=== PATIENT | male | born 1950 | race Caucasian/White ===

== ENCOUNTER 2019-06-02 17:16 | Emergency (ER) | payer MEDICARE, SELFPAY ==
[2019-06-02 17:23] VITALS: BP 137/74; PULSE 97; RESP 20; TEMP 36.9; O2SAT 98
--- NOTE | 2019-06-02 17:38 | ED.HA ---
HPI - Headache General Chief Complaint: Headache Stated Complaint: headache/chronic ear & sinus issues Time Seen by Provider: 06/02/19 17:19 Source: patient Mode of arrival: ambulatory Limitations: no limitations History of Present Illness HPI Narrative: This is a 68 year old male that presents to the ER for sinus problems x 1 month. Reports he has been on multiple antibiotics and a steroid taper for this. Reports he has seen by an ENT doctor and was offered surgery, but will have to be off of his chemotherapy for surgery. He has been trying to do Neti pots which helped at first, but are not anymore. He has been having headaches due to sinus issues. Reports he has had a left sided headache since last night. He has been taking Fioricet and ibuprofen for headaches at home with some relief. Denies fever, vision changes, vomiting, stiff neck, chest pain, shortness of breath, or cough. Related Data Home Medications Medication Instructions Recorded Confirmed cyanocobalamin (vitamin B-12) 1,000 mcg PO DAILY 01/22/19 05/18/19 1,000 mcg capsule ibrutinib 420 mg tablet 420 mg PO DAILY 01/22/19 05/18/19 fluticasone propionate 50 1 spray NASAL BID ml 02/12/19 05/18/19 mcg/actuation nasal spray,suspension ibuprofen 800 mg tablet 800 mg PO Q6H PRN 02/12/19 05/18/19 acyclovir 200 mg capsule 400 mg PO BID cap 05/13/19 05/18/19 ascorbate calcium (vitamin C) 500 500 mg PO DAILY 05/13/19 05/18/19 mg tablet cholecalciferol (vitamin D3) 100 4,000 unit PO DAILY 05/13/19 05/18/19 mcg (4,000 unit) capsule magnesium 30 mg tablet 30 mg PO DAILY 05/13/19 05/18/19 zinc 50 mg tablet 50 mg PO DAILY 05/13/19 05/18/19 Allergies Allergy/AdvReac Type Severity Reaction Status Date / Time cefuroxime Allergy Unknown Rash Verified 06/02/19 17:40 codeine Allergy Unknown Nausea Verified 07/29/18 11:42 Review of Systems Review of Systems: Narrative: CONSTITUTIONAL: Denies fever, chills ENT: Reports rhinorrhea, congestion, and otalgia. Denies sore throat CARDIOVASCULAR: Denies chest pain RESPIRATORY: Denies cough or dyspnea. All systems reviewed & are unremarkable except as noted in HPI and below PMFSH Past Medical History Medical History (Updated 06/02/19 @ 19:27 by Amie Carpenter PA-C) Acute conjunctivitis of both eyes Chronic anxiety Fatigue due to treatment Headache Major depression Mixed hyperlipidemia Otitis externa in other diseases classified elsewhere, right ear Otitis media of left ear Otitis media of right ear Tinnitus Vitamin B12 deficiency anemia Family History Family History (Updated 07/29/18 @ 11:48 by DOCTOR UNKNOWN) Father Diabetes mellitus Family history of glaucoma, Onset Age: 85 Family history of cardiovascular disease, Onset Age: 85 Mother Family history of allergic disorder, Onset Age: 84 Social History Social History Smoking status: Never smoker Alcohol intake: current Exam Narrative: Exam Narrative: GENERAL: Well-appearing, well-nourished, and in no acute distress. HEAD: Normocephalic, atraumatic. EYES: EOMI. ENT: Nares clear, no rhinorrhea or epistaxis. Mucous membranes moist. Oropharynx without tonsillar hypertrophy exudate or other lesions. Left TM mildly erythematous and bulging. Left external auditory canal mildly swollen and irritated. Right external auditory canal normal. Right TM with mild effusion, but light reflex is present, no erythema NECK: Supple. No adenopathy or masses. Normal ROM CHEST: Clear to auscultation. No respiratory distress. No wheezes rales or rhonchi HEART: Regular rate and rhythm. No murmur heard. Normal peripheral pulses. EXTREMITIES: Normal range of motion. No edema. SKIN: Warm, dry, no rash. NEURO: No focal deficits. Alert and oriented x3. CN II-XII grossly intact PSYCH: Normal mood and affect Course Reevaluation(s) Reevaluation #1: Patient resting in room comfortably. Reports relief of headache Date: 06/02/19 Time: 19:25 Vit
[2019-06-02] MEDS: SODIUM CHLORIDE 0.9% IV 1,000 ML 999 ML IV CONT (18:03)
[2019-06-02] MEDS: METOCLOPRAMIDE HCL INJ 10 MG/2 ML VIAL IV PUSH (18:04)
[2019-06-02 19:53] VITALS: BP 99/53; PULSE 77; RESP 16; O2SAT 97
== END 2019-06-02 19:55 | disposition home or self-care (01) ==
PROVIDERS: Emergency Provider Emergency Medicine; PCP Family Medicine
DX: H65.22 Chronic serous otitis media, left ear (principal); R51 Headache; H60.502 Unspecified acute noninfective otitis externa, left ear; F41.9 Anxiety disorder, unspecified; M32.9 Systemic lupus erythematosus, unspecified; E78.5 Hyperlipidemia, unspecified; D51.9 Vitamin B12 deficiency anemia, unspecified
CPT/HCPCS: 96361; 96374; 96375; 99284; J0131; J1100; J1200; J2765; J7030

== ENCOUNTER 2019-06-03 09:42 | Outpatient (CLI) | payer MEDICARE, SELFPAY ==
--- NOTE | ~2019-06-03 | MR_ITS ---
EXAMINATION: MR brain/brain stem wo/w con DATE: 06/03/2019 12:45 INDICATION: Otitis media, unspecified, right ear. Headache. TECHNIQUE: Magnetic resonance imaging (MRI) of the brain and brainstem was performed without and with 20 mL MultiHance intravenous contrast. Sequences included sagittal and axial T1-weighted FSE, axial diffusion-weighted FS EPI, axial T2*-weighted GRE, axial T2-weighted FLAIR Propeller, and axial T2-we ighted Propeller. Postcontrast sequences included axial and coronal T1-weighted FSE. Apparent diffusi on coefficient (ADC) maps were created. COMPARISON: Head CTA 04/23/2008, sinuses CT 02/20/2019 FINDINGS: There is no intracranial hemorrhage, acute infarction, or abnormal intracranial mass lesion . The ventricles are normal in size. There are bilateral otomastoid effusions. There is mucosal thick ening in the paranasal sinuses including complete opacification of left maxillary sinus. The orbits a re normal. IMPRESSION: 1. Normal brain. 2. Bilateral otomastoid effusions. Reviewed, dictated and finalized at location A.
[2019-06-03 12:05] LABS: Estimated Glomerular Filt Rate > 60
== END 2019-06-03 09:43 | disposition home or self-care (01) ==
PROVIDERS: PCP Family Medicine; Visit Provider Family Medicine
DX: H66.91 Otitis media, unspecified, right ear (principal); R51 Headache; R93.0 Abnormal findings on diagnostic imaging of skull and head, not elsewhere classified
CPT/HCPCS: 36415; 70553; A9577

== ENCOUNTER 2019-06-06 19:27 | Emergency (ER) | payer MEDICARE, SELFPAY ==
[2019-06-06 19:40] VITALS: BP 141/71; PULSE 102; RESP 20; TEMP 36.9; O2SAT 100
--- NOTE | 2019-06-06 19:47 | ED.EAR ---
HPI - Ear Problem General Chief complaint: Ear Stated complaint: ear infection symptoms Time Seen by Provider: 06/06/19 19:42 Source: patient Mode of arrival: ambulatory Limitations: no limitations History of Present Illness HPI Narrative: The pt is a 68 y/o male who presents to the ED c/o bilateral ear pain onset 3 weeks ago. Pt states that his pain varies typically lies on one side, but has been in both ears. Pt notes that he presented to this ED on 06/02/19. Pt states that he is on his third antibiotic without any relief. He notes he is on Clindamycin currently after being on Clindamycin and Doxycycline. The pt received an MRI from Dr. Ventura without any serious concerns, so he was recommended to an ENT. Pt states that he will be seeing Dr. Wilcox on 06/08/19. Pt reports decreased hearing, dizziness, and nasal congestion. Pt has also been taking Ibuprofen without relief. MD Complaint: ear pain Location: bilateral Relieving factors: nothing Associated symptoms ear: decreased hearing and other (Dizziness, nasal congestion) Treatment prior to arrival: other (Antibiotics, Ibuprofen) Related Data Home Medications Medication Instructions Recorded Confirmed cyanocobalamin (vitamin B-12) 1,000 mcg PO DAILY 01/22/19 05/18/19 1,000 mcg capsule ibrutinib 420 mg tablet 420 mg PO DAILY 01/22/19 05/18/19 fluticasone propionate 50 1 spray NASAL BID ml 02/12/19 05/18/19 mcg/actuation nasal spray,suspension ibuprofen 800 mg tablet 800 mg PO Q6H PRN 02/12/19 05/18/19 acyclovir 200 mg capsule 400 mg PO BID cap 05/13/19 05/18/19 ascorbate calcium (vitamin C) 500 500 mg PO DAILY 05/13/19 05/18/19 mg tablet cholecalciferol (vitamin D3) 100 4,000 unit PO DAILY 05/13/19 05/18/19 mcg (4,000 unit) capsule magnesium 30 mg tablet 30 mg PO DAILY 05/13/19 05/18/19 zinc 50 mg tablet 50 mg PO DAILY 05/13/19 05/18/19 Allergies Allergy/AdvReac Type Severity Reaction Status Date / Time cefuroxime Allergy Unknown Rash Verified 06/02/19 17:40 codeine Allergy Unknown Nausea Verified 07/29/18 11:42 Review of Systems Review of Systems: All systems reviewed & are unremarkable except as noted in HPI and below ENT: Reports nasal congestion and Reports other (Decreased hearing, bilateral ear pain) Neurologic: Reports dizziness PMFSH Past Medical History Medical History (Updated 06/06/19 @ 21:28 by Jared Wong MD) Acute conjunctivitis of both eyes Chronic anxiety Fatigue due to treatment Headache Major depression Mixed hyperlipidemia Otitis externa in other diseases classified elsewhere, right ear Otitis media of left ear Otitis media of right ear Tinnitus Vitamin B12 deficiency anemia Surgical History Surgical History (Updated 06/06/19 @ 19:53 by Denilson Ledesma) History of cholecystectomy S/P cervical spinal fusion Family History Family History (Updated 07/29/18 @ 11:48 by DOCTOR UNKNOWN) Father Diabetes mellitus Family history of glaucoma, Onset Age: 85 Family history of cardiovascular disease, Onset Age: 85 Mother Family history of allergic disorder, Onset Age: 84 Social History Social History Smoking status: Never smoker Alcohol intake: current Gender identity (if verbalized by the patient): Male Comments PCP: Dr. Ventura Exam Narrative: Exam Narrative: GENERAL: Uncomfortable-appearing, well-nourished, and in no acute distress. HEAD: Normocephalic, atraumatic. ENT: Mucous membranes moist. Bilateral tympanic membranes inflamed with purulent material behind the right tympanic membrane. No perforation or drainage. The auditory canal is free of debris. External ear appears normal. No tenderness over the mastoids bilaterally. No redness overlying the mastoids. NECK: Anterior cervical lymphadenopathy at the angle of the mandible bilaterally. NEURO: No facial droop. Alert and oriented x3. PSYCH: Normal mood and affect. Course Consultations Consultation #1:
[2019-06-06] MEDS: MORPHINE SULFATE 4 MG/ML INJ IM (20:06)
[2019-06-06 21:09] VITALS: BP 120/64; PULSE 96; RESP 18; O2SAT 98
[2019-06-06] MEDS: predniSONE 20 MG TABLET 60 MG PO (21:52)
[2019-06-06 21:53] VITALS: BP 138/72; PULSE 78; RESP 20; O2SAT 99
== END 2019-06-06 22:04 | disposition home or self-care (01) ==
PROVIDERS: Emergency Provider Emergency Medicine; PCP Family Medicine
DX: H66.93 Otitis media, unspecified, bilateral (principal); E78.2 Mixed hyperlipidemia; D51.9 Vitamin B12 deficiency anemia, unspecified; Z98.1 Arthrodesis status
CPT/HCPCS: 96372; 99283; A9270; J2270; J7512

== ENCOUNTER → 2020-04-12 08:36 | Outpatient (CLI) | payer MEDICARE, SELFPAY ==
[2020-04-13 18:18] LABS: SARS-CoV-2 RNA PCR Negative
== END ==
PROVIDERS: PCP Family Medicine; Visit Provider Family Medicine
DX: Z20.822 Contact with and (suspected) exposure to COVID-19 (principal); J01.90 Acute sinusitis, unspecified
CPT/HCPCS: C9803; U0003; U0005

== ENCOUNTER → 2020-12-08 02:52 | Outpatient (CLI) | payer MEDICARE, SELFPAY ==
[2020-12-08 17:37] LABS: SARS-CoV-2 RNA PCR Negative
== END ==
PROVIDERS: PCP Family Medicine; Visit Provider Family Medicine
DX: Z20.822 Contact with and (suspected) exposure to COVID-19 (principal)
CPT/HCPCS: C9803; U0003; U0005

== ENCOUNTER → 2021-03-08 07:27 | Outpatient (CLI) | payer MEDICARE, SELFPAY ==
[2021-03-09 14:36] LABS: SARS-CoV-2 RNA PCR Negative
== END ==
PROVIDERS: PCP Family Medicine; Visit Provider Family Medicine
DX: J02.9 Acute pharyngitis, unspecified (principal); Z20.822 Contact with and (suspected) exposure to COVID-19
CPT/HCPCS: C9803; U0003; U0005

== ENCOUNTER → 2022-01-23 18:31 | Outpatient (CLI) | payer MEDICARE, SELFPAY ==
--- NOTE | ~2022-01-23 | XR_ITS ---
XR chest 2V 01/23/2022 18:43 Indication: Acute bronchitis Procedure: 2 view chest Comparison: 08/12/2018 Findings: Heart size normal. There is chronic lingular atelectasis/scarring. There are calcified righ t hilar lymph nodes consistent with chronic granulomatous disease. No acute focal pneumonia, edema or pneumothorax. No acute osseous abnormality. Impression: 1: No acute cardiopulmonary disease. Reviewed, dictated and finalized at location B. 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
== END ==
LOC: EXPTROY 18:30 → EXPTRAD 18:32
PROVIDERS: PCP Family Medicine; Visit Provider Family Medicine
DX: J20.9 Acute bronchitis, unspecified (principal)
CPT/HCPCS: 71046

== ENCOUNTER 2022-08-13 15:07 | Outpatient (CLI) | payer MEDICARE, SELFPAY ==
--- NOTE | ~2022-08-13 | XR_ITS ---
XR lumbar spine min 4V 08/13/2022 15:55 Indication: Back pain Procedure: 5 views of the lumbar spine Comparison: No prior studies for comparison. Findings: There is disc narrowing at all lumbar levels. Vertebral body heights are maintained. There is advanced facet hypertrophy of the mid and lower lumbar spine. There are bilateral renal stones, la rgest in the left kidney measuring approximately 3.2 cm. There is atherosclerosis of the aorta. No ev idence for spondylolisthesis. There are cholecystectomy clips. There is mild dextroscoliosis. Impression: 1: Moderate-severe lumbar spondylosis. 2: Bilateral nephrolithiasis. Reviewed, dictated and finalized at location L. Impression: 1: Moderate-severe lumbar spondylosis. 2: Bilateral nephrolithiasis.
== END 2022-08-13 15:08 | disposition home or self-care (01) ==
PROVIDERS: PCP Family Medicine; Visit Provider Family Medicine
DX: M47.816 Spondylosis without myelopathy or radiculopathy, lumbar region (principal); M54.41 Lumbago with sciatica, right side; G89.29 Other chronic pain; N20.0 Calculus of kidney
CPT/HCPCS: 72110

== ENCOUNTER 2024-02-17 00:23 | Day surgery (SDC) | payer MEDICARE, SELFPAY ==
[2024-01-02 12:07] VITALS: BMI 32.4
[2024-02-10 14:25] VITALS: BMI 32.6
--- NOTE | 2024-02-17 07:42 | P.PNAN_ITS ---
Anes - Initial Pre Proc Eval Procedure: Operation Date: 02/17/24 09:00 Proposed Procedures p Screening Colonoscopy - Gómez Muniz MD Date/Time: 02/17/24 07:42 Surgeon: Gómez Muniz MD Pre Op Diagnosis: hx of colon polyps Patient Data Age: 73 Gender: M Height: 1.93 m Weight: 121.6 kg Allergies Allergy/AdvReac Type Severity Reaction Status Date / Time cefuroxime Allergy Intermediate Rash Verified 02/10/24 14:20 codeine AdvReac Intermediate Nausea Verified 02/10/24 14:20 Home Medications ?Medication ?Instructions ?Recorded ?Confirmed ?Type fluticasone propionate 50 1 spray intranasal BID PRN DRYNESS 02/12/19 02/10/24 History mcg/actuation nasal spray,suspension (Allergy Relief (fluticasone)) ibuprofen 800 mg tablet 800 mg PO Q6H PRN pain 02/12/19 02/10/24 History acyclovir 200 mg capsule 400 mg PO BID 05/13/19 02/10/24 History ascorbate calcium (vitamin C) 500 500 mg PO DAILY 05/13/19 02/10/24 History mg tablet cholecalciferol (vitamin D3) 100 4,000 unit PO DAILY 05/13/19 02/10/24 History mcg (4,000 unit) capsule acalabrutinib maleate 100 mg 100 mg PO BID 04/02/23 02/10/24 History tablet (Calquence (acalabrutinib maleate)) budesonide 0.5 mg/2 mL suspension 0.5 mg inhalation DAILY PRN Sinus 01/02/24 02/10/24 History for nebulization Symptoms levofloxacin 500 mg tablet 500 mg PO PRN PRN sinus infection 01/02/24 02/10/24 History trazodone 50 mg tablet 50 mg PO HS 01/02/24 02/10/24 History zinc 50 mg tablet 50 mg PO DAILY 01/02/24 02/10/24 History tamsulosin 0.4 mg capsule (Flomax) 0.4 mg PO QHS #30 caps 02/11/24 Rx Patient hx anesthesia problems: none Family hx anesthesia problems: none Results Review: All pre-operative results and documents have been reviewed as part of the pre-operative evaluation. FOR[facility]LY [facility], [facility] Past Medical History Medical History Bilateral otitis media Recurrent sinusitis Encounter for prostate cancer screening PSA normal at 1.09 on 03/09/2023. Chronic bilateral low back pain with right-sided sciatica Chronic lymphocytic leukemia WBC 10.8 on 03/09/2023. WBC 10.0, hemoglobin 14.7, platelets 171 on 10/12/2023. Cellulitis of left thigh Eczema of both hands BPH without obstruction/lower urinary tract symptoms PSA 2.1 on 07/16/2020. PSA 1.55 on 02/06/2022. Encounter for hepatitis C screening test for low risk patient (02/06/22) Hepatitis-C screening was negative on 02/06/2022. Obesity (BMI 30.0-34.9) BMI 34.0-34.9,adult Acute bronchitis Chest x-ray on 01/23/2022 revealed chronic lingular atelectasis or scarring with chronic calcified hilar lymph nodes on the right from chronic granulomatous disease. COVID-19 (09/03/21) tested positive 09/06/2021 Pharyngitis BMI 37.0-37.9, adult Insomnia Low serum IgG for age IgG level as 721 On 09/12/2019 after 6 cycles of infusions with last dose on 08/08/2023. Microscopic hematuria trace blood on urinalysis 12/17/2020. Trace blood with 3-10 RBCs on urinalysis 03/09/2023. Urinalysis normal on 10/12/2023. Chronic left shoulder pain Chronic low back pain without sciatica Abnormal fasting glucose fasting glucose 123 with hemoglobin A1c 5.9 on 12/17/2020. Glucose 98 with hemoglobin A1c 6.0 on 02/06/2022. Glucose 113 with hemoglobin A1c 5.7 on 07/25/2022. Fasting glucose 114 with hemoglobin A1c 5.5 on 03/09/2023. Fasting glucose 120 with hemoglobin A1c 5.9 and urine microalbumin negative on 10/12/2023. Polyp of colon Colon polyp [facility] February, with recheck in 3 years BMI 36.0-36.9,adult Hypogonadism male total testosterone 301 with free testosterone normal at 66.3 on 12/17/2020 Male erectile dysfunction, unspecified Exposure to COVID-19 virus Otitis externa in other diseases classified elsewhere, right ear Headache Tinnitus Chronic anxiety Major depression Otitis media of right ear Acute conjunctivitis of both eyes Mixed hyperlipidemia Total cholesterol 151, triglycerides 93, HDL low at 36 and LDL normal at 96 on 02/06/2022. Total cholesterol 144, triglycerides 86, HDL 36, LDL 90 with ratio 4.0 on 07/25/2022. Cholesterol 158, triglycerides 82, HDL 38, LDL 103 with ratio 4.2 on 03/09/2023. Cholesterol 155, triglycerides 89, HDL 34, LDL 103 with ratio 4.6 on 10/12/2023. Vitamin B12 deficiency anemia Level 686 on 02/06/2022. Level normal at 450 with hemoglobin 14.9 on 03/09/2023. Level low at 341 with hemoglobin 14.7 on 10/12/2023. 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 Surgical History Surgical History S/P cervical spinal fusion History of cholecystectomy Family History Family History Father Diabetes mellitus Family history of glaucoma, Onset Age: 85 Family history of cardiovascular disease, Onset Age: 85 Mother Family history of allergic disorder, Onset Age: 84 Social History Social History Smoking packs per day: 1 Smoking cigarettes per day: 20.0 Years smoked: 25 Smoking pack-years: 25.00 Smoking status: Former smoker Tobacco type: cigarettes Alcohol intake: former Alcohol use details: 6 pk per month Substance use: former Substance use type: does not use Lack of Transportation: No Lack of Food: Never True Current Housing: I Have Housing Concerned About Future Housing: No Difficulty Paying Gas/Electric Bills: No Difficulty Paying for Meds: No Currently Unemployed: No Education: Trade/Vocational Certificate Difficulty w/ Childcare or Family Care: No Living arrangements: with family Gender identity (if verbalized by the patient): Male Spiritual care concerns: No Anes - Eval Final PreProcedure Day of Procedure 02/17/24 07:42 Results Review: All pre-operative results and documents have been reviewed as part of the pre- operative evaluation. Informed Consent: The patient's anesthetic plan and its attendant risks and benefits were discussed with the patient/family/POA. Questions were solicited and answers provided to the satisfaction of the patient/family/POA.
[2024-02-17 08:15] VITALS: BP 115/62; PULSE 79; RESP 18; TEMP 35.7; O2SAT 97
[2024-02-17] MEDS: LACTATED RINGERS 1,000 ML 150 ML IV CONT (08:26)
--- NOTE | 2024-02-17 08:30 | WPDANESEPPF ---
Anes - Initial Pre Proc Eval Procedure: Operation Date: 02/17/24 09:00 Proposed Procedures p Screening Colonoscopy - Gómez Muniz MD Date/Time: 02/17/24 08:30 Surgeon: Gómez Muniz MD Pre Op Diagnosis: hx of colon polyps Patient Data Age: 73 Gender: M Height: 1.93 m Weight: 120.4 kg Last Vital Signs Temp 35.7 C L 02/17/24 08:15 Pulse 79 02/17/24 08:15 Resp 18 02/17/24 08:15 BP 115/62 02/17/24 08:15 Pulse Ox 97 02/17/24 08:15 O2 Del Method Room Air 02/17/24 08:15 Allergies Allergy/AdvReac Type Severity Reaction Status Date / Time cefuroxime Allergy Intermediate Rash Verified 02/17/24 08:13 codeine AdvReac Intermediate Nausea Verified 02/17/24 08:13 Home Medications ?Medication ?Instructions ?Recorded ?Confirmed ?Type fluticasone propionate 50 1 spray intranasal BID PRN DRYNESS 02/12/19 02/17/24 History mcg/actuation nasal spray,suspension (Allergy Relief (fluticasone)) ibuprofen 800 mg tablet 800 mg PO Q6H PRN pain 02/12/19 02/17/24 History acyclovir 200 mg capsule 400 mg PO BID 05/13/19 02/17/24 History ascorbate calcium (vitamin C) 500 500 mg PO DAILY 05/13/19 02/17/24 History mg tablet cholecalciferol (vitamin D3) 100 4,000 unit PO DAILY 05/13/19 02/17/24 History mcg (4,000 unit) capsule acalabrutinib maleate 100 mg 100 mg PO BID 04/02/23 02/17/24 History tablet (Calquence (acalabrutinib maleate)) budesonide 0.5 mg/2 mL suspension 0.5 mg inhalation DAILY PRN Sinus 01/02/24 02/17/24 History for nebulization Symptoms levofloxacin 500 mg tablet 500 mg PO PRN PRN sinus infection 01/02/24 02/10/24 History trazodone 50 mg tablet 50 mg PO HS 01/02/24 02/17/24 History zinc 50 mg tablet 50 mg PO DAILY 01/02/24 02/17/24 History tamsulosin 0.4 mg capsule (Flomax) 0.4 mg PO QHS #30 caps 02/11/24 02/17/24 Rx Patient hx anesthesia problems: none Family hx anesthesia problems: none Results Review: All pre-operative results and documents have been reviewed as part of the pre-operative evaluation. [facility] Past Medical History Medical History Bilateral otitis media Recurrent sinusitis Encounter for prostate cancer screening PSA normal at 1.09 on 03/09/2023. Chronic bilateral low back pain with right-sided sciatica Chronic lymphocytic leukemia WBC 10.8 on 03/09/2023. WBC 10.0, hemoglobin 14.7, platelets 171 on 10/12/2023. Cellulitis of left thigh Eczema of both hands BPH without obstruction/lower urinary tract symptoms PSA 2.1 on 07/16/2020. PSA 1.55 on 02/06/2022. Encounter for hepatitis C screening test for low risk patient (02/06/22) Hepatitis-C screening was negative on 02/06/2022. Obesity (BMI 30.0-34.9) BMI 34.0-34.9,adult Acute bronchitis Chest x-ray on 01/23/2022 revealed chronic lingular atelectasis or scarring with chronic calcified hilar lymph nodes on the right from chronic granulomatous disease. COVID-19 (09/03/21) tested positive 09/06/2021 Pharyngitis BMI 37.0-37.9, adult Insomnia Low serum IgG for age IgG level as 721 On 09/12/2019 after 6 cycles of infusions with last dose on 08/08/2023. Microscopic hematuria trace blood on urinalysis 12/17/2020. Trace blood with 3-10 RBCs on urinalysis 03/09/2023. Urinalysis normal on 10/12/2023. Chronic left shoulder pain Chronic low back pain without sciatica Abnormal fasting glucose fasting glucose 123 with hemoglobin A1c 5.9 on 12/17/2020. Glucose 98 with hemoglobin A1c 6.0 on 02/06/2022. Glucose 113 with hemoglobin A1c 5.7 on 07/25/2022. Fasting glucose 114 with hemoglobin A1c 5.5 on 03/09/2023. Fasting glucose 120 with hemoglobin A1c 5.9 and urine microalbumin negative on 10/12/2023. Polyp of colon Colon polyp [facility] February, with recheck in 3 years BMI 36.0-36.9,adult Hypogonadism male total testosterone 301 with free testosterone normal at 66.3 on 12/17/2020 Male erectile dysfunction, unspecified Exposure to COVID-19 virus Otitis externa in other diseases classified elsewhere, right ear Headache Tinnitus Chronic anxiety Major depression Otitis media of right ear Acute conjunctivitis of both eyes Mixed hyperlipidemia Total cholesterol 151, triglycerides 93, HDL low at 36 and LDL normal at 96 on 02/06/2022. Total cholesterol 144, triglycerides 86, HDL 36, LDL 90 with ratio 4.0 on 07/25/2022. Cholesterol 158, triglycerides 82, HDL 38, LDL 103 with ratio 4.2 on 03/09/2023. Cholesterol 155, triglycerides 89, HDL 34, LDL 103 with ratio 4.6 on 10/12/2023. Vitamin B12 deficiency anemia Level 686 on 02/06/2022. Level normal at 450 with hemoglobin 14.9 on 03/09/2023. Level low at 341 with hemoglobin 14.7 on 10/12/2023. 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 Surgical History Surgical History S/P cervical spinal fusion History of cholecystectomy Family History Family History Father Diabetes mellitus Family history of glaucoma, Onset Age: 85 Family history of cardiovascular disease, Onset Age: 85 Mother Family history of allergic disorder, Onset Age: 84 Social History Social History Smoking packs per day: 1 Smoking cigarettes per day: 20.0 Years smoked: 25 Smoking pack-years: 25.00 Smoking status: Former smoker Tobacco type: cigarettes Alcohol intake: former Alcohol use details: 6 pk per month Substance use: former Substance use type: does not use Lack of Transportation: No Lack of Food: Never True Current Housing: I Have Housing Concerned About Future Housing: No Difficulty Paying Gas/Electric Bills: No Difficulty Paying for Meds: No Currently Unemployed: No Education: Trade/Vocational Certificate Difficulty w/ Childcare or Family Care: No Living arrangements: with family Gender identity (if verbalized by the patient): Male Spiritual care concerns: No Anes - Eval Final PreProcedure Day of Procedure 02/17/24 08:30 Patient weight: obese Heart: regular rate and rhythm Lungs: clear to auscultation Airway: Mallampati scale class II Neurological: alert and oriented Last oral intake: >/= 8 hours ASA classification: III Emergent: no Anesthetic plan: proceed Anesthesia type and monitoring: general GIVS and standard monitoring Results Review: All pre-operative results and documents have been reviewed as part of the pre-operative evaluation. Informed Consent: The patient's anesthetic plan and its attendant risks and benefits were discussed with the patient/family/POA. Questions were solicited and answers provided to the satisfaction of the patient/family/POA.
--- NOTE | 2024-02-17 08:51 | P.HP_ITS ---
H&P: HPI History of Present Illness Date/Time: 02/17/24 08:51 Chief Complaint: history of colon polyps Narrative: The patient has a history of colonic polyps, the last colonoscopy was in 2017. He has been dealing with lymphoma for several years, receiving intravenous immuneglobulin IV and acalabrutinib by oncology. Review of Systems Review of Systems: All systems reviewed & are unremarkable except as noted in HPI and below [facility] Past Medical History Medical History Bilateral otitis media Recurrent sinusitis Encounter for prostate cancer screening PSA normal at 1.09 on 03/09/2023. Chronic bilateral low back pain with right-sided sciatica Chronic lymphocytic leukemia WBC 10.8 on 03/09/2023. WBC 10.0, hemoglobin 14.7, platelets 171 on 10/12/2023. Cellulitis of left thigh Eczema of both hands BPH without obstruction/lower urinary tract symptoms PSA 2.1 on 07/16/2020. PSA 1.55 on 02/06/2022. Encounter for hepatitis C screening test for low risk patient (02/06/22) Hepatitis-C screening was negative on 02/06/2022. Obesity (BMI 30.0-34.9) BMI 34.0-34.9,adult Acute bronchitis Chest x-ray on 01/23/2022 revealed chronic lingular atelectasis or scarring with chronic calcified hilar lymph nodes on the right from chronic granulomatous disease. COVID-19 (09/03/21) tested positive 09/06/2021 Pharyngitis BMI 37.0-37.9, adult Insomnia Low serum IgG for age IgG level as 721 On 09/12/2019 after 6 cycles of infusions with last dose on 08/08/2023. Microscopic hematuria trace blood on urinalysis 12/17/2020. Trace blood with 3-10 RBCs on urinalysis 03/09/2023. Urinalysis normal on 10/12/2023. Chronic left shoulder pain Chronic low back pain without sciatica Abnormal fasting glucose fasting glucose 123 with hemoglobin A1c 5.9 on 12/17/2020. Glucose 98 with hemoglobin A1c 6.0 on 02/06/2022. Glucose 113 with hemoglobin A1c 5.7 on 07/25/2022. Fasting glucose 114 with hemoglobin A1c 5.5 on 03/09/2023. Fasting glucose 120 with hemoglobin A1c 5.9 and urine microalbumin negative on 10/12/2023. Polyp of colon Colon polyp [facility] February, with recheck in 3 years BMI 36.0-36.9,adult Hypogonadism male total testosterone 301 with free testosterone normal at 66.3 on 12/17/2020 Male erectile dysfunction, unspecified Exposure to COVID-19 virus Otitis externa in other diseases classified elsewhere, right ear Headache Tinnitus Chronic anxiety Major depression Otitis media of right ear Acute conjunctivitis of both eyes Mixed hyperlipidemia Total cholesterol 151, triglycerides 93, HDL low at 36 and LDL normal at 96 on 02/06/2022. Total cholesterol 144, triglycerides 86, HDL 36, LDL 90 with ratio 4.0 on 07/25/2022. Cholesterol 158, triglycerides 82, HDL 38, LDL 103 with ratio 4.2 on 03/09/2023. Cholesterol 155, triglycerides 89, HDL 34, LDL 103 with ratio 4.6 on 10/12/2023. Vitamin B12 deficiency anemia Level 686 on 02/06/2022. Level normal at 450 with hemoglobin 14.9 on 03/09/2023. Level low at 341 with hemoglobin 14.7 on 10/12/2023. 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 Surgical History Surgical History S/P cervical spinal fusion History of cholecystectomy Family History Family History Father Diabetes mellitus Family history of glaucoma, Onset Age: 85 Family history of cardiovascular disease, Onset Age: 85 Mother Family history of allergic disorder, Onset Age: 84 Social History Social History Smoking packs per day: 1 Smoking cigarettes per day: 20.0 Years smoked: 25 Smoking pack-years: 25.00 Smoking status: Former smoker Tobacco type: cigarettes Alcohol intake: former Alcohol use details: 6 pk per month Substance use: former Substance use type: does not use Lack of Transportation: No Lack of Food: Never True Current Housing: I Have Housing Concerned About Future Housing: No Difficulty Paying Gas/Electric Bills: No Difficulty Paying for Meds: No Currently Unemployed: No Education: Trade/Vocational Certificate Difficulty w/ Childcare or Family Care: No Living arrangements: with family Gender identity (if verbalized by the patient): Male Spiritual care concerns: No Meds Home Medications and Allergies Home Medications ?Medication ?Instructions ?Recorded ?Confirmed ?Type fluticasone propionate 50 1 spray intranasal BID PRN DRYNESS 02/12/19 02/17/24 History mcg/actuation nasal spray,suspension (Allergy Relief (fluticasone)) ibuprofen 800 mg tablet 800 mg PO Q6H PRN pain 02/12/19 02/17/24 History acyclovir 200 mg capsule 400 mg PO BID 05/13/19 02/17/24 History ascorbate calcium (vitamin C) 500 500 mg PO DAILY 05/13/19 02/17/24 History mg tablet cholecalciferol (vitamin D3) 100 4,000 unit PO DAILY 05/13/19 02/17/24 History mcg (4,000 unit) capsule acalabrutinib maleate 100 mg 100 mg PO BID 04/02/23 02/17/24 History tablet (Calquence (acalabrutinib maleate)) budesonide 0.5 mg/2 mL suspension 0.5 mg inhalation DAILY PRN Sinus 01/02/24 02/17/24 History for nebulization Symptoms levofloxacin 500 mg tablet 500 mg PO PRN PRN sinus infection 01/02/24 02/10/24 History trazodone 50 mg tablet 50 mg PO HS 01/02/24 02/17/24 History zinc 50 mg tablet 50 mg PO DAILY 01/02/24 02/17/24 History tamsulosin 0.4 mg capsule (Flomax) 0.4 mg PO QHS #30 caps 02/11/24 02/17/24 Rx Allergies Allergy/AdvReac Type Severity Reaction Status Date / Time cefuroxime Allergy Intermediate Rash Verified 02/17/24 08:13 codeine AdvReac Intermediate Nausea Verified 02/17/24 08:13 Vital Signs Vital Signs - 24 hr 02/17/24 08:15 Temperature 96.3 F L Pulse Rate 79 Respiratory Rate 18 Blood Pressure 115/62 Pulse Oximetry 97 Oxygen Delivery Room Air Exam Const: General: cooperative and healthy appearing Resp: Effort & Inspection: normal respiratory effort and able to speak in complete sentences Auscultation: clear to auscultation bilaterally Cardio: Rate: regular rate Rhythm: regular rhythm GI: Inspection: normal to inspection GI Palp: No No hepatosplenomegaly present Auscultation: normal bowel sounds Rectal Exam: deferred Skin: General skin exam: normal color Psych: Appearance: grossly normal Mental Status: mental status grossly normal Assessment and Plan Assessment and plan (1) Polyp of colon: Qualifiers: Colon polyp type: unspecified Colon location: unspecified part of colon Qualified Code(s): K63.5 - Polyp of colon Code(s): K63.5 - Polyp of colon Status: Acute Assessment and Plan: The patient is deemed a good candidate for the procedure. Consent signed. Will proceed.
[2024-02-17 09:23] VITALS: BP 100/65; PULSE 78; RESP 22; O2SAT 94
[2024-02-17 09:33] VITALS: BP 105/67; PULSE 78; RESP 17; O2SAT 95
[2024-02-17 09:43] VITALS: BP 117/75; PULSE 787; RESP 17; O2SAT 98
--- OUTSIDE RECORDS SUMMARY | 2024-02-22 08:26 | XMS_ITS | Encounter Summary ---
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 Pt states also has congestion x 2 weeks Encounter Details Date Type Department Care Team (Late st Contact Info) Description 11/02/2013 11:56 AM CDT - 11/02/2013 12:52 PM CDT Emergency ER at [address] [address] Left wrist sprain, initial encounter Discharge Disposition: Home or Self Care Social History Tobacco Use Types Packs/Day Years Used Date Smoking Tobacco: Never Alcohol Use Standard Drinks/Week Comments No 0 (1 standard drink = 0.6 oz pur e alcohol) Sex and Gender Information Value Date Recorded Sex Assigned at Not on file Gender Identity Not on file Sexual Orientation Not on file documented as of this encounter Last Filed Vital Signs Vital Sign Reading Time Taken Comments Blood Pressure 144/90 11/02/2013 12:42 PM CDT Pulse 80 11/02/2013 12:42 PM CDT Temperature 36.8 ??C (98.2 ??F) 11/02/2013 11:47 AM C DT Respiratory Rate 15 11/02/2013 12:42 PM CDT Oxygen Saturation 98% 11/02/2013 12:42 PM CDT Inhaled Oxygen Concentration - - Weight 145.2 kg (320 lb) 11/02/2013 11:47 AM CDT Height 193 cm (6' 4 ) 11/02/2013 11:47 AM CDT Body Mass Index 38.95 11/02/2013 11:47 AM CDT documented in this encounter Discharge Instructions * Discharge Instructions* Saravanan Mayes PA - 11/02/2013 12:31 PM CDT Images from the original note were not included. Joint Sprain A sprain is a tear or stretch in the ligaments that hold a joint together. Severe sprains may need as long as 3-6 weeks of immobilization and/or exercises to heal completely. Sprained joints should be rested and protected. If not, they can become unstable and prone to re-injury. Proper treatment can reduce your pain, shorten the period of disability, and reduce the risk of repeated injuries. TREATMENT ?? Rest and elevate the injured joint to reduce pain and swelling. ?? Apply ice packs to the injury for 20-30 minutes every 2-3 hours for the next 2-3 days. ?? Keep the injury wrapped in a compression bandage or splint as long as the joint is painful or asinstructed by your caregiver. ?? Do not use the injured joint until it is completely healed to prevent re- injury and chronic instability. Follow the instructions of your caregiver. ?? Long-term sprain management may require exercises and/or treatment by a physical therapist. Taping or special braces may help stabilize the joint until it is completely better. SEEK MEDICAL CARE IF: ?? You develop increased pain or swelling of the joint. ?? You develop increasing redness and warmth of the joint. ?? You develop a fever. ?? It becomes stiff. ?? Your hand or foot gets cold or numb. Document Released: 03/28/2005 Document Revised: 05/12/2012 Document Reviewed: 03/07/2009 ExitCare?? Patient Information ??2014 [employer]. Wrist Pain Wrist injuries are frequent in adults and children. A sprain is an injury to the ligaments that hold your bones together. A strain is an injury to muscle or muscle cord-like structures (tendons) fromstretching or pulling. Generally, when wrists are moderately tender to touch following a fall or injury, a break in the bone (fracture) may be present. Most wrist sprains or strains are better in 3 to 5 days, but complete healing may take several weeks. HOME CARE INSTRUCTIONS ?? Put ice on the injured area. ?? Put ice in a plastic bag. ?? Place a towel between your skin and the bag. ?? Leave the ice on for 15-20 minutes, 3-4 times a day, for the first 2 days. ?? Keep your arm raised above the level of your heart whenever possible to reduce swelling and pain. ?? Rest the injured area for at least 48 hours or as directed by your caregiver. ?? If a splint or elastic bandage has been applied, use it for as long as directed by your caregiver or until seen by a caregiver for a follow-up exam. ?? Only take [id number] or prescription medicines for pain, discomfort, or fever as directed by your caregiver. ?? Keep all follow-up appointments. You may need to follow up with a specialist or have follow-up X-rays. Improvement in pain level is not a guarantee that you did not fracture a bone in your wrist. The only way to determine whether or not you have a broken bone is by X-ray. SEEK IMMEDIATE MEDICAL CARE IF: ?? Your fingers are swollen, very red, white, or cold and blue. ?? Your fingers are numb or tingling. ?? You have increasing pain. ?? You have difficulty moving your fingers. MAKE SURE YOU: ?? Understand these instructions. ?? Will watch your condition. ?? Will get help right away if you are not doing well or get worse. Document Released: 11/28/2005 Document Revised: 05/12/2012 Document Reviewed: 04/11/2011 ExitCare?? Patient Information ??2013 [employer]. documented in this encounter ED Notes * Saravanan Mayes PA - 11/02/2013 11:58 AM CDT Provider contact with the patient: 11/02/2013 11:58 Jeff Abdullahi [id number] [facility] History Chief Complaint Patient presents with ??? Fall Pt presents to ER with pain to left wrist from fall at work today. 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 States prev fx here as child. Denies numb/ting distally or any other pain or injury. Denies pain med here. Past Medical History Diagnosis Date ??? Shingles ??? Non Hodgkin's lymphoma No past surgical history on file. No family history on file. History Social History ??? Marital Status: Spouse Name: N/A Number of Children: N/A ??? Years of Education: N/A Occupational History ??? Not on file. Social History Main Topics ??? Smoking status: Never Smoker ??? Smokeless tobacco: Not on file ??? Alcohol Use: No ??? Drug Use: No ??? Sexual Activity: Not on file Other Topics Concern ??? Not on file Social History Narrative Review of Systems Review of Systems All other systems reviewed and are negative. Physical Exam BP 153/94 Pulse 83 Temp(Src) 98.2 ??F Resp 18 Ht 1.93 m (6' 4 ) Wt 145.151 kg (320 lb) BMI 38.97 kg/m2 SpO2 96% Physical Exam Constitutional: He is oriented to person, place, and time. He appears well- developed. No distress. Pulmonary/Chest: Effort normal. No respiratory distress. Musculoskeletal: He exhibits edema and tenderness (mild TTP, mild edema about left wrist only. no hand, elbow or shoulder TTP. FROm shoulder, elbow, wrist, hand. distal NVSI. kiln placer 5/5). Neurological: He is alert and oriented to person, place, and time. Skin: Skin is warm. Psychiatric: He has a normal mood and affect. Nursing note and vitals reviewed. Medications No current outpatient prescriptions on file. Procedures Procedures ECG Interpretation ECG Interpretation Lab/SPO2 Interpretation No results found for this visit on 11/02/13. XR WRIST 3+ VW LEFT Final Result: Progress Notes ED Course Xray NAD Told to wear velcro splint 3-5 d, RICE, FU ortho PRN.will need to file w/ work comp in 1 bus day, ask HR for preferred place. He agrees Medical Decision Making I have reviewed the: Nursing Notes and Vitals. I have interpreted the following results: X-Ray and Oxygen Saturation. Orders Placed This Encounter ??? SPLINT WRIST COCKUP LEFT MED ??? XR WRIST 3+ VW LEFT ??? ibuprofen (MOTRIN) tablet 600 mg Clinical Impression Final diagnoses: Fall, initial encounter Left wrist sprain, initial encounter * Judie Reyes - 11/02/2013 11:32 AM CDT Patient arrives to Emergency Department with work injury. 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 No drug screen required. No further questions or concerns at this time. Both patient and RN kept informed. documented in this encounter Plan of Treatment Not on file documented as of this encounter Procedures Procedure Name Priority Date/Time Associated Diagnosis Comments XR WRIST LEFT 3VW OR MORE STAT 11/02/2013 12:22 PM CDT Fall, initial encounter documented in this encounter Results * XR WRIST 3+ VW LEFT (11/02/2013 12:22 PM CDT) Anatomical Region Laterality Modality Wrist / Hand Radiographic Luna ging 11/02/2013 12:2 9 PM CDT Narrative 11/02/2013 12:30 PM CDT 3 views left wrist Indication: Left wrist pain. Recent injury. Findings: There are subchondral cysts within the distal pole of the scaphoid. There is a small corticated ossific density within the ulnar sided soft tissues compatible with sequela of remote injury. There is no acute fracture or malalignment. Procedure Note Zainab Borrego MD - 11/02/2013 3 views left wrist Indication: Left wrist pain. Recent injury. Findings: There are subchondral cysts within the distal pole of the scaphoid. There is a small corticated ossific density within the ulnar sided soft tissues compatible with sequela of remote injury. There is no acute fracture or malalignment. Jaycob Castanon MD DIAGNOSTIC IMAGING O RDERABLES documented in this encounter Visit Diagnoses Diagnosis Fall, initial encounter Left wrist sprain, initial encounter documented in this encounter Administered Medications Inactive Administered Medications - up to 3 most recent administrations Medication Order MAR Action Action Date Dose Rate Site ibuprofen (MOTRIN) tablet 600 mg 600 mg, Oral, ONCE, 1 dose, On 11/02/13 at 1300, Maximum allowable amount = 3200 mg / 24 hours. $ Given 11/02/2013 12:47 PM CDT 600 mg documented in this encounter Active and Recently Administered Medications Times are shown in CDT. Scheduled Medication Order 10/31/2013 11/01/2013 11/02/2013 ibuprofen (MOTRIN) tablet 600 mg (COMPLETED) 600 mg, Oral, ONCE, 1 dose, On Sat11/02/13 at 1300, Maximum allowable amount = 3200 mg / 24 hours. 1247 ($ Given - Prov ider: Ricardo White RN) documented in this encounter
--- OUTSIDE RECORDS SUMMARY | 2024-02-22 08:26 | XMS_ITS | Patient Health Summary ---
Author Organization [facility] Address [address] 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 This disclosure is being madepursuant to the Care Everywhere program and may not contain all information available regarding this patient. Last updated 17.[facility] Allergies * Codeine Social History Tobacco Use Types Packs/Day Years Used Date Smoking Tobacco: Never Alcohol Use Standard Drinks/Week Comments No 0 (1 standard drink = 0.6 oz pur e alcohol) Sex and Gender Information Value Date Recorded Sex Assigned at Not on file Gender Identity Not on file Sexual Orientation Not on file Last Filed Vital Signs Vital Sign Reading [...] Mass Index 38.95 11/02/2013 11:47 AM CDT Procedures * XR WRIST LEFT 3VW OR MORE(Performed 11/02/2013) Performed for Fall, initial encounter Results * XR WRIST 3+ VW [...]
--- OUTSIDE RECORDS SUMMARY | 2024-02-22 08:26 | XMS_ITS | Referral Summary ---
Author Organization [facility] Address [address] 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 This disclosure is being madepursuant to the Care Everywhere program and may not contain all information available regarding this patient. Last updated 17.[facility] [employer] Allergies Active Allergy Reactions Criticality Noted Date Comments Codeine 11/02/2013 Social History Tobacco Use Types Packs/Day Years [...] Mass Index 38.95 11/02/2013 11:47 AM CDT Plan of Treatment Not on file [id number] Workers Comp Employer [address] [place] [address] Jeff Abdullahi Personal/Famil y Self 1950 [address] [place] [address]
--- OUTSIDE RECORDS SUMMARY | 2024-02-22 08:26 | XMS_ITS | Clinical Summary ---
Author Organization [facility] [employer] Address [address] [place] [address] Care Team Providers Care Policewoman Name Role Phone Unavailable Primary Care Provider Unavailabl e Source Comments [facility],non-owned Affiliates and Associated Physician Practices is amultiple site organization consisting of ambulatory clinics and hospital sitesin [place], [place], [place] and [place]. This disclosure is being madepursuant to the Care Everywhere program and may not contain all information available regarding this patient. Last updated 17.[facility] [employer] Allergies Active Allergy Reactions Criticality Noted Date [...] 11/02/2013 11:47 AM CDT Plan of Treatment Health Maintenance Due Date Last Done Comments COLOGUARD (AGES 45-75) - COL ON CA SCREENING 1950 COLON MONITORING 1950 COLONOSCOPY - COLON CA SCREENING 1950 CT COLONOGRAPHY - COLON CA SCREENING 1950 Colorectal Cancer Screening 1950 FIT - COLON CA SCREENING 1950 FLEX SIG - COLON CA SCREENING 1950 LIPID TESTING 1950 HEPATITIS C SCREENING 08/17/1970 DTAP/TDAP/TD VACCINES (1 - Tdap) 08/22/1971 ZOSTER VACCINE (1 of 2) 2002 PNEUMOCOCCAL VACCINE 65+ (1 of 1 - PCV) 2017 DEPRESSION SCREENING 03/04/2023 COVID-19 VACCINE ( - 2023-2 5 season) 2023 INFLUENZA VACCINE (#1) 2023 Respiratory Syncytial Virus (RSV) Vaccine Pt: or over 60 yrs (1 - 1-dose 75+ series) 08/22/2027 HEPATITIS B VACCINE Aged Out No longe r eligible based on patient's age to complete this topic HIB VACCINE Aged Out No longer eligi ble based on patient's age to complete this topic HPV VACCINE Aged Out No longer eligi ble based on patient's age to complete this topic MENINGOCOCCAL VACCINE Aged Out No oriana matilde eligible based on patient's age to complete this topic [id number] Workers Comp Employer [address] [place] [address] Jeff Abdullahi Personal/Famil y Self 1950 [address] [place] [address]
--- OUTSIDE RECORDS SUMMARY | 2024-02-22 08:27 | XMS_ITS | Encounter Summary ---
Author Organization [facility] Address [address] [place] [address] Phone Care Team Providers Care Criminal Justice Program Director Name Role Phone Lenin Ventura MD Primary Care Provider [phone] Lenin Ventura MD Unavailable [phone] Burt Dos Santos MD PhD Unavailable [phone] Reason for Visit * Reason Comments Ear Drainage * Consultation (Routine) - Authorized Specialty Diagnoses / Procedures Referred By Contac t Referred To Contact Otolaryngology Diagnoses Acute sinusitis, recurrence not specified, unspecified location Lenin Ventura MD [address] [address] Phone: tel: fax: Cass Olivia MD [address] [place] [address] Phone: tel: fax: Referral ID Status Reason Start Date Expiration Date Visits Requested Visits Authorized [id number] Authorized Specialty Services Required 04/04/2023 05/03/2024 12 12 Encounter Details Date Type Department Care Team (Latest Contact Info) Description 01/06/2024 11:20 AM PHARMACIST TECHNICIAN Office Visit [facility] [address] [facility] [address] [place] [address] [place] [address] Cass Olivia MD [address] [place] [address] Otitis media with effusion, bilateral [H65.93] (Primary Dx); Mixed conductive and sensorineural hearing loss of right ear with restricted hearing of left ear Social History Tobacco Use Types Packs/Day Years Used Date Smoking Tobacco: Former Smokeless Tobacco: Never Alcohol Use Standard Drinks/Week Comments Not Currently 0 (1 standard drink = 0.6 oz pur e alcohol) Sex and Gender Information Value Date Recorded Sex Assigned at Not on file Legal Sex Male 9:45 AM PHARMACIST TECHNICIAN Gender Identity Not on file Sexual Orientation Not on file documented as of this encounter Last Filed Vital Signs Vital Sign Reading Time Taken Comments Blood Pressure - - Pulse - - Temperature - - Respiratory Rate - - Oxygen Saturation - - Inhaled Oxygen Concentration - - Weight 121.6 kg (268 lb) 01/06/2024 11:56 AM PHARMACIST TECHNICIAN Height 193 cm (6' 4 ) 01/06/2024 11:56 AM PHARMACIST TECHNICIAN Body Mass Index 32.62 01/06/2024 11:56 AM PHARMACIST TECHNICIAN documented in this encounter Progress Notes * Cass Olivia MD - 01/06/2024 11:20 AM CST Images from the original note were not included. Jeff Abdullahi was seen in consultation at the request of Dr. Ventura. Chief Complaint: follow-up Interval: The patient presents follow-up evaluation. He reports that 2 weeks ago was seen at urgent care and had otorrhea and heargin loss. He reports positional dizziness with this and feeling lightheaded. Healso had tinnitus in his head. He was started on Doxycylicine an dofloxacin. From previous: HPI: Patient returns for follow-up evaluation with bilateral T tubes. He reports mild otorrhea in the evenings from the right side but denies otorrhea from the left side. Although his audiometric evaluation as return back to baseline he reports still hearing crackling noises in the ear and feeling like he can not appreciate music well. He denies otalgia or vertigo. Past Medical/Surgical History Past Medical History: Diagnosis Date Anxiety and depression CLL (chronic lymphocytic leukemia) (HCC) Thyroid nodule 06/12/2019 Past Surgical History: Procedure Laterality Date BIOPSY LYMPH NODE SUPERFICIAL N/A 12/07/2014 CERVICAL SPINE SURGERY [address] Shaquille King at [facility] LAPAROSCOPIC CHOLECYSTECTOMY 2006 Dr. Kingsley[facility] LYMPH NODE BIOPSY 2006 Past Family/Social History Family History Problem Relation Age of Onset Heart disease Father Hypertension Father Diabetes Father Glaucoma Father Atrial fibrillation Father Coronary artery disease Father Macular degeneration Mother Hypertension Mother Anxiety disorder Mother Depression Daughter Depression Son Anxiety disorder Daughter Anxiety disorder Son Colon cancer Other Social History Socioeconomic History Marital status: Spouse name: Not on file Number of children: Not on file Years of education: Not on file Highest education level: Not on file Occupational History Not on file Social Needs Financial resource strain: Not on file Food insecurity Worry: Not on file Inability: Not on file Transportation needs Medical: Not on file Non-medical: Not on file Tobacco Use Smoking status: Former Smoker Smokeless tobacco: Never Used Substance and Sexual Activity Alcohol use: Not Currently Drug use: Never Sexual activity: Not on file Lifestyle Physical activity Days per week: Not on file Minutes per session: Not on file Stress: Not on file Relationships Social connections Talks on phone: Not on file Gets together: Not on file Attends scientologist service: Not on file Active member of club or organization: Not on file Attends meetings of clubs or organizations: Not on file Relationship status: Not on file Intimate partner violence Fear of current or ex partner: Not on file Emotionally abused: Not on file Physically abused: Not on file Forced sexual activity: Not on file Other Topics Concern Not on file Social History Narrative Merged History Encounter Medications/Allergies/Immunizations Current Outpatient Medications Medication Sig Dispense Refill acyclovir (ZOVIRAX) 200 mg capsule TAKE 2 CAPSULES(400 MG) BY MOUTH TWICE DAILY 360 capsule 3 ALPRAZolam (XANAX) 0.25 mg tablet Take 0.5-1 tablets (0.125-0.25 mg total) by mouth 3 (three) timesa day as needed for anxiety amoxicillin-clavulanate (AUGMENTIN) 875-125 mg per tablet Take 1 tablet by mouth every 12 (twelve) hours budesonide (PULMICORT) 0.5 mg/2 mL nebulizer solution Mix 1 capsule/ampule in 250 mL of saline irrigations (NeSourceLairMed Sinus Rinse Bottle) and irrigate each nostril with half of the bottle twice daily. 120 mL 6 Calquence, acalabrutinib mal, 100 mg tablet TAKE 1 TABLET (100 MG TOTAL) BY MOUTH 2 (TWO) TIMES A DAY SWALLOW WHOLE WITH WATER AND WITH OR WITHOUT FOOD 60 tablet 2 cholecalciferol (cholecalciferol) 1000 unit tablet Take 1 tablet (1,000 Units total) by mouth daily30 tablet 11 clindamycin (CLEOCIN T) 1 % lotion Apply topically 2 (two) times a day as needed (sores on hands, arms) 60 mL 3 cyanocobalamin (Vitamin B-12) 1,000 mcg tablet Take 1 tablet (1,000 mcg total) by mouth daily 30 tablet 11 fluticasone (FLONASE) 50 mcg/actuation nasal spray Administer 2 sprays into each nostril daily levoFLOXacin (LEVAQUIN) 500 mg tablet Take 1 tablet (500 mg total) by mouth daily magnesium oxide (MAG-OX) 250 mg (150.8 mg elemental) tablet Take 1 tablet (250 mg total) by mouth daily melatonin 5 mg capsule Take 5 mg by mouth nightly as needed (insomnia) 0 mupirocin (BACTROBAN) 2 % ointment Apply 1 inch of ointment to nasal irrigations 3x's daily 30 g 3 oxyCODONE (ROXICODONE) 5 mg immediate release tablet Take 1 tablet (5 mg total) by mouth every 4 (four) hours as needed for pain (abscess) for up to 10 doses 10 tablet 0 sildenafiL (VIAGRA) 100 mg tablet tamsulosin (FLOMAX) 0.4 mg extended release capsule TAKE 1 CAPSULE BY MOUTH EVERY DAY AT BEDTIME traZODone (DESYREL) 50 mg tablet Take 1 tablet (50 mg total) by mouth nightly triamcinolone (KENALOG) 0.5 % cream APPLY TOPIALLY TO RASH TWICE DAILY NEEDED FOR UP TO 2 WEEKS AT A TIME zinc 50 mg tablet Take 50 mg by mouth daily 30 each 0 No current facility-administered medications for this visit. Allergies: Cefuroxime and Codeine, Immunizations: Immunization History Administered Date(s) Administered Influenza, Quadrivalent, Cell Culture-based MDCK, Preservative Free, Antibiotic Free, [id number]/14/2019 Influenza, Quadrivalent, High Dose, Preservative Free, Intrr 10/29/2019 Influenza, Trivalent, IM (MDV) 01/29/2012 [employer] SARS-CoV-2 Monovalent Vaccination (12+ Yrs) PURPLE 05/05/2020, 05/30/2020 Review of Systems Review of Systems: Pertinent positives in HPI. Intake sheet reviewed covering a full 10-systems review of systems. Physical Exam Vital Signs: There were no vitals taken for this visit. GENERAL: Pleasant male, sitting up in NAD, normal appearance and voice. RESPIRATION: Breathing comfortably, no stridor. CV: No clubbing/cyanosis/edema in hands, RRR. HEAD AND FACE: General Inspection reveals no lesions or masses. HEENT: EARS: If the otoscope was inadequate, the otology microscope was used for improved visualization for diagnostic purposes. Microscopic visualization was used for clear magnified visualization and three-dimensional imaging of the ear for detection of any observable pathology or pathologic anatomic configuration and charaterization of the same. Right External auditory canal: normal Tympanic Membrane: Normal Middle ear: Thick serous effusion Left: External auditory canal: normal Tympanic Membrane: Normal Middle ear: Normal EYES: EOM Intact, sclera anicteric, no conjunctival injection. NOSE: External inspection of nose reveals no lesions, no masses. Inspection of nasal mucosa, septum, and turbinates is normal to anterior rhinoscopy. ORAL CAVITY/OROPHARYNX: Lips and gums are normal. Oropharynx, including the mucosa of oral cavity, hard and soft palates, tongue, and posterior pharyngeal wall showed normal symmetry without lesion and normal hydration of mucosal surfaces. NECK: Normal symmetry and overall appearance as well as tracheal position; no masses. Thyroid gland shows no tenderness or masses. NEURO: A&Ox3, Cranial nerves 2-12 intact and symmetric. Normal affect. GAIT: Normal. Myringotomy with Tympanostomy Tube Placement Diagnosis: right conductive hearing loss Procedure: Myringotomy with Tympanostomy Tube placement Tube Type: Collar Button Procedure: After a discussion of treatment options including observation, medical therapy, or surgical therapy in the form of myringotomy with tympanostomy tube placement, the patient elected to proceed with surgical therapy. The patient was placed in supine position. The microscope was brought into position. The posterior-inferior tympanic membrane was selectively anesthesized with phenol solution. A myringotomy blade was used to make a radial incision. The tympanostomy tube was placed. The middle ear space was suctioned and antibiotic drops were placed, followed by a cotton ball. The patient tolerated the procedure well. Diagnostics reviewed: Audiometric evaluation reviewed and consistent with bilateral mixed hearing loss 06/2023 CT scan reviewed relatively unremarkable sinuses and mastoids. ASSESSMENT/PLAN 68 year old male returns to clinic with history of CLL and for evaluation of bilateral otitis mediawith effusion with associated mixed hearing loss. We discussed treatment options including observation, medical therapy in the form of oral steroids, or surgical therapy in the form of myringotomy with or without tympanostomy tube placement. We also discussed the risk of these treatments and the patient elected to proceed with right tympanostomy tube placement. He does have a mixed serous and viscous middle ear effusion. He will use ofloxacin drops for 3 days. I will see him back in 3 months repeat audiogram or sooner if they are symptom progression. The note in its entirety has been confirmed by me, the attending physician. Parts of the note were initially recorded by my staff. I have seen and examined the patient, and was present for the entireservice/procedures performed. I agree with the findings and plan of care as initially documented inthe resident's/fellow's note and edited by me. Cass Olivia M.D. Otology and Neurotology Department of Otolaryngology [email or web address] Office: Clinic: This note was created in part with the assistance of [employer] voice recognition software. Services Mgr variances may occur. MACIST TECHNICIAN documented in this encounter Plan of Treatment Not on file documented as of this encounter Visit Diagnoses Diagnosis Otitis media with effusion, bilateral [H65.93]- Primary Mixed conductive and sensorineural hearing loss of right ear with restricted hearing of left ear documented in this encounter Additional Health Concerns Infection Onset Date Last Indicated Resolved Time C. difficile Comment:Backloaded December 21, 2010 09/21/2010 09/21/2010 documented as of this encounter Care Teams Criminal Justice Program Director Relationship Specialty Start Date End Date Lenin Ventura MD [address] [facility] [address] [place] [id number] PCP - General 07/06/16 Lenin Ventura MD [address] [address] 07/06/16 Burt Dos Santos MD PhD [address] [address] Medical Oncologist/Implementation Services Analyst Medical Oncology 06/16/19 documented as of this encounter
--- OUTSIDE RECORDS SUMMARY | 2024-02-22 08:27 | XMS_ITS | Clinical Summary ---
Author Organization [facility] [[email or web address]] [id number] [facility] Address [address] [place] [address] Care Team Providers Care Podiatric Surgeon Name Role Phone Lenin Ventura MD Primary Care Provider [phone] Lenin Ventura MD Unavailable [phone] Burt Dos Santos MD PhD Unavailable [phone] Allergies Active Allergy Reactions Criticality Noted Date Comments Cefuroxime Unknown Low Unclear history. Has tolerated Augmentin and Zosyn. Codeine Stomach upset Low 06/12/2019 Immune Globulin(Hum),Capr(Igg) Nausea only Low 02/20/2024 Medications fluticasone (FLONASE) 50 mcg/actuation nasal spray Administer 2 sprays into each nostril daily 03/08/19 16 Active ALPRAZolam (XANAX) 0.25 mg tablet Take 0.5-1 tablets (0.125-0.25 mg total) by mouth 3 (three) times a day as needed for anxiety 05/18/19 20 Active mupirocin (BACTROBAN) 2 % ointment Apply 1 inch of ointment to nasal irrigations 3x's daily 30 g 3 06/23/19 20 Active zinc 50 mg tabletIndication s:Zinc deficiency Take 50 mg by mouth daily 30 each 06/25/19 20 Active cyanocobalamin (Vitamin B-12) 1,000 mcg tabletIndication s:Prevention of Vitamin B12 Deficiency Take 1 tablet (1,000 mcg total) by mouth daily 30 tablet 11 06/25/19 20 Active cholecalciferol (cholecalciferol ) 1000 unit tabletIndication s:Vitamin D deficiency Take 1 tablet (1,000 Units total) by mouth daily 30 tablet 11 06/25/19 20 Active magnesium oxide (MAG-OX) 250 mg (150.8 mg elemental) tabletIndication s:hypomagnesemia Take 1 tablet (250 mg total) by mouth daily 06/25/19 20 Active melatonin 5 mg capsuleIndicatio ns:Insomnia, unspecified type Take 5 mg by mouth nightly as needed (insomnia) 0 06/25/19 20 Active sildenafiL (VIAGRA) 100 mg tabletIndication s:CLL (chronic lymphocytic leukemia) ([facility]) 03/14/19 21 Active traZODone (DESYREL) 50 mg tabletIndication s:CLL (chronic lymphocytic leukemia) ([facility]) Take 1 tablet (50 mg total) by mouth nightly 12/21/19 21 Active triamcinolone (KENALOG) 0.5 % cream APPLY TOPIALLY TO RASH TWICE DAILY NEEDED FOR UP TO 2 WEEKS AT A TIME 06/03/19 23 Active clindamycin (CLEOCIN T) 1 % lotion Apply topically 2 (two) times a day as needed (sores on hands, arms) 60 mL 3 07/05/19 23 Active oxyCODONE (ROXICODONE) 5 mg immediate release tabletIndication s:Pain Take 1 tablet (5 mg total) by mouth every 4 (four) hours as needed for pain (abscess) for up to 10 doses 10 tablet 08/05/19 23 Active tamsulosin (FLOMAX) 0.4 mg extended release capsuleIndicatio ns:CLL (chronic lymphocytic leukemia) ([facility]) TAKE 1 CAPSULE BY MOUTH EVERY DAY AT BEDTIME 08/11/19 23 Active budesonide (PULMICORT) 0.5 mg/2 mL nebulizer solution Mix 1 capsule/ampule in 250 mL of saline irrigations (NeLendProMed Sinus Rinse Bottle) and irrigate each nostril with half of the bottle twice daily. 120 mL 6 06/18/19 24 Active amoxicillin-clav ulanate (AUGMENTIN) 875-125 mg per tablet Take 1 tablet by mouth every 12 (twelve) hours 11/15/19 24 Active levoFLOXacin (LEVAQUIN) 500 mg tablet Take 1 tablet (500 mg total) by mouth daily 12/02/19 24 Active Calquence, acalabrutinib mal, 100 mg tabletIndication s:CLL (chronic lymphocytic leukemia) (HCC) TAKE 1 TABLET (100 MG TOTAL) BY MOUTH 2 (TWO) TIMES A DAY SWALLOW WHOLE WITH WATER AND WITH OR WITHOUT FOOD 60 tablet 2 01/03/20 24 Active acyclovir (ZOVIRAX) 200 mg capsuleIndicatio ns:CLL (chronic lymphocytic leukemia) (HCC) TAKE 2 CAPSULES(400 MG) BY MOUTH TWICE DAILY 360 capsule 3 02/11/20 24 Active acyclovir (ZOVIRAX) 200 mg capsuleIndicatio ns:CLL (chronic lymphocytic leukemia) (HCC) TAKE 2 CAPSULES(400 MG) BY MOUTH TWICE DAILY 360 capsule 3 01/24/20 23 2023 Discontinued Active Problems Patient Care Coordination No te Formatting of this note is d ifferent from the original. BMT Inpatient Care Coordination Overview Diagnosis CLL Treatment Plan Ibrutinib- on hold BMT/IEC/DCI Plan Clinical Trial Inpatient Floor 9800 Reason for Admission acute worsening of persistent sinus symptoms, now with ear drainage, bilateral hearing loss Transplant/IEC Planning Patient Education Completed Consents Done [facility] Insurance Approvals/Issues Discharge Planning Anticipated Discharge Date 4 Issue to be Resolved Before Discharge Living Situation/Distance from [place] Discharge To home Caregiver Self/ spouse Requests sent to Case Management and/or Medical Assistants Oral Levaquin x 14 days Post-Discharge Followup/Local Care ROV labs 4-23 TF Miscellaneous Notes: Problem Noted Date Diagnosed Date Otitis media with effusion, bilateral 12/16/2023 Epistaxis 08/29/2023 COVID 09/06/2021 Mixed conductive and sensori neural hearing loss of right ear with restricted hearing of left ear 07/10/2019 Mastoiditis of both sides 06/14/2019 Assessment & Plan (06/14/2019 1:53 PM CDT): With otitis. Possibly from H. Influenzae as well. Await final cultures. Agree with topical antibiotic plan per ENT. I'm not sure if yeast/CONS reflects sampling error or contamination, but is unlikely to be cause of such an infection. Hypogammaglobulinemia 06/13/2019 Assessment & Plan (06/14/2019 1:39 PM CDT): Agree with IVIG administration; this should help in the short term. Assessment & Plan (06/15/2019 11:09 AM CDT): In setting of CLL. IgG < 400. Has recurrent sinus infections. - S/p IVIG 06/12 Acute recurrent sinusitis 06/12/2019 Assessment & Plan (06/14/2019 1:54 PM CDT): Appears to favor bacterial etiology based on imaging and scope findings. Ibrutinib is a risk factor for fungal infection, but usually in patients with neutropenia and other risk factors, which the patient lacks. Nasal swab was apparently deep and growing H. Influenzae which may explain why the patient did not improve on clinda/doxy. Will likely plan on d/c with levofloxacin 750mg daily for 7 days if QTC on ECG normal or <450msec. Check ECG. If prolonged, would prefer augmentin 875/125 mg bid for same duration. Continue current antibiotic (pip-tazo) for now. At risk for recurrence - advised ENT follow-up for consideration of surgical treatment after acute infection resolved and sinus irrigation in the interim. Will follow fungal culture, but even if it is positive , it will not change current management as there is no invasion on exam per ENT and imaging, and fungal culture of sinus contents could be positive in allergic fungal sinusitis. Would need tissue biopsy for definitive diagnosis but overall clinical presentation not too concerning for ENT to pursue sinus biopsy. Please ensure that he has completed pneumococcal vaccination as appropriate for age. Assessment & Plan (06/15/2019 11:25 AM CDT): Acute worsening of persistent sinus symptoms and initially presented with ear drainage, bilateral hearing loss. Patient had been on Imbruvica (held in anticipation of sinus surgery which had to be delayed due to COVID19 restrictions on elective surgery) which has association with sinusitis. He had failed multiple courses of outpatient antibiotics. CT head/sinus on arrival demonstrated left ostiomeatal unit occlusion with corresponding severe sinus disease involving the left frontal sinus, maxillary sinus, and anterior ethmoid air cells, nonspecific bilateral middle ear cavity opacities and mastoid air cell opacities without associated bony destruction. S/p bilateral myringotomy tubes by ENT. - Neilmed irrigations with dissolved mupirocin in saline into each nostril TID x 14 days; ciprofloxacin-fluocinolone drops switched to ciprofloxacin-dexamethasone drops 4 gtt BID in each ear also x 14 days - Discussed with ENT- given reports of atypical sinus infections in patients on Imbruvica, consulted ID for further evaluation --> invasive fungal sinusitis is unlikely given imaging and relative clinical stability. Wound swab with mixed microorganisms and few non beta lactamase expressing H.influenzae (likely culprit given association with sinusitis and mastoiditis), middle ear aspirate with CONS which is unlikely to be pathogenic in this context. Recommended levofloxacin 750 mg every day x 7 days (QTc 396 06/14) --> will plan to extend this to 14 days per BMT. Plan to discharge home with [facility] ENT notified to contact patient for follow up. - Continue Zarina Prasadtec Thyroid nodule 06/12/2019 CLL (chronic lymphocytic leukemia) 08/28/2017 Assessment & Plan (06/15/2019 11:10 AM CDT): SLL/CLL. Initially treated with FCR, obtained remission for 7 years, followed by relapse with treatment with ALT-803 plus rituximab clinical trial. ?? Later with persistent disease and now on ibrutinib with clinical evidence of response. His blood counts are near his baseline. S/p IVIG 06/12 for hypogammaglobulinemia. - He has been holding his ibrutinib given he had planned for surgery - will continue to hold until antibiotic course completed - Continue OI prophylaxis- acyclovir Anxiety and depression Assessment & Plan (06/15/2019 11:10 AM CDT): Worsening mood, anxiety, depression related to ongoing pain, hearing loss. - Continue Lexapro 10mg daily - Continue Xanax 0.5 mg TID PRN Encounters Date Type Department Care Team Description 02/20/2024 11:30 AM BLOW DOWN HELPER Infusion [facility] [address] [facility] Floor 6 [place] [address] Hypogammaglobulinemia (HCC) (Primary Dx) 02/20/2024 11:15 AM BLOW DOWN HELPER Lab [facility] [address] [facility] Floor 6 [place] [address] CLL (chronic lymphocytic leukemia) (HCC) 02/20/2024 10:15 AM BLOW DOWN HELPER Office Visit [facility] Bone Marrow Transplant [address] [facility] Floor 6 [place] [address] Burt Dos Santos MD PhD CLL (chronic lymphocytic leukemia) (HCC) 02/20/2024 9:45 AM BLOW DOWN HELPER Lab [facility] [address] [facility] Floor 6 [place] [address] CLL (chronic lymphocytic leukemia) (HCC) 02/20/2024 9:15 AM BLOW DOWN HELPER Lab [facility] Oncology Lab [address] [facility] Floor 6 [place] [address] CLL (chronic lymphocytic leukemia) (HCC) 01/23/2024 1:00 PM BLOW DOWN HELPER Infusion [facility] [address] [facility] Floor 6 [place] [address] Hypogammaglobulinemia (HCC) (Primary Dx) 01/23/2024 12:00 PM BLOW DOWN HELPER Lab [facility] [address] [place] [address] Hypogammaglobulinemia (HCC) 01/06/2024 12:15 PM BLOW DOWN HELPER Procedure visit [facility] Otolaryngology [address] [place] [address] [place] [address] [place] [address] Lilian Scott Au.D. Sensorineural hearing loss (SNHL) of both ears 01/06/2024 11:20 AM BLOW DOWN HELPER Office Visit [facility] ENT [address] [place] [address] [place] [id number] Cass Olivia MD Otitis media with effusion, bilateral [H65.93] (Primary Dx); Mixed conductive and sensorineural hearing loss of right ear with restricted hearing of left ear 12/30/[address] [facility] ENT [address] [place] [address] [place] [address] Cass Olivia MD 12/30/2023 Orders Only [place] for [facility] ENT [address] [place] [address] [place] [address] Cass Olivia MD 12/28/2023 7:45 PM CDT Office Visit [facility] Medical [facility] Care at [address] [address] Cha Smith, ASHVIN Non-recurrent acute suppurative otitis media of right ear with spontaneous rupture of tympanic membrane (Primary Dx) 12/26/2023 1:00 PM CDT Infusion [facility] [address] [facility] Floor 6 [place] [address] Hypogammaglobulinemia (HCC) (Primary Dx) 12/26/2023 12:00 PM CDT Lab [facility] [address] [place] [address] Hypogammaglobulinemia (HCC) 12/16/2023 8:40 AM CDT Office Visit [facility] ENT [address] [facility] 11th [place] [address] [place] [address] Cass Olivia MD CLL (chronic lymphocytic leukemia) (HCC) (Primary Dx); Otitis media with effusion, bilateral 12/16/2023 8:20 AM CDT Procedure visit [facility] Otolaryngology [address] [place] [address] 11th [place] [address] [place] [address] Mixed conductive and sensorineural hearing loss of both ears (Primary Dx) 12/05/2023 10:30 AM CDT Office Visit [facility] Bone Marrow Transplant [address] [place] [address] Burt Dos Santos MD PhD CLL (chronic lymphocytic leukemia) (HCC) (Primary Dx); Hypogammaglobulinemia (HCC) 12/05/2023 10:15 AM CDT Lab [facility] [address] [place] [address] 6 [place] [address] CLL (chronic lymphocytic leukemia) (HCC); Hypogammaglobulinemia (HCC) from Last 3 Months Immunizations Name Administration Dates Next Due Influenza, Quadrivalent, Arianne l Culture-based MDCK, Preservative Free, Antibiotic Free, Intramuscular 01/15/2019 Influenza, Quadrivalent, Hig h Dose, Preservative Free, Intrr 10/29/2019 Influenza, Trivalent, IM (MDV) 01/29/2012 Pfizer SARS-CoV-2 Monovalent Vaccination (12+ Yrs) PURPLE 05/30/2020,05/05/2020 Surgical History Surgery Date Site/Laterality Comments BIOPSY LYMPH NODE SUPERFICIAL 12/07/2014 N/A CERVICAL SPINE SURGERY 03/04/2007 - 03/03/[address] Shaquille King at [facility] LAPAROSCOPIC CHOLECYSTECTOMY 03/04/2005 - 03/03/2006 Dr. [facility]ley- [facility] LYMPH NODE BIOPSY 03/04/2005 - 03/03/2006 Medical History Medical History Date Comments CLL (chronic lymphocytic leukemia) (HCC) Thyroid nodule 06/12/2019 Anxiety and depression Family History Medical History Relation Name Comments Depression Daughter 1 Anxiety disorder Daughter 2 Atrial fibrillation Father Coronary artery disease Father Diabetes Father Glaucoma Father Heart disease Father Hypertension Father Anxiety disorder Mother Hypertension Mother Macular degeneration Mother Colon cancer Other Depression Son 1 Anxiety disorder Son 2 Relation Name Status Comments Daughter 1 Daughter 2 Father Mother Other Son 1 Son 2 Social History Tobacco Use Types Packs/Day Years Used Date Smoking Tobacco: Former Smokeless Tobacco: Never Alcohol Use Standard Drinks/Week Comments Not Currently 0 (1 standard drink = 0.6 oz pur e alcohol) Sex and Gender Information Value Date Recorded Sex Assigned at Not on file Legal Sex Male 9:45 AM BLOW DOWN HELPER Gender Identity Not on file Sexual Orientation Not on file Obstetrics History Last Filed Vital Signs Vital Sign Reading Time Taken Comments Blood Pressure 110/68 02/20/2024 3:32 PM BLOW DOWN HELPER Pulse 69 02/20/2024 3:32 PM BLOW DOWN HELPER Temperature 36.7 ??C (98.1 ??F) 02/20/2024 10:[address] Respiratory Rate 18 02/20/2024 3:32 PM BLOW DOWN HELPER Oxygen Saturation 94% 02/20/2024 3:32 PM BLOW DOWN HELPER Inhaled Oxygen Concentration - - Weight 123.4 kg (272 lb) 02/20/2024 10:05 AM BLOW DOWN HELPER Height 193 cm (6' 4 ) 01/06/2024 11:56 AM BLOW DOWN HELPER Body Mass Index 33.11 01/06/2024 11:56 AM BLOW DOWN HELPER Plan of Treatment Health Maintenance Due Date Last Done Comments Depression Screening 1950 Hepatitis C Screening 1950 Pneumococcal vaccine 65+ (1 of 2 - PCV) 1958 DTaP/Tdap/Td Vaccine (1 - Tdap) 08/22/1963 Hepatitis B Screening 1970 Zoster Vaccine (1 of 2) 08/22/1971 Well Visit 65+ 2017 Fall Risk Assessment 06/14/2020 06/15/2019 Covid-19 Vaccine (3 - Pfizer risk series) 06/27/2020 05/30/2020, 05/05/2020 Influenza Vaccine (#1) 2023 , 01/15/2019, 01/29/2012 Colon Cancer Screening-Colonoscopy 02/01/2027 02/01/2017 Colon Cancer Screening-CT Colonography Discontinued 02/01/2017 Colon Cancer Screening-DNA Stool Discontinued 02/02/20 Colon Cancer Screening-FIT Discontinued 02/01/2017 Colon Cancer Screening-Sigmoidoscopy Discontinued 02/01/2017 Abdominal Aortic Aneurysm (A AA) Screen Completed 06/13/2023, 09/08/2020, 09/17/2019, Additional history exists Procedures Procedure Name Priority Date/Time Associated Diagnosis Comments EGFR Routine 02/20/2024 11:15 AM BLOW DOWN HELPER CLL (chronic lymphocytic leukemia) (HCC) MANUAL DIFFERENTIAL Routine 02/20/2024 1 1:15 AM BLOW DOWN HELPER CLL (chronic lymphocytic leukemia) (HCC) CBC WITH AUTO DIFFERENTIAL Routine 02/20/2024 11:15 AM BLOW DOWN HELPER CLL (chronic lymphocytic leukemia) (HCC) COMPREHENSIVE METABOLIC PANEL Routine 02/20/2024 11:15 AM BLOW DOWN HELPER CLL (chronic lymphocytic leukemia) (HCC) EGFR Routine 02/20/2024 9:45 AM BLOW DOWN HELPER CLL (chronic lymphocytic leukemia) (HCC) MANUAL DIFFERENTIAL Routine 02/20/2024 9 :45 AM BLOW DOWN HELPER CLL (chronic lymphocytic leukemia) (HCC) CBC WITH AUTO DIFFERENTIAL Routine 02/20/2024 9:45 AM BLOW DOWN HELPER CLL (chronic lymphocytic leukemia) (HCC) COMPREHENSIVE METABOLIC PANEL Routine 02/20/2024 9:45 AM BLOW DOWN HELPER CLL (chronic lymphocytic leukemia) (HCC) LACTATE DEHYDROGENASE Routine 02/20/2024 9:45 AM BLOW DOWN HELPER CLL (chronic lymphocytic leukemia) (HCC) IGG Routine 02/20/2024 9:45 AM BLOW DOWN HELPER CLL (chronic lymphocytic leukemia) (HCC) EGFR Routine 01/23/2024 12:12 PM BLOW DOWN HELPER Hypogammaglobuline maddison (HCC) MANUAL DIFFERENTIAL Routine 01/23/2024 1 2:12 PM BLOW DOWN HELPER Hypogammaglobuline maddison (HCC) CBC WITH AUTO DIFFERENTIAL Routine 01/23/2024 12:12 PM BLOW DOWN HELPER Hypogammaglobuline maddison (HCC) COMPREHENSIVE METABOLIC PANEL Routine 01/23/2024 12:12 PM BLOW DOWN HELPER Hypogammaglobuline maddison (HCC) AUDBASE RESULTS 01/06/2024 12:37 PM BLOW DOWN HELPER EGFR Routine 12/26/2023 12:30 PM CDT Hypogammaglobuline maddison (HCC) DIFFERENTIAL AUTO Routine 12/26/2023 12: 30 PM CDT Hypogammaglobuline maddison (HCC) CBC WITH AUTO DIFFERENTIAL Routine 12/26/2023 12:30 PM CDT Hypogammaglobuline maddison (HCC) COMPREHENSIVE METABOLIC PANEL Routine 12/26/2023 12:30 PM CDT Hypogammaglobuline maddison (HCC) AUDBASE RESULTS 12/16/2023 8:06 AM CDT DIFFERENTIAL AUTO Routine 12/05/2023 10: 33 AM CDT Hypogammaglobuline maddison (HCC) CBC WITH AUTO DIFFERENTIAL Routine 12/05/2023 10:33 AM CDT Hypogammaglobuline maddison (HCC) EGFR Routine 12/05/2023 10:24 AM CDT CLL (chronic lymphocytic leukemia) (HCC) IGG Routine 12/05/2023 10:24 AM CDT Hypogammaglobuline maddison (HCC) LACTATE DEHYDROGENASE Routine 12/05/2023 10:24 AM CDT Hypogammaglobuline maddison (HCC) COMPREHENSIVE METABOLIC PANEL Routine 12/05/2023 10:24 AM CDT CLL (chronic lymphocytic leukemia) (HCC) CT CHEST ABDOMEN PELVIS W CONTRAST Schedule Routine, Read Routine (OP Routine) 06/13/2023 10:03 AM CDT Hypogammaglobuline maddison (HCC) CLL (chronic lymphocytic leukemia) (HCC) COLONOSCOPY REPORT 02/01/2017 from Last 3 Months or Most Recently Relevant to Health Maintenance Results * eGFR (02/20/2024 11:15 AM BLOW DOWN HELPER) eGFR >90 >=60 mL/min/1. 73 m2 Comment: Interpretive Data Reference Interval Normal ?>/= 90 mL/min/1.73m2 Mildly decreased* ? 60 - 89 mL/min/1.73m2 Mildly to moderately decreased ?45 - 59 mL/min/1.73m2 Moderately to severely decreased ??30 - 44 mL/min/1.73m2 Severely decreased ?15 - 29 mL/min/1.73m2 Kidney Failure ?< 15 ??mL/min/1.73m2 *Relative to young adult level Estimated glomerular filtration rate is determined by the 2020 CKD-EPI equation recommended by the National Kidney Foundation (A Unifying Approach to GFR Estimation: Recommendations of the NKF-ASK Task Force on Reassessing the Inclusion of Race in Diagnosing Kidney Disease, JASN 2020). The CKD-EPI equation should not be used for patients with unstable renal function and has not been validated in children and those over 70. Current interpretive data was last reviewed 2021. Blood 02/20/2024 11:1 5 AM BLOW DOWN HELPER 02/20/2024 11:33 AM BLOW DOWN HELPER us Magali Stapleton SUBMARINE ELEMENT COORDINATOR LAB BLOOD ORDERABLES Final Res ult [facility] [place] [address] * (ABNORMAL) CBC with auto differential (02/20/2024 11:15 AM BLOW DOWN HELPER) WBC 11.8(H) 3.8 - 9.9 K/cumm Comment:Testing performed by : [facility], [address] [place] [address] Hgb 13.6 13.0 - 17.5 g/dL [facility] Comment:Testing performed by : [facility], [address] [place] [address] Hct 40.6 38.9 - 50.3 % CERGEOFF CASTRO Comment:Testing performed by : [facility], [address] [place] [address] Plt 146(L) 150 - 400 K/cumm CERGEOFF [facility]J Comment:Testing performed by : [facility], [address] [place] [address] MPV 9.5 6.8 - 10.4 fL [facility] Comment:Testing performed by : [facility], [address] [place] [address] RBC 4.30 4.30 - 5.80 M/cumm [facility]GEOFF [facility] Comment:Testing performed by : [facility], [address] [place] [address] MCV 94.3 81.3 - 96.4 fL CERGEOFF CASTRO Comment:Testing performed by : [facility], [address] [place], [place] [phone] MCH 31.6 27.1 - 33.3 pg VANESSA CASTRO Comment:Testing performed by : [facility], [address] [place], [place] [phone] MCHC 33.5 32.3 - 35.7 g/dL VANESSA CASTRO Comment:Testing performed by : [facility], [address] [place], [place] [phone] RDW CV 13.9 11.1 - 14.9 % VANESSA CASTRO Comment:Testing performed by : [facility], [address] [place], [place] [phone] NRBC abs 0.00 0.00 - 0.01 K/cumm VANESSA CASTRO Comment:Testing performed by : [facility], [address] [place], [place] [phone] Blood 02/20/2024 11:1 5 AM BLOW DOWN HELPER 02/20/2024 11:29 AM BLOW DOWN HELPER [facility]ative [facility] - 02/20/2024 11:33 AM BLOW DOWN HELPER 03/19, 04/16, 05/14 Magali Stapleton SUBMARINE ELEMENT COORDINATOR LAB BLOOD ORDERABLES Final Res ult [facility] Department of Laboratories [place], [place] [id number] * (ABNORMAL) Manual Differential (02/20/2024 11:15 AM BLOW DOWN HELPER) Cells Counted 200 Comment:Testing performed by : [facility], [address] [place], [place] [phone] Neutrophil abs 4.7 1.5 - 6.5 K/cumm VANESSA CASTRO Comment:Testing performed by : [facility], [address] [place], [place] [phone] Lymphocyte abs 6.0(H) 0.8 - 3.3 K/cumm VANESSA CASTRO Comment:Testing performed by : [facility], [address] [place] [address] Monocyte abs 0.4 0.2 - 0.8 K/cumm [facility] Comment:Testing performed by : [facility], [address] [place] [phone] Eosinophil abs 0.1 0.0 - 0.5 K/cumm [facility] Comment:Testing performed by : [facility], [address] [place] [phone] Basophil abs 0.1 0.0 - 0.1 K/cumm [facility] Comment:Testing performed by : [facility], [address] [place] [phone] Neutrophil pct 40.0 % [facility] Comment: Interpretive Data Percent cell count reference ranges are not reported, since discordance with absolute values may lead to misinterpretation of CBC data. Current Interpretive Data was last revised on 2017. Testing performed by: [facility], [address] [place] [phone] Lymphocyte pct 51.0 % [facility] Comment: Interpretive Data Percent cell count reference ranges are not reported, since discordance with absolute values may lead to misinterpretation of CBC data. Current Interpretive Data was last revised on 2017. Testing performed by: [facility], [address] [place] [phone] Monocyte pct 3.0 % [facility] Comment: Interpretive Data Percent cell count reference ranges are not reported, since discordance with absolute values may lead to misinterpretation of CBC data. Current Interpretive Data was last revised on 2017. Testing performed by: [facility], [address] [place] [phone] Eosinophil pct 1.0 % [facility] Comment: Interpretive Data Percent cell count reference ranges are not reported, since discordance with absolute values may lead to misinterpretation of CBC data. Current Interpretive Data was last revised on 2017. Testing performed by: [facility], [address] [place] [phone] Basophil pct 1.0 % [facility] Comment: Interpretive Data Percent cell count reference ranges are not reported, since discordance with absolute values may lead to misinterpretation of CBC data. Current Interpretive Data was last revised on 2017. Testing performed by: [facility], [address] [place] [phone] Variant lymph pct 4.0 % [facility] Comment:Testing performed by : [facility], [address] [place] [phone] RBC morphology Normal [facility] Comment:Testing performed by : [facility], [address] [place] [phone] Platelet estimate Decreased( A) [facility] Comment:Testing performed by : [facility], [address] [place] [phone] Blood 02/20/2024 11:1 5 AM BLOW DOWN HELPER 02/20/2024 11:29 AM BLOW DOWN HELPER Magali Stapleton SUBMARINE ELEMENT COORDINATOR LAB BLOOD ORDERABLES Final Res ult [facility] [place] [address] * (ABNORMAL) Comprehensive metabolic panel (02/20/2024 11:15 AM BLOW DOWN HELPER) Sodium 142 135 - 145 mmol/L Potassium, pl 4.7 3.3 - 4.9 mmol/L [facility] Chloride 107 97 - 110 mmol/L [facility] CO2 31 22 - 32 mmol/L [facility] Anion gap 4 2 - 15 mmol/L [facility] BUN 18 6 - 25 mg/dL [facility] Creatinine 0.86 0.80 - 1.30 mg/dL [facility] Glucose 111 70 - 199 mg/dL [facility] Comment: Interpretive Data Fasting glucose >/= 126 mg/dl is diagnostic for diabetes. ?? Fasting is defined as no caloric intake for at least 8 hours. Fasting glucose between 100 mg/dl to 125 mg/dl is diagnostic of prediabetes. In a patient with classic symptoms of hyperglycemia or hyperglycemic crisis, a random glucose >/= 200 mg/dl is diagnostic for diabetes. In the absence of unequivocal hyperglycemia, results should be confirmed by repeat testing. The classification and Diagnosis of Diabetes Diabetes Care 202; 46: S19-S40. Current interpretive data was last revised 2022. Calcium 9.1 8.5 - 10.3 mg/dL [facility] Bilirubin, total 0.4 0.1 - 1.2 mg/dL [facility] Protein, pl 5.8(L) 6.5 - 8.5 g/dL [facility] Albumin 3.8 3.5 - 5.0 g/[facility] Alk phos 109 40 - 130 Units/L [facility] ALT 205(H) 7 - 55 Units/L [facility] AST 158(H) 10 - 50 Units/L [facility] Blood 02/20/2024 11:1 5 AM BLOW DOWN HELPER 02/20/2024 11:33 AM BLOW DOWN HELPER Magali Stapleton SUBMARINE ELEMENT COORDINATOR LAB BLOOD ORDERABLES Final Res ult [facility] Department [place] [address] * eGFR (02/20/2024 9:45 AM BLOW DOWN HELPER) eGFR >90 >=60 mL/min/1. 73 m2 Comment: Interpretive Data Reference Interval Normal ?>/= 90 mL/min/1.73m2 Mildly decreased* ? 60 - 89 mL/min/1.73m2 Mildly to moderately decreased ?45 - 59 mL/min/1.73m2 Moderately to severely decreased ??30 - 44 mL/min/1.73m2 Severely decreased ?15 - 29 mL/min/1.73m2 Kidney Failure ?< 15 ??mL/min/1.73m2 *Relative to young adult level Estimated glomerular filtration rate is determined by the 2020 CKD-EPI equation recommended by the National Kidney Foundation (A Unifying Approach to GFR Estimation: Recommendations of the NKF-ASK Task Force on Reassessing the Inclusion of Race in Diagnosing Kidney Disease, JASN 2020). The CKD-EPI equation should not be used for patients with unstable renal function and has not been validated in children and those over 70. Current interpretive data was last reviewed 2021. Blood 02/20/2024 9:45 AM BLOW DOWN HELPER 02/20/2024 10:01 AM BLOW DOWN HELPER us Magali Stapleton SUBMARINE ELEMENT COORDINATOR LAB BLOOD ORDERABLES Final Res ult [facility] Department [place] [address] * (ABNORMAL) CBC with auto differential (02/20/2024 9:45 AM BLOW DOWN HELPER) WBC 10.9(H) 3.8 - 9.9 K/cumm Comment:Testing performed by : [facility], [address] [place] [address] Hgb 13.7 13.0 - 17.5 g/dL [facility] Comment:Testing performed by : [facility], [address] [place] [address] Hct 40.6 38.9 - 50.3 % [facility] Comment:Testing performed by : [facility], [address] [place] [address] Plt 140(L) 150 - 400 K/cumm [facility] Comment:Testing performed by : [facility], [address] [place] [address] MPV 8.8 6.8 - 10.4 fL [facility] Comment:Testing performed by : [facility], [address] [place] [address] RBC 4.31 4.30 - 5.80 M/cumm [facility] Comment:Testing performed by : [facility], [address] [place] [address] MCV 94.2 81.3 - 96.4 fL [facility] Comment:Testing performed by : [facility], [address] [place] [address] MCH 31.8 27.1 - 33.3 pg [facility] Comment:Testing performed by : [facility], [address] [place] [address] MCHC 33.8 32.3 - 35.7 g/dL [facility] Comment:Testing performed by : [facility], [address] [place] [address] RDW CV 14.1 11.1 - 14.9 % [facility] Comment:Testing performed by : [facility], [address] [place] [address] NRBC abs 0.00 0.00 - 0.01 K/cumm [facility] Comment:Testing performed by : [facility], [address] [place] [address] Blood 02/20/2024 9:45 AM BLOW DOWN HELPER 02/20/2024 9:56 AM BLOW DOWN HELPER Magali Stapleton SUBMARINE ELEMENT COORDINATOR LAB BLOOD ORDERABLES Edited Re sult - Final [facility]ESSA [facility] Department [place] [address] * (ABNORMAL) Manual Differential (02/20/2024 9:45 AM BLOW DOWN HELPER) Cells Counted 200 Comment:Testing performed by : [facility], [address] [place] [address] Neutrophil abs 4.5 1.5 - 6.5 K/cumm [facility] CASTRO Comment:Testing performed by : [facility], [address] [place] [address] Lymphocyte abs 5.2(H) 0.8 - 3.3 K/cumm [facility]SA CASTROH Comment:Testing performed by : [facility], [facility] [place] [phone] Monocyte abs 0.3 0.2 - 0.8 K/cumm [facility] Comment:Testing performed by : [facility], [address] [place] [phone] Eosinophil abs 0.2 0.0 - 0.5 K/cumm [facility] Comment:Testing performed by : [facility], [address] [place] [phone] Basophil abs 0.1 0.0 - 0.1 K/cumm [facility] Comment:Testing performed by : [facility], [address] [place] [phone] Neutrophil pct 41.0 % [facility] Comment: Interpretive Data Percent cell count reference ranges are not reported, since discordance with absolute values may lead to misinterpretation of CBC data. Current Interpretive Data was last revised on 2017. Testing performed by: [facility], [address] [place] [phone] Lymphocyte pct 48.0 % [facility] Comment: Interpretive Data Percent cell count reference ranges are not reported, since discordance with absolute values may lead to misinterpretation of CBC data. Current Interpretive Data was last revised on 2017. Testing performed by: [facility], [address] [place] [phone] Monocyte pct 3.0 % [facility] Comment: Interpretive Data Percent cell count reference ranges are not reported, since discordance with absolute values may lead to misinterpretation of CBC data. Current Interpretive Data was last revised on 2017. Testing performed by: [facility], [address] [place] [phone] Eosinophil pct 2.0 % [facility] Comment: Interpretive Data Percent cell count reference ranges are not reported, since discordance with absolute values may lead to misinterpretation of CBC data. Current Interpretive Data was last revised on 2017. Testing performed by: [facility], [address] [place] [phone] Basophil pct 1.0 % [facility] Comment: Interpretive Data Percent cell count reference ranges are not reported, since discordance with absolute values may lead to misinterpretation of CBC data. Current Interpretive Data was last revised on 2017. Testing performed by: [facility], [address] [place], [place] [phone] Variant lymph pct 7.0 % [facility] Comment:Testing performed by : [facility], [address] [place] [address] RBC morphology Normal [facility] Comment:Testing performed by : [facility], [address] [place] [address] Platelet estimate Decreased( A) [facility]ESSA [facility] Comment:Testing performed by : [facility], [address] [place], [place] [phone] Blood 02/20/2024 9:45 AM BLOW DOWN HELPER 02/20/2024 9:56 AM BLOW DOWN HELPER Magali S. [place] SUBMARINE ELEMENT COORDINATOR LAB BLOOD ORDERABLES Final Res ult Performing Organization Address City/[facility] Co de Phone Number [facility] Department [place] [address] * (ABNORMAL) Lactate dehydrogenase (LD) (02/20/2024 9:45 AM BLOW DOWN HELPER) Lactate dehydrogenase (LDH) 435(H) 100 - 250 Units/L Blood 02/20/2024 9:45 AM BLOW DOWN HELPER 02/20/2024 10:01 AM BLOW DOWN HELPER Magali S. [place] SUBMARINE ELEMENT COORDINATOR LAB BLOOD ORDERABLES Final Res ult Performing Organization Address City/[facility] Co de Phone Number [facility] [place] [address] * (ABNORMAL) IgG (02/20/2024 9:45 AM BLOW DOWN HELPER) Immunoglobulin G 479(L) 700 - 1,600 mg/dL Blood 02/20/2024 9:45 AM BLOW DOWN HELPER 02/20/2024 10:44 AM BLOW DOWN HELPER us Magali SammyJulisa Velazquezr SUBMARINE ELEMENT COORDINATOR LAB BLOOD ORDERABLES Final Res ult [facility] [place] [address] * (ABNORMAL) Comprehensive metabolic panel (02/20/2024 9:45 AM BLOW DOWN HELPER) Pathologist [facility] Sodium 141 135 - 145 mmol/L Potassium, pl 4.6 3.3 - 4.9 mmol/L [facility] Chloride 106 97 - 110 mmol/L [facility] CO2 29 22 - 32 mmol/L [facility] Anion gap 6 2 - 15 mmol/L [facility] BUN 17 6 - 25 mg/dL [facility] Creatinine 0.88 0.80 - 1.30 mg/dL [facility] Glucose 138 70 - 199 mg/dL [facility] Comment: Interpretive Data Fasting glucose >/= 126 mg/dl is diagnostic for diabetes. ?? Fasting is defined as no caloric intake for at least 8 hours. Fasting glucose between 100 mg/dl to 125 mg/dl is diagnostic of prediabetes. In a patient with classic symptoms of hyperglycemia or hyperglycemic crisis, a random glucose >/= 200 mg/dl is diagnostic for diabetes. In the absence of unequivocal hyperglycemia, results should be confirmed by repeat testing. The classification and Diagnosis of Diabetes Diabetes Care 2021; 46: S19-S40. Current interpretive data was last revised 2022. Calcium 8.9 8.5 - 10.3 mg/dL [facility] Bilirubin, total 0.4 0.1 - 1.2 mg/dL [facility] Protein, pl 5.8(L) 6.5 - 8.5 g/dL [facility] Albumin 3.7 3.5 - 5.0 g/dL [facility] Alk phos 108 40 - 130 Units/L [facility] ALT 203(H) 7 - 55 Units/L [facility] AST 160(H) 10 - 50 Units/L [facility] Comment:Hemolyzed; result ma y be falsely elevated Blood 02/20/2024 9:45 AM BLOW DOWN HELPER 02/20/2024 10:01 AM BLOW DOWN HELPER us Magali Stapleton SUBMARINE ELEMENT COORDINATOR LAB BLOOD ORDERABLES Final Res ult Performing Organization Address [facility] Co de Phone Number [facility]ES[facility] CA[facility] [place] [address] * eGFR (01/23/2024 12:12 PM BLOW DOWN HELPER) eGFR >90 >=60 mL/min/1. 73 m2 Comment: Interpretive Data Reference Interval Normal ?>/= 90 mL/min/1.73m2 Mildly decreased* ? 60 - 89 mL/min/1.73m2 Mildly to moderately decreased ?45 - 59 mL/min/1.73m2 Moderately to severely decreased ??30 - 44 mL/min/1.73m2 Severely decreased ?15 - 29 mL/min/1.73m2 Kidney Failure ?< 15 ??mL/min/1.73m2 *Relative to young adult level Estimated glomerular filtration rate is determined by the 2020 CKD-EPI equation recommended by the National Kidney Foundation (A Unifying Approach to GFR Estimation: Recommendations of the NKF-ASK Task Force on Reassessing the Inclusion of Race in Diagnosing Kidney Disease, JASN 2020). The CKD-EPI equation should not be used for patients with unstable renal function and has not been validated in children and those over 70. Current interpretive data was last reviewed 2021. Blood 01/23/2024 12:1 2 PM BLOW DOWN HELPER 01/23/2024 12:37 PM BLOW DOWN HELPER us Burt Dos Santos MD PhD LAB BLOOD ORDERABLES Final Result Performing Organization Address [facility] Co de Phone Number [facility] CA[facility] Department [place] [address] * (ABNORMAL) CBC with auto differential (01/23/2024 12:12 PM BLOW DOWN HELPER) WBC 10.6(H) 3.8 - 9.9 K/cumm Comment:Testing performed by : [facility], [address] [place] [address] Hgb 14.1 13.0 - 17.5 g/dL [facility] Comment:Testing performed by : [facility], [address] [place] [address] Hct 41.8 38.9 - 50.3 % [facility] Comment:Testing performed by : [facility], [address] [place] [address] Plt 203 150 - 400 K/cumm [facility] Comment:Testing performed by : [facility], [address] [place] [address] MPV 10.4 6.8 - 10.4 fL [facility] Comment:Testing performed by : [facility], [address] [place] [address] RBC 4.37 4.30 - 5.80 M/cumm [facility] Comment:Testing performed by : [facility], [address] [place] [address] MCV 95.6 81.3 - 96.4 fL [facility] Comment:Testing performed by : [facility], [address] [place] [address] MCH 32.4 27.1 - 33.3 pg [facility] Comment:Testing performed by : [facility], [address] [place] [address] MCHC 33.9 32.3 - 35.7 g/dL [facility] Comment:Testing performed by : [facility], [address] [place] [address] RDW CV 14.1 11.1 - 14.9 % [facility] Comment:Testing performed by : [facility], [address] [place], [place] [phone] NRBC abs 0.00 0.00 - 0.01 K/cumm [facility] Comment:Testing performed by : [facility], [address] [place] [address] Blood 01/23/2024 12:1 2 PM BLOW DOWN HELPER 01/23/2024 12:34 PM BLOW DOWN HELPER Burt Dos Santos MD PhD LAB BLOOD ORDERABLES Edited Result - Final [facility] Department of Laboratories [place] [id number] * (ABNORMAL) Manual Differential (01/23/2024 12:12 PM BLOW DOWN HELPER) Cells Counted 100 Comment:Testing performed by : [facility], [address] [place], [place] [phone] Neutrophil abs 3.5 1.5 - 6.5 K/cumm [facility] Comment:Testing performed by : [facility], [address] [place], [place] [phone] Lymphocyte abs 6.0(H) 0.8 - 3.3 K/cumm [facility] Comment:Testing performed by : [facility], [address] [place], [place] [phone] Monocyte abs 0.1(L) 0.2 - 0.8 K/cumm [facility] Comment:Testing performed by : [facility], [address] [place] [address] Eosinophil abs 0.2 0.0 - 0.5 K/cumm [facility] Comment:Testing performed by : [facility], [address] [place] [address] Basophil abs 0.1 0.0 - 0.1 K/cumm [facility] Comment:Testing performed by : [facility], [address] [place], [place] [phone] Neutrophil pct 33.0 % [facility] Comment: Interpretive Data Percent cell count reference ranges are not reported, since discordance with absolute values may lead to misinterpretation of CBC data. Current Interpretive Data was last revised on 2017. Testing performed by: [facility], [address] [place] [phone] Lymphocyte pct 57.0 % [facility] Comment: Interpretive Data Percent cell count reference ranges are not reported, since discordance with absolute values may lead to misinterpretation of CBC data. Current Interpretive Data was last revised on 2017. Testing performed by: [facility], [address] [place] [phone] Monocyte pct 1.0 % [facility] Comment: Interpretive Data Percent cell count reference ranges are not reported, since discordance with absolute values may lead to misinterpretation of CBC data. Current Interpretive Data was last revised on 2017. Testing performed by: [facility], [address] [place] [phone] Eosinophil pct 2.0 % [facility] Comment: Interpretive Data Percent cell count reference ranges are not reported, since discordance with absolute values may lead to misinterpretation of CBC data. Current Interpretive Data was last revised on 2017. Testing performed by: [facility], [address] [place] [phone] Basophil pct 1.0 % [facility] Comment: Interpretive Data Percent cell count reference ranges are not reported, since discordance with absolute values may lead to misinterpretation of CBC data. Current Interpretive Data was last revised on 2017. Testing performed by: [facility], [address] [place] [phone] Metamyelocyte pct 1.0 % [facility] Comment:Testing performed by : [facility], [address] [place] [phone] Variant lymph pct 5.0 % [facility] Comment:Testing performed by : [facility], [address] [place] [phone] RBC morphology Normal [facility] Comment:Testing performed by : [facility], [address] [place] [phone] Platelet estimate Adequate [facility] Comment:Testing performed by : [facility], [address] [place] [phone] Blood 01/23/2024 12:1 2 PM BLOW DOWN HELPER 01/23/2024 12:34 PM BLOW DOWN HELPER Burt Dos Santos MD PhD LAB BLOOD ORDERABLES Final Result [facility] [place] [address] * (ABNORMAL) Comprehensive metabolic panel (01/23/2024 12:12 PM BLOW DOWN HELPER) Sodium 140 135 - 145 mmol/L Potassium, pl 4.5 3.3 - 4.9 mmol/L [facility] Chloride 105 97 - 110 mmol/L [facility] CO2 29 22 - 32 mmol/L [facility] Anion gap 6 2 - 15 mmol/L [facility] BUN 18 6 - 25 mg/dL [facility] Creatinine 0.77(L) 0.80 - 1.30 mg/dL [facility] Glucose 125 70 - 199 mg/dL [facility] Comment: Interpretive Data Fasting glucose >/= 126 mg/dl is diagnostic for diabetes. ?? Fasting is defined as no caloric intake for at least 8 hours. Fasting glucose between 100 mg/dl to 125 mg/dl is diagnostic of prediabetes. In a patient with classic symptoms of hyperglycemia or hyperglycemic crisis, a random glucose >/= 200 mg/dl is diagnostic for diabetes. In the absence of unequivocal hyperglycemia, results should be confirmed by repeat testing. The classification and Diagnosis of Diabetes Diabetes Care 202; 46: S19-S40. Current interpretive data was last revised 2022. Calcium 9.0 8.5 - 10.3 mg/dL [facility] Bilirubin, total 0.4 0.1 - 1.2 mg/dL [facility] Protein, pl 5.9(L) 6.5 - 8.5 g/dL [facility] Albumin 3.9 3.5 - 5.0 g/dL [facility] Alk phos 90 40 - 130 Units/L [facility] ALT 36 7 - 55 Units/L [facility] AST 24 10 - 50 Units/L [facility] Blood 01/23/2024 12:1 2 PM BLOW DOWN HELPER 01/23/2024 12:37 PM BLOW DOWN HELPER us Burt Dos Santos MD PhD LAB BLOOD ORDERABLES Final Result [facility] [place] [address] * [employer] Results (01/06/2024 12:37 PM BLOW DOWN HELPER) us Provider Scanning AUDIOLOGY SERVICES ORDERABLES Final Result * eGFR (12/26/2023 12:30 PM CDT) eGFR >90 >=60 mL/min/1. 73 m2 Comment: Interpretive Data Reference Interval Normal ?>/= 90 mL/min/1.73m2 Mildly decreased* ? 60 - 89 mL/min/1.73m2 Mildly to moderately decreased ?45 - 59 mL/min/1.73m2 Moderately to severely decreased ??30 - 44 mL/min/1.73m2 Severely decreased ?15 - 29 mL/min/1.73m2 Kidney Failure ?< 15 ??mL/min/1.73m2 *Relative to young adult level Estimated glomerular filtration rate is determined by the 2020 CKD-EPI equation recommended by the National Kidney Foundation (A Unifying Approach to GFR Estimation: Recommendations of the NKF-ASK Task Force on Reassessing the Inclusion of Race in Diagnosing Kidney Disease, JASN 2020). The CKD-EPI equation should not be used for patients with unstable renal function and has not been validated in children and those over 70. Current interpretive data was last reviewed 2021. Blood 12/26/2023 12:3 0 PM CDT 12/26/2023 12:38 PM CDT Burt Dos Santos MD PhD LAB BLOOD ORDERABLES Final Result [facility] [place] [address] * (ABNORMAL) Differential, auto (12/26/2023 12:30 PM CDT) Neutrophil abs 7.9(H) 1.5 - 6.5 K/cumm Comment:Testing performed by : [facility], [address] [place] [phone] Lymphocyte abs 3.1 0.8 - 3.3 K/cumm CERNER [facility] Comment:Testing performed by : [facility], [address] [place] [phone] Monocyte abs 0.4 0.2 - 0.8 K/cumm CERNER BJ Comment:Testing performed by : [facility], [address] [place] [phone] Eosinophil abs 0.0 0.0 - 0.5 K/cumm CERNER BJ Comment:Testing performed by : [facility], [address] [place] [phone] Basophil abs 0.0 0.0 - 0.1 K/cumm CERNER BJ Comment:Testing performed by : [facility], [address] [place] [phone] Neutrophil pct 69.7 % CERNER BJ Comment: Interpretive Data Percent cell count reference ranges are not reported, since discordance with absolute values may lead to misinterpretation of CBC data. Current Interpretive Data was last revised on 2017. Testing performed by: [facility], [address] [place] [phone] Lymphocyte pct 26.8 % CERNER BJ Comment: Interpretive Data Percent cell count reference ranges are not reported, since discordance with absolute values may lead to misinterpretation of CBC data. Current Interpretive Data was last revised on 2017. Testing performed by: [facility], [address] [place] [phone] Monocyte pct 3.1 % VANESSA CASTRO Comment: Interpretive Data Percent cell count reference ranges are not reported, since discordance with absolute values may lead to misinterpretation of CBC data. Current Interpretive Data was last revised on 2017. Testing performed by: [facility], [address] [place] [phone] Eosinophil pct 0.1 % VANESSA CASTRO Comment: Interpretive Data Percent cell count reference ranges are not reported, since discordance with absolute values may lead to misinterpretation of CBC data. Current Interpretive Data was last revised on 2017. Testing performed by: [facility], [address] [place] [phone] Basophil pct 0.3 % VANESSA CASTRO Comment: Interpretive Data Percent cell count reference ranges are not reported, since discordance with absolute values may lead to misinterpretation of CBC data. Current Interpretive Data was last revised on 2017. Testing performed by: [facility], [address] [place] [phone] Blood 12/26/2023 12:3 0 PM CDT 12/26/2023 12:36 PM CDT Burt Dos Santos MD PhD LAB BLOOD ORDERABLES Final Result [facility] [place] [address] * (ABNORMAL) CBC with auto differential (12/26/2023 12:30 PM CDT) WBC 11.4(H) 3.8 - 9.9 K/cumm Comment:Testing performed by : [facility], [address] [place] [phone] Hgb 14.4 13.0 - 17.5 g/dL CERNER BJ Comment:Testing performed by : [facility], [address] [place] [address] Hct 43.7 38.9 - 50.3 % CERNER BJ Comment:Testing performed by : [facility], [address] [place], [place] [phone] Plt 186 150 - 400 K/cumm CERNER BJ Comment:Testing performed by : [facility], [address] [place] [address] MPV 10.7(H) 6.8 - 10.4 fL CERNER BJ Comment:Testing performed by : [facility], [address] [place], [place] [phone] RBC 4.49 4.30 - 5.80 M/cumm CERNER BJ Comment:Testing performed by : [facility], [address] [place] [address] MCV 97.3(H) 81.3 - 96.4 fL CERNER BJ Comment:Testing performed by : [facility], [address] [place] [address] MCH 32.1 27.1 - 33.3 pg CERNER BJ Comment:Testing performed by : [facility], [address] [place] [address] MCHC 33.0 32.3 - 35.7 g/dL CERNER BJ Comment:Testing performed by : [facility], [address] [place] [address] RDW CV 14.0 11.1 - 14.9 % CERNER BJ Comment:Testing performed by : [facility], [address] [place] [address] NRBC abs 0.00 0.00 - 0.01 K/cumm CERNER BJ Comment:Testing performed by : [facility], [address] [place] [address] Blood 12/26/2023 12:3 0 PM CDT 12/26/2023 12:36 PM CDT Burt Dos Santos MD PhD LAB BLOOD ORDERABLES Final Result [facility] [place] [address] * (ABNORMAL) Comprehensive metabolic panel (12/26/2023 12:30 PM CDT) Sodium 134(L) 135 - 145 mmol/L Potassium, pl 4.4 3.3 - 4.9 mmol/L [facility] Chloride 99 97 - 110 mmol/L [facility] CO2 29 22 - 32 mmol/L [facility] Anion gap 6 2 - 15 mmol/L [facility] BUN 16 6 - 25 mg/dL [facility] Creatinine 0.72(L) 0.80 - 1.30 mg/dL [facility] Glucose 223(H) 70 - 199 mg/dL [facility] Comment: Interpretive Data Fasting glucose >/= 126 mg/dl is diagnostic for diabetes. ?? Fasting is defined as no caloric intake for at least 8 hours. Fasting glucose between 100 mg/dl to 125 mg/dl is diagnostic of prediabetes. In a patient with classic symptoms of hyperglycemia or hyperglycemic crisis, a random glucose >/= 200 mg/dl is diagnostic for diabetes. In the absence of unequivocal hyperglycemia, results should be confirmed by repeat testing. The classification and Diagnosis of Diabetes Diabetes Care 2021; 46: S19-S40. Current interpretive data was last revised 2022. Calcium 9.8 8.5 - 10.3 mg/dL [facility] Bilirubin, total 0.6 0.1 - 1.2 mg/dL [facility] Protein, pl 6.2(L) 6.5 - 8.5 g/dL [facility] Albumin 4.1 3.5 - 5.0 g/dL [facility] Alk phos 79 40 - 130 Units/L [facility] ALT 25 7 - 55 Units/L [facility] AST 15 10 - 50 Units/L [facility] Blood 12/26/2023 12:3 0 PM CDT 12/26/2023 12:38 PM CDT Burt Dos Santos MD PhD LAB BLOOD ORDERABLES Final Result VANESSA CASTRO [facility] [place] [address] * AudBase Results (12/16/2023 8:06 AM CDT) Provider Scanning AUDIOLOGY SERVICES ORDERABLES Final Result * (ABNORMAL) Differential, auto (12/05/2023 10:33 AM CDT) Neutrophil abs 5.4 1.5 - 6.5 K/cumm Comment:Testing performed by : [facility], [address] [place] [phone] Lymphocyte abs 5.4(H) 0.8 - 3.3 K/cumm CERNER BJ Comment:Testing performed by : [facility], [address] [place], [place] [phone] Monocyte abs 0.7 0.2 - 0.8 K/cumm CERGEOFF BJ Comment:Testing performed by : [facility], [address] [place], [place] [phone] Eosinophil abs 0.1 0.0 - 0.5 K/cumm CERGEOFF BJ Comment:Testing performed by : [facility], [address] [place] [phone] Basophil abs 0.1 0.0 - 0.1 K/cumm CERNER BJ Comment:Testing performed by : [facility], [address] [place] [phone] Neutrophil pct 46.2 % CERNER BJ Comment: Interpretive Data Percent cell count reference ranges are not reported, since discordance with absolute values may lead to misinterpretation of CBC data. Current Interpretive Data was last revised on 2017. Testing performed by: [facility], [address] [place] [phone] Lymphocyte pct 46.5 % CERNER BJ Comment: Interpretive Data Percent cell count reference ranges are not reported, since discordance with absolute values may lead to misinterpretation of CBC data. Current Interpretive Data was last revised on 2017. Testing performed by: [facility], [address] [place] [phone] Monocyte pct 5.8 % VANESSA CASTRO Comment: Interpretive Data Percent cell count reference ranges are not reported, since discordance with absolute values may lead to misinterpretation of CBC data. Current Interpretive Data was last revised on 2017. Testing performed by: [facility], [address] [place] [phone] Eosinophil pct 1.0 % VANESSA CASTRO Comment: Interpretive Data Percent cell count reference ranges are not reported, since discordance with absolute values may lead to misinterpretation of CBC data. Current Interpretive Data was last revised on 2017. Testing performed by: [facility], [address] [place] [phone] Basophil pct 0.5 % VANESSA CASTRO Comment: Interpretive Data Percent cell count reference ranges are not reported, since discordance with absolute values may lead to misinterpretation of CBC data. Current Interpretive Data was last revised on 2017. Testing performed by: [facility], [address] [place] [phone] Blood 12/05/2023 10:3 3 AM CDT 12/05/2023 10:34 AM CDT us Magali Phelan [place] SUBMARINE ELEMENT COORDINATOR LAB BLOOD ORDERABLES Final Res ult [facility] [place] [address] * (ABNORMAL) CBC with auto differential (12/05/2023 10:33 AM CDT) WBC 11.7(H) 3.8 - 9.9 K/cumm Comment:Testing performed by : [facility], [address] [place] [address] Hgb 14.6 13.0 - 17.5 g/dL CERNER BJ Comment:Testing performed by : [facility], [address] [place] [address] Hct 44.0 38.9 - 50.3 % CERNER BJ Comment:Testing performed by : [facility], [address] [place] [address] Plt 257 150 - 400 K/cumm CERNER BJ Comment:Testing performed by : [facility], [address] [place] [address] MPV 10.8(H) 6.8 - 10.4 fL CERNER BJ Comment:Testing performed by : [facility], [address] [place] [address] RBC 4.63 4.30 - 5.80 M/cumm CERNER BJ Comment:Testing performed by : [facility], [address] [place] [address] MCV 94.9 81.3 - 96.4 fL CERNER BJ Comment:Testing performed by : [facility], [address] [place] [address] MCH 31.5 27.1 - 33.3 pg CERNER BJ Comment:Testing performed by : [facility], [address] [place] [address] MCHC 33.2 32.3 - 35.7 g/dL CERNER BJ Comment:Testing performed by : [facility], [address] [place] [address] RDW CV 13.3 11.1 - 14.9 % CERNER BJ Comment:Testing performed by : [facility], [address] [place] [address] NRBC abs 0.00 0.00 - 0.01 K/cumm CERNER BJ Comment:Testing performed by : [facility], [address] [place] [address] Blood 12/05/2023 10:3 3 AM CDT 12/05/2023 10:34 AM CDT us Magali [place] SUBMARINE ELEMENT COORDINATOR LAB BLOOD ORDERABLES Final Res ult Performing Organization Address [facility]/ZIP Co de Phone Number VANESSA BELLA [facility] [place] [address] * eGFR (12/05/2023 10:24 AM CDT) eGFR >90 >=60 mL/min/1. 73 m2 Comment: Interpretive Data Reference Interval Normal ?>/= 90 mL/min/1.73m2 Mildly decreased* ? 60 - 89 mL/min/1.73m2 Mildly to moderately decreased ?45 - 59 mL/min/1.73m2 Moderately to severely decreased ??30 - 44 mL/min/1.73m2 Severely decreased ?15 - 29 mL/min/1.73m2 Kidney Failure ?< 15 ??mL/min/1.73m2 *Relative to young adult level Estimated glomerular filtration rate is determined by the 2020 CKD-EPI equation recommended by the National Kidney Foundation (A Unifying Approach to GFR Estimation: Recommendations of the NKF-ASK Task Force on Reassessing the Inclusion of Race in Diagnosing Kidney Disease, JASN 2020). The CKD-EPI equation should not be used for patients with unstable renal function and has not been validated in children and those over 70. Current interpretive data was last reviewed 2021. Blood 12/05/2023 10:2 4 AM CDT 12/05/2023 10:52 AM CDT us Burt Dos Santos MD PhD LAB BLOOD ORDERABLES Final Result Performing Organization Address [facility] Co de Phone Number VANESSA Hidalgo [facility] [place] [address] * Lactate dehydrogenase (LD) (12/05/2023 10:24 AM CDT) [facility] Lactate dehydrogenase (LDH) 153 100 - 250 Units/L Blood 12/05/2023 10:2 4 AM CDT 12/05/2023 10:52 AM CDT Magali S. [place] SUBMARINE ELEMENT COORDINATOR LAB BLOOD ORDERABLES Final Res ult Performing Organization Address [facility] Co de Phone Number [facility] [place] [address] * (ABNORMAL) IgG (12/05/2023 10:24 AM CDT) [facility] Immunoglobulin G 411(L) 700 - 1,600 mg/dL Blood 12/05/2023 10:2 4 AM CDT 12/05/2023 11:16 AM CDT [facility] [place] SUBMARINE ELEMENT COORDINATOR LAB BLOOD ORDERABLES Final Res ult Performing Organization Address [facility] de Phone Number [facility] [place] [address] * Comprehensive metabolic panel (12/05/2023 10:24 AM CDT) [facility] Sodium 139 135 - 145 mmol/L Potassium, pl 4.8 3.3 - 4.9 mmol/L [facility] Chloride 104 97 - 110 mmol/L [facility] CO2 28 22 - 32 mmol/L [facility] Anion gap 7 2 - 15 mmol/L [facility] BUN 20 6 - 25 mg/dL [facility] Creatinine 0.86 0.80 - 1.30 mg/dL [facility] Glucose 110 70 - 199 mg/dL [facility] Comment: Interpretive Data Fasting glucose >/= 126 mg/dl is diagnostic for diabetes. ?? Fasting is defined as no caloric intake for at least 8 hours. Fasting glucose between 100 mg/dl to 125 mg/dl is diagnostic of prediabetes. In a patient with classic symptoms of hyperglycemia or hyperglycemic crisis, a random glucose >/= 200 mg/dl is diagnostic for diabetes. In the absence of unequivocal hyperglycemia, results should be confirmed by repeat testing. The classification and Diagnosis of Diabetes Diabetes Care 202; 46: S19-S40. Current interpretive data was last revised 2022. Calcium 9.5 8.5 - 10.3 mg/dL CERNER [facility] Bilirubin, total 0.5 0.1 - 1.2 mg/dL CERNER BJ Protein, pl 6.5 6.5 - 8.5 g/dL CERNER BJ Albumin 4.1 3.5 - 5.0 g/dL CERNER [facility] Alk phos 86 40 - 130 Units/L CERNER BJ ALT 19 7 - 55 Units/L CERNER [facility]J AST 16 10 - 50 Units/[facility] Blood 12/05/2023 10:2 4 AM CDT 12/05/2023 10:52 AM CDT Burt Dos Santos MD PhD LAB BLOOD ORDERABLES Final Result [facility] [place] [address] * CT Chest Abdomen Pelvis W Contrast (06/13/2023 10:03 AM CDT) Anatomical Region Laterality Modality Body N/A Computed Tomogra phy 06/13/2023 10:3 6 AM CDT Impressions 06/13/2023 1:05 PM CDT 1. ??Unchanged mesenteric and retroperitoneal lymphadenopathy. ??Tiny subcentimeter mediastinal lymph nodes are stable. 2. ??Unchanged jazz appearance of the mesentery likely representing treated lymphoma. 3. ??Unchanged nonobstructing bilateral renal stones measuring up to 2 cm on left. Dictated by: Deyvi Pantoja MD The radiology attending physician has personally reviewed this study, and had reviewed and/or edited this written report and agrees with it. Electronically signed by: Gordon Otero M.D. Narrative 06/13/2023 1:05 PM CDT EXAMINATION: ??Computed tomography of the chest, abdomen and pelvis with intravenous contrast HISTORY: Lymphoma, history of hypogammaglobinemia TECHNIQUE: ??Transaxial computed tomographic images of the chest, abdomen and pelvis were obtained with intravenous contrast according to the standard protocol after the uneventful administration of 68 mL Opti-Ray 350 intravenous contrast. COMPARISON: 09/08/2020 FINDINGS: ?? Chest: Mild bibasilar atelectasis. ??Previously referenced pulmonary nodules no longer seen. ??No new or enlarging pulmonary nodules. ??No pleural effusion or pneumothorax. Tiny scattered subcentimeter mediastinal lymph nodes are unchanged. Esophagus is patulous and fluid-filled. ??Heart size is normal. ??No pericardial effusion. Abdomen/Pelvis: No focal hepatic lesion. ??Cholecystectomy. ??1.5 cm portacaval lymph node is unchanged. ??There is fatty atrophy of the pancreas. ??The adrenal glands are normal. ??Large nonobstructing left renal stone measuring up to 2 cm is unchanged. ??Tiny punctate nonobstructing right renal stone. ??Calcified granulomas in the spleen. Unchanged jazz appearance of the mesentery with numerous enlarged mesenteric lymph nodes such as a 1.7 cm mesenteric lymph node, table position 740.3 which is unchanged in size. ??Retroperitoneal lymphadenopathy also is unchanged compared to prior such as a 1.1 cm aortocaval lymph node, table position 706.3. The bowel is normal in caliber. ??No free intracranial fluid or gas. The abdominal aorta is normal in caliber with mild calcified atherosclerotic disease. No suspicious osseous lesions. Procedure Note Gordon Otero MD - 06/13/2023 EXAMINATION: Computed tomography of the chest, abdomen and pelvis with intravenous contrast HISTORY: Lymphoma, history of hypogammaglobinemia TECHNIQUE: Transaxial computed tomographic images of the chest, abdomen and pelvis were obtained with intravenous contrast according to the standard protocol after the uneventful administration of 68 mL Opti-Ray 350 intravenous contrast. COMPARISON: 09/08/2020 FINDINGS: Chest: Mild bibasilar atelectasis. Previously referenced pulmonary nodules no longer seen. No new or enlarging pulmonary nodules. No pleural effusion or pneumothorax. Tiny scattered subcentimeter mediastinal lymph nodes are unchanged. Esophagus is patulous and fluid-filled. Heart size is normal. No pericardial effusion. Abdomen/Pelvis: No focal hepatic lesion. Cholecystectomy. 1.5 cm portacaval lymph node is unchanged. There is fatty atrophy of the pancreas. The adrenal glands are normal. Large nonobstructing left renal stone measuring up to 2 cm is unchanged. Tiny punctate nonobstructing right renal stone. Calcified granulomas in the spleen. Unchanged jazz appearance of the mesentery with numerous enlarged mesenteric lymph nodes such as a 1.7 cm mesenteric lymph node, table position 740.3 which is unchanged in size. Retroperitoneal lymphadenopathy also is unchanged compared to prior such as a 1.1 cm aortocaval lymph node, table position 706.3. The bowel is normal in caliber. No free intracranial fluid or gas. The abdominal aorta is normal in caliber with mild calcified atherosclerotic disease. No suspicious osseous lesions. IMPRESSION: 1. Unchanged mesenteric and retroperitoneal lymphadenopathy. Tiny subcentimeter mediastinal lymph nodes are stable. 2. Unchanged jazz appearance of the mesentery likely representing treated lymphoma. 3. Unchanged nonobstructing bilateral renal stones measuring up to 2 cm on left. Dictated by: Deyvi Pantoja MD The radiology attending physician has personally reviewed this study, and had reviewed and/or edited this written report and agrees with it. Electronically signed by: Gordon Otero M.D. Burt Dos Santos MD PhD IMG CT PROCEDURES Fi nal Result * COLONOSCOPY REPORT (02/01/2017) Anatomical Region Laterality Modality Other Provider Scanning GI PROCEDURE ORDERABLES Final Result from Last 3 Months or Most Recently Relevant to Health Maintenance Additional Health Concerns Infection Onset Date Last Indicated C. difficile Comment:Backloaded December 21, 2010 09/21/2010 09/21/2010 Insurance MEDICARE [employer] MEDICARE HMO [facility] Address: [facility] [address] [place] [address] MEDICARE [employer] OPEN ACCESS [employer] CHOICE MEDICARE PPO [employer] OPEN ACCESS [employer] CHOICE MEDICARE PPO [facility] MEDICARE HMO Advance Directives For more information, please contact: [phone] * Full Code (Latest Code Status on File) Date Activated Date Inactivated Comments 06/12/2019 9:51 AM 06/15/2019 6:24 PM Care Teams Podiatric Surgeon Relationship Specialty Start Date End Date Lenin Ventura MD [address] [address] PCP - General 07/06/16 Lenin Ventura MD [address] [address] 07/06/16 Burt Dos Santos MD PhD [address] [id number] Medical Oncologist/Batch Tester Medical Oncology 06/16/19
--- OUTSIDE RECORDS SUMMARY | 2024-02-22 08:27 | XMS_ITS | Encounter Summary ---
Author Organization [facility] Address [address] [place] [address] Care Team Providers Care Stock Control Supervisor Name Role Phone Lenin Ventura MD Primary Care Provider [phone] Lenin Ventura MD Unavailable [phone] Burt Dos Santos MD PhD Unavailable [phone] Reason for Visit * Episode Based Medications (Routine) - Authorized Specialty Diagnoses / Procedures Referred By Trent delgado Referred To Contact Diagnoses Hypogammaglobulinemia (HCC) Procedures [place] GAMUNEX-C/GAMMAKED GAMUNEX Burt Dos Santos MD PhD [address] DIV IM BONE MARROW TRANSPLANT[address] [place] [address] Phone: tel: fax: [facility] [address] [facility] 7th [place] [address] Phone: tel: Referral ID Status Reason Start Date Expiration Date V isits Requested Visits Authorized [id number] Authorized 10/19/2019 08/02/2024 1 38 Encounter Details Date Type Department Care Team (Latest Contact Info) Description 01/23/2024 1:00 PM COMMERCIAL CENSUS TAKER Infusion [facility] - [facility] [address] [facility] [address] [place] [address] Hypogammaglobulinemia (HCC) (Primary Dx) Social History Tobacco Use Types Packs/Day Years Used Date Smoking Tobacco: Former Smokeless Tobacco: Never Alcohol Use Standard Drinks/Week Comments Not Currently 0 (1 standard drink = 0.6 oz pur e alcohol) Sex and Gender Information Value Date Recorded Sex Assigned at Not on file Legal Sex Male 9:45 AM COMMERCIAL CENSUS TAKER Gender Identity Not on file Sexual Orientation Not on file documented as of this encounter Last Filed Vital Signs Vital Sign Reading Time Taken Comments Blood Pressure 106/59 01/23/2024 6:05 PM COMMERCIAL CENSUS TAKER Pulse 77 01/23/2024 6:05 PM COMMERCIAL CENSUS TAKER Temperature 36.6 ??C (97.9 ??F) 01/23/2024 6:05 PM CS T Respiratory Rate 18 01/23/2024 6:05 PM COMMERCIAL CENSUS TAKER Oxygen Saturation 96% 01/23/2024 6:05 PM COMMERCIAL CENSUS TAKER Inhaled Oxygen Concentration - - Weight 120.4 kg (265 lb 6.9 oz) 01/23/2024 3:54 PM COMMERCIAL CENSUS TAKER Height - - Body Mass Index 32.31 01/06/2024 11:56 AM COMMERCIAL CENSUS TAKER documented in this encounter Nursing Notes * Emanuel Barraza RN - 01/23/2024 1:00 PM CST Oncology Nursing Note [facility] - INFUSION Jeff Abdullahi is a 73 y.o. male who presents for treatment cycle 29, of IVIG. Pre-treatment Nursing Assessment Nursing Assessment LOC: Alert, Awake Constitutional: Fatigue Fatigue: Constant Any falls since your last visit?: No Behavior: Calm Speech: Clear Language: No aphasia Vision: At baseline Peripheral Neuropathy: Yes Oral Mucosa Grade: Normal (0) Pt states has potential to be ?: N/A Shortness of Breath?: No Cough: Absent Appetite: Good Have You Recently Lost Weight Without Trying?: No Have you been eating poorly because of a decreased appetite?: No Malnutrition Screening Tool (MST) Score: 0 Nausea/Vomiting: Yes (indegestion) Abdomen: Soft Diarrhea: No Constipation: No Skin Condition/Temp: Warm, Dry Swelling: No Additional Notes: Encounter Vitals BP: 128/70 (01/23/2024 5:36 PM) Pulse: 79 (01/23/2024 5:36 PM) Resp: 16 (01/23/2024 5:36 PM) Temp: 36.6 ??C (97.9 ??F) (01/23/2024 5:36 PM) Temp src: Oral (01/23/2024 3:54 PM) SpO2: 97 % (01/23/2024 5:36 PM) Weight: 120.4 kg (265 lb 6.9 oz) (01/23/2024 3:54 PM) Pain Score: 0 - No pain Treatment Patient: does not require labs today. Pre blood return: Brisk Jeff Abdullahi tolerated treatment well. Patient was frequently observed and monitored throughout the administration of their treatment. Additional Notes: Handoff given to Ivana Palma RN for remainder of infusion Patient Education Treatment Education: Information/teaching given to patient including fall prevention, signs and symptoms of infection, bleeding, adverse reaction, symptom management, process and procedure related totoday's visit, and when to notify MD Response: Verbalizes understanding ERCIAL CENSUS TAKER * Ivana Palma RN - 01/23/2024 1:00 PM CST Oncology Nursing Note [facility] - INFUSION Assumed care of Jeff Abdullahi for remainder of treatment on 01/23/2024. Treatment Jeff Abdullahi tolerated treatment well. Additional Notes: Pt tolerated treatment well, no reaction. No questions or concerns at this time. Discharged in stable condition. Will call team with any issues that arise and will follow up as scheduled. Post blood return: Brisk IV access post infusion: NS Discharge Plan Discharge instructions given to patient. Future appointments given and reviewed with treatment plan. Discharge Mode: Ambulatory Accompanied by: Self Discharged To: Home ERCIAL CENSUS TAKER documented in this encounter Plan of Treatment Not on file documented as of this encounter Visit Diagnoses Diagnosis Hypogammaglobulinemia (HCC)- Primary Unspecified hypogammaglobulinemia documented in this encounter Administered Medications Inactive Administered Medications - up to 3 most recent administrations Medication Order MAR Action Action Date Dose Rate Site acetaminophen (TYLENOL) tablet 650 mg 650 mg, oral, Once, On [place] 01/23/24 at 1630, For 1 dose, Please give 30 minutes prior to IVIG.Indications:Hypogamm aglobulinemia (HCC) Given 01/23/2024 4:12 PM COMMERCIAL CENSUS TAKER 650 mg diphenhydrAMINE (BENADRYL) tab/cap 25 mg 25 mg, oral, Once, On [place] 01/23/24 at 1630, For 1 dose, Give 30 minutes prior to IVIG.Indications:Hypogamm aglobulinemia (HCC) Given 01/23/2024 4:12 PM COMMERCIAL CENSUS TAKER 25 mg famotidine (PEPCID) injection 20 mg 20 mg, intravenous, Administer over 2 Minutes, Once, On [place] 01/23/24 at 1630, For 1 doseIndications:Hypogamma globulinemia (HCC) Given 01/23/2024 4:16 PM COMMERCIAL CENSUS TAKER 20 mg immune globulin (GAMUNEX-C,GAMMAKED) 10 % infusion 35 g 35 g (rounded from 34.48 g = 400 mg/kg ? 86.2 kg [place] weight), intravenous, Once, On [place] 01/23/24 at 1700, For 1 dose, GamuNEX C SUBSEQUENT Infusion, 15 Minute Titration Patient Weight: 86.2 kg Initiate Infusion at 0.6 mL/kg/hr. If no reaction, may increase rate by 0.6 mL/kg/hr every 15 minutes, to a max of 4.8 mL/kg/hr 1 . 0.6 mL/kg/hr = Infuse 13 mL over 15 minutes (Rate = 52 mL/hr) 2 . 1.2 mL/kg/hr = Infuse 26 mL over 15 minutes (Rate = 103 mL/hr) 3 . 1.8 mL/kg/hr = Infuse 39 mL over 15 minutes (Rate = 155 mL/hr) 4 . 2.4 mL/kg/hr = Infuse 52 mL over 15 minutes (Rate = 207 mL/hr) 5 . 3.0 mL/kg/hr = Infuse 65 mL over 15 minutes (Rate = 259 mL/hr) 6 . 3.6 mL/kg/hr = Infuse 78 mL over 15 minutes (Rate = 310 mL/hr) 7 . 4.2 mL/kg/hr = Infuse 91 mL over 15 minutes (Rate = 362 mL/hr) 8 . 4.8 mL/kg/hr 103 for remainder (Rate = 414 mL/hr) GONZALES Titrations Only: Gamunex Initial: - Initiate infusion at 0.6 mL/kg/hr. If no reaction, may increase rate by 0.6 mL/kg/hr every 30 minutes, to a max of 4.8 mL/kg/hr Gamunex Subsequent: - Initiate at 0.6 mL/kg/hr. If no reaction, may increase rate by 0.6 mL/kg/hr every 15 minutes, to a max of 4.8 mL/kg/hr IVIG is to be dosed on IBW unless the actual body weight is less than ideal. If actual body weight is less than ideal body weight, [facility] pharmacies to adjust doses to use the actual body weight per P&T approved protocol. pharmacies to call prescriber for dose adjustments.Indications:H ypogammaglobulinemia (HCC) Rate/Dose Change 01/23/2024 6:40 PM COMMERCIAL CENSUS TAKER 362 mL/hr Rate/Dose Change 01/23/2024 6:24 PM COMMERCIAL CENSUS TAKER 312 mL/ hr Rate/Dose Change 01/23/2024 6:05 PM COMMERCIAL CENSUS TAKER 260 mL/ hr ondansetron (ZOFRAN) injection 8 mg 8 mg, intravenous, Administer over 2 Minutes, Once, On [place] 01/23/24 at 1630, For 1 doseIndications:Hypogammaglobulinemia (HCC) Given 01/23/2024 4:15 PM COMMERCIAL CENSUS TAKER 8 mg documented in this encounter Orders Nursing Count Last Ordered Date First Orde red Date ONCBCN NURSING COMMUNICATION [id number] 2 1 03/24/2023 VITAL SIGNS INTRA-INFUSION 1 01/23/2024 Appointment Requests Count Last Ordered Date Fi rst Ordered Date INFUSION APPT REQUEST 300 MIN 1 01/23/2024 documented in this encounter Additional Health Concerns Infection Onset Date Last Indicated Resolved Time C. difficile Comment:Backloaded December 21, 2010 09/21/2010 09/21/2010 documented as of this encounter Care Teams Stock Control Supervisor Relationship Specialty Start Date End Date Lenin Ventura MD [address] [address] PCP - General 07/06/16 Lenin Ventura MD [address] [id number] 07/06/16 Burt Dos Santos MD PhD [address] [address] Medical Oncologist/Glass Breaker Medical Oncology 06/16/19 documented as of this encounter
--- OUTSIDE RECORDS SUMMARY | 2024-02-22 08:27 | XMS_ITS | Encounter Summary ---
Author Organization [facility] Address [address] [place] [address] Phone Care Team Providers Care Well Control Instructor Name Role Phone Leinn Ventura MD Primary Care Provider [phone] Lenin Ventura MD Unavailable [phone] Burt Dos Santos MD PhD Unavailable [phone] Reason for Visit * Consultation (Routine) - Pending Review Specialty Diagnoses / Procedures Referred By Trent delgado Referred To Contact Audiology Diagnoses Sensorineural hearing loss (SNHL) of both ears Cass Olivia MD [address] [place] [address] Phone: tel: fax: [facility] (All Locations) Referral ID Status Reason Start Date Expiration Date Visits Requested Visits Authorized [id number] Pending Review Specialty Services Required 01/06/2024 02/04/2025 1 1 Encounter Details Date Type Department Care Team (Latest Contact Info) Description 01/06/2024 12:15 PM MASONRY TEACHER Procedure visit [facility] Otolaryngology [address] [facility] [address]th [place] [address] [place] [address] Lilian Scott Au.D. [address] [place] [address] Sensorineural hearing loss (SNHL) of both ears Social History Tobacco Use Types Packs/Day Years Used Date Smoking Tobacco: Former Smokeless Tobacco: Never Alcohol Use Standard Drinks/Week Comments Not Currently 0 (1 standard drink = 0.6 oz pur e alcohol) Sex and Gender Information Value Date Recorded Sex Assigned at Not on file Legal Sex Male 9:45 AM MASONRY TEACHER Gender Identity Not on file Sexual Orientation Not on file documented as of this encounter Procedure Notes * Lilian Scott Au.D. - 01/06/2024 12:15 PM CST Images from the original note were not included. Procedures Jenn Rubi CCC-A PATIENT: Jeff Abdullahi : 1950 TYPE OF SERVICE: Audiologic Evaluation DATE OF SERVICE: 01/06/2024 Audiogram completed per physician referral. See scanned audiogram for results. Detailed medical history was obtained by medical staff physician and reviewed - see brief history below and on audiogram. Results were reviewed with the patient by montessori toddler teacher and/or physician. Tests Completed: tympanometry, pure-tone air and bone conduction bilaterally Referring provider: Cass Olivia MD REASON FOR VISIT: Follow up Evaluation for bilateral otitis media with effusion; Pt reports continued decline in right hearing over past two weeks with aural fullness, improvement in left hearing. Denied otalgia. Reported dizziness the past week, causing him unable to work. RESULTS: Otoscopy: Right- clear canal; Left- clear canal; Tympanometry: Right Flat w/ normal ECV; Left Sig negative pressure; Audio: right: Essentially mild to profound mixed hearing loss; left: Essentially slight to moderately severe sensorineural hearing loss. Significant ear asymmetry with worsehearing in right ear; DNT speech audiometry Changes since last audio completed on 12/16/23: REC: retest post medical management, hearing aid evaluation pending medical clearance, hearing assistive technology, and hearing protection in noise Yamini Rubi CCC-A NRY TEACHER documented in this encounter Plan of Treatment Not on file documented as of this encounter Procedures Procedure Name Priority Date/Time Associated Diagnosis Comments AUDBASE RESULTS 01/06/2024 12:37 PM MASONRY TEACHER documented in this encounter Results * AudBase Results (01/06/2024 12:37 PM MASONRY TEACHER) Provider Scanning AUDIOLOGY SERVICES ORDERABLES Final Result documented in this encounter Visit Diagnoses Diagnosis Sensorineural hearing loss (SNHL) of both ears documented in this encounter Orders Outpatient Referral Count Last Ordered Date Fir st Ordered Date AMB REFERRAL TO AUDIOLOGY (ADULT) 1 024 documented in this encounter Additional Health Concerns Infection Onset Date Last Indicated Resolved Time C. difficile Comment:Backloaded December 21, 2010 09/21/2010 09/21/2010 documented as of this encounter Care Teams Well Control Instructor Relationship Specialty Start Date End Date Lenin Ventura MD [address] [address] PCP - General 07/06/16 Lenin Ventura MD [address] [address] 07/06/16 Burt Dos Santos MD PhD [address] [address] Medical Oncologist/Tap Out Operator Medical Oncology 06/16/19 documented as of this encounter
--- OUTSIDE RECORDS SUMMARY | 2024-02-22 08:27 | XMS_ITS ---
Author Organization [facility] [address] [facility] Address [address] [place] [address] Care Team Providers Care Payment Collector Name Role Phone Lenin Ventura MD Primary Care Provider [phone] Lenin Ventura MD Unavailable [phone] Burt Dos Santos MD PhD Unavailable [phone] Active Problems Patient Care Coordination No te Formatting of this note is d ifferent from the original. BMT Inpatient Care Coordination Overview Diagnosis CLL Treatment Plan Ibrutinib- on hold BMT/IEC/DCI Plan Clinical Trial Inpatient Floor [address] Reason for Admission acute worsening of persistent sinus symptoms, now with ear drainage, bilateral hearing loss Transplant/IEC Planning Patient Education Completed Consents Done [facility] Insurance Approvals/Issues Discharge Planning Anticipated Discharge Date 4-13 Issue to be Resolved Before Discharge Living Situation/Distance from [place], [place] Discharge To home Caregiver Self/ spouse [...] per BMT. Plan to discharge home with [facility] ENT notified to contact patient for follow up. - Continue Flonase, Zyrtec Thyroid nodule 06/12/2019 CLL (chronic lymphocytic leukemia) [...] - Continue Xanax 0.5 mg TID PRN Current Oncology Plans IV Maintenance Therapy Plan* Plan Start Date:10/22/2019 Plan Provider:Burt Dos Santos MD PhD Linked Problems CLL (chronic lymphocytic lane kemia) (HCC)Hypogammaglobulinemia (HCC) Treatment Medications No medications scheduled. Other Current Plans IMMUNE GLOBULIN (GAMUNEX) - 10% (GONZALES ONLY)* Plan Start Date:07/16/2019 Plan Provider:Burt Dos Santos MD PhD Linked Problems Hypogammaglobulinemia (HCC) Treatment Medications No medications scheduled. Past Plans BMT/ONC IP BLOOD PRODUCTS Plan Name Start Date Discontinue Date Treatment Medications Discontinue Reason Plan Provider COVID-19 - BMT (CMV NEGATIVE/UNTESTED) ADULT BLOOD AND PLATELET ADMINISTRATION FOR INPATIENT 06/12/2019 05/14/2023 No medications scheduled. Automatic discontinuation of dormant plans Ricardo Rizzo MD Oncology Chemotherapy Treatment Plan Name Start Date Discontinue Date Treatment Medications Discontinue Reason Plan Provider Cycles Ibrutinib PO Daily - CLL 05/16/2018 03/13/2023 ibrutinib (IMBRUVICA) Therapy Complete Burt Dos Santos MD PhD 3 of 12 cycles planned Radiation Treatments * No radiation treatments are documented for this patient in [facility]. Treatments may have been administered in another system. Lifetime Dose Tracking * Chemical Lifetime Dose Automatic Entry Manual Entr y DLP 18,050 mGycm 18,050 mGycm 0 mGycm
--- OUTSIDE RECORDS SUMMARY | 2024-02-22 08:27 | XMS_ITS | Encounter Summary ---
Author Organization [facility] Healthcare Address [address] [place] [address] Care Team Providers Care Personal Injury Litigation Paralegal Name Role Phone Lenin Ventura MD Primary Care Provider Lenin Ventura MD Unavailable [phone] Burt Dos Santos MD PhD Unavailable [phone] Encounter Details Date Type Department Care Team (Late st Contact Info) Description 12/05/2023 10:15 AM CDT Lab [facility] - [facility] [address] [facility] [place] [address] [place] [address] CLL (chronic lymphocytic leukemia) (HCC); Hypogammaglobulinemia (HCC) Social History Tobacco Use Types Packs/Day Years Used Date Smoking Tobacco: Former Smokeless Tobacco: Never Alcohol Use Standard Drinks/Week Comments Not Currently 0 (1 standard drink = 0.6 oz pur e alcohol) Sex and Gender Information Value Date Recorded Sex Assigned at Not on file Legal Sex Male 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 Gender Identity Not on file Sexual Orientation Not on file documented as of this encounter Plan of Treatment Not on file documented as of this encounter Procedures Procedure Name Priority Date/Time Associated Diagnosis Comments DIFFERENTIAL AUTO Routine 12/05/2023 10: 33 AM CDT Hypogammaglobulinem ia (HCC) CBC WITH AUTO DIFFERENTIAL Routine 12/05/2023 10:33 AM CDT Hypogammaglobulinem ia (HCC) EGFR Routine 12/05/2023 10:24 AM CDT CLL (chronic lymphocytic leukemia) (HCC) LACTATE DEHYDROGENASE Routine 12/05/2023 10:24 AM CDT Hypogammaglobulinem ia (HCC) IGG Routine 12/05/2023 10:24 AM CDT Hypogammaglobulinem ia (HCC) COMPREHENSIVE METABOLIC PANEL Routine 12/05/2023 10:24 AM CDT CLL (chronic lymphocytic leukemia) (HCC) documented in this encounter Results * (ABNORMAL) Differential, auto (12/05/2023 10:33 AM CDT) Neutrophil abs 5.4 1.5 - 6.5 K/cumm Comment:Testing performed by : [facility], [address] [place] [phone] Lymphocyte abs 5.4(H) 0.8 - 3.3 K/cumm [facility] Comment:Testing performed by : [facility], [address] [place] [phone] Monocyte abs 0.7 0.2 - 0.8 K/cumm [facility] Comment:Testing performed by : [facility], [address] [place] [phone] Eosinophil abs 0.1 0.0 - 0.5 K/cumm [facility] Comment:Testing performed by : [facility], [address] [place] [phone] Basophil abs 0.1 0.0 - 0.1 K/cumm [facility] Comment:Testing performed by : [facility], [address] [place] [phone] Neutrophil pct 46.2 % [facility] Comment: Interpretive Data Percent cell count reference ranges are not reported, since discordance with absolute values may lead to misinterpretation of CBC data. Current Interpretive Data was last revised on 2017. Testing performed by: [facility], [address] [place] [phone] Lymphocyte pct 46.5 % [facility] Comment: Interpretive Data Percent cell count reference ranges are not reported, since discordance with absolute values may lead to misinterpretation of CBC data. Current Interpretive Data was last revised on 2017. Testing performed by: [facility], [address] [place] [phone] Monocyte pct 5.8 % VANESSA CASTRO Comment: Interpretive Data Percent cell count reference ranges are not reported, since discordance with absolute values may lead to misinterpretation of CBC data. Current Interpretive Data was last revised on 2017. Testing performed by: [facility], [address] [place], [place] [id number] Eosinophil pct 1.0 % VANESSA CASTRO Comment: Interpretive Data Percent cell count reference ranges are not reported, since discordance with absolute values may lead to misinterpretation of CBC data. Current Interpretive Data was last revised on 2017. Testing performed by: [facility], [address] [place] [phone] Basophil pct 0.5 % VANESSA CASTRO Comment: Interpretive Data Percent cell count reference ranges are not reported, since discordance with absolute values may lead to misinterpretation of CBC data. Current Interpretive Data was last revised on 2017. Testing performed by: [facility], [address] [place] [phone] Blood 12/05/2023 10:3 3 AM CDT 12/05/2023 10:34 AM CDT us Magali Phelan [place] WEED CONTROLLER LAB BLOOD ORDERABLES Final Res ult VANESSA CASTRO One [facility] Department [place] [address] * (ABNORMAL) CBC with auto differential (12/05/2023 10:33 AM CDT) WBC 11.7(H) 3.8 - 9.9 K/cumm Comment:Testing performed by : [facility], [address] [place] [phone] Hgb 14.6 13.0 - 17.5 g/dL VANESSA CASTRO Comment:Testing performed by : [facility], [address] [place], [place] [id number] Hct 44.0 38.9 - 50.3 % CERNER [facility] Comment:Testing performed by : [facility], [address] [place], [place] [id number] Plt 257 150 - 400 K/cumm CERNER [facility]J Comment:Testing performed by : [facility], [address] [place], [place] [id number] MPV 10.8(H) 6.8 - 10.4 fL CERNER BJ Comment:Testing performed by : [facility], [address] [place], [place] [id number] RBC 4.63 4.30 - 5.80 M/cumm CERNER BJ Comment:Testing performed by : [facility], [address] [place], [place] [id number] MCV 94.9 81.3 - 96.4 fL CERNER BJ Comment:Testing performed by : [facility], [address] [place], [place] [id number] MCH 31.5 27.1 - 33.3 pg CERNER BJ Comment:Testing performed by : [facility], [address] [place], [place] [id number] MCHC 33.2 32.3 - 35.7 g/dL C[facility]ER [facility]J Comment:Testing performed by : [facility], [address] [place], [place] [id number] RDW CV 13.3 11.1 - 14.9 % CERNER [facility]J Comment:Testing performed by : [facility], [address] [place], [place] [id number] NRBC abs 0.00 0.00 - 0.01 K/cumm CERNER BJ Comment:Testing performed by : [facility], [address] [place], [place] [id number] Blood 12/05/2023 10:3 3 AM CDT 12/05/2023 10:34 AM CDT Magali Stapleton WEED CONTROLLER LAB BLOOD ORDERABLES Final Res ult Performing Organization Address City/[facility]/ZIP Co de Phone Number VANESSA CASTRO One [facility] Department [place] [address] * eGFR (12/05/2023 10:24 AM CDT) eGFR [...] of Race in Diagnosing Kidney Disease, JASN 202). The CKD-EPI equation should not be used for patients with unstable renal function and has not been validated in children and those over 70. Current interpretive data was last reviewed 2021. Blood 12/05/2023 10:2 4 AM CDT 12/05/2023 10:52 AM CDT us Burt Dos Santos MD PhD LAB BLOOD ORDERABLES Final Result Performing Organization Address City/[facility]/ZIP Co de Phone Number VANESSA CASTRO Gwen [facility] Department [place] [address] * (ABNORMAL) IgG (12/05/2023 10:24 AM CDT) Immunoglobulin G 411(L) 700 - 1,600 mg/dL Blood 12/05/2023 10:2 4 AM CDT 12/05/2023 11:16 AM CDT [facility] [place] WEED CONTROLLER LAB BLOOD ORDERABLES Final Res ult Performing Organization Address [facility] Co de Phone Number [facility] Department [place] [address] * Lactate dehydrogenase (LD) (12/05/2023 10:24 AM CDT) Pathologist [facility] Lactate dehydrogenase (LDH) 153 100 - 250 Units/L Blood 12/05/2023 10:2 4 AM CDT 12/05/2023 10:52 AM CDT [facility] S. [place] WEED CONTROLLER LAB BLOOD ORDERABLES Final Res ult Performing Organization Address [facility] de Phone Number [facility] Department [place] [address] * Comprehensive metabolic panel (12/05/2023 10:24 AM CDT) Pathologist [facility] Sodium 139 135 - 145 mmol/L Potassium, pl 4.8 3.3 - 4.9 mmol/L [facility] Chloride 104 97 - 110 mmol/L [facility] CO2 28 22 - 32 mmol/L [facility] Anion gap 7 2 - 15 mmol/L [facility] BUN 20 6 - 25 mg/dL [facility] Creatinine 0.86 0.80 - 1.30 mg/dL [facility] Glucose 110 70 - 199 mg/dL [facility] Comment: Interpretive Data Fasting glucose >/= [...] Calcium 9.5 8.5 - 10.3 mg/dL [facility] Bilirubin, total 0.5 0.1 - 1.2 mg/dL [facility] Protein, pl 6.5 6.5 - 8.5 g/dL [facility] Albumin 4.1 3.5 - 5.0 g/dL [facility] Alk phos 86 40 - 130 Units/L [facility] ALT 19 7 - 55 Units/L [facility] AST 16 10 - 50 Units/L [facility] Blood 12/05/2023 10:2 4 AM CDT 12/05/2023 10:52 AM CDT Burt Dos Santos MD PhD LAB BLOOD ORDERABLES Final Result [facility] One [facility] Department [place] [address] documented in this encounter Visit Diagnoses Diagnosis CLL (chronic lymphocytic leukemia) (HCC) Chronic lymphoid leukemia, without mention of having achieved remission Hypogammaglobulinemia (HCC) Unspecified hypogammaglobulinemia documented in this encounter Additional Health Concerns Infection Onset Date Last Indicated Resolved Time C. difficile Comment:Backloaded December 21, 2010 09/21/2010 09/21/2010 documented as of this encounter Care Teams Personal Injury Litigation Paralegal Relationship Specialty Start Date End Date Lenin Ventura MD [address] [address] PCP - General 07/06/16 Lenin Ventura MD [address] [address] 07/06/16 Burt Dos Santos MD PhD [address] [address] Medical Oncologist/Catastrophe Claims Supervisor Medical Oncology 06/16/19 documented as of this encounter
--- OUTSIDE RECORDS SUMMARY | 2024-02-22 08:27 | XMS_ITS | Encounter Summary ---
Author Organization [facility] Address [address] [place] [address] Phone Care Team Providers Care Paper Baling Machine Operator Name Role Phone Lenin Ventura MD Primary Care Provider [phone] Lenin Ventura MD Unavailable [phone] Burt Dos Santos MD PhD Unavailable [phone] Encounter Details Date Type Department Care Team (Late st Contact Info) Description 12/30/2023 Orders Only [facility] ([facility]) - [facility] ENT [address] [place] [id number] Cass Olivia MD [address] [place], [place] [id number] Social History Tobacco Use Types Packs/Day Years Used Date Smoking Tobacco: Former Smokeless Tobacco: Never Alcohol Use Standard Drinks/Week Comments Not Currently 0 (1 standard drink = 0.6 oz pur e alcohol) Sex and Gender Information Value Date Recorded Sex Assigned at Not on file 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 difficile Comment:Backloaded December 21, 2010 09/21/2010 09/21/2010 documented as of this encounter Care Teams Paper Baling Machine Operator Relationship Specialty Start Date End Date Lenin Ventura MD [address] [address] PCP - General 07/06/16 Lenin Ventura MD [address] [address] 07/06/16 Burt Dos Santos MD PhD [address] [id number] Medical Oncologist/Clin Asst Medical Oncology 06/16/19 documented as of this encounter
--- OUTSIDE RECORDS SUMMARY | 2024-02-22 08:27 | XMS_ITS | Encounter Summary ---
Author Organization [facility] Address [address] [place] [address] Phone Care Team Providers Care Electric Golf Cart Repairer Name Role Phone Lenin Ventura MD Primary Care Provider [phone] Lenin Ventura MD Unavailable [phone] Burt Dos Santos MD PhD Unavailable [phone] Reason for Visit * Reason Comments Tinnitus Sinusitis Encounter Details Date Type Department Care Team (Late st Contact Info) Description 12/16/2023 8:40 AM CDT Office Visit [facility] ([facility]) - [facility] ENT [address] [facility] [address]th [place] [address] [place] [address] Linh Estrella MD [address] [place] [address] CLL (chronic lymphocytic leukemia) (HCC) (Primary Dx); Otitis media with effusion, bilateral Social History Tobacco Use Types Packs/Day Years Used Date Smoking Tobacco: Former Smokeless Tobacco: Never Alcohol Use Standard Drinks/Week Comments Not Currently 0 (1 standard drink = 0.6 oz pur e alcohol) Sex and Gender Information Value Date Recorded Sex Assigned at Not on file 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 Sex Male 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 Gender Identity Not on file Sexual Orientation Not on file documented as of this encounter Last Filed Vital Signs Vital Sign Reading Time Taken Comments Blood Pressure - - Pulse - - Temperature - - Respiratory Rate - - Oxygen Saturation - - Inhaled Oxygen Concentration - - Weight 118.8 kg (262 lb) 12/16/2023 8:42 AM CDT Height 193 cm (6' 4 ) 12/16/2023 8:42 AM CDT Body Mass Index 31.89 12/16/2023 8:42 AM CDT documented in this encounter Ordered Prescriptions Prescription Sig Dispense Quantity Refills Last Filled Start Date End Date predniSONE (DELTASONE) 10 mg tablet Take 6 tablets (60 mg) by mouth daily for 7 days, THEN 5 tablets (50 mg) daily for 1 day, THEN 4 tablets (40 mg) daily for 1 day, THEN 3 tablets (30 mg) daily for 1 day, THEN 2 tablets (20 mg) daily for 1 day, THEN 1 tablet (10 mg) daily for 1 day. 57 tablet 12/16/2023 documented in this encounter Progress Notes * Linh Estrella MD - 12/16/2023 8:40 AM CDT Images from the original note were not included. Jeff Abdullahi was seen in consultation at the request of . No ref. provider found. Chief Complaint: follow-up Interval: He reports 2 months ago he started with dry cough and nasal congestion which then migrated. Since then he reports bilateral ear symptoms including ear fullness, congestion, and hearing loss. He has ahistory of CLL and his IgG levels are down and he will be starting infusions soon to recover these levels. From previous: HPI: Patient returns for follow-up [...] SURGERY [address] Shaquille King at [facility] LAPAROSCOPIC CHOLECYSTECTOMY 2006 Dr. Kingsley[facility] LYMPH NODE BIOPSY 2006 Past Family/Social History [...] file Gets together: Not on file Attends worship service: Not on file Active member of [...] (XANAX) 0.25 mg tablet Take 0.5-1 tablets by mouth 3 (three) times a day as needed for anxiety amoxicillin-clavulanate (AUGMENTIN) 875-125 mg per tablet Take 1 tablet by mouth every 12 (twelve) hours budesonide (PULMICORT) 0.5 mg/2 mL nebulizer solution Mix 1 capsule/ampule in 250 mL of saline irrigations (NeMerchMeMed Sinus Rinse Bottle) and irrigate each nostril with half of the bottle twice daily. 120 mL 6 Calquence, acalabrutinib mal, 100 mg tablet Take 1 tablet (100 mg total) by mouth 2 (two) times a day Swallow whole with water and with or without food 60 tablet 5 cholecalciferol (cholecalciferol) 1000 unit tablet Take 1 [...] BEDTIME traZODone (DESYREL) 50 mg tablet Take 50 mg by mouth nightly triamcinolone (KENALOG) 0.5 % cream APPLY TOPIALLY TO RASH TWICE DAILY NEEDED FOR UP TO 2 WEEKS AT A TIME zinc 50 mg tablet Take 50 mg by mouth daily 30 each 0 No current facility-administered medications for this visit. Allergies: Cefuroxime and Codeine, Immunizations: Immunization History Administered Date(s) Administered Influenza, Quadrivalent, Cell Culture-based MDCK, Preservative Free, Antibiotic Free, Ngicfbtxnegmt79/14/2019 Influenza, Quadrivalent, High Dose, Preservative Free, Intrr 10/29/2019 Influenza, Trivalent, IM (MDV) 01/29/2012 Pfizer SARS-CoV-2 Monovalent Vaccination (12+ Yrs) PURPLE 05/05/2020, [...] canal: normal Tympanic Membrane: Normal Middle ear: Clear effusion Left: External auditory canal: normal Tympanic Membrane: Normal Middle ear: Clear effusion EYES: EOM Intact, sclera anicteric, no conjunctival [...] intact and symmetric. Normal affect. GAIT: Normal. Diagnostics reviewed: Audiometric evaluation reviewed and consistent [...] and the patient elected to proceed with an oral steroid taper. We will reach out to his medical oncology team Magali Stapleton NP and Burt Dos Santos MD to see if they are okay with a prednisone taper. If symptoms do not resolve with oral prednisone taper we will consider bilateral tympanostomy tube placement. The note in its entirety has been confirmed by me, the attending physician. Parts of the note were initially recorded by my staff. I have seen and examined the patient, and was present for the entireservice/procedures performed. I agree with the findings and plan of care as initially documented inthe resident's/fellow's note and edited by me. Linh Estrella M.D. Otology and Neurotology Department of Otolaryngology [facility] in [email or web address] [email or web address] Office: Clinic: This note was created in part with the assistance of [employer] voice recognition software. Turf Farm Worker variances may occur. documented in this encounter Miscellaneous Notes * Addendum Note - Linh Estrella MD - 12/16/2023 8:40 AM CDTAddended by: LINH ESTRELLA on: 12/16/2023 09:09 AM Modules accepted: Orders documented in this encounter Plan of Treatment Not on file documented as of this encounter Visit Diagnoses Diagnosis CLL (chronic lymphocytic leukemia) (HCC)- Primary Chronic lymphoid leukemia, without mention of having achieved remission Otitis media with effusion, bilateral documented in this encounter Additional Health Concerns Infection Onset Date Last Indicated Resolved Time C. difficile Comment:Backloaded December 21, 2010 09/21/2010 09/21/2010 documented as of this encounter Care Teams Electric Golf Cart Repairer Relationship Specialty Start Date End Date Lenin Ventura MD [facility] [place] [address] PCP - General 07/06/16 Lenin Ventura MD [address] [id number] 07/06/16 Burt Dos Santos MD PhD [facility] [address] [place] [id number] Medical Oncologist/Ceiling Installer Medical Oncology 06/16/19 documented as of this encounter
--- OUTSIDE RECORDS SUMMARY | 2024-02-22 08:27 | XMS_ITS | Encounter Summary ---
Author Organization [facility] Healthcare Address [address] [place] [address] Care Team Providers Care Quality Control Microbiology Supervisor Name Role Phone Lenin Ventura MD Primary Care Provider [phone] Lenin Ventura MD Unavailable [phone] Burt Dos Santos MD PhD Unavailable [phone] Encounter Details Date Type Department Care Team (Late st Contact Info) Description 01/23/2024 12:00 PM BRASS MOLDER HELPER Lab [facility] - Lab Collection [address] [facility] [address] [place] [address] Hypogammaglobulinemia (HCC) Social History Tobacco Use Types Packs/Day Years Used Date Smoking Tobacco: Former Smokeless Tobacco: Never Alcohol Use Standard Drinks/Week Comments Not Currently 0 (1 standard drink = 0.6 oz pur e alcohol) Sex and Gender Information Value Date Recorded Sex Assigned at Not on file Legal Sex Male 9:45 AM BRASS MOLDER HELPER Gender Identity Not on file Sexual Orientation Not on file documented as of this encounter Plan of Treatment Not on file documented as of this encounter Procedures Procedure Name Priority Date/Time Associated Diagnosis Comments EGFR Routine 01/23/2024 12:12 PM BRASS MOLDER HELPER Hypogammaglobuline maddison (HCC) CBC WITH AUTO DIFFERENTIAL Routine 01/23/2024 12:12 PM BRASS MOLDER HELPER Hypogammaglobuline maddison (HCC) MANUAL DIFFERENTIAL Routine 01/23/2024 1 2:12 PM BRASS MOLDER HELPER Hypogammaglobuline maddison (HCC) COMPREHENSIVE METABOLIC PANEL Routine 01/23/2024 12:12 PM BRASS MOLDER HELPER Hypogammaglobuline maddison (HCC) documented in this encounter Results * eGFR (01/23/2024 12:12 PM BRASS MOLDER HELPER) Pathologist [facility] eGFR >90 >=60 mL/min/1. 73 m2 Comment: [...] reviewed 2021. Blood 01/23/2024 12:1 2 PM BRASS MOLDER HELPER 01/23/2024 12:37 PM BRASS MOLDER HELPER us Burt Dos Santos MD PhD LAB BLOOD ORDERABLES Final Result [facility]ES[facility] CASTRO [facility] [place] [address] * (ABNORMAL) Manual Differential (01/23/2024 12:12 PM BRASS MOLDER HELPER) Pathologist [facility] Cells Counted 100 Comment:Testing performed by : [facility], [address] [place], [place] [phone] Neutrophil abs 3.5 1.5 - 6.5 K/cumm [facility] Comment:Testing performed by : [facility], [address] [place], [place] [phone] Lymphocyte abs 6.0(H) 0.8 - 3.3 K/cumm [facility] Comment:Testing performed by : [facility], [address] [place] [address] Monocyte abs 0.1(L) 0.2 - 0.8 K/cumm [facility] Comment:Testing performed by : [facility], [address] [place], [place] [id number] Eosinophil abs 0.2 0.0 - 0.5 K/cumm [facility] Comment:Testing performed by : [facility], [address] [place], [place] [id number] Basophil abs 0.1 0.0 - 0.1 K/cumm [facility] Comment:Testing performed by : [facility], [address] [place] [phone] Neutrophil pct 33.0 % [facility] Comment: Interpretive Data Percent cell count reference ranges are not reported, since discordance with absolute values may lead to misinterpretation of CBC data. Current Interpretive Data was last revised on 2017. Testing performed by: [facility], [address] [place] [address] Lymphocyte pct 57.0 % [facility] Comment: Interpretive Data Percent cell count reference ranges are not reported, since discordance with absolute values may lead to misinterpretation of CBC data. Current Interpretive Data was last revised on 2017. Testing performed by: [facility], [address] [place] [address] Monocyte pct 1.0 % [facility] Comment: Interpretive Data Percent cell count reference ranges are not reported, since discordance with absolute values may lead to misinterpretation of CBC data. Current Interpretive Data was last revised on 2017. Testing performed by: [facility], [address] [place] [phone] Eosinophil pct 2.0 % [facility] Comment: Interpretive Data Percent cell count reference ranges are not reported, since discordance with absolute values may lead to misinterpretation of CBC data. Current Interpretive Data was last revised on 2017. Testing performed by: [facility], [address] [place] [phone] Basophil pct 1.0 % [facility] Comment: Interpretive Data Percent cell count reference ranges are not reported, since discordance with absolute values may lead to misinterpretation of CBC data. Current Interpretive Data was last revised on 2017. Testing performed by: [facility], [address] [place] [phone] Metamyelocyte pct 1.0 % [facility] Comment:Testing performed by : [facility], [address] [place] [phone] Variant lymph pct 5.0 % [facility] Comment:Testing performed by : [facility], [address] [place] [phone] RBC morphology Normal [facility] Comment:Testing performed by : [facility], [address] [place] [phone] Platelet estimate Adequate [facility] Comment:Testing performed by : [facility], [address] [place] [phone] Blood 01/23/2024 12:1 2 PM BRASS MOLDER HELPER 01/23/2024 12:34 PM BRASS MOLDER HELPER us Burt Dos Santos MD PhD LAB BLOOD ORDERABLES Final Result [facility] [place] [address] * (ABNORMAL) CBC with auto differential (01/23/2024 12:12 PM BRASS MOLDER HELPER) WBC 10.6(H) 3.8 - 9.9 K/cumm Comment:Testing performed by : [facility], [address] [place] [address] Hgb 14.1 13.0 - 17.5 g/dL [facility] Comment:Testing performed by : [facility], [address] [place], [place] [phone] Hct 41.8 38.9 - 50.3 % [facility] Comment:Testing performed by : [facility], [address] [place], [place] [phone] Plt 203 150 - 400 K/cumm [facility] Comment:Testing performed by : [facility], [address] [place] [address] MPV 10.4 6.8 - 10.4 fL [facility] Comment:Testing performed by : [facility], [address] [place], [place] [phone] RBC 4.37 4.30 - 5.80 M/cumm [facility] Comment:Testing performed by : [facility], [address] [place], [place] [phone] MCV 95.6 81.3 - 96.4 fL [facility] Comment:Testing performed by : [facility], [address] [place], [place] [phone] MCH 32.4 27.1 - 33.3 pg [facility] Comment:Testing performed by : [facility], [address] [place] [address] MCHC 33.9 32.3 - 35.7 g/dL [facility] Comment:Testing performed by : [facility], [address] [place] [address] RDW CV 14.1 11.1 - 14.9 % [facility] Comment:Testing performed by : [facility], [address] [place] [address] NRBC abs 0.00 0.00 - 0.01 K/cumm [facility] Comment:Testing performed by : [facility], [address] [place] [address] Blood 01/23/2024 12:1 2 PM BRASS MOLDER HELPER 01/23/2024 12:34 PM BRASS MOLDER HELPER us Burt Dos Santos MD PhD LAB BLOOD ORDERABLES Edited Result - Final [facility] [place] [address] * (ABNORMAL) Comprehensive metabolic panel (01/23/2024 12:12 PM BRASS MOLDER HELPER) Sodium 140 135 - 145 mmol/L Potassium, pl 4.5 3.3 - 4.9 mmol/L [facility] Chloride 105 97 - 110 mmol/L [facility] CO2 29 22 - 32 mmol/L [facility] Anion gap 6 2 - 15 mmol/L [facility] BUN 18 6 - 25 mg/dL [facility] Creatinine 0.77(L) 0.80 - 1.30 mg/dL [facility] Glucose 125 70 - 199 mg/dL [facility] Comment: Interpretive Data Fasting glucose >/= [...] 2022. Calcium 9.0 8.5 - 10.3 mg/dL [facility] Bilirubin, total 0.4 0.1 - 1.2 mg/dL [facility] Protein, pl 5.9(L) 6.5 - 8.5 g/dL [facility] Albumin 3.9 3.5 - 5.0 g/dL [facility] Alk phos 90 40 - 130 Units/L [facility] ALT 36 7 - 55 Units/L [facility] AST 24 10 - 50 Units/L [facility] Blood 01/23/2024 12:1 2 PM BRASS MOLDER HELPER 01/23/2024 12:37 PM BRASS MOLDER HELPER Burt Dos Santos MD PhD LAB BLOOD ORDERABLES Final Result [facility] [place] [address] documented in this encounter Visit Diagnoses Diagnosis Hypogammaglobulinemia (HCC) Unspecified hypogammaglobulinemia documented in this encounter Orders Appointment Requests Count Last Ordered Date Fi rst Ordered Date ONCBCN LAB APPOINTMENT 1 01/23/2024 documented in this encounter Additional Health Concerns Infection Onset Date Last Indicated Resolved Time C. difficile Comment:Backloaded December 21, 2010 09/21/2010 09/21/2010 documented as of this encounter Care Teams Quality Control Microbiology Supervisor Relationship Specialty Start Date End Date Lenin Ventura MD [address] [address] PCP - General 07/06/16 Lenin Ventura MD [address] [address] 07/06/16 Burt Dos Santos MD PhD [address] [address] Medical Oncologist/Dumpling Machine Operator Medical Oncology 06/16/19 documented as of this encounter
--- OUTSIDE RECORDS SUMMARY | 2024-02-22 08:27 | XMS_ITS | Encounter Summary ---
Author Organization [facility] Address [address] [place] [address] Phone Care Team Providers Care Foot Tender Name Role Phone Lenin Ventura MD Primary Care Provider [phone] Lenin Ventura MD Unavailable [phone] Burt Dos Santos MD PhD Unavailable [phone] Encounter Details Date Type Department Care Team (Late st Contact Info) Description 12/30/2023 Telephone [facility] ([facility]) - Health system ENT [address] [facility] Advanced Medicine 11th [place] [address] [place] [address] Cass Olivia MD [address] [place], [place] [id number] Social History Tobacco Use Types Packs/Day Years Used Date Smoking Tobacco: Former Smokeless Tobacco: Never Alcohol Use Standard Drinks/Week Comments Not Currently 0 (1 standard drink = 0.6 oz pur e alcohol) Sex and Gender Information Value Date Recorded Sex Assigned at Not on file Legal Sex Male 9:45 AM SAFETY INSTRUCTION POLICE OFFICER Gender Identity Not on file Sexual Orientation Not on file documented as of this encounter Miscellaneous Notes * Telephone Encounter - Hodan Menchaca Bret - 12/30/2023 10:51 AM CDT Images from the original note were not included. You Jeff Abdullahi47 minutes ago (10:03 AM) LEI Dr Olivia would like to add a 6 day course of steroids if you can tolerate it. If it is not getting better he can see you next Saturday or Saturday. Would you like to try the Medrol dose pack Cass Olivia MD You56 minutes ago (9:54 AM) [place] Can also add medrol if he tolerates steroids otherwise; I can see him next Saturday or Saturday if notgetting better or if needed this Saturday at [facility] Cass Palacios MD3 hours ago (7:05 AM) LEI See his note below, there is a note from Cha Smith BAND PRESSER from 12/27 in his chart. She started him onFloxin and Doxy. Jeff Witt Ent Jagjit Ambriz (supporting Cass Olivia MD)5 hours ago (4:53 AM) This past weekend I got a severe ear infection in my right ear. I woke up with a lot of pain and pressure. Saturday evening my right ear started popping and I have fluid draining from my ear. I went to [facility] urgent care Saturday evening. You see the results in my chart. What do we now? documented in this encounter Plan of Treatment Not on file documented as of this encounter Visit Diagnoses Not on filedocumented in this encounter Additional Health Concerns Infection Onset Date Last Indicated Resolved Time C. difficile Comment:Backloaded December 21, 2010 09/21/2010 09/21/2010 documented as of this encounter Care Teams Foot Tender Relationship Specialty Start Date End Date Lenin Ventura MD [address] [address] PCP - General 07/06/16 Lenin Ventura MD [address] [address] 07/06/16 Burt Dos Santos MD PhD [address] [place] [address] Medical Oncologist/Maintenance Representative Medical Oncology 06/16/19 documented as of this encounter
--- OUTSIDE RECORDS SUMMARY | 2024-02-22 08:27 | XMS_ITS | Encounter Summary ---
Author Organization [facility] Healthcare Address [address] [place] [address] Care Team Providers Care Unit Aid Name Role Phone Lenin Ventura MD Primary Care Provider [phone] Lenin Ventura MD Unavailable [phone] Burt Dos Santos MD PhD Unavailable [phone] Reason for Visit * Reason Comments Ear Problem Fluid build up on . ENT MD gave long taper of Prednisone.Today has had increasing pain down to jaw and to top of headLaid on opposite side and feels like fluid. Clear drainage from right ear. IGG infusion on . Taking IBU for pain control and some Dayquil Encounter Details Date Type Department Care Team (Late st Contact Info) Description 12/28/2023 7:45 PM CDT Office Visit [facility] at [address] [address] Cha Smith NP [address] [place] [address] [address] [place] [address] Non-recurrent acute suppurative otitis media of right ear with spontaneous rupture of tympanic membrane (Primary Dx) Social History Tobacco Use Types Packs/Day Years Used Date Smoking Tobacco: Former Smokeless Tobacco: Never Alcohol Use Standard Drinks/Week Comments Not Currently 0 (1 standard drink = 0.6 oz pur e alcohol) Sex and Gender Information Value Date Recorded Sex Assigned at Not on file Legal Sex Male 9:45 AM 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 Gender Identity Not on file Sexual Orientation Not on file documented as of this encounter Last Filed Vital Signs Vital Sign Reading Time Taken Comments Blood Pressure 125/73 12/28/2023 6:37 PM CDT Pulse 67 12/28/2023 6:37 PM CDT Temperature 36.9 ??C (98.5 ??F) 12/28/2023 6:37 PM CD T Respiratory Rate 20 12/28/2023 6:37 PM CDT Oxygen Saturation 98% 12/28/2023 6:37 PM CDT Inhaled Oxygen Concentration - - Weight 121.6 kg (268 lb) 12/28/2023 6:37 PM CDT Height 193 cm (6' 4 ) 12/28/2023 6:37 PM CDT Body Mass Index 32.62 12/28/2023 6:37 PM CDT documented in this encounter Patient Instructions * Patient Instructions* Cha Smith, COMMUNITY ORGANIZER - 12/28/2023 7:45 PM CDT The treatment for Ear Infections (otitis media) may include any of the following: Take antibiotics as prescribed until they are gone. Your ear pain should begin to improve over the next 24-72 hours, however the fluid behind your ear drum(s) can take up to 2 weeks to spontaneously resolve, your ear may sound muffled or pop off and on during this 2 weeks, this is normal. For ear pain: You may take Tylenol (acetaminophen) or Advil/Motrin (ibuprofen) as needed for pain. Please follow package directions. A warm (not hot) heating pad held over the ear can also help relieve the pain from the earache. Youshould use a thin cloth such as a dry washcloth between your skin and the heating pad. Things you can do to help your ear return to normal: Drink plenty of fluids Take a once day antihistamine like claritin or zytec Sleep with your head of bed elevated to encourage drainage You can try an OTC antihistamine nasal spray, like Nasacort, to help the congestion as well. Adults may chew gum, or suck on lozenges to encourage your eustachian tube to drain Follow up with your Primary Care Physician in 2 weeks for ear recheck or sooner if symptoms worsen or are not improving as planned. GO TO THE ER WITH ANY NEW ONSET OF FEVER, PAIN BEHIND THE EAR AND/OR REDNESS OVER THE BONE BEHIND THE EAR, OR SWELLING OF THE EXTERNAL EAR AND/OR EXTERNAL EAR APPEARING TO BE DISPLACED DOWNWARD. THESE ARE ALL SIGNS OF A SERIOUS COMPLICATION AND REQUIRES IMMEDIATE ATTENTION. * Attachments The following attachments cannot be sent through Care Everywhere. * Ear Infection (Cytogenetic Technologist) (Micronesian) documented in this encounter Ordered Prescriptions Prescription Sig Dispense Quantity Refills Last Filled Start Date End Date ofloxacin (FLOXIN) 0.3 % otic solutionIndication s:Non-recurrent acute suppurative otitis media of right ear with spontaneous rupture of tympanic membrane Administer 10 drops into the right ear daily for 7 days 10 mL 12/28/2023 4 ciprofloxacin-dexA METHasone (CIPRODEX) otic suspensionIndicati ons:Non-recurrent acute suppurative otitis media of right ear with spontaneous rupture of tympanic membrane Administer 4 drops into the right ear 2 (two) times a day for 7 days 7.5 mL 12/28/2023 4 doxycycline (VIBRAMYCIN) 100 mg capsuleIndications :Non-recurrent acute suppurative otitis media of right ear with spontaneous rupture of tympanic membrane Take 1 tablet/capsule (100 mg total) by mouth 2 (two) times a day for 7 days 14 tablet/capsul e 12/28/2023 4 documented in this encounter Progress Notes * Cha Smith NP - 12/28/2023 7:45 PM CDT Images from the original note were not included. Patient ID: Jeff Abdullahi is a 73 y.o. male followed by Lenin Ventura MD Chief Complaint Patient presents with Ear Problem Fluid build up on 12/16/23. ENT MD gave long taper of Prednisone. Today has had increasing pain down to jaw and to top of head Laid on opposite side and feels like fluid. Clear drainage from right ear. IGG infusion on . Taking IBU for pain control and some Dayquil Patient presents to the clinic with reports of right ear pain for almost 2 weeks and drainage from ear for 1 day. Patient reports that he was put on prednisone to help with the fluid behind his ear however his symptoms got worse and then today he felt a rupture and fluid from his ear. Denies fevers, trauma to the ear, dizziness, difficulty breathing, and rash. He has taken no dssb-wqx-xiygxui medications but did take prednisone for his symptoms. Patient has a history of ear issues and recently had tubes in his ears in 2019. Review of Systems Constitutional: Negative for chills, fatigue and fever. HENT: Positive for ear discharge (right) and ear pain (right). Negative for congestion, postnasal drip, rhinorrhea, sinus pressure and sore throat. Respiratory: Negative for cough, shortness of breath and wheezing. Cardiovascular: Negative for chest pain. Gastrointestinal: Negative for nausea. Musculoskeletal: Negative for myalgias. Neurological: Negative for headaches. Vitals: 12/28/23 1837 BP: 125/73 BP Location: Right arm Patient Position: Sitting Pulse: 67 Resp: 20 Temp: 36.9 ??C (98.5 ??F) TempSrc: Oral SpO2: 98% Weight: 121.6 kg (268 lb) Height: 193 cm (6' 4 ) Physical Exam Vitals reviewed. Constitutional: General: He is not in acute distress. Appearance: Normal appearance. He is not ill-appearing. HENT: Head: Normocephalic. Right Ear: External ear normal. Drainage and tenderness present. No swelling. No mastoid tenderness. Left Ear: Tympanic membrane, ear canal and external ear normal. No middle ear effusion. Tympanic membrane is not erythematous or bulging. Ears: Comments: Can not visualize TM on right side due to drainage in ear canal Nose: No congestion or rhinorrhea. Mouth/Throat: Lips: [place]. Mouth: Mucous membranes are moist. Pharynx: Uvula midline. No pharyngeal swelling, oropharyngeal exudate or posterior oropharyngeal erythema. Cardiovascular: Rate and Rhythm: Normal rate and regular rhythm. Pulmonary: Effort: Pulmonary effort is normal. No respiratory distress. Breath sounds: Normal breath sounds. No decreased breath sounds or wheezing. Lymphadenopathy: Cervical: No cervical adenopathy. Skin: General: Skin is warm. Neurological: Mental Status: He is oriented to person, place, and time. Psychiatric: Behavior: Behavior is cooperative. Diagnoses and all orders for this visit: Non-recurrent acute suppurative otitis media of right ear with spontaneous rupture of tympanic membrane (Primary) - doxycycline (VIBRAMYCIN) 100 mg capsule; Take 1 tablet/capsule (100 mg total) by mouth 2 (two) times a day for 7 days - ofloxacin (FLOXIN) 0.3 % otic solution; Administer 10 drops into the right ear daily for 7 days No orders of the defined types were placed in this encounter. Assessment/Plan --will treat with oral antibiotic and antibiotic eardrops. It was documented that patient had fluidbehind right ear 2 weeks ago, assumption is eardrum ruptured after an infection developed. # Ear infection --start ofloxacin and doxycycline. (chose doxycycline due to allergies and pt reports that Amoxicillin does not work) --schedule follow up appointment with ENT --avoid submersion in water until completion of antibiotics --tylenol/motrin for fever/pain, use as directed --avoid q-tips --ED presentation with one or more of the following symptoms: fever uncontrolled with antipyretics,shortness of breath, chest discomfort, uncontrolled n/v/d --consider f/u after completion of abx for ear re-check --f/u with PCP in 3-5 days if symptoms do not improve/worsen Disposition Treatment plan including expectations, follow up, and return precautions discussed with patient/parent, verbalizes understanding. Medication dosage, use, and potential adverse reactions discussed with patient/parent. Advised to follow up with PCP if symptoms do not resolve as expected or sooner if condition worsens. Discussed Signs/symptoms warranting ER evaluation including worsening fever, increased shortness ofbreath, chest pain, severe N/V/D, or any other worrisome symptoms Patient and/or guardian was given an opportunity to ask questions, questions answered. Patient Education The treatment for Ear Infections (otitis media) may include any of the following: Take antibiotics as prescribed until they are gone. Your ear pain should begin to improve over the next 24-72 hours, however the fluid behind your ear drum(s) can take up to 2 weeks to spontaneously resolve, your ear may sound muffled or pop off and on during this 2 weeks, this is normal. For ear pain: You may take Tylenol (acetaminophen) or Advil/Motrin (ibuprofen) as needed for pain. Please follow package directions. A warm (not hot) heating pad held over the ear can also help relieve the pain from the earache. Youshould use a thin cloth such as a dry washcloth between your skin and the heating pad. Things you can do to help your ear return to normal: Drink plenty of fluids Take a once day antihistamine like claritin or zytec Sleep with your head of bed elevated to encourage drainage You can try an OTC antihistamine nasal spray, like Nasacort, to help the congestion as well. Adults may chew gum, or suck on lozenges to encourage your eustachian tube to drain Follow up with your Primary Care Physician in 2 weeks for ear recheck or sooner if symptoms worsen or are not improving as planned. GO TO THE ER WITH ANY NEW ONSET OF FEVER, PAIN BEHIND THE EAR AND/OR REDNESS OVER THE BONE BEHIND THE EAR, OR SWELLING OF THE EXTERNAL EAR AND/OR EXTERNAL EAR APPEARING TO BE DISPLACED DOWNWARD. THESE ARE ALL SIGNS OF A SERIOUS COMPLICATION AND REQUIRES IMMEDIATE ATTENTION. Cha Smith NP This office note has been partially dictated using Site Tour software, and as a result portions of the record may have been created with this software. Occasional wrong-word or '[id number]' substitutions may have occurred due to the inherent limitations of voice recognition software. Read the chartcarefully and recognize, using context, where substitutions have occurred. documented in this encounter Plan of Treatment Not on file documented as of this encounter Visit Diagnoses Diagnosis Non-recurrent acute suppurative otitis media of right ear with spontaneous rupture of tympanic membrane- Primary documented in this encounter Discontinued Medications Medication Sig Discontinue Reason Start Date End Da te ciprofloxacin-dexAMETHa sone (CIPRODEX) otic suspensionIndications:N on-recurrent acute suppurative otitis media of right ear with spontaneous rupture of tympanic membrane Administer 4 drops into the right ear 2 (two) times a day for 7 days Alternate therapy 12/28/2023 12/28/2023 documented as of this encounter Additional Health Concerns Infection Onset Date Last Indicated Resolved Time C. difficile Comment:Backloaded December 21, 2010 09/21/2010 09/21/2010 documented as of this encounter Care Teams Unit Aid Relationship Specialty Start Date End Date Lenin Ventura MD [address] [employer] [address] PCP - General 07/06/16 Lenin Ventura MD [address] [employer] [id number] 07/06/16 Burt Dos Santos MD PhD [address] [address] Medical Oncologist/Fireworks Assembler Medical Oncology 06/16/19 documented as of this encounter
--- OUTSIDE RECORDS SUMMARY | 2024-02-22 08:27 | XMS_ITS | Encounter Summary ---
Author Organization [facility] Address [address] [place] [address] Phone Care Team Providers Care Call Center Assistant Name Role Phone Lenin Ventura MD Primary Care Provider [phone] Lenin Ventura MD Unavailable [phone] Burt Dos Santos MD PhD Unavailable [phone] Encounter Details Date Type Department Care Team (Latest Contact Info) Description 12/16/2023 8:20 AM CDT Procedure visit [facility] Otolaryngology [address] [facility] 11th [place] [address] [place] [address] Mixed conductive and sensorineural hearing loss of both ears (Primary Dx) Social History Tobacco Use Types Packs/Day Years Used Date Smoking Tobacco: Former Smokeless Tobacco: Never Alcohol Use Standard Drinks/Week Comments Not Currently 0 (1 standard drink = 0.6 oz pur e alcohol) Sex and Gender Information Value Date Recorded Sex Assigned at Not on file 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 - 12/16/2023 8:20 AM CDT Images from the original note were not included. Procedures PATIENT: Jeff Abdullahi : 1950 TYPE OF SERVICE: Audiologic Evaluation DATE OF SERVICE: 12/16/2023 Referral Source: Cass Olivia MD Audiogram completed per physician referral. See scanned audiogram for results. Detailed medical history was obtained by medical case worker and reviewed - see notes on audiogram for brief history. Results were reviewed with the patient by electric relay tester and/or physician. Tests performed: basic comprehensive audiometry and tympanometry documented in this encounter Plan of Treatment Not on file documented as of this encounter Procedures Procedure Name Priority Date/Time Associated Diagnosis Comments AUDBASE RESULTS 12/16/2023 8:06 AM CDT documented in this encounter Results * AudBase Results (12/16/2023 8:06 AM CDT) Provider Scanning AUDIOLOGY SERVICES ORDERABLES Final Result documented in this encounter Visit Diagnoses Diagnosis Mixed conductive and sensorineural hearing loss of both ears- Primary documented in this encounter Additional Health Concerns Infection Onset Date Last Indicated Resolved Time C. difficile Comment:Backloaded December 21, 2010 09/21/2010 09/21/2010 documented as of this encounter Care Teams Call Center Assistant Relationship Specialty Start Date End Date Lenin Ventura MD [address] [address] PCP - General 07/06/16 Lenin Ventura MD [address] [address] 07/06/16 Burt Dos Santos MD PhD [address] [address] Medical Oncologist/Sales Support Administrator Medical Oncology 06/16/19 documented as of this encounter
--- OUTSIDE RECORDS SUMMARY | 2024-02-22 08:27 | XMS_ITS | Encounter Summary ---
Author Organization [facility] Healthcare Address [address] [place] [address] Care Team Providers Care Regulatory Agency Director Name Role Phone Lenin Ventura MD Primary Care Provider [phone] Lenin Ventura MD Unavailable [phone] Burt Dos Santos MD PhD Unavailable [phone] Encounter Details Date Type Department Care Team (Late st Contact Info) Description 12/26/2023 12:[address] 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 Gender Identity Not on file Sexual Orientation Not on file documented as of this encounter Plan of Treatment Not on file documented as of this encounter Procedures Procedure Name Priority Date/Time Associated Diagnosis Comments EGFR Routine 12/26/2023 12:30 PM CDT Hypogammaglobuline maddison (HCC) DIFFERENTIAL AUTO Routine 12/26/2023 12: 30 PM CDT Hypogammaglobuline maddison (HCC) CBC WITH AUTO DIFFERENTIAL Routine 12/26/2023 12:30 PM CDT Hypogammaglobuline maddison (HCC) COMPREHENSIVE METABOLIC PANEL Routine 12/26/2023 12:30 PM CDT Hypogammaglobuline maddison (HCC) documented in this encounter Results * eGFR (12/26/2023 12:30 PM CDT) [facility] eGFR >90 >=60 mL/min/1. 73 m2 Comment: [...] PhD LAB BLOOD ORDERABLES Final Result [facility] [address] Department [place] [address] * (ABNORMAL) Differential, auto (12/26/2023 12:30 PM CDT) Neutrophil abs 7.9(H) 1.5 - 6.5 K/cumm Comment:Testing performed by : [facility], [address] [place] [phone] Lymphocyte abs 3.1 0.8 - 3.3 K/cumm [facility] Comment:Testing performed by : [facility], [address] [place] [phone] Monocyte abs 0.4 0.2 - 0.8 K/cumm [facility] Comment:Testing performed by : [facility], [address] [place], [place] [phone] Eosinophil abs 0.0 0.0 - 0.5 K/cumm [facility] Comment:Testing performed by : [facility], [address] [place] [phone] Basophil abs 0.0 0.0 - 0.1 K/cumm [facility] Comment:Testing performed by : [facility], [address] [place] [phone] Neutrophil pct 69.7 % [facility] Comment: Interpretive Data Percent cell count reference ranges are not reported, since discordance with absolute values may lead to misinterpretation of CBC data. Current Interpretive Data was last revised on 2017. Testing performed by: [facility], [address] [place] [phone] Lymphocyte pct 26.8 % [facility] Comment: Interpretive Data Percent cell count reference ranges are not reported, since discordance with absolute values may lead to misinterpretation of CBC data. Current Interpretive Data was last revised on 2017. Testing performed by: [facility], [address] [place] [phone] Monocyte pct 3.1 % [facility] Comment: Interpretive Data Percent cell count reference ranges are not reported, since discordance with absolute values may lead to misinterpretation of CBC data. Current Interpretive Data was last revised on 2017. Testing performed by: [facility], [address] [place] [phone] Eosinophil pct 0.1 % [facility] Comment: Interpretive Data Percent cell count reference ranges are not reported, since discordance with absolute values may lead to misinterpretation of CBC data. Current Interpretive Data was last revised on 2017. Testing performed by: [facility], [address] [place], [place] [phone] Basophil pct 0.3 % [facility] Comment: Interpretive Data Percent cell count reference ranges are not reported, since discordance with absolute values may lead to misinterpretation of CBC data. Current Interpretive Data was last revised on 2017. Testing performed by: [facility], [address] [place] [address] Blood 12/26/2023 12:3 0 PM CDT 12/26/2023 12:36 PM CDT Burt Dos Santos MD PhD LAB BLOOD ORDERABLES Final Result [facility] [address] [place] [address] * (ABNORMAL) CBC with auto differential (12/26/2023 12:30 PM CDT) WBC 11.4(H) 3.8 - 9.9 K/cumm Comment:Testing performed by : [facility], [address] [place] [address] Hgb 14.4 13.0 - 17.5 g/dL [facility] Comment:Testing performed by : [facility], [address] [place] [address] Hct 43.7 38.9 - 50.3 % [facility] Comment:Testing performed by : [facility], [address] [place] [address] Plt 186 150 - 400 K/cumm [facility] Comment:Testing performed by : [facility], [address] [place] [address] MPV 10.7(H) 6.8 - 10.4 fL [facility] Comment:Testing performed by : [facility], [address] [place] [address] RBC 4.49 4.30 - 5.80 M/cumm [facility] Comment:Testing performed by : [facility], [address] [place] [address] MCV 97.3(H) 81.3 - 96.4 fL [facility] Comment:Testing performed by : [facility], [address] [place] [address] MCH 32.1 27.1 - 33.3 pg [facility] Comment:Testing performed by : [facility], [address] [place] [address] MCHC 33.0 32.3 - 35.7 g/dL [facility] Comment:Testing performed by : [facility], [address] [place] [address] RDW CV 14.0 11.1 - 14.9 % [facility] Comment:Testing performed by : [facility], [address] [place] [address] NRBC abs 0.00 0.00 - 0.01 K/cumm [facility] Comment:Testing performed by : [facility], [address] [place] [address] Blood 12/26/2023 12:3 0 PM CDT 12/26/2023 12:36 PM CDT Burt Dos Santos MD PhD LAB BLOOD ORDERABLES Final Result [facility] [address] Department of Laboratories [place], [place] [id number] * (ABNORMAL) Comprehensive metabolic panel (12/26/2023 12:30 PM CDT) Sodium 134(L) 135 - 145 mmol/L Potassium, pl 4.4 3.3 - 4.9 mmol/L [facility] Chloride 99 97 - 110 mmol/L [facility] CO2 29 22 - 32 mmol/L [facility] Anion gap 6 2 - 15 mmol/L [facility] BUN 16 6 - 25 mg/dL [facility] Creatinine 0.72(L) 0.80 - 1.30 mg/dL [facility] Glucose 223(H) 70 - 199 mg/dL [facility] Comment: Interpretive Data Fasting glucose >/= 126 [...] 2022. Calcium 9.8 8.5 - 10.3 mg/dL [facility] Bilirubin, total 0.6 0.1 - 1.2 mg/dL [facility] Protein, pl 6.2(L) 6.5 - 8.5 g/dL [facility] Albumin 4.1 3.5 - 5.0 g/dL [facility] Alk phos 79 40 - 130 Units/L [facility] ALT 25 7 - 55 Units/L [facility] AST 15 10 - 50 Units/L [facility] Blood 12/26/2023 12:3 0 PM CDT 12/26/2023 12:38 PM CDT Burt Dos Santos MD PhD LAB BLOOD ORDERABLES Final Result [facility] [address] [place] [address] documented in this encounter Visit Diagnoses Diagnosis Hypogammaglobulinemia (HCC) Unspecified hypogammaglobulinemia documented in this encounter Orders Appointment Requests Count Last Ordered Date Fi rst Ordered Date ONCBCN LAB APPOINTMENT 1 12/26/2023 documented in this encounter Additional Health Concerns Infection Onset Date Last Indicated Resolved Time C. difficile Comment:Backloaded December 21, 2010 09/21/2010 09/21/2010 documented as of this encounter Care Teams Regulatory Agency Director Relationship Specialty Start Date End Date Lenin Ventura MD [address] [address] PCP - General 07/06/16 Lenin Ventura MD [address] [address] 07/06/16 Burt Dos Santos MD PhD [address] [address] Medical Oncologist/Hotel Breakfast Attendant Medical Oncology 06/16/19 documented as of this encounter
--- OUTSIDE RECORDS SUMMARY | 2024-02-22 08:27 | XMS_ITS | Referral Summary ---
Author Organization [facility] [address] [facility] Address [address] [place] [address] Care Team Providers Care Fixture Repairer Fabricator Name Role Phone Lenin Ventura MD Primary Care Provider [phone] Lenin Ventura MD Unavailable [phone] Burt Dos Santos MD PhD Unavailable + [phone] Encounters Date Type Department Care Team Description 02/20/2024 11:15 AM PAGE DESIGNER Lab [facility] - Lab Collection [address] [place] [address] [place] [address] CLL (chronic lymphocytic leukemia) (HCC) 02/20/2024 9:45 AM PAGE DESIGNER Lab [facility] - Lab Collection [address] [place] [address] CLL (chronic lymphocytic leukemia) (HCC) 02/20/2024 11:30 AM PAGE DESIGNER Infusion [facility] - Infusion [address] [place] [address] [place] [phone] Hypogammaglobulinemia (HCC) (Primary Dx) 02/20/2024 10:15 AM PAGE DESIGNER Office Visit [facility] Bone Marrow Transplant [address] [place] [phone] Burt Dos Santos MD PhD CLL (chronic lymphocytic leukemia) (HCC) 02/20/2024 9:15 AM PAGE DESIGNER Lab [facility] Oncology Lab [address] [place] [address] Floor 6 [place] [address] CLL (chronic lymphocytic leukemia) (HCC) 01/23/2024 12:00 PM PAGE DESIGNER Lab [facility] - Lab Collection [address] Floor 6 [place] [address] Hypogammaglobulinemia (HCC) 01/23/2024 1:00 PM PAGE DESIGNER Infusion [facility] - Infusion [address] Floor 6 [place] [address] Hypogammaglobulinemia (HCC) (Primary Dx) 01/06/2024 12:15 PM PAGE DESIGNER Procedure visit [facility] Otolaryngology [address] [facility] 11th [place] [address] [place] [address] Lilian Scott Au.D. Sensorineural hearing loss (SNHL) of both ears 01/06/2024 11:20 AM PAGE DESIGNER Office Visit [facility] ENT [address] [facility] 11th [place] [address] [place] [address] Cass Olivia MD Otitis media with effusion, bilateral [H65.93] (Primary Dx); Mixed conductive and sensorineural hearing loss of right ear with restricted hearing of left ear 12/30/2023 Telephone [facility] ENT [address] [facility] 11th [place] [address] [place] [address] Cass Olivia MD 12/30/2023 Orders Only [facility] ENT [address] [facility] 11th [place] [address] [place] [address] Cass Olivia MD 12/28/2023 7:45 PM CDT Office Visit [facility] at [address] [address] Cha Smith NP Non-recurrent acute suppurative otitis media of right ear with spontaneous rupture of tympanic membrane (Primary Dx) 12/26/2023 12:00 PM CDT Lab [facility] - Lab Collection [address] [facility] Floor 6 [place] [address] Hypogammaglobulinemia (HCC) 12/26/2023 1:00 PM CDT Infusion [facility] - Infusion [address] [facility] Floor 6 [place] [address] Hypogammaglobulinemia (HCC) (Primary Dx) 12/16/2023 8:40 AM CDT Office Visit [facility] ([facility] ENT [address] [facility] 11th [place] [address] [place] [address] Cass Olivia MD CLL (chronic lymphocytic leukemia) (HCC) (Primary Dx); Otitis media with effusion, bilateral 12/16/2023 8:20 AM CDT Procedure visit [facility] Otolaryngology [address] [facility] 11th [place] [address] [place] [address] Mixed conductive and sensorineural hearing loss of both ears (Primary Dx) 12/05/2023 10:15 AM CDT Lab [facility] - Lab Collection [address] [facility] Floor 6 [place] [address] CLL (chronic lymphocytic leukemia) (HCC); Hypogammaglobulinemia (HCC) 12/05/2023 10:30 AM CDT Office Visit [facility] Bone Marrow Transplant [address] [facility] [place] Floor 6 [place] [id number] Burt Dos Santos MD PhD CLL (chronic lymphocytic leukemia) (HCC) (Primary Dx); Hypogammaglobulinemia (HCC) from Last 3 Months Allergies Active Allergy Reactions Criticality Noted Date [...] 100 mg tabletIndication s:CLL (chronic lymphocytic leukemia) ([facility]) 03/14/19 21 Active traZODone (DESYREL) 50 mg tabletIndication s:CLL (chronic lymphocytic leukemia) ([facility]) Take 1 tablet (50 mg total) by [...] extended release capsuleIndicatio ns:CLL (chronic lymphocytic leukemia) ([facility]) TAKE 1 CAPSULE BY MOUTH EVERY DAY AT BEDTIME 08/11/19 23 Active budesonide (PULMICORT) 0.5 mg/2 mL nebulizer solution Mix 1 capsule/ampule in 250 mL of saline irrigations (NeilMed Sinus Rinse Bottle) and irrigate each nostril [...] Transplant/IEC Planning Patient Education Completed Consents Done [facility] Insurance Approvals/Issues Discharge Planning Anticipated Discharge Date 4- Issue to be Resolved Before Discharge Living Situation/Distance from [place], [place] Discharge To home Caregiver Self/ spouse [...] per BMT. Plan to discharge home with [facility] ENT notified to contact patient for [...] - Continue Xanax 0.5 mg TID PRN Immunizations Name Administration Dates Next Due Influenza, Quadrivalent, Arianne l Culture-based MDCK, Preservative Free, Antibiotic Free, Intramuscular 01/15/2019 Influenza, Quadrivalent, Hig h Dose, Preservative Free, Intrr 10/29/2019 Influenza, Trivalent, IM (MDV) 01/29/2012 Pfizer SARS-CoV-2 Monovalent Vaccination (12+ Yrs) PURPLE 05/30/2020,05/05/2020 Social History Tobacco Use Types Packs/Day Years Used Date Smoking Tobacco: Former Smokeless Tobacco: Never Alcohol Use Standard Drinks/Week Comments Not Currently 0 (1 standard drink = 0.6 oz pur e alcohol) Sex and Gender Information Value Date Recorded Sex Assigned at Not on file Legal Sex Male 9:45 AM PAGE DESIGNER Gender Identity Not on file Sexual Orientation Not on file Last Filed Vital Signs Vital Sign Reading Time Taken Comments Blood Pressure 110/68 02/20/2024 3:32 PM PAGE DESIGNER Pulse 69 02/20/2024 3:32 PM PAGE DESIGNER Temperature 36.7 ??C (98.1 ??F) 02/20/2024 10:[address] Respiratory Rate 18 02/20/2024 3:32 PM PAGE DESIGNER Oxygen Saturation 94% 02/20/2024 3:32 PM PAGE DESIGNER Inhaled Oxygen Concentration - - Weight 123.4 kg (272 lb) 02/20/2024 10:05 AM PAGE DESIGNER Height 193 cm (6' 4 ) 01/06/2024 11:56 AM PAGE DESIGNER Body Mass Index 33.11 01/06/2024 11:56 AM PAGE DESIGNER Plan of Treatment Not on file Procedures Procedure Name Priority Date/Time Associated Diagnosis Comments EGFR Routine 02/20/2024 11:15 AM PAGE DESIGNER CLL (chronic lymphocytic leukemia) (HCC) MANUAL DIFFERENTIAL Routine 02/20/2024 1 1:15 AM PAGE DESIGNER CLL (chronic lymphocytic leukemia) (HCC) CBC WITH AUTO DIFFERENTIAL Routine 02/20/2024 11:15 AM PAGE DESIGNER CLL (chronic lymphocytic leukemia) (HCC) COMPREHENSIVE METABOLIC PANEL Routine 02/20/2024 11:15 AM PAGE DESIGNER CLL (chronic lymphocytic leukemia) (HCC) EGFR Routine 02/20/2024 9:45 AM PAGE DESIGNER CLL (chronic lymphocytic leukemia) (HCC) MANUAL DIFFERENTIAL Routine 02/20/2024 9 :45 AM PAGE DESIGNER CLL (chronic lymphocytic leukemia) (HCC) CBC WITH AUTO DIFFERENTIAL Routine 02/20/2024 9:45 AM PAGE DESIGNER CLL (chronic lymphocytic leukemia) (HCC) COMPREHENSIVE METABOLIC PANEL Routine 02/20/2024 9:45 AM PAGE DESIGNER CLL (chronic lymphocytic leukemia) (HCC) LACTATE DEHYDROGENASE Routine 02/20/2024 9:45 AM PAGE DESIGNER CLL (chronic lymphocytic leukemia) (HCC) IGG Routine 02/20/2024 9:45 AM PAGE DESIGNER CLL (chronic lymphocytic leukemia) (HCC) EGFR Routine 01/23/2024 12:12 PM PAGE DESIGNER Hypogammaglobuline maddison (HCC) MANUAL DIFFERENTIAL Routine 01/23/2024 1 2:12 PM PAGE DESIGNER Hypogammaglobuline maddison (HCC) CBC WITH AUTO DIFFERENTIAL Routine 01/23/2024 12:12 PM PAGE DESIGNER Hypogammaglobuline maddison (HCC) COMPREHENSIVE METABOLIC PANEL Routine 01/23/2024 12:12 PM PAGE DESIGNER Hypogammaglobuline maddison (HCC) AUDBASE RESULTS 01/06/2024 12:37 PM PAGE DESIGNER EGFR Routine 12/26/2023 12:30 PM CDT Hypogammaglobuline [...] Maintenance Results * eGFR (02/20/2024 11:15 AM PAGE DESIGNER) Pathologist [facility] eGFR >90 >=60 mL/min/1. 73 m2 Comment: [...] reviewed 2021. Blood 02/20/2024 11:1 5 AM PAGE DESIGNER 02/20/2024 11:33 AM PAGE DESIGNER us Magali Stapleton ORACLE SQL DEVELOPER LAB BLOOD ORDERABLES Final Res ult [facility] Department [place] [address] * (ABNORMAL) CBC with auto differential (02/20/2024 11:15 AM PAGE DESIGNER) WBC 11.8(H) 3.8 - 9.9 K/cumm Comment:Testing performed by : [facility], [address] [place] [phone] Hgb 13.6 13.0 - 17.5 g/dL [facility] Comment:Testing performed by : [facility], [address] [place] [phone] Hct 40.6 38.9 - 50.3 % [facility] Comment:Testing performed by : [facility], [address] [place] [phone] Plt 146(L) 150 - 400 K/cumm [facility] Comment:Testing performed by : [facility], [address] [place] [phone] MPV 9.5 6.8 - 10.4 fL [facility] CASTR[facility] Comment:Testing performed by : [facility], [address] [place], [place] [phone] RBC 4.30 4.30 - 5.80 M/cumm [facility] Comment:Testing performed by : [facility], [address] [place], [place] [phone] MCV 94.3 81.3 - 96.4 fL [facility] Comment:Testing performed by : [facility], [address] [place], [place] [phone] MCH 31.6 27.1 - 33.3 pg [facility] Comment:Testing performed by : [facility], [address] [place] [address] MCHC 33.5 32.3 - 35.7 g/dL [facility] Comment:Testing performed by : [facility], [address] [place] [address] RDW CV 13.9 11.1 - 14.9 % [facility] Comment:Testing performed by : [facility], [address] [place], [place] [phone] NRBC abs 0.00 0.00 - 0.01 K/cumm [facility] Comment:Testing performed by : [facility], [address] [place] [address] Blood 02/20/2024 11:1 5 AM PAGE DESIGNER 02/20/2024 11:29 AM PAGE DESIGNER Narrative [facility] - 02/20/2024 11:33 AM PAGE DESIGNER 03/19, 04/16, 05/14 us Magali Phelan [place] ORACLE SQL DEVELOPER LAB BLOOD ORDERABLES Final Res ult [facility] Department of Laboratories [place], [place] [id number] * (ABNORMAL) Manual Differential (02/20/2024 11:15 AM PAGE DESIGNER) Cells Counted 200 Comment:Testing performed by : [facility], [address] [place] [address] Neutrophil abs 4.7 1.5 - 6.5 K/cumm [facility] Comment:Testing performed by : [facility], [address] [place] [phone] Lymphocyte abs 6.0(H) 0.8 - 3.3 K/cumm [facility] Comment:Testing performed by : [facility], [address] [place] [phone] Monocyte abs 0.4 0.2 - 0.8 K/cumm [facility] Comment:Testing performed by : [facility], [address] [place] [address] Eosinophil abs 0.1 0.0 - 0.5 K/cumm [facility] Comment:Testing performed by : [facility], [address] [place], [place] [phone] Basophil abs 0.1 0.0 - 0.1 K/cumm [facility] Comment:Testing performed by : [facility], [address] [place], [place] [phone] Neutrophil pct 40.0 % [facility] Comment: Interpretive Data Percent cell count reference ranges are not reported, since discordance with absolute values may lead to misinterpretation of CBC data. Current Interpretive Data was last revised on 2017. Testing performed by: [facility], [address] [place] [phone] Lymphocyte pct 51.0 % [facility] Comment: Interpretive Data Percent cell count reference ranges are not reported, since discordance with absolute values may lead to misinterpretation of CBC data. Current Interpretive Data was last revised on 2017. Testing performed by: [facility], [address] [place] [phone] Monocyte pct 3.0 % [facility] Comment: Interpretive Data Percent cell count reference ranges are not reported, since discordance with absolute values may lead to misinterpretation of CBC data. Current Interpretive Data was last revised on 2017. Testing performed by: [facility], [address] [place] [phone] Eosinophil pct 1.0 % [facility] Comment: Interpretive Data Percent cell count reference ranges are not reported, since discordance with absolute values may lead to misinterpretation of CBC data. Current Interpretive Data was last revised on 2017. Testing performed by: [facility], [address] [place], [place] [phone] Basophil pct 1.0 % [facility] Comment: Interpretive Data Percent cell count reference ranges are not reported, since discordance with absolute values may lead to misinterpretation of CBC data. Current Interpretive Data was last revised on 2017. Testing performed by: [facility], [address] [place], [place] [phone] Variant lymph pct 4.0 % [facility] Comment:Testing performed by : [facility], [address] [place] [address] RBC morphology Normal [facility] Comment:Testing performed by : [facility], [address] [place] [address] Platelet estimate Decreased( A) [facility] Comment:Testing performed by : [facility], [address] [place], [place] [phone] Blood 02/20/2024 11:1 5 AM PAGE DESIGNER 02/20/2024 11:29 AM PAGE DESIGNER us Magali Stapleton ORACLE SQL DEVELOPER LAB BLOOD ORDERABLES Final Res ult [facility] Department [place] [address] * (ABNORMAL) Comprehensive metabolic panel (02/20/2024 11:15 AM PAGE DESIGNER) Sodium 142 135 - 145 mmol/L Potassium, pl 4.7 3.3 - 4.9 mmol/L [facility] Chloride 107 97 - 110 mmol/L [facility] CO2 31 22 - 32 mmol/L [facility] Anion gap 4 2 - 15 mmol/L [facility] BUN 18 6 - 25 mg/dL [facility] Creatinine 0.86 0.80 - 1.30 mg/dL [facility] Glucose 111 70 - 199 mg/dL [facility] Comment: Interpretive Data Fasting glucose [...] 2022. Calcium 9.1 8.5 - 10.3 mg/dL [facility] Bilirubin, total 0.4 0.1 - 1.2 mg/dL [facility] Protein, pl 5.8(L) 6.5 - 8.5 g/dL [facility] Albumin 3.8 3.5 - 5.0 g/dL [facility] Alk phos 109 40 - 130 Units/L [facility] ALT 205(H) 7 - 55 Units/L [facility] AST 158(H) 10 - 50 Units/L [facility] Blood 02/20/2024 11:1 5 AM PAGE DESIGNER 02/20/2024 11:33 AM PAGE DESIGNER us Magali Stapleton ORACLE SQL DEVELOPER LAB BLOOD ORDERABLES Final Res ult [facility] Department [place] [address] * eGFR (02/20/2024 9:45 AM PAGE DESIGNER) eGFR >90 >=60 mL/min/1. 73 m2 Comment: [...] last reviewed 2021. Blood 02/20/2024 9:45 AM PAGE DESIGNER 02/20/2024 10:01 AM PAGE DESIGNER Magali Stapleton ORACLE SQL DEVELOPER LAB BLOOD ORDERABLES Final Res ult [facility] Department [place] [address] * (ABNORMAL) CBC with auto differential (02/20/2024 9:45 AM PAGE DESIGNER) WBC 10.9(H) 3.8 - 9.9 K/cumm Comment:Testing performed by : [facility], [address] [place] [address] Hgb 13.7 13.0 - 17.5 g/dL [facility] Comment:Testing performed by : [facility], [address] [place] [address] Hct 40.6 38.9 - 50.3 % [facility] Comment:Testing performed by : [facility], [address] [place] [address] Plt 140(L) 150 - 400 K/cumm [facility] Comment:Testing performed by : [facility], [address] [place] [address] MPV 8.8 6.8 - 10.4 fL [facility] Comment:Testing performed by : [facility], [address] [place] [address] RBC 4.31 4.30 - 5.80 M/cumm [facility] Comment:Testing performed by : [facility], [address] [place] [address] MCV 94.2 81.3 - 96.4 fL [facility] Comment:Testing performed by : [facility], [address] [place] [address] MCH 31.8 27.1 - 33.3 pg [facility] Comment:Testing performed by : [facility], [address] [place] [address] MCHC 33.8 32.3 - 35.7 g/dL [facility] Comment:Testing performed by : [facility], [address] [place] [address] RDW CV 14.1 11.1 - 14.9 % [facility] Comment:Testing performed by : [facility], [address] [place] [address] NRBC abs 0.00 0.00 - 0.01 K/cumm [facility] Comment:Testing performed by : [facility], [address] [place] [address] Blood 02/20/2024 9:45 AM PAGE DESIGNER 02/20/2024 9:56 AM PAGE DESIGNER Magali Stapleton ORACLE SQL DEVELOPER LAB BLOOD ORDERABLES Edited Re kelsiet - Final [facility] Department [place] [address] * (ABNORMAL) Manual Differential (02/20/2024 9:45 AM PAGE DESIGNER) Cells Counted 200 Comment:Testing performed by : [facility], [address] [place] [address] Neutrophil abs 4.5 1.5 - 6.5 K/cumm [facility] Comment:Testing performed by : [facility], [address] [place] [phone] Lymphocyte abs 5.2(H) 0.8 - 3.3 K/cumm [facility] Comment:Testing performed by : [facility], [address] [place], [place] [phone] Monocyte abs 0.3 0.2 - 0.8 K/cumm [facility] Comment:Testing performed by : [facility], [address] [place] [phone] Eosinophil abs 0.2 0.0 - 0.5 K/cumm [facility] Comment:Testing performed by : [facility], [address] [place], [place] [phone] Basophil abs 0.1 0.0 - 0.1 K/cumm [facility] Comment:Testing performed by : [facility], [address] [place], [place] [phone] Neutrophil pct 41.0 % [facility] Comment: Interpretive Data Percent cell count reference ranges are not reported, since discordance with absolute values may lead to misinterpretation of CBC data. Current Interpretive Data was last revised on 2017. Testing performed by: [facility], [address] [place], [place] [phone] Lymphocyte pct 48.0 % [facility] Comment: Interpretive Data Percent cell count reference ranges are not reported, since discordance with absolute values may lead to misinterpretation of CBC data. Current Interpretive Data was last revised on 2017. Testing performed by: [facility], [address] [place] [phone] Monocyte pct 3.0 % [facility] Comment: Interpretive Data Percent cell count reference ranges are not reported, since discordance with absolute values may lead to misinterpretation of CBC data. Current Interpretive Data was last revised on 2017. Testing performed by: [facility], [address] [place], [place] [phone] Eosinophil pct 2.0 % [facility] Comment: Interpretive Data Percent cell count reference ranges are not reported, since discordance with absolute values may lead to misinterpretation of CBC data. Current Interpretive Data was last revised on 2017. Testing performed by: [facility], [address] [place] [phone] Basophil pct 1.0 % [facility] Comment: Interpretive Data Percent cell count reference ranges are not reported, since discordance with absolute values may lead to misinterpretation of CBC data. Current Interpretive Data was last revised on 2017. Testing performed by: [facility], [address] [place] [phone] Variant lymph pct 7.0 % [facility] Comment:Testing performed by : [facility], [address] [place], [place] [phone] RBC morphology Normal [facility] Comment:Testing performed by : [facility], [address] [place], [place] [phone] Platelet estimate Decreased( A) [facility] Comment:Testing performed by : [facility], [address] [place] [phone] Blood 02/20/2024 9:45 AM PAGE DESIGNER 02/20/2024 9:56 AM PAGE DESIGNER Magali SJulisa Stapleton ORACLE SQL DEVELOPER LAB BLOOD ORDERABLES Final Res ult Performing Organization Address [facility] Co de Phone Number [facility] Department [place] [place] [address] * (ABNORMAL) Lactate dehydrogenase (LD) (02/20/2024 9:45 AM PAGE DESIGNER) Lactate dehydrogenase (LDH) 435(H) 100 - 250 Units/L Blood 02/20/2024 9:45 AM PAGE DESIGNER 02/20/2024 10:01 AM PAGE DESIGNER Magali S. [place] ORACLE SQL DEVELOPER LAB BLOOD ORDERABLES Final Res ult Performing Organization Address [facility] Co de Phone Number [facility] Department [place] [address] * (ABNORMAL) IgG (02/20/2024 9:45 AM PAGE DESIGNER) Pathologist [facility] Immunoglobulin G 479(L) 700 - 1,600 mg/dL Blood 02/20/2024 9:45 AM PAGE DESIGNER 02/20/2024 10:44 AM PAGE DESIGNER Magali Phelan [place] ORACLE SQL DEVELOPER LAB BLOOD ORDERABLES Final Res ult [facility] [place] [address] * (ABNORMAL) Comprehensive metabolic panel (02/20/2024 9:45 AM PAGE DESIGNER) Pathologist [facility] Sodium 141 135 - 145 mmol/L Potassium, pl 4.6 3.3 - 4.9 mmol/L [facility] Chloride 106 97 - 110 mmol/L [facility] CO2 29 22 - 32 mmol/L [facility] Anion gap 6 2 - 15 mmol/L [facility] BUN 17 6 - 25 mg/dL [facility] Creatinine 0.88 0.80 - 1.30 mg/dL [facility] Glucose 138 70 - 199 mg/dL [facility] Comment: Interpretive Data Fasting glucose [...] 2022. Calcium 8.9 8.5 - 10.3 mg/dL [facility] Bilirubin, total 0.4 0.1 - 1.2 mg/dL [facility] Protein, pl 5.8(L) 6.5 - 8.5 g/dL [facility] Albumin 3.7 3.5 - 5.0 g/dL [facility] Alk phos 108 40 - 130 Units/L [facility] ALT 203(H) 7 - 55 Units/L [facility] AST 160(H) 10 - 50 Units/L [facility] Comment:Hemolyzed; result ma y be falsely elevated Blood 02/20/2024 9:45 AM PAGE DESIGNER 02/20/2024 10:01 AM PAGE DESIGNER us Magali Stapleton ORACLE SQL DEVELOPER LAB BLOOD ORDERABLES Final Res ult [facility] [place] [address] * eGFR (01/23/2024 12:12 PM PAGE DESIGNER) eGFR >90 >=60 mL/min/1. 73 m2 Comment: [...] reviewed 2021. Blood 01/23/2024 12:1 2 PM PAGE DESIGNER 01/23/2024 12:37 PM PAGE DESIGNER Burt Dos Santos MD PhD LAB BLOOD ORDERABLES Final Result [facility] Department [place] [address] * (ABNORMAL) CBC with auto differential (01/23/2024 12:12 PM PAGE DESIGNER) WBC 10.6(H) 3.8 - 9.9 K/cumm Comment:Testing performed by : [facility], [address] [place] [address] Hgb 14.1 13.0 - 17.5 g/dL CERGEOFF CASTRO Comment:Testing performed by : [facility], [address] [place] [address] Hct 41.8 38.9 - 50.3 % CEREGOFF BJ Comment:Testing performed by : [facility], [address] [place] [address] Plt 203 150 - 400 K/cumm CERGEOFF CASTRO Comment:Testing performed by : [facility], [address] [place] [address] MPV 10.4 6.8 - 10.4 fL CERGEOFF BJ Comment:Testing performed by : [facility], [address] [place] [address] RBC 4.37 4.30 - 5.80 M/cumm CERGEOFF BJ Comment:Testing performed by : [facility], [address] [place] [address] MCV 95.6 81.3 - 96.4 fL CERGEOFF BJ Comment:Testing performed by : [facility], [address] [place] [address] MCH 32.4 27.1 - 33.3 pg CERNER BJ Comment:Testing performed by : [facility], [address] [place] [address] MCHC 33.9 32.3 - 35.7 g/dL VANESSA CASTRO Comment:Testing performed by : [facility], [address] [place] [address] RDW CV 14.1 11.1 - 14.9 % VANESSA CASTRO Comment:Testing performed by : [facility], [address] [place] [address] NRBC abs 0.00 0.00 - 0.01 K/cumm VANESSA CASTRO Comment:Testing performed by : [facility], [address] [place] [address] Blood 01/23/2024 12:1 2 PM PAGE DESIGNER 01/23/2024 12:34 PM PAGE DESIGNER Burt Dos Santos MD PhD LAB BLOOD ORDERABLES Edited Result - Final [facility] Department [place] [address] * (ABNORMAL) Manual Differential (01/23/2024 12:12 PM PAGE DESIGNER) Cells Counted 100 Comment:Testing performed by : [facility], [address] [place] [address] Neutrophil abs 3.5 1.5 - 6.5 K/cumm VANESSA CASTRO Comment:Testing performed by : [facility], [address] [place] [address] Lymphocyte abs 6.0(H) 0.8 - 3.3 K/cumm CERGEOFF CASTRO Comment:Testing performed by : [facility], [address] [place] [address] Monocyte abs 0.1(L) 0.2 - 0.8 K/cumm VANESSA CASTRO Comment:Testing performed by : [facility], [address] [place] [address] Eosinophil abs 0.2 0.0 - 0.5 K/cumm VANESSA CASTRO Comment:Testing performed by : [facility], [address] [place] [phone] Basophil abs 0.1 0.0 - 0.1 K/cumm [facility] Comment:Testing performed by : [facility], [address] [place] [phone] Neutrophil pct 33.0 % [facility] Comment: Interpretive Data Percent cell count reference ranges are not reported, since discordance with absolute values may lead to misinterpretation of CBC data. Current Interpretive Data was last revised on 2017. Testing performed by: [facility], [address] [place] [phone] Lymphocyte pct 57.0 % [facility] Comment: Interpretive Data Percent cell count reference ranges are not reported, since discordance with absolute values may lead to misinterpretation of CBC data. Current Interpretive Data was last revised on 2017. Testing performed by: [facility], [address] [place] [phone] Monocyte pct 1.0 % [facility] Comment: Interpretive Data Percent cell count reference ranges are not reported, since discordance with absolute values may lead to misinterpretation of CBC data. Current Interpretive Data was last revised on 2017. Testing performed by: [facility], [address] [place] [phone] Eosinophil pct 2.0 % [facility] Comment: Interpretive Data Percent cell count reference ranges are not reported, since discordance with absolute values may lead to misinterpretation of CBC data. Current Interpretive Data was last revised on 2017. Testing performed by: [facility], [address] [place] [phone] Basophil pct 1.0 % [facility] Comment: Interpretive Data Percent cell count reference ranges are not reported, since discordance with absolute values may lead to misinterpretation of CBC data. Current Interpretive Data was last revised on 2017. Testing performed by: [facility], [address] [place] [phone] Metamyelocyte pct 1.0 % [facility] Comment:Testing performed by : [facility], [address] [place] [phone] Variant lymph pct 5.0 % [facility] Comment:Testing performed by : [facility], [address] [place] [phone] RBC morphology Normal [facility] Comment:Testing performed by : [facility], [facility] [place] [address] Platelet estimate Adequate [facility] Comment:Testing performed by : [facility], [address] [place] [phone] Blood 01/23/2024 12:1 2 PM PAGE DESIGNER 01/23/2024 12:34 PM PAGE DESIGNER Burt Dos Santos MD PhD LAB BLOOD ORDERABLES Final Result [facility] Department [place] [address] * (ABNORMAL) Comprehensive metabolic panel (01/23/2024 12:12 PM PAGE DESIGNER) Pathologist [facility] Sodium 140 135 - 145 mmol/L Potassium, pl 4.5 3.3 - 4.9 mmol/L [facility] Chloride 105 97 - 110 mmol/L [facility] CO2 29 22 - 32 mmol/L [facility] Anion gap 6 2 - 15 mmol/L [facility] BUN 18 6 - 25 mg/dL [facility] Creatinine 0.77(L) 0.80 - 1.30 mg/dL [facility] Glucose 125 70 - 199 mg/dL [facility] Comment: Interpretive Data Fasting glucose [...] Calcium 9.0 8.5 - 10.3 mg/dL [facility] Bilirubin, total 0.4 0.1 - 1.2 mg/dL [facility] Protein, pl 5.9(L) 6.5 - 8.5 g/dL [facility] Albumin 3.9 3.5 - 5.0 g/dL [facility]ER [facility] Alk phos 90 40 - 130 Units/L [facility] ALT 36 7 - 55 Units/L [facility] AST 24 10 - 50 Units/L [facility]ER [facility] Blood 01/23/2024 12:1 2 PM PAGE DESIGNER 01/23/2024 12:37 PM PAGE DESIGNER Burt Dos Santos MD PhD LAB BLOOD ORDERABLES Final Result [facility] Department [place] [address] * AudBase Results (01/06/2024 12:37 PM PAGE DESIGNER) us Provider Scanning AUDIOLOGY SERVICES ORDERABLES Final [...] 0 PM CDT 12/26/2023 12:38 PM CDT us Burt Dos Santos MD PhD LAB BLOOD ORDERABLES Final Result [facility] Department [place] [address] * (ABNORMAL) Differential, auto (12/26/2023 12:30 PM CDT) Neutrophil abs 7.9(H) 1.5 - 6.5 K/cumm Comment:Testing performed by : [facility], [address] [place] [phone] Lymphocyte abs 3.1 0.8 - 3.3 K/cumm VANESSA CASTRO Comment:Testing performed by : [facility], [address] [place] [phone] Monocyte abs 0.4 0.2 - 0.8 K/cumm VANESSA CASTRO Comment:Testing performed by : [facility], [address] [place] [phone] Eosinophil abs 0.0 0.0 - 0.5 K/cumm CERGEOFF CASTRO Comment:Testing performed by : [facility], [address] [place] [phone] Basophil abs 0.0 0.0 - 0.1 K/cumm CERGEOFF [facility] Comment:Testing performed by : [facility], [address] [place] [phone] Neutrophil pct 69.7 % CERGEOFF CASTRO Comment: Interpretive Data Percent cell count reference ranges are not reported, since discordance with absolute values may lead to misinterpretation of CBC data. Current Interpretive Data was last revised on 2017. Testing performed by: [facility], [address] [place] [phone] Lymphocyte pct 26.8 % [facility]ER[facility]OFF [facility] Comment: Interpretive Data Percent cell count reference ranges are not reported, since discordance with absolute values may lead to misinterpretation of CBC data. Current Interpretive Data was last revised on 2017. Testing performed by: [facility], [address] [place] [phone] Monocyte pct 3.1 % [facility] Comment: Interpretive Data Percent cell count reference ranges are not reported, since discordance with absolute values may lead to misinterpretation of CBC data. Current Interpretive Data was last revised on 2017. Testing performed by: [facility], [address] [place] [address] Eosinophil pct 0.1 % [facility]ER[facility]OFF [facility] Comment: Interpretive Data Percent cell count reference ranges are not reported, since discordance with absolute values may lead to misinterpretation of CBC data. Current Interpretive Data was last revised on 2017. Testing performed by: [facility], [address] [place] [phone] Basophil pct 0.3 % [facility] Comment: Interpretive Data Percent cell count reference ranges are not reported, since discordance with absolute values may lead to misinterpretation of CBC data. Current Interpretive Data was last revised on 2017. Testing performed by: [facility], [address] [place] [phone] Blood 12/26/2023 12:3 0 PM CDT 12/26/2023 12:36 PM CDT Burt Dos Santos MD PhD LAB BLOOD ORDERABLES Final Result [facility] Department [place] [address] * (ABNORMAL) CBC with auto differential (12/26/2023 12:30 PM CDT) [facility] WBC 11.4(H) 3.8 - 9.9 K/cumm Comment:Testing performed by : [facility], [address] [place] [address] Hgb 14.4 13.0 - 17.5 g/dL CERNER [facility]J Comment:Testing performed by : [facility], [address] [place] [address] Hct 43.7 38.9 - 50.3 % [facility] Comment:Testing performed by : [facility], [address] [place] [address] Plt 186 150 - 400 K/cumm CERNER BJ Comment:Testing performed by : [facility], [address] [place] [address] MPV 10.7(H) 6.8 - 10.4 fL [facility] Comment:Testing performed by : [facility], [address] [place] [address] RBC 4.49 4.30 - 5.80 M/cumm CERNER [facility]J Comment:Testing performed by : [facility], [address] [place] [address] MCV 97.3(H) 81.3 - 96.4 fL [facility] Comment:Testing performed by : [facility], [address] [place] [address] MCH 32.1 27.1 - 33.3 pg [facility] Comment:Testing performed by : [facility], [address] [place] [address] MCHC 33.0 32.3 - 35.7 g/dL [facility] Comment:Testing performed by : [facility], [address] [place] [address] RDW CV 14.0 11.1 - 14.9 % [facility] Comment:Testing performed by : [facility], [address] [place] [address] NRBC abs 0.00 0.00 - 0.01 K/cumm [facility] Comment:Testing performed by : [facility], [address] [place] [phone] Blood 12/26/2023 12:3 0 PM CDT 12/26/2023 12:36 PM CDT Burt Dos Santos MD PhD LAB BLOOD ORDERABLES Final Result [facility] Department [place] [address] * (ABNORMAL) Comprehensive metabolic panel (12/26/2023 12:30 PM CDT) Sodium 134(L) 135 - 145 mmol/L Potassium, pl 4.4 3.3 - 4.9 mmol/L [facility] Chloride 99 97 - 110 mmol/L [facility] CO2 29 22 - 32 mmol/L [facility] Anion gap 6 2 - 15 mmol/L [facility] BUN 16 6 - 25 mg/dL [facility] Creatinine 0.72(L) 0.80 - 1.30 mg/dL [facility] Glucose 223(H) 70 - 199 mg/dL [facility] Comment: Interpretive Data Fasting glucose [...] 2022. Calcium 9.8 8.5 - 10.3 mg/dL [facility] Bilirubin, total 0.6 0.1 - 1.2 mg/dL [facility] Protein, pl 6.2(L) 6.5 - 8.5 g/dL [facility] Albumin 4.1 3.5 - 5.0 g/dL [facility] Alk phos 79 40 - 130 Units/L [facility] ALT 25 7 - 55 Units/L [facility] AST 15 10 - 50 Units/L [facility] Blood 12/26/2023 12:3 0 PM CDT 12/26/2023 12:38 PM CDT Burt Dos Santos MD PhD LAB BLOOD ORDERABLES Final Result [facility] Department [place] [address] * AudBase Results (12/16/2023 8:06 AM CDT) us Provider Scanning AUDIOLOGY SERVICES ORDERABLES Final Result * (ABNORMAL) Differential, auto (12/05/2023 10:33 AM CDT) Neutrophil abs 5.4 1.5 - 6.5 K/cumm Comment:Testing performed by : [facility], [address] [place] [phone] Lymphocyte abs 5.4(H) 0.8 - 3.3 K/cumm CERNER BJ Comment:Testing performed by : [facility], [address] [place], [place] [phone] Monocyte abs 0.7 0.2 - 0.8 K/cumm CERNER BJ Comment:Testing performed by : [facility], [address] [place], [place] [phone] Eosinophil abs 0.1 0.0 - 0.5 K/cumm CERNER [facility]J Comment:Testing performed by : [facility], [address] [place] [phone] Basophil abs 0.1 0.0 - 0.1 K/cumm CERNER BJ Comment:Testing performed by : [facility], [address] [place], [place] [phone] Neutrophil pct 46.2 % CERGEOFF MATTHEW Comment: Interpretive Data Percent cell count reference ranges are not reported, since discordance with absolute values may lead to misinterpretation of CBC data. Current Interpretive Data was last revised on 2017. Testing performed by: [facility], [address] [place] [phone] Lymphocyte pct 46.5 % [facility]O Comment: Interpretive Data Percent cell count reference ranges are not reported, since discordance with absolute values may lead to misinterpretation of CBC data. Current Interpretive Data was last revised on 2017. Testing performed by: [facility], [address] [place], [place] [id number] Monocyte pct 5.8 % [facility]ANESSA CASTRO Comment: Interpretive Data Percent cell count reference ranges are not reported, since discordance with absolute values may lead to misinterpretation of CBC data. Current Interpretive Data was last revised on 2017. Testing performed by: [facility], [address] [place] [address] Eosinophil pct 1.0 % VANESSA CASTRO Comment: Interpretive Data Percent cell count reference ranges are not reported, since discordance with absolute values may lead to misinterpretation of CBC data. Current Interpretive Data was last revised on 2017. Testing performed by: [facility], [address] [place] [phone] Basophil pct 0.5 % [facility]SA CASTRO Comment: Interpretive Data Percent cell count reference ranges are not reported, since discordance with absolute values may lead to misinterpretation of CBC data. Current Interpretive Data was last revised on 2017. Testing performed by: [facility], [address] [place] [phone] Blood 12/05/2023 10:3 3 AM CDT 12/05/2023 10:34 AM CDT us Magali Velazquezr ORACLE SQL DEVELOPER LAB BLOOD ORDERABLES Final Res ult [facility] Department [place] [address] * (ABNORMAL) CBC with auto differential (12/05/2023 10:33 AM CDT) WBC 11.7(H) 3.8 - 9.9 K/cumm Comment:Testing performed by : [facility], [address] [place] [address] Hgb 14.6 13.0 - 17.5 g/dL [facility] Comment:Testing performed by : [facility], [address] [place] [address] Hct 44.0 38.9 - 50.3 % [facility] Comment:Testing performed by : [facility], [address] [place] [address] Plt 257 150 - 400 K/cumm [facility]ER [facility] Comment:Testing performed by : [facility], [address] [place] [address] MPV 10.8(H) 6.8 - 10.4 fL [facility] Comment:Testing performed by : [facility], [address] [place] [address] RBC 4.63 4.30 - 5.80 M/cumm [facility] Comment:Testing performed by : [facility], [address] [place] [address] MCV 94.9 81.3 - 96.4 fL [facility] Comment:Testing performed by : [facility], [address] [place] [address] MCH 31.5 27.1 - 33.3 pg [facility] Comment:Testing performed by : [facility], [address] [place] [address] MCHC 33.2 32.3 - 35.7 g/dL [facility] Comment:Testing performed by : [facility], [address] [place] [address] RDW CV 13.3 11.1 - 14.9 % [facility] Comment:Testing performed by : [facility], [address] [place] [address] NRBC abs 0.00 0.00 - 0.01 K/cumm VANESSA CASTRO Comment:Testing performed by : [facility], [address] [place] [phone] Blood 12/05/2023 10:3 3 AM CDT 12/05/2023 10:34 AM CDT us Magali Phelan [place] ORACLE SQL DEVELOPER LAB BLOOD ORDERABLES Final Res ult [facility] Department [place] [address] * eGFR (12/05/2023 10:24 AM CDT) eGFR [...] BLOOD ORDERABLES Final Result Performing Organization Address [facility] de Phone Number [facility] [place] [address] * Lactate dehydrogenase (LD) (12/05/2023 10:24 AM CDT) Pathologist [facility] Lactate dehydrogenase (LDH) 153 100 - 250 Units/L Blood 12/05/2023 10:2 4 AM CDT 12/05/2023 10:52 AM CDT Magali Stapleton ORACLE SQL DEVELOPER LAB BLOOD ORDERABLES Final Res ult Performing Organization Address [facility] de Phone Number [facility] [place] [address] * (ABNORMAL) IgG (12/05/2023 10:24 AM CDT) [facility] Immunoglobulin G 411(L) 700 - 1,600 mg/dL Blood 12/05/2023 10:2 4 AM CDT 12/05/2023 11:16 AM CDT Magali SJulisa Stapleton ORACLE SQL DEVELOPER LAB BLOOD ORDERABLES Final Res ult Performing Organization Address [facility] de Phone Number [facility] [place] [address] * Comprehensive metabolic panel (12/05/2023 10:24 AM CDT) [facility] Sodium 139 135 - 145 mmol/L Potassium, pl 4.8 3.3 - 4.9 mmol/L [facility] Chloride 104 97 - 110 mmol/L [facility] CO2 28 22 - 32 mmol/L [facility] Anion gap 7 2 - 15 mmol/L [facility] BUN 20 6 - 25 mg/dL [facility] Creatinine 0.86 0.80 - 1.30 mg/dL [facility] Glucose 110 70 - 199 mg/dL [facility] Comment: Interpretive Data Fasting glucose [...] 2022. Calcium 9.5 8.5 - 10.3 mg/dL [facility] Bilirubin, total 0.5 0.1 - 1.2 mg/dL [facility] Protein, pl 6.5 6.5 - 8.5 g/dL [facility] Albumin 4.1 3.5 - 5.0 g/dL [facility] Alk phos 86 40 - 130 Units/L [facility] ALT 19 7 - 55 Units/L [facility] AST 16 10 - 50 Units/L [facility] Blood 12/05/2023 10:2 4 AM CDT 12/05/2023 10:52 AM CDT Burt Dos Santos MD PhD LAB BLOOD ORDERABLES Final Result [facility] Department [place] [address] * CT Chest Abdomen Pelvis W Contrast [...] 21, 2010 09/21/2010 09/21/2010 Insurance MEDICARE [facility] MEDICARE HMO [facility] MEDICARE [employer] OPEN ACCESS [employer] CHOICE MEDICARE PPO [employer] OPEN ACCESS [employer] CHOICE MEDICARE PPO [facility] MEDICARE HMO Advance Directives For more information, please contact: [phone] * Full Code (Latest Code Status on File) Date Activated Date Inactivated Comments 06/12/2019 9:51 AM 06/15/2019 6:24 PM Care Teams Fixture Repairer Fabricator Relationship Specialty Start Date End Date Lenin Ventura MD [address] [id number] PCP - General 07/06/16 Lenin Ventura MD [address] [address] 07/06/16 Brut Dos Santos MD PhD [address] [address] Medical Oncologist/Sql Ssrs Developer Medical Oncology 06/16/19
--- OUTSIDE RECORDS SUMMARY | 2024-02-22 08:27 | XMS_ITS | Encounter Summary ---
Author Organization [facility] Address [address] [place] [address] Care Team Providers Care Regrader Name Role Phone Lenin Ventura MD Primary Care Provider + [phone] Lenin Ventura MD Unavailable [phone] Burt Dos Santos MD PhD Unavailable [phone] Reason for Visit * Episode Based Medications (Routine) - Authorized Specialty Diagnoses / Procedures Referred By Trent delgado Referred To Contact Diagnoses Hypogammaglobulinemia (HCC) Procedures [place] GAMUNEX-C/GAMMAKED GAMUNEX Burt Dos Santos MD PhD [address] DIV IM [employer], [address] [place] [address] Phone: tel: fax: [facility] [address] [facility] Advanced Medicine 7th [place] [address] Phone: tel: Referral ID Status Reason Start Date Expiration Date V isits Requested Visits Authorized [id number] Authorized 10/19/2019 08/02/2024 1 38 Encounter Details Date Type Department Care Team (Latest Contact Info) Description 12/26/2023 1:00 PM CDT Infusion [facility] - Infusion [address] [facility] [address] [place] [address] Hypogammaglobulinemia (HCC) (Primary Dx) Social History Tobacco Use Types Packs/Day Years Used Date Smoking Tobacco: Former Smokeless Tobacco: Never Alcohol Use Standard Drinks/Week Comments Not Currently 0 (1 standard drink = 0.6 oz pur e alcohol) Sex and Gender Information Value Date Recorded Sex Assigned at Not on file 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 Gender Identity Not on file Sexual Orientation Not on file documented as of this encounter Last Filed Vital Signs Vital Sign Reading Time Taken Comments Blood Pressure 114/64 12/26/2023 4:08 PM CDT Pulse 79 12/26/2023 4:08 PM CDT Temperature 36.6 ??C (97.9 ??F) 12/26/2023 4:08 PM CD T Respiratory Rate 18 12/26/2023 4:08 PM CDT Oxygen Saturation 97% 12/26/2023 4:08 PM CDT Inhaled Oxygen Concentration - - Weight 121.8 kg (268 lb 8.3 oz) 12/26/2023 1:02 PM CDT Height - - Body Mass Index 32.69 12/16/2023 8:42 AM CDT documented in this encounter Nursing Notes * Madie Jenkins - 12/26/2023 1:00 PM CDT Oncology Nursing Note [facility] - INFUSION Jeff Abdullahi is a 73 y.o. male who presents for treatment of IVIG. Pre-treatment Nursing Assessment Nursing Assessment LOC: Alert, Awake Constitutional: Fatigue Fatigue: Constant Any falls since your last visit?: No Orientation: Oriented x4 Behavior: Calm Speech: Clear Language: No aphasia Vision: At baseline Other neuro symptoms: Other: (comment) (States he lost his hearing, but it is coming back because he is on steroids now ) Peripheral Neuropathy: Yes (Bilat toes, no change) Oral Mucosa Grade: Normal (0) Pt states has potential to be ?: N/A Shortness of Breath?: No Respiratory Effort Characteristics: Dyspnea exertion Cough: Productive, Occasional Sputum Amount: Small Sputum Color: Yellow (Per pt report, not seen by RN) Appetite: Good What diet do you follow at home?: Regular Have You Recently Lost Weight Without Trying?: No Have you been eating poorly because of a decreased appetite?: No Malnutrition Screening Tool (MST) Score: 0 Nausea/Vomiting: No Diarrhea: No Constipation: No Last BM Date: 12/26/23 Skin Condition/Temp: Warm, Dry, No swelling Swelling: No Additional Notes: Pt states he has had sinus issues, and he is now on steroids, so it is getting better. Encounter Vitals BP: 114/64 (12/26/2023 4:08 PM) Pulse: 79 (12/26/2023 4:08 PM) Resp: 18 (12/26/2023 4:08 PM) Temp: 36.6 ??C (97.9 ??F) (12/26/2023 4:08 PM) Temp src: Temporal (12/26/2023 1:02 PM) SpO2: 97 % (12/26/2023 4:08 PM) Weight: 121.8 kg (268 lb 8.3 oz) (12/26/2023 1:02 PM) Pain Score: 0 - No pain Treatment Patient: met treatment parameters Pre blood return: Brisk Jeff Gomez Kaylen tolerated treatment well. Patient was frequently observed and monitored throughout the administration of their treatment. Additional Notes: Pt did states he had a little upset stomach at the very end of the tx, but denied the need for anything else for that. Pt states he will get his appointments off of MyChart. Post blood return: Brisk IV access post infusion: Other: D5W Patient Education Treatment Education: Information/teaching given to patient including fall prevention and process and procedure related to today's visit Response: Verbalizes understanding Discharge Plan Discharge instructions given to patient. Future appointments given and reviewed with treatment plan. Discharge Mode: Ambulatory Accompanied by: Self Discharged To: Home documented in this encounter Plan of Treatment Not on file documented as of this encounter Visit Diagnoses Diagnosis Hypogammaglobulinemia (HCC)- Primary Unspecified hypogammaglobulinemia documented in this encounter Administered Medications Inactive Administered Medications - up to 3 most recent administrations Medication Order MAR Action Action Date Dose Rate Site acetaminophen (TYLENOL) tablet 650 mg 650 mg, oral, Once, On [place] 12/26/23 at 1400, For 1 dose, Please give 30 minutes prior to IVIG.Indications:Hypogamm aglobulinemia (HCC) Given 12/26/2023 1:41 PM CDT 650 mg diphenhydrAMINE (BENADRYL) tab/cap 25 mg 25 mg, oral, Once, On [place] 12/26/23 at 1400, For 1 dose, Give 30 minutes prior to IVIG.Indications:Hypogamm aglobulinemia (HCC) Given 12/26/2023 1:41 PM CDT 25 mg famotidine (PEPCID) injection 20 mg 20 mg, intravenous, Administer over 2 Minutes, Once, On [place] 12/26/23 at 1400, For 1 doseIndications:Hypogamma globulinemia (HCC) Given 12/26/2023 1:48 PM CDT 20 mg immune globulin (GAMUNEX-C,GAMMAKED) 10 % infusion 35 g 35 g (rounded from 34.48 g = 400 mg/kg ? 86.2 kg Fowler weight), intravenous, Once, On [place] 12/26/23 at 1430, For 1 dose, GamuNEX C SUBSEQUENT Infusion, [...] = 362 mL/hr) 8 . 4.8 mL/kg/hr for remainder (Rate = 414 mL/hr) GONZALES [...] for dose adjustments.Indications:H ypogammaglobulinemia (HCC) Rate/Dose Change 12/26/2023 4:23 PM CDT 414 mL/hr Rate/Dose Change 12/26/2023 4:08 PM CDT 362 mL/ hr Rate/Dose Change 12/26/2023 3:52 PM CDT 310 mL/ hr ondansetron (ZOFRAN) injection 8 mg 8 mg, intravenous, Administer over 2 Minutes, Once, On [place] 12/26/23 at 1400, For 1 doseIndications:Hypogammaglobulinemia (HCC) Given 12/26/2023 1:42 PM CDT 8 mg documented in this encounter Orders Nursing Count Last Ordered Date First Orde red Date ONCBCN NURSING COMMUNICATION [id number] 2 1 VITAL SIGNS INTRA-INFUSION 1 12/26/2023 Appointment Requests Count Last Ordered Date Fi rst Ordered Date INFUSION APPT REQUEST 300 MIN 1 12/26/2023 documented in this encounter Additional Health Concerns Infection Onset Date Last Indicated Resolved Time C. difficile Comment:Backloaded December 21, 2010 09/21/2010 09/21/2010 documented as of this encounter Care Teams Regrader Relationship Specialty Start Date End Date Lenin Ventura MD [address] [address] PCP - General 07/06/16 Lenin Ventura MD [address] [address] 07/06/16 Burt Dos Santos MD PhD [address] [address] Medical Oncologist/[employer] Medical Oncology 06/16/19 documented as of this encounter
--- OUTSIDE RECORDS SUMMARY | 2024-02-22 08:28 | XMS_ITS | Encounter Summary ---
Author Organization [facility] Healthcare Address [address] [place] [address] Care Team Providers Care Division Supervisor Name Role Phone Lenin Ventura MD Primary Care Provider [phone] Lenin Ventura MD Unavailable [phone] Burt Dos Santos MD PhD Unavailable [phone] Reason for Visit * Reason Comments Wound Check Encounter Details Date Type Department Care Team (Late st Contact Info) Description 08/04/2022 3:00 PM CDT - 08/04/2022 6:59 PM CDT Emergency [facility] Emergency Department [address] [place] [id number] Simone Albright MD [address] [facility] [address] [place], [place] [id number] Abscess of left thigh (Primary Dx); Cellulitis of left thigh; Personal history of CLL (chronic lymphocytic leukemia); Primary hypertension; Diabetes mellitus type 2 in obese (CMS/HCC) (HCC) Discharge Disposition: Discharge to home or self care Social History Tobacco Use Types Packs/Day Years Used Date Smoking Tobacco: Former Smokeless Tobacco: Never Alcohol Use Standard Drinks/Week Comments Not Currently 0 (1 standard drink = 0.6 oz pur e alcohol) Sex and Gender Information Value Date Recorded Sex Assigned at Not on file 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 Gender Identity Not on file Sexual Orientation Not on file documented as of this encounter Last Filed Vital Signs Vital Sign Reading Time Taken Comments Blood Pressure 135/68 08/04/2022 6:30 PM CDT Pulse 85 08/04/2022 6:25 PM CDT Temperature 36.7 ??C (98.1 ??F) 08/04/2022 1:59 PM CD T Respiratory Rate 16 08/04/2022 1:59 PM CDT Oxygen Saturation 97% 08/04/2022 6:25 PM CDT Inhaled Oxygen Concentration - - Weight 124.7 kg (275 lb) 08/04/2022 2:02 PM CDT Height 193 cm (6' 4 ) 08/04/2022 2:02 PM CDT Body Mass Index 33.47 08/04/2022 2:02 PM CDT documented in this encounter Discharge Instructions * Discharge Instructions* Kathy Kim MD - 08/04/2022 6:29 PM CDT Return to the emergency department if you develop severe chest pain, if you suddenly develop doublevision, difficulty speaking, numbness, cannot move your arms or legs, fever of 100.4 F or greater, if your vomit has red, brown, green or black stuff in it, difficulty breathing, lose consciousness, have blood in your stool or urine, are unable to keep food/water down. Please return if you have anyother concerns. Please follow up with your primary care doctor regarding today's visit within 24-48hours, even if you are feeling better. * Attachments The following attachments cannot be sent through Care Everywhere. * ABSCESS (INCISION & DRAINAGE) (DANISH) documented in this encounter Medications at Time of Discharge magnesium oxide (MAG-OX) 250 mg (150.8 mg elemental) tabletIndications :hypomagnesemia Take 1 tablet (250 mg total) by mouth daily 06/25/2019 mupirocin (BACTROBAN) 2 % ointment Apply 1 inch of ointment to nasal irrigations 3x's daily 30 g 3 06/23/2019 ALPRAZolam (XANAX) 0.25 mg tablet Take 0.5-1 tablets (0.125-0.25 mg total) by mouth 3 (three) times a day as needed for anxiety 05/18/2019 clindamycin (CLEOCIN T) 1 % lotion Apply topically 2 (two) times a day as needed (sores on hands, arms) 60 mL 3 07/04/2022 fluticasone (FLONASE) 50 mcg/actuation nasal spray Administer 2 sprays into each nostril daily 03/08/2015 melatonin 5 mg capsuleIndication s:Insomnia, unspecified type Take 5 mg by mouth nightly as needed (insomnia) 0 06/25/2019 oxyCODONE (ROXICODONE) 5 mg immediate release tabletIndications :Pain Take 1 tablet (5 mg total) by mouth every 4 (four) hours as needed for pain (abscess) for up to 10 doses 10 tablet 08/04/2022 sildenafiL (VIAGRA) 100 mg tabletIndications :CLL (chronic lymphocytic leukemia) ([facility]) 03/14/2020 traZODone (DESYREL) 50 mg tabletIndications :CLL (chronic lymphocytic leukemia) ([facility]) Take 1 tablet (50 mg total) by mouth nightly 12/20/2020 triamcinolone (KENALOG) 0.5 % cream APPLY TOPIALLY TO RASH TWICE DAILY NEEDED FOR UP TO 2 WEEKS AT A TIME 06/02/2022 zinc 50 mg tabletIndications :Zinc deficiency Take 50 mg by mouth daily 30 each 06/25/2019 acalabrutinib maleate (CALQUENCE) 100 mg tabletIndications :Chronic Lymphocytic Leukemia Take 1 tablet (100 mg total) by mouth 2 (two) times a day Swallow whole with water and with or without food 60 tablet 3 05/31/2022 3 acyclovir (ZOVIRAX) 200 mg capsuleIndication s:Prophylaxis, Medical Take 2 capsules (400 mg total) by mouth 2 (two) times a day 360 capsule 3 09/01/2021 3 sulfamethoxazole- trimethoprim (BACTRIM DS) 800-160 mg per tablet Take 1 tablet by mouth 2 (two) times a day for 10 days 20 tablet 08/02/2022 3 documented as of this encounter Ordered Prescriptions Prescription Sig Dispense Quantity Refills Last Filled Start Date End Date oxyCODONE (ROXICODONE) 5 mg immediate release tabletIndications:P ain Take 1 tablet (5 mg total) by mouth every 4 (four) hours as needed for pain (abscess) for up to 10 doses 10 tablet 08/04/2022 documented in this encounter Discharge Disposition Disposition Code Departure Means Destination Comment s Discharge to home or self care VSS, GCS 15, A&Ox4. Ambulatory, pt d/c home at this time with family, prescriptions explained to pt documented in this encounter ED Notes * Simone Albright MD - 08/04/2022 4:11 PM CDT Images from the original note were not included. HPI Chief Complaint Patient presents with Wound Check HPI 71-year-old male with past medical history of chronic lymphocytic leukemia on ibrutinib follows with Dr. Dos Santos presenting with left outer thigh swelling, erythema, purulent drainage and pain. Patient states about a week ago, his left left outer thigh was very itchy, but over the last several days has become more erythematous, painful and had some purulent drainage. He called his PCP's office who prescribed Bactrim on 08/02/2022, which he has been compliant with, however, the pain was unbearable today prompting his visit for further evaluation here in the emergency department. Patient denies trauma or falls. Patient denies insect or spider bites. Patient History: Patient Active Problem List Diagnosis Date Noted Acute recurrent sinusitis 06/12/2019 Hypogammaglobulinemia (HCC) 06/13/2019 COVID 09/06/2021 Mixed hearing loss, bilateral 07/10/2019 Mastoiditis of both sides 06/14/2019 Thyroid nodule 06/12/2019 Anxiety and depression CLL (chronic lymphocytic leukemia) (HCC) 08/28/2017 Past Medical History: Diagnosis Date Anxiety and depression CLL (chronic lymphocytic leukemia) (HCC) Thyroid nodule 06/12/2019 Past Surgical History: Procedure Laterality Date BIOPSY LYMPH NODE SUPERFICIAL N/A 12/07/2014 CERVICAL SPINE SURGERY [address] Shaquille King at [facility] LAPAROSCOPIC CHOLECYSTECTOMY 2005 Dr. Kingsley- [facility] LYMPH NODE BIOPSY 2006 Family History Problem Relation Age of Onset Heart disease Father Hypertension Father Diabetes Father Glaucoma Father Atrial fibrillation Father Coronary artery disease Father Macular degeneration Mother Hypertension Mother Anxiety disorder Mother Depression Daughter Depression Son Anxiety disorder Daughter Anxiety disorder Son Colon cancer Other Social History Tobacco Use Smoking status: Former Smokeless tobacco: Never Substance and Sexual Activity Alcohol use: Not Currently Drug use: Never Sexual activity: None Social History Social History Narrative Merged History Encounter Review of Systems Constitutional: Negative for chills, diaphoresis, fatigue and fever. HENT: Negative for congestion, mouth sores, rhinorrhea, sore throat and trouble swallowing. Eyes: Negative for visual disturbance. Respiratory: Negative for cough, chest tightness, shortness of breath and wheezing. Cardiovascular: Negative for chest pain, palpitations and leg swelling. Gastrointestinal: Negative for abdominal pain, abdominal distention, blood in stool, constipation, diarrhea, nausea and vomiting. Endocrine: Negative for polyuria. Genitourinary: Negative for dysuria, flank pain, hematuria, penile discharge, penile bleeding and penile pain. Musculoskeletal: Negative for back pain, neck pain and neck stiffness. Skin: Negative for pallor. Neurological: Negative for dizziness, seizures, weakness, light-headedness, numbness and headaches. Psychiatric/Behavioral: Negative for agitation. Physical Exam ED Triage Vitals Temp Pulse Resp BP SpO2 08/04/22 1359 08/04/22 1359 08/04/22 1359 08/04/22 1359 08/04/22 1359 36.7 ??C (98.1 ??F) 86 16 129/81 96 % Temp src Heart Rate Source Patient Position BP Location FiO2 (%) 08/04/22 1359 -- -- -- -- Oral Height Height Method Weight Weight Method 08/04/22 1402 08/04/22 1402 08/04/22 1402 08/04/22 1402 1.93 m (6' 4 ) Stated 124.7 kg (275 lb) Stated Physical Exam Exam: VS reviewed CONSTITUTIONAL: Chronically ill-appearing. NAD. Not acutely ill or toxic appearing. Pleasant and cooperative. HEAD: Normocephalic; atraumatic EYES: PERRL, EOM intact; conjunctiva and sclera are clear bilaterally. Mouth: moist and clear without any exudate. CARD: Regular rate and rhythm.Normal S1, S2; no murmurs, rubs, or gallops. RESP: Normal respiratory effort; breath sounds clear and equal bilaterally; no wheezes, rhonchi, orrales. ABD: Normal bowel sounds; nondistended; no tenderness to palpation, no rebound/guarding, no palpable organomegaly, no masses, no bruits. EXT: Normal ROM in all four extremities; distal pulses are normal in all 4 extremities, no edema SKIN: Warm and dry. Left outer thigh erythema and induration with fluctuance and no purulent drainage at this time. NEURO: A&Ox4, sensory motor exam intact bilaterally Post I&D MDM 71-year-old male with past medical history of chronic lymphocytic leukemia on ibrutinib follows with Dr. Dos Santos presenting with left outer thigh swelling, erythema, purulent drainage and pain. Patient has been taking Bactrim prescribed by his doctor on 08/02/2022. Here in the emergency department, patient is A&Ox4, afebrile, not tachypneic or tachycardic and normotensive. Exam is notable for a chronically ill appearing male who is not in acute distress. clear breath sounds bilaterally, regular rate and rhythm, no abdominal distention, no tenderness to palpation, no rebound or guarding. Left outer thigh swelling, induration with fluctuance and tenderness to palpation with no active purulent drainage at this time. Differential diagnoses include but are not limited to abscess, cellulitis, low concern for osteomyelitis or fracture. Low concern for loxoscelism envenomation. Plan: Imaging: None at this time Labs: None at this time Management: Supportive care, analgesia, antiemetics, I&D Consults: none at this time Dispo: Discharge home with strict return precautions Medical Decision Making Risk Prescription drug management. Attending Summary of Care ED Course as of 08/06/22 1229 Time: 08/04 170 Comment: ED attending-Natalee. 71 male with CLL on PO meds followed by onc. Also sees derm for chronicskin rash. Now with 1 week left outer thigh swelling, induration, redness. Now with drainage. No FC, no inciting event such as bug bite. Photo of the golf ball sized area taken (see media). Called PMD August 02 started Bactrim 36 hours. The lesion is warm, tender, indurated, central fluctuance, no tenting no area of active drainage in ED. Plan I&D of the wound By: Simone Albright MD Time: 08/04 1822 Comment: I&D completed, covered with Tegaderm after iodoform wick placed. Less fluid expressed then I would have expected. Loculations broken up by resident By: Simone Albright MD Time: 08/05 1831 Comment: Wrote for pain meds By: Simone Albright MD Time: 08/04 1844 Comment: I have discussed the diagnosis with the patient and family at bedside. Patient had the opportunity to ask questions and these questions were answered to the patient and family's satisfaction. They verbalized understanding. Expected course of treatment and possible complications were discussed. Follow- up information was provided. Diagnosis was discussed. Treatment plan was discussed and patient and family verbalized understanding. Patient and family are agreeable to going home with outpatient follow-up. Patient understands they are encouraged to return here at any time if there are any concerns, complications or worsening of condition. By: Kathy Kim MD Abscess of left thigh Cellulitis of left thigh Personal history of CLL (chronic lymphocytic leukemia) Primary hypertension Diabetes mellitus type 2 in obese (CMS/HCC) ([facility]) I have seen and examined the patient on 08/04/2022. I agree with the findings and plan of care as documented in the resident's note. Simone Albright MD 08/04/221922 Kathy Kim MD Resident 08/04/222123 Simone Albright MD 08/06/22 1229 * Merly Bradford RN - 08/04/2022 3:00 PM CDT Bed: ED1-14 Expected date: Expected time: Means of arrival: Car Comments: Merly Bradford RN 08/04/22 1500 * Rowan Woods RN - 08/04/2022 1:57 PM CDT On chemo for lymphoma. Has been having sores appear throughout his body and is being followed by derm. The past week he has developed one on his left hip with redness, pain, drainage. Derm started him on bactrim 3 days ago. Today the pain is increasing and radiating down his leg. documented in this encounter Miscellaneous Notes * ED Procedure Note - Kathy Kim MD - 08/04/2022 6:30 PM CDT Associated Order(s): Incision and Drainage Procedure Incision and Drainage Date/Time: 08/04/2022 6:30 PM Performed by: Kathy Kim MD Authorized by: Simone Albright MD RN Notified of Procedure: yes Informed consent: Risks, benefits, alternatives discussed Patient's stated name/ matches armband: Yes Allergies confirmed: yes Consent form signed, dated, timed; matches correct patient, intended procedure and site: Yes Imaging: Pertinent imaging reviewed, correctly oriented and match to patient identifiers Lab/Diag test results: Pertinent lab/diag tests reviewed and match to patient identifiers Supplies, devices and special equipment are available: yes Site/side marked: yes Immediately prior to the procedure a time out was called: a verbal verification by the procedure participants confirmed correct patient identity, correct site/side marked and visible (if applicable);agreement on procedure to be done; and correct patient positioning Type: Abscess Location: Lower extremity Lower extremity location: L hip Skin preparation: Chloraprep Anesthesia method: Local infiltration Local anesthetic: Lidocaine 1% Incision types: Stab incision Incision depth: Subcutaneous Scalpel blade: 11 Wound management: Probed and deloculated and irrigated with saline Drainage: Bloody and purulent Drainage amount: Scant Wound treatment: Wound left open Packing materials: 1/2 in iodoform gauze Patient tolerance of procedure: Tolerated well, no immediate complications All guidewires, needles, sponges or other items are accounted for: yes Any special post procedure monitoring, testing or other considerations: yes (enter/request order) All specimens identified, labeled and matched to patient identification: yes Responsible green party for transporting specimen(s) to lab determined: yes Kathy Kim MD Resident 08/04/22 183 Cosigned by Simone Albright MD at 08/04/2022 7:20 PM CDT Associated attestation - Simone Albright MD - 08/04/2022 7:20 PM CDT I was present for the entire procedure I&D of the left buttock abscess documented in this encounter Plan of Treatment Not on file documented as of this encounter Procedures Procedure Name Priority Date/Time Associated Diagnosis Comments MS INCISION & DRAINAGE ABSCESS SIMPLE/SINGLE Routine 08/04/2022 6:30 PM CDT documented in this encounter Results * MS INCISION & DRAINAGE ABSCESS SIMPLE/SINGLE (08/04/2022 6:30 PM CDT) Narrative Simone Albright MD - 08/04/2022 6:30 PM CDT Kathy Kim MD ? 08/04/2022 ??6:31 PM Incision and Drainage Date/Time: 08/04/2022 6:30 PM Performed by: Kathy Kim MD Authorized by: Simone Albright MD ?? RN Notified of Procedure: yes ?? Informed consent: ??Risks, benefits, alternatives discussed Patient's stated name/ matches armband: ??Yes Allergies confirmed: yes ?? Consent form signed, dated, timed; matches correct patient, intended procedure and site: ??Yes Imaging: ??Pertinent imaging reviewed, correctly oriented and match to patient identifiers Lab/Diag test results: ??Pertinent lab/diag tests reviewed and match to patient identifiers Supplies, devices and special equipment are available: yes ?? Site/side marked: yes ?? Immediately prior to the procedure a time out was called: a verbal verification by the procedure participants confirmed correct patient identity, correct site/side marked and visible (if applicable); agreement on procedure to be done; and correct patient positioning ?? Type: ??Abscess Location: ??Lower extremity Lower extremity location: ??L hip Skin preparation: ??Chloraprep Anesthesia method: ??Local infiltration Local anesthetic: ??Lidocaine 1% Incision types: ??Stab incision Incision depth: ??Subcutaneous Scalpel blade: ??11 Wound management: ??Probed and deloculated and irrigated with saline Drainage: ??Bloody and purulent Drainage amount: ??Scant Wound treatment: ??Wound left open Packing materials: ??1/2 in iodoform gauze Patient tolerance of procedure: ??Tolerated well, no immediate complications All guidewires, needles, sponges or other items are accounted for: yes ?? Any special post procedure monitoring, testing or other considerations: yes (enter/request order) ?? All specimens identified, labeled and matched to patient identification: yes ?? Responsible green party for transporting specimen(s) to lab determined: yes ?? Simone Albright MD IN CLINIC/BEDSIDE ORDERABLES Final Result documented in this encounter Visit Diagnoses Diagnosis Abscess of left thigh- Primary Cellulitis of left thigh Personal history of CLL (chronic lymphocytic leukemia) Personal history of lymphoid leukemia Primary hypertension Unspecified essential hypertension Diabetes mellitus type 2 in obese Type II or unspecified type diabetes mellitus without mention of complication, not stated as uncontrolled documented in this encounter Administered Medications Inactive Administered Medications - up to 3 most recent administrations Medication Order MAR Action Action Date Dose Rate Site lidocaine PF (XYLOCAINE) 10 mg/mL (1 %) preservative free injection 100 mg 100 mg (10 mL), infiltration, Once, On 08/04/22 at 1713, For 1 dose Given 08/04/2022 5:50 PM CDT 100 mg morphine injection 4 mg 4 mg, intravenous, Administer over 4 Minutes, Once, On 08/04/22 at 1615, For 1 dose Given 08/04/2022 4:37 PM CDT 4 mg morphine injection 4 mg 4 mg, intravenous, Administer over 4 Minutes, Once, On 08/04/22 at 1803, For 1 dose Given 08/04/2022 6:05 PM CDT 4 mg ondansetron (ZOFRAN) injection 4 mg 4 mg, intravenous, Administer over 2 Minutes, Once, On 08/04/22 at 1615, For 1 dose Given 08/04/2022 4:37 PM CDT 4 mg documented in this encounter Active and Recently Administered Medications Times are shown in CDT. Scheduled Medication Order 08/02/2022 08/03/2022 08/04/2022 lidocaine PF (XYLOCAINE) 10 mg/mL (1 %) preservative free injection 100 mg (COMPLETED) 100 mg (10 mL), infiltration, Once, On 08/04/22 at 1713, For 1 dose 1750 (Given - Provid er: Kash Kim RN) morphine injection 4 mg (COMPLETED) 4 mg, intravenous, Administer over 4 Minutes, Once, On 08/04/22 at 1615, For 1 dose 1637 (Given - Provid er: Kash Kim RN) morphine injection 4 mg (COMPLETED) 4 mg, intravenous, Administer over 4 Minutes, Once, On 08/04/22 at 1803, For 1 dose 1805 (Given - Provid er: Kash Kim RN) ondansetron (ZOFRAN) injection 4 mg (COMPLETED) 4 mg, intravenous, Administer over 2 Minutes, Once, On 08/04/22 at 1615, For 1 dose 1637 (Given - Provid er: Kash Kim RN) documented in this encounter Additional Health Concerns Infection Onset Date Last Indicated Resolved Time C. difficile Comment:Backloaded December 21, 2010 09/21/2010 09/21/2010 documented as of this encounter Care Teams Division Supervisor Relationship Specialty Start Date End Date Lenin Ventura MD [address] [place] [id number] PCP - General 07/06/16 Lenin Ventura MD [address] [address] 07/06/16 Burt Dos Santos MD PhD [address] [id number] Medical Oncologist/Salesforce Business Analyst Medical Oncology 06/16/19 documented as of this encounter
--- OUTSIDE RECORDS SUMMARY | 2024-02-22 08:28 | XMS_ITS | Encounter Summary ---
Author Organization [facility] Address [address] [place] [address] Phone Care Team Providers Care Radio Disc Jockey Name Role Phone Lenin Ventura MD Primary Care Provider [phone] Lenin Ventura MD Unavailable [phone] Burt Dos Santos MD PhD Unavailable [phone] Encounter Details Date Type Department Care Team (Late st Contact Info) Description 02/07/2023 Telephone [facility] Oncology [address] 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 difficile Comment:Backloaded December 21, 2010 09/21/2010 09/21/2010 documented as of this encounter Care Teams Radio Disc Jockey Relationship Specialty Start Date End Date Lenin Ventura MD [email or web address] [address] PCP - General 07/06/16 Lenin Ventura MD [email or web address] [address] 07/06/16 Burt Dos Santos MD PhD [email or web address] [address] Medical Oncologist/Warehouse Consultant Medical Oncology 06/16/19 documented as of this encounter
--- OUTSIDE RECORDS SUMMARY | 2024-02-22 08:28 | XMS_ITS | Encounter Summary ---
Author Organization [facility] Address [address] [place] [address] Phone Care Team Providers Care Housemaid Name Role Phone Lenin Ventura MD Primary Care Provider [phone] Lenin Ventura MD Unavailable [phone] Burt Dos Santos MD PhD Unavailable [phone] Reason for Visit * Reason Comments Skin Exam C/o abcess left hip Encounter Details Date Type Department Care Team (Late st Contact Info) Description 08/09/2022 12:45 PM CDT Office Visit [facility] [address] [facility] [address] [place] [phone] Jun Fuentes MD [address] [facility] [address] [place] [address] Abscess (Primary Dx) Social History Tobacco Use Types Packs/Day Years Used Date Smoking Tobacco: Former Smokeless Tobacco: Never Alcohol Use Standard Drinks/Week Comments Not Currently 0 (1 standard drink = 0.6 oz pur e alcohol) Sex and Gender Information Value Date Recorded Sex Assigned at Not on file 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 Sex 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 male with hx of CLL on a kinase inhibitor and intermittent IVIG due to low IgG whopresents for following: - On 08/01 emailed about a tender spot on left thigh, was prescribed bactrim for abscess. On 08/02 presented to ED because of significant pain and swelling and worsening redness in the area. They performed I/D but noted there were loculations and unable to express much fluid. He has continued the Bactrim and notes the abscess is less painful and red but still fairly bothersome and healing slowly - Has history of slow healing infections and gets IVIG for low IgG monthly right now (last dose 07/19) Denies any other changing moles, rashes, non healing sores, or tender spots. Medications/Allergies/PMH: reviewed in chart ROS: Denies fever, chills, lymphadenopathy VITALS: There were no vitals taken for this visit. PHYSICAL EXAM: GENERAL: Appears well. No acute distress. ORIENTATION: Alert MOOD/AFFECT: Normal affect. The patient's bilateral lower extremities, digits/nails, and buttocks were examined and normal, unless specified below: Left thigh with ~3x3 erythematous fluctuant nodule with central seropurulent ulcerations. Tender ontouch. ASSESSMENT AND PLAN: #Abscess Discussed that it is reassuring that the size, redness and pain has decreased and slow healing is likely consistent with his history of CLL/low IgG requiring IVIG. - Performed another I/D today however unable to express too much purulent fluid. - Performed aerobic culture to see if he needs different coverage. - Will extend bactrim for another 10 days. - Prescribed Oxycodone 5mg q6hrs PRN. Patient notes needing to only use it nightly currently. Discussed with patient that if the area got redder, bigger, more painful that he should call our office/present to ED. Wound care instructions given. Incision and Drainage Dx: Abscess Location: Left thigh Anesthesia: Lidocaine 1% with epi 12 cc Follow-up: ADDY Lopez MD PhD PGY4 Dermatology Cosigned by Jun Fuentes MD at 08/26/2022 9:12 AM CDT Associated attestation - Jun Fuentes MD - 08/26/2022 9:12 AM CDT ATTESTATION: I have seen and examined the patient. I agree with the findings and plan of care as documented in the resident's note. I was present for the entire procedure. Jun Fuentes MD documented in this encounter Plan of Treatment Not on file documented as of this encounter Results * (ABNORMAL) Aerobic and anaerobic culture and gram stain Abscess Thigh, right (08/09/2022 2:08 PM CDT) Direct Specimen Exam Stain: No polymorphonuclear leukocytes seen. Moderate Gram Positive Cocci [facility] Report Final Report: Few Staphylococcus aureus Methicillin resistant (MRSA) by penicillin binding protein 2a (PBP2a) testing. (.) [facility] Organism STAPHYLOCOCCUS AUREUS [facility] Abscess (Thigh, right) 08/09/2022 2:08 PM CDT 08/09/2022 5:04 PM CDT Narrative [facility] - 08/20/2022 10:43 AM CDT Specimen received on an ESwab. Testing performed by Microbiology Laboratory ([phone]) Specimens submitted from normally sterile body sites will have all bacterial morphotypes identified. Specimens that contain grossly mixed pao and/or are from body sites that are not normally sterile will be examined for Staphylococcus aureus, Pseudomonas aeruginosa, beta-hemolytic strep, vancomycin-resistant Enterococcus, Bacteroides, Parabacteroides, Clostridium perfringens and fungus. If any of these are isolated, the organism will be reported. Current interpretive data was last revised on 2019. Organism Antibiotic Method Susceptibility Staphylococcus aureus Vancomycin INTERPRETATION Susceptible Staphylococcus aureus Ceftaroline INTERPRETATION Susceptible Staphylococcus aureus Trimethoprim with Sulfamethoxazole INTERPRETATION Susceptible Staphylococcus aureus Linezolid INTERPRETATION Susceptible Staphylococcus aureus Doxycycline INTERPRETATION Susceptible Staphylococcus aureus Clindamycin INTERPRETATION Susceptible Staphylococcus aureus Erythromycin INTERPRETATION Resistant Staphylococcus aureus Oxacillin INTERPRETATION Resistant Staphylococcus aureus Cefazolin INTERPRETATION Resistant Staphylococcus aureus Ceftriaxone INTERPRETATION Resistant Idalia Lopez MD PhD LAB MICROBIOLOGY - GEN ERAL ORDERABLES Final Result Performing Organization Address City/State/[facility] Co de Phone Number [facility] Department [place] [address] documented in this encounter Visit Diagnoses Diagnosis Abscess- Primary Cellulitis and abscess of unspecified site Abscess Cellulitis and abscess of unspecified site documented in this encounter Discontinued Medications Medication Sig Discontinue Reason Start Date End Da te sulfamethoxazole-trimeth oprim (BACTRIM DS) 800-160 mg per tablet Take 1 tablet by mouth 2 (two) times a day for 10 days Reorder 08/02/2022 08/09/2022 documented as of this encounter Additional Health Concerns Infection Onset Date Last Indicated Resolved Time C. difficile Comment:Backloaded December 21, 2010 09/21/2010 09/21/2010 documented as of this encounter Care Teams Housemaid Relationship Specialty Start Date End Date Lenin Ventura MD [address] [address] PCP - General 07/06/16 Lenin Ventura MD [address] [address] 07/06/16 Burt Dos Santos MD PhD [address] [address] Medical Oncologist/Manual Winder Medical Oncology 06/16/19 documented as of this encounter
--- OUTSIDE RECORDS SUMMARY | 2024-02-22 08:28 | XMS_ITS | Encounter Summary ---
Author Organization [facility] Address [address] [place] [address] Care Team Providers Care Tobacco Warehouse Manager Name Role Phone Lenin Ventura MD Primary Care Provider [phone] Lenin Ventura MD Unavailable [phone] Burt Dos Santos MD PhD Unavailable [phone] Encounter Details Date Type Department Care Team (Latest Contact Info) Description 03/14/2023 11:46 AM ART CONSULTANT - 03/14/2023 11:59 PM ART CONSULTANT Hospital Encounter [facility] [address] [place] [phone] CLL (chronic lymphocytic leukemia) (HCC); Hypogammaglobulinem ia (HCC) Discharge Disposition: Discharge to home or self care Social History Tobacco Use Types Packs/Day Years Used Date Smoking Tobacco: Former Smokeless Tobacco: Never Alcohol Use Standard Drinks/Week Comments Not Currently 0 (1 standard drink = 0.6 oz pur e alcohol) Sex and Gender Information Value Date Recorded Sex Assigned at Not on file Legal Sex Male 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 Gender Identity Not on file Sexual Orientation Not on file documented as of this encounter Medications at Time of Discharge ALPRAZolam (XANAX) 0.25 mg tablet Take 0.5-1 tablets (0.125-0.25 mg total) by mouth 3 (three) times a day as needed for anxiety 05/18/2019 clindamycin (CLEOCIN T) 1 % lotion Apply topically 2 (two) times a day as needed (sores on hands, arms) 60 mL 3 07/04/2022 fluticasone (FLONASE) 50 mcg/actuation nasal spray Administer 2 sprays into each nostril daily 03/08/2015 magnesium oxide (MAG-OX) 250 mg (150.8 mg elemental) tabletIndications: hypomagnesemia Take 1 tablet (250 mg total) by mouth daily 06/25/2019 melatonin 5 mg capsuleIndications :Insomnia, unspecified type Take 5 mg by mouth nightly as needed (insomnia) 0 06/25/2019 mupirocin (BACTROBAN) 2 % ointment Apply 1 inch of ointment to nasal irrigations 3x's daily 30 g 3 06/23/2019 oxyCODONE (ROXICODONE) 5 mg immediate release tabletIndications: Pain Take 1 tablet (5 mg total) by mouth every 4 (four) hours as needed for pain (abscess) for up to 10 doses 10 tablet 08/04/2022 sildenafiL (VIAGRA) 100 mg tabletIndications: CLL (chronic lymphocytic leukemia) ([facility]) 03/14/2020 tamsulosin (FLOMAX) 0.4 mg extended release capsuleIndications :CLL (chronic lymphocytic leukemia) ([facility]) TAKE 1 CAPSULE BY MOUTH EVERY DAY AT BEDTIME 08/10/2022 traZODone (DESYREL) 50 mg tabletIndications: CLL (chronic lymphocytic leukemia) ([facility]) Take 1 tablet (50 mg total) by mouth nightly 12/20/2020 triamcinolone (KENALOG) 0.5 % cream APPLY TOPIALLY TO RASH TWICE DAILY NEEDED FOR UP TO 2 WEEKS AT A TIME 06/02/2022 zinc 50 mg tabletIndications: Zinc deficiency Take 50 mg by mouth daily 30 each 06/25/2019 acalabrutinib maleate (Calquence, acalabrutinib mal,) 100 mg tabletIndications: CLL (chronic lymphocytic leukemia) ([facility]) Take 1 tablet (100 mg total) by mouth 2 (two) times a day Swallow whole with water and with or without food 60 tablet 02/14/2023 4 acyclovir (ZOVIRAX) 200 mg capsuleIndications :CLL (chronic lymphocytic leukemia) ([facility]) TAKE 2 CAPSULES(400 MG) BY MOUTH TWICE DAILY 360 capsule 3 01/23/2023 4 Calquence, acalabrutinib mal, 100 mg tabletIndications: CLL (chronic lymphocytic leukemia) (HCC) Take 1 tablet (100 mg total) by mouth 2 (two) times a day Swallow whole with water and with or without food 60 tablet 2 02/14/2023 4 documented as of this encounter Discharge Disposition Disposition Code Departure Means Destination Discharge to home or self care documented in this encounter Plan of Treatment Not on file documented as of this encounter Procedures Procedure Name Priority Date/Time Associated Diagnosis Comments EGFR Routine 03/14/2023 9:22 AM ART CONSULTANT CLL (chronic lymphocytic leukemia) (HCC) DIFFERENTIAL AUTO STAT 03/14/2023 9:2 2 AM ART CONSULTANT CLL (chronic lymphocytic leukemia) (HCC) CBC WITH AUTO DIFFERENTIAL STAT 03/14/2023 9:22 AM ART CONSULTANT CLL (chronic lymphocytic leukemia) (HCC) LACTATE DEHYDROGENASE STAT 03/14/2023 9:22 AM ART CONSULTANT CLL (chronic lymphocytic leukemia) (HCC) IGG Routine 03/14/2023 9:22 AM ART CONSULTANT Hypogammaglobulinem ia (HCC) COMPREHENSIVE METABOLIC PANEL Routine 03/14/2023 9:22 AM ART CONSULTANT CLL (chronic lymphocytic leukemia) (HCC) documented in this encounter Results * eGFR (03/14/2023 9:22 AM ART CONSULTANT) eGFR >90 >=60 mL/min/1. 73 m2 [facility] Comment: Interpretive Data Reference Interval Normal ?>/= [...] Current interpretive data was last reviewed 2021. Testing performed by: [facility], [address] [place] [phone] Blood 03/14/2023 9:22 AM ART CONSULTANT 03/14/2023 9:24 AM ART CONSULTANT Magali Stapleton RATE REVIEWER LAB BLOOD ORDERABLES Final Res ult [facility] Department [place] [address] * (ABNORMAL) Differential, auto (03/14/2023 9:22 AM ART CONSULTANT) Neutrophil abs 7.2(H) 1.5 - 6.6 K/cumm [facility] Comment:Testing performed by : [facility], [address] [place] [phone] Lymphocyte abs 5.2(H) 1.2 - 3.3 K/cumm [facility] Comment:Testing performed by : [facility], [address] [place] [phone] Monocyte abs 0.7 0.2 - 1.2 K/cumm [facility] Comment:Testing performed by : [facility], [address] [place] [phone] Eosinophil abs 0.1 0.0 - 0.5 K/cumm [facility] Comment:Testing performed by : [facility], [address] [place] [phone] Basophil abs 0.1 0.0 - 0.2 K/cumm [facility] Comment:Testing performed by : [facility], [address] [place] [phone] Neutrophil pct 54.1 % [facility] Comment: Interpretive Data Percent cell count reference ranges are not reported, since discordance with absolute values may lead to misinterpretation of CBC data. Current Interpretive Data was last revised on 2017. Testing performed by: [facility], [address] [place] [phone] Lymphocyte pct 39.5 % [facility] Comment: Interpretive Data Percent cell count reference ranges are not reported, since discordance with absolute values may lead to misinterpretation of CBC data. Current Interpretive Data was last revised on 2017. Testing performed by: [facility], [address] [place] [phone] Monocyte pct 5.3 % [facility] Comment:Testing performed by : [facility], [address] [place] [phone] Eosinophil pct 0.7 % [facility] Comment:Testing performed by : [facility], [address] [place] [phone] Basophil pct 0.4 % [facility] Comment:Testing performed by : [address] [phone] Blood 03/14/2023 9:22 AM ART CONSULTANT 03/14/2023 9:24 AM ART CONSULTANT Magali Stapleton RATE REVIEWER LAB BLOOD ORDERABLES Final Res ult [facility] Department [place] [address] * Comprehensive metabolic panel (03/14/2023 9:22 AM ART CONSULTANT) Sodium 136 135 - 145 mmol/L [facility] Comment:Testing performed by : [facility], [address] [place] [phone] Potassium, pl 4.2 3.3 - 4.9 mmol/L [facility] Comment:Testing performed by : [facility], [address] [place] [phone] Chloride 101 97 - 110 mmol/L [facility] Comment:Testing performed by : [facility], [address] [place] [phone] CO2 26 22 - 32 mmol/L [facility] Comment:Testing performed by : [facility], [address] [place] [phone] Anion gap 9 2 - 15 mmol/L [facility] Comment:Testing performed by : [facility], [address] [place] [phone] BUN 22 6 - 25 mg/dL [facility] Comment:Testing performed by : [facility], [address] [place] [phone] Creatinine 0.88 0.80 - 1.30 mg/dL [facility] Comment:Testing performed by : [facility], [address] [place] [phone] Glucose 184 70 - 199 mg/dL [facility] Comment: Interpretive Data Fasting glucose >/= 126 [...] Current interpretive data was last revised 2022. Testing performed by: [facility], [address] [place] [phone] Calcium 9.2 8.5 - 10.3 mg/dL [facility] Comment:Testing performed by : [facility], [address] [place] [phone] Bilirubin, total 0.8 0.1 - 1.2 mg/dL [facility] Comment:Testing performed by : [facility], [address] [place] [phone] Protein, pl 6.5 6.5 - 8.5 g/dL [facility] Comment:Testing performed by : [facility], [address] [place] [phone] Albumin 4.2 3.5 - 5.0 g/dL [facility] Comment:Testing performed by : [facility], [address] [place] [phone] Alk phos 72 40 - 130 Units/L [facility] Comment:Testing performed by : [facility], [address] [place] [phone] ALT 17 7 - 55 Units/L [facility] Comment:Testing performed by : [facility], [address] [place] [phone] AST 14 10 - 50 Units/L [facility] Comment:Testing performed by : [facility], [address] [place] [phone] Blood 03/14/2023 9:22 AM ART CONSULTANT 03/14/2023 9:24 AM ART CONSULTANT Magali Stapleton RATE REVIEWER LAB BLOOD ORDERABLES Final Res ult Performing Organization Address [facility]/ZIP Co de Phone Number [facility] Department [place] [address] * (ABNORMAL) IgG (03/14/2023 9:22 AM ART CONSULTANT) [facility] Immunoglobulin G 313.0(L) 700.0 - 1,600.0 mg/dL [facility] Blood 03/14/2023 9:22 AM ART CONSULTANT 03/14/2023 9:42 AM ART CONSULTANT Burt Dos Santos MD PhD LAB BLOOD ORDERABLES Final Result Performing Organization Address City/[facility]/ZIP Co de Phone Number [facility] [place] [address] * (ABNORMAL) CBC with auto differential (03/14/2023 9:22 AM ART CONSULTANT) [facility] WBC 13.2(H) 3.8 - 9.8 K/cumm [facility] Comment:Testing performed by : [facility], [address] [place], [place] [phone] Hgb 14.8 13.8 - 17.2 g/dL [facility] Comment:Testing performed by : [place] [id number] Hct 44.1 40.7 - 50.3 % [facility] Comment:Testing performed by : [place] [address] Plt 203 140 - 440 K/cumm [facility] Comment:Testing performed by : [place] [address] MPV 10.1 6.8 - 10.4 fL [facility] Comment:Testing performed by : [place] [address] RBC 4.62 4.50 - 5.70 M/cumm [facility] Comment:Testing performed by : [place] [address] MCV 95.5 80.0 - 97.6 fL [facility] Comment:Testing performed by : [place] [id number] MCH 32.0 26.7 - 33.7 pg [facility] Comment:Testing performed by : [place] [address] MCHC 33.5 32.7 - 35.5 g/dL [facility] Comment:Testing performed by : [address] RDW CV 14.1 11.8 - 14.6 % [facility] Comment:Testing performed by : [place] [id number] NRBC abs 0.03(H) 0.00 - 0.01 K/cumm [facility] Comment:Testing performed by : [place] [id number] Blood 03/14/2023 9:22 AM ART CONSULTANT 03/14/2023 9:24 AM ART CONSULTANT Magali S. [place] RATE REVIEWER LAB BLOOD ORDERABLES Final Res ult Performing Organization Address City/[facility]/ZIP Co de Phone Number [facility] Department [place] [address] * Lactate dehydrogenase (LD) (03/14/2023 9:22 AM ART CONSULTANT) Lactate dehydrogenase (LDH) 174 100 - 250 Units/L [facility] Comment:Testing performed by : [facility], [address] [place] [phone] Blood 03/14/2023 9:22 AM ART CONSULTANT 03/14/2023 9:24 AM ART CONSULTANT Magali S. [place] RATE REVIEWER LAB BLOOD ORDERABLES Final Res ult Performing Organization Address [facility] Co de Phone Number [facility] [place] [address] documented in this encounter Visit Diagnoses Diagnosis CLL (chronic lymphocytic leukemia) (HCC) Chronic lymphoid leukemia, without mention of having achieved remission Hypogammaglobulinemia (HCC) Unspecified hypogammaglobulinemia documented in this encounter Additional Health Concerns Infection Onset Date Last Indicated Resolved Time C. difficile Comment:Backloaded December 21, 2010 09/21/2010 09/21/2010 documented as of this encounter Care Teams Tobacco Warehouse Manager Relationship Specialty Start Date End Date Lenin Ventura MD [address] [address] PCP - General 07/06/16 Lenin Ventura MD [address] [address] 07/06/16 Burt Dos Santos MD PhD [address] [id number] Medical Oncologist/Drug Safety Specialist Medical Oncology 06/16/19 documented as of this encounter
--- OUTSIDE RECORDS SUMMARY | 2024-02-22 08:28 | XMS_ITS | Encounter Summary ---
Author Organization [facility] Address [address] [place] [address] Phone Care Team Providers Care Agency Development Manager Name Role Phone Lenin Ventura MD Primary Care Provider [phone] Lenin Ventura MD Unavailable [phone] Burt Dos Santos MD PhD Unavailable [phone] Reason for Visit * Episode Based Medications (Routine) - Authorized Specialty Diagnoses / Procedures Referred By Contguillermo t Referred To Contact Diagnoses Hypogammaglobulinemia (HCC) Procedures [place] GAMUNEX-C/GAMMAKED GAMUNEX Burt oDs Santos MD PhD [address] [employer] [place] [address] Phone: tel: fax: [facility] [place] [address] [facility] 7th [place] [address] Phone: tel: Referral ID Status Reason Start Date Expiration Date V isits Requested Visits Authorized [id number] Authorized 10/19/2019 08/02/2024 1 38 Encounter Details Date Type Department Care Team (Latest Contact Info) Description 08/08/2023 2:30 PM CDT Infusion [facility] Oncology [address] [place] [address] [place] [address] Hypogammaglobulinemia (HCC) (Primary Dx); CLL (chronic lymphocytic leukemia) (HCC) Social History Tobacco Use Types Packs/Day Years Used Date Smoking Tobacco: Former Smokeless Tobacco: Never Alcohol Use Standard Drinks/Week Comments Not Currently 0 (1 standard drink = 0.6 oz pur e alcohol) Sex and Gender Information Value Date Recorded Sex Assigned at Not on file 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 Gender Identity Not on file Sexual Orientation Not on file documented as of this encounter Last Filed Vital Signs Vital Sign Reading Time Taken Comments Blood Pressure 119/68 08/08/2023 6:59 PM CDT Pulse 77 08/08/2023 6:59 PM CDT Temperature 36.9 ??C (98.4 ??F) 08/08/2023 6:59 PM CD T Respiratory Rate 18 08/08/2023 2:58 PM CDT Oxygen Saturation 95% 08/08/2023 6:59 PM CDT Inhaled Oxygen Concentration - - Weight 123.1 kg (271 lb 4.8 oz) 08/08/2023 2:58 PM CDT Height - - Body Mass Index 33.02 05/29/2023 4:06 PM CDT documented in this encounter Nursing Notes * Yuki Cole, RN - 08/08/2023 2:30 PM CDT Oncology Nursing Note [facility] Jeff Abdullahi is a 72 y.o. male who presents for treatment 27 Immune Globulin Pre-treatment Nursing Assessment Nursing Assessment LOC: Alert Fatigue: Occassional Any falls since your last visit?: No Behavior: Calm Speech: Clear Language: No aphasia Vision: At baseline Peripheral Neuropathy: Yes (unchanged) Oral Mucosa Grade: Normal (0) Pt states has potential to be ?: N/A Shortness of Breath?: No Appetite: Good Nausea/Vomiting: No Diarrhea: No Constipation: No Skin Condition/Temp: Warm, Dry Swelling: No Additional Notes: BP: 119/61 Temp: 36.6 ??C (97.9 ??F) Temp src: Temporal Pulse: 80 Resp: 18 SpO2: 99 % Weight: 123.1 kg (271 lb 4.8 oz) Pain Score: 0 - No pain Treatment Patient: met treatment parameters Pre blood return: Brisk Jeff Abdullahi tolerated treatment well. Patient was frequently observed and monitored throughout the administration of their treatment. Additional Notes: Patient tolerated treatment well. No reaction. DC is in stable condition. No questions or concerns at this time. Patient will call team with any issues that arise. Will return as scheduled. Post blood return: Brisk IV access post infusion: NS Patient Education Treatment Education: Information/teaching given to [...] Diagnoses Diagnosis Hypogammaglobulinemia (HCC)- Primary Unspecified hypogammaglobulinemia CLL (chronic lymphocytic leukemia) (HCC) Chronic lymphoid leukemia, without mention of having achieved remission documented in this encounter Administered Medications Inactive Administered Medications - up to 3 most recent administrations Medication Order MAR Action Action Date Dose Rate Site acetaminophen (TYLENOL) tablet 650 mg 650 mg, oral, Once, On [place] 08/08/23 at 1545, For 1 dose, Please give 30 minutes prior to IVIG.Indications:Hypogamm aglobulinemia (HCC) Given 08/08/2023 3:19 PM CDT 650 mg diphenhydrAMINE (BENADRYL) tab/cap 25 mg 25 mg, oral, Once, [place] 08/08/23 at 1545, For 1 dose, Give 30 minutes prior to IVIG.Indications:Hypogamm aglobulinemia (HCC) Given 08/08/2023 3:19 PM CDT 25 mg famotidine (PEPCID) 20 mg/50 mL in sodium chloride 0.9% (premix) 20 mg 20 mg, intravenous, at 150 mL/hr, Administer over 20 Minutes, Once, On [place] 08/08/23 at 1545, For 1 doseIndications:Hypogamma globulinemia (HCC) New Bag 08/08/2023 3:19 PM CDT 20 mg 150 mL/hr immune globulin (GAMUNEX-C,GAMMAKED) 10 % infusion 35 g 35 g (rounded from 34.48 g = 400 mg/kg ? 86.2 kg [place] weight), intravenous, Once, On [place] 08/08/23 at 1545, For 1 dose, GamuNEX C INITIAL Infusion, 30 Minute Titration Patient Weight: 86.2 kg Initiate Infusion at 0.6 mL/kg/hr. If no reaction, may increase rate by 0.6 mL/kg/hr every 30 minutes, to a max of 4.8 mL/kg/hr 1 . 0.6 mL/kg/hr = Infuse 26 mL over 30 minutes (Rate = 52 mL/hr) 2 . 1.2 mL/kg/hr = Infuse 52 mL over 30 minutes (Rate = 103 mL/hr) 3 . 1.8 mL/kg/hr = Infuse 78 mL over 30 minutes (Rate = 155 mL/hr) 4 . 2.4 mL/kg/hr = Infuse 103 mL over 30 minutes (Rate = 207 mL/hr) 5 . 3.0 mL/kg/hr = Infuse 129 mL over 30 minutes (Rate = 259 mL/hr) 6 . 3.6 mL/kg/hr = Infuse 155 mL over 30 minutes (Rate = 310 mL/hr) 7 . 4.2 mL/kg/hr = Infuse 181 mL over 30 minutes (Rate = 362 mL/hr) 8 . 4.8 mL/kg/hr for remainder (Rate = 414 mL/hr) Administer over: 1 mg/kg/min x 30 minutes, then 2 mg/kg/min x 30 minutes, then 4 mg/kg/min x 30 minutes, then 6 mg/kg/min x 30 minutes, then 8 mg/kg/min until infusion complete. If initial titration was well tolerated, subsequent infusions may be titrated every 15 minutes.Indications:Hypog ammaglobulinemia (HCC) Rate/Dose Change 08/08/2023 6:38 PM CDT 259 mL/hr Rate/Dose Change 08/08/2023 6:08 PM CDT 206 mL/ hr Rate/Dose Change 08/08/2023 5:38 PM CDT 156 mL/ hr ondansetron (ZOFRAN) injection 8 mg 8 mg, intravenous, Administer over 2 Minutes, Once, On [place] 08/08/23 at 1545, For 1 doseIndications:Hypogammaglobulinemia (HCC) Given 08/08/2023 3:19 PM CDT 8 mg documented in this encounter Orders Nursing Count Last Ordered Date First Orde red Date ONCBCN NURSING COMMUNICATION [id number] 2 0 08/08/2023 VITAL SIGNS INTRA-INFUSION 1 08/08/2023 Appointment Requests Count Last Ordered Date Fi rst Ordered Date INFUSION APPT REQUEST 180 MIN 1 08/08/2023 documented in this encounter Additional Health Concerns Infection Onset Date Last Indicated Resolved Time C. difficile Comment:Backloaded December 21, 2010 09/21/2010 09/21/2010 documented as of this encounter Care Teams Agency Development Manager Relationship Specialty Start Date End Date Lenin Ventura MD [address] [address] PCP - General 07/06/16 Lenin Ventura MD [address] [address] 07/06/16 Burt Dos Santos MD PhD [address] [id number] Medical Oncologist/Oil Producer Medical Oncology 06/16/19 documented as of this encounter
--- OUTSIDE RECORDS SUMMARY | 2024-02-22 08:28 | XMS_ITS | Encounter Summary ---
Author Organization [facility] Address [address] [place] [address] Phone Care Team Providers Care Boiler Room Operator Name Role Phone Lenin Ventura MD Primary Care Provider [phone] Lenin Ventura MD Unavailable [phone] Burt Dos Santos MD PhD Unavailable [phone] Reason for Visit * Oncology (Routine) - Authorized Specialty Diagnoses / Procedures Referred By Contac t Referred To Contact Medical Oncology / Oncology Diagnoses Appt Comment: LAB Procedures RETURN Lenin Ventura MD [address] [facility] [address] [place] [address] Phone: tel: fax: Burt Dos Santos MD PhD [phone] [facility] [place] [address] DIV IM BONE MARROW TRANSPLANT, 5TH, [address] [place] [address] Phone: tel: fax: Referral ID Status Reason Start Date Expiration Date V isits Requested Visits Authorized [id number] Authorized 08/02/2017 03/12/2024 99 99 Encounter Details Date Type Department Care Team (Latest Contact Info) Description 06/13/2023 11:00 AM CDT Office Visit [facility] [address] [facility] 7th Floor, [place] [address] Burt Dos Santos MD PhD [address] DIV IM BONE MARROW TRANSPLANT, [address] [place] [address] Hypogammaglobulinemia (HCC); CLL (chronic lymphocytic leukemia) ([facility]) Social History Tobacco Use Types Packs/Day Years Used Date Smoking Tobacco: Former Smokeless Tobacco: Never Alcohol Use Standard Drinks/Week Comments Not Currently 0 (1 standard drink = 0.6 oz pur e alcohol) Sex and Gender Information Value Date Recorded Sex Assigned at Not on file Legal Sex Male 9:45 AM CARE AID Gender Identity Not on file Sexual Orientation Not on file documented as of this encounter Last Filed Vital Signs Vital Sign Reading Time Taken Comments Blood Pressure 119/70 06/13/2023 10:31 AM CDT Pulse 77 06/13/2023 10:31 AM CDT Temperature 36.4 ??C (97.6 ??F) 06/13/2023 1 0:28 AM CDT Respiratory Rate - - Oxygen Saturation 97% 06/13/2023 10: 31 AM CDT Inhaled Oxygen Concentration - - Weight 124.1 kg (273 lb 9.6 oz) 024 10:28 AM CDT Height - - Body Mass Index 33.3 05/29/2023 4:06 PM CDT documented in this encounter Progress Notes * Burt Dos Santos MD PhD - 06/13/2023 11:00 AM CDT BMT Progress Note Oncology History CLL (chronic lymphocytic leukemia) ([facility]) 07/03/2005 Initial Diagnosis Lymphoma, small lymphocytic; Initial sites: SC, RP, mesenteric, inguinal, iliac 03/05/2007 - 08/04/2007 Chemotherapy Rituxan / Fludarabine x 6 --> CR 11/25/[address] scan, largest nodes 4.7cm in RLQ, spleen 15cm; Needle bx L inguinal node 12/07/14 --> recurrent SLL; BMBX 12/07/14 --> 90% involved by CLL/SLL; trisomy 12 (57%) 12/15/2014 - 08/04/2015 Immunotherapy Rituxan + ALT-803; weekly x 4 then q2mo x 4; on clinical trial [facility] [phone] --> stable disease on CT; marrow 30-40% invovled 09/01/15 05/29/2018 - 06/04/2022 Targeted Therapy Imbruvica 420mg daily. D/c due to bleeding issues 09/17/[address] Neck - Diffuse lymphadenopathy throughout all cervical mojgan stations, which is slightly improved since 10/09/2018. CT CAP- No substantial change in burden of mediastinal, abdominal & pelvic lymphadenopathy in keeping with patient's known lymphoma. 09/08/[address] Neck- Stable to mild decrease in diffuse LAD throughout all cervical mojgan stations CAP - New tiny bilateral nodules which are indeterminate and may be inflammatory. No substantial change in burden of LAD in keeping with known lymphoma 06/05/2022 - Targeted Therapy Acalabrutinib 100 mg BID Subjective Interval History: Mr. Abdullahi returns for scheduled follow up. He was in the ER on 08/04 with an abscess on his left hip. It grew MRSA> it was drained several times. He was on bactrim for 3 weeks and it resolved. He has one new pimple a few inches away and they are doing topical abx. He denies fevers chills. He has not noticed any new lumps or bumps.He is having some lumbar back pain, chronic, receiving PT. He has been battling a sinus/bronchitis infection and received augmentin and is currently on levaquin. His symptoms started about 2 weeks ago. Otherwise, doing well. Outpatient Encounter Medications as of 06/13/2023: acyclovir (ZOVIRAX) 200 mg capsule, TAKE 2 CAPSULES(400 MG) BY MOUTH TWICE DAILY, Disp: 360 capsule, Rfl: 3 ALPRAZolam (XANAX) 0.25 mg tablet, Take 0.5-1 tablets by mouth 3 (three) times a day as needed for anxiety, Disp: , Rfl: Calquence, acalabrutinib mal, 100 mg tablet, Take 1 tablet (100 mg total) by mouth 2 (two) times a day Swallow whole with water and with or without food, Disp: 60 tablet, Rfl: 5 cholecalciferol (cholecalciferol) 1000 unit tablet, Take 1 tablet (1,000 Units total) by mouth daily, Disp: 30 tablet, Rfl: 11 clindamycin (CLEOCIN T) 1 % lotion, Apply topically 2 (two) times a day as needed (sores on hands, arms), Disp: 60 mL, Rfl: 3 cyanocobalamin (Vitamin B-12) 1,000 mcg tablet, Take 1 tablet (1,000 mcg total) by mouth daily, Disp: 30 tablet, Rfl: 11 fluticasone (FLONASE) 50 mcg/actuation nasal spray, Administer 2 sprays into each nostril daily , Disp: , Rfl: magnesium oxide (MAG-OX) 250 mg (150.8 mg elemental) tablet, Take 1 tablet (250 mg total) by mouth daily, Disp: , Rfl: melatonin 5 mg capsule, Take 5 mg by mouth nightly as needed (insomnia), Disp: , Rfl: 0 mupirocin (BACTROBAN) 2 % ointment, Apply 1 inch of ointment to nasal irrigations 3x's daily, Disp:30 g, Rfl: 3 oxyCODONE (ROXICODONE) 5 mg immediate release tablet, Take 1 tablet (5 mg total) by mouth every 4 (four) hours as needed for pain (abscess) for up to 10 doses, Disp: 10 tablet, Rfl: 0 sildenafiL (VIAGRA) 100 mg tablet, , Disp: , Rfl: tamsulosin (FLOMAX) 0.4 mg extended release capsule, TAKE 1 CAPSULE BY MOUTH EVERY DAY AT BEDTIME, Disp: , Rfl: traZODone (DESYREL) 50 mg tablet, Take 50 mg by mouth nightly, Disp: , Rfl: triamcinolone (KENALOG) 0.5 % cream, APPLY TOPIALLY TO RASH TWICE DAILY NEEDED FOR UP TO 2 WEEKSAT A TIME, Disp: , Rfl: zinc 50 mg tablet, Take 50 mg by mouth daily, Disp: 30 each, Rfl: 0 Facility-Administered Encounter Medications as of 06/13/2023: [COMPLETED] ioversoL (OPTIRAY 350) syringe 75 mL, 75 mL, intravenous, Once in imaging, Burt Dos Santos MD PhD, 68 mL at 06/13/23 0953 [COMPLETED] ioversoL (OPTIRAY 350) syringe 75 mL, 75 mL, intravenous, Once in imaging, Burt Dos Santos MD PhD, 62 mL at 06/13/23 0948 Objective Vitals: BP: 119/70 Temp: 36.4 ??C (97.6 ??F) Temp src: Transdermal Pulse: 77 SpO2: 97 % Weight: 124.1 kg (273 lb 9.6 oz) Physical exam: ECOG PS 0 General: No distress. Pleasant, cooperative. HEENT: No conjunctival pallor or scleral icterus. No mucositis. Supple neck. Lymph: No palpable adenopathy. Heart: RRR without murmurs or gallops. Lungs: No adventitious breath sounds. Abdomen: Obese. Spleen not palpated. Extremities: Non-pitting edema noted bilaterally. Skin: Pale. No petechiae or purpura. Psych: Anxious mood, depressed affect. Lab/Radiology/Diagnostic Review: CBC: Lab Results Component Value Date/Time WBC 8.9 06/13/2023 10:20 AM WBC 13.7 (H) 04/10/2019 03:03 PM HGB 14.2 06/13/2023 10:20 AM HGB 14.2 04/10/2019 03:03 PM HCT 41.4 06/13/2023 10:20 AM HCT 41.2 04/10/2019 03:03 PM LABPLAT 194 06/13/2023 10:20 AM LABPLAT 158 04/10/2019 03:03 PM NEUTROABS 4.0 06/13/2023 10:20 AM NEUTROABS 4,590 04/10/2019 03:03 PM CMP: Lab Results Component Value Date/Time SODIUM 138 05/16/2023 12:17 PM POTASSIUM 4.6 05/16/2023 12:17 PM CO2 27 05/16/2023 12:17 PM BUNSER 22 05/16/2023 12:17 PM GLUCOSE 156 05/16/2023 12:17 PM CREATININE 0.81 05/16/2023 12:17 PM CALCIUM 9.0 05/16/2023 12:17 PM CHLORIDE 103 05/16/2023 12:17 PM ALBUMIN 4.4 05/16/2023 12:17 PM AST 15 05/16/2023 12:17 PM ALT 19 05/16/2023 12:17 PM ALKPHOS 77 05/16/2023 12:17 PM BILITOT 0.7 05/16/2023 12:17 PM PROT 6.4 (L) 05/16/2023 12:17 PM ANIONGAP 8 05/16/2023 12:17 PM LDH: Lab Results Component Value Date/Time LDH 156 03/21/2023 12:28 PM Radiology: No imaging today. Assessment and Plan: Mr. Abdullahi is a very pleasant 72-year-old gentleman with SLL/CLL who was initially treated with FCR and obtained a 7-year remission. He relapsed and was treated on the ALT-803 plus rituximab clinical trial at the 3 mcg/kg dose level. His disease was stable, but then showed evidence of PD with enlarging lymph nodes after 2 year stabilization. He was initiated on ibrutinib early 2018 and has continued evidence of clinical response. Switched to acalabrutinib because of increased bleeding on the ibrutinib in May 2022. 1. Recurrent SLL/CLL: He is doing well on acalabrutinib with no side effcts. OI prophylaxis includeacyclovir. ROV in 3 months. 2. Recurrent sinus infections with acquired hypogammaglobulinemia: Known allergies prior to starting BTK inhibitors, though has continued to have infections, mostly related to his living situation. He received 6 doses of IVIG, last dose was last month. He now has recurrent sino-pulmonary infectionsand his IgG is 313. We'll restart IVIG x 6 months and follow. As always, the patient knows to contact our office with any questions or concerns in the interim. documented in this encounter Plan of Treatment Not on file documented as of this encounter Results * IgG (09/12/2023 10:54 AM CDT) Immunoglobulin G 721 700 - 1,600 mg/dL Blood 09/12/2023 10:5 4 AM CDT 09/12/2023 11:12 AM CDT us Burt Dos Santos MD PhD LAB BLOOD ORDERABLES Final Result [facility] Department [place] [address] * Lactate dehydrogenase (LD) (09/12/2023 10:54 AM CDT) Lactate dehydrogenase (LDH) 154 100 - 250 Units/L Comment:Testing performed by : [facility], [address] [place] [phone] Blood 09/12/2023 10:5 4 AM CDT 09/12/2023 10:58 AM CDT Burt Dos Santos MD PhD LAB BLOOD ORDERABLES Final Result [facility] Department [place] [address] * (ABNORMAL) Comprehensive metabolic panel (09/12/2023 10:54 AM CDT) Sodium 136 135 - 145 mmol/L Comment:Testing performed by : [facility], [address] [place] [phone] Potassium, pl 4.6 3.3 - 4.9 mmol/L [facility] Comment:Testing performed by : [address] [phone] Chloride 103 97 - 110 mmol/L [facility] Comment:Testing performed by : [address] [phone] CO2 27 22 - 32 mmol/L [facility] Comment:Testing performed by : [facility], [address] [place] [phone] Anion gap 7 2 - 15 mmol/L [facility] Comment:Testing performed by : [address] [phone] BUN 18 6 - 25 mg/dL [facility] Comment:Testing performed by : [address] [phone] Creatinine 0.70(L) 0.80 - 1.30 mg/dL [facility] Comment:Testing performed by : [address] [phone] Glucose 123 70 - 199 mg/dL [facility] Comment: Interpretive Data Fasting glucose >/= [...] was last revised 2022. Testing performed by: [facility], [address] [place] [phone] Calcium 9.7 8.5 - 10.3 mg/dL [facility] Comment:Testing performed by : [facility], [address] [place] [phone] Bilirubin, total 0.9 0.1 - 1.2 mg/dL [facility] Comment:Testing performed by : [facility], [address] [place] [phone] Protein, pl 7.1 6.5 - 8.5 g/dL [facility] Comment:Testing performed by : [facility], [address] [place] [phone] Albumin 4.8 3.5 - 5.0 g/dL [facility] Comment:Testing performed by : [address] [phone] Alk phos 74 40 - 130 Units/L [facility] Comment:Testing performed by : [address] [phone] ALT 27 7 - 55 Units/L [facility] Comment:Testing performed by : [address] [phone] AST 20 10 - 50 Units/L [facility] Comment:Testing performed by : [facility], [address] [place] [phone] Blood 09/12/2023 10:5 4 AM CDT 09/12/2023 10:58 AM CDT us Burt Dos Santos MD PhD LAB BLOOD ORDERABLES Final Result [facility] Department [place] [address] * CBC with auto differential (09/12/2023 10:54 AM CDT) WBC 7.9 3.8 - 9.8 K/cumm Comment:Testing performed by : [facility], [address] [place], [place] [phone] Hgb 15.3 13.8 - 17.2 g/dL [facility] Comment:Testing performed by : [facility], [address] [place], [place] [phone] Hct 44.1 40.7 - 50.3 % [facility] Comment:Testing performed by : [place] [address] Plt 184 140 - 440 K/cumm [facility] Comment:Testing performed by : [place] [phone] MPV 10.3 6.8 - 10.4 fL [facility] Comment:Testing performed by : [place] [phone] RBC 4.60 4.50 - 5.70 M/cumm [facility] Comment:Testing performed by : [place] [phone] MCV 95.8 80.0 - 97.6 fL [facility] Comment:Testing performed by : [place] [phone] MCH 33.4 26.7 - 33.7 pg [facility] Comment:Testing performed by : [place] [phone] MCHC 34.8 32.7 - 35.5 g/dL [facility] Comment:Testing performed by : [place] [phone] RDW CV 14.1 11.8 - 14.6 % [facility] Comment:Testing performed by : [place] [phone] NRBC abs 0.01 0.00 - 0.01 K/cumm [facility] Comment:Testing performed by : [facility], [address] [place] [phone] Blood 09/12/2023 10:5 4 AM CDT 09/12/2023 10:58 AM CDT Burt Dos Santos MD PhD LAB BLOOD ORDERABLES Final Result Performing Organization Address City/[facility]/ZIP Co de Phone Number [facility] [place] [address] * Lactate dehydrogenase (LD) (08/08/2023 1:41 PM CDT) Lactate dehydrogenase (LDH) 164 100 - 250 Units/L Comment:Testing performed by : [facility], [address] [place] [phone] Blood 08/08/2023 1:41 PM CDT 08/08/2023 1:42 PM CDT Burt Dos Santos MD PhD LAB BLOOD ORDERABLES Final Result Performing Organization Address City/[facility] Co de Phone Number [facility] [place] [address] * (ABNORMAL) Comprehensive metabolic panel (08/08/2023 1:41 PM CDT) Pathologist [facility] Sodium 137 135 - 145 mmol/L Comment:Testing performed by : [facility], [address] [place] [phone] Potassium, pl 4.5 3.3 - 4.9 mmol/L [facility] Comment:Testing performed by : [facility], [address] [place] [phone] Chloride 102 97 - 110 mmol/L [facility] Comment:Testing performed by : [facility], [address] [place] [phone] CO2 26 22 - 32 mmol/L [facility] Comment:Testing performed by : [facility], [address] [place] [phone] Anion gap 9 2 - 15 mmol/L [facility] Comment:Testing performed by : [facility], [address] [place] [phone] BUN 27(H) 6 - 25 mg/dL [facility] Comment:Testing performed by : [facility], [address] [place] [phone] Creatinine 0.87 0.80 - 1.30 mg/dL [facility] Comment:Testing performed by : [facility], [address] [place] [phone] Glucose 123 70 - 199 mg/dL [facility] Comment: Interpretive Data Fasting glucose >/= [...] was last revised 2022. Testing performed by: [facility], [address] [place] [phone] Calcium 10.0 8.5 - 10.3 mg/dL [facility] Comment:Testing performed by : [facility], [address] [place] [phone] Bilirubin, total 0.7 0.1 - 1.2 mg/dL [facility] Comment:Testing performed by : [facility], [address] [place] [phone] Protein, pl 6.9 6.5 - 8.5 g/dL [facility] Comment:Testing performed by : [facility], [address] [place] [phone] Albumin 4.6 3.5 - 5.0 g/dL [facility] Comment:Testing performed by : [facility], [address] [place] [phone] Alk phos 74 40 - 130 Units/L [facility] Comment:Testing performed by : [facility], [address] [place] [phone] ALT 25 7 - 55 Units/L [facility] Comment:Testing performed by : [facility], [address] [place] [phone] AST 20 10 - 50 Units/L [facility] Comment:Testing performed by : [facility], [address] [place] [phone] Blood 08/08/2023 1:41 PM CDT 08/08/2023 1:42 PM CDT Burt Dos Santos MD PhD LAB BLOOD ORDERABLES Final Result [facility] Department [place] [address] * CBC with auto differential (08/08/2023 1:41 PM CDT) WBC 9.7 3.8 - 9.8 K/cumm Comment:Testing performed by : [facility], [address] [place], [place] [phone] Hgb 15.0 13.8 - 17.2 g/dL [facility] Comment:Testing performed by : [place] [phone] Hct 44.8 40.7 - 50.3 % [facility] Comment:Testing performed by : [place] [phone] Plt 181 140 - 440 K/cumm [facility] Comment:Testing performed by : [facility], [address] [place], [place] [phone] MPV 10.3 6.8 - 10.4 fL [facility] Comment:Testing performed by : [place] [phone] RBC 4.63 4.50 - 5.70 M/cumm [facility] Comment:Testing performed by : [place] [phone] MCV 96.7 80.0 - 97.6 fL [facility] Comment:Testing performed by : [place] [phone] MCH 32.4 26.7 - 33.7 pg [facility] Comment:Testing performed by : [facility], [address] [place] [phone] MCHC 33.5 32.7 - 35.5 g/dL [facility] Comment:Testing performed by : [facility], [address] [place] [phone] RDW CV 13.9 11.8 - 14.6 % [facility] Comment:Testing performed by : [facility], [address] [place] [phone] NRBC abs 0.01 0.00 - 0.01 K/cumm [facility] Comment:Testing performed by : [facility], [address] [place] [phone] Blood 08/08/2023 1:41 PM CDT 08/08/2023 1:42 PM CDT us Burt Dos Santos MD PhD LAB BLOOD ORDERABLES Final Result Performing Organization Address City/[facility]/ZIP Co de Phone Number [facility] [place] [address] * Lactate dehydrogenase (LD) (07/11/2023 1:52 PM CDT) Lactate dehydrogenase (LDH) 139 100 - 250 Units/L Comment:Testing performed by : [facility], [address] [place] [phone] Blood 07/11/2023 1:52 PM CDT 07/11/2023 1:55 PM CDT Burt Dos Santos MD PhD LAB BLOOD ORDERABLES Final Result Performing Organization Address City/[facility]/ZIP [place] [address] * Comprehensive metabolic panel (07/11/2023 1:52 PM CDT) Sodium 139 135 - 145 mmol/L Comment:Testing performed by : [facility], [address] [place] [phone] Potassium, pl 4.7 3.3 - 4.9 mmol/L [facility] Comment:Testing performed by : [facility], [address] [place] [phone] Chloride 105 97 - 110 mmol/L [facility] Comment:Testing performed by : [facility], [address] [place] [phone] CO2 26 22 - 32 mmol/L [facility] Comment:Testing performed by : [facility], [address] [place] [phone] Anion gap 8 2 - 15 mmol/L [facility] Comment:Testing performed by : [facility], [address] [place] [phone] BUN 21 6 - 25 mg/dL [facility] Comment:Testing performed by : [facility], [address] [place] [phone] Creatinine 0.85 0.80 - 1.30 mg/dL [facility] Comment:Testing performed by : [facility], [address] [place] [phone] Glucose 143 70 - 199 mg/dL [facility] Comment: [...] was last revised 2022. Testing performed by: [facility], [address] [place] [phone] Calcium 9.7 8.5 - 10.3 mg/dL [facility] Comment:Testing performed by : [facility], [address] [place] [phone] Bilirubin, total 0.6 0.1 - 1.2 mg/dL [facility] Comment:Testing performed by : [facility], [address] [place] [phone] Protein, pl 6.8 6.5 - 8.5 g/dL [facility] Comment:Testing performed by : [facility], [address] [place] [phone] Albumin 4.5 3.5 - 5.0 g/dL [facility] Comment:Testing performed by : [facility], [address] [place] [phone] Alk phos 79 40 - 130 Units/L [facility] Comment:Testing performed by : [facility], [address] [place] [phone] ALT 23 7 - 55 Units/L [facility] Comment:Testing performed by : [facility], [address] [place] [phone] AST 15 10 - 50 Units/L [facility] Comment:Testing performed by : [facility], [address] [place] [phone] Blood 07/11/2023 1:52 PM CDT 07/11/2023 1:55 PM CDT Burt Dos Santos MD PhD LAB BLOOD ORDERABLES Final Result [facility] Department [place] [address] * (ABNORMAL) CBC with auto differential (07/11/2023 1:52 PM CDT) WBC 10.9(H) 3.8 - 9.8 K/cumm Comment:Testing performed by : [facility], [address] [place] [phone] Hgb 14.8 13.8 - 17.2 g/dL [facility] Comment:Testing performed by : [facility], [address] [place] [phone] Hct 43.7 40.7 - 50.3 % [facility] Comment:Testing performed by : [facility], [address] [place] [phone] Plt 179 140 - 440 K/cumm [facility] Comment:Testing performed by : [facility], [address] [place] [phone] MPV 10.4 6.8 - 10.4 fL [facility] Comment:Testing performed by : [facility], [address] [place], [place] [phone] RBC 4.51 4.50 - 5.70 M/cumm [facility] Comment:Testing performed by : [facility], [address] [place] [phone] MCV 96.9 80.0 - 97.6 fL [facility] Comment:Testing performed by : [facility], [address] [place] [phone] MCH 32.8 26.7 - 33.7 pg [facility] Comment:Testing performed by : [address] [phone] MCHC 33.9 32.7 - 35.5 g/dL [facility] Comment:Testing performed by : [facility], [address] [place] [phone] RDW CV 13.9 11.8 - 14.6 % [facility] Comment:Testing performed by : [facility], [address] [place] [phone] NRBC abs 0.01 0.00 - 0.01 K/cumm [facility] Comment:Testing performed by : [address] [phone] Blood 07/11/2023 1:52 PM CDT 07/11/2023 1:55 PM CDT us Burt Dos Santos MD PhD LAB BLOOD ORDERABLES Final Result [facility] Department [place] [address] documented in this encounter Visit Diagnoses Diagnosis Hypogammaglobulinemia (HCC) Unspecified hypogammaglobulinemia CLL (chronic lymphocytic leukemia) (HCC) Chronic lymphoid leukemia, without mention of having achieved remission documented in this encounter Orders Appointment Requests Count Last Ordered Date Fi rst Ordered Date ONCBCN CLINIC APPOINTMENT REQUEST 2 024 06/13/2023 ONCBCN LAB APPOINTMENT 3 09/12/202307/10 INFUSION APPT REQUEST 180 MIN 2 08/08/2023 07/11/2023 documented in this encounter Additional Health Concerns Infection Onset Date Last Indicated Resolved Time C. difficile Comment:Backloaded December 21, 2010 09/21/2010 09/21/2010 documented as of this encounter Care Teams Boiler Room Operator Relationship Specialty Start Date End Date Lenin Ventura MD [email or web address] [address] PCP - General 07/06/16 Lenin Ventura MD [address] [email or web address] [address] 07/06/16 Burt Dos Santos MD PhD [email or web address] [address] Medical Oncologist/Bereavement Program Coordinator Medical Oncology 06/16/19 documented as of this encounter
--- OUTSIDE RECORDS SUMMARY | 2024-02-22 08:28 | XMS_ITS | Encounter Summary ---
Author Organization [facility] Address [address] [place] [address] Care Team Providers Care Vacuum Worker Name Role Phone Lenin Ventura MD Primary Care Provider [phone] Lenin Ventura MD Unavailable [phone] Burt Dos Santos MD PhD Unavailable [phone] Encounter Details Date Type Department Care Team (Latest Contact Info) Description 05/16/2023 1:12 PM CDT - 05/16/2023 11:59 PM CDT Hospital Encounter [facility] ([facility]) [address] [place] [id number] Hypogammaglobulinemia (HCC); CLL (chronic lymphocytic leukemia) (HCC) Discharge Disposition: Discharge to home or self care Social History Tobacco Use Types Packs/Day Years Used Date Smoking Tobacco: Former Smokeless Tobacco: Never Alcohol Use Standard Drinks/Week Comments Not Currently 0 (1 standard drink = 0.6 oz pur e alcohol) Sex and Gender Information Value Date Recorded Sex Assigned at Not on file 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 Gender Identity Not on file Sexual Orientation [...] mg tabletIndications: CLL (chronic lymphocytic leukemia) ([facility]LY [facility]) 03/14/2020 tamsulosin (FLOMAX) 0.4 mg extended release capsuleIndications :CLL (chronic lymphocytic leukemia) ([facility]) TAKE 1 CAPSULE BY MOUTH EVERY DAY AT BEDTIME 08/10/2022 traZODone (DESYREL) 50 mg tabletIndications: CLL (chronic lymphocytic leukemia) ([facility]) Take 1 tablet (50 mg total) by mouth nightly 12/20/2020 triamcinolone (KENALOG) 0.5 % cream APPLY TOPIALLY TO RASH TWICE DAILY NEEDED FOR UP TO 2 WEEKS AT A TIME 06/02/2022 zinc 50 mg tabletIndications: Zinc deficiency Take 50 mg by mouth daily 30 each 06/25/2019 acyclovir (ZOVIRAX) 200 mg capsuleIndications :CLL (chronic lymphocytic leukemia) ([facility]) TAKE 2 CAPSULES(400 MG) BY MOUTH TWICE DAILY 360 capsule 3 01/23/2023 4 Calquence, acalabrutinib mal, 100 mg tabletIndications: CLL (chronic lymphocytic leukemia) ([facility]) Take 1 tablet (100 mg total) by mouth 2 (two) times a day Swallow whole with water and with or without food 60 tablet 5 03/15/2023 4 documented as of this encounter Discharge Disposition Disposition Code Departure Means Destination Discharge to home or self care documented in this encounter Plan of Treatment Not on file documented as of this encounter Procedures Procedure Name Priority Date/Time Associated Diagnosis Comments EGFR Routine 05/16/2023 12:17 PM CDT Hypogammaglobulinem ia (HCC) CLL (chronic lymphocytic leukemia) (HCC) COMPREHENSIVE METABOLIC PANEL Routine 05/16/2023 12:17 PM CDT Hypogammaglobulinem ia (HCC) CLL (chronic lymphocytic leukemia) (HCC) documented in this encounter Results * eGFR (05/16/2023 12:17 PM CDT) eGFR >90 >=60 mL/min/1. 73 [...] was last reviewed 2021. Testing performed by: [facility], [address] [place] [phone] Blood 05/16/2023 12:1 7 PM CDT 05/16/2023 12:25 PM CDT Burt Dos Santos MD PhD LAB BLOOD ORDERABLES Final Result [facility] Department [place] [address] * (ABNORMAL) Comprehensive metabolic panel (05/16/2023 12:17 PM CDT) Sodium 138 135 - 145 mmol/L Comment:Testing performed by : [facility], [address] [place] [phone] Potassium, pl 4.6 3.3 - 4.9 mmol/L [facility] Comment:Testing performed by : [facility], [address] [place] [phone] Chloride 103 97 - 110 mmol/L [facility] Comment:Testing performed by : [facility], [address] [place] [phone] CO2 27 22 - 32 mmol/L [facility] Comment:Testing performed by : [facility], [address] [place] [phone] Anion gap 8 2 - 15 mmol/L [facility] Comment:Testing performed by : [facility], [address] [place] [phone] BUN 22 6 - 25 mg/dL [facility] Comment:Testing performed by : [address] [phone] Creatinine 0.81 0.80 - 1.30 mg/dL [facility] Comment:Testing performed by : [facility], [address] [place] [phone] Glucose 156 70 - 199 mg/dL [facility] Comment: Interpretive Data Fasting glucose >/= 126 [...] was last revised 2022. Testing performed by: [facility], [address] [place] [phone] Calcium 9.0 8.5 - 10.3 mg/dL [facility] Comment:Testing performed by : [facility], [address] [place] [phone] Bilirubin, total 0.7 0.1 - 1.2 mg/dL [facility] Comment:Testing performed by : [facility], [address] [place] [phone] Protein, pl 6.4(L) 6.5 - 8.5 g/dL [facility] Comment:Testing performed by : [facility], [address] [place] [phone] Albumin 4.4 3.5 - 5.0 g/dL [facility] Comment:Testing performed by : [facility], [address] [place] [phone] Alk phos 77 40 - 130 Units/L [facility] Comment:Testing performed by : [facility], [address] [place] [phone] ALT 19 7 - 55 Units/L [facility] Comment:Testing performed by : [facility], [address] [place] [phone] AST 15 10 - 50 Units/L [facility] Comment:Testing performed by : [address] [phone] Blood 05/16/2023 12:1 7 PM CDT 05/16/2023 12:25 PM CDT Narrative [facility] - 05/16/2023 12:45 PM CDT Monthly starting in 1 week us Burt Dos Santos MD PhD LAB BLOOD ORDERABLES Final Result [facility] [place] [address] documented in this encounter Visit Diagnoses Diagnosis Hypogammaglobulinemia (HCC) Unspecified hypogammaglobulinemia CLL (chronic lymphocytic leukemia) (HCC) Chronic lymphoid leukemia, without mention of having achieved remission documented in this encounter Additional Health Concerns Infection Onset Date Last Indicated Resolved Time C. difficile Comment:Backloaded December 21, 2010 09/21/2010 09/21/2010 documented as of this encounter Care Teams Vacuum Worker Relationship Specialty Start Date End Date Lenin Ventura MD [address] [employer] [address] [place] [id number] PCP - General 07/06/16 Lenin Ventura MD [address] [employer] [address] [place] [phone] 07/06/16 Burt Dos Santos MD PhD [address] [employer] [address] [place] [id number] Medical Oncologist/Travel Money Advisor Medical Oncology 06/16/19 documented as of this encounter
--- OUTSIDE RECORDS SUMMARY | 2024-02-22 08:28 | XMS_ITS | Encounter Summary ---
Author Organization [facility] Healthcare Address [address] [place] [address] Care Team Providers Care Ranch Hand Name Role Phone Lenin Ventura MD Primary Care Provider [phone] Lenin Ventura MD Unavailable [phone] Burt Dos Santos MD PhD Unavailable [phone] Reason for Referral * MRI/CAT/PET Scan (Routine) - Closed Specialty Diagnoses / Procedures Referred By Trent delgado Referred To Contact Radiology Diagnoses Acute sinusitis, recurrence not specified, unspecified location Procedures CT Sinus Stealth WO Contrast Hans Amaya MD [address] [place] [address] Phone: tel: fax: [address] [place] [address] Referral ID Status Reason Start Date Expiration Date Visits Re quested Visits Authorized [id number] Closed 06/13/2023 07/13/2023 1 1 * MRI/CAT/PET Scan (Routine) - Closed Specialty Diagnoses / Procedures Referred By Trent delgado Referred To Contact Radiology Diagnoses Hypogammaglobulinemia (HCC) CLL (chronic lymphocytic leukemia) (HCC) Procedures CT Chest Abdomen Pelvis W Contrast CT Neck Chest Abdomen Pelvis W Contrast Burt Dos Santos MD PhD [address] DIV IM BONE MARROW TRANSPLANT, [address] [place] [address] Phone: tel: fax: [address] [phone] Referral ID Status Reason Start Date Expiration Date Visits Re quested Visits Authorized [id number] Closed 03/14/2023 04/12/2024 1 1 * MRI/CAT/PET Scan (Routine) - Closed Specialty Diagnoses / Procedures Referred By Contac t Referred To Contact Radiology Diagnoses Hypogammaglobulinemia (HCC) CLL (chronic lymphocytic leukemia) (HCC) Procedures CT Neck Soft Tissue W Contrast Burt Dos Santos MD PhD [address] DIV IM BONE MARROW TRANSPLANT, [address] [address] Phone: tel: fax: [address] [phone] Referral ID Status Reason Start Date Expiration Date Visits Re quested Visits Authorized [id number] Closed 04/11/2023 05/10/2024 1 1 Reason for Visit * MRI/CAT/PET Scan (Routine) - Closed Specialty Diagnoses / Procedures Referred By Contac t Referred To Contact Radiology Diagnoses Hypogammaglobulinemia (HCC) CLL (chronic lymphocytic leukemia) (HCC) Procedures CT Chest Abdomen Pelvis W Contrast CT Neck Chest Abdomen Pelvis W Contrast Burt Dos Santos MD PhD [address] DIV IM B[employer] MARROW TR[employer], [address] [address] Phone: tel: fax: [address] [phone] Referral ID Status Reason Start Date Expiration Date Visits Re quested Visits Authorized [id number] Closed 03/14/2023 04/12/2024 1 1 Encounter Details Date Type Department Care Team (Latest Contact Info) Description 06/13/2023 8:35 AM CDT - 06/13/2023 11:59 PM CDT Hospital Encounter [facility] [address] [place] [address] Burt Dos Santos MD PhD [address] [employer], [address] [place] [address] Hypogammaglobulinemia (HCC); CLL (chronic lymphocytic leukemia) (HCC); Acute sinusitis, recurrence not specified, unspecified location Discharge Disposition: Discharge to home or self care Social History Tobacco Use Types Packs/Day Years Used Date Smoking Tobacco: Former Smokeless Tobacco: Never Alcohol Use Standard Drinks/Week Comments Not Currently 0 (1 standard drink = 0.6 oz pur e alcohol) Sex and Gender Information Value Date Recorded Sex Assigned at Not on file 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 Gender Identity Not on file Sexual Orientation [...] mg tabletIndications: CLL (chronic lymphocytic leukemia) (HCC) 03/14/2020 tamsulosin (FLOMAX) 0.4 mg extended release capsuleIndications :CLL (chronic lymphocytic leukemia) (HCC) TAKE 1 CAPSULE BY MOUTH EVERY DAY AT BEDTIME 08/10/2022 traZODone (DESYREL) 50 mg tabletIndications: CLL (chronic lymphocytic leukemia) (HCC) Take 1 tablet (50 mg total) by mouth nightly 12/20/2020 triamcinolone (KENALOG) 0.5 % cream APPLY TOPIALLY TO RASH TWICE DAILY NEEDED FOR UP TO 2 WEEKS AT A TIME 06/02/2022 zinc 50 mg tabletIndications: Zinc deficiency Take 50 mg by mouth daily 30 each 06/25/2019 acyclovir (ZOVIRAX) 200 mg capsuleIndications :CLL (chronic lymphocytic leukemia) (HCC) TAKE 2 CAPSULES(400 [...] Procedure Name Priority Date/Time Associated Diagnosis Comments CT SINUS STEALTH WO CONTRAST Schedule Routine, Read Routine (OP Routine) 06/13/2023 10:03 AM CDT Acute sinusitis, recurrence not specified, unspecified location CT CHEST ABDOMEN PELVIS W CONTRAST Schedule Routine, Read Routine (OP Routine) 06/13/2023 10:03 AM CDT Hypogammaglobuline maddison (HCC) CLL (chronic lymphocytic leukemia) (HCC) CT SOFT TISSUE NECK W CONTRAST Schedule Routine, Read Routine (OP Routine) 06/13/2023 10:03 AM CDT Hypogammaglobuline maddison (HCC) CLL (chronic lymphocytic leukemia) (HCC) documented in this encounter Results * CT Sinus Stealth WO Contrast (06/13/2023 10:03 AM CDT) Anatomical Region Laterality Modality Head N/A Computed Tomogra phy 06/13/2023 2:13 PM CDT Impressions 06/13/2023 4:11 PM CDT 1. ??Mild paranasal sinus disease with a prominent mucous retention cyst in the right maxillary sinus. 2. ??No significant change in mildly prominent lymphadenopathy throughout the neck without new suspicious cervical lymphadenopathy. Dictated by: Shorty Hester MD The radiology attending physician has personally reviewed this study, and had reviewed and/or edited this written report and agrees with it. Electronically signed by: Giovani Rivera M.D. Narrative 06/13/2023 4:11 PM CDT EXAMINATION: CT of the neck with contrast CT of the paranasal sinuses without contrast HISTORY: Hypogammaglobulinemia TECHNIQUE: CT of the neck was performed according to the standard protocol with intravenous contrast. CT of the paranasal sinuses was performed using sinus protocol without contrast. Contrast information: 62 mL Optiray-350 COMPARISON: 09/08/2020. FINDINGS: Multiple prominent cervical lymph nodes are present bilaterally without single dominant lymph node. ??The previously measured level 1B lymph node in 2020 now measures 1.6 x 1.2 cm (was 1.8 x 1.3 cm). ??No new suspicious lymphadenopathy. The muscles of the neck are normal. Vessels of the neck demonstrate normal course and caliber. Fascial planes are preserved and the deep spaces of the neck are normal. The visualized airway is widely patent. Review of the topogram demonstrates no abnormalities. The frontal sinuses are normal. Mucosal thickening is present within the predominantly left anterior ethmoid air cells. A mucus retention cyst is present in the right maxillary sinus. ??Mild disc thickening is noted within the left maxillary sinus. The sphenoid sinuses are normal. The ostiomeatal units are open bilaterally. Mild leftward deviation of nasal septum. No areas of bony erosion are identified. The orbits are normal. Limited view of the frontal lobes is normal. The sphenoid septum terminates at the medial wall of the left internal carotid canal. The clinoid processes are not aerated. There is Keros type 1 olfactory fossa. ??Air cells are present overlying the left ethmoidal artery recess. ??No air cells are present overlying the right ethmoidal artery recess. The base of the skull and the temporal bones are normal. Limited views of the brain including the cerebellum and brainstem are normal. The limited view of the [place] is unremarkable. Postoperative changes from anterior instrumented discectomy and fusion of C5 and C6 are present. ??Degenerative changes in the cervical spine are greatest about the fused levels, specifically at C6-C7 where a posterior disc osteophyte complex results in moderate canal stenosis. ??Moderate canal stenosis is also noted at C5-C6 and C3-C4. ??Multilevel neural foraminal stenosis is present along with uncovertebral and facet arthropathy, most severe at C3-C4. Procedure Note Giovani Rivera MD - 06/13/2023 EXAMINATION: CT of the neck with contrast CT of the paranasal sinuses without contrast HISTORY: Hypogammaglobulinemia TECHNIQUE: CT of the neck was performed according to the standard protocol with intravenous contrast. CT of the paranasal sinuses was performed using sinus protocol without contrast. Contrast information: 62 mL Optiray-350 COMPARISON: 09/08/2020. FINDINGS: Multiple prominent cervical lymph nodes are present bilaterally without single dominant lymph node. The previously measured level 1B lymph node in 2020 now measures 1.6 x 1.2 cm (was 1.8 x 1.3 cm). No new suspicious lymphadenopathy. The muscles of the neck are normal. Vessels of the neck demonstrate normal course and caliber. Fascial planes are preserved and the deep spaces of the neck are normal. The visualized airway is widely patent. Review of the topogram demonstrates no abnormalities. The frontal sinuses are normal. Mucosal thickening is present within the predominantly left anterior ethmoid air cells. A mucus retention cyst is present in the right maxillary sinus. Mild disc thickening is noted within the left maxillary sinus. The sphenoid sinuses are normal. The ostiomeatal units are open bilaterally. Mild leftward deviation of nasal septum. No areas of bony erosion are identified. The orbits are normal. Limited view of the frontal lobes is normal. The sphenoid septum terminates at the medial wall of the left internal carotid canal. The clinoid processes are not aerated. There is Keros type 1 olfactory fossa. Air cells are present overlying the left ethmoidal artery recess. No air cells are present overlying the right ethmoidal artery recess. The base of the skull and the temporal bones are normal. Limited views of the brain including the cerebellum and brainstem are normal. The limited view of the [place] is unremarkable. Postoperative changes from anterior instrumented discectomy and fusion of C5 and C6 are present. Degenerative changes in the cervical spine are greatest about the fused levels, specifically at C6-C7 where a posterior disc osteophyte complex results in moderate canal stenosis. Moderate canal stenosis is also noted at C5-C6 and C3-C4. Multilevel neural foraminal stenosis is present along with uncovertebral and facet arthropathy, most severe at C3-C4. IMPRESSION: 1. Mild paranasal sinus disease with a prominent mucous retention cyst in the right maxillary sinus. 2. No significant change in mildly prominent lymphadenopathy throughout the neck without new suspicious cervical lymphadenopathy. Dictated by: Shorty Hester MD The radiology attending physician has personally reviewed this study, and had reviewed and/or edited this written report and agrees with it. Electronically signed by: Giovani Rivera M.D. Hans Amaya MD IMG CT PROCEDURES Final Result * CT Chest Abdomen Pelvis W Contrast [...] IMG CT PROCEDURES Fi nal Result * CT Neck Soft Tissue W Contrast (06/13/2023 10:03 AM CDT) Anatomical Region Laterality Modality Head and Neck N/A Computed Tomogra phy 06/13/2023 2:1 3 PM CDT Impressions 06/13/2023 4:11 PM CDT 1. ??Mild paranasal sinus disease with a prominent mucous retention cyst in the right maxillary sinus. 2. ??No significant change in mildly prominent lymphadenopathy throughout the neck without new suspicious cervical lymphadenopathy. Dictated by: Shorty Hester MD The radiology attending physician has personally reviewed this study, and had reviewed and/or edited this written report and agrees with it. Electronically signed by: Giovani Rivera M.D. Narrative 06/13/2023 4:11 PM CDT EXAMINATION: CT of the neck with contrast CT of the paranasal sinuses without contrast HISTORY: Hypogammaglobulinemia TECHNIQUE: CT of the neck was performed according to the standard protocol with intravenous contrast. CT of the paranasal sinuses was performed using sinus protocol without contrast. Contrast information: 62 mL Optiray-350 COMPARISON: 09/08/2020. FINDINGS: Multiple prominent cervical lymph nodes are present bilaterally without single dominant lymph node. ??The previously measured level 1B lymph node in 2020 now measures 1.6 x 1.2 cm (was 1.8 x 1.3 cm). ??No new suspicious lymphadenopathy. The muscles of the neck are normal. Vessels of the neck demonstrate normal course and caliber. Fascial planes are preserved and the deep spaces of the neck are normal. The visualized airway is widely patent. Review of the topogram demonstrates no abnormalities. The frontal sinuses are normal. Mucosal thickening is present within the predominantly left anterior ethmoid air cells. A mucus retention cyst is present in the right maxillary sinus. ??Mild disc thickening is noted within the left maxillary sinus. The sphenoid sinuses are normal. The ostiomeatal units are open bilaterally. Mild leftward deviation of nasal septum. No areas of bony erosion are identified. The orbits are normal. Limited view of the frontal lobes is normal. The sphenoid septum terminates at the medial wall of the left internal carotid canal. The clinoid processes are not aerated. There is Keros type 1 olfactory fossa. ??Air cells are present overlying the left ethmoidal artery recess. ??No air cells are present overlying the right ethmoidal artery recess. The base of the skull and the temporal bones are normal. Limited views of the brain including the cerebellum and brainstem are normal. The limited view of the [place] is unremarkable. Postoperative changes from anterior instrumented discectomy and fusion of C5 and C6 are present. ??Degenerative changes in the cervical spine are greatest about the fused levels, specifically at C6-C7 where a posterior disc osteophyte complex results in moderate canal stenosis. ??Moderate canal stenosis is also noted at C5-C6 and C3-C4. ??Multilevel neural foraminal stenosis is present along with uncovertebral and facet arthropathy, most severe at C3-C4. Procedure Note Giovani Rivera MD - 06/13/2023 EXAMINATION: CT of the neck with contrast CT of the paranasal sinuses without contrast HISTORY: Hypogammaglobulinemia TECHNIQUE: CT of the neck was performed according to the standard protocol with intravenous contrast. CT of the paranasal sinuses was performed using sinus protocol without contrast. Contrast information: 62 mL Optiray-350 COMPARISON: 09/08/2020. FINDINGS: Multiple prominent cervical lymph nodes are present bilaterally without single dominant lymph node. The previously measured level 1B lymph node in 2020 now measures 1.6 x 1.2 cm (was 1.8 x 1.3 cm). No new suspicious lymphadenopathy. The muscles of the neck are normal. Vessels of the neck demonstrate normal course and caliber. Fascial planes are preserved and the deep spaces of the neck are normal. The visualized airway is widely patent. Review of the topogram demonstrates no abnormalities. The frontal sinuses are normal. Mucosal thickening is present within the predominantly left anterior ethmoid air cells. A mucus retention cyst is present in the right maxillary sinus. Mild disc thickening is noted within the left maxillary sinus. The sphenoid sinuses are normal. The ostiomeatal units are open bilaterally. Mild leftward deviation of nasal septum. No areas of bony erosion are identified. The orbits are normal. Limited view of the frontal lobes is normal. The sphenoid septum terminates at the medial wall of the left internal carotid canal. The clinoid processes are not aerated. There is Keros type 1 olfactory fossa. Air cells are present overlying the left ethmoidal artery recess. No air cells are present overlying the right ethmoidal artery recess. The base of the skull and the temporal bones are normal. Limited views of the brain including the cerebellum and brainstem are normal. The limited view of the [place] is unremarkable. Postoperative changes from anterior instrumented discectomy and fusion of C5 and C6 are present. Degenerative changes in the cervical spine are greatest about the fused levels, specifically at C6-C7 where a posterior disc osteophyte complex results in moderate canal stenosis. Moderate canal stenosis is also noted at C5-C6 and C3-C4. Multilevel neural foraminal stenosis is present along with uncovertebral and facet arthropathy, most severe at C3-C4. IMPRESSION: 1. Mild paranasal sinus disease with a prominent mucous retention cyst in the right maxillary sinus. 2. No significant change in mildly prominent lymphadenopathy throughout the neck without new suspicious cervical lymphadenopathy. Dictated by: Shorty Hester MD The radiology attending physician has personally reviewed this study, and had reviewed and/or edited this written report and agrees with it. Electronically signed by: Giovani Rivera M.D. Result [facility] Burt Dos Santos MD PhD IMG CT PROCEDURES Fi nal Result documented in this encounter Visit Diagnoses Diagnosis Hypogammaglobulinemia (HCC) Unspecified hypogammaglobulinemia CLL (chronic lymphocytic leukemia) (HCC) Chronic lymphoid leukemia, without mention of having achieved remission Acute sinusitis, recurrence not specified, unspecified location documented in this encounter Administered Medications Inactive Administered Medications - up to 3 most recent administrations Medication Order MAR Action Action Date Dose Rate Site ioversoL (OPTIRAY 350) syringe 75 mL 75 mL, intravenous, Once in imaging, contrast, Starting on [place] 06/13/23 at 0937, For 1 dose Contrast Given 06/13/2023 9:53 AM CDT 68 mL ioversoL (OPTIRAY 350) syringe 75 mL 75 mL, intravenous, Once in imaging, contrast, Starting on [place] 06/13/23 at 0937, For 1 dose Contrast Given 06/13/2023 9:48 AM CDT 62 mL documented in this encounter Orders Medications Ordered That Juan ht Not Have Been Administered Count Last Ordered Date First Ordered Date ioversoL (OPTIRAY 350) syringe 75 mL 1 06/02 documented in this encounter Additional Health Concerns Infection Onset Date Last Indicated Resolved Time C. difficile Comment:Backloaded December 21, 2010 09/21/2010 09/21/2010 documented as of this encounter Care Teams [place] Relationship Specialty Start Date End Date Lenin Ventura MD [address] [address] PCP - General 07/06/16 Lenin Ventura MD [address] [address] 07/06/16 Burt Dos Santos MD PhD [address] [address] Medical Oncologist/State Trooper Medical Oncology 06/16/19 documented as of this encounter
--- OUTSIDE RECORDS SUMMARY | 2024-02-22 08:28 | XMS_ITS | Encounter Summary ---
Author Organization [facility] Address [address] [place] [address] Phone Care Team Providers Care Senior Sales Representative Name Role Phone Lenin Ventura MD Primary Care Provider [phone] Lenin Ventura MD Unavailable [phone] Burt Dos Santos MD PhD Unavailable [phone] Reason for Visit * Oncology (Routine) - Authorized Specialty Diagnoses / Procedures Referred By Contac t Referred To Contact Oncology Diagnoses CLL (chronic lymphocytic leukemia) (HCC) Procedures ONCBCN ARM DRAW APPT ONC LAB ONLY Burt Dos Santos MD PhD Phone: tel: fax: Burt Dos Santos MD PhD Phone: tel: fax: Referral ID Status Reason Start Date Expiration Date Visits Requested Visits Authorized [id number] Authorized Specialty Services Required 07/03/2019 03/12/[phone] Encounter Details Date Type Department Care Team (Latest Contact Info) Description 05/16/2023 12:00 PM CDT Lab [facility] Oncology [facility] 7th [place] [address] [place] [address] Hypogammaglobulinemia (HCC); CLL (chronic lymphocytic leukemia) (HCC) Social History Tobacco Use Types Packs/Day Years Used Date Smoking Tobacco: Former Smokeless Tobacco: Never Alcohol Use Standard Drinks/Week Comments Not Currently 0 (1 standard drink = 0.6 oz pur e alcohol) Sex and Gender Information Value Date Recorded Sex Assigned at Not on file 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 difficile Comment:Backloaded December 21, 2010 09/21/2010 09/21/2010 documented as of this encounter Care Teams Senior Sales Representative Relationship Specialty Start Date End Date Lenin Ventura MD [facility] [address] [address] PCP - General 07/06/16 Lenin Ventura MD [facility] [address] [address] 07/06/16 Burt Dos Santos MD PhD [facility] [address] [address] Medical Oncologist/Tractor Mechanic Helper Medical Oncology 06/16/19 documented as of this encounter
--- OUTSIDE RECORDS SUMMARY | 2024-02-22 08:28 | XMS_ITS | Encounter Summary ---
Author Organization [facility] Address [address] [place] [address] Phone Care Team Providers Care Perennial House Manager Name Role Phone Lenin Ventura MD Primary Care Provider [phone] Lenin Ventura MD Unavailable [phone] Burt Dos Santos MD PhD Unavailable [phone] Reason for Visit * Oncology (Routine) - Authorized Specialty Diagnoses / Procedures Referred By Contac t Referred To Contact Oncology Diagnoses CLL (chronic lymphocytic leukemia) (HCC) Procedures ONCBCN ARM DRAW APPT ONC LAB ONLY Burt Dos Santos MD PhD Phone: tel: fax: Burt Dos Santos MD PhD Phone: tel: fax: Referral ID Status Reason Start Date Expiration Date Visits Requested Visits Authorized [id number] Authorized Specialty Services Required 07/03/2019 03/12/2024 99 [phone] Encounter Details Date Type Department Care Team (Latest Contact Info) Description 08/08/2023 1:30 PM CDT Lab [facility] Oncology [facility] 7th [place] [address] [place] [address] Hypogammaglobulinemia (HCC); CLL (chronic lymphocytic leukemia) (HCC) Social History Tobacco Use Types Packs/Day Years Used Date Smoking Tobacco: Former Smokeless Tobacco: Never Alcohol Use Standard Drinks/Week Comments Not Currently 0 (1 standard drink = 0.6 oz pur e alcohol) Sex and Gender Information Value Date Recorded Sex Assigned at Not on file Legal Sex Male 9:45 AM FILLER IN Gender Identity Not on file Sexual Orientation [...] rst Ordered Date ONCBCN LAB APPOINTMENT 1 08/08/2023 documented in this encounter Additional Health Concerns Infection Onset Date Last Indicated Resolved Time C. difficile Comment:Backloaded December 21, 2010 09/21/2010 09/21/2010 documented as of this encounter Care Teams Perennial House Manager Relationship Specialty Start Date End Date Lenin Ventura MD [facility] [address] [address] PCP - General 07/06/16 Lenin Ventura MD [facility] [address] [address] 07/06/16 Burt Dos Santos MD PhD [facility] [address] [address] Medical Oncologist/Senior Project Leader/Team Lead Medical Oncology 06/16/19 documented as of this encounter
--- OUTSIDE RECORDS SUMMARY | 2024-02-22 08:28 | XMS_ITS | Encounter Summary ---
Author Organization [facility] Address [address] [place] [address] Phone Care Team Providers Care Boat Builder And Repairer Name Role Phone Lenin Ventura MD Primary Care Provider [phone] Lenin Ventura MD Unavailable [phone] Burt Dos Santos MD PhD Unavailable [phone] Reason for Visit * Oncology (Routine) - Authorized Specialty Diagnoses / Procedures Referred By Contac t Referred To Contact Oncology Diagnoses CLL (chronic lymphocytic leukemia) (HCC) Procedures ONCBCN ARM DRAW APPT ONC LAB ONLY Burt Dos Santos MD PhD Phone: tel: fax: Burt Dos Santos MD PhD Phone: tel: fax: Referral ID Status Reason Start Date Expiration Date Visits Requested Visits Authorized [id number] Authorized Specialty Services Required 07/03/2019 03/12/2024 99 99 Encounter Details Date Type Department Care Team (Latest Contact Info) Description 03/21/2023 12:00 PM MILITARY SCIENCE INSTRUCTOR Lab [facility] Oncology 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 difficile Comment:Backloaded December 21, 2010 09/21/2010 09/21/2010 documented as of this encounter Care Teams Boat Builder And Repairer Relationship Specialty Start Date End Date Lenin Ventura MD [facility] [address] [address] PCP - General 07/06/16 Lenin Ventura MD [facility] [address] [address] 07/06/16 Burt Dos Santos MD PhD [facility] [address] [address] Medical Oncologist/Bus Driver Medical Oncology 06/16/19 documented as of this encounter
--- OUTSIDE RECORDS SUMMARY | 2024-02-22 08:28 | XMS_ITS | Encounter Summary ---
Author Organization [facility] Address [address] [place] [address] Phone Care Team Providers Care Senior Gl Accountant Name Role Phone Lenin Ventura MD Primary Care Provider [phone] Lenin Ventura MD Unavailable [phone] Burt Dos Santos MD PhD Unavailable [phone] Reason for Visit * Episode Based Medications (Routine) - Authorized Specialty Diagnoses / Procedures Referred By Contguillermo t Referred To Contact Diagnoses Hypogammaglobulinemia (HCC) Procedures [place] GAMUNEX-C/GAMMAKED GAMUNEX Burt Dos Santos MD PhD [address] DIV IM BONE MARROW TRANSPLANT[address] [place] [address] Phone: tel: fax: [facility] [place] [id number] [facility] 7th [place] [address] Phone: tel: Referral ID Status Reason Start Date Expiration Date V isits Requested Visits Authorized [id number] Authorized 10/19/2019 08/02/2024 1 38 Encounter Details Date Type Department Care Team (Latest Contact Info) Description 05/16/2023 1:00 PM CDT Infusion [facility] Oncology [address] [place] [address] [place] [address] Hypogammaglobulinemia (HCC) (Primary Dx); CLL (chronic lymphocytic leukemia) (HCC) Social History Tobacco Use Types Packs/Day Years Used Date Smoking Tobacco: Former Smokeless Tobacco: Never Alcohol Use Standard Drinks/Week Comments Not Currently 0 (1 standard drink = 0.6 oz pur e alcohol) Sex and Gender Information Value Date Recorded Sex Assigned at Not on file 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 Sex 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 Gender Identity Not on file Sexual Orientation Not on file documented as of this encounter Last Filed Vital Signs Vital Sign Reading Time Taken Comments Blood Pressure 107/64 05/16/2023 4:07 PM CDT Pulse 74 05/16/2023 4:07 PM CDT Temperature 36.8 ??C (98.2 ??F) 05/16/2023 4:07 PM CD T Respiratory Rate 18 05/16/2023 4:07 PM CDT Oxygen Saturation 96% 05/16/2023 4:07 PM CDT Inhaled Oxygen Concentration - - Weight 125.6 kg (276 lb 14.4 oz) 05/16/2023 1:05 PM CDT Height - - Body Mass Index 33.93 03/14/2023 9:44 AM 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 documented in this encounter Nursing Notes * Cha Chambers, RN - 05/16/2023 1:00 PM CDT Oncology Nursing Note [facility] Jeff Abdullahi is a 72 y.o. male who presents for treatment 24 of IVIG. Pre-treatment Nursing Assessment Nursing Assessment LOC: Alert, Awake Fatigue: Occassional Any falls since your last visit?: No Behavior: Calm Speech: Clear Language: No aphasia Peripheral Neuropathy: Yes (hands/feet) Oral Mucosa Grade: Normal (0) Shortness of Breath?: No Cough: Absent Appetite: Good Have You Recently Lost Weight Without Trying?: No Have you been eating poorly because of a decreased appetite?: No Malnutrition Screening Tool (MST) Score: 0 Nausea/Vomiting: No Diarrhea: No Constipation: No Skin Condition/Temp: Warm, Dry Swelling: No Additional Notes: BP: 107/64 Temp: 36.8 ??C (98.2 ??F) Temp src: Temporal Pulse: 74 Resp: 18 SpO2: 96 % Weight: 125.6 kg (276 lb 14.4 oz) Pain Score: 0 - No pain Treatment Patient: met treatment parameters Pre blood return: Brisk Jeff F Clanney tolerated treatment well. Patient was frequently observed and monitored throughout the administration of their treatment. Additional Notes: Post blood return: Brisk IV access post infusion: NS Patient Education Treatment Education: Information/teaching given to patient including symptom management, process and procedure related to today's visit, and when to notify MD Response: Verbalizes understanding Discharge Plan Discharge instructions [...] mg 650 mg, oral, Once, On [place] 05/16/23 at 1345, For 1 dose, Please give 30 minutes prior to IVIG.Indications:Hypogammaglobu linemia (HCC) Given 05/16/2023 1:30 PM CDT 650 mg diphenhydrAMINE (BENADRYL) tab/cap 25 mg 25 mg, oral, Once, On [place] 05/16/23 at 1345, For 1 dose, Give 30 minutes prior to IVIG.Indications:Hypogammaglobu linemia (HCC) Given 05/16/2023 1:30 PM CDT 25 mg famotidine (PEPCID) injection 20 mg 20 mg, intravenous, Administer over 2 Minutes, Once, On [place] 05/16/23 at 1345, For 1 doseIndications:Hypogammaglobul inemia (HCC) Given 05/16/2023 1:31 PM CDT 20 mg immune globulin (GAMUNEX-C,GAMMAKED) 10 % infusion 35 g 35 g (rounded from 34.48 g = 400 mg/kg ? 86.2 kg [place] weight), intravenous, Once, On [place] 05/16/23 at 1345, For 1 dose, GamuNEX C INITIAL Infusion, [...] subsequent infusions may be titrated every 15 minutes.Indications:Hypogammagl obulinemia (HCC) Rate/Dose Change 05/16/2023 4:07 PM CDT 310 mL/hr Rate/Dose Change 05/16/2023 3:46 PM CDT 258 mL/ hr Rate/Dose Change 05/16/2023 3:22 PM CDT 207 mL/ hr ondansetron (ZOFRAN) injection 8 mg 8 mg, intravenous, Administer over 2 Minutes, Once, On [place] 05/16/23 at 1345, For 1 doseIndications:Hypogammaglobulinemia (HCC) Given 05/16/2023 1:35 PM CDT 8 mg documented in this encounter Orders Nursing Count Last Ordered Date First Orde red Date ONCBCN NURSING COMMUNICATION [id number] 2 0 05/16/2023 VITAL SIGNS INTRA-INFUSION 1 05/16/2023 Appointment Requests Count Last Ordered Date Fi rst Ordered Date ONCBCN INFUSION APPT REQUEST 1 05/16/2023 documented in this encounter Additional Health Concerns Infection Onset Date Last Indicated Resolved Time C. difficile Comment:Backloaded December 21, 2010 09/21/2010 09/21/2010 documented as of this encounter Care Teams Senior Gl Accountant Relationship Specialty Start Date End Date Lenin Ventura MD [address] [place] [id number] PCP - General 07/06/16 Lenin Ventura MD [address] [place] [address] 07/06/16 Burt Dos Santos MD PhD [address] [place] [id number] Medical Oncologist/Tin Stacker Medical Oncology 06/16/19 documented as of this encounter
--- OUTSIDE RECORDS SUMMARY | 2024-02-22 08:28 | XMS_ITS | Encounter Summary ---
Author Organization [facility] Address [address] [place] [address] Phone Care Team Providers Care Triple Valve Tester Name Role Phone Lenin Ventura MD Primary Care Provider [phone] Lenin Ventura MD Unavailable [phone] Burt Dos Santos MD PhD Unavailable [phone] Reason for Visit * Oncology (Routine) - Authorized Specialty Diagnoses / Procedures Referred By Contac t Referred To Contact Oncology Diagnoses CLL (chronic lymphocytic leukemia) (HCC) Procedures ONCBCN ARM DRAW APPT ONC LAB ONLY Burt Dos Santos MD PhD Phone: tel: fax: Burt Dos Santos MD PhD Phone: tel: fax: Referral ID Status Reason Start Date Expiration Date Visits Requested Visits Authorized [id number] Authorized Specialty Services Required 07/03/2019 03/12/2024 99 99 Encounter Details Date Type Department Care Team (Late st Contact Info) Description 11/22/2022 9:30 AM CDT Lab [facility] Oncology [facility] 7th [place] [address] [place] [address] CLL (chronic lymphocytic leukemia) (HCC) Social History Tobacco Use Types Packs/Day Years Used Date Smoking Tobacco: Former Smokeless Tobacco: Never Alcohol Use Standard Drinks/Week Comments Not Currently 0 (1 standard drink = 0.6 oz pur e alcohol) Sex and Gender Information Value Date Recorded Sex Assigned at Not on file Legal Sex Male 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 difficile Comment:Backloaded December 21, 2010 09/21/2010 09/21/2010 MRSA 08/09/2022 08/09/2022 02/05/2023 3:05 AM LANGUAGE INTERPRETER documented as of this encounter Care Teams Triple Valve Tester Relationship Specialty Start Date End Date Lenin Ventura MD [facility] [address] [address] PCP - General 07/06/16 Lenin Ventura MD [facility] [address] [address] 07/06/16 Burt Dos Santos MD PhD [facility] [address] [address] Medical Oncologist/Sprue Cutting Press Operator Medical Oncology 06/16/19 documented as of this encounter
--- OUTSIDE RECORDS SUMMARY | 2024-02-22 08:28 | XMS_ITS | Encounter Summary ---
Author Organization [facility] Address [address] [place] [address] Phone Care Team Providers Care Route Delivery Service Driver Name Role Phone Lenin Ventura MD Primary Care Provider [phone] Lenin Ventura MD Unavailable [phone] Burt Dos Santos MD PhD Unavailable [phone] Reason for Referral * MRI/CAT/PET Scan (Routine) - Closed Specialty Diagnoses / Procedures Referred By Trent t Referred To Contact Radiology Diagnoses Hypogammaglobulinemia (HCC) CLL (chronic lymphocytic leukemia) (HCC) Procedures CT Chest Abdomen Pelvis W Contrast CT Neck Chest Abdomen Pelvis W Contrast Burt Dos Santos MD PhD [address] DIV IM BONE MARROW TRANSPLANT, [address] [place] [address] Phone: tel: fax: [facility] [address] [place] [address] Referral ID Status Reason Start Date Expiration Date Visits Re quested Visits Authorized [id number] Closed 03/14/2023 04/12/2024 1 1 S WASHER Reason for Visit * Oncology (Routine) - Authorized Specialty Diagnoses / Procedures Referred By Trent t Referred To Contact Medical Oncology / Oncology Diagnoses Appt Comment: LAB Procedures RETURN Lenin Ventura MD [address] [place] [address] Phone: tel: fax: Burt Dos Santos MD PhD [address] IM BONE MARROW TRANSPLANT, 5TH, [address] [place] [address] Phone: tel: fax: Referral ID Status Reason Start Date Expiration Date V isits Requested Visits Authorized [id number] Authorized 08/02/2017 03/12/2024 99 99 Encounter Details Date Type Department Care Team (Late st Contact Info) Description 03/14/2023 10:00 AM PARTS WASHER Office Visit [facility] [address] [facility] 7th Floor, [place] [address] Burt Dos Santos MD PhD [address] IM BONE MARROW TRANSPLANT, [address] [place] [address] CLL (chronic lymphocytic leukemia) (HCC) (Primary Dx); Hypogammaglobulinemia (HCC) Social History Tobacco Use Types Packs/Day Years Used Date Smoking Tobacco: Former Smokeless Tobacco: Never Alcohol Use Standard Drinks/Week Comments Not Currently 0 (1 standard drink = 0.6 oz pur e alcohol) Sex and Gender Information Value Date Recorded Sex Assigned at Not on file Legal Sex Male 9:45 AM PARTS WASHER Gender Identity Not on file Sexual Orientation Not on file documented as of this encounter Last Filed Vital Signs Vital Sign Reading Time Taken Comments Blood Pressure 152/77 03/14/2023 9:48 AM PARTS WASHER Pulse 96 03/14/2023 9:48 AM PARTS WASHER Temperature 36.4 ??C (97.5 ??F) 03/14/2023 9:44 AM CS T Respiratory Rate 18 03/14/2023 9:44 AM PARTS WASHER Oxygen Saturation 95% 03/14/2023 9:48 AM PARTS WASHER Inhaled Oxygen Concentration - - Weight 123.3 kg (271 lb 12.8 oz) 03/14/2023 9:44 AM PARTS WASHER Height 192.4 cm (6' 3.75 ) 03/14/2023 9:44 AM CS T Body Mass Index 33.31 03/14/2023 9:44 AM PARTS WASHER documented in this encounter Progress Notes * Burt Dos Santos MD PhD - 03/14/2023 10:00 AM CST BMT Progress Note Oncology History CLL (chronic lymphocytic leukemia) (HCC) 07/03/2005 Initial Diagnosis Lymphoma, small lymphocytic; Initial [...] then q2mo x 4; on clinical trial [facility] [id number] --> stable disease on CT; marrow 30-40% [...] doing well. Outpatient Encounter Medications as of 03/14/2023: acalabrutinib maleate (Calquence, acalabrutinib mal,) 100 mg tablet, Take 1 tablet (100 mg total) by mouth 2 (two) times a day Swallow whole with water and with or without food, Disp: 60 tablet, Rfl:0 acyclovir (ZOVIRAX) 200 mg capsule, TAKE 2 [...] or without food, Disp: 60 tablet, Rfl: 2 cholecalciferol (cholecalciferol) 1000 unit tablet, Take 1 [...] mouth daily, Disp: 30 each, Rfl: 0 Objective Vitals: BP: 152/77 Temp: 36.4 ??C (97.5 ??F) Temp src: Transdermal Pulse: 96 Resp: 18 SpO2: 95 % Height: 192.4 cm (6' 3.75 ) Weight: 123.3 kg (271 lb 12.8 oz) Physical exam: ECOG PS 0 General: [...] CBC: Lab Results Component Value Date/Time WBC 13.2 (H) 03/14/2023 09:22 AM WBC 13.7 (H) 04/10/2019 03:03 PM HGB 14.8 03/14/2023 09:22 AM HGB 14.2 04/10/2019 03:03 PM HCT 44.1 03/14/2023 09:22 AM HCT 41.2 04/10/2019 03:03 PM LABPLAT 203 03/14/2023 09:22 AM LABPLAT 158 04/10/2019 03:03 PM NEUTROABS 7.2 (H) 03/14/2023 09:22 AM NEUTROABS 4,590 04/10/2019 03:03 PM CMP: Lab Results Component Value Date/Time SODIUM 136 03/14/2023 09:22 AM POTASSIUM 4.2 03/14/2023 09:22 AM CO2 26 03/14/2023 09:22 AM BUNSER 22 03/14/2023 09:22 AM GLUCOSE 184 03/14/2023 09:22 AM CREATININE 0.88 03/14/2023 09:22 AM CALCIUM 9.2 03/14/2023 09:22 AM CHLORIDE 101 03/14/2023 09:22 AM ALBUMIN 4.2 03/14/2023 09:22 AM AST 14 03/14/2023 09:22 AM ALT 17 03/14/2023 09:22 AM ALKPHOS 72 03/14/2023 09:22 AM BILITOT 0.8 03/14/2023 09:22 AM PROT 6.5 03/14/2023 09:22 AM ANIONGAP 9 03/14/2023 09:22 AM LDH: Lab Results Component Value Date/Time LDH 174 03/14/2023 09:22 AM Radiology: No imaging today. Assessment and Plan: [...] any questions or concerns in the interim. S WASHER documented in this encounter Nursing Notes * Jacquelyn Huffman, RN - 03/14/2023 10:00 AM CST ROV with Dr. Dos Santos for CLL, on acalabrutinib 100 mg BID. Pt has had recurrent sinus infections and bronchitis, IgG low at 313. Pt has had IVIG in the past, but last July of 2022. Will reinitiate IVIG, with plan to start next week if authorized. Pt will get monthly, ROV [address] scans will be performed at return. S WASHER S WASHER documented in this encounter Plan of Treatment Not on file documented as of this encounter Results * Lactate dehydrogenase (LD) (06/13/2023 10:20 AM CDT) Pathologist [facility] [place] Lactate dehydrogenase (LDH) 128 100 - 250 Units/L Comment:Testing performed by : [facility], [address] [place] [phone] Blood 06/13/2023 10:2 0 AM CDT 06/13/2023 10:23 AM CDT Burt Dos Santos MD PhD LAB BLOOD ORDERABLES Final Result [facility] Department of Laboratories [place], [place] [id number] * (ABNORMAL) Comprehensive metabolic panel (06/13/2023 10:20 AM CDT) Pathologist [facility] [place] Sodium 137 135 - 145 mmol/L Comment:Testing performed by : [facility], [address] [place] [phone] Potassium, pl 4.5 3.3 - 4.9 mmol/L [facility] Comment:Testing performed by : [facility], [address] [place] [phone] Chloride 104 97 - 110 mmol/L [facility] CASTRO Comment:Testing performed by : [facility], [address] [place] [phone] CO2 25 22 - 32 mmol/L CERNER BJ Comment:Testing performed by : [facility], [address] [place] [phone] Anion gap 8 2 - 15 mmol/L [facility] BJ Comment:Testing performed by : [facility], [address] [place] [phone] BUN 20 6 - 25 mg/dL CERNER BJ Comment:Testing performed by : [facility], [address] [place] [phone] Creatinine 0.74(L) 0.80 - 1.30 mg/dL [facility] BJ Comment:Testing performed by : [facility], [address] [place] [phone] Glucose 118 70 - 199 mg/dL CERNER BJ Comment: [...] was last revised 2022. Testing performed by: [facility], [address] [place] [phone] Calcium 8.8 8.5 - 10.3 mg/dL CERNER BJ Comment:Testing performed by : [facility], [address] [place] [phone] Bilirubin, total 0.7 0.1 - 1.2 mg/dL [facility] BJ Comment:Testing performed by : [facility], [address] [place] [phone] Protein, pl 6.4(L) 6.5 - 8.5 g/dL [facility]ER BJ Comment:Testing performed by : [facility], [address] [place] [phone] Albumin 4.2 3.5 - 5.0 g/dL CERNER BJ Comment:Testing performed by : [facility], [address] [place] [phone] Alk phos 76 40 - 130 Units/L [facility] CASTRO Comment:Testing performed by : [facility], [address] [place] [phone] ALT 19 7 - 55 Units/L [facility] CASTRO Comment:Testing performed by : [facility], [address] [place] [phone] AST 14 10 - 50 Units/L [facility] CASTRO Comment:Testing performed by : [facility], [address] [place] [phone] Blood 06/13/2023 10:2 0 AM CDT 06/13/2023 10:23 AM CDT Burt Dos Santos MD PhD LAB BLOOD ORDERABLES Final Result [facility] Department [place] [address] * (ABNORMAL) CBC with auto differential (06/13/2023 10:20 AM CDT) WBC 8.9 3.8 - 9.8 K/cumm Comment:Testing performed by : [facility], [address] [place] [phone] Hgb 14.2 13.8 - 17.2 g/dL [facility] CASTRO Comment:Testing performed by : [facility], [address] [place] [phone] Hct 41.4 40.7 - 50.3 % [facility] CASTRO Comment:Testing performed by : [facility], [address] [place] [phone] Plt 194 140 - 440 K/cumm [facility] CASTRO Comment:Testing performed by : [place] [phone] MPV 10.1 6.8 - 10.4 fL CERGEOFF BJ Comment:Testing performed by : [address] [phone] RBC 4.28(L) 4.50 - 5.70 M/cumm [facility] CASTRO Comment:Testing performed by : [facility], [address] [place] [phone] MCV 96.8 80.0 - 97.6 fL [facility] Comment:Testing performed by : [facility], [address] [place] [phone] MCH 33.1 26.7 - 33.7 pg [facility] Comment:Testing performed by : [facility], [address] [place] [phone] MCHC 34.2 32.7 - 35.5 g/dL [facility] Comment:Testing performed by : [facility], [address] [place] [phone] RDW CV 13.9 11.8 - 14.6 % [facility] Comment:Testing performed by : [facility], [address] [place] [phone] NRBC abs 0.01 0.00 - 0.01 K/cumm [facility] Comment:Testing performed by : [facility], [address] [place] [phone] Blood 06/13/2023 10:2 0 AM CDT 06/13/2023 10:23 AM CDT Burt Dos Santos MD PhD LAB BLOOD ORDERABLES Final Result [facility] Department [place] [address] * CT Chest Abdomen Pelvis W Contrast [...] and agrees with it. Electronically signed by: Grodon Otero M.D. Narrative 06/13/2023 1:05 PM CDT [...] IMG CT PROCEDURES Fi nal Result * (ABNORMAL) Comprehensive metabolic panel (05/16/2023 12:17 PM CDT) Sodium 138 135 - 145 mmol/L Comment:Testing performed by : [facility], [address] [place] [phone] Potassium, pl 4.6 3.3 - 4.9 mmol/L [facility] Comment:Testing performed by : [facility], [address] [place] [phone] Chloride 103 97 - 110 mmol/L [facility] Comment:Testing performed by : [facility], [address] [place] [phone] CO2 27 22 - 32 mmol/L CERNER BJ Comment:Testing performed by : [facility], [address] [place] [phone] Anion gap 8 2 - 15 mmol/L [facility] BJ Comment:Testing performed by : [facility], [address] [place] [phone] BUN 22 6 - 25 mg/dL [facility] BJ Comment:Testing performed by : [facility], [address] [place] [phone] Creatinine 0.81 0.80 - 1.30 mg/dL CERNER BJ Comment:Testing performed by : [facility], [address] [place] [phone] Glucose 156 70 - 199 mg/dL CERNER BJ Comment: [...] was last revised 2022. Testing performed by: [facility], [address] [place] [phone] Calcium 9.0 8.5 - 10.3 mg/dL CERN[facility] BJ Comment:Testing performed by : [facility], [address] [place] [phone] Bilirubin, total 0.7 0.1 - 1.2 mg/dL C[facility] BJ Comment:Testing performed by : [facility], [address] [place] [phone] Protein, pl 6.4(L) 6.5 - 8.5 g/dL [facility] BJ Comment:Testing performed by : [facility], [address] [place] [phone] Albumin 4.4 3.5 - 5.0 g/dL CERN[facility] BJ Comment:Testing performed by : [facility], [address] [place] [phone] Alk phos 77 40 - 130 Units/L [facility] CASTRO Comment:Testing performed by : [facility], [address] [place] [phone] ALT 19 7 - 55 Units/L [facility] CASTR[facility] Comment:Testing performed by : [facility], [address] [place] [phone] AST 15 10 - 50 Units/L [facility] Comment:Testing performed by : [facility], [address] [place] [phone] Blood 05/16/2023 12:1 7 PM CDT 05/16/2023 12:25 PM CDT Narrative [facility] - 05/16/2023 12:45 PM CDT Monthly starting in 1 week Burt Dos Santos MD PhD LAB BLOOD ORDERABLES Final Result [facility] Department [place] [address] * (ABNORMAL) Comprehensive metabolic panel (04/18/2023 12:16 PM PARTS WASHER) Sodium 137 135 - 145 mmol/L [facility] Comment:Testing performed by : [facility], [address] [place] [phone] Potassium, pl 4.7 3.3 - 4.9 mmol/L [facility] Comment:Testing performed by : [facility], [address] [place] [phone] Chloride 103 97 - 110 mmol/L [facility] Comment:Testing performed by : [facility], [address] [place] [phone] CO2 25 22 - 32 mmol/L [facility] CASTR[facility] Comment:Testing performed by : [facility], [address] [place] [phone] Anion gap 9 2 - 15 mmol/L [facility] CASTR[facility] Comment:Testing performed by : [facility], [address] [place] [phone] BUN 20 6 - 25 mg/dL [facility] BJ Comment:Testing performed by : [facility], [address] [place] [phone] Creatinine 0.78(L) 0.80 - 1.30 mg/dL C[facility]ER BJ Comment:Testing performed by : [facility], [address] [place] [phone] Glucose 152 70 - 199 mg/dL CERNER BJ Comment: [...] was last revised 2022. Testing performed by: [facility], [address] [place] [phone] Calcium 9.3 8.5 - 10.3 mg/dL CERNER BJ Comment:Testing performed by : [address] [phone] Bilirubin, total 0.6 0.1 - 1.2 mg/dL CERNER BJ Comment:Testing performed by : [facility], [address] [place] [phone] Protein, pl 6.4(L) 6.5 - 8.5 g/dL CERNER BJ Comment:Testing performed by : [facility], [address] [place] [phone] Albumin 4.5 3.5 - 5.0 g/dL CERNER BJ Comment:Testing performed by : [address] [phone] Alk phos 81 40 - 130 Units/L CERNER BJ Comment:Testing performed by : [address] [phone] ALT 23 7 - 55 Units/L CERNER BJ Comment:Testing performed by : [facility], [address] [place] [phone] AST 17 10 - 50 Units/L [facility] Comment:Testing performed by : [facility], [address] [place] [phone] Blood 04/18/2023 12:1 6 PM PARTS WASHER 04/18/2023 12:16 PM PARTS WASHER Narrative [facility] - 04/18/2023 12:38 PM PARTS WASHER Monthly starting in 1 week Burt Dos Santos MD PhD LAB BLOOD ORDERABLES Final Result [facility] Department [place] [address] * (ABNORMAL) Comprehensive metabolic panel (03/21/2023 12:28 PM PARTS WASHER) Sodium 138 135 - 145 mmol/L [facility] Comment:Testing performed by : [facility], [address] [place] [phone] Potassium, pl 4.6 3.3 - 4.9 mmol/L [facility] CASTRO Comment:Testing performed by : [facility], [address] [place] [phone] Chloride 103 97 - 110 mmol/L [facility] CASTRO Comment:Testing performed by : [facility], [address] [place] [phone] CO2 28 22 - 32 mmol/L CERGEOFF BJ Comment:Testing performed by : [facility], [address] [place] [phone] Anion gap 7 2 - 15 mmol/L [facility] BJ Comment:Testing performed by : [facility], [address] [place] [phone] BUN 20 6 - 25 mg/dL [facility] BJ Comment:Testing performed by : [facility], [address] [place] [phone] Creatinine 0.78(L) 0.80 - 1.30 mg/dL [facility] BJ Comment:Testing performed by : [facility], [address] [place] [phone] Glucose 141 70 - 199 mg/dL VANESSA BJ Comment: Interpretive Data Fasting glucose >/= [...] was last revised 2022. Testing performed by: [facility], [address] [place] [phone] Calcium 9.3 8.5 - 10.3 mg/dL [facility] Comment:Testing performed by : [address] [phone] Bilirubin, total 0.7 0.1 - 1.2 mg/dL CERNER BJ Comment:Testing performed by : [address] [phone] Protein, pl 5.8(L) 6.5 - 8.5 g/dL CERNER BJ Comment:Testing performed by : [address] [phone] Albumin 4.1 3.5 - 5.0 g/dL CERNER BJ Comment:Testing performed by : [address] [phone] Alk phos 86 40 - 130 Units/L CERGEOFF BJ Comment:Testing performed by : [address] [phone] ALT 19 7 - 55 Units/L CERNER BJ Comment:Testing performed by : [address] [phone] AST 15 10 - 50 Units/L CERNER BJ Comment:Testing performed by : [address] [phone] Blood 03/21/2023 12:2 8 PM PARTS WASHER 03/21/2023 12:30 PM PARTS WASHER Narrative [facility] - 03/21/2023 12:49 PM PARTS WASHER Monthly starting in 1 week us Burt Dos Santos MD PhD LAB BLOOD ORDERABLES Final Result [facility] Department [place] [address] * (ABNORMAL) IgG (03/14/2023 9:22 AM PARTS WASHER) Immunoglobulin G 313.0(L) 700.0 - 1,600.0 mg/dL [facility] Blood 03/14/2023 9:22 AM PARTS WASHER 03/14/2023 9:42 AM PARTS WASHER Burt Dos Santos MD PhD LAB BLOOD ORDERABLES Final Result Performing Organization Address City/[facility] Co de Phone Number [facility] [place] [address] documented in this encounter Visit Diagnoses Diagnosis CLL (chronic lymphocytic leukemia) (HCC)- Primary Chronic lymphoid leukemia, without mention of having achieved remission Hypogammaglobulinemia (HCC) Unspecified hypogammaglobulinemia Hypogammaglobulinemia (HCC) Unspecified hypogammaglobulinemia CLL (chronic lymphocytic leukemia) (HCC) Chronic lymphoid leukemia, without mention of having achieved remission Hypogammaglobulinemia (HCC) Unspecified hypogammaglobulinemia CLL (chronic lymphocytic leukemia) (HCC) Chronic lymphoid leukemia, without mention of having achieved remission Hypogammaglobulinemia (HCC) Unspecified hypogammaglobulinemia CLL (chronic lymphocytic leukemia) (HCC) Chronic lymphoid leukemia, without mention of having achieved remission Hypogammaglobulinemia (HCC) Unspecified hypogammaglobulinemia CLL (chronic lymphocytic leukemia) (HCC) Chronic lymphoid leukemia, without mention of having achieved remission Acute sinusitis, recurrence not specified, unspecified location documented in this encounter Orders Appointment Requests Count Last Ordered Date Fi rst Ordered Date [facility] CLINIC APPOINTMENT REQUEST 2 024 03/14/2023 [facility] INFUSION APPT REQUEST 4 06/13/2023 03/21/2023 [facility] LAB APPOINTMENT 4 06/13/202303/21 documented in this encounter Additional Health Concerns Infection Onset Date Last Indicated Resolved Time C. difficile Comment:Backloaded December 21, 2010 09/21/2010 09/21/2010 documented as of this encounter Care Teams Route Delivery Service Driver Relationship Specialty Start Date End Date Lenin Ventura MD [address] [address] PCP - General 07/06/16 Lenin Ventura MD [address] [address] 07/06/16 Burt Dos Santos MD PhD [address] [address] Medical Oncologist/Channel Director Medical Oncology 06/16/19 documented as of this encounter
--- OUTSIDE RECORDS SUMMARY | 2024-02-22 08:28 | XMS_ITS | Encounter Summary ---
Author Organization [facility] [employer] [facility] Address [address] [place] [address] Phone Care Team Providers Care J2Ee Software Engineer Name Role Phone Lenin Ventura MD Primary Care Provider [phone] Lenin Ventura MD Unavailable [phone] Burt Dos Santos MD PhD Unavailable [phone] Reason for Visit * Oncology (Routine) - Authorized Specialty Diagnoses / Procedures Referred By Contac t Referred To Contact Medical Oncology / Oncology Diagnoses Appt Comment: LAB Procedures RETURN Lenin Ventura MD [address] [facility] [address] [place] [address] Phone: tel: fax: Burt Dos Santos MD PhD [address] [facility] [place] [address] DIV IM BONE MARROW TRANSPLANT, , [address] [place] [address] Phone: tel: fax: Referral ID Status Reason Start Date Expiration Date V isits Requested Visits Authorized [id number] Authorized 08/02/2017 03/12/2024 99 99 Encounter Details Date Type Department Care Team (Late st Contact Info) Description 12/05/2023 10:30 AM CDT Office Visit [facility] [address] [place] [address] Burt Dos Santos MD PhD [address] DIV IM BONE MARROW TRANSPLANT, [address] [place] [address] CLL (chronic lymphocytic leukemia) (HCC) (Primary Dx); Hypogammaglobulinemia (HCC) Social History Tobacco Use Types Packs/Day Years Used Date Smoking Tobacco: Former Smokeless Tobacco: Never Alcohol Use Standard Drinks/Week Comments Not Currently 0 (1 standard drink = 0.6 oz pur e alcohol) Sex and Gender Information Value Date Recorded Sex Assigned at Not on file Legal Sex Male 9:45 AM SECURITIES RESEARCH ANALYST Gender Identity Not on file Sexual Orientation Not on file documented as of this encounter Last Filed Vital Signs Vital Sign Reading Time Taken Comments Blood Pressure 130/76 12/05/2023 10:34 AM CDT Pulse 86 12/05/2023 10:34 AM CDT Temperature 36.9 ??C (98.4 ??F) 12/05/2023 1 0:34 AM CDT Respiratory Rate 18 12/05/2023 10:3 4 AM CDT Oxygen Saturation 97% 12/05/2023 10: 34 AM CDT Inhaled Oxygen Concentration - - Weight 118.9 kg (262 lb 3.2 oz) 024 10:34 AM CDT Height - - Body Mass Index 31.92 08/28/2023 2:24 PM CDT documented in this encounter Progress Notes * GeneseeMagali NP - 12/05/2023 10:30 AM CDT BMT Progress Note Oncology History CLL (chronic lymphocytic leukemia) ([facility]) 07/03/2005 Initial Diagnosis Lymphoma, small lymphocytic; Initial [...] then q2mo x 4; on clinical trial [facility] [id number] --> stable disease on CT; marrow 30-40% [...] Abdullahi returns for scheduled follow up. He has been suffering from an upper respiratory infection for the last month. He has had several rounds of antibiotics. Still has congestion and cough.. He has completed 6 cycles of IVIG, last dose 08/08/23.. Otherwise, doing well. Outpatient Encounter Medications as of 12/05/2023: amoxicillin-clavulanate (AUGMENTIN) 875-125 mg per tablet, Take 1 tablet by mouth every 12 (twelve)hours, Disp: , Rfl: levoFLOXacin (LEVAQUIN) 500 mg tablet, Take 1 tablet (500 mg total) by mouth daily, Disp: , Rfl: acyclovir (ZOVIRAX) 200 mg capsule, TAKE 2 CAPSULES(400 MG) BY MOUTH TWICE DAILY, Disp: 360 capsule, Rfl: 3 ALPRAZolam (XANAX) 0.25 mg tablet, Take 0.5-1 tablets by mouth 3 (three) times a day as needed for anxiety, Disp: , Rfl: budesonide (PULMICORT) 0.5 mg/2 mL nebulizer solution, Mix 1 capsule/ampule in 250 mL of saline irrigations (Algolytics Sinus Rinse Bottle) and irrigate each nostril with half of the bottle twice daily., Disp: 120 mL, Rfl: 6 Calquence, acalabrutinib mal, 100 mg tablet, Take [...] 30 each, Rfl: 0 Objective Vitals: BP: 130/76 Temp: 36.9 ??C (98.4 ??F) Temp src: Oral Pulse: 86 Resp: 18 SpO2: 97 % Weight: 118.9 kg (262 lb 3.2 oz) Physical exam: ECOG PS 0 General: [...] CBC: Lab Results Component Value Date/Time WBC 11.7 (H) 12/05/2023 10:33 AM WBC 13.7 (H) 04/10/2019 03:03 PM HGB 14.6 12/05/2023 10:33 AM HGB 14.2 04/10/2019 03:03 PM HCT 44.0 12/05/2023 10:33 AM HCT 41.2 04/10/2019 03:03 PM LABPLAT 257 12/05/2023 10:33 AM LABPLAT 158 04/10/2019 03:03 PM NEUTROABS 5.4 12/05/2023 10:33 AM NEUTROABS 4,590 04/10/2019 03:03 PM CMP: Lab Results Component Value Date/Time SODIUM 139 12/05/2023 10:24 AM POTASSIUM 4.8 12/05/2023 10:24 AM CO2 28 12/05/2023 10:24 AM BUNSER 20 12/05/2023 10:24 AM GLUCOSE 110 12/05/2023 10:24 AM CREATININE 0.86 12/05/2023 10:24 AM CALCIUM 9.5 12/05/2023 10:24 AM CHLORIDE 104 12/05/2023 10:24 AM ALBUMIN 4.1 12/05/2023 10:24 AM AST 16 12/05/2023 10:24 AM ALT 19 12/05/2023 10:24 AM ALKPHOS 86 12/05/2023 10:24 AM BILITOT 0.5 12/05/2023 10:24 AM PROT 6.5 12/05/2023 10:24 AM ANIONGAP 7 12/05/2023 10:24 AM LDH: Lab Results Component Value Date/Time LDH 153 12/05/2023 10:24 AM Radiology: No imaging today. Assessment and Plan: Mr. Abdullahi is a very pleasant 73-year-old gentleman with SLL/CLL who was initially treated [...] 6 doses of IVIG, last dose was 08/08/23.. IgG 411 today. We will restart IVIG in the next couple of weeks. As always, the patient knows to contact our office with any questions or concerns in the interim. documented in this encounter Plan of Treatment Not on file documented as of this encounter Results * (ABNORMAL) IgG (02/20/2024 9:45 AM SECURITIES RESEARCH ANALYST) Immunoglobulin G 479(L) 700 - 1,600 mg/dL Blood 02/20/2024 9:45 AM SECURITIES RESEARCH ANALYST 02/20/2024 10:44 AM SECURITIES RESEARCH ANALYST us Magali Stapleton NP LAB BLOOD ORDERABLES Final Res ult [facility] [place] [address] * (ABNORMAL) Lactate dehydrogenase (LD) (02/20/2024 9:45 AM SECURITIES RESEARCH ANALYST) Pathologist [facility] Lactate dehydrogenase (LDH) 435(H) 100 - 250 Units/L Blood 02/20/2024 9:45 AM SECURITIES RESEARCH ANALYST 02/20/2024 10:01 AM SECURITIES RESEARCH ANALYST us Magali S. [place] SMALL PIECE CUTTER LAB BLOOD ORDERABLES Final Res ult [facility] Department [place] [address] * (ABNORMAL) Comprehensive metabolic panel (02/20/2024 9:45 AM SECURITIES RESEARCH ANALYST) Sodium 141 135 - 145 mmol/L Potassium, pl 4.6 3.3 - 4.9 mmol/L [facility] Chloride 106 97 - 110 mmol/L [facility] CO2 29 22 - 32 mmol/L [facility] Anion gap 6 2 - 15 mmol/L [facility] BUN 17 6 - 25 mg/dL [facility] Creatinine 0.88 0.80 - 1.30 mg/dL [facility] Glucose 138 70 - 199 mg/dL [facility] Comment: Interpretive Data Fasting glucose >/= [...] Calcium 8.9 8.5 - 10.3 mg/dL [facility] Bilirubin, total 0.4 0.1 - 1.2 mg/dL [facility] Protein, pl 5.8(L) 6.5 - 8.5 g/dL [facility] Albumin 3.7 3.5 - 5.0 g/dL [facility] Alk phos 108 40 - 130 Units/L [facility] ALT 203(H) 7 - 55 Units/L [facility] AST 160(H) 10 - 50 Units/L [facility] Comment:Hemolyzed; result ma y be falsely elevated Blood 02/20/2024 9:45 AM SECURITIES RESEARCH ANALYST 02/20/2024 10:01 AM SECURITIES RESEARCH ANALYST Magali Phelan [place] [employer] LAB BLOOD ORDERABLES Final Res ult [facility] Department [place] [address] * (ABNORMAL) CBC with auto differential (02/20/2024 9:45 AM SECURITIES RESEARCH ANALYST) WBC 10.9(H) 3.8 - 9.9 K/cumm Comment:Testing performed by : [facility], [address] [place] [address] Hgb 13.7 13.0 - 17.5 g/dL [facility] Comment:Testing performed by : [facility], [address] [place] [address] Hct 40.6 38.9 - 50.3 % [facility] Comment:Testing performed by : [facility], [address] [place] [address] Plt 140(L) 150 - 400 K/cumm [facility] CASTRO Comment:Testing performed by : [facility], [address] [place] [address] MPV 8.8 6.8 - 10.4 fL [facility] Comment:Testing performed by : [facility], [address] [place] [address] RBC 4.31 4.30 - 5.80 M/cumm [facility] CASTRO Comment:Testing performed by : [facility], [address] [place] [address] MCV 94.2 81.3 - 96.4 fL [facility] BJ Comment:Testing performed by : [facility], [address] [place] [address] MCH 31.8 27.1 - 33.3 pg [facility] CASTRO Comment:Testing performed by : [facility], [address] [place] [address] MCHC 33.8 32.3 - 35.7 g/dL [facility] CASTRO Comment:Testing performed by : [facility], [address] [place] [address] [place] [phone] RDW CV 14.1 11.1 - 14.9 % [facility] Comment:Testing performed by : [facility], [address] [place] [phone] NRBC abs 0.00 0.00 - 0.01 K/cumm [facility] Comment:Testing performed by : [facility], [address] [place] [phone] Blood 02/20/2024 9:45 AM SECURITIES RESEARCH ANALYST 02/20/2024 9:56 AM SECURITIES RESEARCH ANALYST us Magali Stapleton SMALL PIECE CUTTER LAB BLOOD ORDERABLES Edited Re victoria - Final [facility] Department [place] [address] * Comprehensive metabolic panel (12/05/2023 10:24 AM CDT) Sodium 139 135 - 145 mmol/L Potassium, pl 4.8 3.3 - 4.9 mmol/L [facility] Chloride 104 97 - 110 mmol/L [facility] CO2 28 22 - 32 mmol/L [facility] Anion gap 7 2 - 15 mmol/L [facility] BUN 20 6 - 25 mg/dL [facility] Creatinine 0.86 0.80 - 1.30 mg/dL [facility] Glucose 110 70 - 199 mg/dL [facility] Comment: Interpretive Data Fasting glucose >/= [...] 2022. Calcium 9.5 8.5 - 10.3 mg/dL [facility] Bilirubin, total 0.5 0.1 - 1.2 mg/dL [facility] Protein, pl 6.5 6.5 - 8.5 g/dL [facility] Albumin 4.1 3.5 - 5.0 g/dL [facility] Alk phos 86 40 - 130 Units/L [facility] ALT 19 7 - 55 Units/L [facility] AST 16 10 - 50 Units/L [facility] Blood 12/05/2023 10:2 4 AM CDT 12/05/2023 10:52 AM CDT Burt Dos Santos MD PhD LAB BLOOD ORDERABLES Final Result [facility] Department [place] [address] documented in this encounter Visit Diagnoses Diagnosis CLL (chronic lymphocytic leukemia) (HCC)- Primary Chronic lymphoid leukemia, without mention of having achieved remission Hypogammaglobulinemia (HCC) Unspecified hypogammaglobulinemia documented in this encounter Historical Medications * This list may reflect changes made after this encounter. levoFLOXacin (LEVAQUIN) 500 mg tablet Take 1 tablet (500 mg total) by mouth daily 12/02/2023 amoxicillin-clavu lanate (AUGMENTIN) 875-125 mg per tablet Take 1 tablet by mouth every 12 (twelve) hours 11/15/2023 added in this encounter Orders Appointment Requests Count Last Ordered Date Fi rst Ordered Date ONCBCN CLINIC APPOINTMENT REQUEST 2 024 12/05/2023 ONCBCN LAB APPOINTMENT 1 02/20/2024 documented in this encounter Additional Health Concerns Infection Onset Date Last Indicated Resolved Time C. difficile Comment:Backloaded December 21, 2010 09/21/2010 09/21/2010 documented as of this encounter Care Teams J2Ee Software Engineer Relationship Specialty Start Date End Date Lenin Ventura MD [address] [address] PCP - General 07/06/16 Lenin Ventura MD [address] [address] 07/06/16 Burt Dos Santos MD PhD [address] [address] Medical Oncologist/Firepot Operator And Tender Medical Oncology 06/16/19 documented as of this encounter
--- OUTSIDE RECORDS SUMMARY | 2024-02-22 08:28 | XMS_ITS | Encounter Summary ---
Author Organization [facility] Healthcare Address [address] [place] [address] Care Team Providers Care Record Systems Analyst Name Role Phone Lenin Ventura MD Primary Care Provider [phone] Lenin Ventura MD Unavailable [phone] Burt Dos Santos MD PhD Unavailable [phone] Encounter Details Date Type Department Care Team (Latest Contact Info) Description 03/21/2023 1:15 PM BRISTLE MACHINE OPERATOR - 03/21/2023 11:59 PM BRISTLE MACHINE OPERATOR Hospital Encounter [facility] ([facility]) [address] [place] [phone] Hypogammaglobulinemia (HCC); CLL (chronic lymphocytic leukemia) (HCC) [...] on file Legal Sex Male 9:45 AM BRISTLE MACHINE OPERATOR Gender Identity Not on file Sexual [...] 100 mg tabletIndications: CLL (chronic lymphocytic leukemia) ([facility]) 03/14/2020 tamsulosin (FLOMAX) 0.4 mg extended release capsuleIndications :CLL (chronic lymphocytic leukemia) ([facility]) TAKE 1 CAPSULE BY MOUTH EVERY DAY AT BEDTIME 08/10/2022 traZODone (DESYREL) 50 mg tabletIndications: CLL (chronic lymphocytic leukemia) ([facility]) Take 1 tablet (50 mg total) by mouth nightly 12/20/2020 triamcinolone (KENALOG) 0.5 % cream APPLY TOPIALLY TO RASH TWICE DAILY NEEDED FOR UP TO 2 WEEKS AT A TIME 06/02/2022 zinc 50 mg tabletIndications: Zinc deficiency Take 50 mg by mouth daily 30 each 06/25/2019 acyclovir (ZOVIRAX) 200 mg capsuleIndications :CLL (chronic lymphocytic leukemia) ([facility]) TAKE 2 CAPSULES(400 MG) BY MOUTH TWICE DAILY 360 capsule 3 01/23/2023 4 Calquence, acalabrutinib mal, 100 mg tabletIndications: CLL (chronic lymphocytic leukemia) ([facility]) Take 1 tablet (100 mg total) by [...] Priority Date/Time Associated Diagnosis Comments EGFR Routine 03/21/2023 12:28 PM BRISTLE MACHINE OPERATOR Hypogammaglobulinem ia (HCC) CLL (chronic lymphocytic leukemia) (HCC) DIFFERENTIAL AUTO Routine 03/21/2023 12: 28 PM BRISTLE MACHINE OPERATOR CLL (chronic lymphocytic leukemia) (HCC) CBC WITH AUTO DIFFERENTIAL Routine 03/21/2023 12:28 PM BRISTLE MACHINE OPERATOR CLL (chronic lymphocytic leukemia) (HCC) LACTATE DEHYDROGENASE Routine 03/21/2023 12:28 PM BRISTLE MACHINE OPERATOR CLL (chronic lymphocytic leukemia) (HCC) COMPREHENSIVE METABOLIC PANEL Routine 03/21/2023 12:28 PM BRISTLE MACHINE OPERATOR Hypogammaglobulinem ia (HCC) CLL (chronic lymphocytic leukemia) (HCC) documented in this encounter Results * eGFR (03/21/2023 12:28 PM BRISTLE MACHINE OPERATOR) eGFR >90 >=60 mL/min/1. 73 m2 [facility] CASTRO Comment: Interpretive Data Reference Interval Normal ?>/= [...] was last reviewed 2021. Testing performed by: [facility], [address] [place] [phone] Blood 03/21/2023 12:2 8 PM BRISTLE MACHINE OPERATOR 03/21/2023 12:30 PM BRISTLE MACHINE OPERATOR Burt Dos Santos MD PhD LAB BLOOD ORDERABLES Final Result [facility] [place] [address] * (ABNORMAL) Differential, auto (03/21/2023 12:28 PM BRISTLE MACHINE OPERATOR) Neutrophil abs 4.8 1.5 - 6.6 K/cumm [facility] BJ Comment:Testing performed by : [facility], [address] [place] [phone] Lymphocyte abs 6.3(H) 1.2 - 3.3 K/cumm [facility] BJ Comment:Testing performed by : [facility], [address] [place] [phone] Monocyte abs 0.7 0.2 - 1.2 K/cumm [facility] BJ Comment:Testing performed by : [facility], [address] [place] [phone] Eosinophil abs 0.1 0.0 - 0.5 K/cumm [facility] BJ Comment:Testing performed by : [facility], [address] [place] [phone] Basophil abs 0.1 0.0 - 0.2 K/cumm [facility] BJ Comment:Testing performed by : [facility], [address] [place] [phone] Neutrophil pct 40.1 % [facility] BJ Comment: Interpretive Data Percent cell count reference ranges are not reported, since discordance with absolute values may lead to misinterpretation of CBC data. Current Interpretive Data was last revised on 2017. Testing performed by: [facility], [address] [place] [phone] Lymphocyte pct 52.5 % [facility] Comment: Interpretive Data Percent cell count reference ranges are not reported, since discordance with absolute values may lead to misinterpretation of CBC data. Current Interpretive Data was last revised on 2017. Testing performed by: [facility], [address] [place] [phone] Monocyte pct 5.6 % [facility] CASTRO Comment:Testing performed by : [facility], [address] [place] [phone] Eosinophil pct 1.2 % [facility] Comment:Testing performed by : [facility], [address] [place] [phone] Basophil pct 0.6 % [facility] Comment:Testing performed by : [facility], [address] [place] [phone] Blood 03/21/2023 12:2 8 PM BRISTLE MACHINE OPERATOR 03/21/2023 12:30 PM BRISTLE MACHINE OPERATOR Magali SJulisa [place] EQUAL OPPORTUNITY OFFICER LAB BLOOD ORDERABLES Final Res ult Performing Organization Address City/[facility]/ZIP Co de Phone Number [facility] Department [place] [employer] [place] [address] * Lactate dehydrogenase (LD) (03/21/2023 12:28 PM BRISTLE MACHINE OPERATOR) Lactate dehydrogenase (LDH) 156 100 - 250 Units/L [facility] Comment:Testing performed by : [facility], [address] [place] [phone] Blood 03/21/2023 12:2 8 PM BRISTLE MACHINE OPERATOR 03/21/2023 12:30 PM BRISTLE MACHINE OPERATOR Magali S. [place] EQUAL OPPORTUNITY OFFICER LAB BLOOD ORDERABLES Final Res ult Performing Organization Address City/[facility]/ZIP Co de Phone Number [facility] [place] [address] * (ABNORMAL) CBC with auto differential (03/21/2023 12:28 PM BRISTLE MACHINE OPERATOR) WBC 12.0(H) 3.8 - 9.8 K/cumm [facility]ER BJ Comment:Testing performed by : [facility], [address] [place], [place] [phone] Hgb 14.6 13.8 - 17.2 g/dL [facility] BJ Comment:Testing performed by : [facility], [address] [place], [place] [phone] Hct 43.5 40.7 - 50.3 % [facility] BJ Comment:Testing performed by : [place] [phone] Plt 188 140 - 440 K/cumm [facility] BJ Comment:Testing performed by : [place] [phone] MPV 10.3 6.8 - 10.4 fL [facility] BJ Comment:Testing performed by : [place] [phone] RBC 4.46(L) 4.50 - 5.70 M/cumm [facility]ER BJ Comment:Testing performed by : [place] [phone] MCV 97.3 80.0 - 97.6 fL [facility] BJ Comment:Testing performed by : [place] [phone] MCH 32.8 26.7 - 33.7 pg [facility] BJ Comment:Testing performed by : [place] [phone] MCHC 33.7 32.7 - 35.5 g/dL [facility] BJ Comment:Testing performed by : [place] [phone] RDW CV 14.4 11.8 - 14.6 % [facility] BJ Comment:Testing performed by : [place] [phone] NRBC abs 0.01 0.00 - 0.01 K/cumm [facility] BJ Comment:Testing performed by : [facility] [address] [phone] Blood 03/21/2023 12:2 8 PM BRISTLE MACHINE OPERATOR 03/21/2023 12:30 PM BRISTLE MACHINE OPERATOR us Magali SJulisa [place] EQUAL OPPORTUNITY OFFICER LAB BLOOD ORDERABLES Final Res ult [facility] One [facility] [place] [address] * (ABNORMAL) Comprehensive metabolic panel (03/21/2023 12:28 PM BRISTLE MACHINE OPERATOR) Sodium 138 135 - 145 mmol/L [facility] CASTRO Comment:Testing performed by : [facility], [address] [place] [phone] Potassium, pl 4.6 3.3 - 4.9 mmol/L [facility] CASTRO Comment:Testing performed by : [address] [phone] Chloride 103 97 - 110 mmol/L [facility] CASTRO Comment:Testing performed by : [address] [phone] CO2 28 22 - 32 mmol/L [facility] CASTRO Comment:Testing performed by : [address] [phone] Anion gap 7 2 - 15 mmol/L [facility]SA CASTRO Comment:Testing performed by : [address] [phone] BUN 20 6 - 25 mg/dL [facility]SA CASTRO Comment:Testing performed by : [address] [phone] Creatinine 0.78(L) 0.80 - 1.30 mg/dL [facility] CASTRO Comment:Testing performed by : [address] [phone] Glucose 141 70 - 199 mg/dL [facility] CASTRO Comment: [...] was last revised 2022. Testing performed by: [facility], [address] [place] [phone] Calcium 9.3 8.5 - 10.3 mg/dL [facility] Comment:Testing performed by : [facility], [address] [place] [phone] Bilirubin, total 0.7 0.1 - 1.2 mg/dL [facility] Comment:Testing performed by : [address] [phone] Protein, pl 5.8(L) 6.5 - 8.5 g/dL [facility] Comment:Testing performed by : [address] [phone] Albumin 4.1 3.5 - 5.0 g/dL [facility] Comment:Testing performed by : [address] [phone] Alk phos 86 40 - 130 Units/L [facility] Comment:Testing performed by : [address] [phone] ALT 19 7 - 55 Units/L [facility] Comment:Testing performed by : [address] [phone] AST 15 10 - 50 Units/L [facility] Comment:Testing performed by : [facility], [address] [place] [phone] Blood 03/21/2023 12:2 8 PM BRISTLE MACHINE OPERATOR 03/21/2023 12:30 PM BRISTLE MACHINE OPERATOR Narrative [facility] - 03/21/2023 12:49 PM BRISTLE MACHINE OPERATOR Monthly starting in 1 week Burt Dos Santos MD PhD LAB BLOOD ORDERABLES Final Result [facility] One [facility] [place] [address] documented in this encounter Visit Diagnoses Diagnosis Hypogammaglobulinemia (HCC) Unspecified hypogammaglobulinemia CLL (chronic lymphocytic leukemia) (HCC) Chronic lymphoid leukemia, without mention of having achieved remission documented in this encounter Additional Health Concerns Infection Onset Date Last Indicated Resolved Time C. difficile Comment:Backloaded December 21, 2010 09/21/2010 09/21/2010 documented as of this encounter Care Teams Record Systems Analyst Relationship Specialty Start Date End Date Lenin Ventura MD [address] [place] [phone] PCP - General 07/06/16 Lenin Ventura MD [address] [address] 07/06/16 Burt Dos Santos MD PhD [address] [address] Medical Oncologist/Technical Account Executive Medical Oncology 06/16/19 documented as of this encounter
--- OUTSIDE RECORDS SUMMARY | 2024-02-22 08:28 | XMS_ITS | Encounter Summary ---
Author Organization [facility] Address [address] [place] [address] Phone Care Team Providers Care Metal Trades Instructor Name Role Phone Lenin Ventura MD Primary Care Provider [phone] Lenin Ventura MD Unavailable [phone] Burt Dos Santos MD PhD Unavailable [phone] Reason for Visit * Reason Onset Date Comments Financial Assistance 03/18/2023 Encounter Details Date Type Department Care Team (Late st Contact Info) Description 03/18/2023 Documentation [facility] Bone Marrow Transplant [address] [facility] Advanced Medicine 7th Floor, [place] [address] Ivana Angel RMA Financial Assistance Social History Tobacco Use Types Packs/Day Years Used Date Smoking Tobacco: Former Smokeless Tobacco: Never Alcohol Use Standard Drinks/Week Comments Not Currently 0 (1 standard drink = 0.6 oz pur e alcohol) Sex and Gender Information Value Date Recorded Sex Assigned at Not on file Legal Sex Male 9:45 AM INDUSTRIAL SWEEPER CLEANER Gender Identity Not on file Sexual Orientation Not on file documented as of this encounter Progress Notes * Ivana Angel RMA - 03/18/2023 9:23 AM CST FINANCIAL ASSISTANCE Co-payment Amount: $3327.33 Co-payment Card Obtained?: NO Co-payment William Obtained?: YES PAP (Front Elevator Operator Free Drug) application Obtained?: NOT AT THIS TIME Foundation/Organization: [employer] Medication(s) applied to: Patrick NEXT STEPS: Sent Pharm the william information to fill Rx. Patient Screening Information: - What's the household size?: - What's the annual household income?: NOTES: 03/18/23- Pt has been Approved for copay assistance through the [employer] for an $8,000 william effective 02/16/23 to 02/16/24. Pt's HW ID# [id number]. Pharm and team have been informed of Approval. Pt is also aware of Approval. Pharm Card ID# [id number] [facility]# [id number] PCN# [id number]# [id number] STRIAL SWEEPER CLEANER documented in this encounter Plan of Treatment Not on file documented as of this encounter Visit Diagnoses Not on filedocumented in this encounter Additional Health Concerns Infection Onset Date Last Indicated Resolved Time C. difficile Comment:Backloaded December 21, 2010 09/21/2010 09/21/2010 documented as of this encounter Care Teams Metal Trades Instructor Relationship Specialty Start Date End Date Lenin Ventura MD [facility] [address] [address] PCP - General 07/06/16 Lenin Ventura MD [facility] [address] [address] 07/06/16 Burt Dos Santos MD PhD [facility] [address] [address] Medical Oncologist/Automotive Detailer Medical Oncology 06/16/19 documented as of this encounter
--- OUTSIDE RECORDS SUMMARY | 2024-02-22 08:28 | XMS_ITS | Encounter Summary ---
Author Organization [facility] Address [address] [place] [address] Phone Care Team Providers Care Refining Still Operator Name Role Phone Lenin Ventura MD Primary Care Provider [phone] Lenin Ventura MD Unavailable [phone] Burt Dos Santos MD PhD Unavailable [phone] Reason for Visit * Oncology (Routine) - Authorized Specialty Diagnoses / Procedures Referred By Contac t Referred To Contact Oncology Diagnoses CLL (chronic lymphocytic leukemia) (HCC) Procedures ONCBCN ARM DRAW APPT ONC LAB ONLY Burt Dos Santos MD PhD Phone: tel: fax: Burt Dos Santos MD PhD Phone: tel: fax: Referral ID Status Reason Start Date Expiration Date Visits Requested Visits Authorized [id number] Authorized Specialty Services Required 07/03/2019 03/12/2024 99 99 Encounter Details Date Type Department Care Team (Late st Contact Info) Description 03/14/2023 9:00 AM GUM ROLLING MACHINE TENDER Lab [facility] Oncology [facility] 7th [place] [address] CLL (chronic lymphocytic leukemia) (HCC) Social History Tobacco Use Types Packs/Day Years Used Date Smoking Tobacco: Former Smokeless Tobacco: Never Alcohol Use Standard Drinks/Week Comments Not Currently 0 (1 standard drink = 0.6 oz pur e alcohol) Sex and Gender Information Value Date Recorded Sex Assigned at Not on file Legal Sex Male 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 difficile Comment:Backloaded December 21, 2010 09/21/2010 09/21/2010 documented as of this encounter Care Teams Refining Still Operator Relationship Specialty Start Date End Date Lenin Ventura MD [address] [address] PCP - General 07/06/16 Lenin Ventura MD [address] [address] 07/06/16 Burt Dos Santos MD PhD [address] [address] Medical Oncologist/Model Photographers' Medical Oncology 06/16/19 documented as of this encounter
--- OUTSIDE RECORDS SUMMARY | 2024-02-22 08:28 | XMS_ITS | Encounter Summary ---
Author Organization [facility] Address [address] [place] [address] Care Team Providers Care Casting Plug Assembler Name Role Phone Lenin Ventura MD Primary Care Provider [phone] Lenin Ventura MD Unavailable [phone] Burt Dos Santos MD PhD Unavailable [phone] Encounter Details Date Type Department Care Team (Latest Contact Info) Description 11/22/2022 9:32 AM CDT - 11/22/2022 11:59 PM CDT Hospital Encounter [facility] Advanced Medicine [facility] Advanced Medicine ([facility]) [address] [place] [address] CLL (chronic lymphocytic leukemia) (HCC) Discharge Disposition: Discharge to home or self care Social History Tobacco Use Types Packs/Day Years Used Date Smoking Tobacco: Former Smokeless Tobacco: Never Alcohol Use Standard Drinks/Week Comments Not Currently 0 (1 standard drink = 0.6 oz pur e alcohol) Sex and Gender Information Value Date Recorded Sex Assigned at Not on file 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 Gender Identity Not on file Sexual Orientation [...] 100 mg tabletIndications: CLL (chronic lymphocytic leukemia) ([facility]) 03/14/2020 tamsulosin (FLOMAX) 0.4 mg extended release capsuleIndications :CLL (chronic lymphocytic leukemia) ([facility]) TAKE 1 CAPSULE BY MOUTH EVERY DAY AT BEDTIME 08/10/2022 traZODone (DESYREL) 50 mg tabletIndications: CLL (chronic lymphocytic leukemia) ([facility]) Take 1 tablet (50 mg total) by mouth nightly 12/20/2020 triamcinolone (KENALOG) 0.5 % cream APPLY TOPIALLY TO RASH TWICE DAILY NEEDED FOR UP TO 2 WEEKS AT A TIME 06/02/2022 zinc 50 mg tabletIndications: Zinc deficiency Take 50 mg by mouth daily 30 each 06/25/2019 acyclovir (ZOVIRAX) 200 mg capsuleIndications :Prophylaxis, Medical Take 2 capsules (400 mg total) by mouth 2 (two) times a day 360 capsule 3 09/01/2021 3 Calquence, acalabrutinib mal, 100 mg tabletIndications: CLL (chronic lymphocytic leukemia) ([facility]) Take 1 tablet (100 mg total) by mouth 2 (two) times a day Swallow whole with water and with or without food 60 tablet 2 10/05/2022 3 documented as of this encounter Discharge Disposition Disposition Code Departure Means Destination Discharge to home or self care documented in this encounter Plan of Treatment Not on file documented as of this encounter Procedures Procedure Name Priority Date/Time Associated Diagnosis Comments EGFR STAT 11/22/2022 9:37 AM CDT CLL (chronic lymphocytic leukemia) (HCC) DIFFERENTIAL AUTO STAT 11/22/2022 9:3 7 AM CDT CLL (chronic lymphocytic leukemia) (HCC) CBC WITH AUTO DIFFERENTIAL STAT 11/22/2022 9:37 AM CDT CLL (chronic lymphocytic leukemia) (HCC) LACTATE DEHYDROGENASE STAT 11/22/2022 9:37 AM CDT CLL (chronic lymphocytic leukemia) (HCC) IGG STAT 11/22/2022 9:37 AM CDT CLL (chronic lymphocytic leukemia) (HCC) COMPREHENSIVE METABOLIC PANEL STAT 11/22/2022 9:37 AM CDT CLL (chronic lymphocytic leukemia) (HCC) documented in this encounter Results * eGFR (11/22/2022 9:37 AM CDT) eGFR >90 90 - 130 mL/min/1. 73 m2 VANESSA BELLA Comment: Interpretive Data Reference Interval Normal ?>/= [...] was last reviewed 2021. Testing performed by: [facility], [address] [place] [phone] Blood 11/22/2022 9:37 AM CDT 11/22/2022 9:40 AM CDT Burt Dos Santos MD PhD LAB BLOOD ORDERABLES Final Result VANESSA CASTRO [facility] [place] [address] * (ABNORMAL) Differential, auto (11/22/2022 9:37 AM CDT) Neutrophil abs 4.1 1.8 - 6.6 K/cumm VANESSA [facility] Comment:Testing performed by : [facility], [address] [place] [phone] Lymphocyte abs 4.8(H) 1.2 - 3.3 K/cumm VANESSA BJ Comment:Testing performed by : [facility], [address] [place] [phone] Monocyte abs 0.5 0.2 - 1.2 K/cumm VANESSA BJ Comment:Testing performed by : [facility], [address] [place] [phone] Eosinophil abs 0.1 0.0 - 0.5 K/cumm VANESSA BJ Comment:Testing performed by : [facility], [address] [place] [phone] Basophil abs 0.0 0.0 - 0.2 K/cumm VANESSA BJ Comment:Testing performed by : [facility], [address] [place] [phone] Neutrophil pct 42.7 % VANESSA CASTRO Comment: Interpretive Data Percent cell count reference ranges are not reported, since discordance with absolute values may lead to misinterpretation of CBC data. Current Interpretive Data was last revised on 2017. Testing performed by: [facility], [address] [place] [phone] Lymphocyte pct 50.1 % CERNER BJ Comment: Interpretive Data Percent cell count reference ranges are not reported, since discordance with absolute values may lead to misinterpretation of CBC data. Current Interpretive Data was last revised on 2017. Testing performed by: [facility], [address] [place] [phone] Monocyte pct 5.6 % CERNER BJ Comment:Testing performed by : [facility], [address] [place] [phone] Eosinophil pct 1.2 % CERNER BJ Comment:Testing performed by : [facility], [address] [place] [phone] Basophil pct 0.4 % CERNER BJ Comment:Testing performed by : [facility], [address] [place] [phone] Blood 11/22/2022 9:37 AM CDT 11/22/2022 9:40 AM CDT us Burt Dos Santos MD PhD LAB BLOOD ORDERABLES Final Result Performing Organization Address City/[facility]/ZIP Co de Phone Number [facility] [place] [address] * (ABNORMAL) IgG (11/22/2022 9:37 AM CDT) Immunoglobulin G 365.0(L) 700.0 - 1,600.0 mg/dL [facility] Blood 11/22/2022 9:37 AM CDT 11/22/2022 10:09 AM CDT Burt Dos Santos MD PhD LAB BLOOD ORDERABLES Final Result Performing Organization Address City/[facility]/ZIP Co de Phone Number [facility] Department [place] [address] * (ABNORMAL) CBC with auto differential (11/22/2022 9:37 AM CDT) WBC 9.6 3.8 - 9.8 K/cumm CERNER BJ Comment:Testing performed by : [facility], [address] [place], [place] [phone] Hgb 14.4 13.8 - 17.2 g/dL CERNER BJ Comment:Testing performed by : [facility], [address] [place], [place] [phone] Hct 43.0 40.7 - 50.3 % CERNER BJ Comment:Testing performed by : [place] [phone] Plt 185 140 - 440 K/cumm CERGEOFF BJ Comment:Testing performed by : [place] [phone] MPV 10.9(H) 6.8 - 10.4 fL CERNER BJ Comment:Testing performed by : [place] [phone] RBC 4.45(L) 4.50 - 5.70 M/cumm CERNER BJ Comment:Testing performed by : [place] [phone] MCV 96.4 80.0 - 97.6 fL CERNER BJ Comment:Testing performed by : [place] [phone] MCH 32.3 26.7 - 33.7 pg CERNER BJ Comment:Testing performed by : [place] [phone] MCHC 33.5 32.7 - 35.5 g/dL CERNER BJ Comment:Testing performed by : [place] [phone] RDW CV 14.1 11.8 - 14.6 % CERNER BJ Comment:Testing performed by : [place] [phone] NRBC abs 0.01 0.00 - 0.01 K/cumm CERGEOFF BJ Comment:Testing performed by : [facility], [address] [place] [phone] Blood 11/22/2022 9:37 AM CDT 11/22/2022 9:40 AM CDT Burt Dos Santos MD PhD LAB BLOOD ORDERABLES Final Result [facility]GEOFF [facility] Department [place] [address] * (ABNORMAL) Comprehensive metabolic panel (11/22/2022 9:37 AM CDT) Sodium 139 135 - 145 mmol/L VANESSA CASTRO Comment:Testing performed by : [facility], [address] [place] [phone] Potassium, pl 4.7 3.3 - 4.9 mmol/L VANESSA CASTRO Comment:Testing performed by : [address] [phone] Chloride 104 97 - 110 mmol/L VANESSA CASTRO Comment:Testing performed by : [address] [phone] CO2 29 22 - 32 mmol/L VANESSA CASTRO Comment:Testing performed by : [address] [phone] Anion gap 6 2 - 15 mmol/L VANESSA CASTRO Comment:Testing performed by : [address] [phone] BUN 17 6 - 25 mg/dL VANESSA CASTRO Comment:Testing performed by : [address] [phone] Creatinine 0.79(L) 0.80 - 1.30 mg/dL VANESSA CASTRO Comment:Testing performed by : [address] [phone] Glucose 110 70 - 199 mg/dL VANESSA CASTRO Comment: [...] was last revised 2022. Testing performed by: [facility], [address] [place] [phone] Calcium 9.6 8.5 - 10.3 mg/dL CERNER [facility] Comment:Testing performed by : [facility], [address] [place] [phone] Bilirubin, total 0.7 0.1 - 1.2 mg/dL CERNER [facility] Comment:Testing performed by : [facility], [address] [place] [phone] Protein, pl 6.3(L) 6.5 - 8.5 g/dL CERNER [facility] Comment:Testing performed by : [facility], [address] [place] [phone] Albumin 4.5 3.5 - 5.0 g/dL CERNER [facility] Comment:Testing performed by : [facility], [address] [place] [phone] Alk phos 79 40 - 130 Units/L CERGEOFF [facility] Comment:Testing performed by : [address] [phone] ALT 20 7 - 55 Units/L CERGEOFF [facility] Comment:Testing performed by : [address] [phone] AST 18 10 - 50 Units/L CERGEOFF [facility] Comment:Testing performed by : [facility], [address] [place] [phone] Blood 11/22/2022 9:37 AM CDT 11/22/2022 9:40 AM CDT us Burt Dos Santos MD PhD LAB BLOOD ORDERABLES Final Result [facility] [place] [address] * Lactate dehydrogenase (LD) (11/22/2022 9:37 AM CDT) Lactate dehydrogenase (LDH) 139 100 - 250 Units/L VANESSA BELLA Comment:Testing performed by : [facility], [address] [facility] [phone] Blood 11/22/2022 9:37 AM CDT 11/22/2022 9:40 AM CDT Burt Dos Santos MD PhD LAB BLOOD ORDERABLES Final Result VANESSA CASTRO [facility] Department [place] [address] documented in this encounter Visit Diagnoses Diagnosis CLL (chronic lymphocytic leukemia) (HCC) Chronic lymphoid leukemia, without mention of having achieved remission documented in this encounter Additional Health Concerns Infection Onset Date Last Indicated Resolved Time C. difficile Comment:Backloaded December 21, 2010 09/21/2010 09/21/2010 MRSA 08/09/2022 08/09/2022 02/05/2023 3:05 AM CARPET INSTALLER documented as of this encounter Care Teams Casting Plug Assembler Relationship Specialty Start Date End Date Lenin Ventura MD [address] [address] PCP - General 07/06/16 Lenin Ventura MD [address] [address] 07/06/16 Burt Dos Santos MD PhD [address] [address] Medical Oncologist/Chandelier Maker Medical Oncology 06/16/19 documented as of this encounter
--- OUTSIDE RECORDS SUMMARY | 2024-02-22 08:28 | XMS_ITS | Encounter Summary ---
Author Organization [facility] Address [address] [place] [address] Phone Care Team Providers Care Blow Moulding Machine Operator Name Role Phone Lenin Ventura MD Primary Care Provider [phone] Lenin Ventura MD Unavailable [phone] Burt Dos Santos MD PhD Unavailable [phone] Reason for Visit * Episode Based Medications (Routine) - Authorized Specialty Diagnoses / Procedures Referred By Contguillermo t Referred To Contact Diagnoses Hypogammaglobulinemia (HCC) Procedures MD GAMUNEX-C/GAMMAKED GAMUNEX Burt Dos Santos MD PhD [address] DIV IM BONE MARROW TRANSPLANT[address] [place] [address] Phone: tel: fax: [facility] [place] [address] [facility] 7th [place] [address] Phone: tel: Referral ID Status Reason Start Date Expiration Date V isits Requested Visits Authorized [id number] Authorized 10/19/2019 08/02/2024 1 38 Encounter Details Date Type Department Care Team (Latest Contact Info) Description 07/19/2022 1:00 PM CDT Infusion [facility] Oncology [address] [place] [address] [place] [address] Hypogammaglobulinemia (HCC) (Primary Dx); CLL (chronic lymphocytic leukemia) (HCC) Social History Tobacco Use Types Packs/Day Years Used Date Smoking Tobacco: Former Smokeless Tobacco: Never Alcohol Use Standard Drinks/Week Comments Not Currently 0 (1 standard drink = 0.6 oz pur e alcohol) Sex and Gender Information Value Date Recorded Sex Assigned at Not on file Legal Sex Male 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 Gender Identity Not on file Sexual Orientation Not on file documented as of this encounter Last Filed Vital Signs Vital Sign Reading Time Taken Comments Blood Pressure 122/73 07/19/2022 4:00 PM CDT Pulse 69 07/19/2022 4:00 PM CDT Temperature 36.9 ??C (98.4 ??F) 07/19/2022 3:20 PM CD T Respiratory Rate 18 07/19/2022 4:00 PM CDT Oxygen Saturation 97% 07/19/2022 4:00 PM CDT Inhaled Oxygen Concentration - - Weight 125.1 kg (275 lb 12.8 oz) 07/19/2022 1:20 PM CDT Height - - Body Mass Index 35.58 02/15/2022 9:40 AM 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 documented in this encounter Nursing Notes * Amy Gould, ALICIA - 07/19/2022 1:00 PM CDT Oncology Nursing Note [facility] ON[facility] Jeff Abdullahi is a 71 y.o. male who presents for treatment of IVIG Pre-treatment Nursing Assessment Nursing Assessment Appetite: Fair Diarrhea: No Constipation: No Existing Patients: Any falls since your last visit?: No New Patients: Any falls since your last visit?: N/A Fatigue: Constant Mouth Sores: No Nausea/Vomiting: Yes Neurological symptoms: No Peripheral Neuropathy: Yes Pt states has potential to be ?: N/A Shortness of Breath?: No Skin Condition/Temp: Warm, Dry Oral Mucosa Grade: Normal (0) Abdomen: Bowel sounds present x4, Soft Swelling: No Additional Notes: BP: 122/73 Temp: 36.9 ??C (98.4 ??F) Pulse: 69 Resp: 18 SpO2: 97 % Weight: 125.1 kg (275 lb 12.8 oz) Pain Score: 0 - No pain [...] mg 650 mg, oral, Once, On [place] 07/19/22 at 1400, For 1 dose, Please give 30 minutes prior to IVIG.Indications:Hypogammagl obulinemia (HCC) Given 07/19/2022 1:34 PM CDT 650 mg diphenhydrAMINE (BENADRYL) tab/cap 25 mg 25 mg, oral, Once, On [place] 07/19/22 at 1400, For 1 dose, Give 30 minutes prior to IVIG.Indications:Hypogammagl obulinemia (HCC) Given 07/19/2022 1:34 PM CDT 25 mg immune globulin (GAMUNEX-C,GAMMAKED) 10 % infusion 35 g 35 g (rounded from 32.72 g = 400 mg/kg ? 81.8 kg [place] weight), intravenous, Once, On [place] 07/19/22 at 1400, For 1 dose, GamuNEX C SUBSEQUENT Infusion, 15 Minute Titration Patient Weight: 81.8 kg Initiate Infusion at 0.6 mL/kg/hr.?? If no reaction, may increase rate by 0.6 mL/kg/hr every 15 minutes, to a max of 4.8 mL/kg/hr 0.6 mL/kg/hr =?? Infuse 12 mL over 15 minutes (Rate =?? 49 mL/hr) 1.2 mL/kg/hr =?? Infuse 25 mL over 15 minutes (Rate =?? 98 mL/hr) 1.8 mL/kg/hr =?? Infuse 37 mL over 15 minutes (Rate =?? 147 mL/hr) 2.4 mL/kg/hr =?? Infuse 49 mL over 15 minutes (Rate =?? 196 mL/hr) 3.0 mL/kg/hr =?? Infuse 61 mL over 15 minutes (Rate =?? 245 mL/hr) 3.6 mL/kg/hr =?? Infuse 74 mL over 15 minutes (Rate =?? 294 mL/hr) 4.2 mL/kg/hr =?? Infuse 86 mL over 15 minutes (Rate =?? 344 mL/hr) 4.8 mL/kg/hr ??for remainder (Rate =?? 393 mL/hr) Administer over: 1 mg/kg/min x 30 minutes, then 2 mg/kg/min x 30 minutes, then 4 mg/kg/min x 30 minutes, then 6 mg/kg/min x 30 minutes, then 8 mg/kg/min until infusion complete. If initial titration was well tolerated, subsequent infusions may be titrated every 15 minutes.Indications:Hypogamm aglobulinemia (HCC) Rate/Dose Change 07/19/2022 4:15 PM CDT Rate/Dose Change 07/19/2022 4:00 PM CDT 296 mL/ hr Rate/Dose Change 07/19/2022 3:46 PM CDT 245 mL/ hr documented in this encounter Orders Appointment Requests Count Last Ordered Date Fi rst Ordered Date INFUSION APPT REQUEST 300 MIN 1 07/19/2022 documented in this encounter Additional Health Concerns Infection Onset Date Last Indicated Resolved Time C. difficile Comment:Backloaded December 21, 2010 09/21/2010 09/21/2010 documented as of this encounter Care Teams Blow Moulding Machine Operator Relationship Specialty Start Date End Date Lenin Ventura MD [address] [address] PCP - General 07/06/16 Lenin Ventura MD [address] [address] 07/06/16 Burt Dos Santos MD PhD [address] [address] Medical Oncologist/Sewing Trimmer Medical Oncology 06/16/19 documented as of this encounter
--- OUTSIDE RECORDS SUMMARY | 2024-02-22 08:28 | XMS_ITS | Encounter Summary ---
Author Organization [facility] Address [address] [place] [address] Phone Care Team Providers Care Bobbin Cleaning Machine Operator Name Role Phone Lenin Ventura MD Primary Care Provider [phone] Lenin Ventura MD Unavailable [phone] Burt Dos Santos MD PhD Unavailable [phone] Reason for Visit * Oncology (Routine) - Authorized Specialty Diagnoses / Procedures Referred By Contac t Referred To Contact Oncology Diagnoses CLL (chronic lymphocytic leukemia) (HCC) Procedures ONCBCN ARM DRAW APPT ONC LAB ONLY Burt Dos Santos MD PhD Phone: tel: fax: Burt Dos Santos MD PhD Phone: tel: fax: Referral ID Status Reason Start Date Expiration Date Visits Requested Visits Authorized [id number] Authorized Specialty Services Required 07/03/2019 03/12/2024 99 99 Encounter Details Date Type Department Care Team (Latest Contact Info) Description 07/11/2023 1:30 PM CDT Lab [facility] 7th [place] [address] [place] [address] Hypogammaglobulinemia (HCC); CLL (chronic lymphocytic leukemia) (HCC) Social History Tobacco Use Types Packs/Day Years Used Date Smoking Tobacco: Former Smokeless Tobacco: Never Alcohol Use Standard Drinks/Week Comments Not Currently 0 (1 standard drink = 0.6 oz pur e alcohol) Sex and Gender Information Value Date Recorded Sex Assigned at Not on file 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 difficile Comment:Backloaded December 21, 2010 09/21/2010 09/21/2010 documented as of this encounter Care Teams Bobbin Cleaning Machine Operator Relationship Specialty Start Date End Date Lenin Ventura MD [facility] [address] [address] PCP - General 07/06/16 Lenin Ventura MD [facility] [address] [address] 07/06/16 Burt Dos Santos MD PhD [facility] [address] [address] Medical Oncologist/Biscuit Factory Worker Medical Oncology 06/16/19 documented as of this encounter
--- OUTSIDE RECORDS SUMMARY | 2024-02-22 08:28 | XMS_ITS | Encounter Summary ---
Author Organization [facility] Address [address] [place] [address] Phone Care Team Providers Care Impact Retail Service Merchandiser Name Role Phone Lenin Ventura MD Primary Care Provider [phone] Lenin Ventura MD Unavailable [phone] Burt Dos Santos MD PhD Unavailable [phone] Reason for Visit * Reason Onset Date Comments PRIOR AUTHORIZATION CALQUENCE 02/26/2023 Encounter Details Date Type Department Care Team (Late st Contact Info) Description 02/26/2023 Documentation [facility]row Transplant [address] [facility] 7th Floor, [place] [address] Eulalia Barr RMA PRIOR AUTHORIZATION [place] Social History Tobacco Use Types Packs/Day Years Used Date Smoking Tobacco: Former Smokeless Tobacco: Never Alcohol Use Standard Drinks/Week Comments Not Currently 0 (1 standard drink = 0.6 oz pur e alcohol) Sex and Gender Information Value Date Recorded Sex Assigned at Not on file Legal Sex Male 9:45 AM CAP SEWER Gender Identity Not on file Sexual Orientation Not on file documented as of this encounter Progress Notes * Eulalia Barr RMA - 02/26/2023 9:36 AM CST Images from the original note were not included. Received fax requesting PA for Calquence. Upon doing PAin CMM; medication is available without PA needed. SEWER documented in this encounter Plan of Treatment Not on file documented as of this encounter Visit Diagnoses Not on filedocumented in this encounter Additional Health Concerns Infection Onset Date Last Indicated Resolved Time C. difficile Comment:Backloaded December 21, 2010 09/21/2010 09/21/2010 documented as of this encounter Care Teams Impact Retail Service Merchandiser Relationship Specialty Start Date End Date Lenin Ventura MD [address] [address] PCP - General 07/06/16 Lenin Ventura MD [address] [address] 07/06/16 Burt Dos Santos MD PhD [address] [id number] Medical Oncologist/Supervisor [employer] [facility] 06/16/19 documented as of this encounter
--- OUTSIDE RECORDS SUMMARY | 2024-02-22 08:28 | XMS_ITS | Encounter Summary ---
Author Organization [facility] Address [address] [place] [address] Phone Care Team Providers Care Cafeteria Monitor Name Role Phone Lenin Ventura MD Primary Care Provider [phone] Lenin Ventura MD Unavailable [phone] Burt Dos Santos MD PhD Unavailable [phone] Reason for Visit * Episode Based Medications (Routine) - Authorized Specialty Diagnoses / Procedures Referred By Contguillermo t Referred To Contact Diagnoses Hypogammaglobulinemia (HCC) Procedures HI GAMUNEX-C/GAMMAKED GAMUNEX Burt Dos Santos MD PhD [address] DIV IM BONE MARROW TRANSPLANT[address] [place] [address] Phone: tel: fax: [facility] [place] [id number] [facility] 7th [place] [address] Phone: tel: Referral ID Status Reason Start Date Expiration Date V isits Requested Visits Authorized [id number] Authorized 10/19/2019 08/02/2024 1 38 Encounter Details Date Type Department Care Team (Latest Contact Info) Description 07/11/2023 2:30 PM CDT Infusion [facility] Oncology [address] [place] [address] [place] [address] Hypogammaglobulinemia (HCC) (Primary Dx); CLL (chronic lymphocytic leukemia) (HCC) Social History Tobacco Use Types Packs/Day Years Used Date Smoking Tobacco: Former Smokeless Tobacco: Never Alcohol Use Standard Drinks/Week Comments Not Currently 0 (1 standard drink = 0.6 oz pur e alcohol) Sex and Gender Information Value Date Recorded Sex Assigned at Not on file 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 Gender Identity Not on file Sexual Orientation Not on file documented as of this encounter Last Filed Vital Signs Vital Sign Reading Time Taken Comments Blood Pressure 122/73 07/11/2023 2:37 PM CDT Pulse 78 07/11/2023 2:37 PM CDT Temperature 36.7 ??C (98.1 ??F) 07/11/2023 2:37 PM CD T Respiratory Rate 18 07/11/2023 2:37 PM CDT Oxygen Saturation 95% 07/11/2023 2:37 PM CDT Inhaled Oxygen Concentration - - Weight 124.3 kg (274 lb 0.5 oz) 07/11/2023 2:37 PM CDT Height - - Body Mass Index 33.36 05/29/2023 4:06 PM CDT documented in this encounter Nursing Notes * Ivana Palma RN - 07/11/2023 2:30 PM CDT Oncology Nursing Note [facility] Jeff Abdullahi is a 72 y.o. male who presents for treatment 26 of IVIG. Pre-treatment Nursing Assessment Nursing Assessment LOC: Alert, Awake Constitutional: Fatigue Fatigue: Occassional Any falls since your last visit?: No Orientation: Oriented x4 Behavior: Calm Speech: Clear Language: No aphasia Vision: At baseline Peripheral Neuropathy: Yes (unchanged) Oral Mucosa Grade: Normal (0) Pt states has potential to be ?: N/A Shortness of Breath?: No Appetite: Good Have You Recently Lost Weight Without Trying?: No Have you been eating poorly because of a decreased appetite?: No Malnutrition Screening Tool (MST) Score: 0 Nausea/Vomiting: No Diarrhea: No Constipation: No Skin Condition/Temp: Warm, Dry Swelling: No Additional Notes: BP: 122/73 Temp: 36.7 ??C (98.1 ??F) Temp src: Transdermal Pulse: 78 Resp: 18 SpO2: 95 % Weight: 124.3 kg (274 lb 0.5 oz) Pain Score: 0 - No pain Treatment Patient: met treatment parameters Pre blood return: Brisk Jeffada Abdullahi tolerated treatment well. Patient was frequently observed and monitored throughout the administration of their treatment. Additional Notes: Pt tolerated treatment well, no reaction. No questions or concerns at this time. Discharged in stable condition. Will call team with any issues that arise and will follow up as scheduled. Post blood return: Brisk IV access post infusion: NS Patient Education Treatment Education: Information/teaching given to patient including process and procedure related to today's visit [...] mg 650 mg, oral, Once, On Paloma 07/11/23 at 1515, For 1 dose, Please give 30 minutes prior to IVIG.Indications:Hypogamm aglobulinemia (HCC) Given 07/11/2023 2:44 PM CDT 650 mg diphenhydrAMINE (BENADRYL) tab/cap 25 mg 25 mg, oral, Once, On [place] 07/11/23 at 1515, For 1 dose, Give 30 minutes prior to IVIG.Indications:Hypogamm aglobulinemia (HCC) Given 07/11/2023 2:44 PM CDT 25 mg famotidine (PEPCID) injection 20 mg 20 mg, intravenous, Administer over 2 Minutes, Once, On [place] 07/11/23 at 1515, For 1 doseIndications:Hypogamma globulinemia (HCC) Given 07/11/2023 2:45 PM CDT 20 mg immune globulin (GAMUNEX-C,GAMMAKED) 10 % infusion 35 g 35 g (rounded from 34.48 g = 400 mg/kg ? 86.2 kg Forman weight), intravenous, Once, On [place] 07/11/23 at 1515, For 1 dose, GamuNEX C INITIAL Infusion, [...] mL/kg/hr for remainder (Rate = 414 mL/hr) __ Administer over: 1 mg/kg/min x 30 minutes, then 2 mg/kg/min x 30 minutes, then 4 mg/kg/min x 30 minutes, then 6 mg/kg/min x 30 minutes, then 8 mg/kg/min until infusion complete. If initial titration was well tolerated, subsequent infusions may be titrated every 15 minutes.Indications:Hypog ammaglobulinemia (HCC) Rate/Dose Change 07/11/2023 5:23 PM CDT 259 mL/hr Rate/Dose Change 07/11/2023 4:52 PM CDT 206 mL/ hr Rate/Dose Change 07/11/2023 4:21 PM CDT 156 mL/ hr ondansetron (ZOFRAN) injection 8 mg 8 mg, intravenous, Administer over 2 Minutes, Once, On [place] 07/11/23 at 1515, For 1 doseIndications:Hypogammaglobulinemia (HCC) Given 07/11/2023 2:45 PM CDT 8 mg documented in this encounter Orders Nursing Count Last Ordered Date First Orde red Date ONCBCN NURSING COMMUNICATION [id number] 2 0 07/11/2023 VITAL SIGNS INTRA-INFUSION 1 07/11/2023 Appointment Requests Count Last Ordered Date Fi rst Ordered Date INFUSION APPT REQUEST 180 MIN 1 07/11/2023 documented in this encounter Additional Health Concerns Infection Onset Date Last Indicated Resolved Time C. difficile Comment:Backloaded December 21, 2010 09/21/2010 09/21/2010 documented as of this encounter Care Teams Cafeteria Monitor Relationship Specialty Start Date End Date Lenin Ventura MD [address] [address] PCP - General 07/06/16 Lenin Ventura MD [address] [address] 07/06/16 Burt Dos Santos MD PhD [address] [address] Medical Oncologist/Manager [employer] [facility] 06/16/19 documented as of this encounter
--- OUTSIDE RECORDS SUMMARY | 2024-02-22 08:28 | XMS_ITS | Encounter Summary ---
Author Organization [facility] Address [address] [place] [address] Phone Care Team Providers Care Cyber Security Engineer Name Role Phone Lenin Ventura MD Primary Care Provider [phone] Lenin Ventura MD Unavailable [phone] Burt Dos Santos MD PhD Unavailable [phone] Encounter Details Date Type Department Care Team (Late st Contact Info) Description 02/14/2023 Orders Only [facility] Marrow Transplant [address] 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 Gender Identity Not on file Sexual Orientation Not on file documented as of this encounter Ordered Prescriptions Prescription Sig Dispense Quantity Refills Last Filled Start Date End Date acalabrutinib maleate (Calquence, acalabrutinib mal,) 100 mg tabletIndications:C LL (chronic lymphocytic leukemia) (HCC) Take 1 tablet (100 mg total) by mouth 2 (two) times a day Swallow whole with water and with or without food 60 tablet 02/14/2023 documented in this encounter Plan of Treatment Not on file documented as of this encounter Visit Diagnoses Diagnosis CLL (chronic lymphocytic leukemia) (HCC) Chronic lymphoid leukemia, without mention of having achieved remission documented in this encounter Discontinued Medications Medication Sig Discontinue Reason Start Date End Da kristen Nguyen acalabrutinib mal, 100 mg tabletIndications:CLL (chronic lymphocytic leukemia) (HCC) Take 1 tablet (100 mg total) by mouth 2 (two) times a day Swallow whole with water and with or without food Reorder 01/16/2023 02/14/2023 documented as of this encounter Additional Health Concerns Infection Onset Date Last Indicated Resolved Time C. difficile Comment:Backloaded December 21, 2010 09/21/2010 09/21/2010 documented as of this encounter Care Teams Cyber Security Engineer Relationship Specialty Start Date End Date Lenin Ventura MD [facility] [address] [address] PCP - General 07/06/16 Lenin Ventura MD [facility] [address] [address] 07/06/16 Burt Dos Santos MD PhD [facility] [address] [address] Medical Oncologist/Branch Library Clerk Medical Oncology 06/16/19 documented as of this encounter
--- OUTSIDE RECORDS SUMMARY | 2024-02-22 08:28 | XMS_ITS | Encounter Summary ---
Author Organization [facility] Healthcare Address [address] [place] [address] Care Team Providers Care Flat Optical Element Maker Name Role Phone Lenin Ventura MD Primary Care Provider [phone] Lenin Ventura MD Unavailable [phone] Burt Dos Santos MD PhD Unavailable [phone] Encounter Details Date Type Department Care Team (Latest Contact Info) Description 08/08/2023 1:28 PM CDT - 08/08/2023 11:59 PM CDT Hospital Encounter [facility] Advanced Medicine [facility] Advanced Medicine ([facility]) [address] [place] [phone] Hypogammaglobulinemia (HCC); CLL (chronic lymphocytic leukemia) (HCC) [...] on file 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 120 mL 6 06/18/2023 clindamycin (CLEOCIN T) 1 % lotion Apply [...] 100 mg tabletIndications: CLL (chronic lymphocytic leukemia) ([facility]) 03/14/2020 tamsulosin (FLOMAX) 0.4 mg extended release capsuleIndications :CLL (chronic lymphocytic leukemia) ([facility]) TAKE 1 CAPSULE BY MOUTH EVERY DAY AT BEDTIME 08/10/2022 traZODone (DESYREL) 50 mg tabletIndications: CLL (chronic lymphocytic leukemia) ([facility]) Take 1 tablet (50 mg total) by mouth nightly 12/20/2020 triamcinolone (KENALOG) 0.5 % cream APPLY TOPIALLY TO RASH TWICE DAILY NEEDED FOR UP TO 2 WEEKS AT A TIME 06/02/2022 zinc 50 mg tabletIndications: Zinc deficiency Take 50 mg by mouth daily 30 each 06/25/2019 acyclovir (ZOVIRAX) 200 mg capsuleIndications :CLL (chronic lymphocytic leukemia) ([facility]) TAKE 2 CAPSULES(400 MG) BY MOUTH TWICE DAILY 360 capsule 3 01/23/2023 Calquence, acalabrutinib mal, 100 mg tabletIndications: CLL [...] Priority Date/Time Associated Diagnosis Comments EGFR Routine 08/08/2023 1:41 PM CDT Hypogammaglobulinem ia (HCC) CLL (chronic lymphocytic leukemia) (HCC) DIFFERENTIAL AUTO Routine 08/08/2023 1:4 1 PM CDT Hypogammaglobulinem ia (HCC) CLL (chronic lymphocytic leukemia) (HCC) CBC WITH AUTO DIFFERENTIAL Routine 08/08/2023 1:41 PM CDT Hypogammaglobulinem ia (HCC) CLL (chronic lymphocytic leukemia) (HCC) LACTATE DEHYDROGENASE Routine 08/08/2023 1:41 PM CDT Hypogammaglobulinem ia (HCC) CLL (chronic lymphocytic leukemia) (HCC) COMPREHENSIVE METABOLIC PANEL Routine 08/08/2023 1:41 PM CDT Hypogammaglobulinem ia (HCC) CLL (chronic lymphocytic leukemia) (HCC) documented in this encounter Results * eGFR (08/08/2023 1:41 PM CDT) eGFR >90 >=60 mL/min/1. 73 [...] was last reviewed 2021. Testing performed by: [facility], [address] [place] [phone] Blood 08/08/2023 1:41 PM CDT 08/08/2023 1:42 PM CDT Burt Dos Santos MD PhD LAB BLOOD ORDERABLES Final Result [facility] [place] [address] * (ABNORMAL) Differential, auto (08/08/2023 1:41 PM CDT) Neutrophil abs 3.9 1.5 - 6.6 K/cumm Comment:Testing performed by : [facility], [address] [place] [phone] Lymphocyte abs 5.3(H) 1.2 - 3.3 K/cumm [facility] Comment:Testing performed by : [facility], [address] [place] [phone] Monocyte abs 0.5 0.2 - 1.2 K/cumm [facility] Comment:Testing performed by : [facility], [address] [place] [phone] Eosinophil abs 0.0 0.0 - 0.5 K/cumm [facility] Comment:Testing performed by : [facility], [address] [place] [phone] Basophil abs 0.0 0.0 - 0.2 K/cumm [facility] Comment:Testing performed by : [facility], [address] [place] [phone] Neutrophil pct 39.8 % [facility] Comment: Interpretive Data Percent cell count reference ranges are not reported, since discordance with absolute values may lead to misinterpretation of CBC data. Current Interpretive Data was last revised on 2017. Testing performed by: [facility], [address] [place] [phone] Lymphocyte pct 54.2 % [facility] Comment: Interpretive Data Percent cell count reference ranges are not reported, since discordance with absolute values may lead to misinterpretation of CBC data. Current Interpretive Data was last revised on 2017. Testing performed by: [facility], [address] [place] [phone] Monocyte pct 5.2 % [facility] Comment:Testing performed by : [facility], [address] [place] [phone] Eosinophil pct 0.3 % [facility] Comment:Testing performed by : [facility], [address] [place] [phone] Basophil pct 0.5 % [facility] Comment:Testing performed by : [facility], [address] [place] [phone] Blood 08/08/2023 1:41 PM CDT 08/08/2023 1:42 PM CDT Burt Dos Santos MD PhD LAB BLOOD ORDERABLES Final Result [facility] [place] [address] * Lactate dehydrogenase (LD) (08/08/2023 1:41 PM CDT) Lactate dehydrogenase (LDH) 164 100 - 250 Units/L Comment:Testing performed by : [facility], [address] [place] [phone] Blood 08/08/2023 1:41 PM CDT 08/08/2023 1:42 PM CDT Burt Dos Santos MD PhD LAB BLOOD ORDERABLES Final Result [facility] [place] [address] * (ABNORMAL) Comprehensive metabolic panel (08/08/2023 1:41 PM CDT) Sodium 137 135 - 145 mmol/L Comment:Testing performed by : [facility], [address] [place] [phone] Potassium, pl 4.5 3.3 - 4.9 mmol/L [facility] Comment:Testing performed by : [facility], [address] [place] [phone] Chloride 102 97 - 110 mmol/L [facility] Comment:Testing performed by : [facility], [address] [place] [phone] CO2 26 22 - 32 mmol/L [facility] Comment:Testing performed by : [facility], [address] [place] [phone] Anion gap 9 2 - 15 mmol/L [facility] Comment:Testing performed by : [facility], [address] [place] [phone] BUN 27(H) 6 - 25 mg/dL [facility] Comment:Testing performed by : [address] [phone] Creatinine 0.87 0.80 - 1.30 mg/dL [facility] Comment:Testing performed by : [facility], [address] [place] [phone] Glucose 123 70 - 199 mg/dL [facility] Comment: [...] was last revised 2022. Testing performed by: [facility], [address] [place] [phone] Calcium 10.0 8.5 - 10.3 mg/dL [facility] Comment:Testing performed by : [facility], [address] [place] [phone] Bilirubin, total 0.7 0.1 - 1.2 mg/dL [facility] Comment:Testing performed by : [facility], [address] [place] [phone] Protein, pl 6.9 6.5 - 8.5 g/dL [facility] Comment:Testing performed by : [facility], [address] [place] [phone] Albumin 4.6 3.5 - 5.0 g/dL [facility] Comment:Testing performed by : [facility], [address] [place] [phone] Alk phos 74 40 - 130 Units/L [facility] Comment:Testing performed by : [facility], [address] [place] [phone] ALT 25 7 - 55 Units/L [facility] Comment:Testing performed by : [facility], [address] [place] [phone] AST 20 10 - 50 Units/L [facility] Comment:Testing performed by : [facility], [address] [place] [phone] Blood 08/08/2023 1:41 PM CDT 08/08/2023 1:42 PM CDT us Burt Dos Santos MD PhD LAB BLOOD ORDERABLES Final Result [facility] [place] [address] * CBC with auto differential (08/08/2023 1:41 PM CDT) WBC 9.7 3.8 - 9.8 K/cumm Comment:Testing performed by : [facility], [address] [place], [place] [phone] Hgb 15.0 13.8 - 17.2 g/dL [facility] Comment:Testing performed by : [facility], [address] [place], [place] [phone] Hct 44.8 40.7 - 50.3 % [facility] Comment:Testing performed by : [facility], [address] [place], [place] [phone] Plt 181 140 - 440 K/cumm [facility] Comment:Testing performed by : [facility], [address] [place], [place] [phone] MPV 10.3 6.8 - 10.4 fL [facility] Comment:Testing performed by : [place] [address] RBC 4.63 4.50 - 5.70 M/cumm [facility] Comment:Testing performed by : [facility], [address] [place], [place] [phone] MCV 96.7 80.0 - 97.6 fL [facility] Comment:Testing performed by : [place] [phone] MCH 32.4 26.7 - 33.7 pg [facility] Comment:Testing performed by : [place] [id number] MCHC 33.5 32.7 - 35.5 g/dL [facility] Comment:Testing performed by : [facility], [address] [place], [place] [phone] RDW CV 13.9 11.8 - 14.6 % [facility] Comment:Testing performed by : [place] [id number] NRBC abs 0.01 0.00 - 0.01 K/cumm [facility] Comment:Testing performed by : [place] [id number] Blood 08/08/2023 1:41 PM CDT 08/08/2023 1:42 PM CDT Burt Dos Santos MD PhD LAB BLOOD ORDERABLES Final Result [facility] [place] [address] documented in this encounter Visit Diagnoses Diagnosis Hypogammaglobulinemia (HCC) Unspecified hypogammaglobulinemia CLL (chronic lymphocytic leukemia) (HCC) Chronic lymphoid leukemia, without mention of having achieved remission documented in this encounter Additional Health Concerns Infection Onset Date Last Indicated Resolved Time C. difficile Comment:Backloaded December 21, 2010 09/21/2010 09/21/2010 documented as of this encounter Care Teams Flat Optical Element Maker Relationship Specialty Start Date End Date Lenin Ventura MD [address] [address] PCP - General 07/06/16 Lenin Ventura MD [address] [address] 07/06/16 Burt Dos Santos MD PhD [address] [address] Medical Oncologist/House Sitter Medical Oncology 06/16/19 documented as of this encounter
--- OUTSIDE RECORDS SUMMARY | 2024-02-22 08:28 | XMS_ITS | Encounter Summary ---
Author Organization [facility] Healthcare Address [address] [place] [address] Care Team Providers Care Aircraft Skin Burnisher Name Role Phone Lenin Ventura MD Primary Care Provider [phone] Lenin Ventura MD Unavailable [phone] Burt Dos Santos MD PhD Unavailable [phone] Encounter Details Date Type Department Care Team (Latest Contact Info) Description 04/18/2023 10:39 AM CIGARETTE MACHINE OPERATOR - 04/18/2023 11:59 PM CIGARETTE MACHINE OPERATOR Hospital Encounter [facility] Advanced Medicine [facility] Advanced Medicine ([facility]) [address] [place] [phone] Hypogammaglobulinemia (HCC); CLL (chronic lymphocytic leukemia) (HCC) [...] on file Legal Sex Male 9:45 AM CIGARETTE MACHINE OPERATOR Gender Identity Not on file [...] 100 mg tabletIndications: CLL (chronic lymphocytic leukemia) ([facility]) 03/14/2020 tamsulosin (FLOMAX) 0.4 mg extended release capsuleIndications :CLL (chronic lymphocytic leukemia) ([facility]) TAKE 1 CAPSULE BY MOUTH EVERY DAY AT BEDTIME 08/10/2022 traZODone (DESYREL) 50 mg tabletIndications: CLL (chronic lymphocytic leukemia) ([facility]) Take 1 tablet (50 mg total) by mouth nightly 12/20/2020 triamcinolone (KENALOG) 0.5 % cream APPLY TOPIALLY TO RASH TWICE DAILY NEEDED FOR UP TO 2 WEEKS AT A TIME 06/02/2022 zinc 50 mg tabletIndications: Zinc deficiency Take 50 mg by mouth daily 30 each 06/25/2019 acyclovir (ZOVIRAX) 200 mg capsuleIndications :CLL (chronic lymphocytic leukemia) ([facility]) TAKE 2 CAPSULES(400 MG) BY MOUTH TWICE DAILY 360 capsule 3 01/23/2023 4 Calquence, acalabrutinib mal, 100 mg tabletIndications: CLL (chronic lymphocytic leukemia) ([facility]) Take 1 tablet (100 mg [...] Priority Date/Time Associated Diagnosis Comments EGFR Routine 04/18/2023 12:16 PM CIGARETTE MACHINE OPERATOR Hypogammaglobulinem ia (HCC) CLL (chronic lymphocytic leukemia) (HCC) COMPREHENSIVE METABOLIC PANEL Routine 04/18/2023 12:16 PM CIGARETTE MACHINE OPERATOR Hypogammaglobulinem ia (HCC) CLL (chronic lymphocytic leukemia) (HCC) documented in this encounter Results * eGFR (04/18/2023 12:16 PM CIGARETTE MACHINE OPERATOR) eGFR >90 >=60 mL/min/1. 73 m2 [facility] Comment: Interpretive [...] performed by: [facility], [address] [place] [phone] Blood 04/18/2023 12:1 6 PM CIGARETTE MACHINE OPERATOR 04/18/2023 12:16 PM CIGARETTE MACHINE OPERATOR Burt Dos Santos MD PhD LAB BLOOD ORDERABLES Final Result [facility] Department [place] [address] * (ABNORMAL) Comprehensive metabolic panel (04/18/2023 12:16 PM CIGARETTE MACHINE OPERATOR) Sodium 137 135 - 145 mmol/L [facility] Comment:Testing performed by : [facility], [address] [place] [phone] Potassium, pl 4.7 3.3 - 4.9 mmol/L [facility] Comment:Testing performed by : [facility], [address] [place] [phone] Chloride 103 97 - 110 mmol/L [facility] Comment:Testing performed by : [address] [phone] CO2 25 22 - 32 mmol/L [facility] Comment:Testing performed by : [facility], [address] [place] [phone] Anion gap 9 2 - 15 mmol/L [facility] Comment:Testing performed by : [facility], [address] [place] [phone] BUN 20 6 - 25 mg/dL [facility] Comment:Testing performed by : [address] [phone] Creatinine 0.78(L) 0.80 - 1.30 mg/dL [facility] Comment:Testing performed by : [facility], [address] [place] [phone] Glucose 152 70 - 199 mg/dL [facility] Comment: [...] performed by: [facility], [address] [place] [phone] Calcium 9.3 8.5 - 10.3 mg/dL [facility] Comment:Testing performed by : [facility], [address] [place] [phone] Bilirubin, total 0.6 0.1 - 1.2 mg/dL [facility] Comment:Testing performed by : [facility], [address] [place] [phone] Protein, pl 6.4(L) 6.5 - 8.5 g/dL [facility] Comment:Testing performed by : [facility], [address] [place] [phone] Albumin 4.5 3.5 - 5.0 g/dL [facility] Comment:Testing performed by : [facility], [address] [place] [phone] Alk phos 81 40 - 130 Units/L [facility] Comment:Testing performed by : [facility], [address] [place] [phone] ALT 23 7 - 55 Units/L [facility] Comment:Testing performed by : [facility], [address] [place] [phone] AST 17 10 - 50 Units/L [facility] Comment:Testing performed by : [facility], [address] [place] [phone] Blood 04/18/2023 12:1 6 PM CIGARETTE MACHINE OPERATOR 04/18/2023 12:16 PM CIGARETTE MACHINE OPERATOR Narrative [facility] - 04/18/2023 12:38 PM CIGARETTE MACHINE OPERATOR Monthly starting in 1 week us Burt Dos Santos MD PhD LAB BLOOD ORDERABLES Final Result [facility] [place] [address] documented in this encounter Visit Diagnoses Diagnosis Hypogammaglobulinemia (HCC) Unspecified hypogammaglobulinemia CLL (chronic lymphocytic leukemia) (HCC) Chronic lymphoid leukemia, without mention of having achieved remission documented in this encounter Additional Health Concerns Infection Onset Date Last Indicated Resolved Time C. difficile Comment:Backloaded December 21, 2010 09/21/2010 09/21/2010 documented as of this encounter Care Teams Aircraft Skin Burnisher Relationship Specialty Start Date End Date Lenin Ventura MD [address] [place] [address] PCP - General 07/06/16 Lenin Ventura MD [address] [place] [address] 07/06/16 Burt Dos Santos MD PhD [address] [place] [address] Medical Oncologist/University Tutor Medical Oncology 06/16/19 documented as of this encounter
--- OUTSIDE RECORDS SUMMARY | 2024-02-22 08:28 | XMS_ITS | Encounter Summary ---
Author Organization [facility] Address [address] [place] [address] Phone Care Team Providers Care Speech Lang Path Therapist Name Role Phone Lenin Ventura MD Primary Care Provider [phone] Lenin Ventura MD Unavailable [phone] Burt Dos Santos MD PhD Unavailable [phone] Reason for Visit * Reason Comments Follow-up Encounter Details Date Type Department Care Team (Late st Contact Info) Description 06/18/2023 3:00 PM CDT Office Visit [facility] ENT [address] [facility] [address] [place] [address] Hnas Amaya MD [address] [place] [address] Acute recurrent pansinusitis (Primary Dx) Social History Tobacco Use Types Packs/Day Years Used Date Smoking Tobacco: Former Smokeless Tobacco: Never Alcohol Use Standard Drinks/Week Comments Not Currently 0 (1 standard drink = 0.6 oz pur e alcohol) Sex and Gender Information Value Date Recorded Sex Assigned at Not on file 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 120 mL 6 06/18/2023 documented in this encounter Progress Notes * Hans Amaya MD - 06/18/2023 3:00 PM CDT Images from the original note were not included. HISTORY OF PRESENT ILLNESS Mr. Abdullahi returns to clinic today for evaluation of ongoing, Severe: sinus infections CT sinus 06/13/23 revealed mild hernandez sinusitis Past Medical/Surgical History Past Medical History: Diagnosis Date Anxiety and depression CLL (chronic lymphocytic leukemia) (HCC) Thyroid nodule 06/12/2019 Past Surgical History: Procedure Laterality Date BIOPSY LYMPH NODE SUPERFICIAL N/A 12/07/2014 CERVICAL SPINE SURGERY [address] Shaquille King at [facility] LAPAROSCOPIC CHOLECYSTECTOMY 2005 Dr. Kingsley- [facility] LYMPH NODE BIOPSY 2005 Past Family/Social History Family History Problem Relation Age of Onset Heart disease Father Hypertension Father Diabetes Father Glaucoma Father Atrial fibrillation Father Coronary artery disease Father Macular degeneration Mother Hypertension Mother Anxiety disorder Mother Depression Daughter Depression Son Anxiety disorder Daughter Anxiety disorder Son Colon cancer Other Social History Tobacco Use Smoking status: Former Smokeless tobacco: Never Substance and Sexual Activity Drug use: Never Sexual activity: Not on file Alcohol Use: Not on file Medications/Allergies/Immunizations Current Outpatient Medications Medication Sig Dispense Refill acyclovir (ZOVIRAX) 200 mg capsule TAKE 2 CAPSULES(400 MG) BY MOUTH TWICE DAILY 360 capsule 3 ALPRAZolam (XANAX) 0.25 mg tablet Take 0.5-1 tablets by mouth 3 (three) times a day as needed for anxiety budesonide (PULMICORT) 0.5 mg/2 mL nebulizer solution [...] Administer 2 sprays into each nostril daily magnesium oxide (MAG-OX) 250 mg (150.8 [...] Cell Culture-based MDCK, Preservative Free, Antibiotic Free, [id number]/14/2019 Influenza, Quadrivalent, High Dose, Preservative Free, Intrr 10/29/2019 Influenza, Trivalent, Intramuscular 01/29/2012 Zephyr SARS-CoV-2 Monovalent Vaccination (12+ Yrs) PURPLE 05/05/2020, 05/30/2020 PHYSICAL EXAMINATION: GENERAL: Well-developed, well-nourished. Voice quality is normal. NEURO/PSYCH: Cranial nerves II- XII are grossly normal. Affect is normal. Alert and oriented. Extraocular muscles are intact. HEAD/FACE: Normocephalic; atraumatic. No facial skin lesions. Facial strength is 5/5 and the face is symmetric. NOSE: External nose has no skin lesions. MUSCULOSKELATAL: Ambulates without difficulty. Neck full range of motion. RESPIRATORY: Breathing comfortably without audible wheeze, stertor or stridor. PROCEDURE: RESULTS: ASSESSMENT & PLAN: Problem List Items Addressed This Visit Acute recurrent sinusitis - Primary We discussed options and agreed to try budesonide irrigations to see if that reduces the frequency and severity of the sinus infection. Hans Amaya M.D., M.A., F.A.C.S. Test Borer and Utilization Reviewer Rhinology and Anterior Skull Base Surgery [facility] [address] [place] [phone] - Office - Appointments - Clinical coordinator (Kate Pompa LPN) - Clinical fax - Academic office fax EMAIL: [email or web address] documented in this encounter Plan of Treatment Not on file documented as of this encounter Visit Diagnoses Diagnosis Acute recurrent pansinusitis- Primary documented in this encounter Additional Health Concerns Infection Onset Date Last Indicated Resolved Time C. difficile Comment:Backloaded December 21, 2010 09/21/2010 09/21/2010 documented as of this encounter Care Teams Speech Lang Path Therapist Relationship Specialty Start Date End Date Lenin Ventura MD [address] [address] PCP - General 07/06/16 Lenin Ventura MD [address] [address] 07/06/16 Burt Dos Santos MD PhD [address] [address] Medical Oncologist/Efficiency Expert Medical Oncology 06/16/19 documented as of this encounter
--- OUTSIDE RECORDS SUMMARY | 2024-02-22 08:28 | XMS_ITS | Encounter Summary ---
Author Organization [facility] Address [address] [place] [address] Phone Care Team Providers Care Round Cutter Operator Name Role Phone Lenin Ventura MD Primary Care Provider [phone] Lenin Ventura MD Unavailable [phone] Burt Dos Santos MD PhD Unavailable [phone] Reason for Visit * Oncology (Routine) - Authorized Specialty Diagnoses / Procedures Referred By Contac t Referred To Contact Oncology Diagnoses CLL (chronic lymphocytic leukemia) (HCC) Procedures ONCBCN ARM DRAW APPT ONC LAB ONLY Burt Dos Santos MD PhD Phone: tel: fax: Burt Dos Santos MD PhD Phone: tel: fax: Referral ID Status Reason Start Date Expiration Date Visits Requested Visits Authorized [id number] Authorized Specialty Services Required 07/03/2019 03/12/2024 99 99 Encounter Details Date Type Department Care Team (Late st Contact Info) Description 08/23/2022 9:30 AM CDT Lab [facility] Oncology 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 difficile Comment:Backloaded December 21, 2010 09/21/2010 09/21/2010 MRSA 08/09/2022 08/09/2022 02/05/2023 3:05 AM MOBILE UI DEVELOPER documented as of this encounter Care Teams Round Cutter Operator Relationship Specialty Start Date End Date Lenin Ventura MD [facility] [address] [address] PCP - General 07/06/16 Lenin Ventura MD [facility] [address] [address] 07/06/16 Burt Dos Santos MD PhD [facility] [address] [address] Medical Oncologist/Manager Actuarial Medical Oncology 06/16/19 documented as of this encounter
--- OUTSIDE RECORDS SUMMARY | 2024-02-22 08:28 | XMS_ITS | Encounter Summary ---
Author Organization [facility] Address [address] [place] [address] Phone Care Team Providers Care Neon Tube Bender Name Role Phone Lenin Ventura MD Primary Care Provider [phone] Lenin Ventura MD Unavailable [phone] Burt Dos Santos MD PhD Unavailable [phone] Reason for Visit * Oncology (Routine) - Authorized Specialty Diagnoses / Procedures Referred By Contac t Referred To Contact Medical Oncology / Oncology Diagnoses Appt Comment: LAB Procedures RETURN Lenin Ventura MD [address] [facility] [address] [place] [address] Phone: tel: fax: Burt Dos Santos MD PhD [phone] [facility] [place] [address] DIV IM BONE MARROW TRANSPLANT, 5TH, [address] [place] [address] Phone: tel: fax: Referral ID Status Reason Start Date Expiration Date V isits Requested Visits Authorized [id number] Authorized 08/02/2017 03/12/2024 99 99 Encounter Details Date Type Department Care Team (Latest Contact Info) Description 09/12/2023 11:00 AM CDT Office Visit [facility] [address] [facility] 7th Floor, [place] [address] [place], Magali Phelan NP [address] DIV IM BONE MARROW TRANSPLANT, [address] [place] [address] Hypogammaglobulinemia (HCC); CLL (chronic lymphocytic leukemia) ([facility]) Social History Tobacco Use Types Packs/Day Years Used Date Smoking Tobacco: Former Smokeless Tobacco: Never Alcohol Use Standard Drinks/Week Comments Not Currently 0 (1 standard drink = 0.6 oz pur e alcohol) Sex and Gender Information Value Date Recorded Sex Assigned at Not on file 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 Gender Identity Not on file Sexual Orientation Not on file documented as of this encounter Last Filed Vital Signs Vital Sign Reading Time Taken Comments Blood Pressure 120/75 09/12/2023 11:07 AM CDT Pulse 76 09/12/2023 11:07 AM CDT Temperature 36.3 ??C (97.3 ??F) 09/12/2023 11:07 AM C DT Respiratory Rate 18 09/12/2023 11:07 AM CDT Oxygen Saturation 96% 09/12/2023 11:07 AM CDT Inhaled Oxygen Concentration - - Weight 119.7 kg (264 lb) 09/12/2023 11:07 AM CDT Height - - Body Mass Index 32.14 08/28/2023 2:24 PM CDT documented in this encounter Progress Notes * Magali Stapleton NP - 09/12/2023 11:00 AM CDT BMT Progress Note Oncology History CLL (chronic lymphocytic leukemia) ([facility]) 07/03/2005 Initial Diagnosis Lymphoma, small lymphocytic; Initial [...] then q2mo x 4; [place] [facility] [phone] stable disease on CT; marrow 30-40% [...] Abdullahi returns for scheduled follow up. He denies fevers chills. He has not noticed any new lumps or bumps.He has not had any recent infections. He has completed 6 cycles of IVIG, last dose 08/08/23.. Otherwise, doing well. Outpatient Encounter Medications as of 09/12/2023: acyclovir (ZOVIRAX) 200 mg capsule, TAKE 2 CAPSULES(400 MG) BY MOUTH TWICE DAILY, Disp: 360 capsule, Rfl: 3 ALPRAZolam (XANAX) 0.25 mg tablet, Take 0.5-1 tablets by mouth 3 (three) times a day as needed for anxiety, Disp: , Rfl: budesonide (PULMICORT) 0.5 mg/2 mL nebulizer solution, Mix 1 capsule/ampule in 250 mL of saline irrigations ([employer] Sinus Rinse Bottle) and irrigate each nostril [...] 30 each, Rfl: 0 Objective Vitals: BP: 120/75 Temp: 36.3 ??C (97.3 ??F) Temp src: Transdermal Pulse: 76 Resp: 18 SpO2: 96 % Weight: 119.7 kg (264 lb) Physical exam: ECOG PS 0 General: No [...] CBC: Lab Results Component Value Date/Time WBC 7.9 09/12/2023 10:54 AM WBC 13.7 (H) 04/10/2019 03:03 PM HGB 15.3 09/12/2023 10:54 AM HGB 14.2 04/10/2019 03:03 PM HCT 44.1 09/12/2023 10:54 AM HCT 41.2 04/10/2019 03:03 PM LABPLAT 184 09/12/2023 10:54 AM LABPLAT 158 04/10/2019 03:03 PM NEUTROABS 3.8 09/12/2023 10:54 AM NEUTROABS 4,590 04/10/2019 03:03 PM CMP: Lab Results Component Value Date/Time SODIUM 136 09/12/2023 10:54 AM POTASSIUM 4.6 09/12/2023 10:54 AM CO2 27 09/12/2023 10:54 AM BUNSER 18 09/12/2023 10:54 AM GLUCOSE 123 09/12/2023 10:54 AM CREATININE 0.70 (L) 09/12/2023 10:54 AM CALCIUM 9.7 09/12/2023 10:54 AM CHLORIDE 103 09/12/2023 10:54 AM ALBUMIN 4.8 09/12/2023 10:54 AM AST 20 09/12/2023 10:54 AM ALT 27 09/12/2023 10:54 AM ALKPHOS 74 09/12/2023 10:54 AM BILITOT 0.9 09/12/2023 10:54 AM PROT 7.1 09/12/2023 10:54 AM ANIONGAP 7 09/12/2023 10:54 AM LDH: Lab Results Component Value Date/Time LDH 154 09/12/2023 10:54 AM Radiology: No imaging today. Assessment and [...] of IVIG, last dose was 08/08/23.. IgG 721 today As always, the patient knows to contact our office with any questions or concerns in the interim. Cosigned by Burt Dos Satnos MD PhD at 09/13/2023 5:12 PM CDT documented in this encounter Plan of Treatment Not on file documented as of this encounter Results * (ABNORMAL) CBC with auto differential (12/05/2023 10:33 AM CDT) [facility] WBC 11.7(H) 3.8 - 9.9 K/cumm Comment:Testing performed by : [facility], [address] [place] [address] Hgb 14.6 13.0 - 17.5 g/dL CERGEOFF BJ Comment:Testing performed by : [facility], [address] [place] [address] Hct 44.0 38.9 - 50.3 % CERNER BJ Comment:Testing performed by : [facility], [address] [place] [address] Plt 257 150 - 400 K/cumm CERGEOFF BJ Comment:Testing performed by : [facility], [address] [place] [address] MPV 10.8(H) 6.8 - 10.4 fL CERGEOFF BJ Comment:Testing performed by : [facility], [address] [place] [address] RBC 4.63 4.30 - 5.80 M/cumm [facility]ERGEOFF [facility] Comment:Testing performed by : [facility], [address] [place], [place] [phone] MCV 94.9 81.3 - 96.4 fL VANESSA CASTRO Comment:Testing performed by : [facility], [address] [place], [place] [phone] MCH 31.5 27.1 - 33.3 pg VANESSA CASTRO Comment:Testing performed by : [facility], [address] [place], [place] [phone] MCHC 33.2 32.3 - 35.7 g/dL VANESSA CASTRO Comment:Testing performed by : [facility], [address] [place], [place] [phone] RDW CV 13.3 11.1 - 14.9 % [facility] Comment:Testing performed by : [facility], [address] [place], [place] [phone] NRBC abs 0.00 0.00 - 0.01 K/cumm [facility] Comment:Testing performed by : [facility], [address] [place], [place] [phone] Blood 12/05/2023 10:3 3 AM CDT 12/05/2023 10:34 AM CDT Magali S. [place] SHIPPING CHECKER LAB BLOOD ORDERABLES Final Res ult Performing Organization Address [facility] Co de Phone Number [facility]ANES[facility] Department [place] [address] * Lactate dehydrogenase (LD) (12/05/2023 10:24 AM CDT) Lactate dehydrogenase (LDH) 153 100 - 250 Units/L Blood 12/05/2023 10:2 4 AM CDT 12/05/2023 10:52 AM CDT [employer] S. [place] SHIPPING CHECKER LAB BLOOD ORDERABLES Final Res ult Performing Organization Address [facility]/ZIP Co de Phone Number VANESSA CASTROH [facility] Department [place] [address] * (ABNORMAL) IgG (12/05/2023 10:24 AM CDT) Immunoglobulin G 411(L) 700 - 1,600 mg/dL Blood 12/05/2023 10:2 4 AM CDT 12/05/2023 11:16 AM CDT Magali Stapleton SHIPPING CHECKER LAB BLOOD ORDERABLES Final Res ult [facility] Gwen [facility] [place] [address] documented in this encounter Visit Diagnoses Diagnosis Hypogammaglobulinemia (HCC) Unspecified hypogammaglobulinemia CLL (chronic lymphocytic leukemia) (HCC) Chronic lymphoid leukemia, without mention of having achieved remission documented in this encounter Orders Appointment Requests Count Last Ordered Date Fi rst Ordered Date ONCBCN CLINIC APPOINTMENT REQUEST 2 024 09/12/2023 ONCBCN LAB APPOINTMENT 1 09/12/2023 documented in this encounter Additional Health Concerns Infection Onset Date Last Indicated Resolved Time C. difficile Comment:Backloaded December 21, 2010 09/21/2010 09/21/2010 documented as of this encounter Care Teams Neon Tube Bender Relationship Specialty Start Date End Date Lenin Ventura MD [address] [address] PCP - General 07/06/16 Lenin Ventura MD [address] [address] 07/06/16 Burt Dos Santos MD PhD [address] [address] Medical Oncologist/Analysis Lead Medical Oncology 06/16/19 documented as of this encounter
--- OUTSIDE RECORDS SUMMARY | 2024-02-22 08:28 | XMS_ITS | Encounter Summary ---
Author Organization [facility] Healthcare Address [address] [place] [address] Care Team Providers Care Quality Director Name Role Phone Lenin Ventura MD Primary Care Provider [phone] Lenin Ventura MD Unavailable [phone] Burt Dos Santos MD PhD Unavailable [phone] Encounter Details Date Type Department Care Team (Latest Contact Info) Description 07/11/2023 2:22 PM CDT - 07/11/2023 11:59 PM CDT Hospital Encounter [facility] Advanced [facility] ([facility]) [address] [place] [phone] Hypogammaglobulinemia (HCC); CLL (chronic lymphocytic leukemia) (HCC) [...] on file Legal Sex Male 9: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 Gender Identity Not on file Sexual Orientation [...] 100 mg tabletIndications: CLL (chronic lymphocytic leukemia) ([facility]) 03/14/2020 tamsulosin (FLOMAX) 0.4 mg extended release capsuleIndications :CLL (chronic lymphocytic leukemia) ([facility]) TAKE 1 CAPSULE BY MOUTH EVERY DAY AT BEDTIME 08/10/2022 traZODone (DESYREL) 50 mg tabletIndications: CLL (chronic lymphocytic leukemia) ([facility]) Take 1 tablet (50 mg total) by mouth nightly 12/20/2020 triamcinolone (KENALOG) 0.5 % cream APPLY TOPIALLY TO RASH TWICE DAILY NEEDED FOR UP TO 2 WEEKS AT A TIME 06/02/2022 zinc 50 mg tabletIndications: Zinc deficiency Take 50 mg by mouth daily 30 each 06/25/2019 acyclovir (ZOVIRAX) 200 mg capsuleIndications :CLL (chronic lymphocytic leukemia) ([facility]) TAKE 2 CAPSULES(400 MG) BY MOUTH [...] Priority Date/Time Associated Diagnosis Comments EGFR Routine 07/11/2023 1:52 PM CDT Hypogammaglobulinem ia (HCC) CLL (chronic lymphocytic leukemia) (HCC) DIFFERENTIAL AUTO Routine 07/11/2023 1:5 2 PM CDT Hypogammaglobulinem ia (HCC) CLL (chronic lymphocytic leukemia) (HCC) CBC WITH AUTO DIFFERENTIAL Routine 07/11/2023 1:52 PM CDT Hypogammaglobulinem ia (HCC) CLL (chronic lymphocytic leukemia) (HCC) LACTATE DEHYDROGENASE Routine 07/11/2023 1:52 PM CDT Hypogammaglobulinem ia (HCC) CLL (chronic lymphocytic leukemia) (HCC) COMPREHENSIVE METABOLIC PANEL Routine 07/11/2023 1:52 PM CDT Hypogammaglobulinem ia (HCC) CLL (chronic lymphocytic leukemia) (HCC) documented in this encounter Results * eGFR (07/11/2023 1:52 PM CDT) eGFR >90 >=60 mL/min/1. 73 [...] was last reviewed 2021. Testing performed by: [facility], [address] [place] [phone] Blood 07/11/2023 1:52 PM CDT 07/11/2023 1:55 PM CDT Burt Dos Santos MD PhD LAB BLOOD ORDERABLES Final Result [facility] One [facility] Department [place] [address] * (ABNORMAL) Differential, auto (07/11/2023 1:52 PM CDT) Neutrophil abs 4.4 1.5 - 6.6 K/cumm Comment:Testing performed by : [facility], [address] [place] [phone] Lymphocyte abs 5.8(H) 1.2 - 3.3 K/cumm [facility] Comment:Testing performed by : [facility], [address] [place] [phone] Monocyte abs 0.5 0.2 - 1.2 K/cumm VANESSA CASTRO Comment:Testing performed by : [facility], [address] [place] [phone] Eosinophil abs 0.1 0.0 - 0.5 K/cumm [facility] Comment:Testing performed by : [facility], [address] [place] [phone] Basophil abs 0.0 0.0 - 0.2 K/cumm CERGEOFF BJ Comment:Testing performed by : [facility], [address] [place] [phone] Neutrophil pct 40.4 % CERGEOFF CASTRO Comment: Interpretive Data Percent cell count reference ranges are not reported, since discordance with absolute values may lead to misinterpretation of CBC data. Current Interpretive Data was last revised on 2017. Testing performed by: [facility], [address] [place] [phone] Lymphocyte pct 53.5 % CERGEOFF BJ Comment: Interpretive Data Percent cell count reference ranges are not reported, since discordance with absolute values may lead to misinterpretation of CBC data. Current Interpretive Data was last revised on 2017. Testing performed by: [facility], [address] [place] [phone] Monocyte pct 5.0 % CERGEOFF CASTRO Comment:Testing performed by : [facility], [address] [place] [phone] Eosinophil pct 0.7 % VANESSA CASTRO Comment:Testing performed by : [facility], [address] [place] [phone] Basophil pct 0.4 % [facility] Comment:Testing performed by : [facility], [address] [place] [phone] Blood 07/11/2023 1:52 PM CDT 07/11/2023 1:55 PM CDT Burt Dos Santos MD PhD LAB BLOOD ORDERABLES Final Result VANESSA CASTRO [facility] Department [place] [address] * Lactate dehydrogenase (LD) (07/11/2023 1:52 PM CDT) Lactate dehydrogenase (LDH) 139 100 - 250 Units/L Comment:Testing performed by : [facility], [address] [place] [phone] Blood 07/11/2023 1:52 PM CDT 07/11/2023 1:55 PM CDT us Burt Dos Santos MD PhD LAB BLOOD ORDERABLES Final Result [facility]ESSA CASTRO [facility] Department [place] [address] * Comprehensive metabolic panel (07/11/2023 1:52 PM CDT) Sodium 139 135 - 145 mmol/L Comment:Testing performed by : [facility], [address] [place] [phone] Potassium, pl 4.7 3.3 - 4.9 mmol/L VANESSA CASTRO Comment:Testing performed by : [facility], [address] [place] [phone] Chloride 105 97 - 110 mmol/L VANESSA CASTRO Comment:Testing performed by : [facility], [address] [place] [phone] CO2 26 22 - 32 mmol/L VANESSA CASTRO Comment:Testing performed by : [facility], [address] [place] [phone] Anion gap 8 2 - 15 mmol/L VANESSA CASTRO Comment:Testing performed by : [facility], [address] [place] [phone] BUN 21 6 - 25 mg/dL VANESSA CASTRO Comment:Testing performed by : [address] [phone] Creatinine 0.85 0.80 - 1.30 mg/dL VANESSA CASTRO Comment:Testing performed by : [facility], [address] [place] [phone] Glucose 143 70 - 199 mg/dL VANESSA CASTRO Comment: [...] was last revised 2022. Testing performed by: [facility], [address] [place] [phone] Calcium 9.7 8.5 - 10.3 mg/dL [facility]ER[facility] Comment:Testing performed by : [facility], [address] [place] [phone] Bilirubin, total 0.6 0.1 - 1.2 mg/dL [facility] Comment:Testing performed by : [facility], [address] [place] [phone] Protein, pl 6.8 6.5 - 8.5 g/dL [facility] Comment:Testing performed by : [facility], [address] [place] [phone] Albumin 4.5 3.5 - 5.0 g/dL [facility] Comment:Testing performed by : [facility], [address] [place] [phone] Alk phos 79 40 - 130 Units/L [facility] Comment:Testing performed by : [facility], [address] [place] [phone] ALT 23 7 - 55 Units/L [facility] Comment:Testing performed by : [facility], [address] [place] [phone] AST 15 10 - 50 Units/L [facility] Comment:Testing performed by : [address] [phone] Blood 07/11/2023 1:52 PM CDT 07/11/2023 1:55 PM CDT us Burt Dos Santos MD PhD LAB BLOOD ORDERABLES Final Result [facility] One [facility] Department [place] [address] * (ABNORMAL) CBC with auto differential (07/11/2023 1:52 PM CDT) WBC 10.9(H) 3.8 - 9.8 K/cumm Comment:Testing performed by : [facility], [address] [place], [place] [phone] Hgb 14.8 13.8 - 17.2 g/dL CERNER BJ Comment:Testing performed by : [facility], [address] [place], [place] [phone] Hct 43.7 40.7 - 50.3 % CERNER BJ Comment:Testing performed by : [facility], [address] [place], [place] [phone] Plt 179 140 - 440 K/cumm CERNER BJ Comment:Testing performed by : [facility], [address] [place] [address] MPV 10.4 6.8 - 10.4 fL CERNER BJ Comment:Testing performed by : [facility], [address] [place] [address] RBC 4.51 4.50 - 5.70 M/cumm CERNER BJ Comment:Testing performed by : [facility], [address] [place] [address] MCV 96.9 80.0 - 97.6 fL CERNER BJ Comment:Testing performed by : [place] [phone] MCH 32.8 26.7 - 33.7 pg CERNER BJ Comment:Testing performed by : [place] [address] MCHC 33.9 32.7 - 35.5 g/dL CERNER BJ Comment:Testing performed by : [facility], [address] [place], [place] [phone] RDW CV 13.9 11.8 - 14.6 % CERNER BJ Comment:Testing performed by : [place] [address] NRBC abs 0.01 0.00 - 0.01 K/cumm CERNER BJ Comment:Testing performed by : [place] [phone] Blood 07/11/2023 1:52 PM CDT 07/11/2023 1:55 PM CDT Burt Dos Santos MD PhD LAB BLOOD ORDERABLES Final Result [facility]ESSA BELLA One [facility] Department [place] [address] documented in this encounter Visit Diagnoses Diagnosis Hypogammaglobulinemia (HCC) Unspecified hypogammaglobulinemia CLL (chronic lymphocytic leukemia) (HCC) Chronic lymphoid leukemia, without mention of having achieved remission documented in this encounter Additional Health Concerns Infection Onset Date Last Indicated Resolved Time C. difficile Comment:Backloaded December 21, 2010 09/21/2010 09/21/2010 documented as of this encounter Care Teams Quality Director Relationship Specialty Start Date End Date Lenin Ventura MD [address] [address] PCP - General 07/06/16 Lenin Ventura MD [address] [address] 07/06/16 Burt Dos Santos MD PhD [address] [address] Medical Oncologist/Pit Hand Medical Oncology 06/16/19 documented as of this encounter
--- OUTSIDE RECORDS SUMMARY | 2024-02-22 08:28 | XMS_ITS | Encounter Summary ---
Author Organization [facility] Address [address] [place] [address] Phone Care Team Providers Care Property And Equipment Clerk Name Role Phone Lenin Ventura MD Primary Care Provider [phone] Lenin Ventura MD Unavailable [phone] Burt Dos Santos MD PhD Unavailable [phone] Reason for Visit * Episode Based Medications (Routine) - Authorized Specialty Diagnoses / Procedures Referred By Contguillermo t Referred To Contact Diagnoses Hypogammaglobulinemia (HCC) Procedures NE GAMUNEX-C/GAMMAKED GAMUNEX Burt Dos Santos MD PhD [address] DIV IM BONE MARROW TRANSPLANT, [address] [place] [address] Phone: tel: fax: [facility] [place] [address] [facility] Medicine 7th [place] [address] Phone: tel: Referral ID Status Reason Start Date Expiration Date V isits Requested Visits Authorized [id number] Authorized 10/19/2019 08/02/2024 1 38 Encounter Details Date Type Department Care Team (Latest Contact Info) Description 03/21/2023 1:00 PM PRODUCT INFO SPECIALIST Infusion [facility] Oncology [address] [place] [address] Medicine [facility] [place] [address] Hypogammaglobulinemia (HCC) (Primary Dx); CLL (chronic lymphocytic leukemia) (HCC) Social History Tobacco Use Types Packs/Day Years Used Date Smoking Tobacco: Former Smokeless Tobacco: Never Alcohol Use Standard Drinks/Week Comments Not Currently 0 (1 standard drink = 0.6 oz pur e alcohol) Sex and Gender Information Value Date Recorded Sex Assigned at Not on file Legal Sex Male 9:45 AM PRODUCT INFO SPECIALIST Gender Identity Not on file Sexual Orientation Not on file documented as of this encounter Last Filed Vital Signs Vital Sign Reading Time Taken Comments Blood Pressure 120/73 03/21/2023 5:08 PM PRODUCT INFO SPECIALIST Pulse 80 03/21/2023 5:08 PM PRODUCT INFO SPECIALIST Temperature 36.9 ??C (98.4 ??F) 03/21/2023 4:40 PM CS T Respiratory Rate 18 03/21/2023 5:08 PM PRODUCT INFO SPECIALIST Oxygen Saturation 98% 03/21/2023 5:08 PM PRODUCT INFO SPECIALIST Inhaled Oxygen Concentration - - Weight 124.6 kg (274 lb 12.8 oz) 03/21/2023 1:10 PM PRODUCT INFO SPECIALIST Height - - Body Mass Index 33.67 03/14/2023 9:44 AM PRODUCT INFO SPECIALIST documented in this encounter Nursing Notes * Vielka Perez - 03/21/2023 1:00 PM CST Oncology Nursing Note [facility] Jeff Abdullahi is a 72 y.o. male who presents for IVIG. Pre-treatment Nursing Assessment Nursing Assessment LOC: Awake, Alert Fatigue: Constant (rest does help if able to) Any falls since your last visit?: No Orientation: Oriented x4 Behavior: Calm Speech: Clear Language: No aphasia Peripheral Neuropathy: Yes (toes, no more than usual ) Oral Mucosa Grade: Normal (0) ( not right now ) Pt states has potential to be ?: N/A Shortness of Breath?: No Cough: Absent Appetite: Fair Nausea/Vomiting: No Diarrhea: No Constipation: No Last BM Date: 03/21/23 Skin Condition/Temp: Warm, Dry (RN noted previous IV areas) Swelling: No Additional Notes: Pt has not had IVIG in approx 6 mos, will return to q30min titration. Pt otherwise has no new concerns. Pt took medication with 325mg acetaminophen at 0900, held back one tylenol at premed dosing for this. Per GINGER FARMER Saige Lopez, will not require redosing of tylenol. BP: 131/70 Temp: 37 ??C (98.6 ??F) Temp src: Oral Pulse: 80 Resp: 20 SpO2: 96 % Weight: 124.6 kg (274 lb 12.8 oz) Pain Score: ( no more than usual ) Treatment Patient: does not require labs today. Pre blood return: Brisk Jeff Abdullahi tolerating infusion well at time of report. [facility]Pt resting comfortably at time of report. UCT INFO SPECIALIST * Maryse Rivera RN - 03/21/2023 1:00 PM CST Oncology Nursing Note [facility] Assumed care of Jeff Abdullahi for remainder of treatment on 03/21/2023. Treatment Jeff Abdullahi developed nausea. Per patient, happens every now and then. Additional Notes: IVIG stopped after c/o nausea. Patient given snacks per request, vitals taken, charge nurse notified. Per Patient, felt ok to restart. About 10 min. Later, complained of nausea again and requested zofran. GINGER FARMER Saige Krishna notified and zofran and pepcid ordered and administered.Relief noted and infusion completed. See flowsheet for details. Post blood return: Brisk IV access post infusion: NS Discharge Plan Discharge instructions given to patient. Future appointments given and reviewed with treatment plan. Discharge Mode: Ambulatory Accompanied by: Self Discharged To: Home UCT INFO SPECIALIST documented in this encounter Plan of Treatment [...] mg 650 mg, oral, Once, On Paloma 03/21/23 at 1400, For 1 dose, Please give 30 minutes prior to IVIG.Indications:Hypogammaglobulinem ia (HCC) Given 03/21/2023 1:45 PM PRODUCT INFO SPECIALIST 325 mg diphenhydrAMINE (BENADRYL) tab/cap 25 mg 25 mg, oral, Once, On [place] 03/21/23 at 1400, For 1 dose, Give 30 minutes prior to IVIG.Indications:Hypogammaglobulinem ia (HCC) Given 03/21/2023 1:45 PM PRODUCT INFO SPECIALIST 25 mg famotidine (PEPCID) injection 20 mg 20 mg, intravenous, Administer over 2 Minutes, Every 15 min PRN, Repeat x 1 PRN if symptoms are not relieved within 15 minutes, Starting on [place] 03/21/23 at 1701, For 2 doses, Repeat x 1 PRN if symptoms are not relieved within 15 minutesIndications:Hypogammaglobulin emia ([facility]) Given 03/21/2023 5:04 PM PRODUCT INFO SPECIALIST 20 mg immune globulin (GAMUNEX-C,GAMMAKED) 10 % infusion 35 g 35 g (rounded from 34.48 g = 400 mg/kg ? 86.2 kg [place] weight), intravenous, Once, On [place] 03/21/23 at 1400, For 1 dose, GamuNEX C INITIAL Infusion, 30 Minute Titration Patient Weight: 86.2 kg Initiate Infusion at 0.6 mL/kg/hr. If no reaction, may increase rate by 0.6 mL/kg/hr every 30 minutes, to a max of 4.8 mL/kg/hr 0.6 mL/kg/hr = Infuse 26 mL over 30 minutes (Rate = 52 mL/hr) 1.2 mL/kg/hr = Infuse 52 mL over 30 minutes (Rate = 103 mL/hr) 1.8 mL/kg/hr = Infuse 78 mL over 30 minutes (Rate = 155 mL/hr) 2.4 mL/kg/hr = Infuse 103 mL over 30 minutes (Rate = 207 mL/hr) 3.0 mL/kg/hr = Infuse 129 mL over 30 minutes (Rate = 259 mL/hr) 3.6 mL/kg/hr = Infuse 155 mL over 30 minutes (Rate = 310 mL/hr) 4.2 mL/kg/hr = Infuse 181 mL over 30 minutes (Rate = 362 mL/hr) 4.8 mL/kg/hr for remainder (Rate = 414 mL/hr) Administer over: 1 mg/kg/min x 30 minutes, then 2 mg/kg/min x 30 minutes, then 4 mg/kg/min x 30 minutes, then 6 mg/kg/min x 30 minutes, then 8 mg/kg/min until infusion complete. If initial titration was well tolerated, subsequent infusions may be titrated every 15 minutes.Indications:Hypogammaglobuli nemia (HCC) Restarted 03/21/2023 5:08 PM PRODUCT INFO SPECIALIST Restarted 03/21/2023 4:47 PM PRODUCT INFO SPECIALIST 259 mL/hr Rate/Dose Change 03/21/2023 4:38 PM PRODUCT INFO SPECIALIST 259 mL/ hr ondansetron (ZOFRAN) injection 4 mg 4 mg, intravenous, Administer over 2 Minutes, Once, On [place] 03/21/23 at 1745, For 1 doseIndications:Hypogammaglobulinemia (HCC) Given 03/21/2023 5:04 PM PRODUCT INFO SPECIALIST 4 mg documented in this encounter Orders Nursing Count Last Ordered Date First Orde red Date ONCBCN NURSING COMMUNICATION [id number] 2 0 03/21/2023 VITAL SIGNS INTRA-INFUSION 1 03/21/2023 Appointment Requests Count Last Ordered Date Fi rst Ordered Date ONCBCN INFUSION APPT REQUEST 1 03/21/2023 documented in this encounter Additional Health Concerns Infection Onset Date Last Indicated Resolved Time C. difficile Comment:Backloaded December 21, 2010 09/21/2010 09/21/2010 documented as of this encounter Care Teams Property And Equipment Clerk Relationship Specialty Start Date End Date Lenin Ventura MD [address] [phone] PCP - General 07/06/16 Lenin Ventura MD [address] [address] 07/06/16 Burt Dos Santos MD PhD [address] [address] Medical Oncologist/Outside Salesperson Medical Oncology 06/16/19 documented as of this encounter
--- OUTSIDE RECORDS SUMMARY | 2024-02-22 08:28 | XMS_ITS | Encounter Summary ---
Author Organization [facility] Healthcare Address [address] [place] [address] Care Team Providers Care Agriculture Intern Name Role Phone Lenin Ventura MD Primary Care Provider [phone] Lenin Ventura MD Unavailable [phone] Burt Dos Santos MD PhD Unavailable [phone] Encounter Details Date Type Department Care Team (Latest Contact Info) Description 08/23/2022 7:59 AM CDT - 08/23/2022 11:59 PM CDT Hospital Encounter [facility] ([facility]) [address] [place] [phone] CLL (chronic lymphocytic leukemia) (HCC) Discharge Disposition: Discharge to home or self care Social History Tobacco Use Types Packs/Day Years Used Date Smoking Tobacco: Former Smokeless Tobacco: Never Alcohol Use Standard Drinks/Week Comments Not Currently 0 (1 standard drink = 0.6 oz pur e alcohol) Sex and Gender Information Value Date Recorded Sex Assigned at Not on file Legal Sex Male 9:45 AM OCCUPANCY SPECIALIST Gender Identity Not on file Sexual [...] by mouth daily 06/25/2019 melatonin 5 mg capsuleIndication s:Insomnia, unspecified type Take 5 mg by mouth nightly as needed (insomnia) 0 06/25/2019 mupirocin (BACTROBAN) 2 % ointment Apply 1 inch of ointment to nasal irrigations 3x's daily 30 g 3 06/23/2019 oxyCODONE (ROXICODONE) 5 mg immediate release tabletIndications :Pain Take 1 tablet (5 mg total) by mouth every 4 (four) hours as needed for pain (abscess) for up to 10 doses 10 tablet 08/04/2022 sildenafiL (VIAGRA) 100 mg tabletIndications :CLL (chronic lymphocytic leukemia) (HCC) 03/14/2020 tamsulosin (FLOMAX) 0.4 mg extended release capsuleIndication s:CLL (chronic lymphocytic leukemia) (HCC) TAKE 1 CAPSULE BY MOUTH EVERY DAY AT BEDTIME 08/10/2022 traZODone (DESYREL) 50 mg tabletIndications :CLL (chronic lymphocytic leukemia) (HCC) Take 1 tablet [...] a day 360 capsule 3 09/01/2021 3 documented as of this encounter Discharge Disposition Disposition Code Departure Means Destination Discharge to home or self care documented in this encounter Plan of Treatment Not on file documented as of this encounter Procedures Procedure Name Priority Date/Time Associated Diagnosis Comments EGFR STAT 08/23/2022 9:55 AM CDT CLL (chronic lymphocytic leukemia) (HCC) DIFFERENTIAL AUTO STAT 08/23/2022 9:5 5 AM CDT CLL (chronic lymphocytic leukemia) (HCC) CBC WITH AUTO DIFFERENTIAL STAT 08/23/2022 9:55 AM CDT CLL (chronic lymphocytic leukemia) (HCC) LACTATE DEHYDROGENASE STAT 08/23/2022 9:55 AM CDT CLL (chronic lymphocytic leukemia) (HCC) IGG Routine 08/23/2022 9:55 AM CDT CLL (chronic lymphocytic leukemia) (HCC) COMPREHENSIVE METABOLIC PANEL STAT 08/23/2022 9:55 AM CDT CLL (chronic lymphocytic leukemia) (HCC) documented in this encounter Results * (ABNORMAL) eGFR (08/23/2022 9:55 AM CDT) eGFR 78(L) 90 - 130 mL/min/1. 73 m2 VANESSA [...] was last reviewed 2021. Testing performed by: [facility], [address] [place] [phone] Blood 08/23/2022 9:55 AM CDT 08/23/2022 9:59 AM CDT us Burt Dos Santos MD PhD LAB BLOOD ORDERABLES Final Result VANESSA CASTRO [facility] Department [place] [address] * (ABNORMAL) Differential, auto (08/23/2022 9:55 AM CDT) Neutrophil abs 3.3 1.8 - 6.6 K/cumm [facility] Comment:Testing performed by : [facility], [address] [place] [phone] Lymphocyte abs 4.7(H) 1.2 - 3.3 K/cumm VANESSA BJ Comment:Testing performed by : [facility], [address] [place] [phone] Monocyte abs 0.5 0.2 - 1.2 K/cumm VANESSA BJ Comment:Testing performed by : [facility], [address] [place] [phone] Eosinophil abs 0.1 0.0 - 0.5 K/cumm VANESSA BJ Comment:Testing performed by : [facility], [address] [place] [phone] Basophil abs 0.0 0.0 - 0.2 K/cumm [facility]ER[facility] Comment:Testing performed by : [facility], [address] [place] [phone] Neutrophil pct 37.7 % VANESSA CASTRO Comment: Interpretive Data Percent cell count reference ranges are not reported, since discordance with absolute values may lead to misinterpretation of CBC data. Current Interpretive Data was last revised on 2017. Testing performed by: [facility], [address] [place] [phone] Lymphocyte pct 54.4 % [facility] Comment: Interpretive Data Percent cell count reference ranges are not reported, since discordance with absolute values may lead to misinterpretation of CBC data. Current Interpretive Data was last revised on 2017. Testing performed by: [facility], [address] [place] [phone] Monocyte pct 6.2 % VANESSA CASTRO Comment:Testing performed by : [facility], [address] [place] [phone] Eosinophil pct 1.2 % VANESSA CASTRO Comment:Testing performed by : [facility], [address] [place] [phone] Basophil pct 0.5 % [facility] Comment:Testing performed by : [facility], [address] [place] [phone] Blood 08/23/2022 9:55 AM CDT 08/23/2022 9:59 AM CDT Burt Dos Santos MD PhD LAB BLOOD ORDERABLES Final Result Performing Organization Address City/[facility] Co de Phone Number [facility] Department [place] [address] * Lactate dehydrogenase (LD) (08/23/2022 9:55 AM CDT) Lactate dehydrogenase (LDH) 146 100 - 250 Units/L [facility] Comment:Testing performed by : [facility], [address] [place] [phone] Blood 08/23/2022 9:55 AM CDT 08/23/2022 9:59 AM CDT Burt Dos Santos MD PhD LAB BLOOD ORDERABLES Final Result Performing Organization Address City/[facility]/ZIP Co de Phone Number [facility] Department [place] [address] * (ABNORMAL) Comprehensive metabolic panel (08/23/2022 9:55 AM CDT) [facility] Signature Sodium 136 135 - 145 mmol/L [facility]ERNER [facility] Comment:Testing performed by : [facility], [address] [place] [phone] Potassium, pl 5.5(H) 3.3 - 4.9 mmol/L CERNER BJ Comment:Testing performed by : [facility], [address] [place] [phone] Chloride 103 97 - 110 mmol/L [facility]ERNER [facility]J Comment:Testing performed by : [facility], [address] [place] [phone] CO2 27 22 - 32 mmol/L [facility] Comment:Testing performed by : [facility], [address] [place] [phone] Anion gap 6 2 - 15 mmol/L [facility]ERNER [facility]J Comment:Testing performed by : [facility], [address] [place] [phone] BUN 20 6 - 25 mg/dL CERNER BJ Comment:Testing performed by : [facility], [address] [place] [phone] Creatinine 1.03 0.80 - 1.30 mg/dL CERNER BJ Comment:Testing performed by : [facility], [address] [place] [phone] Glucose 137 70 - 199 mg/dL [facility] Comment: Interpretive Data Fasting [...] was last revised 2022. Testing performed by: [facility], [address] [place] [phone] Calcium 9.3 8.5 - 10.3 mg/dL [facility]ER[facility]OFF [facility] Comment:Testing performed by : [facility], [address] [place] [phone] Bilirubin, total 0.4 0.1 - 1.2 mg/dL [facility]ERGEOFF [facility] Comment:Testing performed by : [facility], [address] [place] [phone] Protein, pl 6.4(L) 6.5 - 8.5 g/dL [facility]ERGEOFF [facility] Comment:Testing performed by : [facility], [address] [place] [phone] Albumin 4.3 3.5 - 5.0 g/dL [facility]ER[facility]OFF [facility] Comment:Testing performed by : [facility], [address] [place] [phone] Alk phos 92 40 - 130 Units/L [facility]SA [facility] Comment:Testing performed by : [address] [phone] ALT 21 7 - 55 Units/L [facility] Comment:Testing performed by : [facility], [address] [place] [phone] AST 17 10 - 50 Units/L [facility] Comment:Testing performed by : [facility], [address] [place] [phone] Blood 08/23/2022 9:55 AM CDT 08/23/2022 9:59 AM CDT Burt Dos Santos MD PhD LAB BLOOD ORDERABLES Final Result [facility] Department [place] [address] * (ABNORMAL) CBC with auto differential (08/23/2022 9:55 AM CDT) WBC 8.6 3.8 - 9.8 K/cumm [facility] Comment:Testing performed by : [facility], [address] [place] [phone] Hgb 13.8 13.8 - 17.2 g/dL [facility] Comment:Testing performed by : [facility], [address] [place], [place] [phone] Hct 41.3 40.7 - 50.3 % CERGEOFF BJ Comment:Testing performed by : [facility], [address] [place], [place] [phone] Plt 255 140 - 440 K/cumm CERGEOFF CASTRO Comment:Testing performed by : [place] [phone] MPV 10.3 6.8 - 10.4 fL [facility]ERGEOFF [facility]J Comment:Testing performed by : [place] [address] RBC 4.37(L) 4.50 - 5.70 M/cumm VANESSA BJ Comment:Testing performed by : [place] [id number] MCV 94.5 80.0 - 97.6 fL [facility]SA [facility] Comment:Testing performed by : [facility], [address] [place], [place] [phone] MCH 31.6 26.7 - 33.7 pg [facility]ER[facility]OFF [facility] Comment:Testing performed by : [place] [id number] MCHC 33.5 32.7 - 35.5 g/dL [facility] Comment:Testing performed by : [place] [id number] RDW CV 15.4(H) 11.8 - 14.6 % [facility] Comment:Testing performed by : [place] [id number] NRBC abs 0.01 0.00 - 0.01 K/cumm [facility] Comment:Testing performed by : [place] [id number] Blood 08/23/2022 9:55 AM CDT 08/23/2022 9:59 AM CDT Burt Dos Santos MD PhD LAB BLOOD ORDERABLES Final Result [facility]ANESSA CASTRO [facility] Department [place] [address] * (ABNORMAL) IgG (08/23/2022 9:55 AM CDT) Immunoglobulin G 599.0(L) 700.0 - 1,600.0 mg/dL [facility] Blood 08/23/2022 9:55 AM CDT 08/23/2022 10:18 AM CDT us Magali SJulisa Ulysses DEPUTY FIRE CHIEF LAB BLOOD ORDERABLES Final Res ult [facility] [place] [address] documented in this encounter Visit Diagnoses Diagnosis CLL (chronic lymphocytic leukemia) (HCC) Chronic lymphoid leukemia, without mention of having achieved remission documented in this encounter Additional Health Concerns Infection Onset Date Last Indicated Resolved Time C. difficile Comment:Backloaded December 21, 2010 09/21/2010 09/21/2010 MRSA 08/09/2022 08/09/2022 02/05/2023 3:05 AM OCCUPANCY SPECIALIST documented as of this encounter Care Teams Agriculture Intern Relationship Specialty Start Date End Date Lenin Ventura MD [address] [address] PCP - General 07/06/16 Lenin Ventura MD [address] [address] 07/06/16 Burt Dos Santos MD PhD [address] [address] Medical Oncologist/Dry Starch Operator Medical Oncology 06/16/19 documented as of this encounter
--- OUTSIDE RECORDS SUMMARY | 2024-02-22 08:28 | XMS_ITS | Encounter Summary ---
Author Organization [facility] Healthcare Address [address] [place] [address] Care Team Providers Care Pneumatic Jacketer Name Role Phone Lenin Ventura MD Primary Care Provider [phone] Lenin Ventura MD Unavailable [phone] Burt Dos Santos MD PhD Unavailable [phone] Encounter Details Date Type Department Care Team (Latest Contact Info) Description 06/13/2023 11:47 AM CDT - 06/13/2023 11:59 PM CDT Hospital Encounter [facility] ([facility]) [address] [place] [phone] Hypogammaglobulinemia (HCC); CLL (chronic lymphocytic leukemia) (HCC) [...] on file 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 Gender Identity Not on file Sexual [...] tabletIndications: CLL (chronic lymphocytic leukemia) ([facility]) 03/14/2020 tamsulosin (FLOMAX) 0.4 mg extended release capsuleIndications :CLL (chronic lymphocytic leukemia) ([facility]) TAKE 1 CAPSULE BY MOUTH EVERY DAY AT BEDTIME 08/10/2022 traZODone (DESYREL) 50 mg tabletIndications: CLL (chronic lymphocytic leukemia) ([facility]) Take 1 tablet (50 mg total) by mouth nightly 12/20/2020 triamcinolone (KENALOG) 0.5 % cream APPLY TOPIALLY TO RASH TWICE DAILY NEEDED FOR UP TO 2 WEEKS AT A TIME 06/02/2022 zinc 50 mg tabletIndications: Zinc deficiency Take 50 mg by mouth daily 30 each 06/25/2019 acyclovir (ZOVIRAX) 200 mg capsuleIndications :CLL (chronic lymphocytic leukemia) ([facility]) TAKE 2 CAPSULES(400 MG) BY MOUTH TWICE DAILY 360 capsule 3 01/23/2023 4 Calquence, acalabrutinib mal, 100 mg tabletIndications: CLL (chronic lymphocytic leukemia) ([facility]) Take 1 tablet (100 mg total) by [...] Priority Date/Time Associated Diagnosis Comments EGFR Routine 06/13/2023 10:20 AM CDT Hypogammaglobulinem ia (HCC) CLL (chronic lymphocytic leukemia) (HCC) DIFFERENTIAL AUTO Routine 06/13/2023 10: 20 AM CDT Hypogammaglobulinem ia (HCC) CLL (chronic lymphocytic leukemia) (HCC) CBC WITH AUTO DIFFERENTIAL Routine 06/13/2023 10:20 AM CDT Hypogammaglobulinem ia (HCC) CLL (chronic lymphocytic leukemia) (HCC) LACTATE DEHYDROGENASE Routine 06/13/2023 10:20 AM CDT Hypogammaglobulinem ia (HCC) CLL (chronic lymphocytic leukemia) (HCC) COMPREHENSIVE METABOLIC PANEL Routine 06/13/2023 10:20 AM CDT Hypogammaglobulinem ia (HCC) CLL (chronic lymphocytic leukemia) (HCC) documented in this encounter Results * eGFR (06/13/2023 10:20 AM CDT) eGFR >90 >=60 mL/min/1. 73 [...] was last reviewed 2021. Testing performed by: [facility], [address] [place] [phone] Blood 06/13/2023 10:2 0 AM CDT 06/13/2023 10:23 AM CDT Burt Dos Santos MD PhD LAB BLOOD ORDERABLES Final Result VANESSA CASTRO [facility] Department [place] [address] * (ABNORMAL) Differential, auto (06/13/2023 10:20 AM CDT) Neutrophil abs 4.0 1.5 - 6.6 K/cumm Comment:Testing performed by : [facility], [address] [place] [phone] Lymphocyte abs 4.3(H) 1.2 - 3.3 K/cumm VANESSA CASTRO Comment:Testing performed by : [facility], [address] [place] [phone] Monocyte abs 0.6 0.2 - 1.2 K/cumm VANESSA BJ Comment:Testing performed by : [facility], [address] [place] [phone] Eosinophil abs 0.1 0.0 - 0.5 K/cumm VANESSA BJ Comment:Testing performed by : [facility], [address] [place] [phone] Basophil abs 0.1 0.0 - 0.2 K/cumm VANESSA BJ Comment:Testing performed by : [facility], [address] [place] [phone] Neutrophil pct 44.6 % CERGEOFF CASTRO Comment: Interpretive Data Percent cell count reference ranges are not reported, since discordance with absolute values may lead to misinterpretation of CBC data. Current Interpretive Data was last revised on 2017. Testing performed by: [facility], [address] [place] [phone] Lymphocyte pct 47.6 % VANESSA CASTRO Comment: Interpretive Data Percent cell count reference ranges are not reported, since discordance with absolute values may lead to misinterpretation of CBC data. Current Interpretive Data was last revised on 2017. Testing performed by: [facility], [address] [place] [phone] Monocyte pct 6.4 % VANESSA CASTRO Comment:Testing performed by : [address] [phone] Eosinophil pct 0.7 % VANESSA CASTRO Comment:Testing performed by : [facility], [address] [place] [phone] Basophil pct 0.7 % VANESSA CASTRO Comment:Testing performed by : [facility], [address] [place] [phone] Blood 06/13/2023 10:2 0 AM CDT 06/13/2023 10:23 AM CDT Burt Dos Santos MD PhD LAB BLOOD ORDERABLES Final Result Performing Organization Address City/State/[facility] Co de Phone Number VANESSA CASTRO [facility] Department [place] [address] * (ABNORMAL) CBC with auto differential (06/13/2023 10:20 AM CDT) WBC 8.9 3.8 - 9.8 K/cumm Comment:Testing performed by : [facility], [address] [place] [phone] Hgb 14.2 13.8 - 17.2 g/dL VANESSA CASTRO Comment:Testing performed by : [address] [phone] Hct 41.4 40.7 - 50.3 % VANESSA CASTRO Comment:Testing performed by : [facility], [address] [place], [place] [phone] Plt 194 140 - 440 K/cumm VANESSA [facility] Comment:Testing performed by : [facility], [address] [place], [place] [phone] MPV 10.1 6.8 - 10.4 fL VANESSA [facility] Comment:Testing performed by : [facility], [address] [place], [place] [phone] RBC 4.28(L) 4.50 - 5.70 M/cumm VANESSA CASTRO Comment:Testing performed by : [facility], [address] [place], [place] [phone] MCV 96.8 80.0 - 97.6 fL VANESSA [facility] Comment:Testing performed by : [facility], [address] [place], [place] [phone] MCH 33.1 26.7 - 33.7 pg VANESSA [facility] Comment:Testing performed by : [place] [phone] MCHC 34.2 32.7 - 35.5 g/dL VANESSA [facility] Comment:Testing performed by : [facility], [address] [place] [phone] RDW CV 13.9 11.8 - 14.6 % VANESSA [facility] Comment:Testing performed by : [facility], [address] [place] [phone] NRBC abs 0.01 0.00 - 0.01 K/cumm VANESSA [facility] Comment:Testing performed by : [facility], [address] [place], [place] [phone] Blood 06/13/2023 10:2 0 AM CDT 06/13/2023 10:23 AM CDT us Burt Dos Santos MD PhD LAB BLOOD ORDERABLES Final Result VANESSA [facility] Department [place] [address] * (ABNORMAL) Comprehensive metabolic panel (06/13/2023 10:20 AM CDT) Sodium 137 135 - 145 mmol/L Comment:Testing performed by : [facility], [address] [place] [phone] Potassium, pl 4.5 3.3 - 4.9 mmol/L CERNER BJ Comment:Testing performed by : [facility], [address] [place] [phone] Chloride 104 97 - 110 mmol/L CERNER BJ Comment:Testing performed by : [facility], [address] [place] [phone] CO2 25 22 - 32 mmol/L CERNER [facility] Comment:Testing performed by : [facility], [address] [place] [phone] Anion gap 8 2 - 15 mmol/L CERNER BJ Comment:Testing performed by : [facility], [address] [place] [phone] BUN 20 6 - 25 mg/dL CERNER BJ Comment:Testing performed by : [facility], [address] [place] [phone] Creatinine 0.74(L) 0.80 - 1.30 mg/dL CERNER BJ Comment:Testing performed by : [facility], [address] [place] [phone] Glucose 118 70 - 199 mg/dL CERNER [...] was last revised 2022. Testing performed by: [facility], [address] [place] [phone] Calcium 8.8 8.5 - 10.3 mg/dL CERNER BJ Comment:Testing performed by : [facility], [address] [place] [phone] Bilirubin, total 0.7 0.1 - 1.2 mg/dL CERNER [facility] Comment:Testing performed by : [facility], [address] [place] [phone] Protein, pl 6.4(L) 6.5 - 8.5 g/dL VANESSA [facility] Comment:Testing performed by : [facility], [address] [place] [phone] Albumin 4.2 3.5 - 5.0 g/dL VANESSA [facility] Comment:Testing performed by : [facility], [address] [place] [phone] Alk phos 76 40 - 130 Units/L VANESSA [facility] Comment:Testing performed by : [facility], [address] [place] [phone] ALT 19 7 - 55 Units/L VANESSA [facility] Comment:Testing performed by : [facility], [address] [place] [phone] AST 14 10 - 50 Units/L VANESSA [facility] Comment:Testing performed by : [facility], [address] [place] [phone] Blood 06/13/2023 10:2 0 AM CDT 06/13/2023 10:23 AM CDT Burt Dos Santos MD PhD LAB BLOOD ORDERABLES Final Result Performing Organization Address City/[facility]/ZIP Co de Phone Number [facility] Department [place] [address] * Lactate dehydrogenase (LD) (06/13/2023 10:20 AM CDT) Lactate dehydrogenase (LDH) 128 100 - 250 Units/L Comment:Testing performed by : [facility], [address] [place] [phone] Blood 06/13/2023 10:2 0 AM CDT 06/13/2023 10:23 AM CDT Burt Dos Santos MD PhD LAB BLOOD ORDERABLES Final Result Performing Organization Address City/[facility]/ZIP Co de Phone Number CERNER [facility] Department [place] [address] documented in this encounter Visit Diagnoses Diagnosis Hypogammaglobulinemia (HCC) Unspecified hypogammaglobulinemia CLL (chronic lymphocytic leukemia) (HCC) Chronic lymphoid leukemia, without mention of having achieved remission documented in this encounter Additional Health Concerns Infection Onset Date Last Indicated Resolved Time C. difficile Comment:Backloaded December 21, 2010 09/21/2010 09/21/2010 documented as of this encounter Care Teams Pneumatic Jacketer Relationship Specialty Start Date End Date Lenin Ventura MD [email or web address] [place] [address] PCP - General 07/06/16 Lenin Ventura MD [email or web address] [place] [address] 07/06/16 Burt Dos Santos MD PhD [email or web address] [address] Medical Oncologist/Director Of Institutional Sales Medical Oncology 06/16/19 documented as of this encounter
--- OUTSIDE RECORDS SUMMARY | 2024-02-22 08:28 | XMS_ITS | Encounter Summary ---
Author Organization [facility] Address [address] [place] [address] Phone Care Team Providers Care Tube Coverer Name Role Phone Lenin Ventura MD Primary Care Provider [phone] Lenin Ventura MD Unavailable [phone] Burt Dos Santos MD PhD Unavailable [phone] Reason for Visit * Reason Onset Date Comments appt thuy 07/22/2023 Encounter Details Date Type Department Care Team (Late st Contact Info) Description 07/22/2023 Telephone [facility] ([facility]) - [facility] ENT [address] 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 difficile Comment:Backloaded December 21, 2010 09/21/2010 09/21/2010 documented as of this encounter Care Teams Tube Coverer Relationship Specialty Start Date End Date Lenin Ventura MD [address] [employer] [address] [place] [address] PCP - General 07/06/16 Lenin Ventura MD [address] [employer] [address] [place] [address] 07/06/16 Burt Dos Santos MD PhD [address] [address] Medical Oncologist/Hospice Entrance Attendant Medical Oncology 06/16/19 documented as of this encounter
--- OUTSIDE RECORDS SUMMARY | 2024-02-22 08:28 | XMS_ITS | Encounter Summary ---
Author Organization [facility] Address [address] [place] [address] Phone Care Team Providers Care Fabric Lay Out Worker Name Role Phone Lenin Ventura MD Primary Care Provider [phone] Lenin Ventura MD Unavailable [phone] Burt Dos Santos MD PhD Unavailable [phone] Reason for Visit * Oncology (Routine) - Authorized Specialty Diagnoses / Procedures Referred By Contac t Referred To Contact Oncology Diagnoses CLL (chronic lymphocytic leukemia) (HCC) Procedures ONCBCN ARM DRAW APPT ONC LAB ONLY Burt Dos Santos MD PhD Phone: tel: fax: Burt Dos Santos MD PhD Phone: tel: fax: Referral ID Status Reason Start Date Expiration Date Visits Requested Visits Authorized [id number] Authorized Specialty Services Required 07/03/2019 03/12/[phone] Encounter Details Date Type Department Care Team (Late st Contact Info) Description 07/19/2022 12:15 PM CDT Lab [facility] Oncology [facility] 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 difficile Comment:Backloaded December 21, 2010 09/21/2010 09/21/2010 documented as of this encounter Care Teams Fabric Lay Out Worker Relationship Specialty Start Date End Date Lenin Ventura MD [address] [address] PCP - General 07/06/16 Lenin Ventura MD [address] [address] 07/06/16 Burt Dos Santos MD PhD [address] [address] Medical Oncologist/Manager [employer] Medical Oncology 06/16/19 documented as of this encounter
--- OUTSIDE RECORDS SUMMARY | 2024-02-22 08:28 | XMS_ITS | Encounter Summary ---
Author Organization [facility] Address [address] [place] [address] Phone Care Team Providers Care Director Of Assessing Name Role Phone Lenin Ventura MD Primary Care Provider [phone] Lenin Ventura MD Unavailable [phone] Burt Dos Santos MD PhD Unavailable [phone] Reason for Visit * Oncology (Routine) - Authorized Specialty Diagnoses / Procedures Referred By Contac t Referred To Contact Oncology Diagnoses CLL (chronic lymphocytic leukemia) (HCC) Procedures ONCBCN ARM DRAW APPT ONC LAB ONLY Burt Dos Santos MD PhD Phone: tel: fax: Burt Dos Santos MD PhD Phone: tel: fax: Referral ID Status Reason Start Date Expiration Date Visits Requested Visits Authorized [id number] Authorized Specialty Services Required 07/03/2019 03/12/2024 99 [phone] Encounter Details Date Type Department Care Team (Latest Contact Info) Description 04/18/2023 12:00 PM HAND III CUTTER Lab [facility] Oncology [facility] 7th [place] [address] [place] [address] Hypogammaglobulinemia (HCC); CLL (chronic lymphocytic leukemia) (HCC) Social History Tobacco Use Types Packs/Day Years Used Date Smoking Tobacco: Former Smokeless Tobacco: Never Alcohol Use Standard Drinks/Week Comments Not Currently 0 (1 standard drink = 0.6 oz pur e alcohol) Sex and Gender Information Value Date Recorded Sex Assigned at Not on file 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 difficile Comment:Backloaded December 21, 2010 09/21/2010 09/21/2010 documented as of this encounter Care Teams Director Of Assessing Relationship Specialty Start Date End Date Lenin Ventura MD [facility] [address] [address] PCP - General 07/06/16 Lenin Ventura MD [facility] [address] [address] 07/06/16 Burt Dos Santos MD PhD [facility] [address] [address] Medical Oncologist/School Psychological Examiner Medical Oncology 06/16/19 documented as of this encounter
--- OUTSIDE RECORDS SUMMARY | 2024-02-22 08:28 | XMS_ITS | Encounter Summary ---
Author Organization [facility] Address [address] [place] [address] Phone Care Team Providers Care Top Polisher Name Role Phone Lenin Ventura MD Primary Care Provider [phone] Lenin Ventura MD Unavailable [phone] Burt Dos Santos MD PhD Unavailable [phone] Reason for Visit * Oncology (Routine) - Authorized Specialty Diagnoses / Procedures Referred By Contac t Referred To Contact Medical Oncology / Oncology Diagnoses Appt Comment: LAB Procedures RETURN Lenin Ventura MD [address] [facility] [address] [place] [address] Phone: tel: fax: Burt Dos Santos MD PhD [phone] [facility] [place] 8 DIV IM BONE MARROW TRANSPLANT, 5TH, [address] [place] [address] Phone: tel: fax: Referral ID Status Reason Start Date Expiration Date V isits Requested Visits Authorized [id number] Authorized 08/02/2017 03/12/2024 99 99 Encounter Details Date Type Department Care Team (Late st Contact Info) Description 08/23/2022 10:15 AM CDT Office Visit [facility] Bone Marrow Transplant [address] [facility] 7th Floor, [place] [address] Burt Dos Santos MD PhD [address] DIV IM BONE MARROW TRANSPLANT, [address] [place] [address] CLL (chronic lymphocytic leukemia) (HCC) Social History Tobacco Use Types Packs/Day Years Used Date Smoking Tobacco: Former Smokeless Tobacco: Never Alcohol Use Standard Drinks/Week Comments Not Currently 0 (1 standard drink = 0.6 oz pur e alcohol) Sex and Gender Information Value Date Recorded Sex Assigned at Not on file Legal Sex Male 9:45 AM PHLEBOTOMIST ASSOCIATE Gender Identity Not on file Sexual Orientation Not on file documented as of this encounter Last Filed Vital Signs Vital Sign Reading Time Taken Comments Blood Pressure 102/63 08/23/2022 10:05 AM CDT Pulse 84 08/23/2022 10:05 AM CDT Temperature 36.4 ??C (97.6 ??F) 08/23/2022 10:03 AM C DT Respiratory Rate 18 08/23/2022 10:03 AM CDT Oxygen Saturation 97% 08/23/2022 10:05 AM CDT Inhaled Oxygen Concentration - - Weight 122.5 kg (270 lb) 08/23/2022 10:03 AM CDT Height - - Body Mass Index 32.87 08/04/2022 2:02 PM CDT documented in this encounter Progress Notes * Magali Stapleton, TRANSPORTATION CONSULTANT - 08/23/2022 10:15 AM CDT BMT Progress Note Oncology History CLL (chronic lymphocytic leukemia) ([facility]) 07/03/2005 Initial Diagnosis Lymphoma, small lymphocytic; Initial [...] then q2mo x 4; on clinical trial [facility] [id number] --> stable disease on CT; marrow 30-40% [...] He was on bactrim for 3 weeks ending yesterday. The wound is slowly healing. It is less painful. It still drains some serosanguinousdrainage. He denies fevers chills. He has not noticed any new lumps or bumps. His bleeding has improved since changing to acalabrutinib. Outpatient Encounter Medications as of 08/23/2022: tamsulosin (FLOMAX) 0.4 mg extended release capsule, TAKE 1 CAPSULE BY MOUTH EVERY DAY AT BEDTIME, Disp: , Rfl: acalabrutinib maleate (CALQUENCE) 100 mg tablet, Take 1 tablet (100 mg total) by mouth 2 (two) times a day Swallow whole with water and with or without food, Disp: 60 tablet, Rfl: 3 acyclovir (ZOVIRAX) 200 mg capsule, Take 2 capsules (400 mg total) by mouth 2 (two) times a day, Disp: 360 capsule, Rfl: 3 ALPRAZolam (XANAX) 0.25 mg tablet, Take 0.5-1 tablets by mouth 3 (three) times a day as needed for anxiety, Disp: , Rfl: cholecalciferol (cholecalciferol) 1000 unit tablet, Take 1 [...] 100 mg tablet, , Disp: , Rfl: [] sulfamethoxazole-trimethoprim (BACTRIM DS) 800-160 mg per tablet, Take 1 tablet by mouth 2 (two) times a day for 10 days, Disp: 20 tablet, Rfl: 0 traZODone (DESYREL) 50 mg tablet, Take 50 mg by mouth nightly, Disp: , Rfl: triamcinolone (KENALOG) 0.5 % cream, APPLY TOPIALLY TO RASH TWICE DAILY NEEDED FOR UP TO 2 WEEKSAT A TIME, Disp: , Rfl: zinc 50 mg tablet, Take 50 mg by mouth daily, Disp: 30 each, Rfl: 0 [DISCONTINUED] sulfamethoxazole-trimethoprim (BACTRIM DS) 800-160 mg per tablet, Take 1 tablet by mouth 2 (two) times a day for 10 days, Disp: 20 tablet, Rfl: 0 Objective Vitals: BP: 102/63 Temp: 36.4 ??C (97.6 ??F) Temp src: Transdermal Pulse: 84 Resp: 18 SpO2: 97 % Weight: 122.5 kg (270 lb) Physical exam: ECOG PS 0 General: [...] CBC: Lab Results Component Value Date/Time WBC 8.6 08/23/2022 09:55 AM WBC 13.7 (H) 04/10/2019 03:03 PM HGB 13.8 08/23/2022 09:55 AM HGB 14.2 04/10/2019 03:03 PM HCT 41.3 08/23/2022 09:55 AM HCT 41.2 04/10/2019 03:03 PM LABPLAT 255 08/23/2022 09:55 AM LABPLAT 158 04/10/2019 03:03 PM NEUTROABS 3.3 08/23/2022 09:55 AM NEUTROABS 4,590 04/10/2019 03:03 PM CMP: Lab Results Component Value Date/Time SODIUM 136 08/23/2022 09:55 AM POTASSIUM 5.5 (H) 08/23/2022 09:55 AM CO2 27 08/23/2022 09:55 AM BUNSER 20 08/23/2022 09:55 AM GLUCOSE 137 08/23/2022 09:55 AM CREATININE 1.03 08/23/2022 09:55 AM CALCIUM 9.3 08/23/2022 09:55 AM CHLORIDE 103 08/23/2022 09:55 AM ALBUMIN 4.3 08/23/2022 09:55 AM AST 17 08/23/2022 09:55 AM ALT 21 08/23/2022 09:55 AM ALKPHOS 92 08/23/2022 09:55 AM BILITOT 0.4 08/23/2022 09:55 AM PROT 6.4 (L) 08/23/2022 09:55 AM ANIONGAP 6 08/23/2022 09:55 AM LDH: Lab Results Component Value Date/Time LDH 146 08/23/2022 09:55 AM Radiology: No imaging today. Assessment and [...] 2018 and has continued evidence of clinical response.Switched to acalabrutinib because of increased bleeding on the ibrutinib.in May 2022. 1. Recurrent SLL/CLL: He is having more bleeding on the ibrutinib, we switched to acalabrutinib with improvement in the bleeding.. OI prophylaxis include acyclovir. 2. Recurrent sinus infections: Known allergies prior to starting BTK inhibitors, though has continued to have infections, mostly related to his living situation. He received 6 doses of IVIG, last dose was last month. 3. MRSA infection He is s/p 3 weeks of bactrim. Slowly healing. As always, the patient knows to contact our office with any questions or concerns in the interim. documented in this encounter Nursing Notes * Roberta Watkins RN - 08/23/2022 10:15 AM CDT ROV with Magali for CLL. Now on acal and doing well, healing from MRSA. ROV in 3 months documented in this encounter Plan of Treatment Not on file documented as of this encounter Results * Lactate dehydrogenase (LD) (11/22/2022 9:37 AM CDT) Lactate dehydrogenase (LDH) 139 100 - 250 Units/L VANESSA CASTRO Comment:Testing performed by : [facility], [address] [place] [phone] Blood 11/22/2022 9:37 AM CDT 11/22/2022 9:40 AM CDT Burt Dos Santos MD PhD LAB BLOOD ORDERABLES Final Result VANESSA BELLA [facility] [place] [address] * (ABNORMAL) Comprehensive metabolic panel (11/22/2022 9:37 AM CDT) Sodium 139 135 - 145 mmol/L VANESSA [facility] Comment:Testing performed by : [facility], [address] [place] [phone] Potassium, pl 4.7 3.3 - 4.9 mmol/L [facility] Comment:Testing performed by : [facility], [address] [place] [phone] Chloride 104 97 - 110 mmol/L [facility] Comment:Testing performed by : [facility], [address] [place] [phone] CO2 29 22 - 32 mmol/L [facility] Comment:Testing performed by : [facility], [address] [place] [phone] Anion gap 6 2 - 15 mmol/L [facility] Comment:Testing performed by : [facility], [address] [place] [phone] BUN 17 6 - 25 mg/dL [facility]ER[facility] Comment:Testing performed by : [facility], [address] [place] [phone] Creatinine 0.79(L) 0.80 - 1.30 mg/dL VANESSA [facility] Comment:Testing performed by : [facility], [address] [place] [phone] Glucose 110 70 - 199 mg/dL [facility]ER[facility] Comment: Interpretive Data Fasting glucose >/= 126 [...] was last revised 2022. Testing performed by: [facility], [address] [place] [phone] Calcium 9.6 8.5 - 10.3 mg/dL [facility] Comment:Testing performed by : [facility], [address] [place] [phone] Bilirubin, total 0.7 0.1 - 1.2 mg/dL [facility]ER[facility] Comment:Testing performed by : [facility], [address] [place] [phone] Protein, pl 6.3(L) 6.5 - 8.5 g/dL [facility] Comment:Testing performed by : [facility], [address] [place] [phone] Albumin 4.5 3.5 - 5.0 g/dL [facility] Comment:Testing performed by : [facility], [address] [place] [phone] Alk phos 79 40 - 130 Units/L [facility]ER[facility] Comment:Testing performed by : [address] [phone] ALT 20 7 - 55 Units/L [facility] Comment:Testing performed by : [facility], [address] [place] [phone] AST 18 10 - 50 Units/L [facility] Comment:Testing performed by : [facility], [address] [place] [phone] Blood 11/22/2022 9:37 AM CDT 11/22/2022 9:40 AM CDT Burt Dos Santos MD PhD LAB BLOOD ORDERABLES Final Result [facility] [place] [address] * (ABNORMAL) CBC with auto differential (11/22/2022 9:37 AM CDT) WBC 9.6 3.8 - 9.8 K/cumm VANESSA [facility] Comment:Testing performed by : [facility], [address] [place] [phone] Hgb 14.4 13.8 - 17.2 g/dL [facility] Comment:Testing performed by : [facility], [address] [place], [place] [phone] Hct 43.0 40.7 - 50.3 % [facility] Comment:Testing performed by : [facility], [address] [place], [place] [phone] Plt 185 140 - 440 K/cumm [facility] Comment:Testing performed by : [facility], [address] [place], [place] [phone] MPV 10.9(H) 6.8 - 10.4 fL [facility] Comment:Testing performed by : [place] [phone] RBC 4.45(L) 4.50 - 5.70 M/cumm [facility] Comment:Testing performed by : [place] [phone] MCV 96.4 80.0 - 97.6 fL [facility] Comment:Testing performed by : [facility], [address] [place], [place] [phone] MCH 32.3 26.7 - 33.7 pg [facility] Comment:Testing performed by : [place] [phone] MCHC 33.5 32.7 - 35.5 g/dL [facility] Comment:Testing performed by : [place] [phone] RDW CV 14.1 11.8 - 14.6 % [facility] Comment:Testing performed by : [facility], [address] [place], [place] [phone] NRBC abs 0.01 0.00 - 0.01 K/cumm [facility] Comment:Testing performed by : [place] [phone] Blood 11/22/2022 9:37 AM CDT 11/22/2022 9:40 AM CDT Burt Dos Santos MD PhD LAB BLOOD ORDERABLES Final Result [facility] [place] [address] documented in this encounter Visit Diagnoses Diagnosis CLL (chronic lymphocytic leukemia) (HCC) Chronic lymphoid leukemia, without mention of having achieved remission documented in this encounter Historical Medications * This list may reflect changes made after this encounter. tamsulosin (FLOMAX) 0.4 mg extended release capsuleIndications :CLL (chronic lymphocytic leukemia) (HCC) TAKE 1 CAPSULE BY MOUTH EVERY DAY AT BEDTIME 08/10/2022 added in this encounter Orders Appointment Requests Count Last Ordered Date Fi rst Ordered Date ONCBCN CLINIC APPOINTMENT REQUEST 2 023 08/23/2022 ONCBCN LAB APPOINTMENT 1 11/22/2022 documented in this encounter Additional Health Concerns Infection Onset Date Last Indicated Resolved Time C. difficile Comment:Backloaded December 21, 2010 09/21/2010 09/21/2010 MRSA 08/09/2022 08/09/2022 02/05/2023 3:05 AM PHLEBOTOMIST ASSOCIATE documented as of this encounter Care Teams Top Polisher Relationship Specialty Start Date End Date Lenin Ventura MD [address] [address] PCP - General 07/06/16 Lenin Ventura MD [address] [address] 07/06/16 Burt Dos Santos MD PhD [address] [address] Medical Oncologist/Shale Planer Operator Medical Oncology 06/16/19 documented as of this encounter
--- OUTSIDE RECORDS SUMMARY | 2024-02-22 08:28 | XMS_ITS | Encounter Summary ---
Author Organization [facility] Address [address] [place] [address] Phone Care Team Providers Care Infrastructure Project Manager Name Role Phone Lenin Ventura MD Primary Care Provider [phone] Lenin Ventura MD Unavailable [phone] Burt Dos Santos MD PhD Unavailable [phone] Reason for Visit * Oncology (Routine) - Authorized Specialty Diagnoses / Procedures Referred By Contac t Referred To Contact Medical Oncology / Oncology Diagnoses Appt Comment: LAB Procedures RETURN Lenin Ventura MD [address] [facility] [address] [place] [address] Phone: tel: fax: Burt Dos Santos MD PhD [phone] [facility] [place] 8 DIV IM BONE MARROW TRANSPLANT, 5TH, [address] [address] Phone: tel: fax: Referral ID Status Reason Start Date Expiration Date V isits Requested Visits Authorized [id number] Authorized 08/02/2017 03/12/2024 99 99 Encounter Details Date Type Department Care Team (Late st Contact Info) Description 11/22/2022 10:15 AM CDT Office Visit [facility] Bone Marrow Transplant [address] [facility] 7th Floor, [place] [address] Burt Dos Santos MD PhD [address] DIV IM BONE MARROW TRANSPLANT, [address] [place] [address] CLL (chronic lymphocytic leukemia) (HCC) (Primary Dx) Social History Tobacco Use Types Packs/Day Years Used Date Smoking Tobacco: Former Smokeless Tobacco: Never Alcohol Use Standard Drinks/Week Comments Not Currently 0 (1 standard drink = 0.6 oz pur e alcohol) Sex and Gender Information Value Date Recorded Sex Assigned at Not on file Legal Sex Male 9:45 AM SUPERVISOR UNLOADING Gender Identity Not on file Sexual Orientation Not on file documented as of this encounter Last Filed Vital Signs Vital Sign Reading Time Taken Comments Blood Pressure 130/71 11/22/2022 9:51 AM CDT Pulse 79 11/22/2022 9:51 AM CDT Temperature 36.6 ??C (97.8 ??F) 11/22/2022 9:51 AM CD T Respiratory Rate 18 11/22/2022 9:51 AM CDT Oxygen Saturation 98% 11/22/2022 9:51 AM CDT Inhaled Oxygen Concentration - - Weight 124 kg (273 lb 6.4 oz) 11/22/2022 9:51 AM CDT Height - - Body Mass Index 33.28 08/04/2022 2:02 PM CDT documented in this encounter Progress Notes * Burt Dos Santos MD PhD - 11/22/2022 10:15 AM CDT BMT Progress Note Oncology [...] then q2mo x 4; [place] clinical [place] [facility] [id number] --> stable disease on CT; marrow 30-40% [...] lumps or bumps. His bleeding has improved sincechanging to acalabrutinib. He is having some lumbar back pain, chronic, receiving PT. Overall, doing very well. Outpatient Encounter Medications as of 11/22/2022: acyclovir (ZOVIRAX) 200 mg capsule, Take 2 [...] 30 each, Rfl: 0 Objective Vitals: BP: 130/71 Temp: 36.6 ??C (97.8 ??F) Temp src: Transdermal Pulse: 79 Resp: 18 SpO2: 98 % Weight: 124 kg (273 lb 6.4 oz) Physical exam: ECOG PS 0 General: [...] CBC: Lab Results Component Value Date/Time WBC 9.6 11/22/2022 09:37 AM WBC 13.7 (H) 04/10/2019 03:03 PM HGB 14.4 11/22/2022 09:37 AM HGB 14.2 04/10/2019 03:03 PM HCT 43.0 11/22/2022 09:37 AM HCT 41.2 04/10/2019 03:03 PM LABPLAT 185 11/22/2022 09:37 AM LABPLAT 158 04/10/2019 03:03 PM NEUTROABS 4.1 11/22/2022 09:37 AM NEUTROABS 4,590 04/10/2019 03:03 PM CMP: Lab Results Component Value Date/Time SODIUM 139 11/22/2022 09:37 AM POTASSIUM 4.7 11/22/2022 09:37 AM CO2 29 11/22/2022 09:37 AM BUNSER 17 11/22/2022 09:37 AM GLUCOSE 110 11/22/2022 09:37 AM CREATININE 0.79 (L) 11/22/2022 09:37 AM CALCIUM 9.6 11/22/2022 09:37 AM CHLORIDE 104 11/22/2022 09:37 AM ALBUMIN 4.5 11/22/2022 09:37 AM AST 18 11/22/2022 09:37 AM ALT 20 11/22/2022 09:37 AM ALKPHOS 79 11/22/2022 09:37 AM BILITOT 0.7 11/22/2022 09:37 AM PROT 6.3 (L) 11/22/2022 09:37 AM ANIONGAP 6 11/22/2022 09:37 AM LDH: Lab Results Component Value Date/Time LDH 139 11/22/2022 09:37 AM Radiology: No imaging today. Assessment and [...] effcts. OI prophylaxis includeacyclovir. ROV in 3 months 2. Recurrent sinus infections: Known allergies prior to starting BTK inhibitors, though has continued to have infections, mostly related to his living situation. He received 6 doses of IVIG, last dose was last month. We'll check an IgG level today. 3. MRSA infection CTM, especially the new spot. As always, the patient knows to contact our office with any questions or concerns in the interim. documented in this encounter Nursing Notes * Jacquelyn Huffman, ALICIA - 11/22/2022 10:15 AM CDT ROV with Dr. Dos Santos for SLL, on acal 100 BID. Pt s/p IVIG, last July 2022. IgG level pending today. Pt will return in 3 months. documented in this encounter Plan of Treatment Not on file documented as of this encounter Results * Lactate dehydrogenase (LD) (03/21/2023 12:28 PM SUPERVISOR UNLOADING) Pathologist [facility] Lactate dehydrogenase (LDH) 156 100 - 250 Units/L VANESSA CASTRO Comment:Testing performed by : [facility], [address] [place] [phone] Blood 03/21/2023 12:2 8 PM SUPERVISOR UNLOADING 03/21/2023 12:30 PM SUPERVISOR UNLOADING us Magali Stapleton CARE ADVOCATE LAB BLOOD ORDERABLES Final Res ult VANESSA CASTRO [facility] Department [place] [address] * (ABNORMAL) CBC with auto differential (03/21/2023 12:28 PM SUPERVISOR UNLOADING) WBC 12.0(H) 3.8 - 9.8 K/cumm [facility] Comment:Testing performed by : [facility], [address] [place] [address] Hgb 14.6 13.8 - 17.2 g/dL [facility] Comment:Testing performed by : [place] [address] Hct 43.5 40.7 - 50.3 % [facility] Comment:Testing performed by : [facility], [address] [place] [address] Plt 188 140 - 440 K/cumm [facility] Comment:Testing performed by : [place] [address] MPV 10.3 6.8 - 10.4 fL [facility] Comment:Testing performed by : [place] [address] RBC 4.46(L) 4.50 - 5.70 M/cumm [facility] Comment:Testing performed by : [place] [address] MCV 97.3 80.0 - 97.6 fL [facility] Comment:Testing performed by : [place] [address] MCH 32.8 26.7 - 33.7 pg [facility] Comment:Testing performed by : [place] [address] MCHC 33.7 32.7 - 35.5 g/dL [facility] Comment:Testing performed by : [place] [address] RDW CV 14.4 11.8 - 14.6 % [facility] Comment:Testing performed by : [place] [address] NRBC abs 0.01 0.00 - 0.01 K/cumm [facility] Comment:Testing performed by : [place] [address] Blood 03/21/2023 12:2 8 PM SUPERVISOR UNLOADING 03/21/2023 12:30 PM SUPERVISOR UNLOADING us Magali Stapleton CARE ADVOCATE LAB BLOOD ORDERABLES Final Res ult VANESSA CASTRO [facility] Department [place] [address] * Comprehensive metabolic panel (03/14/2023 9:22 AM SUPERVISOR UNLOADING) Sodium 136 135 - 145 mmol/L VANESSA CASTRO Comment:Testing performed by : [facility], [address] [place] [phone] Potassium, pl 4.2 3.3 - 4.9 mmol/L VANESSA CASTRO Comment:Testing performed by : [facility], [address] [place] [phone] Chloride 101 97 - 110 mmol/L VANESSA CASTRO Comment:Testing performed by : [facility], [address] [place] [phone] CO2 26 22 - 32 mmol/L VANESSA CASTRO Comment:Testing performed by : [facility], [address] [place] [phone] Anion gap 9 2 - 15 mmol/L VANESSA [facility]STOR Comment:Testing performed by : [facility], [address] [place] [phone] BUN 22 6 - 25 mg/dL VANESSA CASTRO Comment:Testing performed by : [facility], [address] [place] [phone] Creatinine 0.88 0.80 - 1.30 mg/dL VANESSA CASTRO Comment:Testing performed by : [facility], [address] [place] [phone] Glucose 184 70 - 199 mg/dL VANESSA CASTRO Comment: [...] was last revised 2022. Testing performed by: [facility], [address] [place] [phone] Calcium 9.2 8.5 - 10.3 mg/dL [facility] Comment:Testing performed by : [facility], [address] [place] [phone] Bilirubin, total 0.8 0.1 - 1.2 mg/dL [facility] Comment:Testing performed by : [facility], [address] [place] [phone] Protein, pl 6.5 6.5 - 8.5 g/dL [facility] Comment:Testing performed by : [facility], [address] [place] [phone] Albumin 4.2 3.5 - 5.0 g/dL [facility] Comment:Testing performed by : [facility], [address] [place] [phone] Alk phos 72 40 - 130 Units/L [facility] Comment:Testing performed by : [address] [phone] ALT 17 7 - 55 Units/L [facility] Comment:Testing performed by : [facility], [address] [place] [phone] AST 14 10 - 50 Units/L [facility] Comment:Testing performed by : [facility], [address] [place] [phone] Blood 03/14/2023 9:22 AM SUPERVISOR UNLOADING 03/14/2023 9:24 AM SUPERVISOR UNLOADING us Magali Stapleton CARE ADVOCATE LAB BLOOD ORDERABLES Final Res ult [facility] [place] [address] documented in this encounter Visit Diagnoses Diagnosis CLL (chronic lymphocytic leukemia) (HCC)- Primary Chronic lymphoid leukemia, without mention of having achieved remission documented in this encounter Orders Appointment Requests Count Last Ordered Date Fi rst Ordered Date ONCBCN CLINIC APPOINTMENT REQUEST 2 024 11/22/2022 ONCBCN LAB APPOINTMENT 1 03/14/2023 documented in this encounter Additional Health Concerns Infection Onset Date Last Indicated Resolved Time C. difficile Comment:Backloaded December 21, 2010 09/21/2010 09/21/2010 MRSA 08/09/2022 08/09/2022 02/05/2023 3:05 AM SUPERVISOR UNLOADING documented as of this encounter Care Teams Infrastructure Project Manager Relationship Specialty Start Date End Date Lenin Ventura MD [address] [place] [address] PCP - General 07/06/16 Lenin Ventura MD [address] [address] 07/06/16 Burt Dos Santos MD PhD [address] [address] Medical Oncologist/Duct Maker Medical Oncology 06/16/19 documented as of this encounter
--- OUTSIDE RECORDS SUMMARY | 2024-02-22 08:28 | XMS_ITS | Encounter Summary ---
Author Organization [facility] Address [address] [place] [address] Phone Care Team Providers Care Filenet Developer Name Role Phone Lenin Ventura MD Primary Care Provider [phone] Lenin Ventura MD Unavailable Burt Dos Santos MD PhD Unavailable [phone]- [phone] Reason for Referral * MRI/CAT/PET Scan (Routine) - Closed Specialty Diagnoses / Procedures Referred By Trent delgado Referred To Contact Radiology Diagnoses Acute sinusitis, recurrence not specified, unspecified location Procedures CT Sinus Stealth WO Contrast Hans Amaya MD [address] [place] [address] Phone: tel: fax: [address] [address] Referral ID Status Reason Start Date Expiration Date Visits Re quested Visits Authorized [id number] Closed 06/13/2023 07/13/2023 1 1 Reason for Visit * Reason Comments Sinusitis * Consultation (Routine) - Authorized Specialty Diagnoses / Procedures Referred By Trent delgado Referred To Contact Otolaryngology Diagnoses Acute sinusitis, recurrence not specified, unspecified location Lenin Ventura MD [address] [address] Phone: tel: fax: Cass Olivia MD [address] [place] [address] Phone: tel: fax: Referral ID Status Reason Start Date Expiration Date Visits Requested Visits Authorized [id number] Authorized Specialty Services Required 04/04/2023 05/03/2024 12 12 Encounter Details Date Type Department Care Team (Late st Contact Info) Description 05/29/2023 4:20 PM CDT Office Visit [facility] ENT [address] [facility] Medical Office Building [address] [place] [address] Hans Amaya MD [address] [place] [address] Acute recurrent pansinusitis (Primary Dx); Acute sinusitis, recurrence not specified, unspecified location; CLL (chronic lymphocytic leukemia) (HCC) Social History Tobacco Use Types Packs/Day Years Used Date Smoking Tobacco: Former Smokeless Tobacco: Never Alcohol Use Standard Drinks/Week Comments Not Currently 0 (1 standard drink = 0.6 oz pur e alcohol) Sex and Gender Information Value Date Recorded Sex Assigned at Not on file 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 HISTORY OF PRESENT ILLNESS Mr. Abdullahi comes to clinic today for evaluation of ongoing, severe: sinusitis. He has a history ofCLL (on alcalabrutinib) and was previously admitted 06/2019 with severe left > right pansinusitisc/b mastoiditis for which he received PE tubes with Dr. Olivia. That has been present for 4 year(s), and has associated symptoms including: thick drainage, postnasal drip, nasal congestion, and right-sided epistaxis. He has 1-2 sinus infections per year but they can last for many months. His most recent infection began at the end of 02/2023 and only resolved a few weeks ago. He receiving amoxicillin and multiple courses of levofloxacin. He is receiving IgG infusions as well. He uses Flonase daily with some improvement in his congestion. He uses saline irrigations when his symptoms are severe. He uses CPAP nightly. Past Medical/Surgical History Past Medical History: Diagnosis Date Anxiety and depression CLL (chronic lymphocytic leukemia) (HCC) Thyroid nodule 06/12/2019 Past Surgical History: Procedure Laterality Date BIOPSY LYMPH NODE SUPERFICIAL N/A 12/07/2014 CERVICAL SPINE SURGERY [address] Shaquille King at [facility] LAPAROSCOPIC CHOLECYSTECTOMY 2005 Dr. Kingsley- [facility] LYMPH NODE BIOPSY 2006 Past [...] times a day as needed for anxiety Calquence, acalabrutinib mal, 100 mg tablet Take [...] Cell Culture-based MDCK, Preservative Free, Antibiotic Free, Oxukybhhvgmyn41/14/2019 Influenza, Quadrivalent, High Dose, Preservative Free, Intrr 10/29/2019 Influenza, Trivalent, Intramuscular 01/29/2012 Pfizer SARS-CoV-2 Monovalent Vaccination (12+ Yrs) PURPLE 05/05/2020, 05/30/2020 Review of Systems The 12 point review of systems filled out by the patient on their history form was reviewed today, and will be scanned into the encounter. Physical Exam Vital Signs: Ht 193 cm (6' 4 ) Comment: Pt states Wt 122.5 kg (270 lb) Comment: Pt states BMI 32.87 kg/m?? PHYSICAL EXAMINATION: GENERAL: Well-developed, well-nourished. Voice quality is normal. NEURO/PSYCH: Cranial nerves II- XII are grossly normal. Affect is normal. Alert and oriented. Extraocular muscles are intact. HEAD/FACE: Normocephalic; atraumatic. No facial skin lesions. Facial strength is 5/5 and the face is symmetric. EARS : External ears have no skin lesions. Hearing is grossly intact. Right - EAC patent. TM intact. Middle ear aerated. Left - EAC patent. TM intact. Middle ear aerated. NOSE: External nose has no skin lesions. Anterior rhinoscopy is limited by obstructive anatomy, please see endoscopy below. ORAL CAVITY/ OROPHARYNX: Normal oral vestibule. Oral mucosa is moist without lesions. Tongue and floor of mouth are without lesions or masses. Palate has no lesions and elevates symmetrically. Tonsils are 1+. Oropharynx is clear. NECK: Trachea is midline. Thyroid is normal in size with no apparent nodules. LYMPHATIC: No cervical lymphadenopathy. MUSCULOSKELATAL: Ambulates without difficulty. Neck full range of motion. RESPIRATORY: Breathing comfortably without audible wheeze, stertor or stridor. PROCEDURE: Nasal Endoscopy: Indications: Due to inadequate visualization of the entire nasal cavity on anterior rhinoscopy, rigid nasal endoscopy was undertaken. Description: Topical nasal decongestant and anesthesia was applied, a 30 degree 4mm rigid nasal endoscope was introduced into the right and left nasal cavity. The interior of the nasal cavity from the nostril to the nasopharynx was inspected. The nasal valve areas were examined for abnormalities orcollapse. The inferior, middle, and superior turbinates were evaluated. The middle and superior meatuses, the sphenoethmoid recesses, and the nasopharynx bilaterally were inspected for mucopurulence,polyps, mucosal lesions, and masses. Findings: No masses, polyps, purulence, or drainage noted bilaterally RESULTS: CT Sinus 07/22/2019 IMPRESSION: Right maxillary sinus mucus retention cyst and minimal left maxillary sinus mucosal thickening with left maxillary ostial narrowing. ASSESSMENT & PLAN Problem List Items Addressed This Visit CLL (chronic lymphocytic leukemia) (HCC) (Chronic) Acute recurrent sinusitis - Primary Other Visit Diagnoses Acute sinusitis, recurrence not specified, unspecified location Relevant Orders CT Sinus Stealth WO Contrast We discussed using saline irrigations daily. We will obtain CT Sinus as well given the severity andprolonged duration of his sinus infections. Follow-up after CT Sinus is complete to discuss findings. He is scheduled to see Dr. Olivia in the near future as well. ATTENDING ATTESTATION: I have seen and examined the patient. I performed the endoscopy. I agree with the findings and planof care as documented in the resident's note. Hans Amaya M.D., M.A., F.A.C.S. Barrel Drum Cutter and Thermal Cutting Machine Operator Rhinology and Anterior Skull Base Surgery [facility] [address] [place] [id number] - Office - Appointments - Clinical coordinator (Kate Pompa LPN) - Clinical fax - Academic office fax EMAIL: [email or web address] documented in this encounter Plan of Treatment Not on file documented as of this encounter Results * CT Sinus Stealth [...] are normal. The limited view of the [place] is unremarkable. Postoperative changes from [...] are normal. The limited view of the [place] is unremarkable. Postoperative changes from [...] Amaya MD IMG CT PROCEDURES Final Result documented in this encounter Visit Diagnoses Diagnosis Acute recurrent pansinusitis- Primary Acute sinusitis, recurrence not specified, unspecified location CLL (chronic lymphocytic leukemia) (HCC) Chronic lymphoid leukemia, without mention of having achieved remission Hypogammaglobulinemia (HCC) Unspecified hypogammaglobulinemia CLL (chronic lymphocytic leukemia) (HCC) Chronic lymphoid leukemia, without mention of having achieved remission Acute sinusitis, recurrence not specified, unspecified location documented in this encounter Orders Outpatient Referral Count Last Ordered Date Fir st Ordered Date AMB REFERRAL TO ENT 1 05/29/2023 documented in this encounter Additional Health Concerns Infection Onset Date Last Indicated Resolved Time C. difficile Comment:Backloaded December 21, 2010 09/21/2010 09/21/2010 documented as of this encounter Care Teams Filenet Developer Relationship Specialty Start Date End Date Lenin Ventura MD [address] [place] [address] PCP - General 07/06/16 Lenin Ventura MD [address] [place] [address] 07/06/16 Burt Dos Santos MD PhD [address] [place] [id number] Medical Oncologist/Facs Teacher Medical Oncology 06/16/19 documented as of this encounter
--- OUTSIDE RECORDS SUMMARY | 2024-02-22 08:28 | XMS_ITS | Encounter Summary ---
Author Organization [facility] Address [address] [place] [address] Phone Care Team Providers Care Sheep And Wheat Farmer Name Role Phone Lenin Ventura MD Primary Care Provider [phone] Lenin Ventura MD Unavailable [phone] Burt Dos Santos MD PhD Unavailable [phone] Reason for Visit * Reason Comments Acute recurrent pansinusitis Encounter Details Date Type Department Care Team (Late st Contact Info) Description 08/28/2023 2:20 PM CDT Office Visit [facility] ENT [address] [facility] Medical Office Building [address] [place] [address] Hans Amaya MD [address] [place] [address] CLL (chronic lymphocytic leukemia) (HCC) (Primary Dx); Acute recurrent pansinusitis; Epistaxis Social History Tobacco Use Types Packs/Day Years Used Date Smoking Tobacco: Former Smokeless Tobacco: Never Alcohol Use Standard Drinks/Week Comments Not Currently 0 (1 standard drink = 0.6 oz pur e alcohol) Sex and Gender Information Value Date Recorded Sex Assigned at Not on file 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 HISTORY OF PRESENT ILLNESS Mr. Abdullahi returns to clinic today for evaluation of ongoing, Severe: sinus infections Patient has been doing budesonide irrigations generally once per day. He says that this is improvedhis symptoms though he still has some postnasal drip in the morning. He did have some recent nosebleeds for which he has been using Xlear which seems to have helped. He also recently had the moistureadjusted on his CPAP. Past Medical/Surgical History Past Medical History: Diagnosis Date Anxiety and depression CLL (chronic lymphocytic leukemia) (HCC) Thyroid nodule 06/12/2019 Past Surgical History: Procedure Laterality Date BIOPSY LYMPH NODE SUPERFICIAL N/A 12/07/2014 CERVICAL SPINE SURGERY [address] Shaquille King at [facility] LAPAROSCOPIC CHOLECYSTECTOMY 2006 Dr. Kingsley- [facility] LYMPH NODE BIOPSY 2006 Past Family/Social [...] Sexual Activity Drug use: Never Sexual activity: None Alcohol Use: Not on file Medications/Allergies/Immunizations Current [...] capsule/ampule in 250 mL of saline irrigations ([employer] Sinus Rinse Bottle) and irrigate each nostril [...] Cell Culture-based MDCK, Preservative Free, Antibiotic Free, Notdbulenkipf47/14/2019 Influenza, Quadrivalent, High Dose, Preservative Free, Intrr [...] for mucopurulence,polyps, mucosal lesions, and masses. Findings: Small area of irritation along right anterior septum. No active bleeding. RESULTS: ASSESSMENT & PLAN: Problem List Items Addressed This Visit CLL (chronic lymphocytic leukemia) (HCC) - Primary (Chronic) Acute recurrent sinusitis Epistaxis Continue budesonide irrigations. Can wean as tolerated. Continue Xlear for nosebleeds. ATTENDING ATTESTATION: I have seen and examined the patient. I performed the endoscopy. I agree with the findings and planof care as documented in the resident's note. Hans Amaya M.D., M.A., F.A.C.S. Lead Janitor and Water Systems Designer Rhinology and Anterior Skull Base Surgery [facility] [address] [place] [address] [place] [id number] - Office - Appointments - Clinical coordinator (Kate Pompa LPN) - Clinical fax - Academic office fax EMAIL: [email or web address] documented in this encounter Plan of Treatment Not on file documented as of this encounter Visit Diagnoses Diagnosis CLL (chronic lymphocytic leukemia) (HCC)- Primary Chronic lymphoid leukemia, without mention of having achieved remission Acute recurrent pansinusitis Epistaxis documented in this encounter Additional Health Concerns Infection Onset Date Last Indicated Resolved Time C. difficile Comment:Backloaded December 21, 2010 09/21/2010 09/21/2010 documented as of this encounter Care Teams Sheep And Wheat Farmer Relationship Specialty Start Date End Date Lenin Ventura MD [facility] [address] [address] PCP - General 07/06/16 Lenin Ventura MD [facility] [address] [address] 07/06/16 Burt Dos Santos MD PhD [facility] [address] [address] Medical Oncologist/Ophthalmic Photographer Medical Oncology 06/16/19 documented as of this encounter
--- OUTSIDE RECORDS SUMMARY | 2024-02-22 08:28 | XMS_ITS | Encounter Summary ---
Author Organization [facility] Address [address] [place] [address] Phone Care Team Providers Care Pai Gow Dealer Name Role Phone Lenin Ventura MD Primary Care Provider [phone] Lenin Ventura MD Unavailable [phone] Burt Dos Santos MD PhD Unavailable [phone] Reason for Visit * Episode Based Medications (Routine) - Authorized Specialty Diagnoses / Procedures Referred By Contguillermo t Referred To Contact Diagnoses Hypogammaglobulinemia (HCC) Procedures [place] GAMUNEX-C/GAMMAKED GAMUNEX Burt Dos Santos MD PhD [address] DIV IM BONE MARROW TRANSPLANT[address] [place] [address] Phone: tel: fax: [facility] [address] [facility] 7th [place] [address] Phone: tel: Referral ID Status Reason Start Date Expiration Date V isits Requested Visits Authorized [id number] Authorized 10/19/2019 08/02/2024 1 38 Encounter Details Date Type Department Care Team (Latest Contact Info) Description 06/13/2023 12:00 PM CDT Infusion [facility] Oncology [address] [place] [address] [place] [address] Hypogammaglobulinemia (HCC) (Primary Dx); CLL (chronic lymphocytic leukemia) (HCC) Social History Tobacco Use Types Packs/Day Years Used Date Smoking Tobacco: Former Smokeless Tobacco: Never Alcohol Use Standard Drinks/Week Comments Not Currently 0 (1 standard drink = 0.6 oz pur e alcohol) Sex and Gender Information Value Date Recorded Sex Assigned at Not on file 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 Gender Identity Not on file Sexual Orientation Not on file documented as of this encounter Last Filed Vital Signs Vital Sign Reading Time Taken Comments Blood Pressure 113/71 06/13/2023 3:15 PM CDT Pulse 74 06/13/2023 2:51 PM CDT Temperature 36.8 ??C (98.3 ??F) 06/13/2023 3:15 PM CD T Respiratory Rate 18 06/13/2023 1:15 PM CDT Oxygen Saturation 96% 06/13/2023 2:51 PM CDT Inhaled Oxygen Concentration - - Weight - - Height - - Body Mass Index - - documented in this encounter Nursing Notes * Velvet Santoro RN - 06/13/2023 12:00 PM CDT Oncology Nursing Note [facility] Jeff Abdullahi is a 72 y.o. male who presents for treatment cycle 25, of IVIG. Pre-treatment Nursing Assessment Nursing Assessment LOC: Alert, Awake Fatigue: Occassional Any falls since your last visit?: No Orientation: Oriented x4 Behavior: Calm Speech: Clear Language: No aphasia Vision: At baseline Peripheral Neuropathy: Yes (unchanged) Shortness of Breath?: No Appetite: Good Nausea/Vomiting: No Diarrhea: Yes Constipation: Yes Last BM Date: 06/13/23 Swelling: No Additional Notes: BP: 120/74 Temp: 37.1 ??C (98.8 ??F) Temp src: Transdermal Pulse: 71 Resp: 18 SpO2: 95 % Weight: 124.1 kg (273 lb 9.6 oz) Pain Score: 0 - No pain Treatment Patient: met treatment parameters Pre blood return: Whitney Abdullahi tolerated treatment well. Patient was frequently observed and monitored throughout the administration of their treatment. Additional Notes: Pt denied any issues with this infusion. Post blood return: Brisk IV access post infusion: Other: D5 Patient Education Treatment Education: Information/teaching given to [...] mg 650 mg, oral, Once, On Paloma 06/13/23 at 1230, For 1 dose, Please give 30 minutes prior to IVIG.Indications:Hypogamm aglobulinemia (HCC) Given 06/13/2023 12:07 PM CDT 650 mg diphenhydrAMINE (BENADRYL) tab/cap 25 mg 25 mg, oral, Once, On [place] 06/13/23 at 1230, For 1 dose, Give 30 minutes prior to IVIG.Indications:Hypogamm aglobulinemia (HCC) Given 06/13/2023 12:07 PM CDT 25 mg famotidine (PEPCID) injection 20 mg 20 mg, intravenous, Administer over 2 Minutes, Once, On [place] 06/13/23 at 1230, For 1 doseIndications:Hypogamma globulinemia (HCC) Given 06/13/2023 12:15 PM CDT 20 mg immune globulin (GAMUNEX-C,GAMMAKED) 10 % infusion 35 g 35 g (rounded from 34.48 g = 400 mg/kg ? 86.2 kg [place] weight), intravenous, Once, On [place] 06/13/23 at 1230, For 1 dose, GamuNEX C INITIAL Infusion, [...] every 15 minutes.Indications:Hypog ammaglobulinemia (HCC) Rate/Dose Change 06/13/2023 2:51 PM CDT 259 mL/hr Rate/Dose Change 06/13/2023 2:19 PM CDT 206 mL/ hr Rate/Dose Change 06/13/2023 1:47 PM CDT 156 mL/ hr ondansetron (ZOFRAN) injection 8 mg 8 mg, intravenous, Administer over 2 Minutes, Once, On [place] 06/13/23 at 1230, For 1 doseIndications:Hypogammaglobulinemia (HCC) Given 06/13/2023 12:12 PM CDT 8 mg documented in this encounter Orders Nursing Count Last Ordered Date First Orde red Date ONCBCN NURSING COMMUNICATION [id number] 0 06/13/2023 VITAL SIGNS INTRA-INFUSION 1 06/13/2023 Appointment Requests Count Last Ordered Date Fi rst Ordered Date ONCBCN INFUSION APPT REQUEST 1 06/13/2023 documented in this encounter Additional Health Concerns Infection Onset Date Last Indicated Resolved Time C. difficile Comment:Backloaded December 21, 2010 09/21/2010 09/21/2010 documented as of this encounter Care Teams Pai Gow Dealer Relationship Specialty Start Date End Date Lenin Ventura MD [address] [place] [address] PCP - General 07/06/16 Lenin Ventura MD [address] [place] [address] 07/06/16 Burt Dos Santos MD PhD [address] [place] [id number] Medical Oncologist/Fabric Worker Medical Oncology 06/16/19 documented as of this encounter
--- OUTSIDE RECORDS SUMMARY | 2024-02-22 08:28 | XMS_ITS | Encounter Summary ---
Author Organization [facility] Healthcare Address [address] [place] [address] Care Team Providers Care Bingo Usher Name Role Phone Lenin Ventura MD Primary Care Provider [phone] Lenin Ventura MD Unavailable [phone] Burt Dos Santos MD PhD Unavailable [phone] Reason for Visit * Oncology (Routine) - Authorized Specialty Diagnoses / Procedures Referred By Trent delgado Referred To Contact Oncology Diagnoses CLL (chronic lymphocytic leukemia) (HCC) Procedures ONCBCN ARM DRAW APPT ONC LAB ONLY Burt Dos Santos MD PhD Phone: tel: fax: Burt Dos Santos MD PhD Phone: tel: fax: Referral ID Status Reason Start Date Expiration Date Visits Requested Visits Authorized [id number] Authorized Specialty Services Required 07/03/2019 03/12/2024 99 99 Encounter Details Date Type Department Care Team (Latest Contact Info) Description 09/12/2023 10:00 AM CDT Lab [facility] at [facility] and [facility] [address] [facility] 7th [place] [id number] Hypogammaglobulinemia (HCC); CLL (chronic lymphocytic leukemia) (HCC) Social History Tobacco Use Types Packs/Day Years Used Date Smoking Tobacco: Former Smokeless Tobacco: Never Alcohol Use Standard Drinks/Week Comments Not Currently 0 (1 standard drink = 0.6 oz pur e alcohol) Sex and Gender Information Value Date Recorded Sex Assigned at Not on file 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 Gender Identity Not on file Sexual Orientation Not on file documented as of this encounter Plan of Treatment Not on file documented as of this encounter Procedures Procedure Name Priority Date/Time Associated Diagnosis Comments EGFR Routine 09/12/2023 10:54 AM CDT Hypogammaglobulinem ia (HCC) CLL (chronic lymphocytic leukemia) (HCC) DIFFERENTIAL AUTO Routine 09/12/2023 10: 54 AM CDT Hypogammaglobulinem ia (HCC) CLL (chronic lymphocytic leukemia) (HCC) CBC WITH AUTO DIFFERENTIAL Routine 09/12/2023 10:54 AM CDT Hypogammaglobulinem ia (HCC) CLL (chronic lymphocytic leukemia) (HCC) LACTATE DEHYDROGENASE Routine 09/12/2023 10:54 AM CDT Hypogammaglobulinem ia (HCC) CLL (chronic lymphocytic leukemia) (HCC) IGG Routine 09/12/2023 10:54 AM CDT Hypogammaglobulinem ia (HCC) CLL (chronic lymphocytic leukemia) (HCC) COMPREHENSIVE METABOLIC PANEL Routine 09/12/2023 10:54 AM CDT Hypogammaglobulinem ia (HCC) CLL (chronic lymphocytic leukemia) (HCC) documented in this encounter Results * eGFR (09/12/2023 10:54 AM CDT) eGFR >90 >=60 mL/min/1. 73 [...] last reviewed 2021. Testing performed by: [facility], [address] [place] [phone] Blood 09/12/2023 10:5 4 AM CDT 09/12/2023 10:58 AM CDT Burt Dos Santos MD PhD LAB BLOOD ORDERABLES Final Result [facility] Department [place] [address] * (ABNORMAL) Differential, auto (09/12/2023 10:54 AM CDT) Neutrophil abs 3.8 1.5 - 6.6 K/cumm Comment:Testing performed by : [facility], [address] [place] [phone] Lymphocyte abs 3.5(H) 1.2 - 3.3 K/cumm VANESSA CASTRO Comment:Testing performed by : [facility], [address] [place] [phone] Monocyte abs 0.6 0.2 - 1.2 K/cumm VANESSA CASTRO Comment:Testing performed by : [facility], [address] [place] [phone] Eosinophil abs 0.0 0.0 - 0.5 K/cumm VANESSA CASTRO Comment:Testing performed by : [facility], [address] [place] [phone] Basophil abs 0.1 0.0 - 0.2 K/cumm [facility] Comment:Testing performed by : [facility], [address] [place] [phone] Neutrophil pct 47.8 % CERNER BJ Comment: Interpretive Data Percent cell count reference ranges are not reported, since discordance with absolute values may lead to misinterpretation of CBC data. Current Interpretive Data was last revised on 2017. Testing performed by: [facility], [address] [place] [phone] Lymphocyte pct 44.0 % CERGEOFF BJ Comment: Interpretive Data Percent cell count reference ranges are not reported, since discordance with absolute values may lead to misinterpretation of CBC data. Current Interpretive Data was last revised on 2017. Testing performed by: [facility], [address] [place] [phone] Monocyte pct 7.0 % [facility] Comment:Testing performed by : [facility], [address] [place] [phone] Eosinophil pct 0.3 % [facility] Comment:Testing performed by : [facility], [address] [place] [phone] Basophil pct 0.9 % [facility] Comment:Testing performed by : [facility], [address] [place] [phone] Blood 09/12/2023 10:5 4 AM CDT 09/12/2023 10:58 AM CDT Burt Dos Santos MD PhD LAB BLOOD ORDERABLES Final Result [facility] Department [place] [address] * CBC with auto differential (09/12/2023 10:54 AM CDT) WBC 7.9 3.8 - 9.8 K/cumm Comment:Testing performed by : [facility], [address] [place] [phone] Hgb 15.3 13.8 - 17.2 g/dL CERNER BJ Comment:Testing performed by : [facility], [address] [place], [place] [phone] Hct 44.1 40.7 - 50.3 % CERNER BJ Comment:Testing performed by : [facility], [address] [place] [address] Plt 184 140 - 440 K/cumm CERNER BJ Comment:Testing performed by : [facility], [address] [place] [address] MPV 10.3 6.8 - 10.4 fL CERNER BJ Comment:Testing performed by : [place] [address] RBC 4.60 4.50 - 5.70 M/cumm CERNER BJ Comment:Testing performed by : [place] [address] MCV 95.8 80.0 - 97.6 fL CERNER BJ Comment:Testing performed by : [facility], [address] [place], [place] [phone] MCH 33.4 26.7 - 33.7 pg CERNER BJ Comment:Testing performed by : [place] [address] MCHC 34.8 32.7 - 35.5 g/dL CERNER BJ Comment:Testing performed by : [place] [address] RDW CV 14.1 11.8 - 14.6 % CERNER BJ Comment:Testing performed by : [facility], [address] [place], [place] [phone] NRBC abs 0.01 0.00 - 0.01 K/cumm CERNER BJ Comment:Testing performed by : [place] [address] Blood 09/12/2023 10:5 4 AM CDT 09/12/2023 10:58 AM CDT Burt Dos Santos MD PhD LAB BLOOD ORDERABLES Final Result [facility]ERNER [facility] Department [place] [address] * (ABNORMAL) Comprehensive metabolic panel (09/12/2023 10:54 AM CDT) Sodium 136 135 - 145 mmol/L Comment:Testing performed by : [facility], [address] [place] [phone] Potassium, pl 4.6 3.3 - 4.9 mmol/L VANESSA CASTRO Comment:Testing performed by : [facility], [address] [place] [phone] Chloride 103 97 - 110 mmol/L VANESSA CASTRO Comment:Testing performed by : [facility], [address] [place] [phone] CO2 27 22 - 32 mmol/L CERGEOFF CASTRO Comment:Testing performed by : [facility], [address] [place] [phone] Anion gap 7 2 - 15 mmol/L VANESSA CASTRO Comment:Testing performed by : [facility], [address] [place] [phone] BUN 18 6 - 25 mg/dL [facility] Comment:Testing performed by : [facility], [address] [place] [phone] Creatinine 0.70(L) 0.80 - 1.30 mg/dL [facility]ESSA [facility] Comment:Testing performed by : [address] [phone] Glucose 123 70 - 199 mg/dL [facility]ESSA [facility] Comment: Interpretive Data Fasting glucose >/= 126 [...] last revised 2022. Testing performed by: [facility], [address] [place] [phone] Calcium 9.7 8.5 - 10.3 mg/dL [facility] Comment:Testing performed by : [facility], [address] [place] [phone] Bilirubin, total 0.9 0.1 - 1.2 mg/dL [facility] Comment:Testing performed by : [facility], [address] [place] [phone] Protein, pl 7.1 6.5 - 8.5 g/dL [facility] Comment:Testing performed by : [facility], [address] [place] [phone] Albumin 4.8 3.5 - 5.0 g/dL [facility] Comment:Testing performed by : [facility], [address] [place] [phone] Alk phos 74 40 - 130 Units/L [facility] Comment:Testing performed by : [facility], [address] [place] [phone] ALT 27 7 - 55 Units/L [facility] Comment:Testing performed by : [facility], [address] [place] [phone] AST 20 10 - 50 Units/L [facility] Comment:Testing performed by : [facility], [address] [place] [phone] Blood 09/12/2023 10:5 4 AM CDT 09/12/2023 10:58 AM CDT Burt Dos Santos MD PhD LAB BLOOD ORDERABLES Final Result [facility] Department [place] [address] * Lactate dehydrogenase (LD) (09/12/2023 10:54 AM CDT) Lactate dehydrogenase (LDH) 154 100 - 250 Units/L Comment:Testing performed by : [facility], [address] [place] [phone] Blood 09/12/2023 10:5 4 AM CDT 09/12/2023 10:58 AM CDT us Burt Dos Santos MD PhD LAB BLOOD ORDERABLES Final Result Performing Organization Address City/[facility] Co de Phone Number [facility] Department [place] [address] * IgG (09/12/2023 10:54 AM CDT) Immunoglobulin G 721 700 - 1,600 mg/dL Blood 09/12/2023 10:5 4 AM CDT 09/12/2023 11:12 AM CDT us Burt Dos Santos MD PhD LAB BLOOD ORDERABLES Final Result Performing Organization Address [facility] de Phone Number [facility] Department [place] [address] documented in this encounter Visit Diagnoses Diagnosis Hypogammaglobulinemia (HCC) Unspecified hypogammaglobulinemia CLL (chronic lymphocytic leukemia) (HCC) Chronic lymphoid leukemia, without mention of having achieved remission documented in this encounter Orders Appointment Requests Count Last Ordered Date Fi rst Ordered Date ONCBCN LAB APPOINTMENT 1 09/12/2023 documented in this encounter Additional Health Concerns Infection Onset Date Last Indicated Resolved Time C. difficile Comment:Backloaded December 21, 2010 09/21/2010 09/21/2010 documented as of this encounter Care Teams Bingo Usher Relationship Specialty Start Date End Date Lenin Ventura MD [address] [address] PCP - General 07/06/16 Lenin Ventura MD [address] [address] 07/06/16 Burt Dos Santos MD PhD [address] [address] Medical Oncologist/Skidway Worker Medical Oncology 06/16/19 documented as of this encounter
--- OUTSIDE RECORDS SUMMARY | 2024-02-22 08:28 | XMS_ITS | Encounter Summary ---
Author Organization [facility] Address [address] [place] [address] Phone Care Team Providers Care Meter Calibrator Name Role Phone Lenin Ventura MD Primary Care Provider [phone] Lenin Ventura MD Unavailable [phone] Burt Dos Santos MD PhD Unavailable [phone] Reason for Visit * Oncology (Routine) - Authorized Specialty Diagnoses / Procedures Referred By Contac t Referred To Contact Oncology Diagnoses CLL (chronic lymphocytic leukemia) (HCC) Procedures ONCBCN ARM DRAW APPT ONC LAB ONLY Burt Dos Santos MD PhD Phone: tel: fax: Burt Dos Santos MD PhD Phone: tel: fax: Referral ID Status Reason Start Date Expiration Date Visits Requested Visits Authorized [id number] Authorized Specialty Services Required 07/03/2019 03/12/2024 99 99 Encounter Details Date Type Department Care Team (Latest Contact Info) Description 06/13/2023 10:00 AM CDT Clinical Support [facility] Oncology [facility] 7th [place] [address] [place] [address] Hypogammaglobulinemia (HCC); CLL (chronic lymphocytic leukemia) (HCC) Social History Tobacco Use Types Packs/Day Years Used Date Smoking Tobacco: Former Smokeless Tobacco: Never Alcohol Use Standard Drinks/Week Comments Not Currently 0 (1 standard drink = 0.6 oz pur e alcohol) Sex and Gender Information Value Date Recorded Sex Assigned at Not on file 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 difficile Comment:Backloaded December 21, 2010 09/21/2010 09/21/2010 documented as of this encounter Care Teams Meter Calibrator Relationship Specialty Start Date End Date Lenin Ventura MD [address] [address] PCP - General 07/06/16 Lenin Ventura MD [facility] [address] [address] 07/06/16 Burt Dos Santos MD PhD [facility] [address] [address] Medical Oncologist/Central Service Tech Medical Oncology 06/16/19 documented as of this encounter
--- OUTSIDE RECORDS SUMMARY | 2024-02-22 08:28 | XMS_ITS | Encounter Summary ---
Author Organization [facility] Address [address] [place] [address] Phone Care Team Providers Care Manufacturing Process Engineer Name Role Phone Lenin Ventura MD Primary Care Provider [phone] Lenin Ventura MD Unavailable [phone] Burt Dos Santos MD PhD Unavailable [phone] Reason for Visit * Episode Based Medications (Routine) - Authorized Specialty Diagnoses / Procedures Referred By Contguillermo t Referred To Contact Diagnoses Hypogammaglobulinemia (HCC) Procedures IN GAMUNEX-C/GAMMAKED GAMUNEX Burt Dos Santos MD PhD [address] DIV IM BONE MARROW TRANSPLANT, [address] [place] [address] Phone: tel: fax: [facility] [place] [id number] [facility] Medicine 7th [place] [address] Phone: tel: Referral ID Status Reason Start Date Expiration Date V isits Requested Visits Authorized [id number] Authorized 10/19/2019 08/02/2024 1 38 Encounter Details Date Type Department Care Team (Latest Contact Info) Description 04/18/2023 1:00 PM MANAGER SALES TRAINING Infusion [facility] Oncology [address] [place] [address] Medicine [facility] [place] [address] Hypogammaglobulinemia (HCC) (Primary Dx); CLL (chronic lymphocytic leukemia) (HCC) Social History Tobacco Use Types Packs/Day Years Used Date Smoking Tobacco: Former Smokeless Tobacco: Never Alcohol Use Standard Drinks/Week Comments Not Currently 0 (1 standard drink = 0.6 oz pur e alcohol) Sex and Gender Information Value Date Recorded Sex Assigned at Not on file Legal Sex Male 9:45 AM MANAGER SALES TRAINING Gender Identity Not on file Sexual Orientation Not on file documented as of this encounter Last Filed Vital Signs Vital Sign Reading Time Taken Comments Blood Pressure 138/72 04/18/2023 5:15 PM MANAGER SALES TRAINING Pulse 74 04/18/2023 5:15 PM MANAGER SALES TRAINING Temperature 36.5 ??C (97.7 ??F) 04/18/2023 5:15 PM CS T Respiratory Rate 18 04/18/2023 5:15 PM MANAGER SALES TRAINING Oxygen Saturation 97% 04/18/2023 5:15 PM MANAGER SALES TRAINING Inhaled Oxygen Concentration - - Weight 121.6 kg (268 lb) 04/18/2023 12:25 PM MANAGER SALES TRAINING Height - - Body Mass Index 32.84 03/14/2023 9:44 AM MANAGER SALES TRAINING documented in this encounter Nursing Notes * Milly Barnett, RN - 04/18/2023 1:00 PM CST Oncology Nursing Note [facility] ONCOLOGY Jeff Abdullahi is a 72 y.o. male who presents for treatment 23 of IVIG. Pre-treatment Nursing Assessment Nursing Assessment LOC: Alert, Awake Fatigue: Constant (ongoing, not new or worsening) Any falls since your last visit?: No Orientation: Oriented x4 Behavior: Calm Speech: Clear Language: No aphasia Peripheral Neuropathy: Yes (toes, ongoing) Oral Mucosa Grade: Normal (0) Pt states has potential to be ?: No Shortness of Breath?: No Appetite: Fair (ongoing) Have You Recently Lost Weight Without Trying?: No Have you been eating poorly because of a decreased appetite?: No Malnutrition Screening Tool (MST) Score: 0 Nausea/Vomiting: No Abdomen: Soft Diarrhea: No Constipation: No Skin Condition/Temp: Warm, Dry Swelling: No Additional Notes: NA BP: 138/72 Temp: 36.5 ??C (97.7 ??F) Temp src: Temporal Pulse: 74 Resp: 18 SpO2: 97 % Weight: 121.6 kg (268 lb) Pain Score: 0 - No pain Treatment Patient: met treatment parameters Pre blood return: Brisk Jeff Abdullahi developed nausea with 50 mL remaining of infusion. Infusion paused. Patient states this is normal for him during IVIG treatment. He received zofran + pepcid as pre-meds prior to this infusion because of similar nausea during his previous treatment. Saige Lopez SHARE DAIRY FARMER notified; perNicole SHARE DAIRY FARMER additional pepcid administered. Patient reports nausea resolved; okay to restart treatment at same rate per Saige LOCK. VSS throughout infusion. Patient has no other complaints or questions.Patient's SATHYA Tyrone Osei notified via secure chat. No further orders at this time. Patient was frequently observed and monitored throughout the administration of their treatment. Additional Notes: NA Post blood return: Brisk IV access post infusion: NS Patient Education Treatment Education: Information/teaching given to patient including adverse reaction, symptom management, process and procedure related to today's visit, and when to notify MD Response: Verbalizes understanding Discharge Plan Discharge instructions given to patient. Future appointments given and reviewed with treatment plan. Discharge Mode: Ambulatory Accompanied by: Spouse Discharged To: Home GER SALES TRAINING GER SALES TRAINING documented in this encounter Plan of Treatment [...] mg 650 mg, oral, Once, On [place] 04/18/23 at 1330, For 1 dose, Please give 30 minutes prior to IVIG.Indications:Hypogammaglobulin emia (HCC) Given 04/18/2023 1:49 PM MANAGER SALES TRAINING 650 mg diphenhydrAMINE (BENADRYL) tab/cap 25 mg 25 mg, oral, Once, On [place] 04/18/23 at 1330, For 1 dose, Give 30 minutes prior to IVIG.Indications:Hypogammaglobulin emia (HCC) Given 04/18/2023 1:49 PM MANAGER SALES TRAINING 25 mg famotidine (PEPCID) injection 20 mg 20 mg, intravenous, Administer over 2 Minutes, Once, On [facility] 04/18/23 at 1400, For 1 doseIndications:Hypogammaglobuline maddison (HCC) Given 04/18/2023 5:30 PM MANAGER SALES TRAINING 20 mg Given 04/18/2023 1:50 PM MANAGER SALES TRAINING 20 mg immune globulin (GAMUNEX-C,GAMMAKED) 10 % infusion 35 g 35 g (rounded from 34.48 g = 400 mg/kg ? 86.2 kg [place] weight), intravenous, Once, On [facility] 04/18/23 at 1330, For 1 dose, GamuNEX C INITIAL Infusion, [...] every 15 minutes.Indications:Hypogammagl obulinemia (HCC) Rate/Dose Change 04/18/2023 4:46 PM MANAGER SALES TRAINING 259 mL/hr Rate/Dose Change 04/18/2023 4:11 PM MANAGER SALES TRAINING 207 mL/ hr Rate/Dose Change 04/18/2023 3:40 PM MANAGER SALES TRAINING ondansetron (ZOFRAN) injection 8 mg 8 mg, intravenous, Administer over 2 Minutes, Once, On [place] 04/18/23 at 1400, For 1 doseIndications:Hypogammaglobulinemia (HCC) Given 04/18/2023 1:50 PM MANAGER SALES TRAINING 8 mg documented in this encounter Orders Nursing Count Last Ordered Date First Orde red Date ONCBCN NURSING COMMUNICATION [id number] 1 04/18 ONCBCN NURSING COMMUNICATION [id number] 2 0 04/18/2023 VITAL SIGNS INTRA-INFUSION 1 04/18/2023 Appointment Requests Count Last Ordered Date Fi rst Ordered Date ONCBCN INFUSION APPT REQUEST 1 04/18/2023 documented in this encounter Additional Health Concerns Infection Onset Date Last Indicated Resolved Time C. difficile Comment:Backloaded December 21, 2010 09/21/2010 09/21/2010 documented as of this encounter Care Teams Manufacturing Process Engineer Relationship Specialty Start Date End Date Lenin Ventura MD [address] [address] PCP - General 07/06/16 Lenin Ventura MD [address] [address] 07/06/16 Burt Dos Santos MD PhD [address] [address] Medical Oncologist/Communication Consultant Medical Oncology 06/16/19 documented as of this encounter
--- OUTSIDE RECORDS SUMMARY | 2024-02-22 08:28 | XMS_ITS | Encounter Summary ---
Author Organization [facility] Healthcare Address [address] [place] [address] Care Team Providers Care Lead Medical Technologist Name Role Phone Lenin Ventura MD Primary Care Provider Lenin Ventura MD Unavailable [phone] Burt Dos Santos MD PhD Unavailable [phone] Encounter Details Date Type Department Care Team (Latest Contact Info) Description 08/09/2022 2:08 PM CDT - 08/09/2022 11:59 PM CDT Hospital Encounter [address] [address] Abscess Discharge Disposition: Discharge to home or self care Social History Tobacco Use Types Packs/Day Years Used Date Smoking Tobacco: Former Smokeless Tobacco: Never Alcohol Use Standard Drinks/Week Comments Not Currently 0 (1 standard drink = 0.6 oz pur e alcohol) Sex and Gender Information Value Date Recorded Sex Assigned at Not on file 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 Gender Identity Not on file Sexual Orientation [...] 100 mg tabletIndications :CLL (chronic lymphocytic leukemia) ([facility]) 03/14/2020 traZODone (DESYREL) 50 mg tabletIndications :CLL (chronic lymphocytic leukemia) (HCC) Take 1 tablet (50 mg total) by mouth nightly 12/20/2020 triamcinolone (KENALOG) 0.5 % cream APPLY TOPIALLY TO RASH TWICE DAILY NEEDED FOR UP TO 2 WEEKS AT A TIME 06/02/2022 zinc 50 mg tabletIndications :Zinc deficiency Take 50 mg by mouth daily 30 each 06/25/2019 sulfamethoxazole- trimethoprim (BACTRIM DS) 800-160 mg per tabletIndications :Abscess Take 1 tablet by mouth 2 (two) times a day for 10 days 20 tablet 08/09/2022 3 acalabrutinib maleate (CALQUENCE) 100 mg tabletIndications :Chronic [...] or self care documented in this encounter Miscellaneous Notes * Result Encounter Note - Anadkat, Jun Kevan, MD - 08/09/2022 11:59 PM CDT Culture confirms MRSA Staph infection. Already on correct Abx (Bactrim) documented in this encounter Plan of Treatment Not on file documented as of this encounter Procedures Procedure Name Priority Date/Time Associated Diagnosis Comments AEROBIC AND ANAEROBIC CULTURE AND GRAM STAIN Routine 08/09/2022 2:08 PM CDT Abscess documented in this encounter Results * (ABNORMAL) Aerobic and anaerobic culture and gram stain Abscess Thigh, right (08/09/2022 2:08 PM CDT) Direct Specimen Exam Stain: No polymorphonuclear leukocytes seen. Moderate Gram Positive Coc[facility] Report Final Report: Few Staphylococcus aureus Methicillin resistant (MRSA) by penicillin binding protein 2a (PBP2a) testing. (.) [facility] Organism STAPHY[facility]CCUS AUREUS [facility] Abscess (Thigh, right) 08/09/2022 2:08 PM CDT 08/09/2022 5:04 PM CDT Narrative [facility] - 08/20/2022 10:43 AM CDT Specimen received on an ESwab. Testing performed by [facility] ([phone]) Specimens submitted from normally sterile body sites [...] INTERPRETATION Resistant Staphylococcus aureus Ceftriaxone INTERPRETATION Resistant us Idalia Lopez MD PhD LAB MICROBIOLOGY - GEN ERAL ORDERABLES Final Result [facility] Department [place] [address] documented in this encounter Visit Diagnoses Diagnosis Abscess Cellulitis and abscess of unspecified site documented in this encounter Additional Health Concerns Infection Onset Date Last Indicated Resolved Time C. difficile Comment:Backloaded December 21, 2010 09/21/2010 09/21/2010 documented as of this encounter Care Teams Lead Medical Technologist Relationship Specialty Start Date End Date Lenin Ventura MD [address] [address] [place] [id number] PCP - General 07/06/16 Lenin Ventura MD [address] [employer] [address] [place] [address] 07/06/16 Burt Dos Santos MD PhD [address] [employer] [address] [place] [id number] Medical Oncologist/Sterilisation Technician Medical Oncology 06/16/19 documented as of this encounter
--- OUTSIDE RECORDS SUMMARY | 2024-02-22 08:29 | XMS_ITS | Encounter Summary ---
Author Organization [facility] Healthcare Address [address] [place] [address] Care Team Providers Care Robotic Welding Operator Name Role Phone Lenin Ventura MD Primary Care Provider [phone] Lenin Ventura MD Unavailable [phone] Burt Dos Santos MD PhD Unavailable [phone] Encounter Details Date Type Department Care Team (Latest Contact Info) Description 07/19/2022 9:58 AM CDT - 07/19/2022 11:59 PM CDT Hospital Encounter [facility] ([facility]) [address] [place] [phone] CLL (chronic lymphocytic leukemia) (HCC) Discharge Disposition: Discharge to home or self care Social History Tobacco Use Types Packs/Day Years Used Date Smoking Tobacco: Former Smokeless Tobacco: Never Alcohol Use Standard Drinks/Week Comments Not Currently 0 (1 standard drink = 0.6 oz pur e alcohol) Sex and Gender Information Value Date Recorded Sex Assigned at Not on file Legal Sex Male 9:45 AM SENIOR PROCESS ENGINEER Gender Identity Not on file Sexual Orientation [...] irrigations 3x's daily 30 g 3 06/23/2019 sildenafiL (VIAGRA) 100 mg tabletIndications :CLL (chronic lymphocytic leukemia) ([facility]) 03/14/2020 traZODone (DESYREL) 50 mg tabletIndications :CLL (chronic lymphocytic leukemia) ([facility]) Take 1 tablet (50 mg total) by [...] Priority Date/Time Associated Diagnosis Comments DIFFERENTIAL AUTO STAT 07/19/2022 12: 26 PM CDT CLL (chronic lymphocytic leukemia) ([facility]) CBC WITH AUTO DIFFERENTIAL STAT 07/19/2022 12:26 PM CDT CLL (chronic lymphocytic leukemia) ([facility]) LACTATE DEHYDROGENASE STAT 07/19/2022 12:26 PM CDT CLL (chronic lymphocytic leukemia) (HCC) documented in this encounter Results * (ABNORMAL) Differential, auto (07/19/2022 12:26 PM CDT) Neutrophil abs 4.5 1.8 - 6.6 K/cumm [facility] Comment:Testing performed by : [facility], [address] [place] [phone] Lymphocyte abs 5.7(H) 1.2 - 3.3 K/cumm [facility] Comment:Testing performed by : [facility], [address] [place] [phone] Monocyte abs 0.6 0.2 - 1.2 K/cumm [facility] Comment:Testing performed by : [facility], [address] [place] [phone] Eosinophil abs 0.2 0.0 - 0.5 K/cumm [facility] Comment:Testing performed by : [facility], [address] [place] [phone] Basophil abs 0.0 0.0 - 0.2 K/cumm [facility] Comment:Testing performed by : [facility], [address] [place] [phone] Neutrophil pct 40.6 % [facility] Comment: Interpretive Data Percent cell count reference ranges are not reported, since discordance with absolute values may lead to misinterpretation of CBC data. Current Interpretive Data was last revised on 2017. Testing performed by: [facility], [address] [place] [phone] Lymphocyte pct 52.2 % [facility] Comment: Interpretive Data Percent cell count reference ranges are not reported, since discordance with absolute values may lead to misinterpretation of CBC data. Current Interpretive Data was last revised on 2017. Testing performed by: [facility], [address] [place] [phone] Monocyte pct 5.4 % [facility] Comment:Testing performed by : [facility], [address] [place] [phone] Eosinophil pct 1.4 % [facility] Comment:Testing performed by : [facility], [address] [place] [phone] Basophil pct 0.4 % [facility] Comment:Testing performed by : [facility], [address] [place] [phone] Blood 07/19/2022 12:2 6 PM CDT 07/19/2022 12:27 PM CDT us Magali Stapleton FOOD BEVERAGE SERVER LAB BLOOD ORDERABLES Final Res ult [facility] Department [place] [address] * (ABNORMAL) CBC with auto differential (07/19/2022 12:26 PM CDT) WBC 11.0(H) 3.8 - 9.8 K/cumm [facility] Comment:Testing performed by : [facility], [address] [place] [phone] Hgb 14.7 13.8 - 17.2 g/dL [facility] Comment:Testing performed by : [address] [phone] Hct 43.3 40.7 - 50.3 % [facility] Comment:Testing performed by : [address] [phone] Plt 191 140 - 440 K/cumm [facility] Comment:Testing performed by : [facility], [address] [place] [phone] MPV 10.9(H) 6.8 - 10.4 fL [facility] Comment:Testing performed by : [address] [phone] RBC 4.62 4.50 - 5.70 M/cumm [facility] Comment:Testing performed by : [address] [phone] MCV 93.6 80.0 - 97.6 fL [facility] Comment:Testing performed by : [facility], [address] [place] [phone] MCH 31.8 26.7 - 33.7 pg [facility] Comment:Testing performed by : [facility], [address] [place] [phone] MCHC 34.0 32.7 - 35.5 g/dL [facility] Comment:Testing performed by : [facility], [address] [place] [phone] RDW CV 15.2(H) 11.8 - 14.6 % [facility] Comment:Testing performed by : [facility], [address] [place] [phone] NRBC abs 0.01 0.00 - 0.01 K/cumm [facility] Comment:Testing performed by : [facility], [address] [place] [phone] Blood 07/19/2022 12:2 6 PM CDT 07/19/2022 12:27 PM CDT Magali Velazquezr FOOD BEVERAGE SERVER LAB BLOOD ORDERABLES Final Res ult Performing Organization Address City/[facility]/ZIP Co de Phone Number [facility] [email or web address] [address] * Lactate dehydrogenase (LD) (07/19/2022 12:26 PM CDT) Lactate dehydrogenase (LDH) 150 100 - 250 Units/L [facility] Comment:Testing performed by : [facility], [address] [place] [phone] Blood 07/19/2022 12:2 6 PM CDT 07/19/2022 12:27 PM CDT Magali SJulisa Bradley FOOD BEVERAGE SERVER LAB BLOOD ORDERABLES [place] [address] documented in this encounter Visit Diagnoses Diagnosis CLL (chronic lymphocytic leukemia) (HCC) Chronic lymphoid leukemia, without mention of having achieved remission documented in this encounter Additional Health Concerns Infection Onset Date Last Indicated Resolved Time C. difficile Comment:Backloaded December 21, 2010 09/21/2010 09/21/2010 documented as of this encounter Care Teams Robotic Welding Operator Relationship Specialty Start Date End Date Lenin Ventura MD [address] [place] [phone] PCP - General 07/06/16 Lenin Ventura MD [address] [place] [address] 07/06/16 Burt Dos Santos MD PhD [address] [place] [address] [phone] Medical Oncologist/Lettuce Trimmer Medical Oncology 06/16/19 documented as of this encounter
--- OUTSIDE RECORDS SUMMARY | 2024-02-22 08:29 | XMS_ITS | Encounter Summary ---
Author Organization [facility] Address [address] [place] [address] Phone Care Team Providers Care Consulting Software Engineer Name Role Phone Lenin Ventura MD Primary Care Provider [phone] Lenin Ventura MD Unavailable [phone] Burt Dos Santos MD PhD Unavailable [phone] Reason for Visit * Oncology (Routine) - Authorized Specialty Diagnoses / Procedures Referred By Contac t Referred To Contact Medical Oncology / Oncology Diagnoses Appt Comment: LAB Procedures RETURN Lenin Ventura MD [address] [place] [address] Phone: tel: fax: Burt Dos Santos MD PhD [address] [facility] [place] [address] IM BONE MARROW TRANSPLANT, 5TH[address] [place] [address] Phone: tel: fax: Referral ID Status Reason Start Date Expiration Date V isits Requested Visits Authorized [id number] Authorized 08/02/2017 03/12/2024 99 99 Encounter Details Date Type Department Care Team (Late st Contact Info) Description 02/15/2022 9:30 AM CAUSTIC MIXER Office Visit [facility] Marrow Transplant [address] 7th Floor, [place] [address] Burt Dos Santos MD PhD [address] DIV IM BONE MARROW TRANSPLANT, [address] [place] [address] CLL (chronic lymphocytic leukemia) (CMS/HCC) ([facility]) Social History Tobacco Use Types Packs/Day Years Used Date Smoking Tobacco: Former Smokeless Tobacco: Never Alcohol Use Standard Drinks/Week Comments Not Currently 0 (1 standard drink = 0.6 oz pur e alcohol) Sex and Gender Information Value Date Recorded Sex Assigned at Not on file Legal Sex Male 9:45 AM CAUSTIC MIXER Gender Identity Not on file Sexual Orientation Not on file documented as of this encounter Last Filed Vital Signs Vital Sign Reading Time Taken Comments Blood Pressure 118/74 02/15/2022 9:44 AM CAUSTIC MIXER Pulse 79 02/15/2022 9:44 AM CAUSTIC MIXER Temperature 36.2 ??C (97.1 ??F) 02/15/2022 9:40 AM CS T Respiratory Rate 18 02/15/2022 9:44 AM CAUSTIC MIXER Oxygen Saturation 94% 02/15/2022 9:44 AM CAUSTIC MIXER Inhaled Oxygen Concentration - - Weight 124.6 kg (274 lb 12.8 oz) 02/15/2022 9:40 AM CAUSTIC MIXER Height 187.5 cm (6' 1.82 ) 02/15/2022 9:40 AM CS T Body Mass Index 35.46 02/15/2022 9:40 AM CAUSTIC MIXER documented in this encounter Progress Notes * Josef Wellington MD - 02/15/2022 9:30 AM CST BMT Progress Note Oncology History CLL (chronic lymphocytic leukemia) (CMS/HCC) ([facility]) 07/03/2005 Initial Diagnosis Lymphoma, small [...] then q2mo x 4; on clinical trial [facility] [id number] --> stable disease on CT; marrow 30-40% invovled 09/01/15 05/29/2018 - Targeted Therapy Imbruvica 420mg daily 09/17/[address] Neck - [...] of LAD in keeping with known lymphoma Subjective Interval History: Mr. Abdullahi returns for scheduled follow up. He was last seen in clinic on .Since then, he has continued on ibrutinib, which he tolerates well for the most part without any associated palpitations, arrhythmias, easy bruising or bleeding, or loose stools. However, he is dealing with multiple other issues, including recurrent minor illnesses, namely sinus congestion, for thepast 6-8 weeks. He lives with his , daughter, and 4 year old granddaughter, who is in day care,where at least 4 different viruses are going around. Everyone in the house has been at some point. He missed family Thanksgiving for the first time in many years due to these viral illnesses. The patient sees his PCP regularly, who has prescribed multiple antibiotics, including amoxicillin and azithromycin, neither of which work well for him. He is currently on levaquin, which provides some relief. The higher dose caused insomnia, and as a result, he is taking half the dose. He has been prescribed trazodone for sleep and ativan and low dose xanax to take as needed for sleep and anxiety. He fees quite anxious most of the time, with most worries centered around money. 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 He wakes up at 4:30 am to get ready. He notes intermittent mouth sores, but physica lly, is feeling much better over the past one week. He no longer has a cough, fevers, or chills. Outpatient Encounter Medications as of 02/15/2022: acyclovir (ZOVIRAX) 200 mg capsule, Take 2 [...] mouth daily, Disp: 30 tablet, Rfl: 11 cyanocobalamin (Vitamin B-12) 1,000 mcg tablet, Take 1 tablet (1,000 mcg total) by mouth daily, Disp: 30 tablet, Rfl: 11 fluticasone (FLONASE) 50 mcg/actuation nasal spray, Administer 2 sprays into each nostril daily , Disp: , Rfl: Imbruvica 420 mg tablet, TAKE 1 TABLET BY MOUTH ONCE DAILY WITH A FULL GLASS OF WATER, Disp: 28 tablet, Rfl: 3 magnesium oxide (MAG-OX) 250 mg (150.8 mg elemental) tablet, Take 1 tablet (250 mg total) by mouth daily, Disp: , Rfl: melatonin 5 mg capsule, Take 5 mg by mouth nightly as needed (insomnia), Disp: , Rfl: 0 mupirocin (BACTROBAN) 2 % ointment, Apply 1 inch of ointment to nasal irrigations 3x's daily, Disp:30 g, Rfl: 3 sildenafiL (VIAGRA) 100 mg tablet, , Disp: , Rfl: traZODone (DESYREL) 50 mg tablet, Take 50 mg by mouth nightly, Disp: , Rfl: zinc 50 mg tablet, Take 50 mg by mouth daily, Disp: 30 each, Rfl: 0 [DISCONTINUED] amoxicillin-clavulanate (AUGMENTIN) 875-125 mg per tablet, TK 1 T PO BID (Patient not taking: No sig reported), Disp: , Rfl: [DISCONTINUED] doxycycline 100 mg tablet, Take 100 mg by mouth 2 (two) times a day (Patient not taking: No sig reported), Disp: , Rfl: [DISCONTINUED] DULoxetine DR (CYMBALTA) 30 mg capsule, Take 30 mg by mouth daily (Patient not taking: No sig reported), Disp: , Rfl: [DISCONTINUED] levoFLOXacin (LEVAQUIN) 500 mg tablet, Take 500 mg by mouth daily (Patient not taking: No sig reported), Disp: , Rfl: Objective Vitals: BP: 118/74 Temp: 36.2 ??C (97.1 ??F) Temp src: Transdermal Pulse: 79 Resp: 18 SpO2: 94 % Height: 187.5 cm (6' 1.82 ) Weight: 124.6 kg (274 lb 12.8 oz) Physical exam: ECOG PS [...] Results Component Value Date/Time WBC 13.2 (H) 02/15/2022 09:29 AM WBC 13.7 (H) 04/10/2019 03:03 PM HGB 14.1 02/15/2022 09:29 AM HGB 14.2 04/10/2019 03:03 PM HCT 42.4 02/15/2022 09:29 AM HCT 41.2 04/10/2019 03:03 PM LABPLAT 180 02/15/2022 09:29 AM LABPLAT 158 04/10/2019 03:03 PM NEUTROABS 5.7 02/15/2022 09:29 AM NEUTROABS 4,590 04/10/2019 03:03 PM CMP: Lab Results Component Value Date/Time SODIUM 137 02/15/2022 09:29 AM POTASSIUM 4.8 02/15/2022 09:29 AM CO2 30 02/15/2022 09:29 AM BUNSER 16 02/15/2022 09:29 AM GLUCOSE 101 02/15/2022 09:29 AM CREATININE 0.86 02/15/2022 09:29 AM CALCIUM 9.9 02/15/2022 09:29 AM CHLORIDE 100 02/15/2022 09:29 AM ALBUMIN 4.5 02/15/2022 09:29 AM AST 19 02/15/2022 09:29 AM ALT 24 02/15/2022 09:29 AM ALKPHOS 84 02/15/2022 09:29 AM BILITOT 0.7 02/15/2022 09:29 AM PROT 6.4 (L) 02/15/2022 09:29 AM ANIONGAP 7 02/15/2022 09:29 AM LDH: Lab Results Component Value Date/Time LDH 189 02/15/2022 09:29 AM Radiology: No imaging today. Assessment and Plan: Mr. Abdullahi is a very pleasant 71-year-old gentleman with SLL/CLL who was initially treated [...] and has continued evidence of clinical response. 1. Recurrent SLL/CLL: He continues to tolerate ibrutinib well and will continue on it. OI prophylaxis include acyclovir and low dose levaquin, as prescribed by his PCP. 2. Recurrent sinus infections: Known allergies prior to starting BTK inhibitors, though has continued to have infections, mostly related to his living situation. IVIG has been prohibitively expensive, with an out of pocket cost of $750 per month. We are holding off on therapy now. If the infectioussymptoms worsen, then infusions could be considered due to severely impaired quality of life. IgG levels will be checked at each visit. 3. Anxiety: He may benefit from [facility] counseling if this persists. As always, the patient knows to contact our office with any questions or concerns in the interim. Josef Wellington MD TIC MIXER documented in this encounter Nursing Notes * Roberta Watkins RN - 02/15/2022 9:30 AM CST ROV with DP for SLL. Patient has several things going on in life, IgG pending, infections improving. We will see IgG level, if very low, will consider IVIG. ROV in 3 months. TIC MIXER documented in this encounter Plan of Treatment Not on file documented as of this encounter Results * (ABNORMAL) IgG (11/22/2022 9:37 AM CDT) Pathologist [facility] Immunoglobulin G 365.0(L) 700.0 - 1,600.0 mg/dL [facility] Blood 11/22/2022 9:37 AM CDT 11/22/2022 10:09 AM CDT Burt Dos Santos MD PhD LAB BLOOD ORDERABLES Final Result Performing Organization Address [facility] Co de Phone Number [facility] [place], [place] [id number] * Lactate dehydrogenase (LD) (08/23/2022 9:55 AM CDT) [facility] Lactate dehydrogenase (LDH) 146 100 - 250 Units/L [facility] Comment:Testing performed by : [facility], [address] [place] [phone] Blood 08/23/2022 9:55 AM CDT 08/23/2022 9:59 AM CDT Burt Dos Santos MD PhD LAB BLOOD ORDERABLES Final Result Performing Organization Address [facility] Co de Phone Number [facility] [place], [place] [id number] * (ABNORMAL) Comprehensive metabolic panel (08/23/2022 9:55 AM CDT) [facility] Sodium 136 135 - 145 mmol/L [facility] Comment:Testing performed by : [facility], [address] [place] [phone] Potassium, pl 5.5(H) 3.3 - 4.9 mmol/L [facility] Comment:Testing performed by : [facility], [address] [place] [phone] Chloride 103 97 - 110 mmol/L [facility] Comment:Testing performed by : [facility], [address] [place] [phone] CO2 27 22 - 32 mmol/L [facility] Comment:Testing performed by : [facility], [address] [place] [phone] Anion gap 6 2 - 15 mmol/L [facility] Comment:Testing performed by : [facility], [address] [place] [phone] BUN 20 6 - 25 mg/dL [facility] Comment:Testing performed by : [facility], [address] [place] [phone] Creatinine 1.03 0.80 - 1.30 mg/dL [facility] Comment:Testing performed by : [facility], [address] [place] [phone] Glucose 137 70 - 199 mg/dL [facility] Comment: [...] was last revised 2022. Testing performed by: [facility], [address] [place] [phone] Calcium 9.3 8.5 - 10.3 mg/dL [facility] Comment:Testing performed by : [facility], [address] [place] [phone] Bilirubin, total 0.4 0.1 - 1.2 mg/dL [facility] Comment:Testing performed by : [facility], [address] [place] [phone] Protein, pl 6.4(L) 6.5 - 8.5 g/dL [facility] Comment:Testing performed by : [facility], [address] [place] [phone] Albumin 4.3 3.5 - 5.0 g/dL [facility] Comment:Testing performed by : [facility], [address] [place] [phone] Alk phos 92 40 - 130 Units/L [facility] Comment:Testing performed by : [facility], [address] [place] [phone] ALT 21 7 - 55 Units/L [facility] Comment:Testing performed by : [facility], [address] [place] [phone] AST 17 10 - 50 Units/L [facility] Comment:Testing performed by : [facility], [address] [place] [phone] Blood 08/23/2022 9:55 AM CDT 08/23/2022 9:59 AM CDT Burt Dos Santos MD PhD LAB BLOOD ORDERABLES Final Result [facility] Department [place] [address] * (ABNORMAL) CBC with auto differential (08/23/2022 9:55 AM CDT) WBC 8.6 3.8 - 9.8 K/cumm [facility] Comment:Testing performed by : [facility], [address] [place] [phone] Hgb 13.8 13.8 - 17.2 g/dL [facility] Comment:Testing performed by : [facility], [address] [place] [phone] Hct 41.3 40.7 - 50.3 % [facility] Comment:Testing performed by : [facility], [address] [place] [phone] Plt 255 140 - 440 K/cumm [facility] Comment:Testing performed by : [address] [phone] MPV 10.3 6.8 - 10.4 fL [facility] Comment:Testing performed by : [address] [phone] RBC 4.37(L) 4.50 - 5.70 M/cumm [facility] Comment:Testing performed by : [facility], [address] [place] [phone] MCV 94.5 80.0 - 97.6 fL [facility] Comment:Testing performed by : [facility], [address] [place] [phone] MCH 31.6 26.7 - 33.7 pg [facility] Comment:Testing performed by : [facility], [address] [place] [phone] MCHC 33.5 32.7 - 35.5 g/dL [facility] Comment:Testing performed by : [facility], [address] [place] [phone] RDW CV 15.4(H) 11.8 - 14.6 % [facility] Comment:Testing performed by : [facility], [address] [place] [phone] NRBC abs 0.01 0.00 - 0.01 K/cumm [facility] Comment:Testing performed by : [facility], [address] [place] [phone] Blood 08/23/2022 9:55 AM CDT 08/23/2022 9:59 AM CDT Burt Dos Santos MD PhD LAB BLOOD ORDERABLES Final Result [facility] Department [place] [address] documented in this encounter Visit Diagnoses Diagnosis CLL (chronic lymphocytic leukemia) (HCC) Chronic lymphoid leukemia, without mention of having achieved remission documented in this encounter Discontinued Medications Medication Sig Discontinue Reason Start Date End Da te amoxicillin-clavulanate (AUGMENTIN) 875-125 mg per tablet TK 1 T PO BID Therapy completed 12/03/2019 02/12/2022 doxycycline 100 mg tabletIndications:CLL (chronic lymphocytic leukemia) (HCC) Take 100 mg by mouth 2 (two) times a day Therapy completed 04/11/2020 02/12/[address] (CYMBALTA) 30 mg capsuleIndications:CLL (chronic lymphocytic leukemia) (HCC) Take 30 mg by mouth daily Therapy completed 07/18/2020 02/12/2022 levoFLOXacin (LEVAQUIN) 500 mg tabletIndications:CLL (chronic lymphocytic leukemia) (HCC) Take 500 mg by mouth daily Therapy completed 08/15/2020 02/12/2022 documented as of this encounter Orders Appointment Requests Count Last Ordered Date Fi rst Ordered Date ONCBCN CLINIC APPOINTMENT REQUEST 2 023 02/15/2022 ONCBCN LAB APPOINTMENT 1 05/24/2022 documented in this encounter Additional Health Concerns Infection Onset Date Last Indicated Resolved Time C. difficile Comment:Backloaded December 21, 2010 09/21/2010 09/21/2010 documented as of this encounter Care Teams Consulting Software Engineer Relationship Specialty Start Date End Date Lenin Ventura MD [address] [address] PCP - General 07/06/16 Lenin Ventura MD [address] [address] 07/06/16 Burt Dos Santos MD PhD [address] [address] Medical Oncologist/[facility] 06/16/19 documented as of this encounter
--- OUTSIDE RECORDS SUMMARY | 2024-02-22 08:29 | XMS_ITS | Encounter Summary ---
Author Organization [facility] Healthcare Address [address] [place] [address] Care Team Providers Care Muffler Hand Name Role Phone Lenin Ventura MD Primary Care Provider [phone] Lenin Ventura MD Unavailable [phone] Burt Dos Santos MD PhD Unavailable [phone] Encounter Details Date Type Department Care Team (Latest Contact Info) Description 02/28/2022 10:13 AM MANAGER FILTER - 02/28/2022 11:59 PM MANAGER FILTER Hospital Encounter [facility] ([facility]) [address] [place] [phone] CLL (chronic lymphocytic leukemia) ([facility]) ([facility]); Hypogammaglobulinem ia ([facility]) ([facility]) Discharge Disposition: Discharge to home or self care Social History Tobacco Use Types Packs/Day Years Used Date Smoking Tobacco: Former Smokeless Tobacco: Never Alcohol Use Standard Drinks/Week Comments Not Currently 0 (1 standard drink = 0.6 oz pur e alcohol) Sex and Gender Information Value Date Recorded Sex Assigned at Not on file Legal Sex Male 9:45 AM MANAGER FILTER Gender Identity Not on file Sexual Orientation Not on file documented as of this encounter Medications at Time of Discharge ALPRAZolam (XANAX) 0.25 mg tablet Take 0.5-1 tablets (0.125-0.25 mg total) by mouth 3 (three) times a day as needed for anxiety 05/18/2019 fluticasone (FLONASE) 50 mcg/actuation nasal spray Administer [...] tabletIndications :CLL (chronic lymphocytic leukemia) (HCC) 03/14/2020 traZODone (DESYREL) 50 mg tabletIndications :CLL (chronic lymphocytic leukemia) (HCC) Take 1 tablet (50 mg total) by mouth nightly 12/20/2020 zinc 50 mg tabletIndications :Zinc deficiency Take 50 mg by mouth daily 30 each 06/25/2019 acyclovir (ZOVIRAX) 200 mg capsuleIndication s:Prophylaxis, Medical Take 2 capsules (400 mg total) by mouth 2 (two) times a day 360 capsule 3 09/01/2021 3 Imbruvica 420 mg tabletIndications :CLL (chronic lymphocytic leukemia) (HCC) TAKE 1 TABLET BY MOUTH ONCE DAILY WITH A FULL GLASS OF WATER 28 tablet 3 01/22/2022 3 documented as of this encounter Discharge Disposition Disposition Code Departure Means Destination Discharge to home or self care documented in this encounter Plan of Treatment Not on file documented as of this encounter Procedures Procedure Name Priority Date/Time Associated Diagnosis Comments EGFR STAT 02/28/2022 1:07 PM MANAGER FILTER CLL (chronic lymphocytic leukemia) (CMS/HCC) (HCC) Hypogammaglobulinem ia (CMS/HCC) (HCC) DIFFERENTIAL AUTO STAT 02/28/2022 1:0 7 PM MANAGER FILTER CLL (chronic lymphocytic leukemia) (CMS/HCC) (HCC) Hypogammaglobulinem ia (CMS/HCC) (HCC) CBC WITH AUTO DIFFERENTIAL STAT 02/28/2022 1:07 PM MANAGER FILTER CLL (chronic lymphocytic leukemia) (CMS/HCC) (HCC) Hypogammaglobulinem ia (CMS/HCC) (HCC) COMPREHENSIVE METABOLIC PANEL STAT 02/28/2022 1:07 PM MANAGER FILTER CLL (chronic lymphocytic leukemia) (CMS/HCC) (HCC) Hypogammaglobulinem ia (CMS/HCC) (HCC) documented in this encounter Results * eGFR (02/28/2022 1:07 PM MANAGER FILTER) eGFR >90 90 - 130 mL/min/1. 73 m2 [facility]SA CASTRO Comment: Interpretive [...] was last reviewed 2021. Testing performed by: [facility], [address] [place] [phone] Blood 02/28/2022 1:07 PM MANAGER FILTER 02/28/2022 1:08 PM MANAGER FILTER Burt Dos Santos MD PhD LAB BLOOD ORDERABLES Final Result VANESSA CASTRO [facility] [place] [address] * (ABNORMAL) Differential, auto (02/28/2022 1:07 PM MANAGER FILTER) Neutrophil abs 4.9 1.8 - 6.6 K/cumm CERNER BJ Comment:Testing performed by : [facility], [address] [place] [phone] Lymphocyte abs 5.7(H) 1.2 - 3.3 K/cumm CERNER BJ Comment:Testing performed by : [facility], [address] [place] [phone] Monocyte abs 0.7 0.2 - 1.2 K/cumm CERNER BJ Comment:Testing performed by : [facility], [address] [place] [phone] Eosinophil abs 0.1 0.0 - 0.5 K/cumm CERNER BJ Comment:Testing performed by : [facility], [address] [place] [phone] Basophil abs 0.1 0.0 - 0.2 K/cumm CERNER BJ Comment:Testing performed by : [address] [phone] Neutrophil pct 42.4 % CERNER BJ Comment: Interpretive Data Percent cell count reference ranges are not reported, since discordance with absolute values may lead to misinterpretation of CBC data. Current Interpretive Data was last revised on 2017. Testing performed by: [facility], [address] [place] [phone] Lymphocyte pct 50.0 % CERNER BJ Comment: Interpretive Data Percent cell count reference ranges are not reported, since discordance with absolute values may lead to misinterpretation of CBC data. Current Interpretive Data was last revised on 2017. Testing performed by: [address] [phone] Monocyte pct 6.3 % CERNER [facility] Comment:Testing performed by : [address] [address] Eosinophil pct 0.9 % CERNER [facility] Comment:Testing performed by : [facility], [address] [place] [phone] Basophil pct 0.4 % CERNER BJ Comment:Testing performed by : [facility], [address] [place] [phone] Blood 02/28/2022 1:07 PM MANAGER FILTER 02/28/2022 1:08 PM MANAGER FILTER Burt Dos Santos MD PhD LAB BLOOD ORDERABLES Final Result [facility] Department [place] [address] * (ABNORMAL) CBC with auto differential (02/28/2022 1:07 PM MANAGER FILTER) WBC 11.5(H) 3.8 - 9.8 K/cumm CEREGOFF BJ Comment:Testing performed by : [facility], [address] [place] [phone] Hgb 13.7(L) 13.8 - 17.2 g/dL CERGEOFF BJ Comment:Testing performed by : [facility], [address] [place] [phone] Hct 40.2(L) 40.7 - 50.3 % CERGEOFF BJ Comment:Testing performed by : [address] [address] Plt 151 140 - 440 K/cumm CERGEOFF BJ Comment:Testing performed by : [facility], [address] [place] [phone] MPV 11.4(H) 6.8 - 10.4 fL CERGEOFF BJ Comment:Testing performed by : [address] [address] RBC 4.21(L) 4.50 - 5.70 M/cumm CERGEOFF BJ Comment:Testing performed by : [address] [address] MCV 95.5 80.0 - 97.6 fL CERGEOFF BJ Comment:Testing performed by : [facility], [address] [place] [phone] MCH 32.5 26.7 - 33.7 pg VANESSA CASTRO Comment:Testing performed by : [facility], [address] [place] [phone] MCHC 34.1 32.7 - 35.5 g/dL VANESSA CASTRO Comment:Testing performed by : [facility], [address] [place] [phone] RDW CV 15.3(H) 11.8 - 14.6 % VANESSA CASTRO Comment:Testing performed by : [facility], [address] [place] [phone] NRBC abs 0.01 0.00 - 0.01 K/cumm VANESSA CASTRO Comment:Testing performed by : [facility], [address] [place] [phone] Blood 02/28/2022 1:07 PM MANAGER FILTER 02/28/2022 1:08 PM MANAGER FILTER Burt Dos Santos MD PhD LAB BLOOD ORDERABLES Final Result [facility] Department [place] [address] * (ABNORMAL) Comprehensive metabolic panel (02/28/2022 1:07 PM MANAGER FILTER) Sodium 138 135 - 145 mmol/L [facility] Comment:Testing performed by : [facility], [address] [place] [phone] Potassium, pl 4.5 3.3 - 4.9 mmol/L VANESSA CASTRO Comment:Testing performed by : [facility], [address] [place] [phone] Chloride 104 97 - 110 mmol/L VANESSA CASTRO Comment:Testing performed by : [facility], [address] [place] [phone] CO2 28 22 - 32 mmol/L VANESSA CASTRO Comment:Testing performed by : [facility], [address] [place] [phone] Anion gap 6 2 - 15 mmol/L VANESSA CASTRO Comment:Testing performed by : [facility], [address] [place] [phone] BUN 12 8 - 25 mg/dL CERNER BJ Comment:Testing performed by : [facility], [address] [place] [phone] Creatinine 0.81 0.80 - 1.30 mg/dL CERNER BJ Comment:Testing performed by : [address] [address] Glucose 102 70 - 199 mg/dL CERNER BJ Comment: [...] classification and Diagnosis of Diabetes Diabetes Care 2017;40 (Suppl. 1):S11. Current interpretive data was last revised 2017. Testing performed by: [facility], [address] [place] [phone] Calcium 9.3 8.5 - 10.3 mg/dL CERNER BJ Comment:Testing performed by : [address] [address] Bilirubin, total 0.7 0.1 - 1.2 mg/dL CERNER BJ Comment:Testing performed by : [address] [address] Protein, pl 6.1(L) 6.5 - 8.5 g/dL CERNER BJ Comment:Testing performed by : [address] [address] Albumin 4.3 3.5 - 5.0 g/dL CERNER BJ Comment:Testing performed by : [address] [address] Alk phos 77 40 - 130 Units/L CERNER BJ Comment:Testing performed by : [address] [address] ALT 29 7 - 55 Units/L CERNER BJ Comment:Testing performed by : [facility], [address] [facility] [address] AST 21 10 - 50 Units/L [facility] Comment:Testing performed by : [facility], [address] [facility] [address] Blood 02/28/2022 1:07 PM MANAGER FILTER 02/28/2022 1:08 PM MANAGER FILTER Burt Dos Santos MD PhD LAB BLOOD ORDERABLES Final Result [facility] Department [place] [address] documented in this encounter Visit Diagnoses Diagnosis CLL (chronic lymphocytic leukemia) (HCC) Chronic lymphoid leukemia, without mention of having achieved remission Hypogammaglobulinemia (HCC) Unspecified hypogammaglobulinemia documented in this encounter Additional Health Concerns Infection Onset Date Last Indicated Resolved Time C. difficile Comment:Backloaded December 21, 2010 09/21/2010 09/21/2010 documented as of this encounter Care Teams Muffler Hand Relationship Specialty Start Date End Date Lenin Ventura MD [address] [address] PCP - General 07/06/16 Lenin Ventura MD [address] [address] 07/06/16 Burt Dos Santos MD PhD [address] [address] Medical Oncologist/Metal Tile Setter Medical Oncology 06/16/19 documented as of this encounter
--- OUTSIDE RECORDS SUMMARY | 2024-02-22 08:29 | XMS_ITS | Encounter Summary ---
Author Organization [facility] Address [address] [place] [address] Phone Care Team Providers Care Full Time Name Role Phone Lenin Ventura MD Primary Care Provider [phone] Lenin Ventura MD Unavailable [phone] Burt Dos Santos MD PhD Unavailable [phone] Reason for Visit * Oncology (Routine) - Authorized Specialty Diagnoses / Procedures Referred By Contac t Referred To Contact Oncology Diagnoses CLL (chronic lymphocytic leukemia) (HCC) Procedures ONCBCN ARM DRAW APPT ONC LAB ONLY Burt Dos Santos MD PhD Phone: tel: fax: Burt Dos Santos MD PhD Phone: tel: fax: Referral ID Status Reason Start Date Expiration Date Visits Requested Visits Authorized [id number] Authorized Specialty Services Required 07/03/2019 03/12/2024 99 [phone] Encounter Details Date Type Department Care Team (Late st Contact Info) Description 06/21/2022 12:15 PM CDT Lab [facility] Oncology [facility] 7th [place] [address] [place] [address] CLL (chronic lymphocytic leukemia) (HCC) Social History Tobacco Use Types Packs/Day Years Used Date Smoking Tobacco: Former Smokeless Tobacco: Never Alcohol Use Standard Drinks/Week Comments Not Currently 0 (1 standard drink = 0.6 oz pur e alcohol) Sex and Gender Information Value Date Recorded Sex Assigned at Not on file Legal Sex Male 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 difficile Comment:Backloaded December 21, 2010 09/21/2010 09/21/2010 documented as of this encounter Care Teams Full Time Relationship Specialty Start Date End Date Lenin Ventura MD [address] [employer] [address] [address] PCP - General 07/06/16 Lenin Ventura MD [address] [address] 07/06/16 Burt Dos Santos MD PhD [address] [address] Medical Oncologist/Programming Instructor Medical Oncology 06/16/19 documented as of this encounter
--- OUTSIDE RECORDS SUMMARY | 2024-02-22 08:29 | XMS_ITS | Encounter Summary ---
Author Organization [facility] Address [address] [place] [address] Phone Care Team Providers Care Rn Dermatology Name Role Phone Lenin Ventura MD Primary Care Provider [phone] Lenin Ventura MD Unavailable [phone] Burt Dos Santos MD PhD Unavailable [phone]- [phone] Reason for Visit * Oncology (Routine) - Authorized Specialty Diagnoses / Procedures Referred By Contac t Referred To Contact Oncology Diagnoses CLL (chronic lymphocytic leukemia) (HCC) Procedures ONCBCN ARM DRAW APPT ONC LAB ONLY Burt Dos Santos MD PhD Phone: tel: fax: Burt Dos Santos MD PhD Phone: tel: fax: Referral ID Status Reason Start Date Expiration Date Visits Requested Visits Authorized [id number] Authorized Specialty Services Required 07/03/2019 03/12/2024 99 99 Encounter Details Date Type Department Care Team (Late st Contact Info) Description 05/24/2022 9:00 AM CDT Lab [facility] Oncology 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 difficile Comment:Backloaded December 21, 2010 09/21/2010 09/21/2010 documented as of this encounter Care Teams Rn Dermatology Relationship Specialty Start Date End Date Lenin Ventura MD [facility] [address] [address] PCP - General 07/06/16 Lenin Ventura MD [facility] [address] [address] 07/06/16 Burt Dos Santos MD PhD [facility] [address] [address] Medical Oncologist/Sample Steamer Medical Oncology 06/16/19 documented as of this encounter
--- OUTSIDE RECORDS SUMMARY | 2024-02-22 08:29 | XMS_ITS | Encounter Summary ---
Author Organization [facility] Address [address] [place] [address] Phone Care Team Providers Care Grain Elevator Operator Name Role Phone Lenin Ventura MD Primary Care Provider [phone] Lenin Ventura MD Unavailable [phone] Burt Dos Santos MD PhD Unavailable [phone] Reason for Visit * Episode Based Medications (Routine) - Authorized Specialty Diagnoses / Procedures Referred By Contguillermo t Referred To Contact Diagnoses Hypogammaglobulinemia (HCC) Procedures UT GAMUNEX-C/GAMMAKED GAMUNEX Burt Dos Santos MD PhD [address] DIV IM BONE MARROW TRANSPLANT[address] [place] [address] Phone: tel: fax: [facility] [place] [address] [facility] 7th [place] [address] Phone: tel: Referral ID Status Reason Start Date Expiration Date V isits Requested Visits Authorized [id number] Authorized 10/19/2019 08/02/2024 1 38 Encounter Details Date Type Department Care Team (Late st Contact Info) Description 04/25/2022 1:30 PM EBAY RESELLER Infusion [facility] Oncology [address] [place] [address] [place] [address] CLL (chronic lymphocytic leukemia) (CMS/HCC) (HCC) (Primary Dx); Hypogammaglobulinemia (CMS/HCC) (HCC) Social History Tobacco Use Types Packs/Day Years Used Date Smoking Tobacco: Former Smokeless Tobacco: Never Alcohol Use Standard Drinks/Week Comments Not Currently 0 (1 standard drink = 0.6 oz pur e alcohol) Sex and Gender Information Value Date Recorded Sex Assigned at Not on file Legal Sex Male 9:45 AM EBAY RESELLER Gender Identity Not on file Sexual Orientation Not on file documented as of this encounter Last Filed Vital Signs Vital Sign Reading Time Taken Comments Blood Pressure 144/72 04/25/2022 4:07 PM EBAY RESELLER Pulse 72 04/25/2022 4:07 PM EBAY RESELLER Temperature 36.8 ??C (98.3 ??F) 04/25/2022 4:07 PM CS T Respiratory Rate 18 04/25/2022 4:07 PM EBAY RESELLER Oxygen Saturation 98% 04/25/2022 4:07 PM EBAY RESELLER Inhaled Oxygen Concentration - - Weight 125.2 kg (276 lb) 04/25/2022 1:43 PM EBAY RESELLER Height - - Body Mass Index 35.61 02/15/2022 9:40 AM EBAY RESELLER documented in this encounter Nursing Notes * Madie Jenkins - 04/25/2022 1:30 PM CST Oncology Nursing Note [facility] Jeff Abdullahi is a 71 y.o. male who presents for IVIG. Pre-treatment Nursing Assessment Nursing Assessment Appetite: Good Diarrhea: No Constipation: No Last BM Date: 04/25/22 Existing Patients: Any falls since your last visit?: No Fatigue: Occassional Mouth Sores: No Nausea/Vomiting: No Neurological symptoms: No Pain: No Peripheral Neuropathy: Yes (toes, unchanged) Pt states has potential to be ?: N/A Shortness of Breath?: No Skin Condition/Temp: Warm, Dry, No swelling Oral Mucosa Grade: Normal (0) Swelling: No BP: 119/74 Temp: 36.8 ??C (98.2 ??F) Temp src: Transdermal Pulse: 76 Resp: 16 SpO2: 97 % Weight: 125.2 kg (276 lb) Pain Score: 0 - No pain Treatment Patient: met treatment parameters Pre blood return: Brisk Jeff Abdullahi tolerated treatment well. Patient was frequently observed and monitored throughout the administration of their treatment. Additional Notes: Has return appts. Post blood return: Brisk IV access post infusion: Other: D5W Patient Education Treatment Education: Information/teaching given to patient including process and procedure related to today's visit Response: Verbalizes understanding Discharge Plan Discharge instructions given to patient. Future appointments given and reviewed with treatment plan. Discharge Mode: Ambulatory Accompanied by: Self Discharged To: Home RESELLER documented in this encounter Plan of Treatment Not on file documented as of this encounter Visit Diagnoses Diagnosis CLL (chronic lymphocytic leukemia) (HCC)- Primary Chronic lymphoid leukemia, without mention of having achieved remission Hypogammaglobulinemia (HCC) Unspecified hypogammaglobulinemia documented in this encounter Administered Medications Inactive Administered Medications - up to 3 most recent administrations Medication Order MAR Action Action Date Dose Rate Site acetaminophen (TYLENOL) tablet 650 mg 650 mg, oral, Once, On Sat04/25/22 at 1430, For 1 dose, Please give 30 minutes prior to IVIG.Indications:Hypogamm aglobulinemia (HCC) Given 04/25/2022 1:57 PM EBAY RESELLER 650 mg dextrose 5% infusion 20 mL/hr, intravenous, As needed, As needed- back up fluids for infusions, Starting on Sat04/25/22 at 1359Indications:Hypogamma globulinemia (HCC),CLL (chronic lymphocytic leukemia) (HCC) New Bag 04/25/2022 1:51 PM EBAY RESELLER 20 mL/hr 20 mL/hr diphenhydrAMINE (BENADRYL) tab/cap 25 mg 25 mg, oral, Once, On Sat04/25/22 at 1430, For 1 dose, Give 30 minutes prior to IVIG.Indications:Hypogamm aglobulinemia (HCC) Given 04/25/2022 1:57 PM EBAY RESELLER 25 mg immune globulin (GAMUNEX-C,GAMMAKED) 10 % infusion 35 g 35 g (rounded from 32.72 g = 400 mg/kg ? 81.8 kg [place] weight), intravenous, Once, On Sat04/25/22 at 1430, For 1 dose, GamuNEX C SUBSEQUENT Infusion, 15 Minute Titration Patient Weight: 81.8 kg Initiate Infusion at 0.6 mL/kg/hr. If no reaction, may increase rate by 0.6 mL/kg/hr every 15 minutes, to a max of 4.8 mL/kg/hr 1 . 0.6 mL/kg/hr = Infuse 12 mL over 15 minutes (Rate = 49 mL/hr) 2 . 1.2 mL/kg/hr = Infuse 25 mL over 15 minutes (Rate = 98 mL/hr) 3 . 1.8 mL/kg/hr = Infuse 37 mL over 15 minutes (Rate = 147 mL/hr) 4 . 2.4 mL/kg/hr = Infuse 49 mL over 15 minutes (Rate = 196 mL/hr) 5 . 3.0 mL/kg/hr = Infuse 61 mL over 15 minutes (Rate = 245 mL/hr) 6 . 3.6 mL/kg/hr = Infuse 74 mL over 15 minutes (Rate = 294 mL/hr) 7 . 4.2 mL/kg/hr = Infuse 86 mL over 15 minutes (Rate = 344 mL/hr) 8 . 4.8 mL/kg/hr for remainder (Rate = 393 mL/hr) Administer over: 1 mg/kg/min x 30 minutes, then 2 mg/kg/min x 30 minutes, then 4 mg/kg/min x 30 minutes, then 6 mg/kg/min x 30 minutes, then 8 mg/kg/min until infusion complete. If initial titration was well tolerated, subsequent infusions may be titrated every 15 minutes.Indications:Hypog ammaglobulinemia (HCC) Rate/Dose Change 04/25/2022 4:07 PM EBAY RESELLER 344 mL/hr Rate/Dose Change 04/25/2022 3:51 PM EBAY RESELLER 296 mL/ hr Rate/Dose Change 04/25/2022 3:33 PM EBAY RESELLER 244 mL/ hr documented in this encounter Orders Nursing Count Last Ordered Date First Orde red Date ONCBCN NURSING COMMUNICATION [id number] 2 0 04/25/2022 VITAL SIGNS INTRA-INFUSION 1 04/25/2022 Appointment Requests Count Last Ordered Date Fi rst Ordered Date INFUSION APPT REQUEST 300 MIN 1 04/25/2022 documented in this encounter Additional Health Concerns Infection Onset Date Last Indicated Resolved Time C. difficile Comment:Backloaded December 21, 2010 09/21/2010 09/21/2010 documented as of this encounter Care Teams Grain Elevator Operator Relationship Specialty Start Date End Date Lenin Ventura MD [address] [address] PCP - General 07/06/16 Lenin Ventura MD [address] [address] 07/06/16 Burt Dos Santos MD PhD [address] [address] Medical Oncologist/Alterations Sewer Medical Oncology 06/16/19 documented as of this encounter
--- OUTSIDE RECORDS SUMMARY | 2024-02-22 08:29 | XMS_ITS | Encounter Summary ---
Author Organization [facility] Address [address] [place] [address] Phone Care Team Providers Care Surveyor Helper Name Role Phone Lenin Ventura MD Primary Care Provider [phone] Lenin Ventura MD Unavailable [phone] Burt Dos Santos MD PhD Unavailable [phone] Reason for Visit * Reason Onset Date Comments Financial Assistance 05/31/2022 calquence Encounter Details Date Type Department Care Team (Late st Contact Info) Description 05/31/2022 Documentation 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 Gender Identity Not on file Sexual Orientation Not on file documented as of this encounter Progress Notes * Chelita Estevez CPhT - 05/31/2022 11:11 AM CDT FINANCIAL ASSISTANCE- revised 06/04/2022 Co-payment Amount:191.25 Co-payment William Obtained?: NO (SEE NOTES) (Yes 06/04/2022 through [place] assistance) PAP ([employer] Drug) application Obtained?: Foundation/Organization: Medication(s) applied to: [facility] Patient Screening Information: What's the household size?: 5 What's the annual household income?:66,000 NOTES: 06/04/2022 [facility] was open and the patient was able to get assistance through them. The pharmacy was notified as well as the patient. Pharmacy was going to ship the meidcation tot he patient. 05/31/2022 This patient has a [employer] account set up, [place] [id number], however this is set to on 08/05/2022. There is a current balance of $0.00. renew for this william is 07/05/2022 (one month open re-enrollment time period) Must use PAP application from [employer] until the open time period. Preparing form prior to speaking with patient. 06/01/2022 UPDATE: patient signed application, faxed to sustainable systems analyst 06/04/2022 Final UPDATE: [facility] has been approved for this patient. Patient has been notified and medication was shipped to patient. documented in this encounter Plan of Treatment Not on file documented as of this encounter Visit Diagnoses Not on filedocumented in this encounter Additional Health Concerns Infection Onset Date Last Indicated Resolved Time C. difficile Comment:Backloaded December 21, 2010 09/21/2010 09/21/2010 documented as of this encounter Care Teams Surveyor Helper Relationship Specialty Start Date End Date Lenin Ventura MD [address] [address] PCP - General 07/06/16 Lenin Ventura MD [address] [address] 07/06/16 Burt Dos Santos MD PhD [address] [place] [address] Medical Oncologist/Manual Arts Therapy Teacher Medical Oncology 06/16/19 documented as of this encounter
--- OUTSIDE RECORDS SUMMARY | 2024-02-22 08:29 | XMS_ITS | Encounter Summary ---
Author Organization [facility] Healthcare Address [address] [place] [address] Care Team Providers Care Diagnostic Cardiac Sonographer Name Role Phone Lenin Ventura MD Primary Care Provider [phone] Lenin Ventura MD Unavailable [phone] Burt Dos Santos MD PhD Unavailable [phone] Encounter Details Date Type Department Care Team (Latest Contact Info) Description 03/28/2022 10:49 AM INHALATION THERAPIST - 03/28/2022 11:59 PM INHALATION THERAPIST Hospital Encounter [facility] Advanced Medicine [facility] Advanced Medicine ([facility]) [address] [place] [phone] CLL (chronic lymphocytic leukemia) ([facility]) ([facility]); Hypogammaglobulinem ia ([facility]) ([facility]) Discharge Disposition: Discharge to home or self care Social History Tobacco Use Types Packs/Day Years Used Date Smoking Tobacco: Former Smokeless Tobacco: Never Alcohol Use Standard Drinks/Week Comments Not Currently 0 (1 standard drink = 0.6 oz pur e alcohol) Sex and Gender Information Value Date Recorded Sex Assigned at Not on file Legal Sex Male 9:45 AM INHALATION THERAPIST Gender Identity Not on file Sexual Orientation [...] a day 360 capsule 3 09/01/2021 3 ibrutinib (Imbruvica) 420 mg tabletIndications :CLL (chronic lymphocytic leukemia) (HCC) Take 1 tablet (420 mg total) by mouth daily 28 tablet 3 03/28/2022 3 documented as of this encounter Discharge Disposition Disposition Code Departure Means Destination Discharge to home or self care documented in this encounter Plan of Treatment Not on file documented as of this encounter Procedures Procedure Name Priority Date/Time Associated Diagnosis Comments EGFR STAT 03/28/2022 12:24 PM INHALATION THERAPIST CLL (chronic lymphocytic leukemia) (CMS/HCC) (HCC) Hypogammaglobulinem ia (CMS/HCC) (HCC) DIFFERENTIAL AUTO STAT 03/28/2022 12: 24 PM INHALATION THERAPIST CLL (chronic lymphocytic leukemia) (CMS/HCC) (HCC) Hypogammaglobulinem ia (CMS/HCC) (HCC) CBC WITH AUTO DIFFERENTIAL STAT 03/28/2022 12:24 PM INHALATION THERAPIST CLL (chronic lymphocytic leukemia) (CMS/HCC) (HCC) Hypogammaglobulinem ia (CMS/HCC) (HCC) COMPREHENSIVE METABOLIC PANEL STAT 03/28/2022 12:24 PM INHALATION THERAPIST CLL (chronic lymphocytic leukemia) (CMS/HCC) (HCC) Hypogammaglobulinem ia (CMS/HCC) (HCC) documented in this encounter Results * eGFR (03/28/2022 12:24 PM INHALATION THERAPIST) eGFR >90 90 - 130 mL/min/1. 73 [...] was last reviewed 2021. Testing performed by: [facility], [address] [place] [phone] Blood 03/28/2022 12:2 4 PM INHALATION THERAPIST 03/28/2022 12:25 PM INHALATION THERAPIST Burt Dos Santos MD PhD LAB BLOOD ORDERABLES Final Result [facility] Department [place] [address] * (ABNORMAL) Differential, auto (03/28/2022 12:24 PM INHALATION THERAPIST) Neutrophil abs 5.9 1.8 - 6.6 K/cumm [facility] Comment:Testing performed by : [facility], [address] [place] [phone] Lymphocyte abs 6.4(H) 1.2 - 3.3 K/cumm [facility] Comment:Testing performed by : [facility], [address] [place] [phone] Monocyte abs 0.7 0.2 - 1.2 K/cumm [facility] Comment:Testing performed by : [facility], [address] [place] [phone] Eosinophil abs 0.1 0.0 - 0.5 K/cumm [facility] Comment:Testing performed by : [facility], [address] [place] [phone] Basophil abs 0.1 0.0 - 0.2 K/cumm [facility] Comment:Testing performed by : [facility], [address] [place] [phone] Neutrophil pct 44.5 % [facility] Comment: Interpretive Data Percent cell count reference ranges are not reported, since discordance with absolute values may lead to misinterpretation of CBC data. Current Interpretive Data was last revised on 2017. Testing performed by: [facility], [address] [place] [phone] Lymphocyte pct 48.6 % [facility] Comment: Interpretive Data Percent cell count reference ranges are not reported, since discordance with absolute values may lead to misinterpretation of CBC data. Current Interpretive Data was last revised on 2017. Testing performed by: [facility], [address] [place] [phone] Monocyte pct 5.5 % [facility] Comment:Testing performed by : [address] [address] Eosinophil pct 0.8 % [facility] Comment:Testing performed by : [facility], [address] [place] [phone] Basophil pct 0.6 % [facility] Comment:Testing performed by : [facility], [address] [place] [phone] Blood 03/28/2022 12:2 4 PM INHALATION THERAPIST 03/28/2022 12:25 PM INHALATION THERAPIST Burt Dos Santos MD PhD LAB BLOOD ORDERABLES Final Result [facility] Department [place] [address] * (ABNORMAL) CBC with auto differential (03/28/2022 12:24 PM INHALATION THERAPIST) WBC 13.1(H) 3.8 - 9.8 K/cumm [facility] Comment:Testing performed by : [facility], [address] [place] [phone] Hgb 14.5 13.8 - 17.2 g/dL [facility] Comment:Testing performed by : [address] [address] Hct 43.4 40.7 - 50.3 % [facility] Comment:Testing performed by : [address] [address] Plt 167 140 - 440 K/cumm [facility] Comment:Testing performed by : [address] [address] MPV 11.8(H) 6.8 - 10.4 fL [facility] Comment:Testing performed by : [address] [address] RBC 4.54 4.50 - 5.70 M/cumm [facility] Comment:Testing performed by : [address] [address] MCV 95.5 80.0 - 97.6 fL [facility] Comment:Testing performed by : [address] [address] MCH 32.0 26.7 - 33.7 pg [facility] Comment:Testing performed by : [facility], [address] [place] [phone] MCHC 33.5 32.7 - 35.5 g/dL [facility] Comment:Testing performed by : [facility], [address] [place] [phone] RDW CV 15.0(H) 11.8 - 14.6 % [facility] Comment:Testing performed by : [facility], [address] [place] [phone] NRBC abs 0.00 0.00 - 0.01 K/cumm [facility] Comment:Testing performed by : [facility], [address] [place] [phone] Blood 03/28/2022 12:2 4 PM INHALATION THERAPIST 03/28/2022 12:25 PM INHALATION THERAPIST Burt Dos Santos MD PhD LAB BLOOD ORDERABLES Final Result [facility] Department [place] [address] * (ABNORMAL) Comprehensive metabolic panel (03/28/2022 12:24 PM INHALATION THERAPIST) Sodium 141 135 - 145 mmol/L [facility] Comment:Testing performed by : [facility], [address] [place] [phone] Potassium, pl 4.5 3.3 - 4.9 mmol/L [facility] Comment:Testing performed by : [facility], [address] [place] [phone] Chloride 105 97 - 110 mmol/L [facility] Comment:Testing performed by : [facility], [address] [place] [phone] CO2 28 22 - 32 mmol/L [facility] Comment:Testing performed by : [facility], [address] [place] [phone] Anion gap 9 2 - 15 mmol/L [facility] Comment:Testing performed by : [facility], [address] [place] [phone] BUN 18 8 - 25 mg/dL [facility] Comment:Testing performed by : [facility], [address] [place] [phone] Creatinine 0.84 0.80 - 1.30 mg/dL [facility] Comment:Testing performed by : [facility], [address] [place] [phone] Glucose 124 70 - 199 mg/dL [facility] Comment: [...] was last revised 2022. Testing performed by: [facility], [address] [place], [place] [phone] Calcium 10.0 8.5 - 10.3 mg/dL [facility] Comment:Testing performed by : [address] [address] Bilirubin, total 0.7 0.1 - 1.2 mg/dL [facility] Comment:Testing performed by : [address] [address] Protein, pl 6.3(L) 6.5 - 8.5 g/dL [facility] Comment:Testing performed by : [address] [address] Albumin 4.2 3.5 - 5.0 g/dL [facility] Comment:Testing performed by : [address] [address] Alk phos 83 40 - 130 Units/L [facility] Comment:Testing performed by : [address] [phone] ALT 13 7 - 55 Units/L [facility] Comment:Testing performed by : [facility], [address] [facility] [address] AST 17 10 - 50 Units/L [facility] Comment:Testing performed by : [facility], [address] [facility] [phone] Blood 03/28/2022 12:2 4 PM INHALATION THERAPIST 03/28/2022 12:25 PM INHALATION THERAPIST us Burt Dos Santos MD PhD LAB BLOOD ORDERABLES Final Result [facility] Department [place] [address] documented in this encounter Visit Diagnoses Diagnosis CLL (chronic lymphocytic leukemia) (HCC) Chronic lymphoid leukemia, without mention of having achieved remission Hypogammaglobulinemia (HCC) Unspecified hypogammaglobulinemia documented in this encounter Additional Health Concerns Infection Onset Date Last Indicated Resolved Time C. difficile Comment:Backloaded December 21, 2010 09/21/2010 09/21/2010 documented as of this encounter Care Teams Diagnostic Cardiac Sonographer Relationship Specialty Start Date End Date Lenin Ventura MD [address] [address] PCP - General 07/06/16 Lenin Ventura MD [address] [address] 07/06/16 Burt Dos Santos MD PhD [address] [address] Medical Oncologist/Software Engineering Specialist Medical Oncology 06/16/19 documented as of this encounter
--- OUTSIDE RECORDS SUMMARY | 2024-02-22 08:29 | XMS_ITS | Encounter Summary ---
Author Organization [facility] Address [address] [place] [address] Phone Care Team Providers Care Recreation Therapy Aide Name Role Phone Lenin Ventura MD Primary Care Provider [phone] Lenin Ventura MD Unavailable [phone] Burt Dos Santos MD PhD Unavailable [phone] Reason for Visit * Oncology (Routine) - Authorized Specialty Diagnoses / Procedures Referred By Contac t Referred To Contact Medical Oncology / Oncology Diagnoses Appt Comment: LAB Procedures RETURN Lenin Ventura MD [address] [facility] [address] [place] [address] Phone: tel: fax: Burt Dos Santso MD PhD [address] [facility] [place] [address] DIV IM BONE MARROW TRANSPLANT, 5TH, [address] [place] [address] Phone: tel: fax: Referral ID Status Reason Start Date Expiration Date V isits Requested Visits Authorized [id number] Authorized 08/02/2017 03/12/2024 99 99 Encounter Details Date Type Department Care Team (Late st Contact Info) Description 05/24/2022 10:00 AM CDT Office Visit [facility] Bone Marrow Transplant [address] [facility] 7th Floor, [place] [address] Hiltons, Magali Phelan NP [address] DIV IM BONE MARROW TRANSPLANT, [address] [place] [address] CLL (chronic lymphocytic leukemia) ([facility]/HCC) ([facility]) Social History Tobacco Use Types Packs/Day Years Used Date Smoking Tobacco: Former Smokeless Tobacco: Never Alcohol Use Standard Drinks/Week Comments Not Currently 0 (1 standard drink = 0.6 oz pur e alcohol) Sex and Gender Information Value Date Recorded Sex Assigned at Not on file Legal Sex Male 9:45 AM ORIENTATION AND MOBILITY INSTRUCTOR Gender Identity Not on file Sexual Orientation Not on file documented as of this encounter Last Filed Vital Signs Vital Sign Reading Time Taken Comments Blood Pressure 130/76 05/24/2022 9:35 AM CDT Pulse 87 05/24/2022 9:35 AM CDT Temperature 36.6 ??C (97.8 ??F) 05/24/2022 9:33 AM CD T Respiratory Rate 18 05/24/2022 9:33 AM CDT Oxygen Saturation 95% 05/24/2022 9:35 AM CDT Inhaled Oxygen Concentration - - Weight 124.6 kg (274 lb 9.6 oz) 05/24/2022 9:33 AM CDT Height - - Body Mass Index 35.43 02/15/2022 9:40 AM ORIENTATION AND MOBILITY INSTRUCTOR documented in this encounter Progress Notes * HiltonsMagali NP - 05/24/2022 10:00 AM CDT BMT Progress Note Oncology History CLL (chronic lymphocytic leukemia) ([facility]/HCC) ([facility]) 07/03/2005 Initial Diagnosis [...] then q2mo x 4; on clinical trial [facility] [id number] --> stable disease on CT; marrow 30-40% [...] returns for scheduled follow up. He has had increased bleeding over the last several months. He states that when he hits his hand even slightly he bleeds excessively. His nose also bleeds more frequently. He denies fevers chills. His nails are also breaking all the time. He has been on the ibrutinib over 3 years. Outpatient Encounter Medications as of 05/24/2022: acyclovir (ZOVIRAX) 200 mg capsule, Take 2 [...] each nostril daily , Disp: , Rfl: ibrutinib (Imbruvica) 420 mg tablet, Take 1 tablet (420 mg total) by mouth daily, Disp: 28 tablet, Rfl: 3 magnesium oxide [...] mouth daily, Disp: 30 each, Rfl: 0 No facility-administered encounter medications on file as of 05/24/2022. Objective Vitals: BP: 130/76 Temp: 36.6 ??C (97.8 ??F) Temp src: Transdermal Pulse: 87 Resp: 18 SpO2: 95 % Weight: 124.6 kg (274 lb 9.6 oz) Physical exam: ECOG PS [...] CBC: Lab Results Component Value Date/Time WBC 11.2 (H) 05/24/2022 09:21 AM WBC 13.7 (H) 04/10/2019 03:03 PM HGB 14.3 05/24/2022 09:21 AM HGB 14.2 04/10/2019 03:03 PM HCT 41.3 05/24/2022 09:21 AM HCT 41.2 04/10/2019 03:03 PM LABPLAT 185 05/24/2022 09:21 AM LABPLAT 158 04/10/2019 03:03 PM NEUTROABS 6.0 05/24/2022 09:21 AM NEUTROABS 4,590 04/10/2019 03:03 PM CMP: Lab Results Component Value Date/Time SODIUM 138 05/24/2022 09:21 AM POTASSIUM 4.5 05/24/2022 09:21 AM CO2 27 05/24/2022 09:21 AM BUNSER 17 05/24/2022 09:21 AM GLUCOSE 164 05/24/2022 09:21 AM CREATININE 0.83 05/24/2022 09:21 AM CALCIUM 9.1 05/24/2022 09:21 AM CHLORIDE 103 05/24/2022 09:21 AM ALBUMIN 4.3 05/24/2022 09:21 AM AST 15 05/24/2022 09:21 AM ALT 21 05/24/2022 09:21 AM ALKPHOS 73 05/24/2022 09:21 AM BILITOT 0.6 05/24/2022 09:21 AM PROT 6.2 (L) 05/24/2022 09:21 AM ANIONGAP 8 05/24/2022 09:21 AM LDH: Lab Results Component Value Date/Time [...] of clinical response. 1. Recurrent SLL/CLL: He is having more bleeding on the ibrutinib, we will consider switching to a newer BTK inhibitor. OI prophylaxis include acyclovir and low dose levaquin, as prescribed by his PCP. 2. Recurrent sinus infections: Known allergies prior to starting BTK inhibitors, though has continued to have infections, mostly related to his living situation. IVIG has been initiated he will have cycle 4 today. As always, the patient knows to contact our office with any questions or concerns in the interim. documented in this encounter Nursing Notes * Roberta Watkins, ALICIA - 05/24/2022 10:00 AM CDT ROV with Magali for CLL. He will get IVIG today. Added IgG on today. Patient has had increasingly more bleeding issues without trauma, including nose bleeds, bumping his arm and it bleeding. We will continue ibrutinib, but he's been on it 3 years and it's getting worse. Will discuss with MD bhardwaj med switch next week. Patient agreeable. ROV In 3 months, continue IVIG for 6 doses total. documented in this encounter Plan of Treatment Not on file documented as of this encounter Results * Lactate dehydrogenase (LD) (03/14/2023 9:22 AM ORIENTATION AND MOBILITY INSTRUCTOR) Pathologist [facility] Lactate dehydrogenase (LDH) 174 100 - 250 Units/L [facility] Comment:Testing performed by : [facility], [address] [place] [phone] Blood 03/14/2023 9:22 AM ORIENTATION AND MOBILITY INSTRUCTOR 03/14/2023 9:24 AM ORIENTATION AND MOBILITY INSTRUCTOR us Magali Velazquezr DRIER ATTENDANT LAB BLOOD ORDERABLES Final Res ult [facility] [place] [address] * (ABNORMAL) CBC with auto differential (03/14/2023 9:22 AM ORIENTATION AND MOBILITY INSTRUCTOR) [facility] WBC 13.2(H) 3.8 - 9.8 K/cumm [facility]STRO Comment:Testing performed by : [facility], [address] [place] [phone] Hgb 14.8 13.8 - 17.2 g/dL [facility]STR[facility] Comment:Testing performed by : [facility], [address] [place] [phone] Hct 44.1 40.7 - 50.3 % [facility]STRO Comment:Testing performed by : [facility], [address] [place] [phone] Plt 203 140 - 440 K/cumm [facility]STRO Comment:Testing performed by : [facility], [address] [place] [phone] MPV 10.1 6.8 - 10.4 fL [facility] Comment:Testing performed by : [facility], [address] [place] [phone] RBC 4.62 4.50 - 5.70 M/cumm [facility] Comment:Testing performed by : [facility], [address] [place] [phone] MCV 95.5 80.0 - 97.6 fL [facility]STR[facility] Comment:Testing performed by : [facility], [address] [place] [phone] MCH 32.0 26.7 - 33.7 pg [facility]STR[facility] Comment:Testing performed by : [facility], [address] [place] [phone] MCHC 33.5 32.7 - 35.5 g/dL [facility] Comment:Testing performed by : [facility], [address] [place] [phone] RDW CV 14.1 11.8 - 14.6 % [facility]STR[facility] Comment:Testing performed by : [facility], [address] [place] [phone] NRBC abs 0.03(H) 0.00 - 0.01 K/cumm [facility] Comment:Testing performed by : [facility], [address] [place] [phone] Blood 03/14/2023 9:22 AM ORIENTATION AND MOBILITY INSTRUCTOR 03/14/2023 9:24 AM ORIENTATION AND MOBILITY INSTRUCTOR us Magali Stapleton DRIER ATTENDANT LAB BLOOD ORDERABLES Final Res ult Performing Organization Address City/[facility] Co de Phone Number [facility]STR[facility] Department [place] [address] * (ABNORMAL) IgG (08/23/2022 9:55 AM CDT) Immunoglobulin G 599.0(L) 700.0 - 1,600.0 mg/dL [facility] Blood 08/23/2022 9:55 AM CDT 08/23/2022 10:18 AM CDT Magali SJulisa Stapleton DRIER ATTENDANT LAB BLOOD ORDERABLES Final Res ult Performing Organization Address City/[facility] de Phone Number [facility] Department [place] [address] * Lactate dehydrogenase (LD) (07/19/2022 12:26 PM CDT) Pathologist [facility] Lactate dehydrogenase (LDH) 150 100 - 250 Units/L [facility] Comment:Testing performed by : [facility], [address] [place] [phone] Blood 07/19/2022 12:2 6 PM CDT 07/19/2022 12:27 PM CDT us Magali Stapleton DRIER ATTENDANT LAB BLOOD ORDERABLES Final Res ult Performing Organization Address [facility] de Phone Number [facility] Department [place] [address] * (ABNORMAL) CBC with auto differential (07/19/2022 12:26 PM CDT) [facility] WBC 11.0(H) 3.8 - 9.8 K/cumm [facility] Comment:Testing performed by : [facility], [address] [place] [phone] Hgb 14.7 13.8 - 17.2 g/dL [facility] Comment:Testing performed by : [address] [phone] Hct 43.3 40.7 - 50.3 % [facility] Comment:Testing performed by : [facility], [address] [place] [phone] Plt 191 140 - 440 K/cumm [facility] Comment:Testing performed by : [address] [phone] MPV 10.9(H) 6.8 - 10.4 fL [facility]SA [facility] Comment:Testing performed by : [address] [phone] RBC 4.62 4.50 - 5.70 M/cumm [facility] Comment:Testing performed by : [facility], [address] [place] [phone] MCV 93.6 80.0 - 97.6 fL [facility] Comment:Testing performed by : [facility], [address] [place], [place] [phone] MCH 31.8 26.7 - 33.7 pg [facility] CASTRO Comment:Testing performed by : [facility], [address] [place] [phone] MCHC 34.0 32.7 - 35.5 g/dL [facility] Comment:Testing performed by : [facility], [address] [place], [place] [phone] RDW CV 15.2(H) 11.8 - 14.6 % [facility]STR[facility] Comment:Testing performed by : [facility], [address] [place], [place] [phone] NRBC abs 0.01 0.00 - 0.01 K/cumm [facility] Comment:Testing performed by : [facility], [address] [place], [place] [phone] Blood 07/19/2022 12:2 6 PM CDT 07/19/2022 12:27 PM CDT Magali Stapleton DRIER ATTENDANT LAB BLOOD ORDERABLES Final Res ult Performing Organization Address [facility] de Phone Number [facility] Department [place] [address] * Lactate dehydrogenase (LD) (06/21/2022 12:33 PM CDT) Lactate dehydrogenase (LDH) 163 100 - 250 Units/L [facility] Comment:Testing performed by : [facility], [address] [place] [phone] Blood 06/21/2022 12:3 3 PM CDT 06/21/2022 12:34 PM CDT Magali Stapleton DRIER ATTENDANT LAB BLOOD ORDERABLES Final Res ult Performing Organization Address [facility]/ZIP Co de Phone Number [facility] CASTR[facility] Department [place] [address] * (ABNORMAL) CBC with auto differential (06/21/2022 12:33 PM CDT) WBC 14.7(H) 3.8 - 9.8 K/cumm [facility] Comment:Testing performed by : [facility], [address] [place] [phone] Hgb 13.9 13.8 - 17.2 g/dL [facility] Comment:Testing performed by : [facility], [address] [place] [phone] Hct 41.9 40.7 - 50.3 % [facility] Comment:Testing performed by : [facility], [address] [place], [place] [phone] Plt 182 140 - 440 K/cumm [facility] Comment:Testing performed by : [address] [phone] MPV 11.2(H) 6.8 - 10.4 fL [facility] Comment:Testing performed by : [address] [phone] RBC 4.48(L) 4.50 - 5.70 M/cumm [facility] Comment:Testing performed by : [address] [address] MCV 93.5 80.0 - 97.6 fL [facility] Comment:Testing performed by : [facility], [address] [place] [phone] MCH 31.1 26.7 - 33.7 pg [facility] Comment:Testing performed by : [address] [address] MCHC 33.2 32.7 - 35.5 g/dL [facility] Comment:Testing performed by : [address] [phone] RDW CV 14.5 11.8 - 14.6 % [facility] Comment:Testing performed by : [facility], [address] [place] [phone] NRBC abs 0.01 0.00 - 0.01 K/cumm [facility] Comment:Testing performed by : [facility], [facility] [phone] Blood 06/21/2022 12:3 3 PM CDT 06/21/2022 12:34 PM CDT us Magali Phelan Hiltons DRIER ATTENDANT LAB BLOOD ORDERABLES Final Res ult [facility] [place] [address] documented in this encounter Visit Diagnoses Diagnosis CLL (chronic lymphocytic leukemia) (HCC) Chronic lymphoid leukemia, without mention of having achieved remission documented in this encounter Orders Lab Orders Without Results Count Last Ordered D ate First Ordered Date IGG 1 05/24/2022 Appointment Requests Count Last Ordered Date Fi rst Ordered Date ONCBCN CLINIC APPOINTMENT REQUEST 2 023 05/24/2022 ONCBCN LAB APPOINTMENT 3 08/23/202206/21 INFUSION APPT REQUEST 300 MIN 2 07/19/2022 06/21/2022 documented in this encounter Additional Health Concerns Infection Onset Date Last Indicated Resolved Time C. difficile Comment:Backloaded December 21, 2010 09/21/2010 09/21/2010 documented as of this encounter Care Teams Recreation Therapy Aide Relationship Specialty Start Date End Date Lenin Ventura MD [address] [address] PCP - General 07/06/16 Lenin Ventura MD [address] [address] 07/06/16 Burt Dos Santos MD PhD [address] [address] Medical Oncologist/Shipping Helper Medical Oncology 06/16/19 documented as of this encounter
--- OUTSIDE RECORDS SUMMARY | 2024-02-22 08:29 | XMS_ITS | Encounter Summary ---
Author Organization [facility] Address [address] [place] [address] Phone Care Team Providers Care Director Corporate Security Name Role Phone Lenin Ventura MD Primary Care Provider [phone] Lenin Ventura MD Unavailable [phone] Burt Dos Santos MD PhD Unavailable [phone] Reason for Visit * Oncology (Routine) - Authorized Specialty Diagnoses / Procedures Referred By Contac t Referred To Contact Oncology Diagnoses CLL (chronic lymphocytic leukemia) (HCC) Procedures ONCBCN ARM DRAW APPT ONC LAB ONLY Burt Dos Santos MD PhD Phone: tel: fax: Burt Dos Santos MD PhD Phone: tel: fax: Referral ID Status Reason Start Date Expiration Date Visits Requested Visits Authorized [id number] Authorized Specialty Services Required 07/03/2019 03/12/2024 99 [phone] Encounter Details Date Type Department Care Team (Late st Contact Info) Description 02/28/2022 1:30 PM ASPHALT BLENDER Lab [facility] Oncology [facility] 7th [place] [address] [place] [address] CLL (chronic lymphocytic leukemia) (CMS/HCC) (HCC); Hypogammaglobulinemia (CMS/HCC) (HCC) Social History Tobacco Use Types Packs/Day Years Used Date Smoking Tobacco: Former Smokeless Tobacco: Never Alcohol Use Standard Drinks/Week Comments Not Currently 0 (1 standard drink = 0.6 oz pur e alcohol) Sex and Gender Information Value Date Recorded Sex Assigned at Not on file Legal Sex Male 9:45 AM ASPHALT BLENDER Gender Identity Not on file Sexual Orientation [...] rst Ordered Date ONCBCN LAB APPOINTMENT 1 02/28/2022 documented in this encounter Additional Health Concerns Infection Onset Date Last Indicated Resolved Time C. difficile Comment:Backloaded December 21, 2010 09/21/2010 09/21/2010 documented as of this encounter Care Teams Director Corporate Security Relationship Specialty Start Date End Date Lenin Ventura MD [address] [address] PCP - General 07/06/16 Lenin Ventura MD [address] [address] 07/06/16 Burt Dos Santos MD PhD [address] [address] Medical Oncologist/Rent Collector Medical Oncology 06/16/19 documented as of this encounter
--- OUTSIDE RECORDS SUMMARY | 2024-02-22 08:29 | XMS_ITS | Encounter Summary ---
Author Organization [facility] Healthcare Address [address] [place] [address] Care Team Providers Care Auto Parker Name Role Phone Lenin Ventura MD Primary Care Provider [phone] Lenin Ventura MD Unavailable [phone] Burt Dos Santos MD PhD Unavailable [phone] Encounter Details Date Type Department Care Team (Latest Contact Info) Description 04/25/2022 10:00 AM DYE LINE OPERATOR - 04/25/2022 11:59 PM DYE LINE OPERATOR Hospital Encounter [facility] Advanced Medicine [facility] Advanced Medicine ([facility]) [address] [place] [phone] CLL (chronic lymphocytic leukemia) ([facility]) ([facility]); Hypogammaglobulinem ia ([facility]) ([facility]) Discharge Disposition: Discharge to home or self care Social History Tobacco Use Types Packs/Day Years Used Date Smoking Tobacco: Former Smokeless Tobacco: Never Alcohol Use Standard Drinks/Week Comments Not Currently 0 (1 standard drink = 0.6 oz pur e alcohol) Sex and Gender Information Value Date Recorded Sex Assigned at Not on file Legal Sex Male 9:45 AM DYE LINE OPERATOR Gender Identity Not on file Sexual [...] Priority Date/Time Associated Diagnosis Comments EGFR STAT 04/25/2022 12:42 PM DYE LINE OPERATOR CLL (chronic lymphocytic leukemia) (CMS/HCC) (HCC) Hypogammaglobulinem ia (CMS/HCC) (HCC) DIFFERENTIAL AUTO STAT 04/25/2022 12: 42 PM DYE LINE OPERATOR CLL (chronic lymphocytic leukemia) (CMS/HCC) (HCC) Hypogammaglobulinem ia (CMS/HCC) (HCC) CBC WITH AUTO DIFFERENTIAL STAT 04/25/2022 12:42 PM DYE LINE OPERATOR CLL (chronic lymphocytic leukemia) (CMS/HCC) (HCC) Hypogammaglobulinem ia (CMS/HCC) (HCC) COMPREHENSIVE METABOLIC PANEL STAT 04/25/2022 12:42 PM DYE LINE OPERATOR CLL (chronic lymphocytic leukemia) (CMS/HCC) (HCC) Hypogammaglobulinem ia (CMS/HCC) (HCC) documented in this encounter Results * eGFR (04/25/2022 12:42 PM DYE LINE OPERATOR) eGFR >90 90 - 130 mL/min/1. 73 [...] was last reviewed 2021. Testing performed by: [facility], [address] [place] [phone] Blood 04/25/2022 12:4 2 PM DYE LINE OPERATOR 04/25/2022 12:43 PM DYE LINE OPERATOR Burt Dos Santos MD PhD LAB BLOOD ORDERABLES Final Result [facility] Department [place] [address] * (ABNORMAL) Differential, auto (04/25/2022 12:42 PM DYE LINE OPERATOR) Neutrophil abs 5.2 1.8 - 6.6 K/cumm [facility] Comment:Testing performed by : [facility], [address] [place] [phone] Lymphocyte abs 5.4(H) 1.2 - 3.3 K/cumm [facility] Comment:Testing performed by : [facility], [address] [place] [phone] Monocyte abs 0.7 0.2 - 1.2 K/cumm [facility] Comment:Testing performed by : [facility], [address] [place] [phone] Eosinophil abs 0.1 0.0 - 0.5 K/cumm [facility] Comment:Testing performed by : [facility], [address] [place] [phone] Basophil abs 0.1 0.0 - 0.2 K/cumm [facility] Comment:Testing performed by : [facility], [address] [place] [phone] Neutrophil pct 44.9 % [facility] Comment: Interpretive Data Percent cell count reference ranges are not reported, since discordance with absolute values may lead to misinterpretation of CBC data. Current Interpretive Data was last revised on 2017. Testing performed by: [facility], [address] [place] [phone] Lymphocyte pct 46.9 % [facility] Comment: Interpretive Data Percent cell count reference ranges are not reported, since discordance with absolute values may lead to misinterpretation of CBC data. Current Interpretive Data was last revised on 2017. Testing performed by: [facility], [address] [place] [phone] Monocyte pct 6.5 % [facility] Comment:Testing performed by : [address] [phone] Eosinophil pct 0.8 % [facility] Comment:Testing performed by : [facility], [address] [place] [phone] Basophil pct 0.9 % [facility] Comment:Testing performed by : [facility], [address] [place] [phone] Blood 04/25/2022 12:4 2 PM DYE LINE OPERATOR 04/25/2022 12:43 PM DYE LINE OPERATOR Burt Dos Santos MD PhD LAB BLOOD ORDERABLES Final Result [facility] Department [place] [address] * (ABNORMAL) CBC with auto differential (04/25/2022 12:42 PM DYE LINE OPERATOR) WBC 11.5(H) 3.8 - 9.8 K/cumm [facility] Comment:Testing performed by : [facility], [address] [place] [phone] Hgb 14.1 13.8 - 17.2 g/dL [facility] Comment:Testing performed by : [facility], [address] [place] [phone] Hct 41.5 40.7 - 50.3 % [facility] Comment:Testing performed by : [facility], [address] [place] [phone] Plt 164 140 - 440 K/cumm [facility] Comment:Testing performed by : [facility], [address] [place] [phone] MPV 11.5(H) 6.8 - 10.4 fL [facility] Comment:Testing performed by : [address] [phone] RBC 4.39(L) 4.50 - 5.70 M/cumm [facility] Comment:Testing performed by : [address] [phone] MCV 94.5 80.0 - 97.6 fL [facility] Comment:Testing performed by : [facility], [address] [place] [phone] MCH 32.2 26.7 - 33.7 pg [facility] Comment:Testing performed by : [facility], [address] [place] [phone] MCHC 34.1 32.7 - 35.5 g/dL [facility] Comment:Testing performed by : [facility], [address] [place] [phone] RDW CV 14.4 11.8 - 14.6 % [facility] Comment:Testing performed by : [facility], [address] [place] [phone] NRBC abs 0.01 0.00 - 0.01 K/cumm [facility] Comment:Testing performed by : [facility], [address] [place] [phone] Blood 04/25/2022 12:4 2 PM DYE LINE OPERATOR 04/25/2022 12:43 PM DYE LINE OPERATOR Burt Dos Santos MD PhD LAB BLOOD ORDERABLES Final Result [facility] Department [place] [address] * (ABNORMAL) Comprehensive metabolic panel (04/25/2022 12:42 PM DYE LINE OPERATOR) Sodium 139 135 - 145 mmol/L [facility] Comment:Testing performed by : [facility], [address] [place] [phone] Potassium, pl 4.7 3.3 - 4.9 mmol/L [facility] Comment:Testing performed by : [facility], [address] [place] [phone] Chloride 103 97 - 110 mmol/L [facility] Comment:Testing performed by : [facility], [address] [place] [phone] CO2 28 22 - 32 mmol/L [facility] Comment:Testing performed by : [facility], [address] [place] [phone] Anion gap 8 2 - 15 mmol/L [facility] Comment:Testing performed by : [facility], [address] [place] [phone] BUN 17 8 - 25 mg/dL [facility] Comment:Testing performed by : [facility], [address] [place] [phone] Creatinine 0.85 0.80 - 1.30 mg/dL [facility] Comment:Testing performed by : [facility], [address] [place] [phone] Glucose 100 70 - 199 mg/dL [facility] Comment: [...] was last revised 2022. Testing performed by: [facility], [address] [place] [phone] Calcium 9.7 8.5 - 10.3 mg/dL [facility] Comment:Testing performed by : [address] [phone] Bilirubin, total 0.6 0.1 - 1.2 mg/dL [facility] Comment:Testing performed by : [address] [phone] Protein, pl 6.3(L) 6.5 - 8.5 g/dL [facility] Comment:Testing performed by : [address] [phone] Albumin 4.3 3.5 - 5.0 g/dL [facility] Comment:Testing performed by : [address] [phone] Alk phos 73 40 - 130 Units/L [facility] Comment:Testing performed by : [address] [phone] ALT 21 7 - 55 Units/L [facility] Comment:Testing performed by : [facility], [address] [facility] [phone] AST 18 10 - 50 Units/L [facility] Comment:Testing performed by : [facility], [address] [facility] [phone] Blood 04/25/2022 12:4 2 PM DYE LINE OPERATOR 04/25/2022 12:43 PM DYE LINE OPERATOR us Burt Dos Santos MD PhD LAB BLOOD ORDERABLES Final Result [facility] Department [place] [address] documented in this encounter Visit Diagnoses Diagnosis CLL (chronic lymphocytic leukemia) (HCC) Chronic lymphoid leukemia, without mention of having achieved remission Hypogammaglobulinemia (HCC) Unspecified hypogammaglobulinemia documented in this encounter Additional Health Concerns Infection Onset Date Last Indicated Resolved Time C. difficile Comment:Backloaded December 21, 2010 09/21/2010 09/21/2010 documented as of this encounter Care Teams Auto Parker Relationship Specialty Start Date End Date Lenin Ventura MD [address] [address] PCP - General 07/06/16 Lenin Ventura MD [address] [address] 07/06/16 Burt Dos Santos MD PhD [address] [address] Medical Oncologist/Bank Sales And Service Manager Medical Oncology 06/16/19 documented as of this encounter
--- OUTSIDE RECORDS SUMMARY | 2024-02-22 08:29 | XMS_ITS | Encounter Summary ---
Author Organization [facility] Healthcare Address [address] [place] [address] Care Team Providers Care Inside Sales Specialist Name Role Phone Lenin Ventura MD Primary Care Provider [phone] Lenin Ventura MD Unavailable [phone] Burt Dos Santos MD PhD Unavailable [phone] Encounter Details Date Type Department Care Team (Latest Contact Info) Description 05/24/2022 7:52 AM CDT - 05/24/2022 11:59 PM CDT Hospital Encounter [facility] Advanced Medicine [facility] Advanced Medicine ([facility]) [address] [place] [phone] CLL (chronic lymphocytic leukemia) ([facility]) ([facility]); Hypogammaglobulinem ia ([facility]) ([facility]) Discharge Disposition: Discharge to home or self care Social History Tobacco Use Types Packs/Day Years Used Date Smoking Tobacco: Former Smokeless Tobacco: Never Alcohol Use Standard Drinks/Week Comments Not Currently 0 (1 standard drink = 0.6 oz pur e alcohol) Sex and Gender Information Value Date Recorded Sex Assigned at Not on file Legal Sex Male 9:45 AM AIRLINE RESERVATIONIST Gender Identity Not on file Sexual Orientation [...] Priority Date/Time Associated Diagnosis Comments EGFR STAT 05/24/2022 9:21 AM CDT CLL (chronic lymphocytic leukemia) (CMS/HCC) (HCC) Hypogammaglobulinem ia (CMS/HCC) (HCC) DIFFERENTIAL AUTO STAT 05/24/2022 9:2 1 AM CDT CLL (chronic lymphocytic leukemia) (CMS/HCC) (HCC) Hypogammaglobulinem ia (CMS/HCC) (HCC) CBC WITH AUTO DIFFERENTIAL STAT 05/24/2022 9:21 AM CDT CLL (chronic lymphocytic leukemia) (CMS/HCC) (HCC) Hypogammaglobulinem ia (CMS/HCC) (HCC) IGG STAT 05/24/2022 9:21 AM CDT COMPREHENSIVE METABOLIC PANEL STAT 05/24/2022 9:21 AM CDT CLL (chronic lymphocytic leukemia) (CMS/HCC) (HCC) Hypogammaglobulinem ia (CMS/HCC) (HCC) documented in this encounter Results * (ABNORMAL) IgG (05/24/2022 9:21 AM CDT) Pathologist [facility] Immunoglobulin G 556.0(L) 700.0 - 1,600.0 mg/dL [facility] Blood 05/24/2022 9:21 AM CDT 05/24/2022 10:57 AM CDT us Magali Stapleton [employer] SAL[employer] BEAUTY ADVISOR LAB BLOOD ORDERABLES Final Res ult [facility] Department [place] [address] * eGFR (05/24/2022 9:21 AM CDT) [facility] eGFR >90 90 - 130 mL/min/1. 73 m2 [facility] Comment: Interpretive Data Reference Interval Normal ?>/= [...] was last reviewed 2021. Testing performed by: [facility], [address] [place] [phone] Blood 05/24/2022 9:21 AM CDT 05/24/2022 9:22 AM CDT Burt Dos Santos MD PhD LAB BLOOD ORDERABLES Final Result [facility] Department [place] [address] * (ABNORMAL) Differential, auto (05/24/2022 9:21 AM CDT) Neutrophil abs 6.0 1.8 - 6.6 K/cumm [facility] Comment:Testing performed by : [facility], [address] [place] [phone] Lymphocyte abs 4.4(H) 1.2 - 3.3 K/cumm [facility] Comment:Testing performed by : [facility], [address] [place] [phone] Monocyte abs 0.6 0.2 - 1.2 K/cumm [facility] Comment:Testing performed by : [facility], [address] [place] [phone] Eosinophil abs 0.1 0.0 - 0.5 K/cumm [facility] Comment:Testing performed by : [facility], [address] [place] [phone] Basophil abs 0.1 0.0 - 0.2 K/cumm [facility]SA [facility] Comment:Testing performed by : [address] [phone] Neutrophil pct 53.3 % [facility] Comment: Interpretive Data Percent cell count reference ranges are not reported, since discordance with absolute values may lead to misinterpretation of CBC data. Current Interpretive Data was last revised on 2017. Testing performed by: [facility], [address] [place] [phone] Lymphocyte pct 39.3 % [facility] Comment: Interpretive Data Percent cell count reference ranges are not reported, since discordance with absolute values may lead to misinterpretation of CBC data. Current Interpretive Data was last revised on 2017. Testing performed by: [facility], [address] [place] [phone] Monocyte pct 5.6 % [facility] Comment:Testing performed by : [facility], [address] [place] [phone] Eosinophil pct 1.1 % [facility] Comment:Testing performed by : [facility], [address] [place] [phone] Basophil pct 0.7 % [facility] Comment:Testing performed by : [facility], [address] [place] [phone] Blood 05/24/2022 9:21 AM CDT 05/24/2022 9:22 AM CDT Burt Dos Santos MD PhD LAB BLOOD ORDERABLES Final Result [facility] Department [place] [address] * (ABNORMAL) Comprehensive metabolic panel (05/24/2022 9:21 AM CDT) Sodium 138 135 - 145 mmol/L [facility] Comment:Testing performed by : [facility], [address] [place] [phone] Potassium, pl 4.5 3.3 - 4.9 mmol/L [facility] Comment:Testing performed by : [address] [phone] Chloride 103 97 - 110 mmol/L [facility] Comment:Testing performed by : [facility], [address] [place] [phone] CO2 27 22 - 32 mmol/L [facility] Comment:Testing performed by : [facility], [address] [place] [phone] Anion gap 8 2 - 15 mmol/L [facility] Comment:Testing performed by : [facility], [address] [place] [phone] BUN 17 8 - 25 mg/dL [facility] Comment:Testing performed by : [facility], [address] [place] [phone] Creatinine 0.83 0.80 - 1.30 mg/dL [facility] Comment:Testing performed by : [facility], [address] [place] [phone] Glucose 164 70 - 199 mg/dL [facility] Comment: [...] was last revised 2022. Testing performed by: [facility], [address] [place] [phone] Calcium 9.1 8.5 - 10.3 mg/dL [facility] Comment:Testing performed by : [facility], [address] [place] [phone] Bilirubin, total 0.6 0.1 - 1.2 mg/dL [facility] Comment:Testing performed by : [facility], [address] [place] [phone] Protein, pl 6.2(L) 6.5 - 8.5 g/dL [facility] Comment:Testing performed by : [facility], [address] [place] [phone] Albumin 4.3 3.5 - 5.0 g/dL [facility] Comment:Testing performed by : [facility], [address] [place] [phone] Alk phos 73 40 - 130 Units/L [facility] Comment:Testing performed by : [address] [phone] ALT 21 7 - 55 Units/L [facility] Comment:Testing performed by : [facility], [address] [place] [phone] AST 15 10 - 50 Units/L [facility] Comment:Testing performed by : [facility], [address] [place] [phone] Blood 05/24/2022 9:21 AM CDT 05/24/2022 9:22 AM CDT Burt Dos Santos MD PhD LAB BLOOD ORDERABLES Final Result [facility] Department [place] [address] * (ABNORMAL) CBC with auto differential (05/24/2022 9:21 AM CDT) WBC 11.2(H) 3.8 - 9.8 K/cumm [facility] Comment:Testing performed by : [facility], [address] [place] [phone] Hgb 14.3 13.8 - 17.2 g/dL [facility] Comment:Testing performed by : [facility], [address] [place] [phone] Hct 41.3 40.7 - 50.3 % [facility] Comment:Testing performed by : [address] [phone] Plt 185 140 - 440 K/cumm [facility]SA CASTRO Comment:Testing performed by : [address] [phone] MPV 11.6(H) 6.8 - 10.4 fL [facility] Comment:Testing performed by : [address] [phone] RBC 4.43(L) 4.50 - 5.70 M/cumm [facility]STRO Comment:Testing performed by : [facility], [address] [place] [phone] MCV 93.2 80.0 - 97.6 fL [facility] Comment:Testing performed by : [facility], [address] [place] [phone] MCH 32.4 26.7 - 33.7 pg [facility] Comment:Testing performed by : [facility], [address] [place] [phone] MCHC 34.7 32.7 - 35.5 g/dL [facility] Comment:Testing performed by : [facility], [address] [place] [phone] RDW CV 14.6 11.8 - 14.6 % [facility] Comment:Testing performed by : [facility], [address] [place] [phone] NRBC abs 0.01 0.00 - 0.01 K/cumm [facility]STRO Comment:Testing performed by : [facility], [address] [place] [phone] Blood 05/24/2022 9:21 AM CDT 05/24/2022 9:22 AM CDT Burt Dos Santos MD PhD LAB BLOOD ORDERABLES Final Result Performing Organization Address City/State/[facility] Co de Phone Number [facility] Department [place] [address] documented in this encounter Visit Diagnoses Diagnosis CLL (chronic lymphocytic leukemia) (HCC) Chronic lymphoid leukemia, without mention of having achieved remission Hypogammaglobulinemia (HCC) Unspecified hypogammaglobulinemia documented in this encounter Additional Health Concerns Infection Onset Date Last Indicated Resolved Time C. difficile Comment:Backloaded December 21, 2010 09/21/2010 09/21/2010 documented as of this encounter Care Teams Inside Sales Specialist Relationship Specialty Start Date End Date Lenin Ventura MD [address] [employer] [address] [address] PCP - General 07/06/16 Lenin Ventura MD [address] [phone] 07/06/16 Burt Dos Santos MD PhD [address] [address] Medical Oncologist/Sales Office Manager Medical Oncology 06/16/19 documented as of this encounter
--- OUTSIDE RECORDS SUMMARY | 2024-02-22 08:29 | XMS_ITS | Encounter Summary ---
Author Organization [facility] Address [address] [place] [address] Phone Care Team Providers Care Olap Developer Name Role Phone Lenin Ventura MD Primary Care Provider [phone] Lenin Ventura MD Unavailable [phone] Burt Dos Santos MD PhD Unavailable [phone] Reason for Visit * Episode Based Medications (Routine) - Authorized Specialty Diagnoses / Procedures Referred By Contguillermo t Referred To Contact Diagnoses Hypogammaglobulinemia (HCC) Procedures [place] GAMUNEX-C/GAMMAKED GAMUNEX Burt Dos Santos MD PhD [address] DIV IM BONE MARROW TRANSPLANT, [address] [place] [address] Phone: tel: fax: [facility] [place] [facility] [address] [facility] 7th [place] [address] Phone: tel: Referral ID Status Reason Start Date Expiration Date V isits Requested Visits Authorized [id number] Authorized 10/19/2019 08/02/2024 1 38 Encounter Details Date Type Department Care Team (Late st Contact Info) Description 02/28/2022 2:30 PM PUBLIC SAFETY TEACHER Infusion [facility] Oncology [address] [place] [address] [place] [address] CLL (chronic lymphocytic leukemia) (CMS/HCC) (HCC) (Primary Dx); Hypogammaglobulinemia (CMS/HCC) (HCC) Social History Tobacco Use Types Packs/Day Years Used Date Smoking Tobacco: Former Smokeless Tobacco: Never Alcohol Use Standard Drinks/Week Comments Not Currently 0 (1 standard drink = 0.6 oz pur e alcohol) Sex and Gender Information Value Date Recorded Sex Assigned at Not on file Legal Sex Male 9:45 AM PUBLIC SAFETY TEACHER Gender Identity Not on file Sexual Orientation Not on file documented as of this encounter Last Filed Vital Signs Vital Sign Reading Time Taken Comments Blood Pressure 128/72 02/28/2022 4:53 PM PUBLIC SAFETY TEACHER Pulse 78 02/28/2022 4:53 PM PUBLIC SAFETY TEACHER Temperature 36.8 ??C (98.2 ??F) 02/28/2022 4:53 PM CS T Respiratory Rate 18 02/28/2022 4:53 PM PUBLIC SAFETY TEACHER Oxygen Saturation 99% 02/28/2022 4:53 PM PUBLIC SAFETY TEACHER Inhaled Oxygen Concentration - - Weight 127.7 kg (281 lb 9.6 oz) 02/28/2022 2:21 PM PUBLIC SAFETY TEACHER Height - - Body Mass Index 36.33 02/15/2022 9:40 AM PUBLIC SAFETY TEACHER documented in this encounter Nursing Notes * Diamond Dempsey, ALICIA - 02/28/2022 2:30 PM CST Oncology Nursing Note [facility] Jeff Abdullahi is a 71 y.o. male who presents for treatment 16 of IVIG Pre-treatment Nursing Assessment Nursing Assessment Appetite: Good Diarrhea: No Constipation: No Last BM Date: 02/28/22 Existing Patients: Any falls since your last visit?: No New Patients: Any falls since your last visit?: N/A Fatigue: Occassional Mouth Sores: No Nausea/Vomiting: No Neurological symptoms: No Pain: Yes (achinessMD aware) Peripheral Neuropathy: Yes (toesbabatunde MD aware) Pt states has potential to be ?: N/A Shortness of Breath?: No Skin Condition/Temp: Warm, Dry Oral Mucosa Grade: Normal (0) Abdomen: Soft Swelling: No Additional Notes: BP: 128/72 Temp: 36.8 ??C (98.2 ??F) Temp src: Temporal Pulse: 78 Resp: 18 SpO2: 99 % Weight: 127.7 kg (281 lb 9.6 oz) Pain Score: 0 - No pain Treatment Patient: met treatment parameters Pre blood return: Brisk Jeff Abdullahi tolerated treatment well. Patient was frequently observed and monitored throughout the administration of their treatment. Additional Notes: VSS, obtained per orders; no s/s of reaction noted throughout treatment; pt to contact MD team if issues arise; AVS printed for next appointments Post blood return: Brisk IV access post infusion: NS; PIV removed Patient Education Treatment Education: Information/teaching given to patient including signs and symptoms of infection, bleeding, adverse reaction, symptom management, process and procedure related to today's visit, when to notify MD, and other: follow-up Response: Verbalizes understanding Discharge Plan Discharge instructions given to patient. Future appointments given and reviewed with treatment plan. Discharge Mode: Ambulatory Accompanied by: Self Discharged To: Home IC SAFETY TEACHER documented in this encounter Plan of [...] 650 mg 650 mg, oral, Once, On Sat02/28/22 at 1515, For 1 dose, Please give 30 minutes prior to IVIG.Indications:Hypogamm aglobulinemia (HCC) Given 02/28/2022 2:42 PM PUBLIC SAFETY TEACHER 650 mg diphenhydrAMINE (BENADRYL) tab/cap 25 mg 25 mg, oral, Once, On Sat02/28/22 at 1515, For 1 dose, Give 30 minutes prior to IVIG.Indications:Hypogamm aglobulinemia (HCC) Given 02/28/2022 2:42 PM PUBLIC SAFETY TEACHER 25 mg immune globulin (GAMUNEX-C,GAMMAKED) 10 % infusion 35 g 35 g (rounded from 32.72 g = 400 mg/kg ? 81.8 kg [place] weight), intravenous, Once, On Sat02/28/22 at 1515, For 1 dose, GamuNEX C SUBSEQUENT Infusion, [...] every 15 minutes.Indications:Hypog ammaglobulinemia (HCC) Rate/Dose Change 02/28/2022 5:08 PM PUBLIC SAFETY TEACHER 393 mL/hr Rate/Dose Change 02/28/2022 4:53 PM PUBLIC SAFETY TEACHER 344 mL/ hr Rate/Dose Change 02/28/2022 4:38 PM PUBLIC SAFETY TEACHER 294 mL/ hr documented in this encounter Orders Nursing Count Last Ordered Date First Orde red Date ONCBCN NURSING COMMUNICATION [id number] 2 1 05/01/2021 VITAL SIGNS INTRA-INFUSION 1 02/28/2022 Appointment Requests Count Last Ordered Date Fi rst Ordered Date INFUSION APPT REQUEST 300 MIN 1 02/28/2022 documented in this encounter Additional Health Concerns Infection Onset Date Last Indicated Resolved Time C. difficile Comment:Backloaded December 21, 2010 09/21/2010 09/21/2010 documented as of this encounter Care Teams Olap Developer Relationship Specialty Start Date End Date Lenin Ventura MD [address] [place] [address] PCP - General 07/06/16 Lenin Ventura MD [address] [place] [address] 07/06/16 Burt Dos Santos MD PhD [address] [place] [address] Medical Oncologist/Chief Communications Officer Medical Oncology 06/16/19 documented as of this encounter
--- OUTSIDE RECORDS SUMMARY | 2024-02-22 08:29 | XMS_ITS | Encounter Summary ---
Author Organization [facility] Address [address] [place] [address] Phone Care Team Providers Care Sales Representative Health Insurance Name Role Phone Lenin Ventura MD Primary Care Provider [phone] Lenin Ventura MD Unavailable [phone] Burt Dos Santos MD PhD Unavailable [phone] Reason for Visit * Reason Onset Date Comments referral 06/25/2022 Encounter Details Date Type Department Care Team (Late st Contact Info) Description 06/25/2022 Telephone [facility] Dermatology [address] [facility] [address] [place] [address] Annita Broussard referral Social History Tobacco Use Types Packs/Day Years Used Date Smoking Tobacco: Former Smokeless Tobacco: Never Alcohol Use Standard Drinks/Week Comments Not Currently 0 (1 standard drink = 0.6 oz pur e alcohol) Sex and Gender Information Value Date Recorded Sex Assigned at Not on file 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 Fuentes [facility] [address] Pt will view appt details in My Chart. * Telephone Encounter - Aracelis Leavitt RMA - 06/28/2022 2:49 PM CDT Called pt- LMOR for pt to call me back at [phone] Will document on referral * Telephone Encounter - Annita Broussard - 06/25/2022 9:25 AM CDT Pt has a referral from BMT in system documented in this encounter Plan of Treatment Not on file documented as of this encounter Visit Diagnoses Not on filedocumented in this encounter Additional Health Concerns Infection Onset Date Last Indicated Resolved Time C. difficile Comment:Backloaded December 21, 2010 09/21/2010 09/21/2010 documented as of this encounter Care Teams Sales Representative Health Insurance Relationship Specialty Start Date End Date Lenin Ventura MD [address] [address] PCP - General 07/06/16 Lenin Ventura MD [address] [address] 07/06/16 Burt Dos Santos MD PhD [address] [address] Medical Oncologist/Admissions Clinician Medical Oncology 06/16/19 documented as of this encounter
--- OUTSIDE RECORDS SUMMARY | 2024-02-22 08:29 | XMS_ITS | Encounter Summary ---
Author Organization [facility] Address [address] [place] [address] Phone Care Team Providers Care Chronometer Tester Name Role Phone Lenin Ventura MD Primary Care Provider [phone] Lenin Ventura MD Unavailable [phone] Burt Dos Santos MD PhD Unavailable [phone] Reason for Visit * Episode Based Medications (Routine) - Authorized Specialty Diagnoses / Procedures Referred By Contguillermo t Referred To Contact Diagnoses Hypogammaglobulinemia (HCC) Procedures [place] GAMUNEX-C/GAMMAKED GAMUNEX Burt Dos Santos MD PhD [address] DIV IM BONE MARROW TRANSPLANT, [address] [place] [address] Phone: tel: fax: [facility] [address] [facility] 7th [place] [address] Phone: tel: Referral ID Status Reason Start Date Expiration Date V isits Requested Visits Authorized [id number] Authorized 10/19/2019 08/02/2024 1 38 Encounter Details Date Type Department Care Team (Late st Contact Info) Description 03/28/2022 1:30 PM GARMENT INSPECTOR Infusion [facility] Oncology [address] [place] [address] [place] [address] CLL (chronic lymphocytic leukemia) (CMS/HCC) (HCC) (Primary Dx); Hypogammaglobulinemia (CMS/HCC) (HCC) Social History Tobacco Use Types Packs/Day Years Used Date Smoking Tobacco: Former Smokeless Tobacco: Never Alcohol Use Standard Drinks/Week Comments Not Currently 0 (1 standard drink = 0.6 oz pur e alcohol) Sex and Gender Information Value Date Recorded Sex Assigned at Not on file Legal Sex Male 9:45 AM GARMENT INSPECTOR Gender Identity Not on file Sexual Orientation Not on file documented as of this encounter Last Filed Vital Signs Vital Sign Reading Time Taken Comments Blood Pressure 130/68 03/28/2022 1:16 PM GARMENT INSPECTOR Pulse 76 03/28/2022 1:16 PM GARMENT INSPECTOR Temperature 36.7 ??C (98.1 ??F) 03/28/2022 1:16 PM CS T Respiratory Rate 16 03/28/2022 1:16 PM GARMENT INSPECTOR Oxygen Saturation 97% 03/28/2022 1:16 PM GARMENT INSPECTOR Inhaled Oxygen Concentration - - Weight 124.3 kg (274 lb) 03/28/2022 1:16 PM GARMENT INSPECTOR Height - - Body Mass Index 35.35 02/15/2022 9:40 AM GARMENT INSPECTOR documented in this encounter Nursing Notes * Sada Whitfield - 03/28/2022 1:30 PM CST Oncology Nursing Note [facility] Jeff Abdullahi is a 71 y.o. male who presents for IVIG Pre-treatment Nursing Assessment Nursing Assessment Appetite: Good Diarrhea: No Constipation: No Last BM Date: 03/28/22 Existing Patients: Any falls since your last visit?: No Fatigue: Occassional Mouth Sores: No (occasional, none at this time) Nausea/Vomiting: No Neurological symptoms: No Pain: No Peripheral Neuropathy: Yes (unchanged) Shortness of Breath?: No Additional Notes: BP: 130/68 Temp: 36.7 ??C (98.1 ??F) Temp src: Transdermal Pulse: 76 Resp: 16 SpO2: 97 % Weight: 124.3 kg (274 lb) Treatment Patient: met treatment parameters Pre blood return: Brisk Jeff Abdullahi tolerated treatment well. Patient was frequently observed and monitored throughout the administration of their treatment. Additional Notes: Pt tolerated treatment well. No reaction noted. No questions or concerns. Will call team with any issues that arise. Discharged in stable condition. Follow up appts with pt. Post blood return: Brisk IV access post infusion: NS Patient Education Treatment Education: Information/teaching given to patient including process and procedure related to today's visit Response: Verbalizes understanding Discharge Plan Discharge instructions given to patient. Future appointments given and reviewed with treatment plan. Discharge Mode: Ambulatory Accompanied by: Self Discharged To: Home ENT INSPECTOR documented in this encounter Plan of Treatment [...] 650 mg 650 mg, oral, Once, On Sat03/28/22 at 1400, For 1 dose, Please give 30 minutes prior to IVIG.Indications:Hypogammaglobu linemia (HCC) Given 03/28/2022 1:30 PM GARMENT INSPECTOR 650 mg diphenhydrAMINE (BENADRYL) tab/cap 25 mg 25 mg, oral, Once, On Sat03/28/22 at 1400, For 1 dose, Give 30 minutes prior to IVIG.Indications:Hypogammaglobu linemia (HCC) Given 03/28/2022 1:30 PM GARMENT INSPECTOR 25 mg immune globulin (GAMUNEX-C,GAMMAKED) 10 % infusion 35 g 35 g (rounded from 32.72 g = 400 mg/kg ? 81.8 kg [place] weight), intravenous, Once, On Sat03/28/22 at 1400, For 1 dose, GamuNEX C [...] every 15 minutes.Indications:Hypogammagl obulinemia (HCC) Rate/Dose Change 03/28/2022 3:36 PM GARMENT INSPECTOR 344 mL/hr Rate/Dose Change 03/28/2022 3:20 PM GARMENT INSPECTOR 294 mL/ hr Rate/Dose Change 03/28/2022 3:05 PM GARMENT INSPECTOR 245 mL/ hr documented in this encounter Orders Nursing Count Last Ordered Date First Orde red Date ONCBCN NURSING COMMUNICATION [id number] 2 0 03/28/2022 VITAL SIGNS INTRA-INFUSION 1 03/28/2022 Appointment Requests Count Last Ordered Date Fi rst Ordered Date INFUSION APPT REQUEST 300 MIN 1 03/28/2022 documented in this encounter Additional Health Concerns Infection Onset Date Last Indicated Resolved Time C. difficile Comment:Backloaded December 21, 2010 09/21/2010 09/21/2010 documented as of this encounter Care Teams Chronometer Tester Relationship Specialty Start Date End Date Lenin Ventura MD [address] [address] PCP - General 07/06/16 Lenin Ventura MD [address] [address] 07/06/16 Burt Dos Santos MD PhD [id number] [id number] Medical Oncologist/Coding And Reimbursement Specialist Medical Oncology 06/16/19 documented as of this encounter
--- OUTSIDE RECORDS SUMMARY | 2024-02-22 08:29 | XMS_ITS | Encounter Summary ---
Author Organization [facility] Address [address] [place] [address] Phone Care Team Providers Care Gambling Supervisor Name Role Phone Lenin Ventura MD Primary Care Provider [phone] Lenin Ventura MD Unavailable [phone] Burt Dos Santos MD PhD Unavailable [phone] Reason for Visit * Reason Onset Date Comments Imb[employer] Assistance 04/17/2022 Encounter Details Date Type Department Care Team (Late st Contact Info) Description 04/17/2022 Documentation [facility] Bone Marrow Transplant [address] 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 Patient has been approved for [employer] assistance. Approval is through 06/25/2022. Patientmust sign attestation to get approval for the remainder of the year. Forms has been sent to [employer]y [employer]ag[employer] chart. E I INSTRUCTIONAL ASSISTANT documented in this encounter Plan of Treatment Not on file documented as of this encounter Visit Diagnoses Not on filedocumented in this encounter Additional Health Concerns Infection Onset Date Last Indicated Resolved Time C. difficile Comment:Backloaded December 21, 2010 09/21/2010 09/21/2010 documented as of this encounter Care Teams Gambling Supervisor Relationship Specialty Start Date End Date Lenin Ventura MD [address] [address] PCP - General 07/06/16 Lenin Ventura MD [address] [address] 07/06/16 Burt Dos Santos MD PhD [address] [address] Medical Oncologist/Machine Stacker Medical Oncology 06/16/19 documented as of this encounter
--- OUTSIDE RECORDS SUMMARY | 2024-02-22 08:29 | XMS_ITS | Encounter Summary ---
Author Organization [facility] Address [address] [place] [address] Phone Care Team Providers Care Pure Culture Operator Name Role Phone Lenin Ventura MD Primary Care Provider [phone] Lenin Ventura MD Unavailable [phone] Burt Dos Santos MD PhD Unavailable [phone] Reason for Visit * Episode Based Medications (Routine) - Authorized Specialty Diagnoses / Procedures Referred By Contguillermo t Referred To Contact Diagnoses Hypogammaglobulinemia (HCC) Procedures [place] GAMUNEX-C/GAMMAKED GAMUNEX Burt Dos Santos MD PhD [address] DIV IM BONE MARROW TRANSPLANT, [address] [place] [address] Phone: tel: fax: [facility] [place] [address] [facility] 7th [place] [address] Phone: tel: Referral ID Status Reason Start Date Expiration Date V isits Requested Visits Authorized [id number] Authorized 10/19/2019 08/02/2024 1 38 Encounter Details Date Type Department Care Team (Late st Contact Info) Description 05/24/2022 11:00 AM CDT Infusion [facility] Oncology [address] [place] [address] [place] [address] CLL (chronic lymphocytic leukemia) (CMS/HCC) (HCC) (Primary Dx); Hypogammaglobulinemia (CMS/HCC) (HCC) Social History Tobacco Use Types Packs/Day Years Used Date Smoking Tobacco: Former Smokeless Tobacco: Never Alcohol Use Standard Drinks/Week Comments Not Currently 0 (1 standard drink = 0.6 oz pur e alcohol) Sex and Gender Information Value Date Recorded Sex Assigned at Not on file 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 Gender Identity Not on file Sexual Orientation Not on file documented as of this encounter Last Filed Vital Signs Vital Sign Reading Time Taken Comments Blood Pressure 150/76 05/24/2022 1:15 PM CDT Pulse 73 05/24/2022 1:15 PM CDT Temperature 36.7 ??C (98.1 ??F) 05/24/2022 1:15 PM CD T Respiratory Rate 18 05/24/2022 1:15 PM CDT Oxygen Saturation 96% 05/24/2022 1:15 PM CDT Inhaled Oxygen Concentration - - Weight - - Height - - Body Mass Index - - documented in this encounter Nursing Notes * Madie Jenkins - 05/24/2022 11:00 AM CDT Oncology Nursing Note [facility] Jeff Abdullahi is a 71 y.o. male who presents for IVIG. Pre-treatment Nursing Assessment Nursing Assessment Appetite: Good Diarrhea: Yes (States it comes and goes. States it is loose today, but not diarrhea. States MD is aware.) Constipation: No Last BM Date: 05/24/22 Existing Patients: Any falls since your last visit?: No Fatigue: Occassional Mouth Sores: No Nausea/Vomiting: No (States he has nausea occasionally) Neurological symptoms: No Pain: No Peripheral Neuropathy: Yes (feet, unchanged) Pt states has potential to be ?: N/A Shortness of Breath?: No Skin Condition/Temp: Warm, Dry, No swelling Oral Mucosa Grade: Normal (0) Swelling: No Additional Notes: States he drove himself. BP: 130/76 Temp: 36.6 ??C (97.8 ??F) Temp src: Transdermal Pulse: 87 Resp: 18 SpO2: 95 % Weight: 124.6 kg (274 lb 9.6 oz) Pain Score: 0 - [...] mg 650 mg, oral, Once, On [place] 05/24/22 at 1115, For 1 dose, Please give 30 minutes prior to IVIG.Indications:Hypogamm aglobulinemia (HCC) Given 05/24/2022 10:53 AM CDT 650 mg dextrose 5% infusion 20 mL/hr, intravenous, As needed, As needed- back up fluids for infusions, Starting on [place] 05/24/22 at 1043Indications:Hypogamma globulinemia (HCC),CLL (chronic lymphocytic leukemia) (HCC) New Bag 05/24/2022 10:40 AM CDT 20 mL/hr 20 mL/hr diphenhydrAMINE (BENADRYL) tab/cap 25 mg 25 mg, oral, Once, On [place] 05/24/22 at 1115, For 1 dose, Give 30 minutes prior to IVIG.Indications:Hypogamm aglobulinemia (HCC) Given 05/24/2022 10:53 AM CDT 25 mg immune globulin (GAMUNEX-C,GAMMAKED) 10 % infusion 35 g 35 g (rounded from 32.72 g = 400 mg/kg ? 81.8 kg [place] weight), intravenous, Once, On [place] 05/24/22 at 1115, For 1 dose, GamuNEX C SUBSEQUENT Infusion, [...] every 15 minutes.Indications:Hypog ammaglobulinemia (HCC) Rate/Dose Change 05/24/2022 1:15 PM CDT 344 mL/hr Rate/Dose Change 05/24/2022 12:57 PM CDT 296 mL /hr Rate/Dose Change 05/24/2022 12:40 PM CDT 244 mL /hr documented in this encounter Orders Nursing Count Last Ordered Date First Orde red Date ONCBCN NURSING COMMUNICATION [id number] 2 0 05/24/2022 VITAL SIGNS INTRA-INFUSION 1 05/24/2022 Appointment Requests Count Last Ordered Date Fi rst Ordered Date INFUSION APPT REQUEST 300 MIN 1 05/24/2022 documented in this encounter Additional Health Concerns Infection Onset Date Last Indicated Resolved Time C. difficile Comment:Backloaded December 21, 2010 09/21/2010 09/21/2010 documented as of this encounter Care Teams Pure Culture Operator Relationship Specialty Start Date End Date Lenin Ventura MD [address] [place] [address] PCP - General 07/06/16 Lenin Ventura MD [id number] [address] 07/06/16 Burt Dos Santos MD PhD [id number] [address] Medical Oncologist/Dock Coordinator Medical Oncology 06/16/19 documented as of this encounter
--- OUTSIDE RECORDS SUMMARY | 2024-02-22 08:29 | XMS_ITS | Encounter Summary ---
Author Organization [facility] Address [address] [place] [address] Phone Care Team Providers Care Oil Recovery Unit Operator Name Role Phone Lenin Ventura MD Primary Care Provider [phone] Lenin Ventura MD Unavailable [phone] Burt Dos Santos MD PhD Unavailable [phone] Reason for Visit * Oncology (Routine) - Authorized Specialty Diagnoses / Procedures Referred By Contac t Referred To Contact Oncology Diagnoses CLL (chronic lymphocytic leukemia) (HCC) Procedures ONCBCN ARM DRAW APPT ONC LAB ONLY Burt Dos Santos MD PhD Phone: tel: fax: Burt Dos Santos MD PhD Phone: tel: fax: Referral ID Status Reason Start Date Expiration Date Visits Requested Visits Authorized [id number] Authorized Specialty Services Required 07/03/2019 03/12/2024 99 99 Encounter Details Date Type Department Care Team (Late st Contact Info) Description 04/25/2022 12:30 PM PATIENT SAFETY SITTER Lab [facility] Oncology [facility] 7th [place] [address] [place] [address] CLL (chronic lymphocytic leukemia) (CMS/HCC) (HCC); Hypogammaglobulinemia (CMS/HCC) (HCC) Social History Tobacco Use Types Packs/Day Years Used Date Smoking Tobacco: Former Smokeless Tobacco: Never Alcohol Use Standard Drinks/Week Comments Not Currently 0 (1 standard drink = 0.6 oz pur e alcohol) Sex and Gender Information Value Date Recorded Sex Assigned at Not on file Legal Sex Male 9:45 AM PATIENT SAFETY SITTER Gender Identity Not on file Sexual Orientation [...] rst Ordered Date ONCBCN LAB APPOINTMENT 1 04/25/2022 documented in this encounter Additional Health Concerns Infection Onset Date Last Indicated Resolved Time C. difficile Comment:Backloaded December 21, 2010 09/21/2010 09/21/2010 documented as of this encounter Care Teams Oil Recovery Unit Operator Relationship Specialty Start Date End Date Lenin Ventura MD [address] [address] PCP - General 07/06/16 Lenin Ventura MD [address] [address] 07/06/16 Burt Dos Santos MD PhD [address] [address] Medical Oncologist/Market Development Director Medical Oncology 06/16/19 documented as of this encounter
--- OUTSIDE RECORDS SUMMARY | 2024-02-22 08:29 | XMS_ITS | Encounter Summary ---
Author Organization [facility] Address [address] [place] [address] Phone Care Team Providers Care Recycling Attendant Name Role Phone Lenin Ventura MD Primary Care Provider [phone] Lnein Ventura MD Unavailable [phone] Burt Dos Santos MD PhD Unavailable [phone] Reason for Visit * Episode Based Medications (Routine) - Authorized Specialty Diagnoses / Procedures Referred By Contguillermo t Referred To Contact Diagnoses Hypogammaglobulinemia (HCC) Procedures LA GAMUNEX-C/GAMMAKED GAMUNEX Burt Dos Santos MD PhD [address] DIV IM BONE MARROW TRANSPLANT, [address] [place] [address] Phone: tel: fax: [facility] [address] 7th [place] [address] Phone: tel: Referral ID Status Reason Start Date Expiration Date V isits Requested Visits Authorized [id number] Authorized 10/19/2019 08/02/2024 1 38 Encounter Details Date Type Department Care Team (Late st Contact Info) Description 06/21/2022 1:00 PM CDT Infusion [facility] Oncology [address] [place] [address] [place] [address] CLL (chronic lymphocytic leukemia) (HCC) (Primary Dx); Hypogammaglobulinemia (HCC) Social History Tobacco Use Types Packs/Day Years Used Date Smoking Tobacco: Former Smokeless Tobacco: Never Alcohol Use Standard Drinks/Week Comments Not Currently 0 (1 standard drink = 0.6 oz pur e alcohol) Sex and Gender Information Value Date Recorded Sex Assigned at Not on file 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 Male 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 Gender Identity Not on file Sexual Orientation Not on file documented as of this encounter Last Filed Vital Signs Vital Sign Reading Time Taken Comments Blood Pressure 127/67 06/21/2022 2:46 PM CDT Pulse 80 06/21/2022 2:46 PM CDT Temperature 36.8 ??C (98.2 ??F) 06/21/2022 2:46 PM CD T Respiratory Rate 18 06/21/2022 2:46 PM CDT Oxygen Saturation 98% 06/21/2022 2:46 PM CDT Inhaled Oxygen Concentration - - Weight 126.1 kg (278 lb) 06/21/2022 1:10 PM CDT Height - - Body Mass Index 35.87 02/15/2022 9:40 AM BLANKET WEAVER documented in this encounter Nursing Notes * Amie Carbajal, ALICIA - 06/21/2022 1:00 PM CDT Oncology Nursing Note [facility] Jeff Abdullahi is a 71 y.o. male who presents for treatment 20 of IVIG. Pre-treatment Nursing Assessment Nursing Assessment Appetite: Good Diarrhea: No Constipation: No Existing Patients: Any falls since your last visit?: No New Patients: Any falls since your last visit?: N/A Fatigue: Occassional Mouth Sores: No Nausea/Vomiting: No Neurological symptoms: No Pain: No Peripheral Neuropathy: Yes (No change) Pt states has potential to be ?: N/A Shortness of Breath?: No Skin Condition/Temp: Dry, Warm Oral Mucosa Grade: Normal (0) Abdomen: Soft Swelling: No BP: 127/67 Temp: 36.8 ??C (98.2 ??F) Pulse: 80 Resp: 18 SpO2: 98 % Weight: 126.1 kg (278 lb) Pain Score: 0 - No pain Treatment Patient: met treatment parameters Pre blood return: Brisk Jeff Abdullahi tolerated treatment well. Patient was frequently observed and monitored throughout the administration of their treatment. Additional Notes: Patient tolerated infusion well. Post blood return: Brisk IV access post [...] mg 650 mg, oral, Once, On [place] 06/21/22 at 1345, For 1 dose, Please give 30 minutes prior to IVIG.Indications:Hypogammaglobu linemia (HCC) Given 06/21/2022 1:30 PM CDT 650 mg diphenhydrAMINE (BENADRYL) tab/cap 25 mg 25 mg, oral, Once, On [place] 06/21/22 at 1345, For 1 dose, Give 30 minutes prior to IVIG.Indications:Hypogammaglobu linemia (HCC) Given 06/21/2022 1:30 PM CDT 25 mg immune globulin (GAMUNEX-C,GAMMAKED) 10 % infusion 35 g 35 g (rounded from 32.72 g = 400 mg/kg ? 81.8 kg [place] weight), intravenous, Once, On [place] 06/21/22 at 1345, For 1 dose, GamuNEX C SUBSEQUENT Infusion, [...] every 15 minutes.Indications:Hypogammagl obulinemia (HCC) Rate/Dose Change 06/21/2022 4:04 PM CDT 344 mL/hr Rate/Dose Change 06/21/2022 3:48 PM CDT 294 mL/ hr Rate/Dose Change 06/21/2022 3:20 PM CDT 245 mL/ hr documented in this encounter Orders Nursing Count Last Ordered Date First Orde red Date ONCBCN NURSING COMMUNICATION [id number] 0 06/21/2022 VITAL SIGNS INTRA-INFUSION 1 06/21/2022 Appointment Requests Count Last Ordered Date Fi rst Ordered Date INFUSION APPT REQUEST 300 MIN 1 06/21/2022 documented in this encounter Additional Health Concerns Infection Onset Date Last Indicated Resolved Time C. difficile Comment:Backloaded December 21, 2010 09/21/2010 09/21/2010 documented as of this encounter Care Teams Recycling Attendant Relationship Specialty Start Date End Date Lenin Ventura MD [address] [address] PCP - General 07/06/16 Lenin Ventura MD [address] [place] [address] 07/06/16 Burt Dos Santos MD PhD [address] [address] Medical Oncologist/Drum Operator Medical Oncology 06/16/19 documented as of this encounter
--- OUTSIDE RECORDS SUMMARY | 2024-02-22 08:29 | XMS_ITS | Encounter Summary ---
Author Organization [facility] Address [address] [place] [address] Care Team Providers Care Press Reader Name Role Phone Lenin Ventura MD Primary Care Provider [phone] Lenin Ventura MD Unavailable [phone] Burt Dos Santos MD PhD Unavailable [phone] Encounter Details Date Type Department Care Team (Latest Contact Info) Description 06/21/2022 10:22 AM CDT - 06/21/2022 11:59 PM CDT Hospital Encounter [facility] Advanced Medicine [facility] ([facility]) [address] [place] [address] CLL (chronic lymphocytic leukemia) (HCC) Discharge Disposition: Discharge to home or self care Social History Tobacco Use Types Packs/Day Years Used Date Smoking Tobacco: Former Smokeless Tobacco: Never Alcohol Use Standard Drinks/Week Comments Not Currently 0 (1 standard drink = 0.6 oz pur e alcohol) Sex and Gender Information Value Date Recorded Sex Assigned at Not on file 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 Gender Identity Not on file Sexual Orientation [...] Date/Time Associated Diagnosis Comments DIFFERENTIAL AUTO STAT 06/21/2022 12: 33 PM CDT CLL (chronic lymphocytic leukemia) (HCC) CBC WITH AUTO DIFFERENTIAL STAT 06/21/2022 12:33 PM CDT CLL (chronic lymphocytic leukemia) (HCC) LACTATE DEHYDROGENASE STAT 06/21/2022 12:33 PM CDT CLL (chronic lymphocytic leukemia) (HCC) documented in this encounter Results * (ABNORMAL) Differential, auto (06/21/2022 12:33 PM CDT) Neutrophil abs 6.7(H) 1.8 - 6.6 K/cumm [facility] Comment:Testing performed by : [facility], [address] [place] [phone] Lymphocyte abs 7.2(H) 1.2 - 3.3 K/cumm [facility] Comment:Testing performed by : [facility], [address] [place] [phone] Monocyte abs 0.6 0.2 - 1.2 K/cumm [facility] Comment:Testing performed by : [facility], [address] [place] [phone] Eosinophil abs 0.1 0.0 - 0.5 K/cumm [facility] Comment:Testing performed by : [facility], [address] [place] [phone] Basophil abs 0.1 0.0 - 0.2 K/cumm [facility] Comment:Testing performed by : [facility], [address] [place] [phone] Neutrophil pct 45.6 % [facility] Comment: Interpretive Data Percent cell count reference ranges are not reported, since discordance with absolute values may lead to misinterpretation of CBC data. Current Interpretive Data was last revised on 2017. Testing performed by: [facility], [address] [place] [phone] Lymphocyte pct 48.9 % [facility] Comment: Interpretive Data Percent cell count reference ranges are not reported, since discordance with absolute values may lead to misinterpretation of CBC data. Current Interpretive Data was last revised on 2017. Testing performed by: [facility], [address] [place] [phone] Monocyte pct 3.8 % [facility] Comment:Testing performed by : [facility], [address] [place] [phone] Eosinophil pct 1.0 % [facility] Comment:Testing performed by : [facility], [address] [place] [phone] Basophil pct 0.7 % [facility] Comment:Testing performed by : [facility], [address] [place] [phone] Blood 06/21/2022 12:3 3 PM CDT 06/21/2022 12:34 PM CDT us Magali Phelan [place] CELL TENDER HELPER LAB BLOOD ORDERABLES Final Res ult [facility] [place] [address] * (ABNORMAL) CBC with auto differential (06/21/2022 12:33 PM CDT) WBC 14.7(H) 3.8 - 9.8 K/cumm [facility] Comment:Testing performed by : [facility], [address] [place] [phone] Hgb 13.9 13.8 - 17.2 g/dL [facility] Comment:Testing performed by : [facility], [address] [place] [phone] Hct 41.9 40.7 - 50.3 % [facility] Comment:Testing performed by : [facility], [address] [place] [phone] Plt 182 140 - 440 K/cumm [facility] Comment:Testing performed by : [address] [address] MPV 11.2(H) 6.8 - 10.4 fL [facility] Comment:Testing performed by : [facility], [address] [place] [phone] RBC 4.48(L) 4.50 - 5.70 M/cumm [facility] Comment:Testing performed by : [address] [phone] MCV 93.5 80.0 - 97.6 fL [facility] Comment:Testing performed by : [address] [address] MCH 31.1 26.7 - 33.7 pg [facility] Comment:Testing performed by : [facility], [address] [place] [phone] MCHC 33.2 32.7 - 35.5 g/dL [facility] Comment:Testing performed by : [facility], [address] [place] [phone] RDW CV 14.5 11.8 - 14.6 % [facility] Comment:Testing performed by : [facility], [address] [place] [phone] NRBC abs 0.01 0.00 - 0.01 K/cumm [facility] Comment:Testing performed by : [facility], [address] [place] [phone] Blood 06/21/2022 12:3 3 PM CDT 06/21/2022 12:34 PM CDT Magali Stapleton CELL TENDER HELPER LAB BLOOD ORDERABLES Final Res ult Performing Organization Address City/[facility] Co de Phone Number [facility] [place] [address] * Lactate dehydrogenase (LD) (06/21/2022 12:33 PM CDT) Lactate dehydrogenase (LDH) 163 100 - 250 Units/L [facility] Comment:Testing performed by : [facility], [address] [place] [phone] Blood 06/21/2022 12:3 3 PM CDT 06/21/2022 12:34 PM CDT Magali SJulisa Stapleton CELL TENDER HELPER LAB BLOOD ORDERABLES Final Res ult Performing Organization Address City/[facility] Co de Phone Number [facility] [place] [address] documented in this encounter Visit Diagnoses Diagnosis CLL (chronic lymphocytic leukemia) (HCC) Chronic lymphoid leukemia, without mention of having achieved remission documented in this encounter Additional Health Concerns Infection Onset Date Last Indicated Resolved Time C. difficile Comment:Backloaded December 21, 2010 09/21/201009/21/2010 documented as of this encounter Care Teams Press Reader Relationship Specialty Start Date End Date Lenin Ventura MD [address] [place] [address] PCP - General 07/06/16 Lenin Ventura MD [address] [address] 07/06/16 Burt Dos Santos MD PhD [address] [id number] Medical Oncologist/Dough Raiser Medical Oncology 06/16/19 documented as of this encounter
--- OUTSIDE RECORDS SUMMARY | 2024-02-22 08:29 | XMS_ITS | Encounter Summary ---
Author Organization [facility] Address [address] [place] [address] Phone Care Team Providers Care Engineer Name Role Phone Lenin Ventura MD Primary Care Provider [phone] Lenin Ventura MD Unavailable [phone] Burt Dos Santos MD PhD Unavailable [phone] Reason for Referral * Consultation (Routine) - Closed Specialty Diagnoses / Procedures Referred By Trent delgado Referred To Contact Dermatology Diagnoses CLL (chronic lymphocytic leukemia) ([facility]) Magali Stapleton NP [address] DIV BONE MARROW TRANSPLANT, [address] [place] [address] Phone: tel: fax: [facility] Dermatology [address] [facility] [address] [place] [address] Phone: tel: fax: Referral ID Status Reason Start Date Expiration Date V isits Requested Visits Authorized [id number] Closed Specialty Services Required 06/04/2022 07/04/2023 12 12 Question Answer Please select the performing region: [facility] (All Locations) [[id number]] Please select the performing department: [facility] DERM COH 502 [[id number]] # of visits: 1 Comments Rash on hands, arms and groin. Encounter Details Date Type Department Care Team (Late st Contact Info) Description 06/04/2022 Orders Only [facility] Bone Marrow Transplant [address] [facility] 7th Floor, [place] [address] MeadviewMagali, PAINT FORMULATOR [address] IM BONE MARROW TRANSPLANT, [address] [place] [address] CLL (chronic lymphocytic leukemia) (HCC) (Primary Dx) Social History Tobacco Use Types Packs/Day Years Used Date Smoking Tobacco: Former Smokeless Tobacco: Never Alcohol Use Standard Drinks/Week Comments Not Currently 0 (1 standard drink = 0.6 oz pur e alcohol) Sex and Gender Information Value Date Recorded Sex Assigned at Not on file 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 Gender Identity Not on file Sexual Orientation Not on file documented as of this encounter Plan of Treatment Scheduled Referrals Name Type Priority Associated Diagnoses Orde r Schedule Ambulatory referral to Dermatology Outpatient Referral Routine CLL (chronic lymphocytic leukemia) (CMS/HCC) (HCC) Expected: 06/18/2022 (Approximate), Expires: 06/05/2023 documented as of this encounter Visit Diagnoses Diagnosis CLL (chronic lymphocytic leukemia) (HCC)- Primary Chronic lymphoid leukemia, without mention of having achieved remission documented in this encounter Additional Health Concerns Infection Onset Date Last Indicated Resolved Time C. difficile Comment:Backloaded December 21, 2010 09/21/2010 09/21/2010 documented as of this encounter Care Teams Engineer Relationship Specialty Start Date End Date Lenin Ventura MD [address] [address] PCP - General 07/06/16 Lenin Ventura MD [address] [address] 07/06/16 Burt Dos Santos MD PhD [address] [address] Medical Oncologist/Tabulating Clerk Medical Oncology 06/16/19 documented as of this encounter
--- OUTSIDE RECORDS SUMMARY | 2024-02-22 08:29 | XMS_ITS | Encounter Summary ---
Author Organization [facility] Address [address] [place] [address] Phone Care Team Providers Care Dental Laboratory Worker Name Role Phone Lenin Ventura MD Primary Care Provider [phone] Lenin Ventura MD Unavailable [phone] Burt Dos Santos MD PhD Unavailable [phone] Reason for Visit * Oncology (Routine) - Authorized Specialty Diagnoses / Procedures Referred By Contac t Referred To Contact Oncology Diagnoses CLL (chronic lymphocytic leukemia) (HCC) Procedures ONCBCN ARM DRAW APPT ONC LAB ONLY Burt Dos Santos MD PhD Phone: tel: fax: Burt Dos Santos MD PhD Phone: tel: fax: Referral ID Status Reason Start Date Expiration Date Visits Requested Visits Authorized [id number] Authorized Specialty Services Required 07/03/2019 03/12/2024 99 99 Encounter Details Date Type Department Care Team (Late st Contact Info) Description 03/28/2022 12:30 PM CAB WORKER Lab 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 difficile Comment:Backloaded December 21, 2010 09/21/2010 09/21/2010 documented as of this encounter Care Teams Dental Laboratory Worker Relationship Specialty Start Date End Date Lenin Ventura MD [address] [address] PCP - General 07/06/16 Lenin Ventura MD [address] [address] 07/06/16 Burt Dos Santos MD PhD [address] [address] Medical Oncologist/Tool Maintenance Technician Medical Oncology 06/16/19 documented as of this encounter
--- OUTSIDE RECORDS SUMMARY | 2024-02-22 08:29 | XMS_ITS | Encounter Summary ---
Author Organization [facility] Address [address] [place] [address] Phone Care Team Providers Care Research Hydrologist Name Role Phone Lenin Ventura MD Primary Care Provider [phone] Lenin Ventura MD Unavailable [phone] Burt Dos Santos MD PhD Unavailable [phone] Encounter Details Date Type Department Care Team (Late st Contact Info) Description 05/31/2022 Orders Only [facility] Bone Marrow Transplant [address] [facility] 7th Floor, [place] [address] Roberta Watkins RN CLL (chronic lymphocytic leukemia) (CMS/HCC) (HCC) (Primary Dx) Social History Tobacco Use Types Packs/Day Years Used Date Smoking Tobacco: Former Smokeless Tobacco: Never Alcohol Use Standard Drinks/Week Comments Not Currently 0 (1 standard drink = 0.6 oz pur e alcohol) Sex and Gender Information Value Date Recorded Sex Assigned at Not on file 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 Gender Identity Not on file Sexual Orientation Not on file documented as of this encounter Ordered Prescriptions Prescription Sig Dispense Quantity Refills Last Filled Start Date End Date acalabrutinib maleate (CALQUENCE) 100 mg tabletIndications: Chronic Lymphocytic Leukemia Take 1 tablet (100 mg total) by mouth 2 (two) times a day Swallow whole with water and with or without food 60 tablet 3 05/31/2022 3 documented in this encounter Plan of Treatment Not on file documented as of this encounter Visit Diagnoses Diagnosis CLL (chronic lymphocytic leukemia) (HCC)- Primary Chronic lymphoid leukemia, without mention of having achieved remission documented in this encounter Discontinued Medications Medication Sig Discontinue Reason Start Date End Da te ibrutinib (Imbruvica) 420 mg tabletIndications:CLL (chronic lymphocytic leukemia) (HCC) Take 1 tablet (420 mg total) by mouth daily Other 03/28/2022 05/31/2022 documented as of this encounter Additional Health Concerns Infection Onset Date Last Indicated Resolved Time C. difficile Comment:Backloaded December 21, 2010 09/21/2010 09/21/2010 documented as of this encounter Care Teams Research Hydrologist Relationship Specialty Start Date End Date Lenin Ventura MD [address] [place] [address] PCP - General 07/06/16 Lenin Ventura MD [address] [place] [address] 07/06/16 Burt Dos Santos MD PhD [address] [place] [id number] Medical Oncologist/Addictions Recovery Specialist Medical Oncology 06/16/19 documented as of this encounter
--- OUTSIDE RECORDS SUMMARY | 2024-02-22 08:29 | XMS_ITS | Encounter Summary ---
Author Organization [facility] Address [address] [place] [address] Phone Care Team Providers Care Outside Laborer Name Role Phone Lenin Ventura MD Primary Care Provider [phone] Lenin Ventura MD Unavailable [phone] Burt Dos Santos MD PhD Unavailable [phone] Reason for Visit * Reason Comments Rash * Consultation (Routine) - Closed Specialty Diagnoses / Procedures Referred By Trent t Referred To Contact Dermatology Diagnoses CLL (chronic lymphocytic leukemia) (HCC) Magali Stapleton, SENIOR QUALITY TECHNICIAN [address] DIV IM BONE MARROW TRANSPLANT, [address] [place] [address] Phone: tel: fax: [facility] Dermatology [address] [place] [address] Outpatient Health [address] [place] [address] Phone: tel: fax: Referral ID Status Reason Start Date Expiration Date V isits Requested Visits Authorized [id number] Closed Specialty Services Required 06/04/2022 07/04/2023 12 12 Encounter Details Date Type Department Care Team (Late st Contact Info) Description 07/04/2022 1:15 PM CDT Office Visit [facility] Dermatology [address] [place] [address] Outpatient Health [address] [place] [address] Jun Fuentes MD [address] [place] [address] AVE [facility] [address] [place] [address] Folliculitis (Primary Dx); Xerosis cutis; Hand eczema Social History Tobacco Use Types Packs/Day Years Used Date Smoking Tobacco: Former Smokeless Tobacco: Never Alcohol Use Standard Drinks/Week Comments Not Currently 0 (1 standard drink = 0.6 oz pur e alcohol) Sex and Gender Information Value Date Recorded Sex Assigned at Not on file 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 male who presents for a new patient visit for tender spots on arm/ hand. Jeff notes that for the past 2 months, he's had tender bumps on his L forearm and dorsal hand. They start as red bumps and then become a pimple-like lesion. Also notes very dry skin - worst on his hands - sometimes they crack, and he has been using a thickmoisturizer which helps. Has also been prescribed triamcinolone in the past. Denies any other changing moles, rashes, non healing sores, or tender spots. Medications/Allergies/PMH: reviewed in chart ROS: Denies fever, chills, lymphadenopathy VITALS: There were no vitals taken for this visit. PHYSICAL EXAM: GENERAL: Appears well. No acute distress. ORIENTATION: Alert MOOD/AFFECT: Normal affect. The patient's face, ears, scalp/hair, eyes/eyelids, lips, neck, chest, back, abdomen, bilateral upper extremities, bilateral lower extremities, digits/nails, and buttocks were examined and normal, unless specified below: On the L dorsal forearm and L hand: erythematous follicular papules Dry xerotic skin through - concentrated on the palmar hands with superficial fissuring at fingertips ASSESSMENT AND PLAN: #Folliculitis -Discussed that this is likely a side effect of his ibrutinib -Also discussed that this is not a dangerous rash -START clindamycin 1% lotion BID PRN bumps on arms/hands SER including local irritation #Xerosis cutis #Hand eczema -Encouraged thick bland emollients daily, especially after bathing -Avoid hot showers and harsh soaps -OK to continue triamcinolone as prescribed for flares of hand rash Follow-up: PRN Tracey Golden MD Dermatology PGY3 July 04, 2022 Cosigned by Jun Fuentes MD at 07/06/2022 2:00 PM CDT Associated attestation - Jun Fuentes MD - 07/06/2022 2:00 PM CDT ATTESTATION: I have seen and examined the patient. I agree with the findings and plan of care as documented in the resident's note. Jun Fuentes MD documented in this encounter Plan of Treatment Not on file documented as of this encounter Visit Diagnoses Diagnosis Folliculitis- Primary Other specified disease of hair and hair follicles Xerosis cutis Other specified disease of sebaceous glands Hand eczema Contact dermatitis and other eczema, due to unspecified cause documented in this encounter Historical Medications * This list may reflect changes made after this encounter. triamcinolone (KENALOG) 0.5 % cream APPLY TOPIALLY TO RASH TWICE DAILY NEEDED FOR UP TO 2 WEEKS AT A TIME 06/02/2022 added in this encounter Orders Outpatient Referral Count Last Ordered Date Fir st Ordered Date AMB REFERRAL TO DERMATOLOGY 1 07/04/2022 documented in this encounter Additional Health Concerns Infection Onset Date Last Indicated Resolved Time C. difficile Comment:Backloaded December 21, 2010 09/21/2010 09/21/2010 documented as of this encounter Care Teams Outside Laborer Relationship Specialty Start Date End Date Lenin Ventura MD [address] [address] PCP - General 07/06/16 Lenin Ventura MD [address] [address] 07/06/16 Burt Dos Santos MD PhD [address] [id number] Medical Oncologist/Quarry Plug And Feather Driller Medical Oncology 06/16/19 documented as of this encounter
--- OUTSIDE RECORDS SUMMARY | 2024-02-22 08:29 | XMS_ITS | Encounter Summary ---
Author Organization [facility] Address [address] [place] [address] Phone Care Team Providers Care Erp Manager Name Role Phone Lenin Ventura MD Primary Care Provider [phone] Lenin Ventura MD Unavailable [phone] Burt Dos Santos MD PhD Unavailable [phone] Encounter Details Date Type Department Care Team (Late st Contact Info) Description 04/02/2022 Telephone [facility] Bone Marrow Transplant [address] 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 ICE DEPARTMENT MANAGER * Telephone Encounter - Zenobia Iverson Addison - 04/02/2022 9:30 AM CST Patient calling as his william for his chemo medication has ran out and a new application needs to besubmitted. He is also almost out of the medication. ICE DEPARTMENT MANAGER documented in this encounter Plan of Treatment Not on file documented as of this encounter Visit Diagnoses Not on filedocumented in this encounter Additional Health Concerns Infection Onset Date Last Indicated Resolved Time C. difficile Comment:Backloaded December 21, 2010 09/21/2010 09/21/2010 documented as of this encounter Care Teams Erp Manager Relationship Specialty Start Date End Date Lenin Ventura MD [address] [address] PCP - General 07/06/16 Lenin Ventura MD [address] [address] 07/06/16 Burt Dos Santos MD PhD [address] [address] Medical Oncologist/Director [facility] Medical Oncology 06/16/19 documented as of this encounter
--- OUTSIDE RECORDS SUMMARY | 2024-02-22 08:30 | XMS_ITS | Encounter Summary ---
Author Organization [facility] Address [address] [place] [address] Phone Care Team Providers Care Tin Whiz Machine Operator Name Role Phone Lenin Ventura MD Primary Care Provider [phone] Lenin Ventura MD Unavailable [phone] Burt Dos Santos MD PhD Unavailable [phone] Reason for Visit * Oncology (Routine) - Authorized Specialty Diagnoses / Procedures Referred By Contac t Referred To Contact Oncology Diagnoses CLL (chronic lymphocytic leukemia) (HCC) Procedures ONCBCN ARM DRAW APPT ONC LAB ONLY Burt Dos Santos MD PhD Phone: tel: fax: Burt Dos Santos MD PhD Phone: tel: fax: Referral ID Status Reason Start Date Expiration Date Visits Requested Visits Authorized [id number] Authorized Specialty Services Required 07/03/2019 03/12/2024 99 99 Encounter Details Date Type Department Care Team (Late st Contact Info) Description 07/13/2021 9:30 AM CDT Lab [facility] Oncology [facility] 7th [place] [address] [place] [address] CLL (chronic lymphocytic leukemia) (CMS/HCC) (HCC) Social History Tobacco Use Types Packs/Day Years Used Date Smoking Tobacco: Former Smokeless Tobacco: Never Alcohol Use Standard Drinks/Week Comments Not Currently 0 (1 standard drink = 0.6 oz pur e alcohol) Sex and Gender Information Value Date Recorded Sex Assigned at Not on file 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 difficile Comment:Backloaded December 21, 2010 09/21/2010 09/21/2010 documented as of this encounter Care Teams Tin Whiz Machine Operator Relationship Specialty Start Date End Date Lenin Ventura MD [facility] [address] [address] PCP - General 07/06/16 Lenin Ventura MD [facility] [address] [address] 07/06/16 Burt Dos Santos MD PhD [facility] [address] [address] Medical Oncologist/Power Sweeper Operator Medical Oncology 06/16/19 documented as of this encounter
--- OUTSIDE RECORDS SUMMARY | 2024-02-22 08:30 | XMS_ITS | Encounter Summary ---
Author Organization [facility] Address [address] [place] [address] Phone Care Team Providers Care Credit Card Clerk Name Role Phone Lenin Ventura MD Primary Care Provider [phone] Lenin Ventura MD Unavailable [phone] Burt Dos Santos MD PhD Unavailable + [phone] Encounter Details Date Type Department Care Team (Late st Contact Info) Description 09/22/2021 Orders Only [facility] Bone Marrow Transplant [address] [facility] Advanced [facility] 7th Floor, [place] [address] Roberta Watkins RN Social History Tobacco Use Types Packs/Day Years Used Date Smoking Tobacco: Former Smokeless Tobacco: Never Alcohol Use Standard Drinks/Week Comments Not Currently 0 (1 standard drink = 0.6 oz pur e alcohol) Sex and Gender Information Value Date Recorded Sex Assigned at Not on file 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 difficile Comment:Backloaded December 21, 2010 09/21/2010 09/21/2010 documented as of this encounter Care Teams Credit Card Clerk Relationship Specialty Start Date End Date Lenin Ventura MD [address] [place] [address] PCP - General 07/06/16 Lenin Ventura MD [address] [id number] 07/06/16 Burt Dos Santos MD PhD [address] [address] Medical Oncologist/Manager Assembly Medical Oncology 06/16/19 documented as of this encounter
--- OUTSIDE RECORDS SUMMARY | 2024-02-22 08:30 | XMS_ITS | Encounter Summary ---
Author Organization [facility] Address [address] [place] [address] Phone Care Team Providers Care Child Support Specialist Name Role Phone Lenin Ventura MD Primary Care Provider [phone] Lenin Ventura MD Unavailable [phone] Burt oDs Santos MD PhD Unavailable [phone] Reason for Visit * Reason Comments OP Infusion * Episode Based Medications (Routine) - Authorized Specialty Diagnoses / Procedures Referred By Contac t Referred To Contact Diagnoses Hypogammaglobulinemia (HCC) Procedures [place] GAMUNEX-C/GAMMAKED GAMUNEX Burt Dos Santos MD PhD [address] DIV IM BONE MARROW TRANSPLANT, [address] [place] [address] Phone: tel: fax: [facility] and [address] 7th [place] [address] Phone: tel: Referral ID Status Reason Start Date Expiration Date V isits Requested Visits Authorized [id number] Authorized 10/19/2019 08/02/2024 1 38 Encounter Details Date Type Department Care Team (Late st Contact Info) Description 10/20/2021 9:00 AM CDT Infusion [facility] Oncology [address] [place] [address] 7th [place] [address] CLL (chronic lymphocytic leukemia) (CMS/HCC) (HCC) (Primary Dx); Hypogammaglobulinemia (CMS/HCC) (HCC) Social History Tobacco Use Types Packs/Day Years Used Date Smoking Tobacco: Former Smokeless Tobacco: Never Alcohol Use Standard Drinks/Week Comments Not Currently 0 (1 standard drink = 0.6 oz pur e alcohol) Sex and Gender Information Value Date Recorded Sex Assigned at Not on file 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 Gender Identity Not on file Sexual Orientation Not on file documented as of this encounter Last Filed Vital Signs Vital Sign Reading Time Taken Comments Blood Pressure 118/68 10/20/2021 12:05 PM CDT Pulse 74 10/20/2021 12:05 PM CDT Temperature 36.5 ??C (97.7 ??F) 10/20/2021 1 2:05 PM CDT Respiratory Rate 20 10/20/2021 12:0 5 PM CDT Oxygen Saturation 96% 10/20/2021 12: 05 PM CDT Inhaled Oxygen Concentration - - Weight 126.5 kg (278 lb 12.8 oz) 10/20/2021 8:51 AM CDT Height - - Body Mass Index 35.97 09/22/2021 9:55 AM CDT documented in this encounter Nursing Notes * Yuki Gibbs, ALICIA - 10/20/2021 9:00 AM CDT Oncology Nursing Note [facility] Jeff Abdullahi is a 71 y.o. male who presents for treatment 15 of IVIG Pre-treatment Nursing Assessment Nursing Assessment Appetite: Fair Diarrhea: No Constipation: No Last BM Date: 10/20/21 Existing Patients: Any falls since your last visit?: No Fatigue: Occassional Mouth Sores: No Nausea/Vomiting: No Neurological symptoms: No Pain: No Peripheral Neuropathy: Yes (unchanged) Pt states has potential to be ?: N/A Shortness of Breath?: No Skin Condition/Temp: Warm, Dry Oral Mucosa Grade: Normal (0) Abdomen: Soft Swelling: No Additional Notes: BP: 118/68 Temp: 36.5 ??C (97.7 ??F) Temp src: Transdermal Pulse: 74 Resp: 20 SpO2: 96 % Weight: 126.5 kg (278 lb 12.8 oz) Pain Score: 0 - No pain Treatment Patient: met treatment parameters Pre blood return: Brisk. PIV started. Jeff Abdullahi tolerated treatment well. Patient was frequently observed and monitored throughout the administration of their treatment. Additional Notes: See VS flowsheet. Pt felt nauseous during beginning of infusion. ASHVIN Palacios notified. Administered 8mg IV zofran. Pt reports relief after zofran administration. Post blood return: Brisk IV access post infusion: NS. PIV removed. Patient Education Treatment Education: Information/teaching given to patient including symptom management and processand procedure related to today's visit Response: Verbalizes [...] 650 mg 650 mg, oral, Once, On Sat10/20/21 at 0930, For 1 dose, Please give 30 minutes prior to IVIG.Indications:Hypogamm aglobulinemia (HCC) Given 10/20/2021 9:01 AM CDT 650 mg diphenhydrAMINE (BENADRYL) tab/cap 25 mg 25 mg, oral, Once, On Sat10/20/21 at 0930, For 1 dose, Give 30 minutes prior to IVIG.Indications:Hypogamm aglobulinemia (HCC) Given 10/20/2021 9:01 AM CDT 25 mg immune globulin (GAMUNEX-C,GAMMAKED) 10 % infusion 35 g 35 g (rounded from 32.72 g = 400 mg/kg ? 81.8 kg [place] weight), intravenous, Once, On Sat10/20/21 at 0930, For 1 dose, Administer over: 1 mg/kg/min x 30 minutes, then 2 mg/kg/min x 30 minutes, then 4 mg/kg/min x 30 minutes, then 6 mg/kg/min x 30 minutes, then 8 mg/kg/min until infusion complete. If initial titration was well tolerated, subsequent infusions may be titrated every 15 minutes.Indications:Hypog ammaglobulinemia (HCC) Rate/Dose Change 10/20/2021 12:05 PM CDT 344 mL/hr Rate/Dose Change 10/20/2021 11:50 AM CDT 294 mL /hr Rate/Dose Change 10/20/2021 11:24 AM CDT 245 mL /hr ondansetron (ZOFRAN) injection 8 mg 8 mg, intravenous, Administer over 2 Minutes, Once, On Sat10/20/21 at 1145, For 1 doseIndications:CLL (chronic lymphocytic leukemia) (HCC),Hypogammaglobulinemia (HCC) Given 10/20/2021 11:14 AM CDT 8 mg documented in this encounter Orders Nursing Count Last Ordered Date First Orde red Date ONCBCN NURSING COMMUNICATION [id number] 2 0 10/20/2021 VITAL SIGNS INTRA-INFUSION 1 10/20/2021 Appointment Requests Count Last Ordered Date Fi rst Ordered Date INFUSION APPT REQUEST 300 MIN 1 10/20/2021 documented in this encounter Additional Health Concerns Infection Onset Date Last Indicated Resolved Time C. difficile Comment:Backloaded December 21, 2010 09/21/2010 09/21/2010 documented as of this encounter Care Teams Child Support Specialist Relationship Specialty Start Date End Date Lenin Ventura MD [address] [address] PCP - General 07/06/16 Lenin Ventura MD [address] [address] 07/06/16 Burt Dos Santos MD PhD [address] [address] Medical Oncologist/Emergency Care Attendant Medical Oncology 06/16/19 documented as of this encounter
--- OUTSIDE RECORDS SUMMARY | 2024-02-22 08:30 | XMS_ITS | Encounter Summary ---
Author Organization [facility] Address [address] [place] [address] Phone Care Team Providers Care Fisher Purse Seine Name Role Phone Lenin Ventura MD Primary Care Provider [phone] Lenin Ventura MD Unavailable [phone] Burt Dos Santos MD PhD Unavailable [phone] Reason for Visit * Oncology (Routine) - Authorized Specialty Diagnoses / Procedures Referred By Contac t Referred To Contact Medical Oncology / Oncology Diagnoses Appt Comment: LAB Procedures RETURN Lenin Ventura MD [address] [place] [address] Phone: tel: fax: Burt Dos Santos MD PhD [address] [facility] [place] [address] DIV IM BONE MARROW TRANSPLANT, 5TH, [address] [place] [address] Phone: tel: fax: Referral ID Status Reason Start Date Expiration Date V isits Requested Visits Authorized [id number] Authorized 08/02/2017 03/12/2024 99 99 Encounter Details Date Type Department Care Team (Late st Contact Info) Description 07/13/2021 10:00 AM CDT Office Visit [facility] Bone Marrow Transplant [address] 7th Floor, [place] [address] Burt Dos Santos MD PhD [address] DIV IM BONE MARROW TRANSPLANT[address] [place] [address] CLL (chronic lymphocytic leukemia) ([facility]) ([facility]) Social History Tobacco Use Types Packs/Day Years Used Date Smoking Tobacco: Former Smokeless Tobacco: Never Alcohol Use Standard Drinks/Week Comments Not Currently 0 (1 standard drink = 0.6 oz pur e alcohol) Sex and Gender Information Value Date Recorded Sex Assigned at Not on file 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 Gender Identity Not on file Sexual Orientation Not on file documented as of this encounter Last Filed Vital Signs Vital Sign Reading Time Taken Comments Blood Pressure 128/80 07/13/2021 9:45 AM CDT Pulse 81 07/13/2021 9:45 AM CDT Temperature 36.8 ??C (98.2 ??F) 07/13/2021 9:45 AM CD T Respiratory Rate 18 07/13/2021 9:45 AM CDT Oxygen Saturation 95% 07/13/2021 9:45 AM CDT Inhaled Oxygen Concentration - - Weight 130.8 kg (288 lb 6.4 oz) 07/13/2021 9:45 AM CDT Height - - Body Mass Index 37.03 09/08/2020 10:31 AM CDT documented in this encounter Progress Notes * Josef Wellington MD - 07/13/2021 10:00 AM CDT BMT Progress Note Oncology History CLL (chronic lymphocytic leukemia) ([facility]/H[facility]) ([facility]) 07/03/2005 Initial Diagnosis Lymphoma, small [...] then q2mo x 4; [place] clinical [place] [facility] [id number] stable disease on CT; marrow 30-40% [...] He was last seen in clinic on 03/16/21. Since then, he has felt well in general. He continues on ibrutinib 420 mg daily. He has toleratedthis well, with chronic toxicities including loose stools, easy bruising and bleeding on his hands and forearms, sinus infections, and mouth sores, which he treats with acyclovir. These side effects are manageable. He denies any recent infections, fevers, chills, night sweats, palpitations, chest pain or discomfort, or worsening fatigue. Regarding sinus infections, he manages with flonase, sinus rinses, and occasionally zyrtec, which provides reasonable relief. Does not feel that he needs IVIG at the present time, in part due to prohibitive cost. Notes that sinus problems run in his family, with his mom having hay fever. 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 Outpatient Encounter Medications as of 07/13/2021: ??? acyclovir (ZOVIRAX) 200 mg capsule, Take 2 capsules (400 mg total) by mouth 2 (two) times a day, Disp: 180 capsule, Rfl: 3 ??? ALPRAZolam (XANAX) 0.25 mg tablet, Take 0.5-1 tablets by mouth 3 (three) times a day as needed for anxiety, Disp: , Rfl: ??? amoxicillin-clavulanate (AUGMENTIN) 875-125 mg per tablet, TK 1 T PO BID (Patient not taking: Reported on 03/16/2021), Disp: , Rfl: ??? cholecalciferol (cholecalciferol) 1000 unit tablet, Take 1 tablet (1,000 Units total) by mouth daily, Disp: 30 tablet, Rfl: 11 ??? cyanocobalamin (Vitamin B-12) 1,000 mcg tablet, Take 1 tablet (1,000 mcg total) by mouth daily,Disp: 30 tablet, Rfl: 11 ??? doxycycline 100 mg tablet, Take 100 mg by mouth 2 (two) times a day (Patient not taking: Reported on 03/16/2021), Disp: , Rfl: ??? DULoxetine DR (CYMBALTA) 30 mg capsule, Take 30 mg by mouth daily (Patient not taking: Reportedon 03/16/2021), Disp: , Rfl: ??? fluticasone (FLONASE) 50 mcg/actuation nasal spray, Administer 2 sprays into each nostril daily, Disp: , Rfl: ??? Imbruvica 420 mg tablet, TAKE 1 TABLET BY MOUTH ONCE DAILY WITH A FULL GLASS OF WATER, Disp: 28 tablet, Rfl: 3 ??? levoFLOXacin (LEVAQUIN) 500 mg tablet, Take 500 mg by mouth daily (Patient not taking: Reportedon 03/16/2021), Disp: , Rfl: ??? magnesium oxide (MAG-OX) 250 mg (150.8 mg elemental) tablet, Take 1 tablet (250 mg total) by mouth daily, Disp: , Rfl: ??? melatonin 5 mg capsule, Take 5 mg by mouth nightly as needed (insomnia), Disp: , Rfl: 0 ??? mupirocin (BACTROBAN) 2 % ointment, Apply 1 inch of ointment to nasal irrigations 3x's daily, Disp: 30 g, Rfl: 3 ??? sildenafiL (VIAGRA) 100 mg tablet, , Disp: , Rfl: ??? traZODone (DESYREL) 50 mg tablet, Take 50 mg by mouth nightly, Disp: , Rfl: ??? zinc 50 mg tablet, Take 50 mg by mouth daily, Disp: 30 each, Rfl: 0 Objective Vitals: BP: 128/80 Temp: 36.8 ??C (98.2 ??F) Temp src: Transdermal Pulse: 81 Resp: 18 SpO2: 95 % Weight: 130.8 kg (288 lb 6.4 oz) Physical exam: ECOG PS 0 General: No distress. Pleasant, cooperative. HEENT: No conjunctival pallor or scleral icterus. No mucositis. Supple neck. Lymph: No palpable adenopathy. Heart: RRR without murmurs or gallops. Lungs: No adventitious breath sounds. Abdomen: Obese. Spleen not palpated. Extremities: Non-pitting edema noted bilaterally. Skin: Pale. Ecchymoses noted on dorsum of right hand. No petechiae or purpura. Lab/Radiology/Diagnostic Review: CBC: Lab Results Component Value Date/Time WBC 12.1 (H) 07/13/2021 09:35 AM WBC 13.7 (H) 04/10/2019 03:03 PM HGB 14.5 07/13/2021 09:35 AM HGB 14.2 04/10/2019 03:03 PM HCT 42.5 07/13/2021 09:35 AM HCT 41.2 04/10/2019 03:03 PM LABPLAT 139 (L) 07/13/2021 09:35 AM LABPLAT 158 04/10/2019 03:03 PM NEUTROABS 5.5 07/13/2021 09:35 AM NEUTROABS 4,590 04/10/2019 03:03 PM CMP: Lab Results Component Value Date/Time SODIUM 139 07/13/2021 09:35 AM POTASSIUM 4.6 07/13/2021 09:35 AM CO2 27 07/13/2021 09:35 AM BUNSER 14 07/13/2021 09:35 AM GLUCOSE 107 07/13/2021 09:35 AM CREATININE 0.72 (L) 07/13/2021 09:35 AM CALCIUM 9.3 07/13/2021 09:35 AM CHLORIDE 104 07/13/2021 09:35 AM ALBUMIN 4.5 07/13/2021 09:35 AM AST 16 07/13/2021 09:35 AM ALT 17 07/13/2021 09:35 AM ALKPHOS 93 07/13/2021 09:35 AM BILITOT 0.6 07/13/2021 09:35 AM PROT 6.0 (L) 07/13/2021 09:35 AM ANIONGAP 8 07/13/2021 09:35 AM LDH: Lab Results Component Value Date/Time LDH 173 07/13/2021 09:35 AM Radiology: No imaging today. Assessment and Plan: Mr. Abdullahi is a very pleasant 70-year-old gentleman with SLL/CLL who was initially treated [...] and has continued evidence of clinical response. 1.?Recurrent SLL/CLL: He continues to tolerate ibrutinib well. Experiences minor side effects,including diarrhea and bruising, though these are manageable. He has chronic sinus infections, which improved with less human contact after retiring. 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 No cardiac toxicity noted. We briefly discussed the multitude of therapeutic options in CLL in the event of intolerability or progression of disease. ?? 2.?Recurrent sinus infections: Known allergies prior to starting BTK inhibitors, though worsened now. Has completed 6 cycles of IVIG. IgG levels are <300 07/13/21. He continues on supportive care, including flonase, sinuses rinses, and zyrtec, which provides adequate relief. The cost of IVIGis prohibitive at the current time at around $700 per treatment. ? As always, the patient knows to contact our office with any questions or concerns in the interim. Josef Wellington MD documented in this encounter Nursing Notes * Roberta Watkins RN - 07/13/2021 10:00 AM CDT ROV with Dr. Wellington for CLL. 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 ROV in 3-4 months documented in this encounter Plan of Treatment Not on file documented as of this encounter Results * (ABNORMAL) IgG (11/09/2021 9:49 AM CDT) Pathologist [facility] Immunoglobulin G 687.0(L) 700.0 - 1,600.0 mg/dL [facility] Blood 11/09/2021 9:49 AM CDT 11/09/2021 10:19 AM CDT Burt Dos Santos MD PhD LAB BLOOD ORDERABLES Final Result Performing Organization Address [facility] Co de Phone Number [facility] [place], [place] [id number] * Lactate dehydrogenase (LD) (11/09/2021 9:49 AM CDT) [facility] Lactate dehydrogenase (LDH) 148 100 - 250 Units/L [facility] Comment:Testing performed by : [facility], [address] [place] [phone] Blood 11/09/2021 9:49 AM CDT 11/09/2021 9:50 AM CDT us Burt Dos Santos MD PhD LAB BLOOD ORDERABLES Final Result Performing Organization Address [facility] Co de Phone Number [facility] [employer] [place], [place] [id number] * Comprehensive metabolic panel (11/09/2021 9:49 AM CDT) [facility] Sodium 139 135 - 145 mmol/L [facility] Comment:Testing performed by : [facility], [address] [place] [phone] Potassium, pl 4.4 3.3 - 4.9 mmol/L [facility] Comment:Testing performed by : [facility], [address] [place] [phone] Chloride 104 97 - 110 mmol/L [facility] Comment:Testing performed by : [facility], [address] [place] [phone] CO2 27 22 - 32 mmol/L [facility] Comment:Testing performed by : [facility], [address] [place] [phone] Anion gap 8 2 - 15 mmol/L [facility] Comment:Testing performed by : [facility], [address] [place] [phone] BUN 18 8 - 25 mg/dL [facility] Comment:Testing performed by : [facility], [address] [place] [phone] Creatinine 0.87 0.80 - 1.30 mg/dL [facility] Comment:Testing performed by : [facility], [address] [place] [phone] Glucose 160 70 - 199 mg/dL [facility] Comment: [...] was last revised 2017. Testing performed by: [facility], [address] [place] [phone] Calcium 9.4 8.5 - 10.3 mg/dL [facility] Comment:Testing performed by : [facility], [address] [place] [address] Bilirubin, total 0.7 0.1 - 1.2 mg/dL [facility] Comment:Testing performed by : [facility], [address] [place] [phone] Protein, pl 6.7 6.5 - 8.5 g/dL [facility] Comment:Testing performed by : [facility], [address] [place] [phone] Albumin 4.5 3.5 - 5.0 g/dL [facility] Comment:Testing performed by : [facility], [address] [place] [address] Alk phos 81 40 - 130 Units/L [facility] Comment:Testing performed by : [facility], [address] [place] [phone] ALT 19 7 - 55 Units/L [facility] Comment:Testing performed by : [facility], [address] [place] [phone] AST 17 10 - 50 Units/L [facility] Comment:Testing performed by : [facility], [address] [place] [phone] Blood 11/09/2021 9:49 AM CDT 11/09/2021 9:50 AM CDT Burt Dos Santos MD PhD LAB BLOOD ORDERABLES Final Result [facility]STR[facility] [address] [facility] [place] [address] * (ABNORMAL) CBC with auto differential (11/09/2021 9:49 AM CDT) WBC 11.4(H) 3.8 - 9.8 K/cumm [facility] Comment:Testing performed by : [facility], [address] [place] [phone] Hgb 14.6 13.8 - 17.2 g/dL [facility] Comment:Testing performed by : [address] [phone] Hct 42.9 40.7 - 50.3 % [facility] Comment:Testing performed by : [facility], [address] [place] [phone] Plt 154 140 - 440 K/cumm [facility] Comment:Testing performed by : [address] [address] MPV 11.8(H) 6.8 - 10.4 fL [facility] Comment:Testing performed by : [address] [phone] RBC 4.63 4.50 - 5.70 M/cumm [facility] Comment:Testing performed by : [facility], [address] [place] [phone] MCV 92.6 80.0 - 97.6 fL VANESSA [facility] Comment:Testing performed by : [facility], [address] [place] [phone] MCH 31.6 26.7 - 33.7 pg VANESSA [facility] Comment:Testing performed by : [facility], [address] [place] [phone] MCHC 34.2 32.7 - 35.5 g/dL [facility]ANESSA [facility] Comment:Testing performed by : [facility], [address] [place] [phone] RDW CV 15.2(H) 11.8 - 14.6 % VANESSA [facility] Comment:Testing performed by : [facility], [address] [place] [phone] NRBC abs 0.01 0.00 - 0.01 K/cumm VANESSA [facility] Comment:Testing performed by : [facility], [address] [place] [phone] Blood 11/09/2021 9:49 AM CDT 11/09/2021 9:50 AM CDT Burt Dos Santos MD PhD LAB BLOOD ORDERABLES Final Result [facility] [address] [facility] [place] [address] documented in this encounter Visit Diagnoses Diagnosis CLL (chronic lymphocytic leukemia) (HCC) Chronic lymphoid leukemia, without mention of having achieved remission documented in this encounter Orders Appointment Requests Count Last Ordered Date Fi rst Ordered Date ONCBCN CLINIC APPOINTMENT REQUEST 2 022 07/13/2021 ONCBCN LAB APPOINTMENT 1 11/09/2021 documented in this encounter Additional Health Concerns Infection Onset Date Last Indicated Resolved Time C. difficile Comment:Backloaded December 21, 2010 09/21/2010 09/21/2010 documented as of this encounter Care Teams Fisher Purse Seine Relationship Specialty Start Date End Date Lenin Ventura MD [address] [address] PCP - General 07/06/16 Lenin Ventura MD [facility] [address] [address] 07/06/16 Burt Dos Santos MD PhD [facility] [address] [id number] Medical Oncologist/Calculus Tutor Medical Oncology 06/16/19 documented as of this encounter
--- OUTSIDE RECORDS SUMMARY | 2024-02-22 08:30 | XMS_ITS | Encounter Summary ---
Author Organization [facility] Healthcare Address [address] [place] [address] Care Team Providers Care Educational Technology Coordinator Name Role Phone Lenin Ventura MD Primary Care Provider [phone] Lenin Ventura MD Unavailable [phone] Burt Dos Santos MD PhD Unavailable [phone] Encounter Details Date Type Department Care Team (Latest Contact Info) Description 02/15/2022 12:16 PM AITCHBONE BREAKER - 02/15/2022 11:59 PM AITCHBONE BREAKER Hospital Encounter [facility] Advanced Medicine [facility] ([facility]) [address] [place] [phone] CLL (chronic lymphocytic leukemia) ([facility]/HCC) ([facility]) Discharge Disposition: Discharge to home or self care Social History Tobacco Use Types Packs/Day Years Used Date Smoking Tobacco: Former Smokeless Tobacco: Never Alcohol Use Standard Drinks/Week Comments Not Currently 0 (1 standard drink = 0.6 oz pur e alcohol) Sex and Gender Information Value Date Recorded Sex Assigned at Not on file Legal Sex Male 9:45 AM AITCHBONE BREAKER Gender Identity Not on file Sexual Orientation [...] Priority Date/Time Associated Diagnosis Comments EGFR Routine 02/15/2022 9:29 AM AITCHBONE BREAKER CLL (chronic lymphocytic leukemia) ([facility]/HCC) ([facility]) DIFFERENTIAL AUTO Routine 02/15/2022 9:2 9 AM AITCHBONE BREAKER CLL (chronic lymphocytic leukemia) ([facility]/HCC) ([facility]) CBC WITH AUTO DIFFERENTIAL Routine 02/15/2022 9:29 AM AITCHBONE BREAKER CLL (chronic lymphocytic leukemia) ([facility]) ([facility]) LACTATE DEHYDROGENASE Routine 02/15/2022 9:29 AM AITCHBONE BREAKER CLL (chronic lymphocytic leukemia) (CMS/[facility]) ([facility]) IGG Routine 02/15/2022 9:29 AM AITCHBONE BREAKER CLL (chronic lymphocytic leukemia) (CMS/HCC) (HCC) COMPREHENSIVE METABOLIC PANEL Routine 02/15/2022 9:29 AM AITCHBONE BREAKER CLL (chronic lymphocytic leukemia) (CMS/HCC) (HCC) documented in this encounter Results * eGFR (02/15/2022 9:29 AM AITCHBONE BREAKER) eGFR >90 90 - 130 mL/min/1. 73 m2 [facility] Comment: Interpretive Data Reference Interval Normal ?>/= [...] was last reviewed 2021. Testing performed by: [facility], [address] [place] [phone] Blood 02/15/2022 9:29 AM AITCHBONE BREAKER 02/15/2022 9:30 AM AITCHBONE BREAKER us Magali Stapleton PILLOWCASE TURNER LAB BLOOD ORDERABLES Final Res ult [facility] [place] [address] * (ABNORMAL) Differential, auto (02/15/2022 9:29 AM AITCHBONE BREAKER) Neutrophil abs 5.7 1.8 - 6.6 K/cumm CERNER [facility]J Comment:Testing performed by : [facility], [address] [place] [phone] Lymphocyte abs 6.4(H) 1.2 - 3.3 K/cumm CERNER BJ Comment:Testing performed by : [facility], [address] [place] [phone] Monocyte abs 1.0 0.2 - 1.2 K/cumm CERNER BJ Comment:Testing performed by : [facility], [address] [place] [phone] Eosinophil abs 0.1 0.0 - 0.5 K/cumm CERNER BJ Comment:Testing performed by : [facility], [address] [place] [phone] Basophil abs 0.1 0.0 - 0.2 K/cumm CERNER BJ Comment:Testing performed by : [facility], [address] [place] [phone] Neutrophil pct 43.2 % CERNER BJ Comment: Interpretive Data Percent cell count reference ranges are not reported, since discordance with absolute values may lead to misinterpretation of CBC data. Current Interpretive Data was last revised on 2017. Testing performed by: [facility], [address] [place] [phone] Lymphocyte pct 48.6 % CERNER BJ Comment: Interpretive Data Percent cell count reference ranges are not reported, since discordance with absolute values may lead to misinterpretation of CBC data. Current Interpretive Data was last revised on 2017. Testing performed by: [facility], [address] [place] [phone] Monocyte pct 7.4 % [facility] Comment:Testing performed by : [facility], [address] [place] [phone] Eosinophil pct 0.4 % [facility] Comment:Testing performed by : [facility], [address] [place] [phone] Basophil pct 0.4 % [facility] Comment:Testing performed by : [facility], [address] [place] [phone] Blood 02/15/2022 9:29 AM AITCHBONE BREAKER 02/15/2022 9:30 AM AITCHBONE BREAKER Magali Stapleton PILLOWCASE TURNER LAB BLOOD ORDERABLES Final Res ult [facility] [place] [address] * (ABNORMAL) CBC with auto differential (02/15/2022 9:29 AM AITCHBONE BREAKER) WBC 13.2(H) 3.8 - 9.8 K/cumm [facility] Comment:Testing performed by : [facility], [address] [place] [phone] Hgb 14.1 13.8 - 17.2 g/dL [facility] Comment:Testing performed by : [facility], [address] [place] [phone] Hct 42.4 40.7 - 50.3 % [facility] Comment:Testing performed by : [address] [phone] Plt 180 140 - 440 K/cumm [facility] Comment:Testing performed by : [facility], [address] [place] [phone] MPV 12.0(H) 6.8 - 10.4 fL [facility] Comment:Testing performed by : [address] [phone] RBC 4.46(L) 4.50 - 5.70 M/cumm [facility] Comment:Testing performed by : [address] [phone] MCV 95.0 80.0 - 97.6 fL [facility] Comment:Testing performed by : [facility], [address] [place] [phone] MCH 31.7 26.7 - 33.7 pg [facility] Comment:Testing performed by : [facility], [address] [place] [phone] MCHC 33.3 32.7 - 35.5 g/dL [facility] Comment:Testing performed by : [facility], [address] [place] [phone] RDW CV 15.1(H) 11.8 - 14.6 % [facility] Comment:Testing performed by : [facility], [address] [place] [phone] NRBC abs 0.01 0.00 - 0.01 K/cumm [facility] Comment:Testing performed by : [facility], [address] [place] [phone] Blood 02/15/2022 9:29 AM AITCHBONE BREAKER 02/15/2022 9:30 AM AITCHBONE BREAKER Magali Stapleton PILLOWCASE TURNER LAB BLOOD ORDERABLES Final Res ult [facility] Department [place] [address] * (ABNORMAL) Comprehensive metabolic panel (02/15/2022 9:29 AM AITCHBONE BREAKER) Sodium 137 135 - 145 mmol/L [facility] Comment:Testing performed by : [facility], [address] [place] [phone] Potassium, pl 4.8 3.3 - 4.9 mmol/L [facility] Comment:Testing performed by : [facility], [address] [place] [phone] Chloride 100 97 - 110 mmol/L [facility] Comment:Testing performed by : [facility], [address] [place] [phone] CO2 30 22 - 32 mmol/L [facility] Comment:Testing performed by : [facility], [address] [place] [phone] Anion gap 7 2 - 15 mmol/L [facility] Comment:Testing performed by : [facility], [address] [place] [phone] BUN 16 8 - 25 mg/dL C[facility]ER [facility]J Comment:Testing performed by : [facility], [address] [place] [phone] Creatinine 0.86 0.80 - 1.30 mg/dL C[facility]ER BJ Comment:Testing performed by : [facility], [address] [place] [phone] Glucose 101 70 - 199 mg/dL CERNER BJ Comment: [...] was last revised 2017. Testing performed by: [facility], [address] [place] [phone] Calcium 9.9 8.5 - 10.3 mg/dL C[facility]ER [facility]J Comment:Testing performed by : [facility], [address] [place] [phone] Bilirubin, total 0.7 0.1 - 1.2 mg/dL C[facility]J Comment:Testing performed by : [address] [phone] Protein, pl 6.4(L) 6.5 - 8.5 g/dL CERNER BJ Comment:Testing performed by : [address] [phone] Albumin 4.5 3.5 - 5.0 g/dL CERNER BJ Comment:Testing performed by : [address] [phone] Alk phos 84 40 - 130 Units/L C[facility]ER BJ Comment:Testing performed by : [facility], [address] [place] [phone] ALT 24 7 - 55 Units/L [facility] Comment:Testing performed by : [facility], [address] [place] [phone] AST 19 10 - 50 Units/L [facility] Comment:Testing performed by : [facility], [address] [place] [phone] Blood 02/15/2022 9:29 AM AITCHBONE BREAKER 02/15/2022 9:30 AM AITCHBONE BREAKER us Magali S. [place] PILLOWCASE TURNER LAB BLOOD ORDERABLES Final Res ult Performing Organization Address City/[facility] Co de Phone Number [facility] Laboratories [place], [place] [id number] * Lactate dehydrogenase (LD) (02/15/2022 9:29 AM AITCHBONE BREAKER) Lactate dehydrogenase (LDH) 189 100 - 250 Units/L [facility] Comment:Testing performed by : [facility], [address] [place] [phone] Blood 02/15/2022 9:29 AM AITCHBONE BREAKER 02/15/2022 9:30 AM AITCHBONE BREAKER us Magali SJulisa [place] PILLOWCASE TURNER LAB BLOOD ORDERABLES Final Res ult Performing Organization Address [facility] Co de Phone Number [facility] [place] [address] * (ABNORMAL) IgG (02/15/2022 9:29 AM AITCHBONE BREAKER) Immunoglobulin G 361.0(L) 700.0 - 1,600.0 mg/dL [facility] Blood 02/15/2022 9:29 AM AITCHBONE BREAKER 02/15/2022 10:00 AM AITCHBONE BREAKER us Magali S. [place] PILLOWCASE TURNER LAB BLOOD ORDERABLES Final Res ult Performing Organization Address City/[facility]/ZIP Co [place] [address] documented in this encounter Visit Diagnoses Diagnosis CLL (chronic lymphocytic leukemia) (HCC) Chronic lymphoid leukemia, without mention of having achieved remission documented in this encounter Additional Health Concerns Infection Onset Date Last Indicated Resolved Time C. difficile Comment:Backloaded December 21, 2010 09/21/2010 09/21/2010 documented as of this encounter Care Teams Educational Technology Coordinator Relationship Specialty Start Date End Date Lenin Ventura MD [address] [address] PCP - General 07/06/16 Lenin Ventura MD [address] [address] 07/06/16 Burt Dos Santos MD PhD [address] [address] Medical Oncologist/Main Line Assembler Medical Oncology 06/16/19 documented as of this encounter
--- OUTSIDE RECORDS SUMMARY | 2024-02-22 08:30 | XMS_ITS | Encounter Summary ---
Author Organization [facility] Address [address] [place] [address] Phone Care Team Providers Care Collector Of Port Name Role Phone Lenin Ventura MD Primary Care Provider [phone] Lenin Ventura MD Unavailable [phone] Burt Dos Santos MD PhD Unavailable [phone] Encounter Details Date Type Department Care Team (Late st Contact Info) Description 09/01/2021 Orders Only [facility] Bone Marrow Transplant [address] [facility] Advanced Medicine 7th Floor, [place] [address] [place] Lakes[place], REDIPPER [address] DIV IM BONE MARROW TRANSPLANT, [address] [place], [place] [id number] CLL (chronic lymphocytic leukemia) ([facility]/HCC) ([facility]) Social History Tobacco Use Types Packs/Day Years Used Date Smoking Tobacco: Former Smokeless Tobacco: Never Alcohol Use Standard Drinks/Week Comments Not Currently 0 (1 standard drink = 0.6 oz pur e alcohol) Sex and Gender Information Value Date Recorded Sex Assigned at Not on file Legal Sex Male 9:45 AM RIPPLER Gender Identity Not on file Sexual Orientation Not on file documented as of this encounter Ordered Prescriptions Prescription Sig Dispense Quantity Refills Last Filled Start Date End Date acyclovir (ZOVIRAX) 200 mg capsuleIndications :Prophylaxis, Medical Take 2 capsules (400 mg total) by mouth 2 (two) times a day 360 capsule 3 09/01/2021 3 documented in this encounter Plan of Treatment Not on file documented as of this encounter Visit Diagnoses Diagnosis CLL (chronic lymphocytic leukemia) (HCC) Chronic lymphoid leukemia, without mention of having achieved remission documented in this encounter Discontinued Medications Medication Sig Discontinue Reason Start Date End Da te acyclovir (ZOVIRAX) 200 mg capsuleIndications:Prop hylaxis, Medical Take 2 capsules (400 mg total) by mouth 2 (two) times a day Reorder 09/01/2021 09/01/2021 documented as of this encounter Additional Health Concerns Infection Onset Date Last Indicated Resolved Time C. difficile Comment:Backloaded December 21, 2010 09/21/2010 09/21/2010 documented as of this encounter Care Teams Collector Of Port Relationship Specialty Start Date End Date Lenin Ventura MD [address] [address] PCP - General 07/06/16 Lenin Ventura MD [facility] [address] [address] 07/06/16 Burt Dos Santos MD PhD [facility] [address] [address] Medical Oncologist/Street Inspector Medical Oncology 06/16/19 documented as of this encounter
--- OUTSIDE RECORDS SUMMARY | 2024-02-22 08:30 | XMS_ITS | Encounter Summary ---
Author Organization [facility] Address [address] [place] [address] Phone Care Team Providers Care Manager Furniture Name Role Phone Lenin Ventura MD Primary Care Provider [phone] Lenin Ventura MD Unavailable [phone] Burt Dos Santos MD PhD Unavailable [phone] Reason for Visit * Oncology (Routine) - Authorized Specialty Diagnoses / Procedures Referred By Contac t Referred To Contact Oncology Diagnoses CLL (chronic lymphocytic leukemia) (HCC) Procedures ONCBCN ARM DRAW APPT ONC LAB ONLY Burt Dos Santos MD PhD Phone: tel: fax: Burt Dos Santos MD PhD Phone: tel: fax: Referral ID Status Reason Start Date Expiration Date Visits Requested Visits Authorized [id number] Authorized Specialty Services Required 07/03/2019 03/12/2024 99 99 Encounter Details Date Type Department Care Team (Late st Contact Info) Description 10/20/2021 7:45 AM CDT Lab [facility] Oncology [facility], [address] [facility] 7th [place] [address] [place] [address] CLL (chronic lymphocytic leukemia) (CMS/HCC) (HCC); Hypogammaglobulinemia (CMS/HCC) (HCC) Social History Tobacco Use Types Packs/Day Years Used Date Smoking Tobacco: Former Smokeless Tobacco: Never Alcohol Use Standard Drinks/Week Comments Not Currently 0 (1 standard drink = 0.6 oz pur e alcohol) Sex and Gender Information Value Date Recorded Sex Assigned at Not on file Legal Sex Male 9:45 AM CORROSION TECHNICIAN Gender Identity Not on file Sexual [...] rst Ordered Date ONCBCN LAB APPOINTMENT 1 10/20/2021 documented in this encounter Additional Health Concerns Infection Onset Date Last Indicated Resolved Time C. difficile Comment:Backloaded December 21, 2010 09/21/2010 09/21/2010 documented as of this encounter Care Teams Manager Furniture Relationship Specialty Start Date End Date Lenin Ventura MD [address] [address] PCP - General 07/06/16 Lenin Ventura MD [address] [address] 07/06/16 Burt Dos Santos MD PhD [address] [address] Medical Oncologist/Steam Room Attendant Medical Oncology 06/16/19 documented as of this encounter
--- OUTSIDE RECORDS SUMMARY | 2024-02-22 08:30 | XMS_ITS | Encounter Summary ---
Author Organization [facility] Address [address] [place] [address] Phone Care Team Providers Care Vocational Teacher Name Role Phone Lenin Ventura MD Primary Care Provider [phone] Lenin Ventura MD Unavailable [phone] Burt Dos Santos MD PhD Unavailable [phone] Reason for Visit * Episode Based Medications (Routine) - Authorized Specialty Diagnoses / Procedures Referred By Contguillermo t Referred To Contact Diagnoses Hypogammaglobulinemia (HCC) Procedures DE GAMUNEX-C/GAMMAKED GAMUNEX Burt Dos Santos MD PhD [address] DIV IM BONE MARROW TRANSPLANT, [address] [place] [address] Phone: tel: fax: [facility] [address] [facility] 7th [place] [address] Phone: tel: Referral ID Status Reason Start Date Expiration Date V isits Requested Visits Authorized [id number] Authorized 10/19/2019 08/02/2024 1 38 Encounter Details Date Type Department Care Team (Late st Contact Info) Description 08/25/2021 8:30 AM CDT Infusion [facility] Oncology [address] [place] [address] [place] [address] CLL (chronic lymphocytic leukemia) (CMS/HCC) (HCC) (Primary Dx); Hypogammaglobulinemia (CMS/HCC) (HCC) Social History Tobacco Use Types Packs/Day Years Used Date Smoking Tobacco: Former Smokeless Tobacco: Never Alcohol Use Standard Drinks/Week Comments Not Currently 0 (1 standard drink = 0.6 oz pur e alcohol) Sex and Gender Information Value Date Recorded Sex Assigned at Not on file Legal Sex Male 9:45 AM WOOD CRAFTSMAN Gender Identity Not on file Sexual Orientation Not on file documented as of this encounter Last Filed Vital Signs Vital Sign Reading Time Taken Comments Blood Pressure 130/72 08/25/2021 12:07 PM CDT Pulse 76 08/25/2021 12:07 PM CDT Temperature 36.7 ??C (98.1 ??F) 08/25/2021 1 2:07 PM CDT Respiratory Rate 16 08/25/2021 12:0 7 PM CDT Oxygen Saturation 98% 08/25/2021 12: 07 PM CDT Inhaled Oxygen Concentration - - Weight 128.9 kg (284 lb 3.2 oz) 08/25/2021 8:20 AM CDT Height - - Body Mass Index 36.49 09/08/2020 10:31 AM CDT documented in this encounter Nursing Notes * Lucy Bautista - 08/25/2021 8:30 AM CDT Oncology Nursing Note [facility] Jeff Abdullahi is a 71 y.o. male who presents for IVIG Pre-treatment Nursing Assessment Nursing Assessment Appetite: Good Diarrhea: No Constipation: No Last BM Date: 08/25/21 Existing Patients: Any falls since your last visit?: No Fatigue: Constant Mouth Sores: No Nausea/Vomiting: No (sometimes, has antiemetics) Neurological symptoms: No Pain: No Peripheral Neuropathy: Yes (fingers and toes, unchanged) Pt states has potential to be ?: N/A Shortness of Breath?: No (RAUSCH, ongoing) Skin Condition/Temp: Warm, Dry Oral Mucosa Grade: Normal (0) Abdomen: Soft Swelling: No BP: 130/72 Temp: 36.7 ??C (98.1 ??F) Temp src: Temporal Pulse: 76 Resp: 16 SpO2: 98 % Weight: 128.9 kg (284 lb 3.2 oz) Treatment Patient: does not require labs today. Pre blood return: Brisk Jeff Abdullahi tolerated treatment well. 30 minute titrations tolerated well. No s/s of reaction. Vitals stable throughout. Patient was frequently observed and monitored throughout the administration of their treatment. Post blood return: Brisk IV access post infusion: NS Patient Education Treatment Education: Information/teaching given to patient including adverse reaction, symptom management and process and procedure related to today's [...] 650 mg 650 mg, oral, Once, On Sat08/25/21 at 0915, For 1 dose, Please give 30 minutes prior to IVIG.Indications:Hypogamm aglobulinemia (HCC) Given 08/25/2021 8:52 AM CDT 650 mg diphenhydrAMINE (BENADRYL) tab/cap 25 mg 25 mg, oral, Once, On Sat08/25/21 at 0915, For 1 dose, Give 30 minutes prior to IVIG.Indications:Hypogamm aglobulinemia (HCC) Given 08/25/2021 8:52 AM CDT 25 mg immune globulin (GAMUNEX-C,GAMMAKED) 10 % infusion 35 g 35 g (rounded from 32.88 g = 400 mg/kg ? 82.2 kg Stephenson weight), intravenous, Once, On Sat08/25/21 at 0915, For 1 dose, GamuNEX C INITIAL Infusion, 30 Minute Titration Patient Weight: 82.2 kg Initiate Infusion at 0.6 mL/kg/hr. If no reaction, may increase rate by 0.6 mL/kg/hr every 30 minutes, to a max of 4.8 mL/kg/hr 1 . 0.6 mL/kg/hr = Infuse 25 mL over 30 minutes (Rate = 49 mL/hr) 2 . 1.2 mL/kg/hr = Infuse 49 mL over 30 minutes (Rate = 99 mL/hr) 3 . 1.8 mL/kg/hr = Infuse 74 mL over 30 minutes (Rate = 148 mL/hr) 4 . 2.4 mL/kg/hr = Infuse 99 mL over 30 minutes (Rate = 197 mL/hr) 5 . 3.0 mL/kg/hr = Infuse 123 mL over 30 minutes (Rate = 247 mL/hr) 6 . 3.6 mL/kg/hr = Infuse 148 mL over 30 minutes (Rate = 296 mL/hr) 7 . 4.2 mL/kg/hr = Infuse 173 mL over 30 minutes (Rate = 345 mL/hr) 8 . 4.8 mL/kg/hr for remainder (Rate = 395 mL/hr) Administer over: 1 mg/kg/min x 30 minutes, then 2 mg/kg/min x 30 minutes, then 4 mg/kg/min x 30 minutes, then 6 mg/kg/min x 30 minutes, then 8 mg/kg/min until infusion complete., If initial titration was well tolerated, subsequent infusions may be titrated every 15 minutes.Indications:Hypog ammaglobulinemia (HCC) Rate/Dose Change 08/25/2021 11:40 AM CDT 246 mL/hr Rate/Dose Change 08/25/2021 11:04 AM CDT 197 mL /hr Rate/Dose Change 08/25/2021 10:32 AM CDT 148 mL /hr documented in this encounter Orders Nursing Count Last Ordered Date First Orde red Date ONCBCN NURSING COMMUNICATION [id number] 0 08/25/2021 VITAL SIGNS INTRA-INFUSION 1 08/25/2021 Appointment Requests Count Last Ordered Date Fi rst Ordered Date INFUSION APPT REQUEST 300 MIN 1 08/25/2021 documented in this encounter Additional Health Concerns Infection Onset Date Last Indicated Resolved Time C. difficile Comment:Backloaded December 21, 2010 09/21/2010 09/21/2010 documented as of this encounter Care Teams Vocational Teacher Relationship Specialty Start Date End Date Lenin Ventura MD [address] [address] PCP - General 07/06/16 Lenin Ventura MD [address] [address] 07/06/16 Burt Dos Santos MD PhD [address] [address] Medical Oncologist/County Court Judge Medical Oncology 06/16/19 documented as of this encounter
--- OUTSIDE RECORDS SUMMARY | 2024-02-22 08:30 | XMS_ITS | Encounter Summary ---
Author Organization [facility] Healthcare Address [address] [place] [address] Care Team Providers Care Satellite Tv Technician Installer Name Role Phone Lenin Ventura MD Primary Care Provider [phone] Lenin Ventura MD Unavailable [phone] Burt Dos Santos MD PhD Unavailable [phone]- [phone] Encounter Details Date Type Department Care Team (Latest Contact Info) Description 07/13/2021 10:07 AM CDT - 07/13/2021 11:59 PM CDT Hospital Encounter [facility] Advanced Medicine 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 Gender Identity Not on file Sexual Orientation [...] by mouth 2 (two) times a day 180 capsule 3 02/06/2021 2 amoxicillin-clavu lanate (AUGMENTIN) 875-125 mg per tablet TK 1 T PO BID 12/03/2019 2 doxycycline 100 mg tabletIndications :CLL (chronic lymphocytic leukemia) (HCC) Take 100 mg by mouth 2 (two) times a day 04/11/[address] (CYMBALTA) 30 mg capsuleIndication s:CLL (chronic lymphocytic leukemia) (HCC) Take 30 mg by mouth daily 07/18/2020 2 Imbruvica 420 mg tabletIndications :CLL (chronic lymphocytic leukemia) (HCC) TAKE 1 TABLET BY MOUTH ONCE DAILY WITH A FULL GLASS OF WATER 28 tablet 3 06/02/2021 2 levoFLOXacin (LEVAQUIN) 500 mg tabletIndications :CLL (chronic lymphocytic leukemia) (HCC) Take 500 mg by mouth daily 08/15/2020 2 documented as of this encounter Discharge Disposition Disposition Code Departure Means Destination Discharge to home or self care documented in this encounter Plan of Treatment Not on file documented as of this encounter Procedures Procedure Name Priority Date/Time Associated Diagnosis Comments EGFR Routine 07/13/2021 9:35 AM CDT CLL (chronic lymphocytic leukemia) (CMS/HCC) (HCC) DIFFERENTIAL AUTO Routine 07/13/2021 9:3 5 AM CDT CLL (chronic lymphocytic leukemia) (CMS/HCC) (HCC) CBC WITH AUTO DIFFERENTIAL Routine 07/13/2021 9:35 AM CDT CLL (chronic lymphocytic leukemia) (CMS/HCC) (HCC) LACTATE DEHYDROGENASE Routine 07/13/2021 9:35 AM CDT CLL (chronic lymphocytic leukemia) (CMS/HCC) (HCC) IGG Routine 07/13/2021 9:35 AM CDT CLL (chronic lymphocytic leukemia) (CMS/HCC) (HCC) COMPREHENSIVE METABOLIC PANEL Routine 07/13/2021 9:35 AM CDT CLL (chronic lymphocytic leukemia) (CMS/HCC) (HCC) documented in this encounter Results * eGFR (07/13/2021 9:35 AM CDT) eGFR >90 90 - 130 [...] was last reviewed 2021. Testing performed by: [facility], [address] [place] [phone] Blood 07/13/2021 9:35 AM CDT 07/13/2021 9:40 AM CDT Burt Dos Santos MD PhD LAB BLOOD ORDERABLES Final Result VANESSA CASTRO [facility] [place] [address] * (ABNORMAL) Differential, auto (07/13/2021 9:35 AM CDT) Neutrophil abs 5.5 1.8 - 6.6 K/cumm [facility] Comment:Testing performed by : [facility], [address] [place] [phone] Lymphocyte abs 5.5(H) 1.2 - 3.3 K/cumm CERGEOFF BJ Comment:Testing performed by : [facility], [address] [place] [phone] Monocyte abs 1.0 0.2 - 1.2 K/cumm VANESSA BJ Comment:Testing performed by : [facility], [address] [place] [phone] Eosinophil abs 0.1 0.0 - 0.5 K/cumm VANESSA BJ Comment:Testing performed by : [facility], [address] [place] [phone] Basophil abs 0.1 0.0 - 0.2 K/cumm [facility]J Comment:Testing performed by : [facility], [address] [place] [phone] Neutrophil pct 45.1 % VANESSA CASTRO Comment: Interpretive Data Percent cell count reference ranges are not reported, since discordance with absolute values may lead to misinterpretation of CBC data. Current Interpretive Data was last revised on 2017. Testing performed by: [facility], [address] [place] [phone] Lymphocyte pct 45.3 % VANESSA CASTRO Comment: Interpretive Data Percent cell count reference ranges are not reported, since discordance with absolute values may lead to misinterpretation of CBC data. Current Interpretive Data was last revised on 2017. Testing performed by: [facility], [address] [place] [phone] Monocyte pct 8.6 % VANESSA CASTRO Comment:Testing performed by : [facility], [address] [place] [phone] Eosinophil pct 0.5 % VANESSA CASTRO Comment:Testing performed by : [facility], [address] [place] [phone] Basophil pct 0.5 % VANESSA CASTRO Comment:Testing performed by : [facility], [address] [place] [phone] Blood 07/13/2021 9:35 AM CDT 07/13/2021 9:40 AM CDT Burt Dos Santos MD PhD LAB BLOOD ORDERABLES Final Result VANESSA CASTRO [facility] [place] [address] * (ABNORMAL) CBC with auto differential (07/13/2021 9:35 AM CDT) WBC 12.1(H) 3.8 - 9.8 K/cumm VANESSA CASTRO Comment:Testing performed by : [facility], [address] [place] [phone] Hgb 14.5 13.8 - 17.2 g/dL VANESSA BELLA Comment:Testing performed by : [facility], [address] [place] [phone] Hct 42.5 40.7 - 50.3 % VANESSA BELLA Comment:Testing performed by : [facility], [address] [place] [phone] Plt 139(L) 140 - 440 K/cumm [facility] Comment:Testing performed by : [facility], [address] [place], [place] [phone] MPV 12.1(H) 6.8 - 10.4 fL [facility] Comment:Testing performed by : [facility], [address] [place], [place] [phone] RBC 4.53 4.50 - 5.70 M/cumm VANESAS CASTRO Comment:Testing performed by : [facility], [address] [place] [address] MCV 93.8 80.0 - 97.6 fL [facility]ESSA [facility] Comment:Testing performed by : [facility], [address] [place] [address] MCH 31.9 26.7 - 33.7 pg [facility]ESSA [facility] Comment:Testing performed by : [place] [address] MCHC 34.0 32.7 - 35.5 g/dL [facility]ESSA [facility] Comment:Testing performed by : [facility], [address] [place], [place] [id number] RDW CV 15.0(H) 11.8 - 14.6 % V[facility]ESSA [facility] Comment:Testing performed by : [facility], [address] [place], [place] [id number] NRBC abs 0.01 0.00 - 0.01 K/cumm [facility]SA [facility] Comment:Testing performed by : [facility], [address] [place], [place] [phone] Blood 07/13/2021 9:35 AM CDT 07/13/2021 9:40 AM CDT us Burt Dos Santos MD PhD LAB BLOOD ORDERABLES Final Result VANESSA CASTRO [facility] [place] [address] * (ABNORMAL) Comprehensive metabolic panel (07/13/2021 9:35 AM CDT) Sodium 139 135 - 145 mmol/L CERNER BJ Comment:Testing performed by : [facility], [address] [place] [phone] Potassium, pl 4.6 3.3 - 4.9 mmol/L [facility]ER BJ Comment:Testing performed by : [facility], [address] [place] [phone] Chloride 104 97 - 110 mmol/L [facility]ER BJ Comment:Testing performed by : [facility], [address] [place] [phone] CO2 27 22 - 32 mmol/L [facility] BJ Comment:Testing performed by : [facility], [address] [place] [phone] Anion gap 8 2 - 15 mmol/L [facility]ER BJ Comment:Testing performed by : [facility], [address] [place] [phone] BUN 14 8 - 25 mg/dL [facility]ER BJ Comment:Testing performed by : [facility], [address] [place] [phone] Creatinine 0.72(L) 0.80 - 1.30 mg/dL [facility]ER BJ Comment:Testing performed by : [facility], [address] [place] [phone] Glucose 107 70 - 199 mg/dL CERNER BJ Comment: [...] was last revised 2017. Testing performed by: [facility], [address] [place] [phone] Calcium 9.3 8.5 - 10.3 mg/dL CERNER BJ Comment:Testing performed by : [address] [phone] Bilirubin, total 0.6 0.1 - 1.2 mg/dL [facility] Comment:Testing performed by : [facility], [address] [place] [phone] Protein, pl 6.0(L) 6.5 - 8.5 g/dL [facility] Comment:Testing performed by : [facility], [address] [place] [phone] Albumin 4.5 3.5 - 5.0 g/dL [facility] Comment:Testing performed by : [facility], [address] [place] [phone] Alk phos 93 40 - 130 Units/L [facility] Comment:Testing performed by : [facility], [address] [place] [phone] ALT 17 7 - 55 Units/L [facility] Comment:Testing performed by : [facility], [address] [place] [phone] AST 16 10 - 50 Units/L [facility]ESSA [facility] Comment:Testing performed by : [facility], [address] [place] [phone] Blood 07/13/2021 9:35 AM CDT 07/13/2021 9:40 AM CDT Burt Dos Santos MD PhD LAB BLOOD ORDERABLES Final Result Performing Organization Address City/[facility]/ZIP Co de Phone Number [facility] Department [place] [address] * Lactate dehydrogenase (LD) (07/13/2021 9:35 AM CDT) Lactate dehydrogenase (LDH) 173 100 - 250 Units/L VANESSA [facility] Comment:Testing performed by : [facility], [address] [place] [phone] Blood 07/13/2021 9:35 AM CDT 07/13/2021 9:40 AM CDT Burt Dos Santos MD PhD LAB BLOOD ORDERABLES Final Result Performing Organization Address City/[facility]/ZIP Co de Phone Number VANESSA CASTRO [facility] [place] [address] * (ABNORMAL) IgG (07/13/2021 9:35 AM CDT) Immunoglobulin G <300.0(L) 700.0 - 1,600.0 mg/dL [facility] Blood 07/13/2021 9:35 AM CDT 07/13/2021 10:17 AM CDT Burt Dos Santos MD PhD LAB BLOOD ORDERABLES Final Result VANESSA [facility] [place] [address] documented in this encounter Visit Diagnoses Diagnosis CLL (chronic lymphocytic leukemia) (HCC) Chronic lymphoid leukemia, without mention of having achieved remission documented in this encounter Additional Health Concerns Infection Onset Date Last Indicated Resolved Time C. difficile Comment:Backloaded December 21, 2010 09/21/2010 09/21/2010 documented as of this encounter Care Teams Satellite Tv Technician Installer Relationship Specialty Start Date End Date Lenin Ventura MD [address] [address] PCP - General 07/06/16 Lenin Ventura MD [address] [address] 07/06/16 Burt Dos Santos MD PhD [address] [id number] Medical Oncologist/Folder Machine Operator Medical Oncology 06/16/19 documented as of this encounter
--- OUTSIDE RECORDS SUMMARY | 2024-02-22 08:30 | XMS_ITS | Encounter Summary ---
Author Organization [facility] Address [address] [place] [address] Phone Care Team Providers Care Middle School Tutor Name Role Phone Lenin Ventura MD Primary Care Provider [phone] Lenin Ventura MD Unavailable [phone] Burt Dos Santos MD PhD Unavailable [phone]- [phone] Encounter Details Date Type Department Care Team (Late st Contact Info) Description 09/05/2021 Documentation [facility] [address] [facility] Advanced Medicine 7th Floor, [place] [address] Yolanda Goel RMA Social History Tobacco Use Types Packs/Day Years Used Date Smoking Tobacco: Former Smokeless Tobacco: Never Alcohol Use Standard Drinks/Week Comments Not Currently 0 (1 standard drink = 0.6 oz pur e alcohol) Sex and Gender Information Value Date Recorded Sex Assigned at Not on file 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 documented in this encounter Plan of Treatment Not on file documented as of this encounter Visit Diagnoses Not on filedocumented in this encounter Additional Health Concerns Infection Onset Date Last Indicated Resolved Time C. difficile Comment:Backloaded December 21, 2010 09/21/2010 09/21/2010 documented as of this encounter Care Teams Middle School Tutor Relationship Specialty Start Date End Date Lenin Ventura MD [address] [address] [address] PCP - General 07/06/16 Lenin Ventura MD [address] [address] 07/06/16 Burt Dos Santos MD PhD [address] [id number] Medical Oncologist/Company Truck Driver Medical Oncology 06/16/19 documented as of this encounter
--- OUTSIDE RECORDS SUMMARY | 2024-02-22 08:30 | XMS_ITS | Encounter Summary ---
Author Organization [facility] Address [address] [place] [address] Phone Care Team Providers Care Headstart Teacher Name Role Phone Lenin Ventura MD Primary Care Provider [phone] Lenin Ventura MD Unavailable [phone] Burt Dos Santos MD PhD Unavailable [phone] Encounter Details Date Type Department Care Team (Late st Contact Info) Description 09/06/2021 Telephone [facility] [address] [facility] Advanced 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 when they arrive at the infusion center which goes over this information that they have been given verbally today. The following has been discussed with the patient: The U.S. Food and Drug Administration (FDA) has issued an Emergency Use Authorization (EUA) to permit the emergency use of an unapproved intravenous monoclonal antibody therapy for the treatment of mild to moderate coronavirus disease 2019 (COVID19) or for post-exposure prophylaxis of COVID-19 in patients who are at high risk for progression to severe COVID-19, including hospitalization or .This therapy is given through a vein (intravenous or IV) over 30 minutes with an additional 1 hour observation period. There is limited information known about the safety or effectiveness of using these monoclonal antibodies to treat people with COVID-19. One of the possible side effects of this therapy is an allergic reaction. Allergic reactions can happen during and after the infusion. Symptoms can include chills, nausea, headache, shortness of breath, low blood pressure, wheezing, swelling of the lips, face, or throat, rash including hives, itching, muscle aches, and dizziness. The patient will be observed closely for this and treated as needed. Serious and unexpected side effects may happen. This therapy is still being studied so it is possible that all of the risks are not known at this time. It is possible that the treatment could interfere with the body's own ability to fight off a future infection of SARS-CoV-2. Similarly, it may reduce the body's immune response to a vaccine for SARS-CoV-2. Specific studies have not been conducted to address these possible risks. The CDC recommends deferring COVID vaccination for at least 90 days after this therapy as otherwiseit may interfere with vaccine efficacy. The side effects of getting any medicine by vein may include brief pain, bleeding, bruising of the skin, soreness, swelling, and possible infection at the infusion site. It is the patient's choice to be treated or not to be treated with this therapy. Should they decidenot to receive this infusion or stop it at any time, it will not change the standard medical care. An alternative to receiving this therapy is to receive current standard treatment, which is supportive care. The website nmecv72eloesplhfeythllfwgx.nih.gov has more information on the emergency use of other medicines that are not approved by FDA to treat people with COVID-19 and clinical trials the patient may be eligible for. The patient agrees, at this time, to proceed with scheduling the infusion treatment. * Telephone Encounter - Roberta Watkins RN - 09/06/2021 3:20 PM CDT Called patient. He feels run down and his whole family has it. Described we'd recommend MAB and what it is/ where it's given. He'd prefer this over the paxlovid. Will attempt to schedule at [facility]. [facility] patient back. * Telephone Encounter - Yuki Dent RN - 09/06/2021 1:42 PM CDT Pt calling as he tested COVID+ today, symptoms started on Saturday09/03/21 after being exposed the . Pt with mild to mod symptoms; cough, congestion, headache. Denies fevers or dyspnea. Pt pcp told pt to call Dr Dos Santos's office for possible MAB or Paxlovid. Pt also has question about if this effects his IVIG therapy. Pt can can be reached at [phone] documented in this encounter Plan of Treatment Not on file documented as of this encounter Visit Diagnoses Diagnosis COVID- Primary documented in this encounter Orders Appointment Requests Count Last Ordered Date Fi rst Ordered Date INFUSION APPT REQUEST 150 MIN 1 09/07/2021 documented in this encounter Additional Health Concerns Infection Onset Date Last Indicated Resolved Time C. difficile Comment:Backloaded December 21, 2010 09/21/2010 09/21/2010 documented as of this encounter Care Teams Headstart Teacher Relationship Specialty Start Date End Date Lenin Ventura MD [address] [id number] PCP - General 07/06/16 Lenin Ventura MD [email or web address] [id number] 07/06/16 Burt Dos Santos MD PhD [address] [address] Medical Oncologist/Agricultural Engineering Technician Medical Oncology 06/16/19 documented as of this encounter
--- OUTSIDE RECORDS SUMMARY | 2024-02-22 08:30 | XMS_ITS | Encounter Summary ---
Author Organization [facility] Address [address] [place] [address] Phone Care Team Providers Care Gasoline Dragline Operator Name Role Phone Lenin Ventura MD Primary Care Provider [phone] Lenin Ventura MD Unavailable [phone] Burt Dos Santos MD PhD Unavailable [phone] Reason for Visit * Oncology (Routine) - Authorized Specialty Diagnoses / Procedures Referred By Contac t Referred To Contact Oncology Diagnoses CLL (chronic lymphocytic leukemia) (HCC) Procedures ONCBCN ARM DRAW APPT ONC LAB ONLY Burt Dos Santos MD PhD Phone: tel: fax: Burt Dos Santos MD PhD Phone: tel: fax: Referral ID Status Reason Start Date Expiration Date Visits Requested Visits Authorized [id number] Authorized Specialty Services Required 07/03/2019 03/12/2024 99 99 Encounter Details Date Type Department Care Team (Late st Contact Info) Description 08/25/2021 7:15 AM CDT Lab [facility] Oncology [facility] 7th [place] [address] [place] [address] CLL (chronic lymphocytic leukemia) (CMS/HCC) (HCC); Hypogammaglobulinemia (CMS/HCC) (HCC) Social History Tobacco Use Types Packs/Day Years Used Date Smoking Tobacco: Former Smokeless Tobacco: Never Alcohol Use Standard Drinks/Week Comments Not Currently 0 (1 standard drink = 0.6 oz pur e alcohol) Sex and Gender Information Value Date Recorded Sex Assigned at Not on file 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 difficile Comment:Backloaded December 21, 2010 09/21/2010 09/21/2010 documented as of this encounter Care Teams Gasoline Dragline Operator Relationship Specialty Start Date End Date Lenin Ventura MD [address] [address] PCP - General 07/06/16 Lenin Ventura MD [address] [address] 07/06/16 Burt Dos Santos MD PhD [address] [address] Medical Oncologist/Cae Engineer Medical Oncology 06/16/19 documented as of this encounter
--- OUTSIDE RECORDS SUMMARY | 2024-02-22 08:30 | XMS_ITS | Encounter Summary ---
Author Organization [facility] Address [address] [place] [address] Phone Care Team Providers Care Training Engineer Name Role Phone Lenin Ventura MD Primary Care Provider [phone] Lenin Ventura MD Unavailable [phone] Burt Dos Santos MD PhD Unavailable [phone] Reason for Visit * Episode Based Medications (Routine) - Authorized Specialty Diagnoses / Procedures Referred By Contguillermo t Referred To Contact Diagnoses Hypogammaglobulinemia (HCC) Procedures [place] GAMUNEX-C/GAMMAKED GAMUNEX Burt Dos Santos MD PhD [address] DIV IM BONE MARROW TRANSPLANT, [address] [place] [address] Phone: tel: fax: [facility] and [place] [address] [facility] 7th [place] [address] Phone: tel: Referral ID Status Reason Start Date Expiration Date V isits Requested Visits Authorized [id number] Authorized 10/19/2019 08/02/2024 1 38 Encounter Details Date Type Department Care Team (Late st Contact Info) Description 09/22/2021 9:30 AM CDT Infusion [facility] Oncology [address] [place] [address] [place] [address] CLL (chronic lymphocytic leukemia) (CMS/HCC) (HCC) (Primary Dx); Hypogammaglobulinemia (CMS/HCC) (HCC) Social History Tobacco Use Types Packs/Day Years Used Date Smoking Tobacco: Former Smokeless Tobacco: Never Alcohol Use Standard Drinks/Week Comments Not Currently 0 (1 standard drink = 0.6 oz pur e alcohol) Sex and Gender Information Value Date Recorded Sex Assigned at Not on file 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 Gender Identity Not on file Sexual Orientation Not on file documented as of this encounter Last Filed Vital Signs Vital Sign Reading Time Taken Comments Blood Pressure 117/71 09/22/2021 12:30 PM CDT Pulse 70 09/22/2021 12:30 PM CDT Temperature 36.7 ??C (98.1 ??F) 09/22/2021 1 2:30 PM CDT Respiratory Rate 18 09/22/2021 12:3 0 PM CDT Oxygen Saturation 97% 09/22/2021 12: 30 PM CDT Inhaled Oxygen Concentration - - Weight 128.6 kg (283 lb 9.6 oz) 09/22/2021 9:28 AM CDT Height 187.5 cm (6' 1.82 ) 09/22/2021 9:55 AM CD T Body Mass Index 36.59 09/22/2021 9:28 AM CDT documented in this encounter Nursing Notes * Lucy Bautista - 09/22/2021 9:30 AM CDT Oncology Nursing Note [facility] Jeff Abdullahi is a 71 y.o. male who presents for IVIG Pre-treatment Nursing Assessment Nursing Assessment Appetite: Fair Diarrhea: No Constipation: No Last BM Date: 09/22/21 Existing Patients: Any falls since your last visit?: No Fatigue: Constant Mouth Sores: No Nausea/Vomiting: No Neurological symptoms: No Pain: No Peripheral Neuropathy: Yes (unchanged) Pt states has potential to be ?: N/A Shortness of Breath?: No (on exertion) Skin Condition/Temp: Warm, Dry Oral Mucosa Grade: Normal (0) Abdomen: Soft Swelling: No BP: 117/71 Temp: 36.7 ??C (98.1 ??F) Temp src: Oral Pulse: 70 Resp: 18 SpO2: 97 % Height: 187.5 cm (6' 1.82 ) Weight: 128.6 kg (283 lb 9.6 oz) Treatment Patient: does not require labs today Pre blood return: Whitney Abdullahi tolerated treatment well. Vitals stable. No s/s of reaction Patient was frequently observed and monitored throughout the administration of their treatment. Post blood return: Brisk IV access post infusion: NS Patient Education Treatment Education: Information/teaching given to patient including adverse reaction, symptom management, process and procedure related to today's visit and when to notify MD Response: Verbalizes [...] 650 mg 650 mg, oral, Once, On Sat09/22/21 at 1015, For 1 dose, Please give 30 minutes prior to IVIG.Indications:Hypogamm aglobulinemia (HCC) Given 09/22/2021 9:53 AM CDT 650 mg diphenhydrAMINE (BENADRYL) tab/cap 25 mg 25 mg, oral, Once, On Sat09/22/21 at 1015, For 1 dose, Give 30 minutes prior to IVIG.Indications:Hypogamm aglobulinemia (HCC) Given 09/22/2021 9:53 AM CDT 25 mg immune globulin (GAMUNEX-C,GAMMAKED) 10 % infusion 35 g 35 g (rounded from 32.72 g = 400 mg/kg ? 81.8 kg [place] weight), intravenous, Once, On Sat09/22/21 at 1015, For 1 dose, GamuNEX C SUBSEQUENT Infusion, [...] every 15 minutes.Indications:Hypog ammaglobulinemia (HCC) Rate/Dose Change 09/22/2021 12:12 PM CDT 344 mL/hr Rate/Dose Change 09/22/2021 11:54 AM CDT 294 mL /hr Rate/Dose Change 09/22/2021 11:39 AM CDT 245 mL /hr documented in this encounter Orders Nursing Count Last Ordered Date First Orde red Date ONCBCN NURSING COMMUNICATION [id number] 2 0 09/22/2021 VITAL SIGNS INTRA-INFUSION 1 09/22/2021 Appointment Requests Count Last Ordered Date Fi rst Ordered Date INFUSION APPT REQUEST 300 MIN 1 09/22/2021 documented in this encounter Additional Health Concerns Infection Onset Date Last Indicated Resolved Time C. difficile Comment:Backloaded December 21, 2010 09/21/2010 09/21/2010 documented as of this encounter Care Teams Training Engineer Relationship Specialty Start Date End Date Lenin Ventura MD [id number] [address] PCP - General 07/06/16 Lenin Ventura MD [id number] [address] 07/06/16 Burt Dos Santos MD PhD [id number] [address] Medical Oncologist/Senior Editor Medical Oncology 06/16/19 documented as of this encounter
--- OUTSIDE RECORDS SUMMARY | 2024-02-22 08:30 | XMS_ITS | Encounter Summary ---
Author Organization [facility] Address [address] [place] [address] Care Team Providers Care Pharmacy Graduate Intern Name Role Phone Lenin Ventura MD Primary Care Provider [phone] Lenin Ventura MD Unavailable [phone] Burt Dos Santos MD PhD Unavailable [phone] Encounter Details Date Type Department Care Team (Latest Contact Info) Description 08/25/2021 7:20 AM CDT - 08/25/2021 11:59 PM CDT Hospital Encounter [facility] Advanced [facility] ([facility]) [address] [place] [phone] CLL (chronic lymphocytic leukemia) ([facility]) ([facility]); Hypogammaglobulinem ia (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 Gender Identity Not on file Sexual Orientation [...] tabletIndications :CLL (chronic lymphocytic leukemia) ([facility]) 03/14/2020 traZODone (DESYREL) 50 mg tabletIndications :CLL [...] Priority Date/Time Associated Diagnosis Comments EGFR STAT 08/25/2021 7:51 AM CDT CLL (chronic lymphocytic leukemia) (CMS/HCC) (HCC) Hypogammaglobulinem ia (CMS/HCC) (HCC) DIFFERENTIAL AUTO STAT 08/25/2021 7:5 1 AM CDT CLL (chronic lymphocytic leukemia) (CMS/HCC) (HCC) Hypogammaglobulinem ia (CMS/HCC) (HCC) CBC WITH AUTO DIFFERENTIAL STAT 08/25/2021 7:51 AM CDT CLL (chronic lymphocytic leukemia) (CMS/HCC) (HCC) Hypogammaglobulinem ia (CMS/HCC) (HCC) COMPREHENSIVE METABOLIC PANEL STAT 08/25/2021 7:51 AM CDT CLL (chronic lymphocytic leukemia) (CMS/HCC) (HCC) Hypogammaglobulinem ia (CMS/HCC) (HCC) documented in this encounter Results * eGFR (08/25/2021 7:51 AM CDT) eGFR >90 90 - 130 mL/min/1. 73 m2 [facility] Comment: Interpretive Data Reference Interval [...] was last reviewed 2021. Testing performed by: [facility], [address] [place] [phone] Blood 08/25/2021 7:51 AM CDT 08/25/2021 7:53 AM CDT Burt Dos Santos MD PhD LAB BLOOD ORDERABLES Final Result [facility] Department [place] [address] * (ABNORMAL) Differential, auto (08/25/2021 7:51 AM CDT) Neutrophil abs 5.7 1.8 - 6.6 K/cumm CERNER BJ Comment:Testing performed by : [facility], [address] [place] [phone] Lymphocyte abs 7.2(H) 1.2 - 3.3 K/cumm CERNER BJ Comment:Testing performed by : [facility], [address] [place] [phone] Monocyte abs 1.0 0.2 - 1.2 K/cumm CERNER BJ Comment:Testing performed by : [facility], [address] [place] [phone] Eosinophil abs 0.1 0.0 - 0.5 K/cumm CERNER BJ Comment:Testing performed by : [facility], [address] [place] [phone] Basophil abs 0.1 0.0 - 0.2 K/cumm CERNER BJ Comment:Testing performed by : [facility], [address] [place] [phone] Neutrophil pct 40.4 % [facility] BJ Comment: Interpretive Data Percent cell count reference ranges are not reported, since discordance with absolute values may lead to misinterpretation of CBC data. Current Interpretive Data was last revised on 2017. Testing performed by: [facility], [address] [place] [phone] Lymphocyte pct 50.9 % [facility] Comment: Interpretive Data Percent cell count reference ranges are not reported, since discordance with absolute values may lead to misinterpretation of CBC data. Current Interpretive Data was last revised on 2017. Testing performed by: [facility], [address] [place] [phone] Monocyte pct 7.3 % [facility] Comment:Testing performed by : [facility], [address] [place] [phone] Eosinophil pct 0.8 % [facility] Comment:Testing performed by : [facility], [address] [place] [phone] Basophil pct 0.6 % [facility] Comment:Testing performed by : [facility], [address] [place] [phone] Blood 08/25/2021 7:5 1 AM CDT 08/25/2021 7:53 AM CDT Burt Dos Santos MD PhD LAB BLOOD ORDERABLES Final Result [facility] [place] [address] * (ABNORMAL) CBC with auto differential (08/25/2021 7:51 AM CDT) WBC 14.1(H) 3.8 - 9.8 K/cumm [facility] Comment:Testing performed by : [facility], [address] [place] [phone] Hgb 14.8 13.8 - 17.2 g/dL [facility] Comment:Testing performed by : [facility], [address] [place] [phone] Hct 43.4 40.7 - 50.3 % [facility] Comment:Testing performed by : [facility], [address] [place] [phone] Plt 185 140 - 440 K/cumm [facility] Comment:Testing performed by : [facility], [address] [place] [phone] MPV 11.5(H) 6.8 - 10.4 fL [facility] Comment:Testing performed by : [facility], [address] [place], [place] [phone] RBC 4.61 4.50 - 5.70 M/cumm [facility] Comment:Testing performed by : [facility], [address] [place], [place] [phone] MCV 94.0 80.0 - 97.6 fL [facility] Comment:Testing performed by : [facility], [address] [place], [place] [phone] MCH 32.2 26.7 - 33.7 pg [facility] CA[facility] Comment:Testing performed by : [place] [phone] MCHC 34.2 32.7 - 35.5 g/dL [facility] Comment:Testing performed by : [facility], [address] [place] [phone] RDW CV 15.1(H) 11.8 - 14.6 % [facility] Comment:Testing performed by : [facility], [address] [place] [phone] NRBC abs 0.02(H) 0.00 - 0.01 K/cumm [facility] Comment:Testing performed by : [address] [phone] Blood 08/25/2021 7:51 AM CDT 08/25/2021 7:53 AM CDT us Burt Dos Santos MD PhD LAB BLOOD ORDERABLES Final Result [facility] Department [place] [address] * (ABNORMAL) Comprehensive metabolic panel (08/25/2021 7:51 AM CDT) Sodium 137 135 - 145 mmol/L [facility] Comment:Testing performed by : [facility], [address] [place] [phone] Potassium, pl 4.6 3.3 - 4.9 mmol/L CERNER BJ Comment:Testing performed by : [facility], [address] [place] [phone] Chloride 99 97 - 110 mmol/L CERNER BJ Comment:Testing performed by : [facility], [address] [place] [phone] CO2 29 22 - 32 mmol/L CERNER BJ Comment:Testing performed by : [facility], [address] [place] [phone] Anion gap 9 2 - 15 mmol/L [facility]ERNER BJ Comment:Testing performed by : [facility], [address] [place] [phone] BUN 19 8 - 25 mg/dL CERNER BJ Comment:Testing performed by : [facility], [address] [place] [phone] Creatinine 0.79(L) 0.80 - 1.30 mg/dL CERNER BJ Comment:Testing performed by : [facility], [address] [place] [phone] Glucose 121 70 - 199 mg/dL CERN[facility] BJ Comment: [...] was last revised 2017. Testing performed by: [facility], [address] [place] [phone] Calcium 9.4 8.5 - 10.3 mg/dL CERNER BJ Comment:Testing performed by : [facility], [address] [place] [phone] Bilirubin, total 0.6 0.1 - 1.2 mg/dL CERN[facility] BJ Comment:Testing performed by : [facility], [address] [place] [phone] Protein, pl 6.3(L) 6.5 - 8.5 g/dL [facility] Comment:Testing performed by : [facility], [address] [place] [phone] Albumin 4.7 3.5 - 5.0 g/dL [facility] Comment:Testing performed by : [facility], [address] [place] [phone] Alk phos 87 40 - 130 Units/L [facility] Comment:Testing performed by : [facility], [address] [place] [phone] ALT 20 7 - 55 Units/L [facility] Comment:Testing performed by : [facility], [address] [place] [phone] AST 17 10 - 50 Units/L [facility] Comment:Testing performed by : [facility], [address] [place] [phone] Blood 08/25/2021 7:51 AM CDT 08/25/2021 7:53 AM CDT Burt Dos Santos MD PhD LAB BLOOD ORDERABLES Final Result Performing Organization Address City/State/[facility] Co de Phone Number [facility] Department [place] [address] documented in this encounter Visit Diagnoses Diagnosis CLL (chronic lymphocytic leukemia) (HCC) Chronic lymphoid leukemia, without mention of having achieved remission Hypogammaglobulinemia (HCC) Unspecified hypogammaglobulinemia documented in this encounter Additional Health Concerns Infection Onset Date Last Indicated Resolved Time C. difficile Comment:Backloaded December 21, 2010 09/21/2010 09/21/2010 documented as of this encounter Care Teams Pharmacy Graduate Intern Relationship Specialty Start Date End Date Lenin Ventura MD [address] [address] PCP - General 07/06/16 Lenin Ventura MD [address] [address] 07/06/16 Burt Dos Santos MD PhD [address] [address] Medical Oncologist/Rn Medicare Medical Oncology 06/16/19 documented as of this encounter
--- OUTSIDE RECORDS SUMMARY | 2024-02-22 08:30 | XMS_ITS | Encounter Summary ---
Author Organization [facility] Address [address] [place] [address] Phone Care Team Providers Care Pbx Supervisor Name Role Phone Lenin Ventura MD Primary Care Provider [phone] Lenin Ventura MD Unavailable [phone] Burt Dos Santos MD PhD Unavailable [phone] Reason for Visit * Oncology (Routine) - Authorized Specialty Diagnoses / Procedures Referred By Contac t Referred To Contact Medical Oncology / Oncology Diagnoses Appt Comment: LAB Procedures RETURN Lenin Ventura MD [address] [facility] [address] [place] [address] Phone: tel: fax: Burt Dos Santos MD PhD [phone] [facility] [place] [address] DIV IM BONE MARROW TRANSPLANT, 5TH, [address] [place] [address] Phone: tel: fax: Referral ID Status Reason Start Date Expiration Date V isits Requested Visits Authorized [id number] Authorized 08/02/2017 03/12/2024 99 99 Encounter Details Date Type Department Care Team (Late st Contact Info) Description 11/09/2021 10:00 AM CDT Office Visit [facility] Marrow Transplant [address] [facility] 7th Floor, [place] [address] Burt Dos Santos MD PhD [address] DIV IM BONE MARROW TRANSPLANT, [address] [place] [address] CLL (chronic lymphocytic leukemia) ([facility]) ([facility]) Social History Tobacco Use Types Packs/Day Years Used Date Smoking Tobacco: Former Smokeless Tobacco: Never Alcohol Use Standard Drinks/Week Comments Not Currently 0 (1 standard drink = 0.6 oz pur e alcohol) Sex and Gender Information Value Date Recorded Sex Assigned at Not on file 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 Gender Identity Not on file Sexual Orientation Not on file documented as of this encounter Last Filed Vital Signs Vital Sign Reading Time Taken Comments Blood Pressure 129/74 11/09/2021 10:02 AM CDT Pulse 83 11/09/2021 10:02 AM CDT Temperature 36.2 ??C (97.2 ??F) 11/09/2021 9:58 AM CD T Respiratory Rate 18 11/09/2021 10:0 2 AM CDT Oxygen Saturation 97% 11/09/2021 10: 02 AM CDT Inhaled Oxygen Concentration - - Weight 124.6 kg (274 lb 12.8 oz) 11/09/2021 9:58 AM CDT Height 187.5 cm (6' 1.82 ) 11/09/2021 9:58 AM CD T Body Mass Index 35.46 11/09/2021 9:58 AM CDT documented in this encounter Progress Notes * Magali Stapleton NP - 11/09/2021 10:00 AM CDT BMT Progress Note Oncology History CLL (chronic lymphocytic leukemia) ([facility]) ([facility]) 07/03/2005 Initial Diagnosis Lymphoma, small lymphocytic; Initial [...] then q2mo x 4; on clinical trial [facility] [id number] --> stable disease on CT; marrow 30-40% [...] He was last seen in clinic on 4 months ago.. Since then, he has felt well in general. He continues on ibrutinib 420 mg daily. He has tolerated this well, with chronic toxicities including loose stools, easy bruising and bleeding on his hands and forearms, sinus infections, and mouth sores, which he treats with acyclovir. These side effects are manageable. He denies any recent infections, fevers, chills, night sweats, palpitations, chest pain or discomfort, or worsening fatigue. 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 Outpatient Encounter Medications as of 11/09/2021: acyclovir (ZOVIRAX) 200 mg capsule, Take 2 capsules (400 mg total) by mouth 2 (two) times a day, Disp: 360 capsule, Rfl: 3 ALPRAZolam (XANAX) 0.25 mg tablet, Take 0.5-1 tablets by mouth 3 (three) times a day as needed for anxiety, Disp: , Rfl: fluticasone (FLONASE) 50 mcg/actuation nasal spray, Administer [...] mouth daily, Disp: 30 each, Rfl: 0 amoxicillin-clavulanate (AUGMENTIN) 875-125 mg per tablet, TK 1 T PO BID (Patient not taking: No sig reported), Disp: , Rfl: cholecalciferol (cholecalciferol) 1000 unit tablet, Take 1 tablet (1,000 Units total) by mouth daily, Disp: 30 tablet, Rfl: 11 cyanocobalamin (Vitamin B-12) 1,000 mcg tablet, Take 1 tablet (1,000 mcg total) by mouth daily, Disp: 30 tablet, Rfl: 11 doxycycline 100 mg tablet, Take 100 mg by mouth 2 (two) times a day (Patient not taking: No sig reported), Disp: , Rfl: DULoxetine DR (CYMBALTA) 30 mg capsule, Take 30 mg by mouth daily (Patient not taking: No sig reported), Disp: , Rfl: levoFLOXacin (LEVAQUIN) 500 mg tablet, Take 500 mg by mouth daily (Patient not taking: No sig reported), Disp: , Rfl: Objective Vitals: BP: 129/74 Temp: 36.2 ??C (97.2 ??F) Temp src: Transdermal Pulse: 83 Resp: 18 SpO2: 97 % Height: 187.5 [...] CBC: Lab Results Component Value Date/Time WBC 11.4 (H) 11/09/2021 09:49 AM WBC 13.7 (H) 04/10/2019 03:03 PM HGB 14.6 11/09/2021 09:49 AM HGB 14.2 04/10/2019 03:03 PM HCT 42.9 11/09/2021 09:49 AM HCT 41.2 04/10/2019 03:03 PM LABPLAT 154 11/09/2021 09:49 AM LABPLAT 158 04/10/2019 03:03 PM NEUTROABS 4.7 11/09/2021 09:49 AM NEUTROABS 4,590 04/10/2019 03:03 PM CMP: Lab Results Component Value Date/Time SODIUM 139 11/09/2021 09:49 AM POTASSIUM 4.4 11/09/2021 09:49 AM CO2 27 11/09/2021 09:49 AM BUNSER 18 11/09/2021 09:49 AM GLUCOSE 160 11/09/2021 09:49 AM CREATININE 0.87 11/09/2021 09:49 AM CALCIUM 9.4 11/09/2021 09:49 AM CHLORIDE 104 11/09/2021 09:49 AM ALBUMIN 4.5 11/09/2021 09:49 AM AST 17 11/09/2021 09:49 AM ALT 19 11/09/2021 09:49 AM ALKPHOS 81 11/09/2021 09:49 AM BILITOT 0.7 11/09/2021 09:49 AM PROT 6.7 11/09/2021 09:49 AM ANIONGAP 8 11/09/2021 09:49 AM LDH: Lab Results Component Value Date/Time LDH 148 11/09/2021 09:49 AM Radiology: No imaging today. Assessment and [...] Recurrent SLL/CLL: He continues to tolerate ibrutinib well. Experiences minor side effects, including diarrhea and bruising, though these are manageable. 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 No cardiac toxicity noted. 2. Recurrent sinus infections: Known allergies prior to starting BTK inhibitors, though worsened now. Has completed 6 cycles of IVIG. IgG levels are <300 07/13/21. He received 3 doses of IVIG and now his IgG level is 687 today. As always, the patient knows to contact our office with any questions or concerns in the interim. documented in this encounter Nursing Notes * Roberta Watkins RN - 11/09/2021 10:00 AM CDT ROV with Magali for CLL/SLL. Doing well from our standpoint. ROV in 3 months documented in this encounter Plan of Treatment Not on file documented as of this encounter Results * (ABNORMAL) IgG (02/15/2022 9:29 AM STRIPPER SHOVEL OPERATOR) Immunoglobulin G 361.0(L) 700.0 - 1,600.0 mg/dL [facility] Blood 02/15/2022 9:29 AM STRIPPER SHOVEL OPERATOR 02/15/2022 10:00 AM STRIPPER SHOVEL OPERATOR us Magali Stapleton F[employer]NACE [employer] LAB BLOOD ORDERABLES Final Res ult [facility] Department [place] [address] * Lactate dehydrogenase (LD) (02/15/2022 9:29 AM STRIPPER SHOVEL OPERATOR) Pathologist [facility] Lactate dehydrogenase (LDH) 189 100 - 250 Units/L [facility] Comment:Testing performed by : [facility], [address] [place] [phone] Blood 02/15/2022 9:29 AM STRIPPER SHOVEL OPERATOR 02/15/2022 9:30 AM STRIPPER SHOVEL OPERATOR us Magali Stapleton FURNACE BRAZER LAB BLOOD ORDERABLES Final Res ult [facility] Department [place] [address] * (ABNORMAL) Comprehensive metabolic panel (02/15/2022 9:29 AM STRIPPER SHOVEL OPERATOR) Sodium 137 135 - 145 mmol/L [facility] Comment:Testing performed by : [facility], [address] [place] [phone] Potassium, pl 4.8 3.3 - 4.9 mmol/L [facility] Comment:Testing performed by : [facility], [address] [place] [phone] Chloride 100 97 - 110 mmol/L [facility] Comment:Testing performed by : [facility], [address] [place] [phone] CO2 30 22 - 32 mmol/L [facility] Comment:Testing performed by : [facility], [address] [place] [phone] Anion gap 7 2 - 15 mmol/L [facility] Comment:Testing performed by : [facility], [address] [place] [phone] BUN 16 8 - 25 mg/dL [facility] Comment:Testing performed by : [facility], [address] [place] [phone] Creatinine 0.86 0.80 - 1.30 mg/dL [facility] Comment:Testing performed by : [facility], [address] [place] [phone] Glucose 101 70 - 199 mg/dL [facility] Comment: [...] was last revised 2017. Testing performed by: [facility], [address] [place] [phone] Calcium 9.9 8.5 - 10.3 mg/dL [facility] Comment:Testing performed by : [facility], [address] [place] [phone] Bilirubin, total 0.7 0.1 - 1.2 mg/dL [facility] Comment:Testing performed by : [facility], [address] [place] [phone] Protein, pl 6.4(L) 6.5 - 8.5 g/dL [facility] Comment:Testing performed by : [facility], [address] [place] [phone] Albumin 4.5 3.5 - 5.0 g/dL [facility] Comment:Testing performed by : [facility], [address] [place] [phone] Alk phos 84 40 - 130 Units/L [facility] Comment:Testing performed by : [address] [phone] ALT 24 7 - 55 Units/L [facility] Comment:Testing performed by : [address] [phone] AST 19 10 - 50 Units/L [facility] Comment:Testing performed by : [address] [phone] Blood 02/15/2022 9:29 AM STRIPPER SHOVEL OPERATOR 02/15/2022 9:30 AM STRIPPER SHOVEL OPERATOR us Magali Stapleton FURNACE BRAZER LAB BLOOD ORDERABLES Final Res ult [facility] Department [place] [address] * (ABNORMAL) CBC with auto differential (02/15/2022 9:29 AM STRIPPER SHOVEL OPERATOR) WBC 13.2(H) 3.8 - 9.8 K/cumm [facility] Comment:Testing performed by : [facility], [address] [place] [address] Hgb 14.1 13.8 - 17.2 g/dL [facility] Comment:Testing performed by : [place] [address] Hct 42.4 40.7 - 50.3 % [facility] Comment:Testing performed by : [facility], [address] [place] [address] Plt 180 140 - 440 K/cumm [facility] Comment:Testing performed by : [place] [address] MPV 12.0(H) 6.8 - 10.4 fL [facility] Comment:Testing performed by : [place] [address] RBC 4.46(L) 4.50 - 5.70 M/cumm [facility] Comment:Testing performed by : [place] [address] MCV 95.0 80.0 - 97.6 fL [facility] Comment:Testing performed by : [place] [address] MCH 31.7 26.7 - 33.7 pg [facility] Comment:Testing performed by : [place] [address] MCHC 33.3 32.7 - 35.5 g/dL [facility] Comment:Testing performed by : [place] [address] RDW CV 15.1(H) 11.8 - 14.6 % [facility] Comment:Testing performed by : [place] [address] NRBC abs 0.01 0.00 - 0.01 K/cumm [facility] Comment:Testing performed by : [place] [address] Blood 02/15/2022 9:29 AM STRIPPER SHOVEL OPERATOR 02/15/2022 9:30 AM STRIPPER SHOVEL OPERATOR us Magali Velazquezr FURNACE BRAZER LAB BLOOD ORDERABLES Final Res ult [facility] Department [place] [address] documented in this encounter Visit Diagnoses Diagnosis CLL (chronic lymphocytic leukemia) (HCC) Chronic lymphoid leukemia, without mention of having achieved remission documented in this encounter Orders Lab Orders Without Results Count Last Ordered D ate First Ordered Date IGG 1 11/09/2021 Appointment Requests Count Last Ordered Date Fi rst Ordered Date ONCBCN CLINIC APPOINTMENT REQUEST 2 022 11/09/2021 ONCBCN LAB APPOINTMENT 1 02/15/2022 documented in this encounter Additional Health Concerns Infection Onset Date Last Indicated Resolved Time C. difficile Comment:Backloaded December 21, 2010 09/21/2010 09/21/2010 documented as of this encounter Care Teams Pbx Supervisor Relationship Specialty Start Date End Date Lenin Ventura MD [address] [employer] [address] PCP - General 07/06/16 Lenin Ventura MD [address] [address] 07/06/16 Burt Dos Santos MD PhD [address] [address] Medical Oncologist/Shell Plater Medical Oncology 06/16/19 documented as of this encounter
--- OUTSIDE RECORDS SUMMARY | 2024-02-22 08:30 | XMS_ITS | Encounter Summary ---
Author Organization [facility] Address [address] [place] [address] Care Team Providers Care Lipcoat Sprayer Name Role Phone Lenin Ventura MD Primary Care Provider [phone] Lenin Ventura MD Unavailable [phone] Burt Dos Santos MD PhD Unavailable [phone] Encounter Details Date Type Department Care Team (Latest Contact Info) Description 10/20/2021 11:12 AM CDT - 10/20/2021 11:59 PM CDT Hospital Encounter [facility] ([facility]) [address] [place] [phone] CLL (chronic lymphocytic leukemia) ([facility] ([facility]); Hypogammaglobulinem ia ([facility] ([facility]) Discharge Disposition: Discharge to home or self care Social History Tobacco Use Types Packs/Day Years Used Date Smoking Tobacco: Former Smokeless Tobacco: Never Alcohol Use Standard Drinks/Week Comments Not Currently 0 (1 standard drink = 0.6 oz pur e alcohol) Sex and Gender Information Value Date Recorded Sex Assigned at Not on file 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 Gender Identity Not on file Sexual [...] 100 mg tabletIndications :CLL (chronic lymphocytic leukemia) ([facility]) 03/14/2020 traZODone (DESYREL) 50 mg tabletIndications :CLL (chronic lymphocytic leukemia) (HCC) Take 1 tablet (50 mg total) by mouth nightly 12/20/2020 zinc 50 mg tabletIndications :Zinc deficiency Take 50 mg by mouth daily 30 each 06/25/2019 acyclovir (ZOVIRAX) 200 mg capsuleIndication s:Prophylaxis, Medical Take 2 capsules (400 mg total) by mouth 2 (two) times a day 360 capsule 3 09/01/2021 3 amoxicillin-clavu lanate (AUGMENTIN) 875-125 mg per tablet [...] FULL GLASS OF WATER 28 tablet 3 09/22/2021 2 levoFLOXacin (LEVAQUIN) 500 mg tabletIndications :CLL (chronic lymphocytic leukemia) (HCC) Take 500 mg by mouth daily 08/15/2020 2 documented as of this encounter Discharge Disposition Disposition Code Departure Means Destination Discharge to home or self care documented in this encounter Plan of Treatment Not on file documented as of this encounter Procedures Procedure Name Priority Date/Time Associated Diagnosis Comments EGFR STAT 10/20/2021 7:58 AM CDT CLL (chronic lymphocytic leukemia) (CMS/HCC) (HCC) Hypogammaglobulinem ia (CMS/HCC) (HCC) CBC WITH AUTO DIFFERENTIAL STAT 10/20/2021 7:58 AM CDT CLL (chronic lymphocytic leukemia) (CMS/HCC) (HCC) Hypogammaglobulinem ia (CMS/HCC) (HCC) MANUAL DIFFERENTIAL STAT 10/20/2021 7 :58 AM CDT CLL (chronic lymphocytic leukemia) (CMS/HCC) (HCC) Hypogammaglobulinem ia (CMS/HCC) (HCC) COMPREHENSIVE METABOLIC PANEL STAT 10/20/2021 7:58 AM CDT CLL (chronic lymphocytic leukemia) (CMS/HCC) (HCC) Hypogammaglobulinem ia (CMS/HCC) (HCC) documented in this encounter Results * (ABNORMAL) eGFR (10/20/2021 7:58 AM CDT) eGFR 87(L) 90 - 130 mL/min/1. 73 m2 [facility] [...] was last reviewed 2021. Testing performed by: [facility], [address] [place] [phone] Blood 10/20/2021 7:58 AM CDT 10/20/2021 8:00 AM CDT Burt Dos Santos MD PhD LAB BLOOD ORDERABLES Final Result [facility] Department [place] [address] * (ABNORMAL) Manual Differential (10/20/2021 7:58 AM CDT) Differential Manual [facility] Cells Counted 100 [facility] Neutrophil abs 5.5 1.7 - 6.5 K/cumm [facility] Imm gran abs 0.3(H) 0.0 - 0.1 K/cumm [facility] Lymphocyte abs 6.6(H) 0.8 - 3.3 K/cumm [facility] Monocyte abs 0.4 0.2 - 0.8 K/cumm [facility] Eosinophil abs 0.1 0.0 - 0.5 K/cumm [facility] Basophil abs 0.1 0.0 - 0.1 K/cumm [facility] Neutrophil pct 41.0 % [facility] Lymphocyte pct 51.0 % [facility] Monocyte pct 3.0 % [facility] Eosinophil pct 1.0 % [facility] Basophil pct 1.0 % [facility] Band Neutrophil pct 1.0 0.0 - 6.0 % [facility] Metamyelocyte pct 1.0(H) 0.0 - 0.0 % [facility] Myelocyte pct 1.0(H) 0.0 - 0.0 % [facility] Promyelocyte pct 0.0 0.0 - 0.0 % [facility] Variant lymph pct 0.0 0.0 - 0.0 % [facility] RBC morphology Normal [facility] Platelet estimate Adequate [facility] Blood 10/20/2021 7:58 AM CDT 10/20/2021 8:00 AM CDT Burt Dos Santos MD PhD LAB BLOOD ORDERABLES Final Result [facility] Department [place] [address] * (ABNORMAL) CBC with auto differential (10/20/2021 7:58 AM CDT) WBC 13.0(H) 3.8 - 9.8 K/cumm [facility] Comment:Testing performed by : [address] [phone] Hgb 14.8 13.8 - 17.2 g/dL [facility] Comment:Testing performed by : [facility], [address] [place] [phone] Hct 43.4 40.7 - 50.3 % [facility] Comment:Testing performed by : [address] [phone] Plt 194 140 - 440 K/cumm [facility] Comment:Testing performed by : [address] [phone] MPV 11.2(H) 6.8 - 10.4 fL [facility] Comment:Testing performed by : [facility], [address] [place] [phone] RBC 4.65 4.50 - 5.70 M/cumm [facility] Comment:Testing performed by : [address] [phone] MCV 93.3 80.0 - 97.6 fL [facility] Comment:Testing performed by : [address] [phone] MCH 31.8 26.7 - 33.7 pg [facility] Comment:Testing performed by : [facility], [address] [place] [phone] MCHC 34.1 32.7 - 35.5 g/dL [facility] Comment:Testing performed by : [facility], [address] [place] [phone] RDW CV 14.8(H) 11.8 - 14.6 % [facility] Comment:Testing performed by : [facility], [address] [place] [phone] NRBC abs 0.01 0.00 - 0.01 K/cumm [facility] Comment:Testing performed by : [facility], [address] [place] [phone] Blood 10/20/2021 7:58 AM CDT 10/20/2021 8:00 AM CDT Burt Dos Santos MD PhD LAB BLOOD ORDERABLES Final Result [facility] Department [place] [address] * Comprehensive metabolic panel (10/20/2021 7:58 AM CDT) Sodium 137 135 - 145 mmol/L [facility] Comment:Testing performed by : [facility], [address] [place] [phone] Potassium, pl 4.9 3.3 - 4.9 mmol/L [facility] Comment:Testing performed by : [facility], [address] [place] [phone] Chloride 99 97 - 110 mmol/L [facility] Comment:Testing performed by : [facility], [address] [place] [phone] CO2 31 22 - 32 mmol/L [facility] Comment:Testing performed by : [facility], [address] [place] [phone] Anion gap 7 2 - 15 mmol/L [facility] Comment:Testing performed by : [facility], [address] [place] [phone] BUN 16 8 - 25 mg/dL [facility] Comment:Testing performed by : [facility], [address] [place] [phone] Creatinine 0.95 0.80 - 1.30 mg/dL [facility] Comment:Testing performed by : [facility], [address] [place] [phone] Glucose 150 70 - 199 mg/dL [facility] Comment: [...] was last revised 2017. Testing performed by: [facility], [address] [place] [phone] Calcium 9.6 8.5 - 10.3 mg/dL [facility] Comment:Testing performed by : [address] [phone] Bilirubin, total 0.4 0.1 - 1.2 mg/dL [facility] Comment:Testing performed by : [address] [phone] Protein, pl 6.9 6.5 - 8.5 g/dL [facility] Comment:Testing performed by : [address] [phone] Albumin 4.6 3.5 - 5.0 g/dL [facility] Comment:Testing performed by : [address] [phone] Alk phos 91 40 - 130 Units/L [facility] Comment:Testing performed by : [place] [phone] ALT 21 7 - 55 Units/L [facility] Comment:Testing performed by : [address] [phone] AST 21 10 - 50 Units/L [facility] Comment:Testing performed by : [facility], [address] [place] [phone] Blood 10/20/2021 7:58 AM CDT 10/20/2021 8:00 AM CDT Result [facility] Burt Dos Santos MD PhD LAB BLOOD ORDERABLES Final Result Performing Organization Address City/State/[facility] Co de Phone Number [facility] Department [place] [address] documented in this encounter Visit Diagnoses Diagnosis CLL (chronic lymphocytic leukemia) (HCC) Chronic lymphoid leukemia, without mention of having achieved remission Hypogammaglobulinemia (HCC) Unspecified hypogammaglobulinemia documented in this encounter Additional Health Concerns Infection Onset Date Last Indicated Resolved Time C. difficile Comment:Backloaded December 21, 2010 09/21/2010 09/21/2010 documented as of this encounter Care Teams Lipcoat Sprayer Relationship Specialty Start Date End Date Lenin Ventura MD [address] [address] PCP - General 07/06/16 Lenin Ventura MD [address] [address] 07/06/16 Burt Dos Santos MD PhD [address] [address] Medical Oncologist/Wad Compressor Operator Adjuster Medical Oncology 06/16/19 documented as of this encounter
--- OUTSIDE RECORDS SUMMARY | 2024-02-22 08:30 | XMS_ITS | Encounter Summary ---
Author Organization [facility] Healthcare Address [address] [place] [address] Care Team Providers Care Cna Gna Name Role Phone Lenin Ventura MD Primary Care Provider [phone] Lenin Ventura MD Unavailable [phone] Burt Dos Santos MD PhD Unavailable [phone] Encounter Details Date Type Department Care Team (Latest Contact Info) Description 09/22/2021 12:53 PM CDT - 09/22/2021 11:59 PM CDT Hospital Encounter [facility] Advanced Medicine [facility] Advanced Medicine ([facility]) [address] [place] [phone] CLL (chronic lymphocytic leukemia) ([facility]) ([facility]); Hypogammaglobulinem ia ([facility]) ([facility]) Discharge Disposition: Discharge to home or self care Social History Tobacco Use Types Packs/Day Years Used Date Smoking Tobacco: Former Smokeless Tobacco: Never Alcohol Use Standard Drinks/Week Comments Not Currently 0 (1 standard drink = 0.6 oz pur e alcohol) Sex and Gender Information Value Date Recorded Sex Assigned at Not on file 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 Gender Identity Not on file Sexual [...] Procedure Name Priority Date/Time Associated Diagnosis Comments MORPHOLOGIC SCREEN STAT 09/22/2021 8: 38 AM CDT CLL (chronic lymphocytic leukemia) (CMS/HCC) (HCC) Hypogammaglobulinem ia (CMS/HCC) (HCC) EGFR STAT 09/22/2021 8:38 AM CDT CLL (chronic lymphocytic leukemia) (CMS/HCC) (HCC) Hypogammaglobulinem ia (CMS/HCC) (HCC) DIFFERENTIAL AUTO STAT 09/22/2021 8:3 8 AM CDT CLL (chronic lymphocytic leukemia) (CMS/HCC) (HCC) Hypogammaglobulinem ia (CMS/HCC) (HCC) CBC WITH AUTO DIFFERENTIAL STAT 09/22/2021 8:38 AM CDT CLL (chronic lymphocytic leukemia) (CMS/HCC) (HCC) Hypogammaglobulinem ia (CMS/HCC) (HCC) COMPREHENSIVE METABOLIC PANEL STAT 09/22/2021 8:38 AM CDT CLL (chronic lymphocytic leukemia) (CMS/HCC) (HCC) Hypogammaglobulinem ia (CMS/HCC) (HCC) documented in this encounter Results * eGFR (09/22/2021 8:38 AM CDT) Pathologist [facility] eGFR >90 90 - 130 mL/min/1. 73 m2 [facility] Comment: Interpretive Data Reference Interval Normal [...] was last reviewed 2021. Testing performed by: [facility], [address] [place] [phone] Blood 09/22/2021 8:38 AM CDT 09/22/2021 8:39 AM CDT Burt Dos Santos MD PhD LAB BLOOD ORDERABLES Final Result Performing Organization Address City/[facility]/ZIP Co de Phone Number [facility] Department of Laboratories [place], [place] [id number] * Morphologic screen (09/22/2021 8:38 AM CDT) Pathologist [facility] Morphologic Screen Original results obtained required verification by peripheral smear. [facility] Observation Variant lymphocytes noted on screening [facility] Blood 09/22/2021 8:38 AM CDT 09/22/2021 8:39 AM CDT Burt Dos Santos MD PhD LAB BLOOD ORDERABLES Final Result [facility] [place] [address] * (ABNORMAL) Differential, auto (09/22/2021 8:38 AM CDT) Neutrophil abs 4.9 1.8 - 6.6 K/cumm [facility] Comment:Testing performed by : [facility], [address] [place] [phone] Lymphocyte abs 8.1(H) 1.2 - 3.3 K/cumm [facility] Comment:Testing performed by : [facility], [address] [place] [phone] Monocyte abs 0.9 0.2 - 1.2 K/cumm [facility] Comment:Testing performed by : [facility], [address] [place] [phone] Eosinophil abs 0.2 0.0 - 0.5 K/cumm [facility] Comment:Testing performed by : [facility], [address] [place] [phone] Basophil abs 0.1 0.0 - 0.2 K/cumm [facility] Comment:Testing performed by : [facility], [address] [place] [phone] Neutrophil pct 34.6 % [facility] Comment: Interpretive Data Percent cell count reference ranges are not reported, since discordance with absolute values may lead to misinterpretation of CBC data. Current Interpretive Data was last revised on 2017. Testing performed by: [facility], [address] [place] [phone] Lymphocyte pct 56.9 % [facility] Comment: Interpretive Data Percent cell count reference ranges are not reported, since discordance with absolute values may lead to misinterpretation of CBC data. Current Interpretive Data was last revised on 2017. Testing performed by: [facility], [address] [place] [phone] Monocyte pct 6.5 % [facility] Comment:Testing performed by : [facility], [address] [place] [phone] Eosinophil pct 1.1 % [facility] Comment:Testing performed by : [facility], [address] [place] [phone] Basophil pct 0.9 % [facility] Comment:Testing performed by : [facility], [address] [place] [phone] Blood 09/22/2021 8:38 AM CDT 09/22/2021 8:39 AM CDT Burt Dos Santos MD PhD LAB BLOOD ORDERABLES Final Result [facility] Department [place] [address] * (ABNORMAL) CBC with auto differential (09/22/2021 8:38 AM CDT) WBC 14.2(H) 3.8 - 9.8 K/cumm [facility] Comment:Testing performed by : [facility], [address] [place], [place] [phone] Hgb 14.6 13.8 - 17.2 g/dL [facility] Comment:Testing performed by : [address] [phone] Hct 42.6 40.7 - 50.3 % [facility] Comment:Testing performed by : [place] [phone] Plt 143 140 - 440 K/cumm [facility] Comment:Testing performed by : [facility], [address] [place] [phone] MPV 11.3(H) 6.8 - 10.4 fL [facility] Comment:Testing performed by : [address] [phone] RBC 4.52 4.50 - 5.70 M/cumm [facility] Comment:Testing performed by : [address] [phone] MCV 94.2 80.0 - 97.6 fL [facility] Comment:Testing performed by : [facility], [address] [place] [phone] MCH 32.4 26.7 - 33.7 pg [facility] Comment:Testing performed by : [address] [phone] MCHC 34.3 32.7 - 35.5 g/dL [facility] Comment:Testing performed by : [address] [phone] RDW CV 15.0(H) 11.8 - 14.6 % [facility] Comment:Testing performed by : [facility], [address] [place] [phone] NRBC abs 0.01 0.00 - 0.01 K/cumm [facility] Comment:Testing performed by : [facility], [address] [place] [phone] Blood 09/22/2021 8:38 AM CDT 09/22/2021 8:39 AM CDT Burt Dos Santos MD PhD LAB BLOOD ORDERABLES Final Result [facility] [place] [address] * (ABNORMAL) Comprehensive metabolic panel (09/22/2021 8:38 AM CDT) Sodium 137 135 - 145 mmol/L [facility] Comment:Testing performed by : [facility], [address] [place] [phone] Potassium, pl 5.3(H) 3.3 - 4.9 mmol/L [facility] Comment:Testing performed by : [facility], [address] [place] [phone] Chloride 102 97 - 110 mmol/L [facility] Comment:Testing performed by : [facility], [address] [place] [phone] CO2 29 22 - 32 mmol/L [facility] Comment:Testing performed by : [facility], [address] [place] [phone] Anion gap 6 2 - 15 mmol/L [facility] Comment:Testing performed by : [facility], [address] [place] [phone] BUN 22 8 - 25 mg/dL [facility] Comment:Testing performed by : [facility], [address] [place] [phone] Creatinine 0.90 0.80 - 1.30 mg/dL [facility] Comment:Testing performed by : [address] [phone] Glucose 107 70 - 199 mg/dL [facility] Comment: [...] was last revised 2017. Testing performed by: [address] [phone] Calcium 9.3 8.5 - 10.3 mg/dL [facility] Comment:Testing performed by : [address] [phone] Bilirubin, total 0.6 0.1 - 1.2 mg/dL [facility] Comment:Testing performed by : [address] [phone] Protein, pl 6.3(L) 6.5 - 8.5 g/dL [facility] Comment:Testing performed by : [address] [address] Albumin 4.5 3.5 - 5.0 g/dL [facility] Comment:Testing performed by : [address] [phone] Alk phos 81 40 - 130 Units/L [facility] Comment:Testing performed by : [address] [phone] ALT 19 7 - 55 Units/L [facility] Comment:Testing performed by : [address] [phone] AST 18 10 - 50 Units/L [facility] Comment:Testing performed by : [address] [phone] Blood 09/22/2021 8:38 AM CDT 09/22/2021 8:39 AM CDT Burt Dos Santos MD PhD LAB BLOOD ORDERABLES Final Result [facility] [place] [address] documented in this encounter Visit Diagnoses Diagnosis CLL (chronic lymphocytic leukemia) (HCC) Chronic lymphoid leukemia, without mention of having achieved remission Hypogammaglobulinemia (HCC) Unspecified hypogammaglobulinemia documented in this encounter Additional Health Concerns Infection Onset Date Last Indicated Resolved Time C. difficile Comment:Backloaded December 21, 2010 09/21/2010 09/21/2010 documented as of this encounter Care Teams Cna Gna Relationship Specialty Start Date End Date Lenin Ventura MD [address] [place] [address] PCP - General 07/06/16 Lenin Ventura MD [address] [place] [address] 07/06/16 Burt Dos Santos MD PhD [address] [place] [phone] Medical Oncologist/Currency Counter Medical Oncology 06/16/19 documented as of this encounter
--- OUTSIDE RECORDS SUMMARY | 2024-02-22 08:30 | XMS_ITS | Encounter Summary ---
Author Organization [facility] Medical Group Address [address] [facility] [address] [place] [address] Care Team Providers Care Invoice Clerk Name Role Phone Lenin Ventura MD Primary Care Provider [phone] Lenin Ventura MD Unavailable [phone] Burt Dos Santos MD PhD Unavailable [phone] Reason for Visit * Reason Onset Date Comments Covid-19 Home Monitoring 09/09/2021 Encounter Details Date Type Department Care Team (Late st Contact Info) Description 09/09/2021 Telephone [facility] Accountable Care Organization [address] [place] [phone] Zeenat Xiong MA [address] [place] [phone] Covid-19 Home Monitoring Social History Tobacco Use Types Packs/Day Years Used Date Smoking Tobacco: Former Smokeless Tobacco: Never Alcohol Use Standard Drinks/Week Comments Not Currently 0 (1 standard drink = 0.6 oz pur e alcohol) Sex and Gender Information Value Date Recorded Sex Assigned at Not on file 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 The patient was contacted via phone for enrollment in the program. The patient has declined to participate in the automated MyChart Client Technical Professional Program, but has verbally agreed to the Phone Only Home Monitoring Program, which includes being contacted for a daily phone assessment by a [facility] staff member. The patient was informed that members of the healthcare team will contact them depending on the symptoms that they report. This call could come from a variety of phone numbers depending on which member of the healthcare team is contacting the patient, and the patient should be prepared to answer calls from a variety of phone numbers. If the patient is unable to be reached for 3 days, they will be disenrolled from the program. Patient is aware that we will try and reach them at every available phone number, including HIPAA contacts. After review, the patient declined to participate. The ???COVID19 Home Monitoring?? order was not placed to enroll the patient in the phone only version of the program. documented in this encounter Plan of Treatment Not on file documented as of this encounter Visit Diagnoses Not on filedocumented in this encounter Additional Health Concerns Infection Onset Date Last Indicated Resolved Time C. difficile Comment:Backloaded December 21, 2010 09/21/2010 09/21/2010 documented as of this encounter Care Teams Invoice Clerk Relationship Specialty Start Date End Date Lenin Ventura MD [facility] [address] [address] PCP - General 07/06/16 Lenin Ventura MD [address] [address] 07/06/16 Burt Dos Santos MD PhD [address] [address] Medical Oncologist/Elevator Repairer Apprentice Medical Oncology 06/16/19 documented as of this encounter
--- OUTSIDE RECORDS SUMMARY | 2024-02-22 08:30 | XMS_ITS | Encounter Summary ---
Author Organization [facility] Healthcare Address [address] [place] [address] Care Team Providers Care Coremaker Machine Name Role Phone Lenin Ventura MD Primary Care Provider [phone] Lenin Ventura MD Unavailable [phone] Burt Dos Santos MD PhD Unavailable [phone] Reason for Visit * Reason Comments OP Infusion Encounter Details Date Type Department Care Team (Latest Contact Info) Description 09/07/2021 7:22 AM CDT - 09/07/2021 11:59 PM CDT Hospital Encounter [facility] Advanced Medicine ([facility]) [address] [place] [address] COVID (Primary Dx) Discharge Disposition: Discharge to home or self care Social History Tobacco Use Types Packs/Day Years Used Date Smoking Tobacco: Former Smokeless Tobacco: Never Alcohol Use Standard Drinks/Week Comments Not Currently 0 (1 standard drink = 0.6 oz pur e alcohol) Sex and Gender Information Value Date Recorded Sex Assigned at Not on file 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 Gender Identity Not on file Sexual Orientation Not on file documented as of this encounter Last Filed Vital Signs Vital Sign Reading Time Taken Comments Blood Pressure 145/73 09/07/2021 9:04 AM CDT Pulse 84 09/07/2021 9:04 AM CDT Temperature 36.6 ??C (97.8 ??F) 09/07/2021 9:04 AM CD T Respiratory Rate 18 09/07/2021 9:04 AM CDT Oxygen Saturation 96% 09/07/2021 9:04 AM CDT Inhaled Oxygen Concentration - - Weight - - Height - - Body Mass Index - - documented in this encounter Discharge Instructions * Patient Instructions* Rabia Barnett RN - 09/07/2021 7:30 AM CDT .After 4:30 PM during the week, on weekends and holidays, call [phone] and ask to have the Gis Consultant Physician paged for you. Saturday through Saturday, 8 AM to 4:30 PM, call [phone] [facility] Oncology Physician at [facility] and ask for a member of your doctor's team. Special Instructions: Drink at least 64 ounces of decaffeinated liquid every day. Take your temperature 2 times a day. Bring your bottles of all medicines you are taking with you or a complete medication list to all appointments. Additional Information: Diet: As tolerated. Avoid raw or undercooked meats. Activity: As tolerated. Care Instructions: Take all medications as prescribed. Special Instructions: Drink at least 64 ounces of decaffeinated liquid every day. Take your temperature 2 times a day. Bring your bottles of all medicines you are taking or a complete medication list with you to all appointments. CALL YOUR DOCTOR RIGHT AWAY IF YOU HAVE: A temperature of 100.5 F or 38 C Shaking chills DO NOT take Tylenol, aspirin, or ibuprofen unless your doctor tells you to A hard time breathing - Shortness of breath at rest or after minimal exertion Vomiting that is not controlled by your anti-nausea medicine Nausea that prevents you from eating, drinking or taking medicine, and is not being controlled by your anti-nausea medicine Unusual or heavy bleeding Blood in urine, black or bloody stool, or nosebleeds Feeling confused or very sleepy - Weakness or dizziness Pain of increased intensity or development of new pain, including strong headaches CALL WITHIN 24 HOURS FOR: Pain or skin changes at the drug injection site Diarrhea for more than 2 days that is not controlled by anti diarrhea medicine Watery diarrhea, stomach cramps, or nausea that doesn't go away No bowel movement for 2 or more days Frequent and/or painful urinating Persistent cough or a cough producing yellow or green mucous Mouth sores Skin rash If you are unable to get your medicines at the pharmacy Avoid taking any non-prescription medicine without your doctor's approval documented in this encounter Medications at Time [...] mg tabletIndications :CLL (chronic lymphocytic leukemia) ([facility]) 03/14/2020 traZODone (DESYREL) 50 mg tabletIndications :CLL (chronic lymphocytic leukemia) ([facility]) Take 1 tablet (50 mg [...] mg tabletIndications :CLL (chronic lymphocytic leukemia) ([facility]) Take 100 mg by mouth 2 (two) times a day 04/11/[address] (CYMBALTA) 30 mg capsuleIndication s:CLL (chronic lymphocytic leukemia) ([facility]) Take 30 mg by mouth daily 07/18/2020 [...] or self care documented in this encounter Nursing Notes * Rabia Barnett RN - 09/07/2021 7:30 AM CDT Pt arrived to the [facility] to receive bebtelovimab for COVID. VS WNL. 22g PIV started in Rt AC. Blood return noted and flushed easily. Pt tolerated medication well. Post 1 hour observation VSS. PIV removed per protocol. D/c instructions printed and reviewed w/ patient. Pt d/c to home, ambulatory and in stable condition. documented in this encounter Plan of Treatment Not on file documented as of this encounter Visit Diagnoses Diagnosis COVID- Primary documented in this encounter Administered Medications Inactive Administered Medications - up to 3 most recent administrations Medication Order MAR Action Action Date Dose Rate Site bebtelovimab 175 mg/2 mL (87.5 mg/mL) IV solution 175 mg 175 mg, intravenous, Once, On [place] 09/07/21 at 0755, For 1 dose, Do not shake. Allow to equilibrate to room temperature for 20 minutes prior to administration. Withdraw 2 mL from the vial into syringe. Administer via IV injection over at least 30 seconds. Flush with 0.9% Sodium Chloride. Clinically observe patients for at least 1 hour after injection is complete, Does the patient have a positive SARS-CoV-2 test (rapid antigen or PCR)? Yes, Date of test: 09/06/2021, Is the patient able to receive bebtelovimab within 7 days of symptom onset? Yes, Date of symptom onset: 09/03/2021, Does the patient have mild to moderate COVID-19? Yes, Patient has at least one of the following high-risk conditions (select all that apply): Immunosuppressive disease or treatment, I attest the patient meets all EUA requirements, the Fact Sheet has been communicated, and the patient/caregiver has been/will be provided a copy: Yes, By signing this order, I authorize that another COVID-19 monoclonal antibody regimen may be substituted for this specific order based on product availability and circulating variants, as recommended by the CDC and the authorized State agency. Acknowledge, I attest this patient has no other FDA-authorized COVID-19 treatments accessible or clinically appropriate: YesIndications:COVID Given 09/07/2021 7:55 AM CDT 175 mg documented in this encounter Orders Medications Ordered That Juan ht Not Have Been Administered Count Last Ordered Date First Ordered Date albuterol HFA (PROVENTIL HFA ,VENTOLIN HFA,PROAIR HFA) 90 mcg/actuation inhaler 2 puff 1 09/07/2021 bebtelovimab 175 mg/2 mL (87 .5 mg/mL) IV solution 175 mg 1 09/07/2021 diphenhydrAMINE (BENADRYL) capsule 50 mg 1 09/07/2021 diphenhydrAMINE (BENADRYL) injection 25 mg 1 09/07/2021 diphenhydrAMINE (BENADRYL) injection 50 mg 1 09/07/2021 diphenhydrAMINE (BENADRYL) tab/cap 25 mg 1 09/07/2021 EPINEPHrine 0.3 mg/0.3 mL syringe 0.3 mg 1 09/07/2021 methylPREDNISolone sodium gates ccinate (SOLU-medrol) preservative free injection 125 mg 1 09/07/2021 ondansetron (ZOFRAN) injection 4 mg 09/07 ondansetron (ZOFRAN) tablet 4 mg 09/08/19 22 sodium chloride 0.9% bolus 500 mL 022 sodium chloride 0.9% flush 10 mL 09/08/19 22 sodium chloride 0.9% infusion 30 mL 1 09/07 Nursing Count Last Ordered Date First Orde red Date MONITOR PATIENT FOR HYPERSEN SITIVITY REACTIONS 1 09/07/2021 NURSING COMMUNICATION 4 09/07/2021 ONCBCN PROVIDER COMMUNICATION 1 1 2 ONCBCN PROVIDER COMMUNICATION 10 09/08/19 22 VITAL SIGNS 2 09/07/2021 Appointment Requests Count Last Ordered Date Fi rst Ordered Date INFUSION APPT REQUEST 150 MIN 1 09/07/2021 documented in this encounter Additional Health Concerns Infection Onset Date Last Indicated Resolved Time C. difficile Comment:Backloaded December 21, 2010 09/21/2010 09/21/2010 documented as of this encounter Care Teams Coremaker Machine Relationship Specialty Start Date End Date Lenin Ventura MD [address] [place] [address] PCP - General 07/06/16 Lenin Ventura MD [address] [place] [address] 07/06/16 Burt Dos Santos MD PhD [address] [place] [address] Medical Oncologist/Hydrogen Power Plant Manager Medical Oncology 06/16/19 documented as of this encounter
--- OUTSIDE RECORDS SUMMARY | 2024-02-22 08:30 | XMS_ITS | Encounter Summary ---
Author Organization [facility] Address [address] [place] [address] Phone Care Team Providers Care Cook Helper Preserves Name Role Phone Lenin Ventura MD Primary Care Provider [phone] Lenin Ventura MD Unavailable [phone] Burt Dos Santos MD PhD Unavailable [phone] Reason for Visit * Oncology (Routine) - Authorized Specialty Diagnoses / Procedures Referred By Contac t Referred To Contact Oncology Diagnoses CLL (chronic lymphocytic leukemia) (HCC) Procedures ONCBCN ARM DRAW APPT ONC LAB ONLY Burt Dos Santos MD PhD Phone: tel: fax: Burt Dos Santos MD PhD Phone: tel: fax: Referral ID Status Reason Start Date Expiration Date Visits Requested Visits Authorized [id number] Authorized Specialty Services Required 07/03/2019 03/12/2024 99 [phone] Encounter Details Date Type Department Care Team (Late st Contact Info) Description 09/22/2021 8:15 AM CDT Lab [facility] Oncology [facility] 7th [place] [address] [place] [address] CLL (chronic lymphocytic leukemia) (CMS/HCC) (HCC); Hypogammaglobulinemia (CMS/HCC) (HCC) Social History Tobacco Use Types Packs/Day Years Used Date Smoking Tobacco: Former Smokeless Tobacco: Never Alcohol Use Standard Drinks/Week Comments Not Currently 0 (1 standard drink = 0.6 oz pur e alcohol) Sex and Gender Information Value Date Recorded Sex Assigned at Not on file 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 difficile Comment:Backloaded December 21, 2010 09/21/2010 09/21/2010 documented as of this encounter Care Teams Cook Helper Preserves Relationship Specialty Start Date End Date Lenin Ventura MD [address] [address] PCP - General 07/06/16 Lenin Ventura MD [address] [address] 07/06/16 Burt Dos Santos MD PhD [address] [address] Medical Oncologist/Thread Drawer Medical Oncology 06/16/19 documented as of this encounter
--- OUTSIDE RECORDS SUMMARY | 2024-02-22 08:30 | XMS_ITS | Encounter Summary ---
Author Organization [facility] Address [address] [place] [address] Phone Care Team Providers Care Motor Vehicle Clerk Name Role Phone Lenin Ventura MD Primary Care Provider [phone] Lenin Ventura MD Unavailable [phone] Burt Dos Santos MD PhD Unavailable [phone] Reason for Visit * Oncology (Routine) - Authorized Specialty Diagnoses / Procedures Referred By Contac t Referred To Contact Oncology Diagnoses CLL (chronic lymphocytic leukemia) (HCC) Procedures ONCBCN ARM DRAW APPT ONC LAB ONLY Burt Dos Santos MD PhD Phone: tel: fax: Burt Dos Santos MD PhD Phone: tel: fax: Referral ID Status Reason Start Date Expiration Date Visits Requested Visits Authorized [id number] Authorized Specialty Services Required 07/03/2019 03/12/2024 99 99 Encounter Details Date Type Department Care Team (Late st Contact Info) Description 11/09/2021 9:30 AM CDT Lab [facility] Oncology Formerly [facility] 7th [place] [address] [place] [address] CLL (chronic lymphocytic leukemia) (CMS/HCC) (HCC) Social History Tobacco Use Types Packs/Day Years Used Date Smoking Tobacco: Former Smokeless Tobacco: Never Alcohol Use Standard Drinks/Week Comments Not Currently 0 (1 standard drink = 0.6 oz pur e alcohol) Sex and Gender Information Value Date Recorded Sex Assigned at Not on file 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 difficile Comment:Backloaded December 21, 2010 09/21/2010 09/21/2010 documented as of this encounter Care Teams Motor Vehicle Clerk Relationship Specialty Start Date End Date Lenin Ventura MD [facility] [address] [employer] [address] PCP - General 07/06/16 Lenin Ventura MD [facility] [address] [employer] [address] 07/06/16 Burt Dos Santos MD PhD [facility] [address] [employer] [address] Medical Oncologist/Ict Sales Assistant Medical Oncology 06/16/19 documented as of this encounter
--- OUTSIDE RECORDS SUMMARY | 2024-02-22 08:30 | XMS_ITS | Encounter Summary ---
Author Organization [facility] Address [address] [place] [address] Care Team Providers Care Farmworker Bulbs Name Role Phone Lenin Ventura MD Primary Care Provider [phone] Lenin Ventura MD Unavailable [phone] Burt Dos Santos MD PhD Unavailable [phone] Encounter Details Date Type Department Care Team (Latest Contact Info) Description 11/09/2021 9:14 AM CDT - 11/09/2021 11:59 PM CDT Hospital Encounter [facility] Advanced Medicine [facility] ([facility]) [address] [place] [phone] CLL (chronic lymphocytic leukemia) ([facility]/HCC) ([facility]) Discharge Disposition: Discharge to home or self care Social History Tobacco Use Types Packs/Day Years Used Date Smoking Tobacco: Former Smokeless Tobacco: Never Alcohol Use Standard Drinks/Week Comments Not Currently 0 (1 standard drink = 0.6 oz pur e alcohol) Sex and Gender Information Value Date Recorded Sex Assigned at Not on file 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 Gender Identity Not on file Sexual [...] Priority Date/Time Associated Diagnosis Comments EGFR STAT 11/09/2021 9:49 AM CDT CLL (chronic lymphocytic leukemia) (CMS/HCC) (HCC) DIFFERENTIAL AUTO STAT 11/09/2021 9:4 9 AM CDT CLL (chronic lymphocytic leukemia) (CMS/HCC) (HCC) CBC WITH AUTO DIFFERENTIAL STAT 11/09/2021 9:49 AM CDT CLL (chronic lymphocytic leukemia) (CMS/HCC) (HCC) LACTATE DEHYDROGENASE STAT 11/09/2021 9:49 AM CDT CLL (chronic lymphocytic leukemia) (CMS/HCC) (HCC) IGG STAT 11/09/2021 9:49 AM CDT CLL (chronic lymphocytic leukemia) (CMS/HCC) (HCC) COMPREHENSIVE METABOLIC PANEL STAT 11/09/2021 9:49 AM CDT CLL (chronic lymphocytic leukemia) (CMS/HCC) (HCC) documented in this encounter Results * eGFR (11/09/2021 9:49 AM CDT) eGFR >90 90 - 130 [...] was last reviewed 2021. Testing performed by: [facility], [address] [place] [phone] Blood 11/09/2021 9:49 AM CDT 11/09/2021 9:50 AM CDT Burt Dos Santos MD PhD LAB BLOOD ORDERABLES Final Result [facility] Department [place] [address] * (ABNORMAL) Differential, auto (11/09/2021 9:49 AM CDT) Neutrophil abs 4.7 1.8 - 6.6 K/cumm [facility] Comment:Testing performed by : [facility], [address] [place] [phone] Lymphocyte abs 5.8(H) 1.2 - 3.3 K/cumm [facility] Comment:Testing performed by : [facility], [address] [place] [phone] Monocyte abs 0.7 0.2 - 1.2 K/cumm [facility] Comment:Testing performed by : [facility], [address] [place] [phone] Eosinophil abs 0.1 0.0 - 0.5 K/cumm [facility] Comment:Testing performed by : [facility], [address] [place] [phone] Basophil abs 0.1 0.0 - 0.2 K/cumm [facility] Comment:Testing performed by : [facility], [address] [place] [phone] Neutrophil pct 41.2 % [facility] CASTRO Comment: Interpretive Data Percent cell count reference ranges are not reported, since discordance with absolute values may lead to misinterpretation of CBC data. Current Interpretive Data was last revised on 2017. Testing performed by: [facility], [address] [place] [phone] Lymphocyte pct 51.0 % [facility] CASTR[facility] Comment: Interpretive Data Percent cell count reference ranges are not reported, since discordance with absolute values may lead to misinterpretation of CBC data. Current Interpretive Data was last revised on 2017. Testing performed by: [facility], [address] [place] [phone] Monocyte pct 6.4 % [facility] CASTRO Comment:Testing performed by : [facility], [address] [place] [phone] Eosinophil pct 0.8 % [facility] CASTRO Comment:Testing performed by : [facility], [address] [place] [phone] Basophil pct 0.6 % [facility] CASTRO Comment:Testing performed by : [facility], [address] [place] [phone] Blood 11/09/2021 9:49 AM CDT 11/09/2021 9:50 AM CDT Burt Dos Santos MD PhD LAB BLOOD ORDERABLES Final Result [facility] Department [place] [address] * (ABNORMAL) CBC with auto differential (11/09/2021 9:49 AM CDT) WBC 11.4(H) 3.8 - 9.8 K/cumm [facility] CASTRO Comment:Testing performed by : [facility], [address] [place] [phone] Hgb 14.6 13.8 - 17.2 g/dL VANESSA BELLA Comment:Testing performed by : [facility], [address] [place] [phone] Hct 42.9 40.7 - 50.3 % [facility]ESSA CASTRO Comment:Testing performed by : [facility], [address] [place] [phone] Plt 154 140 - 440 K/cumm VANESSA CASTRO Comment:Testing performed by : [facility], [address] [place], [place] [phone] MPV 11.8(H) 6.8 - 10.4 fL [facility]SA CASTRO Comment:Testing performed by : [facility], [address] [place], [place] [id number] RBC 4.63 4.50 - 5.70 M/cumm VANESSA CASTRO Comment:Testing performed by : [facility], [address] [place], [place] [id number] MCV 92.6 80.0 - 97.6 fL [facility]ESSA CASTRO Comment:Testing performed by : [facility], [address] [place] [address] MCH 31.6 26.7 - 33.7 pg [facility]ANESSA CASTRO Comment:Testing performed by : [place] [phone] MCHC 34.2 32.7 - 35.5 g/dL [facility]ANESSA CASTRO Comment:Testing performed by : [facility], [address] [place], [place] [id number] RDW CV 15.2(H) 11.8 - 14.6 % [facility]ANESSA CASTRO Comment:Testing performed by : [facility], [address] [place], [place] [id number] NRBC abs 0.01 0.00 - 0.01 K/cumm VANESSA CASTRO Comment:Testing performed by : [place] [phone] Blood 11/09/2021 9:49 AM CDT 11/09/2021 9:50 AM CDT us Burt Dos Santos MD PhD LAB BLOOD ORDERABLES Final Result [facility] CASTR[facility] Department [place] [address] * Comprehensive metabolic panel (11/09/2021 9:49 AM CDT) Sodium 139 135 - 145 mmol/L [facility]ESSA CASTRO Comment:Testing performed by : [facility], [address] [place] [phone] Potassium, pl 4.4 3.3 - 4.9 mmol/L [facility] Comment:Testing performed by : [facility], [address] [place] [phone] Chloride 104 97 - 110 mmol/L [facility] Comment:Testing performed by : [facility], [address] [place] [phone] CO2 27 22 - 32 mmol/L [facility] Comment:Testing performed by : [facility], [address] [place] [phone] Anion gap 8 2 - 15 mmol/L [facility] Comment:Testing performed by : [facility], [address] [place] [phone] BUN 18 8 - 25 mg/dL [facility] Comment:Testing performed by : [facility], [address] [place] [phone] Creatinine 0.87 0.80 - 1.30 mg/dL [facility] Comment:Testing performed by : [facility], [address] [place] [phone] Glucose 160 70 - 199 mg/dL CERNER [...] was last revised 2017. Testing performed by: [facility], [address] [place] [phone] Calcium 9.4 8.5 - 10.3 mg/dL [facility] Comment:Testing performed by : [facility], [address] [place] [phone] Bilirubin, total 0.7 0.1 - 1.2 mg/dL [facility] Comment:Testing performed by : [facility], [address] [place] [phone] Protein, pl 6.7 6.5 - 8.5 g/dL [facility] Comment:Testing performed by : [facility], [address] [place] [phone] Albumin 4.5 3.5 - 5.0 g/dL [facility] Comment:Testing performed by : [facility], [address] [place] [phone] Alk phos 81 40 - 130 Units/L [facility] Comment:Testing performed by : [facility], [address] [place] [phone] ALT 19 7 - 55 Units/L [facility] Comment:Testing performed by : [facility], [address] [place] [phone] AST 17 10 - 50 Units/L [facility] Comment:Testing performed by : [facility], [address] [place] [phone] Blood 11/09/2021 9:49 AM CDT 11/09/2021 9:50 AM CDT Burt Dos Santos MD PhD LAB BLOOD ORDERABLES Final Result Performing Organization Address City/[facility] Co de Phone Number [facility] Department [place] [address] * Lactate dehydrogenase (LD) (11/09/2021 9:49 AM CDT) Lactate dehydrogenase (LDH) 148 100 - 250 Units/L [facility] Comment:Testing performed by : [facility], [address] [place] [phone] Blood 11/09/2021 9:49 AM CDT 11/09/2021 9:50 AM CDT Burt Dos Santos MD PhD LAB BLOOD ORDERABLES Final Result Performing Organization Address City/[facility]/ZIP Co de Phone Number [facility] Department [place] [address] * (ABNORMAL) IgG (11/09/2021 9:49 AM CDT) Immunoglobulin G 687.0(L) 700.0 - 1,600.0 mg/dL VANESSA BELLA Blood 11/09/2021 9:49 AM CDT 11/09/2021 10:19 AM CDT Burt Dos Santos MD PhD LAB BLOOD ORDERABLES Final Result [facility] [place] [address] documented in this encounter Visit Diagnoses Diagnosis CLL (chronic lymphocytic leukemia) (HCC) Chronic lymphoid leukemia, without mention of having achieved remission documented in this encounter Additional Health Concerns Infection Onset Date Last Indicated Resolved Time C. difficile Comment:Backloaded December 21, 2010 09/21/2010 09/21/2010 documented as of this encounter Care Teams Farmworker Bulbs Relationship Specialty Start Date End Date Lenin Ventura MD [address] [address] PCP - General 07/06/16 Lenin Ventura MD [address] [address] 07/06/16 Burt Dos Santos MD PhD [address] [address] Medical Oncologist/Change Lead Medical Oncology 06/16/19 documented as of this encounter
--- OUTSIDE RECORDS SUMMARY | 2024-02-22 08:30 | XMS_ITS | Encounter Summary ---
Author Organization [facility] Address [address] [place] [address] Phone Care Team Providers Care Deputy Manager Name Role Phone Lenin Ventura MD Primary Care Provider [phone] Lenin Ventura MD Unavailable [phone] Burt Dos Santos MD PhD Unavailable [phone] Reason for Visit * Oncology (Routine) - Authorized Specialty Diagnoses / Procedures Referred By Contac t Referred To Contact Oncology Diagnoses CLL (chronic lymphocytic leukemia) (HCC) Procedures ONCBCN ARM DRAW APPT ONC LAB ONLY Burt Dos Santos MD PhD Phone: tel: fax: Burt Dos Santos MD PhD Phone: tel: fax: Referral ID Status Reason Start Date Expiration Date Visits Requested Visits Authorized [id number] Authorized Specialty Services Required 07/03/2019 03/12/2024 99 99 Encounter Details Date Type Department Care Team (Late st Contact Info) Description 02/15/2022 9:00 AM TRAINING AND DEVELOPMENT COORDINATOR Lab [facility] Oncology [facility] 7th [place] [address] [place] [address] CLL (chronic lymphocytic leukemia) (CMS/HCC) (HCC) Social History Tobacco Use Types Packs/Day Years Used Date Smoking Tobacco: Former Smokeless Tobacco: Never Alcohol Use Standard Drinks/Week Comments Not Currently 0 (1 standard drink = 0.6 oz pur e alcohol) Sex and Gender Information Value Date Recorded Sex Assigned at Not on file 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 difficile Comment:Backloaded December 21, 2010 09/21/2010 09/21/2010 documented as of this encounter Care Teams Deputy Manager Relationship Specialty Start Date End Date Lenin Ventura MD [facility] [address] PCP - General 07/06/16 Lenin Ventura MD [facility] [address] [address] 07/06/16 Burt Dos Santos MD PhD [address] [address] Medical Oncologist/Basket Hand Braider Medical Oncology 06/16/19 documented as of this encounter
--- OUTSIDE RECORDS SUMMARY | 2024-02-22 08:31 | XMS_ITS | Encounter Summary ---
Author Organization [facility] Address [address] [place] [address] Phone Care Team Providers Care Gore Stitcher Name Role Phone Lenin Ventura MD Primary Care Provider [phone] Lenin Ventura MD Unavailable [phone] Burt Dos Santos MD PhD Unavailable [phone] Encounter Details Date Type Department Care Team (Late st Contact Info) Description 10/05/2020 Orders Only [facility] Bone Marrow Transplant [address] [facility] 7th Floor, [place] [address] Roberta Watkins RN CLL (chronic lymphocytic leukemia) (CMS/HCC) (HCC) (Primary Dx) Social History Tobacco Use Types Packs/Day Years Used Date Smoking Tobacco: Former Smokeless Tobacco: Never Alcohol Use Standard Drinks/Week Comments Not Currently 0 (1 standard drink = 0.6 oz pur e alcohol) Sex and Gender Information Value Date Recorded Sex Assigned at Not on file Legal Sex Male 9:45 AM R D INTERN Gender Identity Not on file Sexual Orientation Not on file documented as of this encounter Plan of Treatment Not on file documented as of this encounter Results * (ABNORMAL) IgG (11/03/2020 7:19 AM CDT) Immunoglobulin G 572.0(L) 700.0 - 1,600.0 mg/dL [facility] Blood 11/03/2020 7:19 AM CDT 11/03/2020 8:17 AM CDT Burt Dos Santos MD PhD LAB BLOOD ORDERABLES Final Result Performing Organization Address City/[facility]/ZIP Co de Phone Number [facility] Department [place] [address] * Lactate dehydrogenase (LD) (11/03/2020 7:19 AM CDT) [facility] Lactate dehydrogenase (LDH) 182 100 - 250 Units/L [facility] Comment:Testing performed by : [facility], [address] [place] [phone] Blood 11/03/2020 7:19 AM CDT 11/03/2020 7:24 AM CDT Burt Dos Santos MD PhD LAB BLOOD ORDERABLES Final Result Performing Organization Address [facility] de Phone Number [facility] Department [place] [address] * (ABNORMAL) Comprehensive metabolic panel (11/03/2020 7:19 AM CDT) [facility] Sodium 139 135 - 145 mmol/L [facility] Comment:Testing performed by : [facility], [address] [place] [phone] Potassium, pl 4.3 3.3 - 4.9 mmol/L [facility] Comment:Testing performed by : [facility], [address] [place] [phone] Chloride 104 97 - 110 mmol/L [facility] Comment:Testing performed by : [facility], [address] [place] [phone] CO2 28 22 - 32 mmol/L [facility] Comment:Testing performed by : [facility], [address] [place] [phone] Anion gap 8 2 - 15 mmol/L [facility] Comment:Testing performed by : [facility], [address] [place] [phone] BUN 18 8 - 25 mg/dL [facility] Comment:Testing performed by : [facility], [address] [place] [address] Creatinine 0.73(L) 0.80 - 1.30 mg/dL [facility] Comment:Testing performed by : [facility], [address] [place] [address] Glucose 100 70 - 199 mg/dL [facility] [...] was last revised 2017. Testing performed by: [facility], [address] [place], [place] [address] Calcium 9.2 8.5 - 10.3 mg/dL [facility] Comment:Testing performed by : [address] [address] Bilirubin, total 0.5 0.1 - 1.2 mg/dL [facility] Comment:Testing performed by : [address] [address] Protein, pl 6.6 6.5 - 8.5 g/dL [facility] Comment:Testing performed by : [address] [address] Albumin 4.5 3.5 - 5.0 g/dL [facility] Comment:Testing performed by : [address] [address] Alk phos 89 40 - 130 Units/L [facility] Comment:Testing performed by : [place] [id number] ALT 15 7 - 55 Units/L [facility] Comment:Testing performed by : [address] [address] AST 14 10 - 50 Units/L [facility] Comment:Testing performed by : [facility], [address] [place] [address] Blood 11/03/2020 7:19 AM CDT 11/03/2020 7:24 AM CDT Burt Dos Santos MD PhD LAB BLOOD ORDERABLES Final Result [facility] Department [place] [address] * (ABNORMAL) CBC with auto differential (11/03/2020 7:19 AM CDT) WBC 17.5(H) 3.8 - 9.8 K/cumm [facility] Comment:Testing performed by : [address] [address] Hgb 14.3 13.8 - 17.2 g/dL [facility] Comment:Testing performed by : [facility], [address] [place] [address] Hct 42.6 40.7 - 50.3 % [facility] Comment:Testing performed by : [address] [address] Plt 169 140 - 440 K/cumm [facility] Comment:Testing performed by : [address] [address] MPV 11.3(H) 6.8 - 10.4 fL [facility] Comment:Testing performed by : [address] [address] RBC 4.41(L) 4.50 - 5.70 M/cumm [facility] Comment:Testing performed by : [address] [address] MCV 96.7 80.0 - 97.6 fL [facility] Comment:Testing performed by : [address] [address] MCH 32.5 26.7 - 33.7 pg [facility] Comment:Testing performed by : [facility], [address] [place] [address] MCHC 33.6 32.7 - 35.5 g/dL [facility] Comment:Testing performed by : [facility], [address] [place] [address] RDW CV 15.7(H) 11.8 - 14.6 % [facility] Comment:Testing performed by : [facility], [address] [place] [address] NRBC abs 0.02(H) 0.00 - 0.01 K/cumm [facility] Comment:Testing performed by : [facility], [address] [place] [address] Blood 11/03/2020 7:19 AM CDT 11/03/2020 7:24 AM CDT Burt Dos Santos MD PhD LAB BLOOD ORDERABLES Final Result Performing Organization Address City/[facility]/ZIP Co de Phone Number [facility] Department [place] [address] * (ABNORMAL) IgG (10/06/2020 7:13 AM CDT) [facility] Immunoglobulin G 533.0(L) 700.0 - 1,600.0 mg/dL [facility] Blood specimen (specimen) 10/06/2020 7:13 AM CDT 10/06/2020 7:56 AM CDT Burt Dos Santos MD PhD LAB BLOOD ORDERABLES Final Result Performing Organization Address City/[facility]/ZIP Co de Phone Number [facility] [place] [address] * Lactate dehydrogenase (LD) (10/06/2020 7:13 AM CDT) [facility] Lactate dehydrogenase (LDH) 178 100 - 250 Units/L [facility] Comment:Testing performed by : [facility] [address] [address] Blood specimen (specimen) 10/06/2020 7:13 AM CDT 10/06/2020 7:14 AM CDT Burt Dos Santos MD PhD LAB BLOOD ORDERABLES Final Result [facility] Department [place] [address] * (ABNORMAL) Comprehensive metabolic panel (10/06/2020 7:13 AM CDT) Sodium 139 135 - 145 mmol/L [facility] Comment:Testing performed by : [facility], [address] [place] [phone] Potassium, pl 4.8 3.3 - 4.9 mmol/L [facility] Comment:Testing performed by : [facility], [address] [place] [phone] Chloride 104 97 - 110 mmol/L [facility] Comment:Testing performed by : [facility], [address] [place] [address] CO2 31 22 - 32 mmol/L [facility] Comment:Testing performed by : [facility], [address] [place] [phone] Anion gap 4 2 - 15 mmol/L [facility] Comment:Testing performed by : [address] [address] BUN 23 8 - 25 mg/dL [facility] Comment:Testing performed by : [facility], [address] [place] [address] Creatinine 0.78(L) 0.80 - 1.30 mg/dL [facility] Comment:Testing performed by : [address] [address] Glucose 126 70 - 199 mg/dL [facility] Comment: [...] was last revised 2017. Testing performed by: [facility], [address] [place] [address] Calcium 9.7 8.5 - 10.3 mg/dL [facility] Comment:Testing performed by : [facility], [address] [place] [address] Bilirubin, total 0.4 0.1 - 1.2 mg/dL [facility] Comment:Testing performed by : [facility], [address] [place] [address] Protein, pl 6.4(L) 6.5 - 8.5 g/dL [facility] Comment:Testing performed by : [facility], [address] [place] [address] Albumin 4.0 3.5 - 5.0 g/dL [facility] Comment:Testing performed by : [facility], [address] [place] [address] Alk phos 100 40 - 130 Units/L [facility] Comment:Testing performed by : [address] [address] ALT 14 7 - 55 Units/L [facility] Comment:Testing performed by : [facility], [address] [place] [phone] AST 14 10 - 50 Units/L [facility] Comment:Testing performed by : [facility], [address] [place] [address] Blood specimen (specimen) 10/06/2020 7:13 AM CDT 10/06/2020 7:14 AM CDT us Burt Dos Santos MD PhD LAB BLOOD ORDERABLES Final Result [facility] [place] [address] * (ABNORMAL) CBC with auto differential (10/06/2020 7:13 AM CDT) WBC 13.7(H) 3.8 - 9.8 K/cumm [facility] Comment:Testing performed by : [facility], [address] [place], [place] [phone] Hgb 14.0 13.8 - 17.2 g/dL [facility] Comment:Testing performed by : [facility], [address] [place], [place] [phone] Hct 40.6(L) 40.7 - 50.3 % [facility] Comment:Testing performed by : [place] [address] Plt 144 140 - 440 K/cumm [facility] Comment:Testing performed by : [place] [id number] MPV 11.8(H) 6.8 - 10.4 fL [facility] Comment:Testing performed by : [place] [id number] RBC 4.22(L) 4.50 - 5.70 M/cumm [facility] Comment:Testing performed by : [place] [id number] MCV 96.2 80.0 - 97.6 fL [facility] Comment:Testing performed by : [place] [id number] MCH 33.1 26.7 - 33.7 pg [facility] Comment:Testing performed by : [place] [id number] MCHC 34.4 32.7 - 35.5 g/dL [facility] Comment:Testing performed by : [place] [id number] RDW CV 15.8(H) 11.8 - 14.6 % [facility] Comment:Testing performed by : [place] [id number] NRBC abs 0.01 0.00 - 0.01 K/cumm [facility] Comment:Testing performed by : [facility], [address] [place] [phone] Blood specimen (specimen) 10/06/2020 7:13 AM CDT 10/06/2020 7:14 AM CDT Burt Dos Santos MD PhD LAB BLOOD ORDERABLES Final Result [facility] Department [place] [address] documented in this encounter Visit Diagnoses Diagnosis CLL (chronic lymphocytic leukemia) (HCC)- Primary Chronic lymphoid leukemia, without mention of having achieved remission documented in this encounter Additional Health Concerns Infection Onset Date Last Indicated Resolved Time C. difficile Comment:Backloaded December 21, 2010 09/21/2010 09/21/2010 documented as of this encounter Care Teams Gore Stitcher Relationship Specialty Start Date End Date Lenin Ventura MD [email or web address] [address] PCP - General 07/06/16 Lenin Ventura MD [address] [address] 07/06/16 Burt Dos Santos MD PhD [address] [address] Medical Oncologist/Breast Buffer Medical Oncology 06/16/19 documented as of this encounter
--- OUTSIDE RECORDS SUMMARY | 2024-02-22 08:31 | XMS_ITS | Encounter Summary ---
Author Organization [facility] Address [address] [place] [address] Phone Care Team Providers Care Supply Chain Development Manager Name Role Phone Lenin Ventura MD Primary Care Provider [phone] Lenin Ventura MD Unavailable [phone] Burt Dos Santos MD PhD Unavailable [phone] Encounter Details Date Type Department Care Team (Late st Contact Info) Description 01/05/2020 Orders Only [facility] Bone Marrow Transplant [address] [facility] 7th Floor, [place] [address] Burt Dos Santos MD PhD [address] DIV IM BONE MARROW TRANSPLANT, [address] [place], [place] [id number] CLL (chronic lymphocytic leukemia) ([facility]) Social History Tobacco Use Types Packs/Day Years Used Date Smoking Tobacco: Former Smokeless Tobacco: Never Alcohol Use Standard Drinks/Week Comments Not Currently 0 (1 standard drink = 0.6 oz pur e alcohol) Sex and Gender Information Value Date Recorded Sex Assigned at Not on file Legal Sex Male 9:45 AM 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 LAW 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 Gender Identity Not on file Sexual Orientation Not on file documented as of this encounter Ordered Prescriptions Prescription Sig Dispense Quantity Refills Last Filled Start Date End Date ibrutinib (Imbruvica) 420 mg tabletIndications: CLL (chronic lymphocytic leukemia) ([facility]) Take 1 tablet (420 mg total) by mouth daily 90 tablet 3 01/05/2020 01/22/2020 documented in this encounter Plan of Treatment Not on file documented as of this encounter Visit Diagnoses Diagnosis CLL (chronic lymphocytic leukemia) (HCC) Chronic lymphoid leukemia, without mention of having achieved remission documented in this encounter Discontinued Medications Medication Sig Discontinue Reason Start Date End Da te Imbruvica 420 mg tabletIndications:CLL (chronic lymphocytic leukemia) (HCC) TAKE 1 TABLET BY MOUTH ONCE DAILY Reorder 12/29/2019 01/05/2020 documented as of this encounter Additional Health Concerns Infection Onset Date Last Indicated Resolved Time C. difficile Comment:Backloaded December 21, 2010 09/21/2010 09/21/2010 documented as of this encounter Care Teams Supply Chain Development Manager Relationship Specialty Start Date End Date Lenin Ventura MD [email or web address] [address] PCP - General 07/06/16 Lenin Ventura MD [address] [place] [address] 07/06/16 Burt Dos Santos MD PhD [address] [id number] Medical Oncologist/[employer] Tube Bender Medical Oncology 06/16/19 documented as of this encounter
--- OUTSIDE RECORDS SUMMARY | 2024-02-22 08:31 | XMS_ITS | Encounter Summary ---
Author Organization [facility] Address [address] [place] [address] Phone Care Team Providers Care Field Crop Grower Name Role Phone Lenin Ventura MD Primary Care Provider [phone] Lenin Ventura MD Unavailable [phone] Burt Dos Santos MD PhD Unavailable [phone] Reason for Visit * Oncology (Routine) - Authorized Specialty Diagnoses / Procedures Referred By Contac t Referred To Contact Oncology Diagnoses CLL (chronic lymphocytic leukemia) (HCC) Procedures ONCBCN ARM DRAW APPT ONC LAB ONLY Burt Dos Santos MD PhD Phone: tel: fax: Burt Dos Santos MD PhD Phone: tel: fax: Referral ID Status Reason Start Date Expiration Date Visits Requested Visits Authorized [id number] Authorized Specialty Services Required 07/03/2019 03/12/[phone] Encounter Details Date Type Department Care Team (Late st Contact Info) Description 10/06/2020 6:45 AM CDT Lab [facility] Oncology [facility] 7th [place] [address] [place] [address] CLL (chronic lymphocytic leukemia) (CMS/HCC) (HCC) Social History Tobacco Use Types Packs/Day Years Used Date Smoking Tobacco: Former Smokeless Tobacco: Never Alcohol Use Standard Drinks/Week Comments Not Currently 0 (1 standard drink = 0.6 oz pur e alcohol) Sex and Gender Information Value Date Recorded Sex Assigned at Not on file Legal Sex Male 9:45 AM FUR SCRAPER Gender Identity Not on file Sexual Orientation Not on file documented as of this encounter Plan of Treatment Not on file documented as of this encounter Procedures Procedure Name Priority Date/Time Associated Diagnosis Comments EGFR STAT 10/06/2020 7:13 AM CDT CLL (chronic lymphocytic leukemia) (CMS/HCC) (HCC) DIFFERENTIAL AUTO STAT 10/06/2020 7:1 3 AM CDT CLL (chronic lymphocytic leukemia) (CMS/HCC) (HCC) CBC WITH AUTO DIFFERENTIAL STAT 10/06/2020 7:13 AM CDT CLL (chronic lymphocytic leukemia) (CMS/HCC) (HCC) LACTATE DEHYDROGENASE STAT 10/06/2020 7:13 AM CDT CLL (chronic lymphocytic leukemia) (CMS/HCC) (HCC) IGG STAT 10/06/2020 7:13 AM CDT CLL (chronic lymphocytic leukemia) (CMS/HCC) (HCC) COMPREHENSIVE METABOLIC PANEL STAT 10/06/2020 7:13 AM CDT CLL (chronic lymphocytic leukemia) (CMS/HCC) (HCC) documented in this encounter Results * eGFR (10/06/2020 7:13 AM CDT) eGFR >90 90 - 130 mL/min/1.[address] [facility] Comment: Interpretive Data Reference Interval Normal ?>/= 90 mL/min/1.73m2 Mildly decreased* ? 60 - 89 mL/min/1.73m2 Mildly to moderately decreased ?45 - 59 mL/min/1.73m2 Moderately to severely decreased ??30 - 44 mL/min/1.73m2 Severely decreased ?15 - 29 mL/min/1.73m2 Kidney Failure ?< 15 ??mL/min/1.73m2 *Relative to young adult level Estimated glomerular filtration rate is determined by the CKD-EPI equation recommended by the National Kidney Foundation (KDIGO 2012 Clinical Practice Guideline for the Evaluation and Management of Chronic Kidney Disease. Kidney Intnl Suppl Mar 2012;3:1). The CKD-EPI equation should not be used for patients with unstable renal function and has not been validated in children and those over 70. Current interpretive data was last reviewed 2020 Testing performed by: [facility], [address] [place] [phone] Blood specimen (specimen) 10/06/2020 7:13 AM CDT 10/06/2020 7:14 AM CDT Burt Dos Santos MD PhD LAB BLOOD ORDERABLES Final Result [facility] Department [place] [address] * (ABNORMAL) Differential, auto (10/06/2020 7:13 AM CDT) Neutrophil abs 5.7 1.8 - 6.6 K/cumm [facility] Comment:Testing performed by : [facility], [address] [place] [phone] Lymphocyte abs 6.7(H) 1.2 - 3.3 K/cumm [facility] Comment:Testing performed by : [facility], [address] [place] [phone] Monocyte abs 1.1 0.2 - 1.2 K/cumm [facility] Comment:Testing performed by : [facility], [address] [place] [phone] Eosinophil abs 0.2 0.0 - 0.5 K/cumm [facility] Comment:Testing performed by : [facility], [address] [place] [phone] Basophil abs 0.0 0.0 - 0.2 K/cumm [facility] Comment:Testing performed by : [facility], [address] [place] [phone] Neutrophil pct 41.5 % [facility] Comment: Interpretive Data Percent cell count reference ranges are not reported, since discordance with absolute values may lead to misinterpretation of CBC data. Current Interpretive Data was last revised on 2017. Testing performed by: [facility], [address] [place] [phone] Lymphocyte pct 48.5 % [facility] Comment: Interpretive Data Percent cell count reference ranges are not reported, since discordance with absolute values may lead to misinterpretation of CBC data. Current Interpretive Data was last revised on 2017. Testing performed by: [facility], [address] [place] [phone] Monocyte pct 7.9 % [facility] Comment:Testing performed by : [facility], [address] [place] [phone] Eosinophil pct 1.8 % [facility] Comment:Testing performed by : [facility], [address] [place] [phone] Basophil pct 0.3 % [facility] Comment:Testing performed by : [facility], [address] [place] [phone] Blood specimen (specimen) 10/06/2020 7:13 AM CDT 10/06/2020 7:14 AM CDT Burt Dos Santos MD PhD LAB BLOOD ORDERABLES Final Result [facility] Department [place] [address] * (ABNORMAL) CBC with auto differential (10/06/2020 7:13 AM CDT) WBC 13.7(H) 3.8 - 9.8 K/cumm [facility] Comment:Testing performed by : [facility], [address] [place] [phone] Hgb 14.0 13.8 - 17.2 g/dL [facility] Comment:Testing performed by : [facility], [address] [place], [place] [phone] Hct 40.6(L) 40.7 - 50.3 % [facility] Comment:Testing performed by : [facility], [address] [place], [place] [phone] Plt 144 140 - 440 K/cumm [facility] Comment:Testing performed by : [facility], [address] [place], [place] [phone] MPV 11.8(H) 6.8 - 10.4 fL [facility] Comment:Testing performed by : [place] [address] RBC 4.22(L) 4.50 - 5.70 M/cumm [facility] Comment:Testing performed by : [place] [address] MCV 96.2 80.0 - 97.6 fL [facility] Comment:Testing performed by : [facility], [address] [place], [place] [phone] MCH 33.1 26.7 - 33.7 pg [facility] Comment:Testing performed by : [place] [phone] MCHC 34.4 32.7 - 35.5 g/dL [facility] Comment:Testing performed by : [place] [phone] RDW CV 15.8(H) 11.8 - 14.6 % [facility] Comment:Testing performed by : [facility], [address] [place], [place] [phone] NRBC abs 0.01 0.00 - 0.01 K/cumm [facility] Comment:Testing performed by : [place] [address] Blood specimen (specimen) 10/06/2020 7:13 AM CDT 10/06/2020 7:14 AM CDT Burt Dos Santos MD PhD LAB BLOOD ORDERABLES Final Result [facility] Department [place] [address] * (ABNORMAL) Comprehensive metabolic panel (10/06/2020 7:13 AM CDT) Sodium 139 135 - 145 mmol/L [facility] Comment:Testing performed by : [facility], [address] [place] [phone] Potassium, pl 4.8 3.3 - 4.9 mmol/L [facility] Comment:Testing performed by : [facility], [address] [place] [phone] Chloride 104 97 - 110 mmol/L [facility] Comment:Testing performed by : [facility], [address] [place] [phone] CO2 31 22 - 32 mmol/L [facility] Comment:Testing performed by : [facility], [address] [place] [phone] Anion gap 4 2 - 15 mmol/L [facility] Comment:Testing performed by : [facility], [address] [place] [phone] BUN 23 8 - 25 mg/dL [facility] Comment:Testing performed by : [facility], [address] [place] [phone] Creatinine 0.78(L) 0.80 - 1.30 mg/dL [facility] Comment:Testing performed by : [facility], [address] [place] [phone] Glucose 126 70 - 199 mg/dL [facility] Comment: Interpretive Data Fasting glucose [...] was last revised 2017. Testing performed by: [facility], [address] [place] [phone] Calcium 9.7 8.5 - 10.3 mg/dL [facility] Comment:Testing performed by : [facility], [address] [place] [phone] Bilirubin, total 0.4 0.1 - 1.2 mg/dL [facility] Comment:Testing performed by : [facility], [address] [place] [phone] Protein, pl 6.4(L) 6.5 - 8.5 g/dL [facility] Comment:Testing performed by : [facility], [address] [place] [phone] Albumin 4.0 3.5 - 5.0 g/dL [facility] Comment:Testing performed by : [facility], [address] [place] [phone] Alk phos 100 40 - 130 Units/L [facility] Comment:Testing performed by : [facility], [address] [place] [phone] ALT 14 7 - 55 Units/L [facility] Comment:Testing performed by : [facility], [address] [place] [phone] AST 14 10 - 50 Units/L [facility] Comment:Testing performed by : [facility], [address] [place] [phone] Blood specimen (specimen) 10/06/2020 7:13 AM CDT 10/06/2020 7:14 AM CDT us Burt Dos Santos MD PhD LAB BLOOD ORDERABLES Final Result [facility] Department [place] [address] * Lactate dehydrogenase (LD) (10/06/2020 7:13 AM CDT) Lactate dehydrogenase (LDH) 178 100 - 250 Units/L [facility] Comment:Testing performed by : [facility], [address] [place] [phone] Blood specimen (specimen) 10/06/2020 7:13 AM CDT 10/06/2020 7:14 AM CDT Burt Dos Santos MD PhD LAB BLOOD ORDERABLES Final Result Performing Organization Address [facility] Co de Phone Number [facility] Department [place] [address] * (ABNORMAL) IgG (10/06/2020 7:13 AM CDT) Immunoglobulin G 533.0(L) 700.0 - 1,600.0 mg/dL [facility] Blood specimen (specimen) 10/06/2020 7:13 AM CDT 10/06/2020 7:56 AM CDT Burt Dos Santos MD PhD LAB BLOOD ORDERABLES Final Result Performing Organization Address [facility] de Phone Number [facility] [place] [address] documented in this encounter Visit Diagnoses Diagnosis CLL (chronic lymphocytic leukemia) (HCC) Chronic lymphoid leukemia, without mention of having achieved remission documented in this encounter Orders Appointment Requests Count Last Ordered Date Fi rst Ordered Date ONCBCN LAB APPOINTMENT 1 10/06/2020 documented in this encounter Additional Health Concerns Infection Onset Date Last Indicated Resolved Time C. difficile Comment:Backloaded December 21, 2010 09/21/2010 09/21/2010 documented as of this encounter Care Teams Field Crop Grower Relationship Specialty Start Date End Date Lenin Ventura MD [address] [address] PCP - General 07/06/16 Lenin Ventura MD [address] [address] 07/06/16 Burt Dos Santos MD PhD [address] [address] Medical Oncologist/Manager Editorial Medical Oncology 06/16/19 documented as of this encounter
--- OUTSIDE RECORDS SUMMARY | 2024-02-22 08:31 | XMS_ITS | Encounter Summary ---
Author Organization [facility] Address [address] [place] [address] Phone Care Team Providers Care Leg Breaker Name Role Phone Lenin Ventura MD Primary Care Provider [phone] Lenin Ventura MD Unavailable [phone] Burt Dos Santos MD PhD Unavailable [phone] Reason for Visit * Oncology (Routine) - Authorized Specialty Diagnoses / Procedures Referred By Contac t Referred To Contact Oncology Diagnoses CLL (chronic lymphocytic leukemia) (HCC) Procedures ONCBCN ARM DRAW APPT ONC LAB ONLY Burt Dos Santos MD PhD Phone: tel: fax: Burt Dos Santos MD PhD Phone: tel: fax: Referral ID Status Reason Start Date Expiration Date Visits Requested Visits Authorized [id number] Authorized Specialty Services Required 07/03/2019 03/12/2024 99 [phone] Encounter Details Date Type Department Care Team (Late st Contact Info) Description 11/03/2020 6:45 AM CDT Lab [facility] Oncology 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 Gender Identity Not on file Sexual Orientation Not on file documented as of this encounter Plan of Treatment Not on file documented as of this encounter Procedures Procedure Name Priority Date/Time Associated Diagnosis Comments MORPHOLOGIC SCREEN STAT 11/03/2020 7: 19 AM CDT CLL (chronic lymphocytic leukemia) (CMS/HCC) (HCC) EGFR STAT 11/03/2020 7:19 AM CDT CLL (chronic lymphocytic leukemia) (CMS/HCC) (HCC) DIFFERENTIAL AUTO STAT 11/03/2020 7:1 9 AM CDT CLL (chronic lymphocytic leukemia) (CMS/HCC) (HCC) CBC WITH AUTO DIFFERENTIAL STAT 11/03/2020 7:19 AM CDT CLL (chronic lymphocytic leukemia) (CMS/HCC) (HCC) LACTATE DEHYDROGENASE STAT 11/03/2020 7:19 AM CDT CLL (chronic lymphocytic leukemia) (CMS/HCC) (HCC) IGG STAT 11/03/2020 7:19 AM CDT CLL (chronic lymphocytic leukemia) (CMS/HCC) (HCC) COMPREHENSIVE METABOLIC PANEL STAT 11/03/2020 7:19 AM CDT CLL (chronic lymphocytic leukemia) (CMS/HCC) (HCC) documented in this encounter Results * eGFR (11/03/2020 7:19 AM CDT) eGFR >90 90 - 130 mL/min/1.7 3 m2 [facility] Comment: Interpretive Data Reference Interval Normal [...] was last reviewed 2020 Testing performed by: [facility], [address] [place] [phone] Blood 11/03/2020 7:19 AM CDT 11/03/2020 7:24 AM CDT us Burt Dos Santos MD PhD LAB BLOOD ORDERABLES Final Result Performing Organization Address City/[facility]/ZIP Co de Phone Number [facility] [place] [address] * Morphologic screen (11/03/2020 7:19 AM CDT) Morphologic Screen Original results obtained required verification by peripheral smear. [facility] Blood 11/03/2020 7:19 AM CDT 11/03/2020 7:24 AM CDT us Burt Dos Santos MD PhD LAB BLOOD ORDERABLES Final Result Performing Organization Address City/[facility]/ZIP Co de Phone Number [facility] [place] [address] * (ABNORMAL) Differential, auto (11/03/2020 7:19 AM CDT) Neutrophil abs 4.6 1.8 - 6.6 K/cumm [facility] Comment:Testing performed by : [facility], [address] [place] [phone] Lymphocyte abs 11.5(H) 1.2 - 3.3 K/cumm [facility] Comment:Testing performed by : [facility], [address] [place] [phone] Monocyte abs 1.2 0.2 - 1.2 K/cumm [facility] Comment:Testing performed by : [facility], [address] [place] [phone] Eosinophil abs 0.2 0.0 - 0.5 K/cumm [facility] Comment:Testing performed by : [facility], [address] [place] [phone] Basophil abs 0.1 0.0 - 0.2 K/cumm [facility] Comment:Testing performed by : [facility], [address] [place] [phone] Neutrophil pct 26.1 % [facility] Comment: Interpretive Data Percent cell count reference ranges are not reported, since discordance with absolute values may lead to misinterpretation of CBC data. Current Interpretive Data was last revised on 2017. Testing performed by: [facility], [address] [place] [phone] Lymphocyte pct 65.4 % [facility] Comment: Interpretive Data Percent cell count reference ranges are not reported, since discordance with absolute values may lead to misinterpretation of CBC data. Current Interpretive Data was last revised on 2017. Testing performed by: [facility], [address] [place] [phone] Monocyte pct 6.8 % [facility] Comment:Testing performed by : [facility], [address] [place] [phone] Eosinophil pct 1.0 % [facility] Comment:Testing performed by : [facility], [address] [place] [phone] Basophil pct 0.7 % [facility] Comment:Testing performed by : [facility], [address] [place] [phone] Blood 11/03/2020 7:19 AM CDT 11/03/2020 7:24 AM CDT Burt Dos Santos MD PhD LAB BLOOD ORDERABLES Final Result [facility] Department [place] [address] * (ABNORMAL) CBC with auto differential (11/03/2020 7:19 AM CDT) WBC 17.5(H) 3.8 - 9.8 K/cumm [facility] Comment:Testing performed by : [facility], [address] [place] [phone] Hgb 14.3 13.8 - 17.2 g/dL [facility] Comment:Testing performed by : [address] [phone] Hct 42.6 40.7 - 50.3 % [facility] Comment:Testing performed by : [facility], [address] [place] [phone] Plt 169 140 - 440 K/cumm [facility] Comment:Testing performed by : [address] [phone] MPV 11.3(H) 6.8 - 10.4 fL [facility] Comment:Testing performed by : [address] [phone] RBC 4.41(L) 4.50 - 5.70 M/cumm [facility] Comment:Testing performed by : [facility], [address] [place] [phone] MCV 96.7 80.0 - 97.6 fL [facility] Comment:Testing performed by : [address] [phone] MCH 32.5 26.7 - 33.7 pg [facility] Comment:Testing performed by : [address] [address] MCHC 33.6 32.7 - 35.5 g/dL [facility] Comment:Testing performed by : [facility], [address] [place] [phone] RDW CV 15.7(H) 11.8 - 14.6 % [facility] Comment:Testing performed by : [facility], [address] [place] [phone] NRBC abs 0.02(H) 0.00 - 0.01 K/cumm [facility] Comment:Testing performed by : [facility], [address] [place] [phone] Blood 11/03/2020 7:19 AM CDT 11/03/2020 7:24 AM CDT Burt Dos Santos MD PhD LAB BLOOD ORDERABLES Final Result [facility] Department [place] [address] * (ABNORMAL) Comprehensive metabolic panel (11/03/2020 7:19 AM CDT) Sodium 139 135 - 145 mmol/L [facility] Comment:Testing performed by : [facility], [address] [place] [phone] Potassium, pl 4.3 3.3 - 4.9 mmol/L [facility] Comment:Testing performed by : [facility], [address] [place] [phone] Chloride 104 97 - 110 mmol/L [facility] Comment:Testing performed by : [facility], [address] [place] [phone] CO2 28 22 - 32 mmol/L [facility] Comment:Testing performed by : [facility], [address] [place] [phone] Anion gap 8 2 - 15 mmol/L [facility] Comment:Testing performed by : [facility], [address] [place] [phone] BUN 18 8 - 25 mg/dL [facility] Comment:Testing performed by : [facility], [address] [place] [phone] Creatinine 0.73(L) 0.80 - 1.30 mg/dL [facility] Comment:Testing performed by : [facility], [address] [place] [phone] Glucose 100 70 - 199 mg/dL [facility] [...] was last revised 2017. Testing performed by: [place] [phone] Calcium 9.2 8.5 - 10.3 mg/dL [facility] Comment:Testing performed by : [place] [phone] Bilirubin, total 0.5 0.1 - 1.2 mg/dL [facility] Comment:Testing performed by : [place] [phone] Protein, pl 6.6 6.5 - 8.5 g/dL [facility] Comment:Testing performed by : [place] [id number] Albumin 4.5 3.5 - 5.0 g/dL [facility] Comment:Testing performed by : [place] [id number] Alk phos 89 40 - 130 Units/L [facility] Comment:Testing performed by : [place] [phone] ALT 15 7 - 55 Units/L [facility] Comment:Testing performed by : [place] [id number] AST 14 10 - 50 Units/L [facility] Comment:Testing performed by : [place] [phone] Blood 11/03/2020 7:19 AM CDT 11/03/2020 7:24 AM CDT us Burt Dos Santos MD PhD LAB BLOOD ORDERABLES Final Result Performing Organization Address [facility]/ZIP Co de Phone Number [facility] [place] [address] * Lactate dehydrogenase (LD) (11/03/2020 7:19 AM CDT) Pathologist [facility] Lactate dehydrogenase (LDH) 182 100 - 250 Units/L [facility] Comment:Testing performed by : [facility], [address] [place] [phone] Blood 11/03/2020 7:19 AM CDT 11/03/2020 7:24 AM CDT Burt Dos Santos MD PhD LAB BLOOD ORDERABLES Final Result Performing Organization Address [facility]/ZIP Co de Phone Number [facility] [place] [address] * (ABNORMAL) IgG (11/03/2020 7:19 AM CDT) Pathologist [facility] Immunoglobulin G 572.0(L) 700.0 - 1,600.0 mg/dL [facility] Blood 11/03/2020 7:19 AM CDT 11/03/2020 8:17 AM CDT Burt Dos Santos MD PhD LAB BLOOD ORDERABLES Final Result Performing Organization Address City/[facility] [place] [address] documented in this encounter Visit Diagnoses Diagnosis CLL (chronic lymphocytic leukemia) (HCC) Chronic lymphoid leukemia, without mention of having achieved remission documented in this encounter Orders Appointment Requests Count Last Ordered Date Fi rst Ordered Date ONCBCN LAB APPOINTMENT 1 11/03/2020 documented in this encounter Additional Health Concerns Infection Onset Date Last Indicated Resolved Time C. difficile Comment:Backloaded December 21, 2010 09/21/2010 09/21/2010 documented as of this encounter Care Teams Leg Breaker Relationship Specialty Start Date End Date Lenin Ventura MD [address] [address] PCP - General 07/06/16 Lenin Ventura MD [address] [address] 07/06/16 Burt Dos Santos MD PhD [address] [address] Medical Oncologist/Personal Coach Medical Oncology 06/16/19 documented as of this encounter
--- OUTSIDE RECORDS SUMMARY | 2024-02-22 08:31 | XMS_ITS | Encounter Summary ---
Author Organization [facility] Address [address] [place] [address] Phone Care Team Providers Care Director Of Labor Relations Name Role Phone Lenin Ventura MD Primary Care Provider [phone] Lenin Ventura MD Unavailable [phone] Burt Dos Santos MD PhD Unavailable [phone] Reason for Visit * Episode Based Medications (Routine) - Authorized Specialty Diagnoses / Procedures Referred By Contguillermo t Referred To Contact Diagnoses Hypogammaglobulinemia (HCC) Procedures AL GAMUNEX-C/GAMMAKED GAMUNEX Burt Dos Santos MD PhD [address] DIV IM BONE MARROW TRANSPLANT, [address] [place] [address] Phone: tel: fax: [employer] [facility] [employer] [facility] [place] [id number] [facility] Medicine 7th [place] [address] Phone: tel: Referral ID Status Reason Start Date Expiration Date V isits Requested Visits Authorized [id number] Authorized 10/19/2019 08/02/2024 1 38 Encounter Details Date Type Department Care Team (Late st Contact Info) Description 07/07/2020 7:30 AM CDT Infusion [facility] [address] [place] [address] [place] [address] CLL (chronic lymphocytic leukemia) (CMS/HCC) (Primary Dx); Hypogammaglobulinemia (CMS/HCC) Social History Tobacco Use Types Packs/Day Years Used Date Smoking Tobacco: Former Smokeless Tobacco: Never Alcohol Use Standard Drinks/Week Comments Not Currently 0 (1 standard drink = 0.6 oz pur e alcohol) Sex and Gender Information Value Date Recorded Sex Assigned at Not on file 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 Gender Identity Not on file Sexual Orientation Not on file documented as of this encounter Last Filed Vital Signs Vital Sign Reading Time Taken Comments Blood Pressure 115/79 07/07/2020 10:49 AM CDT Pulse 80 07/07/2020 10:49 AM CDT Temperature 36.8 ??C (98.2 ??F) 07/07/2020 1 0:49 AM CDT Respiratory Rate 18 07/07/2020 10:4 9 AM CDT Oxygen Saturation 99% 07/07/2020 10: 49 AM CDT Inhaled Oxygen Concentration - - Weight 128.3 kg (282 lb 13.6 oz) 07/07/2020 7:46 AM CDT Height - - Body Mass Index 36.32 06/09/2020 9:26 AM CDT documented in this encounter Nursing Notes * Amie Beverly, RN - 07/07/2020 7:30 AM CDT Oncology Nursing Note [facility] Jeff Abdullahi is a 69 y.o. male who presents for treatment of IVIG. Pre-treatment Nursing Assessment Nursing Assessment Appetite:: Good Diarrhea:: No Constipation:: No Last BM Date: 07/06/20 Existing Patients: Any falls since your last visit? : No New Patients: Any falls since your last visit? : N/A Fatigue:: Occassional Mouth Sores:: No Nausea/Vomiting:: No Pain:: Yes(generalized arthritis pain-takes ibuprofen PRN that helps) Peripheral Neuropathy: : Yes(intermittent tingling in toes bilaterally) Pt states has potential to be ? : N/A Shortness of Breath?: No Skin Condition/Temp: Warm, Dry, No swelling Oral Mucosa Grade: Normal (0) Swelling:: No Additional Notes: BP: 115/79 Temp: 36.8 ??C (98.2 ??F) Temp src: Oral Pulse: 80 Resp: 18 SpO2: 99 % Weight: 128.3 kg (282 lb 13.6 oz) Pain Score: 2 Treatment Patient: met treatment parameters Pre blood return: Whitney Abdullahi tolerated treatment well. Additional Notes: Denied any questions or concerns. States team will let him know future appointments. Post blood return: Brisk IV access post infusion: NS Patient Education Discharge Plan Discharge instructions given to patient. [...] mg 650 mg, oral, Once, On Paloma 07/07/20 at 0830, For 1 dose, Please give 30 minutes prior to IVIG.Indications:Hypogamm aglobulinemia (HCC) Given 07/07/2020 8:07 AM CDT 650 mg diphenhydrAMINE (BENADRYL) tab/cap 25 mg 25 mg, oral, Once, On [place] 07/07/20 at 0830, For 1 dose, Give 30 minutes prior to IVIG.Indications:Hypogamm aglobulinemia (HCC) Given 07/07/2020 8:07 AM CDT 25 mg immune globulin (GAMUNEX-C,GAMMAKED) 10 % infusion 35 g 35 g (rounded from 32.88 g = 400 mg/kg ? 82.2 kg [place] weight), intravenous, Once, On [place] 07/07/20 at 0830, For 1 dose, GamuNEX C INITIAL Infusion, 30 Minute Titration Patient Weight: 82.2 kg Initiate Infusion at 0.6 mL/kg/hr. If no reaction, may increase rate by 0.6 mL/kg/hr every 30 minutes, to a max of 4.8 mL/kg/hr 0.6 mL/kg/hr = Infuse 25 mL over 30 minutes (Rate = 49 mL/hr) 1.2 mL/kg/hr = Infuse 49 mL over 30 minutes (Rate = 99 mL/hr) 1.8 mL/kg/hr = Infuse 74 mL over 30 minutes (Rate = 148 mL/hr) 2.4 mL/kg/hr = Infuse 99 mL over 30 minutes (Rate = 197 mL/hr) 3.0 mL/kg/hr = Infuse 123 mL over 30 minutes (Rate = 247 mL/hr) 3.6 mL/kg/hr = Infuse 148 mL over 30 minutes (Rate = 296 mL/hr) 4.2 mL/kg/hr = Infuse 173 mL over 30 minutes (Rate = 345 mL/hr) 4.8 mL/kg/hr for remainder (Rate = 395 mL/hr) Administer over: 1 mg/kg/min x 30 minutes, then 2 mg/kg/min x 30 minutes, then 4 mg/kg/min x 30 minutes, then 6 mg/kg/min x 30 minutes, then 8 mg/kg/min until infusion complete. If initial titration was well tolerated, subsequent infusions may be titrated every 15 minutes.Indications:Hypog ammaglobulinemia (HCC) Rate/Dose Change 07/07/2020 10:49 AM CDT 247 mL/hr Rate/Dose Change 07/07/2020 10:15 AM CDT 197 mL /hr Rate/Dose Change 07/07/2020 9:43 AM CDT 148 mL/ hr documented in this encounter Orders Nursing Count Last Ordered Date First Orde red Date ONCBCN NURSING COMMUNICATION [id number] 2 0 07/07/2020 VITAL SIGNS INTRA-INFUSION 1 07/07/2020 Appointment Requests Count Last Ordered Date Fi rst Ordered Date INFUSION APPT REQUEST 300 MIN 1 07/07/2020 documented in this encounter Additional Health Concerns Infection Onset Date Last Indicated Resolved Time C. difficile Comment:Backloaded December 21, 2010 09/21/2010 09/21/2010 documented as of this encounter Care Teams Director Of Labor Relations Relationship Specialty Start Date End Date Lenin Ventura MD [address] [address] PCP - General 07/06/16 Lenin Ventura MD [address] [address] 07/06/16 Burt Dos Santos MD PhD [address] [address] Medical Oncologist/[facility] 06/16/19 documented as of this encounter
--- OUTSIDE RECORDS SUMMARY | 2024-02-22 08:31 | XMS_ITS | Encounter Summary ---
Author Organization formerly [facility] Address [address] [place] [address] Care Team Providers Care Resp Ther Name Role Phone Lenin Ventura MD Primary Care Provider [phone] Lenin Ventura MD Unavailable [phone] Burt Dos Santos MD PhD Unavailable [phone] Reason for Referral * MRI/CAT/PET Scan (Routine) - Closed Specialty Diagnoses / Procedures Referred By Contac t Referred To Contact Radiology Diagnoses CLL (chronic lymphocytic leukemia) (HCC) Procedures CT Chest Abdomen Pelvis W Contrast Burt Dos Santos MD PhD Phone: tel: fax: [address] [address] Referral ID Status Reason Start Date Expiration Date Visits Re quested Visits Authorized [id number] Closed 09/08/2020 10/08/2020 1 1 * MRI/CAT/PET Scan (Routine) - Closed Specialty Diagnoses / Procedures Referred By Contac t Referred To Contact Radiology Diagnoses CLL (chronic lymphocytic leukemia) (HCC) Procedures CT Neck Soft Tissue W Contrast Burt Dos Santos MD PhD Phone: tel: fax: [address] [address] Referral ID Status Reason Start Date Expiration Date Visits Re quested Visits Authorized [id number] Closed 09/08/2020 10/08/2020 1 1 Reason for Visit * MRI/CAT/PET Scan (Routine) - Closed Specialty Diagnoses / Procedures Referred By Contac t Referred To Contact Radiology Diagnoses CLL (chronic lymphocytic leukemia) ([facility]) Procedures CT Chest Abdomen Pelvis W Contrast Burt Dos Santos MD PhD Phone: tel: fax: [address] [address] Referral ID Status Reason Start Date Expiration Date Visits Re quested Visits Authorized [id number] Closed 09/08/2020 10/08/2020 1 1 Encounter Details Date Type Department Care Team (Latest Contact Info) Description 09/08/2020 9:00 AM CDT - 09/08/2020 11:59 PM CDT Hospital Encounter [facility] [address] [place] [id number] Burt Dos Santos MD PhD [address] DIV IM BONE MARROW TRANSPLANT, [address] [place], [place] [id number] CLL (chronic lymphocytic leukemia) ([facility]) Discharge Disposition: Discharge to home or self care Social History Tobacco Use Types Packs/Day Years Used Date Smoking Tobacco: Former Smokeless Tobacco: Never Alcohol Use Standard Drinks/Week Comments Not Currently 0 (1 standard drink = 0.6 oz pur e alcohol) Sex and Gender Information Value Date Recorded Sex Assigned at Not on file 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 Gender Identity Not on file Sexual Orientation [...] 100 mg tabletIndications :CLL (chronic lymphocytic leukemia) ([facility]) 03/14/2020 zinc 50 mg tabletIndications :Zinc deficiency Take 50 mg by mouth daily 30 each 06/25/2019 acyclovir (ZOVIRAX) 200 mg capsuleIndication s:Prophylaxis, Medical Take 2 capsules (400 mg total) by mouth 2 (two) times a day 180 capsule 3 12/02/2019 1 amoxicillin-clavu lanate (AUGMENTIN) 875-125 mg per tablet TK 1 T PO BID 12/03/2019 2 doxycycline 100 mg tabletIndications :CLL (chronic lymphocytic leukemia) ([facility]) Take 100 mg by mouth 2 (two) times a day 04/11/[address] (CYMBALTA) 30 mg capsuleIndication s:CLL (chronic lymphocytic leukemia) ([facility]) Take 30 mg by mouth daily 07/18/2020 2 ibrutinib (Imbruvica) 420 mg tabletIndications :CLL (chronic lymphocytic leukemia) ([facility]) Take 1 tablet (420 mg total) by mouth daily 90 tablet 3 01/22/2020 1 levoFLOXacin (LEVAQUIN) 500 mg tabletIndications :CLL (chronic lymphocytic leukemia) ([facility]) Take 500 mg by mouth daily 08/15/2020 2 documented as of this encounter Discharge Disposition Disposition Code Departure Means Destination Discharge to home or self care documented in this encounter Plan of Treatment Not on file documented as of this encounter Procedures Procedure Name Priority Date/Time Associated Diagnosis Comments CT CHEST ABDOMEN PELVIS W CONTRAST Schedule Routine, Read Routine (OP Routine) 09/08/2020 9:49 AM CDT CLL (chronic lymphocytic leukemia) ([facility]) CT SOFT TISSUE NECK W CONTRAST Schedule Routine, Read Routine (OP Routine) 09/08/2020 9:49 AM CDT CLL (chronic lymphocytic leukemia) (CMS/HCC) POCT CREATININE - DEVICE Routine 09/08/2020 9:21 AM CDT documented in this encounter Results * CT Chest Abdomen Pelvis W Contrast (09/08/2020 9:49 AM CDT) Anatomical Region Laterality Modality Body N/A Computed Tomogra phy 09/08/2020 10:3 0 AM CDT Impressions 09/08/2020 10:30 AM CDT 1. New tiny bilateral nodules, which are indeterminate and may be inflammatory. Attention on follow-up is recommended. 2. ??No substantial change in the burden of lymphadenopathy in keeping with known lymphoma. Dictated by: sEtefany Xiao M.D. The radiology attending physician has personally reviewed this study, and had reviewed and/or edited this written report and agrees with it. Electronically signed by: Adam Nichols M.D. Narrative 09/08/2020 10:30 AM CDT EXAMINATION: ??Computed tomography of the chest, abdomen and pelvis with intravenous contrast HISTORY: CLL on ibrutinib TECHNIQUE: ??Transaxial computed tomographic images of the chest, abdomen and pelvis ??were obtained with intravenous contrast according to the standard protocol after the uneventful administration of 75 mL Opti-Ray 350 intravenous contrast. COMPARISON: 09/17/2019 FINDINGS: ?? Chest: Visualized thyroid is unremarkable. There is no central pulmonary embolus. Heart is normal without pericardial effusion. There is coronary artery calcification. There is new right upper lobe pulmonary nodule measuring 4mm with surrounding groundglass position 140.7. Additional nodule in the left lower lobe measuring 4 mm also new since prior examination (table position 184.7). There is stable subcentimeter subpectoral, mediastinal and hilar lymph nodes. None of which has enlarged or increased in size since prior examination. There is no pneumonic consolidation, pleural effusion or pneumothorax. Central airway is patent. Abdomen/Pelvis: No focal suspicious lesion in the liver. No intrahepatic or intrahepatic biliary ductal dilatation. Calcified granuloma are seen in the spleen. Pancreas is normal. Gallbladder is surgically absent. Both adrenals are normal. Nonobstructing left renal stone is present. Tiny right nonobstructing renal stone is also present. No solid renal lesion. There is no evidence of bowel obstruction. No focal bowel wall thickening. Stomach, duodenum are unremarkable. No free intraperitoneal air or fluid. Redemonstrated are numerous mesenteric lymph nodes with surrounding mesenteric stranding which are similar in size and extent since prior examination. Multiple retroperitoneal, pelvic sidewall inguinal lymph nodes are also similar in size and extent since prior examination. For example a left para-aortic lymph node (table position 550.7) no measures 1.7 cm, previously 1.8 cm. On bone windows, there is no suspicious lytic or blastic lesion. Procedure Note Magdalena, Adam Gómez MD - 09/08/2020 EXAMINATION: Computed tomography of the chest, abdomen and pelvis with intravenous contrast HISTORY: CLL on ibrutinib TECHNIQUE: Transaxial computed tomographic images of the chest, abdomen and pelvis were obtained with intravenous contrast according to the standard protocol after the uneventful administration of 75 mL Opti-Ray 350 intravenous contrast. COMPARISON: 09/17/2019 FINDINGS: Chest: Visualized thyroid is unremarkable. There is no central pulmonary embolus. Heart is normal without pericardial effusion. There is coronary artery calcification. There is new right upper lobe pulmonary nodule measuring 4mm with surrounding groundglass position 140.7. Additional nodule in the left lower lobe measuring 4 mm also new since prior examination (table position 184.7). There is stable subcentimeter subpectoral, mediastinal and hilar lymph nodes. None of which has enlarged or increased in size since prior examination. There is no pneumonic consolidation, pleural effusion or pneumothorax. Central airway is patent. Abdomen/Pelvis: No focal suspicious lesion in the liver. No intrahepatic or intrahepatic biliary ductal dilatation. Calcified granuloma are seen in the spleen. Pancreas is normal. Gallbladder is surgically absent. Both adrenals are normal. Nonobstructing left renal stone is present. Tiny right nonobstructing renal stone is also present. No solid renal lesion. There is no evidence of bowel obstruction. No focal bowel wall thickening. Stomach, duodenum are unremarkable. No free intraperitoneal air or fluid. Redemonstrated are numerous mesenteric lymph nodes with surrounding mesenteric stranding which are similar in size and extent since prior examination. Multiple retroperitoneal, pelvic sidewall inguinal lymph nodes are also similar in size and extent since prior examination. For example a left para-aortic lymph node (table position 550.7) no measures 1.7 cm, previously 1.8 cm. On bone windows, there is no suspicious lytic or blastic lesion. IMPRESSION: 1. New tiny bilateral nodules, which are indeterminate and may be inflammatory. Attention on follow-up is recommended. 2. No substantial change in the burden of lymphadenopathy in keeping with known lymphoma. Dictated by: Estefany Xiao M.D. The radiology attending physician has personally reviewed this study, and had reviewed and/or edited this written report and agrees with it. Electronically signed by: Adam Nichols M.D. Burt Dos Santos MD PhD IMG CT PROCEDURES Fi nal Result * CT Neck Soft Tissue W Contrast (09/08/2020 9:49 AM CDT) Anatomical Region Laterality Modality Head and Neck N/A Computed Tomogra phy 09/08/2020 11:4 9 AM CDT Impressions 09/08/2020 1:48 PM CDT Stable to mild decrease in diffuse lymphadenopathy throughout all cervical mojgan stations. Dictated by: Al Laboy M.D. The radiology attending physician has personally reviewed this study, and had reviewed and/or edited this written report and agrees with it. Electronically signed by: Osmany Johns M.D. Narrative 09/08/2020 1:48 PM CDT EXAMINATION: CT of the neck with contrast HISTORY: 69-year-old man with chronic lymphocytic leukemia. TECHNIQUE: CT of the neck was performed according to standard protocol after the uneventful administration of intravenous contrast. Contrast information: 75 mL Optiray-350 COMPARISON: CT soft tissue neck dated 09/17/2019 FINDINGS: Review of the topogram demonstrates no abnormality. ??Lymphadenopathy is redemonstrated throughout all stations of the bilateral neck. Interval decrease in size of several lymph nodes, for reference a left supraclavicular lymph node (series 3, table position 40) which measures 0.8 mm in short axis, previously 1 cm and a left level 1B lymph node on table position -18 which measures 1.8 x 1.3 cm, unchanged. The muscles of the neck are normal. Vessels of the neck demonstrate normal course and caliber. Fascial planes are preserved and the deep spaces of the neck are normal. The visualized airway is widely patent. The base of the skull and the temporal bones are normal. Limited views of the brain including the cerebellum and brainstem are normal. The limited view of the [place] is unremarkable. The visualized portions of the orbits are normal. The spinal canal is normal in caliber. There is anterior cervical discectomy with instrumented fusion from C5-C6. ??Multilevel degenerative disc disease is also noted throughout the cervical spine, with varying degrees of uncovertebral and facet arthropathy resulting in varying degrees of neuroforaminal stenosis, most severe bilaterally at C3-C4. ??Limited examination of the superior thorax shows no pulmonary infiltrate, suspicious nodules, or pleural effusions. ??Scattered subcentimeter lymph nodes are noted within the superior mediastinum, sub-pectoral regions, and visualized axillae. Diffuse esophageal thickening is unchanged and may be secondary to reflux disease. Procedure Note Osmany Johns MD - 09/08/2020 EXAMINATION: CT of the neck with contrast HISTORY: 69-year-old man with chronic lymphocytic leukemia. TECHNIQUE: CT of the neck was performed according to standard protocol after the uneventful administration of intravenous contrast. Contrast information: 75 mL Optiray-350 COMPARISON: CT soft tissue neck dated 09/17/2019 FINDINGS: Review of the topogram demonstrates no abnormality. Lymphadenopathy is redemonstrated throughout all stations of the bilateral neck. Interval decrease in size of several lymph nodes, for reference a left supraclavicular lymph node (series 3, table position 40) which measures 0.8 mm in short axis, previously 1 cm and a left level 1B lymph node on table position -18 which measures 1.8 x 1.3 cm, unchanged. The muscles of the neck are normal. Vessels of the neck demonstrate normal course and caliber. Fascial planes are preserved and the deep spaces of the neck are normal. The visualized airway is widely patent. The base of the skull and the temporal bones are normal. Limited views of the brain including the cerebellum and brainstem are normal. The limited view of the [place] is unremarkable. The visualized portions of the orbits are normal. The spinal canal is normal in caliber. There is anterior cervical discectomy with instrumented fusion from C5-C6. Multilevel degenerative disc disease is also noted throughout the cervical spine, with varying degrees of uncovertebral and facet arthropathy resulting in varying degrees of neuroforaminal stenosis, most severe bilaterally at C3-C4. Limited examination of the superior thorax shows no pulmonary infiltrate, suspicious nodules, or pleural effusions. Scattered subcentimeter lymph nodes are noted within the superior mediastinum, sub-pectoral regions, and visualized axillae. Diffuse esophageal thickening is unchanged and may be secondary to reflux disease. IMPRESSION: Stable to mild decrease in diffuse lymphadenopathy throughout all cervical mojgan stations. Dictated by: Al Laboy M.D. The radiology attending physician has personally reviewed this study, and had reviewed and/or edited this written report and agrees with it. Electronically signed by: Osmany Johns M.D. Burt Dos Santos MD PhD IMG CT PROCEDURES Fi nal Result * POCT creatinine (09/08/2020 9:21 AM CDT) Creatinine POC 0.8 0.7 - 1.3 mg/dL [facility] Blood specimen (specimen) 09/08/2020 9:21 AM CDT 09/08/2020 9:21 AM CDT Burt Dos Santos MD PhD LAB POCT ORDERABLES - DEVICE Final Result [facility] [place] [address] documented in this encounter Visit Diagnoses Diagnosis CLL (chronic lymphocytic leukemia) (HCC) Chronic lymphoid leukemia, without mention of having achieved remission documented in this encounter Administered Medications Inactive Administered Medications - up to 3 most recent administrations Medication Order MAR Action Action Date Dose Rate Site ioversoL (OPTIRAY 350) syringe syringe 75 mL 75 mL, intravenous, Once in imaging, contrast, Starting on Paloma 09/08/20 at 0933, For 1 dose Contrast Given 09/08/2020 9:40 AM CDT 75 mL ioversoL (OPTIRAY 350) syringe syringe 75 mL 75 mL, intravenous, Once in imaging, contrast, Starting on [place] 09/08/20 at 0939, For 1 dose Contrast Given 09/08/2020 9:40 AM CDT 75 mL documented in this encounter Orders Medications Ordered That Juan ht Not Have Been Administered Count Last Ordered Date First Ordered Date ioversoL (OPTIRAY 350) syrin ge syringe 75 mL 1 09/08/2020 documented in this encounter Additional Health Concerns Infection Onset Date Last Indicated Resolved Time C. difficile Comment:Backloaded December 21, 2010 09/21/2010 09/21/2010 documented as of this encounter Care Teams Resp Ther Relationship Specialty Start Date End Date Lenin Ventura MD [address] [place] [id number] PCP - General 07/06/16 Lenin Ventura MD [address] [place] [address] 07/06/16 Burt Dos Santos MD PhD [address] [place] [id number] Medical Oncologist/Engineering Faculty Medical Oncology 06/16/19 documented as of this encounter
--- OUTSIDE RECORDS SUMMARY | 2024-02-22 08:31 | XMS_ITS | Encounter Summary ---
Author Organization [facility] Address [address] [place] [address] Phone Care Team Providers Care Vehicle Service Agent Name Role Phone Lenin Ventura MD Primary Care Provider [phone] Lenin Ventura MD Unavailable [phone] Burt Dos Santos MD PhD Unavailable [phone] Reason for Visit * Episode Based Medications (Routine) - Authorized Specialty Diagnoses / Procedures Referred By Contguillermo t Referred To Contact Diagnoses Hypogammaglobulinemia (HCC) Procedures [place] GAMUNEX-C/GAMMAKED GAMUNEX Burt Dos Santos MD PhD [address] DIV IM BONE MARROW TRANSPLANT, [address] [place] [address] Phone: tel: fax: [facility] at [facility] and [facility] [address] [facility] 7th [place] [address] Phone: tel: Referral ID Status Reason Start Date Expiration Date V isits Requested Visits Authorized [id number] Authorized 10/19/2019 08/02/2024 1 38 Encounter Details Date Type Department Care Team (Late st Contact Info) Description 11/19/2019 7:30 AM CDT Infusion [facility] Oncology [address] [place] [address] [place] [address] CLL (chronic lymphocytic leukemia) (CMS/HCC) (Primary Dx); Hypogammaglobulinemia (CMS/HCC) Social History Tobacco Use Types Packs/Day Years Used Date Smoking Tobacco: Former Smokeless Tobacco: Never Alcohol Use Standard Drinks/Week Comments Not Currently 0 (1 standard drink = 0.6 oz pur e alcohol) Sex and Gender Information Value Date Recorded Sex Assigned at Not on file 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 Gender Identity Not on file Sexual Orientation Not on file documented as of this encounter Last Filed Vital Signs Vital Sign Reading Time Taken Comments Blood Pressure 129/74 11/19/2019 9:58 AM CDT Pulse 75 11/19/2019 9:58 AM CDT Temperature 36.7 ??C (98.1 ??F) 11/19/2019 9:58 AM CD T Respiratory Rate 18 11/19/2019 9:58 AM CDT Oxygen Saturation 96% 11/19/2019 9:58 AM CDT Inhaled Oxygen Concentration - - Weight 126.1 kg (278 lb) 11/19/2019 7:36 AM CDT Height - - Body Mass Index 33.84 07/31/2019 7:57 AM CDT documented in this encounter Nursing Notes * Keyla Ag - 11/19/2019 7:30 AM CDT Patient tolerated his IVIG infusion well. He has no questions or concerns at this time. He knows when his follow up treatments are scheduled. documented in this encounter Plan of Treatment [...] mg 650 mg, oral, Once, On [place]oma 11/19/19 at 0815, For 1 dose, Please give 30 minutes prior to IVIG.Indications:Hypogamm aglobulinemia (HCC) Given 11/19/2019 7:43 AM CDT 650 mg dextrose 5% infusion 20 mL/hr, intravenous, As needed, As needed- back up fluids for infusions, Starting on Paloma 11/19/19 at 0739Indications:Hypogamma globulinemia (HCC),CLL (chronic lymphocytic leukemia) (HCC) New Bag 11/19/2019 8:17 AM CDT 20 mL/hr 20 mL/hr diphenhydrAMINE (BENADRYL) tab/cap 25 mg 25 mg, oral, Once, On [place] 11/19/19 at 0815, For 1 dose, Give 30 minutes prior to IVIG.Indications:Hypogamm aglobulinemia (HCC) Given 11/19/2019 7:43 AM CDT 25 mg immune globulin (GAMUNEX-C,GAMMAKED) 10 % infusion 35 g 35 g (rounded from 34.72 g = 400 mg/kg ? 86.8 kg [place] weight), intravenous, Once, On [place] 11/19/19 at 0845, For 1 dose, GamuNEX C SUBSEQUENT Infusion, 15 Minute Titration Patient Weight: 86.8 kg Initiate Infusion at 0.6 mL/kg/hr. If no reaction, may increase rate by 0.6 mL/kg/hr every 15 minutes, to a max of 4.8 mL/kg/hr 0.6 mL/kg/hr = Infuse 13 mL over 15 minutes (Rate = 52 mL/hr) 1.2 mL/kg/hr = Infuse 26 mL over 15 minutes (Rate = 104 mL/hr) 1.8 mL/kg/hr = Infuse 39 mL over 15 minutes (Rate = 156 mL/hr) 2.4 mL/kg/hr = Infuse 52 mL over 15 minutes (Rate = 208 mL/hr) 3.0 mL/kg/hr = Infuse 65 mL over 15 minutes (Rate = 260 mL/hr) 3.6 mL/kg/hr = Infuse 78 mL over 15 minutes (Rate = 312 mL/hr) 4.2 mL/kg/hr = Infuse 91 mL over 15 minutes (Rate = 365 mL/hr) 4.8 mL/kg/hr for remainder (Rate = 417 mL/hr) GONZALES Titrations Only: Gamunex Initial: - [...] weight is less than ideal body weight, [facility] pharmacies to adjust doses to use the actual body weight per P&T approved protocol. pharmacies to call prescriber for dose adjustments.Indications:H ypogammaglobulinemia (HCC) Rate/Dose Change 11/19/2019 9:58 AM CDT 364 mL/hr Rate/Dose Change 11/19/2019 9:41 AM CDT 312 mL/ hr Rate/Dose Change 11/19/2019 9:22 AM CDT 260 mL/ hr sodium chloride 0.9% flush 10 mL 10 mL, intravenous, As needed, line care, Starting on Paloma 11/19/19 at 0739, Flush pre and post IV catheter use.Indications:Hypogammaglobulinemia (HCC),CLL (chronic lymphocytic leukemia) (HCC) Given 11/19/2019 8: 17 AM CDT 10 mL documented in this encounter Orders Nursing Count Last Ordered Date First Orde red Date ONCBCN NURSING COMMUNICATION [id number] 2 0 11/19/2019 VITAL SIGNS INTRA-INFUSION 1 11/19/2019 Appointment Requests Count Last Ordered Date Fi rst Ordered Date INFUSION APPT REQUEST 300 MIN 1 11/19/2019 documented in this encounter Additional Health Concerns Infection Onset Date Last Indicated Resolved Time C. difficile Comment:Backloaded December 21, 2010 09/21/2010 09/21/2010 documented as of this encounter Care Teams Vehicle Service Agent Relationship Specialty Start Date End Date Lenin Ventura MD [address] [address] PCP - General 07/06/16 Lenin Ventura MD [address] [address] 07/06/16 Burt Dos Santos MD PhD [address] [address] Medical Oncologist/Water Resource Agent Medical Oncology 06/16/19 documented as of this encounter
--- OUTSIDE RECORDS SUMMARY | 2024-02-22 08:31 | XMS_ITS | Encounter Summary ---
Author Organization [facility] Address [address] [place] [address] Phone Care Team Providers Care Firer Kiln Name Role Phone Lenin Ventura MD Primary Care Provider [phone] Lenin Ventura MD Unavailable [phone] Burt Dos Santos MD PhD Unavailable [phone] Reason for Visit * Reason Comments OP Infusion * Episode Based Medications (Routine) - Authorized Specialty Diagnoses / Procedures Referred By Contac t Referred To Contact Diagnoses Hypogammaglobulinemia (HCC) Procedures [place] GAMUNEX-C/GAMMAKED GAMUNEX Burt Dos Santos MD PhD [address] DIV IM BONE MARROW TRANSPLANT, [address] [place] [address] Phone: tel: fax: [facility] at [facility] and [address] 7th [place] [address] Phone: tel: Referral ID Status Reason Start Date Expiration Date V isits Requested Visits Authorized [id number] Authorized 10/19/2019 08/02/2024 1 38 Encounter Details Date Type Department Care Team (Late st Contact Info) Description 11/03/2020 7:[address] 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 Gender Identity Not on file Sexual Orientation Not on file documented as of this encounter Last Filed Vital Signs Vital Sign Reading Time Taken Comments Blood Pressure 135/75 11/03/2020 10:03 AM CDT Pulse 70 11/03/2020 10:03 AM CDT Temperature 36.9 ??C (98.5 ??F) 11/03/2020 1 0:03 AM CDT Respiratory Rate 18 11/03/2020 10:0 3 AM CDT Oxygen Saturation 98% 11/03/2020 10: 03 AM CDT Inhaled Oxygen Concentration - - Weight 131.8 kg (290 lb 9.1 oz) 11/03/2020 8:42 AM CDT Height - - Body Mass Index 37.31 09/08/2020 10:31 AM CDT documented in this encounter Nursing Notes * Rox Menchaca, RN - 11/03/2020 7:30 AM CDT Oncology Nursing Note [facility] Jeff Abdullahi is a 70 y.o. male who presents for treatment 11 of IVIG. Pre-treatment Nursing Assessment Nursing Assessment Appetite:: Good Diarrhea:: No Constipation:: No Last BM Date: 11/03/20 Existing Patients: Any falls since your last visit? : No New Patients: Any falls since your last visit? : N/A Fatigue:: Occassional Mouth Sores:: No Nausea/Vomiting:: No Pain:: No Peripheral Neuropathy: : Yes (unchanged, mild in feet) Pt states has potential to be ? : N/A Shortness of Breath?: No Skin Condition/Temp: Warm, Dry Swelling:: No BP: 135/75 Temp: 36.9 ??C (98.5 ??F) Pulse: 70 Resp: 18 SpO2: 98 % Weight: 131.8 kg (290 lb 9.1 oz) Treatment Patient: met treatment parameters Pre blood return: Whitney Abdullahi tolerated treatment well. Post blood return: Brisk IV access post infusion: NS Patient Education Treatment Education: Information/teaching given to patient including Symptom management Response: Verbalizes understanding Discharge Plan Discharge instructions [...] mg 650 mg, oral, Once, On [place] 11/03/20 at 0900, For 1 dose, Please give 30 minutes prior to IVIG.Indications:Hypogamm aglobulinemia (HCC) Given 11/03/2020 8:25 AM CDT 650 mg diphenhydrAMINE (BENADRYL) tab/cap 25 mg 25 mg, oral, Once, On [place] 11/03/20 at 0900, For 1 dose, Give 30 minutes prior to IVIG.Indications:Hypogamm aglobulinemia (HCC) Given 11/03/2020 8:26 AM CDT 25 mg immune globulin (GAMUNEX-C,GAMMAKED) 10 % infusion 35 g 35 g (rounded from 32.88 g = 400 mg/kg ? 82.2 kg [place] weight), intravenous, Once, On [place] 11/03/20 at 0900, For 1 dose, Admin Instructions: GamuNEX C SUBSEQUENT Infusion, 15 Minute Titration Patient [place] Weight: 82.2 kg Initiate Infusion at 0.6 mL/kg/hr. ??If no reaction, may increase rate by 0.6 mL/kg/hr every 15 minutes, to a max of 4.8 mL/kg/hr 0.6 mL/kg/hr = Infuse 12 mL over 15 minutes (Rate = 49 mL/hr) 1.2 mL/kg/hr = Infuse 25 mL over 15 minutes (Rate = 99 mL/hr) 1.8 mL/kg/hr = Infuse 37 mL over 15 minutes (Rate = 148 mL/hr) 2.4 mL/kg/hr = Infuse 49 mL over 15 minutes (Rate = 197 mL/hr) 3.0 mL/kg/hr = Infuse 62 mL over 15 minutes (Rate = 247 mL/hr) 3.6 mL/kg/hr = Infuse 74 mL over 15 minutes (Rate = 296 mL/hr) 4.2 mL/kg/hr = Infuse 86 mL over 15 minutes (Rate = 345 mL/hr) 4.8 mL/kg/hr for remainder (Rate = 395 mL/hr) Administer over: 1 mg/kg/min x 30 minutes, then 2 mg/kg/min x 30 minutes, then 4 mg/kg/min x 30 minutes, then 6 mg/kg/min x 30 minutes, then 8 mg/kg/min until infusion complete. If initial titration was well tolerated, subsequent infusions may be titrated every 15 minutes.Indications:Hypog ammaglobulinemia (HCC) Rate/Dose Change 11/03/2020 11:09 AM CDT 395 mL/hr Rate/Dose Change 11/03/2020 10:54 AM CDT 345 mL /hr Rate/Dose Change 11/03/2020 10:36 AM CDT 296 mL /hr documented in this encounter Orders Nursing Count Last Ordered Date First Orde red Date ONCBCN NURSING COMMUNICATION [id number] 2 0 11/03/2020 VITAL SIGNS INTRA-INFUSION 1 11/03/2020 Appointment Requests Count Last Ordered Date Fi rst Ordered Date INFUSION APPT REQUEST 300 MIN 1 11/03/2020 documented in this encounter Additional Health Concerns Infection Onset Date Last Indicated Resolved Time C. difficile Comment:Backloaded December 21, 2010 09/21/2010 09/21/2010 documented as of this encounter Care Teams Firer Kiln Relationship Specialty Start Date End Date Lenin Ventura MD [address] [address] PCP - General 07/06/16 Lenin Ventura MD [address] [address] 07/06/16 Burt Dos Santos MD PhD [address] [address] Medical Oncologist/Supervising Appraiser Medical Oncology 06/16/19 documented as of this encounter
--- OUTSIDE RECORDS SUMMARY | 2024-02-22 08:31 | XMS_ITS | Encounter Summary ---
Author Organization [facility] Address [address] [place] [address] Phone Care Team Providers Care Assistant To The Director Name Role Phone Lenin Ventura MD Primary Care Provider [phone] Lenin Ventura MD Unavailable Burt Dos Santos MD PhD Unavailable [phone] Reason for Visit * Reason Comments Otitis Media pt here for followup . * Consultation (Routine) - Closed Specialty Diagnoses / Procedures Referred By Trent delgado Referred To Contact Otolaryngology Diagnoses Other sinusitis, unspecified chronicity Burt Dos Santos MD PhD Phone: tel: fax: Cass Olivia MD [address] [place] [address] Phone: tel: fax: Referral ID Status Reason Start Date Expiration Date V isits Requested Visits Authorized [id number] Closed Specialty Services Required 06/25/2019 01/03/2021 3 3 Encounter Details Date Type Department Care Team (Late st Contact Info) Description 12/14/2019 10:15 AM CDT Office Visit [facility]) - [facility] ENT [address] [facility] 11th [place] [address] [place] [address] Cass Olivia MD [address] [place] [address] Mixed hearing loss, bilateral (Primary Dx); Mastoiditis of both sides Social History Tobacco Use Types Packs/Day Years Used Date Smoking Tobacco: Former Smokeless Tobacco: Never Alcohol Use Standard Drinks/Week Comments Not Currently 0 (1 standard drink = 0.6 oz pur e alcohol) Sex and Gender Information Value Date Recorded Sex Assigned at Not on file 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 Ventura. Chief Complaint: follow-up Interval: Patient returns for follow-up evaluation with history of bilateral T tubes. He reports he still feels bilateral ear fullness. He denies otorrhea from the tubes. He denies otalgia. His sinus symptoms are well controlled with saline nasal rinses. From previous: HPI: Patient returns for follow-up [...] Medical/Surgical History Past Medical History: Diagnosis Date ??? Anxiety and depression ??? CLL (chronic lymphocytic leukemia) (CMS/HCC) ??? Thyroid nodule 06/12/2019 Past Surgical History: Procedure Laterality Date ??? BIOPSY LYMPH NODE SUPERFICIAL N/A 12/07/2014 ??? CERVICAL SPINE SURGERY [address] Shaquille King at [facility] ??? LAPAROSCOPIC CHOLECYSTECTOMY 2006 Dr. Kingsley[facility] ??? LYMPH NODE BIOPSY 2006 Past Family/Social History Family History Problem Relation Age of Onset ??? Heart disease Father ??? Hypertension Father ??? Diabetes Father ??? Glaucoma Father ??? Atrial fibrillation Father ??? Coronary artery disease Father ??? Macular degeneration Mother ??? Hypertension Mother ??? Anxiety disorder Mother ??? Depression Daughter ??? Depression Son ??? Anxiety disorder Daughter ??? Anxiety disorder Son ??? Colon cancer Other Social History Socioeconomic History ??? Marital status: Spouse name: None ??? Number of children: None ??? Years of education: None ??? Highest education level: None Occupational History ??? None Social Needs ??? Financial resource strain: None ??? Food insecurity Worry: None Inability: None ??? Transportation needs Medical: None Non-medical: None Tobacco Use ??? Smoking status: Former Smoker ??? Smokeless tobacco: Never Used Substance and Sexual Activity ??? Alcohol use: Not Currently ??? Drug use: Never ??? Sexual activity: None Lifestyle ??? Physical activity Days per week: None Minutes per session: None ??? Stress: None Relationships ??? Social connections Talks on phone: None Gets together: None Attends hoahaoism service: None Active member of club or organization: None Attends meetings of clubs or organizations: None Relationship status: None ??? Intimate partner violence Fear of current or ex partner: None Emotionally abused: None Physically abused: None Forced sexual activity: None Other Topics Concern ??? None Social History Narrative Merged History Encounter Medications/Allergies/Immunizations Current Outpatient Medications Medication Sig Dispense Refill ??? acyclovir (ZOVIRAX) 200 mg capsule Take 2 capsules (400 mg total) by mouth 2 (two) times a day 180 capsule 3 ??? ALPRAZolam (XANAX) 0.25 mg tablet Take 0.5-1 tablets by mouth 3 (three) times a day as needed for anxiety ??? amoxicillin-clavulanate (AUGMENTIN) 875-125 mg per tablet TK 1 T PO BID ??? cetirizine (ZyrTEC) 10 mg chewable tablet Take 10 mg by mouth daily ??? cholecalciferol (cholecalciferol) 1000 unit tablet Take 1 tablet (1,000 Units total) by mouth daily 30 tablet 11 ??? cyanocobalamin (Vitamin B-12) 1,000 mcg tablet Take 1 tablet (1,000 mcg total) by mouth daily 30 tablet 11 ??? fluticasone (FLONASE) 50 mcg/actuation nasal spray Administer 2 sprays into each nostril daily ??? Imbruvica 420 mg tablet TAKE 1 TABLET BY MOUTH ONCE DAILY 28 tablet 0 ??? magnesium oxide (MAG-OX) 250 mg (150.8 mg elemental) tablet Take 1 tablet (250 mg total) by mouth daily ??? melatonin 5 mg capsule Take 5 mg by mouth nightly as needed (insomnia) 0 ??? mupirocin (BACTROBAN) 2 % ointment Apply 1 inch of ointment to nasal irrigations 3x's daily 30 g 3 ??? predniSONE (DELTASONE) 50 mg tablet Take 50 mg by mouth daily ??? ranitidine (ZANTAC) 150 mg capsule Take 150 mg by mouth daily ??? zinc 50 mg tablet Take 50 mg by mouth daily 30 each 0 No current facility-administered medications for this visit. Allergies: Cefuroxime and Codeine, Immunizations: Immunization History Administered Date(s) Administered ??? Influenza, Quadrivalent, Cell Culture-based MDCK, Preservative Free, Antibiotic Free, Intramuscular 01/15/2019 ??? Influenza, Trivalent, Intramuscular 01/29/2012 Review of Systems Review of Systems: Pertinent positives in HPI. Intake sheet reviewed covering a full 10-systems review of systems. Physical Exam Vital Signs: Wt 126.1 kg (278 lb) BMI 33.84 kg/m?? GENERAL: Pleasant male, sitting up in NAD, normal appearance and voice. RESPIRATION: Breathing comfortably, no stridor. CV: No clubbing/cyanosis/edema in hands, RRR. HEAD AND FACE: General Inspection reveals no lesions or masses. HEENT: EARS:Examination of the external ears was normal using visual inspection. Otoscopic and/or microscope reveals: Right External auditory canal: normal Tympanic Membrane: T tube removed, dry ear Middle ear: normal Left: External auditory canal: normal Tympanic Membrane: T tube removed, dry ear Middle ear: normal EYES: EOM Intact, sclera anicteric, no conjunctival [...] intact and symmetric. Normal affect. GAIT: Normal. Procedure: Tympanostomy Tube Removal Side: bilateral Procedure: Using the binocular microscope, I inspected the ear canal and the tympanic membrane where a retained tube was noted in the tympanic membrane. After discussing the risks and benefits of eartube removal with the patient including bleeding, infection, and tympanic membrane perforation, I removed the tympanostomy tube using a right angle pick and alligator forceps. The patient tolerated the procedure well. ASSESSMENT/PLAN 68 year old male returns to clinic for evaluation of bilateral mastoiditis and left side hernandez-sinusitis in the setting of CLL treated conservatively with bilateral t-tubes and nasal irrigations. He had done very well since having the T tubes placed and has primarily had bilateral ear fullness since then. We discussed risks and benefits of removal of T tubes including re-occurrence of bilateral otitis media once the myringotomy sites are healed. The patient was in agreement with proceeding with bilateral T-tube removal and this was done in clinic today. I will plan on seeing him back in 2 months with an audiogram to confirm resolution of all of his symptoms. He will maintain dry ear precautions until then. Cass Olivia M.D. Otology and Neurotology Department of Otolaryngology [facility] [email or web address] Office: Clinic: This note was created in part with the assistance of NuORDER voice recognition software. Infantry Indirect Fire Crewmember variances may occur. documented in this encounter Plan of Treatment Not on file documented as of this encounter Visit Diagnoses Diagnosis Mixed hearing loss, bilateral- Primary Mastoiditis of both sides documented in this encounter Historical Medications * This list may reflect changes made after this encounter. amoxicillin-clavul anate (AUGMENTIN) 656-125 mg per tablet TK 1 T PO BID 12/03/2019 02/12/2022 added in this encounter Additional Health Concerns Infection Onset Date Last Indicated Resolved Time C. difficile Comment:Backloaded December 21, 2010 09/21/2010 09/21/2010 documented as of this encounter Care Teams Assistant To The Director Relationship Specialty Start Date End Date Lenin Ventura MD [address] [place] [address] PCP - General 07/06/16 Lenin Ventura MD [address] [place] [address] 07/06/16 Burt Dos Santos MD PhD [address] [place] [address] Medical Oncologist/Bilingual Elementary School Teacher Medical Oncology 06/16/19 documented as of this encounter
--- OUTSIDE RECORDS SUMMARY | 2024-02-22 08:31 | XMS_ITS | Encounter Summary ---
Author Organization [facility] [place] Address [address] [place] [address] Phone Care Team Providers Care Simulation Engineer Name Role Phone Lenin Ventura MD Primary Care Provider [phone] Lenin Ventura MD Unavailable [phone] Burt Dos Santos MD PhD Unavailable [phone] Encounter Details Date Type Department Care Team (Late st Contact Info) Description 03/02/2021 Telephone [facility] Bone Marrow Transplant [address] [facility] 7th Floor, [place] [address] Sal Mauricio Social History Tobacco Use Types Packs/Day Years Used Date Smoking Tobacco: Former Smokeless Tobacco: Never Alcohol Use Standard Drinks/Week Comments Not Currently 0 (1 standard drink = 0.6 oz pur e alcohol) Sex and Gender Information Value Date Recorded Sex Assigned at Not on file 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 difficile Comment:Backloaded December 21, 2010 09/21/2010 09/21/2010 documented as of this encounter Care Teams Simulation Engineer Relationship Specialty Start Date End Date Lenin Ventura MD [address] [address] PCP - General 07/06/16 Lenin Ventura MD [address] [address] 07/06/16 Butr Dos Santos MD PhD [address] [address] Medical Oncologist/Customer Trainer Medical Oncology 06/16/19 documented as of this encounter
--- OUTSIDE RECORDS SUMMARY | 2024-02-22 08:31 | XMS_ITS | Encounter Summary ---
Author Organization [facility] Address [address] [place] [address] Phone Care Team Providers Care Receptionist Telephone Operator Name Role Phone Lenin Ventura MD Primary Care Provider [phone] Lenin Ventura MD Unavailable [phone] Burt Dos Santos MD PhD Unavailable [phone] Encounter Details Date Type Department Care Team (Late st Contact Info) Description 06/16/2020 Telephone [facility] Gastroenterology [address] [facility] 8th [place] [address] [place] [address] Jewels Daniels RN Social History Tobacco Use Types Packs/Day Years Used Date Smoking Tobacco: Former Smokeless Tobacco: Never Alcohol Use Standard Drinks/Week Comments Not Currently 0 (1 standard drink = 0.6 oz pur e alcohol) Sex and Gender Information Value Date Recorded Sex Assigned at Not on file 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 Patient states that he has not had a colonoscopy elsewhere and that he will have to call back to discuss scheduling. Address verified. Letter set to patient with PCP michelle ----- Message from Gabi Pacheco RN sent at 05/11/2019 3:27 PM CDT ----- Regarding: colon 02/2020 Colon 02/2020 documented in this encounter Plan of Treatment Not on file documented as of this encounter Visit Diagnoses Not on filedocumented in this encounter Additional Health Concerns Infection Onset Date Last Indicated Resolved Time C. difficile Comment:Backloaded December 21, 2010 09/21/2010 09/21/2010 documented as of this encounter Care Teams Receptionist Telephone Operator Relationship Specialty Start Date End Date Lenin Ventura MD [address] [place] [address] PCP - General 07/06/16 Lenin Ventura MD [address] [place] [address] 07/06/16 Burt Dos Santos MD PhD [address] [place] [address] Medical Oncologist/Special Forces Medical Sergeant Medical Oncology 06/16/19 documented as of this encounter
--- OUTSIDE RECORDS SUMMARY | 2024-02-22 08:31 | XMS_ITS | Encounter Summary ---
Author Organization [facility] Address [address] [place] [address] Phone Care Team Providers Care Bacteriologist Medical Name Role Phone Lenin Ventura MD Primary Care Provider [phone] Lenin Ventura MD Unavailable [phone] Burt Dos Santos MD PhD Unavailable [phone] Reason for Visit * Reason Onset Date Comments JEANNETTE richmond copay asst 09/19/2020 Encounter Details Date Type Department Care Team (Late st Contact Info) Description 09/19/2020 Documentation [facility] Bone Marrow Transplant [address] [facility] 7th Floor, [place] [address] Yolanda Goel RMA PAN foundation copay asst Social History Tobacco Use Types Packs/Day Years Used Date Smoking Tobacco: Former Smokeless Tobacco: Never Alcohol Use Standard Drinks/Week Comments Not Currently 0 (1 standard drink = 0.6 oz pur e alcohol) Sex and Gender Information Value Date Recorded Sex Assigned at Not on file 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 difficile Comment:Backloaded December 21, 2010 09/21/2010 09/21/2010 documented as of this encounter Care Teams Bacteriologist Medical Relationship Specialty Start Date End Date Lenin Ventura MD [address] [place] [address] PCP - General 07/06/16 Lenin Ventura MD [address] [place] [address] 07/06/16 Burt Dos Santos MD PhD [address] [address] Medical Oncologist/Veneer Taper Medical Oncology 06/16/19 documented as of this encounter
--- OUTSIDE RECORDS SUMMARY | 2024-02-22 08:31 | XMS_ITS | Encounter Summary ---
Author Organization [facility] Address [address] [place] [address] Phone Care Team Providers Care Field Sales Trainer Name Role Phone Lenin Ventura MD Primary Care Provider [phone] Lenin Ventura MD Unavailable [phone] Burt Dos Santos MD PhD Unavailable [phone] Reason for Visit * Episode Based Medications (Routine) - Authorized Specialty Diagnoses / Procedures Referred By Contguillermo t Referred To Contact Diagnoses Hypogammaglobulinemia (HCC) Procedures [place] GAMUNEX-C/GAMMAKED GAMUNEX Burt Dos Santos MD PhD [address] DIV IM BONE MARROW TRANSPLANT[address] [place] [address] Phone: tel: fax: [facility] [place] [address] [facility] 7th [place] [address] Phone: tel: Referral ID Status Reason Start Date Expiration Date V isits Requested Visits Authorized [id number] Authorized 10/19/2019 08/02/2024 1 38 Encounter Details Date Type Department Care Team (Late st Contact Info) Description 12/17/2019 10:30 AM CDT Infusion [facility] Oncology [address] [place] [address] [place] [address] CLL (chronic lymphocytic leukemia) (CMS/HCC) (Primary Dx); Hypogammaglobulinemia (CMS/HCC) Social History Tobacco Use Types Packs/Day Years Used Date Smoking Tobacco: Former Smokeless Tobacco: Never Alcohol Use Standard Drinks/Week Comments Not Currently 0 (1 standard drink = 0.6 oz pur e alcohol) Sex and Gender Information Value Date Recorded Sex Assigned at Not on file Legal Sex Male 9:45 AM 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 No s/s adverse reaction noted. Denies new complaints. Aware of upcoming appointments. Discharged home ambulatory without incident. Stable condition. documented in this encounter Plan of [...] mg 650 mg, oral, Once, On [place]oma 12/17/19 at 1100, For 1 dose, Please give 30 minutes prior to IVIG.Indications:Hypogammaglobu linemia (HCC) Given 12/17/2019 10:39 AM CDT 650 mg diphenhydrAMINE (BENADRYL) tab/cap 25 mg 25 mg, oral, Once, On [place] 12/17/19 at 1100, For 1 dose, Give 30 minutes prior to IVIG.Indications:Hypogammaglobu linemia (HCC) Given 12/17/2019 10:39 AM CDT 25 mg immune globulin (GAMUNEX-C,GAMMAKED) 10 % infusion 35 g 35 g (rounded from 34.72 g = 400 mg/kg ? 86.8 kg [place] weight), intravenous, Once, On [place] 12/17/19 at 1100, For 1 dose, GamuNEX C SUBSEQUENT Infusion, [...] over 15 minutes (Rate = 104 mL/hr) 3 . 1.8 mL/kg/hr = Infuse 39 mL over 15 minutes (Rate = 156 mL/hr) 4 . 2.4 mL/kg/hr = Infuse 52 mL over 15 minutes (Rate = 208 mL/hr) 5 . 3.0 mL/kg/hr = Infuse 65 mL over 15 minutes (Rate = 260 mL/hr) 6 . 3.6 mL/kg/hr = Infuse 78 mL over 15 minutes (Rate = 312 mL/hr) 7 . 4.2 mL/kg/hr = Infuse 91 mL over 15 minutes (Rate = 365 mL/hr) 8 . 4.8 mL/kg/hr for remainder (Rate = 417 mL/hr) If initial titration was well tolerated, subsequent infusions may be titrated every 15 minutes.Indications:Hypogammagl obulinemia (HCC) Rate/Dose Change 12/17/2019 12:55 PM CDT 364 mL/hr Rate/Dose Change 12/17/2019 12:38 PM CDT 312 mL /hr Rate/Dose Change 12/17/2019 12:20 PM CDT 260 mL /hr documented in this encounter Orders Nursing Count Last Ordered Date First Orde red Date ONCBCN NURSING COMMUNICATION [id number] 2 1 VITAL SIGNS INTRA-INFUSION 1 12/17/2019 Appointment Requests Count Last Ordered Date Fi rst Ordered Date INFUSION APPT REQUEST 300 MIN 1 12/17/2019 documented in this encounter Additional Health Concerns Infection Onset Date Last Indicated Resolved Time C. difficile Comment:Backloaded December 21, 2010 09/21/2010 09/21/2010 documented as of this encounter Care Teams Field Sales Trainer Relationship Specialty Start Date End Date Lenin Ventuar MD [address] [address] PCP - General 07/06/16 Lenin Ventuar MD [address] [address] 07/06/16 Burt Dos Santos MD PhD [address] [address] Medical Oncologist/Automotive Engineering Technician Medical Oncology 06/16/19 documented as of this encounter
--- OUTSIDE RECORDS SUMMARY | 2024-02-22 08:31 | XMS_ITS | Encounter Summary ---
Author Organization [facility] Address [address] [place] [address] Phone Care Team Providers Care Chute Tapper Name Role Phone Lenin Ventura MD Primary Care Provider [phone] Lenin Ventura MD Unavailable [phone] Burt Dos Santos MD PhD Unavailable [phone] Encounter Details Date Type Department Care Team (Late st Contact Info) Description 09/17/2019 10:15 AM CDT Office Visit [facility] Transplant [address] [facility] 7th Floor, [place] [address] Burt Dos Santos MD PhD [address] DIV IM BONE MARROW TRANSPLANT[address] [place], [place] [id number] Low testosterone (Primary Dx); CLL (chronic lymphocytic leukemia) (CMS/HCC); Hypogammaglobulinemia (CMS/HCC) Social History Tobacco Use Types Packs/Day Years Used Date Smoking Tobacco: Former Smokeless Tobacco: Never Alcohol Use Standard Drinks/Week Comments Not Currently 0 (1 standard drink = 0.6 oz pur e alcohol) Sex and Gender Information Value Date Recorded Sex Assigned at Not on file Legal Sex Male 9:45 AM RESERVATIONS SALES SUPERVISOR Gender Identity Not on file Sexual Orientation Not on file documented as of this encounter Last Filed Vital Signs Vital Sign Reading Time Taken Comments Blood Pressure 118/71 09/17/2019 9:27 AM CDT Pulse 74 09/17/2019 9:27 AM CDT Temperature 36.9 ??C (98.5 ??F) 09/17/2019 9:27 AM CD T Respiratory Rate 18 09/17/2019 9:27 AM CDT Oxygen Saturation 98% 09/17/2019 9:27 AM CDT Inhaled Oxygen Concentration - - Weight 121.9 kg (268 lb 11.2 oz) 09/17/2019 9:27 AM CDT Height - - Body Mass Index 32.71 07/31/2019 7:57 AM CDT documented in this encounter Patient Instructions * Patient Instructions* Roberta Burnett RN - 09/17/2019 10:15 AM CDT Images from the original note were not included. Burt Dos Santos MD, PhD air support operations operator Magali Stapleton NP Nurse Practitioner Roberta Burnett RN, BSN Transplant Nurse Coordinator Yolanda Goel Bret Film Processing Utility Worker Clinic Locations Every w/ ??? Dr. Dos Santos ??? ASHVIN De [place] ??? ALICIA [facility] 7th Floor of [address] [address] For Appointment Changes ?? please call or [phone] speak with one of the secretaries or Medical Assistants For refills ?? Please call your pharmacy, request in Car reviews, or contact your clinical laboratory medical director at [phone] Call & Leave Your Nurse Coordinator a Message at [phone] for: ??? General Questions ??? Extreme fatigue or weakness ??? New or worsening: o Cough, stuff nose, sore throat, or ear pain o Yellow, green, or brown mucous o Diarrhea (3 or more bowel movements in a day or large amounts of liquid) o Mouth sores o Rash o Area of numbness/tingling Call Immediately for Urgent Issues ??? Fever 101?? F or higher, chills, or shaking o DO NOT take Acetaminophen (Tylenol), Aspirin, or Ibuprofen (Motrin, Advil) unless your doctor tells you to ??? A hard time Breathing o Shortness of breath at rest or after minimal exertion ??? Bleeding from anywhere ??? Confusion ??? Severe headache that won't go away ??? Change in vision ??? Unable to get medications at the pharmacy ??? Unable to keep medicine down o Throwing up or can't swallow ??? Central line gets pulled out, cut, or redness at insertion site Saturday - Saturday, between the hours of 8:00 AM and 5:00 PM ?? Please call or [phone] to page your Nurse Coordinator Saturday - Saturday AFTER 5:00 PM, WEEKENDS & HOLIDAYS ?? CALL THE HOSPITAL SHORT HAUL DRIVER AT [phone] AND ASK TO HAVE THE BMT ON-CALL PROVIDER PAGED. For Family Medical Leave Act (FMLA) Paperwork ?? Please allow up to 10 business days to complete the paperwork ?? For questions, please call [phone] and speak with your Film Processing Utility Worker ?? You can fax the paperwork to [phone] Medical Records ?? This information is protected by HIPAA. Patients or their legal screening representative may obtain copiesof their records, or have copies sent to other facilities by completing a records release while youare in our office. ?? If you aren't onsite, please call [facility] Information Release Services at [phone]. There may be a fee in obtaining medical records for your personal use. Please allow up to 30 days for the request to be processed. If needed sooner, please call [phone] [facility] B[facility] For questions regarding bills, use the appropriate contact information below: ?? [facility] ?? Call [phone] or toll-free [phone] ?? Online bill payment is available. For more information about this service, visit the [facility] website. ?? [email or web address] ?? [facility] ?? Call [phone] or toll-free [phone] ?? Online bill payment is available. For more information about this service, visit the [facility] website. ?? [email or web address] COVID-19 Information: https://www.bjc.org/coronavirus People at Risk for Serious Illness from COVID-19: https://www.cdc.gov/coronavirus/2019-ncov/specific -groups/rgoe-ntny-qzbzqxsocfcvz.html More Resources ??? World Health Organization (WHO): https://www.who.int/emergencies/diseases/mkkvp-wpcdofunxoy-4187 ??? CDC What Do You Need to Know Factsheet: https://www.cdc.gov/coronavirus/2019-ncov/downloads/7633-maaw-uknnhonxg.pdf documented in this encounter Progress Notes * Burt Dos Santos MD PhD - 09/17/2019 10:15 AM CDT BMT Progress Note CLL (chronic lymphocytic leukemia) ([facility]) 07/03/2005 Initial Diagnosis Lymphoma, small lymphocytic; Initial [...] then q2mo x 4; on clinical trial [facility] [id number] --> stable disease on CT; marrow 30-40% invovled 09/01/15 05/29/2018 - Targeted Therapy Imbruvica 420mg daily Subjective Interval History Mr. Abdullahi returns for scheduled follow up. He still has hearing problems, he follows with ENT. His sinus infection has resolved. He is feeling better today. He denies fevers, chills. He has no nausea, vomiting, diarrhea. He has not noticed any new lumps or bumps. He is getting IVIG today. He is quiet today and concerned about COVID-19. Outpatient Encounter Medications as of 09/17/2019: ??? acyclovir (ZOVIRAX) 200 mg capsule, Take 2 capsules by mouth twice daily (Patient taking differently: Take 200 mg by mouth 2 (two) times a day ), Disp: 180 capsule, Rfl: 3 ??? ALPRAZolam (XANAX) 0.25 mg tablet, Take 0.5-1 tablets by mouth 3 (three) times a day as needed for anxiety, Disp: , Rfl: ??? cetirizine (ZyrTEC) 10 mg chewable tablet, Take 10 mg by mouth daily, Disp: , Rfl: ??? cholecalciferol (cholecalciferol) 1000 unit tablet, Take 1 tablet (1,000 Units total) by mouth daily, Disp: 30 tablet, Rfl: 11 ??? cyanocobalamin (Vitamin B-12) 1,000 mcg tablet, Take 1 tablet (1,000 mcg total) by mouth daily,Disp: 30 tablet, Rfl: 11 ??? escitalopram (LEXAPRO) 10 mg tablet, Take 1 tablet by mouth daily, Disp: , Rfl: ??? fluticasone (FLONASE) 50 mcg/actuation nasal spray, Administer 2 sprays into each nostril daily, Disp: , Rfl: ??? Imbruvica 420 mg tablet, TAKE ONE TABLET BY MOUTH ONCE DAILY, Disp: 28 tablet, Rfl: 0 ??? magnesium oxide (MAG-OX) 250 mg (150.8 mg elemental) tablet, Take 1 tablet (250 mg total) by mouth daily, Disp: , Rfl: ??? melatonin 5 mg capsule, Take 5 mg by mouth nightly as needed (insomnia), Disp: , Rfl: 0 ??? mupirocin (BACTROBAN) 2 % ointment, Apply 1 inch of ointment to nasal irrigations 3x's daily, Disp: 30 g, Rfl: 3 ??? predniSONE (DELTASONE) 50 mg tablet, Take 50 mg by mouth daily, Disp: , Rfl: ??? ranitidine (ZANTAC) 150 mg capsule, Take 150 mg by mouth daily , Disp: , Rfl: ??? zinc 50 mg tablet, Take 50 mg by mouth daily, Disp: 30 each, Rfl: 0 ??? [DISCONTINUED] Imbruvica 420 mg tablet, , Disp: , Rfl: ??? [DISCONTINUED] mupirocin (BACTROBAN) 2 % nasal ointment, Mix Neilmed packet with warm sterile water and dissolve 1/2 tube of mupirocin ointment into solution., Disp: 14 g, Rfl: 0 ??? [DISCONTINUED] oxyCODONE-acetaminophen (PERCOCET) 7.5-325 mg per tablet, Take 1 tablet by mouthevery 6 (six) hours as needed for pain, Disp: , Rfl: Facility-Administered Encounter Medications as of 09/17/2019: ??? [COMPLETED] ioversoL (OPTIRAY 350) syringe syringe 100 mL, 100 mL, intravenous, Once in imaging, Magali Stapleton NP, 100 mL at 09/17/19 0801 ??? [COMPLETED] ioversoL (OPTIRAY 350) syringe syringe 50 mL, 50 mL, intravenous, Once in imaging, Magali Stapleton NP, 50 mL at 09/17/19 0806 Performance Status: 1 Objective Vitals: BP: 118/71 Temp: 36.9 ??C (98.5 ??F) Temp src: Oral Pulse: 74 Resp: 18 SpO2: 98 % Weight: 121.9 kg (268 lb 11.2 oz) Physical exam: In no acute distress HEENT:schlera white Lungs:CTA tawny Heart:RRR Abdomen:soft, non-tender Extremities:no edema Skin:no rash Neuro:no focal deficits Nodes: previously palpable sub-mental LAD is now resolved. Lab/Radiology/Diagnostic Review: CBC: Lab Results Component Value Date/Time WBC 16.2 (H) 09/17/2019 08:27 AM WBC 13.7 (H) 04/10/2019 03:03 PM HGB 13.1 (L) 09/17/2019 08:27 AM HGB 14.2 04/10/2019 03:03 PM HCT 38.9 (L) 09/17/2019 08:27 AM HCT 41.2 04/10/2019 03:03 PM LABPLAT 151 09/17/2019 08:27 AM LABPLAT 158 04/10/2019 03:03 PM NEUTROABS 4.3 09/17/2019 08:27 AM NEUTROABS 4,590 04/10/2019 03:03 PM CMP: Lab Results Component Value Date/Time SODIUM 135 09/17/2019 08:27 AM POTASSIUM 5.0 (H) 09/17/2019 08:27 AM CO2 27 09/17/2019 08:27 AM BUNSER 24 09/17/2019 08:27 AM GLUCOSE 105 09/17/2019 08:27 AM CREATININE 0.77 (L) 09/17/2019 08:27 AM CALCIUM 9.4 09/17/2019 08:27 AM CHLORIDE 101 09/17/2019 08:27 AM ALBUMIN 4.5 09/17/2019 08:27 AM AST 20 09/17/2019 08:27 AM ALT 19 09/17/2019 08:27 AM ALKPHOS 67 09/17/2019 08:27 AM BILITOT 0.6 09/17/2019 08:27 AM PROT 6.4 (L) 09/17/2019 08:27 AM ANIONGAP 7 09/17/2019 08:27 AM LDH: Lab Results Component Value Date/Time LDH 241 09/17/2019 08:[address] shows modest improvement from October, representing an ongoing VT. Assessment and Plan: Mr. Abdullahi is a very pleasant 68-year-old gentleman with SLL/CLL who was initially treated with FCR and obtained a 7-year remission. ??He relapsed and was treated on the ALT-803 plus rituximab clinical trial at the 3 mcg/kg dose level. ??His disease was stable, but then showed evidence of PD with enlarging lymph nodes 5 months ago, having a 2 year stabalization. He was initiated on ibrutinib andhas clinical evidence of response. 1.?Small lymphocytic lymphoma (SLL/CLL), recurrent.?He has mild side effects from the ibrutinib, including easy bruising and nail changes, otherwise doing well. He will get IVIG today. ?? 2.?Recurrent sinus infections. We will continue IVIG for 6 months, and will continue to followup with ENT. There has been improvement and resolution of his sinus infections. He has tubes in his ears. ?? 3.?Thyroid nodule.?We will continue to follow this expectantly. ?? As always, the patient knows to contact our office with any questions or concerns in the interim. documented in this encounter Nursing Notes * Roberta Burnett RN - 09/17/2019 10:15 AM CDT SLL with CTs today that showed decrease in LN sizes. Feeling well. IVIG today. Will continue IVIG monthly with labs. ROV In 3 months documented in this encounter Plan of Treatment Not on file documented as of this encounter Visit Diagnoses Diagnosis Low testosterone- Primary CLL (chronic lymphocytic leukemia) (HCC) Chronic lymphoid leukemia, without mention of having achieved remission Hypogammaglobulinemia (HCC) Unspecified hypogammaglobulinemia documented in this encounter Discontinued Medications Medication Sig Discontinue Reason Start Date End Da te escitalopram (LEXAPRO) 10 mg tablet Take 1 tablet by mouth daily Other 05/18/2019 09/17/2019 documented as of this encounter Orders Appointment Requests Count Last Ordered Date Fi rst Ordered Date ONCBCN CLINIC APPOINTMENT REQUEST 1 020 documented in this encounter Additional Health Concerns Infection Onset Date Last Indicated Resolved Time C. difficile Comment:Backloaded December 21, 2010 09/21/2010 09/21/2010 documented as of this encounter Care Teams Chute Tapper Relationship Specialty Start Date End Date Lenin Ventura MD [address] [address] PCP - General 07/06/16 Lenin Ventura MD [address] [address] 07/06/16 Burt Dos Santos MD PhD [address] [address] Medical Oncologist/Slabber Medical Oncology 06/16/19 documented as of this encounter
--- OUTSIDE RECORDS SUMMARY | 2024-02-22 08:31 | XMS_ITS | Encounter Summary ---
Author Organization [facility] Address [address] [place] [address] Phone Care Team Providers Care International Banker Name Role Phone Lenin Ventura MD Primary Care Provider [phone] Lenin Ventura MD Unavailable [phone] Burt Dos Santos MD PhD Unavailable [phone] Reason for Visit * Reason Comments OP Infusion * Episode Based Medications (Routine) - Authorized Specialty Diagnoses / Procedures Referred By Contac t Referred To Contact Diagnoses Hypogammaglobulinemia (HCC) Procedures CA GAMUNEX-C/GAMMAKED GAMUNEX Burt Dos Santos MD PhD [address] DIV IM BONE MARROW TRANSPLANT, [address] [place] [address] Phone: tel: fax: [facility] and [address] 7th [place] [address] Phone: tel: Referral ID Status Reason Start Date Expiration Date V isits Requested Visits Authorized [id number] Authorized 10/19/2019 08/02/2024 1 38 Encounter Details Date Type Department Care Team (Late st Contact Info) Description 12/01/2020 11:[address] 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 Gender Identity Not on file Sexual Orientation Not on file documented as of this encounter Last Filed Vital Signs Vital Sign Reading Time Taken Comments Blood Pressure 131/78 12/01/2020 2:00 PM CDT Pulse 80 12/01/2020 2:00 PM CDT Temperature 36.6 ??C (97.8 ??F) 12/01/2020 1:18 PM CD T Respiratory Rate 18 12/01/2020 2:00 PM CDT Oxygen Saturation 98% 12/01/2020 2:00 PM CDT Inhaled Oxygen Concentration - - Weight - - Height - - Body Mass Index - - documented in this encounter Nursing Notes * Rox Menchaca RN - 12/01/2020 11:00 AM CDT Oncology Nursing Note [facility] Jeff Abdullahi is a 70 y.o. male who presents for treatment 12 of IVIG. Pre-treatment Nursing Assessment Nursing Assessment Appetite:: Good Diarrhea:: No Constipation:: No Last BM Date: 12/01/20 Existing Patients: Any falls since your last visit? : No New Patients: Any falls since your last visit? : N/A Fatigue:: Occassional Mouth Sores:: No Nausea/Vomiting:: No Pain:: No Peripheral Neuropathy: : Yes (unchanged) Pt states has potential to be ? : N/A Shortness of Breath?: No Skin Condition/Temp: Warm, Dry Swelling:: No BP: 131/78 Temp: 36.6 ??C (97.8 ??F) Temp src: Temporal Pulse: 80 Resp: 18 SpO2: 98 % Weight: 130 kg (286 lb 9.6 oz) Treatment Patient: met treatment parameters Pre blood return: Brisk Jeff Abdullahi tolerated treatment well. Post blood return: [...] mg 650 mg, oral, Once, On [place] 12/01/20 at 1215, For 1 dose, Please give 30 minutes prior to IVIG.Indications:Hypogamm aglobulinemia (HCC) Given 12/01/2020 11:39 AM CDT 650 mg diphenhydrAMINE (BENADRYL) tab/cap 25 mg 25 mg, oral, Once, On [place] 12/01/20 at 1215, For 1 dose, Give 30 minutes prior to IVIG.Indications:Hypogamm aglobulinemia (HCC) Given 12/01/2020 11:39 AM CDT 25 mg immune globulin (GAMUNEX-C,GAMMAKED) 10 % infusion 35 g 35 g (rounded from 32.88 g = 400 mg/kg ? 82.2 kg [place] weight), intravenous, Once, On [place] 12/01/20 at 1215, For 1 dose, GamuNEX C SUBSEQUENT Infusion, 15 Minute Titration Patient Weight: 82.2 kg Initiate [...] mL/kg/hr for remainder (Rate = 395 mL/hr) .gamunexsubsequent In accordance with Pharmacy IVIG Titrations Policy Initiate Gamunex at 0.6 mL/kg/hr. If no reaction, may increase rate by 0.6 mL/kg/hr every 15 minutes, to a max of 4.8 mL/kg/hrIndications:Hypog ammaglobulinemia (HCC) Rate/Dose Change 12/01/2020 1:52 PM CDT 345 mL/hr Rate/Dose Change 12/01/2020 1:36 PM CDT 296 mL/ hr Rate/Dose Change 12/01/2020 1:18 PM CDT 247 mL/ hr documented in this encounter Orders Nursing Count Last Ordered Date First Orde red Date ONCBCN NURSING COMMUNICATION [id number] 2 0 12/01/2020 VITAL SIGNS INTRA-INFUSION 1 12/01/2020 Appointment Requests Count Last Ordered Date Fi rst Ordered Date INFUSION APPT REQUEST 300 MIN 1 12/01/2020 documented in this encounter Additional Health Concerns Infection Onset Date Last Indicated Resolved Time C. difficile Comment:Backloaded December 21, 2010 09/21/2010 09/21/2010 documented as of this encounter Care Teams International Banker Relationship Specialty Start Date End Date Lenin Ventura MD [address] [address] PCP - General 07/06/16 Lenin Ventura MD [address] [address] 07/06/16 Burt Dos Santos MD PhD [address] [id number] Medical Oncologist/Studio Receptionist Medical Oncology 06/16/19 documented as of this encounter
--- OUTSIDE RECORDS SUMMARY | 2024-02-22 08:31 | XMS_ITS | Encounter Summary ---
Author Organization [facility] Address [address] [place] [address] Phone Care Team Providers Care Distributor Cleaner Name Role Phone Lenin Ventura MD Primary Care Provider [phone] Lenin Ventura MD Unavailable [phone] Burt Dos Santos MD PhD Unavailable [phone] Encounter Details Date Type Department Care Team (Late st Contact Info) Description 02/06/2021 Orders Only [facility] Bone Marrow Transplant [address] [facility] Advanced Medicine 7th Floor, [place] [address] YoderMagali, BONBON CREAM WARMER [address] DIV IM BONE MARROW TRANSPLANT, [address] [place], [place] [id number] CLL (chronic lymphocytic leukemia) ([facility]/HCC) ([facility]) Social History Tobacco Use Types Packs/Day Years Used Date Smoking Tobacco: Former Smokeless Tobacco: Never Alcohol Use Standard Drinks/Week Comments Not Currently 0 (1 standard drink = 0.6 oz pur e alcohol) Sex and Gender Information Value Date Recorded Sex Assigned at Not on file 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 difficile Comment:Backloaded December 21, 2010 09/21/2010 09/21/2010 documented as of this encounter Care Teams Distributor Cleaner Relationship Specialty Start Date End Date Lenin Ventura MD [id number] [address] PCP - General 07/06/16 Lenin Ventura MD [facility] [id number] [address] 07/06/16 Burt Dos Santos MD PhD [facility] [address] [address] Medical Oncologist/Home Sales Consultant Medical Oncology 06/16/19 documented as of this encounter
--- OUTSIDE RECORDS SUMMARY | 2024-02-22 08:31 | XMS_ITS | Encounter Summary ---
Author Organization [facility] Address [address] [place] [address] Phone Care Team Providers Care Computer Teacher Name Role Phone Lenin Ventura MD Primary Care Provider [phone] Lenin Ventura MD Unavailable [phone] Burt Dos Santos MD PhD Unavailable [phone] Reason for Visit * Oncology (Routine) - Authorized Specialty Diagnoses / Procedures Referred By Contac t Referred To Contact Oncology Diagnoses CLL (chronic lymphocytic leukemia) (HCC) Procedures ONCBCN ARM DRAW APPT ONC LAB ONLY Burt Dos Santos MD PhD Phone: tel: fax: Butr Dos Santos MD PhD Phone: tel: fax: Referral ID Status Reason Start Date Expiration Date Visits Requested Visits Authorized [id number] Authorized Specialty Services Required 07/03/2019 03/12/2024 99 99 Encounter Details Date Type Department Care Team (Late st Contact Info) Description 12/01/2020 9:15 AM CDT Lab [facility] Oncology [address] [facility] 7th [place] [address] [place] [id number] Burt Dos Santos MD PhD [address] DIV IM BONE MARROW TRANSPLANT, [address] [place] [address] CLL (chronic lymphocytic leukemia) (CMS/HCC) (HCC) Discharge Disposition: Discharge to home or self care Social History Tobacco Use Types Packs/Day Years Used Date Smoking Tobacco: Former Smokeless Tobacco: Never Alcohol Use Standard Drinks/Week Comments Not Currently 0 (1 standard drink = 0.6 oz pur e alcohol) Sex and Gender Information Value Date Recorded Sex Assigned at Not on file 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 Gender Identity Not on file Sexual Orientation Not on file documented as of this encounter Discharge Disposition Disposition Code Departure Means Destination Discharge to home or self care documented in this encounter Plan of Treatment Not on file documented as of this encounter Procedures Procedure Name Priority Date/Time Associated Diagnosis Comments EGFR STAT 12/01/2020 9:39 AM CDT CLL (chronic lymphocytic leukemia) (CMS/HCC) (HCC) DIFFERENTIAL AUTO STAT 12/01/2020 9:3 9 AM CDT CLL (chronic lymphocytic leukemia) (CMS/HCC) (HCC) CBC WITH AUTO DIFFERENTIAL STAT 12/01/2020 9:39 AM CDT CLL (chronic lymphocytic leukemia) (CMS/HCC) (HCC) LACTATE DEHYDROGENASE STAT 12/01/2020 9:39 AM CDT CLL (chronic lymphocytic leukemia) (CMS/HCC) (HCC) IGG STAT 12/01/2020 9:39 AM CDT CLL (chronic lymphocytic leukemia) (CMS/HCC) (HCC) COMPREHENSIVE METABOLIC PANEL STAT 12/01/2020 9:39 AM CDT CLL (chronic lymphocytic leukemia) (CMS/HCC) (HCC) documented in this encounter Results * eGFR (12/01/2020 9:39 AM CDT) [facility] eGFR >90 90 - 130 mL/min/1.7 3 m2 [facility] Comment: Interpretive Data Reference Interval Normal [...] was last reviewed 2020 Testing performed by: [facility], [address] [place] [phone] Blood 12/01/2020 9:39 AM CDT 12/01/2020 9:42 AM CDT Burt Dos Santos MD PhD LAB BLOOD ORDERABLES Final Result Performing Organization Address City/State/[facility] Co de Phone Number [facility] Department of Laboratories [place], [place] [id number] * (ABNORMAL) Differential, auto (12/01/2020 9:39 AM CDT) Neutrophil abs 5.9 1.8 - 6.6 K/cumm [facility] Comment:Testing performed by : [facility], [address] [place] [phone] Lymphocyte abs 6.8(H) 1.2 - 3.3 K/cumm [facility] Comment:Testing performed by : [facility], [address] [place] [phone] Monocyte abs 0.9 0.2 - 1.2 K/cumm [facility] Comment:Testing performed by : [facility], [address] [place] [phone] Eosinophil abs 0.1 0.0 - 0.5 K/cumm [facility] Comment:Testing performed by : [facility], [address] [place] [phone] Basophil abs 0.1 0.0 - 0.2 K/cumm [facility] Comment:Testing performed by : [facility], [address] [place] [phone] Neutrophil pct 42.7 % [facility] Comment: Interpretive Data Percent cell count reference ranges are not reported, since discordance with absolute values may lead to misinterpretation of CBC data. Current Interpretive Data was last revised on 2017. Testing performed by: [facility], [address] [place] [phone] Lymphocyte pct 49.4 % [facility] Comment: Interpretive Data Percent cell count reference ranges are not reported, since discordance with absolute values may lead to misinterpretation of CBC data. Current Interpretive Data was last revised on 2017. Testing performed by: [facility], [address] [place] [phone] Monocyte pct 6.5 % [facility] Comment:Testing performed by : [facility], [address] [place] [phone] Eosinophil pct 0.8 % [facility] Comment:Testing performed by : [facility], [address] [place] [phone] Basophil pct 0.6 % [facility] Comment:Testing performed by : [facility], [address] [place] [phone] Blood 12/01/2020 9:39 AM CDT 12/01/2020 9:42 AM CDT Burt Dos Santos MD PhD LAB BLOOD ORDERABLES Final Result [facility] [place] [address] * (ABNORMAL) CBC with auto differential (12/01/2020 9:39 AM CDT) [facility] Signature WBC 13.7(H) 3.8 - 9.8 K/cumm [facility] Comment:Testing performed by : [facility], [address] [place], [place] [phone] Hgb 14.2 13.8 - 17.2 g/dL [facility] Comment:Testing performed by : [facility], [address] [place], [place] [phone] Hct 41.4 40.7 - 50.3 % [facility] Comment:Testing performed by : [facility], [address] [place], [place] [phone] Plt 144 140 - 440 K/cumm [facility] Comment:Testing performed by : [place] [phone] MPV 11.0(H) 6.8 - 10.4 fL [facility] Comment:Testing performed by : [place] [phone] RBC 4.30(L) 4.50 - 5.70 M/cumm [facility] Comment:Testing performed by : [facility], [address] [place], [place] [phone] MCV 96.4 80.0 - 97.6 fL [facility] Comment:Testing performed by : [place] [phone] MCH 33.1 26.7 - 33.7 pg [facility] Comment:Testing performed by : [place] [phone] MCHC 34.3 32.7 - 35.5 g/dL [facility] Comment:Testing performed by : [place] [phone] RDW CV 16.2(H) 11.8 - 14.6 % [facility] Comment:Testing performed by : [place] [phone] NRBC abs 0.02(H) 0.00 - 0.01 K/cumm [facility] Comment:Testing performed by : [facility], [address], [place] [address] Blood 12/01/2020 9:39 AM CDT 12/01/2020 9:42 AM CDT Burt Dos Santos MD PhD LAB BLOOD ORDERABLES Final Result [facility] Department [place] [address] * (ABNORMAL) Comprehensive metabolic panel (12/01/2020 9:39 AM CDT) Sodium 139 135 - 145 mmol/L [facility] Comment:Testing performed by : [facility], [address] [place] [phone] Potassium, pl 4.7 3.3 - 4.9 mmol/L [facility] Comment:Testing performed by : [address] [phone] Chloride 103 97 - 110 mmol/L [facility] Comment:Testing performed by : [facility], [address] [place] [phone] CO2 29 22 - 32 mmol/L [facility] Comment:Testing performed by : [address] [phone] Anion gap 7 2 - 15 mmol/L [facility] Comment:Testing performed by : [address] [phone] BUN 18 8 - 25 mg/dL [facility] Comment:Testing performed by : [facility], [address] [place] [phone] Creatinine 0.78(L) 0.80 - 1.30 mg/dL [facility] Comment:Testing performed by : [address] [phone] Glucose 174 70 - 199 mg/dL [facility] Comment: Interpretive Data Fasting glucose >/= [...] was last revised 2017. Testing performed by: [facility], [address] [place] [phone] Calcium 9.4 8.5 - 10.3 mg/dL [facility] Comment:Testing performed by : [facility], [address] [place] [phone] Bilirubin, total 0.6 0.1 - 1.2 mg/dL [facility] Comment:Testing performed by : [address] [phone] Protein, pl 6.5 6.5 - 8.5 g/dL [facility] Comment:Testing performed by : [address] [phone] Albumin 4.3 3.5 - 5.0 g/dL [facility] Comment:Testing performed by : [facility], [address] [place] [phone] Alk phos 74 40 - 130 Units/L [facility] Comment:Testing performed by : [address] [phone] ALT 15 7 - 55 Units/L [facility] Comment:Testing performed by : [address] [phone] AST 14 10 - 50 Units/L [facility] Comment:Testing performed by : [facility], [address] [place] [phone] Blood 12/01/2020 9:39 AM CDT 12/01/2020 9:42 AM CDT us Burt Dos Santos MD PhD LAB BLOOD ORDERABLES Final Result [facility] Department [place] [address] * Lactate dehydrogenase (LD) (12/01/2020 9:39 AM CDT) Lactate dehydrogenase (LDH) 178 100 - 250 Units/L [facility] Comment:Testing performed by : [facility], [address] [place] [phone] Blood 12/01/2020 9:39 AM CDT 12/01/2020 9:42 AM CDT Burt Dos Santos MD PhD LAB BLOOD ORDERABLES Final Result Performing Organization Address [facility] Co de Phone Number [facility] [place] [address] * (ABNORMAL) IgG (12/01/2020 9:39 AM CDT) Pathologist [facility] Immunoglobulin G 623.0(L) 700.0 - 1,600.0 mg/dL [facility] Blood 12/01/2020 9:39 AM CDT 12/01/2020 10:28 AM CDT us Burt Dos Santos MD PhD LAB BLOOD ORDERABLES Final Result Performing Organization Address [facility] Co de Phone Number [facility] [place] [address] documented in this encounter Visit Diagnoses Diagnosis CLL (chronic lymphocytic leukemia) (HCC) Chronic lymphoid leukemia, without mention of having achieved remission documented in this encounter Orders Appointment Requests Count Last Ordered Date Fi rst Ordered Date ONCBCN LAB APPOINTMENT 1 12/01/2020 documented in this encounter Additional Health Concerns Infection Onset Date Last Indicated Resolved Time C. difficile Comment:Backloaded December 21, 2010 09/21/2010 09/21/2010 documented as of this encounter Care Teams Computer Teacher Relationship Specialty Start Date End Date Lenin Ventura MD [address] [address] PCP - General 07/06/16 Lenin Ventura MD [address] [address] 07/06/16 Burt Dos Santos MD PhD [address] [address] Medical Oncologist/Sound Controller Medical Oncology 06/16/19 documented as of this encounter
--- OUTSIDE RECORDS SUMMARY | 2024-02-22 08:31 | XMS_ITS | Encounter Summary ---
Author Organization [facility] Address [address] [place] [address] Phone Care Team Providers Care Manager Operating Name Role Phone Lenin Ventura MD Primary Care Provider [phone] Lenin Ventura MD Unavailable [phone] Burt Dos Santos MD PhD Unavailable [phone] Encounter Details Date Type Department Care Team (Late st Contact Info) Description 12/17/2019 9:30 AM CDT Office Visit [facility] Bone Marrow Transplant [address] Advanced Medicine 7th Floor, [place] [address] Burt Dos Santos MD PhD [address] IM BONE MARROW TRANSPLANT[address] [place] [address] CLL (chronic lymphocytic leukemia) (CMS/HCC); Hypogammaglobulinemia ([facility]/HCC) Social History Tobacco Use Types Packs/Day Years Used Date Smoking Tobacco: Former Smokeless Tobacco: Never Alcohol Use Standard Drinks/Week Comments Not Currently 0 (1 standard drink = 0.6 oz pur e alcohol) Sex and Gender Information Value Date Recorded Sex Assigned at Not on file 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 Gender Identity Not on file Sexual Orientation Not on file documented as of this encounter Last Filed Vital Signs Vital Sign Reading Time Taken Comments Blood Pressure 123/74 12/17/2019 9:02 AM CDT Pulse 79 12/17/2019 9:02 AM CDT Temperature 36.7 ??C (98.1 ??F) 12/17/2019 9:02 AM CD T Respiratory Rate 18 12/17/2019 9:02 AM CDT Oxygen Saturation 96% 12/17/2019 9:02 AM CDT Inhaled Oxygen Concentration - - Weight 124.5 kg (274 lb 6.4 oz) 12/17/2019 9:02 AM CDT Height - - Body Mass Index 33.4 07/31/2019 7:57 AM CDT documented in this encounter Patient Instructions * Patient Instructions* Roberta Burnett RN - 12/17/2019 9:30 AM CDT Burt Dos Santos MD, PhD ladies suit operator Ruddy Stapleton NP Nurse Practitioner Roberta Burnett RN, BSN Transplant Nurse Coordinator DAKOTAH Rodriguez Child Care Director Clinic Locations Every w/ ??? Dr. Dos Santos ??? ASHVIN De Los Santos ??? ALICIA Granados [facility] 7th Floor of [address] [address] For Appointment Changes ?? please call or [phone] speak with one of the secretaries or Medical Assistants For refills ?? Please call your pharmacy, request in [place], or contact your medical administrator at [phone] Call & Leave Your Nurse Coordinator a Message at [phone] for: ??? General Questions ??? Extreme fatigue [...] and 5:00 PM ?? Please call or [phone] to page your Nurse Coordinator Saturday - Saturday AFTER 5:00 PM, WEEKENDS & HOLIDAYS ?? CALL THE HOSPITAL PRODUCTION REPRODUCTION MANAGER AT [phone] AND ASK TO HAVE THE BMT ON-CALL PROVIDER PAGED. For Family Medical Leave Act (FMLA) Paperwork ?? Please allow up to 10 business days to complete the paperwork ?? For questions, please call [phone] and speak with your Child Care Director ?? You can fax the paperwork to [phone] Medical Records ?? This information is protected by HIPAA. Patients or their legal claim representative may obtain copiesof their records, or have copies sent to other facilities by completing a records release while youare in our office. ?? If you aren't onsite, please call [facility] Information Release Services at [phone]. There may be a fee in obtaining medical records for your personal use. Please allow up to 30 days for the request to be processed. If needed sooner, please call [phone] [facility] B[facility] For questions regarding bills, use the appropriate contact information below: ?? [facility] ?? Call [phone] or toll-free [phone] ?? Online bill payment is available. For more information about this service, visit the [facility] website. ?? [email or web address] ?? [facility] ?? Call [phone] or toll-free [phone] ?? Online bill payment is available. For more information about this service, visit the [facility] website. ?? [email or web address] documented in this encounter Progress Notes * Burt Dos Santos MD PhD - 12/17/2019 9:30 AM CDT BMT Progress Note Oncology History CLL (chronic lymphocytic leukemia) ([facility]) 07/03/2005 Initial Diagnosis Lymphoma, small lymphocytic; Initial [...] then q2mo x 4; on clinical trial [facility] [id number] --> stable disease on CT; marrow 30-40% invovled 09/01/15 05/29/2018 - Targeted Therapy Imbruvica 420mg daily 09/17/[address] Neck - Diffuse lymphadenopathy throughout all cervical mojgan stations, which is slightly improved since 10/09/2018. CT CAP- No substantial change in burden of mediastinal, abdominal & pelvic lymphadenopathy in keeping with patient's known lymphoma. Subjective Interval History Mr. Abdullahi returns for scheduled follow up. He still has hearing problems, he follows with ENT. His sinus infection has resolved, he completed augmentin and 20 mg pred x 7 days about 1 week ago. He is feeling better today. He denies fevers, chills. He has no nausea, vomiting, diarrhea. He has not noticed any new lumps or bumps. He is getting IVIG today. Outpatient Encounter Medications as of 12/17/2019: ??? acyclovir (ZOVIRAX) 200 mg capsule, Take [...] mouth daily,Disp: 30 tablet, Rfl: 11 ??? fluticasone (FLONASE) 50 mcg/actuation nasal spray, Administer 2 sprays into each nostril daily, Disp: , Rfl: ??? Imbruvica 420 mg tablet, TAKE 1 TABLET BY MOUTH ONCE DAILY, Disp: 28 [...] Disp: 30 each, Rfl: 0 ??? [DISCONTINUED] acyclovir (ZOVIRAX) 200 mg capsule, Take 2 capsules by mouth twice daily (Patient taking differently: Take 200 mg by mouth 2 (two) times a day ), Disp: 180 capsule, Rfl: 3 ??? [DISCONTINUED] acyclovir (ZOVIRAX) 200 mg capsule, Take 1 capsule (200 mg total) by mouth 2 (two) times a day, Disp: 180 capsule, Rfl: 3 ??? [DISCONTINUED] Imbruvica 420 mg tablet, TAKE 1 TABLET BY MOUTH ONCE DAILY, Disp: 28 tablet, Rfl: 0 Performance Status: 1 Objective Vitals: BP: 123/74 Temp: 36.7 ??C (98.1 ??F) Temp src: Oral Pulse: 79 Resp: 18 SpO2: 96 % Weight: 124.5 kg (274 lb 6.4 oz) Physical exam: In no acute distress HEENT:schlera white Lungs:CTA tawny Heart:RRR Abdomen:soft, non-tender Extremities:no edema Skin:no rash Neuro:no focal deficits Nodes: previously palpable sub-mental LAD is now resolved. Lab/Radiology/Diagnostic Review: CBC: Lab Results Component Value Date/Time WBC 19.9 (H) 12/17/2019 08:50 AM WBC 13.7 (H) 04/10/2019 03:03 PM HGB 14.3 12/17/2019 08:50 AM HGB 14.2 04/10/2019 03:03 PM HCT 41.8 12/17/2019 08:50 AM HCT 41.2 04/10/2019 03:03 PM LABPLAT 133 (L) 12/17/2019 08:50 AM LABPLAT 158 04/10/2019 03:03 PM NEUTROABS 3.8 11/19/2019 07:04 AM NEUTROABS 4,590 04/10/2019 03:03 PM CMP: Lab Results Component Value Date/Time SODIUM 139 11/19/2019 07:04 AM POTASSIUM 4.5 11/19/2019 07:04 AM CO2 28 11/19/2019 07:04 AM BUNSER 21 11/19/2019 07:04 AM GLUCOSE 113 11/19/2019 07:04 AM CREATININE 0.71 (L) 11/19/2019 07:04 AM CALCIUM 8.8 11/19/2019 07:04 AM CHLORIDE 106 11/19/2019 07:04 AM ALBUMIN 4.4 11/19/2019 07:04 AM AST 13 11/19/2019 07:04 AM ALT 15 11/19/2019 07:04 AM ALKPHOS 80 11/19/2019 07:04 AM BILITOT 0.4 11/19/2019 07:04 AM PROT 6.2 (L) 11/19/2019 07:04 AM ANIONGAP 5 11/19/2019 07:04 AM LDH: Lab Results Component Value Date/Time LDH 179 10/22/2019 06:[address] shows modest improvement from October, representing an ongoing IN. Assessment and Plan: Mr. Abdullahi is a very pleasant 69-year-old gentleman with SLL/CLL who was initially treated with FCR and obtained a 7-year remission. ??He relapsed and was treated on the ALT-803 plus rituximab clinical trial at the 3 mcg/kg dose level. ??His disease was stable, but then showed evidence of PD with enlarging lymph nodes after 2 year stabalization. He was initiated on ibrutinib and has clinical evidence of response, with ibrutinib initiated in early 2019. 1.?Small lymphocytic lymphoma (SLL/CLL), recurrent.?He has no new side effects from the ibrutinib, otherwise doing well. He will get IVIG today, and we will monitor for now. Will RTC in 3 months, and will call if any new infections arise. ?? 2.?Recurrent sinus infections. We will continue IVIG for 6 months, and will continue to followup with ENT. There has been improvement and resolution of his sinus infections. He has tubes in his ears that were recently removed. IgG 600-700. ?? 3.?Thyroid nodule.?We will continue to follow this expectantly. ?? As always, the patient knows to contact our office with any questions or concerns in the interim. documented in this encounter Nursing Notes * Roberta Burnett RN - 12/17/2019 9:30 AM CDT CLL patient on imbruvica. Tubes in his ears were taken out. He's feeling well overall. IgG last month was 663. We will do IVIG today and it will be the last one for a while. If his IgG drifts down orhe gets recurrent sinus infections we will reinstate IVIG. He will get a hearing test in February. ROV in 3 months documented in this encounter Miscellaneous Notes * Addendum Note - Ruddy Stapleton NP - 12/17/2019 9:30 AM CDTAddended by: RUDDY STAPLETON on: 12/17/2019 10:04 AM Modules accepted: Orders documented in this encounter Plan of Treatment Not on file documented as of this encounter Results * Lactate dehydrogenase (LD) (03/17/2020 10:24 AM WINDING LATHE OPERATOR) Lactate dehydrogenase (LDH) 210 100 - 250 Units/L [facility]AN[facility]SA CASTRO Comment:Testing performed by : [facility], [address] [place] [phone] Blood specimen (specimen) 03/17/2020 10:24 AM WINDING LATHE OPERATOR 03/17/2020 10:29 AM WINDING LATHE OPERATOR us Burt Dos Santos MD PhD LAB BLOOD ORDERABLES Final Result VANESSA CASTRO [facility] Department [place] [address] * (ABNORMAL) Comprehensive metabolic panel (03/17/2020 10:24 AM WINDING LATHE OPERATOR) Pathologist [facility] Sodium 140 135 - 145 mmol/L VANESSA CASTRO Comment:Testing performed by : [facility], [address] [place] [phone] Potassium, pl 5.2(H) 3.3 - 4.9 mmol/L VANESSA CASTRO Comment:Testing performed by : [facility], [address] [place] [phone] Chloride 103 97 - 110 mmol/L VANESSA CASTRO Comment:Testing performed by : [facility], [address] [place] [phone] CO2 29 22 - 32 mmol/L VANESSA CASTRO Comment:Testing performed by : [facility], [address] [place] [phone] Anion gap 8 2 - 15 mmol/L VANESSA CASTRO Comment:Testing performed by : [facility], [address] [place] [phone] BUN 28(H) 8 - 25 mg/dL VANESSA CASTRO Comment:Testing performed by : [facility], [address] [place] [phone] Creatinine 0.85 0.80 - 1.30 mg/dL VANESSA CASTRO Comment:Testing performed by : [facility], [address] [place] [phone] Glucose 104 70 - 199 mg/dL CERNER BJ Comment: [...] was last revised 2017. Testing performed by: [address] [phone] Calcium 9.7 8.5 - 10.3 mg/dL CERNER BJ Comment:Testing performed by : [address] [address] Bilirubin, total 0.6 0.1 - 1.2 mg/dL CERNER BJ Comment:Testing performed by : [facility], [address] [place] [phone] Protein, pl 6.9 6.5 - 8.5 g/dL CERNER BJ Comment:Testing performed by : [address] [phone] Albumin 4.8 3.5 - 5.0 g/dL CERNER BJ Comment:Testing performed by : [address] [phone] Alk phos 68 40 - 130 Units/L CERNER BJ Comment:Testing performed by : [address] [phone] ALT 20 7 - 55 Units/L CERNER BJ Comment:Testing performed by : [address] [phone] AST 17 10 - 50 Units/L CERNER BJ Comment:Testing performed by : [address] [phone] Blood specimen (specimen) 03/17/2020 10:24 AM WINDING LATHE OPERATOR 03/17/2020 10:29 AM WINDING LATHE OPERATOR Burt Dos Santos MD PhD LAB BLOOD ORDERABLES Final Result [facility] Department [place] [address] * (ABNORMAL) CBC with auto differential (03/17/2020 10:24 AM WINDING LATHE OPERATOR) WBC 13.7(H) 3.8 - 9.8 K/cumm CERGEOFF CASTRO Comment:Testing performed by : [facility], [address] [place] [phone] Hgb 15.0 13.8 - 17.2 g/dL VANESSA CASTRO Comment:Testing performed by : [facility], [address] [place] [phone] Hct 44.7 40.7 - 50.3 % VANESSA CASTRO Comment:Testing performed by : [facility], [address] [place] [phone] Plt 163 140 - 440 K/cumm VANESSA CASTRO Comment:Testing performed by : [facility], [address] [place] [phone] MPV 11.0(H) 6.8 - 10.4 fL CERGEOFF BJ Comment:Testing performed by : [address] [address] RBC 4.57 4.50 - 5.70 M/cumm VANESSA CASTRO Comment:Testing performed by : [address] [address] MCV 97.8(H) 80.0 - 97.6 fL VANESSA BJ Comment:Testing performed by : [address] [address] MCH 32.8 26.7 - 33.7 pg CERGEOFF BJ Comment:Testing performed by : [facility], [address] [place] [phone] MCHC 33.5 32.7 - 35.5 g/dL VANESSA BJ Comment:Testing performed by : [address] [phone] RDW CV 15.1(H) 11.8 - 14.6 % [facility] Comment:Testing performed by : [facility], [address] [facility] [address] NRBC abs 0.02(H) 0.00 - 0.01 K/cumm [facility] Comment:Testing performed by : [facility], [facility] [phone] Blood specimen (specimen) 03/17/2020 10:24 AM WINDING LATHE OPERATOR 03/17/2020 10:29 AM WINDING LATHE OPERATOR Burt Dos Santos MD PhD LAB BLOOD ORDERABLES Final Result [facility] Department [place] [address] * (ABNORMAL) IgG (03/17/2020 10:20 AM WINDING LATHE OPERATOR) Immunoglobulin G 513.0(L) 700.0 - 1,600.0 mg/dL [facility] Blood specimen (specimen) 03/17/2020 10:20 AM WINDING LATHE OPERATOR 03/17/2020 10:54 AM WINDING LATHE OPERATOR Burt Dos Santos MD PhD LAB BLOOD ORDERABLES Final Result Performing Organization Address City/[facility]/ZIP Co de Phone Number [facility] [place] [address] documented in this encounter Visit Diagnoses Diagnosis CLL (chronic lymphocytic leukemia) (HCC) Chronic lymphoid leukemia, without mention of having achieved remission Hypogammaglobulinemia (HCC) Unspecified hypogammaglobulinemia documented in this encounter Discontinued Medications Medication Sig Discontinue Reason Start Date End Da te predniSONE (DELTASONE) 50 mg tablet Take 50 mg by mouth daily Therapy completed 12/17/2019 documented as of this encounter Orders Appointment Requests Count Last Ordered Date Fi rst Ordered Date ONCBCN CLINIC APPOINTMENT REQUEST 2 021 12/17/2019 ONCBCN LAB APPOINTMENT 1 03/17/2020 documented in this encounter Additional Health Concerns Infection Onset Date Last Indicated Resolved Time C. difficile Comment:Backloaded December 21, 2010 09/21/2010 09/21/2010 documented as of this encounter Care Teams Manager Operating Relationship Specialty Start Date End Date Lenin Ventura MD [id number] [address] PCP - General 07/06/16 Lenin Ventura MD [address] [address] 07/06/16 Burt Dos Santos MD PhD [address] [address] Medical Oncologist/Oncology Physician Medical Oncology 06/16/19 documented as of this encounter
--- OUTSIDE RECORDS SUMMARY | 2024-02-22 08:31 | XMS_ITS | Encounter Summary ---
Author Organization [facility] Address [address] [place] [address] Phone Care Team Providers Care Microfilm Clerk Name Role Phone Lenin Ventura MD Primary Care Provider [phone] Lenin Ventura MD Unavailable [phone] Burt Dos Santos MD PhD Unavailable [phone] Reason for Visit * Oncology (Routine) - Authorized Specialty Diagnoses / Procedures Referred By Contac t Referred To Contact Medical Oncology / Oncology Diagnoses Appt Comment: LAB Procedures RETURN Lenin Ventura MD [address] [facility] [address] [place] [address] Phone: tel: fax: Burt Dos Santos MD PhD [id number] [facility] [place] [address] DIV IM BONE MARROW TRANSPLANT, 5TH, [address] [place] [address] Phone: tel: fax: Referral ID Status Reason Start Date Expiration Date V isits Requested Visits Authorized [id number] Authorized 08/02/2017 03/12/2024 99 99 Encounter Details Date Type Department Care Team (Late st Contact Info) Description 03/16/2021 11:15 AM AGENCY SERVICE REPRESENTATIVE Office Visit [facility] Bone Marrow Transplant [address] [facility] 7th Floor, [place] [address] Burt Dos Santos MD PhD [address] DIV IM BONE MARROW TRANSPLANT, [address] [place] [address] CLL (chronic lymphocytic leukemia) (CMS/HCC) ([facility]) Social History Tobacco Use Types Packs/Day Years Used Date Smoking Tobacco: Former Smokeless Tobacco: Never Alcohol Use Standard Drinks/Week Comments Not Currently 0 (1 standard drink = 0.6 oz pur e alcohol) Sex and Gender Information Value Date Recorded Sex Assigned at Not on file Legal Sex Male 9:45 AM AGENCY SERVICE REPRESENTATIVE Gender Identity Not on file Sexual Orientation Not on file documented as of this encounter Last Filed Vital Signs Vital Sign Reading Time Taken Comments Blood Pressure 135/76 03/16/2021 10:42 AM AGENCY SERVICE REPRESENTATIVE Pulse 80 03/16/2021 10:42 AM AGENCY SERVICE REPRESENTATIVE Temperature 36.6 ??C (97.8 ??F) 03/16/2021 10:[address] Respiratory Rate 18 03/16/2021 10:39 AM AGENCY SERVICE REPRESENTATIVE Oxygen Saturation 97% 03/16/2021 10:42 AM AGENCY SERVICE REPRESENTATIVE Inhaled Oxygen Concentration - - Weight 130.6 kg (288 lb) 03/16/2021 10:39 AM AGENCY SERVICE REPRESENTATIVE Height - - Body Mass Index 36.98 09/08/2020 10:31 AM CDT documented in this encounter Progress Notes * Burt Dos Santos MD PhD - 03/16/2021 11:15 AM CST BMT Progress Note Oncology History CLL (chronic lymphocytic leukemia) (CMS/HCC) ([facility]) 07/03/2005 Initial Diagnosis Lymphoma, small lymphocytic; Initial [...] then q2mo x 4; on clinical trial [facility] [id number] --> stable disease on CT; marrow 30-40% [...] in keeping with known lymphoma Subjective Interval History Mr. Abdullahi returns for scheduled follow up. He denies fevers, chills. He has no nausea, vomiting, diarrhea. He has not noticed any new lumps or bumps. He has been on IVIG and now off. He had one sinus infection, and received antibiotics. He noted he is working ad hoc for [employer]. 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 He also mentoned each IVIG does costs him about $700. Outpatient Encounter Medications as of 03/16/2021: ??? acyclovir (ZOVIRAX) 200 mg capsule, Take 2 capsules (400 mg total) by mouth 2 (two) times a day, Disp: 180 capsule, Rfl: 3 ??? ALPRAZolam (XANAX) 0.25 mg tablet, Take 0.5-1 tablets by mouth 3 (three) times a day as needed for anxiety, Disp: , Rfl: ??? fluticasone (FLONASE) 50 mcg/actuation nasal spray, Administer 2 sprays into each nostril daily, Disp: , Rfl: ??? Imbruvica 420 mg tablet, TAKE 1 TABLET BY MOUTH ONCE DAILY WITH A FULL GLASS OF WATER, Disp: 28tablet, Rfl: 3 ??? magnesium oxide (MAG-OX) 250 mg (150.8 [...] daily, Disp: 30 each, Rfl: 0 ??? amoxicillin-clavulanate (AUGMENTIN) 875-125 mg per tablet, [...] taking: Reportedon 03/16/2021), Disp: , Rfl: ??? levoFLOXacin (LEVAQUIN) 500 mg tablet, Take 500 mg by mouth daily (Patient not taking: Reportedon 03/16/2021), Disp: , Rfl: Performance Status: 1 Objective Vitals: BP: 135/76 Temp: 36.6 ??C (97.8 ??F) Temp src: Transdermal Pulse: 80 Resp: 18 SpO2: 97 % Weight: 130.6 kg (288 lb) Physical exam: In no acute distress HEENT:schlera white Lungs:CTA tawny Heart:RRR Abdomen:soft, non-tender Extremities:no edema Skin:no rash Neuro:no focal deficits Nodes: previously palpable sub-mental LAD is now resolved. Lab/Radiology/Diagnostic Review: CBC: Lab Results Component Value Date/Time WBC 12.4 (H) 03/16/2021 10:27 AM WBC 13.7 (H) 04/10/2019 03:03 PM HGB 15.4 03/16/2021 10:27 AM HGB 14.2 04/10/2019 03:03 PM HCT 45.6 03/16/2021 10:27 AM HCT 41.2 04/10/2019 03:03 PM LABPLAT 178 03/16/2021 10:27 AM LABPLAT 158 04/10/2019 03:03 PM NEUTROABS 5.4 03/16/2021 10:27 AM NEUTROABS 4,590 04/10/2019 03:03 PM CMP: Lab Results Component Value Date/Time SODIUM 138 03/16/2021 10:27 AM POTASSIUM 5.2 (H) 03/16/2021 10:27 AM CO2 30 03/16/2021 10:27 AM BUNSER 20 03/16/2021 10:27 AM GLUCOSE 123 03/16/2021 10:27 AM CREATININE 0.81 03/16/2021 10:27 AM CALCIUM 9.7 03/16/2021 10:27 AM CHLORIDE 101 03/16/2021 10:27 AM ALBUMIN 4.6 03/16/2021 10:27 AM AST 16 03/16/2021 10:27 AM ALT 18 03/16/2021 10:27 AM ALKPHOS 86 03/16/2021 10:27 AM BILITOT 0.6 03/16/2021 10:27 AM PROT 6.7 03/16/2021 10:27 AM ANIONGAP 7 03/16/2021 10:27 AM LDH: Lab Results Component Value Date/Time LDH 176 03/16/2021 10:27 AM Radiology MPRESSION:(09/08/20) 1. New tiny bilateral nodules, which are indeterminate and may be inflammatory. Attention on follow-up is recommended. ?? 2. No substantial change in the burden of lymphadenopathy in keeping with known lymphoma. ?? Dictated by: Estefany Xiao M.D. IMPRESSION:(09/08/20) Stable to mild decrease in diffuse lymphadenopathy throughout all cervical mojgan stations. Assessment and Plan: Mr. Abdullahi is a [...] effects from the ibrutinib, otherwise doing well. Will RTC in 4 months, and will call if any new infections arise. ?? 2.?Recurrent sinus infections. He will complete 6 cycles of IVIG today. We will then stop and monitor his IgG level. Pending from today. He does have a financial barrier to IVIG with a $700 out of pocket expense. ?? 3.?Thyroid nodule.?We will continue to follow this expectantly. ?? As always, the patient knows to contact our office with any questions or concerns in the interim. CY SERVICE REPRESENTATIVE documented in this encounter Nursing Notes * Roberta Burnett RN - 03/16/2021 11:15 AM CST ROV with TAF for CLL. Doing well, ROV In 4 months. Will use IVIG conservatively d/t woodson for patient being $700 CY SERVICE REPRESENTATIVE documented in this encounter Plan of Treatment Not on file documented as of this encounter Results * (ABNORMAL) IgG (07/13/2021 9:35 AM CDT) [facility] Immunoglobulin G <300.0(L) 700.0 - 1,600.0 mg/dL [facility] Blood 07/13/2021 9:35 AM CDT 07/13/2021 10:17 AM CDT Burt Dos Santos MD PhD LAB BLOOD ORDERABLES Final Result [facility] Department [place] [address] * Lactate dehydrogenase (LD) (07/13/2021 9:35 AM CDT) [facility] Lactate dehydrogenase (LDH) 173 100 - 250 Units/L [facility] Comment:Testing performed by : [facility], [address] [place] [phone] Blood 07/13/2021 9:35 AM CDT 07/13/2021 9:40 AM CDT Burt Dos Santos MD PhD LAB BLOOD ORDERABLES Final Result [facility] Department [place] [address] * (ABNORMAL) Comprehensive metabolic panel (07/13/2021 9:35 AM CDT) [facility] Sodium 139 135 - 145 mmol/L [facility] Comment:Testing performed by : [facility], [address] [place] [phone] Potassium, pl 4.6 3.3 - 4.9 mmol/L [facility] Comment:Testing performed by : [facility], [address] [place] [phone] Chloride 104 97 - 110 mmol/L [facility] Comment:Testing performed by : [facility], [address] [place] [phone] CO2 27 22 - 32 mmol/L [facility] Comment:Testing performed by : [facility], [address] [place] [phone] Anion gap 8 2 - 15 mmol/L [facility] Comment:Testing performed by : [facility], [address] [place] [phone] BUN 14 8 - 25 mg/dL [facility] Comment:Testing performed by : [facility], [address] [place] [phone] Creatinine 0.72(L) 0.80 - 1.30 mg/dL [facility] Comment:Testing performed by : [facility], [address] [place] [phone] Glucose 107 70 - 199 mg/dL [facility] [...] was last revised 2017. Testing performed by: [facility], [address] [place] [phone] Calcium 9.3 8.5 - 10.3 mg/dL [facility] Comment:Testing performed by : [address] [phone] Bilirubin, total 0.6 0.1 - 1.2 mg/dL [facility] Comment:Testing performed by : [address] [address] Protein, pl 6.0(L) 6.5 - 8.5 g/dL [facility] Comment:Testing performed by : [address] [address] Albumin 4.5 3.5 - 5.0 g/dL [facility] Comment:Testing performed by : [address] [address] Alk phos 93 40 - 130 Units/L [facility] Comment:Testing performed by : [address] [phone] ALT 17 7 - 55 Units/L [facility] Comment:Testing performed by : [address] [phone] AST 16 10 - 50 Units/L [facility] Comment:Testing performed by : [address] [phone] Blood 07/13/2021 9:35 AM CDT 07/13/2021 9:40 AM CDT Burt Dos Santos MD PhD LAB BLOOD ORDERABLES Final Result [facility] Department [place] [address] * (ABNORMAL) CBC with auto differential (07/13/2021 9:35 AM CDT) WBC 12.1(H) 3.8 - 9.8 K/cumm [facility] Comment:Testing performed by : [facility], [address] [place], [place] [phone] Hgb 14.5 13.8 - 17.2 g/dL [facility] Comment:Testing performed by : [address] [address] Hct 42.5 40.7 - 50.3 % [facility] Comment:Testing performed by : [address] [address] Plt 139(L) 140 - 440 K/cumm [facility] Comment:Testing performed by : [address] [address] MPV 12.1(H) 6.8 - 10.4 fL [facility] Comment:Testing performed by : [address] [address] RBC 4.53 4.50 - 5.70 M/cumm [facility] Comment:Testing performed by : [address] [address] MCV 93.8 80.0 - 97.6 fL [facility] Comment:Testing performed by : [facility], [address] [place] [phone] MCH 31.9 26.7 - 33.7 pg [facility] Comment:Testing performed by : [address] [address] MCHC 34.0 32.7 - 35.5 g/dL [facility] Comment:Testing performed by : [address] [address] RDW CV 15.0(H) 11.8 - 14.6 % [facility] Comment:Testing performed by : [facility], [address] [facility] [address] NRBC abs 0.01 0.00 - 0.01 K/cumm [facility] Comment:Testing performed by : [facility], [address] [place] [phone] Blood 07/13/2021 9:35 AM CDT 07/13/2021 9:40 AM CDT Burt Dos Santos MD PhD LAB BLOOD ORDERABLES Final Result [facility] Department [place] [address] documented in this encounter Visit Diagnoses Diagnosis CLL (chronic lymphocytic leukemia) (HCC) Chronic lymphoid leukemia, without mention of having achieved remission documented in this encounter Historical Medications * This list may reflect changes made after this encounter. traZODone (DESYREL) 50 mg tabletIndications: CLL (chronic lymphocytic leukemia) (HCC) Take 1 tablet (50 mg total) by mouth nightly 12/20/2020 added in this encounter Orders Lab Orders Without Results Count Last Ordered D ate First Ordered Date IGG 1 03/16/2021 Appointment Requests Count Last Ordered Date Fi rst Ordered Date ONCBCN CLINIC APPOINTMENT REQUEST 2 022 03/16/2021 ONCBCN LAB APPOINTMENT 1 07/13/2021 documented in this encounter Additional Health Concerns Infection Onset Date Last Indicated Resolved Time C. difficile Comment:Backloaded December 21, 2010 09/21/2010 09/21/2010 documented as of this encounter Care Teams Microfilm Clerk Relationship Specialty Start Date End Date Lenin Ventura MD [id number] [address] PCP - General 07/06/16 Lenin Ventura MD [address] [address] 07/06/16 Burt Dos Santos MD PhD [id number] [address] Medical Oncologist/Manufacturing Finance Manager Medical Oncology 06/16/19 documented as of this encounter
--- OUTSIDE RECORDS SUMMARY | 2024-02-22 08:31 | XMS_ITS | Encounter Summary ---
Author Organization [facility] Address [address] [place] [address] Phone Care Team Providers Care Oil Heaterman Name Role Phone Lenin Ventura MD Primary Care Provider [phone] Lenin Ventura MD Unavailable [phone] Burt Dos Santos MD PhD Unavailable [phone] Reason for Visit * Oncology (Routine) - Authorized Specialty Diagnoses / Procedures Referred By Contac t Referred To Contact Oncology Diagnoses CLL (chronic lymphocytic leukemia) (HCC) Procedures ONCBCN ARM DRAW APPT ONC LAB ONLY Burt Dos Santos MD PhD Phone: tel: fax: Burt Dos Santos MD PhD Phone: tel: fax: Referral ID Status Reason Start Date Expiration Date Visits Requested Visits Authorized [id number] Authorized Specialty Services Required 07/03/2019 03/12/2024 99 [phone] Encounter Details Date Type Department Care Team (Latest Contact Info) Description 09/08/2020 10:00 AM CDT Clinical Support [facility] Oncology [facility] 7th [place] [address] [place] [address] CLL (chronic lymphocytic leukemia) (CMS/HCC) Social History Tobacco Use Types Packs/Day Years Used Date Smoking Tobacco: Former Smokeless Tobacco: Never Alcohol Use Standard Drinks/Week Comments Not Currently 0 (1 standard drink = 0.6 oz pur e alcohol) Sex and Gender Information Value Date Recorded Sex Assigned at Not on file Legal Sex Male 9:45 AM GUM COOK Gender Identity Not on file Sexual Orientation Not on file documented as of this encounter Plan of Treatment Not on file documented as of this encounter Procedures Procedure Name Priority Date/Time Associated Diagnosis Comments DIFFERENTIAL AUTO STAT 09/08/2020 10: 16 AM CDT CLL (chronic lymphocytic leukemia) ([facility]/HCC) CBC WITH AUTO DIFFERENTIAL STAT 09/08/2020 10:16 AM CDT CLL (chronic lymphocytic leukemia) ([facility]/HCC) IGG STAT 09/08/2020 10:16 AM CDT CLL (chronic lymphocytic leukemia) ([facility]) COMPREHENSIVE METABOLIC PANEL STAT 09/08/2020 10:16 AM CDT CLL (chronic lymphocytic leukemia) ([facility]) documented in this encounter Results * (ABNORMAL) Differential, auto (09/08/2020 10:16 AM CDT) Neutrophil abs 6.8(H) 1.8 - 6.6 K/cumm [facility] Comment:Testing performed by : [facility], [address] [place] [phone] Lymphocyte abs 7.5(H) 1.2 - 3.3 K/cumm [facility] Comment:Testing performed by : [facility], [address] [place] [phone] Monocyte abs 1.2 0.2 - 1.2 K/cumm [facility] Comment:Testing performed by : [facility], [address] [place] [phone] Eosinophil abs 0.1 0.0 - 0.5 K/cumm [facility] Comment:Testing performed by : [facility], [address] [place] [phone] Basophil abs 0.1 0.0 - 0.2 K/cumm [facility] Comment:Testing performed by : [facility], [address] [place] [phone] Neutrophil pct 43.3 % [facility] Comment: Interpretive Data Percent cell count reference ranges are not reported, since discordance with absolute values may lead to misinterpretation of CBC data. Current Interpretive Data was last revised on 2017. Testing performed by: [facility], [address] [place] [phone] Lymphocyte pct 48.0 % [facility] Comment: Interpretive Data Percent cell count reference ranges are not reported, since discordance with absolute values may lead to misinterpretation of CBC data. Current Interpretive Data was last revised on 2017. Testing performed by: [facility], [address] [place] [phone] Monocyte pct 7.3 % [facility] Comment:Testing performed by : [facility], [address] [place] [phone] Eosinophil pct 0.9 % [facility] Comment:Testing performed by : [facility], [address] [place] [phone] Basophil pct 0.5 % [facility] Comment:Testing performed by : [facility], [address] [place] [phone] Blood specimen (specimen) 09/08/2020 10:16 AM CDT 09/08/2020 10:17 AM CDT Burt Dos Santos MD PhD LAB BLOOD ORDERABLES Final Result [facility] Department [place] [address] * (ABNORMAL) CBC with auto differential (09/08/2020 10:16 AM CDT) WBC 15.7(H) 3.8 - 9.8 K/cumm [facility] Comment:Testing performed by : [address] [phone] Hgb 14.0 13.8 - 17.2 g/dL [facility] Comment:Testing performed by : [address] [address] Hct 40.8 40.7 - 50.3 % [facility] Comment:Testing performed by : [facility], [address] [place], [place] [phone] Plt 178 140 - 440 K/cumm [facility] Comment:Testing performed by : [facility], [address] [place], [place] [phone] MPV 11.8(H) 6.8 - 10.4 fL [facility] Comment:Testing performed by : [facility], [address] [place], [place] [phone] RBC 4.27(L) 4.50 - 5.70 M/cumm [facility] Comment:Testing performed by : [place] [phone] MCV 95.5 80.0 - 97.6 fL [facility] Comment:Testing performed by : [facility], [address] [place], [place] [phone] MCH 32.7 26.7 - 33.7 pg [facility] Comment:Testing performed by : [facility], [address] [place], [place] [phone] MCHC 34.3 32.7 - 35.5 g/dL [facility] Comment:Testing performed by : [place] [phone] RDW CV 16.0(H) 11.8 - 14.6 % [facility] Comment:Testing performed by : [address] [phone] NRBC abs 0.03(H) 0.00 - 0.01 K/cumm [facility] Comment:Testing performed by : [facility], [address] [place] [phone] Blood specimen (specimen) 09/08/2020 10:16 AM CDT 09/08/2020 10:17 AM CDT Burt Dos Santos MD PhD LAB BLOOD ORDERABLES Final Result [facility] Department [place] [address] * (ABNORMAL) Comprehensive metabolic panel (09/08/2020 10:16 AM CDT) Sodium 134(L) 135 - 145 mmol/L [facility] Comment:Testing performed by : [facility], [address] [place] [phone] Potassium, pl 5.2(H) 3.3 - 4.9 mmol/L [facility] Comment: Hemolyzed; result may be falsely elevated. Testing performed by: [facility], [address] [place] [phone] Chloride 101 97 - 110 mmol/L [facility] Comment:Testing performed by : [facility], [address] [place] [phone] CO2 27 22 - 32 mmol/L [facility] Comment:Testing performed by : [facility], [address] [place] [phone] Anion gap 6 2 - 15 mmol/L [facility] Comment:Testing performed by : [facility], [address] [place] [phone] BUN 19 8 - 25 mg/dL [facility] Comment:Testing performed by : [facility], [address] [place] [phone] Creatinine 0.67(L) 0.80 - 1.30 mg/dL [facility] Comment:Testing performed by : [address] [phone] Glucose 127 70 - 199 mg/dL [facility] Comment: Interpretive Data Fasting glucose >/= 126 [...] revised 2017. Testing performed by: [facility], [address] [place] [phone] Calcium 9.2 8.5 - 10.3 mg/dL [facility] Comment:Testing performed by : [facility], [address] [place] [phone] Bilirubin, total 0.6 0.1 - 1.2 mg/dL [facility] Comment:Testing performed by : [facility], [address] [place] [phone] Protein, pl 6.7 6.5 - 8.5 g/dL [facility] Comment:Testing performed by : [facility], [address] [place] [phone] Albumin 4.3 3.5 - 5.0 g/dL [facility] Comment:Testing performed by : [facility], [address] [place] [phone] Alk phos 79 40 - 130 Units/L [facility] Comment:Testing performed by : [facility], [address] [place] [phone] ALT 14 7 - 55 Units/L [facility] Comment:Testing performed by : [facility], [address] [place] [phone] AST 24 10 - 50 Units/L [facility] Comment: Hemolyzed; result may be falsely elevated. Testing performed by: [facility], [address] [place] [phone] Blood specimen (specimen) 09/08/2020 10:16 AM CDT 09/08/2020 10:17 AM CDT Burt Dos Santos MD PhD LAB BLOOD ORDERABLES Final Result [facility] Department [place] [address] * (ABNORMAL) IgG (09/08/2020 10:16 AM CDT) Immunoglobulin G 537.0(L) 700.0 - 1,600.0 mg/dL [facility] Blood specimen (specimen) 09/08/2020 10:16 AM CDT 09/08/2020 10:30 AM CDT Burt Dos Santos MD PhD LAB BLOOD ORDERABLES Final Result [facility] Department [place] [address] documented in this encounter Visit Diagnoses Diagnosis CLL (chronic lymphocytic leukemia) (HCC) Chronic lymphoid leukemia, without mention of having achieved remission documented in this encounter Orders Appointment Requests Count Last Ordered Date Fi rst Ordered Date ONCBCN LAB APPOINTMENT 1 09/08/2020 documented in this encounter Additional Health Concerns Infection Onset Date Last Indicated Resolved Time C. difficile Comment:Backloaded December 21, 2010 09/21/2010 09/21/2010 documented as of this encounter Care Teams Oil Heaterman Relationship Specialty Start Date End Date Lenin Ventura MD [email or web address] [address] PCP - General 07/06/16 Lenin Ventura MD [email or web address] [address] 07/06/16 Burt Dos Santos MD PhD [email or web address] [address] Medical Oncologist/Instrumental Musician Medical Oncology 06/16/19 documented as of this encounter
--- OUTSIDE RECORDS SUMMARY | 2024-02-22 08:31 | XMS_ITS | Encounter Summary ---
Author Organization [facility] Address [address] [place] [address] Phone Care Team Providers Care Firearms Instructor Name Role Phone Lenin Ventura MD Primary Care Provider [phone] Lenin Ventura MD Unavailable [phone] Burt Dos Santos MD PhD Unavailable [phone] Reason for Visit * Oncology (Routine) - Authorized Specialty Diagnoses / Procedures Referred By Contac t Referred To Contact Oncology Diagnoses CLL (chronic lymphocytic leukemia) (HCC) Procedures ONCBCN ARM DRAW APPT ONC LAB ONLY Burt Dos Santos MD PhD Phone: tel: fax: Burt Dos Santos MD PhD Phone: tel: fax: Referral ID Status Reason Start Date Expiration Date Visits Requested Visits Authorized [id number] Authorized Specialty Services Required 07/03/2019 03/12/2024 99 99 Encounter Details Date Type Department Care Team (Late st Contact Info) Description 03/16/2021 10:30 AM PATTERN DRUM MAKER Lab [facility] Oncology [address] 7th [place] [address] [place] [address] Burt Dos Santos MD PhD [address] DIV IM BONE MARROW TRANSPLANT[address] [place] [address] Magali Stapleton NP [address] IM BONE MARROW TRANSPLANT, [address] [place] [address] CLL (chronic lymphocytic leukemia) (CMS/HCC) ([facility]) Discharge Disposition: Discharge to home or self care Social History Tobacco Use Types Packs/Day Years Used Date Smoking Tobacco: Former Smokeless Tobacco: Never Alcohol Use Standard Drinks/Week Comments Not Currently 0 (1 standard drink = 0.6 oz pur e alcohol) Sex and Gender Information Value Date Recorded Sex Assigned at Not on file Legal Sex Male 9:45 AM PATTERN DRUM MAKER Gender Identity Not on file Sexual Orientation Not on file documented as of this encounter Discharge Disposition Disposition Code Departure Means Destination Discharge to home or self care documented in this encounter Plan of Treatment Not on file documented as of this encounter Procedures Procedure Name Priority Date/Time Associated Diagnosis Comments EGFR STAT 03/16/2021 10:27 AM PATTERN DRUM MAKER CLL (chronic lymphocytic leukemia) (CMS/HCC) ([facility]) DIFFERENTIAL AUTO STAT 03/16/2021 10: 27 AM PATTERN DRUM MAKER CLL (chronic lymphocytic leukemia) (CMS/HCC) (HCC) CBC WITH AUTO DIFFERENTIAL STAT 03/16/2021 10:27 AM PATTERN DRUM MAKER CLL (chronic lymphocytic leukemia) (CMS/HCC) (HCC) LACTATE DEHYDROGENASE STAT 03/16/2021 10:27 AM PATTERN DRUM MAKER CLL (chronic lymphocytic leukemia) (CMS/HCC) (HCC) IGG STAT 03/16/2021 10:27 AM PATTERN DRUM MAKER CLL (chronic lymphocytic leukemia) (CMS/HCC) (HCC) COMPREHENSIVE METABOLIC PANEL STAT 03/16/2021 10:27 AM PATTERN DRUM MAKER CLL (chronic lymphocytic leukemia) (CMS/HCC) (HCC) documented in this encounter Results * eGFR (03/16/2021 10:27 AM PATTERN DRUM MAKER) eGFR >90 90 - 130 mL/min/1. 73 [...] was last reviewed 2021. Testing performed by: [facility], [address] [place] [phone] Blood 03/16/2021 10:2 7 AM PATTERN DRUM MAKER 03/16/2021 10:29 AM PATTERN DRUM MAKER us Magali Stapleton [facility] LAB BLOOD ORDERABLES Final Res ult [facility] Department [place] [address] * (ABNORMAL) Differential, auto (03/16/2021 10:27 AM PATTERN DRUM MAKER) Neutrophil abs 5.4 1.8 - 6.6 K/cumm [facility] Comment:Testing performed by : [facility], [address] [place] [phone] Lymphocyte abs 5.9(H) 1.2 - 3.3 K/cumm [facility] Comment:Testing performed by : [facility], [address] [place] [phone] Monocyte abs 0.9 0.2 - 1.2 K/cumm [facility] Comment:Testing performed by : [facility], [address] [place] [phone] Eosinophil abs 0.1 0.0 - 0.5 K/cumm [facility] Comment:Testing performed by : [facility], [address] [place] [phone] Basophil abs 0.1 0.0 - 0.2 K/cumm [facility] Comment:Testing performed by : [facility], [address] [place] [phone] Neutrophil pct 43.7 % [facility] Comment: Interpretive Data Percent cell count reference ranges are not reported, since discordance with absolute values may lead to misinterpretation of CBC data. Current Interpretive Data was last revised on 2017. Testing performed by: [address] [address] Lymphocyte pct 47.9 % [facility] Comment: Interpretive Data Percent cell count reference ranges are not reported, since discordance with absolute values may lead to misinterpretation of CBC data. Current Interpretive Data was last revised on 2017. Testing performed by: [facility], [address] [place] [address] Monocyte pct 7.0 % [facility] Comment:Testing performed by : [address] [address] Eosinophil pct 0.8 % [facility] Comment:Testing performed by : [facility], [address] [place] [phone] Basophil pct 0.6 % [facility] Comment:Testing performed by : [address] [address] Blood 03/16/2021 10:2 7 AM PATTERN DRUM MAKER 03/16/2021 10:29 AM PATTERN DRUM MAKER us Magali Velazquezr [facility] LAB BLOOD ORDERABLES Final Res ult [facility] Department [place] [address] * (ABNORMAL) CBC with auto differential (03/16/2021 10:27 AM PATTERN DRUM MAKER) WBC 12.4(H) 3.8 - 9.8 K/cumm [facility] Comment:Testing performed by : [facility], [address] [place] [phone] Hgb 15.4 13.8 - 17.2 g/dL [facility] Comment:Testing performed by : [facility], [address] [place] [address] Hct 45.6 40.7 - 50.3 % [facility] Comment:Testing performed by : [place] [id number] Plt 178 140 - 440 K/cumm [facility] Comment:Testing performed by : [address] [address] MPV 11.6(H) 6.8 - 10.4 fL [facility] Comment:Testing performed by : [address] [address] RBC 4.74 4.50 - 5.70 M/cumm [facility] Comment:Testing performed by : [address] [address] MCV 96.2 80.0 - 97.6 fL [facility] Comment:Testing performed by : [address] [address] MCH 32.6 26.7 - 33.7 pg [facility] Comment:Testing performed by : [address] [address] MCHC 33.9 32.7 - 35.5 g/dL [facility] Comment:Testing performed by : [address] [address] RDW CV 16.0(H) 11.8 - 14.6 % [facility] Comment:Testing performed by : [address] [address] NRBC abs 0.01 0.00 - 0.01 K/cumm [facility] Comment:Testing performed by : [facility], [address] [place] [address] Blood 03/16/2021 10:2 7 AM PATTERN DRUM MAKER 03/16/2021 10:29 AM PATTERN DRUM MAKER us Magali Stapleton [employer] [employer] LAB BLOOD ORDERABLES Final Res ult [facility] Department [place] [address] * (ABNORMAL) Comprehensive metabolic panel (03/16/2021 10:27 AM PATTERN DRUM MAKER) Sodium 138 135 - 145 mmol/L [facility] Comment:Testing performed by : [facility], [address] [place] [address] Potassium, pl 5.2(H) 3.3 - 4.9 mmol/L [facility] Comment:Testing performed by : [facility], [address] [place] [address] Chloride 101 97 - 110 mmol/L [facility] Comment:Testing performed by : [facility], [address] [place] [address] CO2 30 22 - 32 mmol/L [facility] Comment:Testing performed by : [facility], [address] [place] [address] Anion gap 7 2 - 15 mmol/L [facility] Comment:Testing performed by : [facility], [address] [place] [address] BUN 20 8 - 25 mg/dL [facility] Comment:Testing performed by : [facility], [address] [place] [address] Creatinine 0.81 0.80 - 1.30 mg/dL [facility] Comment:Testing performed by : [facility], [address] [place] [address] Glucose 123 70 - 199 mg/dL [facility] [...] was last revised 2017. Testing performed by: [facility], [address] [place], [place] [phone] Calcium 9.7 8.5 - 10.3 mg/dL [facility] Comment:Testing performed by : [place] [id number] Bilirubin, total 0.6 0.1 - 1.2 mg/dL [facility] Comment:Testing performed by : [address] [address] Protein, pl 6.7 6.5 - 8.5 g/dL [facility] Comment:Testing performed by : [address] [address] Albumin 4.6 3.5 - 5.0 g/dL [facility] Comment:Testing performed by : [address] [address] Alk phos 86 40 - 130 Units/L [facility] Comment:Testing performed by : [address] [address] ALT 18 7 - 55 Units/L [facility] Comment:Testing performed by : [address] [address] AST 16 10 - 50 Units/L [facility] Comment:Testing performed by : [address] [address] Blood 03/16/2021 10:2 7 AM PATTERN DRUM MAKER 03/16/2021 10:29 AM PATTERN DRUM MAKER us Magali Stapleton [employer] [employer] LAB BLOOD ORDERABLES Final Res ult [facility] Department [place] [address] * Lactate dehydrogenase (LD) (03/16/2021 10:27 AM PATTERN DRUM MAKER) Pathologist [facility] Lactate dehydrogenase (LDH) 176 100 - 250 Units/L [facility] Comment:Testing performed by : [facility], [address] [place] [phone] Blood 03/16/2021 10:2 7 AM PATTERN DRUM MAKER 03/16/2021 10:29 AM PATTERN DRUM MAKER Magali S. [place] WARDROBE STYLIST LAB BLOOD ORDERABLES Final Res ult Performing Organization Address [facility] [place] [address] * (ABNORMAL) IgG (03/16/2021 10:27 AM PATTERN DRUM MAKER) Pathologist [facility] Immunoglobulin G 377.0(L) 700.0 - 1,600.0 mg/dL [facility] Blood 03/16/2021 10:2 7 AM PATTERN DRUM MAKER 03/16/2021 11:26 AM PATTERN DRUM MAKER Magali SJulisa [place] WARDROBE STYLIST LAB BLOOD ORDERABLES Final Res ult Performing Organization Address [facility] [place] [address] documented in this encounter Visit Diagnoses Diagnosis CLL (chronic lymphocytic leukemia) (HCC) Chronic lymphoid leukemia, without mention of having achieved remission documented in this encounter Orders Appointment Requests Count Last Ordered Date Fi rst Ordered Date ONCBCN LAB APPOINTMENT 1 03/16/2021 documented in this encounter Additional Health Concerns Infection Onset Date Last Indicated Resolved Time C. difficile Comment:Backloaded December 21, 2010 09/21/2010 09/21/2010 documented as of this encounter Care Teams Firearms Instructor Relationship Specialty Start Date End Date Lenin Ventura MD [address] [address] PCP - General 07/06/16 Lenin Ventura MD [address] [address] 07/06/16 Burt Dos Santos MD PhD [address] [id number] Medical Oncologist/Gas Station Clerk Medical Oncology 06/16/19 documented as of this encounter
--- OUTSIDE RECORDS SUMMARY | 2024-02-22 08:31 | XMS_ITS | Encounter Summary ---
Author Organization [facility] Address [address] [place] [address] Phone Care Team Providers Care Multiple Cut Off Saw Operator Name Role Phone Lenin Ventura MD Primary Care Provider [phone] Lenin Ventura MD Unavailable [phone] Burt Dos Santos MD PhD Unavailable [phone] Encounter Details Date Type Department Care Team (Late st Contact Info) Description 03/18/2020 Telephone [facility] Bone Marrow Transplant [address] [facility] 7th [address], [place] [address] Agustina King Social History Tobacco Use Types Packs/Day Years Used Date Smoking Tobacco: Former Smokeless Tobacco: Never Alcohol Use Standard Drinks/Week Comments Not Currently 0 (1 standard drink = 0.6 oz pur e alcohol) Sex and Gender Information Value Date Recorded Sex Assigned at Not on file Legal Sex Male 9:45 AM CORE RESCUER Gender Identity Not on file Sexual Orientation Not on file documented as of this encounter Miscellaneous Notes * Telephone Encounter - Roberta Burnett RN - 03/18/2020 8:51 AM CORE RESCUER Called PCP Rn back and let her know what patient follows with us for. No further questions RESCUER * Telephone Encounter - Agustina King - 03/18/2020 8:37 AM CST A nurse from Dr. Lenin Ventura's (patient's primary) office called to verify some information. Please call back [phone]. RESCUER documented in this encounter Plan of Treatment Not on file documented as of this encounter Visit Diagnoses Not on filedocumented in this encounter Additional Health Concerns Infection Onset Date Last Indicated Resolved Time C. difficile Comment:Backloaded December 21, 2010 09/21/2010 09/21/2010 documented as of this encounter Care Teams Multiple Cut Off Saw Operator Relationship Specialty Start Date End Date Lenin Ventura MD [address] [place] [address] PCP - General 07/06/16 Lenin Ventura MD [address] [place] [address] 07/06/16 Burt Dos Santos MD PhD [address] [place] [id number] Medical Oncologist/Bar Tacker Medical Oncology 06/16/19 documented as of this encounter
--- OUTSIDE RECORDS SUMMARY | 2024-02-22 08:31 | XMS_ITS | Encounter Summary ---
Author Organization [facility] Address [address] [place] [address] Phone Care Team Providers Care Publications Inspector Name Role Phone Lenin Ventura MD Primary Care Provider [phone] Lenin Ventura MD Unavailable [phone] Burt Dos Santos MD PhD Unavailable [phone] Encounter Details Date Type Department Care Team (Late st Contact Info) Description 10/22/2019 6:45 AM CDT Lab [facility] Oncology [facility] 7th [place] [address] [place] [address] CLL (chronic lymphocytic leukemia) (CMS/HCC); Hypogammaglobulinemia (CMS/HCC) Social History Tobacco Use Types Packs/Day Years Used Date Smoking Tobacco: Former Smokeless Tobacco: Never Alcohol Use Standard Drinks/Week Comments Not Currently 0 (1 standard drink = 0.6 oz pur e alcohol) Sex and Gender Information Value Date Recorded Sex Assigned at Not on file Legal Sex Male 9:45 AM WIRE LATHER Gender Identity Not on file Sexual Orientation Not on file documented as of this encounter Plan of Treatment Not on file documented as of this encounter Procedures Procedure Name Priority Date/Time Associated Diagnosis Comments MORPHOLOGIC SCREEN STAT 10/22/2019 6: 50 AM CDT CLL (chronic lymphocytic leukemia) (CMS/HCC) DIFFERENTIAL AUTO STAT 10/22/2019 6:5 0 AM CDT CLL (chronic lymphocytic leukemia) (CMS/HCC) CBC WITH AUTO DIFFERENTIAL STAT 10/22/2019 6:50 AM CDT CLL (chronic lymphocytic leukemia) (CMS/HCC) LACTATE DEHYDROGENASE STAT 10/22/2019 6:50 AM CDT CLL (chronic lymphocytic leukemia) (CMS/HCC) Hypogammaglobulinem ia (CMS/HCC) IGG STAT 10/22/2019 6:50 AM CDT CLL (chronic lymphocytic leukemia) (CMS/HCC) COMPREHENSIVE METABOLIC PANEL STAT 10/22/2019 6:50 AM CDT CLL (chronic lymphocytic leukemia) (CMS/HCC) documented in this encounter Results * Morphologic screen (10/22/2019 6:50 AM CDT) [facility] Morphologic Screen Original results obtained required verification by peripheral smear. [facility]ANESSA CASTRO Blood specimen (specimen) 10/22/2019 6:50 AM CDT 10/22/2019 7:13 AM CDT Burt Dos Santos MD PhD LAB BLOOD ORDERABLES Final Result [facility] Department [place] [address] * (ABNORMAL) Differential, auto (10/22/2019 6:50 AM CDT) [facility] Neutrophil abs 3.2 1.8 - 6.6 K/cumm [facility] Comment:Testing performed by : [facility], [facility] [phone] Lymphocyte abs 11.4(H) 1.2 - 3.3 K/cumm [facility] Comment:Testing performed by : [facility], [facility] [phone] Monocyte abs 1.1 0.2 - 1.2 K/cumm [facility] Comment:Testing performed by : [facility], [address] [place] [phone] Eosinophil abs 0.1 0.0 - 0.5 K/cumm VANESSA BELLA Comment:Testing performed by : [facility], [address] [place] [phone] Basophil abs 0.1 0.0 - 0.2 K/cumm VANESSA BELLA Comment:Testing performed by : [facility], [address] [place] [phone] Neutrophil pct 20.2 % VANESSA CASTRO Comment: Interpretive Data Percent cell count reference ranges are not reported, since discordance with absolute values may lead to misinterpretation of CBC data. Current Interpretive Data was last revised on 2017. Testing performed by: [facility], [address] [place] [phone] Lymphocyte pct 71.8 % [facility]ANESSA CASTRO Comment: Interpretive Data Percent cell count reference ranges are not reported, since discordance with absolute values may lead to misinterpretation of CBC data. Current Interpretive Data was last revised on 2017. Testing performed by: [facility], [address] [place] [phone] Monocyte pct 6.7 % VANESSA CASTRO Comment:Testing performed by : [facility], [address] [place] [phone] Eosinophil pct 0.8 % [facility]ANESSA CASTRO Comment:Testing performed by : [facility], [address] [place] [phone] Basophil pct 0.5 % [facility]ANESSA CASTRO Comment:Testing performed by : [facility], [address] [place] [phone] Blood specimen (specimen) 10/22/2019 6:50 AM CDT 10/22/2019 7:13 AM CDT us Burt Dos Santos MD PhD LAB BLOOD ORDERABLES Final Result [facility] BELLA [facility] Department [place] [address] * Lactate dehydrogenase (LD) (10/22/2019 6:50 AM CDT) Lactate dehydrogenase (LDH) 179 100 - 250 Units/L VANESSA BELLA Comment:Testing performed by : [facility], [address] [place] [phone] Blood specimen (specimen) 10/22/2019 6:50 AM CDT 10/22/2019 7:13 AM CDT Narrative [facility] - 10/22/2019 7:32 AM CDT Starting 10/21 Burt Dos Santos MD PhD LAB BLOOD ORDERABLES Final Result Performing Organization Address [facility] Co de Phone Number [facility] Department [place] [address] * (ABNORMAL) IgG (10/22/2019 6:50 AM CDT) [facility] Immunoglobulin G 648.0(L) 700.0 - 1,600.0 mg/dL [facility] Blood specimen (specimen) 10/22/2019 6:50 AM CDT 10/22/2019 7:39 AM CDT Narrative [facility] - 10/22/2019 8:07 AM CDT Prior to IVIG Burt Dos Santos MD PhD LAB BLOOD ORDERABLES Final Result Performing Organization Address [facility] de Phone Number [facility] [place] [address] * (ABNORMAL) CBC with auto differential (10/22/2019 6:50 AM CDT) [facility] WBC 15.9(H) 3.8 - 9.8 K/cumm [facility] Comment:Testing performed by : [facility], [address] [place] [phone] Hgb 14.0 13.8 - 17.2 g/dL [facility] Comment:Testing performed by : [facility], [address] [place] [phone] Hct 41.4 40.7 - 50.3 % [facility] Comment:Testing performed by : [facility], [address] [place] [phone] Plt 142 140 - 440 K/cumm [facility] Comment:Testing performed by : [facility], [address] [place], [place] [phone] MPV 12.0(H) 6.8 - 10.4 fL VANESSA CASTRO Comment:Testing performed by : [facility], [address] [place], [place] [phone] RBC 4.20(L) 4.50 - 5.70 M/cumm VANESSA CASTRO Comment:Testing performed by : [facility], [address] [place], [place] [phone] MCV 98.8(H) 80.0 - 97.6 fL [facility]SA [facility] Comment:Testing performed by : [facility], [address] [place], [place] [phone] MCH 33.3 26.7 - 33.7 pg [facility] Comment:Testing performed by : [place] [phone] MCHC 33.7 32.7 - 35.5 g/dL [facility] Comment:Testing performed by : [facility], [address] [place], [place] [phone] RDW CV 15.7(H) 11.8 - 14.6 % [facility] Comment:Testing performed by : [place] [phone] NRBC abs 0.02(H) 0.00 - 0.01 K/cumm [facility] Comment:Testing performed by : [facility], [address] [place], [place] [phone] Blood specimen (specimen) 10/22/2019 6:50 AM CDT 10/22/2019 7:13 AM CDT Narrative [facility] - 10/22/2019 7:17 AM CDT Prior to IVIG us Burt Dos Santos MD PhD LAB BLOOD ORDERABLES Final Result [facility] CASTRO [facility] Department [place] [address] * (ABNORMAL) Comprehensive metabolic panel (10/22/2019 6:50 AM CDT) Sodium 140 135 - 145 mmol/L [facility] Comment:Testing performed by : [facility], [address] [place] [phone] Potassium, pl 4.3 3.3 - 4.9 mmol/L [facility] Comment:Testing performed by : [facility], [address] [place] [phone] Chloride 103 97 - 110 mmol/L [facility] Comment:Testing performed by : [facility], [address] [place] [phone] CO2 30 22 - 32 mmol/L [facility] Comment:Testing performed by : [facility], [address] [place] [phone] Anion gap 7 2 - 15 mmol/L [facility] Comment:Testing performed by : [facility], [address] [place] [phone] BUN 22 8 - 25 mg/dL [facility] Comment:Testing performed by : [facility], [address] [place] [phone] Creatinine 0.82 0.80 - 1.30 mg/dL [facility] Comment:Testing performed by : [facility], [address] [place] [phone] Glucose 121 70 - 199 mg/dL [facility] Comment: Interpretive Data Fasting glucose >/= [...] was last revised 2017. Testing performed by: [facility], [address] [place] [phone] Calcium 9.4 8.5 - 10.3 mg/dL [facility] Comment:Testing performed by : [facility], [address] [place] [phone] Bilirubin, total 0.5 0.1 - 1.2 mg/dL [facility] Comment:Testing performed by : [facility], [address] [place] [phone] Protein, pl 6.2(L) 6.5 - 8.5 g/dL [facility] Comment:Testing performed by : [facility], [address] [place] [phone] Albumin 4.4 3.5 - 5.0 g/dL [facility] Comment:Testing performed by : [facility], [address] [place] [phone] Alk phos 67 40 - 130 Units/L [facility] Comment:Testing performed by : [facility], [address] [place] [phone] ALT 15 7 - 55 Units/L [facility] Comment:Testing performed by : [facility], [address] [place] [phone] AST 15 10 - 50 Units/L [facility] Comment:Testing performed by : [facility], [address] [place] [phone] Blood specimen (specimen) 10/22/2019 6:50 AM CDT 10/22/2019 7:13 AM CDT Narrative [facility] - 10/22/2019 7:32 AM CDT Prior to IVIG Burt Dos Santos MD PhD LAB BLOOD ORDERABLES Final Result Performing Organization Address City/State/[facility] Co de Phone Number [facility] [place] [address] documented in this encounter Visit Diagnoses Diagnosis CLL (chronic lymphocytic leukemia) (HCC) Chronic lymphoid leukemia, without mention of having achieved remission Hypogammaglobulinemia (HCC) Unspecified hypogammaglobulinemia documented in this encounter Orders Appointment Requests Count Last Ordered Date Fi rst Ordered Date ONCBCN LAB APPOINTMENT 1 10/22/2019 documented in this encounter Additional Health Concerns Infection Onset Date Last Indicated Resolved Time C. difficile Comment:Backloaded December 21, 2010 09/21/2010 09/21/2010 documented as of this encounter Care Teams Publications Inspector Relationship Specialty Start Date End Date Lenin Ventura MD [address] [address] PCP - General 07/06/16 Lenin Ventura MD [address] [address] 07/06/16 Burt Dos Santos MD PhD [address] [address] Medical Oncologist/Credit Assessment Analyst Medical Oncology 06/16/19 documented as of this encounter
--- OUTSIDE RECORDS SUMMARY | 2024-02-22 08:31 | XMS_ITS | Encounter Summary ---
Author Organization [facility] Address [address] [place] [address] Phone Care Team Providers Care Adobe Architect Name Role Phone Lenin Ventura MD Primary Care Provider [phone] Lenin Ventura MD Unavailable [phone] Burt Dos Santos MD PhD Unavailable [phone] Reason for Visit * Oncology (Routine) - Authorized Specialty Diagnoses / Procedures Referred By Contac t Referred To Contact Oncology Diagnoses CLL (chronic lymphocytic leukemia) (HCC) Procedures ONCBCN ARM DRAW APPT ONC LAB ONLY Burt Dos Santos MD PhD Phone: tel: fax: Burt Dos Santos MD PhD Phone: tel: fax: Referral ID Status Reason Start Date Expiration Date Visits Requested Visits Authorized [id number] Authorized Specialty Services Required 07/03/2019 03/12/2024 99 99 Encounter Details Date Type Department Care Team (Late st Contact Info) Description 03/17/2020 10:45 AM KELLER MACHINE OPERATOR Lab [facility] Oncology [facility] 7th [place] [address] [place] [address] CLL (chronic lymphocytic leukemia) (CMS/HCC); Hypogammaglobulinemia (CMS/HCC) Social History Tobacco Use Types Packs/Day Years Used Date Smoking Tobacco: Former Smokeless Tobacco: Never Alcohol Use Standard Drinks/Week Comments Not Currently 0 (1 standard drink = 0.6 oz pur e alcohol) Sex and Gender Information Value Date Recorded Sex Assigned at Not on file Legal Sex Male 9:45 AM KELLER MACHINE OPERATOR Gender Identity Not on file Sexual Orientation Not on file documented as of this encounter Plan of Treatment Not on file documented as of this encounter Procedures Procedure Name Priority Date/Time Associated Diagnosis Comments CBC WITH AUTO DIFFERENTIAL STAT 03/17/2020 10:24 AM KELLER MACHINE OPERATOR CLL (chronic lymphocytic leukemia) ([facility]) MANUAL DIFFERENTIAL STAT 03/17/2020 1 0:24 AM KELLER MACHINE OPERATOR CLL (chronic lymphocytic leukemia) ([facility]) LACTATE DEHYDROGENASE STAT 03/17/2020 10:24 AM KELLER MACHINE OPERATOR CLL (chronic lymphocytic leukemia) ([facility]) COMPREHENSIVE METABOLIC PANEL STAT 03/17/2020 10:24 AM KELLER MACHINE OPERATOR CLL (chronic lymphocytic leukemia) ([facility]) IGG STAT 03/17/2020 10:20 AM KELLER MACHINE OPERATOR CLL (chronic lymphocytic leukemia) ([facility]) Hypogammaglobulinem ia ([facility]) documented in this encounter Results * (ABNORMAL) Manual Differential (03/17/2020 10:24 AM KELLER MACHINE OPERATOR) Differential Manual [facility] Cells Counted 100 [facility] Neutrophil abs 4.4 1.7 - 6.5 K/cumm [facility] Imm gran abs 0.6(H) 0.0 - 0.1 K/cumm [facility] Lymphocyte abs 8.0(H) 0.8 - 3.3 K/cumm [facility] Monocyte abs 0.7 0.2 - 0.8 K/cumm [facility] Eosinophil abs 0.0 0.0 - 0.5 K/cumm [facility] Basophil abs 0.1 0.0 - 0.1 K/cumm [facility] Neutrophil pct 32.0 % [facility] Lymphocyte pct 58.0 % [facility] Monocyte pct 5.0 % [facility] Eosinophil pct 0.0 % [facility] Basophil pct 1.0 % [facility] Band Neutrophil pct 0.0 0.0 - 6.0 % [facility] Metamyelocyte pct 1.0(H) 0.0 - 0.0 % [facility] Myelocyte pct 3.0(H) 0.0 - 0.0 % [facility] Promyelocyte pct 0.0 0.0 - 0.0 % [facility] Variant lymph pct 0.0 0.0 - 0.0 % [facility] RBC morphology Normal [facility] Platelet estimate Adequate [facility] Blood specimen (specimen) 03/17/2020 10:24 AM KELLER MACHINE OPERATOR 03/17/2020 10:29 AM KELLER MACHINE OPERATOR Burt Dos Santos MD PhD LAB BLOOD ORDERABLES Final Result [facility] One [facility] Department [place] [address] * (ABNORMAL) CBC with auto differential (03/17/2020 10:24 AM KELLER MACHINE OPERATOR) WBC 13.7(H) 3.8 - 9.8 K/cumm [facility] Comment:Testing performed by : [facility], [address] [place] [phone] Hgb 15.0 13.8 - 17.2 g/dL VANESSA CASTRO Comment:Testing performed by : [address] [phone] Hct 44.7 40.7 - 50.3 % [facility]ANESSA CASTRO Comment:Testing performed by : [facility], [address] [place] [phone] Plt 163 140 - 440 K/cumm VANESSA CASTRO Comment:Testing performed by : [address] [phone] MPV 11.0(H) 6.8 - 10.4 fL [facility]ANESSA CASTRO Comment:Testing performed by : [address] [phone] RBC 4.57 4.50 - 5.70 M/cumm VANESSA CASTRO Comment:Testing performed by : [facility], [address] [place] [phone] MCV 97.8(H) 80.0 - 97.6 fL VANESSA CASTRO Comment:Testing performed by : [facility], [address] [place] [phone] MCH 32.8 26.7 - 33.7 pg VANESSA CASTRO Comment:Testing performed by : [facility], [address] [place] [phone] MCHC 33.5 32.7 - 35.5 g/dL [facility]SA CASTRO Comment:Testing performed by : [facility], [address] [place] [phone] RDW CV 15.1(H) 11.8 - 14.6 % [facility]ESSA CASTRO Comment:Testing performed by : [address] [phone] NRBC abs 0.02(H) 0.00 - 0.01 K/cumm VANESSA CASTRO Comment:Testing performed by : [facility], [address] [place] [phone] Blood specimen (specimen) 03/17/2020 10:24 AM KELLER MACHINE OPERATOR 03/17/2020 10:29 AM KELLER MACHINE OPERATOR Burt Dos Santos MD PhD LAB BLOOD ORDERABLES Final Result [facility] CASTRO One [facility] Department [place] [address] * (ABNORMAL) Comprehensive metabolic panel (03/17/2020 10:24 AM KELLER MACHINE OPERATOR) Sodium 140 135 - 145 mmol/L V[facility]SA CASTRO Comment:Testing performed by : [address] [phone] Potassium, pl 5.2(H) 3.3 - 4.9 mmol/L VANESSA CASTRO Comment:Testing performed by : [address] [phone] Chloride 103 97 - 110 mmol/L VANESSA CASTRO Comment:Testing performed by : [facility], [address] [place] [phone] CO2 29 22 - 32 mmol/L [facility] Comment:Testing performed by : [facility], [address] [place] [phone] Anion gap 8 2 - 15 mmol/L [facility] Comment:Testing performed by : [facility], [address] [place] [phone] BUN 28(H) 8 - 25 mg/dL [facility] Comment:Testing performed by : [facility], [address] [place] [phone] Creatinine 0.85 0.80 - 1.30 mg/dL [facility] Comment:Testing performed by : [facility], [address] [place] [phone] Glucose 104 70 - 199 mg/dL CERNER [...] was last revised 2017. Testing performed by: [facility], [address] [place] [phone] Calcium 9.7 8.5 - 10.3 mg/dL [facility] Comment:Testing performed by : [facility], [address] [place] [phone] Bilirubin, total 0.6 0.1 - 1.2 mg/dL [facility] Comment:Testing performed by : [facility], [address] [place] [phone] Protein, pl 6.9 6.5 - 8.5 g/dL [facility] Comment:Testing performed by : [facility], [address] [place] [phone] Albumin 4.8 3.5 - 5.0 g/dL [facility] Comment:Testing performed by : [facility], [address] [place] [phone] Alk phos 68 40 - 130 Units/L [facility] Comment:Testing performed by : [facility], [address] [place] [phone] ALT 20 7 - 55 Units/L [facility] Comment:Testing performed by : [facility], [address] [place] [phone] AST 17 10 - 50 Units/L [facility]ESSA [facility] Comment:Testing performed by : [facility], [address] [place] [phone] Blood specimen (specimen) 03/17/2020 10:24 AM KELLER MACHINE OPERATOR 03/17/2020 10:29 AM KELLER MACHINE OPERATOR Burt Dos Santos MD PhD LAB BLOOD ORDERABLES Final Result Performing Organization Address [facility] de Phone Number [facility] [place] [address] * Lactate dehydrogenase (LD) (03/17/2020 10:24 AM KELLER MACHINE OPERATOR) [facility] Lactate dehydrogenase (LDH) 210 100 - 250 Units/L [facility] Comment:Testing performed by : [facility], [address] [place] [phone] Blood specimen (specimen) 03/17/2020 10:24 AM KELLER MACHINE OPERATOR 03/17/2020 10:29 AM KELLER MACHINE OPERATOR Burt Dos Santos MD PhD LAB BLOOD ORDERABLES Final Result Performing Organization Address [facility] [place] [address] * (ABNORMAL) IgG (03/17/2020 10:20 AM KELLER MACHINE OPERATOR) [facility] Immunoglobulin G 513.0(L) 700.0 - 1,600.0 mg/dL [facility] Blood specimen (specimen) 03/17/2020 10:20 AM KELLER MACHINE OPERATOR 03/17/2020 10:54 AM KELLER MACHINE OPERATOR Burt Dos Santos MD PhD LAB BLOOD ORDERABLES Final Result [facility] BELLA One [facility] Department [place] [address] documented in this encounter Visit Diagnoses Diagnosis CLL (chronic lymphocytic leukemia) (HCC) Chronic lymphoid leukemia, without mention of having achieved remission Hypogammaglobulinemia (HCC) Unspecified hypogammaglobulinemia documented in this encounter Orders Outpatient Referral Count Last Ordered Date Fir st Ordered Date AMB REFERRAL TO ONCOLOGY 1 03/18/2020 Appointment Requests Count Last Ordered Date Fi rst Ordered Date ONCBCN LAB APPOINTMENT 1 03/17/2020 documented in this encounter Additional Health Concerns Infection Onset Date Last Indicated Resolved Time C. difficile Comment:Backloaded December 21, 2010 09/21/2010 09/21/2010 documented as of this encounter Care Teams Adobe Architect Relationship Specialty Start Date End Date Lenin Ventura MD [address] [address] PCP - General 07/06/16 Lenin Ventura MD [address] [address] 07/06/16 Burt Dos Santos MD PhD [address] [address] Medical Oncologist/Compacting Machine Operator/Tender Medical Oncology 06/16/19 documented as of this encounter
--- OUTSIDE RECORDS SUMMARY | 2024-02-22 08:31 | XMS_ITS | Encounter Summary ---
Author Organization [facility] Address [address] [place] [address] Phone Care Team Providers Care Light Bulb Assembler Name Role Phone Lenin Ventura MD Primary Care Provider [phone] Lenin Ventura MD Unavailable [phone] Burt Dos Santos MD PhD Unavailable [phone] Reason for Referral * MRI/CAT/PET Scan (Routine) - Closed Specialty Diagnoses / Procedures Referred By Michellac t Referred To Contact Radiology Diagnoses CLL (chronic lymphocytic leukemia) (HCC) Procedures CT Chest Abdomen Pelvis W Contrast Burt Dos Santos MD PhD Phone: tel: fax: [address] [address] Referral ID Status Reason Start Date Expiration Date Visits Re quested Visits Authorized [id number] Closed 09/08/2020 10/08/2020 1 1 * MRI/CAT/PET Scan (Routine) - Closed Specialty Diagnoses / Procedures Referred By Contguillermo t Referred To Contact Radiology Diagnoses CLL (chronic lymphocytic leukemia) (HCC) Procedures CT Neck Soft Tissue W Contrast Burt Dos Santos MD PhD Phone: tel: fax: [address] [address] Referral ID Status Reason Start Date Expiration Date Visits Re quested Visits Authorized [id number] Closed 09/08/2020 10/08/2020 1 1 Reason for Visit * Consultation (Routine) - Closed Specialty Diagnoses / Procedures Referred By Contac t Referred To Contact Oncology Diagnoses Hypogammaglobulinemia (HCC) Lenin Ventura MD [address] [address] Phone: tel: fax: Burt Dos Santos MD PhD [address] DIV IM BONE MARROW TRANSPLANT, [address] [address] Phone: tel: fax: Referral ID Status Reason Start Date Expiration Date V isits Requested Visits Authorized [id number] Closed Specialty Services Required 07/16/2019 07/10/2020 12 12 Encounter Details Date Type Department Care Team (Late st Contact Info) Description 06/09/2020 10:00 AM CDT Office Visit [facility] Bone Marrow Transplant [address] [facility] Advanced Medicine 7th Floor, [place] [id number] Burt Dos Santos MD PhD [address] DIV IM BONE MARROW TRANSPLANT, [address] [address] CLL (chronic lymphocytic leukemia) ([facility]/HCC) Social History Tobacco Use Types Packs/Day Years Used Date Smoking Tobacco: Former Smokeless Tobacco: Never Alcohol Use Standard Drinks/Week Comments Not Currently 0 (1 standard drink = 0.6 oz pur e alcohol) Sex and Gender Information Value Date Recorded Sex Assigned at Not on file Legal Sex Male 9:45 AM INDUSTRIAL WORKERS Gender Identity Not on file Sexual Orientation Not on file documented as of this encounter Last Filed Vital Signs Vital Sign Reading Time Taken Comments Blood Pressure 132/83 06/09/2020 9:26 AM CDT Pulse 71 06/09/2020 9:26 AM CDT Temperature 36.6 ??C (97.9 ??F) 06/09/2020 9:26 AM CD T Respiratory Rate 16 06/09/2020 9:26 AM CDT Oxygen Saturation 96% 06/09/2020 9:26 AM CDT Inhaled Oxygen Concentration - - Weight 131 kg (288 lb 12.8 oz) 06/09/2020 9:26 A M CDT Height 188 cm (6' 2 ) 06/09/2020 9:26 AM CDT Body Mass Index 37.08 06/09/2020 9:26 AM CDT documented in this encounter Progress Notes * Magali Stapleton, BUSINESS ANALYTICS ANALYST - 06/09/2020 10:00 AM CDT BMT Progress Note Oncology History CLL (chronic lymphocytic leukemia) ([facility]) 07/03/2005 Initial Diagnosis Lymphoma, small [...] then q2mo x 4; on clinical trial [facility] [id number] --> stable disease on CT; marrow 30-40% [...] Abdullahi returns for scheduled follow up. He follows with ENT for hearing problems. He still hasproblems with his hearing. He also has sinus issues. He denies fevers, chills. He has no nausea, vomiting, diarrhea. He has not noticed any new lumps or bumps. He last got IVIG in December 2019..He got his second COVID vaccine 10 days ago. Outpatient Encounter Medications as of 06/09/2020: ??? acyclovir (ZOVIRAX) 200 mg capsule, Take 2 capsules (400 mg total) by mouth 2 (two) times a day, Disp: 180 capsule, Rfl: 3 ? ? al & mag hydroxide with hsqmhpxzdkr-olvkwmyksydyqqq-dijobhbhj (MAGIC MOUTHWASH) suspension 1-1-1, Swish and spit 15 mL every 4 (four) hours as needed (mouth sores), Disp: 250 mL, Rfl: 0 ??? ALPRAZolam (XANAX) 0.25 mg tablet, Take 0.5-1 tablets by mouth 3 (three) times a day as needed for anxiety, Disp: , Rfl: ??? amoxicillin-clavulanate (AUGMENTIN) 875-125 mg per tablet, TK 1 T PO BID, Disp: , Rfl: ??? cholecalciferol (cholecalciferol) 1000 unit tablet, Take 1 tablet (1,000 Units total) by mouth daily, Disp: 30 tablet, Rfl: 11 ??? cyanocobalamin (Vitamin B-12) 1,000 mcg tablet, Take 1 tablet (1,000 mcg total) by mouth daily,Disp: 30 tablet, Rfl: 11 ??? doxycycline 100 mg tablet, Take 100 mg by mouth 2 (two) times a day, Disp: , Rfl: ??? fluticasone (FLONASE) 50 mcg/actuation nasal spray, Administer 2 sprays into each nostril daily, Disp: , Rfl: ??? ibrutinib (Imbruvica) 420 mg tablet, Take 1 tablet (420 mg total) by mouth daily, Disp: 90 tablet, Rfl: 3 ??? magnesium oxide (MAG-OX) 250 [...] mg tablet, , Disp: , Rfl: ??? zinc 50 mg tablet, Take 50 mg by mouth daily, Disp: 30 each, Rfl: 0 Performance Status: 1 Objective Vitals: BP: 132/83 Temp: 36.6 ??C (97.9 ??F) Temp src: Temporal Pulse: 71 Resp: 16 SpO2: 96 % Height: 188 cm (6' 2 ) Weight: 131 kg (288 lb 12.8 oz) Physical exam: In no acute distress HEENT:schlera white Lungs:CTA tawny Heart:RRR Abdomen:soft, non-tender Extremities:no edema Skin:no rash Neuro:no focal deficits Nodes: previously palpable sub-mental LAD is now resolved. Lab/Radiology/Diagnostic Review: CBC: Lab Results Component Value Date/Time WBC 17.3 (H) 06/09/2020 09:14 AM WBC 13.7 (H) 04/10/2019 03:03 PM HGB 13.6 (L) 06/09/2020 09:14 AM HGB 14.2 04/10/2019 03:03 PM HCT 41.1 06/09/2020 09:14 AM HCT 41.2 04/10/2019 03:03 PM LABPLAT 142 06/09/2020 09:14 AM LABPLAT 158 04/10/2019 03:03 PM NEUTROABS 4.8 06/09/2020 09:14 AM NEUTROABS 4,590 04/10/2019 03:03 PM CMP: Lab Results Component Value Date/Time SODIUM 138 06/09/2020 09:14 AM POTASSIUM 4.8 06/09/2020 09:14 AM CO2 29 06/09/2020 09:14 AM BUNSER 19 06/09/2020 09:14 AM GLUCOSE 120 06/09/2020 09:14 AM CREATININE 0.85 06/09/2020 09:14 AM CALCIUM 9.9 06/09/2020 09:14 AM CHLORIDE 103 06/09/2020 09:14 AM ALBUMIN 4.7 06/09/2020 09:14 AM AST 14 06/09/2020 09:14 AM ALT 15 06/09/2020 09:14 AM ALKPHOS 72 06/09/2020 09:14 AM BILITOT 0.7 06/09/2020 09:14 AM PROT 6.4 (L) 06/09/2020 09:14 AM ANIONGAP 6 06/09/2020 09:14 AM LDH: Lab Results Component Value Date/Time LDH 203 06/09/2020 09:14 AM Radiology None today Assessment and Plan: Mr. Abdullahi is a [...] ibrutinib, otherwise doing well. Will RTC in 3 months, and will call if any new infections arise. ?? 2.?Recurrent sinus infections. We will continue to moniter his IgG, 369 today. He had his second COVID vaccine 10 days ago. We will start IVIG in 4 weeks. We will give 6 monthly cycles. ?? 3.?Thyroid nodule.?We will continue to follow this expectantly. ?? As always, the patient knows to contact our office with any questions or concerns in the interim. Cosigned by Burt Dos Santos MD PhD at 06/09/2020 1:29 PM CDT documented in this encounter Nursing Notes * Roberta Burnett RN - 06/09/2020 10:00 AM CDT ROV with Magali for TAF. He got his COVID shot. Mouth sores went away with saline rinses. IgG low, will restart in July, about 4 weeks post his COVID vaccine on 07/07. ROV with us with scans in September documented in this encounter Plan of Treatment Not on file documented as of this encounter Results * (ABNORMAL) IgG (09/08/2020 10:16 AM CDT) Pathologist [facility] Immunoglobulin G 537.0(L) 700.0 - 1,600.0 mg/dL [facility] Blood specimen (specimen) 09/08/2020 10:16 AM CDT 09/08/2020 10:30 AM CDT Burt Dos Santos MD PhD LAB BLOOD ORDERABLES Final Result [facility] Department [place] [address] * (ABNORMAL) Comprehensive metabolic panel (09/08/2020 10:16 AM CDT) [facility] Sodium 134(L) 135 - 145 mmol/L [facility] Comment:Testing performed by : [facility], [address] [place] [phone] Potassium, pl 5.2(H) 3.3 - 4.9 mmol/L [facility] Comment: Hemolyzed; result may be falsely elevated. Testing performed by: [facility], [address] [place] [phone] Chloride 101 97 - 110 mmol/L [facility] Comment:Testing performed by : [facility], [address] [place] [phone] CO2 27 22 - 32 mmol/L [facility] Comment:Testing performed by : [facility], [address] [place] [phone] Anion gap 6 2 - 15 mmol/L [facility] Comment:Testing performed by : [facility], [address] [place] [phone] BUN 19 8 - 25 mg/dL [facility] Comment:Testing performed by : [facility], [address] [place] [phone] Creatinine 0.67(L) 0.80 - 1.30 mg/dL [facility] Comment:Testing performed by : [address] [phone] Glucose 127 70 - 199 mg/dL [facility] Comment: [...] was last revised 2017. Testing performed by: [place] [phone] Calcium 9.2 8.5 - 10.3 mg/dL [facility] Comment:Testing performed by : [address] [address] Bilirubin, total 0.6 0.1 - 1.2 mg/dL [facility] Comment:Testing performed by : [address] [address] Protein, pl 6.7 6.5 - 8.5 g/dL [facility] Comment:Testing performed by : [address] [address] Albumin 4.3 3.5 - 5.0 g/dL [facility] Comment:Testing performed by : [address] [phone] Alk phos 79 40 - 130 Units/L [facility] Comment:Testing performed by : [address] [phone] ALT 14 7 - 55 Units/L [facility] Comment:Testing performed by : [address] [address] AST 24 10 - 50 Units/L [facility] Comment: Hemolyzed; result may be falsely elevated. Testing performed by: [address] [address] Blood specimen (specimen) 09/08/2020 10:16 AM CDT 09/08/2020 10:17 AM CDT Burt Dos Santos MD PhD LAB BLOOD ORDERABLES Final Result [facility] [place] [place] [address] * (ABNORMAL) CBC with auto differential (09/08/2020 10:16 AM CDT) WBC 15.7(H) 3.8 - 9.8 K/cumm [facility] Comment:Testing performed by : [address] [address] Hgb 14.0 13.8 - 17.2 g/dL [facility] Comment:Testing performed by : [address] [address] Hct 40.8 40.7 - 50.3 % [facility] Comment:Testing performed by : [address] [address] Plt 178 140 - 440 K/cumm [facility] Comment:Testing performed by : [address] [address] MPV 11.8(H) 6.8 - 10.4 fL [facility] Comment:Testing performed by : [address] [address] RBC 4.27(L) 4.50 - 5.70 M/cumm [facility] Comment:Testing performed by : [address] [address] MCV 95.5 80.0 - 97.6 fL [facility] Comment:Testing performed by : [address] [address] MCH 32.7 26.7 - 33.7 pg [facility] Comment:Testing performed by : [address] [address] MCHC 34.3 32.7 - 35.5 g/dL [facility] Comment:Testing performed by : [facility], [address] [facility] [address] RDW CV 16.0(H) 11.8 - 14.6 % [facility] Comment:Testing performed by : [facility], [address] [place] [phone] NRBC abs 0.03(H) 0.00 - 0.01 K/cumm [facility] Comment:Testing performed by : [facility], [address] [place] [phone] Blood specimen (specimen) 09/08/2020 10:16 AM CDT 09/08/2020 10:17 AM CDT Burt Dos Santos MD PhD LAB BLOOD ORDERABLES Final Result [facility] Department [place] [address] * CT Chest Abdomen Pelvis W Contrast [...] suspicious lytic or blastic lesion. Procedure Note Short, Adam Gómez MD - 09/08/2020 EXAMINATION: Computed [...] are normal. The limited view of the [place] is unremarkable. The visualized portions [...] are normal. The limited view of the [place] is unremarkable. The visualized portions [...] leukemia, without mention of having achieved remission CLL (chronic lymphocytic leukemia) (HCC) Chronic lymphoid leukemia, without mention of having achieved remission documented in this encounter Historical Medications * This list may reflect changes made after this encounter. doxycycline 100 mg tabletIndications: CLL (chronic lymphocytic leukemia) (HCC) Take 100 mg by mouth 2 (two) times a day 04/11/2020 02/12/2022 added in this encounter Orders Appointment Requests Count Last Ordered Date Fi rst Ordered Date INFUSION APPT REQUEST 300 MIN 6 12/01/2020 07/07/2020 ONCBCN CLINIC APPOINTMENT REQUEST 2 021 06/09/2020 ONCBCN LAB APPOINTMENT 1 09/08/2020 documented in this encounter Additional Health Concerns Infection Onset Date Last Indicated Resolved Time C. difficile Comment:Backloaded December 21, 2010 09/21/2010 09/21/2010 documented as of this encounter Care Teams Light Bulb Assembler Relationship Specialty Start Date End Date Lenin Ventura MD [address] [place] [address] PCP - General 07/06/16 Lenin Ventura MD [address] [address] 07/06/16 Burt Dos Santos MD PhD [address] [address] Medical Oncologist/Fire Department Marine Engineer Medical Oncology 06/16/19 documented as of this encounter
--- OUTSIDE RECORDS SUMMARY | 2024-02-22 08:31 | XMS_ITS | Encounter Summary ---
Author Organization [facility] Address [address] [place] [address] Phone Care Team Providers Care Directional Drill Operator Name Role Phone Lenin Ventura MD Primary Care Provider [phone] Lenin Ventura MD Unavailable [phone] Brut Dos Santos MD PhD Unavailable [phone] Reason for Visit * Episode Based Medications (Routine) - Authorized Specialty Diagnoses / Procedures Referred By Contguillermo t Referred To Contact Diagnoses Hypogammaglobulinemia (HCC) Procedures [place] GAMUNEX-C/GAMMAKED GAMUNEX Burt Dos Santos MD PhD [address] DIV IM BONE MARROW TRANSPLANT, [address] [place] [address] Phone: tel: fax: [facility] and [facility] [place] [id number] [facility] 7th [place] [address] Phone: tel: Referral ID Status Reason Start Date Expiration Date V isits Requested Visits Authorized [id number] Authorized 10/19/2019 08/02/2024 1 38 Encounter Details Date Type Department Care Team (Late st Contact Info) Description 10/22/2019 7:30 AM CDT Infusion [facility] Oncology [address] [place] [address] [place] [address] CLL (chronic lymphocytic leukemia) (CMS/HCC) (Primary Dx); Hypogammaglobulinemia (CMS/HCC) Social History Tobacco Use Types Packs/Day Years Used Date Smoking Tobacco: Former Smokeless Tobacco: Never Alcohol Use Standard Drinks/Week Comments Not Currently 0 (1 standard drink = 0.6 oz pur e alcohol) Sex and Gender Information Value Date Recorded Sex Assigned at Not on file 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 Gender Identity Not on file Sexual Orientation Not on file documented as of this encounter Last Filed Vital Signs Vital Sign Reading Time Taken Comments Blood Pressure 127/78 10/22/2019 10:20 AM CDT Pulse 75 10/22/2019 10:20 AM CDT Temperature 36.9 ??C (98.5 ??F) 10/22/2019 10:20 AM C DT Respiratory Rate 18 10/22/2019 10:20 AM CDT Oxygen Saturation 97% 10/22/2019 10:20 AM CDT Inhaled Oxygen Concentration - - Weight 124 kg (273 lb 6.4 oz) 10/22/2019 7:38 AM CDT Height - - Body Mass Index 33.28 07/31/2019 7:57 AM CDT documented in this encounter Nursing Notes * Eulalia Velásquez, ALICIA - 10/22/2019 7:30 AM CDT Patient tolerated IVIG well. VSS. Patient has schedule. Ambulatory at discharge. documented in this encounter Plan of Treatment [...] mg 650 mg, oral, Once, On [place] 10/22/19 at 0845, For 1 dose, Please give 30 minutes prior to IVIG.Indications:Hypogamm aglobulinemia (HCC) Given 10/22/2019 8:02 AM CDT 650 mg dextrose 5% infusion 20 mL/hr, intravenous, As needed, As needed- back up fluids for infusions, Starting on [place] 10/22/19 at 0828Indications:Hypogamma globulinemia (HCC),CLL (chronic lymphocytic leukemia) (HCC) New Bag 10/22/2019 8:31 AM CDT 20 mL/hr 20 mL/hr diphenhydrAMINE (BENADRYL) tab/cap 25 mg 25 mg, oral, Once, On [place] 10/22/19 at 0845, For 1 dose, Give 30 minutes prior to IVIG.Indications:Hypogamm aglobulinemia (HCC) Given 10/22/2019 8:02 AM CDT 25 mg immune globulin (GAMUNEX-C,GAMMAKED) 10 % infusion 35 g 35 g (rounded from 34.72 g = 400 mg/kg ? 86.8 kg [place] weight), intravenous, Once, On [place] 10/22/19 at 0915, For 1 dose, GamuNEX C SUBSEQUENT Infusion, 15 Minute Titration Patient Weight: 86.8 kg Initiate Infusion at 0.6 mL/kg/hr. ??If [...] weight is less than ideal body weight, [facility] pharmacies to adjust doses to use the actual body weight per P&T approved protocol. pharmacies to call prescriber for dose adjustments.Indications:H ypogammaglobulinemia (HCC) Rate/Dose Change 10/22/2019 10:20 AM CDT 364 mL/hr Rate/Dose Change 10/22/2019 10:03 AM CDT 312 mL /hr Rate/Dose Change 10/22/2019 9:44 AM CDT 260 mL/ hr sodium chloride 0.9% flush 10 mL 10 mL, intravenous, As needed, line care, Starting on [place] 10/22/19 at 0828, Flush pre and post IV catheter use.Indications:Hypogammaglobulinemia (HCC),CLL (chronic lymphocytic leukemia) (HCC) Given 10/22/2019 8: 31 AM CDT 10 mL documented in this encounter Orders Nursing Count Last Ordered Date First Orde red Date ONCBCN NURSING COMMUNICATION [id number] 2 0 10/22/2019 VITAL SIGNS INTRA-INFUSION 1 10/22/2019 Appointment Requests Count Last Ordered Date Fi rst Ordered Date INFUSION APPT REQUEST 300 MIN 1 10/22/2019 documented in this encounter Additional Health Concerns Infection Onset Date Last Indicated Resolved Time C. difficile Comment:Backloaded December 21, 2010 09/21/2010 09/21/2010 documented as of this encounter Care Teams Directional Drill Operator Relationship Specialty Start Date End Date Lenin Ventura MD [address] [address] PCP - General 07/06/16 Lenin Ventura MD [address] [address] 07/06/16 Burt Dos Santos MD PhD [address] [id number] Medical Oncologist/Stain Maker Medical Oncology 06/16/19 documented as of this encounter
--- OUTSIDE RECORDS SUMMARY | 2024-02-22 08:31 | XMS_ITS | Encounter Summary ---
Author Organization [facility] Address [address] [place] [address] Phone Care Team Providers Care Bakery Team Leader Name Role Phone Lenin Ventura MD Primary Care Provider [phone] Lenin Ventura MD Unavailable [phone] Burt Dos Santos MD PhD Unavailable [phone] Reason for Visit * Episode Based Medications (Routine) - Authorized Specialty Diagnoses / Procedures Referred By Contguillermo t Referred To Contact Diagnoses Hypogammaglobulinemia (HCC) Procedures [place] GAMUNEX-C/GAMMAKED GAMUNEX Burt Dos Santos MD PhD [address] DIV IM BONE MARROW TRANSPLANT, [address] [place] [address] Phone: tel: fax: [facility] at [facility] and [place] [address] [facility] 7th [place] [address] Phone: tel: Referral ID Status Reason Start Date Expiration Date V isits Requested Visits Authorized [id number] Authorized 10/19/2019 08/02/2024 1 38 Encounter Details Date Type Department Care Team (Late st Contact Info) Description 10/06/2020 7:30 AM CDT Infusion [facility] Oncology [address] [place] [address] [place] [address] CLL (chronic lymphocytic leukemia) (CMS/HCC) (HCC) (Primary Dx); Hypogammaglobulinemia (CMS/HCC) (HCC) Social History Tobacco Use Types Packs/Day Years Used Date Smoking Tobacco: Former Smokeless Tobacco: Never Alcohol Use Standard Drinks/Week Comments Not Currently 0 (1 standard drink = 0.6 oz pur e alcohol) Sex and Gender Information Value Date Recorded Sex Assigned at Not on file 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 Gender Identity Not on file Sexual Orientation Not on file documented as of this encounter Last Filed Vital Signs Vital Sign Reading Time Taken Comments Blood Pressure 118/67 10/06/2020 10:56 AM CDT Pulse 72 10/06/2020 10:56 AM CDT Temperature 37 ??C (98.6 ??F) 10/06/2020 10:56 AM CDT Respiratory Rate 18 10/06/2020 10:56 AM CDT Oxygen Saturation 95% 10/06/2020 10:56 AM CDT Inhaled Oxygen Concentration - - Weight 131.4 kg (289 lb 11 oz) 10/06/2020 7:49 A M CDT Height - - Body Mass Index 37.19 09/08/2020 10:31 AM CDT documented in this encounter Nursing Notes * Chelly Barr, RN - 10/06/2020 7:30 AM CDT Oncology Nursing Note [facility] Jeffada Gomez Claariadnajennifer is a 70 y.o. male who presents for IVIG treatment 10. Pre-treatment Nursing Assessment Nursing Assessment Appetite:: Good Diarrhea:: Yes (Intermittent, managing with home medications) Constipation:: Yes Existing Patients: Any falls since your last visit? : No New Patients: Any falls since your last visit? : N/A Fatigue:: Occassional Mouth Sores:: No Nausea/Vomiting:: No Pain:: No Peripheral Neuropathy: : No Pt states has potential to be ? : N/A Shortness of Breath?: No Skin Condition/Temp: Warm, Dry Swelling:: No Additional Notes: na BP: 118/67 Temp: 37 ??C (98.6 ??F) Temp src: Transdermal Pulse: 72 Resp: 18 SpO2: 95 % Weight: 131.4 kg (289 lb 11 oz) Pain Score: 0 - No pain Treatment Patient: met treatment parameters Pre blood return: Brisk Jeff Abdullahi tolerated treatment well. Additional Notes: na Post blood return: Brisk IV access post [...] mg 650 mg, oral, Once, On [place] 10/06/20 at 0845, For 1 dose, Please give 30 minutes prior to IVIG.Indications:Hypogamm aglobulinemia (HCC) Given 10/06/2020 8:16 AM CDT 650 mg diphenhydrAMINE (BENADRYL) tab/cap 25 mg 25 mg, oral, Once, On [place] 10/06/20 at 0845, For 1 dose, Give 30 minutes prior to IVIG.Indications:Hypogamm aglobulinemia (HCC) Given 10/06/2020 8:16 AM CDT 25 mg immune globulin (GAMUNEX-C,GAMMAKED) 10 % infusion 35 g 35 g (rounded from 32.88 g = 400 mg/kg ? 82.2 kg [place] weight), intravenous, Once, On [place] 10/06/20 at 0845, For 1 dose, GamuNEX C [...] of 4.8 mL/kg/hrIndications:Hypog ammaglobulinemia (HCC) Rate/Dose Change 10/06/2020 10:38 AM CDT 345 mL/hr Rate/Dose Change 10/06/2020 10:21 AM CDT 296 mL /hr Rate/Dose Change 10/06/2020 10:01 AM CDT 247 mL /hr documented in this encounter Orders Nursing Count Last Ordered Date First Orde red Date ONCBCN NURSING COMMUNICATION [id number] 2 0 10/06/2020 VITAL SIGNS INTRA-INFUSION 1 10/06/2020 Appointment Requests Count Last Ordered Date Fi rst Ordered Date INFUSION APPT REQUEST 300 MIN 1 10/06/2020 documented in this encounter Additional Health Concerns Infection Onset Date Last Indicated Resolved Time C. difficile Comment:Backloaded December 21, 2010 09/21/2010 09/21/2010 documented as of this encounter Care Teams Bakery Team Leader Relationship Specialty Start Date End Date Lenin Ventura MD [address] [address] PCP - General 07/06/16 Lenin Ventura MD [address] [id number] 07/06/16 Burt Dos Santos MD PhD [address] [address] Medical Oncologist/Aircraft Machinist Helper Medical Oncology 06/16/19 documented as of this encounter
--- OUTSIDE RECORDS SUMMARY | 2024-02-22 08:31 | XMS_ITS | Encounter Summary ---
Author Organization [facility] Address [address] [place] [address] Phone Care Team Providers Care Manager Customer Service Name Role Phone Lenin Ventura MD Primary Care Provider + [phone] Lenin Ventura MD Unavailable [phone] Burt Dos Santos MD PhD Unavailable [phone] Encounter Details Date Type Department Care Team (Late st Contact Info) Description 03/23/2020 Telephone [facility] Bone Marrow Transplant [address] [facility] 7th Floor, [place] [address] Burt Dos Satnos MD PhD [address] IM BONE MARROW TRANSPLANT, [address] [place], [place] [id number] Social History Tobacco Use Types Packs/Day Years Used Date Smoking Tobacco: Former Smokeless Tobacco: Never Alcohol Use Standard Drinks/Week Comments Not Currently 0 (1 standard drink = 0.6 oz pur e alcohol) Sex and Gender Information Value Date Recorded Sex Assigned at Not on file 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 No further questions WARE DESIGNER documented in this encounter Plan of Treatment Not on file documented as of this encounter Visit Diagnoses Not on filedocumented in this encounter Additional Health Concerns Infection Onset Date Last Indicated Resolved Time C. difficile Comment:Backloaded December 21, 2010 09/21/2010 09/21/2010 documented as of this encounter Care Teams Manager Customer Service Relationship Specialty Start Date End Date Lenin Ventura MD [address] [email or web address] [address] [place] [address] PCP - General 07/06/16 Lenin Ventura MD [address] [email or web address] [address] [place] [address] 07/06/16 Burt Dos Santos MD PhD [address] [address] Medical Oncologist/[employer] Medical Oncology 06/16/19 documented as of this encounter
--- OUTSIDE RECORDS SUMMARY | 2024-02-22 08:31 | XMS_ITS | Encounter Summary ---
Author Organization [facility] Address [address] [place] [address] Phone Care Team Providers Care Call Or Contact Centre Manager Name Role Phone Lenin Ventura MD Primary Care Provider [phone] Lenin Ventura MD Unavailable [phone] Burt Dos Santos MD PhD Unavailable [phone] Encounter Details Date Type Department Care Team (Late st Contact Info) Description 01/22/2020 Orders Only [facility] Bone Marrow Transplant [address] [facility] Advanced Medicine 7th Floor, [place] [address] Basil Higginbotham MD [address] IM BONE MARROW TRANSPLANT[address] [place], [place] [id number] CLL (chronic lymphocytic leukemia) ([facility]) Social History Tobacco Use Types Packs/Day Years Used Date Smoking Tobacco: Former Smokeless Tobacco: Never Alcohol Use Standard Drinks/Week Comments Not Currently 0 (1 standard drink = 0.6 oz pur e alcohol) Sex and Gender Information Value Date Recorded Sex Assigned at Not on file Legal Sex Male 9:[address] Gender Identity Not on file Sexual Orientation Not on file documented as of this encounter Ordered Prescriptions Prescription Sig Dispense Quantity Refills Last Filled Start Date End Date ibrutinib (Imbruvica) 420 mg tabletIndications: CLL (chronic lymphocytic leukemia) ([facility]) Take 1 tablet (420 mg total) by mouth daily 90 tablet 3 01/22/2020 02/06/2021 documented in this encounter Plan of Treatment [...] tablet (420 mg total) by mouth daily Reorder 01/05/2020 01/22/2020 documented as of this encounter Additional Health Concerns Infection Onset Date Last Indicated Resolved Time C. difficile Comment:Backloaded December 21, 2010 09/21/2010 09/21/2010 documented as of this encounter Care Teams Call Or Contact Centre Manager Relationship Specialty Start Date End Date Lenin Ventura MD [address] [employer] [address] PCP - General 07/06/16 Lenin Ventura MD [address] [address] 07/06/16 Burt Dos Santos MD PhD [address] [address] Medical Oncologist/Judicial Clerk Medical Oncology 06/16/19 documented as of this encounter
--- OUTSIDE RECORDS SUMMARY | 2024-02-22 08:31 | XMS_ITS | Encounter Summary ---
Author Organization [facility] Address [address] [place] [address] Care Team Providers Care Community Relations Representative Name Role Phone Lenin Ventura MD Primary Care Provider [phone] Lenin Ventura MD Unavailable [phone] Burt Dos Santos MD PhD Unavailable [phone] Reason for Referral * MRI/CAT/PET Scan (Routine) - Closed Specialty Diagnoses / Procedures Referred By Contac t Referred To Contact Radiology Diagnoses CLL (chronic lymphocytic leukemia) (HCC) Procedures CT soft tissue neck with contrast Magali Stapleton NP Phone: tel: fax: [address] [address] Referral ID Status Reason Start Date Expiration Date Visits Re quested Visits Authorized [id number] Closed 09/17/2019 10/17/2019 1 1 * MRI/CAT/PET Scan (Routine) - Closed Specialty Diagnoses / Procedures Referred By Contguillermo t Referred To Contact Radiology Diagnoses CLL (chronic lymphocytic leukemia) (HCC) Procedures CT chest abdomen pelvis with contrast Magali Stapleton NP Phone: tel: fax: [address] [address] Referral ID Status Reason Start Date Expiration Date Visits Re quested Visits Authorized [id number] Closed 09/17/2019 10/17/2019 1 1 Reason for Visit * MRI/CAT/PET Scan (Routine) - Closed Specialty Diagnoses / Procedures Referred By Trent t Referred To Contact Radiology Diagnoses CLL (chronic lymphocytic leukemia) ([facility]) Procedures CT chest abdomen pelvis with contrast Magali Stapleton NP Phone: tel: fax: [address] [address] Referral ID Status Reason Start Date Expiration Date Visits Re quested Visits Authorized [id number] Closed 09/17/2019 10/17/2019 1 1 Encounter Details Date Type Department Care Team (Latest Contact Info) Description 09/17/2019 7:40 AM CDT - 09/17/2019 11:59 PM CDT Hospital Encounter [facility] [address] [place] [address] Annita Wiley MD [address] IM BONE MARROW TRANSPLANT, [address] [address] Magali Stapleton NP [address] IM BONE MARROW TRANSPLANT, [address] [address] CLL (chronic lymphocytic leukemia) ([facility]) Discharge Disposition: Discharge to home or self care Social History Tobacco Use Types Packs/Day Years Used Date Smoking Tobacco: Former Smokeless Tobacco: Never Alcohol Use Standard Drinks/Week Comments Not Currently 0 (1 standard drink = 0.6 oz pur e alcohol) Sex and Gender Information Value Date Recorded Sex Assigned at Not on file 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 Gender Identity Not on file Sexual Orientation Not on file documented as of this encounter Medications at Time of Discharge ALPRAZolam (XANAX) 0.25 mg tablet Take 0.5-1 tablets (0.125-0.25 mg total) by mouth 3 (three) times a day as needed for anxiety 05/18/2019 cholecalciferol (cholecalciferol) 1000 unit tabletIndications :Vitamin D deficiency Take 1 tablet (1,000 Units total) by mouth daily 30 tablet 11 06/25/2019 cyanocobalamin (Vitamin B-12) 1,000 mcg tabletIndications :Prevention of Vitamin B12 Deficiency Take 1 tablet (1,000 mcg total) by mouth daily 30 tablet 11 06/25/2019 fluticasone (FLONASE) 50 mcg/actuation nasal spray Administer [...] irrigations 3x's daily 30 g 3 06/23/2019 zinc 50 mg tabletIndications :Zinc deficiency Take 50 mg by mouth daily 30 each 06/25/2019 acyclovir (ZOVIRAX) 200 mg capsuleIndication s:CLL (chronic lymphocytic leukemia) ([facility]) Take 2 capsules by mouth twice daily 180 capsule 3 05/01/2019 0 cetirizine (ZyrTEC) 10 mg chewable tabletIndications :CLL (chronic lymphocytic leukemia) (HCC) Take 10 mg by mouth daily 0 Imbruvica 420 mg tabletIndications :CLL (chronic lymphocytic leukemia) (HCC) TAKE ONE TABLET BY MOUTH ONCE DAILY 28 tablet 08/26/2019 0 predniSONE (DELTASONE) 50 mg tablet Take 50 mg by mouth daily 0 ranitidine (ZANTAC) 150 mg capsule Take 150 mg by mouth daily 0 documented as of this encounter Discharge Disposition Disposition Code Departure Means Destination Discharge to home or self care documented in this encounter Plan of Treatment Not on file documented as of this encounter Procedures Procedure Name Priority Date/Time Associated Diagnosis Comments CT CHEST ABDOMEN PELVIS W CONTRAST Schedule Routine, Read Routine (OP Routine) 09/17/2019 8:13 AM CDT CLL (chronic lymphocytic leukemia) ([facility]/H[facility]) CT SOFT TISSUE NECK W CONTRAST Schedule Routine, Read Routine (OP Routine) 09/17/2019 8:13 AM CDT CLL (chronic lymphocytic leukemia) ([facility]) documented in this encounter Results * CT soft tissue neck with contrast (09/17/2019 8:13 AM CDT) Anatomical Region Laterality Modality Head and Neck N/A Computed Tomogra phy 09/17/2019 8:47 AM CDT Impressions 09/17/2019 10:17 AM CDT Diffuse lymphadenopathy throughout all cervical mojgan stations, which is slightly improved since 10/09/2018. Dictated by: Paul Huertas M.D. The radiology attending physician has personally reviewed this study, and had reviewed and/or edited this written report and agrees with it. Electronically signed by: Giovani Rivera M.D. Narrative 09/17/2019 10:17 AM CDT EXAMINATION: CT of the neck with contrast HISTORY: 69-year-old man with chronic lymphocytic leukemia. TECHNIQUE: CT of the neck was performed according to standard protocol after the uneventful administration of intravenous contrast. Contrast information: 50 mL Optiray-350 COMPARISON: CT soft tissue neck dated 10/09/2018 and 04/10/2018. FINDINGS: Review of the topogram demonstrates no abnormality. ??Lymphadenopathy is redemonstrated throughout all stations of the bilateral neck. Many lymph nodes are unchanged in size, with interval decrease in size of several lymph nodes, for reference a left supraclavicular lymph node (series 2, image 98) which measures 1 x 1 cm, previously 1.2 x 1.2 cm and a left level 1B lymph node (image 75) which measures 1.6 x 1.4 cm, previously 2.1 x 1.4 cm. ??The muscles of the neck are normal. Vessels of the neck demonstrate normal course and caliber. Fascial planes are preserved and the deep spaces of the neck are normal. The visualized airway is widely patent. The base of the skull and the temporal bones are normal. Limited views of the brain including the cerebellum and brainstem are normal. The limited view of the [place] is unremarkable. The visualized portions [...] superior mediastinum, sub-pectoral regions, and visualized axillae. Procedure Note Giovani Rivera MD - 09/17/2019 EXAMINATION: CT of the neck with contrast HISTORY: 69-year-old man with chronic lymphocytic leukemia. TECHNIQUE: CT of the neck was performed according to standard protocol after the uneventful administration of intravenous contrast. Contrast information: 50 mL Optiray-350 COMPARISON: CT soft tissue neck dated 10/09/2018 and 04/10/2018. FINDINGS: Review of the topogram demonstrates no abnormality. Lymphadenopathy is redemonstrated throughout all stations of the bilateral neck. Many lymph nodes are unchanged in size, with interval decrease in size of several lymph nodes, for reference a left supraclavicular lymph node (series 2, image 98) which measures 1 x 1 cm, previously 1.2 x 1.2 cm and a left level 1B lymph node (image 75) which measures 1.6 x 1.4 cm, previously 2.1 x 1.4 cm. The muscles of the neck are normal. Vessels of the neck demonstrate normal course and caliber. Fascial planes are preserved and the deep spaces of the neck are normal. The visualized airway is widely patent. The base of the skull and the temporal bones are normal. Limited views of the brain including the cerebellum and brainstem are normal. The limited view of the [place] is unremarkable. The visualized portions [...] superior mediastinum, sub-pectoral regions, and visualized axillae. IMPRESSION: Diffuse lymphadenopathy throughout all cervical mojgan stations, which is slightly improved since 10/09/2018. Dictated by: Paul Huertas M.D. The radiology attending physician has personally reviewed this study, and had reviewed and/or edited this written report and agrees with it. Electronically signed by: Giovani Rivera M.D. Magali Phelan [place] REVIEW SPECIALIST IMG CT PROCEDURES Final Result * CT chest abdomen pelvis with contrast (09/17/2019 8:13 AM CDT) Anatomical Region Laterality Modality Body N/A Computed Tomogra phy 09/17/2019 9:40 AM CDT Impressions 09/17/2019 10:22 AM CDT 1. ??No substantial change in burden of mediastinal, abdominal and pelvic lymphadenopathy in keeping with patient's known lymphoma. Dictated by: Darvin Leung M.D. The radiology attending physician has personally reviewed this study, and had reviewed and/or edited this written report and agrees with it. Electronically signed by: Raymond Thornton M.D. Narrative 09/17/2019 10:22 AM CDT EXAMINATION: CT chest, abdomen and pelvis with contrast HISTORY: 69-year-old man with chronic lymphocytic leukemia. Transaxial CT images of the chest, abdomen coming and pelvis were obtained following the administration of 100 cc of Optiray-350 intravenous contrast according to standard protocol. COMPARISON: 10/09/2018. FINDINGS: CHEST: No suspicious pulmonary nodules. ??Multiple prominent axillary mediastinal and supraclavicular nodes are noted, all of which are subcentimeter, unchanged since the prior examination. ??There is a right subpectoral lymph node measuring approximately 1.1 cm best appreciated on slice location -45, previously measured short axis. Previously seen supraclavicular lymphadenopathy in the [id number] of this examination is slightly improved. ??For reference there is a left supraclavicular lymph node best appreciated on the slice location 20 measuring approximately 6 mm in short axis previously measured 9 mm in short axis. ?? The heart is normal in size with no pericardial effusion. There is atherosclerotic calcification of the aorta and coronary arteries. There is no pleural effusion. There is no pneumothorax. ABDOMEN AND PELVIS: There is no focal liver lesion. ??There is cholecystectomy. ??Foci of calcification within the spleen are likely sequela of granulomatous disease. ??There is atherosclerotic calcification of the abdominal aorta. ??Multiple enlarged mesenteric and retroperitoneal lymph nodes are noted. ??For reference there is an right para-aortic lymph node measuring approximately 1.5 cm in short axis best appreciated on the slice location -395 previously measured approximately 1.7 cm in short axis. ??There is jazz appearance of the venous entry more prominent adjacent to the ascending colon with multiple mesenteric lymph nodes at this level. ??This appears is not substantially changed since the prior examination however some of the lymph nodes are smaller while some are larger. ??There is no CT evidence for bowel obstruction. There is no adrenal mass. ??There is a left staghorn calculus measuring approximately 1.6 cm not substantially changed. ??No hydronephrosis. ??There is pelvic lymphadenopathy, not substantially changed since the prior examination. ??For reference there is a left external iliac lymph node best appreciated on slice location -599 measuring approximately 1.1 cm in short axis previously measured 1.2 cm in short axis. ??No free fluid in the abdomen or pelvis. ??Urinary bladder is unremarkable. ??Bone windows do not demonstrate any suspicious osseous lesions. ?? Procedure Note Raymond Thornton MD - 09/17/2019 EXAMINATION: CT chest, abdomen and pelvis with contrast HISTORY: 69-year-old man with chronic lymphocytic leukemia. Transaxial CT images of the chest, abdomen coming and pelvis were obtained following the administration of 100 cc of Optiray-350 intravenous contrast according to standard protocol. COMPARISON: 10/09/2018. FINDINGS: CHEST: No suspicious pulmonary nodules. Multiple prominent axillary mediastinal and supraclavicular nodes are noted, all of which are subcentimeter, unchanged since the prior examination. There is a right subpectoral lymph node measuring approximately 1.1 cm best appreciated on slice location -45, previously measured short axis. Previously seen supraclavicular lymphadenopathy in the iyszf-tl-ummx of this examination is slightly improved. For reference there is a left supraclavicular lymph node best appreciated on the slice location 20 measuring approximately 6 mm in short axis previously measured 9 mm in short axis. The heart is normal in size with no pericardial effusion. There is atherosclerotic calcification of the aorta and coronary arteries. There is no pleural effusion. There is no pneumothorax. ABDOMEN AND PELVIS: There is no focal liver lesion. There is cholecystectomy. Foci of calcification within the spleen are likely sequela of granulomatous disease. There is atherosclerotic calcification of the abdominal aorta. Multiple enlarged mesenteric and retroperitoneal lymph nodes are noted. For reference there is an right para-aortic lymph node measuring approximately 1.5 cm in short axis best appreciated on the slice location -395 previously measured approximately 1.7 cm in short axis. There is jazz appearance of the venous entry more prominent adjacent to the ascending colon with multiple mesenteric lymph nodes at this level. This appears is not substantially changed since the prior examination however some of the lymph nodes are smaller while some are larger. There is no CT evidence for bowel obstruction. There is no adrenal mass. There is a left staghorn calculus measuring approximately 1.6 cm not substantially changed. No hydronephrosis. There is pelvic lymphadenopathy, not substantially changed since the prior examination. For reference there is a left external iliac lymph node best appreciated on slice location -599 measuring approximately 1.1 cm in short axis previously measured 1.2 cm in short axis. No free fluid in the abdomen or pelvis. Urinary bladder is unremarkable. Bone windows do not demonstrate any suspicious osseous lesions. IMPRESSION: 1. No substantial change in burden of mediastinal, abdominal and pelvic lymphadenopathy in keeping with patient's known lymphoma. Dictated by: Darvin Leung M.D. The radiology attending physician has personally reviewed this study, and had reviewed and/or edited this written report and agrees with it. Electronically signed by: Raymond Thornton M.D. Magali Stapleton NP IM CT PROCEDURES Final Result documented in this encounter Visit Diagnoses Diagnosis CLL (chronic lymphocytic leukemia) (HCC) Chronic lymphoid leukemia, without mention of having achieved remission documented in this encounter Administered Medications Inactive Administered Medications - up to 3 most recent administrations Medication Order MAR Action Action Date Dose Rate Site ioversoL (OPTIRAY 350) syringe syringe 100 mL 100 mL, intravenous, Once in imaging, contrast, Starting on [place] 716/20 at 0801, For 1 dose Given 09/17/2019 8:01 AM CDT 100 mL ioversoL (OPTIRAY 350) syringe syringe 50 mL 50 mL, intravenous, Once in imaging, contrast, Starting on [place] 09/17/19 at 0806, For 1 dose Given 09/17/2019 8:06 AM CDT 50 mL documented in this encounter Additional Health Concerns Infection Onset Date Last Indicated Resolved Time C. difficile Comment:Backloaded December 21, 2010 09/21/2010 09/21/2010 documented as of this encounter Care Teams Community Relations Representative Relationship Specialty Start Date End Date Lenin Ventura MD [address] [place] [id number] PCP - General 07/06/16 Lenin Ventura MD [address] [place] [id number] 07/06/16 Burt Dos Santos MD PhD [address] [place] [address] Medical Oncologist/Metal Box Maker Medical Oncology 06/16/19 documented as of this encounter
--- OUTSIDE RECORDS SUMMARY | 2024-02-22 08:31 | XMS_ITS | Encounter Summary ---
Author Organization [facility] Address [address] [place] [address] Phone Care Team Providers Care Electro Optics Engineer Name Role Phone Lenin Ventura MD Primary Care Provider [phone] Lenin Ventura MD Unavailable [phone] Burt Dos Santos MD PhD Unavailable [phone] Reason for Visit * Oncology (Routine) - Authorized Specialty Diagnoses / Procedures Referred By Contac t Referred To Contact Medical Oncology / Oncology Diagnoses Appt Comment: LAB Procedures RETURN Lenin Ventura MD [address] [facility] [address] [place] [address] Phone: tel: fax: Burt Dos Santos MD PhD [address] [facility] [place] [address] DIV IM BONE MARROW TRANSPLANT, 5TH, [address] [place] [address] Phone: tel: fax: Referral ID Status Reason Start Date Expiration Date V isits Requested Visits Authorized [id number] Authorized 08/02/2017 03/12/2024 99 99 Encounter Details Date Type Department Care Team (Late st Contact Info) Description 09/08/2020 10:45 AM CDT Office Visit [facility] Bone Marrow Transplant [address] [facility] 7th Floor, [place] [address] Burt Dos Santos MD PhD [address] DIV IM BONE MARROW TRANSPLANT[address] [place] [address] CLL (chronic lymphocytic leukemia) ([facility]) Social History Tobacco Use Types Packs/Day Years Used Date Smoking Tobacco: Former Smokeless Tobacco: Never Alcohol Use Standard Drinks/Week Comments Not Currently 0 (1 standard drink = 0.6 oz pur e alcohol) Sex and Gender Information Value Date Recorded Sex Assigned at Not on file 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 Gender Identity Not on file Sexual Orientation Not on file documented as of this encounter Last Filed Vital Signs Vital Sign Reading Time Taken Comments Blood Pressure 136/79 09/08/2020 10:31 AM CDT Pulse 81 09/08/2020 10:31 AM CDT Temperature 36.4 ??C (97.5 ??F) 09/08/2020 1 0:31 AM CDT Respiratory Rate 18 09/08/2020 10:3 1 AM CDT Oxygen Saturation 98% 09/08/2020 10: 31 AM CDT Inhaled Oxygen Concentration - - Weight 128.9 kg (284 lb 3.2 oz) 021 10:31 AM CDT Height 188 cm (6' 2 ) 09/08/2020 10:31 AM CDT Body Mass Index 36.49 09/08/2020 10:31 AM CDT documented in this encounter Patient Instructions * Patient Instructions* Roberta Burnett RN - 09/08/2020 10:45 AM CDT Images from the original note were not included. uBrt Dos Santos MD, PhD executive sales assistant Magali Stapleton, ASHVIN Nurse Practitioner Roberta Burnett RN, BSN Transplant Nurse Coordinator DAKOTAH Rodriguez Embedded Developer Clinic Locations Every w/ ??? Dr. Dos Santos ??? ASHVIN De Los Santos ??? ALICIA Granados [facility] [place] 7th Floor of [facility] [address] [place] [address] For Appointment Changes ?? please call or [phone] speak with one of the secretaries or Medical Assistants For refills ?? Please call your pharmacy, request in [employer], or contact your registered medical assistant at [phone] Call & Leave Your Nurse Coordinator a Message at [phone] for: ??? General Questions ??? Extreme fatigue [...] and 5:00 PM ?? Please call or [phone] to page your Nurse Coordinator Saturday - Saturday AFTER 5:00 PM, WEEKENDS & HOLIDAYS ?? CALL THE HOSPITAL TRACTOR ENGINE ASSEMBLER AT [phone] AND ASK TO HAVE THE BMT ON-CALL PROVIDER PAGED. For Family Medical Leave Act (FMLA) Paperwork ?? Please allow up to 10 business days to complete the paperwork ?? For questions, please call [phone] and speak with your Embedded Developer ?? You can fax the paperwork to [phone] Medical Records ?? This information is protected by HIPAA. Patients or their legal labor union business representative may obtain copiesof their records, or have copies sent to other facilities by completing a records release while youare in our office. ?? If you aren't onsite, please call [facility] Information Release Services at [phone]. There may be a fee in obtaining medical records for your personal use. Please allow up to 30 days for the request to be processed. If needed sooner, please call [phone] [facility] Billing For questions regarding bills, use the appropriate contact information below: ?? [facility] ?? Call [phone] or toll-free [phone] ?? Online bill payment is available. For more information about this service, visit the [facility] website. ?? [email or web address] ?? [facility] ?? Call [phone] or toll-free [phone] ?? Online bill payment is available. For more information about this service, visit the [employer] website. ?? [email or web address] COVID-19 Information: [email or web address] People at Risk for Serious Illness from COVID-19: https://www.cdc.gov/coronavirus/2019-ncov/specific -groups/dree-tfxr-jztkvbejcgmsz.html More Resources ??? World Health Organization (WHO): https://www.who.int/emergencies/diseases/oohis-tgtzrbcjgbx-4892 ??? CDC What Do You Need to Know Factsheet: https://www.cdc.gov/coronavirus/2019-ncov/downloads/4940-jerx-dzscukptu.pdf documented in this encounter Progress Notes * Magali Stapleton, HEAD USHER - 09/08/2020 10:45 AM CDT BMT Progress Note Oncology History CLL (chronic lymphocytic leukemia) ([facility]) 07/03/2005 Initial Diagnosis Lymphoma, [...] then q2mo x 4; [place] clinical [place] [facility] [id number] stable disease on CT; marrow 30-40% [...] returns for scheduled follow up. He has sinus issues. He denies fevers, chills. He has no nausea, vomiting, diarrhea. He has not noticed any new lumps or bumps. He has been on IVIG since June 2020 for low immunoglobulins. He is doing well with the infusions. Outpatient Encounter Medications as of 09/08/2020: ??? acyclovir (ZOVIRAX) 200 mg capsule, Take [...] times a day, Disp: , Rfl: ??? DULoxetine DR (CYMBALTA) 30 mg capsule, Take 30 mg by mouth daily, Disp: , Rfl: ??? fluticasone (FLONASE) 50 mcg/actuation nasal spray, Administer 2 sprays into each nostril daily, Disp: , Rfl: ??? ibrutinib (Imbruvica) 420 mg tablet, Take 1 tablet (420 mg total) by mouth daily, Disp: 90 tablet, Rfl: 3 ??? levoFLOXacin (LEVAQUIN) 500 mg tablet, Take 500 mg by mouth daily, Disp: , Rfl: ??? magnesium oxide (MAG-OX) [...] Rfl: 0 Facility-Administered Encounter Medications as of 09/08/2020: ??? [COMPLETED] ioversoL (OPTIRAY 350) syringe syringe 75 mL, 75 mL, intravenous, Once in imaging, Burt Dos Santos MD PhD, 75 mL at 09/08/20 0940 ??? [COMPLETED] ioversoL (OPTIRAY 350) syringe syringe 75 mL, 75 mL, intravenous, Once in imaging, Burt Dos Santos MD PhD, 75 mL at 09/08/20 0940 Performance Status: 1 Objective Vitals: BP: 118/76 Temp: 36.3 ??C (97.3 ??F) Temp src: Temporal Pulse: 78 Resp: 18 SpO2: 96 % Height: 188 cm (6' 2 ) Weight: 128.9 kg (284 lb 3.2 oz) Physical exam: In no acute distress HEENT:schlera white Lungs:CTA tawny Heart:RRR Abdomen:soft, non-tender Extremities:no edema Skin:no rash Neuro:no focal deficits Nodes: previously palpable sub-mental LAD is now resolved. Lab/Radiology/Diagnostic Review: CBC: Lab Results Component Value Date/Time WBC 15.7 (H) 09/08/2020 10:16 AM WBC 13.7 (H) 04/10/2019 03:03 PM HGB 14.0 09/08/2020 10:16 AM HGB 14.2 04/10/2019 03:03 PM HCT 40.8 09/08/2020 10:16 AM HCT 41.2 04/10/2019 03:03 PM LABPLAT 178 09/08/2020 10:16 AM LABPLAT 158 04/10/2019 03:03 PM NEUTROABS 6.8 (H) 09/08/2020 10:16 AM NEUTROABS 4,590 04/10/2019 03:03 PM CMP: Lab Results Component Value Date/Time SODIUM 134 (L) 09/08/2020 10:16 AM POTASSIUM 5.2 (H) 09/08/2020 10:16 AM CO2 27 09/08/2020 10:16 AM BUNSER 19 09/08/2020 10:16 AM GLUCOSE 127 09/08/2020 10:16 AM CREATININE 0.67 (L) 09/08/2020 10:16 AM CREATININE 0.8 09/08/2020 09:21 AM CALCIUM 9.2 09/08/2020 10:16 AM CHLORIDE 101 09/08/2020 10:16 AM ALBUMIN 4.3 09/08/2020 10:16 AM AST 24 09/08/2020 10:16 AM ALT 14 09/08/2020 10:16 AM ALKPHOS 79 09/08/2020 10:16 AM BILITOT 0.6 09/08/2020 10:16 AM PROT 6.7 09/08/2020 10:16 AM ANIONGAP 6 09/08/2020 10:16 AM LDH: Lab Results Component Value Date/Time LDH 203 06/09/2020 09:14 AM Radiology MPRESSION:(09/08/20) 1. New tiny bilateral [...] effects from the ibrutinib, otherwise doing well. CT scan stable today. Will RTC in 3 months, and will [...] Nursing Notes * Roberta Burnett RN - 09/08/2020 10:45 AM CDT ROV with Magali for CLL. Doing well on ibrutinib and IVIG. Continue monthly IVIG, ROV in 3 months documented in this encounter Plan of Treatment Not on file documented as of this encounter Results * (ABNORMAL) IgG (12/01/2020 9:39 AM CDT) Immunoglobulin G 623.0(L) 700.0 - 1,600.0 mg/dL [facility] Blood 12/01/2020 9:39 AM CDT 12/01/2020 10:28 AM CDT us Burt Dos Santos MD PhD LAB BLOOD ORDERABLES Final Result [facility] [place] [address] * Lactate dehydrogenase (LD) (12/01/2020 9:39 AM CDT) Lactate dehydrogenase (LDH) 178 100 - 250 Units/L [facility] Comment:Testing performed by : [facility], [address] [place] [phone] Blood 12/01/2020 9:39 AM CDT 12/01/2020 9:42 AM CDT Burt Dos Santos MD PhD LAB BLOOD ORDERABLES Final Result [facility] [place] [address] * (ABNORMAL) Comprehensive metabolic panel (12/01/2020 9:39 AM CDT) Pathologist [facility] Sodium 139 135 - 145 mmol/L [facility] Comment:Testing performed by : [facility], [address] [place] [phone] Potassium, pl 4.7 3.3 - 4.9 mmol/L [facility] Comment:Testing performed by : [facility], [address] [place] [phone] Chloride 103 97 - 110 mmol/L [facility] Comment:Testing performed by : [facility], [address] [place] [phone] CO2 29 22 - 32 mmol/L [facility]ESSA [facility] Comment:Testing performed by : [facility], [address] [place] [phone] Anion gap 7 2 - 15 mmol/L [facility]SA [facility] Comment:Testing performed by : [facility], [address] [place] [phone] BUN 18 8 - 25 mg/dL [facility]SA [facility] Comment:Testing performed by : [facility], [address] [place] [phone] Creatinine 0.78(L) 0.80 - 1.30 mg/dL [facility]SA [facility] Comment:Testing performed by : [facility], [address] [place] [phone] Glucose 174 70 - 199 mg/dL [facility]ESSA CASTRO Comment: [...] was last revised 2017. Testing performed by: [facility], [address] [place] [phone] Calcium 9.4 8.5 - 10.3 mg/dL [facility] Comment:Testing performed by : [address] [address] Bilirubin, total 0.6 0.1 - 1.2 mg/dL [facility] Comment:Testing performed by : [address] [address] Protein, pl 6.5 6.5 - 8.5 g/dL [facility] Comment:Testing performed by : [address] [address] Albumin 4.3 3.5 - 5.0 g/dL [facility] Comment:Testing performed by : [address] [address] Alk phos 74 40 - 130 Units/L [facility] Comment:Testing performed by : [address] [phone] ALT 15 7 - 55 Units/L [facility] Comment:Testing performed by : [address] [phone] AST 14 10 - 50 Units/L [facility] Comment:Testing performed by : [address] [phone] Blood 12/01/2020 9:39 AM CDT 12/01/2020 9:42 AM CDT us Burt Dos Santos MD PhD LAB BLOOD ORDERABLES Final Result [facility] [place] [address] * (ABNORMAL) CBC with auto differential (12/01/2020 9:39 AM CDT) WBC 13.7(H) 3.8 - 9.8 K/cumm [facility]SA [facility] Comment:Testing performed by : [facility], [address] [place] [phone] Hgb 14.2 13.8 - 17.2 g/dL [facility]ANESSA [facility]STRO Comment:Testing performed by : [address] [address] Hct 41.4 40.7 - 50.3 % [facility]ANESSA CASTRO Comment:Testing performed by : [place] [phone] Plt 144 140 - 440 K/cumm [facility]ESSA [facility]STRO Comment:Testing performed by : [facility], [address] [place] [phone] MPV 11.0(H) 6.8 - 10.4 fL [facility] Comment:Testing performed by : [address] [phone] RBC 4.30(L) 4.50 - 5.70 M/cumm [facility]SA [facility]STRO Comment:Testing performed by : [address] [phone] MCV 96.4 80.0 - 97.6 fL [facility] Comment:Testing performed by : [address] [phone] MCH 33.1 26.7 - 33.7 pg CERGEOFF CASTRO Comment:Testing performed by : [address] [phone] MCHC 34.3 32.7 - 35.5 g/dL [facility]ESSA CASTRO Comment:Testing performed by : [address] [phone] RDW CV 16.2(H) 11.8 - 14.6 % [facility]SA CASTRO Comment:Testing performed by : [facility], [address] [facility] [phone] NRBC abs 0.02(H) 0.00 - 0.01 K/cumm VAENSSA CASTRO Comment:Testing performed by : [facility], [address] [facility] [address] Blood 12/01/2020 9:39 AM CDT 12/01/2020 9:42 AM CDT Burt Dos Santos MD PhD LAB BLOOD ORDERABLES Final Result [facility] [place] [address] documented in this encounter Visit Diagnoses Diagnosis CLL (chronic lymphocytic leukemia) (HCC) Chronic lymphoid leukemia, without mention of having achieved remission documented in this encounter Historical Medications * This list may reflect changes made after this encounter. levoFLOXacin (LEVAQUIN) 500 mg tabletIndications: CLL (chronic lymphocytic leukemia) (HCC) Take 500 mg by mouth daily 08/15/2020 02/12/[address] (CYMBALTA) 30 mg capsuleIndications :CLL (chronic lymphocytic leukemia) (HCC) Take 30 mg by mouth daily 07/18/2020 02/12/2022 added in this encounter Orders Appointment Requests Count Last Ordered Date Fi rst Ordered Date ONCBCN CLINIC APPOINTMENT REQUEST 2 021 09/08/2020 ONCBCN LAB APPOINTMENT 3 12/01/202010/06 documented in this encounter Additional Health Concerns Infection Onset Date Last Indicated Resolved Time C. difficile Comment:Backloaded December 21, 2010 09/21/2010 09/21/2010 documented as of this encounter Care Teams Electro Optics Engineer Relationship Specialty Start Date End Date Lenin Ventura MD [address] [address] PCP - General 07/06/16 Lenin Ventura MD [address] [address] 07/06/16 Burt Dos Santos MD PhD [address] [address] Medical Oncologist/Contact Agent Medical Oncology 06/16/19 documented as of this encounter
--- OUTSIDE RECORDS SUMMARY | 2024-02-22 08:31 | XMS_ITS | Encounter Summary ---
Author Organization [facility] Address [address] [place] [address] Phone Care Team Providers Care Connection Worker Name Role Phone Lnein Ventura MD Primary Care Provider [phone] Lenin Ventura MD Unavailable [phone] Burt Dos Santos MD PhD Unavailable [phone] Reason for Visit * Reason Comments Audiometric Evaluation * Audiology (Routine) - Closed Specialty Diagnoses / Procedures Referred By Contac t Referred To Contact Diagnoses Sensorineural hearing loss (SNHL) of both ears Procedures Audiogram Cass Olivia MD [address] [place] [address] Phone: tel: fax: [facility] (All Locations) Referral ID Status Reason Start Date Expiration Date Visits Re quested Visits Authorized [id number] Closed 07/09/2019 01/17/2021 3 3 Encounter Details Date Type Department Care Team (Latest Contact Info) Description 02/15/2020 8:30 AM CHECKERING MACHINE ADJUSTER Procedure visit [facility] Otolaryngology [address] [facility] 11th [place] [address] [place] [id number] Chanel Chiu Au.D. 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 - 02/15/2020 8:30 AM CST Procedures Audiologic Evaluation Jenn Echols Patient: Jeff Abdullahi Date of : 1950 Date of Service: 02/15/2020 Referred by: Lenin Ventura M.D./Cass Olivia M.D. Primary Complaint(s): ?? His hearing is about the same as it was when he was last tested in September of this year. ?? The PE tubes were removed about 2 months ago and he continues to note fluctuating hearing loss primarily in the right ear. ?? He is to follow up with Dr. Olivia today. ?? He has significant sinus issues which affect his hearing. ?? He continues on chemotherapy for lymphoma. Objective: See: Comprehensive audiometric evaluation and tympanograms ASSESSMENT: Pure tone audiometry was performed and revealed: Right: slight loss at 250 Hz with significant air-bone gap rising to WNL from 500-3000 Hz sloping to mild to moderate mixed from 6632-6652 Hz Left: slight mixed loss from 250-1000 Hz rising to WNL at 2000 and 3000 Hz sloping to moderate lossfrom 6047-2345 Hz Speech Recognition Threshold (SRT) is in agreement with pure-tone average (SUPERANNUATION CLERK) and reveals: Right: normal ability to receive speech Left: slight loss in the ability to receive speech Word recognition testing was performed at Most Intelligible Level (MIL) using recorded NU-6 lists of a female talker: Right: normal ability to recognize speech. Left: normal ability to recognize speech. Tympanometry was performed and revealed: Right: Ear Canal Volume: normal Static Compliance: normal with broad negative slope Middle ear pressure: normal Left: Ear Canal Volume: normal Static Compliance: normal Middle ear pressure: negative PLAN: ?? Copy of audiologic results was printed and the patient escorted to see Dr. Olivia ?? Retest post medical or surgical management/12 months/PRN ?? Hearing assistive technology (HAT) ?? Hearing protection in noise ?? Counseled patient on the results of the audiologic examination and answered any questions that arose ?? Forwarded a copy of the audiogram and report to Jenn Abreu KERING MACHINE ADJUSTER documented in this encounter Plan of Treatment Not on file documented as of this encounter Procedures Procedure Name Priority Date/Time Associated Diagnosis Comments AUDBASE RESULTS 02/15/2020 documented in this encounter Results * AUDBASE RESULTS (02/15/2020) Provider Scanning AUDIOLOGY SERVICES ORDERABLES Final Result documented in this encounter Visit Diagnoses Diagnosis Mixed hearing loss, bilateral- Primary Sensory hearing loss, bilateral documented in this encounter Orders Outpatient Referral Count Last Ordered Date Fir st Ordered Date AMB REFERRAL TO AUDIOLOGY 1 02/15/2020 documented in this encounter Additional Health Concerns Infection Onset Date Last Indicated Resolved Time C. difficile Comment:Backloaded December 21, 2010 09/21/2010 09/21/2010 documented as of this encounter Care Teams Connection Worker Relationship Specialty Start Date End Date Lenin Ventura MD [address] [address] PCP - General 07/06/16 Lenin Ventura MD [address] [address] 07/06/16 Burt Dos Santos MD PhD [address] [address] Medical Oncologist/Plastic Worker Medical Oncology 06/16/19 documented as of this encounter
--- OUTSIDE RECORDS SUMMARY | 2024-02-22 08:31 | XMS_ITS | Encounter Summary ---
Author Organization [facility] Address [address] [place] [address] Phone Care Team Providers Care Poultry Pathologist Name Role Phone Lenin Ventura MD Primary Care Provider [phone] Lenin Ventura MD Unavailable [phone] Burt Dos Santos MD PhD Unavailable [phone] Reason for Visit * Episode Based Medications (Routine) - Authorized Specialty Diagnoses / Procedures Referred By Contguillermo t Referred To Contact Diagnoses Hypogammaglobulinemia (HCC) Procedures [place] GAMUNEX-C/GAMMAKED GAMUNEX Burt Dos Santos MD PhD [address] DIV IM BONE MARROW TRANSPLANT, [address] [place] [address] Phone: tel: fax: [facility] at [facility] and [facility] [place] [id number] [facility] Medicine 7th [place] [address] Phone: tel: Referral ID Status Reason Start Date Expiration Date V isits Requested Visits Authorized [id number] Authorized 10/19/2019 08/02/2024 1 38 Encounter Details Date Type Department Care Team (Late st Contact Info) Description 09/08/2020 11:30 AM CDT Infusion [facility] Oncology [address] [place] [address] [place] [address] CLL (chronic lymphocytic leukemia) (CMS/HCC) (Primary Dx); Hypogammaglobulinemia (CMS/HCC) Social History Tobacco Use Types Packs/Day Years Used Date Smoking Tobacco: Former Smokeless Tobacco: Never Alcohol Use Standard Drinks/Week Comments Not Currently 0 (1 standard drink = 0.6 oz pur e alcohol) Sex and Gender Information Value Date Recorded Sex Assigned at Not on file 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 Gender Identity Not on file Sexual Orientation Not on file documented as of this encounter Last Filed Vital Signs Vital Sign Reading Time Taken Comments Blood Pressure 128/71 09/08/2020 2:26 PM CDT Pulse 78 09/08/2020 2:26 PM CDT Temperature 37.2 ??C (99 ??F) 09/08/2020 2:26 PM CDT Respiratory Rate 18 09/08/2020 2:26 PM CDT Oxygen Saturation 95% 09/08/2020 2:26 PM CDT Inhaled Oxygen Concentration - - Weight - - Height - - Body Mass Index - - documented in this encounter Nursing Notes * Paulino Uribe RN - 09/08/2020 11:30 AM CDT Oncology Nursing Note [facility] ONCOLOGY Jeff Abdullahi is a 70 y.o. male who presents for IVIG. Pre-treatment Nursing Assessment Nursing Assessment Appetite:: Good Diarrhea:: No Constipation:: No Last BM Date: 09/08/20 Existing Patients: Any falls since your last visit? : No Fatigue:: Occassional Mouth Sores:: No Nausea/Vomiting:: No Pain:: No Peripheral Neuropathy: : No Pt states has potential to be ? : No Shortness of Breath?: No Skin Condition/Temp: Warm, Dry Oral Mucosa Grade: Normal (0) Abdomen: Soft Swelling:: No BP: 118/76 Temp: 36.3 ??C (97.3 ??F) Temp src: Temporal Pulse: 78 Resp: 18 SpO2: 96 % Height: 188 cm (6' 2 ) Weight: 128.9 kg (284 lb 3.2 oz) Treatment Patient: met treatment parameters Pre blood return: Brisk Jeff Abdullahi tolerated treatment well. Post blood return: Brisk IV access post infusion: NS Patient Education Treatment Education: Information/teaching given to patient including When to notify MD and follow up Response: Verbalizes understanding Discharge Plan Discharge instructions [...] mg 650 mg, oral, Once, On Paloma 09/08/20 at 1230, For 1 dose, Please give 30 minutes prior to IVIG.Indications:Hypogamm aglobulinemia (HCC) Given 09/08/2020 11:54 AM CDT 650 mg diphenhydrAMINE (BENADRYL) tab/cap 25 mg 25 mg, oral, Once, On [place] 09/08/20 at 1230, For 1 dose, Give 30 minutes prior to IVIG.Indications:Hypogamm aglobulinemia (HCC) Given 09/08/2020 11:54 AM CDT 25 mg immune globulin (GAMUNEX-C,GAMMAKED) 10 % infusion 35 g 35 g (rounded from 32.88 g = 400 mg/kg ? 82.2 kg [place] weight), intravenous, Once, On [place] 09/08/20 at 1230, For 1 dose, GamuNEX C SUBSEQUENT Infusion, [...] over 15 minutes (Rate = 99 mL/hr) 3 . 1.8 mL/kg/hr = Infuse 37 mL over 15 minutes (Rate = 148 mL/hr) 4 . 2.4 mL/kg/hr = Infuse 49 mL over 15 minutes (Rate = 197 mL/hr) 5 . 3.0 mL/kg/hr = Infuse 62 mL over 15 minutes (Rate = 247 mL/hr) 6 . 3.6 mL/kg/hr = Infuse 74 mL over 15 minutes (Rate = 296 mL/hr) , 7 . 4.2 mL/kg/hr = Infuse 86 mL over 15 minutes (Rate = 345 mL/hr) 8 . 4.8 mL/kg/hr for remainder (Rate = 395 mL/hr)Indications:Hypogam maglobulinemia (HCC) Rate/Dose Change 09/08/2020 2:08 PM CDT 344 mL/hr Rate/Dose Change 09/08/2020 1:51 PM CDT 296 mL/ hr Rate/Dose Change 09/08/2020 1:35 PM CDT 248 mL/ hr documented in this encounter Orders Nursing Count Last Ordered Date First Orde red Date ONCBCN NURSING COMMUNICATION [id number] 2 0 09/08/2020 VITAL SIGNS INTRA-INFUSION 1 09/08/2020 Appointment Requests Count Last Ordered Date Fi rst Ordered Date INFUSION APPT REQUEST 300 MIN 1 09/08/2020 documented in this encounter Additional Health Concerns Infection Onset Date Last Indicated Resolved Time C. difficile Comment:Backloaded December 21, 2010 09/21/2010 09/21/2010 documented as of this encounter Care Teams Poultry Pathologist Relationship Specialty Start Date End Date Lenin Ventura MD [address] [address] PCP - General 07/06/16 Lenin Ventura MD [address] [address] 07/06/16 Burt Dos Santos MD PhD [address] [address] Medical Oncologist/Spar Cap Beveler Medical Oncology 06/16/19 documented as of this encounter
--- OUTSIDE RECORDS SUMMARY | 2024-02-22 08:31 | XMS_ITS | Encounter Summary ---
Author Organization [facility] Address [address] [place] [address] Phone Care Team Providers Care Poultry And Fish Butcher Name Role Phone Lenin Ventura MD Primary Care Provider [phone] Lenin Ventura MD Unavailable [phone] Burt Dos Santos MD PhD Unavailable [phone] Reason for Visit * Oncology (Routine) - Authorized Specialty Diagnoses / Procedures Referred By Contac t Referred To Contact Medical Oncology / Oncology Diagnoses Appt Comment: LAB Procedures RETURN Lenin Ventura MD [address] [facility] [address] [place] [address] Phone: tel: fax: Burt Dos Santos MD PhD [id number] [facility] [place] [address] DIV IM BONE MARROW TRANSPLANT, 5TH, [address] [place] [address] Phone: tel: fax: Referral ID Status Reason Start Date Expiration Date V isits Requested Visits Authorized [id number] Authorized 08/02/2017 03/12/2024 99 99 Encounter Details Date Type Department Care Team (Late st Contact Info) Description 12/01/2020 10:15 AM CDT Office Visit [facility] Bone Marrow Transplant [address] [facility] 7th Floor, [place] [address] Burt Dos Santos MD PhD [address] DIV IM BONE MARROW TRANSPLANT, [address] [place] [address] CLL (chronic lymphocytic leukemia) ([facility]/HCC) ([facility]) Social History Tobacco Use Types Packs/Day Years Used Date Smoking Tobacco: Former Smokeless Tobacco: Never Alcohol Use Standard Drinks/Week Comments Not Currently 0 (1 standard drink = 0.6 oz pur e alcohol) Sex and Gender Information Value Date Recorded Sex Assigned at Not on file Legal Sex Male 9:45 AM SHELF STOCKER Gender Identity Not on file Sexual Orientation Not on file documented as of this encounter Last Filed Vital Signs Vital Sign Reading Time Taken Comments Blood Pressure 133/78 12/01/2020 10:15 AM CDT Pulse 84 12/01/2020 10:15 AM CDT Temperature 36.4 ??C (97.6 ??F) 12/01/2020 10:15 AM C DT Respiratory Rate 18 12/01/2020 10:15 AM CDT Oxygen Saturation 96% 12/01/2020 10:15 AM CDT Inhaled Oxygen Concentration - - Weight 130 kg (286 lb 9.6 oz) 12/01/2020 10:15 A M CDT Height - - Body Mass Index 36.8 09/08/2020 10:31 AM CDT documented in this encounter Progress Notes * Magali Stapleton NP - 12/01/2020 10:15 AM CDT BMT Progress Note Oncology History CLL (chronic lymphocytic leukemia) ([facility]/HCC) ([facility]) 07/03/2005 Initial Diagnosis Lymphoma, small lymphocytic; Initial [...] then q2mo x 4; on clinical [place] [facility] [id number] --> stable disease on CT; marrow 30-40% [...] the infusions. Outpatient Encounter Medications as of 12/01/2020: ??? acyclovir (ZOVIRAX) 200 mg capsule, Take [...] facility-administered encounter medications on file as of 12/01/2020. Performance Status: 1 Objective Vitals: BP: 131/78 Temp: 36.6 ??C (97.8 ??F) Temp src: Temporal Pulse: 80 Resp: 18 SpO2: 98 % Weight: 130 kg (286 lb 9.6 oz) Physical exam: In no acute distress HEENT:schlera white Lungs:CTA tawny Heart:RRR Abdomen:soft, non-tender Extremities:no edema Skin:no rash Neuro:no focal deficits Nodes: previously palpable sub-mental LAD is now resolved. Lab/Radiology/Diagnostic Review: CBC: Lab Results Component Value Date/Time WBC 13.7 (H) 12/01/2020 09:39 AM WBC 13.7 (H) 04/10/2019 03:03 PM HGB 14.2 12/01/2020 09:39 AM HGB 14.2 04/10/2019 03:03 PM HCT 41.4 12/01/2020 09:39 AM HCT 41.2 04/10/2019 03:03 PM LABPLAT 144 12/01/2020 09:39 AM LABPLAT 158 04/10/2019 03:03 PM NEUTROABS 5.9 12/01/2020 09:39 AM NEUTROABS 4,590 04/10/2019 03:03 PM CMP: Lab Results Component Value Date/Time SODIUM 139 12/01/2020 09:39 AM POTASSIUM 4.7 12/01/2020 09:39 AM CO2 29 12/01/2020 09:39 AM BUNSER 18 12/01/2020 09:39 AM GLUCOSE 174 12/01/2020 09:39 AM CREATININE 0.78 (L) 12/01/2020 09:39 AM CALCIUM 9.4 12/01/2020 09:39 AM CHLORIDE 103 12/01/2020 09:39 AM ALBUMIN 4.3 12/01/2020 09:39 AM AST 14 12/01/2020 09:39 AM ALT 15 12/01/2020 09:39 AM ALKPHOS 74 12/01/2020 09:39 AM BILITOT 0.6 12/01/2020 09:39 AM PROT 6.5 12/01/2020 09:39 AM ANIONGAP 7 12/01/2020 09:39 AM LDH: Lab Results Component Value Date/Time LDH 178 12/01/2020 09:39 AM Radiology MPRESSION:(09/08/20) 1. New tiny bilateral [...] of IVIG today. We will then stop for a couple of months and monitor his IgG level. ?? 3.?Thyroid nodule.?We will continue to follow this expectantly. ?? As always, the patient knows to contact our office with any questions or concerns in the interim. Cosigned by Burt Dos Santos MD PhD at 12/02/2020 4:53 PM CDT documented in this encounter Nursing Notes * Roberta Burnett RN - 12/01/2020 10:15 AM CDT ROV with Magali. Doing well 6th IVIG today. We will hold after this per patient request. Doing well,ROV In 3 months documented in this encounter Plan of Treatment Not on file documented as of this encounter Results * (ABNORMAL) IgG (03/16/2021 10:27 AM SHELF STOCKER) Immunoglobulin G 377.0(L) 700.0 - 1,600.0 mg/dL [facility] Blood 03/16/2021 10:2 7 AM SHELF STOCKER 03/16/2021 11:26 AM SHELF STOCKER us Magali Stapleton RULING MACHINE OPERATOR LAB BLOOD ORDERABLES Final Res ult [facility] Department [place] [address] * Lactate dehydrogenase (LD) (03/16/2021 10:27 AM SHELF STOCKER) Pathologist [facility] Lactate dehydrogenase (LDH) 176 100 - 250 Units/L [facility] Comment:Testing performed by : [facility], [address] [place] [phone] Blood 03/16/2021 10:2 7 AM SHELF STOCKER 03/16/2021 10:29 AM SHELF STOCKER us Magali Velazquezr RULING MACHINE OPERATOR LAB BLOOD ORDERABLES Final Res ult [facility] Department [place] [address] * (ABNORMAL) Comprehensive metabolic panel (03/16/2021 10:27 AM SHELF STOCKER) Pathologist [facility] Sodium 138 135 - 145 mmol/L [facility] Comment:Testing performed by : [facility], [address] [place] [phone] Potassium, pl 5.2(H) 3.3 - 4.9 mmol/L [facility] Comment:Testing performed by : [facility], [address] [place] [phone] Chloride 101 97 - 110 mmol/L [facility] Comment:Testing performed by : [facility], [address] [place] [phone] CO2 30 22 - 32 mmol/L [facility] Comment:Testing performed by : [facility], [address] [place] [phone] Anion gap 7 2 - 15 mmol/L [facility] Comment:Testing performed by : [address] [address] BUN 20 8 - 25 mg/dL [facility] Comment:Testing performed by : [facility], [address] [place] [phone] Creatinine 0.81 0.80 - 1.30 mg/dL [facility] Comment:Testing performed by : [facility], [address] [place] [phone] Glucose 123 70 - 199 mg/dL [facility]ES[facility] [...] was last revised 2017. Testing performed by: [facility], [address] [place] [phone] Calcium 9.7 8.5 - 10.3 mg/dL [facility] Comment:Testing performed by : [facility], [address] [place] [phone] Bilirubin, total 0.6 0.1 - 1.2 mg/dL [facility] Comment:Testing performed by : [facility], [address] [place] [phone] Protein, pl 6.7 6.5 - 8.5 g/dL [facility] Comment:Testing performed by : [facility], [address] [place] [phone] Albumin 4.6 3.5 - 5.0 g/dL [facility] Comment:Testing performed by : [facility], [address] [place] [phone] Alk phos 86 40 - 130 Units/L [facility] Comment:Testing performed by : [address] [phone] ALT 18 7 - 55 Units/L [facility] Comment:Testing performed by : [address] [phone] AST 16 10 - 50 Units/L [facility] Comment:Testing performed by : [facility], [address] [place] [phone] Blood 03/16/2021 10:2 7 AM SHELF STOCKER 03/16/2021 10:29 AM SHELF STOCKER us Magali Phelan [place] RULING MACHINE OPERATOR LAB BLOOD ORDERABLES Final Res ult [facility] Department [place] [address] * (ABNORMAL) CBC with auto differential (03/16/2021 10:27 AM SHELF STOCKER) [facility] Signature WBC 12.4(H) 3.8 - 9.8 K/cumm [facility] Comment:Testing performed by : [facility], [address] [place] [address] Hgb 15.4 13.8 - 17.2 g/dL [facility] Comment:Testing performed by : [place] [address] Hct 45.6 40.7 - 50.3 % [facility] Comment:Testing performed by : [facility], [address] [place] [address] Plt 178 140 - 440 K/cumm [facility] Comment:Testing performed by : [place] [address] MPV 11.6(H) 6.8 - 10.4 fL [facility] Comment:Testing performed by : [place] [address] RBC 4.74 4.50 - 5.70 M/cumm [facility] Comment:Testing performed by : [place] [address] MCV 96.2 80.0 - 97.6 fL [facility] Comment:Testing performed by : [place] [address] MCH 32.6 26.7 - 33.7 pg [facility] Comment:Testing performed by : [place] [address] MCHC 33.9 32.7 - 35.5 g/dL [facility] Comment:Testing performed by : [place] [address] RDW CV 16.0(H) 11.8 - 14.6 % [facility] Comment:Testing performed by : [place] [address] NRBC abs 0.01 0.00 - 0.01 K/cumm [facility] Comment:Testing performed by : [place] [address] Blood 03/16/2021 10:2 7 AM SHELF STOCKER 03/16/2021 10:29 AM SHELF STOCKER Magali Stapleton RULING MACHINE OPERATOR LAB BLOOD ORDERABLES Final Res ult [facility] Department [place] [address] documented in this encounter Visit Diagnoses Diagnosis CLL (chronic lymphocytic leukemia) (HCC) Chronic lymphoid leukemia, without mention of having achieved remission documented in this encounter Orders Appointment Requests Count Last Ordered Date Fi rst Ordered Date ONCBCN CLINIC APPOINTMENT REQUEST 2 022 12/01/2020 ONCBCN LAB APPOINTMENT 1 03/16/2021 documented in this encounter Additional Health Concerns Infection Onset Date Last Indicated Resolved Time C. difficile Comment:Backloaded December 21, 2010 09/21/2010 09/21/2010 documented as of this encounter Care Teams Poultry And Fish Butcher Relationship Specialty Start Date End Date Lenin Ventura MD [address] [address] PCP - General 07/06/16 Lenin Ventura MD [address] [employer] [address] 07/06/16 Burt Dos Santos MD PhD [address] [employer] [address] [employer] [address] Medical Oncologist/Security Shift Manager Medical Oncology 06/16/19 documented as of this encounter
--- OUTSIDE RECORDS SUMMARY | 2024-02-22 08:31 | XMS_ITS | Encounter Summary ---
Author Organization [facility] Address [address] [place] [address] Phone Care Team Providers Care Live Study Manager Name Role Phone Lenin Ventura MD Primary Care Provider [phone] Lenin Ventura MD Unavailable [phone] Burt Dos Santos MD PhD Unavailable [phone] Reason for Visit * Reason Comments Hearing Loss pt here for followup after tube removal * Consultation (Routine) - Closed Specialty Diagnoses / Procedures Referred By Trent delgado Referred To Contact Otolaryngology Diagnoses Other sinusitis, unspecified chronicity Burt Dos Santos MD PhD Phone: tel: fax: Cass Olivia MD [address] [place] [address] Phone: tel: fax: Referral ID Status Reason Start Date Expiration Date V isits Requested Visits Authorized [id number] Closed Specialty Services Required 06/25/2019 01/03/2021 3 3 Encounter Details Date Type Department Care Team (Late st Contact Info) Description 02/15/2020 9:20 AM STRIP WINDER Office Visit [facility] E[facility] [address] [facility] Advanced Medicine 11th [place] [address] [place] [address] Cass Olivia MD [address] [place] [address] Mastoiditis of both sides (Primary Dx) Social History Tobacco Use Types Packs/Day Years Used Date Smoking Tobacco: Former Smokeless Tobacco: Never Alcohol Use Standard Drinks/Week Comments Not Currently 0 (1 standard drink = 0.6 oz pur e alcohol) Sex and Gender Information Value Date Recorded Sex Assigned at Not on file Legal Sex Male 9:45 AM STRIP WINDER Gender Identity Not on file Sexual Orientation Not on file documented as of this encounter Last Filed Vital Signs Vital Sign Reading Time Taken Comments Blood Pressure - - Pulse - - Temperature - - Respiratory Rate - - Oxygen Saturation - - Inhaled Oxygen Concentration - - Weight 90.7 kg (200 lb) 02/15/2020 9:32 AM STRIP WINDER Height 193 cm (6' 4 ) 02/15/2020 9:32 AM STRIP WINDER Body Mass Index 24.34 02/15/2020 9:32 AM STRIP WINDER documented in this encounter Progress Notes * Cass Olivia MD - 02/15/2020 9:20 AM CST Jeff Abdullhai was seen in consultation at the request of Dr. Dos Santos. Chief Complaint: follow-up Interval: Patient returns for follow-up evaluation with history of bilateral T tubes. At his last appointmenthe had bilateral T tubes removed the period since then he reports overall that he has done well buthe reports intermittent ear fullness. He denies otalgia, otorrhea, or vertigo. From previous: HPI: Patient returns for follow-up [...] SURGERY [address] [facility]quille King at [facility] ??? LAPAROSCOPIC CHOLECYSTECTOMY 2006 Dr. [facility] ??? LYMPH NODE BIOPSY 2006 Past [...] Socioeconomic History ??? Marital status: Spouse name: Not on file ??? Number of children: Not on file ??? Years of education: Not on file ??? Highest education level: Not on file Occupational History ??? Not on file Social Needs ??? Financial resource strain: Not on file ??? Food insecurity Worry: Not on file Inability: Not on file ??? Transportation needs Medical: Not on file Non-medical: Not on file Tobacco Use ??? Smoking status: Former Smoker ??? Smokeless tobacco: Never Used Substance and Sexual Activity ??? Alcohol use: Not Currently ??? Drug use: Never ??? Sexual activity: Not on file Lifestyle ??? Physical activity Days per week: Not on file Minutes per session: Not on file ??? Stress: Not on file Relationships ??? Social connections Talks on phone: Not on file Gets together: Not on file Attends anabaptist service: Not on file Active member of club or organization: Not on file Attends meetings of clubs or organizations: Not on file Relationship status: Not on file ??? Intimate partner violence Fear of current or ex partner: Not on file Emotionally abused: Not on file Physically abused: Not on file Forced sexual activity: Not on file Other Topics Concern ??? Not on file Social History Narrative Merged [...] tablet TK 1 T PO BID ??? cholecalciferol (cholecalciferol) 1000 unit tablet Take 1 tablet (1,000 Units total) by mouth daily 30 tablet 11 ??? cyanocobalamin (Vitamin B-12) 1,000 mcg tablet Take 1 tablet (1,000 mcg total) by mouth daily 30 tablet 11 ??? fluticasone (FLONASE) 50 mcg/actuation nasal spray Administer 2 sprays into each nostril daily ??? ibrutinib (Imbruvica) 420 mg tablet Take 1 tablet (420 mg total) by mouth daily 90 tablet 3 ??? magnesium oxide (MAG-OX) 250 mg (150.8 mg elemental) tablet Take 1 tablet (250 mg total) by mouth daily ??? melatonin 5 mg capsule Take 5 mg by mouth nightly as needed (insomnia) 0 ??? mupirocin (BACTROBAN) 2 % ointment Apply 1 inch of ointment to nasal irrigations 3x's daily 30 g 3 ??? zinc 50 mg tablet Take 50 [...] review of systems. Physical Exam Vital Signs: Ht 193 cm (6' 4 ) Wt 90.7 kg (200 lb) BMI 24.34 kg/m?? GENERAL: Pleasant male, sitting up in NAD, normal appearance and voice. RESPIRATION: Breathing comfortably, no stridor. CV: No clubbing/cyanosis/edema in hands, RRR. HEAD AND FACE: General Inspection reveals no lesions or masses. HEENT: EARS:Examination of the external ears was normal using visual inspection. Otoscopic and/or microscope reveals: Right External auditory canal: normal Tympanic Membrane: Well-healed tympanic membrane Middle ear: normal Left: External auditory canal: normal Tympanic Membrane: Well-healed tympanic membrane Middle ear: normal EYES: EOM Intact, sclera [...] intact and symmetric. Normal affect. GAIT: Normal. ASSESSMENT/PLAN 68 year old male returns to clinic for evaluation of bilateral mastoiditis and left side hernandez-sinusitis in the setting of CLL treated conservatively with bilateral t-tubes and nasal irrigations. He has had is bilateral T tubes removed and he has overall done well with this. His tympanic membranes are now intact. I will plan on seeing him back this summer with repeat audiometric evaluation or sooner if he develops any new symptoms. Cass Olivia M.D. Otology and Neurotology Department of Otolaryngology [facility] [email or web address] Office: Clinic: This note was created in part with the assistance of [employer] voice recognition software. Employment Educational Coord variances may occur. P WINDER documented in this encounter Plan of Treatment Not on file documented as of this encounter Visit Diagnoses Diagnosis Mastoiditis of both sides- Primary documented in this encounter Discontinued Medications Medication Sig Discontinue Reason Start Date End Da te cetirizine (ZyrTEC) 10 mg chewable tabletIndications:CLL (chronic lymphocytic leukemia) (HCC) Take 10 mg by mouth daily Therapy completed 02/15/2020 ranitidine (ZANTAC) 150 mg capsule Take 150 mg by mouth daily Therapy completed 02/15/2020 documented as of this encounter Additional Health Concerns Infection Onset Date Last Indicated Resolved Time C. difficile Comment:Backloaded December 21, 2010 09/21/2010 09/21/2010 documented as of this encounter Care Teams Live Study Manager Relationship Specialty Start Date End Date Lenin Ventura MD [address] [id number] PCP - General 07/06/16 Lenin Ventura MD [facility] [address] [id number] 07/06/16 Burt Dos Santos MD PhD [facility] [address] [id number] Medical Oncologist/Sole Ruffer Medical Oncology 06/16/19 documented as of this encounter
--- OUTSIDE RECORDS SUMMARY | 2024-02-22 08:31 | XMS_ITS | Encounter Summary ---
Author Organization [facility] Address [address] [place] [address] Phone Care Team Providers Care Pizza Driver Name Role Phone Lenin Ventura MD Primary Care Provider [phone] Lenin Ventura MD Unavailable [phone] Burt Dos Santos MD PhD Unavailable [phone] Reason for Visit * Oncology (Routine) - Authorized Specialty Diagnoses / Procedures Referred By Contac t Referred To Contact Oncology Diagnoses CLL (chronic lymphocytic leukemia) (HCC) Procedures ONCBCN ARM DRAW APPT ONC LAB ONLY Burt Dos Santos MD PhD Phone: tel: fax: Burt Dos Santos MD PhD Phone: tel: fax: Referral ID Status Reason Start Date Expiration Date Visits Requested Visits Authorized [id number] Authorized Specialty Services Required 07/03/2019 03/12/2024 99 [phone] Encounter Details Date Type Department Care Team (Late st Contact Info) Description 06/09/2020 9:15 AM CDT Lab [facility] 7th [place] [address] [place] [address] CLL (chronic lymphocytic leukemia) (CMS/HCC) Social History Tobacco Use Types Packs/Day Years Used Date Smoking Tobacco: Former Smokeless Tobacco: Never Alcohol Use Standard Drinks/Week Comments Not Currently 0 (1 standard drink = 0.6 oz pur e alcohol) Sex and Gender Information Value Date Recorded Sex Assigned at Not on file 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 Gender Identity Not on file Sexual Orientation Not on file documented as of this encounter Plan of Treatment Not on file documented as of this encounter Procedures Procedure Name Priority Date/Time Associated Diagnosis Comments MORPHOLOGIC SCREEN STAT 06/09/2020 9: 14 AM CDT CLL (chronic lymphocytic leukemia) ([facility]) DIFFERENTIAL AUTO STAT 06/09/2020 9:1 4 AM CDT CLL (chronic lymphocytic leukemia) ([facility]) CBC WITH AUTO DIFFERENTIAL STAT 06/09/2020 9:14 AM CDT CLL (chronic lymphocytic leukemia) ([facility]) LACTATE DEHYDROGENASE STAT 06/09/2020 9:14 AM CDT CLL (chronic lymphocytic leukemia) ([facility]) IGG STAT 06/09/2020 9:14 AM CDT CLL (chronic lymphocytic leukemia) ([facility]) COMPREHENSIVE METABOLIC PANEL STAT 06/09/2020 9:14 AM CDT CLL (chronic lymphocytic leukemia) ([facility]) documented in this encounter Results * Morphologic screen (06/09/2020 9:14 AM CDT) [facility] Morphologic Screen Original results obtained required verification by peripheral smear. [facility] Observation Variant lymphocytes noted on screening [facility] Blood specimen (specimen) 06/09/2020 9:14 AM CDT 06/09/2020 9:15 AM CDT us Magali Phelan [place] INSPECTOR GENERAL LAB BLOOD ORDERABLES Final Res ult [facility] One [facility] [place] [address] * (ABNORMAL) Differential, auto (06/09/2020 9:14 AM CDT) Pathologist [facility] Neutrophil abs 4.8 1.8 - 6.6 K/cumm [facility] Comment:Testing performed by : [facility], [address] [place] [phone] Lymphocyte abs 11.3(H) 1.2 - 3.3 K/cumm [facility] Comment:Testing performed by : [facility], [address] [place] [phone] Monocyte abs 1.1 0.2 - 1.2 K/cumm [facility] Comment:Testing performed by : [facility], [address] [place] [phone] Eosinophil abs 0.1 0.0 - 0.5 K/cumm [facility] Comment:Testing performed by : [facility], [address] [place] [phone] Basophil abs 0.1 0.0 - 0.2 K/cumm [facility] Comment:Testing performed by : [facility], [address] [place] [phone] Neutrophil pct 27.5 % [facility] Comment: Interpretive Data Percent cell count reference ranges are not reported, since discordance with absolute values may lead to misinterpretation of CBC data. Current Interpretive Data was last revised on 2017. Testing performed by: [facility], [address] [place] [phone] Lymphocyte pct 65.4 % [facility] Comment: Interpretive Data Percent cell count reference ranges are not reported, since discordance with absolute values may lead to misinterpretation of CBC data. Current Interpretive Data was last revised on 2017. Testing performed by: [facility], [address] [place] [phone] Monocyte pct 6.2 % [facility] Comment:Testing performed by : [facility], [address] [place] [phone] Eosinophil pct 0.6 % [facility] Comment:Testing performed by : [facility], [address] [place] [phone] Basophil pct 0.3 % [facility] Comment:Testing performed by : [facility], [address] [place] [phone] Blood specimen (specimen) 06/09/2020 9:14 AM CDT 06/09/2020 9:15 AM CDT us Magali Stapleton INSPECTOR GENERAL LAB BLOOD ORDERABLES Final Res ult VANESSA [facility] [place] [address] * (ABNORMAL) CBC with auto differential (06/09/2020 9:14 AM CDT) WBC 17.3(H) 3.8 - 9.8 K/cumm [facility] Comment:Testing performed by : [facility], [address] [place], [place] [phone] Hgb 13.6(L) 13.8 - 17.2 g/dL [facility] Comment:Testing performed by : [address] [phone] Hct 41.1 40.7 - 50.3 % [facility]ESSA [facility] Comment:Testing performed by : [address] [phone] Plt 142 140 - 440 K/cumm [facility]ANESSA [facility] Comment:Testing performed by : [address] [phone] MPV 11.6(H) 6.8 - 10.4 fL [facility]ANESSA [facility] Comment:Testing performed by : [address] [phone] RBC 4.20(L) 4.50 - 5.70 M/cumm VANESSA [facility]STRO Comment:Testing performed by : [address] [phone] MCV 97.9(H) 80.0 - 97.6 fL VANESSA [facility] Comment:Testing performed by : [address] [phone] MCH 32.5 26.7 - 33.7 pg CERGEOFF [facility] Comment:Testing performed by : [address] [address] MCHC 33.2 32.7 - 35.5 g/dL VANESSA CASTRO Comment:Testing performed by : [facility], [address] [place] [phone] RDW CV 16.5(H) 11.8 - 14.6 % VANESSA CASTRO Comment:Testing performed by : [facility], [address] [place] [phone] NRBC abs 0.01 0.00 - 0.01 K/cumm VANESSA CASTRO Comment:Testing performed by : [facility], [address] [place] [phone] Blood specimen (specimen) 06/09/2020 9:14 AM CDT 06/09/2020 9:15 AM CDT us Magali Stapleton INSPECTOR GENERAL LAB BLOOD ORDERABLES Final Res ult [facility]ESSA CASTRO One [facility] Department [place] [address] * (ABNORMAL) Comprehensive metabolic panel (06/09/2020 9:14 AM CDT) Sodium 138 135 - 145 mmol/L VANESSA CASTRO Comment:Testing performed by : [facility], [address] [place] [phone] Potassium, pl 4.8 3.3 - 4.9 mmol/L VANESSA CASTRO Comment:Testing performed by : [facility], [address] [place] [phone] Chloride 103 97 - 110 mmol/L VANESSA CASTRO Comment:Testing performed by : [facility], [address] [place] [phone] CO2 29 22 - 32 mmol/L VANESSA CASTRO Comment:Testing performed by : [address] [phone] Anion gap 6 2 - 15 mmol/L VANESSA CASTRO Comment:Testing performed by : [address] [address] BUN 19 8 - 25 mg/dL VANESSA CASTRO Comment:Testing performed by : [facility] [address] Creatinine 0.85 0.80 - 1.30 mg/dL [facility] Comment:Testing performed by : [facility], [address] [place] [phone] Glucose 120 70 - 199 mg/dL C[facility]ER [facility] Comment: [...] was last revised 2017. Testing performed by: [address] [phone] Calcium 9.9 8.5 - 10.3 mg/dL C[facility]ER [facility] Comment:Testing performed by : [address] [phone] Bilirubin, total 0.7 0.1 - 1.2 mg/dL C[facility]ER [facility] Comment:Testing performed by : [address] [phone] Protein, pl 6.4(L) 6.5 - 8.5 g/dL C[facility]ER [facility] Comment:Testing performed by : [address] [phone] Albumin 4.7 3.5 - 5.0 g/dL C[facility]ER [facility] Comment:Testing performed by : [address] [phone] Alk phos 72 40 - 130 Units/L [facility]ER [facility] Comment:Testing performed by : [address] [phone] ALT 15 7 - 55 Units/L C[facility]ER [facility] Comment:Testing performed by : [place] [phone] AST 14 10 - 50 Units/L [facility]ER [facility] Comment:Testing performed by : [facility], [address] [place] [phone] Blood specimen (specimen) 06/09/2020 9:14 AM CDT 06/09/2020 9:15 AM CDT us De Los Santos SJulisa [place] INSPECTOR GENERAL LAB BLOOD ORDERABLES Final Res ult Performing Organization Address City/[facility]/ZIP Co de Phone Number [facility] [place] [address] * Lactate dehydrogenase (LD) (06/09/2020 9:14 AM CDT) Lactate dehydrogenase (LDH) 203 100 - 250 Units/L [facility] Comment:Testing performed by : [facility], [address] [place] [phone] Blood specimen (specimen) 06/09/2020 9:14 AM CDT 06/09/2020 9:15 AM CDT Magali Stapleton INSPECTOR GENERAL LAB BLOOD ORDERABLES Final Res ult Performing Organization Address [facility]/ZIP Co de Phone Number [facility] [place] [address] * (ABNORMAL) IgG (06/09/2020 9:14 AM CDT) Immunoglobulin G 369.0(L) 700.0 - 1,600.0 mg/dL [facility] Blood specimen (specimen) 06/09/2020 9:14 AM CDT 06/09/2020 9:31 AM CDT Magali S. [place] INSPECTOR GENERAL LAB BLOOD ORDERABLES Final Res ult [facility] [place] [address] documented in this encounter Visit Diagnoses Diagnosis CLL (chronic lymphocytic leukemia) (HCC) Chronic lymphoid leukemia, without mention of having achieved remission documented in this encounter Orders Appointment Requests Count Last Ordered Date Fi rst Ordered Date ONCBCN LAB APPOINTMENT 1 06/09/2020 documented in this encounter Additional Health Concerns Infection Onset Date Last Indicated Resolved Time C. difficile Comment:Backloaded December 21, 2010 09/21/2010 09/21/2010 documented as of this encounter Care Teams Pizza Driver Relationship Specialty Start Date End Date Lenin Ventura MD [address] [place] [id number] PCP - General 07/06/16 Lenin Ventura MD [address] [employer] [address] 07/06/16 Burt Dos Santos MD PhD [address] [employer] [address] Medical Oncologist/Business Coordinator Medical Oncology 06/16/19 documented as of this encounter
--- OUTSIDE RECORDS SUMMARY | 2024-02-22 08:31 | XMS_ITS | Encounter Summary ---
Author Organization [facility] Address [address] [place] [address] Phone Care Team Providers Care Md Do Resident Urgent Care Name Role Phone Lenin Ventura MD Primary Care Provider [phone] Lenin Ventura MD Unavailable [phone] Burt Dos Santos MD PhD Unavailable [phone] Encounter Details Date Type Department Care Team (Late st Contact Info) Description 12/01/2019 Orders Only [facility] Bone Marrow Transplant [address] [facility] 7th Floor, [place] [address] Burt Dos Santos MD PhD [address] DIV IM BONE MARROW TRANSPLANT[address] [place], [place] [id number] CLL (chronic lymphocytic leukemia) ([facility]) Social History Tobacco Use Types Packs/Day Years Used Date Smoking Tobacco: Former Smokeless Tobacco: Never Alcohol Use Standard Drinks/Week Comments Not Currently 0 (1 standard drink = 0.6 oz pur e alcohol) Sex and Gender Information Value Date Recorded Sex Assigned at Not on file 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 Gender Identity Not on file Sexual Orientation Not on file documented as of this encounter Ordered Prescriptions Prescription Sig Dispense Quantity Refills Last Filled Start Date End Date acyclovir (ZOVIRAX) 200 mg capsuleIndications :CLL (chronic lymphocytic leukemia) ([facility]) Take 1 capsule (200 mg total) by mouth 2 (two) times a day 180 capsule 3 12/01/2019 0 documented in this encounter Plan of Treatment Not on file documented as of this encounter Visit Diagnoses Diagnosis CLL (chronic lymphocytic leukemia) (HCC) Chronic lymphoid leukemia, without mention of having achieved remission documented in this encounter Discontinued Medications Medication Sig Discontinue Reason Start Date End Da te acyclovir (ZOVIRAX) 200 mg capsuleIndications:CLL (chronic lymphocytic leukemia) (HCC) Take 2 capsules by mouth twice daily Reorder 05/01/2019 12/01/2019 documented as of this encounter Additional Health Concerns Infection Onset Date Last Indicated Resolved Time C. difficile Comment:Backloaded December 21, 2010 09/21/2010 09/21/2010 documented as of this encounter Care Teams Md Do Resident Urgent Care Relationship Specialty Start Date End Date Lenin Ventura MD [address] [employer] [address] PCP - General 07/06/16 Lenin Ventura MD [facility] [address] [employer] [address] [place] [address] 07/06/16 Burt Dos Santos MD PhD [address] [address] Medical Oncologist/Third Rigger Medical Oncology 06/16/19 documented as of this encounter
--- OUTSIDE RECORDS SUMMARY | 2024-02-22 08:31 | XMS_ITS | Encounter Summary ---
Author Organization [facility] Address [address] [place] [address] Phone Care Team Providers Care Carbide Powder Processor Name Role Phone Lenin Ventura MD Primary Care Provider [phone] Lenin Ventura MD Unavailable [phone] Burt Dos Santos MD PhD Unavailable [phone] Encounter Details Date Type Department Care Team (Late st Contact Info) Description 03/17/2020 11:30 AM PAYABLE PROCESSOR Office Visit [facility] [address] [facility] Advanced Medicine 7th Floor, [place] [address] Burt Dos Santos MD PhD [address] DIV IM BONE MARROW TRANSPLANT[address] [place] [address] CLL (chronic lymphocytic leukemia) ([facility]) Social History Tobacco Use Types Packs/Day Years Used Date Smoking Tobacco: Former Smokeless Tobacco: Never Alcohol Use Standard Drinks/Week Comments Not Currently 0 (1 standard drink = 0.6 oz pur e alcohol) Sex and Gender Information Value Date Recorded Sex Assigned at Not on file 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 Gender Identity Not on file Sexual Orientation Not on file documented as of this encounter Last Filed Vital Signs Vital Sign Reading Time Taken Comments Blood Pressure 136/83 03/17/2020 10:35 AM PAYABLE PROCESSOR Pulse 81 03/17/2020 10:35 AM PAYABLE PROCESSOR Temperature 36.4 ??C (97.6 ??F) 03/17/2020 1 0:35 AM PAYABLE PROCESSOR Respiratory Rate 18 03/17/2020 10:3 5 AM PAYABLE PROCESSOR Oxygen Saturation 96% 03/17/2020 10: 35 AM PAYABLE PROCESSOR Inhaled Oxygen Concentration - - Weight 128.2 kg (282 lb 9.6 oz) 021 10:35 AM PAYABLE PROCESSOR Height 190 cm (6' 2.8 ) 03/17/2020 10:3 5 AM PAYABLE PROCESSOR Body Mass Index 35.51 03/17/2020 10:35 AM PAYABLE PROCESSOR documented in this encounter Progress Notes * MasticMagali, GLASS FORMING ENGINEER - 03/17/2020 11:30 AM CST BMT Progress Note Oncology History CLL (chronic lymphocytic leukemia) ([facility]) 07/03/2005 Initial Diagnosis Lymphoma, [...] q2mo x 4; on clinical trial [facility] [id number] --> stable disease on CT; marrow 30-40% [...] up. He follows with ENT for hearing problems.. He is feeling better today. He denies fevers, chills. He has no nausea, vomiting, diarrhea. He has not noticed any new lumps or bumps. He last got IVIG in December 2019.. Outpatient Encounter Medications as of 03/17/2020: ??? acyclovir (ZOVIRAX) 200 mg capsule, Take [...] 0 Performance Status: 1 Objective Vitals: BP: 136/83 Temp: 36.4 ??C (97.6 ??F) Pulse: 81 Resp: 18 SpO2: 96 % Height: 190 cm (6' 2.8 ) Weight: 128.2 kg (282 lb 9.6 oz) Physical exam: In no acute distress HEENT:schlera white Lungs:CTA tawny Heart:RRR Abdomen:soft, non-tender Extremities:no edema Skin:no rash Neuro:no focal deficits Nodes: previously palpable sub-mental LAD is now resolved. Lab/Radiology/Diagnostic Review: CBC: Lab Results Component Value Date/Time WBC 13.7 (H) 03/17/2020 10:24 AM WBC 13.7 (H) 04/10/2019 03:03 PM HGB 15.0 03/17/2020 10:24 AM HGB 14.2 04/10/2019 03:03 PM HCT 44.7 03/17/2020 10:24 AM HCT 41.2 04/10/2019 03:03 PM LABPLAT 163 03/17/2020 10:24 AM LABPLAT 158 04/10/2019 03:03 PM NEUTROABS 4.4 03/17/2020 10:24 AM NEUTROABS 4,590 04/10/2019 03:03 PM CMP: Lab Results Component Value Date/Time SODIUM 140 03/17/2020 10:24 AM POTASSIUM 5.2 (H) 03/17/2020 10:24 AM CO2 29 03/17/2020 10:24 AM BUNSER 28 (H) 03/17/2020 10:24 AM GLUCOSE 104 03/17/2020 10:24 AM CREATININE 0.85 03/17/2020 10:24 AM CALCIUM 9.7 03/17/2020 10:24 AM CHLORIDE 103 03/17/2020 10:24 AM ALBUMIN 4.8 03/17/2020 10:24 AM AST 17 03/17/2020 10:24 AM ALT 20 03/17/2020 10:24 AM ALKPHOS 68 03/17/2020 10:24 AM BILITOT 0.6 03/17/2020 10:24 AM PROT 6.9 03/17/2020 10:24 AM ANIONGAP 8 03/17/2020 10:24 AM LDH: Lab Results Component Value Date/Time LDH 210 03/17/2020 10:[address] shows modest improvement from October, representing an ongoing [facility]. Assessment and Plan: Mr. Abdullahi is a [...] We will continue to moniter his IgG, 513 today. He will hopefully get his COVID vaccine soon, then we will proceed with IVIG after immunization. ?? 3.?Thyroid nodule.?We will continue to follow this expectantly. ?? As always, the patient knows to contact our office with any questions or concerns in the interim. Cosigned by Burt Dos Santos MD PhD at 03/17/2020 1:24 PM PAYABLE PROCESSOR BLE PROCESSOR BLE PROCESSOR documented in this encounter Nursing Notes * Roberta Burnett RN - 03/17/2020 11:30 AM CST CLL on imbruvica. Doing well, ROV In 3 months. If he gets a COVID vaccine, he will hold his drug 1 week prior and 5 weeks after. ROV in 3 months BLE PROCESSOR documented in this encounter Plan of Treatment Not on file documented as of this encounter Results * (ABNORMAL) IgG (06/09/2020 9:14 AM CDT) Immunoglobulin G 369.0(L) 700.0 - 1,600.0 mg/dL [facility] Blood specimen (specimen) 06/09/2020 9:14 AM CDT 06/09/2020 9:31 AM CDT Magali S. Mastic GLASS FORMING ENGINEER LAB BLOOD ORDERABLES Final Res ult Performing Organization Address [facility] Co de Phone Number [facility] [place] [address] * Lactate dehydrogenase (LD) (06/09/2020 9:14 AM CDT) Lactate dehydrogenase (LDH) 203 100 - 250 Units/L [facility] Comment:Testing performed by : [facility], [address] [place] [phone] Blood specimen (specimen) 06/09/2020 9:14 AM CDT 06/09/2020 9:15 AM CDT Magali S. Mastic GLASS FORMING ENGINEER LAB BLOOD ORDERABLES Final Res ult Performing Organization Address [facility] de Phone Number [facility] Department [place] [address] * (ABNORMAL) Comprehensive metabolic panel (06/09/2020 9:14 AM CDT) Pathologist [facility] Sodium 138 135 - 145 mmol/L [facility] Comment:Testing performed by : [facility], [address] [place] [phone] Potassium, pl 4.8 3.3 - 4.9 mmol/L [facility] Comment:Testing performed by : [facility], [address] [place] [phone] Chloride 103 97 - 110 mmol/L [facility] Comment:Testing performed by : [facility], [address] [place] [phone] CO2 29 22 - 32 mmol/L [facility] Comment:Testing performed by : [facility], [address] [place] [phone] Anion gap 6 2 - 15 mmol/L [facility] Comment:Testing performed by : [facility], [address] [place] [phone] BUN 19 8 - 25 mg/dL [facility] Comment:Testing performed by : [facility], [address] [place] [phone] Creatinine 0.85 0.80 - 1.30 mg/dL [facility] Comment:Testing performed by : [address] [phone] Glucose 120 70 - 199 mg/dL [facility] [...] was last revised 2017. Testing performed by: [place] [id number] Calcium 9.9 8.5 - 10.3 mg/dL [facility] Comment:Testing performed by : [address] [phone] Bilirubin, total 0.7 0.1 - 1.2 mg/dL [facility] Comment:Testing performed by : [address] [phone] Protein, pl 6.4(L) 6.5 - 8.5 g/dL [facility] Comment:Testing performed by : [address] [phone] Albumin 4.7 3.5 - 5.0 g/dL [facility] Comment:Testing performed by : [address] [phone] Alk phos 72 40 - 130 Units/L [facility] Comment:Testing performed by : [place] [id number] ALT 15 7 - 55 Units/L [facility] Comment:Testing performed by : [address] [phone] AST 14 10 - 50 Units/L [facility] Comment:Testing performed by : [facility], [address] [place] [phone] Blood specimen (specimen) 06/09/2020 9:14 AM CDT 06/09/2020 9:15 AM CDT us Magali Phelan Mastic GLASS FORMING ENGINEER LAB BLOOD ORDERABLES Final Res ult [facility] [place] [address] * (ABNORMAL) CBC with auto differential (06/09/2020 9:14 AM CDT) WBC 17.3(H) 3.8 - 9.8 K/cumm [facility] Comment:Testing performed by : [address] [phone] Hgb 13.6(L) 13.8 - 17.2 g/dL [facility] Comment:Testing performed by : [facility], [address] [place] [phone] Hct 41.1 40.7 - 50.3 % [facility] Comment:Testing performed by : [facility], [address] [place] [phone] Plt 142 140 - 440 K/cumm [facility] Comment:Testing performed by : [address] [phone] MPV 11.6(H) 6.8 - 10.4 fL [facility] Comment:Testing performed by : [address] [phone] RBC 4.20(L) 4.50 - 5.70 M/cumm [facility] Comment:Testing performed by : [address] [phone] MCV 97.9(H) 80.0 - 97.6 fL [facility] Comment:Testing performed by : [address] [phone] MCH 32.5 26.7 - 33.7 pg [facility] Comment:Testing performed by : [facility], [address] [place] [phone] MCHC 33.2 32.7 - 35.5 g/dL [facility] Comment:Testing performed by : [facility], [address] [place] [phone] RDW CV 16.5(H) 11.8 - 14.6 % [facility] Comment:Testing performed by : [facility], [address] [place] [phone] NRBC abs 0.01 0.00 - 0.01 K/cumm [facility] Comment:Testing performed by : [facility], [address] [place] [phone] Blood specimen (specimen) 06/09/2020 9:14 AM CDT 06/09/2020 9:15 AM CDT Magali Stapleton GLASS FORMING ENGINEER LAB BLOOD ORDERABLES Final Res ult [facility] [place] [address] documented in this encounter Visit Diagnoses Diagnosis CLL (chronic lymphocytic leukemia) (HCC) Chronic lymphoid leukemia, without mention of having achieved remission documented in this encounter Historical Medications * This list may reflect changes made after this encounter. Medication Sig Dispense Quantity Refills Last Filled Start D ate End Date sildenafiL (VIAGRA) 100 mg tabletIndications:CLL (chronic lymphocytic leukemia) (HCC) 03/14/2020 added in this encounter Orders Appointment Requests Count Last Ordered Date Fi rst Ordered Date ONCBCN CLINIC APPOINTMENT REQUEST 2 021 03/17/2020 ONCBCN LAB APPOINTMENT 1 06/09/2020 documented in this encounter Additional Health Concerns Infection Onset Date Last Indicated Resolved Time C. difficile Comment:Backloaded December 21, 2010 09/21/2010 09/21/2010 documented as of this encounter Care Teams Carbide Powder Processor Relationship Specialty Start Date End Date Lenin Ventura MD [address] [address] PCP - General 07/06/16 Lenin Ventura MD [address] [id number] 07/06/16 Burt Dos Santos MD PhD [address] [id number] Medical Oncologist/Infusion Therapy Nurse Medical Oncology 06/16/19 documented as of this encounter
--- OUTSIDE RECORDS SUMMARY | 2024-02-22 08:31 | XMS_ITS | Encounter Summary ---
Author Organization [facility] Address [address] [place] [address] Phone Care Team Providers Care Brain Surgeon Name Role Phone Lenin Ventura MD Primary Care Provider [phone] Lenin Ventura MD Unavailable [phone] Burt Dos Santos MD PhD Unavailable [phone]- [phone] Encounter Details Date Type Department Care Team (Late st Contact Info) Description 09/18/2019 Orders Only [facility] [address] [facility] 7th Floor, [place] [address] Roberta Watkins RN CLL (chronic lymphocytic leukemia) (CMS/HCC) (Primary Dx); Hypogammaglobulinemia (CMS/HCC) Social History Tobacco Use Types Packs/Day Years Used Date Smoking Tobacco: Former Smokeless Tobacco: Never Alcohol Use Standard Drinks/Week Comments Not Currently 0 (1 standard drink = 0.6 oz pur e alcohol) Sex and Gender Information Value Date Recorded Sex Assigned at Not on file 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 difficile Comment:Backloaded December 21, 2010 09/21/2010 09/21/2010 documented as of this encounter Care Teams Brain Surgeon Relationship Specialty Start Date End Date Lenin Ventura MD [address] [place] [phone] PCP - General 07/06/16 Lenin Ventura MD [address] [place] [phone] 07/06/16 Burt Dos Santos MD PhD [address] [place] [phone] Medical Oncologist/[employer] Medical Oncology 06/16/19 documented as of this encounter
--- OUTSIDE RECORDS SUMMARY | 2024-02-22 08:31 | XMS_ITS | Encounter Summary ---
Author Organization [facility] Address [address] [place] [address] Phone Care Team Providers Care Technical Account Manager Name Role Phone Lenin Ventura MD Primary Care Provider [phone] Lenin Ventura MD Unavailable [phone] Burt Dos Santos MD PhD Unavailable [phone] Reason for Visit * Consultation (Routine) - Closed Specialty Diagnoses / Procedures Referred By Trent delgado Referred To Contact Oncology Diagnoses Hypogammaglobulinemia (HCC) Lenin Ventura MD [address] [facility] [address] [place] [address] Phone: tel: fax: Burt Dos Santos MD PhD [address] DIV [employer], [address] [place] [address] Phone: tel: fax: Referral ID Status Reason Start Date Expiration Date V isits Requested Visits Authorized [id number] Closed Specialty Services Required 07/16/2019 07/10/2020 12 12 Encounter Details Date Type Department Care Team (Late st Contact Info) Description 12/17/2019 8:30 AM CDT Lab [facility] Oncology [address] [facility] 7th [place] [address] [place] [address] CLL (chronic lymphocytic leukemia) (CMS/HCC); Hypogammaglobulinemia (CMS/HCC) Social History Tobacco Use Types Packs/Day Years Used Date Smoking Tobacco: Former Smokeless Tobacco: Never Alcohol Use Standard Drinks/Week Comments Not Currently 0 (1 standard drink = 0.6 oz pur e alcohol) Sex and Gender Information Value Date Recorded Sex Assigned at Not on file 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 Gender Identity Not on file Sexual Orientation Not on file documented as of this encounter Plan of Treatment Not on file documented as of this encounter Procedures Procedure Name Priority Date/Time Associated Diagnosis Comments MORPHOLOGIC SCREEN STAT 12/17/2019 8: 50 AM CDT CLL (chronic lymphocytic leukemia) (CMS/HCC) Hypogammaglobulinem ia (CMS/HCC) DIFFERENTIAL AUTO STAT 12/17/2019 8:5 0 AM CDT CLL (chronic lymphocytic leukemia) (CMS/HCC) Hypogammaglobulinem ia (CMS/HCC) CBC WITH AUTO DIFFERENTIAL STAT 12/17/2019 8:50 AM CDT CLL (chronic lymphocytic leukemia) (CMS/HCC) Hypogammaglobulinem ia (CMS/HCC) LACTATE DEHYDROGENASE STAT 12/17/2019 8:50 AM CDT CLL (chronic lymphocytic leukemia) (CMS/HCC) Hypogammaglobulinem ia (CMS/HCC) IGG STAT 12/17/2019 8:50 AM CDT CLL (chronic lymphocytic leukemia) (CMS/HCC) COMPREHENSIVE METABOLIC PANEL STAT 12/17/2019 8:50 AM CDT CLL (chronic lymphocytic leukemia) (CMS/HCC) Hypogammaglobulinem ia (CMS/HCC) documented in this encounter Results * Morphologic screen (12/17/2019 8:50 AM CDT) Morphologic Screen Original results obtained required verification by peripheral smear. [facility] Blood specimen (specimen) 12/17/2019 8:50 AM CDT 12/17/2019 8:58 AM CDT Burt Dos Santos MD PhD LAB BLOOD ORDERABLES Final Result [facility] Department [place] [address] * (ABNORMAL) Differential, auto (12/17/2019 8:50 AM CDT) Neutrophil abs 5.8 1.8 - 6.6 K/cumm [facility] Comment:Testing performed by : [facility], [address] [place] [phone] Lymphocyte abs 12.3(H) 1.2 - 3.3 K/cumm [facility] Comment:Testing performed by : [facility], [address] [place] [phone] Monocyte abs 1.5(H) 0.2 - 1.2 K/cumm [facility] Comment:Testing performed by : [facility], [address] [place] [phone] Eosinophil abs 0.2 0.0 - 0.5 K/cumm [facility] Comment:Testing performed by : [facility], [address] [place] [address] Basophil abs 0.1 0.0 - 0.2 K/cumm [facility] Comment:Testing performed by : [facility], [address] [place] [phone] Neutrophil pct 29.2 % [facility] Comment: Interpretive Data Percent cell count reference ranges are not reported, since discordance with absolute values may lead to misinterpretation of CBC data. Current Interpretive Data was last revised on 2017. Testing performed by: [facility], [address] [place] [phone] Lymphocyte pct 61.7 % [facility] Comment: Interpretive Data Percent cell count reference ranges are not reported, since discordance with absolute values may lead to misinterpretation of CBC data. Current Interpretive Data was last revised on 2017. Testing performed by: [facility], [address] [place] [phone] Monocyte pct 7.6 % [facility] Comment:Testing performed by : [facility], [address] [place] [phone] Eosinophil pct 0.8 % [facility] Comment:Testing performed by : [facility], [address] [place] [phone] Basophil pct 0.7 % [facility] Comment:Testing performed by : [facility], [address] [place] [phone] Blood specimen (specimen) 12/17/2019 8:50 AM CDT 12/17/2019 8:58 AM CDT Burt Dos Santos MD PhD LAB BLOOD ORDERABLES Final Result Performing Organization Address [facility] [place] [address] * Lactate dehydrogenase (LD) (12/17/2019 8:50 AM CDT) Pathologist [facility] Lactate dehydrogenase (LDH) 187 100 - 250 Units/L [facility] Comment:Testing performed by : [facility], [address] [place] [phone] Blood specimen (specimen) 12/17/2019 8:50 AM CDT 12/17/2019 8:58 AM CDT Narrative [facility] - 12/17/2019 9:15 AM CDT Starting 10/21 us Burt Dos Santos MD PhD LAB BLOOD ORDERABLES Final Result Performing Organization Address [facility] de Phone Number [facility] [place] [address] * (ABNORMAL) IgG (12/17/2019 8:50 AM CDT) Immunoglobulin G 662.0(L) 700.0 - 1,600.0 mg/dL [facility] Blood specimen (specimen) 12/17/2019 8:50 AM CDT 12/17/2019 9:26 AM CDT Narrative [facility] - 12/17/2019 10:04 AM CDT Prior to IVIG Burt Dos Santos MD PhD LAB BLOOD ORDERABLES Final Result [facility] Department [place] [address] * (ABNORMAL) CBC with auto differential (12/17/2019 8:50 AM CDT) WBC 19.9(H) 3.8 - 9.8 K/cumm [facility] Comment:Testing performed by : [facility], [address] [place] [phone] Hgb 14.3 13.8 - 17.2 g/dL [facility] Comment:Testing performed by : [facility], [address] [place] [phone] Hct 41.8 40.7 - 50.3 % [facility] Comment:Testing performed by : [place] [phone] Plt 133(L) 140 - 440 K/cumm [facility] Comment:Testing performed by : [facility], [address] [place] [address] MPV 10.8(H) 6.8 - 10.4 fL [facility] Comment:Testing performed by : [address] [address] RBC 4.27(L) 4.50 - 5.70 M/cumm [facility] Comment:Testing performed by : [address] [address] MCV 98.1(H) 80.0 - 97.6 fL [facility] Comment:Testing performed by : [facility], [address] [place] [phone] MCH 33.4 26.7 - 33.7 pg [facility] Comment:Testing performed by : [address] [address] MCHC 34.1 32.7 - 35.5 g/dL [facility] Comment:Testing performed by : [address] [phone] RDW CV 16.0(H) 11.8 - 14.6 % [facility] Comment:Testing performed by : [facility], [address] [place] [phone] NRBC abs 0.02(H) 0.00 - 0.01 K/cumm [facility] Comment:Testing performed by : [facility], [address] [place] [phone] Blood specimen (specimen) 12/17/2019 8:50 AM CDT 12/17/2019 8:58 AM CDT Narrative [facility] - 12/17/2019 9:03 AM CDT Starting 10/21 Burt Dos Santos MD PhD LAB BLOOD ORDERABLES Final Result [facility] Department [place] [address] * (ABNORMAL) Comprehensive metabolic panel (12/17/2019 8:50 AM CDT) Sodium 138 135 - 145 mmol/L [facility] Comment:Testing performed by : [facility], [address] [place] [phone] Potassium, pl 5.3(H) 3.3 - 4.9 mmol/L [facility] Comment:Testing performed by : [facility], [address] [place] [phone] Chloride 101 97 - 110 mmol/L [facility] Comment:Testing performed by : [facility], [address] [place] [phone] CO2 29 22 - 32 mmol/L [facility] Comment:Testing performed by : [facility], [address] [place] [phone] Anion gap 8 2 - 15 mmol/L [facility] Comment:Testing performed by : [facility], [address] [place] [phone] BUN 23 8 - 25 mg/dL [facility] Comment:Testing performed by : [facility], [address] [place] [phone] Creatinine 0.78(L) 0.80 - 1.30 mg/dL [facility] Comment:Testing performed by : [facility], [address] [place] [phone] Glucose 123 70 - 199 mg/dL [facility] Comment: [...] was last revised 2017. Testing performed by: [place] [phone] Calcium 9.3 8.5 - 10.3 mg/dL [facility] Comment:Testing performed by : [place] [phone] Bilirubin, total 0.5 0.1 - 1.2 mg/dL [facility] Comment:Testing performed by : [place] [phone] Protein, pl 6.7 6.5 - 8.5 g/dL [facility] Comment:Testing performed by : [address] [address] Albumin 4.6 3.5 - 5.0 g/dL [facility] Comment:Testing performed by : [address] [address] Alk phos 76 40 - 130 Units/L [facility] Comment:Testing performed by : [place] [phone] ALT 16 7 - 55 Units/L [facility] Comment:Testing performed by : [place] [phone] AST 15 10 - 50 Units/L [facility] Comment:Testing performed by : [address] [phone] Blood specimen (specimen) 12/17/2019 8:50 AM CDT 12/17/2019 8:58 AM CDT Narrative [facility] - 12/17/2019 9:15 AM CDT Starting 10/21 Burt Dos Santos MD PhD LAB BLOOD ORDERABLES Final Result [facility] Department [place] [address] documented in this encounter Visit Diagnoses Diagnosis CLL (chronic lymphocytic leukemia) (HCC) Chronic lymphoid leukemia, without mention of having achieved remission Hypogammaglobulinemia (HCC) Unspecified hypogammaglobulinemia documented in this encounter Orders Outpatient Referral Count Last Ordered Date Fir st Ordered Date AMB REFERRAL TO ONCOLOGY 1 12/17/2019 Appointment Requests Count Last Ordered Date Fi rst Ordered Date ONCBCN LAB APPOINTMENT 1 12/17/2019 documented in this encounter Additional Health Concerns Infection Onset Date Last Indicated Resolved Time C. difficile Comment:Backloaded December 21, 2010 09/21/2010 09/21/2010 documented as of this encounter Care Teams Technical Account Manager Relationship Specialty Start Date End Date Lenin Ventura MD [address] [address] PCP - General 07/06/16 Lenin Ventura MD [address] [address] 07/06/16 Burt Dos Santos MD PhD [address] [address] Medical Oncologist/Coin Machine Collector Medical Oncology 06/16/19 documented as of this encounter
--- OUTSIDE RECORDS SUMMARY | 2024-02-22 08:31 | XMS_ITS | Encounter Summary ---
Author Organization [facility] Address [address] [place] [address] Phone Care Team Providers Care Support Services Specialist Name Role Phone Lenin Ventura MD Primary Care Provider [phone] Lenin Ventura MD Unavailable [phone] Burt Dos Santos MD PhD Unavailable [phone] Encounter Details Date Type Department Care Team (Late st Contact Info) Description 11/19/2019 6:45 AM CDT Lab [facility] Oncology 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 Gender Identity Not on file Sexual Orientation Not on file documented as of this encounter Plan of Treatment Not on file documented as of this encounter Procedures Procedure Name Priority Date/Time Associated Diagnosis Comments MORPHOLOGIC SCREEN STAT 11/19/2019 7: 04 AM CDT CLL (chronic lymphocytic leukemia) (CMS/HCC) DIFFERENTIAL AUTO STAT 11/19/2019 7:0 4 AM CDT CLL (chronic lymphocytic leukemia) (CMS/HCC) CBC WITH AUTO DIFFERENTIAL STAT 11/19/2019 7:04 AM CDT CLL (chronic lymphocytic leukemia) (CMS/HCC) IGG STAT 11/19/2019 7:04 AM CDT CLL (chronic lymphocytic leukemia) (CMS/HCC) Hypogammaglobulinem ia (CMS/HCC) COMPREHENSIVE METABOLIC PANEL STAT 11/19/2019 7:04 AM CDT CLL (chronic lymphocytic leukemia) (CMS/HCC) documented in this encounter Results * Morphologic screen (11/19/2019 7:04 AM CDT) [facility] Morphologic Screen Original results obtained required verification by peripheral smear. [facility] Blood specimen (specimen) 11/19/2019 7:04 AM CDT 11/19/2019 7:07 AM CDT Burt Dos Santos MD PhD LAB BLOOD ORDERABLES Final Result [facility] One [facility] [place] [address] * (ABNORMAL) Differential, auto (11/19/2019 7:04 AM CDT) [facility] Neutrophil abs 3.8 1.8 - 6.6 K/cumm [facility] Comment:Testing performed by : [facility], [address] [place] [phone] Lymphocyte abs 11.2(H) 1.2 - 3.3 K/cumm [facility] Comment:Testing performed by : [facility], [address] [place] [phone] Monocyte abs 1.1 0.2 - 1.2 K/cumm [facility] Comment:Testing performed by : [facility], [address] [place] [phone] Eosinophil abs 0.1 0.0 - 0.5 K/cumm [facility] Comment:Testing performed by : [facility], [address] [place] [phone] Basophil abs 0.1 0.0 - 0.2 K/cumm [facility] Comment:Testing performed by : [facility], [address] [place] [phone] Neutrophil pct 23.2 % [facility] Comment: Interpretive Data Percent cell count reference ranges are not reported, since discordance with absolute values may lead to misinterpretation of CBC data. Current Interpretive Data was last revised on 2017. Testing performed by: [facility], [address] [place] [phone] Lymphocyte pct 68.6 % [facility] Comment: Interpretive Data Percent cell count reference ranges are not reported, since discordance with absolute values may lead to misinterpretation of CBC data. Current Interpretive Data was last revised on 2017. Testing performed by: [facility], [address] [place] [phone] Monocyte pct 7.0 % [facility] Comment:Testing performed by : [facility], [address] [place] [phone] Eosinophil pct 0.6 % [facility] Comment:Testing performed by : [facility], [address] [place] [phone] Basophil pct 0.6 % [facility] Comment:Testing performed by : [facility], [address] [place] [phone] Blood specimen (specimen) 11/19/2019 7:04 AM CDT 11/19/2019 7:07 AM CDT Burt Dos Santos MD PhD LAB BLOOD ORDERABLES Final Result [facility] [place] [address] * (ABNORMAL) IgG (11/19/2019 7:04 AM CDT) Immunoglobulin G 663.0(L) 700.0 - 1,600.0 mg/dL [facility] Blood specimen (specimen) 11/19/2019 7:04 AM CDT 11/19/2019 7:50 AM CDT Narrative [facility] - 11/19/2019 9:14 AM CDT Starting 10/21 Burt Dos Santos MD PhD LAB BLOOD ORDERABLES Final Result [facility] Department [place] [address] * (ABNORMAL) CBC with auto differential (11/19/2019 7:04 AM CDT) WBC 16.4(H) 3.8 - 9.8 K/cumm [facility] Comment:Testing performed by : [facility], [address] [place] [phone] Hgb 13.9 13.8 - 17.2 g/dL [facility] Comment:Testing performed by : [address] [address] Hct 40.8 40.7 - 50.3 % [facility] Comment:Testing performed by : [facility], [address] [place] [phone] Plt 142 140 - 440 K/cumm [facility] Comment:Testing performed by : [address] [address] MPV 11.4(H) 6.8 - 10.4 fL [facility] Comment:Testing performed by : [address] [address] RBC 4.17(L) 4.50 - 5.70 M/cumm [facility] Comment:Testing performed by : [address] [phone] MCV 97.9(H) 80.0 - 97.6 fL [facility] Comment:Testing performed by : [address] [address] MCH 33.3 26.7 - 33.7 pg [facility] Comment:Testing performed by : [address] [address] MCHC 34.0 32.7 - 35.5 g/dL [facility] Comment:Testing performed by : [facility], [address] [place] [phone] RDW CV 15.6(H) 11.8 - 14.6 % [facility] Comment:Testing performed by : [facility], [address] [place] [phone] NRBC abs 0.03(H) 0.00 - 0.01 K/cumm [facility] Comment:Testing performed by : [facility], [address] [place] [phone] Blood specimen (specimen) 11/19/2019 7:04 AM CDT 11/19/2019 7:07 AM CDT Narrative [facility] - 11/19/2019 7:10 AM CDT Prior to IVIG Burt Dos Santos MD PhD LAB BLOOD ORDERABLES Final Result [facility] [place] [address] * (ABNORMAL) Comprehensive metabolic panel (11/19/2019 7:04 AM CDT) Sodium 139 135 - 145 mmol/L [facility] Comment:Testing performed by : [facility], [address] [place] [phone] Potassium, pl 4.5 3.3 - 4.9 mmol/L [facility] Comment:Testing performed by : [facility], [address] [place] [phone] Chloride 106 97 - 110 mmol/L [facility] Comment:Testing performed by : [facility], [address] [place] [phone] CO2 28 22 - 32 mmol/L [facility] Comment:Testing performed by : [address] [address] Anion gap 5 2 - 15 mmol/L [facility] Comment:Testing performed by : [address] [address] BUN 21 8 - 25 mg/dL [facility] Comment:Testing performed by : [facility], [address] [place], [place] [phone] Creatinine 0.71(L) 0.80 - 1.30 mg/dL [facility] Comment:Testing performed by : [facility], [address] [place] [phone] Glucose 113 70 - 199 mg/dL [facility] Comment: [...] was last revised 2017. Testing performed by: [place] [phone] Calcium 8.8 8.5 - 10.3 mg/dL [facility] Comment:Testing performed by : [facility], [address] [place] [phone] Bilirubin, total 0.4 0.1 - 1.2 mg/dL [facility] Comment:Testing performed by : [address] [phone] Protein, pl 6.2(L) 6.5 - 8.5 g/dL [facility] Comment:Testing performed by : [address] [phone] Albumin 4.4 3.5 - 5.0 g/dL [facility] Comment:Testing performed by : [address] [phone] Alk phos 80 40 - 130 Units/L [facility] Comment:Testing performed by : [place] [phone] ALT 15 7 - 55 Units/L [facility] Comment:Testing performed by : [address] [phone] AST 13 10 - 50 Units/L [facility] Comment:Testing performed by : [facility], [address] [facility] [address] Blood specimen (specimen) 11/19/2019 7:04 AM CDT 11/19/2019 7:07 AM CDT Narrative [facility] - 11/19/2019 7:24 AM CDT Prior to IVIG Burt Dos Santos MD PhD LAB BLOOD ORDERABLES Final Result [facility] [place] [address] documented in this encounter Visit Diagnoses Diagnosis CLL (chronic lymphocytic leukemia) (HCC) Chronic lymphoid leukemia, without mention of having achieved remission Hypogammaglobulinemia (HCC) Unspecified hypogammaglobulinemia documented in this encounter Orders Appointment Requests Count Last Ordered Date Fi rst Ordered Date ONCBCN LAB APPOINTMENT 1 11/19/2019 documented in this encounter Additional Health Concerns Infection Onset Date Last Indicated Resolved Time C. difficile Comment:Backloaded December 21, 2010 09/21/2010 09/21/2010 documented as of this encounter Care Teams Support Services Specialist Relationship Specialty Start Date End Date Lenin Ventura MD [address] [address] PCP - General 07/06/16 Lenin Ventura MD [address] [address] 07/06/16 Burt Dos Santos MD PhD [address] [address] Medical Oncologist/Kiln Pusher Medical Oncology 06/16/19 documented as of this encounter
--- OUTSIDE RECORDS SUMMARY | 2024-02-22 08:31 | XMS_ITS | Encounter Summary ---
Author Organization [facility] Address [address] [place] [address] Phone Care Team Providers Care Dehydrogenation Operator Name Role Phone Lenin Ventura MD Primary Care Provider [phone] Lenin Ventura MD Unavailable [phone] Burt Dos Santos MD PhD Unavailable [phone] Reason for Visit * Episode Based Medications (Routine) - Authorized Specialty Diagnoses / Procedures Referred By Contguillermo t Referred To Contact Diagnoses Hypogammaglobulinemia (HCC) Procedures AK GAMUNEX-C/GAMMAKED GAMUNEX Burt Dos Santos MD PhD [address] DIV IM BONE MARROW TRANSPLANT, [address] [place] [address] Phone: tel: fax: [facility] and [facility] [place] [address] [facility] Medicine 7th [place] [address] Phone: tel: Referral ID Status Reason Start Date Expiration Date V isits Requested Visits Authorized [id number] Authorized 10/19/2019 08/02/2024 1 38 Encounter Details Date Type Department Care Team (Late st Contact Info) Description 08/04/2020 7:30 AM CDT Infusion [facility] Oncology [address] [place] [address] [place] [address] CLL (chronic lymphocytic leukemia) (CMS/HCC) (Primary Dx); Hypogammaglobulinemia (CMS/HCC) Social History Tobacco Use Types Packs/Day Years Used Date Smoking Tobacco: Former Smokeless Tobacco: Never Alcohol Use Standard Drinks/Week Comments Not Currently 0 (1 standard drink = 0.6 oz pur e alcohol) Sex and Gender Information Value Date Recorded Sex Assigned at Not on file 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 Gender Identity Not on file Sexual Orientation Not on file documented as of this encounter Last Filed Vital Signs Vital Sign Reading Time Taken Comments Blood Pressure 152/74 08/04/2020 10:23 AM CDT Pulse 70 08/04/2020 10:23 AM CDT Temperature 37.1 ??C (98.8 ??F) 08/04/2020 1 0:23 AM CDT Respiratory Rate 16 08/04/2020 10:2 3 AM CDT Oxygen Saturation 97% 08/04/2020 10: 23 AM CDT Inhaled Oxygen Concentration - - Weight 127.4 kg (280 lb 12.8 oz) 08/04/2020 7:53 AM CDT Height - - Body Mass Index 36.05 06/09/2020 9:26 AM CDT documented in this encounter Nursing Notes * Kalpana Briseno RN - 08/04/2020 7:30 AM CDT Oncology Nursing Note [facility] Jeff Abdullahi is a 69 y.o. male who presents for treatment cycle 8, day(s) 1 of IVIG. Pre-treatment Nursing Assessment Nursing Assessment Appetite:: Good Diarrhea:: No Constipation:: No Existing Patients: Any falls since your last visit? : No New Patients: Any falls since your last visit? : N/A Fatigue:: Occassional Mouth Sores:: No Nausea/Vomiting:: No Pain:: No Peripheral Neuropathy: : No Pt states has potential to be ? : N/A Shortness of Breath?: No BP: 152/74 Temp: 37.1 ??C (98.8 ??F) Temp src: Oral Pulse: 70 Resp: 16 SpO2: 97 % Weight: 127.4 kg (280 lb 12.8 oz) Treatment Patient: met treatment parameters Pre [...] mg 650 mg, oral, Once, On Paloma 08/04/20 at 0830, For 1 dose, Please give 30 minutes prior to IVIG.Indications:Hypogamm aglobulinemia (HCC) Given 08/04/2020 8:11 AM CDT 650 mg dextrose 5% infusion 20 mL/hr, intravenous, As needed, As needed- back up fluids for infusions, Starting on Paloma 08/04/20 at 0827Indications:CLL (chronic lymphocytic leukemia) (HCC),Hypogammaglobulinem ia (HCC) New Bag 08/04/2020 8:55 AM CDT 20 mL/hr 20 mL/hr diphenhydrAMINE (BENADRYL) tab/cap 25 mg 25 mg, oral, Once, On Paloma 08/04/20 at 0830, For 1 dose, Give 30 minutes prior to IVIG.Indications:Hypogamm aglobulinemia (HCC) Given 08/04/2020 8:11 AM CDT 25 mg immune globulin (GAMUNEX-C,GAMMAKED) 10 % infusion 35 g 35 g (rounded from 32.88 g = 400 mg/kg ? 82.2 kg Kimball weight), intravenous, Once, On Paloma 08/04/20 at 0830, For 1 dose, GamuNEX C SUBSEQUENT Infusion, [...] of 4.8 mL/kg/hrIndications:Hypog ammaglobulinemia (HCC) Rate/Dose Change 08/04/2020 10:55 AM CDT 395 mL/hr Rate/Dose Change 08/04/2020 10:38 AM CDT 345 mL /hr Rate/Dose Change 08/04/2020 10:23 AM CDT 296 mL /hr documented in this encounter Orders Nursing Count Last Ordered Date First Orde red Date ONCBCN NURSING COMMUNICATION [id number] 2 0 08/04/2020 VITAL SIGNS INTRA-INFUSION 1 08/04/2020 Appointment Requests Count Last Ordered Date Fi rst Ordered Date INFUSION APPT REQUEST 300 MIN 1 08/04/2020 documented in this encounter Additional Health Concerns Infection Onset Date Last Indicated Resolved Time C. difficile Comment:Backloaded December 21, 2010 09/21/2010 09/21/2010 documented as of this encounter Care Teams Dehydrogenation Operator Relationship Specialty Start Date End Date Lenin Ventura MD [address] [address] PCP - General 07/06/16 Lenin Ventura MD [address] [address] 07/06/16 Burt Dos Santos MD PhD [address] [address] Medical Oncologist/Underwriting Support Specialist Medical Oncology 06/16/19 documented as of this encounter
--- OUTSIDE RECORDS SUMMARY | 2024-02-22 08:32 | XMS_ITS | Encounter Summary ---
Author Organization [facility] Address [address] [place] [address] Phone Care Team Providers Care Ecosystem Ecology Professor Name Role Phone Lenin Ventura MD Primary Care Provider [phone] Lenin Ventura MD Unavailable [phone] Burt Dos Santos MD PhD Unavailable [phone] Encounter Details Date Type Department Care Team (Late st Contact Info) Description 06/25/2019 10:45 AM CDT Office Visit [facility] Bone Marrow Transplant [address] [facility] Advanced Medicine 7th Floor, [place] [address] Burt Dos Santos MD PhD [address] DIV IM BONE MARROW TRANSPLANT, [address] [place] [address] CLL (chronic lymphocytic leukemia) (CMS/[facility]) (Primary Dx); Constipation, unspecified constipation type; Zinc deficiency; B12 deficiency; Vitamin D deficiency; Magnesium deficiency; Insomnia, unspecified type Social History Tobacco Use Types Packs/Day Years Used Date Smoking Tobacco: Former Smokeless Tobacco: Never Alcohol Use Standard Drinks/Week Comments Not Currently 0 (1 standard drink = 0.6 oz pur e alcohol) Sex and Gender Information Value Date Recorded Sex Assigned at Not on file 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 Gender Identity Not on file Sexual Orientation Not on file documented as of this encounter Last Filed Vital Signs Vital Sign Reading Time Taken Comments Blood Pressure 128/75 06/25/2019 10:31 AM CDT Pulse 89 06/25/2019 10:31 AM CDT Temperature 36.9 ??C (98.4 ??F) 06/25/2019 1 0:31 AM CDT Respiratory Rate 18 06/25/2019 10:3 1 AM CDT Oxygen Saturation 97% 06/25/2019 10: 31 AM CDT Inhaled Oxygen Concentration - - Weight 114.2 kg (251 lb 12.8 oz) 2019 10:31 AM CDT Height - - Body Mass Index 30.65 06/12/2019 9:48 AM CDT documented in this encounter Patient Instructions * Patient Instructions* Nohemi Burnett RN - 06/25/2019 10:45 AM CDT Burt Dos Santos MD, PhD carpenter apprentice Magali Stapleton NP Nurse Practitioner Nohemi Burnett RN, BSN Transplant Nurse Coordinator Yolanda Goel Bret Tooling Inspector Clinic Locations Every w/ ??? Dr. Dos Santos ??? ASHVIN De Los Santos ??? ALICIA Granados [facility] 7th Floor of [address] [address] For Appointment Changes ?? please call or [phone] speak with one of the secretaries or Medical Assistants For refills ?? Please call your pharmacy, request in [facility], or contact your medical staff services manager at [phone] Call & Leave Your Nurse Coordinator a Message at [phone] for: ??? General Questions ??? Extreme fatigue [...] and 5:00 PM ?? Please call or [phone] to page your Nurse Coordinator Saturday - Saturday AFTER 5:00 PM, WEEKENDS & HOLIDAYS ?? CALL THE HOSPITAL [employer]CHOOL PROFESSIONAL AT [phone] AND ASK TO HAVE THE BMT ON-CALL PROVIDER PAGED. For Family Medical Leave Act (FMLA) Paperwork ?? Please allow up to 10 business days to complete the paperwork ?? For questions, please call [phone] and speak with your Tooling Inspector ?? You can fax the paperwork to [phone] Medical Records ?? This information is protected by HIPAA. Patients or their legal life assurance representative may obtain copiesof their records, or have copies sent to other facilities by completing a records release while youare in our office. ?? If you aren't onsite, please call [facility] Information Release Services at [phone]. There may be a fee in obtaining medical records for your personal use. Please allow up to 30 days for the request to be processed. If needed sooner, please call [phone] [facility] Billing For questions regarding bills, use the appropriate contact information below: ?? [facility] ?? Call [phone] or toll-free [phone] ?? Online bill payment is available. For more information about this service, visit the [facility] website. ?? [email or web address] ?? [facility] ?? Call [phone] or toll-free [phone] ?? Online bill payment is available. For more information about this service, visit the [email or web address] website. ?? [email or web address] For a Primary Care doctor, please call [phone] documented in this encounter Ordered Prescriptions Prescription Sig Dispense Quantity Refills Last Filled Start Date End Date melatonin 5 mg capsuleIndications :Insomnia, unspecified type Take 5 mg by mouth nightly as needed (insomnia) 0 06/25/2019 magnesium oxide (MAG-OX) 250 mg (150.8 mg elemental) tabletIndications: hypomagnesemia Take 1 tablet (250 mg total) by mouth daily 06/25/2019 cholecalciferol (cholecalciferol) 1000 unit tabletIndications: Vitamin D deficiency Take 1 tablet (1,000 Units total) by mouth daily 30 tablet 11 06/25/2019 cyanocobalamin (Vitamin B-12) 1,000 mcg tabletIndications: Prevention of Vitamin B12 Deficiency Take 1 tablet (1,000 mcg total) by mouth daily 30 tablet 11 06/25/2019 zinc 50 mg tabletIndications: Zinc deficiency Take 50 mg by mouth daily 30 each 06/25/2019 polyethylene glycol (MIRALAX) 17 gram packetIndications: constipation Take 1 packet (17 g total) by mouth daily 30 packet 06/25/2019 0 documented in this encounter Progress Notes * Burt Dos Santos MD PhD - 06/25/2019 10:45 AM CDT BMT Progress Note CLL (chronic lymphocytic leukemia) ([facility]) 07/03/2005 Initial Diagnosis Lymphoma, [...] then q2mo x 4; on clinical trial [facility] [id number] --> stable disease on CT; marrow 30-40% invovled 09/01/15 05/29/2018 - Targeted Therapy Imbruvica 420mg daily Subjective Interval History Mr. Abdullahi returns post hospital follow up visit. He was admitted with sinusitis, otitis, and headaches. He had stopped his imbruvica in anticipation of a sinus surgery, and then was off for about 1-2 weeks. He noticed his lymph glands enlarged after about a week off of the imbruvica. He was admitted, and a CT revealed severe sinusitis with otitis and mastoiditis. He was treated with IV abx, andENT placed TM tubes. His IgG was <400 and he received IVIG on 06/12. He left the hospital on levofloxacin, and completes his course in the next couple of days. He had a telehealth visit with Dr. Cass Olivia, and is improving. Outpatient Encounter Medications as of 06/25/2019: ??? acyclovir (ZOVIRAX) 200 mg capsule, Take 2 capsules by mouth twice daily, Disp: 180 capsule, Rfl: 3 ??? ALPRAZolam (XANAX) 0.25 mg tablet, Take 0.5-1 tablets by mouth 3 (three) times a day as needed for anxiety, Disp: , Rfl: ??? gnjmrvpxpl-sneaxcewgrrwn-sghnoufh (FIORICET) 50-300-40 mg per capsule, Take 1 capsule by mouth every 6 (six) hours as needed for headaches, Disp: , Rfl: ??? cetirizine (ZyrTEC) 10 mg tablet, Take 10 mg by mouth daily, Disp: , Rfl: ??? ciprofloxacin-dexAMETHasone (CIPRODEX) otic suspension, Administer 4 drops into each ear 2 (two) times a day for 14 days, Disp: 7.5 mL, Rfl: 0 ??? escitalopram (LEXAPRO) 10 mg tablet, Take 1 tablet by mouth daily, Disp: , Rfl: ??? fluticasone (FLONASE) 50 mcg/actuation nasal spray, Administer 2 sprays into each nostril daily, Disp: , Rfl: ??? levoFLOXacin (LEVAQUIN) 750 mg tablet, Take 1 tablet (750 mg total) by mouth daily for 14 days,Disp: 14 tablet, Rfl: 0 ??? mupirocin (BACTROBAN) 2 % nasal ointment, Mix Neilmed packet with warm sterile water and dissolve 1/2 tube of mupirocin ointment into solution., Disp: 14 g, Rfl: 0 ??? mupirocin (BACTROBAN) 2 % ointment, Apply 1 inch of ointment to nasal irrigations 3x's daily, Disp: 30 g, Rfl: 3 ??? oxyCODONE-acetaminophen (PERCOCET) 7.5-325 mg per tablet, Take 1 tablet by mouth every 6 (six) hours as needed for pain, Disp: , Rfl: ??? predniSONE (DELTASONE) 50 mg tablet, Take 50 mg by mouth daily, Disp: , Rfl: ??? ranitidine (ZANTAC) 150 mg capsule, Take 150 mg by mouth daily , Disp: , Rfl: ??? sodium chloride-sodium bicarbonate (NEILMED SINUS RINSE, AYR) packet with rinse device, Administer 240 mL (1 packet total) into each nostril 3 (three) times a day for 14 days, Disp: 50 each, Rfl:0 ? ? [DISCONTINUED] al & mag hydroxide gmvzewgcico-batikhxekrziema-qxmnpiujs-nystatin (MAGIC MOUTHWASH) suspension 1-1-1-1, Swish and swallow 10 mL every 4 (four) hours as needed (mouth pain), Disp: 240 mL, Rfl: 1 ??? [DISCONTINUED] ciprofloxacin-fluocinolone (OTOVEL) otic solution, Administer 0.25 mL into each ear 4 (four) times a day for 14 days, Disp: 56 each, Rfl: 0 ??? [DISCONTINUED] clindamycin (CLEOCIN) 300 mg capsule, Take 1 capsule by mouth 3 (three) times a day, Disp: , Rfl: ??? [DISCONTINUED] cyanocobalamin, vitamin B-12, (VITAMIN B-12 ORAL), Take 1,000 mcg by mouth daily, Disp: , Rfl: ??? [DISCONTINUED] doxycycline 100 mg tablet, Take 1 tablet by mouth 2 (two) times a day, Disp: , Rfl: ??? [DISCONTINUED] HYDROcodone-acetaminophen (NORCO) 5-325 mg per tablet, Take 1 tablet by mouth every 6 (six) hours as needed for pain , Disp: , Rfl: 0 ??? [DISCONTINUED] ibrutinib (Imbruvica) 420 mg tablet, Take 1 tablet (420 mg total) by mouth daily, Disp: 28 tablet, Rfl: 2 ??? [DISCONTINUED] IBUPROFEN ORAL, Take by mouth as needed, Disp: , Rfl: ??? [DISCONTINUED] IMBRUVICA 420 mg tablet, TAKE 1 TABLET (420MG) BY MOUTH ONCE DAILY., Disp: 28 tablet, Rfl: 1 ??? [DISCONTINUED] mupirocin (BACTROBAN) 2 % ointment, Apply topically 2 (two) times a day Use mupirocin ointment with nasal irrigations, Disp: 30 g, Rfl: 2 ??? [DISCONTINUED] ofloxacin (FLOXIN) 0.3 % otic solution, Administer 10 drops into each ear daily,Disp: , Rfl: ??? [DISCONTINUED] polyethylene glycol (GoLYTELY) 236-22.74-6.74 -5.86 gram solution, TAKE DIRECTED., Disp: , Rfl: Performance Status: 1 Objective Vitals: BP: 128/75 Temp: 36.9 ??C (98.4 ??F) Temp src: Oral Pulse: 89 Resp: 18 SpO2: 97 % Weight: 114.2 kg (251 lb 12.8 oz) Physical exam: In no acute distress HEENT:schlera white Lungs:CTA tawny Heart:RRR Abdomen:soft, non-tender Extremities:no edema Skin:no rash Neuro:no focal deficits Nodes: previously palpable sub-mental LAD is now resolved. Lab/Radiology/Diagnostic Review: CBC: Lab Results Component Value Date/Time WBC 21.2 (H) 06/25/2019 10:09 AM WBC 13.7 (H) 04/10/2019 03:03 PM HGB 13.4 (L) 06/25/2019 10:09 AM HGB 14.2 04/10/2019 03:03 PM HCT 40.0 (L) 06/25/2019 10:09 AM HCT 41.2 04/10/2019 03:03 PM LABPLAT 215 06/25/2019 10:09 AM LABPLAT 158 04/10/2019 03:03 PM NEUTROABS 4.8 06/15/2019 02:53 AM NEUTROABS 4,590 04/10/2019 03:03 PM CMP: Lab Results Component Value Date/Time SODIUM 140 06/25/2019 10:09 AM POTASSIUM 4.8 06/25/2019 10:09 AM CO2 30 06/25/2019 10:09 AM BUNSER 24 06/25/2019 10:09 AM GLUCOSE 83 06/25/2019 10:09 AM CREATININE 0.84 06/25/2019 10:09 AM CALCIUM 9.3 06/25/2019 10:09 AM CHLORIDE 101 06/25/2019 10:09 AM ALBUMIN 4.3 06/25/2019 10:09 AM AST 15 06/25/2019 10:09 AM ALT 18 06/25/2019 10:09 AM ALKPHOS 85 06/25/2019 10:09 AM BILITOT 0.4 06/25/2019 10:09 AM PROT 6.7 06/25/2019 10:09 AM ANIONGAP 9 06/25/2019 10:09 AM LDH: Lab Results Component Value Date/Time LDH 186 06/25/2019 10:09 AM Radiology EXAMINATION: CT of the head and paranasal sinuses without contrast ?? HISTORY: 68-year-old man with history of lymphoma with worsening sinus pressure and drainage. ?? TECHNIQUE: Noncontrast CT of the brain was performed with images acquired from skull base to vertex. CT of the paranasal sinuses was performed using sinus protocol without contrast. ?? Contrast Information: none ?? COMPARISON: None available. ?? FINDINGS: ?? Head CT: ?? Topogram demonstrates no lytic lesions or fractures. There is no acute intracranial hemorrhage. Ventricles are of normal size and morphology. No mass effect or midline shift is present. The gonzalez-white matter differentiation is normal. The visualized portions of the orbits are normal. There are nonspecific bilateral middle ear cavity opacities and mastoid air cell opacities. There is no associated bony destruction and no visualized obstructive lesion in the nasopharynx. No fractures are identified. ?? Sinus CT: ?? On the left side there is near complete opacification of the left frontal sinus, complete opacification of the left maxillary sinus and left anterior ethmoid air cells, and mild mucosal thickening of the left sphenoid sinus. Correspondingly the left ostiomeatal unit is occluded. ?? On the right side there is a large right maxillary mucous retention cyst and minimal mucosal thickening of the right sphenoid and frontal sinuses. The right ethmoid air cells are normal. The right ostiomeatal unit is open. ?? The nasal septum is at midline. There are no areas of osseous destruction or fat stranding to suggest aggressive infection. ?? Incidental noted are bilateral neck lymphadenopathy ?? IMPRESSION: ?? 1. Left ostiomeatal unit occlusion with corresponding severe sinus disease involving the left frontal sinus, maxillary sinus, and anterior ethmoid air cells. ?? 2. Large right maxillary mucous retention cyst. The right ostiomeatal unit is open. ?? 3. Nonspecific bilateral middle ear cavity opacities and mastoid air cell opacities. There is no associated bony destruction and no visualized obstructive lesion in the nasopharynx. ?? 4. Cervical lymphadenopathy ?? Dictated by: Mary Zacarias M.D. ?? The radiology attending physician has personally reviewed this study, and had reviewed and/or edited this written report and agrees with it. ?? Electronically signed by: Elyse Bernardo M.D. I Assessment and Plan: Mr. Abdullahi is a very pleasant 67-year-old gentleman with SLL/CLL who was initially treated [...] response. 1.?Small lymphocytic lymphoma (SLL/CLL), recurrent.?He has side effects from the ibrutinib,including easy bruising and nail changes, and has restarted as an inpatient as requested. We'll seem him back in 3-4 weeks and plan to administer IVIG and ensure he has recovered. We'll see him monthly for 1-2 visits. ?? 2.?Recurrent sinus infections. We will continue IVIG for 6 months, and will continue to followup with ENT for re-assessment prior to any surgical intervention. He has improved since being in thespital. ?? 3.?Thyroid nodule.?We will continue to follow this expectantly. ?? As always, the patient knows to contact our office with any questions or concerns in the interim. documented in this encounter Nursing Notes * Nohemi Burnett RN - 06/25/2019 10:45 AM CDT SLL currently on imbruvica. Here for TCV after sinus surgery. He is feeling much better. Med list updated. He will ROV in 3 weeks to continue monthly IVIG documented in this encounter Miscellaneous Notes * Addendum Note - Nohemi Burnett RN - 06/25/2019 10:45 AM CDTAddended by: NOHEMI BURNETT on: 06/25/2019 03:12 PM Modules accepted: Level of Service documented in this encounter Plan of Treatment Not on file documented as of this encounter Results * Lactate dehydrogenase (LD) (07/16/2019 8:22 AM CDT) Lactate dehydrogenase (LDH) 173 100 - 250 Units/L [facility] Comment:Testing performed by : [facility], [address] [place] [id number] Blood specimen (specimen) 07/16/2019 8:22 AM CDT 07/16/2019 8:23 AM CDT Burt Dos Santos MD PhD LAB BLOOD ORDERABLES Final Result Performing Organization Address City/State/[facility] Co de Phone Number [facility] [place] [address] documented in this encounter Visit Diagnoses Diagnosis CLL (chronic lymphocytic leukemia) (HCC)- Primary Chronic lymphoid leukemia, without mention of having achieved remission Constipation, unspecified constipation type Zinc deficiency Mineral deficiency, not elsewhere classified B12 deficiency Vitamin D deficiency Magnesium deficiency Disorders of magnesium metabolism Insomnia, unspecified type documented in this encounter Discontinued Medications Medication Sig Discontinue Reason Start Date End Da te butalbital-acetaminophe n-caffeine (FIORICET) 50-300-40 mg per capsule Take 1 capsule by mouth every 6 (six) hours as needed for headaches Therapy completed 06/06/2019 06/25/2019 cetirizine (ZyrTEC) 10 mg tablet Take 10 mg by mouth daily Therapy completed 06/25/2019 documented as of this encounter Orders Appointment Requests Count Last Ordered Date Fi rst Ordered Date ONCBCN CLINIC APPOINTMENT REQUEST 1 020 documented in this encounter Additional Health Concerns Infection Onset Date Last Indicated Resolved Time C. difficile Comment:Backloaded December 21, 2010 09/21/2010 09/21/2010 documented as of this encounter Care Teams Ecosystem Ecology Professor Relationship Specialty Start Date End Date Lenin Ventura MD [address] [address] PCP - General 07/06/16 Lenin Ventura MD [address] [address] 07/06/16 Burt Dos Santos MD PhD [address] [address] Medical Oncologist/Handbag Framer Medical Oncology 06/16/19 documented as of this encounter
--- OUTSIDE RECORDS SUMMARY | 2024-02-22 08:32 | XMS_ITS | Encounter Summary ---
Author Organization [facility] Address [address] [facility] [address] [place] [address] Phone Care Team Providers Care Clinical Massage Therapist Name Role Phone Lenin Ventura MD Primary Care Provider [phone] Lenin Ventura MD Unavailable [phone] Burt Dos Santos MD PhD Unavailable [phone] Reason for Visit * Reason Comments Audiometric Evaluation * Audiology (Routine) - Closed Specialty Diagnoses / Procedures Referred By Contac t Referred To Contact Diagnoses Sensorineural hearing loss (SNHL) of both ears Procedures Audiogram Cass Olivia MD [address] [place] [address] Phone: tel: fax: [facility] (All Locations) Referral ID Status Reason Start Date Expiration Date Visits Re quested Visits Authorized [id number] Closed 07/09/2019 01/17/2021 3 3 Encounter Details Date Type Department Care Team (Latest Contact Info) Description 07/10/2019 3:15 PM CDT Procedure visit [facility] Otolaryngology [address] [facility] [address] [place] [address] Nicci Hernandez Au.D. 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 - 07/10/2019 3:15 PM CDT Procedures AuD. Óscar, [facility] PATIENT: Jeff Abdullahi : 1950 TYPE OF SERVICE: Audiologic Evaluation DATE OF SERVICE: @DATE@ Referral Source: Elda Tracey* PATIENT REPORTS: Initial hearing examination History of sinus infection which resulted in ear fluid Bilateral PE tubes - hearing still not back to normal Bilateral tinnitus TESTS PERFORMED: See: comprehensive audiometry, tympanometry ASSESSMENT: Otoscopy: PE tube visualized right ear; no tube visualized left ear Pure tone audiometry was performed and revealed: R ear - Mild rising to WNL dropping to moderately severe mixed hearing loss L ear - Slight dropping to severe mixed hearing loss Speech recognition thresholds test was performed and revealed: Right: slight loss in the ability to receive speech Left: slight loss in the ability to receive speech Word recognition testing was performed at [facility] using recorded version of NU-6 lists of a female speaker: Right: normal in the ability to recognize speech. Left: normal in the ability to recognize speech. Tympanometry was performed and revealed: Right: Ear Canal Volume: larger than normal Static Compliance: normal Middle ear pressure: negative Left: Ear Canal Volume: larger than normal Static Compliance: hypocompliant Middle ear pressure: negative The results were reviewed with the patient and any questions were answered. PLAN/RECOMMENDATIONS: As per Elda Tracey* As per Dr. Olivia Retest post medical management/PRN Hearing aid evaluation, pending medical clearance Hearing assistive technology Hearing protection in noise documented in this encounter Plan of Treatment Not on file documented as of this encounter Procedures Procedure Name Priority Date/Time Associated Diagnosis Comments AUDBASE RESULTS 07/10/2019 documented in this encounter Results * AUDBASE RESULTS (07/10/2019) Provider Scanning AUDIOLOGY SERVICES ORDERABLES Final Result documented in this encounter Visit Diagnoses Diagnosis Mixed hearing loss, bilateral- Primary Sensorineural hearing loss (SNHL) of both ears documented in this encounter Orders Audiology Count Last Ordered Date First Orde red Date AUDIOGRAM 1 07/10/2019 documented in this encounter Additional Health Concerns Infection Onset Date Last Indicated Resolved Time C. difficile Comment:Backloaded December 21, 2010 09/21/2010 09/21/2010 documented as of this encounter Care Teams Clinical Massage Therapist Relationship Specialty Start Date End Date Lenin Ventura MD [address] [address] PCP - General 07/06/16 Lenin Ventura MD [address] [address] 07/06/16 Burt Dos Santos MD PhD [address] [address] Medical Oncologist/Production Planning Supervisor Medical Oncology 06/16/19 documented as of this encounter
--- OUTSIDE RECORDS SUMMARY | 2024-02-22 08:32 | XMS_ITS | Encounter Summary ---
Author Organization [facility] Address [address] [place] [address] Phone Care Team Providers Care Farm Equipment Mechanic Name Role Phone Lenin Ventura MD Primary Care Provider [phone] Lenin Ventura MD Unavailable [phone] Burt Dos Santos MD PhD Unavailable [phone] Reason for Visit * Consultation (Routine) - Canceled Specialty Diagnoses / Procedures Referred By Trent delgado Referred To Contact Otolaryngology Diagnoses Acute recurrent pansinusitis Lenin Ventura MD [address] [address] Phone: tel: fax: [facility] (All Locations) Referral ID Status Reason Start Date Expiration Date Visits Requested Visits Authorized [id number] Canceled Specialty Services Required 07/22/2019 01/30/2021 3 3 Encounter Details Date Type Department Care Team (Late st Contact Info) Description 09/14/2019 10:00 AM CDT [facility] ENT [address] [facility] 11th [place] [address] [place] [id number] Cass Olivia MD [address] [place] [address] Mixed hearing loss, bilateral (Primary Dx) Social History Tobacco Use Types Packs/Day Years Used Date Smoking Tobacco: Former Smokeless Tobacco: Never Alcohol Use Standard Drinks/Week Comments Not Currently 0 (1 standard drink = 0.6 oz pur e alcohol) Sex and Gender Information Value Date Recorded Sex Assigned at Not on file 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 Ventura. Chief Complaint: follow-up HPI: Patient returns for follow-up evaluation with [...] Shaquille [facility] at [facility] ??? LAPAROSCOPIC [facility] ??? LYMPH NODE BIOPSY 2006 Past [...] file Gets together: Not on file Attends rastafari service: Not on file Active member of [...] (ZOVIRAX) 200 mg capsule Take 2 capsules by mouth twice daily (Patient taking differently: Take 200 mg by mouth 2 (two) times a day ) 180 capsule 3 ??? ALPRAZolam (XANAX) 0.25 mg tablet Take 0.5-1 tablets by mouth 3 (three) times a day as needed for anxiety ??? cetirizine (ZyrTEC) 10 mg chewable tablet Take 10 mg by mouth daily ??? cholecalciferol (cholecalciferol) 1000 unit tablet Take 1 tablet (1,000 Units total) by mouth daily 30 tablet 11 ??? cyanocobalamin (Vitamin B-12) 1,000 mcg tablet Take 1 tablet (1,000 mcg total) by mouth daily 30 tablet 11 ??? escitalopram (LEXAPRO) 10 mg tablet Take 1 tablet by mouth daily ??? fluticasone (FLONASE) 50 mcg/actuation nasal spray Administer 2 sprays into each nostril daily ??? Imbruvica 420 mg tablet TAKE ONE TABLET BY MOUTH ONCE DAILY [...] Right External auditory canal: normal Tympanic Membrane: T-Tube in place, patent Middle ear: normal Left: External auditory canal: normal Tympanic Membrane: T-Tube in place, wax occlusion removed Middle ear: normal EYES: EOM Intact, sclera [...] intact and symmetric. Normal affect. GAIT: Normal. CT Imaging Reviewed: Bilateral mastoid effusions with associated left side hernandez-sinusitis. ASSESSMENT/PLAN 68 year old male returns to clinic for evaluation of bilateral mastoiditis and left side hernandez-sinusitis in the setting of CLL treated conservatively with bilateral t-tubes and nasal irrigations with Mupirocin. He has had resolution of his pansinusitis. From an ear perspective he has done well but I'm hesitant to remove the t-tube until we are more confident his symptoms would not recur. I will seehim back in 3 months for re-evaluation and if he has no further otorrhea will consider removal of left t-tube first. Cass Olivia M.D. Otology and Neurotology Department of Otolaryngology [facility] [email or web address] Office: Clinic: This note was created in part with the assistance of [employer] voice recognition software. Learning And Development Specialist variances may occur. documented in this encounter Plan of Treatment Not on file documented as of this encounter Visit Diagnoses Diagnosis Mixed hearing loss, bilateral- Primary documented in this encounter Discontinued Medications Medication Sig Discontinue Reason Start Date End Da te mupirocin (BACTROBAN) 2 % nasal ointment Mix Neilmed packet with warm sterile water and dissolve 1/2 tube of mupirocin ointment into solution. 07/10/2019 09/14/2019 oxyCODONE-acetaminophen (PERCOCET) 7.5-325 mg per tablet Take 1 tablet by mouth every 6 (six) hours as needed for pain 06/06/2019 09/14/2019 documented as of this encounter Additional Health Concerns Infection Onset Date Last Indicated Resolved Time C. difficile Comment:Backloaded December 21, 2010 09/21/2010 09/21/2010 documented as of this encounter Care Teams Farm Equipment Mechanic Relationship Specialty Start Date End Date Lenin Ventura MD [address] [address] PCP - General 07/06/16 Lenin Ventura MD [address] [address] 07/06/16 Burt Dos Santos MD PhD [address] [place] [address] Medical Oncologist/Lumber Hacker Medical Oncology 06/16/19 documented as of this encounter
--- OUTSIDE RECORDS SUMMARY | 2024-02-22 08:32 | XMS_ITS | Encounter Summary ---
Author Organization [facility] Address [address] [place] [address] Phone Care Team Providers Care Movie Extra Name Role Phone Lenin Ventura MD Primary Care Provider [phone] Lenin Ventura MD Unavailable [phone] Burt Dos Santos MD PhD Unavailable [phone] Encounter Details Date Type Department Care Team (Latest Contact Info) Description 09/17/2019 9:30 AM CDT Clinical Support [facility] 7th [place] [address] [place] [address] CLL (chronic lymphocytic leukemia) (CMS/HCC) Social History Tobacco Use Types Packs/Day Years Used Date Smoking Tobacco: Former Smokeless Tobacco: Never Alcohol Use Standard Drinks/Week Comments Not Currently 0 (1 standard drink = 0.6 oz pur e alcohol) Sex and Gender Information Value Date Recorded Sex Assigned at Not on file 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 Gender Identity Not on file Sexual Orientation Not on file documented as of this encounter Plan of Treatment Not on file documented as of this encounter Procedures Procedure Name Priority Date/Time Associated Diagnosis Comments MORPHOLOGIC SCREEN STAT 09/17/2019 8: 27 AM CDT CLL (chronic lymphocytic leukemia) (CMS/HCC) DIFFERENTIAL AUTO STAT 09/17/2019 8:2 7 AM CDT CLL (chronic lymphocytic leukemia) (CMS/HCC) CBC WITH AUTO DIFFERENTIAL STAT 09/17/2019 8:27 AM CDT CLL (chronic lymphocytic leukemia) (CMS/HCC) LACTATE DEHYDROGENASE STAT 09/17/2019 8:27 AM CDT CLL (chronic lymphocytic leukemia) (CMS/HCC) IGG STAT 09/17/2019 8:27 AM CDT CLL (chronic lymphocytic leukemia) (CMS/HCC) COMPREHENSIVE METABOLIC PANEL STAT 09/17/2019 8:27 AM CDT CLL (chronic lymphocytic leukemia) (CMS/HCC) documented in this encounter Results * Morphologic screen (09/17/2019 8:27 AM CDT) Pathologist [facility] Morphologic Screen Original results obtained required verification by peripheral smear. [facility] Blood specimen (specimen) 09/17/2019 8:27 AM CDT 09/17/2019 8:28 AM CDT Magali Stapleton CONVERTER OPERATOR LAB BLOOD ORDERABLES Final Res ult [facility] Department [place] [address] * (ABNORMAL) Differential, auto (09/17/2019 8:27 AM CDT) [facility] Neutrophil abs 4.3 1.8 - 6.6 K/cumm [facility] Comment:Testing performed by : [facility], [address] [place] [phone] Lymphocyte abs 10.5(H) 1.2 - 3.3 K/cumm [facility] Comment:Testing performed by : [facility], [address] [place] [phone] Monocyte abs 1.2 0.2 - 1.2 K/cumm [facility] Comment:Testing performed by : [facility], [address] [place] [phone] Eosinophil abs 0.1 0.0 - 0.5 K/cumm [facility] Comment:Testing performed by : [facility], [address] [place] [phone] Basophil abs 0.1 0.0 - 0.2 K/cumm [facility] Comment:Testing performed by : [address] [phone] Neutrophil pct 26.6 % [facility] Comment: Interpretive Data Percent cell count reference ranges are not reported, since discordance with absolute values may lead to misinterpretation of CBC data. Current Interpretive Data was last revised on 2017. Testing performed by: [facility], [address] [place] [phone] Lymphocyte pct 64.8 % [facility] Comment: Interpretive Data Percent cell count reference ranges are not reported, since discordance with absolute values may lead to misinterpretation of CBC data. Current Interpretive Data was last revised on 2017. Testing performed by: [address] [phone] Monocyte pct 7.3 % [facility] Comment:Testing performed by : [facility], [address] [place] [phone] Eosinophil pct 0.8 % [facility] Comment:Testing performed by : [address] [phone] Basophil pct 0.5 % [facility] Comment:Testing performed by : [address] [phone] Blood specimen (specimen) 09/17/2019 8:27 AM CDT 09/17/2019 8:28 AM CDT us Magali Stapleton CONVERTER OPERATOR LAB BLOOD ORDERABLES Final Res ult [facility] Department [place] [address] * (ABNORMAL) CBC with auto differential (09/17/2019 8:27 AM CDT) WBC 16.2(H) 3.8 - 9.8 K/cumm [facility] Comment:Testing performed by : [facility], [address] [place], [place] [phone] Hgb 13.1(L) 13.8 - 17.2 g/dL [facility] Comment:Testing performed by : [facility], [address] [place] [address] Hct 38.9(L) 40.7 - 50.3 % [facility] Comment:Testing performed by : [facility], [address] [place] [address] Plt 151 140 - 440 K/cumm [facility] Comment:Testing performed by : [facility], [address] [place] [address] MPV 10.7(H) 6.8 - 10.4 fL [facility] Comment:Testing performed by : [place] [address] RBC 3.95(L) 4.50 - 5.70 M/cumm [facility] Comment:Testing performed by : [place] [address] MCV 98.4(H) 80.0 - 97.6 fL [facility] Comment:Testing performed by : [place] [address] MCH 33.3 26.7 - 33.7 pg [facility] Comment:Testing performed by : [place] [address] MCHC 33.8 32.7 - 35.5 g/dL [facility] Comment:Testing performed by : [facility], [address] [place] [address] RDW CV 16.2(H) 11.8 - 14.6 % [facility] Comment:Testing performed by : [place] [address] NRBC abs 0.02(H) 0.00 - 0.01 K/cumm [facility] Comment:Testing performed by : [place] [phone] Blood specimen (specimen) 09/17/2019 8:27 AM CDT 09/17/2019 8:28 AM CDT us Magali Phelan Stratham CONVERTER OPERATOR LAB BLOOD ORDERABLES Final Res ult [facility] Department [place] [address] * (ABNORMAL) Comprehensive metabolic panel (09/17/2019 8:27 AM CDT) Sodium 135 135 - 145 mmol/L [facility] Comment:Testing performed by : [facility], [address] [place] [phone] Potassium, pl 5.0(H) 3.3 - 4.9 mmol/L [facility] Comment:Testing performed by : [facility], [address] [place] [phone] Chloride 101 97 - 110 mmol/L [facility] Comment:Testing performed by : [address] [phone] CO2 27 22 - 32 mmol/L [facility] Comment:Testing performed by : [facility], [address] [place] [phone] Anion gap 7 2 - 15 mmol/L [facility] Comment:Testing performed by : [address] [phone] BUN 24 8 - 25 mg/dL [facility] Comment:Testing performed by : [address] [phone] Creatinine 0.77(L) 0.80 - 1.30 mg/dL [facility] Comment:Testing performed by : [facility], [address] [place] [phone] Glucose 105 70 - 199 mg/dL [facility] Comment: [...] was last revised 2017. Testing performed by: [facility], [address] [place] [phone] Calcium 9.4 8.5 - 10.3 mg/dL [facility] Comment:Testing performed by : [facility], [address] [place] [phone] Bilirubin, total 0.6 0.1 - 1.2 mg/dL [facility] Comment:Testing performed by : [facility], [address] [place] [phone] Protein, pl 6.4(L) 6.5 - 8.5 g/dL [facility] Comment:Testing performed by : [facility], [address] [place] [phone] Albumin 4.5 3.5 - 5.0 g/dL [facility] Comment:Testing performed by : [facility], [address] [place] [phone] Alk phos 67 40 - 130 Units/L [facility] Comment:Testing performed by : [facility], [address] [place] [phone] ALT 19 7 - 55 Units/L [facility] Comment:Testing performed by : [facility], [address] [place] [phone] AST 20 10 - 50 Units/L [facility] Comment:Testing performed by : [address] [phone] Blood specimen (specimen) 09/17/2019 8:27 AM CDT 09/17/2019 8:28 AM CDT us Magali Stapleton CONVERTER OPERATOR LAB BLOOD ORDERABLES Final Res ult [facility] Department [place] [address] * Lactate dehydrogenase (LD) (09/17/2019 8:27 AM CDT) Lactate dehydrogenase (LDH) 241 100 - 250 Units/L [facility] Comment:Testing performed by : [facility], [address] [place] [phone] Blood specimen (specimen) 09/17/2019 8:27 AM CDT 09/17/2019 8:28 AM CDT Magali SJulisa Stratham CONVERTER OPERATOR LAB BLOOD ORDERABLES Final Res ult Performing Organization Address [facility] Co de Phone Number [facility] Department [place] [address] * (ABNORMAL) IgG (09/17/2019 8:27 AM CDT) Immunoglobulin G 658.0(L) 700.0 - 1,600.0 mg/dL [facility] Blood specimen (specimen) 09/17/2019 8:27 AM CDT 09/17/2019 8:38 AM CDT Magali SJulisa Stratham CONVERTER OPERATOR LAB BLOOD ORDERABLES Final Res ult Performing Organization Address [facility] de Phone Number [facility] [place] [address] documented in this encounter Visit Diagnoses Diagnosis CLL (chronic lymphocytic leukemia) (HCC) Chronic lymphoid leukemia, without mention of having achieved remission documented in this encounter Orders Appointment Requests Count Last Ordered Date Fi rst Ordered Date ONCBCN LAB APPOINTMENT 1 09/17/2019 documented in this encounter Additional Health Concerns Infection Onset Date Last Indicated Resolved Time C. difficile Comment:Backloaded December 21, 2010 09/21/2010 09/21/2010 documented as of this encounter Care Teams Movie Extra Relationship Specialty Start Date End Date Lenin Ventura MD [address] [address] PCP - General 07/06/16 Lenin Ventura MD [address] [address] 07/06/16 Burt Dos Santos MD PhD [address] [facility] [address] [address] Medical Oncologist/Icebox Worker Medical Oncology 06/16/19 documented as of this encounter
--- OUTSIDE RECORDS SUMMARY | 2024-02-22 08:32 | XMS_ITS | Encounter Summary ---
Author Organization [facility] Address [address] [place] [address] Phone Care Team Providers Care Off Premise Service Representative Name Role Phone Lenin Ventura MD Primary Care Provider [phone] Lenin Ventura MD Unavailable [phone] Burt Dos Santos MD PhD Unavailable [phone] Encounter Details Date Type Department Care Team (Late st Contact Info) Description 08/20/2019 9:45 AM CDT Lab [facility] Oncology [address] 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 Gender Identity Not on file Sexual Orientation Not on file documented as of this encounter Plan of Treatment Not on file documented as of this encounter Procedures Procedure Name Priority Date/Time Associated Diagnosis Comments MORPHOLOGIC SCREEN STAT 08/20/2019 9: 32 AM CDT CLL (chronic lymphocytic leukemia) (CMS/HCC) DIFFERENTIAL AUTO STAT 08/20/2019 9:3 2 AM CDT CLL (chronic lymphocytic leukemia) (CMS/HCC) CBC WITH AUTO DIFFERENTIAL STAT 08/20/2019 9:32 AM CDT CLL (chronic lymphocytic leukemia) (CMS/HCC) LACTATE DEHYDROGENASE STAT 08/20/2019 9:32 AM CDT CLL (chronic lymphocytic leukemia) (CMS/HCC) IGG STAT 08/20/2019 9:32 AM CDT CLL (chronic lymphocytic leukemia) (CMS/HCC) COMPREHENSIVE METABOLIC PANEL STAT 08/20/2019 9:32 AM CDT CLL (chronic lymphocytic leukemia) (CMS/HCC) documented in this encounter Results * Morphologic screen (08/20/2019 9:32 AM CDT) Pathologist [facility] Morphologic Screen Original results obtained required verification by peripheral smear. [facility] Blood specimen (specimen) 08/20/2019 9:32 AM CDT 08/20/2019 9:35 AM CDT Burt Dos Santos MD PhD LAB BLOOD ORDERABLES Final Result [facility] [place] [address] * (ABNORMAL) Differential, auto (08/20/2019 9:32 AM CDT) [facility] Neutrophil abs 3.7 1.8 - 6.6 K/cumm [facility] Comment:Testing performed by : [facility], [address] [place] [phone] Lymphocyte abs 12.4(H) 1.2 - 3.3 K/cumm [facility] Comment:Testing performed by : [facility], [address] [place] [phone] Monocyte abs 1.0 0.2 - 1.2 K/cumm [facility] Comment:Testing performed by : [facility], [address] [place] [phone] Eosinophil abs 0.1 0.0 - 0.5 K/cumm [facility] Comment:Testing performed by : [facility], [address] [place] [phone] Basophil abs 0.1 0.0 - 0.2 K/cumm [facility] Comment:Testing performed by : [facility], [address] [place] [phone] Neutrophil pct 21.4 % [facility] Comment: Interpretive Data Percent cell count reference ranges are not reported, since discordance with absolute values may lead to misinterpretation of CBC data. Current Interpretive Data was last revised on 2017. Testing performed by: [facility], [address] [place] [phone] Lymphocyte pct 71.6 % [facility] Comment: Interpretive Data Percent cell count reference ranges are not reported, since discordance with absolute values may lead to misinterpretation of CBC data. Current Interpretive Data was last revised on 2017. Testing performed by: [facility], [address] [place] [phone] Monocyte pct 6.0 % [facility] Comment:Testing performed by : [facility], [address] [place] [phone] Eosinophil pct 0.5 % [facility] Comment:Testing performed by : [facility], [address] [place] [phone] Basophil pct 0.5 % [facility] Comment:Testing performed by : [facility], [address] [place] [phone] Blood specimen (specimen) 08/20/2019 9:32 AM CDT 08/20/2019 9:35 AM CDT Burt Dos Santos MD PhD LAB BLOOD ORDERABLES Final Result [facility] [place] [address] * (ABNORMAL) IgG (08/20/2019 9:32 AM CDT) Immunoglobulin G 632.0(L) 700.0 - 1,600.0 mg/dL [facility] Blood specimen (specimen) 08/20/2019 9:32 AM CDT 08/20/2019 9:51 AM CDT Narrative [facility] - 08/20/2019 10:22 AM CDT Prior to IVIG Burt Dos Santos MD PhD LAB BLOOD ORDERABLES Final Result [facility] [place] [address] * (ABNORMAL) CBC with auto differential (08/20/2019 9:32 AM CDT) WBC 17.3(H) 3.8 - 9.8 K/cumm [facility] Comment:Testing performed by : [facility], [address] [place], [place] [phone] Hgb 13.9 13.8 - 17.2 g/dL [facility] Comment:Testing performed by : [address] [phone] Hct 41.0 40.7 - 50.3 % [facility] Comment:Testing performed by : [facility], [address] [place] [phone] Plt 158 140 - 440 K/cumm [facility] Comment:Testing performed by : [address] [address] MPV 11.1(H) 6.8 - 10.4 fL [facility] Comment:Testing performed by : [address] [phone] RBC 4.18(L) 4.50 - 5.70 M/cumm [facility] Comment:Testing performed by : [address] [address] MCV 98.0(H) 80.0 - 97.6 fL [facility] Comment:Testing performed by : [address] [phone] MCH 33.3 26.7 - 33.7 pg [facility] Comment:Testing performed by : [address] [address] MCHC 34.0 32.7 - 35.5 g/dL [facility] Comment:Testing performed by : [facility], [address] [place] [phone] RDW CV 17.5(H) 11.8 - 14.6 % [facility] Comment:Testing performed by : [facility], [address] [place] [phone] NRBC abs 0.01 0.00 - 0.01 K/cumm [facility] Comment:Testing performed by : [facility], [address] [place] [phone] Blood specimen (specimen) 08/20/2019 9:32 AM CDT 08/20/2019 9:35 AM CDT Burt Dos Santos MD PhD LAB BLOOD ORDERABLES Final Result [facility] [place] [address] * (ABNORMAL) Comprehensive metabolic panel (08/20/2019 9:32 AM CDT) Sodium 138 135 - 145 mmol/L [facility] Comment:Testing performed by : [facility], [address] [place] [phone] Potassium, pl 4.4 3.3 - 4.9 mmol/L [facility] Comment:Testing performed by : [facility], [address] [place] [phone] Chloride 99 97 - 110 mmol/L [facility] Comment:Testing performed by : [facility], [address] [place] [phone] CO2 29 22 - 32 mmol/L [facility] Comment:Testing performed by : [address] [phone] Anion gap 10 2 - 15 mmol/L [facility] Comment:Testing performed by : [facility], [address] [place] [phone] BUN 20 8 - 25 mg/dL [facility] Comment:Testing performed by : [facility] [address] [address] Creatinine 0.78(L) 0.80 - 1.30 mg/dL [facility] Comment:Testing performed by : [facility], [address] [place] [phone] Glucose 102 70 - 199 mg/dL CERNER [...] was last revised 2017. Testing performed by: [address] [address] Calcium 9.6 8.5 - 10.3 mg/dL [facility] Comment:Testing performed by : [address] [address] Bilirubin, total 0.8 0.1 - 1.2 mg/dL [facility] Comment:Testing performed by : [address] [address] Protein, pl 6.8 6.5 - 8.5 g/dL [facility] Comment:Testing performed by : [address] [address] Albumin 4.8 3.5 - 5.0 g/dL [facility] Comment:Testing performed by : [address] [address] Alk phos 64 40 - 130 Units/L [facility] Comment:Testing performed by : [address] [address] ALT 17 7 - 55 Units/L [facility] Comment:Testing performed by : [address] [address] AST 15 10 - 50 Units/L [facility] Comment:Testing performed by : [facility], [address] [place] [phone] Blood specimen (specimen) 08/20/2019 9:32 AM CDT 08/20/2019 9:35 AM CDT Burt Dos Santos MD PhD LAB BLOOD ORDERABLES Final Result Performing Organization Address [facility] Co de Phone Number [facility] [place] [address] * Lactate dehydrogenase (LD) (08/20/2019 9:32 AM CDT) Lactate dehydrogenase (LDH) 180 100 - 250 Units/L [facility] Comment:Testing performed by : [facility], [address] [place] [phone] Blood specimen (specimen) 08/20/2019 9:32 AM CDT 08/20/2019 9:35 AM CDT Burt Dos Santos MD PhD LAB BLOOD ORDERABLES Final Result Performing Organization Address [facility] Co de Phone Number [facility] [place] [address] documented in this encounter Visit Diagnoses Diagnosis CLL (chronic lymphocytic leukemia) (HCC) Chronic lymphoid leukemia, without mention of having achieved remission documented in this encounter Orders Appointment Requests Count Last Ordered Date Fi rst Ordered Date ONCBCN LAB APPOINTMENT 1 08/20/2019 documented in this encounter Additional Health Concerns Infection Onset Date Last Indicated Resolved Time C. difficile Comment:Backloaded December 21, 2010 09/21/2010 09/21/2010 documented as of this encounter Care Teams Off Premise Service Representative Relationship Specialty Start Date End Date Lenin Ventura MD [address] [address] PCP - General 07/06/16 Lenin Ventura MD [address] [address] 07/06/16 Burt Dos Santos MD PhD [address] [address] Medical Oncologist/Silversmith Apprentice Medical Oncology 06/16/19 documented as of this encounter
--- OUTSIDE RECORDS SUMMARY | 2024-02-22 08:32 | XMS_ITS | Encounter Summary ---
Author Organization [facility] Address [address] [place] [address] Phone Care Team Providers Care Rotary Dryer Operator Name Role Phone Lenin Ventura MD Primary Care Provider [phone] Lenin Ventura MD Unavailable [phone] Burt Dos Santos MD PhD Unavailable [phone] Reason for Visit * Episode Based Medications (Routine) - Authorized Specialty Diagnoses / Procedures Referred By Contguillermo t Referred To Contact Diagnoses Hypogammaglobulinemia (HCC) Procedures [place] GAMUNEX-C/GAMMAKED GAMUNEX Burt Dos Santos MD PhD [address] DIV IM BONE MARROW TRANSPLANT[address] [place] [address] Phone: tel: fax: [facility] [place] [address] [facility] 7th [place] [address] Phone: tel: Referral ID Status Reason Start Date Expiration Date V isits Requested Visits Authorized [id number] Authorized 10/19/2019 08/02/2024 1 38 Encounter Details Date Type Department Care Team (Late st Contact Info) Description 07/16/2019 10:30 AM CDT [facility] On[facility] [address] [place] [address] [place] [address] CLL (chronic lymphocytic leukemia) (CMS/HCC) (Primary Dx); Hypogammaglobulinemia (CMS/HCC) Social History Tobacco Use Types Packs/Day Years Used Date Smoking Tobacco: Former Smokeless Tobacco: Never Alcohol Use Standard Drinks/Week Comments Not Currently 0 (1 standard drink = 0.6 oz pur e alcohol) Sex and Gender Information Value Date Recorded Sex Assigned at Not on file 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 Discharged ambulatory with return appointments. documented in this encounter Plan of Treatment [...] mg 650 mg, oral, Once, On Paloma 07/16/19 at 1030, For 1 dose, Please give 30 minutes prior to IVIG.Indications:Hypogamm aglobulinemia (HCC) Given 07/16/2019 10:03 AM CDT 650 mg diphenhydrAMINE (BENADRYL) tab/cap 25 mg 25 mg, oral, Once, On [place]oma 07/16/19 at 1030, For 1 dose, Give 30 minutes prior to IVIG.Indications:Hypogamm aglobulinemia (HCC) Given 07/16/2019 10:03 AM CDT 25 mg immune globulin (GAMUNEX-C,GAMMAKED) 10 % infusion 35 g 35 g, intravenous, Once, On [place]oma 07/16/19 at 1100, For 1 dose, GONZALES Titrations Only, , Gamunex Subsequent: , - Initiate at 0.6 mL/kg/hr. If no reaction, may increase rate by 0.6 mL/kg/hr every 15 minutes, to a max of 4.8 mL/kg/hr , , GamuNEX C SUBSEQUENT Infusion, 15 Minute Titration , , Patient Weight: 86.8 kg , , Initiate Infusion at 0.6 mL/kg/hr. If no reaction, may increase rate by 0.6 mL/kg/hr every 15 minutes, to a max of 4.8 mL/kg/hr , , 1 . 0.6 mL/kg/hr = Infuse 13 mL over 15 minutes (Rate = 52 mL/hr) , 2 . 1.2 mL/kg/hr = Infuse 26 mL over 15 minutes (Rate = 104 mL/hr) , 3 . 1.8 mL/kg/hr = Infuse 39 mL over 15 minutes (Rate = 156 mL/hr) , 4 . 2.4 mL/kg/hr = Infuse 52 mL over 15 minutes (Rate = 208 mL/hr) , 5 . 3.0 mL/kg/hr = Infuse 65 mL over 15 minutes (Rate = 260 mL/hr) , 6 . 3.6 mL/kg/hr = Infuse 78 mL over 15 minutes (Rate = 312 mL/hr) , 7 . 4.2 mL/kg/hr = Infuse 91 mL over 15 minutes (Rate = 365 mL/hr) , 8 . 4.8 mL/kg/hr for remainder (Rate = 417 mL/hr) , , , IVIG is to be dosed on IBW unless the actual body weight is less than ideal. If actual body weight is less than ideal body weight, [facility] pharmacies to adjust doses to use the actual body weight per P&T approved protocol. pharmacies to call prescriber for dose adjustments.Indications:H ypogammaglobulinemia (HCC) Rate/Dose Change 07/16/2019 12:37 PM CDT 365 mL/hr Rate/Dose Change 07/16/2019 12:12 PM CDT 312 mL /hr Rate/Dose Change 07/16/2019 11:53 AM CDT 260 mL /hr documented in this encounter Orders Nursing Count Last Ordered Date First Orde red Date ONCBCN NURSING COMMUNICATION [id number] 2 0 07/16/2019 VITAL SIGNS INTRA-INFUSION 1 07/16/2019 Appointment Requests Count Last Ordered Date Fi rst Ordered Date INFUSION APPT REQUEST 300 MIN 1 07/16/2019 documented in this encounter Additional Health Concerns Infection Onset Date Last Indicated Resolved Time C. difficile Comment:Backloaded December 21, 2010 09/21/2010 09/21/2010 documented as of this encounter Care Teams Rotary Dryer Operator Relationship Specialty Start Date End Date Lenin Ventura MD [address] [address] PCP - General 07/06/16 Lenin Ventura MD [address] [address] 07/06/16 Burt Dos Santos MD PhD [address] [address] Medical Oncologist/Complaint Analyst Medical Oncology 06/16/19 documented as of this encounter
--- OUTSIDE RECORDS SUMMARY | 2024-02-22 08:32 | XMS_ITS | Encounter Summary ---
Author Organization [facility] Address [address] [place] [address] Phone Care Team Providers Care Hot Box Operator Name Role Phone Lenin Ventura MD Primary Care Provider [phone] Lenin Ventura MD Unavailable [phone] Burt Dos Santos MD PhD Unavailable [phone] Encounter Details Date Type Department Care Team (Late st Contact Info) Description 06/23/2019 Orders Only [facility] Otol[facility]ology [address] [facility] [address] [place] [address] Vandana Guerra CMA Social History Tobacco Use Types Packs/Day Years Used Date Smoking Tobacco: Former Smokeless Tobacco: Never Alcohol Use Standard Drinks/Week Comments Not Currently 0 (1 standard drink = 0.6 oz pur e alcohol) Sex and Gender Information Value Date Recorded Sex Assigned at Not on file 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 Gender Identity Not on file Sexual Orientation Not on file documented as of this encounter Ordered Prescriptions Prescription Sig Dispense Quantity Refills Last Filled Start Date End Date mupirocin (BACTROBAN) 2 % ointment Apply 1 inch of ointment to nasal irrigations 3x's daily 30 g 3 06/23/2019 documented in this encounter Plan of Treatment Not on file documented as of this encounter Visit Diagnoses Not on filedocumented in this encounter Discontinued Medications Medication Sig Discontinue Reason Start Date End Da te mupirocin (BACTROBAN) 2 % ointment Apply topically 2 (two) times a day Use mupirocin ointment with nasal irrigations Reorder 06/19/2019 06/23/2019 documented as of this encounter Additional Health Concerns Infection Onset Date Last Indicated Resolved Time C. difficile Comment:Backloaded December 21, 2010 09/21/2010 09/21/2010 documented as of this encounter Care Teams Hot Box Operator Relationship Specialty Start Date End Date Lenin Ventura MD [address] [place] [address] PCP - General 07/06/16 Lenin Ventura MD [address] [place] [address] 07/06/16 Burt Dos Santos MD PhD [address] [place] [address] Medical Oncologist/Vp Production Medical Oncology 06/16/19 documented as of this encounter
--- OUTSIDE RECORDS SUMMARY | 2024-02-22 08:32 | XMS_ITS | Encounter Summary ---
Author Organization [facility] Healthcare Address [address] [place] [address] Care Team Providers Care Window Glazier Name Role Phone Lenin Ventura MD Primary Care Provider [phone] Lenin Ventura MD Unavailable [phone] Burt Dos Santos MD PhD Unavailable [phone] Reason for Referral * Diagnostic Imaging (Routine) - Closed Specialty Diagnoses / Procedures Referred By Trent delgado Referred To Contact Radiology Diagnoses Acute recurrent pansinusitis Procedures CT Sinus Stealth WO Contrast Hans Amaya MD [address] [place] [address] Phone: tel: fax: [place] [address] [place] [address] Referral ID Status Reason Start Date Expiration Date Visits Re quested Visits Authorized [id number] Closed 07/22/2019 10/20/2019 1 1 Reason for Visit * Diagnostic Imaging (Routine) - Closed Specialty Diagnoses / Procedures Referred By Trent delgado Referred To Contact Radiology Diagnoses Acute recurrent pansinusitis Procedures CT Sinus Stealth WO Contrast Hans Amaya MD [address] [place] [address] Phone: tel: fax: [place] [address] [place] [phone] Referral ID Status Reason Start Date Expiration Date Visits Re quested Visits Authorized [id number] Closed 07/22/2019 10/20/2019 1 1 Encounter Details Date Type Department Care Team (Latest Contact Info) Description 07/22/2019 12:20 PM CDT - 07/22/2019 11:59 PM CDT Hospital Encounter [facility] [id number] [address] Hans Amaya MD [address] [place] [address] Acute recurrent pansinusitis Discharge Disposition: Discharge to home or self care Social History Tobacco Use Types Packs/Day Years Used Date Smoking Tobacco: Former Smokeless Tobacco: Never Alcohol Use Standard Drinks/Week Comments Not Currently 0 (1 standard drink = 0.6 oz pur e alcohol) Sex and Gender Information Value Date Recorded Sex Assigned at Not on file 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 Gender Identity Not on file Sexual [...] each 06/25/2019 polyethylene glycol (MIRALAX) 17 gram packetIndications :constipation Take 1 packet (17 g total) by mouth daily 30 packet 06/25/2019 0 acyclovir (ZOVIRAX) 200 mg capsuleIndication s:CLL (chronic lymphocytic leukemia) ([facility]) Take 2 capsules by mouth twice daily 180 capsule 3 05/01/2019 0 cetirizine (ZyrTEC) 10 mg chewable tabletIndications :CLL (chronic lymphocytic leukemia) ([facility]) Take 10 mg by mouth daily 0 escitalopram (LEXAPRO) 10 mg tablet Take 1 tablet by mouth daily 05/18/2019 0 Imbruvica 420 mg tabletIndications :CLL (chronic lymphocytic leukemia) ([facility]) 07/09/2019 0 mupirocin (BACTROBAN) 2 % nasal ointment Mix Neilmed packet with warm sterile water and dissolve 1/2 tube of mupirocin ointment into solution. 14 g 07/10/2019 0 oxyCODONE-acetami nophen (PERCOCET) 7.5-325 mg per tablet Take 1 tablet by mouth every 6 (six) hours as needed for pain 06/06/2019 0 predniSONE (DELTASONE) 50 mg tablet Take [...] CONTRAST Schedule Routine, Read Routine (OP Routine) 07/22/2019 12:57 PM CDT Acute recurrent pansinusitis documented in this encounter Results * CT Sinus Stealth WO Contrast (07/22/2019 12:57 PM CDT) Anatomical Region Laterality Modality Head N/A Computed Tomogra phy 07/22/2019 3:25 PM CDT Impressions 07/22/2019 3:58 PM CDT Right maxillary sinus mucus retention cyst and minimal left maxillary sinus mucosal thickening with left maxillary ostial narrowing. Dictated by: Alo Barbosa M.D. The radiology attending physician has personally reviewed this study, and had reviewed and/or edited this written report and agrees with it. Electronically signed by: Sean Delgado M.D. [facility] 07/22/2019 3:58 PM CDT EXAMINATION: CT of the paranasal sinuses without contrast HISTORY: Sinusitis. TECHNIQUE: CT of the paranasal sinuses was performed using sinus protocol without contrast. COMPARISON: None available. FINDINGS: Review of the topogram demonstrates no abnormalities. 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 The ethmoid sinuses are normal. A mucus retention cyst is present in the right maxillary sinus with mild mucosal thickening of the left maxillary sinus. The sphenoid sinuses are normal. There is narrowing of the left ostiomeatal unit. The nasal septum is at midline. No areas of bony erosion are identified. The orbits are normal. Limited view of the frontal lobes is normal. Procedure Note Sean Delgado MD - 07/22/2019 EXAMINATION: CT of the paranasal sinuses without contrast HISTORY: Sinusitis. TECHNIQUE: CT of the paranasal sinuses was performed using sinus protocol without contrast. COMPARISON: None available. FINDINGS: Review of the topogram demonstrates no abnormalities. 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 The ethmoid sinuses are normal. A mucus retention cyst is present in the right maxillary sinus with mild mucosal thickening of the left maxillary sinus. The sphenoid sinuses are normal. There is narrowing of the left ostiomeatal unit. The nasal septum is at midline. No areas of bony erosion are identified. The orbits are normal. Limited view of the frontal lobes is normal. IMPRESSION: Right maxillary sinus mucus retention cyst and minimal left maxillary sinus mucosal thickening with left maxillary ostial narrowing. Dictated by: Alo Barbosa M.D. The radiology attending physician has personally reviewed this study, and had reviewed and/or edited this written report and agrees with it. Electronically signed by: Sean Delgado M.D. Hans Amaya MD IMG CT PROCEDURES Final Result documented in this encounter Visit Diagnoses Diagnosis Acute recurrent pansinusitis documented in this encounter Additional Health Concerns Infection Onset Date Last Indicated Resolved Time C. difficile Comment:Backloaded December 21, 2010 09/21/2010 09/21/2010 documented as of this encounter Care Teams Window Glazier Relationship Specialty Start Date End Date Lenin Ventura MD [address] [place] [address] PCP - General 07/06/16 Lenin Ventura MD [id number] [address] 07/06/16 Burt Dos Santos MD PhD [address] [id number] Medical Oncologist/Assistant Editor Medical Oncology 06/16/19 documented as of this encounter
--- OUTSIDE RECORDS SUMMARY | 2024-02-22 08:32 | XMS_ITS | Encounter Summary ---
Author Organization [facility] Address [address] [place] [address] Phone Care Team Providers Care Telephone Claims Representative Name Role Phone Lenin Ventura MD Primary Care Provider [phone] Lenin Ventura MD Unavailable [phone] Burt Dos Santos MD PhD Unavailable [phone] Reason for Referral * Consultation (Routine) - Closed Specialty Diagnoses / Procedures Referred By Contac t Referred To Contact Otolaryngology Diagnoses Other sinusitis, unspecified chronicity Burt Dos Santos MD PhD Phone: tel: fax: Linh Estrella MD [address] [place] [address] Phone: tel: fax: Referral ID Status Reason Start Date Expiration Date V isits Requested Visits Authorized [id number] Closed Specialty Services Required 06/25/2019 01/03/2021 3 3 Question Answer Please select the performing region: [facility] (All Locations) [[id number]] To provider: LINH ESTRELLA [[id number]] # of visits: 1 Comments Pt needing consult for chronic sinusitis. Pt hx CLL Encounter Details Date Type Department Care Team (Late st Contact Info) Description 06/25/2019 Orders Only [facility] Bone Marrow Transplant [address] [facility] [address], [place] [address] Burt Dos Santos MD PhD [address] [facility]ONE [facility]ARROW [employer] [place] [address] Other sinusitis, unspecified chronicity (Primary Dx) Social History Tobacco Use Types Packs/Day Years Used Date Smoking Tobacco: Former Smokeless Tobacco: Never Alcohol Use Standard Drinks/Week Comments Not Currently 0 (1 standard drink = 0.6 oz pur e alcohol) Sex and Gender Information Value Date Recorded Sex Assigned at Not on file 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 difficile Comment:Backloaded December 21, 2010 09/21/2010 09/21/2010 documented as of this encounter Care Teams Telephone Claims Representative Relationship Specialty Start Date End Date Lenin Ventura MD [address] [address] PCP - General 07/06/16 Lenin Ventura MD [address] [address] 07/06/16 Burt Dos Santos MD PhD [address] [address] Medical Oncologist/Schedule Maker Medical Oncology 06/16/19 documented as of this encounter
--- OUTSIDE RECORDS SUMMARY | 2024-02-22 08:32 | XMS_ITS | Encounter Summary ---
Author Organization [facility] Address [address] [place] [address] Phone Care Team Providers Care Director Of Field Service Name Role Phone Lenin Ventura MD Primary Care Provider [phone] Lenin Ventura MD Unavailable [phone] Burt Dos Santos MD PhD Unavailable [phone] Encounter Details Date Type Department Care Team (Late st Contact Info) Description 07/16/2019 9:30 AM CDT Office Visit [facility] Bone Marrow Transplant [address], [place] [address] Burt Dos Santos MD PhD [address] IM BONE MARROW TRANSPLANT, [address] [place] [address] CLL (chronic lymphocytic leukemia) ([facility]) Social History Tobacco Use Types Packs/Day Years Used Date Smoking Tobacco: Former Smokeless Tobacco: Never Alcohol Use Standard Drinks/Week Comments Not Currently 0 (1 standard drink = 0.6 oz pur e alcohol) Sex and Gender Information Value Date Recorded Sex Assigned at Not on file 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 Gender Identity Not on file Sexual Orientation Not on file documented as of this encounter Last Filed Vital Signs Vital Sign Reading Time Taken Comments Blood Pressure 126/73 07/16/2019 8:40 AM CDT Pulse 74 07/16/2019 8:40 AM CDT Temperature 36.8 ??C (98.3 ??F) 07/16/2019 8:40 AM CD T Respiratory Rate 18 07/16/2019 8:37 AM CDT Oxygen Saturation 96% 07/16/2019 8:40 AM CDT Inhaled Oxygen Concentration - - Weight 117.3 kg (258 lb 9.6 oz) 07/16/2019 8:37 AM CDT Height - - Body Mass Index 31.48 06/12/2019 9:48 AM CDT documented in this encounter Patient Instructions * Patient Instructions* Roberta Burnett RN - 07/16/2019 9:30 AM CDT Images from the original note were not included. Butr Dos Santos MD, PhD vegetable trimmer Magali Stapleton NP Nurse Practitioner Roberta Burnett RN, BSN Transplant Nurse Coordinator Yolanda Goel Bret Insurance Commissioner Clinic Locations Every w/ ??? Dr. Dos Santos ??? ASHVIN De Los Santos ??? ALICIA Granados [facility] 7th Floor of [address] [address] For Appointment Changes ?? please call or [phone] speak with one of the secretaries or Medical Assistants For refills ?? Please call your pharmacy, request in [employer], or contact your medical sales associate at [phone] Call & Leave Your Nurse Coordinator a Message at [phone] for: ??? General Questions ??? Extreme fatigue [...] and 5:00 PM ?? Please call or [phone] to page your Nurse Coordinator Saturday - Saturday AFTER 5:00 PM, WEEKENDS & HOLIDAYS ?? CALL THE HOSPITAL FIELD INSTRUCTOR AT [phone] AND ASK TO HAVE THE BMT ON-CALL PROVIDER PAGED. For Family Medical Leave Act (FMLA) Paperwork ?? Please allow up to 10 business days to complete the paperwork ?? For questions, please call [phone] and speak with your Insurance Commissioner ?? You can fax the paperwork to [phone] Medical Records ?? This information is protected by HIPAA. Patients or their legal assistance representative may obtain copiesof their records, or have copies sent to other facilities by completing a records release while youare in our office. ?? If you aren't onsite, please call [facility] Information Release Services at [phone]. There may be a fee in obtaining medical records for your personal use. Please allow up to 30 days for the request to be processed. If needed sooner, please call [phone] [facility] Billing For questions regarding bills, use the appropriate contact information below: ?? [facility] ?? Call [phone] or toll-free [phone] ?? Online bill payment is available. For more information about this service, visit the [facility] website. ?? [email or web address] ?? [facility] ?? Call [phone] or toll-free [phone] ?? Online bill payment is available. For more information about this service, visit the [employer] website. ?? [email or web address] COVID-19 Information: https://www.bjc.org/coronavirus People at Risk for Serious Illness from COVID-19: https://www.cdc.gov/coronavirus/2019-ncov/specific -groups/nlbk-gfct-nfjdlbueqwmff.html More Resources ??? World Health Organization (WHO): https://www.who.int/emergencies/diseases/tamuz-tqqldwcnjxw-1147 ??? CDC What Do You Need to Know Factsheet: https://www.cdc.gov/coronavirus/2019-ncov/downloads/5964-xczl-qrzhkudeg.pdf documented in this encounter Progress Notes * Magali Stapleton MAIL PROCESSING ASSOCIATE - 07/16/2019 9:30 AM CDT BMT Progress Note CLL (chronic lymphocytic leukemia) ([facility]) 07/03/2005 Initial Diagnosis Lymphoma, small [...] then q2mo x 4; on clinical trial [facility] [id number] --> stable disease on CT; marrow 30-40% invovled 09/01/15 05/29/2018 - Targeted Therapy Imbruvica 420mg daily Subjective Interval History Mr. Abdullahi returns for scheduled follow up. He still has hearing problems with the tubes in his ears. He is seeing the surgeon on 07/21 to evaluate if he needs surgery. He denies fevers, chills, night sweats. He is on ibrutinib. He will hold if he gets surgery. He is otherwise feeling well. Outpatient Encounter Medications as of 07/16/2019: ??? acyclovir (ZOVIRAX) 200 mg capsule, Take [...] , Rfl: ??? Imbruvica 420 mg tablet, , Disp: , Rfl: ??? magnesium oxide (MAG-OX) [...] needed for pain, Disp: , Rfl: ??? polyethylene glycol (MIRALAX) 17 gram packet, Take 1 packet (17 g total) by mouth daily, Disp: 30 packet, Rfl: 0 ??? predniSONE (DELTASONE) 50 mg tablet, Take 50 mg by mouth daily, Disp: , Rfl: ??? ranitidine (ZANTAC) 150 mg capsule, Take 150 mg by mouth daily , Disp: , Rfl: ??? zinc 50 mg tablet, Take 50 mg by mouth daily, Disp: 30 each, Rfl: 0 ??? [DISCONTINUED] mupirocin (BACTROBAN) 2 % nasal ointment, Mix Neilmed packet with warm sterile water and dissolve 1/2 tube of mupirocin ointment into solution., Disp: 14 g, Rfl: 0 No facility-administered encounter medications on file as of 07/16/2019. Performance Status: 1 Objective Vitals: BP: 115/69 Temp: 37 ??C (98.6 ??F) Temp src: Oral Pulse: 71 Resp: 18 SpO2: 96 % Weight: 117.3 kg (258 lb 9.6 oz) Physical exam: In no acute distress HEENT:schlera white Lungs:CTA tawny Heart:RRR Abdomen:soft, non-tender Extremities:no edema Skin:no rash Neuro:no focal deficits Nodes: previously palpable sub-mental LAD is now resolved. Lab/Radiology/Diagnostic Review: CBC: Lab Results Component Value Date/Time WBC 18.3 (H) 07/16/2019 08:22 AM WBC 13.7 (H) 04/10/2019 03:03 PM HGB 12.9 (L) 07/16/2019 08:22 AM HGB 14.2 04/10/2019 03:03 PM HCT 38.0 (L) 07/16/2019 08:22 AM HCT 41.2 04/10/2019 03:03 PM LABPLAT 136 (L) 07/16/2019 08:22 AM LABPLAT 158 04/10/2019 03:03 PM NEUTROABS 3.2 07/16/2019 08:22 AM NEUTROABS 4,590 04/10/2019 03:03 PM CMP: Lab Results Component Value Date/Time SODIUM 137 07/16/2019 08:22 AM POTASSIUM 4.3 07/16/2019 08:22 AM CO2 27 07/16/2019 08:22 AM BUNSER 26 (H) 07/16/2019 08:22 AM GLUCOSE 108 07/16/2019 08:22 AM CREATININE 0.75 (L) 07/16/2019 08:22 AM CALCIUM 9.4 07/16/2019 08:22 AM CHLORIDE 100 07/16/2019 08:22 AM ALBUMIN 4.2 07/16/2019 08:22 AM AST 17 07/16/2019 08:22 AM ALT 17 07/16/2019 08:22 AM ALKPHOS 84 07/16/2019 08:22 AM BILITOT 0.5 07/16/2019 08:22 AM PROT 6.5 07/16/2019 08:22 AM ANIONGAP 10 07/16/2019 08:22 AM LDH: Lab Results Component Value Date/Time LDH 173 07/16/2019 08:22 AM Radiology None today Assessment and Plan: [...] has restarted as an inpatient as requested. He is tolerating it well. He will get IVIG today. ?? 2.?Recurrent sinus infections. We will continue IVIG for 6 months, and will continue to followup with ENT for re-assessment prior to any surgical intervention. He will see the surgeon on 07/21. If he needs surgery, he will hold the ibrutinib for 5 days before and after the surgery. ?? 3.?Thyroid nodule.?We will continue to follow this expectantly. ?? As always, the patient knows to contact our office with any questions or concerns in the interim. Cosigned by Burt Dos Santos MD PhD at 07/20/2019 5:03 PM CDT documented in this encounter Nursing Notes * Roberta Burnett RN - 07/16/2019 9:30 AM CDT SLL seen by Magali. Back on ibrutinib. Sees ENT surgeon on 07/21 for sinus surgery consultation. IVIGtoday. Doing well, ROV In 1 month with IVIG documented in this encounter Plan of Treatment Not on file documented as of this encounter Results * Lactate dehydrogenase (LD) (08/20/2019 9:32 AM CDT) Lactate dehydrogenase (LDH) 180 100 - 250 Units/L [facility] Comment:Testing performed by : [facility], [address] [place] [phone] Blood specimen (specimen) 08/20/2019 9:32 AM CDT 08/20/2019 9:35 AM CDT Burt Dos Santos MD PhD LAB BLOOD ORDERABLES Final Result [facility] [place] [address] * (ABNORMAL) Comprehensive metabolic panel (08/20/2019 9:32 AM CDT) Pathologist [facility] Sodium 138 135 - 145 mmol/L [facility] Comment:Testing performed by : [facility], [address] [place] [phone] Potassium, pl 4.4 3.3 - 4.9 mmol/L [facility] Comment:Testing performed by : [facility], [address] [place] [phone] Chloride 99 97 - 110 mmol/L [facility] Comment:Testing performed by : [facility], [address] [place] [phone] CO2 29 22 - 32 mmol/L [facility] Comment:Testing performed by : [facility], [address] [place] [phone] Anion gap 10 2 - 15 mmol/L [facility] Comment:Testing performed by : [facility], [address] [place] [phone] BUN 20 8 - 25 mg/dL [facility] Comment:Testing performed by : [facility], [address] [place] [phone] Creatinine 0.78(L) 0.80 - 1.30 mg/dL [facility] Comment:Testing performed by : [facility], [address] [place] [phone] Glucose 102 70 - 199 mg/dL [facility] [...] was last revised 2017. Testing performed by: [facility], [address] [place] [phone] Calcium 9.6 8.5 - 10.3 mg/dL [facility] Comment:Testing performed by : [address] [phone] Bilirubin, total 0.8 0.1 - 1.2 mg/dL [facility] Comment:Testing performed by : [address] [phone] Protein, pl 6.8 6.5 - 8.5 g/dL [facility] Comment:Testing performed by : [facility], [address] [place] [phone] Albumin 4.8 3.5 - 5.0 g/dL [facility] Comment:Testing performed by : [address] [phone] Alk phos 64 40 - 130 Units/L [facility] Comment:Testing performed by : [address] [phone] ALT 17 7 - 55 Units/L [facility] Comment:Testing performed by : [facility], [address] [place] [phone] AST 15 10 - 50 Units/L [facility] Comment:Testing performed by : [facility], [address] [place] [phone] Blood specimen (specimen) 08/20/2019 9:32 AM CDT 08/20/2019 9:35 AM CDT Burt Dos Santos MD PhD LAB BLOOD ORDERABLES Final Result [facility] [place] [address] * (ABNORMAL) CBC with auto differential (08/20/2019 9:32 AM CDT) WBC 17.3(H) 3.8 - 9.8 K/cumm [facility] Comment:Testing performed by : [facility], [address] [place] [phone] Hgb 13.9 13.8 - 17.2 g/dL [facility] Comment:Testing performed by : [facility], [address] [place] [phone] Hct 41.0 40.7 - 50.3 % [facility] Comment:Testing performed by : [facility], [address] [place], [place] [phone] Plt 158 140 - 440 K/cumm [facility] Comment:Testing performed by : [facility], [address] [place] [phone] MPV 11.1(H) 6.8 - 10.4 fL [facility] Comment:Testing performed by : [facility], [address] [place] [phone] RBC 4.18(L) 4.50 - 5.70 M/cumm [facility] Comment:Testing performed by : [facility], [address] [place] [phone] MCV 98.0(H) 80.0 - 97.6 fL [facility] Comment:Testing performed by : [facility], [address] [place] [phone] MCH 33.3 26.7 - 33.7 pg [facility] Comment:Testing performed by : [facility], [address] [place] [phone] MCHC 34.0 32.7 - 35.5 g/dL [facility] Comment:Testing performed by : [facility], [address] [place] [phone] RDW CV 17.5(H) 11.8 - 14.6 % [facility] Comment:Testing performed by : [facility], [address] [place] [phone] NRBC abs 0.01 0.00 - 0.01 K/cumm [facility] Comment:Testing performed by : [facility], [address] [place] [phone] Blood specimen (specimen) 08/20/2019 9:32 AM CDT 08/20/2019 9:35 AM CDT Burt Dos Santos MD PhD LAB BLOOD ORDERABLES Final Result [facility] [place] [address] documented in this encounter Visit Diagnoses Diagnosis CLL (chronic lymphocytic leukemia) (HCC) Chronic lymphoid leukemia, without mention of having achieved remission documented in this encounter Historical Medications * This list may reflect changes made after this encounter. cetirizine (ZyrTEC) 10 mg chewable tabletIndications: CLL (chronic lymphocytic leukemia) (HCC) Take 10 mg by mouth daily 02/15/2020 Imbruvica 420 mg tabletIndications: CLL (chronic lymphocytic leukemia) (HCC) 07/09/2019 0 added in this encounter Orders Appointment Requests Count Last Ordered Date Fi rst Ordered Date INFUSION APPT REQUEST 300 MIN 1 08/20/2019 ON[facility]N CLINIC APPOINTMENT REQUEST 2 020 07/16/2019 ON[facility]N LAB APPOINTMENT 1 08/20/2019 documented in this encounter Additional Health Concerns Infection Onset Date Last Indicated Resolved Time C. difficile Comment:Backloaded December 21, 2010 09/21/201009/2109/21/2010 documented as of this encounter Care Teams Director Of Field Service Relationship Specialty Start Date End Date Lenin Ventura MD [address] [address] PCP - General 07/06/16 Lenin Ventura MD [address] [address] 07/06/16 Burt Dos Santos MD PhD [address] [id number] Medical Oncologist/Clinical Laboratory Science Professor Medical Oncology 06/16/19 documented as of this encounter
--- OUTSIDE RECORDS SUMMARY | 2024-02-22 08:32 | XMS_ITS | Encounter Summary ---
Author Organization [facility] Address [address] [place] [address] Phone Care Team Providers Care Airport Baggage Screener Name Role Phone Lenin Ventura MD Primary Care Provider [phone] Lenin Ventura MD Unavailable [phone] Burt Dos Santos MD PhD Unavailable [phone] Encounter Details Date Type Department Care Team (Late st Contact Info) Description 07/16/2019 8:30 AM CDT Lab [facility] Oncology [address] [facility] [address] 7th [place] [address] [place] [address] CLL (chronic lymphocytic leukemia) (CMS/HCC) Social History Tobacco Use Types Packs/Day Years Used Date Smoking Tobacco: Former Smokeless Tobacco: Never Alcohol Use Standard Drinks/Week Comments Not Currently 0 (1 standard drink = 0.6 oz pur e alcohol) Sex and Gender Information Value Date Recorded Sex Assigned at Not on file 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 Gender Identity Not on file Sexual Orientation Not on file documented as of this encounter Plan of Treatment Not on file documented as of this encounter Procedures Procedure Name Priority Date/Time Associated Diagnosis Comments MORPHOLOGIC SCREEN STAT 07/16/2019 8: 22 AM CDT CLL (chronic lymphocytic leukemia) (CMS/HCC) DIFFERENTIAL AUTO STAT 07/16/2019 8:2 2 AM CDT CLL (chronic lymphocytic leukemia) (CMS/HCC) CBC WITH AUTO DIFFERENTIAL STAT 07/16/2019 8:22 AM CDT CLL (chronic lymphocytic leukemia) (CMS/HCC) LACTATE DEHYDROGENASE Routine 07/16/2019 8:22 AM CDT CLL (chronic lymphocytic leukemia) (CMS/HCC) IGG STAT 07/16/2019 8:22 AM CDT CLL (chronic lymphocytic leukemia) (CMS/HCC) COMPREHENSIVE METABOLIC PANEL STAT 07/16/2019 8:22 AM CDT CLL (chronic lymphocytic leukemia) (CMS/HCC) documented in this encounter Results * Morphologic screen (07/16/2019 8:22 AM CDT) Pathologist [facility] Morphologic Screen Original results obtained required verification by peripheral smear. [facility] Observation Variant lymphocytes noted on screening [facility] Blood specimen (specimen) 07/16/2019 8:22 AM CDT 07/16/2019 8:23 AM CDT Burt Dos Santos MD PhD LAB BLOOD ORDERABLES Final Result [facility] Department [place] [address] * (ABNORMAL) Differential, auto (07/16/2019 8:22 AM CDT) [facility] Neutrophil abs 3.2 1.8 - 6.6 K/cumm [facility] Comment:Testing performed by : [facility], [address] [place] [phone] Lymphocyte abs 13.9(H) 1.2 - 3.3 K/cumm [facility] Comment:Testing performed by : [facility], [address] [place] [phone] Monocyte abs 1.1 0.2 - 1.2 K/cumm [facility] Comment:Testing performed by : [facility], [address] [place] [phone] Eosinophil abs 0.1 0.0 - 0.5 K/cumm [facility] Comment:Testing performed by : [facility], [address] [place] [phone] Basophil abs 0.1 0.0 - 0.2 K/cumm [facility] Comment:Testing performed by : [facility], [address] [place] [phone] Neutrophil pct 17.4 % [facility] Comment: Interpretive Data Percent cell count reference ranges are not reported, since discordance with absolute values may lead to misinterpretation of CBC data. Current Interpretive Data was last revised on 2017. Testing performed by: [facility], [address] [place] [phone] Lymphocyte pct 75.9 % [facility] Comment: Interpretive Data Percent cell count reference ranges are not reported, since discordance with absolute values may lead to misinterpretation of CBC data. Current Interpretive Data was last revised on 2017. Testing performed by: [facility], [address] [place] [phone] Monocyte pct 6.0 % [facility] Comment:Testing performed by : [facility], [address] [place] [phone] Eosinophil pct 0.4 % [facility] Comment:Testing performed by : [facility], [address] [place] [phone] Basophil pct 0.3 % [facility] Comment:Testing performed by : [facility], [address] [place] [phone] Blood specimen (specimen) 07/16/2019 8:22 AM CDT 07/16/2019 8:23 AM CDT us Burt Dos Santos MD PhD LAB BLOOD ORDERABLES Final Result [facility] Department [place] [address] * Lactate dehydrogenase (LD) (07/16/2019 8:22 AM CDT) Lactate dehydrogenase (LDH) 173 100 - 250 Units/L [facility] Comment:Testing performed by : [facility] [address] Blood specimen (specimen) 07/16/2019 8:22 AM CDT 07/16/2019 8:23 AM CDT Burt Dos Santos MD PhD LAB BLOOD ORDERABLES Final Result [facility] Department [place] [address] * (ABNORMAL) CBC with auto differential (07/16/2019 8:22 AM CDT) WBC 18.3(H) 3.8 - 9.8 K/cumm [facility] Comment:Testing performed by : [facility], [address] [place] [phone] Hgb 12.9(L) 13.8 - 17.2 g/dL [facility] Comment:Testing performed by : [address] [address] Hct 38.0(L) 40.7 - 50.3 % [facility] Comment:Testing performed by : [address] [phone] Plt 136(L) 140 - 440 K/cumm [facility] Comment:Testing performed by : [address] [address] MPV 10.3 6.8 - 10.4 fL [facility] Comment:Testing performed by : [address] [address] RBC 3.86(L) 4.50 - 5.70 M/cumm [facility] Comment:Testing performed by : [address] [phone] MCV 98.5(H) 80.0 - 97.6 fL [facility] Comment:Testing performed by : [address] [address] MCH 33.3 26.7 - 33.7 pg [facility] Comment:Testing performed by : [facility], [address] [place] [phone] MCHC 33.8 32.7 - 35.5 g/dL [facility] Comment:Testing performed by : [facility], [address] [place] [phone] RDW CV 17.4(H) 11.8 - 14.6 % [facility] Comment:Testing performed by : [facility], [address] [place] [phone] NRBC abs 0.01 0.00 - 0.01 K/cumm [facility] Comment:Testing performed by : [facility], [address] [place] [phone] Blood specimen (specimen) 07/16/2019 8:22 AM CDT 07/16/2019 8:23 AM CDT Narrative [facility] - 07/16/2019 8:32 AM CDT Prior to IVIG Burt Dos Santos MD PhD LAB BLOOD ORDERABLES Final Result [facility] Department [place] [address] * (ABNORMAL) Comprehensive metabolic panel (07/16/2019 8:22 AM CDT) Sodium 137 135 - 145 mmol/L [facility] Comment:Testing performed by : [facility], [address] [place] [phone] Potassium, pl 4.3 3.3 - 4.9 mmol/L [facility] Comment:Testing performed by : [facility], [address] [place] [phone] Chloride 100 97 - 110 mmol/L [facility] Comment:Testing performed by : [facility], [address] [place] [phone] CO2 27 22 - 32 mmol/L [facility] Comment:Testing performed by : [facility], [address] [place] [phone] Anion gap 10 2 - 15 mmol/L [facility] Comment:Testing performed by : [facility], [address] [place] [phone] BUN 26(H) 8 - 25 mg/dL [facility] Comment:Testing performed by : [facility], [address] [place] [phone] Creatinine 0.75(L) 0.80 - 1.30 mg/dL [facility] Comment:Testing performed by : [facility], [address] [place] [phone] Glucose 108 70 - 199 mg/dL [facility] Comment: [...] last revised 2017. Testing performed by: [facility], [address] [place] [phone] Calcium 9.4 8.5 - 10.3 mg/dL [facility] Comment:Testing performed by : [facility], [address] [place] [phone] Bilirubin, total 0.5 0.1 - 1.2 mg/dL [facility] Comment:Testing performed by : [address] [address] Protein, pl 6.5 6.5 - 8.5 g/dL [facility] Comment:Testing performed by : [facility], [address] [place] [phone] Albumin 4.2 3.5 - 5.0 g/dL [facility] Comment:Testing performed by : [facility], [address] [place] [phone] Alk phos 84 40 - 130 Units/L [facility] Comment:Testing performed by : [address] [phone] ALT 17 7 - 55 Units/L [facility] Comment:Testing performed by : [facility], [address] [facility] [address] AST 17 10 - 50 Units/L [facility] Comment:Testing performed by : [facility], [facility] [address] Blood specimen (specimen) 07/16/2019 8:22 AM CDT 07/16/2019 8:23 AM CDT Narrative [facility] - 07/16/2019 8:50 AM CDT Prior to IVIG Burt Dos Santos MD PhD LAB BLOOD ORDERABLES Final Result Performing Organization Address City/[facility]/ZIP Co de Phone Number [facility] [place] [address] * (ABNORMAL) IgG (07/16/2019 8:22 AM CDT) Immunoglobulin G 545.0(L) 700.0 - 1,600.0 mg/dL [facility] Blood specimen (specimen) 07/16/2019 8:22 AM CDT 07/16/2019 8:55 AM CDT Narrative [facility] - 07/16/2019 9:26 AM CDT Prior to IVIG Burt Dos Santos MD PhD LAB BLOOD ORDERABLES Final Result Performing Organization Address City/[facility] Co de Phone Number [facility] [place] [address] documented in this encounter Visit Diagnoses Diagnosis CLL (chronic lymphocytic leukemia) (HCC) Chronic lymphoid leukemia, without mention of having achieved remission documented in this encounter Orders Appointment Requests Count Last Ordered Date Fi rst Ordered Date ONCBCN LAB APPOINTMENT 1 07/16/2019 documented in this encounter Additional Health Concerns Infection Onset Date Last Indicated Resolved Time C. difficile Comment:Backloaded December 21, 2010 09/21/2010 09/21/2010 documented as of this encounter Care Teams Airport Baggage Screener Relationship Specialty Start Date End Date Lenin Ventuar MD [address] [id number] PCP - General 07/06/16 Lenin Ventura MD [facility] [address] [address] 07/06/16 Burt Dos Santos MD PhD [facility] [address] [id number] Medical Oncologist/Trouble Shooting Mechanic Medical Oncology 06/16/19 documented as of this encounter
--- OUTSIDE RECORDS SUMMARY | 2024-02-22 08:32 | XMS_ITS | Encounter Summary ---
Author Organization [facility] Address [address] [place] [address] Phone Care Team Providers Care Focused Factory Manager Name Role Phone Lenin Ventura MD Primary Care Provider [phone] Lenin Ventura MD Unavailable [phone] Burt Dos Santos MD PhD Unavailable [phone] Reason for Visit * Reason Comments Audiometric Evaluation * Consultation (Routine) - Canceled Specialty Diagnoses / Procedures Referred By Trent delgado Referred To Contact Otolaryngology Diagnoses Acute recurrent pansinusitis Lenin Ventura MD [address] [address] Phone: tel: fax: [facility] (All Locations) Referral ID Status Reason Start Date Expiration Date Visits Requested Visits Authorized [id number] Canceled Specialty Services Required 07/22/2019 01/30/2021 3 3 Encounter Details Date Type Department Care Team (Latest Contact Info) Description 09/14/2019 9:15 AM CDT Procedure visit [facility] Otolaryngology [address] 11th [place] [address] [place] [address] Lyndsay Ratliff Au.D. 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 - 09/14/2019 9:15 AM CDT Procedures PATIENT: MICHELINE OLIVO : 1950 TYPE OF SERVICE: Audiologic Evaluation DATE OF SERVICE: 09/14/19 Referral Source: Betsy Olivia M.D. PATIENT REPORTS: Mr. Olivo reports that he had a severe sinus infection and also has non Hodgkin's lymphoma. With the infection, he lost hearing and he was then hospitalized for the infection in late May/early June. He had tubes placed while in the hospital, which improved his hearing. However, he states that he continues to have popping and some drainage from the ears. He also states that his hearing can fluctuate at times and in general, seems 'flat'. He states that he has also noticed some difficulty with localizing sound and general increased difficulty in noisy settings. He also reports tinnitus in both ears that mostly noticeable in quiet settings. TESTS PERFORMED: See: comprehensive audiometry, tympanometry ASSESSMENT: Pure tone audiometry was performed and revealed: R ear - Slight mixed hearing loss at 250 and 500 Hz, rising to normal hearing at 1000 and 2000 Hz, then sloping from slight loss at 3000 Hz to mild loss at 4000 Hz, further sloping to moderate loss at 6000 and 8000 Hz. L ear - Normal hearing at 250 Hz, sloping to slight mixed hearing loss at 500 and 1000 Hz, rising back to normal at 2000 and 3000 Hz, then sloping to moderate to moderately-severe loss 4000 to 8000 Hz. Speech recognition thresholds test was performed and revealed: R ear - normal L ear - slight loss Word recognition testing was performed at [facility] using recorded version of NU-6 lists of a female speaker: R ear - normal ability L ear - normal ability Tympanometry was performed and revealed: Both ears - Static Compliance: Normal Middle Ear Pressure: Negative (right - -143; left - -148) Ear Canal Volume: Slightly large (right - 2.8; left - 2.2), possibly consistent with patent tubes Changes compared to last evaluation on 07/10/19: R ear - air conduction thresholds improved 10 dB at 250, 2000, and 8000 Hz, 15 dB at 500, 4000, [id number] L ear - air conduction thresholds improved 25 dB at 4000 Hz The results were reviewed with the patient and any questions were answered. PLAN/RECOMMENDATIONS: As per Dr. Olivia Retest post medical management/12 months/PRN Hearing assistive technology Hearing protection in noise documented in this encounter Plan of Treatment Not on file documented as of this encounter Procedures Procedure Name Priority Date/Time Associated Diagnosis Comments AUDBASE RESULTS 09/14/2019 documented in this encounter Results * AUDBASE RESULTS (09/14/2019) Provider Scanning AUDIOLOGY SERVICES ORDERABLES Final Result documented in this encounter Visit Diagnoses Diagnosis Mixed hearing loss, bilateral- Primary documented in this encounter Additional Health Concerns Infection Onset Date Last Indicated Resolved Time C. difficile Comment:Backloaded December 21, 2010 09/21/2010 09/21/2010 documented as of this encounter Care Teams Focused Factory Manager Relationship Specialty Start Date End Date Lenin Ventura MD [address] [address] PCP - General 07/06/16 Lenin Ventura MD [address] [address] 07/06/16 Burt Dos Santos MD PhD [address] [address] Medical Oncologist/Meeting Facilitator Medical Oncology 06/16/19 documented as of this encounter
--- OUTSIDE RECORDS SUMMARY | 2024-02-22 08:32 | XMS_ITS | Encounter Summary ---
Author Organization [facility] Address [address] [place] [address] Phone Care Team Providers Care Bank And Savings Securities Trader Name Role Phone Lenin Ventura MD Primary Care Provider [phone] Lenin Ventura MD Unavailable [phone] Burt Dos Santos MD PhD Unavailable [phone] Reason for Visit * Reason Onset Date Comments Telephone Call 06/25/2019 Questions Encounter Details Date Type Department Care Team (Late st Contact Info) Description 06/25/2019 Documentation [facility] Otolaryngology [address] [address] Vandana Guerra CMA Telephone Call (Questions) Social History Tobacco Use Types Packs/Day Years Used Date Smoking Tobacco: Former Smokeless Tobacco: Never Alcohol Use Standard Drinks/Week Comments Not Currently 0 (1 standard drink = 0.6 oz pur e alcohol) Sex and Gender Information Value Date Recorded Sex Assigned at Not on file 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 Went over instructions in detail and advised pt that I sent a refill to the pharmacy and spoke with them-they are going to try and getthe refill override from the insurance. Advised pt to call if he has any other questions or concerns. documented in this encounter Plan of Treatment Not on file documented as of this encounter Visit Diagnoses Not on filedocumented in this encounter Additional Health Concerns Infection Onset Date Last Indicated Resolved Time C. difficile Comment:Backloaded December 21, 2010 09/21/2010 09/21/2010 documented as of this encounter Care Teams Bank And Savings Securities Trader Relationship Specialty Start Date End Date Lenin Ventura MD [address] [place] [address] PCP - General 07/06/16 Lenin Ventura MD [address] [place] [address] 07/06/16 Burt Dos Santos MD PhD [address] [place] [address] Medical Oncologist/College Coach Medical Oncology 06/16/19 documented as of this encounter
--- OUTSIDE RECORDS SUMMARY | 2024-02-22 08:32 | XMS_ITS | Encounter Summary ---
Author Organization [facility] Address [address] [place] [address] Phone Care Team Providers Care Justice Professor Name Role Phone Lenin Ventura MD Primary Care Provider [phone] Lenin Ventura MD Unavailable [phone] Burt Dos Santos MD PhD Unavailable [phone] Reason for Visit * Episode Based Medications (Routine) - Authorized Specialty Diagnoses / Procedures Referred By Contguillermo t Referred To Contact Diagnoses Hypogammaglobulinemia (HCC) Procedures VA GAMUNEX-C/GAMMAKED GAMUNEX Burt Dos Santos MD PhD [address] DIV IM BONE MARROW TRANSPLANT, [address] [place] [address] Phone: tel: fax: [facility] [address] [facility] 7th [place] [address] Phone: tel: Referral ID Status Reason Start Date Expiration Date V isits Requested Visits Authorized [id number] Authorized 10/19/2019 08/02/2024 1 38 Encounter Details Date Type Department Care Team (Late st Contact Info) Description 09/17/2019 11:30 AM CDT Infusion [facility] Oncology [address] [place] [address] [place] [address] CLL (chronic lymphocytic leukemia) (CMS/HCC) (Primary Dx); Hypogammaglobulinemia (CMS/HCC) Social History Tobacco Use Types Packs/Day Years Used Date Smoking Tobacco: Former Smokeless Tobacco: Never Alcohol Use Standard Drinks/Week Comments Not Currently 0 (1 standard drink = 0.6 oz pur e alcohol) Sex and Gender Information Value Date Recorded Sex Assigned at Not on file 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 No adverse reactions. No questions or concerns. Will call with any issues that arise. Discharge stable condition. Follow up appts with pt. documented in this encounter Plan of Treatment [...] mg 650 mg, oral, Once, On [place] 09/17/19 at 1115, For 1 dose, Please give 30 minutes prior to IVIG.Indications:Hypogamm aglobulinemia (HCC) Given 09/17/2019 10:48 AM CDT 650 mg diphenhydrAMINE (BENADRYL) tab/cap 25 mg 25 mg, oral, Once, On [place] 09/17/19 at 1115, For 1 dose, Give 30 minutes prior to IVIG.Indications:Hypogamm aglobulinemia (HCC) Given 09/17/2019 10:48 AM CDT 25 mg immune globulin (GAMUNEX-C,GAMMAKED) 10 % infusion 35 g 35 g (rounded from 34.72 g = 400 mg/kg ? 86.8 kg [place] weight), intravenous, Once, On [place] 09/17/19 at 1145, For 1 dose, Titrations Only:, , Gamunex Initial: , - Initiate infusion at 0.6 mL/kg/hr. If no reaction, may increase rate by 0.6 mL/kg/hr every 30 minutes, to a max of 4.8 mL/kg/hr , , Gamunex Subsequent: , - Initiate at 0.6 mL/kg/hr. If no reaction, may increase rate by 0.6 mL/kg/hr every 15 minutes, to a max of 4.8 mL/kg/hr , , , IVIG is to be dosed on IBW unless the actual body weight is less than ideal. If actual body weight is less than ideal body weight, [facility] pharmacies to adjust doses to use the actual body weight per P&T approved protocol. pharmacies to call prescriber for dose adjustments., , GamuNEX C SUBSEQUENT Infusion, 15 Minute Titration , , Patient Weight: 86.8 kg , , Initiate Infusion at 0.6 mL/kg/hr. ??If no reaction, may increase rate by 0.6 mL/kg/hr every 15 minutes, to a max of 4.8 mL/kg/hr , , 0.6 mL/kg/hr = Infuse 13 mL over 15 minutes (Rate = 52 mL/hr) , 1.2 mL/kg/hr = Infuse 26 mL over 15 minutes (Rate = 104 mL/hr) , 1.8 mL/kg/hr = Infuse 39 mL over 15 minutes (Rate = 156 mL/hr) , 2.4 mL/kg/hr = Infuse 52 mL over 15 minutes (Rate = 208 mL/hr) , 3.0 mL/kg/hr = Infuse 65 mL over 15 minutes (Rate = 260 mL/hr) , 3.6 mL/kg/hr = Infuse 78 mL over 15 minutes (Rate = 312 mL/hr) , 4.2 mL/kg/hr = Infuse 91 mL over 15 minutes (Rate = 365 mL/hr) , 4.8 mL/kg/hr for remainder (Rate = 417 mL/hr)Indications:Hypogam maglobulinemia (HCC) Rate/Dose Change 09/17/2019 1:13 PM CDT 365 mL/hr Rate/Dose Change 09/17/2019 12:57 PM CDT 312 mL /hr Rate/Dose Change 09/17/2019 12:40 PM CDT 260 mL /hr documented in this encounter Orders Nursing Count Last Ordered Date First Orde red Date ONCBCN NURSING COMMUNICATION [id number] 2 0 09/17/2019 VITAL SIGNS INTRA-INFUSION 1 09/17/2019 Appointment Requests Count Last Ordered Date Fi rst Ordered Date INFUSION APPT REQUEST 300 MIN 1 09/17/2019 documented in this encounter Additional Health Concerns Infection Onset Date Last Indicated Resolved Time C. difficile Comment:Backloaded December 21, 2010 09/21/2010 09/21/2010 documented as of this encounter Care Teams Justice Professor Relationship Specialty Start Date End Date Lenin Ventura MD [address] [address] PCP - General 07/06/16 Lenin Ventura MD [address] [address] 07/06/16 Burt Dos Santos MD PhD [address] [address] Medical Oncologist/Crepe Sole Scourer Medical Oncology 06/16/19 documented as of this encounter
--- OUTSIDE RECORDS SUMMARY | 2024-02-22 08:32 | XMS_ITS | Encounter Summary ---
Author Organization [facility] Address [address] [place] [address] Phone Care Team Providers Care Manager Erp Name Role Phone Lenin Ventura MD Primary Care Provider [phone] Lenin Ventura MD Unavailable [phone] Burt Dos Santos MD PhD Unavailable [phone] Reason for Visit * Reason Onset Date Comments Hospital Discharge 06/16/2019 Encounter Details Date Type Department Care Team (Late st Contact Info) Description 06/16/2019 Telephone 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 Care Coordination Note Reviewed: Yes ??? Discharged from: [facility] ??? Discharge to: Home ??? New equipment: antibiotics ??? New Treatment: none ??? Patient received growth factor? not applicable ??? Issues since Discharge: other none ??? Issues with discharge planning: No. Magali spoke with patient this morning and instructed patient to reinstate ibrutinib. Follow Up Appointment Review ??? Reviewed next return office visit: Appointment scheduled for 06/24 o Eligible for Transitional Care Visit? Yes Medication Review ??? Received all discharge medications: yes o New Medications: Medication reconcilitation reviewed with patient. o Patient has antiemetics available? not applicable o Is the patient on a research study with a research oral medication? no documented in this encounter Plan of Treatment Not on file documented as of this encounter Visit Diagnoses Not on filedocumented in this encounter Additional Health Concerns Infection Onset Date Last Indicated Resolved Time C. difficile Comment:Backloaded December 21, 2010 09/21/2010 09/21/2010 documented as of this encounter Care Teams Manager Erp Relationship Specialty Start Date End Date Lenin Ventura MD [address] [address] PCP - General 07/06/16 Lenin Ventura MD [address] [address] 07/06/16 Burt Dos Santos MD PhD [address] [address] Medical Oncologist/Liquified Natural Gas Technician Medical Oncology 06/16/19 documented as of this encounter
--- OUTSIDE RECORDS SUMMARY | 2024-02-22 08:32 | XMS_ITS | Encounter Summary ---
Author Organization [facility] Address [address] [place] [address] Phone Care Team Providers Care Rails Developer Name Role Phone Lenin Ventura MD Primary Care Provider [phone] Lenin Ventura MD Unavailable [phone] Burt Dos Santos MD PhD Unavailable [phone] Reason for Referral * Diagnostic Imaging (Routine) - Closed Specialty Diagnoses / Procedures Referred By Trent delgado Referred To Contact Radiology Diagnoses Acute recurrent pansinusitis Procedures CT Sinus Stealth WO Contrast Hans Amaya MD [address] [place] [address] Phone: tel: fax: [address] [address] Referral ID Status Reason Start Date Expiration Date Visits Re quested Visits Authorized [id number] Closed 07/22/2019 10/20/2019 1 1 * Consultation (Routine) - Closed Specialty Diagnoses / Procedures Referred By Trent delgado Referred To Contact Otolaryngology Diagnoses Acute recurrent pansinusitis Lenin Ventura MD [address] [address] Phone: tel: fax: [facility] (All Locations) Referral ID Status Reason Start Date Expiration Date V isits Requested Visits Authorized [id number] Closed Specialty Services Required 07/13/2019 01/21/2021 1 1 Question Answer Please select the performing region: [facility] (All Locations) [[id number]] # of visits: 1 Reason for Visit * Reason Comments Sinusitis * Consultation (Routine) - Closed Specialty Diagnoses / Procedures Referred By Contac t Referred To Contact Otolaryngology Diagnoses Acute recurrent pansinusitis Lenin Ventura MD [address] [address] Phone: tel: fax: [facility] (All Locations) Referral ID Status Reason Start Date Expiration Date V isits Requested Visits Authorized [id number] Closed Specialty Services Required 07/13/2019 01/21/2021 1 1 Encounter Details Date Type Department Care Team (Late st Contact Info) Description 07/22/2019 11:00 AM CDT Office Visit [facility] ENT [address] [facility] Medical Office Building [address] [place] [address] Hans mAaya MD [address] [facility] [address] [place] [address] Acute recurrent pansinusitis (Primary Dx) Social History Tobacco Use Types Packs/Day Years Used Date Smoking Tobacco: Former Smokeless Tobacco: Never Alcohol Use Standard Drinks/Week Comments Not Currently 0 (1 standard drink = 0.6 oz pur e alcohol) Sex and Gender Information Value Date Recorded Sex Assigned at Not on file 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 HISTORY OF PRESENT ILLNESS Mr. Abdullahi returns to clinic today for evaluation of His sinusitis. He was recently hospitalized secondary to ear and sinus infections. He was placed on antibiotics during that hospitalization and aCT scan showed hernandez sinusitis worse on the left. Since he's been home his main symptoms have been his ear pressure and decreased hearing. He has PE tubes and is following with Dr. Olivia for this. Past Medical/Surgical History Past Medical History: Diagnosis Date ??? Anxiety and depression ??? CLL (chronic lymphocytic leukemia) (CMS/HCC) ??? Thyroid nodule 06/12/2019 Past Surgical History: Procedure Laterality Date ??? BIOPSY LYMPH NODE SUPERFICIAL N/A 12/07/2014 ??? CERVICAL SPINE SURGERY [address] Shaquille King at [facility] ??? [facility] ??? LYMPH NODE BIOPSY 2006 Past Family/Social [...] file Gets together: Not on file Attends church service: Not on file Active member of [...] nostril daily ??? Imbruvica 420 mg tablet ??? magnesium oxide (MAG-OX) 250 mg (150.8 mg elemental) tablet Take 1 tablet (250 mg total) by mouth daily ??? melatonin 5 mg capsule Take 5 mg by mouth nightly as needed (insomnia) 0 ??? mupirocin (BACTROBAN) 2 % nasal ointment Mix Neilmed packet with warm sterile water and dissolve 1/2 tube of mupirocin ointment into solution. 14 g 0 ??? mupirocin (BACTROBAN) 2 % ointment Apply 1 inch of ointment to nasal irrigations 3x's daily 30 g 3 ??? oxyCODONE-acetaminophen (PERCOCET) 7.5-325 mg per tablet Take 1 tablet by mouth every 6 (six) hours as needed for pain ??? polyethylene glycol (MIRALAX) 17 gram packet Take 1 packet (17 g total) by mouth daily 30 packet 0 ??? predniSONE (DELTASONE) 50 mg tablet Take [...] Intramuscular 01/15/2019 ??? Influenza, Trivalent, Intramuscular 01/29/2012 PHYSICAL EXAMINATION: GENERAL: Well-developed, well-nourished. Voice quality is normal. NEURO/PSYCH: Cranial nerves II- XII are grossly normal. Affect is normal. Alert and oriented. Extraocular muscles are intact. HEAD/FACE: Normocephalic; atraumatic. No facial skin lesions. Facial strength is 5/5 and the face is symmetric. NOSE: External nose has no skin lesions. Anterior rhinoscopy is limited by obstructive anatomy, please see endoscopy below. MUSCULOSKELATAL: Ambulates without difficulty. Neck full range of motion. RESPIRATORY: Breathing comfortably without audible wheeze, stertor or stridor. PROCEDURE: Nasal Endoscopy: Indications: Due to inadequate visualization on anterior rhinoscopy, rigid nasal endoscopy was undertaken. Endoscope ID: [id number] Description: Topical nasal decongestant and anesthesia was applied, a 30 degree 4mm rigid nasal endoscope was introduced into the right and left nasal cavity. The nasal valve areas were examined for abnormalities or collapse. The inferior and middle turbinates were evaluated. The middle and superior meatuses, the sphenoethmoid recesses, and the nasopharynx were inspected for mucopurulence and polyps. Findings: No polyps or purulence noted bilaterally. RESULTS: none ASSESSMENT & PLAN: Problem List Items Addressed This Visit Respiratory Acute recurrent sinusitis - Primary Relevant Orders Ambulatory referral to ENT CT Sinus Sterebel Guerrero (Completed) I will repeat a CT scan of his sinuses - if he has persistent sinusitis then surgery may be needed. Hans Amaya M.D., M.A., F.A.C.S. Supervisor Green End Department of Rhinology and Anterior Skull Base Surgery [facility] [address] [place] [phone] - Office - Appointments - Clinical coordinator (Kate Pompa LPN) - Clinical fax - Academic office fax EMAIL: [email or web address] documented in this encounter Plan of Treatment Scheduled Referrals Name Type Priority Associated Diagnoses Orde r Schedule Ambulatory referral to ENT Outpatient Referral Routine Acute recurrent pansinusitis Expected: 07/27/2019 (Approximate), Expires: 07/12/2020 documented as of this encounter Results * [...] it. Electronically signed by: Sean Delgado M.D. Narrative 07/22/2019 3:58 PM CDT EXAMINATION: CT of [...] Diagnoses Diagnosis Acute recurrent pansinusitis- Primary Acute recurrent pansinusitis documented in this encounter Additional Health Concerns Infection Onset Date Last Indicated Resolved Time C. difficile Comment:Backloaded December 21, 2010 09/21/2010 09/21/2010 documented as of this encounter Care Teams Rails Developer Relationship Specialty Start Date End Date Lenin Ventura MD [address] [address] PCP - General 07/06/16 Lenin Ventura MD [address] [address] 07/06/16 Burt Dos Santos MD PhD [address] [address] Medical Oncologist/Lining Vamper Medical Oncology 06/16/19 documented as of this encounter
--- OUTSIDE RECORDS SUMMARY | 2024-02-22 08:32 | XMS_ITS | Encounter Summary ---
Author Organization [facility] Address [address] [place] [address] Phone Care Team Providers Care Choker Hooker Name Role Phone Lenin Ventura MD Primary Care Provider [phone] Lenin Ventura MD Unavailable [phone] Burt Dos Santos MD PhD Unavailable [phone] Encounter Details Date Type Department Care Team (Late st Contact Info) Description 07/24/2019 Orders Only [place] [facility] - [facility] ENT [address] [facility] Advanced Medicine 11th [place] [address] [place] [address] Hans Amaya MD [address] [place], [place] [id number] Social History Tobacco Use Types Packs/Day Years Used Date Smoking Tobacco: Former Smokeless Tobacco: Never Alcohol Use Standard Drinks/Week Comments Not Currently 0 (1 standard drink = 0.6 oz pur e alcohol) Sex and Gender Information Value Date Recorded Sex Assigned at Not on file 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 difficile Comment:Backloaded December 21, 2010 09/21/2010 09/21/2010 documented as of this encounter Care Teams Choker Hooker Relationship Specialty Start Date End Date Lenin Ventura MD [address] [address] PCP - General 07/06/16 Lenin Ventura MD [address] [address] 07/06/16 Burt Dos Santos MD PhD [address] [address] Medical Oncologist/Prosthodontist/Owner Medical Oncology 06/16/19 documented as of this encounter
--- OUTSIDE RECORDS SUMMARY | 2024-02-22 08:32 | XMS_ITS | Encounter Summary ---
Author Organization [facility] Address [address] [place] [address] Phone Care Team Providers Care Rim Fire Priming Operator Name Role Phone Lenin Ventura MD Primary Care Provider [phone] Lenin Ventura MD Unavailable [phone] Burt Dos Santos MD PhD Unavailable [phone] Reason for Visit * Consultation (Routine) - Canceled Specialty Diagnoses / Procedures Referred By Trent delgado Referred To Contact Otolaryngology Diagnoses Acute recurrent pansinusitis Lenin Ventura MD [address] [address] Phone: tel: fax: [facility] (All Locations) Referral ID Status Reason Start Date Expiration Date Visits Requested Visits Authorized [id number] Canceled Specialty Services Required 07/22/2019 01/30/2021 3 3 Encounter Details Date Type Department Care Team (Late st Contact Info) Description 07/23/2019 9:00 AM CDT [facility] - [facility] ENT [address] [facility] 11th [place] [address] [place] [address] Hans Amaya MD [address] [place] [address] Acute recurrent pansinusitis (Primary Dx) Social History Tobacco Use Types Packs/Day Years Used Date Smoking Tobacco: Former Smokeless Tobacco: Never Alcohol Use Standard Drinks/Week Comments Not Currently 0 (1 standard drink = 0.6 oz pur e alcohol) Sex and Gender Information Value Date Recorded Sex Assigned at Not on file 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 This was a telemedicine visit with Jeff Abdullahi alone which took place via Real-time video connection [employer], [employer] or similar). During the visit, I was located at my office and the patient was located at home. The session started at 9:01 and ended at 9:10. The patient has been informed that the visit may not be secure and acknowledged the information. I have explained the option of participating in a telephone or video visit during the COVID-19 public health emergency to the patient. After being given an opportunity to ask questions about and discuss this type of visit, the patient verbally consented to proceeding with the telephone/video visit.The patient understands that this service replaces an office visit and they may be billed and/or responsible for any applicable copayments. Hans Amaya MD I reviewed Mr. Abdullahi's CT sinus from yesterday with him. It demonstrates significant improvement in his sinusitis with near complete resolution of the left sided sinusitis. He also has better aeration of his middle ear spaces. He can stop the mupirocin irrigations and just use saline irrigations.I can see him back as needed. He will continue to follow with Dr. Olivia. Hans Amaya M.D., M.A., F.A.C.S. Service Parts Driver Division of Rhinology and Anterior Skull Base Surgery [facility] [address] [place] [id number] - Appointments - Clinical coordinator (Kate Pompa LPN) - Clinical fax - Academic office - Academic office fax EMAIL: [email or web address] documented in this encounter Plan of Treatment Not on file documented as of this encounter Visit Diagnoses Diagnosis Acute recurrent pansinusitis- Primary documented in this encounter Additional Health Concerns Infection Onset Date Last Indicated Resolved Time C. difficile Comment:Backloaded December 21, 2010 09/21/2010 09/21/2010 documented as of this encounter Care Teams Rim Fire Priming Operator Relationship Specialty Start Date End Date Lenin Ventura MD [email or web address] [address] PCP - General 07/06/16 Lenin Ventura MD [email or web address] [address] 07/06/16 Burt Dos Santos MD PhD [email or web address] [address] Medical Oncologist/Channel Rougher Medical Oncology 06/16/19 documented as of this encounter
--- OUTSIDE RECORDS SUMMARY | 2024-02-22 08:32 | XMS_ITS | Encounter Summary ---
Author Organization [facility] Address [address] [place] [address] Phone Care Team Providers Care Plant Maintenance Supervisor Name Role Phone Lenin Ventura MD Primary Care Provider [phone] [phone] Lenin Ventura MD Unavailable [phone] Burt Dos Santos MD PhD Unavailable [phone] Reason for Referral * MRI/CAT/PET Scan (Routine) - Closed Specialty Diagnoses / Procedures Referred By Contac t Referred To Contact Radiology Diagnoses CLL (chronic lymphocytic leukemia) (HCC) Procedures CT soft tissue neck with contrast Magali Stapleton NP Phone: tel: fax: [address] [address] Referral ID Status Reason Start Date Expiration Date Visits Re quested Visits Authorized [id number] Closed 09/17/2019 10/17/2019 1 1 * MRI/CAT/PET Scan (Routine) - Closed Specialty Diagnoses / Procedures Referred By Contguillermo t Referred To Contact Radiology Diagnoses CLL (chronic lymphocytic leukemia) (HCC) Procedures CT chest abdomen pelvis with contrast Magali Stapleton NP Phone: tel: fax: [address] [address] Referral ID Status Reason Start Date Expiration Date Visits Re quested Visits Authorized [id number] Closed 09/17/2019 10/17/2019 1 1 Encounter Details Date Type Department Care Team (Late st Contact Info) Description 08/20/2019 10:45 AM CDT Office Visit [facility] Bone Marrow Transplant [address] [facility] [address] 7th Floor, [place] [id number] Burt Dos aSntos MD PhD [address] BONE MARROW TRANSPL[address], [address] [place] [address] CLL (chronic lymphocytic leukemia) (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 Gender Identity Not on file Sexual Orientation Not on file documented as of this encounter Last Filed Vital Signs Vital Sign Reading Time Taken Comments Blood Pressure 127/64 08/20/2019 9:43 AM CDT Pulse 70 08/20/2019 9:43 AM CDT Temperature 36.7 ??C (98.1 ??F) 08/20/2019 9:43 AM CD T Respiratory Rate 18 08/20/2019 9:43 AM CDT Oxygen Saturation 98% 08/20/2019 9:43 AM CDT Inhaled Oxygen Concentration - - Weight 117.6 kg (259 lb 3.2 oz) 08/20/2019 9:43 AM CDT Height - - Body Mass Index 31.55 07/31/2019 7:57 AM CDT documented in this encounter Patient Instructions * Patient Instructions* Roberta Burnett RN - 08/20/2019 10:45 AM CDT Images from the original note were not included. Burt Dos Santos MD, PhD silk screen processor Magali Stapleton NP Nurse Practitioner Roberta Burnett RN, BSN Transplant Nurse Coordinator Yolanda Goel Bret Physicist Astrophysics Clinic Locations Every w/ ??? Dr. Dos Santos ??? ASHVIN De Los Santos ??? ALICIA Granados [facility] [address]th [id number] [place] [address] For Appointment Changes ?? please call or [phone] speak with one of the secretaries or Medical Assistants For refills ?? Please call your pharmacy, request in Intellionet, or contact your medical policy specialist at [phone] Call & Leave Your Nurse Coordinator a Message at [phone] for: ??? General Questions ??? Extreme fatigue [...] and 5:00 PM ?? Please call or [phone] to page your Nurse Coordinator Saturday - Saturday AFTER 5:00 PM, WEEKENDS & HOLIDAYS ?? CALL THE HOSPITAL HOT ROLLER AT [phone] AND ASK TO HAVE THE BMT ON-CALL PROVIDER PAGED. For Family Medical Leave Act (FMLA) Paperwork ?? Please allow up to 10 business days to complete the paperwork ?? For questions, please call [phone] and speak with your Physicist Astrophysics ?? You can fax the paperwork to [phone] Medical Records ?? This information is protected by HIPAA. Patients or their legal mortician supplies sales representative may obtain copiesof their records, or have copies sent to other facilities by completing a records release while youare in our office. ?? If you aren't onsite, please call [facility] Information Release Services at [phone]. There may be a fee in obtaining medical records for your personal use. Please allow up to 30 days for the request to be processed. If needed sooner, please call [phone] [facility] Billing For questions regarding bills, use the appropriate contact information below: ?? [facility] ?? Call [phone] or toll-free [phone] ?? Online bill payment is available. For more information about this service, visit the [facility] website. ?? [email or web address] ?? [facility] ?? Call [phone] or toll-free [phone] ?? Online bill payment is available. For more information about this service, visit the [facility] website. ?? [email or web address] COVID-19 Information: https://www.bjc.org/coronavirus People at Risk for Serious Illness from COVID-19: https://www.cdc.gov/coronavirus/2019-ncov/specific -groups/fvqx-vtii-pzhktsdhdxqkg.html More Resources ??? World Health Organization (WHO): https://www.who.int/emergencies/diseases/uhuhf-aodckjfwomn-0548 ??? CDC What Do You Need to Know Factsheet: https://www.cdc.gov/coronavirus/2019-ncov/downloads/8729-fpkh-whnsmznen.pdf documented in this encounter Progress Notes * Magali Stapleton INTERNET RETAILER - 08/20/2019 10:45 AM CDT BMT Progress Note CLL (chronic lymphocytic leukemia) ([facility]) 07/03/2005 Initial Diagnosis Lymphoma, small lymphocytic; [...] then q2mo x 4; on clinical trial [facility] [id number] --> stable disease on CT; marrow 30-40% [...] IVIG today. Outpatient Encounter Medications as of 08/20/2019: ??? acyclovir (ZOVIRAX) 200 mg capsule, Take [...] facility-administered encounter medications on file as of 08/20/2019. Performance Status: 1 Objective Vitals: BP: 127/64 Temp: 36.7 ??C (98.1 ??F) Temp src: Oral Pulse: 70 Resp: 18 SpO2: 98 % Weight: 117.6 kg (259 lb 3.2 oz) Physical exam: In no acute distress HEENT:schlera white Lungs:CTA tawny Heart:RRR Abdomen:soft, non-tender Extremities:no edema Skin:no rash Neuro:no focal deficits Nodes: previously palpable sub-mental LAD is now resolved. Lab/Radiology/Diagnostic Review: CBC: Lab Results Component Value Date/Time WBC 17.3 (H) 08/20/2019 09:32 AM WBC 13.7 (H) 04/10/2019 03:03 PM HGB 13.9 08/20/2019 09:32 AM HGB 14.2 04/10/2019 03:03 PM HCT 41.0 08/20/2019 09:32 AM HCT 41.2 04/10/2019 03:03 PM LABPLAT 158 08/20/2019 09:32 AM LABPLAT 158 04/10/2019 03:03 PM NEUTROABS 3.7 08/20/2019 09:32 AM NEUTROABS 4,590 04/10/2019 03:03 PM CMP: Lab Results Component Value Date/Time SODIUM 138 08/20/2019 09:32 AM POTASSIUM 4.4 08/20/2019 09:32 AM CO2 29 08/20/2019 09:32 AM BUNSER 20 08/20/2019 09:32 AM GLUCOSE 102 08/20/2019 09:32 AM CREATININE 0.78 (L) 08/20/2019 09:32 AM CALCIUM 9.6 08/20/2019 09:32 AM CHLORIDE 99 08/20/2019 09:32 AM ALBUMIN 4.8 08/20/2019 09:32 AM AST 15 08/20/2019 09:32 AM ALT 17 08/20/2019 09:32 AM ALKPHOS 64 08/20/2019 09:32 AM BILITOT 0.8 08/20/2019 09:32 AM PROT 6.8 08/20/2019 09:32 AM ANIONGAP 10 08/20/2019 09:32 AM LDH: Lab Results Component Value Date/Time LDH 180 08/20/2019 09:32 AM Radiology None today Assessment and Plan: [...] the ibrutinib,including easy bruising and nail changes, otherwise doing well. He will get IVIG today ( number 3 today) ?? 2.?Recurrent sinus infections. 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 He is on ibrutinib and is doing well. ROV in 4 weeks with next IVIG documented in this encounter Plan of Treatment Not on file documented as of this encounter Results * (ABNORMAL) IgG (09/17/2019 8:27 AM CDT) Immunoglobulin G 658.0(L) 700.0 - 1,600.0 mg/dL [facility]STR[facility] Blood specimen (specimen) 09/17/2019 8:27 AM CDT 09/17/2019 8:38 AM CDT us Magali Stapleton INTERNET RETAILER LAB BLOOD ORDERABLES Final Res ult [facility] Department [place] [address] * Lactate dehydrogenase (LD) (09/17/2019 8:27 AM CDT) Pathologist [facility] Lactate dehydrogenase (LDH) 241 100 - 250 Units/L VANESSA CASTRO Comment:Testing performed by : [facility], [address] [place] [phone] Blood specimen (specimen) 09/17/2019 8:27 AM CDT 09/17/2019 8:28 AM CDT us Magali Stapleton INTERNET RETAILER LAB BLOOD ORDERABLES Final Res ult [facility] Department [place] [address] * (ABNORMAL) Comprehensive metabolic panel (09/17/2019 8:27 AM CDT) Sodium 135 135 - 145 mmol/L [facility] Comment:Testing performed by : [facility], [address] [place], [place] [phone] Potassium, pl 5.0(H) 3.3 - 4.9 mmol/L [facility] Comment:Testing performed by : [address] [address] Chloride 101 97 - 110 mmol/L [facility] Comment:Testing performed by : [facility], [address] [place] [phone] CO2 27 22 - 32 mmol/L [facility]ER[facility] Comment:Testing performed by : [address] [phone] Anion gap 7 2 - 15 mmol/L [facility] Comment:Testing performed by : [address] [address] BUN 24 8 - 25 mg/dL [facility] Comment:Testing performed by : [facility], [address] [place] [phone] Creatinine 0.77(L) 0.80 - 1.30 mg/dL [facility] Comment:Testing performed by : [address] [address] Glucose 105 70 - 199 mg/dL [facility] Comment: Interpretive Data Fasting glucose >/= [...] was last revised 2017. Testing performed by: [facility], [address] [place] [phone] Calcium 9.4 8.5 - 10.3 mg/dL [facility] Comment:Testing performed by : [facility], [address] [place] [phone] Bilirubin, total 0.6 0.1 - 1.2 mg/dL [facility]ER [facility] Comment:Testing performed by : [facility], [address] [place] [phone] Protein, pl 6.4(L) 6.5 - 8.5 g/dL [facility]ER [facility] Comment:Testing performed by : [address] [address] Albumin 4.5 3.5 - 5.0 g/dL [facility] Comment:Testing performed by : [facility], [address] [place] [phone] Alk phos 67 40 - 130 Units/L [facility] Comment:Testing performed by : [address] [phone] ALT 19 7 - 55 Units/L [facility] Comment:Testing performed by : [address] [address] AST 20 10 - 50 Units/L [facility] Comment:Testing performed by : [facility], [address] [place] [phone] Blood specimen (specimen) 09/17/2019 8:27 AM CDT 09/17/2019 8:28 AM CDT us Magali Stapleton INTERNET RETAILER LAB BLOOD ORDERABLES Final Res ult [facility] Department [place] [address] * (ABNORMAL) CBC with auto differential (09/17/2019 8:27 AM CDT) WBC 16.2(H) 3.8 - 9.8 K/cumm [facility]J Comment:Testing performed by : [facility], [address] [place], [place] [phone] Hgb 13.1(L) 13.8 - 17.2 g/dL [facility]J Comment:Testing performed by : [facility], [address] [place], [place] [phone] Hct 38.9(L) 40.7 - 50.3 % [facility] Comment:Testing performed by : [facility], [address] [place], [place] [phone] Plt 151 140 - 440 K/cumm [facility]ERGEOFF [facility]J Comment:Testing performed by : [place] [id number] MPV 10.7(H) 6.8 - 10.4 fL [facility] Comment:Testing performed by : [facility], [address] [place], [place] [phone] RBC 3.95(L) 4.50 - 5.70 M/cumm [facility] Comment:Testing performed by : [place] [id number] MCV 98.4(H) 80.0 - 97.6 fL [facility] Comment:Testing performed by : [place] [id number] MCH 33.3 26.7 - 33.7 pg [facility] Comment:Testing performed by : [place] [id number] MCHC 33.8 32.7 - 35.5 g/dL [facility] Comment:Testing performed by : [place] [id number] RDW CV 16.2(H) 11.8 - 14.6 % [facility] Comment:Testing performed by : [place] [id number] NRBC abs 0.02(H) 0.00 - 0.01 K/cumm [facility] CASTRO Comment:Testing performed by : [facility], [address] [facility] [phone] Blood specimen (specimen) 09/17/2019 8:27 AM CDT 09/17/2019 8:28 AM CDT us Magali SJulisa Tatamy INTERNET RETAILER LAB BLOOD ORDERABLES Final Res ult [facility] CASTRO [facility] Department [place] [address] * CT soft tissue neck with contrast [...] are normal. The limited view of the [place] is unremarkable. The visualized portions [...] are normal. The limited view of the [place] is unremarkable. The visualized portions [...] signed by: Giovani Rivera M.D. Magali Phelan Tatamy INTERNET RETAILER IMG CT PROCEDURES Final Result * CT [...] axis. Previously seen supraclavicular lymphadenopathy in the elreh-mq-tvtc of this examination is slightly improved. ??For [...] axis. Previously seen supraclavicular lymphadenopathy in the cmpol-va-keke of this examination is slightly improved. For [...] signed by: Raymond Thornton M.D. Magali Stapleton INTERNET RETAILER IMG CT PROCEDURES Final Result documented in this encounter Visit Diagnoses Diagnosis CLL (chronic lymphocytic leukemia) (HCC) Chronic lymphoid leukemia, without mention of having achieved remission CLL (chronic lymphocytic leukemia) (HCC) Chronic lymphoid leukemia, without mention of having achieved remission documented in this encounter Orders Appointment Requests Count Last Ordered Date Fi rst Ordered Date INFUSION APPT REQUEST 300 MIN 1 09/17/2019 ONCBCN CLINIC APPOINTMENT REQUEST 2 020 08/20/2019 ONCBCN LAB APPOINTMENT 1 09/17/2019 documented in this encounter Additional Health Concerns Infection Onset Date Last Indicated Resolved Time C. difficile Comment:Backloaded December 21, 2010 09/21/2010 09/21/2010 documented as of this encounter Care Teams Plant Maintenance Supervisor Relationship Specialty Start Date End Date Lenin Ventura MD [address] [address] PCP - General 07/06/16 Lenin Ventura MD [address] [address] 07/06/16 Burt Dos Santos MD PhD [address] [address] Medical Oncologist/Floor And Wall Applier Liquid Medical Oncology 06/16/19 documented as of this encounter
--- OUTSIDE RECORDS SUMMARY | 2024-02-22 08:32 | XMS_ITS | Encounter Summary ---
Author Organization [facility] Address [address] [place] [address] Phone Care Team Providers Care Pediatric Genetic Counselor Name Role Phone Lenin Ventura MD Primary Care Provider [phone] Lenin Ventura MD Unavailable Burt Dos Santos MD PhD Unavailable [phone]- [phone] Reason for Visit * Reason Comments OP Infusion * Episode Based Medications (Routine) - Authorized Specialty Diagnoses / Procedures Referred By Contac t Referred To Contact Diagnoses Hypogammaglobulinemia (HCC) Procedures PA GAMUNEX-C/GAMMAKED GAMUNEX Burt Dos Santos MD PhD [address] DIV IM BONE MARROW TRANSPLANT, [address] [place] [address] Phone: tel: fax: [facility] and [address] 7th [place] [address] Phone: tel: Referral ID Status Reason Start Date Expiration Date V isits Requested Visits Authorized [id number] Authorized 10/19/2019 08/02/2024 1 38 Encounter Details Date Type Department Care Team (Late st Contact Info) Description 08/20/2019 11:30 AM CDT Infusion [facility] [address] [place] [address] Medicine 7th [place] [address] CLL (chronic lymphocytic leukemia) (CMS/HCC) (Primary Dx); Hypogammaglobulinemia (CMS/HCC) Social History Tobacco Use Types Packs/Day Years Used Date Smoking Tobacco: Former Smokeless Tobacco: Never Alcohol Use Standard Drinks/Week Comments Not Currently 0 (1 standard drink = 0.6 oz pur e alcohol) Sex and Gender Information Value Date Recorded Sex Assigned at Not on file 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 No reactions noted. Patient has appointments and left ambulatory. documented in this encounter Plan of Treatment [...] mg 650 mg, oral, Once, On [place] 08/20/19 at 1130, For 1 dose, Please give 30 minutes prior to IVIG.Indications:Hypogamm aglobulinemia (HCC) Given 08/20/2019 10:50 AM CDT 650 mg diphenhydrAMINE (BENADRYL) tab/cap 25 mg 25 mg, oral, Once, On [place] 08/20/19 at 1130, For 1 dose, Give 30 minutes prior to IVIG.Indications:Hypogamm aglobulinemia (HCC) Given 08/20/2019 10:50 AM CDT 25 mg immune globulin (GAMUNEX-C,GAMMAKED) 10 % infusion 35 g 35 g (rounded from 34.72 g = 400 mg/kg ? 86.8 kg [place] weight), intravenous, Once, On [place] 08/20/19 at 1200, For 1 dose, GamuNEX C SUBSEQUENT Infusion, [...] (Rate = 417 mL/hr) , , , , , In accordance with Pharmacy IVIG Titrations Policy, Initiate Gamunex at 0.6 mL/kg/hr. If no reaction, may increase rate by 0.6 mL/kg/hr every 15 minutes, to a max of 4.8 mL/kg/hrIndications:Hypog ammaglobulinemia (HCC) Rate/Dose Change 08/20/2019 12:46 PM CDT 365 mL/hr Rate/Dose Change 08/20/2019 12:32 PM CDT 312 mL /hr Rate/Dose Change 08/20/2019 12:17 PM CDT 260 mL /hr documented in this encounter Orders Nursing Count Last Ordered Date First Orde red Date NURSING COMMUNICATION 1 08/20/2019 ONCBCN NURSING COMMUNICATION [id number] 2 0 08/20/2019 VITAL SIGNS INTRA-INFUSION 1 08/20/2019 Appointment Requests Count Last Ordered Date Fi rst Ordered Date INFUSION APPT REQUEST 300 MIN 2 08/20/2019 documented in this encounter Additional Health Concerns Infection Onset Date Last Indicated Resolved Time C. difficile Comment:Backloaded December 21, 2010 09/21/2010 09/21/2010 documented as of this encounter Care Teams Pediatric Genetic Counselor Relationship Specialty Start Date End Date Lenin Ventura MD [address] [address] PCP - General 07/06/16 Lenin Ventura MD [address] [address] 07/06/16 Burt Dos Santos MD PhD [address] [address] Medical Oncologist/Trust Mail Clerk Medical Oncology 06/16/19 documented as of this encounter
--- OUTSIDE RECORDS SUMMARY | 2024-02-22 08:32 | XMS_ITS | Encounter Summary ---
Author Organization [facility] Address [address] [place] [address] Phone Care Team Providers Care Boilermaker [employer] Name Role Phone Lenin Ventura MD Primary Care Provider [phone] Lenin Ventura MD Unavailable [phone] Burt Dos Santos MD PhD Unavailable [phone] Reason for Referral * Consultation (Routine) - Closed Specialty Diagnoses / Procedures Referred By Trent delgado Referred To Contact Allergy Diagnoses Acute recurrent pansinusitis Cass Olivia MD [address] [place] [address] Phone: tel: fax: [facility] (All Locations) Referral ID Status Reason Start Date Expiration Date V isits Requested Visits Authorized [id number] Closed Specialty Services Required 07/10/2019 01/18/2021 12 12 Question Answer Please select the performing region: [facility] (All Locations) [[id number]] # of visits: 1 Reason for Visit * Consultation (Routine) - Closed Specialty Diagnoses / Procedures Referred By Trent delgado Referred To Contact Otolaryngology Diagnoses Other sinusitis, unspecified chronicity Burt Dos Santos MD PhD Phone: tel: fax: Cass Olivia MD [address] [place] [address] Phone: tel: fax: Referral ID Status Reason Start Date Expiration Date V isits Requested Visits Authorized [id number] Closed Specialty Services Required 06/25/2019 01/03/2021 3 3 Encounter Details Date Type Department Care Team (Late st Contact Info) Description 07/10/2019 4:00 PM CDT Office Visit [facility] ENT [address] 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 Dos Santos. Chief Complaint: follow-up Interval: The patient returns for follow-up evaluation. Overall he reports to be doing well. He still reportssome tinnitus as well as nasal congestion. He does note that he believes he may have allergies to the cats that his daughter has at home. He reports resolution of previous headaches and much improvedoverall severity of symptoms. From previous: HPI: 68 year male was recently discharge from the hospital with extensive maxillary sinusitis progressing to bilateral mastoiditis. He underwent bilateral t-tube placement at the bedside with improvement in symptoms. Of note, he has a history of CLL and is immunosuppressed secondary to this. Since discharge from the hospital he reports improvement in symptoms and improvement in hearing. He has been using nasal irrigations with Mupirocin and Afrin in addition to Ciprodex drops. Past Medical/Surgical History Past Medical History: Diagnosis Date ??? Anxiety and depression ??? CLL (chronic lymphocytic leukemia) (CMS/HCC) ??? Thyroid nodule 06/12/2019 Past Surgical History: Procedure Laterality Date ??? BIOPSY LYMPH NODE SUPERFICIAL N/A 12/07/2014 ??? CERVICAL SPINE SURGERY [address] Shaquille King at [facility] ??? LAPAROSCOPIC CHOLECYSTECTOMY 2006 Dr. [facility]ley[facility] ??? LYMPH NODE BIOPSY 2006 Past Family/Social [...] on phone: None Gets together: None Attends adventism service: None Active member of club or [...] a day as needed for anxiety ??? cholecalciferol (cholecalciferol) 1000 unit tablet Take [...] 2 sprays into each nostril daily ??? magnesium oxide (MAG-OX) 250 mg (150.8 [...] auditory canal: normal Tympanic Membrane: T-Tube in place Middle ear: normal Left: External auditory canal: normal Tympanic Membrane: T-Tube in place Middle ear: normal EYES: EOM Intact, sclera [...] bilateral t-tubes and nasal irrigations with Mupirocin. I will have him see Dr. Hans Amaya to follow-up on any further treatment for his sinusdisease. With improved control of sinonasal disease I suspect we will be able to remove the bilateral t-tubes. He will not use any topical ear drops for now. He will continue sinus rinses with mupirocin until he sees Hans Amaya. I will also refer him to allergy for evaluation for allergy testing. Cass Olivia M.D. Otology and Neurotology Department of Otolaryngology [facility] in [email or web address] Office: Clinic: This note was created in part with the assistance of [employer] voice recognition software. Associate Professor Of Violin variances may occur. documented in this encounter Plan of Treatment Scheduled Referrals Name Type Priority Associated Diagnoses Orde r Schedule Ambulatory referral to Allergy Outpatient Referral Routine Acute recurrent pansinusitis Expected: 07/24/2019 (Approximate), Expires: 07/09/2020 documented as of this encounter Visit Diagnoses Diagnosis Acute recurrent pansinusitis- Primary Mixed hearing loss, bilateral Mastoiditis of both sides documented in this encounter Additional Health Concerns Infection Onset Date Last Indicated Resolved Time C. difficile Comment:Backloaded December 21, 2010 09/21/2010 09/21/2010 documented as of this encounter Care Teams [employer] Relationship Specialty Start Date End Date Lenin Ventura MD [email or web address] [address] PCP - General 07/06/16 Lenin Ventura MD [address] [address] 07/06/16 Burt Dos Santos MD PhD [address] [address] Medical Oncologist/Rock Contractor Medical Oncology 06/16/19 documented as of this encounter
--- OUTSIDE RECORDS SUMMARY | 2024-02-22 08:32 | XMS_ITS | Encounter Summary ---
Author Organization [facility] Address [address] [place] [address] Phone Care Team Providers Care Facing Slitter Name Role Phone Lenin Ventura MD Primary Care Provider [phone] Lenin Ventura MD Unavailable [phone] Burt Dos Santos MD PhD Unavailable [phone] Reason for Visit * Consultation (Routine) - Closed Specialty Diagnoses / Procedures Referred By Contac t Referred To Contact Allergy Diagnoses Acute recurrent pansinusitis Cass Olivia MD [address] [place] [address] Phone: tel: fax: [facility] (All Locations) Referral ID Status Reason Start Date Expiration Date V isits Requested Visits Authorized [id number] Closed Specialty Services Required 07/10/2019 01/18/2021 12 12 Encounter Details Date Type Department Care Team (Late st Contact Info) Description 07/31/2019 8:00 AM CDT Office Visit [facility] Allergy and Immunology [address] [facility] 12th [address] [place] [id number] Wood Zhang MD [address] [place] [address] Agammaglobulinemia (CMS/HCC) (Primary Dx); Acute recurrent pansinusitis Social History Tobacco Use Types Packs/Day Years Used Date Smoking Tobacco: Former Smokeless Tobacco: Never Alcohol Use Standard Drinks/Week Comments Not Currently 0 (1 standard drink = 0.6 oz pur e alcohol) Sex and Gender Information Value Date Recorded Sex Assigned at Not on file 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 Gender Identity Not on file Sexual Orientation Not on file documented as of this encounter Last Filed Vital Signs Vital Sign Reading Time Taken Comments Blood Pressure 144/80 07/31/2019 7:57 AM CDT Pulse 63 07/31/2019 7:57 AM CDT Temperature 36.8 ??C (98.3 ??F) 07/31/2019 7:57 AM CD T Respiratory Rate 18 07/31/2019 7:57 AM CDT Oxygen Saturation 97% 07/31/2019 7:57 AM CDT Inhaled Oxygen Concentration - - Weight 115.7 kg (255 lb) 07/31/2019 7:57 AM CDT Height 193 cm (6' 4 ) 07/31/2019 7:57 AM CDT Body Mass Index 31.04 07/31/2019 7:57 AM CDT documented in this encounter Progress Notes * Wood Zhang MD - 07/31/2019 8:00 AM CDT Jeff Abdullahi 1950 07/31/19 Chief Complaint: Continual sinus infections. History of Present Illness: Mr. Abdullahi is a 68 y.o. male with CLL on ibrutinib, GERD, and chronic sinusitis who is seen in consultation at the request of Dr. Olivia for evaluation of environmental aeroallergens contributingto his sinusitis. The patient denies having significant allergic rhinitis symptoms as a child or younger adult. He also denies having issues with recurrent sinusitis until last year. Review of his chart shows he has had intermittent issues as far back as 2014 that often required antibiotics and Flonase. However, over the past year he has had sinus infections that last for one to two months even with multiple rounds of antibiotics. He established with an ENT locally who performed a CT that revealed a nasal polyp.He thought surgical intervention may benefit him but then the COVID19 pandemic unfolded and he was unable to have surgery. He developed progressively worse symptoms of sinus pain and congestion but also developed symptoms of ear pain and tinnitus and then otorrhea. His symptoms did not improve withoral antibiotics as an outpatient and eventually he was admitted to [facility] on 06/12/2019 with sinusitisand mastoiditis. He was seen by ENT and ID. A nasal culture was positive for H influenzae and he was treated with appropriate antimicrobials. There was no evidence of fungal growth. During his admission he also had immunoglobulin levels checked that revealed agammaglobulinemia. He received one doseof IVIg on 06/13/2019 but he did not have antibody titers checked prior to administration. Additionally, ENT placed tubes in his ears with significant improvement in his symptoms. Since discharge he has continued to perform nasal saline rinses, use Flonase, and take Zyrtec. He was referred to see Dr. Amaya who performed a repeat CT that demonstrated near resolution of his sinusitis. 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 In his chart there are no pre-treatment immunoglobulin levels. In October 2015 he had an immunoglobulin profile with an IgG of 402 mg/dL and undetectable IgA and IgM. He denies a history of pneumonia although he was hospitalized in 2007 shortly after his first treatment for his SLL. He had an infiltrate on imaging but negative cultures and was discharged after two days in the ICU. Otherwise he denies meningitis or skin and soft tissue infections. He has had C diff secondary to antibiotics and ongoing issues with alternating diarrhea and constipation. He has been on ibrutinib since May 2018. He otherwise denies a history of asthma, atopic dermatitis, food allergies, or pneumonia. Past Medical History: Hypogammaglobulinemia - Diagnosed in 2015 - Immunoglobulin levels: 06/2019 IgG <300 mg/dL, IgM <25 mg/dL, IgA <50 mg/dL - Vaccine titers: Tetanus , Diphtheria , Strep pneumo not checked - Infections: H flu sinusitis/mastoiditis. Possible pneumonia in 2007 (culture negative). Chronic sinusitis. - Non-infectious complications (Autoimmune, Inflammatory, Malignancy): SLL - Imaging: CT C/A/P 10/[address] sinuses 06/2019 with hernandez sinusitis - Spirometry: No - Colonoscopy: 2016 with several polyps. Recommended repeat in 3 years - Immunoglobulin replacement therapy: First dose 06/13/2019 CLL Mastoiditis Allergies: Allergies Allergen Reactions ??? Cefuroxime Unknown Unclear history. Has tolerated Augmentin and Zosyn. ??? Codeine Stomach upset Medications: Current Outpatient Medications: ??? acyclovir (ZOVIRAX) 200 mg capsule, Take [...] daily, Disp: 30 g, Rfl: 3 ??? ranitidine (ZANTAC) 150 mg capsule, Take 150 mg by mouth daily , Disp: , Rfl: ??? zinc 50 mg tablet, Take 50 mg by mouth daily, Disp: 30 each, Rfl: 0 ??? oxyCODONE-acetaminophen (PERCOCET) 7.5-325 mg per tablet, Take 1 tablet by mouth every 6 (six) hours as needed for pain, Disp: , Rfl: ??? predniSONE (DELTASONE) 50 mg tablet, Take 50 mg by mouth daily, Disp: , Rfl: Family History: Family History Problem Relation Age of Onset ??? Heart disease Father ??? Hypertension Father ??? Diabetes Father ??? Glaucoma Father ??? Atrial fibrillation Father ??? Coronary artery disease Father ??? Macular degeneration Mother ??? Hypertension Mother ??? Anxiety disorder Mother ??? Depression Daughter ??? Depression Son ??? Anxiety disorder Daughter ??? Anxiety disorder Son ??? Colon cancer Other Social History: Socioeconomic History ??? Marital status: ??? Number of children: 3 Occupational History ??? 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 Smoking status: Former Smoker ??? Smokeless tobacco: Never Used Substance and Sexual Activity ??? Alcohol use: Not Currently ??? Drug use: Never Environmental History: The [place] [facility] [place] and he has lived there for four years. Five people live in the home. There is a basement with occasional water damage. There are no smokers in the home. There is central air conditioning and gas forced air heating. There is no fireplace or wood burning stove. The home is vacuumed. There is no air purification system but there are pillow and mattress dust proof covers. There is no humidifier. There are three cats and one dog in the home. Fabric softeners are not used. There are two plants in the home. There is carpeting in the bedroom and wall to wall carpeting. His pillows are synthetic and less than one year old. His bedding is cotton. Review of Systems: Except for the HPI, all other review of systems reviewed and negative. Physical Exam: Vitals BP 144/80 Pulse 63 Temp 36.8 ??C (98.3 ??F) Resp 18 Ht 193 cm (6' 4 ) Wt 115.7 kg (255 lb) SpO2 97% BMI 31.04 kg/m?? General: Well-developed, well-nourished male resting comfortably in no acute distress. HEENT: Head: Normocephalic, atraumatic. Eyes: Pupils equal round reactive to light and accomodation. Extraocular movements intact. No conjunctival injection. Ears: Tympanic membranes with tubes in place. Nose: No nasal sinus tenderness. Patent nares with pink mucosa. Oropharynx: Clear. Neck: No lymphadenopathy. Lungs: Clear to auscultation without wheezing, rhonchi, rales. Cardiovascular: Regular rate and rhythm without rubs, murmurs, gallops. Abdomen: Soft, non-tender, non-distended, positive bowel sounds. Extremities: No clubbing, cyanosis, edema. Skin: No rashes or hives. Diagnostics: Test Information Allergen trash collector supervisor: Dudley Method: Epicutaneous Location: Back Testing Nurse/MA: [email or web address] Reviewing Physician: [email or web address] Panel 1: Trees Histamine (W/F millimeters): 13/30x15 White Jax (W/F in millimeters): neg Birch Mix (W/F in millimeters): neg Elm Mix (W/F in Millimeters): neg Maple, Red ( W/F in millimeters): neg [place] Mix (W/F in millimeters): neg Black [place] (W/F in millimeters): neg Black [place] (W/F in millimeters): neg Panel 2: Grasses Saline (W/F millimeters): neg Bermuda (W/F in millimeters): neg [place] (W/F in millimeters): neg Brome Grass (W/F in millimeters): neg [place] Fescue (W/F in millimeters): neg Jose (W/F in millimeters): neg [place] Grass (W/F in millimeters): neg Zia (W/F in millimeters): neg Panel 3: Weeds Histamine (W/F millimeters): 11/20x20 Cockelbur (W/F in millimeters): neg Metzger's Quarter (W/F in millimeters): neg Marshelder, True (W/F in millimeters): neg Pigweed Spiny (W/F in millimeters): neg Belarusian Plantain (W/F in millimeters): neg Ragweed Mix (W/F in millimeters): neg Greek Thistle (W/F in millimeters): neg Panel 4: Molds I Saline (W/F millimeters): neg Alternaria Alternata (W/F in millimeters): neg Aspergillus (W/F in millimeters): neg Aspergillus Fumigatus (W/F in millimeters): neg Cladosporium (W/F in millimeters): neg Curvularia (W/F in millimeters): neg Epicoccum (W/F in millimeters): neg Fusarium (W/F in millimeters): neg Panel 5: Molds II Histamine (W/F millimeters): neg Geotrichum C. (W/F in millimeters): neg Helminthosporium (W/F in millimeters): neg Hormodendrum h. (W/F in millermeters): neg Penicillium (W/F in millimeters): neg Phoma Beta (W/F in millimeters): neg Rhizopus N. (W/F in millimeters): neg Rhodotorula R. (W/F in millemiters): neg Panel 6: Molds III Saline (W/F millimeters): neg Spondylocladium (W/F in millimetters): neg Stemphylium (W/F in millileters): neg Avis albicans (W/F in millimeters): neg [place] smut (W/F in millimeters): neg Jose smut (W/F in millimeters): neg Wheat smut (W/F in millimeters): neg Trichophyton (W/F in millimeters): neg Panel 7: Dander Saline (W/F millimeters): neg Cat Epithelium (W/F in millimeters): neg Mouse (W/F in Millimeters): neg Dog AP* (W/F in millimeters): neg D. Pteronyssinus (W/F in millimeters): neg D. Farinae (W/F in millimeters): neg Cockroach Mix (W/F in millimeters): neg Histamine (W/F millimeters): 9/10x15 Skin prick testing was performed with a positive histamine and negative saline control. Epicutaneous testing was negative. IgE, lymphocyte subpopulation, B cell phenotyping, CBC ordered and patient can have drawn when he gets additional labs from Dr. Dos Santos Medical Decision Making: Assessment/Plan: Mr. Abdullahi is a 68 y.o. male with SLL on ibrutinib and GERD who presents for evaluation of recurring sinus infections. 1. Chronic sinusitis: He has no evidence of sensitization on testing today although he has found improvement in his symptoms with Flonase and saline rinses so he may have a component of non-allergic rhinitis. I suspect the reason he has had significant issues with sinusitis is due to an immunodeficiency. Whether it is secondary to prior treatment with rituximab and current treatment with ibrutinib or evidence of an antibody deficiency like CVID, he has agammaglobulinemia with clinical evidence of sinopulmonary infections. I agree that he warrants immunoglobulin replacement therapy. The fact that he had agammaglobulinemia may speak more to an underlying immunodeficiency rather than an adverse effect of his cancer treatments. I have recommended he obtain some labs when he next gets lab workwith Dr. Dos Santos. I will check an IgE to see if this is consistent with his skin testing. Additionally, I will check enumeration studies to determine if he has evidence of a combined defect. Ideallyhe would have had antibody titers checked prior to IVIg as now such testing is useless. He should receive vaccination for Strep pneumo if he has not previously had his age appropriate vaccination. Hecan continue to perform saline rinses and use Flonase. He can decide if Zyrtec is helpful or not. Based on his testing I do not think he requires it. I discussed targeted genetic sequencing for primary immunodeficiency but he was not interested at this time. He will return to the clinic or for a telehealth visit in 4-6 months if he has further questions regarding [facility] use of immunoglobulin replacement therapy. documented in this encounter Plan of Treatment Not on file documented as of this encounter Procedures Procedure Name Priority Date/Time Associated Diagnosis Comments ALLERGY SKIN TESTS ALLERGENS, EACH Routine 07/31/2019 Acute recurrent pansinusitis documented in this encounter Results * Allergy skin tests allergens, each (07/31/2019) us Wood Zhang MD IN CLINIC/BEDSIDE ORD ERABLES Final Result documented in this encounter Visit Diagnoses Diagnosis Agammaglobulinemia (HCC)- Primary Unspecified hypogammaglobulinemia Acute recurrent pansinusitis documented in this encounter Orders Outpatient Referral Count Last Ordered Date Fir st Ordered Date AMB REFERRAL TO ALLERGY 1 07/31/2019 documented in this encounter Additional Health Concerns Infection Onset Date Last Indicated Resolved Time C. difficile Comment:Backloaded December 21, 2010 09/21/2010 09/21/2010 documented as of this encounter Care Teams Facing Slitter Relationship Specialty Start Date End Date Lenin Ventura MD [address] [place] [address] PCP - General 07/06/16 Lenin Ventura MD [address] [place] [address] 07/06/16 Burt Dos Santos MD PhD [email or web address] [address] Medical Oncologist/Liquid Loader Medical Oncology 06/16/19 documented as of this encounter
--- OUTSIDE RECORDS SUMMARY | 2024-02-22 08:32 | XMS_ITS | Encounter Summary ---
Author Organization [facility] Address [address] [place] [address] Phone Care Team Providers Care Poultry Debeaker Name Role Phone Lenin Ventura MD Primary Care Provider [phone] Lenin Ventura MD Unavailable [phone] Burt Dos Santos MD PhD Unavailable [phone] Encounter Details Date Type Department Care Team (Late st Contact Info) Description 06/16/2019 Telephone [facility] Otolaryngology [address] [facility] [address] [place] [id number] Lourdes Tyson CMA Social History Tobacco Use Types Packs/Day Years Used Date Smoking Tobacco: Former Smokeless Tobacco: Never Alcohol Use Standard Drinks/Week Comments Not Currently 0 (1 standard drink = 0.6 oz pur e alcohol) Sex and Gender Information Value Date Recorded Sex Assigned at Not on file 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 difficile Comment:Backloaded December 21, 2010 09/21/2010 09/21/2010 documented as of this encounter Care Teams Poultry Debeaker Relationship Specialty Start Date End Date Lenin Ventura MD [address] [address] PCP - General 07/06/16 Lenin Ventura MD [address] [address] 07/06/16 Burt Dos Santos MD PhD [address] [address] Medical Oncologist/Paying Teller Medical Oncology 06/16/19 documented as of this encounter
--- OUTSIDE RECORDS SUMMARY | 2024-02-22 08:32 | XMS_ITS | Encounter Summary ---
Author Organization [facility] Address [address] [place] [address] Phone Care Team Providers Care Timber Bucker Name Role Phone Lenin Ventura MD Primary Care Provider [phone] Lenin Ventura MD Unavailable [phone] Burt Dos Santos MD PhD Unavailable [phone]- [phone] Encounter Details Date Type Department Care Team (Late st Contact Info) Description 06/25/2019 10:00 AM CDT Lab [facility] [address] [place] [address] CLL (chronic lymphocytic leukemia) (CMS/HCC) Social History Tobacco Use Types Packs/Day Years Used Date Smoking Tobacco: Former Smokeless Tobacco: Never Alcohol Use Standard Drinks/Week Comments Not Currently 0 (1 standard drink = 0.6 oz pur e alcohol) Sex and Gender Information Value Date Recorded Sex Assigned at Not on file Legal Sex Male 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 Gender Identity Not on file Sexual Orientation Not on file documented as of this encounter Plan of Treatment Not on file documented as of this encounter Procedures Procedure Name Priority Date/Time Associated Diagnosis Comments MORPHOLOGIC SCREEN STAT 06/25/2019 10 :09 AM CDT CLL (chronic lymphocytic leukemia) (CMS/HCC) DIFFERENTIAL AUTO STAT 06/25/2019 10: 09 AM CDT CLL (chronic lymphocytic leukemia) (CMS/HCC) CBC WITH AUTO DIFFERENTIAL STAT 06/25/2019 10:09 AM CDT CLL (chronic lymphocytic leukemia) (CMS/HCC) LACTATE DEHYDROGENASE STAT 06/25/2019 10:09 AM CDT CLL (chronic lymphocytic leukemia) (CMS/HCC) COMPREHENSIVE METABOLIC PANEL STAT 06/25/2019 10:09 AM CDT CLL (chronic lymphocytic leukemia) (CMS/HCC) TYPE AND SCREEN STAT 06/25/2019 10:09 AM CDT CLL (chronic lymphocytic leukemia) (CMS/HCC) documented in this encounter Results * Morphologic screen (06/25/2019 10:09 AM CDT) [facility] Morphologic Screen Original results obtained required verification by peripheral smear. [facility] Observation Variant lymphocytes noted on screening [facility] Blood specimen (specimen) 06/25/2019 10:09 AM CDT 06/25/2019 10:11 AM CDT Burt Dos Santos MD PhD LAB BLOOD ORDERABLES Final Result [facility] [address] Department of Laboratories [place], [place] [id number] * (ABNORMAL) Differential, auto (06/25/2019 10:09 AM CDT) [facility] Neutrophil abs 4.0 1.8 - 6.6 K/cumm [facility] Comment:Testing performed by : [facility], [address] [place] [phone] Lymphocyte abs 16.3(H) 1.2 - 3.3 K/cumm [facility] Comment:Testing performed by : [facility], [address] [place] [phone] Monocyte abs 0.8 0.2 - 1.2 K/cumm [facility] Comment:Testing performed by : [facility], [address] [place] [phone] Eosinophil abs 0.1 0.0 - 0.5 K/cumm [facility] Comment:Testing performed by : [facility], [address] [place] [phone] Basophil abs 0.1 0.0 - 0.2 K/cumm [facility] Comment:Testing performed by : [facility], [address] [place] [phone] Neutrophil pct 18.7 % [facility] Comment: Interpretive Data Percent cell count reference ranges are not reported, since discordance with absolute values may lead to misinterpretation of CBC data. Current Interpretive Data was last revised on 2017. Testing performed by: [facility], [address] [place] [phone] Lymphocyte pct 76.6 % [facility] Comment: Interpretive Data Percent cell count reference ranges are not reported, since discordance with absolute values may lead to misinterpretation of CBC data. Current Interpretive Data was last revised on 2017. Testing performed by: [facility], [address] [place] [phone] Monocyte pct 3.7 % [facility] Comment:Testing performed by : [facility], [address] [place] [phone] Eosinophil pct 0.4 % [facility] Comment:Testing performed by : [facility], [address] [place] [phone] Basophil pct 0.6 % [facility] Comment:Testing performed by : [facility], [address] [place] [phone] Blood specimen (specimen) 06/25/2019 10:09 AM CDT 06/25/2019 10:11 AM CDT us Burt Dos Santos MD PhD LAB BLOOD ORDERABLES Final Result [facility] [address] [facility] [address] Department [place] [address] * Comprehensive metabolic panel (06/25/2019 10:09 AM CDT) Sodium 140 135 - 145 mmol/L [facility] Comment:Testing performed by : [facility], [address] [place] [phone] Potassium, pl 4.8 3.3 - 4.9 mmol/L [facility] Comment:Testing performed by : [facility], [address] [place] [phone] Chloride 101 97 - 110 mmol/L [facility] Comment:Testing performed by : [facility], [address] [place] [phone] CO2 30 22 - 32 mmol/L [facility] Comment:Testing performed by : [facility], [address] [place] [phone] Anion gap 9 2 - 15 mmol/L [facility] Comment:Testing performed by : [facility], [address] [place] [phone] BUN 24 8 - 25 mg/dL [facility] Comment:Testing performed by : [facility], [address] [place] [phone] Creatinine 0.84 0.80 - 1.30 mg/dL [facility] Comment:Testing performed by : [facility], [address] [place] [phone] Glucose 83 70 - 199 mg/dL [facility] Comment: [...] was last revised 2017. Testing performed by: [facility], [address] [place] [phone] Calcium 9.3 8.5 - 10.3 mg/dL [facility] Comment:Testing performed by : [facility], [address] [place] [phone] Bilirubin, total 0.4 0.1 - 1.2 mg/dL [facility] Comment:Testing performed by : [facility], [address] [place], [place] [phone] Protein, pl 6.7 6.5 - 8.5 g/dL [facility] Comment:Testing performed by : [facility], [address] [place] [address] Albumin 4.3 3.5 - 5.0 g/dL [facility] Comment:Testing performed by : [facility], [address] [place] [phone] Alk phos 85 40 - 130 Units/L [facility] Comment:Testing performed by : [facility], [address] [place] [phone] ALT 18 7 - 55 Units/L [facility] Comment:Testing performed by : [facility], [address] [place] [phone] AST 15 10 - 50 Units/L [facility] Comment:Testing performed by : [facility], [address] [place] [phone] Blood specimen (specimen) 06/25/2019 10:09 AM CDT 06/25/2019 10:11 AM CDT Burt Dos Santos MD PhD LAB BLOOD ORDERABLES Final Result Performing Organization Address City/[facility] Co de Phone Number [facility] [place] [address] * Lactate dehydrogenase (LD) (06/25/2019 10:09 AM CDT) Lactate dehydrogenase (LDH) 186 100 - 250 Units/L [facility] Comment:Testing performed by : [facility], [address] [place] [phone] Blood specimen (specimen) 06/25/2019 10:09 AM CDT 06/25/2019 10:11 AM CDT Burt Dos Santos MD PhD LAB BLOOD ORDERABLES Final Result Performing Organization Address [facility]/ZIP Co de Phone Number [facility] [place] [address] * (ABNORMAL) CBC with auto differential (06/25/2019 10:09 AM CDT) WBC 21.2(H) 3.8 - 9.8 K/cumm [facility] Comment:Testing performed by : [facility], [address] [place], [place] [phone] Hgb 13.4(L) 13.8 - 17.2 g/dL [facility] Comment:Testing performed by : [facility], [address] [place], [place] [phone] Hct 40.0(L) 40.7 - 50.3 % [facility] Comment:Testing performed by : [place] [phone] Plt 215 140 - 440 K/cumm [facility] Comment:Testing performed by : [place] [phone] MPV 9.8 6.8 - 10.4 fL [facility] Comment:Testing performed by : [facility], [address] [place] [address] RBC 4.12(L) 4.50 - 5.70 M/cumm [facility] Comment:Testing performed by : [place] [address] MCV 97.1 80.0 - 97.6 fL [facility] Comment:Testing performed by : [place] [phone] MCH 32.5 26.7 - 33.7 pg [facility] Comment:Testing performed by : [place] [phone] MCHC 33.5 32.7 - 35.5 g/dL [facility] Comment:Testing performed by : [place] [phone] RDW CV 17.0(H) 11.8 - 14.6 % [facility] Comment:Testing performed by : [place] [phone] NRBC abs 0.03(H) 0.00 - 0.01 K/cumm [facility] Comment:Testing performed by : [facility], [facility] [phone] Blood specimen (specimen) 06/25/2019 10:09 AM CDT 06/25/2019 10:11 AM CDT Burt Dos Santos MD PhD LAB BLOOD ORDERABLES Final Result Performing Organization Address City/[facility] Co de Phone Number [facility] Department [place] [address] * Type and screen (06/25/2019 10:09 AM CDT) ABO Rh O Positive [facility] Calin, indirect Negative [facility] Blood specimen (specimen) 06/25/2019 10:09 AM CDT 06/25/2019 10:41 AM CDT Narrative [facility] - 06/25/2019 11:30 AM CDT Has the patient had Daratumumab (Darzalex) in the past 6 months?->Unknown Burt Dos Santos MD PhD LAB BLOOD BANK TEST ORDERABLES Final Result Performing Organization Address [facility] Co de Phone Number [facility] Department [place] [address] documented in this encounter Visit Diagnoses Diagnosis CLL (chronic lymphocytic leukemia) (HCC) Chronic lymphoid leukemia, without mention of having achieved remission documented in this encounter Orders Appointment Requests Count Last Ordered Date Fi rst Ordered Date ONCBCN LAB APPOINTMENT 1 06/25/2019 documented in this encounter Additional Health Concerns Infection Onset Date Last Indicated Resolved Time C. difficile Comment:Backloaded December 21, 2010 09/21/2010 09/21/2010 documented as of this encounter Care Teams Timber Bucker Relationship Specialty Start Date End Date Lenin Ventura MD [address] [address] PCP - General 07/06/16 Lenin Ventura MD [address] [address] 07/06/16 Burt Dos Santos MD PhD [facility] [address] [address] Medical Oncologist/Datacap Developer Medical Oncology 06/16/19 documented as of this encounter
--- OUTSIDE RECORDS SUMMARY | 2024-02-22 08:32 | XMS_ITS | Encounter Summary ---
Author Organization [facility] Address [address] [place] [address] Phone Care Team Providers Care Dock Worker Name Role Phone Lenin Ventura MD Primary Care Provider [phone] Lenin Ventura MD Unavailable [phone] Burt Dos Santos MD PhD Unavailable [phone] Encounter Details Date Type Department Care Team (Late st Contact Info) Description 06/19/2019 12:00 PM CDT Telemedicine [facility] ENT [address] [facility] Medical Office [address] [place] [address] Cass Olivia MD [address] [place], [place] [id number] Acute recurrent pansinusitis (Primary Dx); Mastoiditis of both sides Social History Tobacco Use Types Packs/Day Years Used Date Smoking Tobacco: Former Smokeless Tobacco: Never Alcohol Use Standard Drinks/Week Comments Not Currently 0 (1 standard drink = 0.6 oz pur e alcohol) Sex and Gender Information Value Date Recorded Sex Assigned at Not on file 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 During the visit, I was located [facility] office and the patient was located home. The session started at 11:57 and ended at 12:08. The patient has been informed that the visit may not be secure and acknowledged the information. I have explained the option of participating in a telephone or video visit during the COVID-19 public health emergency to the patient. After being given an opportunity to ask questions about and discuss this type of visit, the patient verbally consented to proceeding with the telephone / video visit. The patient understands that this service replaces an office visit and they may be billed and/or responsible for any applicable copayments. CC: ear infenction HPI: 68 year male was recently discharge [...] and Afrin in addition to Ciprodex drops. 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 He will continue nasal irrigations with Mupirocin for the next 3 weeks and topical Ciprodex for one more week. I sent him additional Mupirocin to his pharmacy. He will stop Afrin nasal spray. He will call if symptoms worsen. I will plan to see him when COVID risk decreases with audiometric evaluation. Cass Olivia M.D. Otology and Neurotology Department of Otolaryngology [facility] [place] [email or web address] Office: Clinic: documented in this encounter Plan of Treatment Not on file documented as of this encounter Visit Diagnoses Diagnosis Acute recurrent pansinusitis- Primary Mastoiditis of both sides documented in this encounter Additional Health Concerns Infection Onset Date Last Indicated Resolved Time C. difficile Comment:Backloaded December 21, 2010 09/21/2010 09/21/2010 documented as of this encounter Care Teams Dock Worker Relationship Specialty Start Date End Date Lenin Ventura MD [address] [place] [address] PCP - General 07/06/16 Lenin Ventura MD [address] [address] 07/06/16 Burt Dos Santos MD PhD [address] [place] [phone] Medical Oncologist/Endoscopy Technican Medical Oncology 06/16/19 documented as of this encounter
--- OUTSIDE RECORDS SUMMARY | 2024-02-22 08:33 | XMS_ITS | Encounter Summary ---
Author Organization [facility] Address [address] [place] [address] Phone Care Team Providers Care Mobile Marketing Specialist Name Role Phone Lenin Ventura MD Primary Care Provider [phone] Lenin Ventura MD Unavailable [phone] Encounter Details Date Type Department Care Team (Late st Contact Info) Description 05/19/2018 Orders Only [facility] Bone Marrow Transplant [address] [facility] 7th Floor, [place] [address] Sandra Lopez RMA CLL (chronic lymphocytic leukemia) (CMS/HCC) (Primary Dx) Social History Tobacco Use Types Packs/Day Years Used Date Smoking Tobacco: Former Smokeless Tobacco: Never Sex and Gender Information Value Date Recorded Sex Assigned at Not on file 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 Sex Male 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 Gender Identity Not on file Sexual Orientation Not on file documented as of this encounter Ordered Prescriptions Prescription Sig Dispense Quantity Refills Last Filled Start Date End Date ibrutinib (IMBRUVICA) 420 mg tabletIndications: CLL (chronic lymphocytic leukemia) (HCC) Take 1 tablet (420 mg total) by mouth daily 28 tablet 3 05/19/2018 09/11/2018 documented in this encounter Plan of Treatment Not on file documented as of this encounter Visit Diagnoses Diagnosis CLL (chronic lymphocytic leukemia) (HCC)- Primary Chronic lymphoid leukemia, without mention of having achieved remission documented in this encounter Additional Health Concerns Infection Onset Date Last Indicated Resolved Time C. difficile Comment:Backloaded December 21, 2010 09/21/2010 09/21/2010 documented as of this encounter Care Teams Mobile Marketing Specialist Relationship Specialty Start Date End Date Lenin Ventura MD [address] [address] PCP - General 07/06/16 Lenin Ventura MD [address] [address] 07/06/16 documented as of this encounter
--- OUTSIDE RECORDS SUMMARY | 2024-02-22 08:33 | XMS_ITS | Encounter Summary ---
Author Organization [facility] Address [address] [place] [address] Phone Care Team Providers Care Customer Service Technician Name Role Phone Lenin Ventura MD Primary Care Provider [phone] [phone] Lenin Ventura MD Unavailable [phone] Encounter Details Date Type Department Care Team (Late st Contact Info) Description 01/16/2019 Documentation [facility]row Transplant [address] [facility] 7th Floor, [place] [address] Jsoie Mejia, ALICIA Social History Tobacco Use Types Packs/Day Years Used Date Smoking Tobacco: Former Smokeless Tobacco: Never Sex and Gender Information Value Date Recorded Sex Assigned at Not on file 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 Dos Santos. He is doing well on ibruvica and received flu vaccine while in clinic. ROV in three months for routine follow-up. ING MANAGER documented in this encounter Plan of Treatment Not on file documented as of this encounter Visit Diagnoses Not on filedocumented in this encounter Additional Health Concerns Infection Onset Date Last Indicated Resolved Time C. difficile Comment:Backloaded December 21, 2010 09/21/2010 09/21/2010 documented as of this encounter Care Teams Customer Service Technician Relationship Specialty Start Date End Date Lenin Ventura MD [address] [address] PCP - General 07/06/16 Lenin Ventura MD [address] [address] 07/06/16 documented as of this encounter
--- OUTSIDE RECORDS SUMMARY | 2024-02-22 08:33 | XMS_ITS | Encounter Summary ---
Author Organization [facility] Address [address] [place] [address] Phone Care Team Providers Care Hybrid Powertrain Development Engineer Name Role Phone Lenin Ventura MD Primary Care Provider [phone] Lenin Ventura MD Unavailable [phone] Encounter Details Date Type Department Care Team (Latest Contact Info) Description 04/10/2018 9:45 AM BREAKFAST HOST Clinical Support [facility] On[facility] 7th [place] [address] [place] [id number] Burt Dos Santos MD PhD [address] DIV IM [employer]ONE [employer], [address] [place] [address] Lymphoma, small lymphocytic (CMS/HCC) Discharge Disposition: Discharge to home or self care Social History Tobacco Use Types Packs/Day Years Used Date Smoking Tobacco: Former Smokeless Tobacco: Never Sex and Gender Information Value Date Recorded Sex Assigned at Not on file Legal Sex Male 9:45 AM BREAKFAST HOST Gender Identity Not on file Sexual Orientation Not on file documented as of this encounter Discharge Disposition Disposition Code Departure Means Destination Discharge to home or self care documented in this encounter Plan of Treatment Not on file documented as of this encounter Procedures Procedure Name Priority Date/Time Associated Diagnosis Comments CBC WITH AUTO DIFFERENTIAL Routine 04/10/2018 9:39 AM BREAKFAST HOST Lymphoma, small lymphocytic (CMS/HCC) MANUAL DIFFERENTIAL Routine 04/10/2018 9 :39 AM BREAKFAST HOST Lymphoma, small lymphocytic (CMS/HCC) LACTATE DEHYDROGENASE Routine 04/10/2018 9:39 AM BREAKFAST HOST Lymphoma, small lymphocytic (CMS/HCC) BETA 2 MICROGLOBULIN SERUM Routine 04/10/2018 9:39 AM BREAKFAST HOST Lymphoma, small lymphocytic (CMS/HCC) COMPREHENSIVE METABOLIC PANEL Routine 04/10/2018 9:39 AM BREAKFAST HOST Lymphoma, small lymphocytic (CMS/HCC) documented in this encounter Results * (ABNORMAL) Manual Differential (04/10/2018 9:39 AM BREAKFAST HOST) Differential Manual [facility] Cells Counted 100 [facility] Neutrophil abs 3.1 1.7 - 6.5 K/cumm [facility] Imm gran abs 0.1 0.0 - 0.1 K/cumm [facility] Lymphocyte abs 5.8(H) 0.8 - 3.3 K/cumm [facility] Monocyte abs 0.9(H) 0.2 - 0.8 K/cumm [facility] Eosinophil abs 0.1 0.0 - 0.5 K/cumm [facility] Neutrophil pct 31.0 % [facility] Lymphocyte pct 58.0 % [facility] Monocyte pct 9.0 % [facility] Eosinophil pct 1.0 % [facility] Band Neutrophil pct 0.0 0.0 - 6.0 % [facility] Metamyelocyte pct 0.0 0.0 - 0.0 % [facility] Myelocyte pct 1.0(H) 0.0 - 0.0 % [facility] Promyelocyte pct 0.0 0.0 - 0.0 % [facility] Variant lymph pct 0.0 0.0 - 0.0 % [facility] Anisocytosis Slight None Seen [facility] Platelet morphology Few Enlarged(A) [facility] Platelet estimate Adequate Adequate [facility] Blood specimen (specimen) 04/10/2018 9:39 AM BREAKFAST HOST 04/10/2018 9:41 AM BREAKFAST HOST Narrative [facility] - 04/10/2018 10:11 AM BREAKFAST HOST Burt Dos Santos MD PhD LAB BLOOD ORDERABLES Final Result [facility] Department [place] [address] * (ABNORMAL) CBC with auto differential (04/10/2018 9:39 AM BREAKFAST HOST) WBC 10.0(H) 3.8 - 9.8 K/cumm [facility] Comment:Testing performed by : [facility], [address] [place] [phone] Hgb 12.8(L) 13.8 - 17.2 g/dL [facility] Comment:Testing performed by : [address] [address] Hct 37.7(L) 40.7 - 50.3 % [facility] Comment:Testing performed by : [address] [phone] Plt 183 140 - 440 K/cumm [facility] CASTRO Comment:Testing performed by : [address] [phone] MPV 9.2 6.8 - 10.4 fL [facility] Comment:Testing performed by : [address] [address] RBC 3.95(L) 4.50 - 5.70 M/cumm [facility] Comment:Testing performed by : [address] [address] MCV 95.3 80.0 - 97.6 fL [facility] Comment:Testing performed by : [address] [address] MCH 32.3 26.7 - 33.7 pg [facility] Comment:Testing performed by : [address] [address] MCHC 33.9 32.7 - 35.5 g/dL [facility] Comment:Testing performed by : [address] [address] RDW CV 14.6 11.8 - 14.6 % [facility] Comment:Testing performed by : [facility], [address] [facility] [address] NRBC abs 0.01 0.00 - 0.01 K/cumm [facility] Comment:Testing performed by : [facility], [address] [facility] [address] Blood specimen (specimen) 04/10/2018 9:39 AM BREAKFAST HOST 04/10/2018 9:41 AM BREAKFAST HOST Narrative [facility] - 04/10/2018 9:45 AM BREAKFAST HOST Burt Dos Santos MD PhD LAB BLOOD ORDERABLES Final Result Performing Organization Address [facility] Co de Phone Number [facility] Department [place] [address] * (ABNORMAL) Beta 2 microglobulin, serum (04/10/2018 9:39 AM BREAKFAST HOST) Beta 2 Microglobulin, Serum 3.70(H) 1.00 - 2.50 mg/L [facility] Blood specimen (specimen) 04/10/2018 9:39 AM BREAKFAST HOST 04/10/2018 10:10 AM BREAKFAST HOST Narrative [facility] - 04/10/2018 10:49 AM BREAKFAST HOST Burt Dos Santos MD PhD LAB BLOOD ORDERABLES Final Result Performing Organization Address [facility] Co de Phone Number [facility] Department [place] [address] * (ABNORMAL) Lactate dehydrogenase (LD) (04/10/2018 9:39 AM BREAKFAST HOST) Lactate dehydrogenase (LDH) 305(H) 100 - 250 Units/L [facility] Blood specimen (specimen) 04/10/2018 9:39 AM BREAKFAST HOST 04/10/2018 10:10 AM BREAKFAST HOST Narrative [facility] - 04/10/2018 10:50 AM BREAKFAST HOST Burt Dos Santos MD PhD LAB BLOOD ORDERABLES Final Result [facility] Department [place] [address] * (ABNORMAL) Comprehensive metabolic panel (04/10/2018 9:39 AM BREAKFAST HOST) Sodium 137 135 - 145 mmol/L [facility] Potassium, pl 5.0(H) 3.3 - 4.9 mmol/L [facility] Chloride 103 97 - 110 mmol/L [facility] CO2 27 22 - 32 mmol/L [facility] Anion gap 7 2 - 15 mmol/L [facility] BUN 18 8 - 25 mg/dL [facility] Creatinine 1.07 0.80 - 1.30 mg/dL [facility] Glucose 153 70 - 199 mg/dL [facility] Comment: Interpretive Data Fasting glucose >/= [...] Current interpretive data was last revised 2017. Calcium 9.0 8.5 - 10.3 mg/dL [facility] Bilirubin, total 0.4 0.1 - 1.2 mg/dL [facility] Protein, pl 6.0(L) 6.5 - 8.5 g/dL [facility] Albumin 3.9 3.5 - 5.0 g/dL [facility] Alk phos 90 40 - 130 Units/L [facility] ALT 27 7 - 55 Units/L [facility] AST 32 10 - 50 Units/L [facility] Blood specimen (specimen) 04/10/2018 9:39 AM BREAKFAST HOST 04/10/2018 10:10 AM BREAKFAST HOST Narrative [facility] - 04/10/2018 10:50 AM BREAKFAST HOST Burt Dos Santos MD PhD LAB BLOOD ORDERABLES Final Result [facility] Department [place] [address] documented in this encounter Visit Diagnoses Diagnosis Lymphoma, small lymphocytic (HCC) Lymphosarcoma, unspecified site, extranodal and solid organ sites documented in this encounter Additional Health Concerns Infection Onset Date Last Indicated Resolved Time C. difficile Comment:Backloaded December 21, 2010 09/21/2010 09/21/2010 documented as of this encounter Care Teams Hybrid Powertrain Development Engineer Relationship Specialty Start Date End Date Lenin Ventura MD [email or web address] [address] PCP - General 07/06/16 Lenin Ventura MD [email or web address] [address] 07/06/16 documented as of this encounter
--- OUTSIDE RECORDS SUMMARY | 2024-02-22 08:33 | XMS_ITS | Encounter Summary ---
Author Organization [facility] Healthcare Address [address] [place] [address] Care Team Providers Care Emergency Vehicle Dispatcher Name Role Phone Lenin Ventura MD Primary Care Provider [phone] Lenin Ventura MD Unavailable [phone] Reason for Visit * Reason Comments Diarrhea evaluated by SALOONKEEPER Dizziness Encounter Details Date Type Department Care Team (Latest Contact Info) Description 02/04/2019 11:49 AM MOTOR VEHICLE ASSEMBLY SUPERVISOR - 02/04/2019 4:30 PM MOTOR VEHICLE ASSEMBLY SUPERVISOR Hospital Encounter [facility] ([facility]) [address] [place] [id number] Burt Dos Santos MD PhD [address], [address] [place] [address] Dehydration (Primary Dx) Discharge Disposition: Discharge to home or self care Social History Tobacco Use Types Packs/Day Years Used Date Smoking Tobacco: Former Smokeless Tobacco: Never Sex and Gender Information Value Date Recorded Sex Assigned at Not on file Legal Sex Male 9:45 AM MOTOR VEHICLE ASSEMBLY SUPERVISOR Gender Identity Not on file Sexual Orientation Not on file documented as of this encounter Last Filed Vital Signs Vital Sign Reading Time Taken Comments Blood Pressure 109/70 02/04/2019 4:16 PM MOTOR VEHICLE ASSEMBLY SUPERVISOR Pulse 81 02/04/2019 4:16 PM MOTOR VEHICLE ASSEMBLY SUPERVISOR Temperature 36.6 ??C (97.9 ??F) 02/04/2019 4:16 PM CS T Respiratory Rate 18 02/04/2019 4:16 PM MOTOR VEHICLE ASSEMBLY SUPERVISOR Oxygen Saturation 98% 02/04/2019 4:16 PM MOTOR VEHICLE ASSEMBLY SUPERVISOR Inhaled Oxygen Concentration - - Weight 121.6 kg (268 lb) 02/04/2019 11:52 AM MOTOR VEHICLE ASSEMBLY SUPERVISOR Height - - Body Mass Index 32.84 04/10/2018 9:49 AM MOTOR VEHICLE ASSEMBLY SUPERVISOR documented in this encounter Discharge Diagnoses Diagnosis Diarrhea, unspecified - DIARRHEA, UNSPECIFIED Dizziness and giddiness - DIZZINESS AND GIDDINESS Dehydration - DEHYDRATION USP (current) use of non-steroidal anti-inflammatories (nsaid) - FDC (CURRENT) USE OF NON-STEROIDAL ANTI-INFLAMMATORIES (NSAID) Other supervisor long goods (current) drug therapy - OTHER RECONCILER (CURRENT) DRUG THERAPY Personal history of nicotine dependence - PERSONAL HISTORY OF NICOTINE DEPENDENCE Allergy status to other antibiotic agents status - ALLERGY STATUS TO OTHER ANTIBIOTIC AGENTS STATUS documented in this encounter Discharge Instructions * Patient Instructions* Dory Curry RN - 02/04/2019 4:24 PM MOTOR VEHICLE ASSEMBLY SUPERVISOR .After 4:30 PM during the week, on weekends and holidays, call [phone] and ask to have the Location Director Physician paged for you. Saturday through Saturday, 8 AM to 4:30 PM, call [phone] [facility] Oncology Physician at [facility] Medicine and ask for a member of your doctor's team. Special Instructions: ?? Drink at least 64 ounces of decaffeinated liquid every day. ?? Take your temperature 2 times a day. ?? Bring your bottles of all medicines you are taking with you or a complete medication list to allappointments. Additional Information: ?? Diet: As tolerated. Avoid raw or undercooked meats. ?? Activity: As tolerated. ?? Care Instructions: Take all medications as prescribed. ?? Special Instructions: ?? Drink at least 64 ounces of decaffeinated liquid every day. ?? Take your temperature 2 times a day. Bring your bottles of all medicines you are taking or a complete medication list with you to all appointments. CALL YOUR DOCTOR RIGHT AWAY IF YOU HAVE: ?? A temperature of 100.5 F or 38 C ?? Shaking chills ?? DO NOT take Tylenol, aspirin, or ibuprofen unless your doctor tells you to ?? A hard time breathing - Shortness of breath at rest or after minimal exertion ?? Vomiting that is not controlled by your anti-nausea medicine ?? Nausea that prevents you from eating, drinking or taking medicine, and is not being controlled by your anti-nausea medicine ?? Unusual or heavy bleeding ?? Blood in urine, black or bloody stool, or nosebleeds ?? Feeling confused or very sleepy - Weakness or dizziness ?? Pain of increased intensity or development of new pain, including strong headaches CALL WITHIN 24 HOURS FOR: ?? Pain or skin changes at the drug injection site ?? Diarrhea for more than 2 days that is not controlled by anti diarrhea medicine ?? Watery diarrhea, stomach cramps, or nausea that doesn't go away ?? No bowel movement for 2 or more days ?? Frequent and/or painful urinating ?? Persistent cough or a cough producing yellow or green mucous ?? Mouth sores ?? Skin rash ?? If you are unable to get your medicines at the pharmacy ?? Avoid taking any non-prescription medicine without your doctor's approval R VEHICLE ASSEMBLY SUPERVISOR documented in this encounter Medications at Time of Discharge fluticasone (FLONASE) 50 mcg/actuation nasal spray Administer 2 sprays into each nostril daily 03/08/2015 acyclovir (ZOVIRAX) 200 mg capsuleIndication s:CLL (chronic lymphocytic leukemia) (HCC) TAKE 2 CAPSULES(400 MG) BY MOUTH TWICE DAILY 60 capsule 01/21/2019 0 al & mag hydroxide simethicone-diphe nhydramine-lidoca ine-nystatin (MAGIC MOUTHWASH) suspension 4-3-0-1Indication s:Chemotherapy-In duced Mucositis Swish and swallow 10 mL every 4 (four) hours as needed (mouth pain) 240 mL 1 08/18/2018 0 cyanocobalamin, vitamin B-12, (VITAMIN B-12 ORAL)Indications: CLL (chronic lymphocytic leukemia) (HCC) Take 1,000 mcg by mouth daily 0 HYDROcodone-aceta minophen (NORCO) 5-325 mg per tabletIndications :Pain Take 1 tablet by mouth every 6 (six) hours as needed for pain 0 10/09/2017 0 ibrutinib (IMBRUVICA) 420 mg tabletIndications :CLL (chronic lymphocytic leukemia) (HCC) Take 1 tablet (420 mg total) by mouth daily 28 tablet 2 12/09/2018 0 IBUPROFEN ORALIndications:p t unsure of dose Take by mouth as needed 0 polyethylene glycol (GoLYTELY) 236-22.74-6.74 -5.86 gram solutionIndicatio ns:Bowel Evacuation TAKE DIRECTED. 01/01/2017 0 ranitidine (ZANTAC) 150 mg capsule Take 150 mg by mouth daily 0 documented as of this encounter Discharge Disposition Disposition Code Departure Means Destination Discharge to home or self care documented in this encounter Progress Notes * Oksana Rain SALOONKEEPER - 02/04/2019 11:51 AM CST [facility] Patient is a 68 y.o. male with chief complaint of diarrhea/lightheadedness. HPI This is a 68 year old male with a history of CLL, diagnosed in July 2005, treated with Rituxan and Fludarabine; 6 cycles in 2007. Disease progression in November 2014, treated with Rituxan and ALT-803. Disease progression in May 2018, now on Ibrutinib. Patient reports ongoing episodes of diarrhea over the last 2 weeks. He has it for a day or so and then it goes away. States he had 7-8 liquid stools on Saturday. No difficulties on Saturday. Formed bowel movement today. Denies any blood in stool. No nausea/vomiting. Does experience cramping and gas. Decreased food and fluid intake. Ongoing sinus issues. He has been on 2 antibiotics over the last month. No fever. 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 BIOPSY LYMPH NODE SUPERFICIAL N/A 12/07/2014 Medications Prior to Admission Medication Sig Dispense Refill Last Dose ??? acyclovir (ZOVIRAX) 200 mg capsule TAKE 2 CAPSULES(400 MG) BY MOUTH TWICE DAILY 60 capsule 0 ? ? al & mag hydroxide raxcglmfcne-svycdhbselseckg-vdfldthcv-nystatin (MAGIC MOUTHWASH) suspension 1-1-1-1 Swish and swallow 10 mL every 4 (four) hours as needed (mouth pain) 240 mL 1 Taking ??? cyanocobalamin, vitamin B-12, (VITAMIN B-12 ORAL) Take by mouth daily Taking ??? fluticasone (FLONASE) 50 mcg/actuation nasal spray daily. Taking ??? HYDROcodone-acetaminophen (NORCO) 5-325 mg per tablet as needed 0 Taking Differently ??? ibrutinib (IMBRUVICA) 420 mg tablet Take 1 tablet (420 mg total) by mouth daily 28 tablet 2 Taking ??? IBUPROFEN ORAL Take by mouth as needed Taking ??? polyethylene glycol (GoLYTELY) 236-22.74-6.74 -5.86 gram solution TAKE DIRECTED. Taking ??? ranitidine (ZANTAC) 150 mg capsule pt states prn Not Taking Current Facility-Administered Medications Medication Dose Route Frequency Provider Last Rate Last Dose ??? sodium chloride 0.9% bolus 500 mL 500 mL intravenous Once Oksana Rain NP Allergies Allergen Reactions ??? Cefuroxime Social History Socioeconomic History ??? Marital status: Spouse name: Not on file ??? Number of children: Not on file ??? Years of education: Not on file ??? Highest education level: Not on file Occupational History ??? Not on file Social Needs ??? Financial resource strain: Not on file ??? Food insecurity: Worry: Not on file Inability: Not on file ??? Transportation needs: Medical: Not on file Non-medical: Not on file Tobacco Use ??? Smoking status: Former Smoker ??? Smokeless tobacco: Never Used Substance and Sexual Activity ??? Alcohol use: Not on file ??? Drug use: Not on file ??? Sexual activity: Not on file Lifestyle ??? Physical activity: Days per week: Not on file Minutes per session: Not on file ??? Stress: Not on file Relationships ??? Social connections: Talks on phone: Not on file Gets together: Not on file Attends yazdanism service: Not on file Active member of club or organization: Not on file Attends meetings of clubs or organizations: Not on file Relationship status: Not on file ??? Intimate partner violence: Fear of current or ex partner: Not on file Emotionally abused: Not on file Physically abused: Not on file Forced sexual activity: Not on file Other Topics Concern ??? Not on file Social History Narrative Merged History Encounter Family History Problem Relation Age of Onset ??? Heart disease Father Family history of cardiac disorder - (Added by TW Conv) ??? Macular degeneration Mother Family history of macular degeneration - (Added by TW Conv) ??? Hypertension Mother Family history of hypertension - (Added by TW Conv) ??? Hypertension Father Family history of hypertension - (Added by TW Conv) ??? Diabetes Father Family history of diabetes mellitus - (Added by TW Conv) ??? Depression Daughter Family history of depression - (Added by TW Conv) ??? Depression Son Family history of depression - (Added by TW Conv) ??? Anxiety disorder Mother Anxiety - (Added by TW Conv) ??? Anxiety disorder Daughter Anxiety - (Added by TW Conv) ??? Anxiety disorder Son Anxiety - (Added by TW Conv) ??? Glaucoma Father Family history of glaucoma - (Added by TW Conv) ??? Colon cancer Other Family history of colon cancer - Relation: Grandmother (Added by TW Conv) Review of Systems Constitutional: Positive for activity change and appetite change. Feels tired. HENT: Positive for congestion, postnasal drip, sinus pressure and sinus pain. Eyes: Negative. Respiratory: Cough secondary to nasal drainage. Cardiovascular: Negative. Gastrointestinal: Positive for diarrhea. Last bowel movement was today, formed. Genitourinary: Negative. Musculoskeletal: Negative. Skin: Negative. Neurological: Positive for light-headedness. Hematological: Negative. Psychiatric/Behavioral: Depression. Physical Exam Vitals signs reviewed. Constitutional: Appearance: Normal appearance. HENT: Head: Normocephalic. Comments: Sinus tenderness upon palpation. Nose: Nose normal. Mouth/Throat: Mouth: Mucous membranes are moist. Pharynx: Oropharynx is clear. Comments: Small sore noted on bottom right, taking MM. Eyes: Conjunctiva/sclera: Conjunctivae normal. Pupils: Pupils are equal, round, and reactive to light. Neck: Musculoskeletal: Normal range of motion and neck supple. Cardiovascular: Rate and Rhythm: Normal rate and regular rhythm. Pulses: Normal pulses. Heart sounds: Normal heart sounds. Pulmonary: Effort: Pulmonary effort is normal. Breath sounds: Normal breath sounds. Abdominal: General: Bowel sounds are normal. Comments: Rounded. Musculoskeletal: Comments: Generalized weakness. Skin: General: Skin is warm and dry. Capillary Refill: Capillary refill takes less than 2 seconds. Neurological: General: No focal deficit present. Mental Status: He is alert and oriented to person, place, and time. Psychiatric: Mood and Affect: Mood normal. Behavior: Behavior normal. Most Recent : Vitals: 02/04/19 1154 BP: 116/72 Pulse: 77 Resp: 20 Temp: 36.3 ??C (97.3 ??F) SpO2: 98% Lab/Radiology/Diagnostic Review: Laboratory review: Lab results in the last 12 hours: Recent Results (from the past 12 hour(s)) CBC with auto differential Collection Time: 02/04/19 12:20 PM Result Value Ref Range WBC 9.2 3.8 - 9.9 K/cumm Hgb 13.3 13.0 - 17.5 g/dL Hct 39.4 38.9 - 50.3 % Plt 126 (L) 150 - 400 K/cumm MPV 13.9 (H) 9.1 - 12.3 fL RBC 4.02 (L) 4.30 - 5.80 M/cumm MCV 98.0 (H) 81.3 - 96.4 fL MCH 33.1 27.1 - 33.3 pg MCHC 33.8 32.3 - 35.7 g/dL RDW CV 15.5 (H) 11.1 - 14.9 % RDW SD 54.7 (H) 35.7 - 48.1 fL NRBC abs 0.02 (H) 0.00 - 0.01 K/cumm Comprehensive metabolic panel Collection Time: 02/04/19 12:20 PM Result Value Ref Range Sodium 137 135 - 145 mmol/L Potassium, pl 5.2 (H) 3.3 - 4.9 mmol/L Chloride 104 97 - 110 mmol/L CO2 25 22 - 32 mmol/L Anion gap 8 2 - 15 mmol/L BUN 15 8 - 25 mg/dL Creatinine 0.89 0.80 - 1.30 mg/dL Glucose 92 70 - 199 mg/dL Calcium 9.0 8.5 - 10.3 mg/dL Bilirubin, total 0.5 0.1 - 1.2 mg/dL Protein, pl 6.1 (L) 6.5 - 8.5 g/dL Albumin 4.0 3.5 - 5.0 g/dL Alk phos 94 40 - 130 Units/L ALT 26 7 - 55 Units/L AST 44 10 - 50 Units/L Magnesium Collection Time: 02/04/19 12:20 PM Result Value Ref Range Magnesium 1.8 1.4 - 2.5 mg/dL Phosphorus Collection Time: 02/04/19 12:20 PM Result Value Ref Range Phosphorus, pl 4.0 2.3 - 4.5 mg/dL Differential, auto Collection Time: 02/04/19 12:20 PM Result Value Ref Range Neutrophil abs 4.9 1.7 - 6.5 K/cumm Imm gran abs 0.1 0.0 - 0.1 K/cumm Lymphocyte abs 3.4 (H) 0.8 - 3.3 K/cumm Monocyte abs 0.7 0.2 - 0.8 K/cumm Eosinophil abs 0.0 0.0 - 0.5 K/cumm Basophil abs 0.1 0.0 - 0.1 K/cumm Neutrophil pct 53.2 % Imm gran pct 1.2 % Lymphocyte pct 36.6 % Monocyte pct 7.8 % Eosinophil pct 0.4 % Basophil pct 0.8 % Potassium, whole blood Collection Time: 02/04/19 1:17 PM Result Value Ref Range Potassium, bld 2.9 (L) 3.3 - 4.9 mmol/L Basic metabolic panel Collection Time: 02/04/19 1:37 PM Result Value Ref Range Sodium 144 135 - 145 mmol/L Potassium, pl 2.9 (L) 3.3 - 4.9 mmol/L Chloride 118 (H) 97 - 110 mmol/L CO2 21 (L) 22 - 32 mmol/L Anion gap 5 2 - 15 mmol/L BUN 10 8 - 25 mg/dL Creatinine 0.66 (L) 0.80 - 1.30 mg/dL Glucose 62 (L) 70 - 199 mg/dL Calcium 5.8 (Critical) 8.5 - 10.3 mg/dL Critical Result Callback Chemistry Collection Time: 02/04/19 1:37 PM Result Value Ref Range Date Notified [id number] Time Notified 1436 TestName calcium Called/Read Back Kaylah Rinconentials RN Called By Basic metabolic panel Collection Time: 02/04/19 2:49 PM Result Value Ref Range Sodium 141 135 - 145 mmol/L Potassium, pl 4.2 3.3 - 4.9 mmol/L Chloride 105 97 - 110 mmol/L CO2 29 22 - 32 mmol/L Anion gap 7 2 - 15 mmol/L BUN 13 8 - 25 mg/dL Creatinine 0.93 0.80 - 1.30 mg/dL Glucose 84 70 - 199 mg/dL Calcium 8.8 8.5 - 10.3 mg/dL Calcium, ionized Collection Time: 02/04/19 2:49 PM Result Value Ref Range Calcium, Ionized 4.40 (L) 4.50 - 5.10 mg/dL Discussion: 1. Lightheadedness: dehydration. Routine labs obtained. 2. Dehydration: diarrhea/decreased oral intake. One liter of Normal Saline infused over 2 hours. Additional 500 ml of Normal Saline infused over 1 hour. Discussion: Patient feels better after infusion of Normal Saline. He was able to eat while in the clinic. No bowel movement while here, thus unable to send a specimen to lab. Encourage to increase oral intake. Discussed going to primary physician about ENT consult for ongoing sinus issue. Will callNC concerning diarrhea being a possible side effect of current therapy. Instructed to call office/after hours number with worsening of symptoms or concerns. All questions answered. Verbalizes understanding. Discharged to home. Family at side. Oksana Rain NP R VEHICLE ASSEMBLY SUPERVISOR documented in this encounter Nursing Notes * Dory Curry RN - 02/04/2019 4:29 PM CST Patient tolerated treatment well. Discharge instruction was given to patient . Discharged in stablecondition. R VEHICLE ASSEMBLY SUPERVISOR * Dory Curry RN - 02/04/2019 11:57 AM CST [facility] to [facility] to be evaluated by SALOONKEEPER due to diarrhea and dizziness, accompanied by family. Reviewed todays plan of care with the patient and is agreeable with this plan. Pt is sitting in the chair/ bed in comfortable position with the call light in reach. R VEHICLE ASSEMBLY SUPERVISOR documented in this encounter Plan of Treatment Not on file documented as of this encounter Procedures Procedure Name Priority Date/Time Associated Diagnosis Comments CALCIUM, IONIZED STAT 02/04/2019 2:49 PM MOTOR VEHICLE ASSEMBLY SUPERVISOR BASIC METABOLIC PANEL STAT 02/04/2019 2:49 PM MOTOR VEHICLE ASSEMBLY SUPERVISOR CRITICAL RESULT CALLBACK CHEMISTRY STAT 02/04/2019 1:37 PM MOTOR VEHICLE ASSEMBLY SUPERVISOR BASIC METABOLIC PANEL STAT 02/04/2019 1:37 PM MOTOR VEHICLE ASSEMBLY SUPERVISOR POTASSIUM, WHOLE BLOOD STAT 9 1:17 PM MOTOR VEHICLE ASSEMBLY SUPERVISOR DIFFERENTIAL AUTO STAT 02/04/2019 12: 20 PM MOTOR VEHICLE ASSEMBLY SUPERVISOR CBC WITH AUTO DIFFERENTIAL STAT 02/04/2019 12:20 PM MOTOR VEHICLE ASSEMBLY SUPERVISOR PHOSPHORUS STAT 02/04/2019 12:20 PM MOTOR VEHICLE ASSEMBLY SUPERVISOR MAGNESIUM STAT 02/04/2019 12:20 PM MOTOR VEHICLE ASSEMBLY SUPERVISOR COMPREHENSIVE METABOLIC PANEL STAT 02/04/2019 12:20 PM MOTOR VEHICLE ASSEMBLY SUPERVISOR documented in this encounter Results * (ABNORMAL) Calcium, ionized (02/04/2019 2:49 PM MOTOR VEHICLE ASSEMBLY SUPERVISOR) Calcium, Ionized 4.40(L) 4.50 - 5.10 mg/dL [facility] Blood specimen (specimen) 02/04/2019 2:49 PM MOTOR VEHICLE ASSEMBLY SUPERVISOR 02/04/2019 3:13 PM MOTOR VEHICLE ASSEMBLY SUPERVISOR Oksana Rain SALOONKEEPER LAB BLOOD ORDERABLES [place] l Result Performing Organization Address City/[facility]/ZIP Co de Phone Number [facility] Department [place] [address] * Basic metabolic panel (02/04/2019 2:49 PM MOTOR VEHICLE ASSEMBLY SUPERVISOR) [facility] Sodium 141 135 - 145 mmol/L [facility] Potassium, pl 4.2 3.3 - 4.9 mmol/L [facility] Chloride 105 97 - 110 mmol/L [facility] CO2 29 22 - 32 mmol/L [facility] Anion gap 7 2 - 15 mmol/L [facility] BUN 13 8 - 25 mg/dL [facility] Creatinine 0.93 0.80 - 1.30 mg/dL [facility] Glucose 84 70 - 199 mg/dL [facility] Comment: Interpretive Data Fasting glucose [...] interpretive data was last revised 2017. Calcium 8.8 8.5 - 10.3 mg/dL [facility] Blood specimen (specimen) 02/04/2019 2:49 PM MOTOR VEHICLE ASSEMBLY SUPERVISOR 02/04/2019 3:18 PM MOTOR VEHICLE ASSEMBLY SUPERVISOR Oksana Rain NP LAB BLOOD ORDERABLES [place] l Result Performing Organization Address [facility] Co de Phone Number [facility] Department [place] [address] * Critical Result Callback Chemistry (02/04/2019 1:37 PM MOTOR VEHICLE ASSEMBLY SUPERVISOR) Date Notified [id number] VANESSA [facility] Time Notified 1436 VANESSA CASTRO TestName calcium VANESSA CASTRO Called/Read Back Kaylah CASTRO Credentials RN VANESSA CASTRO Called By VANESSA CASTRO Blood specimen (specimen) 02/04/2019 1:37 PM MOTOR VEHICLE ASSEMBLY SUPERVISOR 02/04/2019 1:52 PM MOTOR VEHICLE ASSEMBLY SUPERVISOR Oksana Rain NP LAB BLOOD ORDERABLES [place] westfall Result [facility] Department [place] [address] * (ABNORMAL) Basic metabolic panel (02/04/2019 1:37 PM MOTOR VEHICLE ASSEMBLY SUPERVISOR) Sodium 144 135 - 145 mmol/L [facility] Comment: One or more unlikely results, were obtained from this sample and the analysis was verified. ??If these and other concurrent results from this sample should be deleted due to IV contamination or improper collection, the physician should contact the laboratory. Potassium, pl 2.9(L) 3.3 - 4.9 mmol/L [facility] Comment: One or more unlikely results, were obtained from this sample and the analysis was verified. ??If these and other concurrent results from this sample should be deleted due to IV contamination or improper collection, the physician should contact the laboratory. Chloride 118(H) 97 - 110 mmol/L [facility] Comment: One or more unlikely results, were obtained from this sample and the analysis was verified. ??If these and other concurrent results from this sample should be deleted due to IV contamination or improper collection, the physician should contact the laboratory. CO2 21(L) 22 - 32 mmol/L [facility] Comment: One or more unlikely results, were obtained from this sample and the analysis was verified. ??If these and other concurrent results from this sample should be deleted due to IV contamination or improper collection, the physician should contact the laboratory. Anion gap 5 2 - 15 mmol/L [facility] Comment: One or more unlikely results, were obtained from this sample and the analysis was verified. ??If these and other concurrent results from this sample should be deleted due to IV contamination or improper collection, the physician should contact the laboratory. BUN 10 8 - 25 mg/dL [facility] Comment: One or more unlikely results, were obtained from this sample and the analysis was verified. ??If these and other concurrent results from this sample should be deleted due to IV contamination or improper collection, the physician should contact the laboratory. Creatinine 0.66(L) 0.80 - 1.30 mg/dL [facility] Comment: One or more unlikely results, were obtained from this sample and the analysis was verified. ??If these and other concurrent results from this sample should be deleted due to IV contamination or improper collection, the physician should contact the laboratory. Glucose 62(L) 70 - 199 mg/dL [facility] Comment: One or more unlikely results, were obtained from this sample and the analysis was verified. ??If these and other concurrent results from this sample should be deleted due to IV contamination or improper collection, the physician should contact the laboratory. Interpretive Data Fasting glucose >/= 126 mg/dl [...] interpretive data was last revised 2017. Calcium 5.8(C) 8.5 - 10.3 mg/dL [facility] Comment: One or more unlikely results, were obtained from this sample and the analysis was verified. ??If these and other concurrent results from this sample should be deleted due to IV contamination or improper collection, the physician should contact the laboratory. Blood specimen (specimen) 02/04/2019 1:37 PM MOTOR VEHICLE ASSEMBLY SUPERVISOR 02/04/2019 1:46 PM MOTOR VEHICLE ASSEMBLY SUPERVISOR us Oksana Rain SALOONKEEPER LAB BLOOD ORDERABLES Edit ed Result - Final Performing Organization Address City/[facility]/ZIP Co de Phone Number [facility] [place] [address] * (ABNORMAL) Potassium, whole blood (02/04/2019 1:17 PM MOTOR VEHICLE ASSEMBLY SUPERVISOR) Pathologist [facility] Potassium, bld 2.9(L) 3.3 - 4.9 mmol/L [facility] Comment:Repeated and verifie d. Blood specimen (specimen) 02/04/2019 1:17 PM MOTOR VEHICLE ASSEMBLY SUPERVISOR 02/04/2019 1:25 PM MOTOR VEHICLE ASSEMBLY SUPERVISOR us Oksana Rain NP LAB BLOOD ORDERABLES [place] l Result Performing Organization Address [facility] Co de Phone Number [facility] [place] [address] * (ABNORMAL) Differential, auto (02/04/2019 12:20 PM MOTOR VEHICLE ASSEMBLY SUPERVISOR) [facility] Neutrophil abs 4.9 1.7 - 6.5 K/cumm [facility] Imm gran abs 0.1 0.0 - 0.1 K/cumm [facility] Lymphocyte abs 3.4(H) 0.8 - 3.3 K/cumm [facility] Monocyte abs 0.7 0.2 - 0.8 K/cumm [facility] Eosinophil abs 0.0 0.0 - 0.5 K/cumm [facility] Basophil abs 0.1 0.0 - 0.1 K/cumm [facility] Neutrophil pct 53.2 % [facility] Comment: Interpretive Data Percent cell count reference ranges are not reported, since discordance with absolute values may lead to misinterpretation of CBC data. Current Interpretive Data was last revised on 2017. Imm gran pct 1.2 % [facility] Comment: Interpretive Data Percent cell count reference ranges are not reported, since discordance with absolute values may lead to misinterpretation of CBC data. Current Interpretive Data was last revised on 2017. Lymphocyte pct 36.6 % [facility] Comment: Interpretive Data Percent cell count reference ranges are not reported, since discordance with absolute values may lead to misinterpretation of CBC data. Current Interpretive Data was last revised on 2017. Monocyte pct 7.8 % [facility] Comment: Interpretive Data Percent cell count reference ranges are not reported, since discordance with absolute values may lead to misinterpretation of CBC data. Current Interpretive Data was last revised on 2017. Eosinophil pct 0.4 % [facility] Comment: Interpretive Data Percent cell count reference ranges are not reported, since discordance with absolute values may lead to misinterpretation of CBC data. Current Interpretive Data was last revised on 2017. Basophil pct 0.8 % [facility] Comment: Interpretive Data Percent cell count reference ranges are not reported, since discordance with absolute values may lead to misinterpretation of CBC data. Current Interpretive Data was last revised on 2017. Blood specimen (specimen) 02/04/2019 12:20 PM MOTOR VEHICLE ASSEMBLY SUPERVISOR 02/04/2019 12:35 PM MOTOR VEHICLE ASSEMBLY SUPERVISOR Oksana Rain SALOONKEEPER LAB BLOOD ORDERABLES [place] l Result [facility] Department [place] [address] * Phosphorus (02/04/2019 12:20 PM MOTOR VEHICLE ASSEMBLY SUPERVISOR) Pathologist [facility] Phosphorus, pl 4.0 2.3 - 4.5 mg/dL [facility] Blood specimen (specimen) (Blood, Venous) 02/04/2019 12:20 PM MOTOR VEHICLE ASSEMBLY SUPERVISOR 02/04/2019 12:35 PM MOTOR VEHICLE ASSEMBLY SUPERVISOR Oksana Rain SALOONKEEPER LAB BLOOD ORDERABLES [place] l Result [facility] Department [place] [address] * Magnesium (02/04/2019 12:20 PM MOTOR VEHICLE ASSEMBLY SUPERVISOR) Magnesium 1.8 1.4 - 2.5 mg/dL [facility] Blood specimen (specimen) (Blood, Venous) 02/04/2019 12:20 PM MOTOR VEHICLE ASSEMBLY SUPERVISOR 02/04/2019 12:35 PM MOTOR VEHICLE ASSEMBLY SUPERVISOR Oksana Rain NP LAB BLOOD ORDERABLES [place] westfall Result [facility] Department [place] [address] * (ABNORMAL) Comprehensive metabolic panel (02/04/2019 12:20 PM MOTOR VEHICLE ASSEMBLY SUPERVISOR) Sodium 137 135 - 145 mmol/L [facility] Potassium, pl 5.2(H) 3.3 - 4.9 mmol/L [facility] Comment:Hemolyzed; (++++); p otassium value may be falsely elevated by as much as 1.1 - 1.6 mmol/L. Suggest redraw and reanalysis. Chloride 104 97 - 110 mmol/L [facility] CO2 25 22 - 32 mmol/L [facility] Anion gap 8 2 - 15 mmol/L [facility] BUN 15 8 - 25 mg/dL [facility] Creatinine 0.89 0.80 - 1.30 mg/dL [facility] Glucose 92 70 - 199 mg/dL [facility] Comment: Interpretive Data Fasting glucose [...] 2017. Calcium 9.0 8.5 - 10.3 mg/dL [facility] Bilirubin, total 0.5 0.1 - 1.2 mg/dL [facility] Protein, pl 6.1(L) 6.5 - 8.5 g/dL [facility] Albumin 4.0 3.5 - 5.0 g/dL [facility] Alk phos 94 40 - 130 Units/L [facility] Comment:Hemolyzed; result ma y be falsely decreased. ALT 26 7 - 55 Units/L [facility] AST 44 10 - 50 Units/L [facility] Comment:Hemolyzed; result ma y be falsely elevated. Blood specimen (specimen) 02/04/2019 12:20 PM MOTOR VEHICLE ASSEMBLY SUPERVISOR 02/04/2019 12:35 PM MOTOR VEHICLE ASSEMBLY SUPERVISOR us Oksana Rain SALOONKEEPER LAB BLOOD ORDERABLES [place] westfall Result [facility] Department [place] [address] * (ABNORMAL) CBC with auto differential (02/04/2019 12:20 PM MOTOR VEHICLE ASSEMBLY SUPERVISOR) WBC 9.2 3.8 - 9.9 K/cumm [facility] Hgb 13.3 13.0 - 17.5 g/dL [facility] Hct 39.4 38.9 - 50.3 % [facility] Plt 126(L) 150 - 400 K/cumm [facility] MPV 13.9(H) 9.1 - 12.3 fL [facility] RBC 4.02(L) 4.30 - 5.80 M/cumm [facility] MCV 98.0(H) 81.3 - 96.4 fL [facility] MCH 33.1 27.1 - 33.3 pg [facility] MCHC 33.8 32.3 - 35.7 g/dL [facility] RDW CV 15.5(H) 11.1 - 14.9 % [facility] RDW SD 54.7(H) 35.7 - 48.1 fL [facility] NRBC abs 0.02(H) 0.00 - 0.01 K/cumm [facility] Blood specimen (specimen) 02/04/2019 12:20 PM MOTOR VEHICLE ASSEMBLY SUPERVISOR 02/04/2019 12:35 PM MOTOR VEHICLE ASSEMBLY SUPERVISOR Oksana Rain SALOONKEEPER LAB BLOOD ORDERABLES [place] westfall Result [facility] Department [place] [address] documented in this encounter Visit Diagnoses Diagnosis Dehydration- Primary documented in this encounter Administered Medications Inactive Administered Medications - up to 3 most recent administrations Medication Order MAR Action Action Date Dose Rate Site sodium chloride 0.9% bolus 1,000 mL 1,000 mL, intravenous, at 500 mL/hr, Administer over 2 Hours, Once, On Sat02/04/19 at 1250, For 1 dose, Indications: dehydrationIndications:dehy dration New Bag 02/04/2019 12:19 PM MOTOR VEHICLE ASSEMBLY SUPERVISOR 1,000 mL 500 mL/hr sodium chloride 0.9% bolus 500 mL 500 mL, intravenous, at 500 mL/hr, Administer over 1 Hours, Once, On Sat02/04/19 at 1510, For 1 doseIndications:Dehydration New Bag 02/04/2019 2:57 PM MOTOR VEHICLE ASSEMBLY SUPERVISOR 500 mL 500 mL/hr documented in this encounter Active and Recently Administered Medications Times are shown in [employer]OR VEHICLE ASSEMBLY SUPERVISOR. Scheduled Medication Order 02/02/2019 02/03/2019 02/04/2019 sodium chloride 0.9% bolus 1,000 mL (COMPLETED) 1,000 mL, intravenous, at 500 mL/hr, Administer over 2 Hours, Once, On Sat02/04/19 at 1250, For 1 dose, Indications: dehydration 1219 (New Bag - Prov ider: Dory Curry RN)1457 (Stopped - Provider: Dory Curry RN) sodium chloride 0.9% bolus 500 mL (COMPLETED) 500 mL, intravenous, at 500 mL/hr, Administer over 1 Hours, Once, On Sat02/04/19 at 1510, For 1 dose 1457 (New Bag - Prov ider: Dory Curry RN)1624 (Stopped - Provider: Dory Crury RN) documented in this encounter Additional Health Concerns Infection Onset Date Last Indicated Resolved Time C. difficile Comment:Backloaded December 21, 2010 09/21/2010 09/21/2010 documented as of this encounter Care Teams Emergency Vehicle Dispatcher Relationship Specialty Start Date End Date Lupardus, Lenin Addison, MD [address] [address] PCP - General 07/06/16 Lenin Ventura MD [address] [address] 07/06/16 documented as of this encounter
--- OUTSIDE RECORDS SUMMARY | 2024-02-22 08:33 | XMS_ITS | Encounter Summary ---
Author Organization [facility] Address [address] [place] [address] Phone Care Team Providers Care Cardiovascular Sonographer Name Role Phone Lenin Ventura MD Primary Care Provider [phone] Lenin Ventura MD Unavailable [phone] Reason for Visit * Oncology (Routine) - Closed Specialty Diagnoses / Procedures Referred By Trent delgado Referred To Contact Lab Diagnoses Lymphoma, small lymphocytic (HCC) lab,rov Procedures ONCBCN LAB APPOINTMENT ARM DRAW Magali Stapleton NP [address] DIV IM BONE MARROW TRANSPLANT, [address] [place] [address] Phone: tel: fax: [facility] Oncology [facility] 7th Floor [address] [place] [address] Phone: tel: Referral ID Status Reason Start Date Expiration Date Visits Re quested Visits Authorized [id number] Closed 07/10/2018 03/03/2019 99 99 Encounter Details Date Type Department Care Team (Latest Contact Info) Description 10/09/2018 9:15 AM CDT Clinical Support [facility] Oncology [facility] Advanced Medicine 7th Floor [address] [place] [id number] Burt Dos Santos MD PhD [address] DIV IM BONE MARROW TR[employer], [address] [place], [place] [id number] Lymphoma, small lymphocytic (CMS/HCC) Discharge Disposition: Discharge to home or self care Social History Tobacco Use Types Packs/Day Years Used Date Smoking Tobacco: Former Smokeless Tobacco: Never Sex and Gender Information Value Date Recorded Sex Assigned at Not on file Legal Sex Male 9:45 AM MEAT 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 Gender Identity Not on file Sexual Orientation Not on file documented as of this encounter Discharge Disposition Disposition Code Departure Means Destination Discharge to home or self care documented in this encounter Plan of Treatment Not on file documented as of this encounter Procedures Procedure Name Priority Date/Time Associated Diagnosis Comments MORPHOLOGIC SCREEN Routine 10/09/2018 9: 30 AM CDT Lymphoma, small lymphocytic (CMS/HCC) DIFFERENTIAL AUTO Routine 10/09/2018 9:3 0 AM CDT Lymphoma, small lymphocytic (CMS/HCC) CBC WITH AUTO DIFFERENTIAL Routine 10/09/2018 9:30 AM CDT Lymphoma, small lymphocytic (CMS/HCC) LACTATE DEHYDROGENASE Routine 10/09/2018 9:30 AM CDT Lymphoma, small lymphocytic (CMS/HCC) COMPREHENSIVE METABOLIC PANEL Routine 10/09/2018 9:30 AM CDT Lymphoma, small lymphocytic (CMS/HCC) documented in this encounter Results * Morphologic screen (10/09/2018 9:30 AM CDT) Morphologic Screen Original results obtained required verification by peripheral smear. [facility] Blood specimen (specimen) 10/09/2018 9:30 AM CDT 10/09/2018 9:34 AM CDT us Burt Dos Santos MD PhD LAB BLOOD ORDERABLES Final Result [facility] [place] [address] * (ABNORMAL) Differential, auto (10/09/2018 9:30 AM CDT) Neutrophil abs 4.7 1.8 - 6.6 K/cumm [facility] Comment:Testing performed by : [facility], [address] [place] [phone] Lymphocyte abs 18.9(H) 1.2 - 3.3 K/cumm [facility] Comment:Testing performed by : [facility], [address] [place] [phone] Monocyte abs 1.5(H) 0.2 - 1.2 K/cumm [facility] Comment:Testing performed by : [facility], [address] [place] [phone] Eosinophil abs 0.2 0.0 - 0.5 K/cumm [facility] Comment:Testing performed by : [facility], [address] [place] [phone] Basophil abs 0.1 0.0 - 0.2 K/cumm [facility] Comment:Testing performed by : [facility], [address] [place] [phone] Neutrophil pct 18.7 % [facility] Comment: Interpretive Data Percent cell count reference ranges are not reported, since discordance with absolute values may lead to misinterpretation of CBC data. Current Interpretive Data was last revised on 2017. Testing performed by: [facility], [address] [place] [phone] Lymphocyte pct 74.5 % [facility] Comment: Interpretive Data Percent cell count reference ranges are not reported, since discordance with absolute values may lead to misinterpretation of CBC data. Current Interpretive Data was last revised on 2017. Testing performed by: [facility], [address] [place] [phone] Monocyte pct 5.7 % [facility] Comment:Testing performed by : [facility], [address] [place] [phone] Eosinophil pct 0.9 % [facility] Comment:Testing performed by : [facility], [address] [place] [phone] Basophil pct 0.2 % [facility] Comment:Testing performed by : [facility], [address] [place] [phone] Blood specimen (specimen) 10/09/2018 9:30 AM CDT 10/09/2018 9:34 AM CDT Burt Dos Santos MD PhD LAB BLOOD ORDERABLES Final Result [facility] Department [place] [address] * (ABNORMAL) CBC with auto differential (10/09/2018 9:30 AM CDT) WBC 25.4(H) 3.8 - 9.8 K/cumm [facility] Comment:Testing performed by : [address] [phone] Hgb 12.4(L) 13.8 - 17.2 g/dL [facility] Comment:Testing performed by : [address] [phone] Hct 36.9(L) 40.7 - 50.3 % [facility] Comment:Testing performed by : [facility], [address] [place] [phone] Plt 127(L) 140 - 440 K/cumm [facility] Comment:Testing performed by : [address] [phone] MPV 10.8(H) 6.8 - 10.4 fL [facility] Comment:Testing performed by : [address] [phone] RBC 3.77(L) 4.50 - 5.70 M/cumm [facility] Comment:Testing performed by : [address] [phone] MCV 97.9(H) 80.0 - 97.6 fL [facility] Comment:Testing performed by : [address] [phone] MCH 33.0 26.7 - 33.7 pg [facility] Comment:Testing performed by : [address] [phone] MCHC 33.7 32.7 - 35.5 g/dL [facility] Comment:Testing performed by : [facility], [address] [facility] [phone] RDW CV 16.4(H) 11.8 - 14.6 % [facility] Comment:Testing performed by : [facility], [address] [place] [phone] NRBC abs 0.04(H) 0.00 - 0.01 K/cumm [facility] Comment:Testing performed by : [facility], [address] [place] [phone] Blood specimen (specimen) 10/09/2018 9:30 AM CDT 10/09/2018 9:34 AM CDT Burt Dos Santos MD PhD LAB BLOOD ORDERABLES Final Result [facility] Department [place] [address] * (ABNORMAL) Comprehensive metabolic panel (10/09/2018 9:30 AM CDT) Sodium 137 135 - 145 mmol/L [facility] Potassium, pl 4.3 3.3 - 4.9 mmol/L [facility] Chloride 102 97 - 110 mmol/L [facility] CO2 27 22 - 32 mmol/L [facility] Anion gap 8 2 - 15 mmol/L [facility] BUN 21 8 - 25 mg/dL [facility] Creatinine 0.99 0.80 - 1.30 mg/dL [facility] Glucose 118 70 - 199 mg/dL [facility] Comment: Interpretive Data Fasting glucose >/= [...] interpretive data was last revised 2017. Calcium 9.2 8.5 - 10.3 mg/dL [facility] Bilirubin, total 0.4 0.1 - 1.2 mg/dL [facility] Protein, pl 6.0(L) 6.5 - 8.5 g/dL [facility] Albumin 4.2 3.5 - 5.0 g/dL [facility] Alk phos 75 40 - 130 Units/L [facility] ALT 26 7 - 55 Units/L [facility] AST 19 10 - 50 Units/L [facility] Blood specimen (specimen) 10/09/2018 9:30 AM CDT 10/09/2018 9:48 AM CDT Burt Dos Santos MD PhD LAB BLOOD ORDERABLES Final Result Performing Organization Address City/[facility] Co de Phone Number [facility] Department [place] [address] * Lactate dehydrogenase (LD) (10/09/2018 9:30 AM CDT) Lactate dehydrogenase (LDH) 210 100 - 250 Units/L [facility] Blood specimen (specimen) 10/09/2018 9:30 AM CDT 10/09/2018 9:48 AM CDT Burt Dos Santos MD PhD LAB BLOOD ORDERABLES Final Result Performing Organization Address [facility] Co de Phone Number [facility] Department [place] [address] documented in this encounter Visit Diagnoses Diagnosis Lymphoma, small lymphocytic (HCC) Lymphosarcoma, unspecified site, extranodal and solid organ sites documented in this encounter Orders Appointment Requests Count Last Ordered Date Fi rst Ordered Date ONCBCN LAB APPOINTMENT 1 10/09/2018 documented in this encounter Additional Health Concerns Infection Onset Date Last Indicated Resolved Time C. difficile Comment:Backloaded December 21, 2010 09/21/2010 09/21/2010 documented as of this encounter Care Teams Cardiovascular Sonographer Relationship Specialty Start Date End Date Lenin Ventura MD [address] [employer] [address] PCP - General 07/06/16 Lenin Ventura MD [address] [address] 07/06/16 documented as of this encounter
--- OUTSIDE RECORDS SUMMARY | 2024-02-22 08:33 | XMS_ITS | Encounter Summary ---
Author Organization [facility] Healthcare Address [address] [place] [address] Care Team Providers Care Culture Room Worker Name Role Phone Lenin Ventura MD Primary Care Provider [phone] Lenin Ventura MD Unavailable [phone] Encounter Details Date Type Department Care Team (Latest Contact Info) Description 02/01/2017 9:14 AM RECOVERY UNIT OPERATOR - 02/01/2017 1:[address] [facility] Hospital Encounter [facility]IM [phone] Arvind Gilliland MD 1 [facility] [address] [place] [address] Discharge Disposition: Discharge to home or self care Social History Tobacco Use Types Packs/Day Years Used Date Smoking Tobacco: Never Assessed Sex and Gender Information Value Date Recorded Sex Assigned at Not on file Legal Sex Male 9:45 AM RECOVERY UNIT OPERATOR Gender Identity Not on file Sexual Orientation Not on file documented as of this encounter Medications at Time of Discharge fluticasone (FLONASE) 50 mcg/actuation nasal spray Administer 2 sprays into each nostril daily 03/08/2015 polyethylene glycol (GoLYTELY) 236-22.74-6.74 -5.86 gram solutionIndicati ons:Bowel Evacuation TAKE DIRECTED. 01/01/2017 0 documented as of this encounter Discharge Disposition Disposition Code Departure Means Destination Discharge to home or self care documented in this encounter Plan of Treatment Not on file documented as of this encounter Procedures Procedure Name Priority Date/Time Associated Diagnosis Comments SURGICAL PATHOLOGY Routine 02/01/2017 10 :47 AM RECOVERY UNIT OPERATOR UPPER GASTROINTESTINAL ENDOSCOPY REPORT 02/01/2017 COLONOSCOPY REPORT 02/01/2017 SURGICAL PATHOLOGY 02/01/2017 12 :00 AM RECOVERY UNIT OPERATOR documented in this encounter Results * Surgical pathology (02/01/2017 10:47 AM RECOVERY UNIT OPERATOR) 02/01/2017 10:4 7 AM RECOVERY UNIT OPERATOR 02/01/2017 3:00 PM RECOVERY UNIT OPERATOR Narrative 02/04/2017 10:38 PM RECOVERY UNIT OPERATOR [facility] [place] [address] SURGICAL PATHOLOGY REPORT FINAL Patient Name: MICHELINE OLIVO ? Address: [address] [place] [address] ??Service: ??Gastro ??[place] ??[address] ??Location: ??[facility] Taken: 02/01/2017 Gender: M ?? Received: 02/01/2017 : 1950 (Age: 66) ??Hospital #: [id number] Accessioned: 02/01/2017 ?Patient Type: ??[facility] Reported: 02/04/2017 ? Physician(s): Terence Aguilar M.D. ? Diagnosis: A. ??Esophagus, biopsy ? - Squamous mucosa with no histopathologic abnormality - No acute or chronic esophagitis or microorganisms ? - No intestinal metaplasia, dysplasia, or malignancy - Focal calcifications ? B. ??Large and small intestine, ileocecal valve, biopsy ? - Prominent mucosal lymphoid aggregates - No evidence of adenoma or malignancy C. ??Large intestine, ascending colon, polypectomy ? - Tubular adenoma ? - No evidence of high grade dysplasia or malignancy ? D. ??Large intestine, transverse colon polyp, polypectomy ? - Tubular adenoma ? - No evidence of high grade dysplasia or malignancy ? E. ??Large intestine, transverse colon polyp #2, polypectomy ? - Fragments of tubular adenoma ? - No evidence of high grade dysplasia or malignancy ? F. ??Large intestine, transverse colon polyp #3, polypectomy ? - Fragments of tubular adenomas ? - No evidence of high grade dysplasia or malignancy ? G. ??Large intestine, sigmoid colon, polypectomy ? - Tubular adenoma ? - No evidence of high grade dysplasia or malignancy ? H. ??Large intestine, rectum, polypectomy ? - Fragments of tubular adenoma ? - No evidence of high grade dysplasia or malignancy hxz/02/04/2017 11:31 By this signature, I attest that the above diagnosis is based upon my personal examination of the slides(and/or other material indicated in the diagnosis). ?? Rc Gomez MD ??Report Electronically Reviewed and Signed Out By ??Rc Gomez MD 02/04/2017 22:38:59 Microscopic Description and Comment: Microscopic examination substantiates the above cited diagnosis. ?Milad Mehta MD PhD ?History: The patient is a 66-year-old man with dysphagia. ??Operative procedure: Upper GI endoscopy and colonoscopy. ??Operative findings: Dysphagia esophagus (biopsy); multiple polyps in the ileocecal valve (biopsy): Single polyp in ascending colon (polypectomy); single polyp in transverse colon (polypectomy); single polyp in transverse colon (polypectomy) and multiple polyps in transverse colon; single polyp in the sigmoid colon (polypectomy); multiple polyps in the rectum (polypectomy). Specimen(s) Received: A: Esophagus B: Ileocecal valve C: Ascending colon D: Transverse colon E: Transverse colon F: Transverse colon G: Sigmoid colon H: Rectum Gross Description: The specimen is received in eight formalin filled containers each labeled with the patient's name. ??The first container is also labeled cold biopsy esophagus. ??It holds a single irregular pale newsome soft fragment measuring 0.8 x 0.3 x 0.1 cm. ??Stained with hematoxylin. ??Labeled A1. Jar 0. The second container is additionally labeled cold biopsy ileocecal valve colon. ??It holds two irregular newsome-pink soft tissue fragments measuring 0.8 x 0.4 x 0.1 cm in aggregate. ??Labeled B1. ??Jar 0. The third container is additionally labeled cold snare ascending colon polyp. ??It holds a single irregular newsome pink soft tissue fragment measuring 0.3 x 0.2 x 0.1 cm. ??Labeled C1. ??Jar 0. The fourth container is additionally labeled cold biopsy transverse colon polyp. ??It holds a single irregular newsome soft tissue fragment measuring 0.8 x 0.2 x 0.1 cm. ??Labeled D1. ??Jar 0. The fifth container is additionally labeled hot biopsy transverse polyp #2. ??It holds two irregular newsome-pink soft tissue fragment measuring 0.8 x 0.3 x 0.1 cm in aggregate. ??Labeled E1. ??Jar 0. The sixth container is additionally labeled hot snare transverse colon polyp #3. ??It holds multiple irregular newsome pink soft tissue fragments measuring 1.0 x 0.7 x 0.2 cm in aggregate. ??Labeled F1. ??Jar 0. The seventh container is additionally labeled hot biopsy sigmoid colon polyp. ??It holds a single irregular newsome-pink tissue fragment measuring 0.3 x 0.3 x 0.1 cm. ??Labeled G1. ??Jar 0. The eighth container is additionally labeled hot snare rectal colon polyp. ??It holds multiple irregular newsome pink soft tissue fragments measuring 1.1 x 0.5 x 0.1 cm in aggregate. ??Labeled H1. ??Jar 0. cnew/02/01/2017 16:00 ?Jacquelyn Peoples, ARNAV, CT (ASCP ? By this signature, I attest that the above diagnosis is based upon my personal examination of the slides(and/or other material). ?? Surgical Pathology report is available electronically in Clinical Desktop. The performance characteristics of some immunohistochemical stains, fluorescence in-situ hybridization tests and immunophenotyping by flow cytometry cited in this report (if any) were determined by the Surgical Pathology Department at [facility] as part of an ongoing quality control assistant program and in compliance with federally mandated regulations drawn from the Clinical Laboratory Improvement Act of 1988 (CLIA '88). ??Some of these tests rely on the use of analyte specific reagents and are subject to specific labeling requirements by the US Food and Drug Administration. ??Such diagnostic tests may only be performed in a facility that is certified by the Department of Health and Human Services as a high complexity laboratory under CLIA '88. ??The FDA has determined that such clearance or approval is not necessary. ??This test is used for clinical purposes. ??It should not be regarded as investigational or for research. ??Nevertheless, federal rules concerning the medical use of analyte specific reagents require that the following disclaimer be attached to the report: This test was developed and its performance characteristics determined by the Surgical Pathology Department of [facility]. ??It has not been cleared or approved by the U. S. Food and Drug Administration. Arvind Gilliland MD LAB PATHOLOGY ORDERABLES F inal Result * SURGICAL PATHOLOGY (02/01/2017 12:00 AM RECOVERY UNIT OPERATOR) Narrative 02/01/2017 12:00 AM RECOVERY UNIT OPERATOR Ordered by an unspecified provider. [facility] Provider LAB PATHOLOGY ORDERABLES Final Result * COLONOSCOPY REPORT (02/01/2017) Anatomical Region Laterality Modality Other Provider Scanning GI PROCEDURE ORDERABLES Final Result * UPPER GASTROINTESTINAL ENDOSCOPY REPORT (02/01/2017) Anatomical Region Laterality Modality Other us Provider Scanning GI PROCEDURE ORDERABLES Final Result documented in this encounter Visit Diagnoses Not on filedocumented in this encounter Additional Health Concerns Infection Onset Date Last Indicated Resolved Time C. difficile Comment:Backloaded December 21, 2010 09/21/2010 09/21/2010 documented as of this encounter Care Teams Culture Room Worker Relationship Specialty Start Date End Date Lenin Ventura MD [id number] [address] PCP - General 07/06/16 Lenin Ventura MD [id number] [address] 07/06/16 documented as of this encounter
--- OUTSIDE RECORDS SUMMARY | 2024-02-22 08:33 | XMS_ITS | Encounter Summary ---
Author Organization [facility] Address [address] [place] [address] Phone Care Team Providers Care Senior Courtroom Clerk Name Role Phone Lenin Ventura MD Primary Care Provider [phone] Lenin Ventura MD Unavailable [phone] Reason for Visit * Oncology (Routine) - Closed Specialty Diagnoses / Procedures Referred By Trent delgado Referred To Contact Lab Diagnoses Lymphoma, small lymphocytic (HCC) lab,rov Procedures ONCBCN LAB APPOINTMENT ARM DRAW Magali Stapleton NP [address] DIV IM BONE MARROW TRANSPLANT, [address] [place] [address] Phone: tel: fax: [facility] Oncology [facility] Advanced Medicine 7th [place] [address] [place] [address] Phone: tel: Referral ID Status Reason Start Date Expiration Date Visits Re quested Visits Authorized [id number] Closed 07/10/2018 03/03/2019 99 99 Encounter Details Date Type Department Care Team (Late st Contact Info) Description 07/10/2018 9:00 AM CDT Lab [facility] Oncology [facility] Advanced Medicine 7th [place] [address] [place] [phone] Annita Wiley MD [address] DIV IM BONE MARROW TRANSPLANT, [address] [place] [address] Lymphoma, small lymphocytic (CMS/HCC) Discharge Disposition: Discharge to home or self care Social History Tobacco Use Types Packs/Day Years Used Date Smoking Tobacco: Former Smokeless Tobacco: Never Sex and Gender Information Value Date Recorded Sex Assigned at Not on file 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 Gender Identity Not on file Sexual Orientation Not on file documented as of this encounter Discharge Disposition Disposition Code Departure Means Destination Discharge to home or self care documented in this encounter Plan of Treatment Not on file documented as of this encounter Procedures Procedure Name Priority Date/Time Associated Diagnosis Comments LACTATE DEHYDROGENASE Routine 07/10/2018 9:07 AM CDT Lymphoma, small lymphocytic (CMS/HCC) COMPREHENSIVE METABOLIC PANEL Routine 07/10/2018 9:07 AM CDT Lymphoma, small lymphocytic (CMS/HCC) MORPHOLOGIC SCREEN Routine 07/10/2018 9: 05 AM CDT Lymphoma, small lymphocytic (CMS/HCC) DIFFERENTIAL AUTO Routine 07/10/2018 9:0 5 AM CDT Lymphoma, small lymphocytic (CMS/HCC) CBC WITH AUTO DIFFERENTIAL Routine 07/10/2018 9:05 AM CDT Lymphoma, small lymphocytic (CMS/HCC) documented in this encounter Results * (ABNORMAL) Comprehensive metabolic panel (07/10/2018 9:07 AM CDT) Sodium 139 135 - 145 mmol/L [facility] Potassium, pl 4.4 3.3 - 4.9 mmol/L [facility] Chloride 103 97 - 110 mmol/L [facility] CO2 29 22 - 32 mmol/L [facility] Anion gap 7 2 - 15 mmol/L [facility] BUN 15 8 - 25 mg/dL [facility] Creatinine 0.99 0.80 - 1.30 mg/dL [facility] Glucose 165 70 - 199 mg/dL [facility] Comment: Interpretive Data Fasting glucose [...] interpretive data was last revised 2017. Calcium 9.5 8.5 - 10.3 mg/dL [facility] Bilirubin, total 0.5 0.1 - 1.2 mg/dL [facility] Protein, pl 6.2(L) 6.5 - 8.5 g/dL [facility] Albumin 4.2 3.5 - 5.0 g/dL [facility] Alk phos 70 40 - 130 Units/L [facility] ALT 24 7 - 55 Units/L [facility] AST 21 10 - 50 Units/L [facility] Blood specimen (specimen) 07/10/2018 9:07 AM CDT 07/10/2018 9:47 AM CDT Narrative [facility] - 07/10/2018 10:22 AM CDT Magali SJulisa Stapleton [employer]ODGING HOUSE KEEPER LAB BLOOD ORDERABLES Final Res ult Performing Organization Address City/[facility]/ZIP Co de Phone Number [facility] [place] [address] * Lactate dehydrogenase (LD) (07/10/2018 9:07 AM CDT) Lactate dehydrogenase (LDH) 240 100 - 250 Units/L [facility] Blood specimen (specimen) 07/10/2018 9:07 AM CDT 07/10/2018 9:47 AM CDT Narrative [facility] - 07/10/2018 10:22 AM CDT Magali SJulisa Velazquezr [employer] LAB BLOOD ORDERABLES Final Res ult Performing Organization Address City/[facility]/ZIP Co de Phone Number [facility] [place] [address] * Morphologic screen (07/10/2018 9:05 AM CDT) Morphologic Screen Original results obtained required verification by peripheral smear. [facility] Blood specimen (specimen) 07/10/2018 9:05 AM CDT 07/10/2018 9:08 AM CDT Narrative [facility] - 07/10/2018 9:31 AM CDT Magali Stapleton [employer]OD[employer]ING [employer] KEE[employer] LAB BLOOD ORDERABLES Final Res ult [facility] Department [place] [address] * (ABNORMAL) Differential, auto (07/10/2018 9:05 AM CDT) Pathologist [facility] Neutrophil abs 4.0 1.8 - 6.6 K/cumm [facility] Comment:Testing performed by : [facility], [address] [place] [phone] Lymphocyte abs 17.9(H) 1.2 - 3.3 K/cumm [facility] Comment:Testing performed by : [facility], [address] [place] [phone] Monocyte abs 1.0 0.2 - 1.2 K/cumm [facility] Comment:Testing performed by : [facility], [address] [place] [phone] Eosinophil abs 0.1 0.0 - 0.5 K/cumm [facility] Comment:Testing performed by : [facility], [address] [place] [phone] Basophil abs 0.1 0.0 - 0.2 K/cumm [facility] Comment:Testing performed by : [address] [phone] Neutrophil pct 17.4 % [facility] Comment: Interpretive Data Percent cell count reference ranges are not reported, since discordance with absolute values may lead to misinterpretation of CBC data. Current Interpretive Data was last revised on 2017. Testing performed by: [facility], [address] [place] [phone] Lymphocyte pct 77.3 % [facility] Comment: Interpretive Data Percent cell count reference ranges are not reported, since discordance with absolute values may lead to misinterpretation of CBC data. Current Interpretive Data was last revised on 2017. Testing performed by: [facility], [address] [place] [phone] Monocyte pct 4.3 % [facility] Comment:Testing performed by : [facility], [address] [place] [phone] Eosinophil pct 0.6 % [facility] Comment:Testing performed by : [facility], [address] [place] [phone] Basophil pct 0.4 % [facility] Comment:Testing performed by : [facility], [address] [place] [phone] Blood specimen (specimen) 07/10/2018 9:05 AM CDT 07/10/2018 9:08 AM CDT Narrative [facility] - 07/10/2018 9:31 AM CDT us Magali Stapleton [employer]OD[employer]ING [employer]SE KEEPER LAB BLOOD ORDERABLES Final Res ult [facility] Department [place] [address] * (ABNORMAL) CBC with auto differential (07/10/2018 9:05 AM CDT) WBC 23.1(H) 3.8 - 9.8 K/cumm [facility] Comment:Testing performed by : [facility], [address] [place] [phone] Hgb 12.1(L) 13.8 - 17.2 g/dL [facility] Comment:Testing performed by : [facility], [address] [place] [phone] Hct 36.0(L) 40.7 - 50.3 % [facility] Comment:Testing performed by : [facility], [address] [place] [phone] Plt 136(L) 140 - 440 K/cumm [facility] Comment:Testing performed by : [facility], [address] [place] [address] MPV 10.3 6.8 - 10.4 fL [facility] Comment:Testing performed by : [facility], [address] [place] [address] RBC 3.70(L) 4.50 - 5.70 M/cumm [facility] Comment:Testing performed by : [facility], [address] [place] [address] MCV 97.3 80.0 - 97.6 fL [facility] Comment:Testing performed by : [facility], [address] [place] [address] MCH 32.7 26.7 - 33.7 pg [facility] Comment:Testing performed by : [place] [address] MCHC 33.6 32.7 - 35.5 g/dL [facility] Comment:Testing performed by : [facility], [address] [place] [address] RDW CV 15.7(H) 11.8 - 14.6 % [facility] Comment:Testing performed by : [place] [address] NRBC abs 0.05(H) 0.00 - 0.01 K/cumm [facility] Comment:Testing performed by : [facility], [address] [place] [address] Blood specimen (specimen) 07/10/2018 9:05 AM CDT 07/10/2018 9:08 AM CDT Narrative [facility] - 07/10/2018 9:11 AM CDT us Magali Stapleton LODGING HOUSE KEEPER LAB BLOOD ORDERABLES Final Res ult [facility] Department [place] [address] documented in this encounter Visit Diagnoses Diagnosis Lymphoma, small lymphocytic (HCC) Lymphosarcoma, unspecified site, extranodal and solid organ sites documented in this encounter Orders Appointment Requests Count Last Ordered Date Fi rst Ordered Date ONCBCN LAB APPOINTMENT 1 07/10/2018 documented in this encounter Additional Health Concerns Infection Onset Date Last Indicated Resolved Time C. difficile Comment:Backloaded December 21, 2010 09/21/2010 09/21/2010 documented as of this encounter Care Teams Senior Courtroom Clerk Relationship Specialty Start Date End Date Lenin Ventura MD [email or web address] [address] PCP - General 07/06/16 Lenin Ventura MD [email or web address] [address] 07/06/16 documented as of this encounter
--- OUTSIDE RECORDS SUMMARY | 2024-02-22 08:33 | XMS_ITS | Encounter Summary ---
Author Organization [facility] Address [address] [place] [address] Phone Care Team Providers Care Application Security Developer Name Role Phone Lenin Ventura MD Primary Care Provider [phone] Lenin Ventura MD Unavailable [phone] Encounter Details Date Type Department Care Team (Late st Contact Info) Description 02/02/2019 Orders Only [facility] Bone Marrow Transplant [address] [facility] Advanced Medicine 7th Floor, [place] [address] Magali Stapleton NP [address] DIV BONE MARROW TRANSPLANT, [address] [place] [address] Social History Tobacco Use Types Packs/Day Years Used Date Smoking Tobacco: Former Smokeless Tobacco: Never Sex and Gender Information Value Date Recorded Sex Assigned at Not on file 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 If he doesn't get better he will call back. Magali Stapleton ANP GER OPERATIONS documented in this encounter Plan of Treatment Not on file documented as of this encounter Visit Diagnoses Not on filedocumented in this encounter Additional Health Concerns Infection Onset Date Last Indicated Resolved Time C. difficile Comment:Backloaded December 21, 2010 09/21/2010 09/21/2010 documented as of this encounter Care Teams Application Security Developer Relationship Specialty Start Date End Date Lenin Ventura MD [id number] [address] PCP - General 07/06/16 Lenin Ventura MD [id number] [address] 07/06/16 documented as of this encounter
--- OUTSIDE RECORDS SUMMARY | 2024-02-22 08:33 | XMS_ITS | Encounter Summary ---
Author Organization [facility] Address [address] [place] [address] Phone Care Team Providers Care Construction Operations Manager Name Role Phone Lenin Ventura MD Primary Care Provider [phone] Lenin Ventura MD Unavailable [phone] Encounter Details Date Type Department Care Team (Late st Contact Info) Description 05/01/2019 Orders Only [facility] Bone Marrow Transplant [address] [facility] Advanced Medicine 7th Floor, [place] [phone] Burt Dos Santos MD PhD [address] DIV IM BONE MARROW TRANSPLANT, [address] [place], [place] [id number] CLL (chronic lymphocytic leukemia) ([facility]/HCC) Social History Tobacco Use Types Packs/Day Years Used Date Smoking Tobacco: Former Smokeless Tobacco: Never Sex and Gender Information Value Date Recorded Sex Assigned at Not on file 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 difficile Comment:Backloaded December 21, 2010 09/21/2010 09/21/2010 documented as of this encounter Care Teams Construction Operations Manager Relationship Specialty Start Date End Date Lenin Ventura MD [address] [place] [address] PCP - General 07/06/16 Lenin Ventura MD [address] [place] [address] 07/06/16 documented as of this encounter
--- OUTSIDE RECORDS SUMMARY | 2024-02-22 08:33 | XMS_ITS | Encounter Summary ---
Author Organization [facility] Address [address] [place] [address] Phone Care Team Providers Care Dairy Specialist Name Role Phone Lenin Ventura MD Primary Care Provider [phone] Lenin Ventura MD Unavailable [phone] Reason for Visit * Reason Onset Date Comments Plan of care 02/10/2019 Encounter Details Date Type Department Care Team (Late st Contact Info) Description 02/10/2019 Telephone [facility] On[facility] [address] [place] [address] [place] [address] Priscilla Wilkins Plan of care Social History Tobacco Use Types Packs/Day Years Used Date Smoking Tobacco: Former Smokeless Tobacco: Never Sex and Gender Information Value Date Recorded Sex Assigned at Not on file Legal Sex Male 9:45 AM [employer] Gender Identity Not on file Sexual Orientation Not on file documented as of this encounter Miscellaneous Notes * Telephone Encounter - Josie Mejai, ALICIA - 02/10/2019 2:50 PM [employer] Patient called stating that he is still struggling with chronic sinus issues. He stopped taking imbruvica as well as antibiotics he was on for URI. Diarrhea has resolved and he is going to start taking the imbruvica again. Patient is seeing PCP routinely for management of sinus issues. I offered to put through a referralagain for ENT, the patient said he would let me know at a later date if he would like to proceed with that. R MEAT documented in this encounter Plan of Treatment Not on file documented as of this encounter Visit Diagnoses Not on filedocumented in this encounter Additional Health Concerns Infection Onset Date Last Indicated Resolved Time C. difficile Comment:Backloaded December 21, 2010 09/21/2010 09/21/2010 documented as of this encounter Care Teams Dairy Specialist Relationship Specialty Start Date End Date Lenin Ventura MD [email or web address] [id number] PCP - General 07/06/16 Lenin Ventura MD [email or web address] [id number] 07/06/16 documented as of this encounter
--- OUTSIDE RECORDS SUMMARY | 2024-02-22 08:33 | XMS_ITS | Encounter Summary ---
Author Organization [facility] Address [address] [place] [address] Phone Care Team Providers Care Ceo & Founder Name Role Phone Lenin Ventura MD Primary Care Provider [phone] Lenin Ventura MD Unavailable [phone] Reason for Referral * Diagnostic Imaging (Routine) - Closed Specialty Diagnoses / Procedures Referred By Trent delgado Referred To Contact Radiology Diagnoses Lymphoma, small lymphocytic (HCC) Procedures CT Chest Abdomen Pelvis W Contrast CT Neck Chest Abdomen Pelvis W Contrast Burt Dos Santos MD PhD Phone: tel: fax: [facility] [address] [place] [address] Referral ID Status Reason Start Date Expiration Date Visits Re quested Visits Authorized [id number] Closed 04/10/2018 05/10/2018 1 1 Reason for Visit * Oncology (Routine) - Authorized Specialty Diagnoses / Procedures Referred By Trent delgado Referred To Contact Medical Oncology / Oncology Diagnoses Appt Comment: LAB Procedures RETURN Lenin Ventura MD [address] [address] Phone: tel: fax: Burt Dos Santos MD PhD [id number] [facility] [address] [employer], , [place] [address] Phone: tel: fax: Referral ID Status Reason Start Date Expiration Date V isits Requested Visits Authorized [id number] Authorized 08/02/2017 03/12/2024 99 99 Encounter Details Date Type Department Care Team (Late st Contact Info) Description 08/29/2017 9:15 AM CDT Office Visit [facility] Oncology [address] [facility] 7th [place] [address] [place] [id number] Burt Dos Santos MD PhD [address] [employer], [address] [place] [address] Lymphoma, small lymphocytic (CMS/HCC) (Primary Dx) Social History Tobacco Use Types Packs/Day Years Used Date Smoking Tobacco: Former Smokeless Tobacco: Never Sex and Gender Information Value Date Recorded Sex Assigned at Not on file Legal Sex Male 9:45 AM PARTY COORDINATOR Gender Identity Not on file Sexual Orientation Not on file documented as of this encounter Last Filed Vital Signs Vital Sign Reading Time Taken Comments Blood Pressure 138/82 08/29/2017 10:04 AM CDT Pulse 73 08/29/2017 10:04 AM CDT Temperature 36.8 ??C (98.2 ??F) 08/29/2017 10:04 AM C DT Respiratory Rate 18 08/29/2017 10:04 AM CDT Oxygen Saturation 98% 08/29/2017 10:04 AM CDT Inhaled Oxygen Concentration - - Weight 137.7 kg (303 lb 8 oz) 08/29/2017 10:04 A M CDT Height 193 cm (6' 3.98 ) 08/29/2017 10:04 AM CDT Body Mass Index 36.96 08/29/2017 10:04 AM CDT documented in this encounter Progress Notes * Burt Dos Santos MD PhD - 08/29/2017 9:15 AM CDT ROV Note Oncology History: Lymphoma, small lymphocytic (CMS/HCC) 07/03/2005 Initial Diagnosis [...] then q2mo x 4; on clinical trial [facility] [id number] --> stable disease on CT; marrow 30-40% invovled 09/01/15 Interval History: Mr. Abdullahi returns to the [facility] in continued follow-up of his SLL/CLL, last being seen on 12/20/2016. Since that time, he had a visit with GI who recommended endoscopies, EGD to assessGERD w/ possible esophageal thickening on CT, and colonoscopy for screening. He had a lot of colon polyps, and not much on the upper endoscopy. Mild fatigue continues, and he is working at the [employer] most days. Medications: Current Outpatient Prescriptions Medication Sig Dispense Refill ??? fluticasone (FLONASE) 50 mcg/actuation nasal spray daily. ??? polyethylene glycol (GoLYTELY) 236-22.74-6.74 -5.86 gram solution TAKE DIRECTED. ??? ranitidine (ZANTAC) 150 mg capsule pt states prn No current facility-administered medications for this visit. Physical Exam: Vitals: BP: 138/82, Pulse: 73, Temp: 36.8 ??C (98.2 ??F), SpO2: 98 %, Height: 193 cm (6' 3.98 ), Weight: (!) 137.7 kg (303 lb 8 oz), BSA (Calculated - sq m): 2.71 sq meters Performance Status: ECOG 0 HEENT: sclera clear. [facility] conjunctiva, oropharynx clear. Neck: Supple Cardiovascular regular rate and rhythm, without click, rubs, gallops, or murmurs. Chest: lungs clear to auscultation-bilaterally. Abdomen: Bowel sounds normal. Soft. Non tender. No hepatosplenomegaly. Extremities: No edema. Skin: No worrisome rash. Neuro: No focal neurologic findings. Lymph nodes: Stable bilateral sub mental, cervical LAD. Labs: No visits with results within 3 Day(s) from this visit. Latest known visit with results is: Orders Only on 07/18/2017 Component Date Value Ref Range Status ??? WBC 08/29/2017 7.5 3.8 - 9.8 K/cumm Final ??? RBC 08/29/2017 4.32* 4.50 - 5.70 M/cumm Final ??? Hgb 08/29/2017 14.3 13.8 - 17.2 g/dL Final ??? Hct 08/29/2017 40.3* 40.7 - 50.3 % Final ??? MCV 08/29/2017 93.4 80.0 - 97.6 fL Final ??? MCH 08/29/2017 33.2 26.7 - 33.7 pg Final ??? MCHC 08/29/2017 35.5 32.7 - 35.5 g/dL Final ??? RDW CV 08/29/2017 13.7 11.8 - 14.6 % Final ??? Plt 08/29/2017 189 140 - 440 K/cumm Final ??? MPV 08/29/2017 8.9 6.8 - 10.4 fL Final ??? NRBC Abs 08/29/2017 0.01 0.00 - 0.01 K/cumm Final ??? Neutrophil absolute 08/29/2017 2.9 1.8 - 6.6 K/cumm Final ??? Lymphocytes absolute 08/29/2017 3.8* 1.2 - 3.3 K/cumm Final ??? Monocyte absolute 08/29/2017 0.7 0.2 - 1.2 K/cumm Final ??? Eosinophils absolute 08/29/2017 0.1 0.0 - 0.5 K/cumm Final ??? Basophils, abs 08/29/2017 0.0 0.0 - 0.2 K/cumm Final ??? Neutrophils 08/29/2017 38.5 % Final Comment: Interpretive Data Percent cell count reference ranges are not reported, since discordance with absolute values may lead to misinterpretation of CBC data. Current Interpretive Data was last revised on 2017. ??? Lymphocytes 08/29/2017 50.0 % Final Comment: Interpretive Data Percent cell count reference ranges are not reported, since discordance with absolute values may lead to misinterpretation of CBC data. Current Interpretive Data was last revised on 2017. ??? Monocytes 08/29/2017 9.9 % Final ??? Eosinophils 08/29/2017 1.0 % Final ??? Basophils 08/29/2017 0.6 % Final ??? Lactate dehydrogenase (LDH) 08/29/2017 266* 100 - 250 Units/L Final Testing performed by: [facility], [address] [place]., [address] ??? Sodium 08/29/2017 139 135 - 145 mmol/L Final Testing performed by: [facility], [address] [facility], [address] ??? Potassium, pl 08/29/2017 4.7 3.3 - 4.9 mmol/L Final Testing performed by: [facility], [address] [place] [address], [id number] ??? CO2 08/29/2017 29 22 - 32 mmol/L Final Testing performed by: [facility], [address] [place] [address], [id number] ??? BUN 08/29/2017 21 8 - 25 mg/dL Final Testing performed by: [facility], [address] [place] [address], [id number] ??? Glucose 08/29/2017 132 70 - 199 mg/dL Final Comment: Interpretive Data Fasting glucose >/= 126 mg/dl is diagnostic for diabetes. Fasting is defined as no caloric intake [...] was last revised 2017. Testing performed by: [facility], [address] [place] [address], [id number] ??? Creatinine 08/29/2017 0.95 0.80 - 1.30 mg/dL Final Testing performed by: [facility], [address] [facility], [address] ??? Calcium 08/29/2017 9.5 8.5 - 10.3 mg/dL Final Testing performed by: [facility], [address] [facility], [address] ??? Chloride 08/29/2017 104 97 - 110 mmol/L Final Testing performed by: [facility], [address] [place] [address], [id number] ??? Albumin 08/29/2017 4.1 3.5 - 5.0 g/dL Final Testing performed by: [facility], [address] [facility], [address] ??? AST 08/29/2017 23 10 - 50 Units/L Final Testing performed by: [facility], [address] [place] [address], [id number] ??? ALT 08/29/2017 29 7 - 55 Units/L Final Testing performed by: [facility], [address] [place] [address], [id number] ??? Alk phos 08/29/2017 83 40 - 130 Units/L Final Testing performed by: [facility], [address] [place] [address], [id number] ??? Bilirubin, total 08/29/2017 0.5 0.1 - 1.2 mg/dL Final Testing performed by: [facility], [address] [place] [address], [id number] ??? Protein, pl 08/29/2017 6.7 6.5 - 8.5 g/dL Final Testing performed by: [facility], [address] [place] [address], [id number] ??? Anion Gap 08/29/2017 6 2 - 15 mmol/L Final Testing performed by: [facility], [address] [place] [address], [id number] Assessment/Plan: Mr. Abdullahi is a very pleasant 66-year-old gentleman with SLL who was initially treated with FCR and obtained a 7-year remission. He relapsed and was treated on the ALT-803 plus rituximab clinical trial at the 3 mcg/kg dose level. His disease has been stable. 1. Small lymphocytic lymphoma (SLL), recurrent. Today Mr. Abdullahi has no evidence of progression and doing well. We will continue to follow him expectantly and plan to see him back in 4 months per protocol. His next imaging will be at his next visit in 4 months. 2. Abdominal pain with constipation and fecal urgency. The GI symptoms are being followed and managed by GI, and he saw Dr. Woody. We will continue to monitor. 3. Thyroid nodule. We will continue to follow this expectantly. As always, the patient knows to contact our office with any questions or concerns in the interim. Burt Dos Santos MD PhD documented in this encounter Plan of Treatment Not on file documented as of this encounter Results * (ABNORMAL) CBC with auto differential (04/10/2018 9:39 AM PARTY COORDINATOR) WBC 10.0(H) 3.8 - 9.8 K/cumm [facility] Comment:Testing performed by : [facility], [address] [place] [phone] Hgb 12.8(L) 13.8 - 17.2 g/dL [facility] Comment:Testing performed by : [facility], [address] [place] [phone] Hct 37.7(L) 40.7 - 50.3 % [facility] Comment:Testing performed by : [facility], [address] [place] [phone] Plt 183 140 - 440 K/cumm [facility] Comment:Testing performed by : [facility], [address] [place] [phone] MPV 9.2 6.8 - 10.4 fL [facility] Comment:Testing performed by : [facility], [address] [place] [phone] RBC 3.95(L) 4.50 - 5.70 M/cumm [facility] Comment:Testing performed by : [facility], [address] [place], [place] [phone] MCV 95.3 80.0 - 97.6 fL [facility] Comment:Testing performed by : [facility], [address] [place] [phone] MCH 32.3 26.7 - 33.7 pg [facility] Comment:Testing performed by : [facility], [address] [place], [place] [phone] MCHC 33.9 32.7 - 35.5 g/dL [facility] Comment:Testing performed by : [facility], [address] [place] [phone] RDW CV 14.6 11.8 - 14.6 % [facility] Comment:Testing performed by : [facility], [address] [place] [phone] NRBC abs 0.01 0.00 - 0.01 K/cumm [facility] Comment:Testing performed by : [facility], [address] [place] [phone] Blood specimen (specimen) 04/10/2018 9:39 AM PARTY COORDINATOR 04/10/2018 9:41 AM PARTY COORDINATOR Narrative [facility] - 04/10/2018 9:45 AM PARTY COORDINATOR Burt Dos Santos MD PhD LAB BLOOD ORDERABLES Final Result [facility] Department [place] [address] * (ABNORMAL) Beta 2 microglobulin, serum (04/10/2018 9:39 AM PARTY COORDINATOR) Beta 2 Microglobulin, Serum 3.70(H) 1.00 - 2.50 mg/L [facility] Blood specimen (specimen) 04/10/2018 9:39 AM PARTY COORDINATOR 04/10/2018 10:10 AM PARTY COORDINATOR Narrative [facility] - 04/10/2018 10:49 AM PARTY COORDINATOR Burt Dos Santos MD PhD LAB BLOOD ORDERABLES Final Result Performing Organization Address City/[facility] Co de Phone Number [facility] Department [place] [address] * (ABNORMAL) Lactate dehydrogenase (LD) (04/10/2018 9:39 AM PARTY COORDINATOR) [facility] Lactate dehydrogenase (LDH) 305(H) 100 - 250 Units/L [facility] Blood specimen (specimen) 04/10/2018 9:39 AM PARTY COORDINATOR 04/10/2018 10:10 AM PARTY COORDINATOR Narrative [facility] - 04/10/2018 10:50 AM PARTY COORDINATOR Burt Dos Santos MD PhD LAB BLOOD ORDERABLES Final Result Performing Organization Address [facility] de Phone Number [facility] Department [place] [address] * (ABNORMAL) Comprehensive metabolic panel (04/10/2018 9:39 AM PARTY COORDINATOR) [facility] Sodium 137 135 - 145 mmol/L [facility] Potassium, pl 5.0(H) 3.3 - 4.9 mmol/L [facility] Chloride 103 97 - 110 mmol/L [facility] CO2 27 22 - 32 mmol/L [facility] Anion gap 7 2 - 15 mmol/L [facility] BUN 18 8 - 25 mg/dL [facility] Creatinine 1.07 0.80 - 1.30 mg/dL [facility] Glucose 153 70 - 199 mg/dL [facility] Comment: Interpretive Data Fasting glucose [...] 2017. Calcium 9.0 8.5 - 10.3 mg/dL [facility] Bilirubin, total 0.4 0.1 - 1.2 mg/dL [facility] Protein, pl 6.0(L) 6.5 - 8.5 g/dL [facility] Albumin 3.9 3.5 - 5.0 g/dL [facility] Alk phos 90 40 - 130 Units/L [facility] ALT 27 7 - 55 Units/L [facility] AST 32 10 - 50 Units/L [facility] Blood specimen (specimen) 04/10/2018 9:39 AM PARTY COORDINATOR 04/10/2018 10:10 AM PARTY COORDINATOR Narrative [facility] - 04/10/2018 10:50 AM PARTY COORDINATOR Burt Dos Santos MD PhD LAB BLOOD ORDERABLES Final Result [facility] [place] [address] * CT Chest Abdomen Pelvis W Contrast (04/10/2018 8:43 AM PARTY COORDINATOR) Anatomical Region Laterality Modality Body N/A Computed Tomogra phy 04/10/2018 10:1 4 AM PARTY COORDINATOR Impressions 04/10/2018 11:49 AM PARTY COORDINATOR 1. ??Worsening lymphadenopathy throughout the abdomen and pelvis along with worsening diffuse mesenteric stranding and masslike mesenteric thickening extending into the right lower abdomen and into the paracolic gutters is compatible with disease progression. 2. ??Interval splenic enlargement compared to the prior study. Dictated by: Azam Farooq M.D. Electronically signed by: Dory Saunders M.D. Narrative 04/10/2018 11:49 AM PARTY COORDINATOR EXAMINATION: ??Computed tomography of the chest, abdomen and pelvis with intravenous contrast HISTORY: Small lymphocytic lymphoma TECHNIQUE: ??Transaxial computed tomographic images of the chest, abdomen and pelvis were obtained with intravenous contrast according to the standard protocol after the uneventful administration of 150 mL Opti-Ray 350 intravenous contrast. COMPARISON: 12/20/2016. FINDINGS: ?? Chest: Heart size is normal. ??There is no pericardial effusion. ??The aorta and great vessels are normal in course and caliber. ??There is no central pulmonary embolism. ??A left thyroid nodule has decreased in size now measuring less than 1 cm. Redemonstrated is supraclavicular, mediastinal, hilar, and axillary lymphadenopathy. ??A right paratracheal lymph node (slice position -524.5) has slightly increased in size now measuring 1.6 cm in short axis, previously 1.3 cm, and appears similar in configuration to the prior study. ??A subcarinal lymph node conglomerate (slice position -582.5) appears unchanged in size measuring 1.7 cm in short axis diameter, previously 1.7 cm. ??Some calcified lymph nodes are seen within the mediastinum and right hilum which are likely secondary to old granulomatous disease. There is mild bibasilar atelectasis. ??No focal pulmonary consolidation is present. ??No pleural effusion or pneumothorax. ?? Abdomen/Pelvis: There are no focal liver lesions. ??Cholecystectomy clips are present. There is no intra or extrahepatic biliary ductal dilation. ??The pancreas is normal. ??Multiple punctate calcifications are present within the spleen compatible with old granulomatous disease. ??The spleen has enlarged compared to the prior study now measuring approximately 15.1 cm, previously 12.6 cm. ??The adrenal glands are thickened bilaterally without discrete adrenal nodule. ??The kidneys enhance normally without hydronephrosis. ??A left lower pole renal calculus is redemonstrated measuring approximately 1.4 cm, unchanged. An additional tiny left renal calculus is seen. ??The urinary bladder is normal. ??Calcifications are seen within the prostate. There is no bowel thickening or evidence of obstruction. There is interval increase in diffuse mesenteric stranding throughout the central abdomen extending to the right along the paracolic gutter which is increased in extent and density compared to the prior study. There are intervally enlarged mesenteric and pelvic lymphadenopathy compared to the prior study. ??For example a periportal lymph node now measures 8.8 cm x 4.0 cm, previously 7.9 cm x 2.3 cm (slice position -770.5). ??A left common iliac lymph node now measures 3.0 cm x 3.0 cm, previously 2.7 cm x 2.3 cm (slice position -944.5). ??A right external iliac lymph node measures 5.2 cm x 2.7 cm, previously 5.0 cm x 2.4 cm (slice position -1062.5). ??A left inguinal lymph node (slice position -1094.5) measures 2.9 cm x 2.2 cm, previously 2.8 cm x 1.9 cm. The abdominal vessels are patent. ??A retroaortic left renal vein is incidentally noted. There are changes of anterior cervical discectomy and fusion. ??There are degenerative changes throughout the spine. ??No destructive osseous lesions are identified. Procedure Note Dory Saunders MD - 04/10/2018 EXAMINATION: Computed tomography of the chest, abdomen and pelvis with intravenous contrast HISTORY: Small lymphocytic lymphoma TECHNIQUE: Transaxial computed tomographic images of the chest, abdomen and pelvis were obtained with intravenous contrast according to the standard protocol after the uneventful administration of 150 mL Opti-Ray 350 intravenous contrast. COMPARISON: 12/20/2016. FINDINGS: Chest: Heart size is normal. There is no pericardial effusion. The aorta and great vessels are normal in course and caliber. There is no central pulmonary embolism. A left thyroid nodule has decreased in size now measuring less than 1 cm. Redemonstrated is supraclavicular, mediastinal, hilar, and axillary lymphadenopathy. A right paratracheal lymph node (slice position -524.5) has slightly increased in size now measuring 1.6 cm in short axis, previously 1.3 cm, and appears similar in configuration to the prior study. A subcarinal lymph node conglomerate (slice position -582.5) appears unchanged in size measuring 1.7 cm in short axis diameter, previously 1.7 cm. Some calcified lymph nodes are seen within the mediastinum and right hilum which are likely secondary to old granulomatous disease. There is mild bibasilar atelectasis. No focal pulmonary consolidation is present. No pleural effusion or pneumothorax. Abdomen/Pelvis: There are no focal liver lesions. Cholecystectomy clips are present. There is no intra or extrahepatic biliary ductal dilation. The pancreas is normal. Multiple punctate calcifications are present within the spleen compatible with old granulomatous disease. The spleen has enlarged compared to the prior study now measuring approximately 15.1 cm, previously 12.6 cm. The adrenal glands are thickened bilaterally without discrete adrenal nodule. The kidneys enhance normally without hydronephrosis. A left lower pole renal calculus is redemonstrated measuring approximately 1.4 cm, unchanged. An additional tiny left renal calculus is seen. The urinary bladder is normal. Calcifications are seen within the prostate. There is no bowel thickening or evidence of obstruction. There is interval increase in diffuse mesenteric stranding throughout the central abdomen extending to the right along the paracolic gutter which is increased in extent and density compared to the prior study. There are intervally enlarged mesenteric and pelvic lymphadenopathy compared to the prior study. For example a periportal lymph node now measures 8.8 cm x 4.0 cm, previously 7.9 cm x 2.3 cm (slice position -770.5). A left common iliac lymph node now measures 3.0 cm x 3.0 cm, previously 2.7 cm x 2.3 cm (slice position -944.5). A right external iliac lymph node measures 5.2 cm x 2.7 cm, previously 5.0 cm x 2.4 cm (slice position -1062.5). A left inguinal lymph node (slice position -1094.5) measures 2.9 cm x 2.2 cm, previously 2.8 cm x 1.9 cm. The abdominal vessels are patent. A retroaortic left renal vein is incidentally noted. There are changes of anterior cervical discectomy and fusion. There are degenerative changes throughout the spine. No destructive osseous lesions are identified. IMPRESSION: 1. Worsening lymphadenopathy throughout the abdomen and pelvis along with worsening diffuse mesenteric stranding and masslike mesenteric thickening extending into the right lower abdomen and into the paracolic gutters is compatible with disease progression. 2. Interval splenic enlargement compared to the prior study. Dictated by: Azam Farooq M.D. Electronically signed by: Dory Saunders M.D. Burt Dos Santos MD PhD IMG CT PROCEDURES Fi nal Result documented in this encounter Visit Diagnoses Diagnosis Lymphoma, small lymphocytic (HCC)- Primary Lymphosarcoma, unspecified site, extranodal and solid organ sites Lymphoma, small lymphocytic (HCC) Lymphosarcoma, unspecified site, extranodal and solid organ sites Lymphoma, small lymphocytic (HCC) Lymphosarcoma, unspecified site, extranodal and solid organ sites documented in this encounter Historical Medications * This list may reflect changes made after this encounter. fluticasone (FLONASE) 50 mcg/actuation nasal spray Administer 2 sprays into each nostril daily 03/08/2015 ranitidine (ZANTAC) 150 mg capsule Take 150 mg by mouth daily 0 polyethylene glycol (GoLYTELY) 236-22.74-6.74 -5.86 gram solutionIndicati ons:Bowel Evacuation TAKE DIRECTED. 01/01/2017 0 added in this encounter Additional Health Concerns Infection Onset Date Last Indicated Resolved Time C. difficile Comment:Backloaded December 21, 2010 09/21/2010 09/21/2010 documented as of this encounter Care Teams Ceo & Founder Relationship Specialty Start Date End Date Lenin Ventura MD [address] [place] [id number] PCP - General 07/06/16 Lenin Ventura MD [address] [place] [id number] 07/06/16 documented as of this encounter
--- OUTSIDE RECORDS SUMMARY | 2024-02-22 08:33 | XMS_ITS | Encounter Summary ---
Author Organization [facility] Healthcare Address [address] [place] [address] Care Team Providers Care Safety Council Director Name Role Phone Lenin Ventura MD Primary Care Provider [phone] Lenin Ventura MD Unavailable [phone] Encounter Details Date Type Department Care Team (Latest Contact Info) Description 12/19/2016 9:16 AM CDT - 12/20/2016 11:59 PM CDT Hospital Encounter [facility] OP INTERIM [phone] Burt Dos Santos MD PhD [address] DIV IM BONE MARROW TRANSPLANT, [address] [place], [place] [id number] Discharge Disposition: Discharge to home or self care Social History Tobacco Use Types Packs/Day Years Used Date Smoking Tobacco: Never Assessed Sex and Gender Information Value Date Recorded Sex Assigned at Not on file 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 Gender Identity Not on file Sexual Orientation Not on file documented as of this encounter Medications at Time of Discharge fluticasone (FLONASE) 50 mcg/actuation nasal spray Administer 2 sprays into each nostril daily 03/08/2015 documented as of this encounter Discharge Disposition Disposition Code Departure Means Destination Discharge to home or self care documented in this encounter Plan of Treatment Not on file documented as of this encounter Procedures Procedure Name Priority Date/Time Associated Diagnosis Comments CBC WITH AUTO DIFFERENTIAL Routine Gen Lab 12/20/2016 9:18 AM CDT LACTATE DEHYDROGENASE Routine Gen Lab 12/20/2016 9:12 AM CDT COMPREHENSIVE METABOLIC PANEL Routine Gen Lab 12/20/2016 9:12 AM CDT DISCHARGE LABORATORY CUMULATIVE REPORT 12/19/2016 12:00 AM CDT documented in this encounter Results * (ABNORMAL) CBC with auto differential (12/20/2016 9:18 AM CDT) [facility] WBC 7.2 3.8 - 9.8 K/cumm [facility] RBC 4.46(L) 4.50 - 5.70 M/cumm [facility] Hgb 14.2 13.8 - 17.2 g/dL [facility] Hct 41.0 40.7 - 50.3 % [facility] Mean Cellular Volume - CAM 91.8 80.0 - 97.6 fL [facility] Mean Cellular Hemoglobin - CAM 31.9 26.7 - 33.7 pg [facility] Mean Cellular Hemoglobin Concentration - CAM 34.7 32.7 - 35.5 g/dL [facility] Rdw 13.2 11.8 - 14.6 % [facility] Plt 219 140 - 440 K/cumm [facility] Mean Platelet Volume - CAM 8.7 6.8 - 10.4 fL [facility] Neutrophil pct 53.3 38.7 - 74.5 % [facility] Lymphocyte pct 34.6 20.0 - 54.3 % [facility] Monos 11.0 4.3 - 13.5 % [facility] Eosinophil pct 0.8 0.0 - 6.0 % [facility] Basophil pct 0.3 0.0 - 3.0 % [facility] Neutrophil abs 3.8 1.8 - 6.6 K/cumm [facility] Lymphocyte abs 2.5 1.2 - 3.3 K/cumm [facility] Monocyte abs 0.8 0.2 - 1.2 K/cumm [facility] Eosinophils, abs 0.1 0.0 - 0.5 K/cumm [facility] Basophil abs 0.0 0.0 - 0.2 K/cumm [facility] NRBC 0.0 0.0 - 0.2 % [facility] NRBC abs 0.00 0.00 - 0.01 K/cumm [facility] Blood specimen (specimen) 12/20/2016 9:18 AM CDT 12/20/2016 9:21 AM CDT us Burt Dos Santos MD PhD LAB BLOOD ORDERABLES Final Result Performing Organization Address [facility]/ZIP Co de Phone Number [facility] Department [place] [address] * (ABNORMAL) Comprehensive metabolic panel (12/20/2016 9:12 AM CDT) [facility] Sodium 135 135 - 145 mmol/L [facility] Potassium, pl 4.3 3.3 - 4.9 mmol/L [facility] CO2 25 22 - 32 mmol/L [facility] BUN 14 8 - 25 mg/dL [facility] Glucose 127 70 - 199 mg/dL [facility] Creatinine 0.89 0.80 - 1.30 mg/dL [facility] Calcium 8.5 8.5 - 10.3 mg/dL [facility] Chloride 102 97 - 110 mmol/L [facility] Albumin 4.1 3.5 - 5.0 g/dL [facility] AST 28 10 - 50 Units/L [facility] ALT 43 7 - 55 Units/L [facility] Alk phos 77 40 - 130 Units/L [facility] Bilirubin, total 0.6 0.1 - 1.2 mg/dL [facility] Protein, pl 6.2(L) 6.5 - 8.5 g/dL [facility] Anion gap 8 2 - 15 mmol/L [facility] Blood specimen (specimen) 12/20/2016 9:12 AM CDT 12/20/2016 9:37 AM CDT Burt Dos Santos MD PhD LAB BLOOD ORDERABLES Final Result Performing Organization Address City/[facility]/ZIP Co de Phone Number [facility] Department [place] [address] * Lactate dehydrogenase (LD) (12/20/2016 9:12 AM CDT) Lactate dehydrogenase (LDH) 200 100 - 250 Units/L [facility] Blood specimen (specimen) 12/20/2016 9:12 AM CDT 12/20/2016 9:37 AM CDT Burt Dos Santos MD PhD LAB BLOOD ORDERABLES Final Result [facility] Department [place] [address] * DISCHARGE LABORATORY CUMULATIVE REPORT (12/19/2016 12:00 AM CDT) Narrative 12/19/2016 12:00 AM CDT Ordered by an unspecified provider. Historical Provider LAB BLOOD ORDERABLES Virginia l Result documented in this encounter Visit Diagnoses Not on filedocumented in this encounter Additional Health Concerns Infection Onset Date Last Indicated Resolved Time C. difficile Comment:Backloaded December 21, 2010 09/21/2010 09/21/2010 documented as of this encounter Care Teams Safety Council Director Relationship Specialty Start Date End Date Lenin Ventura MD [address] [address] PCP - General 07/06/16 Lenin Ventura MD [address] [address] 07/06/16 documented as of this encounter
--- OUTSIDE RECORDS SUMMARY | 2024-02-22 08:33 | XMS_ITS | Encounter Summary ---
Author Organization [facility] Address [address] [place] [address] Phone Care Team Providers Care Screedman/Laborer Name Role Phone Lenin Ventura MD Primary Care Provider [phone] Lenin Ventura MD Unavailable [phone] Encounter Details Date Type Department Care Team (Late st Contact Info) Description 03/17/2019 Orders Only [facility] Bone Marrow Transplant [address] [facility] Advanced [facility] 7th Floor, [place] [address] Yolanda Goel RMA Social History Tobacco Use Types Packs/Day Years Used Date Smoking Tobacco: Former Smokeless Tobacco: Never Sex and Gender Information Value Date Recorded Sex Assigned at Not on file 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 difficile Comment:Backloaded December 21, 2010 09/21/2010 09/21/2010 documented as of this encounter Care Teams Screedman/Laborer Relationship Specialty Start Date End Date Lenin Ventura MD [address] [address] PCP - General 07/06/16 Lenin Ventura MD [address] [address] 07/06/16 documented as of this encounter
--- OUTSIDE RECORDS SUMMARY | 2024-02-22 08:33 | XMS_ITS | Encounter Summary ---
Author Organization [facility] Address [address] [place] [address] Phone Care Team Providers Care Stave Machine Tender Name Role Phone Lenin Ventura MD Primary Care Provider [phone] Lenin Ventura MD Unavailable [phone] Reason for Visit * Oncology (Routine) - Authorized Specialty Diagnoses / Procedures Referred By Contac t Referred To Contact Medical Oncology / Oncology Diagnoses Appt Comment: LAB Procedures RETURN Lenin Ventura MD [address] [facility] [address] [place] [address] Phone: tel: fax: Burt Dos Santos MD PhD [id number] [facility] [place] [address] DIV IM BONE MARROW TRANSPLANT, [address] [place] [address] Phone: tel: fax: Referral ID Status Reason Start Date Expiration Date V isits Requested Visits Authorized [id number] Authorized 08/02/2017 03/12/2024 99 99 Encounter Details Date Type Department Care Team (Late st Contact Info) Description 04/10/2018 10:15 AM ENTRY LEVEL CHEMIST Office Visit [facility] Oncology [address] [facility] 7th [place] [address] [place] [id number] Burt Dos Santos MD PhD [address] DIV IM BONE MARROW TRANSPLANT, [address] [place] [address] Lymphoma, small lymphocytic (CMS/HCC) (Primary Dx) Social History Tobacco Use Types Packs/Day Years Used Date Smoking Tobacco: Former Smokeless Tobacco: Never Sex and Gender Information Value Date Recorded Sex Assigned at Not on file 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 Gender Identity Not on file Sexual Orientation Not on file documented as of this encounter Last Filed Vital Signs Vital Sign Reading Time Taken Comments Blood Pressure 116/69 04/10/2018 9:49 AM ENTRY LEVEL CHEMIST Pulse 84 04/10/2018 9:49 AM ENTRY LEVEL CHEMIST Temperature 36.7 ??C (98.1 ??F) 04/10/2018 9:49 AM CS T Respiratory Rate 18 04/10/2018 9:49 AM ENTRY LEVEL CHEMIST Oxygen Saturation 98% 04/10/2018 9:49 AM ENTRY LEVEL CHEMIST Inhaled Oxygen Concentration - - Weight 137 kg (302 lb) 04/10/2018 9:49 AM ENTRY LEVEL CHEMIST Height 192.4 cm (6' 3.75 ) 04/10/2018 9:49 AM CS T Body Mass Index 37.01 04/10/2018 9:49 AM ENTRY LEVEL CHEMIST documented in this encounter Progress Notes * Magali Stapleton, WHEEL INSTALLER - 04/10/2018 10:15 AM CST BMT Progress Note Lymphoma, small lymphocytic (CMS/HCC) 07/03/2005 Initial Diagnosis [...] x 4; [place] clinical [place] [facility] [id number] --> stable disease on CT; marrow 30-40% invovled 09/01/15 Subjective Interval History Mr. Abdullahi returns for scheduled follow up. He is feeling well today. He denies fevers, chills, night sweats. He has stable energy and appetite. He denies any pain. He has been off treatment 2.5 years. Outpatient Encounter Prescriptions as of 04/10/2018: ??? fluticasone (FLONASE) 50 mcg/actuation nasal spray, daily., Disp: , Rfl: ??? ranitidine (ZANTAC) 150 mg capsule, pt states prn, Disp: , Rfl: ??? HYDROcodone-acetaminophen (NORCO) 5-325 mg per tablet, , Disp: , Rfl: 0 ??? polyethylene glycol (GoLYTELY) 236-22.74-6.74 -5.86 gram solution, TAKE DIRECTED., Disp: , Rfl: Facility-Administered Encounter Medications as of 04/10/2018: ??? [COMPLETED] ioversol (OPTIRAY 350) syringe syringe 100 mL, 100 mL, intravenous, Once in imaging, Burt Dos Santos MD PhD, 100 mL at 04/10/18 0849 ??? [COMPLETED] ioversol (OPTIRAY 350) syringe syringe 50 mL, 50 mL, intravenous, Once in imaging, Burt Dos Santos MD PhD, 50 mL at 04/10/18 0855 Performance Status: 1 Objective Vitals: BP: 116/69 Temp: 36.7 ??C (98.1 ??F) Temp src: Oral Pulse: 84 Resp: 18 SpO2: 98 % Height: 192.4 cm (6' 3.75 ) Weight: 137 kg (302 lb) Physical exam: In no acute distress HEENT:schlera white Lungs:CTA tawny Heart:RRR Abdomen:soft, non-tender Extremities:no edema Skin:no rash Neuro:no focal deficits Nodes:no lymphadenopathy Lab/Radiology/Diagnostic Review: CBC: Lab Results Component Value Date/Time WBC 10.0 (H) 04/10/2018 09:39 AM HGB 12.8 (L) 04/10/2018 09:39 AM HCT 37.7 (L) 04/10/2018 09:39 AM LABPLAT 183 04/10/2018 09:39 AM NEUTROABS 3.1 04/10/2018 09:39 AM CMP: Lab Results Component Value Date/Time SODIUM 137 04/10/2018 09:39 AM POTASSIUM 5.0 (H) 04/10/2018 09:39 AM CO2 27 04/10/2018 09:39 AM BUNSER 18 04/10/2018 09:39 AM GLUCOSE 153 04/10/2018 09:39 AM CREATININE 1.07 04/10/2018 09:39 AM CALCIUM 9.0 04/10/2018 09:39 AM CHLORIDE 103 04/10/2018 09:39 AM ALBUMIN 3.9 04/10/2018 09:39 AM AST 32 04/10/2018 09:39 AM ALT 27 04/10/2018 09:39 AM ALKPHOS 90 04/10/2018 09:39 AM BILITOT 0.4 04/10/2018 09:39 AM PROT 6.0 (L) 04/10/2018 09:39 AM ANIONGAP 7 04/10/2018 09:39 AM LDH: Lab Results Component Value Date/Time LDH 305 (H) 04/10/2018 09:39 AM Radiology: IMPRESSION: Interval worsened cervical lymphadenopathy involving all stations of the neck. IMPRESSION: 1. Worsening lymphadenopathy throughout the abdomen and pelvis along with worsening diffuse mesenteric stranding and masslike mesenteric thickening extending into the right lower abdomen and into the paracolic gutters is compatible with disease progression. ?? 2. Interval splenic enlargement compared to the prior study. Assessment and Plan: Mr. Abdullahi is a very pleasant 67-year-old gentleman with SLL who was initially treated with FCR and obtained a 7-year remission. ??He relapsed and was treated on the ALT-803 plus rituximab clinical trial at the 3 mcg/kg dose level. ??His disease has been stable. ? 1.?Small lymphocytic lymphoma (SLL), recurrent.?Today Mr. Abdullahi has evidence of progression by CT scans done today. However, he remains asymptomatic and it has not been a greater than 50% increase in the lymph nodes. His WBC is slightly increased at 10K and hemoglobin slightly decreased at 12.8. We will bring him back at 3 months for further evaluation. Should he show signs of increasedprogression we plan on starting him on ibrutinib. ?2.?Abdominal pain with constipation and fecal urgency.?The GI symptoms are being followedand managed by GI, and he saw Dr. Woody. We will continue to monitor. ?3.?Thyroid nodule.?We will continue to follow this expectantly. ?? As always, the patient knows to contact our office with any questions or concerns in the interim. Cosigned by Burt Dos Santos MD PhD at 04/10/2018 9:25 PM ENTRY LEVEL CHEMIST Y LEVEL CHEMIST Y LEVEL CHEMIST documented in this encounter Plan of Treatment Not on file documented as of this encounter Results * Lactate dehydrogenase (LD) (07/10/2018 9:07 AM CDT) Pathologist [facility] Lactate dehydrogenase (LDH) 240 100 - 250 Units/L [facility] Blood specimen (specimen) 07/10/2018 9:07 AM CDT 07/10/2018 9:47 AM CDT Narrative [facility] - 07/10/2018 10:22 AM CDT Magali Stapleton WHEEL INSTALLER LAB BLOOD ORDERABLES Final Res ult [facility] [place] [address] * (ABNORMAL) Comprehensive metabolic panel (07/10/2018 9:07 AM CDT) [facility] Sodium 139 135 - 145 mmol/L [facility] Potassium, pl 4.4 3.3 - 4.9 mmol/L [facility] Chloride 103 97 - 110 mmol/L [facility] CO2 29 22 - 32 mmol/L [facility] Anion gap 7 2 - 15 mmol/L [facility] BUN 15 8 - 25 mg/dL [facility] Creatinine 0.99 0.80 - 1.30 mg/dL [facility] Glucose 165 70 - 199 mg/dL [facility] Comment: Interpretive Data Fasting glucose [...] 2017. Calcium 9.5 8.5 - 10.3 mg/dL [facility] Bilirubin, total 0.5 0.1 - 1.2 mg/dL [facility] Protein, pl 6.2(L) 6.5 - 8.5 g/dL [facility] Albumin 4.2 3.5 - 5.0 g/dL [facility] Alk phos 70 40 - 130 Units/L [facility] ALT 24 7 - 55 Units/L [facility] AST 21 10 - 50 Units/L [facility] Blood specimen (specimen) 07/10/2018 9:07 AM CDT 07/10/2018 9:47 AM CDT [facility]ative [facility] - 07/10/2018 10:22 AM CDT us Magali Stapleton WHEEL INSTALLER LAB BLOOD ORDERABLES Final Res ult [facility] [place] [address] * (ABNORMAL) CBC with auto differential (07/10/2018 9:05 AM CDT) WBC 23.1(H) 3.8 - 9.8 K/cumm [facility] Comment:Testing performed by : [facility], [address] [place] [phone] Hgb 12.1(L) 13.8 - 17.2 g/dL [facility] Comment:Testing performed by : [facility], [address] [place] [phone] Hct 36.0(L) 40.7 - 50.3 % [facility] Comment:Testing performed by : [facility], [address] [place] [phone] Plt 136(L) 140 - 440 K/cumm [facility] Comment:Testing performed by : [facility], [address] [place], [place] [phone] MPV 10.3 6.8 - 10.4 fL [facility] Comment:Testing performed by : [facility], [address] [place] [address] RBC 3.70(L) 4.50 - 5.70 M/cumm [facility] Comment:Testing performed by : [facility], [address] [place] [address] MCV 97.3 80.0 - 97.6 fL [facility] Comment:Testing performed by : [facility], [address] [place] [address] MCH 32.7 26.7 - 33.7 pg [facility] Comment:Testing performed by : [facility], [address] [place] [address] MCHC 33.6 32.7 - 35.5 g/dL [facility] Comment:Testing performed by : [facility], [address] [place], [place] [phone] RDW CV 15.7(H) 11.8 - 14.6 % [facility] Comment:Testing performed by : [place] [id number] NRBC abs 0.05(H) 0.00 - 0.01 K/cumm [facility] Comment:Testing performed by : [facility], [address] [place], [place] [phone] Blood specimen (specimen) 07/10/2018 9:05 AM CDT 07/10/2018 9:08 AM CDT Narrative [facility] - 07/10/2018 9:11 AM CDT us Magali Stapleton NP LAB BLOOD ORDERABLES Final Res ult [facility] Department [place] [address] documented in this encounter Visit Diagnoses Diagnosis Lymphoma, small lymphocytic (HCC)- Primary Lymphosarcoma, unspecified site, extranodal and solid organ sites Lymphoma, small lymphocytic (HCC) Lymphosarcoma, unspecified site, extranodal and solid organ sites documented in this encounter Orders Appointment Requests Count Last Ordered Date Fi rst Ordered Date ONCBCN CLINIC APPOINTMENT REQUEST 1 019 ONCBCN LAB APPOINTMENT 1 07/10/2018 documented in this encounter Additional Health Concerns Infection Onset Date Last Indicated Resolved Time C. difficile Comment:Backloaded December 21, 2010 09/21/2010 09/21/2010 documented as of this encounter Care Teams Stave Machine Tender Relationship Specialty Start Date End Date Lenin Ventura MD [address] [place] [address] PCP - General 07/06/16 Lenin Ventura MD [address] [place] [address] 07/06/16 documented as of this encounter
--- OUTSIDE RECORDS SUMMARY | 2024-02-22 08:33 | XMS_ITS | Encounter Summary ---
Author Organization [facility] Address [address] [place] [address] Phone Care Team Providers Care Registered Private Duty Nurse Name Role Phone Lenin Ventura MD Primary Care Provider [phone] Lenin Ventura MD Unavailable [phone] Reason for Visit * Reason Onset Date Comments rosa pa approval 05/20/2019 Encounter Details Date Type Department Care Team (Late st Contact Info) Description 05/20/2019 Documentation [facility] Bone Marrow Transplant [address] [facility] Advanced Medicine 7th Floor, [place] [address] Yolanda Goel RMA [email or web address] pa approval Social History Tobacco Use Types Packs/Day Years Used Date Smoking Tobacco: Former Smokeless Tobacco: Never Sex and Gender Information Value Date Recorded Sex Assigned at Not on file 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 difficile Comment:Backloaded December 21, 2010 09/21/2010 09/21/2010 documented as of this encounter Care Teams Registered Private Duty Nurse Relationship Specialty Start Date End Date Lenin Ventura MD [address] [address] PCP - General 07/06/16 Lenin Ventura MD [address] [address] 07/06/16 documented as of this encounter
--- OUTSIDE RECORDS SUMMARY | 2024-02-22 08:33 | XMS_ITS | Encounter Summary ---
Author Organization [facility] Address [address] [place] [address] Phone Care Team Providers Care Ice Maker Name Role Phone Lenin Ventura MD Primary Care Provider [phone] Lenin Ventura MD Unavailable [phone] Encounter Details Date Type Department Care Team (Late st Contact Info) Description 05/23/2018 Telephone [facility] Bone Marrow Transplant [address] 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 [email or web address] sent update on05/23/18 stating the following: Hi June, We ran this claim through [employer] which left a copay of $2541.90. We spoke with the patient and he provided us with his secondary insurance [employer] which he wanted us to process as well. We processed it but [employer] is stating that patient needs to call them to confirm that he has Primary insurance through [employer] so that they can bennie his [employer] down as secondary. The patient informed he called Brandon on 05/21 and Brandon said we can reprocess in 24-48hours. We reprocessed today and it is still rejecting. I called [facility] for a status update and they do not show that patient has called to verifythis information yet. I left the patient a message to see if he can follow up with Brandon today and call me back. I am thinking that [facility] is going to require a prior authorization when it does go through. documented in this encounter Plan of Treatment Not on file documented as of this encounter Visit Diagnoses Not on filedocumented in this encounter Additional Health Concerns Infection Onset Date Last Indicated Resolved Time C. difficile Comment:Backloaded December 21, 2010 09/21/2010 09/21/2010 documented as of this encounter Care Teams Ice Maker Relationship Specialty Start Date End Date Lenin Ventura MD [email or web address] [address] PCP - General 07/06/16 Lenin Ventura MD [address] [place] [address] 07/06/16 documented as of this encounter
--- OUTSIDE RECORDS SUMMARY | 2024-02-22 08:33 | XMS_ITS | Encounter Summary ---
Author Organization [facility] Address [address] [place] [address] Phone Care Team Providers Care Access Director Name Role Phone Lenin Ventura MD Primary Care Provider [phone] Lenin Ventura MD Unavailable [phone] Reason for Visit * Reason Onset Date Comments Review Medications 05/26/2018 Imbruvica Encounter Details Date Type Department Care Team (Late st Contact Info) Description 05/26/2018 Telephone [facility] Bone Marrow Transplant [address] [facility] 7th Floor, [place] [address] Josie Mejia, practical nursing instructor Medications (Imbruvica) Social History Tobacco Use Types Packs/Day Years Used Date Smoking Tobacco: Former Smokeless Tobacco: Never Sex and Gender Information Value Date Recorded Sex Assigned at Not on file 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 He knows to call with any symptoms and verbalized understanding of plan moving forward. Will send a requisition to have labs obtained one week from when he starts the drug. He will call me the day he has labs drawn. Patient should receive medication mid to late this week. documented in this encounter Plan of Treatment Scheduled Orders Name Type Priority Associated Diagnoses Orde r Schedule CBC with auto differential Lab Routine CLL (chronic lymphocytic leukemia) ([facility]/HCC) Expected: 06/04/2018 (Approximate), Expires: 05/27/2019 Lactate dehydrogenase (LD) Lab Routine CLL (chronic lymphocytic leukemia) (CMS/HCC) Expected: 06/04/2018 (Approximate), Expires: 05/27/2019 documented as of this encounter Visit Diagnoses Diagnosis CLL (chronic lymphocytic leukemia) (HCC)- Primary Chronic lymphoid leukemia, without mention of having achieved remission Lymphoma, small lymphocytic (HCC) Lymphosarcoma, unspecified site, extranodal and solid organ sites documented in this encounter Additional Health Concerns Infection Onset Date Last Indicated Resolved Time C. difficile Comment:Backloaded December 21, 2010 09/21/2010 09/21/2010 documented as of this encounter Care Teams Access Director Relationship Specialty Start Date End Date Lenin Ventura MD [email or web address] [address] PCP - General 07/06/16 Lenin Ventura MD [email or web address] [address] 07/06/16 documented as of this encounter
--- OUTSIDE RECORDS SUMMARY | 2024-02-22 08:33 | XMS_ITS | Encounter Summary ---
Author Organization [facility] Address [address] [place] [address] Phone Care Team Providers Care Pressure Testing Technician Name Role Phone Lenin Ventura MD Primary Care Provider [phone] Lenin Ventura MD Unavailable [phone] Encounter Details Date Type Department Care Team (Late st Contact Info) Description 06/15/2019 Orders Only [facility] Bone Marrow Transplant [address] [facility] Advanced Medicine 7th Floor, [place] [address] Burt Dos Santos MD PhD [address] IM BONE MARROW TRANSPLANT, [address] [place], [place] [id number] CLL (chronic lymphocytic leukemia) (CMS/HCC) (Primary Dx) Social History Tobacco Use Types Packs/Day Years Used Date Smoking Tobacco: Former Smokeless Tobacco: Never Alcohol Use Standard Drinks/Week Comments Not Currently 0 (1 standard drink = 0.6 oz pur e alcohol) Sex and Gender Information Value Date Recorded Sex Assigned at Not on file 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 Gender Identity Not on file Sexual Orientation Not on file documented as of this encounter Plan of Treatment Not on file documented as of this encounter Results * (ABNORMAL) CBC with auto differential (06/25/2019 10:09 AM CDT) WBC 21.2(H) 3.8 - 9.8 K/cumm [facility] Comment:Testing performed by : [facility], [address] [place] [address] Hgb 13.4(L) 13.8 - 17.2 g/dL [facility] Comment:Testing performed by : [place] [address] Hct 40.0(L) 40.7 - 50.3 % [facility] Comment:Testing performed by : [facility], [address] [place] [address] Plt 215 140 - 440 K/cumm [facility] Comment:Testing performed by : [place] [address] MPV 9.8 6.8 - 10.4 fL [facility] Comment:Testing performed by : [place] [address] RBC 4.12(L) 4.50 - 5.70 M/cumm [facility] Comment:Testing performed by : [place] [address] MCV 97.1 80.0 - 97.6 fL [facility] Comment:Testing performed by : [place] [address] MCH 32.5 26.7 - 33.7 pg [facility] Comment:Testing performed by : [place] [address] MCHC 33.5 32.7 - 35.5 g/dL [facility] Comment:Testing performed by : [place] [address] RDW CV 17.0(H) 11.8 - 14.6 % [facility] Comment:Testing performed by : [place] [address] NRBC abs 0.03(H) 0.00 - 0.01 K/cumm [facility] Comment:Testing performed by : [place] [address] Blood specimen (specimen) 06/25/2019 10:09 AM CDT 06/25/2019 10:11 AM CDT Burt Dos Santos MD PhD LAB BLOOD ORDERABLES Final Result Performing Organization Address City/[facility]/ZIP Co de Phone Number [facility] Department [place] [address] * Lactate dehydrogenase (LD) (06/25/2019 10:09 AM CDT) Pathologist [facility] Lactate dehydrogenase (LDH) 186 100 - 250 Units/L [facility] Comment:Testing performed by : [facility], [address] [place] [phone] Blood specimen (specimen) 06/25/2019 10:09 AM CDT 06/25/2019 10:11 AM CDT Burt Dos Santos MD PhD LAB BLOOD ORDERABLES Final Result Performing Organization Address [facility] Co de Phone Number [facility] Department [place] [address] * Comprehensive metabolic panel (06/25/2019 10:09 AM CDT) [facility] Sodium 140 135 - 145 mmol/L [facility] Comment:Testing performed by : [facility], [address] [place] [phone] Potassium, pl 4.8 3.3 - 4.9 mmol/L [facility] Comment:Testing performed by : [facility], [address] [place] [phone] Chloride 101 97 - 110 mmol/L [facility] Comment:Testing performed by : [facility], [address] [place] [phone] CO2 30 22 - 32 mmol/L [facility] Comment:Testing performed by : [facility], [address] [place] [phone] Anion gap 9 2 - 15 mmol/L [facility] Comment:Testing performed by : [facility], [address] [place] [phone] BUN 24 8 - 25 mg/dL [facility] Comment:Testing performed by : [facility], [address] [place] [phone] Creatinine 0.84 0.80 - 1.30 mg/dL [facility] Comment:Testing performed by : [address] [phone] Glucose 83 70 - 199 mg/dL [facility] [...] was last revised 2017. Testing performed by: [place] [phone] Calcium 9.3 8.5 - 10.3 mg/dL [facility] Comment:Testing performed by : [address] [phone] Bilirubin, total 0.4 0.1 - 1.2 mg/dL [facility] Comment:Testing performed by : [address] [phone] Protein, pl 6.7 6.5 - 8.5 g/dL [facility] Comment:Testing performed by : [address] [phone] Albumin 4.3 3.5 - 5.0 g/dL [facility] Comment:Testing performed by : [address] [phone] Alk phos 85 40 - 130 Units/L [facility] Comment:Testing performed by : [place] [phone] ALT 18 7 - 55 Units/L [facility] Comment:Testing performed by : [address] [phone] AST 15 10 - 50 Units/L [facility] Comment:Testing performed by : [facility] [place], [address] [place] [phone] Blood specimen (specimen) 06/25/2019 10:09 AM CDT 06/25/2019 10:11 AM CDT Burt Dos Santos MD PhD LAB BLOOD ORDERABLES Final Result Performing Organization Address City/[facility] Co de Phone Number [facility] [place] [address] * Type and screen (06/25/2019 10:09 AM CDT) ABO Rh O Positive [facility] Calin, indirect Negative [facility] Blood specimen (specimen) 06/25/2019 10:09 AM CDT 06/25/2019 10:41 AM CDT Narrative [facility] - 06/25/2019 11:30 AM CDT Has the patient had Daratumumab (Darzalex) in the past 6 months?->Unknown Burt Dos Santos MD PhD LAB BLOOD BANK TEST ORDERABLES Final Result Performing Organization Address [facility] de Phone Number [facility] [place] [address] documented in this encounter Visit Diagnoses Diagnosis [...] documented as of this encounter Care Teams Pressure Testing Technician Relationship Specialty Start Date End Date Lenin Ventura MD [email or web address] [address] PCP - General 07/06/16 Lenin Ventura MD [address] [address] 07/06/16 documented as of this encounter
--- OUTSIDE RECORDS SUMMARY | 2024-02-22 08:33 | XMS_ITS | Encounter Summary ---
Author Organization [facility] Address [address] [place] [address] Phone Care Team Providers Care Diploma Dental Assistant Name Role Phone Lenin Ventura MD Primary Care Provider [phone] Lenin Ventura MD Unavailable Encounter Details Date Type Department Care Team (Late st Contact Info) Description 05/16/2018 Orders Only [facility] Bone Marrow Transplant [address] [facility] Advanced Medicine 7th Floor, [place] [address] Burt Dos Santos MD PhD [address] DIV IM BONE MARROW TRANSPLANT, [address] [place] [address] Lymphoma, small lymphocytic (CMS/HCC) (Primary Dx) Social History Tobacco Use Types Packs/Day Years Used Date Smoking Tobacco: Former Smokeless Tobacco: Never Sex and Gender Information Value Date Recorded Sex Assigned at Not on file 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 difficile Comment:Backloaded December 21, 2010 09/21/2010 09/21/2010 documented as of this encounter Care Teams Diploma Dental Assistant Relationship Specialty Start Date End Date Lenin Ventura MD [address] [address] PCP - General 07/06/16 Lenin Ventura MD [address] [address] 07/06/16 documented as of this encounter
--- OUTSIDE RECORDS SUMMARY | 2024-02-22 08:33 | XMS_ITS | Encounter Summary ---
Author Organization [facility] Address [address] [place] [address] Phone Care Team Providers Care Space Operations Name Role Phone Lenin Ventura MD Primary Care Provider [phone] Lenin Ventura MD Unavailable [phone] Encounter Details Date Type Department Care Team (Late st Contact Info) Description 04/28/2019 Orders Only [facility] Bone Marrow Transplant [address] [facility] Advanced Medicine 7th Floor, [place] [address] Burt Dos Santos MD PhD [address] DIV IM BONE MARROW TRANSPLANT, [address] [place], [place] [id number] CLL (chronic lymphocytic leukemia) ([facility]/HCC) Social History Tobacco Use Types Packs/Day Years Used Date Smoking Tobacco: Former Smokeless Tobacco: Never Sex and Gender Information Value Date Recorded Sex Assigned at Not on file 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 Gender Identity Not on file Sexual Orientation Not on file documented as of this encounter Ordered Prescriptions Prescription Sig Dispense Quantity Refills Last Filled Start Date End Date acyclovir (ZOVIRAX) 200 mg capsuleIndications :CLL (chronic lymphocytic leukemia) (HCC) Take 2 capsules by mouth twice daily 180 capsule 3 04/28/2019 0 documented in this encounter Plan of Treatment Not on file documented as of this encounter Visit Diagnoses Diagnosis CLL (chronic lymphocytic leukemia) (HCC) Chronic lymphoid leukemia, without mention of having achieved remission documented in this encounter Discontinued Medications Medication Sig Discontinue Reason Start Date End Da te acyclovir (ZOVIRAX) 200 mg capsuleIndications:CLL (chronic lymphocytic leukemia) (HCC) TAKE 2 CAPSULES(400 MG) BY MOUTH TWICE DAILY Reorder 01/21/2019 04/28/2019 documented as of this encounter Additional Health Concerns Infection Onset Date Last Indicated Resolved Time C. difficile Comment:Backloaded December 21, 2010 09/21/2010 09/21/2010 documented as of this encounter Care Teams Space Operations Relationship Specialty Start Date End Date Lenin Ventura MD [address] [address] PCP - General 07/06/16 Lenin Ventura MD [address] [address] 07/06/16 documented as of this encounter
--- OUTSIDE RECORDS SUMMARY | 2024-02-22 08:33 | XMS_ITS | Encounter Summary ---
Author Organization [facility] Address [address] [place] [address] Phone Care Team Providers Care Heritage Consultant Name Role Phone Lenin Ventura MD Primary Care Provider [phone] Lenin Ventura MD Unavailable [phone] Encounter Details Date Type Department Care Team (Late st Contact Info) Description 03/17/2019 Orders Only [facility] Bone Marrow Transplant [address] [facility] Advanced Medicine 7th Floor, [place] [address] Burt Dos Santos MD PhD [address] DIV BONE MARROW TRANSPLANT, [address] [place] [address] CLL (chronic lymphocytic leukemia) ([facility]) Social History Tobacco Use Types Packs/Day Years Used Date Smoking Tobacco: Former Smokeless Tobacco: Never Sex and Gender Information Value Date Recorded Sex Assigned at Not on file 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 Gender Identity Not on file Sexual Orientation Not on file documented as of this encounter Ordered Prescriptions Prescription Sig Dispense Quantity Refills Last Filled Start Date End Date ibrutinib (Imbruvica) 420 mg tabletIndications: CLL (chronic lymphocytic leukemia) (HCC) Take 1 tablet (420 mg total) by mouth daily 28 tablet 2 03/17/2019 03/17/2019 documented in this encounter Plan of Treatment Not on file documented as of this encounter Visit Diagnoses Diagnosis CLL (chronic lymphocytic leukemia) (HCC) Chronic lymphoid leukemia, without mention of having achieved remission documented in this encounter Discontinued Medications Medication Sig Discontinue Reason Start Date End Da te ibrutinib (IMBRUVICA) 420 mg tabletIndications:CLL (chronic lymphocytic leukemia) (HCC) Take 1 tablet (420 mg total) by mouth daily Reorder 12/09/2018 03/17/2019 documented as of this encounter Additional Health Concerns Infection Onset Date Last Indicated Resolved Time C. difficile Comment:Backloaded December 21, 2010 09/21/2010 09/21/2010 documented as of this encounter Care Teams Heritage Consultant Relationship Specialty Start Date End Date Lenin Ventura MD [address] [address] PCP - General 07/06/16 Lenin Ventura MD [address] [address] 07/06/16 documented as of this encounter
--- OUTSIDE RECORDS SUMMARY | 2024-02-22 08:33 | XMS_ITS | Encounter Summary ---
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 Name Role Phone Lenin Ventura MD Primary Care Provider [phone] Lenin Ventura MD Unavailable [phone] Reason for Referral * MRI/CAT/PET Scan (Routine) - Canceled Specialty Diagnoses / Procedures Referred By Trent delgado Referred To Contact Radiology Diagnoses Lymphoma, small lymphocytic (HCC) Procedures CT soft tissue neck with contrast Burt Dos Santos MD PhD Phone: tel: fax: [address] [address] Referral ID Status Reason Start Date Expiration Date V isits Requested Visits Authorized [id number] Canceled 07/10/2018 01/19/2020 1 1 * MRI/CAT/PET Scan (Routine) - Closed Specialty Diagnoses / Procedures Referred By Contac t Referred To Contact Radiology Diagnoses Lymphoma, small lymphocytic (HCC) Procedures CT chest abdomen pelvis with contrast Butr Dos Santos MD PhD Phone: tel: fax: [address] [address] Referral ID Status Reason Start Date Expiration Date Visits Re quested Visits Authorized [id number] Closed 07/10/2018 01/19/2020 1 1 Reason for Visit * Oncology (Routine) - Authorized Specialty Diagnoses / Procedures Referred By Contac t Referred To Contact Medical Oncology / Oncology Diagnoses Appt Comment: LAB Procedures RETURN Lenin Ventura MD [address] [address] Phone: tel: fax: Burt Dos Santos MD PhD [address] [place] [address] IM BONE MARROW TRANSPLANT, 5TH, [address] [place] [address] Phone: tel: fax: Referral ID Status Reason Start Date Expiration Date V isits Requested Visits Authorized [id number] Authorized 08/02/2017 03/12/2024 99 99 Encounter Details Date Type Department Care Team (Late st Contact Info) Description 07/10/2018 10:00 AM CDT Office Visit [facility] Oncology [address] [facility] 7th [place] [address] [place] [address] Burt Dos Santos MD PhD [address] DIV IM BONE MARROW TRANSPLANT, [address] [place], [place] [id number] Lymphoma, small lymphocytic (CMS/HCC) (Primary Dx) Social History Tobacco Use Types Packs/Day Years Used Date Smoking Tobacco: Former Smokeless Tobacco: Never Sex and Gender Information Value Date Recorded Sex Assigned at Not on file 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 Gender Identity Not on file Sexual Orientation Not on file documented as of this encounter Last Filed Vital Signs Vital Sign Reading Time Taken Comments Blood Pressure 114/67 07/10/2018 9:19 AM CDT Pulse 77 07/10/2018 9:19 AM CDT Temperature 36.9 ??C (98.4 ??F) 07/10/2018 9:19 AM CD T Respiratory Rate 18 07/10/2018 9:19 AM CDT Oxygen Saturation 96% 07/10/2018 9:19 AM CDT Inhaled Oxygen Concentration - - Weight 132.7 kg (292 lb 9.6 oz) 07/10/2018 9:19 AM CDT Height - - Body Mass Index 35.85 04/10/2018 9:49 AM MANAGER CRISIS documented in this encounter Progress Notes * Burt Dos Santos MD PhD - 07/10/2018 10:00 AM CDT BMT Progress Note Lymphoma, small lymphocytic (CMS/HCC) [...] then q2mo x 4; on clinical trial [facility] [id number] --> stable disease on CT; marrow 30-40% invovled 09/01/15 Subjective Interval History Mr. Abdullahi returns for scheduled follow up. He is feeling well today. He denies fevers, chills, night sweats. He has stable energy and appetite. He denies any pain. He notes occasional palpitations,and is feeling more fatigued over the past week. He started a new job. Outpatient Encounter Medications as of 07/10/2018: ??? fluticasone (FLONASE) 50 mcg/actuation nasal spray, daily., Disp: , Rfl: ??? ibrutinib (IMBRUVICA) 420 mg tablet, Take 1 tablet (420 mg total) by mouth daily, Disp: 28 tablet, Rfl: 3 ??? IBUPROFEN ORAL, Take by mouth as needed, Disp: , Rfl: ??? polyethylene glycol (GoLYTELY) 236-22.74-6.74 -5.86 gram solution, TAKE DIRECTED., Disp: , Rfl: ??? ranitidine (ZANTAC) 150 mg capsule, pt states prn, Disp: , Rfl: ??? HYDROcodone-acetaminophen (NORCO) 5-325 mg per tablet, , Disp: , Rfl: 0 Performance Status: 1 Objective Vitals: BP: 114/67 Temp: 36.9 ??C (98.4 ??F) Temp src: Oral Pulse: 77 Resp: 18 SpO2: 96 % Weight: 132.7 kg (292 lb 9.6 oz) Physical exam: In no acute distress HEENT:schlera white Lungs:CTA tawny Heart:RRR Abdomen:soft, non-tender Extremities:no edema Skin:no rash Neuro:no focal deficits Nodes: previously palpable sub-mental LAD is now resolved. Lab/Radiology/Diagnostic Review: CBC: Lab Results Component Value Date/Time WBC 23.1 (H) 07/10/2018 09:05 AM WBC 42.8 (H) 07/01/2018 02:31 PM HGB 12.1 (L) 07/10/2018 09:05 AM HGB 12.3 (L) 07/01/2018 02:31 PM HCT 36.0 (L) 07/10/2018 09:05 AM HCT 36.9 (L) 07/01/2018 02:31 PM LABPLAT 136 (L) 07/10/2018 09:05 AM LABPLAT 151 07/01/2018 02:31 PM NEUTROABS 4.0 07/10/2018 09:05 AM NEUTROABS 4,665 07/01/2018 02:31 PM CMP: Lab Results Component Value Date/Time [...] Date/Time LDH 305 (H) 04/10/2018 09:39 AM Assessment and Plan: Mr. Abdullahi is a very pleasant 67-year-old gentleman with SLL/CLL who was initially treated with FCR and obtained a 7-year remission. ??He relapsed and was treated on the ALT-803 plus rituximab clinical trial at the 3 mcg/kg dose level. ??His disease was stable, but then showed evidence of PD with enlarging lymph nodes 3 months ago. He was initiated on ibrutinib and has clinical evidence of response. ? 1.?Small lymphocytic lymphoma (SLL/CLL), recurrent.?He is tolerating ibrutinib well, and denies diarrhea/bloating, rash, or other symptoms. He is more fatigued, but he started a new job. We will continue ibrutinib and see him back in [address] to ensure his LAD is shrinking. We would then move to annual scans for a few years. He knows to hold ibrutinib for surgical procedures. ?2.?Abdominal pain with constipation and fecal urgency.?The GI symptoms are being followedand managed by GI, and he saw Dr. Woody. We will continue to monitor. ?3.?Thyroid nodule.?We will continue to follow this expectantly. ?? 4. Palpitations. These are rare (once a week) and do not cause symptoms. We will continue to monitor, and if suspicion is raised for a fib we would fruther evaluate. As always, the patient knows to contact our office with any questions or concerns in the interim. documented in this encounter Plan of Treatment Not on file documented as of this encounter Results * (ABNORMAL) CBC with auto differential (10/09/2018 9:30 AM CDT) WBC 25.4(H) 3.8 - 9.8 K/cumm [facility] Comment:Testing performed by : [facility], [address] [place] [id number] Hgb 12.4(L) 13.8 - 17.2 g/dL [facility] Comment:Testing performed by : [facility], [address] [place], [place] [id number] Hct 36.9(L) 40.7 - 50.3 % [facility] Comment:Testing performed by : [facility], [address] [place] [address] Plt 127(L) 140 - 440 K/cumm [facility] Comment:Testing performed by : [facility], [address] [place] [address] MPV 10.8(H) 6.8 - 10.4 fL [facility] Comment:Testing performed by : [place] [address] RBC 3.77(L) 4.50 - 5.70 M/cumm [facility] Comment:Testing performed by : [place] [address] MCV 97.9(H) 80.0 - 97.6 fL [facility] Comment:Testing performed by : [facility], [address] [place], [place] [id number] MCH 33.0 26.7 - 33.7 pg [facility] Comment:Testing performed by : [place] [address] MCHC 33.7 32.7 - 35.5 g/dL [facility] Comment:Testing performed by : [place] [address] RDW CV 16.4(H) 11.8 - 14.6 % [facility] Comment:Testing performed by : [facility], [address] [place], [place] [id number] NRBC abs 0.04(H) 0.00 - 0.01 K/cumm [facility] Comment:Testing performed by : [place] [id number] Blood specimen (specimen) 10/09/2018 9:30 AM CDT 10/09/2018 9:34 AM CDT Burt Dos Santos MD PhD LAB BLOOD ORDERABLES Final Result Performing Organization Address City/[facility]/ZIP Co de Phone Number [facility] Department [place] [address] * Lactate dehydrogenase (LD) (10/09/2018 9:30 AM CDT) [facility] Lactate dehydrogenase (LDH) 210 100 - 250 Units/L [facility] Blood specimen (specimen) 10/09/2018 9:30 AM CDT 10/09/2018 9:48 AM CDT Burt Dos Santos MD PhD LAB BLOOD ORDERABLES Final Result Performing Organization Address [facility] Co de Phone Number [facility] [place] [address] * (ABNORMAL) Comprehensive metabolic panel (10/09/2018 9:30 AM CDT) [facility] Sodium 137 135 - 145 mmol/L [facility] Potassium, pl 4.3 3.3 - 4.9 mmol/L [facility] Chloride 102 97 - 110 mmol/L [facility] CO2 27 22 - 32 mmol/L [facility] Anion gap 8 2 - 15 mmol/L [facility] BUN 21 8 - 25 mg/dL [facility] Creatinine 0.99 0.80 - 1.30 mg/dL [facility] Glucose 118 70 - 199 mg/dL [facility] [...] 2017. Calcium 9.2 8.5 - 10.3 mg/dL [facility] Bilirubin, total 0.4 0.1 - 1.2 mg/dL [facility] Protein, pl 6.0(L) 6.5 - 8.5 g/dL [facility] Albumin 4.2 3.5 - 5.0 g/dL [facility] Alk phos 75 40 - 130 Units/L [facility] ALT 26 7 - 55 Units/L [facility] AST 19 10 - 50 Units/L [facility] Blood specimen (specimen) 10/09/2018 9:30 AM CDT 10/09/2018 9:48 AM CDT us Burt Dos Santos MD PhD LAB BLOOD ORDERABLES Final Result [facility] [place] [address] * CT soft tissue neck with contrast (10/09/2018 9:07 AM CDT) Anatomical Region Laterality Modality Head and Neck N/A Computed Tomogra phy 10/09/2018 10:5 3 AM CDT Impressions 10/09/2018 1:36 PM CDT 1. ??Diffuse lymphadenopathy throughout all cervical mojgan stations within the neck which is intervally decreased in size compared to 04/10/2018. Dictated by: Azam Farooq M.D. The radiology attending physician has personally reviewed this study, and had reviewed and/or edited this written report and agrees with it. Electronically signed by: Sean Delgado M.D. Narrative 10/09/2018 1:36 PM CDT EXAMINATION: CT of the neck with contrast HISTORY: Small lymphocytic lymphoma. TECHNIQUE: CT of the neck was performed according to standard protocol after the uneventful administration of intravenous contrast. Contrast information: 75 mL Optiray-350 COMPARISON: 04/10/2018. FINDINGS: There is diffuse lymphadenopathy within the neck throughout all cervical mojgan stations. ??Overall the size of enlarged lymph nodes has slightly decreased compared to 04/10/2018. ??For example, a level IIb lymph node measures 1.1 cm x 1.1 cm, previously 1.2 cm x 1.3 cm (slice position 129). ??A left level 1B lymph node measures 1.4 cm x 2.1 cm, previously 1.6 cm x 2.4 cm (slice position -157). ??A conglomerate of left level IIb lymph nodes (slice position -137.0) now measures 2.4 cm x 1.7 cm, previously 2.6 cm x 2.2 cm. The muscles of the neck are [...] are normal. The limited view of the [place] is unremarkable. The visualized portions of the orbits are normal. ??There is a right maxillary sinus mucous retention cyst. Cervical spine alignment is normal. ??There is discectomy and anterior instrument fusion C5-C6. ??Multilevel degenerative disc disease is present throughout the cervical spine.. Intervertebral disk heights are normal. Neural foramina are normal. No consolidations are present within the visualized lung apices. Procedure Note Sean Delgado MD - 10/09/2018 EXAMINATION: CT of the neck with contrast HISTORY: Small lymphocytic lymphoma. TECHNIQUE: CT of the neck was performed according to standard protocol after the uneventful administration of intravenous contrast. Contrast information: 75 mL Optiray-350 COMPARISON: 04/10/2018. FINDINGS: There is diffuse lymphadenopathy within the neck throughout all cervical mojgan stations. Overall the size of enlarged lymph nodes has slightly decreased compared to 04/10/2018. For example, a level IIb lymph node measures 1.1 cm x 1.1 cm, previously 1.2 cm x 1.3 cm (slice position 129). A left level 1B lymph node measures 1.4 cm x 2.1 cm, previously 1.6 cm x 2.4 cm (slice position -157). A conglomerate of left level IIb lymph nodes (slice position -137.0) now measures 2.4 cm x 1.7 cm, previously 2.6 cm x 2.2 cm. The muscles of the neck are [...] are normal. The limited view of the [place] is unremarkable. The visualized portions of the orbits are normal. There is a right maxillary sinus mucous retention cyst. Cervical spine alignment is normal. There is discectomy and anterior instrument fusion C5-C6. Multilevel degenerative disc disease is present throughout the cervical spine.. Intervertebral disk heights are normal. Neural foramina are normal. No consolidations are present within the visualized lung apices. IMPRESSION: 1. Diffuse lymphadenopathy throughout all cervical mojgan stations within the neck which is intervally decreased in size compared to 04/10/2018. Dictated by: Azam Farooq M.D. The radiology attending physician has personally reviewed this study, and had reviewed and/or edited this written report and agrees with it. Electronically signed by: Sean Delgado M.D. Burt Dos Santos MD PhD IMG CT PROCEDURES Fi nal Result * CT chest abdomen pelvis with contrast (10/09/2018 9:07 AM CDT) Anatomical Region Laterality Modality Body N/A Computed Tomogra phy 10/09/2018 10:0 8 AM CDT Impressions 10/09/2018 2:39 PM CDT 1. Interval marked improvement in mediastinal and axillary lymphadenopathy. Supraclavicular lymphadenopathy is stable. 2. Interval improvement in mesenteric, retroperitoneal, iliac, and inguinal lymphadenopathy. Interval improvement in mesenteric fat stranding as well. Dictated by: Mary Zacarias M.D. The radiology attending physician has personally reviewed this study, and had reviewed and/or edited this written report and agrees with it. Electronically signed by: Paul Rocha M.D. Narrative 10/09/2018 2:39 PM CDT EXAMINATION: ??Computed tomography of the chest, abdomen and pelvis with intravenous contrast HISTORY: 68-year-old man with history of lymphoma treated with chemotherapy and immunotherapy. TECHNIQUE: ??Transaxial computed tomographic images of the chest, abdomen and pelvis were obtained with intravenous contrast according to the standard protocol after the uneventful administration of 100 mL Opti-Ray 350 intravenous contrast. COMPARISON: Comparison is made to CT chest, abdomen, and pelvis from 04/10/2018. FINDINGS: ?? Chest: Interval marked improvement in mediastinal and axillary lymphadenopathy. For example right paratracheal lymph node now measures 8 mm x 6 mm .at slice location -294, previously 2 cm x 1.5 cm. Supraclavicular lymphadenopathy is stable. There is a 2 mm groundglass opacity within the left upper lobe at slice location -284. This is likely inflammatory in etiology. The lungs are otherwise clear. There are no suspicious nodules or focal consolidations. There is no pneumothorax, pleural effusion, or pulmonary edema. The heart size is normal without pericardial effusion. There are coronary vascular calcifications. ??There is no central pulmonary embolism. There are atherosclerotic calcifications of the thoracoabdominal aorta. Abdomen/Pelvis: Mesenteric lymphadenopathy is improved from prior exam. There is an overall decrease in the associated mesenteric fat stranding with compared to prior exam. There is also interval improvement of retroperitoneal lymphadenopathy, bilateral iliac lymphadenopathy, and bilateral inguinal lymphadenopathy. For example the periportal lymph node conglomeration at slice location -556 now measures 7.7 x 3.2 cm, previously 8.4 x 3.5 cm. In the previous study, the terminal ileum was mildly thickened in this background of diffuse ileocolic lymphadenopathy and fat stranding, this has since decreased. There is mild surface nodularity of the liver that is stable from prior exam and may indicate early cirrhosis. Portal and hepatic veins are patent. ??The gallbladder is surgically absent. There is no intrahepatic or extrahepatic duct dilation. The pancreas and adrenal glands are normal. Tiny calcified granulomas within an otherwise normal spleen. Small nonobstructing left kidney stone without otherwise normal left kidney. The right kidney is normal. There is no hydronephrosis. The urinary bladder is normal. The colon is of normal course and caliber. ??The stomach and duodenum are normal. The visualized small bowel is unremarkable. The thoracoabdominal aorta and its branches is of normal course and caliber. There is mild atherosclerotic disease of the thoracoabdominal aorta and its branches. There is no free fluid or pneumoperitoneum. No suspicious osseous lesions identified. Anterior instrumented cervical spinal fusion is partially visualized. Procedure Note Paul Rocha MD - 10/09/2018 EXAMINATION: Computed tomography of the chest, abdomen and pelvis with intravenous contrast HISTORY: 68-year-old man with history of lymphoma treated with chemotherapy and immunotherapy. TECHNIQUE: Transaxial computed tomographic images of the chest, abdomen and pelvis were obtained with intravenous contrast according to the standard protocol after the uneventful administration of 100 mL Opti-Ray 350 intravenous contrast. COMPARISON: Comparison is made to CT chest, abdomen, and pelvis from 04/10/2018. FINDINGS: Chest: Interval marked improvement in mediastinal and axillary lymphadenopathy. For example right paratracheal lymph node now measures 8 mm x 6 mm .at slice location -294, previously 2 cm x 1.5 cm. Supraclavicular lymphadenopathy is stable. There is a 2 mm groundglass opacity within the left upper lobe at slice location -284. This is likely inflammatory in etiology. The lungs are otherwise clear. There are no suspicious nodules or focal consolidations. There is no pneumothorax, pleural effusion, or pulmonary edema. The heart size is normal without pericardial effusion. There are coronary vascular calcifications. There is no central pulmonary embolism. There are atherosclerotic calcifications of the thoracoabdominal aorta. Abdomen/Pelvis: Mesenteric lymphadenopathy is improved from prior exam. There is an overall decrease in the associated mesenteric fat stranding with compared to prior exam. There is also interval improvement of retroperitoneal lymphadenopathy, bilateral iliac lymphadenopathy, and bilateral inguinal lymphadenopathy. For example the periportal lymph node conglomeration at slice location -556 now measures 7.7 x 3.2 cm, previously 8.4 x 3.5 cm. In the previous study, the terminal ileum was mildly thickened in this background of diffuse ileocolic lymphadenopathy and fat stranding, this has since decreased. There is mild surface nodularity of the liver that is stable from prior exam and may indicate early cirrhosis. Portal and hepatic veins are patent. The gallbladder is surgically absent. There is no intrahepatic or extrahepatic duct dilation. The pancreas and adrenal glands are normal. Tiny calcified granulomas within an otherwise normal spleen. Small nonobstructing left kidney stone without otherwise normal left kidney. The right kidney is normal. There is no hydronephrosis. The urinary bladder is normal. The colon is of normal course and caliber. The stomach and duodenum are normal. The visualized small bowel is unremarkable. The thoracoabdominal aorta and its branches is of normal course and caliber. There is mild atherosclerotic disease of the thoracoabdominal aorta and its branches. There is no free fluid or pneumoperitoneum. No suspicious osseous lesions identified. Anterior instrumented cervical spinal fusion is partially visualized. IMPRESSION: 1. Interval marked improvement in mediastinal and axillary lymphadenopathy. Supraclavicular lymphadenopathy is stable. 2. Interval improvement in mesenteric, retroperitoneal, iliac, and inguinal lymphadenopathy. Interval improvement in mesenteric fat stranding as well. Dictated by: Mary Zacarias M.D. The radiology attending physician has personally reviewed this study, and had reviewed and/or edited this written report and agrees with it. Electronically signed by: Paul Rocha M.D. Burt Dos Santos MD PhD IMG CT PROCEDURES Fi nal Result documented in this encounter Visit Diagnoses Diagnosis Lymphoma, small lymphocytic (HCC)- Primary Lymphosarcoma, unspecified site, extranodal and solid organ sites Lymphoma, small lymphocytic (HCC) Lymphosarcoma, unspecified site, extranodal and solid organ sites documented in this encounter Historical Medications * This list may reflect changes made after this encounter. IBUPROFEN ORALIndications:p t unsure of dose Take by mouth as needed 06/12/2019 added in this encounter Orders Appointment Requests Count Last Ordered Date Fi rst Ordered Date [facility]N CLINIC APPOINTMENT REQUEST 2 019 07/10/2018 [facility] LAB APPOINTMENT 1 10/09/2018 documented in this encounter Additional Health Concerns Infection Onset Date Last Indicated Resolved Time C. difficile Comment:Backloaded December 21, 2010 09/21/2010 09/21/2010 documented as of this encounter Care Teams Asphalt Roller Person Relationship Specialty Start Date End Date Lenin Ventura MD [address] [address] PCP - General 07/06/16 Lenin Ventura MD [address] [address] 07/06/16 documented as of this encounter
--- OUTSIDE RECORDS SUMMARY | 2024-02-22 08:33 | XMS_ITS | Encounter Summary ---
Author Organization [facility] Address [address] [place] [address] Phone Care Team Providers Care Bio Medical Technician Name Role Phone Lenin Ventura MD Primary Care Provider [phone] Lenin Ventura MD Unavailable [phone] Reason for Visit * Reason Onset Date Comments Fatigue 05/16/2018 Adenopathy 05/16/2018 abdominal, neck Encounter Details Date Type Department Care Team (Late st Contact Info) Description 05/16/2018 Telephone [facility] Bone Marrow Transplant [address] [facility] 7th Floor, [place] [address] Josie Mejia, ALICIA Fatigue; Adenopathy (abdominal, neck) Social History Tobacco Use Types Packs/Day Years Used Date Smoking Tobacco: Former Smokeless Tobacco: Never Sex and Gender Information Value Date Recorded Sex Assigned at Not on file 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 Additionally he has new onset of abdominal pressure. No fever, night sweats or other s/s. He asked that I start the process for Ibrutinib. I will request the prescription be put through. Once we know when patient will receive drug, I will reschedule his appointment closer to the time in which the patient will start medication. documented in this encounter Plan of Treatment Not on file documented as of this encounter Visit Diagnoses Diagnosis Lymphoma, small lymphocytic (HCC)- Primary Lymphosarcoma, unspecified site, extranodal and solid organ sites documented in this encounter Additional Health Concerns Infection Onset Date Last Indicated Resolved Time C. difficile Comment:Backloaded December 21, 2010 09/21/2010 09/21/2010 documented as of this encounter Care Teams Bio Medical Technician Relationship Specialty Start Date End Date Lenin Ventura MD [address] [place] [id number] PCP - General 07/06/16 Lenin Ventura MD [address] [place] [address] 07/06/16 documented as of this encounter
--- OUTSIDE RECORDS SUMMARY | 2024-02-22 08:33 | XMS_ITS | Encounter Summary ---
Author Organization [facility] Address [address] [place] [address] Phone Care Team Providers Care Advertising Executive Name Role Phone Lenin Ventura MD Primary Care Provider [phone] Lenin Ventura MD Unavailable Encounter Details Date Type Department Care Team (Late st Contact Info) Description 08/18/2018 Orders Only [facility] [address] [facility] Advanced Medicine 7th Floor, [place] [id number] Burt Dos Santos MD PhD [address] DIV IM BONE MARROW TRANSPLANT, [address] [place], [place] [id number] CLL (chronic lymphocytic leukemia) ([facility]) (Primary Dx) Social History Tobacco Use Types Packs/Day Years Used Date Smoking Tobacco: Former Smokeless Tobacco: Never Sex and Gender Information Value Date Recorded Sex Assigned at Not on file 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 Gender Identity Not on file Sexual Orientation Not on file documented as of this encounter Ordered Prescriptions Prescription Sig Dispense Quantity Refills Last Filled Start Date End Date al & mag hydroxide simethicone-diphen hydramine-lidocain e-nystatin (MAGIC MOUTHWASH) suspension 4-4-4-1Indications :Chemotherapy-Pamela jorge Mucositis Swish and swallow 10 mL every 4 (four) hours as needed (mouth pain) 240 mL 1 08/18/2018 0 documented in this encounter Plan of Treatment Not on file documented as of this encounter Visit Diagnoses Diagnosis CLL (chronic lymphocytic leukemia) (HCC)- Primary Chronic lymphoid leukemia, without mention of having achieved remission documented in this encounter Discontinued Medications Medication Sig Discontinue Reason Start Date End Da te al & mag hydroxide with simethicone-diphenhydram ine-lidocaine (MAGIC MOUTHWASH) suspension 8-5-6Ihgxcleqwmj:Chemoth erapy-Induced Mucositis Swish and swallow 10 mL every 4 (four) hours as needed (mouth pain) Formulary change 08/18/2018 08/18/2018 documented as of this encounter Additional Health Concerns Infection Onset Date Last Indicated Resolved Time C. difficile Comment:Backloaded December 21, 2010 09/21/2010 09/21/2010 documented as of this encounter Care Teams Advertising Executive Relationship Specialty Start Date End Date Lenin Ventura MD [address] [address] PCP - General 07/06/16 Lenin Ventura MD [address] [address] 07/06/16 documented as of this encounter
--- OUTSIDE RECORDS SUMMARY | 2024-02-22 08:33 | XMS_ITS | Encounter Summary ---
Author Organization [facility] Address [address] [place] [address] Care Team Providers Care Pattern Drum Maker Name Role Phone Lenin Ventura MD Primary Care Provider [phone] Lenin Ventura MD Unavailable [phone] Encounter Details Date Type Department Care Team (Latest Contact Info) Description 12/20/2016 8:04 AM CDT - 12/20/2016 11:59 PM CDT Hospital Encounter [facility] [phone] Burt Mcginnis MD PhD [address] DIV IM BONE MARROW TRANSPLANT, [address] [place], [place] [id number] Discharge Disposition: Discharge to home or self care Social History Tobacco Use Types Packs/Day Years Used Date Smoking Tobacco: Never Assessed Sex and Gender Information Value Date Recorded Sex Assigned at Not on file 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 BEN PENNINGTON M.D. FINAL REPORT The radiology attending physician has personally reviewed this study, and has reviewed and/or edited this written report and agrees with it. ACC# ??Date Time ??Exam [id number] Dec 20, 2016 08:55:[address] Neck SoftTissue w cont EXAMINATION: ??CT of the neck with contrast HISTORY: 66-year-old male with chronic lymphocytic leukemia. TECHNIQUE: CT of the neck was performed according to standard protocol after the uneventful administration of intravenous contrast. Contrast information: 47 mL Optiray-350 COMPARISON: 06/21/2016. FINDINGS: Review of the topogram demonstrates no abnormality. There is cervical, supraclavicular, and mediastinal lymphadenopathy; overall appearance not substantially changed from prior examination. For reference, a left level 2 lymph node at slice position 108.5 that measures 1.5 x 2.5 cm, previously 1.4 x 2.4 cm. ??A right level 5 lymph nodes node at slice position 100.5 that measures 1.0 x 1.8 cm, previously 1.1 x 1.5 cm. ??Cervical lymphadenopathy involves all cervical lymph node stations. ??A right paratracheal lymph node at slice position 15.5 measures 1.7 x 1.1 cm, unchanged. ??There is a hypoattenuating nodule in the left thyroid lobe, unchanged. The muscles of the neck are [...] are normal. The limited view of the [place] is unremarkable. The visualized portions of the orbits are normal. There are postsurgical changes of C5-C6 anterior and interbody fusion. ??Degenerative changes are seen in the remaining, nonfused cervical spine. ??Neural foramina are normal. Limited examination of the superior thorax shows no pulmonary infiltrate, suspicious nodules, or pleural effusions. IMPRESSION: ??Stable bilateral cervical and upper mediastinal lymphadenopathy involving all stations of the neck. Electronically signed by: Kamini Delgado M.D. Requested By: BURT MCGINNIS M.D. Dictated By: ?? BEN PENNINGTON M.D. ??on Dec 20 2016 11:43A This document has been electronically signed by: KAMINI DELGADO M.D. on Dec 20 2016 11:43A [id number] LOCKETT M.D. FINAL REPORT The radiology attending physician has personally reviewed this study, and has reviewed and/or edited this written report and agrees with it. Attending: ??RAHEL, ??BURT Requesting: ??RAHEL, ??BURT Requesting Fax: ?? Attending Fax: ?? Attending ID: ??[id number] Requesting ID: ??[id number] Report To 1 ID: ??[id number] ? Report To 1 Name: ??, ?? Report To 1 FAX: ?? NextGen Order #: ?? Procedure Note Miscellaneous, Not In File - 12/20/2016 Terence LOCKETT M.D. FINAL REPORT The radiology attending physician has personally reviewed this study, and has reviewed and/or edited this written report and agrees with it. ACC# Date Time Exam [id number] Dec 20, 2016 08:55:[address] Neck SoftTissue w cont EXAMINATION: CT of the neck with contrast HISTORY: 66-year-old male with chronic lymphocytic leukemia. TECHNIQUE: CT of the neck was performed according to standard protocol after the uneventful administration of intravenous contrast. Contrast information: 47 mL Optiray-350 COMPARISON: 06/21/2016. FINDINGS: Review of the topogram demonstrates no abnormality. There is cervical, supraclavicular, and mediastinal lymphadenopathy; overall appearance not substantially changed from prior examination. For reference, a left level 2 lymph node at slice position 108.5 that measures 1.5 x 2.5 cm, previously 1.4 x 2.4 cm. A right level 5 lymph nodes node at slice position 100.5 that measures 1.0 x 1.8 cm, previously 1.1 x 1.5 cm. Cervical lymphadenopathy involves all cervical lymph node stations. A right paratracheal lymph node at slice position 15.5 measures 1.7 x 1.1 cm, unchanged. There is a hypoattenuating nodule in the left thyroid lobe, unchanged. The muscles of the neck are [...] are normal. The limited view of the [place] is unremarkable. The visualized portions of the orbits are normal. There are postsurgical changes of C5-C6 anterior and interbody fusion. Degenerative changes are seen in the remaining, nonfused cervical spine. Neural foramina are normal. Limited examination of the superior thorax shows no pulmonary infiltrate, suspicious nodules, or pleural effusions. IMPRESSION: Stable bilateral cervical and upper mediastinal lymphadenopathy involving all stations of the neck. Electronically signed by: Kamini Delgado M.D. Requested By: BURT MCGINNIS M.D. Dictated By: BEN PENNINGTON M.D. on Dec 20 2016 11:43A This document has been electronically signed by: KAMINI DELGADO M.D. on Dec 20 2016 11:43A [id number] LOCKETT M.D. FINAL REPORT The radiology attending physician has personally reviewed this study, and has reviewed and/or edited this written report and agrees with it. Attending: BURT MCGINNIS Requesting: BURT MCGINNIS Requesting Fax: Attending Fax: Attending ID: [id number] Requesting ID: [id number] Report To 1 ID: [id number] Report To 1 Name: , Report To 1 FAX: NextGen Order #: Burt Mcginnis MD PhD IMG CT PROCEDURES Fi nal Result * CT Abdomen Pelvis W Contrast (12/20/2016 1:55 PM CDT) Anatomical Region Laterality Modality Body N/A Computed Tomogra phy 12/20/2016 1:55 PM CDT Narrative 12/20/2016 3:06 PM CDT PAUL ROCHA M.D. DUARTE BARRIOS M.D. FINAL REPORT The radiology attending physician has personally reviewed this study, and has reviewed and/or edited this written report and agrees with it. ACC# ??Date Time ??Exam [id number] Dec 20, 2016 08:55:[address] Chest with contrast [id number] Dec 20, 2016 08:55:[address] Abd ??and ??Pelvis with cont EXAMINATION: ??Computed tomography of the chest, abdomen and pelvis with intravenous contrast HISTORY: 66-year-old man with chronic lymphocytic leukemia status post chemotherapy. ??Now on clinical trial. TECHNIQUE: ??Transaxial computed tomographic images of the chest, abdomen and pelvis were obtained with intravenous contrast according to the standard protocol after the uneventful administration of 90 mL Opti-Ray 350 intravenous contrast. COMPARISON: 06/21/2016 FINDINGS: ?? Chest: Left thyroid nodule is seen, unchanged. ??The heart is normal in size without pericardial effusion. ??There is vessels are normal. ??There is no central pulmonary embolism. Previously seen supraclavicular, axillary, subpectoral, and mediastinal lymphadenopathy is again noted, unchanged. ??For reference, subcarinal lymph node measuring 1.3 cm , unchanged and paraesophageal lymph node measuring 1.4 cm , unchanged. No pulmonary nodule is seen. ??There is no focal consolidation, pleural effusion, or pneumothorax. ??Calcified hilar lymphadenopathy are seen and consistent with old granulomatous disease. Abdomen and pelvis: The liver enhances homogeneously without focal lesion. ??There is no periportal edema or biliary ductal dilatation. ??The gallbladder is surgically absent. ??The stomach, duodenum, pancreas, adrenal glands, right kidney, and urinary bladder are normal. ??Splenic calcifications are seen and consistent with old granulomatous disease. ??Nonocclusive renal stone is seen in the left kidney lower pole, unchanged. ??There is no hydronephrosis. Intra-abdominal and pelvic extensive lymphadenopathy is again seen, unchanged. ??For reference, enlarged lymph node is seen at slice position -302 measuring 1.9 cm, unchanged; and enlarged lymph node is seen at slice position -566 measuring 2.2 cm, unchanged. ?? The small bowel and colons are normal without wall thickening. ??There is no small bowel obstruction. ??There is no intra-abdominal or pelvic free fluid/air. ??The bone window demonstrate cervical spine fusion with no suspicious lytic or blastic osseous lesions. IMPRESSION: ??1. ??Unchanged extensive lymphadenopathy in the chest, abdomen, and pelvis. Electronically signed by: Paul Rocha M.D. Requested By: BURT MCGINNIS M.D. Dictated By: ?? DUARTE BARRIOS M.D. ??on Dec 20 2016 10:04A This document has been electronically signed by: PAUL ROCHA M.D. on Dec 20 2016 10:04A [id number] FREDERICK M.D. FINAL REPORT The radiology attending physician has personally reviewed this study, and has reviewed and/or edited this written report and agrees with it. Attending: ??RAHEL, ??BURT Requesting: ??RAHEL, ??BURT Requesting Fax: ?? Attending Fax: ?? Attending ID: ??[id number] Requesting ID: ??[id number] Report To 1 ID: ??[id number] ? Report To 1 Name: ??, ?? Report To 1 FAX: ?? NextGen Order #: ?? Procedure Note Miscellaneous, Not In File - 12/20/2016 Terence FREDERICK M.D. FINAL REPORT The radiology attending physician has personally reviewed this study, and has reviewed and/or edited this written report and agrees with it. [facility] Date Time Exam [id number] Dec 20, 2016 08:55:[address] Chest with contrast [id number] Dec 20, 2016 08:55:[address] Abd and Pelvis with cont EXAMINATION: Computed tomography of the chest, abdomen and pelvis with intravenous contrast HISTORY: 66-year-old man with chronic lymphocytic leukemia status post chemotherapy. Now on clinical trial. TECHNIQUE: Transaxial computed tomographic images of the chest, abdomen and pelvis were obtained with intravenous contrast according to the standard protocol after the uneventful administration of 90 mL Opti-Ray 350 intravenous contrast. COMPARISON: 06/21/2016 FINDINGS: Chest: Left thyroid nodule is seen, unchanged. The heart is normal in size without pericardial effusion. There is vessels are normal. There is no central pulmonary embolism. Previously seen supraclavicular, axillary, subpectoral, and mediastinal lymphadenopathy is again noted, unchanged. For reference, subcarinal lymph node measuring 1.3 cm , unchanged and paraesophageal lymph node measuring 1.4 cm , unchanged. No pulmonary nodule is seen. There is no focal consolidation, pleural effusion, or pneumothorax. Calcified hilar lymphadenopathy are seen and consistent with old granulomatous disease. Abdomen and pelvis: The liver enhances homogeneously without focal lesion. There is no periportal edema or biliary ductal dilatation. The gallbladder is surgically absent. The stomach, duodenum, pancreas, adrenal glands, right kidney, and urinary bladder are normal. Splenic calcifications are seen and consistent with old granulomatous disease. Nonocclusive renal stone is seen in the left kidney lower pole, unchanged. There is no hydronephrosis. Intra-abdominal and pelvic extensive lymphadenopathy is again seen, unchanged. For reference, enlarged lymph node is seen at slice position -302 measuring 1.9 cm, unchanged; and enlarged lymph node is seen at slice position -566 measuring 2.2 cm, unchanged. The small bowel and colons are normal without wall thickening. There is no small bowel obstruction. There is no intra-abdominal or pelvic free fluid/air. The bone window demonstrate cervical spine fusion with no suspicious lytic or blastic osseous lesions. IMPRESSION: 1. Unchanged extensive lymphadenopathy in the chest, abdomen, and pelvis. Electronically signed by: Paul Rocha M.D. Requested By: BURT MCGINNIS M.D. Dictated By: DUARTE BARRIOS M.D. on Dec 20 2016 10:04A This document has been electronically signed by: PAUL ROCHA M.D. on Dec 20 2016 10:04A [id number] FREDERICK M.D. FINAL REPORT The radiology attending physician has personally reviewed this study, and has reviewed and/or edited this written report and agrees with it. Attending: BURT MCGINNIS Requesting: BURT MCGINNIS Requesting Fax: Attending Fax: Attending ID: [id number] Requesting ID: [id number] Report To 1 ID: [id number] Report To 1 Name: , Report To 1 FAX: NextGen Order #: Burt Mcginnis MD PhD IMG CT PROCEDURES Fi nal Result * CT Chest W Contrast (12/20/2016 1:55 PM CDT) Anatomical Region Laterality Modality Body N/A Computed Tomogra phy 12/20/2016 1:55 PM CDT Narrative 12/20/2016 3:06 PM CDT PAUL ROCHA M.D. DUARTE BARRIOS M.D. FINAL REPORT The radiology attending physician has personally reviewed this study, and has reviewed and/or edited this written report and agrees with it. ACC# ??Date Time ??Exam [id number] Dec 20, 2016 08:55:[address] Chest with contrast [id number] Dec 20, 2016 08:55:[address] Abd ??and ??Pelvis with cont EXAMINATION: ??Computed tomography of the chest, abdomen and pelvis with intravenous contrast HISTORY: 66-year-old man with chronic lymphocytic leukemia status post chemotherapy. ??Now on clinical trial. TECHNIQUE: ??Transaxial computed tomographic images of the chest, abdomen and pelvis were obtained with intravenous contrast according to the standard protocol after the uneventful administration of 90 mL Opti-Ray 350 intravenous contrast. COMPARISON: 06/21/2016 FINDINGS: ?? Chest: Left thyroid nodule is seen, unchanged. ??The heart is normal in size without pericardial effusion. ??There is vessels are normal. ??There is no central pulmonary embolism. Previously seen supraclavicular, axillary, subpectoral, and mediastinal lymphadenopathy is again noted, unchanged. ??For reference, subcarinal lymph node measuring 1.3 cm , unchanged and paraesophageal lymph node measuring 1.4 cm , unchanged. No pulmonary nodule is seen. ??There is no focal consolidation, pleural effusion, or pneumothorax. ??Calcified hilar lymphadenopathy are seen and consistent with old granulomatous disease. Abdomen and pelvis: The liver enhances homogeneously without focal lesion. ??There is no periportal edema or biliary ductal dilatation. ??The gallbladder is surgically absent. ??The stomach, duodenum, pancreas, adrenal glands, right kidney, and urinary bladder are normal. ??Splenic calcifications are seen and consistent with old granulomatous disease. ??Nonocclusive renal stone is seen in the left kidney lower pole, unchanged. ??There is no hydronephrosis. Intra-abdominal and pelvic extensive lymphadenopathy is again seen, unchanged. ??For reference, enlarged lymph node is seen at slice position -302 measuring 1.9 cm, unchanged; and enlarged lymph node is seen at slice position -566 measuring 2.2 cm, unchanged. ?? The small bowel and colons are normal without wall thickening. ??There is no small bowel obstruction. ??There is no intra-abdominal or pelvic free fluid/air. ??The bone window demonstrate cervical spine fusion with no suspicious lytic or blastic osseous lesions. IMPRESSION: ??1. ??Unchanged extensive lymphadenopathy in the chest, abdomen, and pelvis. Electronically signed by: Paul Rocha M.D. Requested By: BURT MCGINNIS M.D. Dictated By: ?? DUARTE BARRIOS M.D. ??on Dec 20 2016 10:04A This document has been electronically signed by: PAUL ROCHA M.D. on Dec 20 2016 10:04A [id number] FREDERICK M.D. FINAL REPORT The radiology attending physician has personally reviewed this study, and has reviewed and/or edited this written report and agrees with it. Attending: ??RAHEL, ??BURT Requesting: ??RAHEL, ??BURT Requesting Fax: ?? Attending Fax: ?? Attending ID: ??[id number] Requesting ID: ??[id number] Report To 1 ID: ??[id number] ? Report To 1 Name: ??, ?? Report To 1 FAX: ?? NextGen Order #: ?? Procedure Note Miscellaneous, Not In File - 12/20/2016 PAUL ROCHA M.D. DUARTE BARRIOS M.D. FINAL REPORT The radiology attending physician has personally reviewed this study, and has reviewed and/or edited this written report and agrees with it. ACC# Date Time Exam [id number] Dec 20, 2016 08:55:[address] Chest with contrast [id number] Dec 20, 2016 08:55:[address] Abd and Pelvis with cont EXAMINATION: Computed tomography of the chest, abdomen and pelvis with intravenous contrast HISTORY: 66-year-old man with chronic lymphocytic leukemia status post chemotherapy. Now on clinical trial. TECHNIQUE: Transaxial computed tomographic images of the chest, abdomen and pelvis were obtained with intravenous contrast according to the standard protocol after the uneventful administration of 90 mL Opti-Ray 350 intravenous contrast. COMPARISON: 06/21/2016 FINDINGS: Chest: Left thyroid nodule is seen, unchanged. The heart is normal in size without pericardial effusion. There is vessels are normal. There is no central pulmonary embolism. Previously seen supraclavicular, axillary, subpectoral, and mediastinal lymphadenopathy is again noted, unchanged. For reference, subcarinal lymph node measuring 1.3 cm , unchanged and paraesophageal lymph node measuring 1.4 cm , unchanged. No pulmonary nodule is seen. There is no focal consolidation, pleural effusion, or pneumothorax. Calcified hilar lymphadenopathy are seen and consistent with old granulomatous disease. Abdomen and pelvis: The liver enhances homogeneously without focal lesion. There is no periportal edema or biliary ductal dilatation. The gallbladder is surgically absent. The stomach, duodenum, pancreas, adrenal glands, right kidney, and urinary bladder are normal. Splenic calcifications are seen and consistent with old granulomatous disease. Nonocclusive renal stone is seen in the left kidney lower pole, unchanged. There is no hydronephrosis. Intra-abdominal and pelvic extensive lymphadenopathy is again seen, unchanged. For reference, enlarged lymph node is seen at slice position -302 measuring 1.9 cm, unchanged; and enlarged lymph node is seen at slice position -566 measuring 2.2 cm, unchanged. The small bowel and colons are normal without wall thickening. There is no small bowel obstruction. There is no intra-abdominal or pelvic free fluid/air. The bone window demonstrate cervical spine fusion with no suspicious lytic or blastic osseous lesions. IMPRESSION: 1. Unchanged extensive lymphadenopathy in the chest, abdomen, and pelvis. Electronically signed by: Paul Rocha M.D. Requested By: BURT MCGINNIS M.D. Dictated By: DUARTE BARRIOS M.D. on Dec 20 2016 10:04A This document has been electronically signed by: PAUL ROCHA M.D. on Dec 20 2016 10:04A [id number] FREDERICK M.D. FINAL REPORT The radiology attending physician has personally reviewed this study, and has reviewed and/or edited this written report and agrees with it. Attending: BURT MCGINNIS Requesting: BURT MCGINNIS Requesting Fax: Attending Fax: Attending ID: [id number] Requesting ID: [id number] Report To 1 ID: [id number] Report To 1 Name: , Report To 1 FAX: NextGen Order #: [id number] Burt Mcginnis MD PhD IMG CT PROCEDURES Fi nal Result * POCT creatinine (12/20/2016 8:25 AM CDT) Creatinine POC 1.0 0.7 - 1.3 mg/dL [facility] Blood specimen (specimen) 12/20/2016 8:25 AM CDT 12/20/2016 8:25 AM CDT Burt Mcginnis MD PhD POINT OF CARE TEST O RDERABLES Final Result [facility] Department [place] [address] documented in this encounter Visit Diagnoses Not on filedocumented in this encounter Additional Health Concerns Infection Onset Date Last Indicated Resolved Time C. difficile Comment:Backloaded December 21, 2010 09/21/2010 09/21/2010 documented as of this encounter Care Teams Pattern Drum Maker Relationship Specialty Start Date End Date Lenin Ventura MD [address] [address] PCP - General 07/06/16 Lenin Ventura MD [address] [address] 07/06/16 documented as of this encounter
--- OUTSIDE RECORDS SUMMARY | 2024-02-22 08:33 | XMS_ITS | Encounter Summary ---
Author Organization [facility] Healthcare Address [address] [place] [address] Care Team Providers Care Dish Network Installer Name Role Phone Lenin Ventura MD Primary Care Provider [phone] Lenin Ventura MD Unavailable [phone] Encounter Details Date Type Department Care Team (Latest Contact Info) Description 04/26/2017 1:24 PM MULE PACKER - 05/02/2017 11:59 PM [facility] Hospital Encounter [facility]IM [phone] Burt Dos Santos MD PhD [address] BONE MARROW TRANSPLANT, [address] [place] [address] Discharge Disposition: Discharge to home or self care Social History Tobacco Use Types Packs/Day Years Used Date Smoking Tobacco: Never Assessed Sex and Gender Information Value Date Recorded Sex Assigned at Not on file Legal Sex Male 9:45 AM MULE PACKER Gender Identity Not on file Sexual Orientation [...] Date/Time Associated Diagnosis Comments LACTATE DEHYDROGENASE Routine Gen Lab 05/02/2017 9:10 AM MULE PACKER COMPREHENSIVE METABOLIC PANEL Routine Gen Lab 05/02/2017 9:10 AM MULE PACKER CBC WITH AUTO DIFFERENTIAL Routine Gen Lab 05/02/2017 9:02 AM MULE PACKER DISCHARGE LABORATORY CUMULATIVE REPORT 04/26/2017 12:00 AM MULE PACKER documented in this encounter Results * Comprehensive metabolic panel (05/02/2017 9:10 AM MULE PACKER) Sodium 137 135 - 145 mmol/L [facility] Potassium, pl 4.4 3.3 - 4.9 mmol/L [facility] CO2 25 22 - 32 mmol/L [facility] BUN 18 8 - 25 mg/dL [facility] Glucose 190 70 - 199 mg/dL [facility] Comment: Interpretive Data Fasting glucose >/= 126 [...] Current interpretive data was last revised 2017. Creatinine 0.84 0.80 - 1.30 mg/dL [facility] Calcium 9.5 8.5 - 10.3 mg/dL [facility] Chloride 103 97 - 110 mmol/L [facility] Albumin 4.5 3.5 - 5.0 g/dL [facility] AST 28 10 - 50 Units/L [facility] ALT 37 7 - 55 Units/L [facility] Alk phos 77 40 - 130 Units/L [facility] Bilirubin, total 0.4 0.1 - 1.2 mg/dL [facility] Protein, pl 6.5 6.5 - 8.5 g/dL [facility] Anion gap 9 2 - 15 mmol/L [facility] Blood specimen (specimen) 05/02/2017 9:10 AM MULE PACKER 05/02/2017 9:41 AM MULE PACKER Narrative [facility] - 05/02/2017 10:41 AM MULE PACKER Burt Dos Santos MD PhD LAB BLOOD ORDERABLES Final Result Performing Organization Address City/[facility] Co de Phone Number [facility] [place] [address] * (ABNORMAL) Lactate dehydrogenase (LD) (05/02/2017 9:10 AM MULE PACKER) Pathologist [facility] Lactate dehydrogenase (LDH) 273(H) 100 - 250 Units/L [facility] Blood specimen (specimen) 05/02/2017 9:10 AM MULE PACKER 05/02/2017 9:41 AM MULE PACKER Narrative [facility] - 05/02/2017 10:09 AM MULE PACKER Burt Dos Santos MD PhD LAB BLOOD ORDERABLES Final Result Performing Organization Address City/[facility] Co de Phone Number [facility] [place] [address] * (ABNORMAL) CBC with auto differential (05/02/2017 9:02 AM MULE PACKER) [facility] WBC 8.1 3.8 - 9.8 K/cumm [facility] RBC 4.51 4.50 - 5.70 M/cumm [facility] Hgb 14.4 13.8 - 17.2 g/dL [facility] Hct 41.8 40.7 - 50.3 % [facility] Mean Cellular Volume - CAM 92.5 80.0 - 97.6 fL [facility] Mean Cellular Hemoglobin - CAM 31.9 26.7 - 33.7 pg [facility] Mean Cellular Hemoglobin Concentration - CAM 34.5 32.7 - 35.5 g/dL [facility] Rdw 14.0 11.8 - 14.6 % [facility] Plt 202 140 - 440 K/cumm [facility] Mean Platelet Volume - CAM 9.4 6.8 - 10.4 fL [facility] Neutrophil pct 48.5 38.7 - 74.5 % [facility] Lymphocyte pct 41.6 20.0 - 54.3 % [facility] Monos 8.4 4.3 - 13.5 % [facility] Eosinophil pct 1.0 0.0 - 6.0 % [facility] Basophil pct 0.5 0.0 - 3.0 % [facility] Neutrophil abs 4.0 1.8 - 6.6 K/cumm [facility] Lymphocyte abs 3.4(H) 1.2 - 3.3 K/cumm [facility] Monocyte abs 0.7 0.2 - 1.2 K/cumm [facility] Eosinophils, abs 0.1 0.0 - 0.5 K/cumm [facility] Basophil abs 0.0 0.0 - 0.2 K/cumm [facility] NRBC 0.1 0.0 - 0.2 % [facility] NRBC abs 0.01 0.00 - 0.01 K/cumm [facility] Blood specimen (specimen) 05/02/2017 9:02 AM MULE PACKER 05/02/2017 9:05 AM MULE PACKER Narrative [facility] - 05/02/2017 9:12 AM MULE PACKER us Burt Dos Santos MD PhD LAB BLOOD ORDERABLES Final Result [facility] [place] [address] * DISCHARGE LABORATORY CUMULATIVE REPORT (04/26/2017 12:00 AM MULE PACKER) Narrative 04/26/2017 12:00 AM MULE PACKER Ordered by an unspecified provider. Historical Provider LAB BLOOD ORDERABLES [place] l Result documented in this encounter Visit Diagnoses Not on filedocumented in this encounter Additional Health Concerns Infection Onset Date Last Indicated Resolved Time C. difficile Comment:Backloaded December 21, 2010 09/21/2010 09/21/2010 documented as of this encounter Care Teams Dish Network Installer Relationship Specialty Start Date End Date Lenin Ventura MD [address] [address] PCP - General 07/06/16 Lenin Ventura MD [address] [address] 07/06/16 documented as of this encounter
--- OUTSIDE RECORDS SUMMARY | 2024-02-22 08:33 | XMS_ITS | Encounter Summary ---
Author Organization [facility] Address [address] [place] [address] Phone Care Team Providers Care Kraft Digester Operator Name Role Phone Lenin Ventura MD Primary Care Provider [phone] Lenin Ventura MD Unavailable [phone] Encounter Details Date Type Department Care Team (Late st Contact Info) Description 03/17/2019 Orders Only [facility] Bone Marrow Transplant [address] [facility] Advanced Medicine 7th Floor, [place] [id number] Burt Dos Santos MD PhD [address] BONE MARROW TRANSPLANT[address] [place] [address] CLL (chronic lymphocytic leukemia) ([facility]) Social History Tobacco Use Types Packs/Day Years Used Date Smoking Tobacco: Former Smokeless Tobacco: Never Sex and Gender Information Value Date Recorded Sex Assigned at Not on file 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 difficile Comment:Backloaded December 21, 2010 09/21/2010 09/21/2010 documented as of this encounter Care Teams Kraft Digester Operator Relationship Specialty Start Date End Date Lenin Ventura MD [address] [address] PCP - General 07/06/16 Lenin Ventura MD [address] [address] 07/06/16 documented as of this encounter
--- OUTSIDE RECORDS SUMMARY | 2024-02-22 08:33 | XMS_ITS | Encounter Summary ---
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 Name Role Phone Lenin Ventura MD Primary Care Provider [phone] Lenin Ventura MD Unavailable [phone] Encounter Details Date Type Department Care Team (Latest Contact Info) Description 06/12/2019 9:49 AM CDT - 06/15/2019 2:19 PM CDT Hospital Encounter [address] [id number] Burt Dos Santos MD PhD [address] DIV IM BONE MARROW TRANSPLANT, [address] [place] [address] Kaylee Chatterjee MD [address] [place] [address] Ricardo Rizzo MD [address] [place] [address] CLL (chronic lymphocytic leukemia) ([facility]) Discharge Disposition: Discharge to home or self care Social History Tobacco Use Types Packs/Day Years Used Date Smoking Tobacco: Former Smokeless Tobacco: Never Alcohol Use Standard Drinks/Week Comments Not Currently 0 (1 standard drink = 0.6 oz pur e alcohol) Sex and Gender Information Value Date Recorded Sex Assigned at Not on file 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 Gender Identity Not on file Sexual Orientation Not on file documented as of this encounter Last Filed Vital Signs Vital Sign Reading Time Taken Comments Blood Pressure 117/68 06/15/2019 3:00 AM CDT Pulse 83 06/15/2019 3:00 AM CDT Temperature 36.5 ??C (97.7 ??F) 06/15/2019 3:00 AM CD T Respiratory Rate 20 06/15/2019 3:00 AM CDT Oxygen Saturation 94% 06/15/2019 3:00 AM CDT Inhaled Oxygen Concentration - - Weight 119.7 kg (264 lb) 06/14/2019 7:26 PM CDT Height 193 cm (6' 4 ) 06/12/2019 9:48 AM CDT Body Mass Index 32.14 06/12/2019 9:48 AM CDT documented in this encounter Discharge Diagnoses Diagnosis Acute recurrent sinusitis, unspecified - ACUTE RECURRENT SINUSITIS, UNSPECIFIED Non-Hodgkin lymphoma, unspecified, unspecified site (HCC) - NON-HODGKIN LYMPHOMA, UNSPECIFIED, UNSPECIFIED SITE Chronic 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 (HCC) - CHRONIC LYMPHOCYTIC LEUKEMIA OF B-CELL TYPE NOT HAVING ACHIEVED REMISSION Nonfamilial hypogammaglobulinemia (HCC) - NONFAMILIAL HYPOGAMMAGLOBULINEMIA Nontoxic single thyroid nodule - NONTOXIC SINGLE THYROID NODULE Nontoxic uninodular goiter Major depressive disorder, single episode, unspecified - MAJOR DEPRESSIVE DISORDER, SINGLE EPISODE, UNSPECIFIED Anxiety disorder, unspecified - ANXIETY DISORDER, UNSPECIFIED Otitis media, unspecified, unspecified ear - OTITIS MEDIA, UNSPECIFIED, UNSPECIFIED EAR Unspecified mastoiditis, bilateral - UNSPECIFIED MASTOIDITIS, BILATERAL Conductive hearing loss, bilateral - CONDUCTIVE HEARING LOSS, BILATERAL Family history of malignant neoplasm of digestive organs - FAMILY HISTORY OF MALIGNANT NEOPLASM OF DIGESTIVE ORGANS Family history of other mental and behavioral disorders - FAMILY HISTORY OF OTHER MENTAL AND BEHAVIORAL DISORDERS Family history of ischemic heart disease and other diseases of the circulatory system - FAMILY HISTORY OF ISCHEMIC HEART DISEASE AND OTHER DISEASES OF THE CIRCULATORY SYSTEM Family history of diabetes mellitus - FAMILY HISTORY OF DIABETES MELLITUS Family history of glaucoma - FAMILY HISTORY OF GLAUCOMA Acquired absence of other specified parts of digestive tract - ACQUIRED ABSENCE OF OTHER SPECIFIED PARTS OF DIGESTIVE TRACT Other watermelon inspector (current) drug therapy - OTHER TANK BUILDER SUPERVISOR (CURRENT) DRUG THERAPY documented in this encounter Discharge Summaries * Kaylee Chatterjee MD - 06/15/2019 11:39 AM CDT Inpatient Discharge Summary BRIEF OVERVIEW Admitting Provider: Burt Dos Santos MD PhD Discharge Provider: Burt Dos Santos MD PhD Primary Care Physician at Discharge: Lenin Ventura MD [phone] Admission Date: 06/12/2019 Discharge Date: 06/15/2019 Admission Location: [facility] Problems/Diagnoses: Principal Problem: Acute recurrent sinusitis Active Problems: Hypogammaglobulinemia (CMS/HCC) CLL (chronic lymphocytic leukemia) ([facility]) Anxiety and depression Mastoiditis of both sides Resolved Problems: No resolved hospital problems. DETAILS OF HOSPITAL STAY Presenting Problem/History of Present Illness: Jeff Abdullahi is a 68 y.o. male with history of recurrent SLL/CLL who presents with worsening sinus pain, drainage, loss of hearing. ?? Patient has had multiple occasions of sinusitis since being on imbruvica. He developed ongoing sinusitis 12/2018-03/2019 and received multiple rounds of antibiotics and steroids. He established with Dr. Alexei Wilcox at [facility] In [place] who he follows with. He had a CT sinus atthat time that only showed a polyp. He recovered by March. ?? He then began experiencing issues again at the end of April. He saw his PCP who started him on clindamycin 3/ and prescribed tramadol for his head pain. He finished this course of antibiotics, but symptoms actually worsened. He then saw his PCP again and was started on doxycycline 3/16, Ciprodex ear drops x7 days, and prednisone 20. At this point, Vicodin was prescribed for his pain. He then s aw ENT as well and was told he needed surgery. This was to occur but due to COVID-19 concerns in the community, all outpatient surgeries were canceled so his ENT doctor has been unable to do this. ?? Symptoms continued to worsen. He experiences severe debilitating headaches, ear pain, and pressure. He endorses sinus drainage that is yellow to green. He also has right ear drainage that he describes as yellow/brown discharge. He reports he has had symptoms in both ears, but the right has always been more severe. Due to this, he has had a significant decrease in his ability to hear, which was new as of 1 month ago. He has never had hearing issues with prior sinus infections. This manifests as a constant ringing/buzzing in his ears. He denies any fevers. Reports that about 1 month about he had a low grade temperature but was never above 100F. He is now taking Percocet for pain as well as Fioricet. He has had to seek care at his local ED for severe pain on 06/01 which improved somewhat with headache cocktail and 1L NS. ?? His ENT prescribed another course of clindamycin on 06/02 and started him on ofloxacin. He also had an MRI done which per report showed no masses, no arterial blockages, but did show significant inflammation on the left side of the head related to infection. His ENT doctor still feels he really needs surgery but he is unable to do so because of the restrictions with COVID. ?? He again sought care in the ED on 06/05 due to severe pain requiring morphine. His predinsone was increased to 50mg daily. He was referred to [facility] ENT but they cannot see him until 07/19 and he reports his symptoms are so severe he cannot wait. Due to continued symptoms, he reached out to his oncologist, who had him directly admitted for evaluation. ?? He denies travel outside the [place] or domestically, and has remained home for the past 30 days. He hasnot been exposed to anyone with COVID-19 or under investigation for COVID-19. His only contacts have been the members of his household, all of whom have remained in the home since 05/22. ?? He has been holding his Imbruvica and acyclovir since 05/30 Hospital Course: In summary of admission: Patient presented with acute worsening of persistent sinus symptoms, now with ear drainage, bilateral hearing loss. He had failed multiple courses of outpatient antibiotics and was having increasing symptoms that have required multiple ED evaluations. He had been recommended for surgical intervention by outpatient outside ENT, but had been unable to get this due to COVID restrictions. He was admitted for ENT evaluation and symptom control. CT head/sinus on admission showed left ostiomeatal unitocclusion with corresponding severe sinus disease involving the left frontal sinus, maxillary sinus, and anterior ethmoid air cells, nonspecific bilateral middle ear cavity opacities and mastoid air cell opacities without associated bony destruction. ENT was consulted. He was started on Zosyn. Saline rinses were performed. ENT placed bilateral myringotomy tubes 06/12. ID was consulted given reports of atypical sinus infections in patients on Imbruvica - felt to be unlikely given imaging and relative clinical stability. IgG was < 400, so IVIG was given 06/12. Wound swab noted mixed microorganisms and few non beta lactamase expressing H.influenzae (likely culprit given association with sinusitis and mastoiditis) and middle ear aspirate noted CONS which is unlikely to be pathogenic in this context. ID recommended levofloxacin 750 mg every day (QTc 396 06/14) x 14 days per BMT. Plan to discharge home with [facility] ENT notified to contact patient for follow up. Patient will continue Neilmed irrigations with dissolved mupirocin in saline into each nostril TID x 14 days as well as ciprofloxacin-dexamethasone drops 4 gtt BID in each ear also x 14 days In regards to other medical problems actively managed throughout admission: - SLL/CLL- now on ibrutinib with clinical evidence of response. His blood counts were near his baseline. His ibrutinib had been held prior to admission given plan for surgery. His OI prophylaxis withacyclovir was continued. Ibrutinib will continue to be held until antibiotic course is complete. - Hypogammaglobulinemia- IgG < 400, given recurrent sinus infections, given IVIG 06/12. He tolerated this with only chills after completion. He can continue to receive monthly IVIG infusions as outpatient. - Anxiety and depression - worsening mood, anxiety, and depression related to ongoing pain and hearing loss. Continued Lexapro and Xanax. Active Issues Requiring Follow-up: Antibiotics and otic drops Test Results Pending at Discharge: Pending Labs Order Current Status Aerobic and anaerobic culture and gram stain Aspirate Ear, middle, left Preliminary result Aerobic and anaerobic culture and gram stain Aspirate Ear, middle, right Preliminary result Blood culture Blood Peripheral Preliminary result Blood culture Blood Peripheral Preliminary result Mycology (fungal) culture Nasal Sinus Preliminary result Operative Procedures Performed: Myringotomy Discharge Details Physical Exam at Discharge: Discharge Condition: fair Pulse: 83 Resp: 20 BP: 117/68 Temp: 36.5 ??C (97.7 ??F) Weight: 119.7 kg (264 lb) Pertinent Exam Findings at Discharge: please see progress note from day of discharge Discharge Disposition: Discharge to home or self care Code Status at Discharge: FULL Discharge Instructions: Activity Instructions Discharge activity: Resume normal activity Diet Instructions Adult Discharge Diet Diet Type: Return to previous diet Other Instructions Call provider for: Temperature -Temperature greater than 101 degrees F Call provider for: extreme fatigue Call provider for: persistent nausea or vomiting Call provider for: redness, tenderness, or signs of infection (pain, swelling, redness, odor or green/yellow discharge around incision site) Call provider for: severe uncontrolled pain Discharge Medications: Current Medications TAKE these medications acyclovir 200 mg capsule Take 2 capsules by mouth twice daily Commonly known as: ZOVIRAX ALPRAZolam 0.25 mg tablet Take 0.5-1 tablets by mouth 3 (three) times a day as needed for anxiety Commonly known as: XANAX ilicukneqq-rkmaqoncicfog-agflhxbi 50-300-40 mg per capsule Take 1 capsule by mouth every 6 (six) hours as needed for headaches Commonly known as: FIORICET cetirizine 10 mg tablet Take 10 mg by mouth daily Commonly known as: ZyrTEC ciprofloxacin-dexAMETHasone otic suspension Administer 4 drops into each ear 2 (two) times a day for 14 days For: middle ear infection with tubes placed Commonly known as: CIPRODEX escitalopram 10 mg tablet Take 1 tablet by mouth daily Commonly known as: LEXAPRO fluticasone propionate 50 mcg/actuation nasal spray Administer 2 sprays into each nostril daily Commonly known as: FLONASE levoFLOXacin 750 mg tablet Take 1 tablet (750 mg total) by mouth daily for 14 days For: Skin/Soft Tissue Infection Commonly known as: LEVAQUIN mupirocin 2 % nasal ointment Mix Neilmed packet with warm sterile water and dissolve 1/2 tube of mupirocin ointment into solution. Commonly known as: BACTROBAN oxyCODONE-acetaminophen 7.5-325 mg per tablet Take 1 tablet by mouth every 6 (six) hours as needed for pain Commonly known as: PERCOCET predniSONE 50 mg tablet Take 50 mg by mouth daily Commonly known as: DELTASONE ranitidine 150 mg capsule Take 150 mg by mouth daily Commonly known as: ZANTAC sodium chloride-sodium bicarbonate packet with rinse device Administer 240 mL (1 packet total) into each nostril 3 (three) times a day for 14 days For: sinusitis Commonly known as: NEILMED SINUS RINSE, AYR Outpatient Follow-Up: Future Appointments Date Time Provider Department Center 06/25/2019 10:00 AM LAB, [facility] ONC LAB [facility] 06/25/2019 10:45 AM Burt Dos Santos MD PhD ONC [facility] Oncology Kaylee Chatterjee MD Internal Medicine documented in this encounter Discharge Instructions * Discharge Instructions* Kaylee Chatterjee MD - 06/15/2019 11:39 AM CDT For sinus rinses - Mix packet with warm sterile water (can purchase at drug store) and add in 1/2 tube of mupirocin ointment to dissolve into a solution. Rinse half of bottle in to each nostril. Perform at least twice daily for 14 days. Your ear drops have been substituted with ciprofloxacin-dexamethasone drops which are covered by your insurance - instill 4 drops in each ear twice daily for 14 days. You will complete 14 days of levofloxacin 750 mg daily by mouth. [facility] ENT clinic will call you to schedule a follow up appointment within the next 2 weeks. documented in this encounter Medications at Time of Discharge ALPRAZolam (XANAX) 0.25 mg tablet Take 0.5-1 tablets (0.125-0.25 mg total) by mouth 3 (three) times a day as needed for anxiety 05/18/2019 fluticasone (FLONASE) 50 mcg/actuation nasal spray Administer 2 sprays into each nostril daily 03/08/2015 cetirizine (ZyrTEC) 10 mg tablet Take 10 mg by mouth daily 0 predniSONE (DELTASONE) 50 mg tablet Take 50 mg by mouth daily 0 ciprofloxacin-dexA METHasone (CIPRODEX) otic suspensionIndicati ons:acute suppurative otitis media with tympanostomy tubes Administer 4 drops into each ear 2 (two) times a day for 14 days 7.5 mL 06/15/2019 0 levoFLOXacin (LEVAQUIN) 750 mg tabletIndications: Skin/Soft Tissue Infection Take 1 tablet (750 mg total) by mouth daily for 14 days 14 tablet 06/15/2019 0 sodium chloride-sodium bicarbonate (NEILMED SINUS RINSE, AYR) packet with rinse deviceIndications: sinusitis Administer 240 mL (1 packet total) into each nostril 3 (three) times a day for 14 days 50 each 06/15/2019 0 acyclovir (ZOVIRAX) 200 mg capsuleIndications :CLL (chronic lymphocytic leukemia) (HCC) Take 2 capsules by mouth twice daily 180 capsule 3 05/01/2019 0 butalbital-acetami nophen-caffeine (FIORICET) 50-300-40 mg per capsule Take 1 capsule by mouth every 6 (six) hours as needed for headaches 06/06/2019 0 escitalopram (LEXAPRO) 10 mg tablet Take 1 tablet by mouth daily 05/18/2019 0 mupirocin (BACTROBAN) 2 % nasal ointment Mix Neilmed packet with warm sterile water and dissolve 1/2 tube of mupirocin ointment into solution. 14 g 06/15/2019 0 oxyCODONE-acetamin ophen (PERCOCET) 7.5-325 mg per tablet Take 1 tablet by mouth every 6 (six) hours as needed for pain 06/06/2019 0 ranitidine (ZANTAC) 150 mg capsule Take 150 mg by mouth daily 0 documented as of this encounter Ordered Prescriptions Prescription Sig Dispense Quantity Refills Last Filled Start Date End Date sodium chloride-sodium bicarbonate (NEILMED SINUS RINSE, AYR) packet with rinse deviceIndications: sinusitis Administer 240 mL (1 packet total) into each nostril 3 (three) times a day for 14 days 50 each 06/15/2019 0 levoFLOXacin (LEVAQUIN) 750 mg tabletIndications: Skin/Soft Tissue Infection Take 1 tablet (750 mg total) by mouth daily for 14 days 14 tablet 06/15/2019 0 mupirocin (BACTROBAN) 2 % nasal ointment Mix Neilmed packet with warm sterile water and dissolve 1/2 tube of mupirocin ointment into solution. 14 g 06/15/2019 0 ciprofloxacin-dexA METHasone (CIPRODEX) otic suspensionIndicati ons:acute suppurative otitis media with tympanostomy tubes Administer 4 drops into each ear 2 (two) times a day for 14 days 7.5 mL 06/15/2019 0 ciprofloxacin-fluo cinolone (OTOVEL) otic solution Administer 0.25 mL into each ear 4 (four) times a day for 14 days 56 each 06/15/2019 0 documented in this encounter Discharge Disposition Disposition Code Departure Means Destination Discharge to home or self care documented in this encounter Progress Notes * Osvalod Naylor RN - 06/15/2019 12:54 PM CDT 06/15/19 1253 Discharge Summary Chart reviewed For Medical Necessity Does patient have a planned readmission to hospital planned? No Discharge Disposition Home Equipment/Provider Needs No Home Needs Identified Discharge Additional Assistance Does the patient need discharge transport arranged? No Discharge today * Osvaldo Naylor RN - 06/15/2019 12:28 PM CDT 06/15/19 1228 Communications Important Message from Medicare notice given to patient? Yes * Christopher Haddad MD - 06/15/2019 11:49 AM CDT BMT Progress Note BMT Day: Ibrutinib on hold since 05/31/19 for sinusitis Chief Complaint: Patient is a 68 y.o. male with chief complaint of sinusitis ear infection, and hearing loss. Subjective Ear tubes placed yesterday. His hearing better, less headache, feeling much better overall. IgG was low, received IVIG. Active Treatment Plans for Jeff Abdullahi Oncology Chemotherapy Treatment: Ibrutinib PO Daily - CLL (On Hold) Current day: Day 1, Cycle 4 (Planned for 08/10/2018) Following planned day: Day 1, Cycle 5 (Planned for 09/07/2018) All Medications Reviewed Review of Systems As per HIP, all other systems negative. Objective Vitals: 24hr Min/Max: Temp Min: 36.4 ??C (97.5 ??F) Max: 36.9 ??C (98.4 ??F) Pulse Min: 79 Max: 90 BP Min: 114/71 Max: 136/68 Resp Min: 18 Max: 20 SpO2 Min: 94 % Max: 97 % Most Recent : Vitals: 06/15/19 0300 BP: 117/68 BP Location: Right arm Patient Position: Lying Pulse: 83 Resp: 20 Temp: 36.5 ??C (97.7 ??F) TempSrc: Oral SpO2: 94% Weight: I/O last 2 completed shifts: In: 2064 [P.O.:1540; I.V.:60; IV Piggyback:465] Out: 1425 [Urine:1425] Physical exam: GEN: no acute distress HEENT: no mucositis, anicteric sclera Pulm: clear to ausculation bilaterally CV: rate and rhythm regular ABD: soft, nondistended, nontender, bowel sounds active Skin: no rashes, lesions Ext: No edema Neuro: alert, oriented x 4 Lab/Radiology/Diagnostic Review: CBC: Recent Labs Lab Units 06/15/19 0253 WBC K/cumm 7.4 HEMOGLOBIN g/dL 12.5* HEMATOCRIT % 37.7* MCV fL 98.2* MCH pg 32.6 MCHC g/dL 33.2 RDW CV % 15.4* RDWSD fL 54.4* MPV fL 10.8 NEUTROS ABS K/cumm 4.8 CMP: Recent Labs Lab Units 06/15/19 0253 SODIUM mmol/L 140 POTASSIUM PLASMA mmol/L 5.0* CO2 mmol/L 28 BUN SERUM mg/dL 13 GLUCOSE mg/dL 101 CREATININE mg/dL 0.93 CALCIUM mg/dL 9.1 CHLORIDE mmol/L 104 ALBUMIN g/dL 3.6 AST Units/L 41 ALT Units/L 38 ALK PHOS Units/L 88 BILIRUBIN TOTAL mg/dL 0.2 TOTAL PROTEIN g/dL 6.6 ANIONGAP mmol/L 8 LDH: Recent Labs Lab Units 06/15/19 0253 LACTATE DEHYDROGENASE (LDH) Units/L See Comment Uric Acid: Recent Labs Lab Units 06/15/19 0253 URIC ACID mg/dL 5.1 Tacrolimus level: Sirolimus level: Cyclosporine level: PT: Recent Labs Lab Units 06/15/19 0253 PROTIME (PT) sec 12.5 PTT: Recent Labs Lab Units 06/15/19 0253 APTT sec 27 Radiology: I have reviewed all recent imaging. Assessment/Plan CLL (chronic lymphocytic leukemia) ([facility]) SLL/CLL. Initially treated with FCR, obtained remission for 7 years, followed by relapse with treatment with ALT-803 plus rituximab clinical trial. ?? Later with persistent disease and now on ibrutinib with clinical evidence of response. His blood counts are near his baseline. - He has been holding his ibrutinib given he had planned for surgery - IVIG given 06/12 for hypogammaglobulinemia - Continue OI prophylaxis- acyclovir Anxiety and depression Worsening mood, anxiety, depression related to ongoing pain, hearing loss. - Continue Lexapro 10mg daily - Continue Xanax prn Acute recurrent sinusitis Acute worsening of persistent sinus symptoms, now with ear drainage, bilateral hearing loss. In thesetting of Imbruvica which has association with sinusitis. He has failed multiple courses of outpatient antibiotics and is having increasing symptoms that have required multiple ED evaluations. CT head/sinus shows left ostiomeatal unit occlusion with corresponding severe sinus disease involving theleft frontal sinus, maxillary sinus, and anterior ethmoid air cells, nonspecific bilateral middle ear cavity opacities and mastoid air cell opacities without associated bony destruction. Has been recommended for surgical intervention by outpatient ENT, but has been unable to get this due to COVID re strictions. Seen by ENT. - f/u additional ENT recommendations appreciate recommendations - Continue Zosyn 3.375 q6 hours, change to Levaquin and in light of sinusitis for total of 14 days - ID consulted- appreciate recommendations - Neilmed irrigations with dissolved mupirocin in saline into each nostril bid - Afrin tid x3 days - Bilateral myringotomy tubes on 06/12 - f/u nasal swab cultures - f/u blood cultures- NGTD - Continue Flonase, Zyrtec Hypogammaglobulinemia ([facility]) In setting of CLL. IgG < 400. Has recurrent sinus infections. - IVIG given 06/12 Dispo: D/C home today Christopher Haddad MD * Kaylee Chatterjee MD - 06/15/2019 11:06 AM CDT Daily Progress Note Bone Marrow Transplant Hospitalist Name: Jeff Abdullahi : 1950 Date: June 15, 2019 BMT Day: Imbruvica- on hold Subjective Chief complaint: Sinus pain Interval History: No acute events overnight. Afebrile, HD stable. Completed Afrin and is completing sinus washes on his own. Hearing continues to improve. Active Treatment Plans for Jeff Abdullahi Oncology Chemotherapy Treatment: Ibrutinib PO Daily - CLL (On Hold) Current day: Day 1, Cycle 4 (Planned for 08/10/2018) Following planned day: Day 1, Cycle 5 (Planned for 09/07/2018) Objective Scheduled Medications: acyclovir, 400 mg, oral, BID cetirizine, 10 mg, oral, Daily ciprofloxacin-fluocinolone, 0.25 mL, each ear, QID docusate sodium, 100 mg, oral, BID enoxaparin, 40 mg, subcutaneous, Daily-2100 escitalopram, 10 mg, oral, Daily famotidine, 20 mg, oral, Daily fluticasone propionate, 2 spray, each nostril, Daily mupirocin, , each nostril, TID piperacillin-tazobactam, 3.375 g, intravenous, Q6H DORIAN sodium chloride 0.9%, 0.5-20 mL, intra-catheter, Q8H DORIAN sodium chloride-sodium bicarbonate, 1 packet, each nostril, TID Continuous Medications: sodium chloride 0.9%, 0-250 mL PRN Medications: ??? acetaminophen ??? acetaminophen ??? ALPRAZolam ??? zgjgjsszhx-jzkibsxzjeqhv-fayatxex ??? camphor-menthoL ??? magnesium sulfate ??? magnesium sulfate ??? oxyCODONE-acetaminophen ??? polyethylene glycol ??? potassium chloride ??? potassium chloride ER ??? sodium chloride 0.9% ??? sodium chloride 0.9% Vitals: Most Recent : Vitals: 06/15/19 0300 BP: 117/68 Pulse: 83 Resp: 20 Temp: 36.5 ??C (97.7 ??F) SpO2: 94% 24hr Min/Max: Temp Min: 36.4 ??C (97.5 ??F) Max: 36.9 ??C (98.4 ??F) Pulse Min: 79 Max: 90 BP Min: 114/71 Max: 136/68 Resp Min: 18 Max: 20 SpO2 Min: 94 % Max: 97 % I&Os: I/O last 2 completed shifts: In: 2064 [P.O.:1540; I.V.:60; IV Piggyback:465] Out: 1425 [Urine:1425] I/O this shift: In: - Out: 600 [Urine:600] Physical Exam: Constitutional: Vitals as above. In no acute distress. Hard of hearing. Eyes: Sclera anicteric. ENT: Moist oral mucous membranes. No nasal drainage. No pain to percussion of maxillary/frontal sinuses. Cardiovascular: Normal rate, regular rhythm. No murmurs, rubs, or gallops. Respiratory: No respiratory distress on room air. Clear to auscultation bilaterally. Gastrointestinal: Abdomen soft, nondistended, nontender. Neurologic: Alert, oriented to person, place, and time. Extremities/MSK: Warm and well perfused. No lower extremity edema. Psychiatric: Pleasant and conversant. Affect appropriate. Skin: No evident skin lesions. Lab Results: Recent Results (from the past 24 hour(s)) Type and screen Collection Time: 06/15/19 2:53 AM Result Value Ref Range Calin, indirect Negative ABO Rh O Positive Comprehensive metabolic panel Collection Time: 06/15/19 2:53 AM Result Value Ref Range Sodium 140 135 - 145 mmol/L Potassium, pl 5.0 (H) 3.3 - 4.9 mmol/L Chloride 104 97 - 110 mmol/L CO2 28 22 - 32 mmol/L Anion gap 8 2 - 15 mmol/L BUN 13 8 - 25 mg/dL Creatinine 0.93 0.80 - 1.30 mg/dL Glucose 101 70 - 199 mg/dL Calcium 9.1 8.5 - 10.3 mg/dL Bilirubin, total 0.2 0.1 - 1.2 mg/dL Protein, pl 6.6 6.5 - 8.5 g/dL Albumin 3.6 3.5 - 5.0 g/dL Alk phos 88 40 - 130 Units/L ALT 38 7 - 55 Units/L AST 41 10 - 50 Units/L Uric acid Collection Time: 06/15/19 2:53 AM Result Value Ref Range Uric acid 5.1 3.0 - 8.0 mg/dL Lactate dehydrogenase (LD) Collection Time: 06/15/19 2:53 AM Result Value Ref Range Lactate dehydrogenase (LDH) See Comment 100 - 250 Units/L aPTT Collection Time: 06/15/19 2:53 AM Result Value Ref Range aPTT 27 25 - 37 sec Protime-INR Collection Time: 06/15/19 2:53 AM Result Value Ref Range PT 12.5 8.6 - 13.0 sec INR 1.2 0.8 - 1.2 CBC without differential Collection Time: 06/15/19 2:53 AM Result Value Ref Range WBC 7.4 3.8 - 9.9 K/cumm Hgb 12.5 (L) 13.0 - 17.5 g/dL Hct 37.7 (L) 38.9 - 50.3 % Plt 222 150 - 400 K/cumm MPV 10.8 9.1 - 12.3 fL RBC 3.84 (L) 4.30 - 5.80 M/cumm MCV 98.2 (H) 81.3 - 96.4 fL MCH 32.6 27.1 - 33.3 pg MCHC 33.2 32.3 - 35.7 g/dL RDW CV 15.4 (H) 11.1 - 14.9 % RDW SD 54.4 (H) 35.7 - 48.1 fL NRBC abs 0.03 (H) 0.00 - 0.01 K/cumm Manual Differential Collection Time: 06/15/19 2:53 AM Result Value Ref Range Differential Manual Cells Counted 115 Neutrophil abs 4.8 1.7 - 6.5 K/cumm Imm gran abs 0.2 (H) 0.0 - 0.1 K/cumm Lymphocyte abs 1.7 0.8 - 3.3 K/cumm Monocyte abs 0.5 0.2 - 0.8 K/cumm Eosinophil abs 0.1 0.0 - 0.5 K/cumm Basophil abs 0.1 0.0 - 0.1 K/cumm Neutrophil pct 65.2 % Lymphocyte pct 16.5 % Monocyte pct 7.0 % Eosinophil pct 0.9 % Basophil pct 1.7 % Myelocytes 1.7 % Promyelocyte 0.9 % Variant lymphs 6.1 % RBC morphology Normal Platelet estimate Adequate Magnesium Collection Time: 06/15/19 2:53 AM Result Value Ref Range Magnesium 2.1 1.4 - 2.5 mg/dL Phosphorus Collection Time: 06/15/19 2:53 AM Result Value Ref Range Phosphorus, pl 3.6 2.3 - 4.5 mg/dL Additional lab results: None I have reviewed the above laboratory results. Imaging Results: None Additional Diagnostics: None Assessment/Plan * Acute recurrent sinusitis Assessment & Plan Acute worsening of persistent sinus symptoms and initially presented with ear drainage, bilateral hearing loss. Patient had been on Imbruvica (held in anticipation of sinus surgery which had to be delayed due to COVID19 restrictions on elective surgery) which has association with sinusitis. He had f randa multiple courses of outpatient antibiotics. CT head/sinus [...] x 14 days; ciprofloxacin-fluocinolone drops switched to ciprofloxacin- dexamethasone drops 4 gtt BID in each ear [...] context. Recommended levofloxacin 750 mg every day x7 days (QTc 396 06/14) --> will plan to extend this to 14 days per BMT. Plan to discharge home with [facility] ENT notified to contact patient for follow up. - Continue Flonase, Zyrtec Hypogammaglobulinemia (CMS/HCC) Assessment & Plan In setting of CLL. IgG < 400. Has recurrent sinus infections. - S/p IVIG 06/12 Anxiety and depression Assessment & Plan Worsening mood, anxiety, depression related to ongoing pain, hearing loss. - Continue Lexapro 10mg daily - Continue Xanax 0.5 mg TID PRN CLL (chronic lymphocytic leukemia) ([facility]/HCC) Assessment & Plan SLL/CLL. Initially treated with FCR, obtained remission for 7 years, followed by relapse with treatment with ALT-803 plus rituximab clinical trial. ?? Later with persistent disease and now on ibrutinib with clinical evidence of response. His blood counts are near his baseline. S/p IVIG 06/12 for hypo gammaglobulinemia. - He has been holding his ibrutinib given he had planned for surgery - will continue to hold until antibiotic course completed - Continue OI prophylaxis- acyclovir Code Status: Full Code Diet: Adult Diet Regular DVT Prophylaxis: Lovenox Access: LEILA Chatterjee MD 06/15/2019 11:06 AM For patient related questions from 7am until 7pm, please contact the primary Hospitalist team. [id number] until 7am, please call the Hospitalist cross cover pager. * Christopher Haddad MD - 06/14/2019 11:41 AM CDT BMT Progress Note BMT Day: Ibrutinib on hold since 05/31/19 for sinusitis Chief Complaint: Patient is a 68 y.o. male with chief complaint of sinusitis ear infection, and hearing loss. Subjective Ear tubes placed yesterday. His hearing better, less headache, feeling much better overall. IgG was low, received IVIG yesterday. Active Treatment Plans for Jeff Abdullahi Oncology Chemotherapy Treatment: Ibrutinib PO Daily - CLL (On Hold) Current day: Day 1, Cycle 4 (Planned for 08/10/2018) Following planned day: Day 1, Cycle 5 (Planned for 09/07/2018) All Medications Reviewed Review of Systems As per HIP, all other systems negative. Objective Vitals: 24hr Min/Max: Temp Min: 36.4 ??C (97.5 ??F) Max: 36.8 ??C (98.2 ??F) Pulse Min: 72 Max: 99 BP Min: 119/67 Max: 150/85 Resp Min: 18 Max: 20 SpO2 Min: 92 % Max: 99 % Most Recent : Vitals: 06/14/19 1105 BP: 125/61 BP Location: Right arm Patient Position: Sitting Pulse: 83 Resp: 18 Temp: 36.7 ??C (98.1 ??F) TempSrc: Oral SpO2: 92% Weight: I/O last 2 completed shifts: In: 2270 [P.O.:2205; IV Piggyback:65] Out: 2200 [Urine:2200] Physical exam: GEN: no acute distress HEENT: no mucositis, anicteric sclera Pulm: clear to ausculation bilaterally CV: rate and rhythm regular ABD: soft, nondistended, nontender, bowel sounds active Skin: no rashes, lesions Ext: No edema Neuro: alert, oriented x 4 Lab/Radiology/Diagnostic Review: CBC: Recent Labs Lab Units 06/14/19 0521 WBC K/cumm 8.5 HEMOGLOBIN g/dL 11.6* HEMATOCRIT % 33.8* MCV fL 96.3 MCH pg 33.0 MCHC g/dL 34.3 RDW CV % 15.5* RDWSD fL 52.7* MPV fL 10.8 NEUTROS ABS K/cumm 6.3 CMP: Recent Labs Lab Units 06/14/19 0521 06/12/19 1038 SODIUM mmol/L 138 < > 138 POTASSIUM PLASMA mmol/L 4.0 < > 5.3* CO2 mmol/L 28 < > 26 BUN SERUM mg/dL 16 < > 26* GLUCOSE mg/dL 118 < > 208* CREATININE mg/dL 0.86 < > 0.82 CALCIUM mg/dL 8.3* < > 9.0 CHLORIDE mmol/L 105 < > 103 ALBUMIN g/dL -- -- 3.7 AST Units/L -- -- 46 ALT Units/L -- -- 50 ALK PHOS Units/L -- -- 97 BILIRUBIN TOTAL mg/dL -- -- 0.2 TOTAL PROTEIN g/dL -- -- 6.4* ANIONGAP mmol/L 5 < > 9 < > = values in this interval not displayed. LDH: Recent Labs Lab Units 06/12/19 1038 LACTATE DEHYDROGENASE (LDH) Units/L See Comment Uric Acid: Recent Labs Lab Units 06/12/19 1038 URIC ACID mg/dL 6.2 Tacrolimus level: Sirolimus level: Cyclosporine level: PT: Recent Labs Lab Units 06/12/19 1038 PROTIME (PT) sec 12.0 PTT: Recent Labs Lab Units 06/12/19 1038 APTT sec 23* Radiology: I have reviewed all recent imaging. Assessment/Plan CLL (chronic lymphocytic leukemia) ([facility]) SLL/CLL. Initially treated with FCR, obtained remission for 7 years, followed by relapse with treatment with ALT-803 plus rituximab clinical trial. ?? Later with persistent disease and now on ibrutinib with clinical evidence of response. His blood counts are near his baseline. - He has been holding his ibrutinib given he had planned for surgery - IVIG given 06/12 for hypogammaglobulinemia - Continue OI prophylaxis- acyclovir Anxiety and depression Worsening mood, anxiety, depression related to ongoing pain, hearing loss. - Continue Lexapro 10mg daily - Continue Xanax prn Acute recurrent sinusitis Acute worsening of persistent sinus symptoms, now with ear drainage, bilateral hearing loss. In thesetting of Imbruvica which has association with sinusitis. He has failed multiple courses of outpatient antibiotics and is having increasing symptoms that have required multiple ED evaluations. CT head/sinus shows left ostiomeatal unit occlusion with corresponding severe sinus disease involving theleft frontal sinus, maxillary sinus, and anterior ethmoid air cells, nonspecific bilateral middle ear cavity opacities and mastoid air cell opacities without associated bony destruction. Has been recommended for surgical intervention by outpatient ENT, but has been unable to get this due to COVID re strictions. Seen by ENT. - f/u additional ENT recommendations appreciate recommendations - Continue Zosyn 3.375 q6 hours (ENT prefers Unasyn but this is on shortage- discuss with ID) - ID consulted- appreciate recommendations - Neilmed irrigations with dissolved mupirocin in saline into each nostril bid - Afrin tid x3 days - Bilateral myringotomy tubes on 06/12 - f/u nasal swab cultures - f/u blood cultures- NGTD - Continue Flonase, Zyrtec Hypogammaglobulinemia ([facility]) In setting of CLL. IgG < 400. Has recurrent sinus infections. - IVIG given 06/12 Christopher Haddad MD * Ricardo Rizzo MD - 06/14/2019 7:10 AM CDT Daily Progress Note Bone Marrow Transplant Hospitalist Name: Jeff Abdullahi : 1950 Date: June 14, 2019 BMT Day: Imbruvica- on hold Subjective Chief complaint: Sinus pain Interval History: No acute events overnight. No new complaints this morning. Ongoing Afrin, sinus rinses. Awaiting IDrecs. ENT following, ear tubes placed yesterday. Hearing better, less headache, feeling much betteroverall. Received IVIG yesterday evening. Active Treatment Plans for Jeff Abdullahi Oncology Chemotherapy Treatment: Ibrutinib PO Daily - CLL (On Hold) Current day: Day 1, Cycle 4 (Planned for 08/10/2018) Following planned day: Day 1, Cycle 5 (Planned for 09/07/2018) Objective Scheduled Medications: acyclovir, 400 mg, oral, BID cetirizine, 10 mg, oral, Daily ciprofloxacin-fluocinolone, 0.25 mL, each ear, QID docusate sodium, 100 mg, oral, BID enoxaparin, 40 mg, subcutaneous, Daily-2100 escitalopram, 10 mg, oral, Daily famotidine, 20 mg, oral, Daily fluticasone propionate, 2 spray, each nostril, Daily mupirocin, , each nostril, TID oxymetazoline, 1 spray, each nostril, TID piperacillin-tazobactam, 3.375 g, intravenous, Q6H DORIAN sodium chloride 0.9%, 0.5-20 mL, intra-catheter, Q8H DORIAN sodium chloride-sodium bicarbonate, 1 packet, each nostril, TID Continuous Medications: sodium chloride 0.9%, 0-250 mL PRN Medications: ??? acetaminophen ??? acetaminophen ??? ALPRAZolam ??? [id number]-mevmdohzyfaht-qtcxotwn ??? camphor-menthoL ??? HYDROmorphone ??? magnesium sulfate ??? magnesium sulfate ??? oxyCODONE-acetaminophen ??? polyethylene glycol ??? potassium chloride ??? potassium chloride ER ??? sodium chloride 0.9% ??? sodium chloride 0.9% Vitals: Most Recent : Vitals: 06/14/19 0738 BP: 119/67 Pulse: 80 Resp: 18 Temp: 36.8 ??C (98.2 ??F) SpO2: 97% 24hr Min/Max: Temp Min: 36.4 ??C (97.5 ??F) Max: 36.8 ??C (98.2 ??F) Pulse Min: 72 Max: 99 BP Min: 119/67 Max: 150/85 Resp Min: 18 Max: 20 SpO2 Min: 92 % Max: 99 % I&Os: I/O last 2 completed shifts: In: 2270 [P.O.:2205; IV Piggyback:65] Out: 2200 [Urine:2200] No intake/output data recorded. Physical Exam: Constitutional: Vitals as above. In no acute distress. Hard of hearing. Eyes: Sclera anicteric. ENT: Moist oral mucous membranes. Cardiovascular: Normal rate, regular rhythm. No murmurs, rubs, or gallops. Respiratory: No respiratory distress on room air. Clear to auscultation bilaterally. Gastrointestinal: Abdomen soft, nondistended, nontender. Neurologic: Alert, oriented to person, place, and time. Extremities/MSK: Warm and well perfused. No lower extremity edema. Psychiatric: Pleasant and conversant. Affect appropriate. Skin: No evident skin lesions. Lab Results: Recent Results (from the past 24 hour(s)) Aerobic and anaerobic culture and gram stain Aspirate Ear, middle, right Collection Time: 06/13/19 11:12 AM Result Value Ref Range Direct Specimen Exam (.) Stain: Moderate polymorphonuclear leukocytes seen. Rare Yeast Aerobic and anaerobic culture and gram stain Aspirate Ear, middle, left Collection Time: 06/13/19 11:13 AM Result Value Ref Range Direct Specimen Exam Stain: No polymorphonuclear leukocytes seen. No organisms seen. Immunoglobulin profile Collection Time: 06/13/19 4:36 PM Result Value Ref Range Immunoglobulin G <300.0 (L) 700.0 - 1,600.0 mg/dL Immunoglobulin A <50.0 (L) 70.0 - 400.0 mg/dL Immunoglobulin M <25.0 (L) 40.0 - 230.0 mg/dL Basic metabolic panel Collection Time: 06/14/19 5:21 AM Result Value Ref Range Sodium 138 135 - 145 mmol/L Potassium, pl 4.0 3.3 - 4.9 mmol/L Chloride 105 97 - 110 mmol/L CO2 28 22 - 32 mmol/L Anion gap 5 2 - 15 mmol/L BUN 16 8 - 25 mg/dL Creatinine 0.86 0.80 - 1.30 mg/dL Glucose 118 70 - 199 mg/dL Calcium 8.3 (L) 8.5 - 10.3 mg/dL Magnesium Collection Time: 06/14/19 5:21 AM Result Value Ref Range Magnesium 2.0 1.4 - 2.5 mg/dL Phosphorus Collection Time: 06/14/19 5:21 AM Result Value Ref Range Phosphorus, pl 3.3 2.3 - 4.5 mg/dL CBC without differential Collection Time: 06/14/19 5:21 AM Result Value Ref Range WBC 8.5 3.8 - 9.9 K/cumm Hgb 11.6 (L) 13.0 - 17.5 g/dL Hct 33.8 (L) 38.9 - 50.3 % Plt 202 150 - 400 K/cumm MPV 10.8 9.1 - 12.3 fL RBC 3.51 (L) 4.30 - 5.80 M/cumm MCV 96.3 81.3 - 96.4 fL MCH 33.0 27.1 - 33.3 pg MCHC 34.3 32.3 - 35.7 g/dL RDW CV 15.5 (H) 11.1 - 14.9 % RDW SD 52.7 (H) 35.7 - 48.1 fL NRBC abs 0.02 (H) 0.00 - 0.01 K/cumm Manual Differential Collection Time: 06/14/19 5:21 AM Result Value Ref Range Differential Manual Cells Counted 113 Neutrophil abs 6.3 1.7 - 6.5 K/cumm Imm gran abs 0.2 (H) 0.0 - 0.1 K/cumm Lymphocyte abs 1.8 0.8 - 3.3 K/cumm Monocyte abs 0.1 (L) 0.2 - 0.8 K/cumm Eosinophil abs 0.2 0.0 - 0.5 K/cumm Neutrophil pct 74.2 % Lymphocyte pct 18.6 % Monocyte pct 0.9 % Eosinophil pct 1.8 % Neutrophilic metamyelocytes 1.8 % Variant lymphs 2.7 % RBC morphology Normal Platelet estimate Adequate Additional lab results: None I have reviewed the above laboratory results. Imaging Results: None Additional Diagnostics: None Assessment/Plan * Acute recurrent sinusitis Assessment & Plan Acute worsening of persistent sinus symptoms, now with ear drainage, bilateral hearing loss. In thesetting of Imbruvica which has association with sinusitis. He has failed multiple courses of outpatient antibiotics and is having increasing symptoms that have required multiple ED evaluations. CT head/sinus shows left ostiomeatal unit occlusion with corresponding severe sinus disease involving theleft frontal sinus, maxillary sinus, and anterior ethmoid air cells, nonspecific bilateral middle ear cavity opacities and mastoid air cell opacities without associated bony destruction. Has been recommended for surgical intervention by outpatient ENT, but has been unable to get this due to COVID re strictions. Seen by ENT. - f/u additional ENT recommendations appreciate recommendations - Continue Zosyn 3.375 q6 hours (ENT prefers Unasyn but this is on shortage- discuss with ID) - ID consulted- appreciate recommendations - Neilmed irrigations with dissolved mupirocin in saline into each nostril bid - Afrin tid x3 days - Potential bilateral myringotomy tubes in clinic with ENT pending approval - f/u nasal swab cultures - f/u blood cultures- NGTD - Discussed with ENT- given reports of atypical sinus infections in patients on Imbruvica, will consult ID for further evaluation - Continue Flonase, Zyrtec Hypogammaglobulinemia ([facility]/HCC) Assessment & Plan In setting of CLL. IgG < 400. Has recurrent sinus infections. - IVIG given 06/12 CLL (chronic lymphocytic leukemia) ([facility]/HCC) Assessment & Plan SLL/CLL. Initially treated with FCR, obtained remission for 7 years, followed by relapse with treatment with ALT-803 plus rituximab clinical trial. ?? Later with persistent disease and now on ibrutinib with clinical evidence of response. His blood counts are near his baseline. - He has been holding his ibrutinib given he had planned for surgery - IVIG given 06/12 for hypogammaglobulinemia - Continue OI prophylaxis- acyclovir Anxiety and depression Assessment & Plan Worsening mood, anxiety, depression related to ongoing pain, hearing loss. - Continue Lexapro 10mg daily - Continue Xanax prn Code Status: Full Code Diet: Adult Diet Regular DVT Prophylaxis: Lovenox Access: PIV Ricardo Rizzo MD 06/14/2019 8:52 AM For patient related questions from 7am until 7pm, please contact the primary Hospitalist team. [id number] until 7am, please call the Hospitalist cross cover pager. * Danika Lockett RN - 06/13/2019 2:14 PM CDT 06/13/19 1400 Information Information Obtained From Spouse Name Zenobia Referral Data Referral Source Other (Comment) Referral Reason Discharge Planning Prior to Admission Primary Caregiver Self Support System Spouse/Significant Other Support system contact info (name, phone, availablity) Zenobia Talbert [phone] Home Care Services No Durable Medical Equipment None Living Arrangements Spouse/significant other Type of Residence Private residence Steps in home? Yes, Outside of home Number of steps outside: 1 steps Financial Resource Income Residential/Pension Payor Source Medicare ([employer] ) Potential Discharge Needs Anticipated discharge level of care Private residence Pt/Family agrees with Anticipated Level of Care Yes Patient expects to be discharged to: Private residence Dialysis No Behavioral Health Services No Chart reviewed for: Medical Necessity Patient admitted for: ??Pt with history of recurrent SLL/CLL??who was admitted for worsening sinus pain, drainage, loss of hearing. Information obtained from: Patient's via phone, pt not available at time of interview. Additional information/Options Discussed: None Plan includes: Discharge home when stable. Insurances verified as: [employer] Prescription coverage verified as: [employer] Admission Source verified as: Home PCP Confirmed as:Lenin Ventura MD Pt and family agree with plan. Base on a comprehensive family assessment, assistance with instrumental activities of daily living after discharge will be provided by . Through the course of our work I determined that possesses the skill and ability to provide and monitor the care of the patient when he or she returns home. has the capacity to provide/monitor/arrange for the care of the patient. Finally, we determined that XXX has the knowledge of available resources and that combining them with their existing resources will suffice to sustain and carefor the patient when he or she returns home. The treatment team is aware of this information. All are in agreement with the aftercare plan. * Ricardo Rizzo MD - 06/13/2019 7:23 AM CDT Daily Progress Note Bone Marrow Transplant Hospitalist Name: Jeff Abdullahi : 1950 Date: June 13, 2019 BMT Day: Imbruvica- on hold Subjective Chief complaint: Sinus pain Interval History: No acute events overnight. No new complaints this morning. Started Afrin, sinus rinses yesterday. Continues on antibiotics. ENT potentially placing ear tubes today. Active Treatment Plans for Jeff Abdullahi Oncology Chemotherapy Treatment: Ibrutinib PO Daily - CLL (On Hold) Current day: Day 1, Cycle 4 (Planned for 08/10/2018) Following planned day: Day 1, Cycle 5 (Planned for 09/07/2018) Objective Scheduled Medications: acyclovir, 400 mg, oral, BID cetirizine, 10 mg, oral, Daily docusate sodium, 100 mg, oral, BID enoxaparin, 40 mg, subcutaneous, Daily-2100 escitalopram, 10 mg, oral, Daily famotidine, 20 mg, oral, Daily fluticasone propionate, 2 spray, each nostril, Daily mupirocin, , each nostril, TID oxymetazoline, 1 spray, each nostril, TID piperacillin-tazobactam, 3.375 g, intravenous, Q6H DORIAN sodium chloride 0.9%, 0.5-20 mL, intra-catheter, Q8H DORIAN sodium chloride-sodium bicarbonate, 1 packet, each nostril, TID Continuous Medications: sodium chloride 0.9%, 0-250 mL PRN Medications: ??? acetaminophen ??? acetaminophen ??? ALPRAZolam ??? clspoauwfl-aulmlqmutphap-junjavid ??? camphor-menthoL ??? HYDROmorphone ??? magnesium sulfate ??? magnesium sulfate ??? oxyCODONE-acetaminophen ??? polyethylene glycol ??? potassium chloride ??? potassium chloride ER ??? sodium chloride 0.9% ??? sodium chloride 0.9% Vitals: Most Recent : Vitals: 06/13/19 0314 BP: 123/87 Pulse: 71 Resp: 18 Temp: 36.5 ??C (97.7 ??F) SpO2: 94% 24hr Min/Max: Temp Min: 36.5 ??C (97.7 ??F) Max: 37.4 ??C (99.3 ??F) Pulse Min: 71 Max: 90 BP Min: 123/87 Max: 138/67 Resp Min: 18 Max: 18 SpO2 Min: 93 % Max: 94 % I&Os: I/O last 2 completed shifts: In: 854 [P.O.:640; I.V.:139; IV Piggyback:75] Out: 2180 [Urine:2180] No intake/output data recorded. Physical Exam: Constitutional: Vitals as above. In no acute distress. Hard of hearing. Eyes: Sclera anicteric. ENT: Moist oral mucous membranes. Cardiovascular: Normal rate, regular rhythm. No murmurs, rubs, or gallops. Respiratory: No respiratory distress on room air. Clear to auscultation bilaterally. Gastrointestinal: Abdomen soft, nondistended, nontender. Neurologic: Alert, oriented to person, place, and time. Extremities/MSK: Warm and well perfused. No lower extremity edema. Psychiatric: Pleasant and conversant. Affect appropriate. Skin: No evident skin lesions. Lab Results: Recent Results (from the past 24 hour(s)) Blood culture Blood Peripheral Collection Time: 06/12/19 5:17 PM Result Value Ref Range Report Preliminary Report: No growth to date. Blood culture Blood Peripheral Collection Time: 06/12/19 5:17 PM Result Value Ref Range Report Preliminary Report: No growth to date. Aerobic and anaerobic culture and gram stain Wound Not specified Collection Time: 06/12/19 6:18 PM Result Value Ref Range Direct Specimen Exam Stain: Moderate polymorphonuclear leukocytes seen. Rare Gram Positive Bacilli Report Preliminary Report: Culture results pending. (.) Basic metabolic panel Collection Time: 06/13/19 5:23 AM Result Value Ref Range Sodium 139 135 - 145 mmol/L Potassium, pl 3.9 3.3 - 4.9 mmol/L Chloride 105 97 - 110 mmol/L CO2 27 22 - 32 mmol/L Anion gap 7 2 - 15 mmol/L BUN 18 8 - 25 mg/dL Creatinine 0.88 0.80 - 1.30 mg/dL Glucose 123 70 - 199 mg/dL Calcium 8.6 8.5 - 10.3 mg/dL Magnesium Collection Time: 06/13/19 5:23 AM Result Value Ref Range Magnesium 2.1 1.4 - 2.5 mg/dL Phosphorus Collection Time: 06/13/19 5:23 AM Result Value Ref Range Phosphorus, pl 3.7 2.3 - 4.5 mg/dL CBC without differential Collection Time: 06/13/19 5:23 AM Result Value Ref Range WBC 12.3 (H) 3.8 - 9.9 K/cumm Hgb 11.6 (L) 13.0 - 17.5 g/dL Hct 35.1 (L) 38.9 - 50.3 % Plt 204 150 - 400 K/cumm MPV 10.9 9.1 - 12.3 fL RBC 3.62 (L) 4.30 - 5.80 M/cumm MCV 97.0 (H) 81.3 - 96.4 fL MCH 32.0 27.1 - 33.3 pg MCHC 33.0 32.3 - 35.7 g/dL RDW CV 15.2 (H) 11.1 - 14.9 % RDW SD 52.1 (H) 35.7 - 48.1 fL NRBC abs 0.03 (H) 0.00 - 0.01 K/cumm Manual Differential Collection Time: 06/13/19 5:23 AM Result Value Ref Range Differential Manual Cells Counted 114 Neutrophil abs 8.4 (H) 1.7 - 6.5 K/cumm Imm gran abs 0.2 (H) 0.0 - 0.1 K/cumm Lymphocyte abs 3.2 0.8 - 3.3 K/cumm Monocyte abs 0.2 0.2 - 0.8 K/cumm Basophil abs 0.2 (H) 0.0 - 0.1 K/cumm Neutrophil pct 68.3 % Lymphocyte pct 26.3 % Monocyte pct 1.8 % Basophil pct 1.8 % Myelocytes 1.8 % RBC morphology Present (A) Anisocytosis Slight (A) Platelet estimate Adequate Additional lab results: None I have reviewed the above laboratory results. Imaging Results: None Additional Diagnostics: None Assessment/Plan * Acute recurrent sinusitis Assessment & Plan Acute worsening of persistent sinus symptoms, now with ear drainage, bilateral hearing loss. In thesetting of Imbruvica which has association with sinusitis. He has failed multiple courses of outpatient antibiotics and is having increasing symptoms that have required multiple ED evaluations. CT head/sinus shows left ostiomeatal unit occlusion with corresponding severe sinus disease involving theleft frontal sinus, maxillary sinus, and anterior ethmoid air cells, nonspecific bilateral middle ear cavity opacities and mastoid air cell opacities without associated bony destruction. Has been recommended for surgical intervention by outpatient ENT, but has been unable to get this due to COVID re strictions. Seen by ENT. - f/u additional ENT recommendations appreciate recommendations - Continue Zosyn 3.375 q6 hours (ENT prefers Unasyn but this is on shortage- discuss with ID) - Neilmed irrigations with dissolved mupirocin in saline into each nostril bid - Afrin tid x3 days - Potential bilateral myringotomy tubes in clinic with ENT pending approval - f/u nasal swab cultures - f/u blood cultures- NGTD - Discussed with ENT- given reports of atypical sinus infections in patients on Imbruvica, will consult ID for further evaluation - Continue Flonase, Zyrtec CLL (chronic lymphocytic leukemia) ([facility]) Assessment & Plan SLL/CLL. Initially treated with FCR, obtained remission for 7 years, followed by relapse with treatment with ALT-803 plus rituximab clinical trial. ?? Later with persistent disease and now on ibrutinib with clinical evidence of response. His blood counts are near his baseline. - He has been holding his ibrutinib given he had planned for surgery - Check immunoglobulin levels - Continue OI prophylaxis- acyclovir Anxiety and depression Assessment & Plan Worsening mood, anxiety, depression related to ongoing pain, hearing loss. - Continue Lexapro 10mg daily - Continue Xanax prn Code Status: Full Code Diet: Adult Diet Regular DVT Prophylaxis: Lovenox Access: PIV Ricardo Rizzo MD 06/13/2019 11:14 AM For patient related questions from 7am until 7pm, please contact the primary Hospitalist team. [id number] until 7am, please call the Hospitalist [place] cover pager. documented in this encounter H&P Notes * Christopher Haddad MD - 06/13/2019 11:59 AM CDT BMT History & Physical BMT Day: Ibrutinib on hold since 05/31/19 for sinusitis Chief Complaint: Patient is a 68 y.o. male with chief complaint of sinusitis ear infection, and hearing loss. Subjective HPI: Mr Abdullahi is a 68 y.o. male with history of recurrent SLL/CLL who was admitted for worsening sinus pain, drainage, loss of hearing. ?? Patient has had multiple occasions of sinusitis since being on imbruvica. He developed ongoing sinusitis 12/2018-03/2019 and received multiple rounds of antibiotics and steroids. He established with Dr. Alexei Wilcox at [facility] In [place] who he follows with. He had a CT sinus atthat time that only showed a polyp. He recovered by March. ?? He then began experiencing issues again at the end of April. He saw his PCP who started him on clindamycin 05/06 and prescribed tramadol for his head pain. He finished this course of antibiotics, but symptoms actually worsened. He then saw his PCP again and was started on doxycycline 05/17, Ciprodex ear drops x7 days, and prednisone 20. At this point, Vicodin was prescribed for his pain. He then saw ENT as well and was told he needed surgery. This was to occur but due to COVID-19 concerns in the community, all outpatient surgeries were canceled so his ENT doctor has been unable to do this. ?? Symptoms continued to worsen. He experiences severe debilitating headaches, ear pain, and pressure. He endorses sinus drainage that is yellow to green. He also has right ear drainage that he describes as yellow/brown discharge. He reports he has had symptoms in both ears, but the right has always been more severe. Due to this, he has had a significant decrease in his ability to hear, which was new as of 1 month ago. He has never had hearing issues with prior sinus infections. This manifests as a constant ringing/buzzing in his ears. He denies any fevers. Reports that about 1 month about he had a low grade temperature but was never above 100F. He is now taking Percocet for pain as well as Fioricet. He has had to seek care at his local ED for severe pain on 06/01 which improved somewhat with headache cocktail and 1L NS. ?? His ENT prescribed another course of clindamycin on 06/02 and started him on ofloxacin. He also had an MRI done which per report showed no masses, no arterial blockages, but did show significant inflammation on the left side of the head related to infection. His ENT doctor still feels he really needssurgery but he is unable to do so because of the restrictions with COVID. ?? He again sought care in the ED on 06/05 due to severe pain requiring morphine. His predinsone was increased to 50mg daily. He was referred to [facility] but they cannot see him until 07/19 and he reports his symptoms are so severe he cannot wait. Due to continued symptoms, he reached out to his oncologist, who had him directly admitted for evaluation. ?? He denies travel outside the [place] or domestically, and has remained home for the past 30 days. He hasnot been exposed to anyone with COVID-19 or under investigation for COVID-19. His only contacts have been the members of his household, all of whom have remained in the home since 05/22. ?? He has been holding his Imbruvica and acyclovir since 05/30. No new change since admission. He was started on Zosyn upon admission here. Cancer Staging No matching staging information was found for the patient. CLL (chronic lymphocytic leukemia) ([facility]) 07/03/2005 Initial Diagnosis Lymphoma, small [...] then q2mo x 4; on clinical trial [facility] [id number] --> stable disease on CT; marrow 30-40% invovled 09/01/15 05/29/2018 - Targeted Therapy Imbruvica 420mg daily Active Treatment Plans for Jeff Abdullahi Oncology Chemotherapy Treatment: Ibrutinib PO Daily - CLL (On Hold) Current day: Day 1, Cycle 4 (Planned for 08/10/2018) Following planned day: Day 1, Cycle 5 (Planned for 09/07/2018) Past Medical History: Diagnosis Date ??? Anxiety and depression ??? Chronic sinusitis ??? CLL (chronic lymphocytic leukemia) (CMS/HCC) ??? Kidney stones ??? Shingles ??? Thyroid nodule 06/12/2019 Past Surgical History: Procedure Laterality Date ??? BIOPSY LYMPH NODE SUPERFICIAL N/A 12/07/2014 ??? CERVICAL SPINE SURGERY [address] Shaquille King at [facility] ??? [facility] LYMPH NODE BIOPSY 2006 Allergies Allergen Reactions ??? Cefuroxime Unknown ??? Codeine Unknown Medications Prior to Admission Medication Sig Dispense Refill Last Dose ??? cetirizine (ZyrTEC) 10 mg tablet Take 10 mg by mouth daily 06/12/2019 at Unknown time ??? ofloxacin (FLOXIN) 0.3 % otic solution Administer 10 drops into each ear daily 06/12/2019 at Unknown time ??? predniSONE (DELTASONE) 50 mg tablet Take 50 mg by mouth daily 06/12/2019 at Unknown time ??? acyclovir (ZOVIRAX) 200 mg capsule Take 2 capsules by mouth twice daily 180 capsule 3 Past Month at Unknown time ??? ALPRAZolam (XANAX) 0.25 mg tablet Take 0.5-1 tablets by mouth 3 (three) times a day as needed for anxiety 06/12/2019 at Unknown time ??? qpnpaokgva-ekmqvmgjxfjrd-gfrlxsnc (FIORICET) 50-300-40 mg per capsule Take 1 capsule by mouth every 6 (six) hours as needed for headaches 06/12/2019 at Unknown time ??? clindamycin (CLEOCIN) 300 mg capsule Take 1 capsule by mouth 3 (three) times a day 06/12/2019 atUnknown time ??? escitalopram (LEXAPRO) 10 mg tablet Take 1 tablet by mouth daily 06/12/2019 at Unknown time ??? fluticasone (FLONASE) 50 mcg/actuation nasal spray Administer 2 sprays into each nostril daily 06/12/2019 at Unknown time ??? IMBRUVICA 420 mg tablet TAKE 1 TABLET (420MG) BY MOUTH ONCE DAILY. 28 tablet 1 Past Month at Unknown time ??? oxyCODONE-acetaminophen (PERCOCET) 7.5-325 mg per tablet Take 1 tablet by mouth every 6 (six) hours as needed for pain 06/12/2019 at Unknown time ??? ranitidine (ZANTAC) 150 mg capsule Take 150 mg by mouth daily 06/12/2019 at Unknown time All Medications Reviewed Family History Problem Relation Age of Onset ??? Heart disease Father ??? Hypertension Father ??? Diabetes Father ??? Glaucoma Father ??? Atrial fibrillation Father ??? Coronary artery disease Father ??? Macular degeneration Mother ??? Hypertension Mother ??? Anxiety disorder Mother ??? Depression Daughter ??? Depression Son ??? Anxiety disorder Daughter ??? Anxiety disorder Son ??? Colon cancer Other Social History Tobacco Use ??? Smoking status: Former Smoker ??? Smokeless tobacco: Never Used Substance Use Topics ??? Alcohol use: Not Currently Review of Systems As per HPI, all other systems negative. Objective Vitals: Arrival Vitals [06/12/19 1012] Temp 36.6 ??C (97.9 ??F) Pulse 93 Resp 18 BP 136/71 SpO2 98 % Temp src Oral Heart Rate Source Monitor Patient Position Lying BP Location Right arm FiO2 (%) 24hr Min/Max: Temp Min: 36.4 ??C (97.5 ??F) Max: 37.4 ??C (99.3 ??F) Pulse Min: 71 Max: 90 BP Min: 123/87 Max: 138/67 Resp Min: 18 Max: 18 SpO2 Min: 93 % Max: 98 % Most Recent : Vitals: 06/13/19 0900 BP: 124/64 BP Location: Right leg Patient Position: Sitting Pulse: 78 Resp: 18 Temp: 36.4 ??C (97.5 ??F) TempSrc: Axillary SpO2: 98% Weight: I/O last 2 completed shifts: In: 854 [P.O.:640; I.V.:139; IV Piggyback:75] Out: 2180 [Urine:2180] Physical exam: GEN: no acute distress HEENT: no mucositis, anicteric sclera, rhinorrhea and drainage from right ear Pulm: clear to ausculation bilaterally CV: rate and rhythm regular ABD: soft, nondistended, nontender, bowel sounds active Skin: no rashes, lesions Ext: No edema Neuro: alert, oriented x 4 Lab/Radiology/Diagnostic Review: CBC: Recent Labs Lab Units 06/13/19522 WBC K/cumm 12.3* HEMOGLOBIN g/dL 11.6* HEMATOCRIT % 35.1* MCV fL 97.0* MCH pg 32.0 MCHC g/dL 33.0 RDW CV % 15.2* RDWSD fL 52.1* MPV fL 10.9 NEUTROS ABS K/cumm 8.4* CMP: Recent Labs Lab Units 06/13/19 0523 06/12/19 1038 SODIUM mmol/L 139 138 POTASSIUM PLASMA mmol/L 3.9 5.3* CO2 mmol/L 27 26 BUN SERUM mg/dL 18 26* GLUCOSE mg/dL 123 208* CREATININE mg/dL 0.88 0.82 CALCIUM mg/dL 8.6 9.0 CHLORIDE mmol/L 105 103 ALBUMIN g/dL -- 3.7 AST Units/L -- 46 ALT Units/L -- 50 ALK PHOS Units/L -- 97 BILIRUBIN TOTAL mg/dL -- 0.2 TOTAL PROTEIN g/dL -- 6.4* ANIONGAP mmol/L 7 9 LDH: Recent Labs Lab Units 06/12/19 1038 LACTATE DEHYDROGENASE (LDH) Units/L See Comment Uric Acid: Recent Labs Lab Units 06/12/19 1038 URIC ACID mg/dL 6.2 Tacrolimus level: Sirolimus level: Cyclosporine level: PT: Recent Labs Lab Units 06/12/19 1038 PROTIME (PT) sec 12.0 PTT: Recent Labs Lab Units 06/12/19 1038 APTT sec 23* Radiology: I have reviewed all current imaging. Pathology: I have reviewed the current pathology. Assessment/Plan CLL (chronic lymphocytic leukemia) (CMS/HCC) SLL/CLL. Initially treated with FCR, obtained remission for 7 years, followed by relapse with treatment with ALT-803 plus rituximab clinical trial. ?? Later with persistent disease and now on ibrutinib with clinical evidence of response. His blood counts are near his baseline. His disease is fairlywell controlled now. - Continue to hold ibrutinib - Check immunoglobulin levels, give IVIG if IgG is less than 400 - Continue OI prophylaxis- acyclovir Anxiety and depression Worsening mood, anxiety, depression related to ongoing pain, hearing loss. - Continue Lexapro 10mg daily - Continue Xanax prn Acute recurrent sinusitis Acute worsening of persistent sinus symptoms, now with ear drainage, bilateral hearing loss. In thesetting of Imbruvica which has association with sinusitis. He has failed multiple courses of outpatient antibiotics and is having increasing symptoms that have required multiple ED evaluations. CT head/sinus shows left ostiomeatal unit occlusion with corresponding severe sinus disease involving theleft frontal sinus, maxillary sinus, and anterior ethmoid air cells, nonspecific bilateral middle ear cavity opacities and mastoid air cell opacities without associated bony destruction. Has been recommended for surgical intervention by outpatient ENT, but has been unable to get this due to COVID re strictions. Seen by ENT. - f/u additional ENT recommendations appreciate recommendations - Continue Zosyn 3.375 q6 hours (ENT prefers Unasyn but this is on shortage- discuss with ID) - Neilmed irrigations with dissolved mupirocin in saline into each nostril bid - Afrin tid x3 days - Bilateral myringotomy tubes on 06/12 with cultures - f/u nasal swab cultures - f/u blood cultures- NGTD - Discussed with ENT- given reports of atypical sinus infections in patients on Imbruvica, will consult ID for further evaluation - Continue Flonase, Zyrtec Christopher Haddad MD * Ricardo Rizzo MD - 06/12/2019 1:16 PM CDT History and Physical Bone Marrow Transplant Hospitalist Name: Jeff Abdullahi : 1950 Date: June 12, 2019 BMT Day: Imbruvica- on hold Subjective Chief Complaint: Sinus pain, drainage HPI: Jeff Abdullahi is a 68 y.o. male with history of recurrent SLL/CLL who presents with worsening sinus pain, drainage, loss of hearing. Patient has had multiple occasions of sinusitis since being on imbruvica. He developed ongoing sinusitis 12/2018-03/2019 and received multiple rounds of antibiotics and steroids. He established with Dr. Alexei Wilcox at [facility] In [place] who he follows with. He had a CT sinus atthat time that only showed a polyp. He recovered by March. He then began experiencing issues again at the end of April. He saw his PCP who started him on clindamycin 05/06 and prescribed tramadol for his head pain. He finished this course of antibiotics, but symptoms actually worsened. He then saw his PCP again and was started on doxycycline 05/17, Ciprodex ear drops x7 days, and prednisone 20. At this point, Vicodin was prescribed for his pain. He then saw ENT as well and was told he needed surgery. This was to occur but due to COVID-19 concerns in the community, all outpatient surgeries were canceled so his ENT doctor has been unable to do this. Symptoms continued to worsen. He experiences severe debilitating headaches, ear pain, and pressure. He endorses sinus drainage that is yellow to green. He also has right ear drainage that he describes as yellow/brown discharge. He reports he has had symptoms in both ears, but the right has always been more severe. Due to this, he has had a significant decrease in his ability to hear, which was new as of 1 month ago. He has never had hearing issues with prior sinus infections. This manifests as a constant ringing/buzzing in his ears. He denies any fevers. Reports that about 1 month about he had a low grade temperature but was never above 100F. He is now taking Percocet for pain as well as Fioricet. He has had to seek care at his local ED for severe pain on 06/01 which improved somewhat with headache cocktail and 1L NS. His ENT prescribed another course of clindamycin on 06/02 and started him on ofloxacin. He also had an MRI done which per report showed no masses, no arterial blockages, but did show significant inflammation on the left side of the head related to infection. His ENT doctor still feels he really needssurgery but he is unable to do so because of the restrictions with COVID. He again sought care in the ED on 06/05 due to severe pain requiring morphine. His predinsone was increased to 50mg daily. [facility] but they cannot see him until 07/19 and he reports his symptoms are so severe he cannot wait. Due to continued symptoms, he reached out to his oncologist, who had him directly admitted for evaluation. He denies travel outside the [place] or domestically, and has remained home for the past 30 days. He hasnot been exposed to anyone with COVID-19 or under investigation for COVID-19. His only contacts have been the members of his household, all of whom have remained in the home since 05/22. He has been holding his Imbruvica and acyclovir since 05/30. Oncologic History: SLL/CLL. Initially treated with FCR, obtained remission for 7 years. Then relapsed and treated on the ALT-803 plus rituximab clinical trial. His disease was stable for 2 years. He then showed evidence of persistent disease with enlarging lymph nodes. He was initiated on ibrutinib and has clinical evidence of response. He has had easy bruising and nail changes with this. Cancer Staging No matching staging information was found for the patient. CLL (chronic lymphocytic leukemia) ([facility]) 07/03/2005 Initial Diagnosis Lymphoma, small [...] then q2mo x 4; on clinical trial [facility] [id number] --> stable disease on CT; marrow 30-40% invovled 09/01/15 05/29/2018 - Targeted Therapy Imbruvica 420mg daily Active Treatment Plans for Jeff Abdullahi Oncology Chemotherapy Treatment: Ibrutinib PO Daily - CLL (On Hold) Current day: Day 1, Cycle 4 (Planned for 08/10/2018) Following planned day: Day 1, Cycle 5 (Planned for 09/07/2018) Past Medical History: Diagnosis Date ??? Anxiety and depression ??? Chronic sinusitis ??? CLL (chronic lymphocytic leukemia) (CMS/HCC) ??? Kidney stones ??? Shingles ??? Thyroid nodule 06/12/2019 Past Surgical History: Procedure Laterality Date ??? BIOPSY LYMPH NODE SUPERFICIAL N/A 12/07/2014 ??? CERVICAL SPINE SURGERY [address] Shaquille King at [facility] ??? [facility] ??? LYMPH NODE BIOPSY 2006 Medications Prior to Admission Medication Sig Dispense Refill Last Dose ??? cetirizine (ZyrTEC) 10 mg tablet Take 10 mg by mouth daily 06/12/2019 at Unknown time ??? ofloxacin (FLOXIN) 0.3 % otic solution Administer 10 drops into each ear daily 06/12/2019 at Unknown time ??? predniSONE (DELTASONE) 50 mg tablet Take 50 mg by mouth daily 06/12/2019 at Unknown time ??? acyclovir (ZOVIRAX) 200 mg capsule Take 2 capsules by mouth twice daily 180 capsule 3 Past Month at Unknown time ??? ALPRAZolam (XANAX) 0.25 mg tablet Take 0.5-1 tablets by mouth 3 (three) times a day as needed for anxiety 06/12/2019 at Unknown time ??? ikygihsuri-svvdophyapfny-agkqcjzu (FIORICET) 50-300-40 mg per capsule Take 1 capsule by mouth every 6 (six) hours as needed for headaches 06/12/2019 at Unknown time ??? clindamycin (CLEOCIN) 300 mg capsule Take 1 capsule by mouth 3 (three) times a day 06/12/2019 atUnknown time ??? escitalopram (LEXAPRO) 10 mg tablet Take 1 tablet by mouth daily 06/12/2019 at Unknown time ??? fluticasone (FLONASE) 50 mcg/actuation nasal spray Administer 2 sprays into each nostril daily 06/12/2019 at Unknown time ??? IMBRUVICA 420 mg tablet TAKE 1 TABLET (420MG) BY MOUTH ONCE DAILY. 28 tablet 1 Past Month at Unknown time ??? oxyCODONE-acetaminophen (PERCOCET) 7.5-325 mg per tablet Take 1 tablet by mouth every 6 (six) hours as needed for pain 06/12/2019 at Unknown time ??? ranitidine (ZANTAC) 150 mg capsule Take 150 mg by mouth daily 06/12/2019 at Unknown time Allergies Allergen Reactions ??? Cefuroxime Unknown ??? Codeine Unknown Social History Tobacco Use ??? Smoking status: Former Smoker ??? Smokeless tobacco: Never Used Substance Use Topics ??? Alcohol use: Not Currently Family History Problem Relation Age of Onset ??? Heart disease Father ??? Hypertension Father ??? Diabetes Father ??? Glaucoma Father ??? Atrial fibrillation Father ??? Coronary artery disease Father ??? Macular degeneration Mother ??? Hypertension Mother ??? Anxiety disorder Mother ??? Depression Daughter ??? Depression Son ??? Anxiety disorder Daughter ??? Anxiety disorder Son ??? Colon cancer Other Reviewed and non-contributory. Review of Systems: Review of systems per HPI and otherwise all other systems were negative. Objective Vitals: Most Recent : Vitals: 06/12/19 1012 BP: 136/71 Pulse: 93 Resp: 18 Temp: 36.6 ??C (97.9 ??F) SpO2: 98% Arrival Vitals Temp 36.6C Pulse 93 Resp 18 BP 136/71 SpO2 98% room air Temp src Heart Rate Source Patient Position BP Location FiO2 (%) 24hr Min/Max: Temp Min: 36.6 ??C (97.9 ??F) Max: 36.6 ??C (97.9 ??F) Pulse Min: 93 Max: 93 BP Min: 136/71 Max: 136/71 Resp Min: 18 Max: 18 SpO2 Min: 98 % Max: 98 % I&Os: No intake/output data recorded. No intake/output data recorded. Physical exam: Constitutional: Vitals as above. In no acute distress. Well-nourished and well- developed. Difficulty with hearing. Head: Normocephalic and atraumatic. Eyes: Sclera anicteric. ENT: Rhinorrhea noted. Moist oral mucous membranes. Oropharynx nonerythematous, without exudates. Drainage from right ear noted. Cardiovascular: Normal rate, regular rhythm. No murmurs, rubs, or gallops. 2+ distal pulses. Respiratory: No respiratory distress on room air. Clear to auscultation bilaterally. Gastrointestinal: Abdomen soft, nondistended, nontender. Neurologic: Alert, oriented to person, place, and time. Strength 5/5 in bilateral upper and lower extremities. Extremities/MSK: Warm and well perfused. No lower extremity edema. No clubbing or cyanosis. Psychiatric: Pleasant and conversant. Affect appropriate although notes frustration. Insight and judgement intact. Skin: No evident rashes or lesions. Lab Results: Recent Results (from the past 36 hour(s)) Comprehensive metabolic panel Collection Time: 06/12/19 10:38 AM Result Value Ref Range Sodium 138 135 - 145 mmol/L Potassium, pl 5.3 (H) 3.3 - 4.9 mmol/L Chloride 103 97 - 110 mmol/L CO2 26 22 - 32 mmol/L Anion gap 9 2 - 15 mmol/L BUN 26 (H) 8 - 25 mg/dL Creatinine 0.82 0.80 - 1.30 mg/dL Glucose 208 (H) 70 - 199 mg/dL Calcium 9.0 8.5 - 10.3 mg/dL Bilirubin, total 0.2 0.1 - 1.2 mg/dL Protein, pl 6.4 (L) 6.5 - 8.5 g/dL Albumin 3.7 3.5 - 5.0 g/dL Alk phos 97 40 - 130 Units/L ALT 50 7 - 55 Units/L AST 46 10 - 50 Units/L Magnesium Collection Time: 06/12/19 10:38 AM Result Value Ref Range Magnesium 2.0 1.4 - 2.5 mg/dL Phosphorus Collection Time: 06/12/19 10:38 AM Result Value Ref Range Phosphorus, pl 3.7 2.3 - 4.5 mg/dL Lactate dehydrogenase (LD) Collection Time: 06/12/19 10:38 AM Result Value Ref Range Lactate dehydrogenase (LDH) See Comment 100 - 250 Units/L Uric acid Collection Time: 06/12/19 10:38 AM Result Value Ref Range Uric acid 6.2 3.0 - 8.0 mg/dL Protime-INR Collection Time: 06/12/19 10:38 AM Result Value Ref Range PT 12.0 8.6 - 13.0 sec INR 1.1 0.8 - 1.2 aPTT Collection Time: 06/12/19 10:38 AM Result Value Ref Range aPTT 23 (L) 25 - 37 sec Type and screen Collection Time: 06/12/19 10:38 AM Result Value Ref Range ABO Rh O Positive Calin, indirect Negative CBC without differential Collection Time: 06/12/19 10:38 AM Result Value Ref Range WBC 12.3 (H) 3.8 - 9.9 K/cumm Hgb 12.1 (L) 13.0 - 17.5 g/dL Hct 35.7 (L) 38.9 - 50.3 % Plt 230 150 - 400 K/cumm MPV 11.3 9.1 - 12.3 fL RBC 3.72 (L) 4.30 - 5.80 M/cumm MCV 96.0 81.3 - 96.4 fL MCH 32.5 27.1 - 33.3 pg MCHC 33.9 32.3 - 35.7 g/dL RDW CV 15.4 (H) 11.1 - 14.9 % RDW SD 52.8 (H) 35.7 - 48.1 fL NRBC abs 0.03 (H) 0.00 - 0.01 K/cumm Manual Differential Collection Time: 06/12/19 10:38 AM Result Value Ref Range Differential Manual Cells Counted 115 Neutrophil abs 10.2 (H) 1.7 - 6.5 K/cumm Imm gran abs 0.0 0.0 - 0.1 K/cumm Lymphocyte abs 1.5 0.8 - 3.3 K/cumm Monocyte abs 0.3 0.2 - 0.8 K/cumm Eosinophil abs 0.2 0.0 - 0.5 K/cumm Basophil abs 0.1 0.0 - 0.1 K/cumm Neutrophil pct 82.6 % Lymphocyte pct 8.7 % Monocyte pct 2.6 % Eosinophil pct 1.7 % Basophil pct 0.9 % Variant lymphs 3.5 % RBC morphology Present Anisocytosis Slight (A) Platelet estimate Adequate Additional lab results: None I have reviewed the above laboratory results. Imaging Results: CT head/sinus 06/11 1. Left ostiomeatal unit occlusion with corresponding severe sinus disease involving the left frontal sinus, maxillary sinus, and anterior ethmoid air cells. 2. Large right maxillary mucous retention cyst. The right ostiomeatal unit is open. 3. Nonspecific bilateral middle ear cavity opacities and mastoid air cell opacities. There is no associated bony destruction and no visualized obstructive lesion in the nasopharynx. I have reviewed the above imaging report. Additional Diagnostics: None Assessment/Plan * Sinusitis Assessment & Plan Acute worsening of persistent sinus symptoms, now with ear drainage, bilateral hearing loss. He hasfailed multiple courses of outpatient antibiotics and is having increasing symptoms that have required multiple ED evaluations. CT head/sinus shows left ostiomeatal unit occlusion with corresponding severe sinus disease involving the left frontal sinus, maxillary sinus, and anterior ethmoid air cells, nonspecific bilateral middle ear cavity opacities and mastoid air cell opacities without associated bony destruction. Has been recommended for surgical intervention by outpatient ENT, but has beenunable to get this due to COVID restrictions. - ENT consult - Zosyn 3.375 q6 hours - Continue prednisone 50mg daily for now - Continue Flonase, Zyrtec CLL (chronic lymphocytic leukemia) ([facility]) Assessment & Plan SLL/CLL. Initially treated with FCR, obtained remission for 7 years, followed by relapse with treatment with ALT-803 plus rituximab clinical trial. ?? Later with persistent disease and now on ibrutinib with clinical evidence of response. His blood counts are near his baseline. - Patient has been holding his acyclovir prophylaxis - He has been holding his ibrutinib given he had planned for surgery Anxiety and depression Assessment & Plan Worsening mood, anxiety, depression related to ongoing pain, hearing loss. - Continue Lexapro 10mg daily - Continue Xanax prn Code Status: Full Code Diet: Adult Diet Regular DVT Prophylaxis: Lovenox Access: [facility] Ricardo Rizzo MD 06/12/2019 1:18 PM For patient related questions from 7am until 7pm, please contact the primary Hospitalist team. [id number] until 7am, please call the Hospitalist cross cover pager. documented in this encounter Consult Notes * Shiv Hawthorne MD - 06/14/2019 1:17 PM CDT Infectious Disease Consult ID team: Transplant Contact Information: Please see [facility] Treatment Team listing for up-to-date contact information. Subjective Chief complaint: sinusitis Reason for consult: Diagnostic and treatment recommendations, as well as assistance with follow up care. HPI: History obtained from patient, EMR, patient's and other providers (physicians, nurses etc). The patient is a 68 y.o. male with a history of SLL/CLL who presents with worsening sinus pain, drainage, loss of hearing. Pt noted that he has had multiple episodes of sinusitis from 12/2018-03/2019 and has been on multiple rounds of antibiotics and steroids. He established with Dr. Alexei Wilcox at [facility] In [place] who he follows with. He had a CT sinus at that time that only showed a polyp.Pt reports that in 03/2019 he felt like his symptoms improved. However, in 04/2019 he again started experien cing sinus pressure and pain and saw his PCP who put him on Clinda 05/07/19 and tramadol. He reports that symptoms continued to worsen while on antibiotic. Went to his PCP again and was given doxy on 05/18/19, Ciprodex ear drops and pred 20mg. He also saw his ENT and was told he needed surgery. However, because of COVID-19 he was not able to schedule appt for surgery. Symptoms have continued to worsen and now reports debilitating headaches, ear pain. Says that sinus drainage is green and right eardrainage is yellow or brown. R ear >left ear. Hearing has been reduced for the past month and has never experienced this with past episodes of sinusitis. ENT again prescribed him Clinda on 06/03/19 and ofloxacin. MRI was also done and reported no masses, arterial blockages, but showed significant inflammation on the left side of the head. Went to the ED 06/06/19 because of severe pain and prednisone was increased to 50mg. Was given referral to [facility] but appt made for 07/20/19. Because of continued symptoms he called his oncologist and he was directly admitted. He has been holding his Imbruvica and acyclovir since 05/30. On admission, pt was afebrile. WBC 12.3. Pt was started on zosyn. CT head sinuses wo reported left ostiomeatal unit occlusion with corresponding severe sinus disease involving the left frontal sinus,maxillary sinus, and anterior ethmoid air cells.Large right maxillary mucous retention cyst. The right ostiomeatal unit is open.Nonspecific bilateral middle ear cavity opacities and mastoid air cell opacities. There is no associated bony destruction and no visualized obstructive lesion in the nasopharynx.Cervical lymphadenopathy. ENT was consulted. Per exam, left nasal cavity mucosa mildly erythematous. No purulence. No drainage or discharge. Right earcanal with scan clear drainage. Nasal swab x2 taken of left nasal cavity. Routine culture with moderate pmns and rare GPB on stain, now growing H. Influenzae - per pt was a deep swab. Blood cx NGTD. ID consulted for antibiotic management. Underwent b/l myringotomy yesterday, culture pending. He reports that he is improving, especially after yesterday's procedure. Oncologic History: SLL/CLL. Initially treated with FCR, obtained remission for 7 years. Then relapsed and treated on the ALT-803 plus rituximab clinical trial. His disease was stable for 2 years. He then showed evidence of persistent disease with enlarging lymph nodes. He was initiated on ibrutinib and has clinical evidence of response. He has had easy bruising and nail changes with this. Past Medical History: Diagnosis Date ??? Anxiety and depression ??? Chronic sinusitis ??? CLL (chronic lymphocytic leukemia) (CMS/HCC) ??? Kidney stones ??? Shingles ??? Thyroid nodule 06/12/2019 Past Surgical History: Procedure Laterality Date ??? BIOPSY LYMPH NODE SUPERFICIAL N/A 12/07/2014 ??? CERVICAL SPINE SURGERY [address] Shaquille King at [facility] ??? LAPAROSCOPIC CHOLECYSTECTOMY 2006 Dr. Kingsley- [facility] ??? LYMPH NODE BIOPSY 2006 HOME MEDICATIONS : cetirizine (ZyrTEC) 10 mg tablet ofloxacin (FLOXIN) 0.3 % otic solution predniSONE (DELTASONE) 50 mg tablet acyclovir (ZOVIRAX) 200 mg capsule ALPRAZolam (XANAX) 0.25 mg tablet bhzkmdwkoh-lstwajnabpvln-ycydight (FIORICET) 50-300-40 mg per capsule clindamycin (CLEOCIN) 300 mg capsule escitalopram (LEXAPRO) 10 mg tablet fluticasone (FLONASE) 50 mcg/actuation nasal spray IMBRUVICA 420 mg tablet oxyCODONE-acetaminophen (PERCOCET) 7.5-325 mg per tablet ranitidine (ZANTAC) 150 mg capsule Current Facility-Administered Medications Ordered in [facility] Medication Dose Route Frequency Provider Last Rate Last Dose ??? acetaminophen (TYLENOL) tablet 650 mg 650 mg oral Q4H PRN Ricardo Rizzo MD 325 mg at 06/13/198 ??? acetaminophen (TYLENOL) tablet 650 mg 650 mg oral Q6H PRN Ricardo Rizzo MD ??? acyclovir (ZOVIRAX) tablet 400 mg 400 mg oral BID Ricardo Rizzo MD 400 mg at ??? ALPRAZolam (XANAX) tablet 0.5 mg 0.5 mg oral TID PRN Ricardo Rizzo MD ??? rguvfnvvax-olmmpzevuluik-vwdwqfta (ESGIC) 50-325-40 mg per tablet 1 tablet 1 tablet oral QID PRN Ricardo Rizzo MD 1 tablet at 06/14/19 1332 ??? camphor-menthoL (SARNA) 0.5-0.5 % lotion topical Q2H PRN Ricardo Rizzo MD ??? cetirizine (ZyrTEC) tablet 10 mg 10 mg oral Daily Ricardo Rizzo MD 10 mg at 06/14/19 08 ??? ciprofloxacin-fluocinolone (OTOVEL) 0.3-0.025 % otic solution 0.25 mL 0.25 mL each ear QID Tima Torres Jr., MD 0.25 mL at 06/14/19 1142 ??? docusate sodium (COLACE) capsule 100 mg 100 mg oral BID Ricardo Rizzo MD 100 mg at 06/14/19 08 ??? enoxaparin (LOVENOX) syringe 40 mg 40 mg subcutaneous Daily-2100 Ricardo Rizzo MD 40 mg at 06/13/192016 ??? escitalopram (LEXAPRO) tablet 10 mg 10 mg oral Daily Ricardo Rizzo MD 10 mg at 06/14/19 08 ??? famotidine (PEPCID) tablet 20 mg 20 mg oral Daily Ricardo Rizzo MD 20 mg at 06/14/19801 ??? fluticasone propionate (FLONASE) 50 mcg/actuation nasal spray 2 spray 2 spray each nostril Daily Ricardo Rizzo MD 2 spray at 06/13/19 0854 ??? HYDROmorphone (DILAUDID) injection 0.5 mg 0.5 mg intravenous Q4H PRN Ricardo Rizzo MD ??? magnesium sulfate 4 g/100 mL in water (premix) 4 g 4 g intravenous Q4H PRN Ricardo Rizzo MD ??? magnesium sulfate 6 g in sodium chloride 0.9% 250 mL IVPB 6 g intravenous Q4H PRN Ricardo Jo MD ??? mupirocin (BACTROBAN) 2 % nasal ointment each nostril TID Ricardo Rizzo MD 1 application at 06/14/19 0804 ??? oxyCODONE-acetaminophen (PERCOCET) 5-325 mg per tablet 1 tablet 1 tablet oral Q4H PRN Ricardo Rizzo MD 1 tablet at 06/14/19 0020 ??? oxymetazoline (AFRIN) 0.05 % nasal spray 1 spray 1 spray each nostril TID Ricardo Rizzo MD 1 spray at 06/14/19 1141 ??? piperacillin-tazobactam (ZOSYN) 3.375 gram/65 mL in sodium chloride 0.9% (premix) 3.375 g 3.375g intravenous Q6H DORIAN Ricardo Rizzo MD Stopped at 06/14/19 1210 ??? polyethylene glycol (MIRALAX) packet 17 g 17 g oral Daily PRN Ricardo Rizzo MD 17 g at 06/14/19 0804 ??? potassium chloride 40 mEq/520 mL in sodium chloride 0.9% (premix) 40 mEq 40 mEq intravenous Q4HPRN Ricardo Rizzo MD ??? potassium chloride ER (KLOR-CON) extended release tablet 40 mEq 40 mEq oral Q4H PRN Ricardo Rizzo MD ??? sodium chloride 0.9% flush 0.5-20 mL 0.5-20 mL intra-catheter Q8H DORIAN Ricardo Rizzo MD 10 mL at 06/14/19 1332 ??? sodium chloride 0.9% flush 0.5-20 mL 0.5-20 mL intra-catheter PRN Ricardo Rizzo MD ??? sodium chloride 0.9% IVPB 0-250 mL 0-250 mL intravenous PRN Ricardo Rizzo MD 60 mL at06/12/19 1355 ??? sodium chloride-sodium bicarbonate (NEILMED SINUS RINSE, AYR) nasal wash kit 1 packet 1 packet each nostril TID Ricardo Rizzo MD 1 packet at 06/14/19 0803 No current Epic-ordered outpatient medications on file. Anti-infectives (From admission, onward) Start Dose/Rate Route Frequency Ordered Stop 06/13/19 1200 ciprofloxacin-fluocinolone (OTOVEL) 0.3-0.025 % otic solution 0.25 mL 0.25 mL each ear 4 times daily 06/13/19 1121 06/13/19 0900 acyclovir (ZOVIRAX) tablet 400 mg 400 mg oral 2 times daily 06/13/19 0722 06/12/19 1730 mupirocin (BACTROBAN) 2 % nasal ointment each nostril 3 times daily 06/12/19 1653 06/12/19 1315 piperacillin-tazobactam (ZOSYN) 3.375 gram/65 mL in sodium chloride 0.9% (premix) 3.375 g 3.375 g 130 mL/hr over 30 Minutes intravenous Every 6 hours scheduled 06/12/19 1241 Immunosuppressive Medications: Active LDAs: Peripheral IV 06/13/19 22 G Anterior;Distal;Right Wrist;Forearm (Active) Site Assessment Clean and dry 06/14/2019 1:03 PM Line Status Single Blood return noted;Flushes easily 06/14/2019 1:03 PM Dressing Type Transparent 06/14/2019 1:03 PM Dressing Status Clean, dry, intact;Occlusive 06/14/2019 1:03 PM Dressing Change Due 06/17/19 06/13/2019 8:55 PM Number of days: 1 [REMOVED] Peripheral IV 10/09/18 22 G Right Antecubital (Removed) Site Assessment Clean and dry 10/09/2018 9:28 AM Line Status Single Blood return noted 10/09/2018 9:28 AM Number of days: 0 [REMOVED] Peripheral IV 02/04/19 22 G Right Hand (Removed) Site Assessment Clean and dry 02/04/2019 12:24 PM Line Status Single Blood return noted 02/04/2019 12:24 PM Number of days: 0 [REMOVED] Peripheral IV 06/12/19 22 G Posterior;Right Hand (Removed) Site Assessment Clean and dry 06/12/2019 10:40 AM Line Status Single Blood return noted 06/12/2019 10:40 AM Dressing Type Transparent 06/12/2019 10:40 AM Dressing Status Clean, dry, intact 06/12/2019 10:40 AM Dressing Intervention Dressing changed 06/12/2019 10:40 AM Tubing Changed Done 06/12/2019 10:40 AM Dressing Change Due 06/16/19 06/12/2019 10:40 AM Number of days: 1 Allergies Allergen Reactions ??? Cefuroxime Unknown ??? Codeine Unknown Social History Tobacco Use ??? Smoking status: Former Smoker ??? Smokeless tobacco: Never Used Substance Use Topics ??? Alcohol use: Not Currently Family history reviewed and non-contributory Family History Problem Relation Age of Onset ??? Heart disease Father ??? Hypertension Father ??? Diabetes Father ??? Glaucoma Father ??? Atrial fibrillation Father ??? Coronary artery disease Father ??? Macular degeneration Mother ??? Hypertension Mother ??? Anxiety disorder Mother ??? Depression Daughter ??? Depression Son ??? Anxiety disorder Daughter ??? Anxiety disorder Son ??? Colon cancer Other ROS: Review of Systems Constitutional: Negative for chills, diaphoresis, fever, malaise/fatigue and weight loss. HENT: Positive for congestion, ear discharge, ear pain and sinus pain. Negative for sore throat. Post-nasal discharge Eyes: Negative for photophobia, discharge and redness. Respiratory: Negative for cough, hemoptysis, sputum production, shortness of breath and wheezing. Cardiovascular: Negative for chest pain, orthopnea and leg swelling. Gastrointestinal: Negative for abdominal pain, diarrhea, nausea and vomiting. Genitourinary: Negative for dysuria, flank pain, frequency, hematuria and urgency. Musculoskeletal: Negative for back pain, joint pain and neck pain. Skin: Negative for rash. Neurological: Negative for focal weakness, seizures, weakness and headaches. Psychiatric/Behavioral: Negative for depression, hallucinations and suicidal ideas. Objective Vitals: 24hr Min/Max: Temp Min: 36.5 ??C (97.7 ??F) Max: 36.8 ??C (98.2 ??F) Pulse Min: 73 Max: 99 BP Min: 119/67 Max: 150/85 Resp Min: 18 Max: 20 SpO2 Min: 92 % Max: 99 % Most Recent : Vitals: 06/14/19 1105 BP: 125/61 Pulse: 83 Resp: 18 Temp: 36.7 ??C (98.1 ??F) SpO2: 92% I/O last 2 completed shifts: In: 2270 [P.O.:2205; IV Piggyback:65] Out: 2200 [Urine:2200] I/O this shift: In: 400 [IV Piggyback:400] Out: - PE: Physical Exam Vitals signs reviewed. Constitutional: Appearance: He is well-developed. Comments: Hard of hearing HENT: Head: Normocephalic and atraumatic. Comments: Mild sinus tenderness Ears: Comments: Canals blocked with cotton plugs, No mastoid tenderness Nose: Congestion present. Mouth/Throat: Pharynx: No oropharyngeal exudate. Eyes: Pupils: Pupils are equal, round, and reactive to light. Neck: Musculoskeletal: Neck supple. Cardiovascular: Rate and Rhythm: Normal rate and regular rhythm. Heart sounds: No murmur. No friction rub. No gallop. Pulmonary: Breath sounds: Normal breath sounds. No wheezing or rales. Abdominal: General: Bowel sounds are normal. There is no distension. Palpations: Abdomen is soft. There is no mass. Tenderness: There is no abdominal tenderness. There is no guarding. Musculoskeletal: Normal range of motion. Lymphadenopathy: Cervical: No cervical adenopathy. Skin: General: Skin is warm and dry. Findings: No rash. Neurological: Mental Status: He is alert and oriented to person, place, and time. Cranial Nerves: No cranial nerve deficit. Psychiatric: Mood and Affect: Mood normal. Behavior: Behavior normal. Thought Content: Thought content normal. Lab/Radiology/Diagnostic Review: CBC: Recent Labs Lab Units 06/14/19 0521 WBC K/cumm 8.5 HEMOGLOBIN g/dL 11.6* HEMATOCRIT % 33.8* PLATELETS K/cumm 202 NEUTROS PCT % 74.2 LYMPHS PCT % 18.6 MONOS PCT % 0.9 EOS PCT % 1.8 CMP: Recent Labs Lab Units 06/14/19 0521 06/12/19 1038 SODIUM mmol/L 138 < > 138 POTASSIUM PLASMA mmol/L 4.0 < > 5.3* CHLORIDE mmol/L 105 < > 103 CO2 mmol/L 28 < > 26 ANIONGAP mmol/L 5 < > 9 GLUCOSE mg/dL 118 < > 208* BUN SERUM mg/dL 16 < > 26* CREATININE mg/dL 0.86 < > 0.82 CALCIUM mg/dL 8.3* < > 9.0 ALBUMIN g/dL -- -- 3.7 ALK PHOS Units/L -- -- 97 ALT Units/L -- -- 50 AST Units/L -- -- 46 BILIRUBIN TOTAL mg/dL -- -- 0.2 < > = values in this interval not displayed. ESR: CRP: Last UA: Current CrCl: Estimated Creatinine Clearance: 103.7 mL/min (by C-G formula based on SCr of 0.86 mg/dL). Cr. Trend: Recent Labs Lab Units 06/14/19 0521 06/13/19 0523 06/12/19 1038 CREATININE mg/dL 0.86 0.88 0.82 MICROBIOLOGY: Lab Results Component Value Date MICROBIOLOGY Preliminary Report: No growth to date. 06/13/2019 Last HIV Labs (if any): HIV Ab Screen: No results found for: [id number] HIV Viral Load: No results found for: [id number] CD4 Count: No results found for: CD4ABS I have reviewed the above lab results. Imaging review: CT Head Sinuses WO Contrast Final Result 1. Left ostiomeatal unit occlusion with corresponding severe sinus disease involving the left frontal sinus, maxillary sinus, and anterior ethmoid air cells. 2. Large right maxillary mucous retention cyst. The right ostiomeatal unit is open. 3. Nonspecific bilateral middle ear cavity opacities and mastoid air cell opacities. There is no associated bony destruction and no visualized obstructive lesion in the nasopharynx. 4. Cervical lymphadenopathy Dictated by: Mary Zacarias M.D. The radiology attending physician has personally reviewed this study, and had reviewed and/or edited this written report and agrees with it. Electronically signed by: Elyse Bernardo M.D. The following images were personally examined and the following details determined: Extensive sinusopacification in b/l sinuses and mastoids Assessment/Plan * Acute recurrent sinusitis Assessment & Plan Appears to favor bacterial etiology based on imaging and scope findings. Ibrutinib is a risk factor for fungal infection, but usually in patients with neutropenia and otherrisk factors, which the patient lacks. Nasal swab [...] presentation not too concerning for ENT to pusue sinus biopsy. Please ensure that he has completed pneumococcal vaccination as appropriate for age. Mastoiditis of both sides Assessment & Plan With otitis. Possibly from H. Influenzae as well. Await final cultures. Agree with topical antibiotic plan per ENT. I'm not sure if yeast/CONS reflects sampling error or contamination, but is unlikely to be cause ofsuch an infection. Hypogammaglobulinemia (CMS/HCC) Assessment & Plan Agree with IVIG administration; this should help in the short term. Thank you for this consult. ID will monitor. I have discussed this case and my recommendations with Dr. Rizzo. Please call the ID consulting fellow/physician number listed under treatment team in the summary tab in [employer] if any additional questions. * Britt Martinez, RD - 06/12/2019 4:21 PM CDTAssociated Order(s): IP CONSULT TO NUTRITION SERVICES Nutrition Assessment Reason for Assessment: Consult/Referral Encounter Date: 06/12/19 4:21 PM Patient is a 68 y.o. male with chief complaint of sinus pain and drainage. LOS is 0 days. HPI: Pt with CLL who presented with worsening sinus pain, drainage and loss of hearing. Pt with ongoing sinusitis since 12/2018 receiving multiple rounds of antibiotics and steroids. Noted plans to have surgery however with COVID-19 surgery was cancelled. Pt presented with worsening symptoms and was admitted for evaluation. CT head/sinus shows left ostiomeatal unit occlusion with corresponding severe sinus disease involving the left frontal sinus, maxillary sinus, and anterior ethmoid air cells, nonspecific bilateral middle ear cavity opacities and mastoid air cell opacities without associated bony destruction. ENT consulted. PMH: -SLL/CLL on ibrutinib -Anxiety and depression Objective Past Medical History: Diagnosis Date ??? Anxiety and depression ??? Chronic sinusitis ??? CLL (chronic lymphocytic leukemia) (CMS/HCC) ??? Kidney stones ??? Shingles ??? Thyroid nodule 06/12/2019 Past Surgical History: Procedure Laterality Date ??? BIOPSY LYMPH NODE SUPERFICIAL N/A 12/07/2014 ??? CERVICAL SPINE SURGERY [address] Shaquille King at [facility] ??? LAPAROSCOPIC CHOLECYSTECTOMY 2006 Dr. Kingsley- [facility] ??? LYMPH NODE BIOPSY 2006 Social History Tobacco Use ??? Smoking status: Former Smoker ??? Smokeless tobacco: Never Used Substance Use Topics ??? Alcohol use: Not Currently Family History Problem Relation Age of Onset ??? Heart disease Father ??? Hypertension Father ??? Diabetes Father ??? Glaucoma Father ??? Atrial fibrillation Father ??? Coronary artery disease Father ??? Macular degeneration Mother ??? Hypertension Mother ??? Anxiety disorder Mother ??? Depression Daughter ??? Depression Son ??? Anxiety disorder Daughter ??? Anxiety disorder Son ??? Colon cancer Other Anthropometrics: Wt Readings from Last 3 Encounters: 06/12/19 120.7 kg (266 lb) 02/04/19 121.6 kg (268 lb) 01/15/19 123.5 kg (272 lb 3.2 oz) Anthropometrics Weight: 120.7 kg (266 lb) Weight Change: -0.90 kg (-2.00 lbs) IBW/kg (Calculated) : 91.6 kg Height: 193 cm (6' 4 ) Weight in (lb) to have BMI = 25: 205 BMI (Calculated): 32.4 Nutrition Needs Calculations: Calculated Energy Needs Using Equations Weight: 120.7 kg (266 lb) Height: 193 cm (6' 4 ) Estimated Protein Needs Type of Weight Used for Estimated Protein : [place] Protein Needs Based on g/k.2 Total Protein Estimated Needs (gm): 109.92 Kcal/kg Type of Weight Used for Estimated Kcals: [place] Kcal/k Total Kcal/kg Estimated Needs : 2748 Vital Signs: BP: 136/65 Temp: 36.9 ??C (98.4 ??F) Pulse: 90 Resp: 18 SpO2: 93 % Medications: Scheduled Meds: [START ON 06/13/2019] cetirizine, 10 mg, oral, Daily docusate sodium, 100 mg, oral, BID enoxaparin, 40 mg, subcutaneous, Daily-2100 [START ON 06/13/2019] escitalopram, 10 mg, oral, Daily [START ON 06/13/2019] famotidine, 20 mg, oral, Daily [START ON 06/13/2019] fluticasone propionate, 2 spray, each nostril, Daily piperacillin-tazobactam, 3.375 g, intravenous, Q6H DORIAN [START ON 06/13/2019] predniSONE, 50 mg, oral, Daily sodium chloride 0.9%, 0.5-20 mL, intra-catheter, Q8H DORIAN Continuous Infusions: sodium chloride 0.9%, 0-250 mL PRN Meds: ??? acetaminophen ??? acetaminophen ??? ALPRAZolam ??? axmteafhxu-bjjglimqfstep-nizstfxb ??? camphor-menthoL ??? HYDROmorphone ??? magnesium sulfate ??? magnesium sulfate ??? oxyCODONE-acetaminophen ??? polyethylene glycol ??? potassium chloride ??? potassium chloride ER ??? sodium chloride 0.9% ??? sodium chloride 0.9% Lab Review: Sodium Date Value Ref Range Status 06/12/2019 138 135 - 145 mmol/L Final Potassium, pl Date Value Ref Range Status 06/12/2019 5.3 (H) 3.3 - 4.9 mmol/L Final Comment: Hemolyzed; Potassium value may be falsely elevated by as much as 0.6-1.0 mmol/L. Suggest redraw andreanalysis. BUN Date Value Ref Range Status 06/12/2019 26 (H) 8 - 25 mg/dL Final Creatinine Date Value Ref Range Status 06/12/2019 0.82 0.80 - 1.30 mg/dL Final Phosphorus, pl Date Value Ref Range Status 06/12/2019 3.7 2.3 - 4.5 mg/dL Final Albumin Date Value Ref Range Status 06/12/2019 3.7 3.5 - 5.0 g/dL Final Magnesium Date Value Ref Range Status 06/12/2019 2.0 1.4 - 2.5 mg/dL Final Calcium Date Value Ref Range Status 06/12/2019 9.0 8.5 - 10.3 mg/dL Final ALT Date Value Ref Range Status 06/12/2019 50 7 - 55 Units/L Final AST Date Value Ref Range Status 06/12/2019 46 10 - 50 Units/L Final Comment: Hemolyzed; result may be falsely elevated Alk phos Date Value Ref Range Status 06/12/2019 97 40 - 130 Units/L Final No results found for: HGBA1C, HDL, LDLCALC, CHOL, TRIG Nursing Assessment: No intake or output data in the 24 hours ending 06/12/19 1621 Gastrointestinal Gastrointestinal (WDL): Exceptions to WDL Abdomen Inspection: Soft, Nondistended Bowel Sounds (All Quadrants): Active Last BM Date: 06/11/19 Passing Flatus: Yes GI Symptoms: Constipation Last BM Date: 06/11/19 Sergey Scale Score: 21 Oral Mucosa Grade: Normal (0) Dietary Orders (From admission, onward) Start Ordered 06/12/19 0948 Adult Diet Regular Diet effective now Comments: Neutropenic Diet. No RAW or undercooked meat, fish, poultry, or eggs. Question: ([facility]) Diet type Answer: Regular 06/12/19 0951 Impression: Pt reports a fair appetite. States that he has continued to eat adequately despite headaches and sinus issues. Reports that he has gained weight since staying at home and being less active. Pt mentioned that in the past he was on the keto diet, reports that he was successful in losing about 50lb but now with being at home during the pandemic he is not following any diet. Pt reports constipation and recently being started on miralax to help promote bowel movements. Denied other GI issues at thistime. NUTRITION DIAGNOSIS Nutrition Diagnosis 1: Altered GI function Related to: Constipation Evidenced by: Patient interview INTERVENTION Encouraged PO intakes to tolerance. Pt is having issues with constipation. Reviewed foods to eat when dealing with constipation. Encouraged activity as tolerated. Encouraged fluid intake to help promote bowel movements. Continue bowel regimen. Reviewed [employer], pt did not have questions/concerns for RD at this time. RD will continue to follow and monitor PO intakes. GOALS / MONITORING: Goals: Adequate nutrition to meet estimated needs by next assessment Interventions: Encouragement Monitoring and Evaluation: Appetite, PO intake, Weight changes Britt Martinez RDN, LD * Cass Olivia MD - 06/12/2019 2:40 PM CDTAssociated Order(s): IP CONSULT TO ENT Otolaryngology - Head & Neck Surgery Consult Attending Physician: Corwin Reason for Consult: Left ostiomeatal unit occlusion with corresponding severe sinus disease Requesting Provider: NOAH Rizzo Hospitalist Subjective Jeff Abdullahi is a 68 y.o. male with history of recurrent CLL on current Imbruvica who presentswith chronic sinusitis and ear drainage. He has had multiple episodes of sinusitis since starting Imbruvica, notably with a 3 month episode in December to March 2018. He established care with an outside ENT doctor, Dr. Wilcox, in Feb 2019. At that time, reportedly, a sinus CT was notable only for a polyp . He again developed severe sinus symptoms at the end of April and has since undergone a course of clindamycin, a course of doxycycline, course of oral steroids, and is currently on a 2nd course of clindamycin without improvement. He occasionally has been using a Neti pot over the past week and is chronically on twice daily Flonase. His symptoms include severe primarily right-sided head pain near the vertex and temporal scalp, new left-sided facial pain, thick yellow rhinorrhea and postnasal drip, and anosmia. The pain, particularly in his head, has been severe enough that he has presented multiple times to the emergency department and found some relief with a ???headache cocktail?? , Fioricet, and opioids. Additionally, 3 weeks ago he developed sudden partial hearing loss in his right ear over the course of the day, which progressed to his left ear a day later. His ears feel full with tinnitus bilaterally. At his last emergency department visit at the end of May, he was prescribed a 10 day course of ofloxacin ear drops which did not improve his symptoms. Yesterday, he developed new right ear otorrhea, described as thin and yellow brown. He denies fevers, chills, new cough, travel, or social activity. Per patient report, he was scheduled to undergo sinus surgery with , but this was canceled secondary to COVID-19 pandemic. He attempted to establish care with [facility] but was told that he would have to wait until late July. He states that he cannot wait any longer for relief and was admittedby oncology for same. Past Medical History: Diagnosis Date ??? Anxiety and depression ??? Chronic sinusitis ??? CLL (chronic lymphocytic leukemia) (CMS/HCC) ??? Kidney stones ??? Shingles ??? Thyroid nodule 06/12/2019 Patient Active Problem List Diagnosis ??? CLL (chronic lymphocytic leukemia) (CMS/HCC) ??? Sinusitis ??? Thyroid nodule ??? Anxiety and depression Past Surgical History: Procedure Laterality Date ??? BIOPSY LYMPH NODE SUPERFICIAL N/A 12/07/2014 ??? CERVICAL SPINE SURGERY [address] [facility]quille King at [facility] ??? LAPAROSCOPIC CHOLECYSTECTOMY 2006 Dr. Kingsley- [facility] ??? LYMPH NODE BIOPSY 2006 Social History Tobacco Use ??? Smoking status: Former Smoker ??? Smokeless tobacco: Never Used Substance Use Topics ??? Alcohol use: Not Currently ??? Drug use: Never Family History Problem Relation Age of Onset ??? Heart disease Father ??? Hypertension Father ??? Diabetes Father ??? Glaucoma Father ??? Atrial fibrillation Father ??? Coronary artery disease Father ??? Macular degeneration Mother ??? Hypertension Mother ??? Anxiety disorder Mother ??? Depression Daughter ??? Depression Son ??? Anxiety disorder Daughter ??? Anxiety disorder Son ??? Colon cancer Other Allergies Allergen Reactions ??? Cefuroxime Unknown ??? Codeine Unknown Medications Prior to Admission Medication Sig Dispense Refill Last Dose ??? cetirizine (ZyrTEC) 10 mg tablet Take 10 mg by mouth daily 06/12/2019 at Unknown time ??? ofloxacin (FLOXIN) 0.3 % otic solution Administer 10 drops into each ear daily 06/12/2019 at Unknown time ??? predniSONE (DELTASONE) 50 mg tablet Take 50 mg by mouth daily 06/12/2019 at Unknown time ??? acyclovir (ZOVIRAX) 200 mg capsule Take 2 capsules by mouth twice daily 180 capsule 3 Past Month at Unknown time ??? ALPRAZolam (XANAX) 0.25 mg tablet Take 0.5-1 tablets by mouth 3 (three) times a day as needed for anxiety 06/12/2019 at Unknown time ??? lnnbzyievv-msaiscjfkxqup-dwapdxhs (FIORICET) 50-300-40 mg per capsule Take 1 capsule by mouth every 6 (six) hours as needed for headaches 06/12/2019 at Unknown time ??? clindamycin (CLEOCIN) 300 mg capsule Take 1 capsule by mouth 3 (three) times a day 06/12/2019 atUnknown time ??? escitalopram (LEXAPRO) 10 mg tablet Take 1 tablet by mouth daily 06/12/2019 at Unknown time ??? fluticasone (FLONASE) 50 mcg/actuation nasal spray Administer 2 sprays into each nostril daily 06/12/2019 at Unknown time ??? IMBRUVICA 420 mg tablet TAKE 1 TABLET (420MG) BY MOUTH ONCE DAILY. 28 tablet 1 Past Month at Unknown time ??? oxyCODONE-acetaminophen (PERCOCET) 7.5-325 mg per tablet Take 1 tablet by mouth every 6 (six) hours as needed for pain 06/12/2019 at Unknown time ??? ranitidine (ZANTAC) 150 mg capsule Take 150 mg by mouth daily 06/12/2019 at Unknown time Review of Systems: Constitutional: Denies any significant weight loss or weight gains. Neuro: Headaches as per HPI, denies vision changes, vertigo, dizziness, numbness/tingling. HEENT: As noted in HPI CV: Denies chest pain or angina. Pulm: Denies shortness of breath, stridor, wheezing. GI: Denies nausea, vomiting, abdominal pain, diarrhea, or constipation. MSK: Denies muscle/joint swelling. Full range of motion : Denies hematuria or extremity swelling. Objective Physical Exam: Vitals: 06/12/19 0948 06/12/19 1012 BP: 136/71 BP Location: Right arm Patient Position: Lying Pulse: 93 Resp: 18 Temp: 36.6 ??C (97.9 ??F) TempSrc: Oral SpO2: 98% Weight: 120.7 kg (266 lb) Height: 193 cm (6' 4 ) General: Well-developed, well-nourished in no apparent distress. Appropriate affect. Head and Face: Normocephalic, atraumatic. Skin: No cutaneous lesions of the face or neck. Neurologic: Alert and oriented x 4. Vision grossly intact. EOMI. Facial sensation equal bilaterally. Facial strength symmetric in all branches bilaterally. Hearing grossly diminished but able to understand loud speech. Palate raise symmetric, tongue protrusion midline. Eyes: Pupils are equal, round, and reactive. No photophobia. Extraocular muscles are intact. No scleral icterus or injection. Ears: Left: Auricle well formed. Mastoid soft and nontender, no erythema. Canal is clear. Tympanic membrane is round and intact, bulging with effusion. Right: Auricle well formed. Mastoid soft and nontender, no erythema. Canal has scant clear drainage.. Tympanic membrane is round and intact with purulent effusion, clear drainage overlying anterior TM without visualized perforation. Nose: Dorsum is midline. No masses or polyps visualized on anterior rhinoscopy. Left nasal cavity mucosa mildly erythematous. No purulence in either cavity. No drainage or discharge. Oral Cavity/Oropharynx: No visible mucosal lesions. Tongue protrudes midline, palate elevates symmetrically. Tonsils are not enlarged. Floor of mouth is pink and soft. No palpable abnormalities of the floor of mouth, oral tongue or base of tongue. Neck: No evidence of lymphadenopathy, masses or tenderness. Cardiovascular: Extremities are warm and well perfused. Pulmonary: Normal quiet breathing. No respiratory distress, stridor, or wheeze. [address]: Right Rinne: Right: BC>AC Left: BC>AC Lab/Radiology/Diagnostic Review: Laboratory review: Lab results in the last 24 hours: Recent Results (from the past 24 hour(s)) Comprehensive metabolic panel Collection Time: 06/12/19 10:38 AM Result Value Ref Range Sodium 138 135 - 145 mmol/L Potassium, pl 5.3 (H) 3.3 - 4.9 mmol/L Chloride 103 97 - 110 mmol/L CO2 26 22 - 32 mmol/L Anion gap 9 2 - 15 mmol/L BUN 26 (H) 8 - 25 mg/dL Creatinine 0.82 0.80 - 1.30 mg/dL Glucose 208 (H) 70 - 199 mg/dL Calcium 9.0 8.5 - 10.3 mg/dL Bilirubin, total 0.2 0.1 - 1.2 mg/dL Protein, pl 6.4 (L) 6.5 - 8.5 g/dL Albumin 3.7 3.5 - 5.0 g/dL Alk phos 97 40 - 130 Units/L ALT 50 7 - 55 Units/L AST 46 10 - 50 Units/L Magnesium Collection Time: 06/12/19 10:38 AM Result Value Ref Range Magnesium 2.0 1.4 - 2.5 mg/dL Phosphorus Collection Time: 06/12/19 10:38 AM Result Value Ref Range Phosphorus, pl 3.7 2.3 - 4.5 mg/dL Lactate dehydrogenase (LD) Collection Time: 06/12/19 10:38 AM Result Value Ref Range Lactate dehydrogenase (LDH) See Comment 100 - 250 Units/L Uric acid Collection Time: 06/12/19 10:38 AM Result Value Ref Range Uric acid 6.2 3.0 - 8.0 mg/dL Protime-INR Collection Time: 06/12/19 10:38 AM Result Value Ref Range PT 12.0 8.6 - 13.0 sec INR 1.1 0.8 - 1.2 aPTT Collection Time: 06/12/19 10:38 AM Result Value Ref Range aPTT 23 (L) 25 - 37 sec Type and screen Collection Time: 06/12/19 10:38 AM Result Value Ref Range ABO Rh O Positive Calin, indirect Negative CBC without differential Collection Time: 06/12/19 10:38 AM Result Value Ref Range WBC 12.3 (H) 3.8 - 9.9 K/cumm Hgb 12.1 (L) 13.0 - 17.5 g/dL Hct 35.7 (L) 38.9 - 50.3 % Plt 230 150 - 400 K/cumm MPV 11.3 9.1 - 12.3 fL RBC 3.72 (L) 4.30 - 5.80 M/cumm MCV 96.0 81.3 - 96.4 fL MCH 32.5 27.1 - 33.3 pg MCHC 33.9 32.3 - 35.7 g/dL RDW CV 15.4 (H) 11.1 - 14.9 % RDW SD 52.8 (H) 35.7 - 48.1 fL NRBC abs 0.03 (H) 0.00 - 0.01 K/cumm Manual Differential Collection Time: 06/12/19 10:38 AM Result Value Ref Range Differential Manual Cells Counted 115 Neutrophil abs 10.2 (H) 1.7 - 6.5 K/cumm Imm gran abs 0.0 0.0 - 0.1 K/cumm Lymphocyte abs 1.5 0.8 - 3.3 K/cumm Monocyte abs 0.3 0.2 - 0.8 K/cumm Eosinophil abs 0.2 0.0 - 0.5 K/cumm Basophil abs 0.1 0.0 - 0.1 K/cumm Neutrophil pct 82.6 % Lymphocyte pct 8.7 % Monocyte pct 2.6 % Eosinophil pct 1.7 % Basophil pct 0.9 % Variant lymphs 3.5 % RBC morphology Present Anisocytosis Slight (A) Platelet estimate Adequate Aerobic and anaerobic culture and gram stain Wound Not specified Collection Time: 06/12/19 6:18 PM Result Value Ref Range Direct Specimen Exam (.) Stain: Moderate polymorphonuclear leukocytes seen. Rare Gram Positive Bacilli Imaging review: I have independently examined the image(s) of CT face. My findings are L mxillary/frontal/ethmoid sinus opacification, R maxillary sinus mucocele, mild thickening in R and L sphenoid.No bony erosion or destruction. Noncoalescent mastoid effusion with middle ear effusions bilaterally Myringotomy with Tympanostomy Tube Placement Diagnosis: bilateral conductive hearing loss Procedure: Bilateral Myringotomy with Tympanostomy Tube placement Tube Type: T-tubeButton Procedure: After a discussion of treatment options including observation, medical therapy, or surgical therapy in the form of myringotomy with tympanostomy tube placement, the patient elected to proceed with surgical therapy. The patient was placed in supine position. The microscope was brought into position. The tympanic membrane was anesthetized with Emla cream. A myringotomy blade was used to make a radial incision. The tympanic membrane was noted to be edematous and thickened. The tympanostomy tube was placed. The middle ear space was suctioned. Purulence was noted bilaterally. The patient tolerated the procedure well. Assessment /Plan 68 y.o. year old male with severe sinusitis symptoms, bilateral ear effusions and decreased hearing. On imbruvica which in the literature has been associated with sinusitis. Has failed outpatient medical therapy. There is no evidence of intracranial complications and in the setting of COVID pandemic will trial aggressive medical therapy first prior to consideration for surgery. We did review the risks and benefits of bilateral tympanostomy tube placement and the patient elected to proceed to obtain cultures, allow for topical drops, and symptom relief. He tolerated this well. For sinus symptoms will obtain nasal swab x 2 taken of left nasal cavity, please send for aerobic/anerobic and fungal. Medical therapy should include: - Afrin TID x 3 days to decongest -Neilmed irrigations wit 1 in strip of mupirocin dissolved in saline solution, irrigate with full bottle divided between both nasal cavities TID - blood cultures - consider ID consultation for IV medication management with consideration for Unasyn Thank you for this consult. We will be available if you have further questions or concerns. I personally saw and examined the patient on 06/13/2019 obtaining the kinsey and critical portions of the history and physical exam and performing bilateral tympanostomy tube placement. I have reviewed the resident???s documentation, assessment, and plan. I am in agreement with their medical decision making. Cass Olivia M.D. Director Of Teacher Education Otology/Neurotology Department of Otolaryngology [facility] E-mail: [email or web address] 06/14/2019 9:04 AM Dictated using M*Modal; online marketing specialist variances may occur. documented in this encounter Miscellaneous Notes * Plan of Care - Nito Mari RN - 06/15/2019 1:53 PM CDT Goals: Clinical Goals for the Shift: pt going home Summary: pt discharging * Plan of Care - Nito Mari RN - 06/15/2019 1:53 PM CDT Goals: Clinical Goals for the Shift: pt going home Summary: pt discharging * Plan of Care - Nadine Blackwell RN - 06/15/2019 1:22 PM CDT Received communication that Home Infusion no longer needed. [facility] Home Care Services Infusion Coordinator will continue to monitor for changes/updates until discharge from Inpatient status Thank You Nadine Gomez ) Rishi Lead Machine Programmer Home infusion [facility] Home Care [phone] * Plan of Care - Osvaldo Naylor RN - 06/15/2019 12:49 PM CDT Home Infusion referral completed this AM when Anticipated patient would need IV antibiotics for discharge, however, per discussion in DCAM rounds , plan discharge today on oral antibiotics. * Plan of Care - Nadine Blackwell RN - 06/15/2019 12:37 PM CDT Referral received. We will need to assess patient and/or family for home infusion appropriateness, verify benefits for home infusion, and educate patient/family on home infusion process and obtain Home Health Nursing. Referrals are processed between 8am - 4:00pm Saturday - Saturday. For after hour emergencies please call [phone]. Any referrals received after 4pm will be processed the next day and Saturday for the weekend. For discharge planning purposes please keep in mind that referrals take 24 or more hours to process. Thank you ALEX Anthony (Dee), RN Lead Machine Programmer Home Infusion [facility] Home Care [phone] * Plan of Care - Prudencio Velasquez RN - 06/14/2019 9:41 PM CDT Problem: Lack of Knowledge: Goal: Ability to develop a pain control plan will improve Outcome: Progressing Goal: Ability to identify pain intensity on a pain scale and rate it consistently will improve Outcome: Progressing Goal: Ability to notify healthcare provider of pain before it becomes unmanageable or unbearable will improve Outcome: Progressing Problem: Medication: Goal: Satisfaction with pain management regimen will improve Outcome: Progressing Problem: Sensory: Goal: Ability to identify factors that increase the pain will improve Outcome: Progressing Goal: Pain level will decrease Outcome: Progressing Problem: Health Behavior: Goal: Understanding of discharge needs will improve Outcome: Progressing Goals: Summary: * Assessment & Plan Note - Shiv Hawthorne MD - 06/14/2019 1:38 PM CDT Associated Problem(s): Hypogammaglobulinemia (HCC) Agree with IVIG administration; this should help in the short term. * Assessment & Plan Note - Shiv Hawthorne MD - 06/14/2019 1:32 PM CDT Associated Problem(s): Mastoiditis of both sides With otitis. Possibly from H. Influenzae as well. Await final cultures. Agree with topical antibiotic plan per ENT. I'm not sure if yeast/CONS reflects sampling error or contamination, but is unlikely to be cause ofsuch an infection. * Assessment & Plan Note - Shiv Hawthorne MD - 06/14/2019 1:29 PM CDT Associated Problem(s): Acute recurrent sinusitis Appears to favor bacterial etiology based on imaging and scope findings. Ibrutinib is a risk factor for fungal infection, but usually in patients with neutropenia and otherrisk factors, which the patient lacks. Nasal swab [...] completed pneumococcal vaccination as appropriate for age. * Plan of Care - Nito Mari RN - 06/14/2019 1:11 PM CDT Goals: Summary: pt states pain is significantly better today * Plan of Care - Prudencio Velasquez RN - 06/13/2019 9:36 PM CDT Problem: Lack of Knowledge: Goal: Ability to develop a pain control plan will improve Outcome: Progressing Goal: Ability to identify pain intensity on a pain scale and rate it consistently will improve Outcome: Progressing Goal: Ability to notify healthcare provider of pain before it becomes unmanageable or unbearable will improve Outcome: Progressing Problem: Medication: Goal: Satisfaction with pain management regimen will improve Outcome: Progressing Problem: Sensory: Goal: Ability to identify factors that increase the pain will improve Outcome: Progressing Goal: Pain level will decrease Outcome: Progressing Problem: Health Behavior: Goal: Understanding of discharge needs will improve Outcome: Progressing Goals: Summary: * Assessment & Plan Note - Kaylee Chatterjee MD - 06/13/2019 6:37 PM CDT Associated Problem(s): Hypogammaglobulinemia (HCC) In setting of CLL. IgG < 400. Has recurrent sinus infections. - S/p IVIG 06/12 * Plan of Care - Nito Mari RN - 06/13/2019 3:24 PM CDT Goals: Summary: pt pain under control with oral med * Hospital Course - Ricardo Rizzo MD - 06/13/2019 10:13 AM CDT In summary of admission: Patient presented with acute worsening of persistent sinus symptoms, now with ear drainage, bilateral hearing loss. He had failed multiple courses of outpatient antibiotics and was having increasing symptoms that have required multiple ED evaluations. He had been recommended for surgical intervention by outpatient outside ENT, but had been unable to get this due to COVID restrictions. He was admitted for ENT evaluation and symptom control. CT head/sinus on admission showed left ostiomeatal unitocclusion with corresponding severe sinus disease involving the left frontal sinus, maxillary sinus, and anterior ethmoid air cells, nonspecific bilateral middle ear cavity opacities and mastoid air cell opacities without associated bony destruction. ENT was consulted. He was started on Zosyn. Saline rinses were performed. ENT placed bilateral myringotomy tubes 06/12. ID was consulted. IgG was < 400, so IVIG was given 06/12. In regards to other medical problems actively managed throughout admission: - SLL/CLL- now on ibrutinib with clinical evidence of response. His blood counts were near his baseline. His ibrutinib had been held prior to admission given plan for surgery. His OI prophylaxis withacyclovir was continued. - Hypogammaglobulinemia- IgG < 400, given recurrent sinus infections, given IVIG 06/12. He tolerated this with only chills after completion. He can continue to receive monthly IVIG infusions as outpatient. - Anxiety and depression- worsening mood, anxiety, and depression related to ongoing pain, hearing loss. Continued Lexapro and Xanax. * Plan of Care - Prudencio Velasquez RN - 06/13/2019 2:43 AM CDT Problem: Lack of Knowledge: Goal: Ability to develop a pain control plan will improve Outcome: Progressing Goal: Ability to identify pain intensity on a pain scale and rate it consistently will improve Outcome: Progressing Goal: Ability to notify healthcare provider of pain before it becomes unmanageable or unbearable will improve Outcome: Progressing Problem: Medication: Goal: Satisfaction with pain management regimen will improve Outcome: Progressing Problem: Sensory: Goal: Ability to identify factors that increase the pain will improve Outcome: Progressing Goal: Pain level will decrease Outcome: Progressing Goals: Summary: * Assessment & Plan Note - Kaylee Chatterjee MD - 06/12/2019 1:13 PM CDT Associated Problem(s): Acute recurrent sinusitis Acute worsening of persistent sinus symptoms and initially presented with ear drainage, bilateral hearing loss. Patient had been on Imbruvica (held in anticipation of sinus surgery which had to be delayed due to COVID19 restrictions on elective surgery) which has association with sinusitis. He had f randa multiple courses of outpatient antibiotics. CT head/sinus [...] x 14 days; ciprofloxacin-fluocinolone drops switched to ciprofloxacin- dexamethasone drops 4 gtt BID in each ear [...] context. Recommended levofloxacin 750 mg every day x7 days (QTc 396 06/14) --> will plan to extend this to 14 days per BMT. Plan to discharge home with [facility] ENT notified to contact patient for follow up. - Continue Flonase, Zyrtec * Assessment & Plan Note - Kaylee Chatterjee MD - 06/12/2019 1:13 PM CDT Associated Problem(s): Anxiety and depression Worsening mood, anxiety, depression related to ongoing pain, hearing loss. - Continue Lexapro 10mg daily - Continue Xanax 0.5 mg TID PRN * Assessment & Plan Note - Kaylee Chatterjee MD - 06/12/2019 1:11 PM CDT Associated Problem(s): CLL (chronic lymphocytic leukemia) (HCC) SLL/CLL. Initially treated with FCR, obtained remission [...] course completed - Continue OI prophylaxis- acyclovir * Plan of Care - Zeenat Andrews RN - 06/12/2019 11:15 AM CDT Problem: Lack of Knowledge: Goal: Ability to develop a pain control plan will improve Outcome: Progressing Goal: Ability to identify pain intensity on a pain scale and rate it consistently will improve Outcome: Progressing Goal: Ability to notify healthcare provider of pain before it becomes unmanageable or unbearable will improve Outcome: Progressing Problem: Medication: Goal: Satisfaction with pain management regimen will improve Outcome: Progressing Problem: Sensory: Goal: Ability to identify factors that increase the pain will improve Outcome: Progressing Goal: Pain level will decrease Outcome: Progressing Goals: Summary: Decrease pain documented in this encounter Plan of Treatment Scheduled Orders Name Type Priority Associated Diagnoses Orde r Schedule Urinalysis reflex to microscopic and culture Urine, bladder Microbiology STAT Lab order s - as needed, STAT collection for 1 Occurrences starting 06/12/2019 documented as of this encounter Procedures Procedure Name Priority Date/Time Associated Diagnosis Comments ECG 12-LEAD STAT 06/15/2019 7:30 AM CDT BMT CBC Routine 06/15/2019 2:53 AM CDT MANUAL DIFFERENTIAL Routine 06/15/2019 2 :53 AM CDT APTT Routine 06/15/2019 2:53 AM CDT PROTIME-INR Routine 06/15/2019 2:53 AM CDT CBC WITHOUT DIFFERENTIAL Routine 06/15/2019 2:53 AM CDT TYPE AND SCREEN Timed 06/15/2019 2:53 AM CDT URIC ACID Timed 06/15/2019 2:53 AM CDT PHOSPHORUS Timed 06/15/2019 2:53 AM CDT MAGNESIUM Timed 06/15/2019 2:53 AM CDT LACTATE DEHYDROGENASE Timed 06/15/2019 2:53 AM CDT COMPREHENSIVE METABOLIC PANEL Timed 06/15/2019 2:53 AM CDT BMT CBC Routine 06/14/2019 5:21 AM CDT MANUAL DIFFERENTIAL Routine 06/14/2019 5 :21 AM CDT CBC WITHOUT DIFFERENTIAL Routine 06/14/2019 5:21 AM CDT PHOSPHORUS Routine 06/14/2019 5:21 AM CDT MAGNESIUM Routine 06/14/2019 5:21 AM CDT BASIC METABOLIC PANEL Routine 06/14/2019 5:21 AM CDT IMMUNOGLOBULIN PROFILE Timed 0 4:36 PM CDT AEROBIC AND ANAEROBIC CULTURE AND GRAM STAIN Routine 06/13/2019 11:13 AM CDT AEROBIC AND ANAEROBIC CULTURE AND GRAM STAIN Routine 06/13/2019 11:12 AM CDT BMT CBC Routine 06/13/2019 5:23 AM CDT MANUAL DIFFERENTIAL Routine 06/13/2019 5 :23 AM CDT CBC WITHOUT DIFFERENTIAL Routine 06/13/2019 5:23 AM CDT PHOSPHORUS Routine 06/13/2019 5:23 AM CDT MAGNESIUM Routine 06/13/2019 5:23 AM CDT BASIC METABOLIC PANEL Routine 06/13/2019 5:23 AM CDT MYCOLOGY (FUNGAL) CULTURE Routine 06/12/2019 6:18 PM CDT AEROBIC AND ANAEROBIC CULTURE AND GRAM STAIN Routine 06/12/2019 6:18 PM CDT BLOOD CULTURE STAT 06/12/2019 5:17 PM CDT BLOOD CULTURE STAT 06/12/2019 5:[address] HEAD SINUSES WO CONTRAST IP Routine 06/12/2019 11:36 AM CDT BMT CBC STAT 06/12/2019 10:38 AM CDT MANUAL DIFFERENTIAL STAT 06/12/2019 1 0:38 AM CDT APTT STAT 06/12/2019 10:38 AM CDT PROTIME-INR STAT 06/12/2019 10:38 AM CDT CBC WITHOUT DIFFERENTIAL STAT 06/12/2019 10:38 AM CDT TYPE AND SCREEN STAT 06/12/2019 10:38 AM CDT URIC ACID STAT 06/12/2019 10:38 AM CDT PHOSPHORUS STAT 06/12/2019 10:38 AM CDT MAGNESIUM STAT 06/12/2019 10:38 AM CDT LACTATE DEHYDROGENASE STAT 06/12/2019 10:38 AM CDT COMPREHENSIVE METABOLIC PANEL STAT 06/12/2019 10:38 AM CDT documented in this encounter Results * ECG 12 lead (06/15/2019 7:30 AM CDT) Ventricular Rate EKG/Min 76 BPM [facility] Atrial Rate 76 BPM [facility] AK-Interval (MSEC) 194 ms [facility] QRS-Interval (MSEC) 88 ms [facility] QT-Interval (MSEC) 352 ms [facility] QTc 396 ms [facility] P [place] 71 degrees [facility] R [place] 11 degrees [facility] T [place] 51 degrees [facility] Diagnosis Normal sinus rhythm Normal ECG No previous ECGs available Confirmed by LUBA GALDAMEZ M.D ([id number]) on 06/15/2019 5:50:01 PM [facility] 06/15/2019 7:30 AM CDT 06/15/2019 5:50 PM CDT Kaylee Chatterjee MD ECG ORDERABLES Final Resu lt Performing Organization Address City/[facility]/ZIP Co de Phone Number [facility] * Phosphorus (06/15/2019 2:53 AM CDT) Pathologist [facility] [place] Phosphorus, pl 3.6 2.3 - 4.5 mg/dL [facility] Blood specimen (specimen) 06/15/2019 2:53 AM CDT 06/15/2019 3:45 AM CDT us Burt Dos Santos MD PhD LAB BLOOD ORDERABLES Final Result [facility] One [facility] Department [place] [address] * Magnesium (06/15/2019 2:53 AM CDT) Pathologist [facility] [place] Magnesium 2.1 1.4 - 2.5 mg/dL [facility] Blood specimen (specimen) 06/15/2019 2:53 AM CDT 06/15/2019 3:45 AM CDT Burt Dos Santos MD PhD LAB BLOOD ORDERABLES Final Result [facility] Department [place] [address] * (ABNORMAL) Manual Differential (06/15/2019 2:53 AM CDT) Pathologist [facility] [place] Differential Manual [facility] Cells Counted 115 [facility] Neutrophil abs 4.8 1.7 - 6.5 K/cumm [facility] Imm gran abs 0.2(H) 0.0 - 0.1 K/cumm [facility] Lymphocyte abs 1.7 0.8 - 3.3 K/cumm [facility] Monocyte abs 0.5 0.2 - 0.8 K/cumm [facility] Eosinophil abs 0.1 0.0 - 0.5 K/cumm [facility] Basophil abs 0.1 0.0 - 0.1 K/cumm [facility] Neutrophil pct 65.2 % [facility] Comment: Interpretive Data Percent cell count reference ranges are not reported, since discordance with absolute values may lead to misinterpretation of CBC data. Current Interpretive Data was last revised on 2017. Lymphocyte pct 16.5 % [facility] Comment: Interpretive Data Percent cell count reference ranges are not reported, since discordance with absolute values may lead to misinterpretation of CBC data. Current Interpretive Data was last revised on 2017. Monocyte pct 7.0 % [facility] Comment: Interpretive Data Percent cell count reference ranges are not reported, since discordance with absolute values may lead to misinterpretation of CBC data. Current Interpretive Data was last revised on 2017. Eosinophil pct 0.9 % [facility] Comment: Interpretive Data Percent cell count reference ranges are not reported, since discordance with absolute values may lead to misinterpretation of CBC data. Current Interpretive Data was last revised on 2017. Basophil pct 1.7 % [facility] Comment: Interpretive Data Percent cell count reference ranges are not reported, since discordance with absolute values may lead to misinterpretation of CBC data. Current Interpretive Data was last revised on 2017. Myelocyte pct 1.7 % [facility] Promyelocyte pct 0.9 % [facility] Variant lymph pct 6.1 % [facility] RBC morphology Normal [facility] Platelet estimate Adequate [facility] Blood specimen (specimen) 06/15/2019 2:53 AM CDT 06/15/2019 3:04 AM CDT Ricardo Rizzo MD LAB BLOOD ORDERABLES E dited Result - Final [facility] Department [place] [address] * (ABNORMAL) CBC without differential (06/15/2019 2:53 AM CDT) WBC 7.4 3.8 - 9.9 K/cumm [facility] Hgb 12.5(L) 13.0 - 17.5 g/dL [facility] Hct 37.7(L) 38.9 - 50.3 % [facility] Plt 222 150 - 400 K/cumm [facility] MPV 10.8 9.1 - 12.3 fL [facility] RBC 3.84(L) 4.30 - 5.80 M/cumm [facility] MCV 98.2(H) 81.3 - 96.4 fL [facility] MCH 32.6 27.1 - 33.3 pg [facility] MCHC 33.2 32.3 - 35.7 g/dL [facility] RDW CV 15.4(H) 11.1 - 14.9 % [facility] RDW SD 54.4(H) 35.7 - 48.1 fL [facility] NRBC abs 0.03(H) 0.00 - 0.01 K/cumm [facility] Blood specimen (specimen) 06/15/2019 2:53 AM CDT 06/15/2019 3:04 AM CDT Ricardo Rizzo MD LAB BLOOD ORDERABLES F inal Result Performing Organization Address [facility] de Phone Number [facility] [place] [address] * Protime-INR (06/15/2019 2:53 AM CDT) PT 12.5 8.6 - 13.0 sec [facility] INR 1.2 0.8 - 1.2 [facility] Comment: Interpretive data Oral anticoagulant therapeutic ranges: Venous thromboembolism prophylaxis or treatment: 2.0-3.0 CARDIOLOGY Standard range: 2.0-3.0 High-intensity range: 2.5-3.5 Refer to indication-specific guidelines for appropriate target ranges for prosthetic heart valve replacement. Current interpretive data was last revised on 2019. Blood specimen (specimen) 06/15/2019 2:53 AM CDT 06/15/2019 3:04 AM CDT Ricardo Rizzo MD LAB BLOOD ORDERABLES F inal Result Performing Organization Address [facility] de Phone Number [facility] [place] [place] [address] * aPTT (06/15/2019 2:53 AM CDT) aPTT 27 25 - 37 sec [facility] Comment: Interpretive data Heparin therapeutic range: 60-90 seconds Range based on correlation with therapeutic heparin activity range of 0.3-0.7 units/ml. Current interpretive data was last revised on 2019. Blood specimen (specimen) 06/15/2019 2:53 AM CDT 06/15/2019 3:04 AM CDT Ricardo Rizzo MD LAB BLOOD ORDERABLES F inal Result Performing Organization Address [facility] Co de Phone Number [facility] [place] [address] * Lactate dehydrogenase (LD) (06/15/2019 2:53 AM CDT) Pathologist [facility] [place] Lactate dehydrogenase (LDH) See Comment 100 - 250 Units/L [facility] Comment:Credited Hemolyzed Blood specimen (specimen) 06/15/2019 2:53 AM CDT 06/15/2019 3:45 AM CDT Narrative [facility] - 06/15/2019 4:36 AM CDT Saturday and only. Morning draw. Ricardo Rizzo MD LAB BLOOD ORDERABLES F inal Result Performing Organization Address [facility] de Phone Number [facility] [place] [address] * Uric acid (06/15/2019 2:53 AM CDT) [facility] Uric acid 5.1 3.0 - 8.0 mg/dL [facility] Blood specimen (specimen) 06/15/2019 2:53 AM CDT 06/15/2019 3:45 AM CDT Narrative [facility] - 06/15/2019 4:36 AM CDT Saturday and only. Morning draw. . Ricardo Rizzo MD LAB BLOOD ORDERABLES F inal Result Performing Organization Address City/[facility] Co de Phone Number [facility] [place] [address] * (ABNORMAL) Comprehensive metabolic panel (06/15/2019 2:53 AM CDT) Pathologist [facility] [place] Sodium 140 135 - 145 mmol/L [facility] Potassium, pl 5.0(H) 3.3 - 4.9 mmol/L [facility] Comment:Hemolyzed; Potassium value may be falsely elevated by as much as 1.1-1.6 mmol/L. Suggest redraw and reanalysis. Chloride 104 97 - 110 mmol/L [facility] CO2 28 22 - 32 mmol/L [facility] Anion gap 8 2 - 15 mmol/L [facility] BUN 13 8 - 25 mg/dL [facility] Creatinine 0.93 0.80 - 1.30 mg/dL [facility] Glucose 101 70 - 199 mg/dL [facility] Comment: Interpretive Data Fasting [...] interpretive data was last revised 2017. Calcium 9.1 8.5 - 10.3 mg/dL [facility] Bilirubin, total 0.2 0.1 - 1.2 mg/dL [facility] Protein, pl 6.6 6.5 - 8.5 g/dL [facility] Albumin 3.6 3.5 - 5.0 g/dL [facility] Alk phos 88 40 - 130 Units/L [facility] Comment:Hemolyzed result may be falsely decreased ALT 38 7 - 55 Units/L [facility] AST 41 10 - 50 Units/L [facility] Comment:Hemolyzed; result ma y be falsely elevated Blood specimen (specimen) 06/15/2019 2:53 AM CDT 06/15/2019 3:45 AM CDT Narrative [facility] - 06/15/2019 4:36 AM CDT Saturday and only. Morning draw. us Ricardo Rizzo MD LAB BLOOD ORDERABLES F inal Result [facility] Department [place] [address] * Type and screen (06/15/2019 2:53 AM CDT) Calin, indirect Negative [facility] ABO Rh O Positive [facility] Blood specimen (specimen) 06/15/2019 2:53 AM CDT 06/15/2019 3:14 AM CDT Narrative [facility] - 06/15/2019 4:02 AM CDT Has the patient had Daratumumab (Darzalex) in the past 6 months?->Unknown Ricardo Rizzo MD LAB BLOOD BANK TEST OR DERABLES Final Result [facility] One [facility] [place] [address] * (ABNORMAL) Manual Differential (06/14/2019 5:21 AM CDT) Pathologist [facility] [place] Differential Manual [facility] Cells Counted 113 [facility] Neutrophil abs 6.3 1.7 - 6.5 K/cumm [facility] Imm gran abs 0.2(H) 0.0 - 0.1 K/cumm [facility] Lymphocyte abs 1.8 0.8 - 3.3 K/cumm [facility] Monocyte abs 0.1(L) 0.2 - 0.8 K/cumm [facility] Eosinophil abs 0.2 0.0 - 0.5 K/cumm [facility] Neutrophil pct 74.2 % [facility] Comment: Interpretive Data Percent cell count reference ranges are not reported, since discordance with absolute values may lead to misinterpretation of CBC data. Current Interpretive Data was last revised on 2017. Lymphocyte pct 18.6 % [facility] Comment: Interpretive Data Percent cell count reference ranges are not reported, since discordance with absolute values may lead to misinterpretation of CBC data. Current Interpretive Data was last revised on 2017. Monocyte pct 0.9 % [facility] Comment: Interpretive Data Percent cell count reference ranges are not reported, since discordance with absolute values may lead to misinterpretation of CBC data. Current Interpretive Data was last revised on 2017. Eosinophil pct 1.8 % [facility] Comment: Interpretive Data Percent cell count reference ranges are not reported, since discordance with absolute values may lead to misinterpretation of CBC data. Current Interpretive Data was last revised on 2017. Metamyelocyte pct 1.8 % [facility] Variant lymph pct 2.7 % [facility] RBC morphology Normal [facility] Platelet estimate Adequate [facility] Blood specimen (specimen) 06/14/2019 5:21 AM CDT 06/14/2019 5:38 AM CDT us Ricardo Rizzo MD LAB BLOOD ORDERABLES E dited Result - Final [facility] Department [place] [address] * (ABNORMAL) CBC without differential (06/14/2019 5:21 AM CDT) WBC 8.5 3.8 - 9.9 K/cumm [facility] Hgb 11.6(L) 13.0 - 17.5 g/dL [facility] Hct 33.8(L) 38.9 - 50.3 % [facility] Plt 202 150 - 400 K/cumm [facility] MPV 10.8 9.1 - 12.3 fL [facility] RBC 3.51(L) 4.30 - 5.80 M/cumm [facility] MCV 96.3 81.3 - 96.4 fL [facility] MCH 33.0 27.1 - 33.3 pg [facility] MCHC 34.3 32.3 - 35.7 g/dL [facility] RDW CV 15.5(H) 11.1 - 14.9 % [facility] RDW SD 52.7(H) 35.7 - 48.1 fL [facility] NRBC abs 0.02(H) 0.00 - 0.01 K/cumm [facility] Blood specimen (specimen) 06/14/2019 5:21 AM CDT 06/14/2019 5:38 AM CDT Ricardo Rizzo MD LAB BLOOD ORDERABLES F inal Result Performing Organization Address [facility] de Phone Number [facility] [place] [address] * Phosphorus (06/14/2019 5:21 AM CDT) Pathologist [facility] [place] Phosphorus, pl 3.3 2.3 - 4.5 mg/dL [facility] Blood specimen (specimen) 06/14/2019 5:21 AM CDT 06/14/2019 5:38 AM CDT Ricardo Rizzo MD LAB BLOOD ORDERABLES F inal Result Performing Organization Address [facility] de Phone Number [facility] [place] [address] * Magnesium (06/14/2019 5:21 AM CDT) [facility] Magnesium 2.0 1.4 - 2.5 mg/dL [facility] Blood specimen (specimen) 06/14/2019 5:21 AM CDT 06/14/2019 5:38 AM CDT Ricardo Rizzo MD LAB BLOOD ORDERABLES F inal Result Performing Organization Address [facility] de Phone Number [facility] [place] [address] * (ABNORMAL) Basic metabolic panel (06/14/2019 5:21 AM CDT) [facility] Sodium 138 135 - 145 mmol/L [facility] Potassium, pl 4.0 3.3 - 4.9 mmol/L [facility] Chloride 105 97 - 110 mmol/L [facility] CO2 28 22 - 32 mmol/L [facility] Anion gap 5 2 - 15 mmol/L [facility] BUN 16 8 - 25 mg/dL [facility] Creatinine 0.86 0.80 - 1.30 mg/dL [facility] Glucose 118 70 - 199 mg/dL [facility] Comment: Interpretive Data Fasting [...] interpretive data was last revised 2017. Calcium 8.3(L) 8.5 - 10.3 mg/dL [facility] Blood specimen (specimen) 06/14/2019 5:21 AM CDT 06/14/2019 5:38 AM CDT Narrative [facility] - 06/14/2019 6:03 AM CDT Daily except Saturday and . Morning draw. Ricardo Rizzo MD LAB BLOOD ORDERABLES F inal Result Performing Organization Address City/[facility] Co de Phone Number [facility] Department [place] [address] * (ABNORMAL) Immunoglobulin profile (06/13/2019 4:36 PM CDT) [facility] Immunoglobulin G <300.0(L) 700.0 - 1,600.0 mg/dL [facility] Immunoglobulin A <50.0(L) 70.0 - 400.0 mg/dL [facility] Immunoglobulin M <25.0(L) 40.0 - 230.0 mg/dL [facility] Blood specimen (specimen) 06/13/2019 4:36 PM CDT 06/13/2019 4:53 PM CDT Ricardo Rizzo MD LAB BLOOD ORDERABLES F inal Result Performing Organization Address [facility] Co de Phone Number [facility] Department [place] [address] * Aerobic and anaerobic culture and gram stain Aspirate Ear, middle, left (06/13/2019 11:13 AM CDT) Direct Specimen Exam Stain: No polymorphonuclear leukocytes seen. No organisms seen. [facility] Report Final Report: No growth [facility] Aspirate (Ear, middle, left) 06/13/2019 11:13 AM CDT 06/13/2019 11:31 AM CDT Narrative [facility] - 06/16/2019 10:19 AM CDT Testing performed by [facility] ([phone]) Specimens submitted from normally sterile body sites [...] interpretive data was last revised on 2019. Burt Dos Santos MD PhD LAB MICROBIOLOGY - [facility] ORDERABLES Final Result [facility] Department [place] [address] * (ABNORMAL) Aerobic and anaerobic culture and gram stain Aspirate Ear, middle, right (06/13/2019 11:12 AM CDT) Direct Specimen Exam Stain: Moderate polymorphonuclear leukocytes seen. Rare Yeast [facility] Report Final Report: Rare Coagulase negative Staphylococcus species (.) [facility] Organism COAGULASE NEGATIVE STAPHYLOCOCCUS SPECIES [facility] Aspirate (Ear, middle, right) 06/13/2019 11:12 AM CDT 06/13/2019 11:56 AM CDT Narrative [facility] - 06/16/2019 10:32 AM CDT Testing performed by [facility] ([phone]) Specimens submitted from normally sterile body sites [...] interpretive data was last revised on 2019. Burt Dos Santos MD PhD LAB MICROBIOLOGY - [facility] ORDERABLES Final Result [facility] One [facility] Department [place] [address] * (ABNORMAL) Manual Differential (06/13/2019 5:23 AM CDT) Differential Manual [facility] Cells Counted 114 [facility] Neutrophil abs 8.4(H) 1.7 - 6.5 K/cumm [facility] Imm gran abs 0.2(H) 0.0 - 0.1 K/cumm [facility] Lymphocyte abs 3.2 0.8 - 3.3 K/cumm [facility] Monocyte abs 0.2 0.2 - 0.8 K/cumm [facility] Basophil abs 0.2(H) 0.0 - 0.1 K/cumm [facility] Neutrophil pct 68.3 % [facility] Comment: Interpretive Data Percent cell count reference ranges are not reported, since discordance with absolute values may lead to misinterpretation of CBC data. Current Interpretive Data was last revised on 2017. Lymphocyte pct 26.3 % [facility] Comment: Interpretive Data Percent cell count reference ranges are not reported, since discordance with absolute values may lead to misinterpretation of CBC data. Current Interpretive Data was last revised on 2017. Monocyte pct 1.8 % [facility] Comment: Interpretive Data Percent cell count reference ranges are not reported, since discordance with absolute values may lead to misinterpretation of CBC data. Current Interpretive Data was last revised on 2017. Basophil pct 1.8 % [facility] Comment: Interpretive Data Percent cell count reference ranges are not reported, since discordance with absolute values may lead to misinterpretation of CBC data. Current Interpretive Data was last revised on 2017. Myelocyte pct 1.8 % [facility] RBC morphology Present(A) [facility] Anisocytosis Slight(A) [facility] Platelet estimate Adequate [facility] Blood specimen (specimen) 06/13/2019 5:23 AM CDT 06/13/2019 5:37 AM CDT us Ricardo Rizzo MD LAB BLOOD ORDERABLES E dited Result - Final [facility] One [facility] Department [place] [address] * (ABNORMAL) CBC without differential (06/13/2019 5:23 AM CDT) WBC 12.3(H) 3.8 - 9.9 K/cumm [facility] Hgb 11.6(L) 13.0 - 17.5 g/dL [facility] Hct 35.1(L) 38.9 - 50.3 % [facility] Plt 204 150 - 400 K/cumm [facility] MPV 10.9 9.1 - 12.3 fL [facility] RBC 3.62(L) 4.30 - 5.80 M/cumm [facility] MCV 97.0(H) 81.3 - 96.4 fL [facility] MCH 32.0 27.1 - 33.3 pg [facility] MCHC 33.0 32.3 - 35.7 g/dL [facility] RDW CV 15.2(H) 11.1 - 14.9 % [facility] RDW SD 52.1(H) 35.7 - 48.1 fL [facility] NRBC abs 0.03(H) 0.00 - 0.01 K/cumm [facility] Blood specimen (specimen) 06/13/2019 5:23 AM CDT 06/13/2019 5:37 AM CDT us Ricardo Rizzo MD LAB BLOOD ORDERABLES F inal Result Performing Organization Address City/[facility] [place] [address] * Phosphorus (06/13/2019 5:23 AM CDT) [facility] Phosphorus, pl 3.7 2.3 - 4.5 mg/dL [facility] Blood specimen (specimen) 06/13/2019 5:23 AM CDT 06/13/2019 5:37 AM CDT Ricardo Rizzo MD LAB BLOOD ORDERABLES F inal Result Performing Organization Address [facility] Co [place] [address] * Magnesium (06/13/2019 5:23 AM CDT) [facility] Magnesium 2.1 1.4 - 2.5 mg/dL [facility] Blood specimen (specimen) 06/13/2019 5:23 AM CDT 06/13/2019 5:37 AM CDT Ricardo Rizzo MD LAB BLOOD ORDERABLES F inal Result Performing Organization Address [facility] Co de Phone Number [facility] [place] [address] * Basic metabolic panel (06/13/2019 5:23 AM CDT) [facility] Sodium 139 135 - 145 mmol/L [facility] Potassium, pl 3.9 3.3 - 4.9 mmol/L [facility] Chloride 105 97 - 110 mmol/L [facility] CO2 27 22 - 32 mmol/L [facility] Anion gap 7 2 - 15 mmol/L [facility] BUN 18 8 - 25 mg/dL [facility] Creatinine 0.88 0.80 - 1.30 mg/dL [facility] Glucose 123 70 - 199 mg/dL [facility] Comment: Interpretive Data Fasting [...] interpretive data was last revised 2017. Calcium 8.6 8.5 - 10.3 mg/dL [facility] Blood specimen (specimen) 06/13/2019 5:23 AM CDT 06/13/2019 5:37 AM CDT Narrative [facility] - 06/13/2019 6:06 AM CDT Daily except Saturday and . Morning draw. Ricardo Rizzo MD LAB BLOOD ORDERABLES F inal Result [facility] One [facility] Department [place] [address] * (ABNORMAL) Aerobic and anaerobic culture and gram stain Wound Not specified (06/12/2019 6:18 PM CDT) Direct Specimen Exam Stain: Moderate polymorphonuclear leukocytes seen. Rare Gram Positive Bacilli [facility] Report Final Report: Few Mixed upper respiratory tract microorganisms. Few Haemophilus influenzae , Beta lactamase negative (.) [facility] Organism MIXED UPPER RESPIRATORY TRACT MICROORGANISMS. [facility] Organism HAEMOPHILUS INFLUENZAE [facility] Wound (Not specified) 06/12/2019 6:18 PM CDT 06/12/2019 6:36 PM CDT Narrative [facility] - 06/15/2019 9:22 AM CDT Nasal swab Testing performed by [facility] ([phone]) Specimens submitted from normally sterile body sites [...] interpretive data was last revised on 2019. Ricardo Rizzo MD LAB MICROBIOLOGY - GEN ERAL ORDERABLES Final Result Performing Organization Address [facility] Co de Phone Number [facility] [place] [address] * Mycology (fungal) culture Nasal Sinus (06/12/2019 6:18 PM CDT) Report Final Report: No growth of fungus [facility] Nasal (Sinus) 06/12/2019 6:1 8 PM CDT 06/12/2019 6:37 PM CDT Narrative [facility] - 07/10/2019 12:47 PM CDT Testing performed by [facility] ([phone]). Ricardo Rizzo MD LAB MICROBIOLOGY - GEN ERAL ORDERABLES Final Result Performing Organization Address [facility] [place] [address] * Blood culture Blood Peripheral (06/12/2019 5:17 PM CDT) Report Final Report: No growth [facility] Blood specimen (specimen) (Peripheral) 06/12/2019 5:17 PM CDT 06/12/2019 6:45 PM CDT Narrative [facility] - 06/18/2019 7:00 AM CDT 1. Blood cultures are incubated for 5 days on a continuously monitored blood culture system. The first report of a negative culture is issued within 24 hours of receipt of the specimen in the laboratory. 2. Positive culture results are reported as soon as they are detected. 3. The most important factor for detection of microbes in the setting of bloodstream infection is the volume of blood submitted for culture. Failure to collect an optimal blood volume can result in false negative blood cultures. For pediatric patients, the recommended blood volume to collect is 1 mL of blood per year of patient age (up to 20 mL) per blood culture set. For adult patients, 20 mL of blood, divided equally between aerobic and anaerobic blood culture bottles, is recommended for each blood culture set. 4. For blood cultures with Gram-positive cocci, a rapid molecular test for organism identification may be performed using the Twillionigene Gram-Positive Blood Culture Assay. This assay detects microbial DNA in positive blood culture broth via hybridization of target DNA to capture oligonucleotides on a microarray. This assay has been cleared by the [place] Food and Drug Administration and its performance characteristics have been verified by the [facility]. 5. For questions about this culture, contact the Microbiology Laboratory at [phone]. Interpretive data was last revised on 2017. Ricardo Rizzo MD LAB MICROBIOLOGY - GEN ERAL ORDERABLES Final Result [facility] Department [place] [address] * Blood culture Blood Peripheral (06/12/2019 5:17 PM CDT) Report Final Report: No growth [facility] Blood specimen (specimen) (Peripheral) 06/12/2019 5:17 PM CDT 06/12/2019 6:43 PM CDT Narrative [facility] - 06/18/2019 7:00 AM CDT 1. Blood cultures are incubated for 5 days on a continuously monitored blood culture system. The first report of a negative culture is issued within 24 hours of receipt of the specimen in the laboratory. 2. Positive culture results are reported as soon as they are detected. 3. The most important factor for detection of microbes in the setting of bloodstream infection is the volume of blood submitted for culture. Failure to collect an optimal blood volume can result in false negative blood cultures. For pediatric patients, the recommended blood volume to collect is 1 mL of blood per year of patient age (up to 20 mL) per blood culture set. For adult patients, 20 mL of blood, divided equally between aerobic and anaerobic blood culture bottles, is recommended for each blood culture set. 4. For blood cultures with Gram-positive cocci, a rapid molecular test for organism identification may be performed using the Verigene Gram-Positive Blood Culture Assay. This assay detects microbial DNA in positive blood culture broth via hybridization of target DNA to capture oligonucleotides on a microarray. This assay has been cleared by the [place] Food and Drug Administration and its performance characteristics have been verified by the [facility]. 5. For questions about this culture, contact the Microbiology Laboratory at [phone]. Interpretive data was last revised on 2017. us Ricardo Rizzo MD LAB MICROBIOLOGY - GEN ERAL ORDERABLES Final Result [facility] Department [place] [address] * CT Head Sinuses WO Contrast (06/12/2019 11:36 AM CDT) Anatomical Region Laterality Modality Head and Neck N/A Computed Tomogra phy 06/12/2019 12:0 7 PM CDT Impressions 06/12/2019 1:49 PM CDT 1. 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 2. ??Large right maxillary mucous retention cyst. ??The right ostiomeatal unit is open. 3. ??Nonspecific bilateral middle ear cavity opacities and mastoid air cell opacities. There is no associated bony destruction and no visualized obstructive lesion in the nasopharynx. 4. ??Cervical lymphadenopathy Dictated by: Mary Zacarias M.D. The radiology attending physician has personally reviewed this study, and had reviewed and/or edited this written report and agrees with it. Electronically signed by: Elyse Bernardo M.D. Narrative 06/12/2019 1:49 PM CDT EXAMINATION: CT of the head and paranasal sinuses without contrast HISTORY: 68-year-old man with history of lymphoma with worsening sinus pressure and drainage. TECHNIQUE: ??Noncontrast CT of the brain was performed with images acquired from skull base to vertex. CT of the paranasal sinuses was performed using sinus protocol without contrast. Contrast Information: none COMPARISON: None available. FINDINGS: Head CT: Topogram demonstrates no lytic lesions or fractures. There is no acute intracranial hemorrhage. Ventricles are of normal size and morphology. No mass effect or midline shift is present. The gonzalez-white matter differentiation is normal. The visualized portions of the orbits are normal. ??There are nonspecific bilateral middle ear cavity opacities and mastoid air cell opacities. There is no associated bony destruction and no visualized obstructive lesion in the nasopharynx. ??No fractures are identified. Sinus CT: On the left side there is near complete opacification of the left frontal sinus, complete opacification of the left maxillary sinus and left anterior ethmoid air cells, and mild mucosal thickening of the left sphenoid sinus. ??Correspondingly the left ostiomeatal unit is occluded. On the right side there is a large right maxillary mucous retention cyst and minimal mucosal thickening of the right sphenoid and frontal sinuses. ??The right ethmoid air cells are normal. ??The right ostiomeatal unit is open. The nasal septum is at midline. ??There are no areas of osseous destruction or fat stranding to suggest aggressive infection. Incidental noted are bilateral neck lymphadenopathy Procedure Note VoElyse MD - 06/12/2019 EXAMINATION: CT of the head and paranasal sinuses without contrast HISTORY: 68-year-old man with history of lymphoma with worsening sinus pressure and drainage. TECHNIQUE: Noncontrast CT of the brain was performed with images acquired from skull base to vertex. CT of the paranasal sinuses was performed using sinus protocol without contrast. Contrast Information: none COMPARISON: None available. FINDINGS: Head CT: Topogram demonstrates no lytic lesions or fractures. [...] in the nasopharynx. No fractures are identified. Sinus CT: On the left side there is near complete opacification of the left frontal sinus, complete opacification of the left maxillary sinus and left anterior ethmoid air cells, and mild mucosal thickening of the left sphenoid sinus. Correspondingly the left ostiomeatal unit is occluded. On the right side there is a large right maxillary mucous retention cyst and minimal mucosal thickening of the right sphenoid and frontal sinuses. The right ethmoid air cells are normal. The right ostiomeatal unit is open. The nasal septum is at midline. There are no areas of osseous destruction or fat stranding to suggest aggressive infection. Incidental noted are bilateral neck lymphadenopathy IMPRESSION: 1. Left ostiomeatal unit occlusion with corresponding severe sinus disease involving the left frontal sinus, maxillary sinus, and anterior ethmoid air cells. 2. Large right maxillary mucous retention cyst. The right ostiomeatal unit is open. 3. Nonspecific bilateral middle ear cavity opacities and mastoid air cell opacities. There is no associated bony destruction and no visualized obstructive lesion in the nasopharynx. 4. Cervical lymphadenopathy Dictated by: Mary Zacarias M.D. The radiology attending physician has personally reviewed this study, and had reviewed and/or edited this written report and agrees with it. Electronically signed by: Elyse Bernardo M.D. Ricardo Rizzo MD IM CT PROCEDURES [place] l Result * (ABNORMAL) Manual Differential (06/12/2019 10:38 AM CDT) Differential Manual [facility] Cells Counted 115 [facility] Neutrophil abs 10.2(H) 1.7 - 6.5 K/cumm [facility] Imm gran abs 0.0 0.0 - 0.1 K/cumm [facility] Lymphocyte abs 1.5 0.8 - 3.3 K/cumm [facility] Monocyte abs 0.3 0.2 - 0.8 K/cumm [facility] Eosinophil abs 0.2 0.0 - 0.5 K/cumm [facility] Basophil abs 0.1 0.0 - 0.1 K/cumm [facility] Neutrophil pct 82.6 % [facility] Comment: Interpretive Data Percent cell count reference ranges are not reported, since discordance with absolute values may lead to misinterpretation of CBC data. Current Interpretive Data was last revised on 2017. Lymphocyte pct 8.7 % [facility] Comment: Interpretive Data Percent cell count reference ranges are not reported, since discordance with absolute values may lead to misinterpretation of CBC data. Current Interpretive Data was last revised on 2017. Monocyte pct 2.6 % [facility] Comment: Interpretive Data Percent cell count reference ranges are not reported, since discordance with absolute values may lead to misinterpretation of CBC data. Current Interpretive Data was last revised on 2017. Eosinophil pct 1.7 % [facility] Comment: Interpretive Data Percent cell count reference ranges are not reported, since discordance with absolute values may lead to misinterpretation of CBC data. Current Interpretive Data was last revised on 2017. Basophil pct 0.9 % [facility] Comment: Interpretive Data Percent cell count reference ranges are not reported, since discordance with absolute values may lead to misinterpretation of CBC data. Current Interpretive Data was last revised on 2017. Variant lymph pct 3.5 % [facility] RBC morphology Present [facility] Anisocytosis Slight(A) [facility] Platelet estimate Adequate [facility] Blood specimen (specimen) 06/12/2019 10:38 AM CDT 06/12/2019 10:56 AM CDT us Ricardo Rizzo MD LAB BLOOD ORDERABLES F inal Result [facility] One [facility] Department [place] [address] * (ABNORMAL) CBC without differential (06/12/2019 10:38 AM CDT) WBC 12.3(H) 3.8 - 9.9 K/cumm [facility] Hgb 12.1(L) 13.0 - 17.5 g/dL [facility] Hct 35.7(L) 38.9 - 50.3 % [facility] Plt 230 150 - 400 K/cumm [facility] MPV 11.3 9.1 - 12.3 fL [facility] RBC 3.72(L) 4.30 - 5.80 M/cumm [facility] MCV 96.0 81.3 - 96.4 fL [facility] MCH 32.5 27.1 - 33.3 pg [facility] MCHC 33.9 32.3 - 35.7 g/dL [facility] RDW CV 15.4(H) 11.1 - 14.9 % [facility] RDW SD 52.8(H) 35.7 - 48.1 fL [facility] NRBC abs 0.03(H) 0.00 - 0.01 K/cumm [facility] Blood specimen (specimen) 06/12/2019 10:38 AM CDT 06/12/2019 10:56 AM CDT Ricardo Rizzo MD LAB BLOOD ORDERABLES F inal Result Performing Organization Address [facility] Co de Phone Number [facility] Department [place] [address] * Type and screen (06/12/2019 10:38 AM CDT) ABO Rh O Positive [facility] Calin, indirect Negative [facility] Blood specimen (specimen) 06/12/2019 10:38 AM CDT 06/12/2019 10:50 AM CDT Narrative [facility] - 06/12/2019 11:58 AM CDT Has the patient had Daratumumab (Darzalex) in the past 6 months?->Unknown Ricardo Rizzo MD LAB BLOOD BANK TEST OR DERABLES Final Result Performing Organization Address [facility] Co de Phone Number [facility] [place] [address] * (ABNORMAL) aPTT (06/12/2019 10:38 AM CDT) aPTT 23(L) 25 - 37 sec [facility] Comment: Interpretive data Heparin therapeutic range: 60-90 seconds Range based on correlation with therapeutic heparin activity range of 0.3-0.7 units/ml. Current interpretive data was last revised on 2019. Blood specimen (specimen) 06/12/2019 10:38 AM CDT 06/12/2019 10:48 AM CDT Ricardo Rizzo MD LAB BLOOD ORDERABLES F inal Result Performing Organization Address City/[facility] Co de Phone Number [facility] Department [place] [address] * Protime-INR (06/12/2019 10:38 AM CDT) PT 12.0 8.6 - 13.0 sec [facility] INR 1.1 0.8 - 1.2 [facility] Comment: Interpretive data Oral anticoagulant therapeutic ranges: Venous thromboembolism prophylaxis or treatment: 2.0-3.0 CARDIOLOGY Standard range: 2.0-3.0 High-intensity range: 2.5-3.5 Refer to indication-specific guidelines for appropriate target ranges for prosthetic heart valve replacement. Current interpretive data was last revised on 2019. Blood specimen (specimen) 06/12/2019 10:38 AM CDT 06/12/2019 10:48 AM CDT Ricardo Rizzo MD LAB BLOOD ORDERABLES F inal Result Performing Organization Address [facility] de Phone Number [facility] [place] [address] * Uric acid (06/12/2019 10:38 AM CDT) Pathologist [facility] [place] Uric acid 6.2 3.0 - 8.0 mg/dL [facility] Blood specimen (specimen) 06/12/2019 10:38 AM CDT 06/12/2019 10:55 AM CDT Ricardo Rizzo MD LAB BLOOD ORDERABLES F inal Result Performing Organization Address [facility] Co de Phone Number [facility] Department [place] [address] * Lactate dehydrogenase (LD) (06/12/2019 10:38 AM CDT) Lactate dehydrogenase (LDH) See Comment 100 - 250 Units/L [facility] Comment:Credited Hemolyzed Blood specimen (specimen) 06/12/2019 10:38 AM CDT 06/12/2019 10:55 AM CDT Ricardo Rizzo MD LAB BLOOD ORDERABLES F inal Result Performing Organization Address [facility] Co de Phone Number [facility] [place] [address] * Phosphorus (06/12/2019 10:38 AM CDT) Pathologist [facility] [place] Phosphorus, pl 3.7 2.3 - 4.5 mg/dL [facility] Blood specimen (specimen) 06/12/2019 10:38 AM CDT 06/12/2019 10:55 AM CDT Ricardo Rizzo MD LAB BLOOD ORDERABLES F inal Result Performing Organization Address [facility] de Phone Number [facility] [place] [address] * Magnesium (06/12/2019 10:38 AM CDT) [facility] Magnesium 2.0 1.4 - 2.5 mg/dL [facility] Blood specimen (specimen) 06/12/2019 10:38 AM CDT 06/12/2019 10:55 AM CDT Ricardo Rizzo MD LAB BLOOD ORDERABLES F inal Result Performing Organization Address [facility] Co de Phone Number [facility] [place] [address] * (ABNORMAL) Comprehensive metabolic panel (06/12/2019 10:38 AM CDT) Pathologist [facility] [place] Sodium 138 135 - 145 mmol/L [facility] Potassium, pl 5.3(H) 3.3 - 4.9 mmol/L [facility] Comment:Hemolyzed; Potassium value may be falsely elevated by as much as 0.6-1.0 mmol/L. Suggest redraw and reanalysis. Chloride 103 97 - 110 mmol/L [facility] CO2 26 22 - 32 mmol/L [facility] Anion gap 9 2 - 15 mmol/L [facility] BUN 26(H) 8 - 25 mg/dL [facility] Creatinine 0.82 0.80 - 1.30 mg/dL [facility] Glucose 208(H) 70 - 199 mg/dL [facility] Comment: Interpretive Data Fasting [...] 2017. Calcium 9.0 8.5 - 10.3 mg/dL [facility] Bilirubin, total 0.2 0.1 - 1.2 mg/dL [facility] Protein, pl 6.4(L) 6.5 - 8.5 g/dL [facility] Albumin 3.7 3.5 - 5.0 g/dL [facility] Alk phos 97 40 - 130 Units/L [facility] ALT 50 7 - 55 Units/L [facility] AST 46 10 - 50 Units/L [facility] Comment:Hemolyzed; result ma y be falsely elevated Blood specimen (specimen) 06/12/2019 10:38 AM CDT 06/12/2019 10:55 AM CDT us Ricardo Rizzo MD LAB BLOOD ORDERABLES F inal Result [facility] One [facility] Department [place] [address] documented in this encounter Visit Diagnoses Diagnosis Acute recurrent sinusitis- Primary CLL (chronic lymphocytic leukemia) (HCC) Chronic lymphoid leukemia, without mention of having achieved remission CLL (chronic lymphocytic leukemia) (HCC) Chronic lymphoid leukemia, without mention of having achieved remission Anxiety and depression Hypogammaglobulinemia (HCC) Unspecified hypogammaglobulinemia Mastoiditis of both sides documented in this encounter Administered Medications Inactive Administered Medications - up to 3 most recent administrations Medication Order MAR Action Action Date Dose Rate Site acetaminophen (TYLENOL) tablet 650 mg 650 mg, oral, Every 4 hours PRN, blood product administration, Starting on Sat06/12/19 at 0947, Indications: Prophylaxis Transfusion ReactionIndications:Prophylaxis Transfusion Reaction Given 06/13/2019 9:18 PM CDT 325 mg acetaminophen (TYLENOL) tablet 650 mg 650 mg, oral, Every 6 hours PRN, fever, Starting on Sat06/12/19 at 0947, Indications: FeverIndications:Fever acyclovir (ZOVIRAX) tablet 400 mg 400 mg, oral, 2 times daily, First dose on 06/13/19 at 0900, Indications: Prophylaxis, MedicalIndications:Prophylaxis, Medical Given 06/15/2019 8:34 AM CDT 400 mg Given 06/14/2019 8:00 PM CDT 400 mg Given 06/14/2019 8:02 AM CDT 400 mg ftrvvhtxne-kstpkkbhxovzm-oddpwcyk (ESGIC) 50-325-40 mg per tablet 1 tablet 1 tablet, oral, 4 times daily PRN, headaches, Starting on Sat06/12/19 at 1304 Given 06/15/2019 11:35 AM CDT 1 tablet Given 06/14/2019 1:32 PM CDT 1 tablet Given 06/14/2019 8:02 AM CDT 1 tablet camphor-menthoL (SARNA) 0.5-0.5 % lotion topical, Every 2 hours PRN, itching, Starting on Sat06/12/19 at 0947, Apply to affected area: other, Indications: Pruritus of SkinIndications:Pruritus of Skin cetirizine (ZyrTEC) tablet 10 mg 10 mg, oral, Daily, First dose on 06/13/19 at 0900 Given 06/15/2019 8:34 AM CDT 10 mg Given 06/14/2019 8:02 AM CDT 10 mg Given 06/13/2019 8:51 AM CDT 10 mg ciprofloxacin-fluocinolone (OTOVEL) 0.3-0.025 % otic solution 0.25 mL 0.25 mL, each ear, 4 times daily, First dose on Sat06/13/19 at 1200, Administer into ear canal. Gently pump tragus 4 times to facilitate penetration into the middle ear. Patients should remain on side for at least 1 minute to allow penetration of solution. Store unused vials in foil pouch. Protect from light. Given 06/15/2019 11:35 AM CDT 0.25 mL Given 06/15/2019 8:33 AM CDT 0.25 mL Given 06/14/2019 8:01 PM CDT 0.25 mL diphenhydrAMINE (BENADRYL) capsule 50 mg 50 mg, oral, Once, On Sat06/13/19 at 2015, For 1 dose Given 06/13/2019 9:16 PM CDT 50 mg docusate sodium (COLACE) capsule 100 mg 100 mg, oral, 2 times daily, First dose on Sat06/12/19 at 1330, Indications: constipationIndications:constipation Given 06/15/2019 8:34 AM CDT 100 mg Given 06/14/2019 8:00 PM CDT 100 mg Given 06/14/2019 8:02 AM CDT 100 mg enoxaparin (LOVENOX) syringe 40 mg 40 mg, subcutaneous, Daily (for enoxaparin), First dose on Sat06/12/19 at 2100, Indications: Deep Vein Thrombosis PreventionIndications:Deep Vein Thrombosis Prevention Given 06/14/2019 8:00 PM CDT 40 mg Right Lower Abdomen Given 06/13/2019 8:17 PM CDT 40 mg Ri ght Lower Abdomen Given 06/12/2019 8:55 PM CDT 40 mg Le ft Upper Abdomen escitalopram (LEXAPRO) tablet 10 mg 10 mg, oral, Daily, First dose on Sat06/13/19 at 0900 Given 06/15/2019 8:34 AM CDT 10 mg Given 06/14/2019 8:02 AM CDT 10 mg Given 06/13/2019 8:51 AM CDT 10 mg famotidine (PEPCID) tablet 20 mg 20 mg, oral, Daily, First dose on Sat06/13/19 at 0900 Given 06/15/2019 8:34 AM CDT 20 mg Given 06/14/2019 8:02 AM CDT 20 mg Given 06/13/2019 8:51 AM CDT 20 mg fluticasone propionate (FLONASE) 50 mcg/actuation nasal spray 2 spray 2 spray, each nostril, Daily, First dose on 06/13/19 at 0900 Given 06/13/2019 8:54 AM CDT 2 sprays immune globulin (GAMUNEX-C,GAMMAKED) 10 % infusion 35 g 35 g (rounded from 34.72 g = 400 mg/kg ? 86.8 kg [place] weight), intravenous, Once, On 06/13/19 at 1815, For 1 dose, Administer over: 1 mg/kg/min x 30 minutes, then 2 mg/kg/min x 30 minutes, then 4 mg/kg/min x 30 minutes, then 6 mg/kg/min x 30 minutes, then 8 mg/kg/min until infusion complete. If initial titration was well tolerated, subsequent infusions may be titrated every 15 minutes., Indications: Hypogammaglobulinemia with Recurrent Bacterial Infection, with CLLIndications:Hypogammaglobulinem ia with Recurrent Bacterial Infection,with CLL New Bag 06/13/2019 10:13 PM CDT 35 g magnesium sulfate 4 g/100 mL in water (premix) 4 g 4 g, intravenous, Administer over 90 Minutes, Every 4 hours PRN, magnesium replacement, Starting on Sat06/12/19 at 0950, For magnesium level of 1.2-1.5 mg/dL, Indications: hypomagnesemiaIndications:hypomagn esemia magnesium sulfate 6 g in sodium chloride 0.9% 250 mL IVPB 6 g, intravenous, at 131 mL/hr, Administer over 120 Minutes, Every 4 hours PRN, magnesium replacement, Starting on Sat06/12/19 at 0950, For magnesium level less than 1.2 mg/dL and call/notify provider., Indications: hypomagnesemiaIndications:hypomagn esemia mupirocin (BACTROBAN) 2 % nasal ointment each nostril, 3 times daily, First dose on Sat06/12/19 at 1730, Mix Neilmed packet with warm sterile water and add in mupirocin ointment to dissolve into a solution. Rinse half of bottle in to each nostril. Perform bid to tid as tolerated. Given 06/15/2019 8:35 AM CDT 1 application (deactivated) Given 06/14/2019 8:02 PM CDT 1 application (deactivat ed) Given 06/14/2019 5:18 PM CDT 1 application (deactivat ed) oxyCODONE-acetaminophen (PERCOCET) 5-325 mg per tablet 1 tablet 1 tablet, oral, Every 4 hours PRN, 1st line for pain, Starting on Sat06/12/19 at 1310 Given 06/15/2019 7:25 AM CDT 1 tablet Given 06/15/2019 2:40 AM CDT 1 tablet Given 06/14/2019 8:08 PM CDT 1 tablet oxymetazoline (AFRIN) 0.05 % nasal spray 1 spray 1 spray, each nostril, 3 times daily, First dose on Sat06/12/19 at 1730, For 3 days Given 06/15/2019 8:34 AM CDT 1 sp ray Given 06/14/2019 8:02 PM CDT 1 spray Given 06/14/2019 5:19 PM CDT 1 spray piperacillin-tazobactam (ZOSYN) 3.375 gram/65 mL in sodium chloride 0.9% (premix) 3.375 g 3.375 g, intravenous, at 130 mL/hr, Administer over 30 Minutes, Every 6 hours scheduled, First dose on Sat06/12/19 at 1315, Indications: Acute sinusitisIndications:Acute sinusitis New Bag 06/15/2019 11:55 AM CDT 3.375 g 130 mL/hr New Bag 06/15/2019 6:04 AM CDT 3.375 g 130 mL/hr New Bag 06/15/2019 12:09 AM CDT 3.375 g 130 mL/hr polyethylene glycol (MIRALAX) packet 17 g 17 g, oral, Daily PRN, constipation, Starting on Sat06/12/19 at 1249, Indications: constipationIndications:constipation Given 06/15/2019 8:34 AM CDT 17 g Given 06/14/2019 8:04 AM CDT 17 g Given 06/12/2019 1:56 PM CDT 17 g potassium chloride 40 mEq/520 mL in sodium chloride 0.9% (premix) 40 mEq 40 mEq, intravenous, at 130 mL/hr, Administer over 4 Hours, Every 4 hours PRN, potassium replacement, Starting on Sat06/12/19 at 0950, 40 mEq X1 dose for potassium less than 2.6 mmol/L, call prescriber for additional orders; 40 mEq X2 doses for potassium 2.6-2.9 mmol/L, stat potassium level after 2nd dose; 40 mEq X2 doses for potassium 3-3.1 mmol/L; 40 mEq X1 dose for potassium 3.2-3.5 mmol/L (may use oral if tolerated)., Indications: hypokalemiaIndications:hypokalemia potassium chloride ER (KLOR-CON) extended release tablet 40 mEq 40 mEq, oral, Every 4 hours PRN, potassium replacement, Starting on Sat06/12/19 at 0950, For potassium 3.2-3.5 mmol/L, give 40 mEq X1 dose (may use IV if oral not tolerated). Do not crush, chew, cut, dissolve, open or otherwise manipulate tablet/capsule., Indications: hypokalemiaIndications:hypokalemia sodium chloride 0.9% flush 0.5-20 mL 0.5-20 mL, intra-catheter, Every 8 hours scheduled, First dose on Sat06/12/19 at 1400, Flush volume based on line type and size. Given 06/15/2019 6:04 AM CDT 10 mL Given 06/14/2019 8:02 PM CDT 10 mL Given 06/14/2019 1:32 PM CDT 10 mL sodium chloride 0.9% flush 0.5-20 mL 0.5-20 mL, intra-catheter, As needed, line care, Starting on Sat06/12/19 at 0950, Flush volume based on line type and size. Flush before and after each use. sodium chloride 0.9% IVPB 0-250 mL 0-250 mL, intravenous, As needed, flush tubing for blood product administration, Starting on Sat06/12/19 at 0947, Prime blood tubing and administer amount needed to clear line (usually 50-100 mL) after transfusion complete. New Bag 06/12/2019 1:55 PM CDT 60 mL sodium chloride-sodium bicarbonate (NEILMED SINUS RINSE, AYR) nasal wash kit 1 packet 1 packet, each nostril, 3 times daily, First dose on Sat06/12/19 at 1730, Mix packet with warm sterile water and add in mupirocin ointment to dissolve into a solution. Rinse half of bottle in to each nostril. Perform bid to tid as tolerated. Given 06/15/2019 8:33 AM CDT 1 packet Given 06/14/2019 8:01 PM CDT 1 packet Given 06/14/2019 5:17 PM CDT 1 packet documented in this encounter Discontinued Medications Medication Sig Discontinue Reason Start Date End Da te al & mag hydroxide simethicone-diphenhydr ghmqh-insftmyms-doigxz in (MAGIC MOUTHWASH) suspension 3-1-4-1Indications:Devorah motherapy-Induced Mucositis Swish and swallow 10 mL every 4 (four) hours as needed (mouth pain) Therapy completed 08/18/2018 06/12/2019 IBUPROFEN ORALIndications:pt unsure of dose Take by mouth as needed Therapy completed 06/12/2019 ibrutinib (Imbruvica) 420 mg tabletIndications:CLL (chronic lymphocytic leukemia) (HCC) Take 1 tablet (420 mg total) by mouth daily Duplicate order 03/17/2019 06/12/2019 polyethylene glycol (GoLYTELY) 236-22.74-6.74 -5.86 gram solutionIndications:Blade wel Evacuation TAKE DIRECTED. Therapy completed 01/01/2017 06/12/2019 HYDROcodone-acetaminop hen (NORCO) 5-325 mg per tabletIndications:Pain Take 1 tablet by mouth every 6 (six) hours as needed for pain Duplicate order 10/09/2017 06/12/2019 doxycycline 100 mg tablet Take 1 tablet by mouth 2 (two) times a day Therapy completed 05/18/2019 06/12/2019 cyanocobalamin, vitamin B-12, (VITAMIN B-12 ORAL)Indications:CLL (chronic lymphocytic leukemia) (HCC) Take 1,000 mcg by mouth daily Therapy completed 06/12/2019 ciprofloxacin-fluocino lone (OTOVEL) otic solution Administer 0.25 mL into each ear 4 (four) times a day for 14 days Stop Taking at Discharge 06/15/2019 06/15/2019 IMBRUVICA 420 mg tabletIndications:CLL (chronic lymphocytic leukemia) (HCC) TAKE 1 TABLET (420MG) BY MOUTH ONCE DAILY. Stop Taking at Discharge 03/18/2019 06/15/2019 clindamycin (CLEOCIN) 300 mg capsule Take 1 capsule by mouth 3 (three) times a day Stop Taking at Discharge 06/04/2019 06/15/2019 ofloxacin (FLOXIN) 0.3 % otic solution Administer 10 drops into each ear daily Stop Taking at Discharge 06/15/2019 documented as of this encounter Historical Medications * This list may reflect changes made after this encounter. ALPRAZolam (XANAX) 0.25 mg tablet Take 0.5-1 tablets (0.125-0.25 mg total) by mouth 3 (three) times a day as needed for anxiety 05/18/2019 cetirizine (ZyrTEC) 10 mg tablet Take 10 mg by mouth daily 0 predniSONE (DELTASONE) 50 mg tablet Take 50 mg by mouth daily 0 ofloxacin (FLOXIN) 0.3 % otic solution Administer 10 drops into each ear daily 0 oxyCODONE-acetam inophen (PERCOCET) 7.5-325 mg per tablet Take 1 tablet by mouth every 6 (six) hours as needed for pain 06/06/2019 0 escitalopram (LEXAPRO) 10 mg tablet Take 1 tablet by mouth daily 05/18/2019 0 doxycycline 100 mg tablet Take 1 tablet by mouth 2 (two) times a day 05/18/2019 0 clindamycin (CLEOCIN) 300 mg capsule Take 1 capsule by mouth 3 (three) times a day 06/04/2019 0 butalbital-aceta minophen-caffein e (FIORICET) 50-300-40 mg per capsule Take 1 capsule by mouth every 6 (six) hours as needed for headaches 06/06/2019 0 added in this encounter Active and Recently Administered Medications Times are shown in CDT. Scheduled Medication Order 06/13/2019 06/14/2019 06/15/2019 acyclovir (ZOVIRAX) tablet 400 mg 400 mg, oral, 2 times daily, First dose on 06/13/19 at 0900, Indications: Prophylaxis, Medical 0851 (Given - Provider: Nito Mari RN)2015 (Given - Provider: Prudencio Velasquez RN) 0802 (Given - Provider: Nito Mari RN)1999 (Given - Provider: Prudencio Velasquez RN) 0834 (Given - Provider: Nito Mari RN) cetirizine (ZyrTEC) tablet 10 mg 10 mg, oral, Daily, First dose on 06/13/19 at 0900 0851 (Given - Provider: Nito Mari RN) 08 (Given - Provider: Nito Mari RN) 0834 (Given - Provider: Nito Mari RN) ciprofloxacin-fluocinolone (OTOVEL) 0.3-0.025 % otic solution 0.25 mL 0.25 mL, each ear, 4 times daily, First dose on 06/13/19 at 1200, Administer into ear canal. Gently pump tragus 4 times to facilitate penetration into the middle ear. Patients should remain on side for at least 1 minute to allow penetration of solution. Store unused vials in foil pouch. Protect from light. 1637 (Not Given - Provider: Nito Mari RN - Reason: Medication not available)1638 (Given - Provider: Nito Mari RN)2016 (Given - Provider: Prudencio Velasquez RN) 0804 (Given - Provider: Nito Mari RN)1142 (Given - Provider: Nito Mari RN)1718 (Given - Provider: Nito Mari RN)2000 (Given - Provider: Prudencio Velasquez RN) 0833 (Given - Provider: Nito Mari RN)1135 (Given - Provider: Nito Mari RN) diphenhydrAMINE (BENADRYL) capsule 50 mg (COMPLETED) 50 mg, oral, Once, On 06/13/19 at 2015, For 1 dose 6 (Given - Provider: Prudencio Velasquez RN - Comment: had to wait for pharmacy to make immune globulin before giving to patient) docusate sodium (COLACE) capsule 100 mg 100 mg, oral, 2 times daily, First dose on Sat06/12/19 at 1330, Indications: constipation 0851 (Given - Provider: Nito Mari RN)2016 (Given - Provider: Prudencio Velasquez RN) 08 (Given - Provider: Nito Mari RN)1999 (Given - Provider: Prudencio Velasquez RN) 0834 (Given - Provider: Nito Mari RN) enoxaparin (LOVENOX) syringe 40 mg 40 mg, subcutaneous, Daily (for enoxaparin), First dose on Sat06/12/19 at 2100, Indications: Deep Vein Thrombosis Prevention 2016 (Given - Provider: Prudencio Velasquez RN) 1999 (Given - Provider: Prudencio Velasquez RN) escitalopram (LEXAPRO) tablet 10 mg 10 mg, oral, Daily, First dose on 06/13/19 at 0900 0851 (Given - Provider: Nito Mari RN) 08 (Given - Provider: Nito Mari RN) 0834 (Given - Provider: Nito Mari RN) famotidine (PEPCID) tablet 20 mg 20 mg, oral, Daily, First dose on 06/13/19 at 0900 0851 (Given - Provider: Nito Mari RN) 08 (Given - Provider: Nito Mair RN) 0834 (Given - Provider: Nito Mari RN) fluticasone propionate (FLONASE) 50 mcg/actuation nasal spray 2 spray 2 spray, each nostril, Daily, First dose on 06/13/19 at 0900 0854 (Given - Provider: Nito Mari RN) 0803 (Not Given - Provider: Nito Mari RN - Reason: Patient/family refused) 0834 (Not Given - Provider: Nito Mari RN - Reason: Patient/family refused) immune globulin (GAMUNEX-C,GAMMAKED) 10 % infusion 35 g (COMPLETED) 35 g (rounded from 34.72 g = 400 mg/kg ? 86.8 kg [place] weight), intravenous, Once, On 06/13/19 at 1815, For 1 dose, Administer over: 1 mg/kg/min x 30 minutes, then 2 mg/kg/min x 30 minutes, then 4 mg/kg/min x 30 minutes, then 6 mg/kg/min x 30 minutes, then 8 mg/kg/min until infusion complete. If initial titration was well tolerated, subsequent infusions may be titrated every 15 minutes., Indications: Hypogammaglobulinemia with Recurrent Bacterial Infection, with CLL 2213 (New Bag - Provider: Prudencio Velasquez RN) 0027 (Stopped - Provider: Prudencio Velasquez RN) mupirocin (BACTROBAN) 2 % nasal ointment each nostril, 3 times daily, First dose on Sat06/12/19 at 1730, Mix Neilmed packet with warm sterile water and add in mupirocin ointment to dissolve into a solution. Rinse half of bottle in to each nostril. Perform bid to tid as tolerated. 1135 (Not Given - Provider: Nito Mari RN - Reason: Medication not available)1639 (Given - Provider: Nito Mari RN)2017 (Given - Provider: Prudencio Velasquez RN) 0804 (Given - Provider: Nito Mari RN)1718 (Given - Provider: Nito Mari RN)2001 (Given - Provider: Prudencio Velasquez RN) 0835 (Given - Provider: Nito Mari RN) oxymetazoline (AFRIN) 0.05 % nasal spray 1 spray (COMPLETED) 1 spray, each nostril, 3 times daily, First dose on Sat06/12/19 at 1730, For 3 days 0852 (Given - Provider: Nito Mari RN)1637 (Given - Provider: Nito Mari RN)2018 (Given - Provider: Prudencio Velasquez RN) 1141 (Given - Provider: Nito Mari RN)1719 (Given - Provider: Nito Mari RN)2001 (Given - Provider: Prudencio Velasquez RN) 0834 (Given - Provider: Nito Mari RN) piperacillin-tazobactam (ZOSYN) 3.375 gram/65 mL in sodium chloride 0.9% (premix) 3.375 g 3.375 g, intravenous, at 130 mL/hr, Administer over 30 Minutes, Every 6 hours scheduled, First dose on Sat06/12/19 at 1315, Indications: Acute sinusitis 0229 (Stopped - Provider: Prudencio Velasquez RN)0519 (New Bag - Provider: Prudencio Velasquez RN)0550 (Stopped - Provider: Nito Mari RN)1245 (New Bag - Provider: Nito Mari RN)1315 (Stopped - Provider: Nito Mari RN)1750 (New Bag - Provider: Nito Mari RN)1825 (Stopped - Provider: Nito Mari RN) 0044 (New Bag - Provider: Prudencio Velasquez RN)0115 (Stopped - Provider: Prudencio Velasquez RN)0522 (New Bag - Provider: Prudencio Velasquez RN)0555 (Stopped - Provider: Nito Mari RN)1140 (New Bag - Provider: Nito Mari RN)1210 (Stopped - Provider: Nito Mari RN)1717 (New Bag - Provider: Nito Mari RN)1750 (Stopped - Provider: Nito Mari RN) 0009 (New Bag - Provider: Prudencio Velasquez RN)0040 (Stopped - Provider: Prudencio Velasquez RN)0604 (New Bag - Provider: Prudencio Velasquez RN)0635 (Stopped - Provider: Nito Mari RN)1155 (New Bag - Provider: Nito Mari RN)1225 (Due: Stopped - Provider: Nito Mari RN) sodium chloride 0.9% flush 0.5-20 mL 0.5-20 mL, intra-catheter, Every 8 hours scheduled, First dose on Sat06/12/19 at 1400, Flush volume based on line type and size. 0519 (Given - Provider: Prudencio Velasquez RN)1637 (Given - Provider: Nito Mari RN)2019 (Given - Provider: Prudencio Velasquez RN) 0523 (Given - Provider: Prudencio Velasquez, ALICIA)1332 (Given - Provider: Nito Mari RN)2002 (Given - Provider: Prudencio Velasquez RN) 0604 (Given - Provider: Prudencio Velasquez RN)1400 (Due) sodium chloride-sodium bicarbonate (NEILMED SINUS RINSE, AYR) nasal wash kit 1 packet 1 packet, each nostril, 3 times daily, First dose on Sat06/12/19 at 1730, Mix packet with warm sterile water and add in mupirocin ointment to dissolve into a solution. Rinse half of bottle in to each nostril. Perform bid to tid as tolerated. 0854 (Given - Provider: Nito Mari RN)1639 (Given - Provider: Nito Mari RN)2019 (Given - Provider: Prudencio Velasquez RN) 0803 (Given - Provider: Nito Mari RN)1717 (Given - Provider: Nito Mari RN)2000 (Given - Provider: Prudencio Velasquez RN) 0833 (Given - Provider: Nito Mari RN) PRN Medication Order 06/13/2019 06/14/2019 06/15/2019 acetaminophen (TYLENOL) tablet 650 mg 650 mg, oral, Every 4 hours PRN, blood product administration, Starting on Sat06/12/19 at 0947, Indications: Prophylaxis Transfusion Reaction 2117 (Given - Provider: Prudencio Velasquez RN - Comment: only gave pt 325 because patient received 325 with a previous medication @ 2036) acetaminophen (TYLENOL) tablet 650 mg 650 mg, oral, Every 6 hours PRN, fever, Starting on Sat06/12/19 at 0947, Indications: Fever ALPRAZolam (XANAX) tablet 0.5 mg 0.5 mg, oral, 3 times daily PRN, anxiety, Starting on Sat06/12/19 at 1304 butalbital-acetaminophen- caffeine (ESGIC) 50-325-40 mg per tablet 1 tablet 1 tablet, oral, 4 times daily PRN, headaches, Starting on Sat06/12/19 at 1304 1250 (Given - Provider: Nito Mari RN)1749 (Given - Provider: Nito Mari RN)203 (Given - Provider: Prudencio Velasquez RN) 0802 (Given - Provider: Nito Mari RN)1332 (Given - Provider: Nito Mari RN) 1135 (Given - Provider: Nito Mari RN) camphor-menthoL (SARNA) 0.5-0.5 % lotion topical, Every 2 hours PRN, itching, Starting on Sat06/12/19 at 0947, Apply to affected area: other, Indications: Pruritus of Skin magnesium sulfate 4 g/100 mL in water (premix) 4 g 4 g, intravenous, Administer over 90 Minutes, Every 4 hours PRN, magnesium replacement, Starting on Sat06/12/19 at 0950, For magnesium level of 1.2-1.5 mg/dL, Indications: hypomagnesemia magnesium sulfate 6 g in sodium chloride 0.9% 250 mL IVPB 6 g, intravenous, at 131 mL/hr, Administer over 120 Minutes, Every 4 hours PRN, magnesium replacement, Starting on Sat06/12/19 at 0950, For magnesium level less than 1.2 mg/dL and call/notify provider., Indications: hypomagnesemia oxyCODONE-acetaminophen (PERCOCET) 5-325 mg per tablet 1 tablet 1 tablet, oral, Every 4 hours PRN, 1st line for pain, Starting on Sat06/12/19 at 1310 0228 (Given - Provider: Prudencio Velasquez RN)0532 (Given - Provider: Prudencio Velasquez RN)0851 (Given - Provider: Nito Mari RN)1245 (Given - Provider: Nito Mari RN)1749 (Given - Provider: Nito Mari RN) 0020 (Given - Provider: Prudencio Velasquez RN)2008 (Given - Provider: Prudencio Velasquez RN) 0240 (Given - Provider: Prudencio Velasquez RN)0725 (Given - Provider: Prudencio Velasquez RN) polyethylene glycol (MIRALAX) packet 17 g 17 g, oral, Daily PRN, constipation, Starting on Sat06/12/19 at 1249, Indications: constipation 1752 (Not Given - Provider: Nito Mari RN - Reason: Patient/family refused) 0804 (Given - Provider: Nito Mari RN) 0834 (Given - Provider: Nito Mari RN) potassium chloride 40 mEq/520 mL in sodium chloride 0.9% (premix) 40 mEq 40 mEq, intravenous, at 130 mL/hr, Administer over 4 Hours, Every 4 hours PRN, potassium replacement, Starting on Sat06/12/19 at 0950, 40 mEq X1 dose for potassium less than 2.6 mmol/L, call prescriber for additional orders; 40 mEq X2 doses for potassium 2.6-2.9 mmol/L, stat potassium level after 2nd dose; 40 mEq X2 doses for potassium 3-3.1 mmol/L; 40 mEq X1 dose for potassium 3.2-3.5 mmol/L (may use oral if tolerated)., Indications: hypokalemia potassium chloride ER (KLOR-CON) extended release tablet 40 mEq 40 mEq, oral, Every 4 hours PRN, potassium replacement, Starting on Sat06/12/19 at 0950, For potassium 3.2-3.5 mmol/L, give 40 mEq X1 dose (may use IV if oral not tolerated). Do not crush, chew, cut, dissolve, open or otherwise manipulate tablet/capsule., Indications: hypokalemia sodium chloride 0.9% flush 0.5-20 mL 0.5-20 mL, intra-catheter, As needed, line care, Starting on Sat06/12/19 at 0950, Flush volume based on line type and size. Flush before and after each use. sodium chloride 0.9% IVPB 0-250 mL 0-250 mL, intravenous, As needed, flush tubing for blood product administration, Starting on Sat06/12/19 at 0947, Prime blood tubing and administer amount needed to clear line (usually 50-100 mL) after transfusion complete. documented in this encounter Orders Medications Ordered That Juan ht Not Have Been Administered Count Last Ordered Date First Ordered Date acetaminophen (TYLENOL) tablet 650 mg 12/2019 ALPRAZolam (XANAX) tablet 0.5 mg 06/12/19 camphor-menthoL (SARNA) 0.5-0.5 % lotion 06/12/2019 HYDROmorphone (DILAUDID) injection 0.5 mg 06/12/2019 magnesium sulfate 4 g/100 mL in water (premix) 4 g 06/12/2019 magnesium sulfate 6 g in sod ium chloride 0.9% 250 mL IVPB 06/12/2019 oxyCODONE (ROXICODONE) tablet 5 mg 2019 potassium chloride 40 mEq/52 0 mL in sodium chloride 0.9% (premix) 40 mEq 06/12/2019 potassium chloride ER (KLOR- CON) extended release tablet 40 mEq 06/12/2019 predniSONE (DELTASONE) tablet 50 mg 06/11 sodium chloride 0.9% flush 0.5-20 mL 06/02 Diet Count Last Ordered Date First Orde red Date ADULT DISCHARGE DIET 1 06/15/2019 Nursing Count Last Ordered Date First Orde red Date DISCHARGE ACTIVITY 1 06/15/2019 DISCHARGE CALL PROVIDER 4 06/15/2019 DISCHARGE INSTRUCTIONS 1 06/15/2019 MEASURE HEIGHT AND LENGTH 1 06/12/2019 WEIGH PATIENT 1 06/12/2019 Consult Count Last Ordered Date First Orde red Date IP CONSULT TO ENT 1 06/12/2019 IP CONSULT TO NUTRITION SERVICES 1 06/12/19 20 Isolation Count Last Ordered Date First Orde red Date INITIATE CONTACT ISOLATION 1 06/12/2019 documented in this encounter Additional Health Concerns Infection Onset Date Last Indicated Resolved Time C. difficile Comment:Backloaded December 21, 2010 09/21/2010 09/21/2010 documented as of this encounter Care Teams [employer]ter Relationship Specialty Start Date End Date Lenin Ventura MD [address] [id number] PCP - General 07/06/16 Lenin Ventura MD [address] [address] 07/06/16 documented as of this encounter
--- OUTSIDE RECORDS SUMMARY | 2024-02-22 08:33 | XMS_ITS | Encounter Summary ---
Author Organization [facility] Address [address] [place] [address] Phone Care Team Providers Care Fuel House Attendant Name Role Phone Lenin Ventura MD Primary Care Provider [phone] Lenin Ventura MD Unavailable Reason for Visit * Oncology (Routine) - Authorized Specialty Diagnoses / Procedures Referred By Contac t Referred To Contact Medical Oncology / Oncology Diagnoses Appt Comment: LAB Procedures RETURN Lenin Ventura MD [address] [facility] [address] [place] [address] Phone: tel: fax: Burt Dos Santos MD PhD [address] [facility] [place] [address] DIV IM BONE MARROW TRANSPLANT, 5TH, [address] [place] [address] Phone: tel: fax: Referral ID Status Reason Start Date Expiration Date V isits Requested Visits Authorized [id number] Authorized 08/02/2017 03/12/2024 99 99 Encounter Details Date Type Department Care Team (Late st Contact Info) Description 10/09/2018 10:15 AM CDT Office Visit [facility] Oncology [address] [facility] 7th [place] [address] [place] [id number] Burt Dos Santos MD PhD [address] DIV IM BONE MARROW TRANSPLANT, [address] [place] [address] CLL (chronic lymphocytic leukemia) (CMS/HCC) (Primary Dx); Lymphoma, small lymphocytic (CMS/HCC) Social History Tobacco Use Types Packs/Day Years Used Date Smoking Tobacco: Former Smokeless Tobacco: Never Sex and Gender Information Value Date Recorded Sex Assigned at Not on file Legal Sex Male 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 Gender Identity Not on file Sexual Orientation Not on file documented as of this encounter Last Filed Vital Signs Vital Sign Reading Time Taken Comments Blood Pressure 118/73 10/09/2018 9:46 AM CDT Pulse 70 10/09/2018 9:46 AM CDT Temperature 36.8 ??C (98.2 ??F) 10/09/2018 9:46 AM CD T Respiratory Rate 18 10/09/2018 9:46 AM CDT Oxygen Saturation 97% 10/09/2018 9:46 AM CDT Inhaled Oxygen Concentration - - Weight 133.4 kg (294 lb) 10/09/2018 9:46 AM CDT Height - - Body Mass Index 36.03 04/10/2018 9:49 AM LOOM CONTROL CHAIN BUILDER documented in this encounter Ordered Prescriptions Prescription Sig Dispense Quantity Refills Last Filled Start Date End Date acyclovir (ZOVIRAX) 200 mg capsuleIndications :Prophylaxis, Medical Take 2 capsules (400 mg total) by mouth 2 (two) times a day 60 capsule 3 10/09/2018 9 documented in this encounter Progress Notes * Magali Stapleton HEALTH SERVICE WORKER - 10/09/2018 10:15 AM CDT BMT Progress Note Lymphoma, small [...] q2mo x 4; on clinical trial [facility] [id number] --> stable disease on CT; marrow 30-40% invovled 09/01/15 05/29/2018 - Targeted Therapy Imbruvica 420mg daily Subjective Interval History Mr. Abdullahi returns for scheduled follow up. He is reporting several side effects from the ibrutinib. He has a lot of sinus infections and pressure. He has had this problem in the past. He denies fevers. He has bouts of diarrhea, not everyday. He notices easy bruising and bleeding. He has more fatigue, this may be due to the sinus infections. Outpatient Encounter Medications as of 10/09/2018: ? ? al & mag hydroxide rrmrqbkasti-domcnkzpdsuilyb-vlcsgdlji-nystatin (MAGIC MOUTHWASH) suspension 1-1-1-1, Swish and swallow 10 mL every 4 (four) hours as needed (mouth pain), Disp: 240 mL, Rfl:1 ??? cyanocobalamin, vitamin B-12, (VITAMIN B-12 ORAL), Take by mouth daily, Disp: , Rfl: ??? fluticasone (FLONASE) 50 mcg/actuation nasal spray, daily., Disp: , Rfl: ??? IBUPROFEN ORAL, Take by mouth as needed, Disp: , Rfl: ??? IMBRUVICA 420 mg tablet, TAKE ONE TABLET BY MOUTH DAILY, Disp: 28 tablet, Rfl: 2 ??? ranitidine (ZANTAC) 150 mg capsule, pt states prn, Disp: , Rfl: ??? acyclovir (ZOVIRAX) 200 mg capsule, Take 2 capsules (400 mg total) by mouth 2 (two) times a day, Disp: 60 capsule, Rfl: 3 ??? HYDROcodone-acetaminophen (NORCO) 5-325 mg per tablet, , Disp: , Rfl: 0 ??? polyethylene glycol (GoLYTELY) 236-22.74-6.74 -5.86 gram solution, TAKE DIRECTED., Disp: , Rfl: ??? [DISCONTINUED] ibrutinib (IMBRUVICA) 420 mg tablet, Take 1 tablet (420 mg total) by mouth daily, Disp: 28 tablet, Rfl: 3 Facility-Administered Encounter Medications as of 10/09/2018: ??? [COMPLETED] ioversol (OPTIRAY 350) syringe syringe 100 mL, 100 mL, intravenous, Once in imaging, Burt Dos Santos MD PhD, 100 mL at 10/09/18 09 ??? [COMPLETED] ioversol (OPTIRAY 350) syringe syringe 75 mL, 75 mL, intravenous, Once in imaging, Burt Dos Santos MD PhD, 75 mL at 10/09/18912 Performance Status: 1 Objective Vitals: BP: 118/73 Temp: 36.8 ??C (98.2 ??F) Temp src: Oral Pulse: 70 Resp: 18 SpO2: 97 % Weight: 133.4 kg (294 lb) Physical exam: In no acute distress HEENT:schlera white Lungs:CTA tawny Heart:RRR Abdomen:soft, non-tender Extremities:no edema Skin:no rash Neuro:no focal deficits Nodes: previously palpable sub-mental LAD is now resolved. Lab/Radiology/Diagnostic Review: CBC: Lab Results Component Value Date/Time WBC 25.4 (H) 10/09/2018 09:30 AM WBC 19.7 (H) 08/29/2018 04:03 PM HGB 12.4 (L) 10/09/2018 09:30 AM HGB 12.2 (L) 08/29/2018 04:03 PM HCT 36.9 (L) 10/09/2018 09:30 AM HCT 36.0 (L) 08/29/2018 04:03 PM LABPLAT 127 (L) 10/09/2018 09:30 AM LABPLAT 120 (L) 08/29/2018 04:03 PM NEUTROABS 4.7 10/09/2018 09:30 AM NEUTROABS 3,349 08/29/2018 04:03 PM CMP: Lab Results Component Value Date/Time SODIUM 137 10/09/2018 09:30 AM POTASSIUM 4.3 10/09/2018 09:30 AM CO2 27 10/09/2018 09:30 AM BUNSER 21 10/09/2018 09:30 AM GLUCOSE 118 10/09/2018 09:30 AM CREATININE 0.99 10/09/2018 09:30 AM CALCIUM 9.2 10/09/2018 09:30 AM CHLORIDE 102 10/09/2018 09:30 AM ALBUMIN 4.2 10/09/2018 09:30 AM AST 19 10/09/2018 09:30 AM ALT 26 10/09/2018 09:30 AM ALKPHOS 75 10/09/2018 09:30 AM BILITOT 0.4 10/09/2018 09:30 AM PROT 6.0 (L) 10/09/2018 09:30 AM ANIONGAP 8 10/09/2018 09:30 AM LDH: Lab Results Component Value Date/Time LDH 210 10/09/2018 09:30 AM Radiology IMPRESSION: (10/09/18) 1. Interval marked improvement in mediastinal and axillary lymphadenopathy. Supraclavicular lymphadenopathy is stable. ?? 2. Interval improvement in mesenteric, retroperitoneal, iliac, and inguinal lymphadenopathy. Interval improvement in mesenteric fat stranding as well. Assessment and Plan: Mr. Abdullahi is a very pleasant 67-year-old gentleman with SLL/CLL who was initially treated with FCR and obtained a 7-year remission. ??He relapsed and was treated on the ALT-803 plus rituximab clinical trial at the 3 mcg/kg dose level. ??His disease was stable, but then showed evidence of PD with enlarging lymph nodes 5 months ago. He was initiated on ibrutinib and has clinical evidence of response. ? 1.?Small lymphocytic lymphoma (SLL/CLL), recurrent.?He has side effects from the ibrutinib,including diarrhea, fatigue, easy bruising. CT shows good response so we will continue the ibrutinib for now. ?2.?Abdominal pain with constipation and fecal urgency.?The GI symptoms are being followedand managed by GI, and he saw Dr. Woody. We will continue to monitor. ?3.?Thyroid nodule.?We will continue to follow this expectantly. ?? 4. Sinus issues. He has frequent sinus infections and drainage. We will refer him to ENT. As always, the patient knows to contact our office with any questions or concerns in the interim. Cosigned by Burt Dos Santos MD PhD at 10/16/2018 11:21 AM CDT documented in this encounter Plan of Treatment Not on file documented as of this encounter Results * Lactate dehydrogenase (LD) (01/15/2019 10:16 AM LOOM CONTROL CHAIN BUILDER) Lactate dehydrogenase (LDH) 216 100 - 250 Units/L [facility] Blood specimen (specimen) 01/15/2019 10:16 AM LOOM CONTROL CHAIN BUILDER 01/15/2019 10:37 AM LOOM CONTROL CHAIN BUILDER us Magali Phelan Erie HEALTH SERVICE WORKER LAB BLOOD ORDERABLES Final Res ult [facility] Department [place] [address] * (ABNORMAL) Comprehensive metabolic panel (01/15/2019 10:16 AM LOOM CONTROL CHAIN BUILDER) Sodium 141 135 - 145 mmol/L [facility] Potassium, pl 4.3 3.3 - 4.9 mmol/L [facility] Chloride 105 97 - 110 mmol/L [facility] CO2 26 22 - 32 mmol/L [facility] Anion gap 10 2 - 15 mmol/L [facility] BUN 15 8 - 25 mg/dL [facility] Creatinine 0.77(L) 0.80 - 1.30 mg/dL [facility] Glucose 105 70 - 199 mg/dL [facility] Comment: Interpretive Data Fasting [...] interpretive data was last revised 2017. Calcium 9.4 8.5 - 10.3 mg/dL [facility] Bilirubin, total 0.7 0.1 - 1.2 mg/dL [facility] Protein, pl 6.2(L) 6.5 - 8.5 g/dL [facility] Albumin 4.1 3.5 - 5.0 g/dL [facility] Alk phos 83 40 - 130 Units/L [facility] ALT 24 7 - 55 Units/L [facility] AST 22 10 - 50 Units/L [facility] Blood specimen (specimen) 01/15/2019 10:16 AM LOOM CONTROL CHAIN BUILDER 01/15/2019 10:37 AM LOOM CONTROL CHAIN BUILDER us Magali Phelan Erie HEALTH SERVICE WORKER LAB BLOOD ORDERABLES Final Res ult [facility] Department [place] [address] * (ABNORMAL) CBC with auto differential (01/15/2019 10:15 AM LOOM CONTROL CHAIN BUILDER) WBC 15.5(H) 3.8 - 9.8 K/cumm [facility] Comment:Testing performed by : [facility], [address] [place] [phone] Hgb 13.8 13.8 - 17.2 g/dL [facility] Comment:Testing performed by : [facility], [address] [place] [phone] Hct 40.5(L) 40.7 - 50.3 % [facility] Comment:Testing performed by : [facility], [address] [place] [phone] Plt 152 140 - 440 K/cumm [facility] Comment:Testing performed by : [facility], [address] [place] [phone] MPV 11.3(H) 6.8 - 10.4 fL [facility] Comment:Testing performed by : [facility], [address] [place] [phone] RBC 4.12(L) 4.50 - 5.70 M/cumm [facility] Comment:Testing performed by : [facility], [address] [place] [phone] MCV 98.3(H) 80.0 - 97.6 fL [facility] Comment:Testing performed by : [facility], [address] [place] [phone] MCH 33.4 26.7 - 33.7 pg [facility] Comment:Testing performed by : [facility], [address] [place] [phone] MCHC 34.0 32.7 - 35.5 g/dL [facility] Comment:Testing performed by : [facility], [address] [place] [phone] RDW CV 17.8(H) 11.8 - 14.6 % [facility] Comment:Testing performed by : [facility], [address] [place] [phone] NRBC abs 0.01 0.00 - 0.01 K/cumm [facility] Comment:Testing performed by : [facility], [address] [place] [phone] Blood specimen (specimen) 01/15/2019 10:15 AM LOOM CONTROL CHAIN BUILDER 01/15/2019 10:18 AM LOOM CONTROL CHAIN BUILDER Magali Stapleton HEALTH SERVICE WORKER LAB BLOOD ORDERABLES Final Res ult [facility] Department [place] [address] documented in this encounter Visit Diagnoses Diagnosis CLL (chronic lymphocytic leukemia) (HCC)- Primary Chronic lymphoid leukemia, without mention of having achieved remission Lymphoma, small lymphocytic (HCC) Lymphosarcoma, unspecified site, extranodal and solid organ sites documented in this encounter Historical Medications * This list may reflect changes made after this encounter. cyanocobalamin, vitamin B-12, (VITAMIN B-12 ORAL)Indications:C LL (chronic lymphocytic leukemia) (HCC) Take 1,000 mcg by mouth daily 06/12/2019 added in this encounter Orders Appointment Requests Count Last Ordered Date Fi rst Ordered Date ONCBCN CLINIC APPOINTMENT REQUEST 2 019 10/09/2018 ONCBCN LAB APPOINTMENT 1 01/15/2019 documented in this encounter Additional Health Concerns Infection Onset Date Last Indicated Resolved Time C. difficile Comment:Backloaded December 21, 2010 09/21/2010 09/21/2010 documented as of this encounter Care Teams Fuel House Attendant Relationship Specialty Start Date End Date Lenin Ventura MD [address] [address] PCP - General 07/06/16 Lenin Ventura MD [address] [address] 07/06/16 documented as of this encounter
--- OUTSIDE RECORDS SUMMARY | 2024-02-22 08:33 | XMS_ITS | Encounter Summary ---
Author Organization [facility] Address [address] [place] [address] Phone Care Team Providers Care Utilization Review Specialist Name Role Phone Lenin Ventura MD Primary Care Provider [phone] Lenin Ventura MD Unavailable [phone] Encounter Details Date Type Department Care Team (Late st Contact Info) Description 08/29/2017 8:30 AM CDT Lab [facility] Oncology [address] [facility] 7th [place] [address] [place] [phone] Lymphoma, small lymphocytic (CMS/HCC) Social History Tobacco Use Types Packs/Day Years Used Date Smoking Tobacco: Former Sex and Gender Information Value Date Recorded Sex Assigned at Not on file Legal Sex Male 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
--- OUTSIDE RECORDS SUMMARY | 2024-02-22 08:33 | XMS_ITS | Encounter Summary ---
Author Organization [facility] Address [address] [place] [address] Phone Care Team Providers Care Chuck Tender Name Role Phone Lenin Ventura MD Primary Care Provider [phone] Lenin Ventura MD Unavailable [phone] Encounter Details Date Type Department Care Team (Late st Contact Info) Description 01/15/2019 9:45 AM COMPUTER ENGINEER Lab [facility] Oncology [address] [facility] 7th [place] [address] [place] [phone] Annita Wiley MD [address] DIV IM BONE MARROW TRANSPLANT, [address] [place] [address] CLL (chronic lymphocytic leukemia) ([facility]) Discharge Disposition: Discharge to home or self care Social History Tobacco Use Types Packs/Day Years Used Date Smoking Tobacco: Former Smokeless Tobacco: Never Sex and Gender Information Value Date Recorded Sex Assigned at Not on file Legal Sex Male 9:45 AM COMPUTER ENGINEER Gender Identity Not on file Sexual Orientation Not on file documented as of this encounter Discharge Disposition Disposition Code Departure Means Destination Discharge to home or self care documented in this encounter Plan of Treatment Not on file documented as of this encounter Procedures Procedure Name Priority Date/Time Associated Diagnosis Comments LACTATE DEHYDROGENASE Routine 01/15/2019 10:16 AM COMPUTER ENGINEER CLL (chronic lymphocytic leukemia) ([facility]) COMPREHENSIVE METABOLIC PANEL Routine 01/15/2019 10:16 AM COMPUTER ENGINEER CLL (chronic lymphocytic leukemia) (CMS/HCC) DIFFERENTIAL AUTO Routine 01/15/2019 10: 15 AM COMPUTER ENGINEER CLL (chronic lymphocytic leukemia) (CMS/HCC) CBC WITH AUTO DIFFERENTIAL Routine 01/15/2019 10:15 AM COMPUTER ENGINEER CLL (chronic lymphocytic leukemia) (CMS/HCC) documented in this encounter Results * (ABNORMAL) Comprehensive metabolic panel (01/15/2019 10:16 AM COMPUTER ENGINEER) Sodium 141 135 - 145 mmol/L [facility] Potassium, pl 4.3 3.3 - 4.9 mmol/L [facility] Chloride 105 97 - 110 mmol/L [facility] CO2 26 22 - 32 mmol/L [facility] Anion gap 10 2 - 15 mmol/L [facility] BUN 15 8 - 25 mg/dL [facility] Creatinine 0.77(L) 0.80 - 1.30 mg/dL [facility] Glucose 105 70 - 199 mg/dL [facility] Comment: [...] 2017. Calcium 9.4 8.5 - 10.3 mg/dL [facility] Bilirubin, total 0.7 0.1 - 1.2 mg/dL [facility] Protein, pl 6.2(L) 6.5 - 8.5 g/dL [facility] Albumin 4.1 3.5 - 5.0 g/dL [facility] Alk phos 83 40 - 130 Units/L [facility] ALT 24 7 - 55 Units/L [facility] AST 22 10 - 50 Units/L [facility] Blood specimen (specimen) 01/15/2019 10:16 AM COMPUTER ENGINEER 01/15/2019 10:37 AM COMPUTER ENGINEER Magali S. Tomales HYDROGRAPHIC SURVEYOR LAB BLOOD ORDERABLES Final Res ult [facility] Department [place] [address] * Lactate dehydrogenase (LD) (01/15/2019 10:16 AM COMPUTER ENGINEER) Pathologist [facility] Lactate dehydrogenase (LDH) 216 100 - 250 Units/L [facility] Blood specimen (specimen) 01/15/2019 10:16 AM COMPUTER ENGINEER 01/15/2019 10:37 AM COMPUTER ENGINEER Magali SJulisa Tomales HYDROGRAPHIC SURVEYOR LAB BLOOD ORDERABLES Final Res ult Performing Organization Address [facility] Co de Phone Number [facility] Department [place] [address] * (ABNORMAL) Differential, auto (01/15/2019 10:15 AM COMPUTER ENGINEER) Neutrophil abs 7.0(H) 1.8 - 6.6 K/cumm [facility] Comment:Testing performed by : [facility], [address] [place] [phone] Lymphocyte abs 7.4(H) 1.2 - 3.3 K/cumm [facility] Comment:Testing performed by : [facility], [address] [place] [phone] Monocyte abs 1.0 0.2 - 1.2 K/cumm [facility] Comment:Testing performed by : [facility], [address] [place] [phone] Eosinophil abs 0.0 0.0 - 0.5 K/cumm [facility] Comment:Testing performed by : [facility], [address] [place] [phone] Basophil abs 0.1 0.0 - 0.2 K/cumm [facility] Comment:Testing performed by : [facility], [address] [place] [phone] Neutrophil pct 45.0 % [facility] Comment: Interpretive Data Percent cell count reference ranges are not reported, since discordance with absolute values may lead to misinterpretation of CBC data. Current Interpretive Data was last revised on 2017. Testing performed by: [facility], [address] [place] [phone] Lymphocyte pct 47.6 % [facility] Comment: Interpretive Data Percent cell count reference ranges are not reported, since discordance with absolute values may lead to misinterpretation of CBC data. Current Interpretive Data was last revised on 2017. Testing performed by: [facility], [address] [place] [phone] Monocyte pct 6.7 % [facility] Comment:Testing performed by : [facility], [address] [place] [phone] Eosinophil pct 0.3 % [facility] Comment:Testing performed by : [facility], [address] [place] [phone] Basophil pct 0.4 % [facility] Comment:Testing performed by : [facility], [address] [place] [phone] Blood specimen (specimen) 01/15/2019 10:15 AM COMPUTER ENGINEER 01/15/2019 10:18 AM COMPUTER ENGINEER us Magali Phelan Tomales HYDROGRAPHIC SURVEYOR LAB BLOOD ORDERABLES Final Res ult Performing Organization Address City/State/[facility] Co de Phone Number [facility] Department [place] [address] * (ABNORMAL) CBC with auto differential (01/15/2019 10:15 AM COMPUTER ENGINEER) WBC 15.5(H) 3.8 - 9.8 K/cumm [facility] Comment:Testing performed by : [facility], [address] [place] [phone] Hgb 13.8 13.8 - 17.2 g/dL [facility] Comment:Testing performed by : [facility], [address] [place] [phone] Hct 40.5(L) 40.7 - 50.3 % [facility] Comment:Testing performed by : [facility], [address] [place], [place] [phone] Plt 152 140 - 440 K/cumm [facility] Comment:Testing performed by : [facility], [address] [place], [place] [phone] MPV 11.3(H) 6.8 - 10.4 fL [facility] Comment:Testing performed by : [facility], [address] [place] [address] RBC 4.12(L) 4.50 - 5.70 M/cumm [facility] Comment:Testing performed by : [facility], [address] [place], [place] [phone] MCV 98.3(H) 80.0 - 97.6 fL [facility] Comment:Testing performed by : [facility], [address] [place], [place] [phone] MCH 33.4 26.7 - 33.7 pg [facility] Comment:Testing performed by : [facility], [address] [place], [place] [phone] MCHC 34.0 32.7 - 35.5 g/dL [facility] Comment:Testing performed by : [facility], [address] [place], [place] [phone] RDW CV 17.8(H) 11.8 - 14.6 % [facility] Comment:Testing performed by : [facility], [address] [place], [place] [phone] NRBC abs 0.01 0.00 - 0.01 K/cumm [facility] Comment:Testing performed by : [facility], [address] [place] [phone] Blood specimen (specimen) 01/15/2019 10:15 AM COMPUTER ENGINEER 01/15/2019 10:18 AM COMPUTER ENGINEER us Magali Velazquezr HYDROGRAPHIC SURVEYOR LAB BLOOD ORDERABLES Final Res ult [facility] Department [place] [address] documented in this encounter Visit Diagnoses Diagnosis CLL (chronic lymphocytic leukemia) (HCC) Chronic lymphoid leukemia, without mention of having achieved remission documented in this encounter Orders Appointment Requests Count Last Ordered Date Fi rst Ordered Date ONCBCN LAB APPOINTMENT 1 01/15/2019 documented in this encounter Additional Health Concerns Infection Onset Date Last Indicated Resolved Time C. difficile Comment:Backloaded December 21, 2010 09/21/2010 09/21/2010 documented as of this encounter Care Teams Chuck Tender Relationship Specialty Start Date End Date Lenin Ventura MD [address] [place] [address] PCP - General 07/06/16 Lenin Ventura MD [address] [place] [address] 07/06/16 documented as of this encounter
--- OUTSIDE RECORDS SUMMARY | 2024-02-22 08:33 | XMS_ITS | Encounter Summary ---
Author Organization [facility] Address [address] [place] [address] Phone Care Team Providers Care Digital Pre Press Operator Name Role Phone Lenin Ventura MD Primary Care Provider [phone] Lenin Ventura MD Unavailable [phone] Encounter Details Date Type Department Care Team (Late st Contact Info) Description 08/18/2018 Orders Only [facility] Bone Marrow Transplant [address] [facility] Advanced Medicine 7th Floor, [place] [address] Burt Dos Santos MD PhD [address] IM BONE MARROW TRANSPLANT, [address] [place], [place] [id number] CLL (chronic lymphocytic leukemia) (CMS/[facility]) (Primary Dx) Social History Tobacco Use Types Packs/Day Years Used Date Smoking Tobacco: Former Smokeless Tobacco: Never Sex and Gender Information Value Date Recorded Sex Assigned at Not on file Legal Sex Male 9:45 AM 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 Gender Identity Not on file Sexual Orientation Not on file documented as of this encounter Ordered Prescriptions Prescription Sig Dispense Quantity Refills Last Filled Start Date End Date al & mag hydroxide with simethicone-diphen hydramine-lidocain e (MAGIC MOUTHWASH) suspension 1-6-9Vhcdtfjnahs:C hemotherapy-Induce d Mucositis Swish and swallow 10 mL every 4 (four) hours as needed (mouth pain) 240 mL 1 08/18/2018 9 documented in this encounter Plan of Treatment Not on file documented as of this encounter Visit Diagnoses Diagnosis CLL (chronic lymphocytic leukemia) (HCC)- Primary Chronic lymphoid leukemia, without mention of having achieved remission documented in this encounter Additional Health Concerns Infection Onset Date Last Indicated Resolved Time C. difficile Comment:Backloaded December 21, 2010 09/21/2010 09/21/2010 documented as of this encounter Care Teams Digital Pre Press Operator Relationship Specialty Start Date End Date Lenin Ventura MD [address] [place] [address] PCP - General 07/06/16 Lenin Ventura MD [address] [place] [address] 07/06/16 documented as of this encounter
--- OUTSIDE RECORDS SUMMARY | 2024-02-22 08:33 | XMS_ITS | Encounter Summary ---
Author Organization [facility] Address [address] [place] [address] Phone Care Team Providers Care Area Cleaner Name Role Phone Lenin Ventura MD Primary Care Provider [phone] Lenin Ventura MD Unavailable [phone] Encounter Details Date Type Department Care Team (Latest Contact Info) Description 06/06/2018 Orders Only [facility] Scanning, Provider Social History Tobacco Use Types Packs/Day Years Used Date Smoking Tobacco: Former Smokeless Tobacco: Never Sex and Gender Information Value Date Recorded Sex Assigned at Not on file Legal Sex Male 9:45 AM 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 difficile Comment:Backloaded December 21, 2010 09/21/2010 09/21/2010 documented as of this encounter Care Teams Area Cleaner Relationship Specialty Start Date End Date Lenin Ventura MD [address] [place] [address] PCP - General 07/06/16 Lenin Ventura MD [address] [address] 07/06/16 documented as of this encounter
--- OUTSIDE RECORDS SUMMARY | 2024-02-22 08:33 | XMS_ITS | Encounter Summary ---
Author Organization [facility] Address [address] [place] [address] Phone Care Team Providers Care Pipe Bowl Paint Trimmer Name Role Phone Lenin Ventura MD Primary Care Provider [phone] Lenin Ventura MD Unavailable [phone] Encounter Details Date Type Department Care Team (Late st Contact Info) Description 12/09/[address] 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 Gender Identity Not on file Sexual Orientation Not on file documented as of this encounter Ordered Prescriptions Prescription Sig Dispense Quantity Refills Last Filled Start Date End Date ibrutinib (IMBRUVICA) 420 mg tabletIndications: CLL (chronic lymphocytic leukemia) (HCC) Take 1 tablet (420 mg total) by mouth daily 28 tablet 2 12/09/2018 03/17/2019 documented in this encounter Plan of Treatment Not on file documented as of this encounter Visit Diagnoses Diagnosis CLL (chronic lymphocytic leukemia) (HCC) Chronic lymphoid leukemia, without mention of having achieved remission documented in this encounter Discontinued Medications Medication Sig Discontinue Reason Start Date End Da te IMBRUVICA 420 mg tabletIndications:CLL (chronic lymphocytic leukemia) (HCC) TAKE ONE TABLET BY MOUTH DAILY Reorder 09/11/2018 12/09/2018 documented as of this encounter Additional Health Concerns Infection Onset Date Last Indicated Resolved Time C. difficile Comment:Backloaded December 21, 2010 09/21/2010 09/21/2010 documented as of this encounter Care Teams Pipe Bowl Paint Trimmer Relationship Specialty Start Date End Date Lenin Ventura MD [address] [address] PCP - General 07/06/16 Lenin Ventura MD [address] [place] [address] 07/06/16 documented as of this encounter
--- OUTSIDE RECORDS SUMMARY | 2024-02-22 08:33 | XMS_ITS | Encounter Summary ---
Author Organization [facility] Address [address] [place] [address] Phone Care Team Providers Care Pump Press Operator Name Role Phone Lenin Ventura MD Primary Care Provider [phone] Lenin Ventura MD Unavailable [phone] Encounter Details Date Type Department Care Team (Late st Contact Info) Description 07/18/2017 Orders Only [facility] [address] [facility] Advanced Medicine 7th [place] [address] [place] [address] Burt Dos Santos MD PhD [address] DIV IM BONE MARROW TRANSPLANT, [address] [place] [address] Lymphoma, small lymphocytic (CMS/HCC) (Primary Dx) Social History Tobacco Use Types Packs/Day Years Used Date Smoking Tobacco: Former Sex and Gender Information Value Date Recorded Sex Assigned at Not on file 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 Gender Identity Not on file Sexual Orientation Not on file documented as of this encounter Plan of Treatment Not on file documented as of this encounter Procedures Procedure Name Priority Date/Time Associated Diagnosis Comments LACTATE DEHYDROGENASE Routine Gen Lab 08/29/2017 9:37 AM CDT COMPREHENSIVE METABOLIC PANEL Routine Gen Lab 08/29/2017 9:37 AM CDT DIFFERENTIAL AUTO Routine Gen Lab 08/29/2017 9:3 5 AM CDT CBC WITH AUTO DIFFERENTIAL Routine Gen Lab 08/29/2017 9:35 AM CDT documented in this encounter Results * Comprehensive metabolic panel (08/29/2017 9:37 AM CDT) Sodium 139 135 - 145 mmol/L [facility] Comment:Testing performed by : [facility], [address] [place]., [address] Potassium, pl 4.7 3.3 - 4.9 mmol/L [facility] Comment:Testing performed by : [facility], [address] [facility], [address] CO2 29 22 - 32 mmol/L [facility] Comment:Testing performed by : [facility], [address] [facility], [address] BUN 21 8 - 25 mg/dL [facility] Comment:Testing performed by : [facility], [address] [facility], [address] Glucose 132 70 - 199 mg/dL [facility] Comment: Interpretive Data Fasting glucose >/= 126 [...] was last revised 2017. Testing performed by: [facility], [address] [place]., [address] Creatinine 0.95 0.80 - 1.30 mg/dL [facility] Comment:Testing performed by : [facility], [address] [facility], [address] Calcium 9.5 8.5 - 10.3 mg/dL [facility] Comment:Testing performed by : [facility], [address] [facility], [address] Chloride 104 97 - 110 mmol/L [facility] Comment:Testing performed by : [facility], [address] [facility], [address] Albumin 4.1 3.5 - 5.0 g/dL [facility] Comment:Testing performed by : [facility], [address] [facility], [address] AST 23 10 - 50 Units/L [facility] Comment:Testing performed by : [facility], [address] [facility], [address] ALT 29 7 - 55 Units/L [facility] Comment:Testing performed by : [facility], [address] [facility], [address] Alk phos 83 40 - 130 Units/L [facility] Comment:Testing performed by : [facility], [address] [facility], [address] Bilirubin, total 0.5 0.1 - 1.2 mg/dL [facility] Comment:Testing performed by : [facility], [address] [facility], [address] Protein, pl 6.7 6.5 - 8.5 g/dL [facility] Comment:Testing performed by : [facility], [address] [facility], [address] Anion gap 6 2 - 15 mmol/L [facility] Comment:Testing performed by : [facility], [address] [place] [address], [address] Blood specimen (specimen) 08/29/2017 9:37 AM CDT 08/29/2017 9:50 AM CDT Narrative [facility] - 08/29/2017 10:23 AM CDT Burt Dos Santos MD PhD LAB BLOOD ORDERABLES Final Result [facility] Department [place] [address] * (ABNORMAL) Lactate dehydrogenase (LD) (08/29/2017 9:37 AM CDT) Pathologist [facility] Lactate dehydrogenase (LDH) 266(H) 100 - 250 Units/L [facility] Comment:Testing performed by : [facility], [address] [place] [address], [place]., [address] Blood specimen (specimen) 08/29/2017 9:37 AM CDT 08/29/2017 9:50 AM CDT Narrative [facility] - 08/29/2017 10:23 AM CDT Burt Dos Santos MD PhD LAB BLOOD ORDERABLES Final Result [facility] Department [place] [address] * (ABNORMAL) Differential, auto (08/29/2017 9:35 AM CDT) [facility] Neutrophil abs 2.9 1.8 - 6.6 K/cumm [facility] Lymphocyte abs 3.8(H) 1.2 - 3.3 K/cumm [facility] Monocyte abs 0.7 0.2 - 1.2 K/cumm [facility] Eosinophil abs 0.1 0.0 - 0.5 K/cumm [facility] Basophil abs 0.0 0.0 - 0.2 K/cumm [facility] Neutrophil pct 38.5 % [facility] Comment: Interpretive Data Percent cell count reference ranges are not reported, since discordance with absolute values may lead to misinterpretation of CBC data. Current Interpretive Data was last revised on 2017. Lymphocyte pct 50.0 % [facility] Comment: Interpretive Data Percent cell count reference ranges are not reported, since discordance with absolute values may lead to misinterpretation of CBC data. Current Interpretive Data was last revised on 2017. Monocyte pct 9.9 % [facility] Eosinophil pct 1.0 % [facility] Basophil pct 0.6 % [facility] Blood specimen (specimen) 08/29/2017 9:35 AM CDT 08/29/2017 9:36 AM CDT Narrative [facility] - 08/29/2017 9:40 AM CDT Burt Dos Santos MD PhD LAB BLOOD ORDERABLES Final Result [facility] Department of [employer] [place] [address] * (ABNORMAL) CBC with auto differential (08/29/2017 9:35 AM CDT) [facility] WBC 7.5 3.8 - 9.8 K/cumm [facility] RBC 4.32(L) 4.50 - 5.70 M/cumm [facility] Hgb 14.3 13.8 - 17.2 g/dL [facility] Hct 40.3(L) 40.7 - 50.3 % [facility] MCV 93.4 80.0 - 97.6 fL [facility] MCH 33.2 26.7 - 33.7 pg [facility] MCHC 35.5 32.7 - 35.5 g/dL [facility] RDW CV 13.7 11.8 - 14.6 % [facility] Plt 189 140 - 440 K/cumm [facility] MPV 8.9 6.8 - 10.4 fL [facility] NRBC abs 0.01 0.00 - 0.01 K/cumm [facility] Blood specimen (specimen) 08/29/2017 9:35 AM CDT 08/29/2017 9:36 AM CDT Narrative [facility] - 08/29/2017 9:40 AM CDT Burt Dos Santos MD PhD LAB BLOOD ORDERABLES Final Result [facility] Department [place] [employer] [address] documented in this encounter Visit Diagnoses Diagnosis Lymphoma, small lymphocytic (HCC)- Primary Lymphosarcoma, unspecified site, extranodal and solid organ sites documented in this encounter Orders Lab Orders Without Results Count Last Ordered D ate First Ordered Date CBC WITH AUTO DIFFERENTIAL 1 07/18/2017 COMPREHENSIVE METABOLIC PANEL 1 07/18/2017 LACTATE DEHYDROGENASE 1 07/18/2017 documented in this encounter Additional Health Concerns Infection Onset Date Last Indicated Resolved Time C. difficile Comment:Backloaded December 21, 2010 09/21/2010 09/21/2010 documented as of this encounter Care Teams Pump Press Operator Relationship Specialty Start Date End Date Lenin Ventura MD [address] [place] [address] PCP - General 07/06/16 Lenin Ventura MD [address] [place] [address] 07/06/16 documented as of this encounter
--- OUTSIDE RECORDS SUMMARY | 2024-02-22 08:33 | XMS_ITS | Encounter Summary ---
Author Organization [facility] Address [address] [place] [address] Phone Care Team Providers Care Seed Technician Name Role Phone Lenin Ventura MD Primary Care Provider [phone] Lenin Ventura MD Unavailable [phone] Encounter Details Date Type Department Care Team (Late st Contact Info) Description 10/09/2018 Orders Only [facility] Bone Marrow Transplant [address] [facility] Advanced Medicine 7th Floor, [place] [address] Burt Dos Santos MD PhD [address] DIV IM BONE MARROW TRANSPLANT, [address] [place], [place] [id number] CLL (chronic lymphocytic leukemia) (CMS/HCC) (Primary Dx) Social History Tobacco Use Types Packs/Day Years Used Date Smoking Tobacco: Former Smokeless Tobacco: Never Sex and Gender Information Value Date Recorded Sex Assigned at Not on file 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
--- OUTSIDE RECORDS SUMMARY | 2024-02-22 08:33 | XMS_ITS | Encounter Summary ---
Author Organization [facility] Address [address] [place] [address] Care Team Providers Care Paid Intern Name Role Phone Lenin Ventura MD Primary Care Provider [phone] Lenin Ventura MD Unavailable [phone] Reason for Referral * MRI/CAT/PET Scan (Routine) - Canceled Specialty Diagnoses / Procedures Referred By Michellac t Referred To Contact Radiology Diagnoses Lymphoma, small lymphocytic (HCC) Procedures CT soft tissue neck with contrast Burt Dos Santos MD PhD Phone: tel: fax: [address] [address] Referral ID Status Reason Start Date Expiration Date V isits Requested Visits Authorized [id number] Canceled 07/10/2018 01/19/2020 1 1 * MRI/CAT/PET Scan (Routine) - Closed Specialty Diagnoses / Procedures [facility] Referred To Contact Radiology Diagnoses Lymphoma, small lymphocytic (HCC) Procedures CT chest abdomen pelvis with contrast Burt Dos Santos MD PhD Phone: tel: fax: [address] [address] Referral ID Status Reason Start Date Expiration Date Visits Re quested Visits Authorized [id number] Closed 07/10/2018 01/19/2020 1 1 Reason for Visit * MRI/CAT/PET Scan (Routine) - Closed Specialty Diagnoses / Procedures Referred By Trent delgado Referred To Contact Radiology Diagnoses Lymphoma, small lymphocytic (HCC) Procedures CT chest abdomen pelvis with contrast Burt Dos Santos MD PhD Phone: tel: fax: [facility] [address] [place] [address] Referral ID Status Reason Start Date Expiration Date Visits Re quested Visits Authorized [id number] Closed 07/10/2018 01/19/2020 1 1 Encounter Details Date Type Department Care Team (Latest Contact Info) Description 10/09/2018 8:00 AM CDT - 10/09/2018 11:59 PM CDT Hospital Encounter [facility] [address] [place] [address] Burt Dos Santos MD PhD [address] DIV IM BONE MARROW TRANSPLANT, [address] [place] [address] Lymphoma, small lymphocytic (CMS/HCC) Discharge Disposition: Discharge to home or self care Social History Tobacco Use Types Packs/Day Years Used Date Smoking Tobacco: Former Smokeless Tobacco: Never Sex and Gender Information Value Date Recorded Sex Assigned at Not on file 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 Gender Identity Not on file Sexual Orientation Not on file documented as of this encounter Medications at Time of Discharge fluticasone (FLONASE) 50 mcg/actuation nasal spray Administer 2 sprays into each nostril daily 03/08/2015 acyclovir (ZOVIRAX) 200 mg capsuleIndication s:Prophylaxis, Medical Take 2 capsules (400 mg total) by mouth 2 (two) times a day 60 capsule 3 10/09/2018 9 al & mag hydroxide simethicone-diphe nhydramine-lidoca ine-nystatin (MAGIC MOUTHWASH) suspension 6-3-6-1Indication s:Chemotherapy-In duced Mucositis Swish and swallow 10 mL every 4 (four) hours as needed (mouth pain) 240 mL 1 08/18/2018 0 cyanocobalamin, vitamin B-12, (VITAMIN B-12 ORAL)Indications: CLL (chronic lymphocytic leukemia) (HCC) Take 1,000 mcg by mouth daily 0 HYDROcodone-aceta minophen (NORCO) 5-325 mg per tabletIndications :Pain Take 1 tablet by mouth every 6 (six) hours as needed for pain 0 10/09/2017 0 IBUPROFEN ORALIndications:p t unsure of dose Take by mouth as needed 0 IMBRUVICA 420 mg tabletIndications :CLL (chronic lymphocytic leukemia) (HCC) TAKE ONE TABLET BY MOUTH DAILY 28 tablet 2 09/11/2018 9 polyethylene glycol (GoLYTELY) 236-22.74-6.74 -5.86 gram solutionIndicatio [...] CONTRAST Schedule Routine, Read Routine (OP Routine) 10/09/2018 9:07 AM CDT Lymphoma, small lymphocytic (CMS/HCC) CT SOFT TISSUE NECK W CONTRAST Schedule Routine, Read Routine (OP Routine) 10/09/2018 9:07 AM CDT Lymphoma, small lymphocytic (CMS/HCC) POCT CREATININE - DEVICE Routine 10/09/2018 8:49 AM CDT documented in this encounter Results [...] are normal. The limited view of the [place] is unremarkable. The visualized portions [...] are normal. The limited view of the [place] is unremarkable. The visualized portions [...] PROCEDURES Fi nal Result * POCT creatinine (10/09/2018 8:49 AM CDT) Creatinine POC 0.9 0.7 - 1.3 mg/dL [facility] Blood specimen (specimen) 10/09/2018 8:49 AM CDT 10/09/2018 8:49 AM CDT Burt Dos Santos MD PhD LAB POCT ORDERABLES - DEVICE Final Result [facility] [place] [address] documented in this encounter Visit Diagnoses Diagnosis Lymphoma, small lymphocytic (HCC) Lymphosarcoma, unspecified site, extranodal and solid organ sites documented in this encounter Administered Medications Inactive Administered Medications - up to 3 most recent administrations Medication Order MAR Action Action Date Dose Rate Site ioversol (OPTIRAY 350) syringe syringe 100 mL 100 mL, intravenous, Once in imaging, contrast, Starting on [place] 10/09/18 at 0908, For 1 dose Given 10/09/2018 9:13 AM CDT 100 mL ioversol (OPTIRAY 350) syringe syringe 75 mL 75 mL, intravenous, Once in imaging, contrast, Starting on [place] 10/09/18 at 0908, For 1 dose Given 10/09/2018 9:13 AM CDT 75 mL documented in this encounter Additional Health Concerns Infection Onset Date Last Indicated Resolved Time C. difficile Comment:Backloaded December 21, 2010 09/21/2010 09/21/2010 documented as of this encounter Care Teams Paid Intern Relationship Specialty Start Date End Date Lenin Ventura MD [email or web address] [place] [address] PCP - General 07/06/16 Lenin Ventura MD [address] [place] [address] 07/06/16 documented as of this encounter
--- OUTSIDE RECORDS SUMMARY | 2024-02-22 08:33 | XMS_ITS | Encounter Summary ---
Author Organization [facility] Address [address] [place] [address] Phone Care Team Providers Care Student Support Services Director Name Role Phone Lenin Ventura MD Primary Care Provider [phone] Lenin Ventura MD Unavailable [phone] Reason for Visit * Oncology (Routine) - Authorized Specialty Diagnoses / Procedures Referred By Contac t Referred To Contact Medical Oncology / Oncology Diagnoses Appt Comment: LAB Procedures RETURN Lenin Ventura MD [address] [facility] [address] [place] [address] Phone: tel: fax: Burt Dos Santos MD PhD [phone] [facility] [place] 8 DIV IM BONE MARROW TRANSPLANT, 5TH, [address] [place] [address] Phone: tel: fax: Referral ID Status Reason Start Date Expiration Date V isits Requested Visits Authorized [id number] Authorized 08/02/2017 03/12/2024 99 99 Encounter Details Date Type Department Care Team (Late st Contact Info) Description 01/15/2019 10:45 AM PANEL COVERER Office Visit [facility] Oncology [address] 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 Gender Identity Not on file Sexual Orientation Not on file documented as of this encounter Last Filed Vital Signs Vital Sign Reading Time Taken Comments Blood Pressure 129/71 01/15/2019 10:31 AM PANEL COVERER Pulse 78 01/15/2019 10:31 AM PANEL COVERER Temperature 36.8 ??C (98.3 ??F) 01/15/2019 1 0:31 AM PANEL COVERER Respiratory Rate 18 01/15/2019 10:3 1 AM PANEL COVERER Oxygen Saturation 96% 01/15/2019 10: 31 AM PANEL COVERER Inhaled Oxygen Concentration - - Weight 123.5 kg (272 lb 3.2 oz) 019 10:31 AM PANEL COVERER Height - - Body Mass Index 33.35 04/10/2018 9:49 AM PANEL COVERER documented in this encounter Progress Notes * Burt Dos Santos MD PhD - 01/15/2019 10:45 AM CST BMT Progress Note Lymphoma, small [...] x 4; [place] clinical [place] [facility] [id number] stable disease on CT; marrow 30-40% invovled 09/01/15 05/29/2018 - Targeted Therapy Imbruvica 420mg daily Subjective Interval History Mr. Abdullahi returns for scheduled follow up. He is reporting minor side effects from the ibrutinib including easy bruising. He has a lot of sinus infections and pressure, and was treated with abx a few weeks ago. He has had this problem in the past. He denies fevers. He has bouts of diarrhea, not everyday. He notices easy bruising and bleeding. He has modest fatigue. Outpatient Encounter Medications as of 01/15/2019: ??? acyclovir (ZOVIRAX) 200 mg capsule, Take 2 capsules (400 mg total) by mouth 2 (two) times a day, Disp: 60 capsule, Rfl: 3 ? ? al & mag hydroxide hlkguivegcr-ammxkiodwdyocxo-eedxggipb-nystatin (MAGIC MOUTHWASH) suspension 1-1-1-1, Swish and swallow 10 mL every 4 (four) hours as needed (mouth pain), Disp: 240 mL, Rfl:1 ??? cyanocobalamin, vitamin B-12, (VITAMIN B-12 ORAL), Take by mouth daily, Disp: , Rfl: ??? fluticasone (FLONASE) 50 mcg/actuation nasal spray, daily., Disp: , Rfl: ??? HYDROcodone-acetaminophen (NORCO) 5-325 mg per tablet, as needed , Disp: , Rfl: 0 ??? ibrutinib (IMBRUVICA) 420 mg tablet, Take 1 tablet (420 mg total) by mouth daily, Disp: 28 tablet, Rfl: 2 ??? IBUPROFEN ORAL, Take by mouth as needed, Disp: , Rfl: ??? polyethylene glycol (GoLYTELY) 236-22.74-6.74 -5.86 gram solution, TAKE DIRECTED., Disp: , Rfl: ??? ranitidine (ZANTAC) 150 mg capsule, pt states prn, Disp: , Rfl: Performance Status: 1 Objective Vitals: BP: 129/71 Temp: 36.8 ??C (98.3 ??F) Temp src: Oral Pulse: 78 Resp: 18 SpO2: 96 % Weight: 123.5 kg (272 lb 3.2 oz) Physical exam: In no acute distress HEENT:schlera white Lungs:CTA tawny Heart:RRR Abdomen:soft, non-tender Extremities:no edema Skin:no rash Neuro:no focal deficits Nodes: previously palpable sub-mental LAD is now resolved. Lab/Radiology/Diagnostic Review: CBC: Lab Results Component Value Date/Time WBC 15.5 (H) 01/15/2019 10:15 AM WBC 16.3 (H) 12/25/2018 10:12 AM HGB 13.8 01/15/2019 10:15 AM HGB 14.2 12/25/2018 10:12 AM HCT 40.5 (L) 01/15/2019 10:15 AM HCT 41.9 12/25/2018 10:12 AM LABPLAT 152 01/15/2019 10:15 AM LABPLAT 165 12/25/2018 10:12 AM NEUTROABS 7.0 (H) 01/15/2019 10:15 AM NEUTROABS 4,890 12/25/2018 10:12 AM CMP: Lab Results Component Value Date/Time [...] from the ibrutinib,including easy bruising and nail changes. Overall these are minor, but he is quite vocal about them. ?? 2.?Abdominal pain with constipation and fecal urgency.?The GI symptoms are being followed and managed by GI, and he saw Dr. Woody. We will continue to monitor, but these improved dramatically with a ketogenic diet. ?? 3.?Thyroid nodule.?We will continue to follow this expectantly. ?? 4. Sinus issues. He has frequent sinus infections and drainage. We will refer him to ENT. As always, the patient knows to contact our office with any questions or concerns in the interim. L COVERER documented in this encounter Plan of Treatment Not on file documented as of this encounter Visit Diagnoses Diagnosis Lymphoma, small lymphocytic (HCC)- Primary Lymphosarcoma, unspecified site, extranodal and solid organ sites CLL (chronic lymphocytic leukemia) (HCC) Chronic lymphoid leukemia, without mention of having achieved remission Need for vaccination Need for prophylactic vaccination and inoculation against unspecified single disease documented in this encounter Orders Immunization/Injection Count Last Ordered Date First Ordered Date FLU VACCINE MDCK QUAD PF 4Y+ IM - FLUCELVAX 1 01/15/2019 Appointment Requests Count Last Ordered Date Fi rst Ordered Date ONCBCN CLINIC APPOINTMENT REQUEST 1 019 documented in this encounter Additional Health Concerns Infection Onset Date Last Indicated Resolved Time C. difficile Comment:Backloaded December 21, 2010 09/21/2010 09/21/2010 documented as of this encounter Care Teams Student Support Services Director Relationship Specialty Start Date End Date Lenin Ventura MD [address] [address] PCP - General 07/06/16 Lenin Ventura MD [address] [address] 07/06/16 documented as of this encounter
--- OUTSIDE RECORDS SUMMARY | 2024-02-22 08:33 | XMS_ITS | Encounter Summary ---
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 Name Role Phone Lenin Ventura MD Primary Care Provider [phone] Lenin Ventura MD Unavailable [phone] Reason for Visit * Reason Onset Date Comments Review Medications 06/09/2018 Symptom Review 06/09/2018 Encounter Details Date Type Department Care Team (Late st Contact Info) Description 06/09/2018 Telephone [facility] Bone Marrow Transplant [address] [facility] 7th Floor, [place] [address] Josie Mejia, application support technician Medications; Symptom Review Social History Tobacco Use Types Packs/Day Years Used Date Smoking Tobacco: Former Smokeless Tobacco: Never Sex and Gender Information Value Date Recorded Sex Assigned at Not on file 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 Levels are expected with recent initiation of ibrutinib. Patient is feeling good, slightly fatigued, but he has noticed that the lymph nodes in his neck are reduced in size already. Plan to keep ROV in July as scheduled. Patient verbalized plan and knows to call if symptoms arise. documented in this encounter Plan of Treatment Not on file documented as of this encounter Visit Diagnoses Not on filedocumented in this encounter Additional Health Concerns Infection Onset Date Last Indicated Resolved Time C. difficile Comment:Backloaded December 21, 2010 09/21/2010 09/21/2010 documented as of this encounter Care Teams Local Owner Operator Truck Driver Relationship Specialty Start Date End Date Lenin Ventura MD [address] [place] [address] PCP - General 07/06/16 Lenin Ventura MD [address] [place] [address] 07/06/16 documented as of this encounter
--- OUTSIDE RECORDS SUMMARY | 2024-02-22 08:33 | XMS_ITS | Encounter Summary ---
Author Organization [facility] Address [address] [place] [address] Phone Care Team Providers Care Sensor Technician Name Role Phone Lenin Ventura MD Primary Care Provider [phone] Lenin Ventura MD Unavailable [phone] Encounter Details Date Type Department Care Team (Late st Contact Info) Description 06/26/2018 Orders Only [facility] Bone Marrow Transplant [address] [facility] 7th Floor, [place] [id number] Burt Dos Santos MD PhD [address] DIV IM BONE MARROW TRANSPLANT, [address] [place], [place] [id number] CLL (chronic lymphocytic leukemia) (CMS/HCC) (Primary Dx) Social History Tobacco Use Types Packs/Day Years Used Date Smoking Tobacco: Former Smokeless Tobacco: Never Sex and Gender Information Value Date Recorded Sex Assigned at Not on file Legal Sex Male 9:45 AM INVESTIGATIONS CHIEF Gender Identity Not on file Sexual Orientation Not on file documented as of this encounter Plan of Treatment Scheduled Orders Name Type Priority Associated Diagnoses Orde r Schedule CBC with auto differential Lab Routine CLL (chronic lymphocytic leukemia) (CMS/HCC) monthly for 12 Occurrences starting 06/26/2018 until 06/27/2019, 5 completed documented as of this encounter Procedures Procedure Name Priority Date/Time Associated Diagnosis Comments CBC WITH AUTO DIFFERENTIAL Routine 04/10/2019 3:03 PM INVESTIGATIONS CHIEF CLL (chronic lymphocytic leukemia) (CMS/HCC) CBC WITH AUTO DIFFERENTIAL Routine 12/25/2018 10:12 AM CDT CLL (chronic lymphocytic leukemia) ([facility]/HCC) CBC WITH AUTO DIFFERENTIAL Routine 08/29/2018 4:03 PM CDT CLL (chronic lymphocytic leukemia) (CMS/HCC) CBC WITH AUTO DIFFERENTIAL Routine 07/29/2018 11:11 AM CDT CLL (chronic lymphocytic leukemia) (CMS/HCC) CBC WITH AUTO DIFFERENTIAL Routine 07/01/2018 2:31 PM CDT CLL (chronic lymphocytic leukemia) (CMS/HCC) documented in this encounter Results * (ABNORMAL) CBC with auto differential (04/10/2019 3:03 PM INVESTIGATIONS CHIEF) WBC 13.7(H) 3.8 - 10.8 Thousand/ uL [facility] [place] RBC, POC 4.18(L) 4.20 - 5.80 Million/u L [facility] [place] Hgb 14.2 13.2 - 17.1 g/dL [facility] [place] Hct 41.2 38.5 - 50.0 % [facility] [place] MCV 98.6 80.0 - 100.0 fL [facility] [place] MCH 34.0(H) 27.0 - 33.0 pg [facility] [place] MCHC 34.5 32.0 - 36.0 g/dL [facility] [place] Rdw 15.7(H) 11.0 - 15.0 % [facility] [place] Platelets 158 140 - 400 Thousand/ uL [facility] [place] MPV 12.9(H) 7.5 - 12.5 fL [facility] [place] Neutrophils, abs 4,590 1,500 - 7,800 cells/uL [facility] [place] Lymphocytes, abs 8,206(H) 850 - 3,900 cells/uL [facility] [place] Monocyte abs 644 200 - 950 cells/uL [facility] [place] Eosinophils, abs 96 15 - 500 cells/uL [facility] [place] Basophils, abs 164 0 - 200 cells/uL [facility] [place] Neutrophils 33.5 % [facility] [place] Lymphocyte pct 59.9 % [facility] [place] Monocytes 4.7 % [facility] [place] Eosinophils 0.7 % [facility] [place] Basophils 1.2 % [facility] [place] Blood specimen (specimen) 04/10/2019 3:03 PM INVESTIGATIONS CHIEF 04/10/2019 3:04 PM INVESTIGATIONS CHIEF Narrative Resulting Agency Comment Performing Organization Information: ?Site ID: [place] ?Name: [facility] ?Address: [facility] [place] [address] ?Director: Hardeep Corona D.O., MPH Burt Dos Santos MD PhD LAB BLOOD ORDERABLES Final Result [facility] [place] * (ABNORMAL) CBC with auto differential (12/25/2018 10:12 AM CDT) WBC 16.3(H) 3.8 - 10.8 Thousand/ uL [facility] [place] RBC, POC 4.27 4.20 - 5.80 Million/u L [facility] [place] Hgb 14.2 13.2 - 17.1 g/dL [facility] [place] Hct 41.9 38.5 - 50.0 % [facility] [place] MCV 98.1 80.0 - 100.0 fL [facility] [place] MCH 33.3(H) 27.0 - 33.0 pg [facility] [place] MCHC 33.9 32.0 - 36.0 g/dL [facility] [place] Rdw 16.9(H) 11.0 - 15.0 % [facility] [place] Platelets 165 140 - 400 Thousand/ uL [facility] [place] MPV 13.0(H) 7.5 - 12.5 fL [facility] [place] Neutrophils, abs 4,890 1,500 - 7,800 cells/uL [facility] [place] Lymphocytes, abs 10,595(H) 850 - 3,900 cells/uL [facility] [place] Monocyte abs 815 200 - 950 cells/uL [facility] [place] Eosinophils, abs 0(L) 15 - 500 cells/uL [facility] [place] Basophils, abs 0 0 - 200 cells/uL [facility] [place] Neutrophils 30 % [facility] [place] Lymphocyte pct 65 % [facility] [place] Comment:Many atypical lympho cytes present Monocytes 5 % [facility] [place] Eosinophils 0 % [facility] [place] Basophils 0 % [facility] [place] Comment [facility] [place] Comment: Polychromasia 1 + Smudge cells present. The smear has been manually reviewed and the manual differential has been reported. This differential has been reviewed by the repulping supervisor, caravan park and camping ground manager or designee. Blood specimen (specimen) 12/25/2018 10:12 AM CDT 12/25/2018 10:12 AM CDT Narrative [facility] - 12/26/2018 12:45 AM CDT FASTING:NO FASTING: NO Resulting Agency Comment Performing Organization Information: ?Site ID: [place] ?Name: [employer] ?Address: [address] [place], [place] [address] [address] ?Director: Hardeep Corona D.O., MPH Burt Dos Santos MD PhD LAB BLOOD ORDERABLES Final Result [facility] [place] * (ABNORMAL) CBC with auto differential (08/29/2018 4:03 PM CDT) WBC 19.7(H) 3.8 - 10.8 Thousand/ uL [facility] [place] RBC, POC 3.74(L) 4.20 - 5.80 Million/u L [facility] [place] Hgb 12.2(L) 13.2 - 17.1 g/dL [facility] [place] Hct 36.0(L) 38.5 - 50.0 % [facility] [place] MCV 96.3 80.0 - 100.0 fL [facility] [place] MCH 32.6 27.0 - 33.0 pg [facility] [place] MCHC 33.9 32.0 - 36.0 g/dL [facility] [place] Rdw 15.1(H) 11.0 - 15.0 % [facility] [place] Platelets 120(L) 140 - 400 Thousand/ uL [facility] [place] MPV 13.7(H) 7.5 - 12.5 fL [facility] [place] Neutrophils, abs 3,349 1,500 - 7,800 cells/uL [facility] [place] Neutrophil bands, abs 197 0 - 750 cells/uL [facility] [place] Lymphocytes, abs 15,563(H) 850 - 3,900 cells/uL [facility] [place] Monocyte abs 394 200 - 950 cells/uL [facility] [place] Eosinophils, abs 197 15 - 500 cells/uL [facility] [place] Basophils, abs 0 0 - 200 cells/uL [facility] [place] Neutrophils 17 % [facility] [place] Neutrophilic bands 1 % [facility] [place] Lymphocyte pct 79 % [facility] [place] Comment:Many atypical lympho cytes present Monocytes 2 % [facility] [place] Eosinophils 1 % [facility] [place] Basophils 0 % [facility] [place] Comment [facility] [place] Comment: Polychromasia 1 + Smudge cells present. The smear has been manually reviewed and the manual differential has been reported. This differential has been reviewed by the repulping supervisor, caravan park and camping ground manager or designee. Blood specimen (specimen) 08/29/2018 4:03 PM CDT 08/29/2018 4:04 PM CDT Narrative Resulting Agency Comment Performing Organization Information: ?Site ID: [place] ?Name: [employer] ?Address: [address] [place] [address] [place] [address] ?Director: Hardeep Corona D.O., MPH Burt Dos Santos MD PhD LAB BLOOD ORDERABLES Final Result [facility] [place] * (ABNORMAL) CBC with auto differential (07/29/2018 11:11 AM CDT) WBC 21.5(H) 3.8 - 10.8 Thousand/ uL [facility] [place] RBC, POC 3.66(L) 4.20 - 5.80 Million/u L [facility] [place] Hgb 11.9(L) 13.2 - 17.1 g/dL [facility] [place] Hct 35.8(L) 38.5 - 50.0 % [facility] [place] MCV 97.8 80.0 - 100.0 fL [facility] [place] MCH 32.5 27.0 - 33.0 pg [facility] [place] MCHC 33.2 32.0 - 36.0 g/dL [facility] [place] Rdw 15.0 11.0 - 15.0 % [facility] [place] Platelets 136(L) 140 - 400 Thousand/ uL [facility] [place] MPV 13.0(H) 7.5 - 12.5 fL [facility] [place] Neutrophils, abs 5,375 1,500 - 7,800 cells/uL [facility] [place] Lymphocytes, abs 15,480(H) 850 - 3,900 cells/uL [facility] [place] Monocyte abs 645 200 - 950 cells/uL [facility] [place] Eosinophils, abs 0(L) 15 - 500 cells/uL [facility] [place] Basophils, abs 0 0 - 200 cells/uL [facility] [place] Neutrophils 25 % [facility] [place] Lymphocyte pct 72 % [facility] [place] Monocytes 3 % [facility] [place] Eosinophils 0 % [facility] [place] Basophils 0 % [facility] [place] Comment [facility] [place] Comment: Large and/or giant platelets seen. Polychromasia 1 + Ovalocytes 1 + Many atypical lymphocytes observed. The smear has been manually reviewed and the manual differential has been reported. Blood specimen (specimen) 07/29/2018 11:11 AM CDT 07/29/2018 11:11 AM CDT Narrative Resulting Agency Comment Performing Organization Information: ?Site ID: [place] ?Name: [employer] ?Address: [address] [place], [place] [address] [place] [address] ?Director: Hardeep Corona D.O., MPH Burt Dos Santos MD PhD LAB BLOOD ORDERABLES Final Result [facility] [place] * (ABNORMAL) CBC with auto differential (07/01/2018 2:31 PM CDT) WBC 42.8(H) 3.8 - 10.8 Thousand/ uL [facility] [place] RBC, POC 3.85(L) 4.20 - 5.80 Million/u L [facility] [place] Hgb 12.3(L) 13.2 - 17.1 g/dL [facility] [place] Hct 36.9(L) 38.5 - 50.0 % [facility] [place] MCV 95.8 80.0 - 100.0 fL [facility] [place] MCH 31.9 27.0 - 33.0 pg [facility] [place] MCHC 33.3 32.0 - 36.0 g/dL [facility] [place] Rdw 15.3(H) 11.0 - 15.0 % [facility] [place] Platelets 151 140 - 400 Thousand/ uL [facility] [place] MPV 13.0(H) 7.5 - 12.5 fL [facility] [place] Neutrophils, abs 4,665 1,500 - 7,800 cells/uL [facility] [place] Lymphocytes, abs 35,995(H) 850 - 3,900 cells/uL [facility] [place] Monocyte abs 1,669(H) 200 - 950 cells/uL [facility] [place] Eosinophils, abs 128 15 - 500 cells/uL [facility] [place] Basophils, abs 342(H) 0 - 200 cells/uL [facility] [place] Neutrophils 10.9 % [facility] [place] Lymphocyte pct 84.1 % [facility] [place] Monocytes 3.9 % [facility] [place] Eosinophils 0.3 % [facility] [place] Basophils 0.8 % [facility] [place] Blood specimen (specimen) 07/01/2018 2:31 PM CDT 07/01/2018 2:31 PM CDT Narrative Resulting Agency Comment Performing Organization Information: ?Site ID: [place] ?Name: [facility] ?Address: [address] [place] [address] ?Director: Hardeep Corona D.O., MPH Burt Dos Santos MD PhD LAB BLOOD ORDERABLES Final Result [facility] [place] documented in this encounter Visit Diagnoses Diagnosis CLL (chronic lymphocytic leukemia) (HCC)- Primary Chronic lymphoid leukemia, without mention of having achieved remission documented in this encounter Additional Health Concerns Infection Onset Date Last Indicated Resolved Time C. difficile Comment:Backloaded December 21, 2010 09/21/2010 09/21/2010 documented as of this encounter Care Teams Sensor Technician Relationship Specialty Start Date End Date Lenin Ventura MD [address] [address] PCP - General 07/06/16 Lenin Ventura MD [address] [address] 07/06/16 documented as of this encounter
--- OUTSIDE RECORDS SUMMARY | 2024-02-22 08:33 | XMS_ITS | Encounter Summary ---
Author Organization [facility] Address [address] [place] [address] Care Team Providers Care Business English Instructor Name Role Phone Lenin Ventura MD Primary Care Provider [phone] Lenin Ventura MD Unavailable [phone] Reason for Referral * Diagnostic Imaging (Routine) - Closed Specialty Diagnoses / Procedures Referred By Contac t Referred To Contact Radiology Diagnoses Lymphoma, small lymphocytic (HCC) Procedures CT Neck Soft Tissue W Contrast Burt Dos Santos MD PhD Phone: tel: fax: [address] [address] Referral ID Status Reason Start Date Expiration Date Visits Re quested Visits Authorized [id number] Closed 04/10/2018 05/10/2018 1 1 LOPMENTAL PSYCHOLOGIST * Diagnostic Imaging (Routine) - Closed Specialty Diagnoses / Procedures Referred By Contac t Referred To Contact Radiology Diagnoses Lymphoma, small lymphocytic (HCC) Procedures CT Chest Abdomen Pelvis W Contrast CT Neck Chest Abdomen Pelvis W Contrast Burt Dos Santos MD PhD Phone: tel: fax: [address] [phone] Referral ID Status Reason Start Date Expiration Date Visits Re quested Visits Authorized [id number] Closed 04/10/2018 05/10/2018 1 1 LOPMENTAL PSYCHOLOGIST Reason for Visit * Diagnostic Imaging (Routine) - Closed Specialty Diagnoses / Procedures Referred By Contac t Referred To Contact Radiology Diagnoses Lymphoma, small lymphocytic (HCC) Procedures CT Chest Abdomen Pelvis W Contrast CT Neck Chest Abdomen Pelvis W Contrast Burt Dos Santos MD PhD Phone: tel: fax: [address] [phone] Referral ID Status Reason Start Date Expiration Date Visits Re quested Visits Authorized [id number] Closed 04/10/2018 05/10/2018 1 1 Encounter Details Date Type Department Care Team (Latest Contact Info) Description 04/10/2018 8:02 AM DEVELOPMENTAL PSYCHOLOGIST - 04/10/2018 11:59 PM DEVELOPMENTAL PSYCHOLOGIST Hospital Encounter [facility] [address] [place] [address] Burt Dos Santos MD PhD [address] [employer], [address] [place] [address] Lymphoma, small lymphocytic (CMS/HCC) Discharge Disposition: Discharge to home or self care Social History Tobacco Use Types Packs/Day Years Used Date Smoking Tobacco: Former Smokeless Tobacco: Never Sex and Gender Information Value Date Recorded Sex Assigned at Not on file Legal Sex Male 9:45 AM DEVELOPMENTAL PSYCHOLOGIST Gender Identity Not on file Sexual Orientation Not on file documented as of this encounter Medications at Time of Discharge fluticasone (FLONASE) 50 mcg/actuation nasal spray Administer 2 sprays into each nostril daily 03/08/2015 HYDROcodone-acet aminophen (NORCO) 5-325 mg per tabletIndication s:Pain Take 1 tablet by mouth every 6 (six) hours as needed for pain 0 10/09/2017 0 polyethylene glycol (GoLYTELY) 236-22.74-6.74 -5.86 gram solutionIndicati ons:Bowel Evacuation TAKE DIRECTED. 01/01/2017 0 ranitidine (ZANTAC) [...] CONTRAST Schedule Routine, Read Routine (OP Routine) 04/10/2018 8:43 AM DEVELOPMENTAL PSYCHOLOGIST Lymphoma, small lymphocytic (CMS/HCC) CT SOFT TISSUE NECK W CONTRAST Schedule Routine, Read Routine (OP Routine) 04/10/2018 8:43 AM DEVELOPMENTAL PSYCHOLOGIST Lymphoma, small lymphocytic (CMS/HCC) POCT CREATININE FOR CONTRAST EVALUATION Routine Gen Lab 04/10/2018 8:32 AM DEVELOPMENTAL PSYCHOLOGIST documented in this encounter Results * CT Neck Soft Tissue W Contrast (04/10/2018 8:43 AM DEVELOPMENTAL PSYCHOLOGIST) Anatomical Region Laterality Modality Head and Neck N/A Computed Tomogra phy 04/10/2018 11:0 6 AM DEVELOPMENTAL PSYCHOLOGIST Impressions 04/10/2018 1:56 PM DEVELOPMENTAL PSYCHOLOGIST Interval worsened cervical lymphadenopathy involving all stations of the neck. Dictated by: Eleonora Weaver M.D. Electronically signed by: Francisco J Henry M.D, PHD Narrative 04/10/2018 1:56 PM DEVELOPMENTAL PSYCHOLOGIST EXAMINATION: CT of the neck with contrast HISTORY: 67-year-old man with small lymphocytic lymphoma. TECHNIQUE: CT of the neck was performed according to standard protocol after the uneventful administration of intravenous contrast. Contrast information: 50 mL Optiray-350 COMPARISON: 12/20/2016. FINDINGS: There has been interval increase in size of multiple cervical lymph nodes, involving all levels, as well as supraclavicular and mediastinal lymphadenopathy. ??For reference, there is a 2.5 cm conglomeration of left level 2B lymph nodes (series 4, image 43) which previously measured 2.2 cm and a 2.2 cm right level 1B lymph node (series 4, image 49) which previously measured 2.0 cm. The muscles of the neck are normal. Vessels of the neck demonstrate normal course and caliber. Fascial planes are preserved and the deep spaces of the neck are normal. The visualized airway is widely patent. ??There is an unchanged left hypoattenuating thyroid nodule. The base of the skull and the temporal bones are normal. Limited views of the brain including the cerebellum and brainstem are normal. The limited view of the [place] is unremarkable. The visualized portions of the orbits are normal. There are unchanged findings of anterior discectomy and instrumented spinal fusion at C5-C6 without evidence of hardware complication. There is multilevel degenerative changes throughout the cervical spine. ??Limited examination of the superior thorax shows upper mediastinal lymphadenopathy, more fully evaluated on CT of the chest, abdomen and pelvis performed the same date. 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 TECHNIQUE: CT of the neck was performed according to standard protocol after the uneventful administration of intravenous contrast. Contrast information: 50 mL Optiray-350 COMPARISON: 12/20/2016. FINDINGS: There has been interval increase in size of multiple cervical lymph nodes, involving all levels, as well as supraclavicular and mediastinal lymphadenopathy. For reference, there is a 2.5 cm conglomeration of left level 2B lymph nodes (series 4, image 43) which previously measured 2.2 cm and a 2.2 cm right level 1B lymph node (series 4, image 49) which previously measured 2.0 cm. The muscles of the neck are normal. Vessels of the neck demonstrate normal course and caliber. Fascial planes are preserved and the deep spaces of the neck are normal. The visualized airway is widely patent. There is an unchanged left hypoattenuating thyroid nodule. The base of the skull and the temporal bones are normal. Limited views of the brain including the cerebellum and brainstem are normal. The limited view of the [place] is unremarkable. The visualized portions of the orbits are normal. There are unchanged findings of anterior discectomy and instrumented spinal fusion at C5-C6 without evidence of hardware complication. There is multilevel degenerative changes throughout the cervical spine. Limited examination of the superior thorax shows upper mediastinal lymphadenopathy, more fully evaluated on CT of the chest, abdomen and pelvis performed the same date. IMPRESSION: Interval worsened cervical lymphadenopathy involving all stations of the neck. Dictated by: Eleonora Weaver M.D. Electronically signed by: Francisco J Henry M.D, PHD Burt Dos Santos MD PhD IMG CT PROCEDURES Fi nal Result * CT Chest Abdomen Pelvis W Contrast (04/10/2018 8:43 AM DEVELOPMENTAL PSYCHOLOGIST) Anatomical Region Laterality Modality Body N/A Computed Tomogra phy 04/10/2018 10:1 4 AM DEVELOPMENTAL PSYCHOLOGIST Impressions 04/10/2018 11:49 AM DEVELOPMENTAL PSYCHOLOGIST 1. ??Worsening lymphadenopathy throughout the abdomen and pelvis along with worsening diffuse mesenteric stranding and masslike mesenteric thickening extending into the right lower abdomen and into the paracolic gutters is compatible with disease progression. 2. ??Interval splenic enlargement compared to the prior study. Dictated by: Azam Farooq M.D. Electronically signed by: Dory Saunders M.D. Narrative 04/10/2018 11:49 AM DEVELOPMENTAL PSYCHOLOGIST EXAMINATION: ??Computed tomography of the chest, abdomen [...] PROCEDURES Fi nal Result * POCT creatinine for contrast evaluation (04/10/2018 8:32 AM DEVELOPMENTAL PSYCHOLOGIST) Creatinine POC 1.1 0.7 - 1.3 mg/dL [facility] Blood specimen (specimen) 04/10/2018 8:32 AM DEVELOPMENTAL PSYCHOLOGIST 04/10/2018 8:32 AM DEVELOPMENTAL PSYCHOLOGIST Narrative [facility] - 04/10/2018 8:51 AM DEVELOPMENTAL PSYCHOLOGIST Burt Dos Santos MD PhD POINT OF CARE TEST O RDERABLES Final Result [facility] Department [place] [address] documented in this encounter Visit Diagnoses Diagnosis Lymphoma, small lymphocytic (HCC) Lymphosarcoma, unspecified site, extranodal and solid organ sites documented in this encounter Administered Medications Inactive Administered Medications - up to 3 most recent administrations Medication Order MAR Action Action Date Dose Rate Site ioversol (OPTIRAY 350) syringe syringe 100 mL 100 mL, intravenous, Once in imaging, contrast, Starting on [place] 04/10/18 at 0844, For 1 dose Given 04/10/2018 8:49 AM DEVELOPMENTAL PSYCHOLOGIST 100 mL ioversol (OPTIRAY 350) syringe syringe 50 mL 50 mL, intravenous, Once in imaging, contrast, Starting on [place] 04/10/18 at 0847, For 1 dose Given 04/10/2018 8:55 AM DEVELOPMENTAL PSYCHOLOGIST 50 mL documented in this encounter Additional Health Concerns Infection Onset Date Last Indicated Resolved Time C. difficile Comment:Backloaded December 21, 2010 09/21/2010 09/21/2010 documented as of this encounter Care Teams Business English Instructor Relationship Specialty Start Date End Date Lenin Ventura MD [address] [facility] [address] PCP - General 07/06/16 Lenin Ventura MD [address] [facility] [address] 07/06/16 documented as of this encounter
--- OUTSIDE RECORDS SUMMARY | 2024-02-22 08:34 | XMS_ITS | Encounter Summary ---
Author Organization [facility] Facility Care Team Providers Care Research Physician Name Role Phone Unavailable Primary Care Provider Unavailabl e Encounter Details Date Type Department Care Team (Late st Contact Info) Description 03/30/2014 - 03/03/2015 11:59 PM MANDOLIN REPAIR PERSON Hospital Encounter [facility] Burt Gomez MD PhD [address] DIV [employer], [address] [place] [address] Other non-follicular lymphoma, lymph nodes of multiple sites (HCC); Encounter for examination for normal comparison or control in clinical research program Social History Tobacco Use Types Packs/Day Years Used Date Smoking Tobacco: Never Assessed Sex and Gender Information Value Date Recorded Sex Assigned at Not on file Legal Sex Male 9:45 AM MANDOLIN REPAIR PERSON Gender Identity Not on file Sexual Orientation Not on file documented as of this encounter Plan of Treatment Not on file documented as of this encounter Procedures Procedure Name Priority Date/Time Associated Diagnosis Comments DISCHARGE LABORATORY CUMULATIVE REPORT 03/03/2015 BLOOD CELL COUNT Routine 02/18/2015 9:50 AM MANDOLIN REPAIR PERSON SERUM LACTATE DEHYDROGENASE (LDH) Routine 02/16/2015 9:20 AM MANDOLIN REPAIR PERSON PLASMA COMPREHENSIVE METABOLIC PANEL Routine 02/16/2015 9:20 AM MANDOLIN REPAIR PERSON BLOOD CELL COUNT Routine 02/16/2015 9:19 AM MANDOLIN REPAIR PERSON BLOOD CELL COUNT Routine 01/10/2015 9:04 AM MANDOLIN REPAIR PERSON BLOOD CELL COUNT Routine 01/06/2015 9:44 AM MANDOLIN REPAIR PERSON SERUM LACTATE DEHYDROGENASE (LDH) Routine 01/05/2015 7:48 AM MANDOLIN REPAIR PERSON PLASMA COMPREHENSIVE METABOLIC PANEL Routine 01/05/2015 7:48 AM MANDOLIN REPAIR PERSON BLOOD CELL COUNT Routine 01/05/2015 7:48 AM MANDOLIN REPAIR PERSON BLOOD CELL COUNT Routine 12/30/2014 8:13 AM CDT SERUM LACTATE DEHYDROGENASE (LDH) Routine 12/30/2014 8:05 AM CDT PLASMA COMPREHENSIVE METABOLIC PANEL Routine 12/30/2014 8:05 AM CDT BLOOD CELL COUNT Routine 12/23/2014 8:08 AM CDT SERUM LACTATE DEHYDROGENASE (LDH) Routine 12/23/2014 8:07 AM CDT PLASMA COMPREHENSIVE METABOLIC PANEL Routine 12/23/2014 8:07 AM CDT SERUM LACTATE DEHYDROGENASE (LDH) Routine 12/16/2014 8:26 AM CDT PLASMA COMPREHENSIVE METABOLIC PANEL Routine 12/16/2014 8:26 AM CDT BLOOD CELL COUNT Routine 12/16/2014 8:20 AM CDT SERUM LACTATE DEHYDROGENASE (LDH) Routine 12/15/2014 8:22 AM CDT PLASMA COMPREHENSIVE METABOLIC PANEL Routine 12/15/2014 8:22 AM CDT BLOOD CELL COUNT Routine 12/15/2014 8:15 AM CDT BLOOD CELL COUNT Routine 12/07/2014 8:02 AM CDT SERUM LACTATE DEHYDROGENASE (LDH) Routine 12/07/2014 7:55 AM CDT PLASMA COMPREHENSIVE METABOLIC PANEL Routine 12/07/2014 7:55 AM CDT SERUM LACTATE DEHYDROGENASE (LDH) Routine 11/25/2014 9:22 AM CDT PLASMA COMPREHENSIVE METABOLIC PANEL Routine 11/25/2014 9:22 AM CDT BLOOD CELL COUNT Routine 11/25/2014 9:20 AM CDT SERUM LACTATE DEHYDROGENASE (LDH) Routine 06/10/2014 9:55 AM CDT PLASMA COMPREHENSIVE METABOLIC PANEL Routine 06/10/2014 9:55 AM CDT BLOOD CELL COUNT Routine 06/10/2014 9:54 AM CDT documented in this encounter Results * DISCHARGE LABORATORY CUMULATIVE REPORT (03/03/2015) Narrative 03/03/2015 Ordered by an unspecified provider. us Historical Provider LAB BLOOD ORDERABLES [place] l Result * (ABNORMAL) Blood cell count [CBC] panel, 7 CAM (02/18/2015 9:50 AM MANDOLIN REPAIR PERSON) WBC 4.6 3.8 - 9.8 K/cumm HISTORICAL RESULTS Rdw 13.0 11.8 - 14.6 % HISTORICAL RESULTS RBC 4.57 4.50 - 5.70 M/cumm HISTORICAL RESULTS Platelets 184 140 - 440 K/cumm HISTORICAL RESULTS Hgb 13.8 13.8 - 17.2 g/dl HISTORICAL RESULTS MPV 9.5 6.8 - 10.4 fl HISTORICAL RESULTS Hct 41.4 40.7 - 50.3 % HISTORICAL RESULTS Neutrophils 70.8 38.7 - 74.5 % HISTORICAL RESULTS MCV 90.6 80.0 - 97.6 fl HISTORICAL RESULTS Lymphocytes 16.6(L) 20.0 - 54.3 % HISTORICAL RESULTS MCH 30.2 26.7 - 33.7 pg HISTORICAL RESULTS Monos 11.3 4.3 - 13.5 % HISTORICAL RESULTS MCHC 33.3 32.7 - 35.5 g/dl HISTORICAL RESULTS Eosinophils 0.8 0.0 - 6.0 % HISTORICAL RESULTS Basophils 0.5 0.0 - 3.0 % HISTORICAL RESULTS Neutrophils, abs 3.2 1.8 - 6.6 K/cumm HISTORICAL RESULTS Lymphocytes, abs 0.8(L) 1.2 - 3.3 K/cumm HISTORICAL RESULTS Monocytes, absolute 0.5 0.2 - 1.2 K/cumm HISTORICAL RESULTS Eosinophils, abs 0.0 0.0 - 0.5 K/cumm HISTORICAL RESULTS Basophils, abs 0.0 0.0 - 0.2 K/cumm HISTORICAL RESULTS Blood specimen (specimen) 02/18/2015 9:50 AM MANDOLIN REPAIR PERSON Burt Dos Santos MD PhD LAB BLOOD ORDERABLES Final Result Performing Organization Address City/[facility] Co de Phone Number HISTORICAL RESULTS * Plasma comprehensive metabolic panel (02/16/2015 9:20 AM MANDOLIN REPAIR PERSON) Sodium 140 135 - 145 mmol/L HISTORICAL RESULTS K, pl 4.7 3.3 - 4.9 mmol/L HISTORICAL RESULTS Chloride 103 97 - 110 mmol/L HISTORICAL RESULTS CO2 31 22 - 32 mmol/L HISTORICAL RESULTS A. gap 6 0 - 16 mmol/L HISTORICAL RESULTS Glucose 101 70 - 199 mg/dl HISTORICAL RESULTS BUN 20 8 - 25 mg/dl HISTORICAL RESULTS Creatinine 0.81 0.70 - 1.30 mg/dl HISTORICAL RESULTS Calcium 9.6 8.6 - 10.3 mg/dl HISTORICAL RESULTS Protein, pl 6.7 6.5 - 8.5 g/dl HISTORICAL RESULTS Alb 4.5 3.6 - 5.0 g/dl HISTORICAL RESULTS Bilirubin 0.3 0.3 - 1.1 mg/dl HISTORICAL RESULTS Alk phos 84 38 - 126 Units/L HISTORICAL RESULTS AST 26 11 - 47 Units/L HISTORICAL RESULTS ALT 41 7 - 53 Units/L HISTORICAL RESULTS Plasma 02/16/2015 9:20 AM MANDOLIN REPAIR PERSON Burt Dos Santos MD PhD LAB BLOOD ORDERABLES Final Result HISTORICAL RESULTS * Serum lactate dehydrogenase (LDH) (02/16/2015 9:20 AM MANDOLIN REPAIR PERSON) Lactate dehydrogenase (LDH) 230 100 - 250 Units/L HISTORICAL RESULTS Serum 02/16/2015 9:20 AM MANDOLIN REPAIR PERSON Burt Dos Santos MD PhD LAB BLOOD ORDERABLES Final Result Performing Organization Address City/State/[facility] Co de Phone Number HISTORICAL RESULTS * (ABNORMAL) Blood cell count [CBC] panel, 7 CAM (02/16/2015 9:19 AM MANDOLIN REPAIR PERSON) WBC 4.7 3.8 - 9.8 K/cumm HISTORICAL RESULTS RBC 4.56 4.50 - 5.70 M/cumm HISTORICAL RESULTS Hgb 13.9 13.8 - 17.2 g/dl HISTORICAL RESULTS Hct 41.2 40.7 - 50.3 % HISTORICAL RESULTS MCV 90.4 80.0 - 97.6 fl HISTORICAL RESULTS MCH 30.4 26.7 - 33.7 pg HISTORICAL RESULTS MCHC 33.6 32.7 - 35.5 g/dl HISTORICAL RESULTS Rdw 13.0 11.8 - 14.6 % HISTORICAL RESULTS Platelets 199 140 - 440 K/cumm HISTORICAL RESULTS MPV 9.1 6.8 - 10.4 fl HISTORICAL RESULTS Neutrophils 52.0 38.7 - 74.5 % HISTORICAL RESULTS Lymphocytes 32.1 20.0 - 54.3 % HISTORICAL RESULTS Monos 13.8(H) 4.3 - 13.5 % HISTORICAL RESULTS Eosinophils 1.2 0.0 - 6.0 % HISTORICAL RESULTS Basophils 0.9 0.0 - 3.0 % HISTORICAL RESULTS Neutrophils, abs 2.4 1.8 - 6.6 K/cumm HISTORICAL RESULTS Lymphocytes, abs 1.5 1.2 - 3.3 K/cumm HISTORICAL RESULTS Monocytes, absolute 0.6 0.2 - 1.2 K/cumm HISTORICAL RESULTS Eosinophils, abs 0.1 0.0 - 0.5 K/cumm HISTORICAL RESULTS Basophils, abs 0.0 0.0 - 0.2 K/cumm HISTORICAL RESULTS Blood specimen (specimen) 02/16/2015 9:19 AM MANDOLIN REPAIR PERSON Burt Dos Santos MD PhD LAB BLOOD ORDERABLES Final Result HISTORICAL RESULTS * (ABNORMAL) Blood cell count [CBC] panel, 7 CAM (01/10/2015 9:04 AM MANDOLIN REPAIR PERSON) WBC 4.3 3.8 - 9.8 K/cumm HISTORICAL RESULTS MCV 92.1 80.0 - 97.6 fl HISTORICAL RESULTS RBC 4.22(L) 4.50 - 5.70 M/cumm HISTORICAL RESULTS MCH 30.6 26.7 - 33.7 pg HISTORICAL RESULTS Hgb 12.9(L) 13.8 - 17.2 g/dl HISTORICAL RESULTS MCHC 33.2 32.7 - 35.5 g/dl HISTORICAL RESULTS Hct 38.9(L) 40.7 - 50.3 % HISTORICAL RESULTS Rdw 13.4 11.8 - 14.6 % HISTORICAL RESULTS Platelets 246 140 - 440 K/cumm HISTORICAL RESULTS MPV 9.0 6.8 - 10.4 fl HISTORICAL RESULTS Neutrophils 48.0 38.7 - 74.5 % HISTORICAL RESULTS Lymphocytes 37.3 20.0 - 54.3 % HISTORICAL RESULTS Monos 12.6 4.3 - 13.5 % HISTORICAL RESULTS Eosinophils 1.1 0.0 - 6.0 % HISTORICAL RESULTS Basophils 1.0 0.0 - 3.0 % HISTORICAL RESULTS Neutrophils, abs 2.0 1.8 - 6.6 K/cumm HISTORICAL RESULTS Lymphocytes, abs 1.6 1.2 - 3.3 K/cumm HISTORICAL RESULTS Monocytes, absolute 0.5 0.2 - 1.2 K/cumm HISTORICAL RESULTS Eosinophils, abs 0.0 0.0 - 0.5 K/cumm HISTORICAL RESULTS Basophils, abs 0.0 0.0 - 0.2 K/cumm HISTORICAL RESULTS Blood specimen (specimen) 01/10/2015 9:04 AM MANDOLIN REPAIR PERSON Burt Dos Santos MD PhD LAB BLOOD ORDERABLES Final Result HISTORICAL RESULTS * (ABNORMAL) Blood cell count [CBC] panel, 7 CAM (01/06/2015 9:44 AM MANDOLIN REPAIR PERSON) WBC 3.1(L) 3.8 - 9.8 K/cumm HISTORICAL RESULTS RBC 4.07(L) 4.50 - 5.70 M/cumm HISTORICAL RESULTS Hgb 12.2(L) 13.8 - 17.2 g/dl HISTORICAL RESULTS Hct 37.8(L) 40.7 - 50.3 % HISTORICAL RESULTS MCV 92.7 80.0 - 97.6 fl HISTORICAL RESULTS MCH 30.0 26.7 - 33.7 pg HISTORICAL RESULTS MCHC 32.4(L) 32.7 - 35.5 g/dl HISTORICAL RESULTS Rdw 13.4 11.8 - 14.6 % HISTORICAL RESULTS Platelets 236 140 - 440 K/cumm HISTORICAL RESULTS MPV 8.7 6.8 - 10.4 fl HISTORICAL RESULTS Neutrophils 47.5 38.7 - 74.5 % HISTORICAL RESULTS Lymphocytes 38.9 20.0 - 54.3 % HISTORICAL RESULTS Monos 11.4 4.3 - 13.5 % HISTORICAL RESULTS Eosinophils 1.0 0.0 - 6.0 % HISTORICAL RESULTS Basophils 1.2 0.0 - 3.0 % HISTORICAL RESULTS Neutrophils, abs 1.5(L) 1.8 - 6.6 K/cumm HISTORICAL RESULTS Lymphocytes, abs 1.2 1.2 - 3.3 K/cumm HISTORICAL RESULTS Monocytes, absolute 0.4 0.2 - 1.2 K/cumm HISTORICAL RESULTS Eosinophils, abs 0.0 0.0 - 0.5 K/cumm HISTORICAL RESULTS Basophils, abs 0.0 0.0 - 0.2 K/cumm HISTORICAL RESULTS Blood specimen (specimen) 01/06/2015 9:44 AM MANDOLIN REPAIR PERSON Burt Dos Santos MD PhD LAB BLOOD ORDERABLES Final Result HISTORICAL RESULTS * (ABNORMAL) Plasma comprehensive metabolic panel (01/05/2015 7:48 AM MANDOLIN REPAIR PERSON) Sodium 138 135 - 145 mmol/L HISTORICAL RESULTS K, pl 5.1(H) 3.3 - 4.9 mmol/L HISTORICAL RESULTS Chloride 102 97 - 110 mmol/L HISTORICAL RESULTS CO2 28 22 - 32 mmol/L HISTORICAL RESULTS A. gap 8 0 - 16 mmol/L HISTORICAL RESULTS Glucose 179 70 - 199 mg/dl HISTORICAL RESULTS BUN 17 8 - 25 mg/dl HISTORICAL RESULTS Creatinine 0.84 0.70 - 1.30 mg/dl HISTORICAL RESULTS Calcium 9.8 8.6 - 10.3 mg/dl HISTORICAL RESULTS Protein, pl 6.5 6.5 - 8.5 g/dl HISTORICAL RESULTS Alb 4.2 3.6 - 5.0 g/dl HISTORICAL RESULTS Bilirubin 0.5 0.3 - 1.1 mg/dl HISTORICAL RESULTS Alk phos 77 38 - 126 Units/L HISTORICAL RESULTS AST 24 11 - 47 Units/L HISTORICAL RESULTS ALT 38 7 - 53 Units/L HISTORICAL RESULTS Plasma 01/05/2015 7:48 AM MANDOLIN REPAIR PERSON Burt Dos Santos MD PhD LAB BLOOD ORDERABLES Final Result Performing Organization Address [facility] de Phone Number HISTORICAL RESULTS * (ABNORMAL) Serum lactate dehydrogenase (LDH) (01/05/2015 7:48 AM MANDOLIN REPAIR PERSON) Lactate dehydrogenase (LDH) 300(H) 100 - 250 Units/L HISTORICAL RESULTS Serum 01/05/2015 7:48 AM MANDOLIN REPAIR PERSON Burt Dos Santos MD PhD LAB BLOOD ORDERABLES Final Result Performing Organization Address [facility] de Phone Number HISTORICAL RESULTS * (ABNORMAL) Blood cell count [CBC] panel, 7 CAM (01/05/2015 7:48 AM MANDOLIN REPAIR PERSON) WBC 4.4 3.8 - 9.8 K/cumm HISTORICAL RESULTS RBC 4.13(L) 4.50 - 5.70 M/cumm HISTORICAL RESULTS Hgb 12.6(L) 13.8 - 17.2 g/dl HISTORICAL RESULTS Hct 38.5(L) 40.7 - 50.3 % HISTORICAL RESULTS MCV 93.2 80.0 - 97.6 fl HISTORICAL RESULTS MCH 30.4 26.7 - 33.7 pg HISTORICAL RESULTS MCHC 32.6(L) 32.7 - 35.5 g/dl HISTORICAL RESULTS Rdw 13.2 11.8 - 14.6 % HISTORICAL RESULTS Platelets 236 140 - 440 K/cumm HISTORICAL RESULTS MPV 8.6 6.8 - 10.4 fl HISTORICAL RESULTS Neutrophils 44.9 38.7 - 74.5 % HISTORICAL RESULTS Lymphocytes 42.0 20.0 - 54.3 % HISTORICAL RESULTS Monos 11.6 4.3 - 13.5 % HISTORICAL RESULTS Eosinophils 0.7 0.0 - 6.0 % HISTORICAL RESULTS Basophils 0.8 0.0 - 3.0 % HISTORICAL RESULTS Neutrophils, abs 2.0 1.8 - 6.6 K/cumm HISTORICAL RESULTS Lymphocytes, abs 1.9 1.2 - 3.3 K/cumm HISTORICAL RESULTS Monocytes, absolute 0.5 0.2 - 1.2 K/cumm HISTORICAL RESULTS Eosinophils, abs 0.0 0.0 - 0.5 K/cumm HISTORICAL RESULTS Basophils, abs 0.0 0.0 - 0.2 K/cumm HISTORICAL RESULTS Blood specimen (specimen) 01/05/2015 7:48 AM MANDOLIN REPAIR PERSON Burt Dos Santos MD PhD LAB BLOOD ORDERABLES Final Result HISTORICAL RESULTS * (ABNORMAL) Blood cell count [CBC] panel, 7 CAM (12/30/2014 8:13 AM CDT) WBC 3.9 3.8 - 9.8 K/cumm HISTORICAL RESULTS RBC 4.06(L) 4.50 - 5.70 M/cumm HISTORICAL RESULTS Hgb 12.5(L) 13.8 - 17.2 g/dl HISTORICAL RESULTS Hct 38.0(L) 40.7 - 50.3 % HISTORICAL RESULTS MCV 93.6 80.0 - 97.6 fl HISTORICAL RESULTS MCH 30.7 26.7 - 33.7 pg HISTORICAL RESULTS MCHC 32.8 32.7 - 35.5 g/dl HISTORICAL RESULTS Rdw 13.6 11.8 - 14.6 % HISTORICAL RESULTS Platelets 205 140 - 440 K/cumm HISTORICAL RESULTS MPV 8.6 6.8 - 10.4 fl HISTORICAL RESULTS Neutrophils 53.2 38.7 - 74.5 % HISTORICAL RESULTS Lymphocytes 34.0 20.0 - 54.3 % HISTORICAL RESULTS Monos 10.2 4.3 - 13.5 % HISTORICAL RESULTS Eosinophils 1.4 0.0 - 6.0 % HISTORICAL RESULTS Basophils 1.2 0.0 - 3.0 % HISTORICAL RESULTS Neutrophils, abs 2.1 1.8 - 6.6 K/cumm HISTORICAL RESULTS Lymphocytes, abs 1.3 1.2 - 3.3 K/cumm HISTORICAL RESULTS Monocytes, absolute 0.4 0.2 - 1.2 K/cumm HISTORICAL RESULTS Eosinophils, abs 0.1 0.0 - 0.5 K/cumm HISTORICAL RESULTS Basophils, abs 0.0 0.0 - 0.2 K/cumm HISTORICAL RESULTS Blood specimen (specimen) 12/30/2014 8:13 AM CDT Burt Dos Santos MD PhD LAB BLOOD ORDERABLES Final Result HISTORICAL RESULTS * (ABNORMAL) Plasma comprehensive metabolic panel (12/30/2014 8:05 AM CDT) Sodium 138 135 - 145 mmol/L HISTORICAL RESULTS K, pl 4.8 3.3 - 4.9 mmol/L HISTORICAL RESULTS Chloride 102 97 - 110 mmol/L HISTORICAL RESULTS CO2 28 22 - 32 mmol/L HISTORICAL RESULTS A. gap 9 0 - 16 mmol/L HISTORICAL RESULTS Glucose 226(H) 70 - 199 mg/dl HISTORICAL RESULTS BUN 16 8 - 25 mg/dl HISTORICAL RESULTS Creatinine 0.79 0.70 - 1.30 mg/dl HISTORICAL RESULTS Calcium 9.2 8.6 - 10.3 mg/dl HISTORICAL RESULTS Protein, pl 6.5 6.5 - 8.5 g/dl HISTORICAL RESULTS Alb 4.2 3.6 - 5.0 g/dl HISTORICAL RESULTS Bilirubin 0.3 0.3 - 1.1 mg/dl HISTORICAL RESULTS Alk phos 97 38 - 126 Units/L HISTORICAL RESULTS AST 26 11 - 47 Units/L HISTORICAL RESULTS ALT 43 7 - 53 Units/L HISTORICAL RESULTS Plasma 12/30/2014 8:05 AM CDT Burt Dos Santos MD PhD LAB BLOOD ORDERABLES Final Result HISTORICAL RESULTS * (ABNORMAL) Serum lactate dehydrogenase (LDH) (12/30/2014 8:05 AM CDT) Lactate dehydrogenase (LDH) 329(H) 100 - 250 Units/L HISTORICAL RESULTS Serum 12/30/2014 8:05 AM CDT Burt Dos Santos MD PhD LAB BLOOD ORDERABLES Final Result HISTORICAL RESULTS * (ABNORMAL) Blood cell count [CBC] panel, 7 CAM (12/23/2014 8:08 AM CDT) WBC 6.3 3.8 - 9.8 K/cumm HISTORICAL RESULTS RBC 4.02(L) 4.50 - 5.70 M/cumm HISTORICAL RESULTS Hgb 12.5(L) 13.8 - 17.2 g/dl HISTORICAL RESULTS Hct 37.3(L) 40.7 - 50.3 % HISTORICAL RESULTS MCV 92.8 80.0 - 97.6 fl HISTORICAL RESULTS MCH 31.0 26.7 - 33.7 pg HISTORICAL RESULTS MCHC 33.4 32.7 - 35.5 g/dl HISTORICAL RESULTS Rdw 13.5 11.8 - 14.6 % HISTORICAL RESULTS Platelets 174 140 - 440 K/cumm HISTORICAL RESULTS MPV 9.1 6.8 - 10.4 fl HISTORICAL RESULTS Neutrophils 64.9 38.7 - 74.5 % HISTORICAL RESULTS Lymphocytes 26.5 20.0 - 54.3 % HISTORICAL RESULTS Monos 7.3 4.3 - 13.5 % HISTORICAL RESULTS Eosinophils 0.9 0.0 - 6.0 % HISTORICAL RESULTS Basophils 0.4 0.0 - 3.0 % HISTORICAL RESULTS Neutrophils, abs 4.1 1.8 - 6.6 K/cumm HISTORICAL RESULTS Lymphocytes, abs 1.7 1.2 - 3.3 K/cumm HISTORICAL RESULTS Monocytes, absolute 0.5 0.2 - 1.2 K/cumm HISTORICAL RESULTS Eosinophils, abs 0.1 0.0 - 0.5 K/cumm HISTORICAL RESULTS Basophils, abs 0.0 0.0 - 0.2 K/cumm HISTORICAL RESULTS Blood specimen (specimen) 12/23/2014 8:08 AM CDT Burt Dos Santos MD PhD LAB BLOOD ORDERABLES Final Result HISTORICAL RESULTS * (ABNORMAL) Plasma comprehensive metabolic panel (12/23/2014 8:07 AM CDT) Sodium 138 135 - 145 mmol/L HISTORICAL RESULTS K, pl 4.8 3.3 - 4.9 mmol/L HISTORICAL RESULTS Chloride 101 97 - 110 mmol/L HISTORICAL RESULTS CO2 28 22 - 32 mmol/L HISTORICAL RESULTS A. gap 9 0 - 16 mmol/L HISTORICAL RESULTS Glucose 221(H) 70 - 199 mg/dl HISTORICAL RESULTS BUN 17 8 - 25 mg/dl HISTORICAL RESULTS Creatinine 0.83 0.70 - 1.30 mg/dl HISTORICAL RESULTS Calcium 9.2 8.6 - 10.3 mg/dl HISTORICAL RESULTS Protein, pl 6.3(L) 6.5 - 8.5 g/dl HISTORICAL RESULTS Alb 4.1 3.6 - 5.0 g/dl HISTORICAL RESULTS Bilirubin 0.6 0.3 - 1.1 mg/dl HISTORICAL RESULTS Alk phos 80 38 - 126 Units/L HISTORICAL RESULTS AST 31 11 - 47 Units/L HISTORICAL RESULTS ALT 75(H) 7 - 53 Units/L HISTORICAL RESULTS Plasma 12/23/2014 8:07 AM CDT Burt Dos Santos MD PhD LAB BLOOD ORDERABLES Final Result Performing Organization Address [facility] de Phone Number HISTORICAL RESULTS * (ABNORMAL) Serum lactate dehydrogenase (LDH) (12/23/2014 8:07 AM CDT) Lactate dehydrogenase (LDH) 311(H) 100 - 250 Units/L HISTORICAL RESULTS Serum 12/23/2014 8:07 AM CDT Burt Dos Santos MD PhD LAB BLOOD ORDERABLES Final Result Performing Organization Address City/[facility] de Phone Number HISTORICAL RESULTS * (ABNORMAL) Plasma comprehensive metabolic panel (12/16/2014 8:26 AM CDT) Sodium 135 135 - 145 mmol/L HISTORICAL RESULTS K, pl 4.5 3.3 - 4.9 mmol/L HISTORICAL RESULTS Chloride 101 97 - 110 mmol/L HISTORICAL RESULTS CO2 24 22 - 32 mmol/L HISTORICAL RESULTS A. gap 10 0 - 16 mmol/L HISTORICAL RESULTS Glucose 268(H) 70 - 199 mg/dl HISTORICAL RESULTS BUN 20 8 - 25 mg/dl HISTORICAL RESULTS Creatinine 0.70 0.70 - 1.30 mg/dl HISTORICAL RESULTS Calcium 9.3 8.6 - 10.3 mg/dl HISTORICAL RESULTS Protein, pl 6.4(L) 6.5 - 8.5 g/dl HISTORICAL RESULTS Alb 4.1 3.6 - 5.0 g/dl HISTORICAL RESULTS Bilirubin 0.3 0.3 - 1.1 mg/dl HISTORICAL RESULTS Alk phos 71 38 - 126 Units/L HISTORICAL RESULTS AST 34 11 - 47 Units/L HISTORICAL RESULTS ALT 43 7 - 53 Units/L HISTORICAL RESULTS Plasma 12/16/2014 8:26 AM CDT Tammy Bentley MD LAB BLOOD ORDERABLES Final Result Performing Organization Address City/[facility]/ZIP Co de Phone Number HISTORICAL RESULTS * (ABNORMAL) Serum lactate dehydrogenase (LDH) (12/16/2014 8:26 AM CDT) Lactate dehydrogenase (LDH) 426(H) 100 - 250 Units/L HISTORICAL RESULTS Serum 12/16/2014 8:26 AM CDT Tammy Bentley MD LAB BLOOD ORDERABLES Final Result HISTORICAL RESULTS * (ABNORMAL) Blood cell count [CBC] panel, 7 CAM (12/16/2014 8:20 AM CDT) WBC 8.5 3.8 - 9.8 K/cumm HISTORICAL RESULTS RBC 4.05(L) 4.50 - 5.70 M/cumm HISTORICAL RESULTS Hgb 12.4(L) 13.8 - 17.2 g/dl HISTORICAL RESULTS Hct 38.6(L) 40.7 - 50.3 % HISTORICAL RESULTS MCV 95.3 80.0 - 97.6 fl HISTORICAL RESULTS MCH 30.7 26.7 - 33.7 pg HISTORICAL RESULTS MCHC 32.2(L) 32.7 - 35.5 g/dl HISTORICAL RESULTS Rdw 13.7 11.8 - 14.6 % HISTORICAL RESULTS Platelets 175 140 - 440 K/cumm HISTORICAL RESULTS MPV 9.7 6.8 - 10.4 fl HISTORICAL RESULTS Neutrophils 86.4(H) 38.7 - 74.5 % HISTORICAL RESULTS Lymphocytes 10.0(L) 20.0 - 54.3 % HISTORICAL RESULTS Monos 2.9(L) 4.3 - 13.5 % HISTORICAL RESULTS Eosinophils 0.1 0.0 - 6.0 % HISTORICAL RESULTS Basophils 0.6 0.0 - 3.0 % HISTORICAL RESULTS Neutrophils, abs 7.4(H) 1.8 - 6.6 K/cumm HISTORICAL RESULTS Lymphocytes, abs 0.9(L) 1.2 - 3.3 K/cumm HISTORICAL RESULTS Monocytes, absolute 0.2 0.2 - 1.2 K/cumm HISTORICAL RESULTS Eosinophils, abs 0.0 0.0 - 0.5 K/cumm HISTORICAL RESULTS Basophils, abs 0.1 0.0 - 0.2 K/cumm HISTORICAL RESULTS Blood specimen (specimen) 12/16/2014 8:20 AM CDT us Tammy Bentley MD LAB BLOOD ORDERABLES Final Result HISTORICAL RESULTS * (ABNORMAL) Plasma comprehensive metabolic panel (12/15/2014 8:22 AM CDT) Sodium 141 135 - 145 mmol/L HISTORICAL RESULTS K, pl 4.9 3.3 - 4.9 mmol/L HISTORICAL RESULTS Chloride 103 97 - 110 mmol/L HISTORICAL RESULTS CO2 28 22 - 32 mmol/L HISTORICAL RESULTS A. gap 10 0 - 16 mmol/L HISTORICAL RESULTS Glucose 168 70 - 199 mg/dl HISTORICAL RESULTS BUN 19 8 - 25 mg/dl HISTORICAL RESULTS Creatinine 0.76 0.70 - 1.30 mg/dl HISTORICAL RESULTS Calcium 9.6 8.6 - 10.3 mg/dl HISTORICAL RESULTS Protein, pl 6.3(L) 6.5 - 8.5 g/dl HISTORICAL RESULTS Alb 4.1 3.6 - 5.0 g/dl HISTORICAL RESULTS Bilirubin 0.4 0.3 - 1.1 mg/dl HISTORICAL RESULTS Alk phos 84 38 - 126 Units/L HISTORICAL RESULTS AST 25 11 - 47 Units/L HISTORICAL RESULTS ALT 44 7 - 53 Units/L HISTORICAL RESULTS Plasma 12/15/2014 8:22 AM CDT Burt Dos Santos MD PhD LAB BLOOD ORDERABLES Final Result HISTORICAL RESULTS * Serum lactate dehydrogenase (LDH) (12/15/2014 8:22 AM CDT) Pathologist [facility] [place] Lactate dehydrogenase (LDH) 224 100 - 250 Units/L HISTORICAL RESULTS Serum 12/15/2014 8:22 AM CDT Burt Dos Santos MD PhD LAB BLOOD ORDERABLES Final Result Performing Organization Address [facility] de Phone Number HISTORICAL RESULTS * (ABNORMAL) Blood cell count [CBC] panel, 7 CAM (12/15/2014 8:15 AM CDT) Pathologist [facility] [place] WBC 7.2 3.8 - 9.8 K/cumm HISTORICAL RESULTS RBC 4.05(L) 4.50 - 5.70 M/cumm HISTORICAL RESULTS Hgb 12.8(L) 13.8 - 17.2 g/dl HISTORICAL RESULTS Hct 38.1(L) 40.7 - 50.3 % HISTORICAL RESULTS MCV 94.0 80.0 - 97.6 fl HISTORICAL RESULTS MCH 31.5 26.7 - 33.7 pg HISTORICAL RESULTS MCHC 33.5 32.7 - 35.5 g/dl HISTORICAL RESULTS Rdw 13.7 11.8 - 14.6 % HISTORICAL RESULTS Platelets 177 140 - 440 K/cumm HISTORICAL RESULTS MPV 8.9 6.8 - 10.4 fl HISTORICAL RESULTS Neutrophils 38.9 38.7 - 74.5 % HISTORICAL RESULTS Lymphocytes 50.8 20.0 - 54.3 % HISTORICAL RESULTS Monos 8.7 4.3 - 13.5 % HISTORICAL RESULTS Eosinophils 1.1 0.0 - 6.0 % HISTORICAL RESULTS Basophils 0.5 0.0 - 3.0 % HISTORICAL RESULTS Neutrophils, abs 2.8 1.8 - 6.6 K/cumm HISTORICAL RESULTS Lymphocytes, abs 3.7(H) 1.2 - 3.3 K/cumm HISTORICAL RESULTS Monocytes, absolute 0.6 0.2 - 1.2 K/cumm HISTORICAL RESULTS Eosinophils, abs 0.1 0.0 - 0.5 K/cumm HISTORICAL RESULTS Basophils, abs 0.0 0.0 - 0.2 K/cumm HISTORICAL RESULTS Blood specimen (specimen) 12/15/2014 8:15 AM CDT Burt Dos Santos MD PhD LAB BLOOD ORDERABLES Final Result HISTORICAL RESULTS * (ABNORMAL) Blood cell count [CBC] panel, 7 CAM (12/07/2014 8:02 AM CDT) WBC 6.7 3.8 - 9.8 K/cumm HISTORICAL RESULTS RBC 4.22(L) 4.50 - 5.70 M/cumm HISTORICAL RESULTS Hgb 13.2(L) 13.8 - 17.2 g/dl HISTORICAL RESULTS Hct 40.3(L) 40.7 - 50.3 % HISTORICAL RESULTS MCV 95.5 80.0 - 97.6 fl HISTORICAL RESULTS MCH 31.2 26.7 - 33.7 pg HISTORICAL RESULTS MCHC 32.7 32.7 - 35.5 g/dl HISTORICAL RESULTS Rdw 13.8 11.8 - 14.6 % HISTORICAL RESULTS Platelets 180 140 - 440 K/cumm HISTORICAL RESULTS MPV 9.6 6.8 - 10.4 fl HISTORICAL RESULTS Neutrophils 36.9(L) 38.7 - 74.5 % HISTORICAL RESULTS Lymphocytes 50.0 20.0 - 54.3 % HISTORICAL RESULTS Monos 11.4 4.3 - 13.5 % HISTORICAL RESULTS Eosinophils 1.2 0.0 - 6.0 % HISTORICAL RESULTS Basophils 0.5 0.0 - 3.0 % HISTORICAL RESULTS Neutrophils, abs 2.5 1.8 - 6.6 K/cumm HISTORICAL RESULTS Lymphocytes, abs 3.4(H) 1.2 - 3.3 K/cumm HISTORICAL RESULTS Monocytes, absolute 0.8 0.2 - 1.2 K/cumm HISTORICAL RESULTS Eosinophils, abs 0.1 0.0 - 0.5 K/cumm HISTORICAL RESULTS Basophils, abs 0.0 0.0 - 0.2 K/cumm HISTORICAL RESULTS Blood specimen (specimen) 12/07/2014 8:02 AM CDT Burt Dos Santos MD PhD LAB BLOOD ORDERABLES Final Result Performing Organization Address [place] Co de Phone Number HISTORICAL RESULTS * Plasma comprehensive metabolic panel (12/07/2014 7:55 AM CDT) Sodium 139 135 - 145 mmol/L HISTORICAL RESULTS K, pl 4.5 3.3 - 4.9 mmol/L HISTORICAL RESULTS Chloride 104 97 - 110 mmol/L HISTORICAL RESULTS CO2 27 22 - 32 mmol/L HISTORICAL RESULTS A. gap 8 0 - 16 mmol/L HISTORICAL RESULTS Glucose 151 70 - 199 mg/dl HISTORICAL RESULTS BUN 20 8 - 25 mg/dl HISTORICAL RESULTS Creatinine 0.74 0.70 - 1.30 mg/dl HISTORICAL RESULTS Calcium 9.4 8.6 - 10.3 mg/dl HISTORICAL RESULTS Protein, pl 6.6 6.5 - 8.5 g/dl HISTORICAL RESULTS Alb 4.3 3.6 - 5.0 g/dl HISTORICAL RESULTS Bilirubin 0.4 0.3 - 1.1 mg/dl HISTORICAL RESULTS Alk phos 98 38 - 126 Units/L HISTORICAL RESULTS AST 26 11 - 47 Units/L HISTORICAL RESULTS ALT 47 7 - 53 Units/L HISTORICAL RESULTS Plasma 12/07/2014 7:55 AM CDT Burt Dos Santos MD PhD LAB BLOOD ORDERABLES Final Result Performing Organization Address [facility] de Phone Number HISTORICAL RESULTS * Serum lactate dehydrogenase (LDH) (12/07/2014 7:55 AM CDT) Lactate dehydrogenase (LDH) 217 100 - 250 Units/L HISTORICAL RESULTS Serum 12/07/2014 7:55 AM CDT Burt Dos Santos MD PhD LAB BLOOD ORDERABLES Final Result Performing Organization Address City/[facility] Co de Phone Number HISTORICAL RESULTS * Plasma comprehensive metabolic panel (11/25/2014 9:22 AM CDT) Sodium 136 135 - 145 mmol/L HISTORICAL RESULTS K, pl 4.8 3.3 - 4.9 mmol/L HISTORICAL RESULTS Chloride 101 97 - 110 mmol/L HISTORICAL RESULTS CO2 28 22 - 32 mmol/L HISTORICAL RESULTS A. gap 7 0 - 16 mmol/L HISTORICAL RESULTS Glucose 120 70 - 199 mg/dl HISTORICAL RESULTS BUN 16 8 - 25 mg/dl HISTORICAL RESULTS Creatinine 0.84 0.70 - 1.30 mg/dl HISTORICAL RESULTS Calcium 9.2 8.6 - 10.3 mg/dl HISTORICAL RESULTS Protein, pl 6.6 6.5 - 8.5 g/dl HISTORICAL RESULTS Alb 4.4 3.6 - 5.0 g/dl HISTORICAL RESULTS Bilirubin 0.5 0.3 - 1.1 mg/dl HISTORICAL RESULTS Alk phos 79 38 - 126 Units/L HISTORICAL RESULTS AST 28 11 - 47 Units/L HISTORICAL RESULTS ALT 47 7 - 53 Units/L HISTORICAL RESULTS Plasma 11/25/2014 9:22 AM CDT Burt Dos Santos MD PhD LAB BLOOD ORDERABLES Final Result Performing Organization Address [place]/[facility] de Phone Number HISTORICAL RESULTS * Serum lactate dehydrogenase (LDH) (11/25/2014 9:22 AM CDT) Lactate dehydrogenase (LDH) 243 100 - 250 Units/L HISTORICAL RESULTS Serum 11/25/2014 9:22 AM CDT Burt Dos Santos MD PhD LAB BLOOD ORDERABLES Final Result Performing Organization Address [facility] de Phone Number HISTORICAL RESULTS * (ABNORMAL) Blood cell count [CBC] panel, 7 CAM (11/25/2014 9:20 AM CDT) WBC 7.2 3.8 - 9.8 K/cumm HISTORICAL RESULTS RBC 4.06(L) 4.50 - 5.70 M/cumm HISTORICAL RESULTS Hgb 12.7(L) 13.8 - 17.2 g/dl HISTORICAL RESULTS Hct 38.2(L) 40.7 - 50.3 % HISTORICAL RESULTS MCV 94.0 80.0 - 97.6 fl HISTORICAL RESULTS MCH 31.2 26.7 - 33.7 pg HISTORICAL RESULTS MCHC 33.2 32.7 - 35.5 g/dl HISTORICAL RESULTS Rdw 13.9 11.8 - 14.6 % HISTORICAL RESULTS Platelets 165 140 - 440 K/cumm HISTORICAL RESULTS MPV 8.9 6.8 - 10.4 fl HISTORICAL RESULTS Neutrophils 41.2 38.7 - 74.5 % HISTORICAL RESULTS Lymphocytes 46.0 20.0 - 54.3 % HISTORICAL RESULTS Monos 11.4 4.3 - 13.5 % HISTORICAL RESULTS Eosinophils 1.0 0.0 - 6.0 % HISTORICAL RESULTS Basophils 0.4 0.0 - 3.0 % HISTORICAL RESULTS Neutrophils, abs 3.0 1.8 - 6.6 K/cumm HISTORICAL RESULTS Lymphocytes, abs 3.3 1.2 - 3.3 K/cumm HISTORICAL RESULTS Monocytes, absolute 0.8 0.2 - 1.2 K/cumm HISTORICAL RESULTS Eosinophils, abs 0.1 0.0 - 0.5 K/cumm HISTORICAL RESULTS Basophils, abs 0.0 0.0 - 0.2 K/cumm HISTORICAL RESULTS Blood specimen (specimen) 11/25/2014 9:20 AM CDT Burt Dos Santos MD PhD LAB BLOOD ORDERABLES Final Result HISTORICAL RESULTS * (ABNORMAL) Plasma comprehensive metabolic panel (06/10/2014 9:55 AM CDT) Sodium 139 135 - 145 mmol/L HISTORICAL RESULTS K, pl 4.8 3.3 - 4.9 mmol/L HISTORICAL RESULTS Chloride 99 97 - 110 mmol/L HISTORICAL RESULTS CO2 28 22 - 32 mmol/L HISTORICAL RESULTS A. gap 12 0 - 16 mmol/L HISTORICAL RESULTS Glucose 116 70 - 199 mg/dl HISTORICAL RESULTS BUN 17 8 - 25 mg/dl HISTORICAL RESULTS Creatinine 0.84 0.70 - 1.30 mg/dl HISTORICAL RESULTS Calcium 9.9 8.6 - 10.3 mg/dl HISTORICAL RESULTS Protein, pl 6.9 6.5 - 8.5 g/dl HISTORICAL RESULTS Alb 4.7 3.6 - 5.0 g/dl HISTORICAL RESULTS Bilirubin 0.5 0.3 - 1.1 mg/dl HISTORICAL RESULTS Alk phos 83 38 - 126 Units/L HISTORICAL RESULTS AST 30 11 - 47 Units/L HISTORICAL RESULTS ALT 55(H) 7 - 53 Units/L HISTORICAL RESULTS Plasma 06/10/2014 9:55 AM CDT Burt Dos Santos MD PhD LAB BLOOD ORDERABLES Final Result Performing Organization Address [place]/[facility]/ZIP Co de Phone Number HISTORICAL RESULTS * Serum lactate dehydrogenase (LDH) (06/10/2014 9:55 AM CDT) Lactate dehydrogenase (LDH) 244 100 - 250 Units/L HISTORICAL RESULTS Serum 06/10/2014 9:55 AM CDT Burt Dos Santos MD PhD LAB BLOOD ORDERABLES Final Result Performing Organization Address [facility] de Phone Number HISTORICAL RESULTS * Blood cell count [CBC] panel, 7 CAM (06/10/2014 9:54 AM CDT) RBC 4.60 4.50 - 5.70 M/cumm HISTORICAL RESULTS WBC 6.9 3.8 - 9.8 K/cumm HISTORICAL RESULTS Hgb 14.2 13.8 - 17.2 g/dl HISTORICAL RESULTS Hct 42.3 40.7 - 50.3 % HISTORICAL RESULTS MCV 91.8 80.0 - 97.6 fl HISTORICAL RESULTS MCH 30.8 26.7 - 33.7 pg HISTORICAL RESULTS MCHC 33.5 32.7 - 35.5 g/dl HISTORICAL RESULTS Rdw 13.5 11.8 - 14.6 % HISTORICAL RESULTS Platelets 182 140 - 440 K/cumm HISTORICAL RESULTS MPV 9.3 6.8 - 10.4 fl HISTORICAL RESULTS Neutrophils 42.1 38.7 - 74.5 % HISTORICAL RESULTS Lymphocytes 43.7 20.0 - 54.3 % HISTORICAL RESULTS Monos 12.7 4.3 - 13.5 % HISTORICAL RESULTS Eosinophils 0.9 0.0 - 6.0 % HISTORICAL RESULTS Basophils 0.6 0.0 - 3.0 % HISTORICAL RESULTS Neutrophils, abs 2.9 1.8 - 6.6 K/cumm HISTORICAL RESULTS Lymphocytes, abs 3.0 1.2 - 3.3 K/cumm HISTORICAL RESULTS Monocytes, absolute 0.9 0.2 - 1.2 K/cumm HISTORICAL RESULTS Eosinophils, abs 0.1 0.0 - 0.5 K/cumm HISTORICAL RESULTS Basophils, abs 0.0 0.0 - 0.2 K/cumm HISTORICAL RESULTS Blood specimen (specimen) 06/10/2014 9:54 AM CDT Burt Dos Santos MD PhD LAB BLOOD ORDERABLES Final Result HISTORICAL RESULTS documented in this encounter Visit Diagnoses Diagnosis Other non-follicular lymphoma, lymph nodes of multiple sites (HCC) Encounter for examination for normal comparison or control in clinical research program documented in this encounter Additional Health Concerns Infection Onset Date Last Indicated Resolved Time C. difficile Comment:Backloaded December 21, 2010 09/21/2010 09/21/2010 documented as of this encounter
--- OUTSIDE RECORDS SUMMARY | 2024-02-22 08:34 | XMS_ITS | Encounter Summary ---
Author Organization [facility] Facility Care Team Providers Care Lumber Mover Name Role Phone Unavailable Primary Care Provider Unavailabl e Encounter Details Date Type Department Care Team (Late st Contact Info) Description 02/16/2015 Hospital Encounter [facility] Burt Gomez MD PhD [address] [employer], [address] [place] [address] Non-Hodgkin lymphoma (CMS/HCC); Encounter for examination for normal comparison or control in clinical research program Social History Tobacco Use Types Packs/Day Years Used Date Smoking Tobacco: Never Assessed Sex and Gender Information Value Date Recorded Sex Assigned at Not on file Legal Sex Male 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 Gender Identity Not on file Sexual Orientation Not on file documented as of this encounter Plan of Treatment Not on file documented as of this encounter Procedures Procedure Name Priority Date/Time Associated Diagnosis Comments CT ABDOMEN PELVIS W CONTRAST Routine 02/16/2015 11:[address] TRIM [address] CT CHEST W CONTRAST Routine 02/16/2015 1 1:[address] SOFT TISSUE NECK W CONTRAST Routine 02/16/2015 11:14 AM SHELL TRIM OPERATOR BONE MARROW LYMPHOCYTE POPULATION, LEUKEMIA/LYMPHOMA Routine 02/16/2015 10:30 AM SHELL TRIM OPERATOR DISCHARGE LABORATORY CUMULATIVE REPORT 02/16/2015 SURGICAL PATHOLOGY 02/16/2015 documented in this encounter Results * CT Abdomen Pelvis W Contrast (02/16/2015 11:14 AM SHELL TRIM OPERATOR) Anatomical Region Laterality Modality Body N/A Computed Tomogra phy 02/16/2015 11:1 4 AM SHELL TRIM OPERATOR Narrative 02/16/2015 11:36 AM SHELL TRIM OPERATOR GROVER CORDOVA M.D. FINAL REPORT ACC# ??Date Time ??Exam [id number] Feb 16, 2015 11:14:[address] Abd & Pelvis with cont [id number] Feb 16, 2015 11:14:[address] Chest with contrast EXAMINATION: ?Computed tomography examination of the chest, abdomen, and pelvis with contrast HISTORY: ??Lymphoma. TECHNIQUE: Following the uneventful administration of 100 cc Optiray-350 images were obtained through the chest, abdomen, and pelvis using standard protocol. FINDINGS: ?? Comparison is made to prior computed tomography examination of the chest, abdomen, and pelvis dated 11/25/2014. Chest: There has been no interval change within multiple bilateral supraclavicular, mediastinal, and axillary lymph nodes. The previously referenced 1.5 cm x 1.2 cm right subpectoral lymph node is present currently on slice -441. The heart size is normal. Coronary artery calcifications noted. There are no confluent pulmonary infiltrates or pleural effusions. Mild basilar atelectasis present Abdomen and pelvis: The spleen remains mildly enlarged. The gallbladder surgically absent. The pancreas, both adrenal glands appear normal. Nonobstructing renal stones noted. Again noted and without significant change are multiple mesenteric and retroperitoneal lymph nodes. The previously referenced right lower quadrant mesenteric lymph node is stable in size as well measuring approximately 4.7 cm x 2.5 cm and present on slice -843. The bowel gas pattern and appendix appear normal. Colonic diverticulosis present. The prostate and urinary bladder appear normal. Stable pelvic and inguinal lymphadenopathy noted. The previously referenced left inguinal lymph node is stable measuring 2.4 x 1.8 cm and present currently on slice -1053. Images obtained with bone window settings demonstrate multilevel degenerative changes throughout the spine. IMPRESSION: ?? Stable lymphadenopathy within the chest, abdomen, and pelvis. Requested By: BURT MCGINNIS M.D. Dictated By: ?? GROVER CORDOVA M.D. ??on Feb 16 2015 11:36A This document has been electronically signed by: GROVER CORDOVA M.D. on Feb 16 2015 11:36A [id number] Procedure Note Provider, MD Ilda - 07/03/2016 GROVER CORDOVA M.D. FINAL REPORT ACC# Date Time Exam [id number] Feb 16, 2015 11:14:[address] Abd & Pelvis with cont [id number] Feb 16, 2015 11:14:[address] Chest with contrast EXAMINATION: Computed tomography examination of the chest, abdomen, and pelvis with contrast HISTORY: Lymphoma. TECHNIQUE: Following the uneventful administration of 100 cc Optiray-350 images were obtained through the chest, abdomen, and pelvis using standard protocol. FINDINGS: Comparison is made to prior computed tomography examination of the chest, abdomen, and pelvis dated 11/25/2014. Chest: There has been no interval change within multiple bilateral supraclavicular, mediastinal, and axillary lymph nodes. The previously referenced 1.5 cm x 1.2 cm right subpectoral lymph node is present currently on slice -441. The heart size is normal. Coronary artery calcifications noted. There are no confluent pulmonary infiltrates or pleural effusions. Mild basilar atelectasis present Abdomen and pelvis: The spleen remains mildly enlarged. The gallbladder surgically absent. The pancreas, both adrenal glands appear normal. Nonobstructing renal stones noted. Again noted and without significant change are multiple mesenteric and retroperitoneal lymph nodes. The previously referenced right lower quadrant mesenteric lymph node is stable in size as well measuring approximately 4.7 cm x 2.5 cm and present on slice -843. The bowel gas pattern and appendix appear normal. Colonic diverticulosis present. The prostate and urinary bladder appear normal. Stable pelvic and inguinal lymphadenopathy noted. The previously referenced left inguinal lymph node is stable measuring 2.4 x 1.8 cm and present currently on slice -1053. Images obtained with bone window settings demonstrate multilevel degenerative changes throughout the spine. IMPRESSION: Stable lymphadenopathy within the chest, abdomen, and pelvis. Requested By: BURT MCGINNIS M.D. Dictated By: GROVER CORDOVA M.D. on Feb 16 2015 11:36A This document has been electronically signed by: GROVER CORDOVA M.D. on Feb 16 2015 11:36A [id number] us Historical Provider MD CODY CT PROCEDURES Final R esult * CT Soft Tissue Neck W Contrast (02/16/2015 11:14 AM SHELL TRIM OPERATOR) Anatomical Region Laterality Modality Head and Neck N/A Computed Tomogra phy 02/16/2015 11:1 4 AM SHELL TRIM OPERATOR Narrative 02/16/2015 12:43 PM SHELL TRIM OPERATOR Terence SILVA M.D. FINAL REPORT The radiology attending physician has personally reviewed this study, and has reviewed and/or edited this written report and agrees with it. ACC# ??Date Time ??Exam [id number] Feb 16, 2015 11:14:[id number] Neck SoftTissue w cont EXAMINATION: ?? CT of the neck with contrast HISTORY: Small lymphocytic lymphoma TECHNIQUE: CT of the neck was performed according to standard protocol after the uneventful administration of intravenous contrast. Contrast information: 61 mL Optiray-350 COMPARISON: None available. FINDINGS: Review of the topogram demonstrates anterior cervical discectomy and fusion at C5-C6. Pathologically enlarged lymph nodes are seen throughout the cervical chains bilaterally, unchanged in size. The muscles of the neck are normal. Vessels of the neck demonstrate normal course and caliber. Fascial planes are preserved and the deep spaces of the neck are normal. The visualized airway is widely patent. The base of the skull and the temporal bones are normal. Limited views of the brain including the cerebellum and brainstem are normal. 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 The limited view of the [place] is unremarkable. The visualized portions of the orbits are normal. Limited examination of the superior thorax shows no pulmonary infiltrate, suspicious nodules, or pleural effusions, please see chest CT for details. IMPRESSION: ?? Stable cervical lymphadenopathy. Requested By: BURT MCGINNIS M.D. Dictated By: ?? SARAH FLOOD M.D. ??on Feb 16 2015 11:50A This document has been electronically signed by: JAZMINE LOPEZ M.D. on Feb 16 2015 12:42P [id number] Procedure Note Provider, MD Ilda - 07/03/2016 JAZMINE LOPEZ M.D. SARAH FLOOD M.D. FINAL REPORT The radiology attending physician has personally reviewed this study, and has reviewed and/or edited this written report and agrees with it. ACC# Date Time Exam [id number] Feb 16, 2015 11:14:[id number] Neck SoftTissue w cont EXAMINATION: CT of the neck with contrast HISTORY: Small lymphocytic lymphoma TECHNIQUE: CT of the neck was performed according to standard protocol after the uneventful administration of intravenous contrast. Contrast information: 61 mL Optiray-350 COMPARISON: None available. FINDINGS: Review of the topogram demonstrates anterior cervical discectomy and fusion at C5-C6. Pathologically enlarged lymph nodes are seen throughout the cervical chains bilaterally, unchanged in size. The muscles of the neck are normal. Vessels of the neck demonstrate normal course and caliber. Fascial planes are preserved and the deep spaces of the neck are normal. The visualized airway is widely patent. The base of the skull and the temporal bones are normal. Limited views of the brain including the cerebellum and brainstem are normal. 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 The limited view of the [place] is unremarkable. The visualized portions of the orbits are normal. Limited examination of the superior thorax shows no pulmonary infiltrate, suspicious nodules, or pleural effusions, please see chest CT fordetails. IMPRESSION: Stable cervical lymphadenopathy. Requested By: BURT MCGINNIS M.D. Dictated By: SARAH FLOOD M.D. on Feb 16 2015 11:50A This document has been electronically signed by: JAZMINE LOPEZ M.D. on Feb 16 2015 12:42P [id number] us Historical Provider MD CODY CT PROCEDURES Final R esult * CT Chest W Contrast (02/16/2015 11:14 AM SHELL TRIM OPERATOR) Anatomical Region Laterality Modality Body N/A Computed Tomogra phy 02/16/2015 11:1 4 AM SHELL TRIM OPERATOR Narrative 02/16/2015 11:36 AM SHELL TRIM OPERATOR GROVER CORDOVA M.D. FINAL REPORT ACC# ??Date Time ??Exam [id number] Feb 16, 2015 11:14:[address] Abd & Pelvis with cont [id number] Feb 16, 2015 11:14:[address] Chest with contrast EXAMINATION: ?Computed tomography examination of the chest, abdomen, and pelvis with contrast HISTORY: ??Lymphoma. TECHNIQUE: Following the uneventful administration of 100 cc Optiray-350 images were obtained through the chest, abdomen, and pelvis using standard protocol. FINDINGS: ?? Comparison is made to prior computed tomography examination of the chest, abdomen, and pelvis dated 11/25/2014. Chest: There has been no interval change within multiple bilateral supraclavicular, mediastinal, and axillary lymph nodes. The previously referenced 1.5 cm x 1.2 cm right subpectoral lymph node is present currently on slice -441. The heart size is normal. Coronary artery calcifications noted. There are no confluent pulmonary infiltrates or pleural effusions. Mild basilar atelectasis present Abdomen and pelvis: The spleen remains mildly enlarged. The gallbladder surgically absent. The pancreas, both adrenal glands appear normal. Nonobstructing renal stones noted. Again noted and without significant change are multiple mesenteric and retroperitoneal lymph nodes. The previously referenced right lower quadrant mesenteric lymph node is stable in size as well measuring approximately 4.7 cm x 2.5 cm and present on slice -843. The bowel gas pattern and appendix appear normal. Colonic diverticulosis present. The prostate and urinary bladder appear normal. Stable pelvic and inguinal lymphadenopathy noted. The previously referenced left inguinal lymph node is stable measuring 2.4 x 1.8 cm and present currently on slice -1053. Images obtained with bone window settings demonstrate multilevel degenerative changes throughout the spine. IMPRESSION: ?? Stable lymphadenopathy within the chest, abdomen, and pelvis. Requested By: BURT MCGINNIS M.D. Dictated By: ?? GROVER CORDOVA M.D. ??on Feb 16 2015 11:36A This document has been electronically signed by: GROVER CORDOVA M.D. on Feb 16 2015 11:36A [id number] Procedure Note Provider, MD Ilda - 07/03/2016 GROVER CORDOVA M.D. FINAL REPORT ACC# Date Time Exam [id number] Feb 16, 2015 11:14:[id number] Abd & Pelvis with cont [id number] Feb 16, 2015 11:14:[address] Chest with contrast EXAMINATION: Computed tomography examination of the chest, abdomen, and pelvis with contrast HISTORY: Lymphoma. TECHNIQUE: Following the uneventful administration of 100 cc Optiray-350 images were obtained through the chest, abdomen, and pelvis using standard protocol. FINDINGS: Comparison is made to prior computed tomography examination of the chest, abdomen, and pelvis dated 11/25/2014. Chest: There has been no interval change within multiple bilateral supraclavicular, mediastinal, and axillary lymph nodes. The previously referenced 1.5 cm x 1.2 cm right subpectoral lymph node is present currently on slice -441. The heart size is normal. Coronary artery calcifications noted. There are no confluent pulmonary infiltrates or pleural effusions. Mild basilar atelectasis present Abdomen and pelvis: The spleen remains mildly enlarged. The gallbladder surgically absent. The pancreas, both adrenal glands appear normal. Nonobstructing renal stones noted. Again noted and without significant change are multiple mesenteric and retroperitoneal lymph nodes. The previously referenced right lower quadrant mesenteric lymph node is stable in size as well measuring approximately 4.7 cm x 2.5 cm and present on slice -843. The bowel gas pattern and appendix appear normal. Colonic diverticulosis present. The prostate and urinary bladder appear normal. Stable pelvic and inguinal lymphadenopathy noted. The previously referenced left inguinal lymph node is stable measuring 2.4 x 1.8 cm and present currently on slice -1053. Images obtained with bone window settings demonstrate multilevel degenerative changes throughout the spine. IMPRESSION: Stable lymphadenopathy within the chest, abdomen, and pelvis. Requested By: BURT MCGINNIS M.D. Dictated By: GROVER CORDOVA M.D. on Feb 16 2015 11:36A This document has been electronically signed by: GROVER CORDOVA M.D. on Feb 16 2015 11:36A [id number] us Historical Provider MD CODY CT PROCEDURES Final R esult * Bone marrow lymphocyte population, leukemia/lymphoma (02/16/2015 10:30 AM SHELL TRIM OPERATOR) CD3 cells, bone marrow Test Completed HISTORICAL RESULTS CD5 cells, bone marrow Test Completed HISTORICAL RESULTS CD10 cells, bone marrow Test Completed HISTORICAL RESULTS CD19 cells, bone marrow Test Completed HISTORICAL RESULTS CD20 cells, bone marrow Test Completed HISTORICAL RESULTS CD23 cells, bone marrow Test Completed HISTORICAL RESULTS CD45 cells, bone marrow Test Completed HISTORICAL RESULTS Braden cells, bone marrow Test Completed HISTORICAL RESULTS Lambda cells, bone marrow Test Completed HISTORICAL RESULTS Hernández stain, bone marrow Test Completed HISTORICAL RESULTS Leukemia/ lymphoma panel result, bone marrow See separate Surgical Pathology report HISTORICAL RESULTS Bone marrow 02/16/2015 10:3 0 AM SHELL TRIM OPERATOR Burt Mcginnis MD PhD LAB BLOOD ORDERABLES Final Result HISTORICAL RESULTS * DISCHARGE LABORATORY CUMULATIVE REPORT (02/16/2015) Narrative 02/16/2015 Ordered by an unspecified provider. Historical Provider LAB BLOOD ORDERABLES [place] l Result * Surgical pathology (02/16/2015) Narrative 02/16/2015 Ordered by an unspecified provider. Result [facility] Historical Provider LAB PATHOLOGY ORDERABLES Final Result documented in this encounter Visit Diagnoses Diagnosis Non-Hodgkin lymphoma (HCC) Encounter for examination for normal comparison or control in clinical research program documented in this encounter Additional Health Concerns Infection Onset Date Last Indicated Resolved Time C. difficile Comment:Backloaded December 21, 2010 09/21/2010 09/21/2010 documented as of this encounter
--- OUTSIDE RECORDS SUMMARY | 2024-02-22 08:34 | XMS_ITS | Encounter Summary ---
Author Organization [facility] Facility Care Team Providers Care Major Donor Coordinator Name Role Phone Unavailable Primary Care Provider Unavailabl e Encounter Details Date Type Department Care Team (Late st Contact Info) Description 10/20/2013 - 10/20/2013 11:59 PM CDT Hospital Encounter [facility] Burt Gmoez MD PhD [address] DIV [facility] [employer], [address] [place] [address] Lymphosarcoma, unspecified site, extranodal and solid organ sites; Nontoxic uninodular goiter Social History Tobacco Use Types Packs/Day Years Used Date Smoking Tobacco: Never Assessed Sex and Gender Information Value Date Recorded Sex Assigned at Not on file Legal Sex Male 9:45 AM FRONT EDGER Gender Identity Not on file Sexual Orientation Not on file documented as of this encounter Plan of Treatment Not on file documented as of this encounter Procedures Procedure Name Priority Date/Time Associated Diagnosis Comments US SOFT TISSUE HEAD NECK Routine 10/20/2013 2:57 PM CDT documented in this encounter Results * US Soft Tissue Neck (10/20/2013 2:57 PM CDT) Anatomical Region Laterality Modality Head and Neck N/A Ultrasound 10/20/2013 2:57 PM CDT Narrative 10/20/2013 3:46 PM CDT LAYNE OVIEDO M.D. VEE JAIME M.D. FINAL REPORT The radiology attending physician has personally reviewed this study, and has reviewed and/or edited this written report and agrees with it. 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 FINDINGS: The thyroid is normal in size. ??The right lobe measures 1.9 x 1.9 x 5.5 cm and the left lobe measures 1.7 x 2.3 x 5.2 cm. There is a nodule in the left mid thyroid lobe that measures 13 x 15 x 17 mm. It is predominantly cystic with a small peripheral solid component and internal echoes. A second smaller superior nodule measures 9 x 6 x 11 mm and is slightly hyperechoic and solid. There is a mixed cystic and solid nodule in the inferior right right lobe that measures 6 x 6 mm; an accurate length could not be determined.. There are multiple abnormally enlarged, lymph nodes in the right and left neck lateral to the internal jugular veins and superior to the left submandibular gland that have loss of normal reniform shape and fatty hilum. The largest on the right measures 13 x 16 x 8 mm and is in the superior neck and the largest on the left is superior to the submandibular gland and measures 19 x 7 x 16 mm. ?? IMPRESSION: 1. Benign-appearing thyroid nodules. None of the thyroid nodules meet guidelines for biopsy based on size or sonographic appearance. 2. Multiple enlarged, abnormal appearing lymph nodes along the right and left jugular chains as well as superior to the left submandibular gland, concerning for recurrent lymphoma. Above findings were discussed with Dr. Levon Marino's nurse, at [address] Vee Jaime. ?? Requested By: BURT MCGINNIS M.D. Dictated By: ?? VEE JAIME M.D. ??on Oct 20 2013 ??3:36P This document has been electronically signed by: LAYNE VOIEDO M.D. on Oct 20 2013 ??3:46P Procedure Note Provider, MD Ilda - 07/03/2016 LAYNE OVIEDO M.D. VEE JAIME M.D. FINAL REPORT The radiology attending physician has personally reviewed this study, and has reviewed and/or edited this written report and agrees with it. 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 FINDINGS: The thyroid is normal in size. The right lobe measures 1.9 x 1.9 x 5.5 cm and the left lobe measures 1.7 x 2.3 x 5.2 cm. There is a nodule in the left mid thyroid lobe that measures 13 x 15 x 17 mm. It is predominantly cystic with a small peripheral solid component and internal echoes. A second smaller superior nodule measures 9 x 6 x 11 mm and is slightly hyperechoic and solid. There is a mixed cystic and solid nodule in the inferior right right lobe that measures 6 x 6 mm; an accurate length could not be determined.. There are multiple abnormally enlarged, lymph nodes in the right and left neck lateral to the internal jugular veins and superior to the left submandibular gland that have loss of normal reniform shape and fatty hilum. The largest on the right measures 13 x 16 x 8 mm and is in the superior neck and the largest on the left is superior to the submandibular gland and measures 19 x 7 x 16 mm. IMPRESSION: 1. Benign-appearing thyroid nodules. None of the thyroid nodules meet guidelines for biopsy based on size or sonographic appearance. 2. Multiple enlarged, abnormal appearing lymph nodes along the right and left jugular chains as well as superior to the left submandibular gland, concerning for recurrent lymphoma. Above findings were discussed with Dr. Levon Marino's nurse, at [address] Vee Jaime. Requested By: BURT MCGINNIS M.D. Dictated By: VEE JAIME M.D. on Oct 20 2013 3:36P This document has been electronically signed by: LAYNE OVIEDO M.D. 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 difficile Comment:Backloaded December 21, 2010 09/21/2010 09/21/2010 documented as of this encounter
--- OUTSIDE RECORDS SUMMARY | 2024-02-22 08:34 | XMS_ITS | Encounter Summary ---
Author Organization [facility] Facility Care Team Providers Care Supervisor White Sugar Name Role Phone Unavailable Primary Care Provider Unavailabl e Encounter Details Date Type Department Care Team (Latest Contact Info) Description 04/15/2016 1:16 PM NEEDLE MOLDER - 04/15/2016 5:08 PM NEEDLE MOLDER Hospital Encounter [facility] KikeYarelis, DO [address] [place] [address] Calculus of kidney; History of non-Hodgkin's lymphoma; Personal history of antineoplastic chemotherapy Social History Tobacco Use Types Packs/Day Years Used Date Smoking Tobacco: Never Assessed Sex and Gender Information Value Date Recorded Sex Assigned at Not on file Legal Sex Male 9:45 AM NEEDLE MOLDER Gender Identity Not on file Sexual Orientation Not on file documented as of this encounter Medications at Time of Discharge fluticasone (FLONASE) 50 mcg/actuation nasal spray Administer 2 sprays into each nostril daily 03/08/2015 documented as of this encounter Plan of Treatment Not on file documented as of this encounter Procedures Procedure Name Priority Date/Time Associated Diagnosis Comments CT ABDOMEN PELVIS W CONTRAST Routine 04/15/2016 3:50 PM NEEDLE MOLDER SERUM LIPASE Routine 04/15/2016 2:43 PM NEEDLE MOLDER SERUM ESTIMATED GLOMERULAR FILTRATION RATE Routine 04/15/2016 2:43 PM NEEDLE MOLDER PLASMA COMPREHENSIVE METABOLIC PANEL Routine 04/15/2016 2:43 PM NEEDLE MOLDER URINALYSIS Routine 04/15/2016 2:43 PM NEEDLE MOLDER BLOOD CELL COUNT (CBC) Routine 7 2:43 PM NEEDLE MOLDER BLOOD CELL MORPHOLOGIC EXAM Routine 04/15/2016 2:43 PM NEEDLE MOLDER ELECTROCARDIOGRAPHY (ECG) 04/15/2016 DISCHARGE LABORATORY CUMULATIVE REPORT 04/15/2016 documented in this encounter Results * CT Abdomen Pelvis W Contrast (04/15/2016 3:50 PM NEEDLE MOLDER) Anatomical Region Laterality Modality Body N/A Computed Tomogra phy 04/15/2016 3:50 PM NEEDLE MOLDER Narrative 04/15/2016 4:[address] ABDOMEN AND PELVIS WITH CONTRAST HISTORY: Abdominal pain. ??Nausea. ??Vomiting. ??Diarrhea. ??Weakness. Non-Hodgkin's lymphoma. 122 mL of Optiray 350. ??No oral contrast. ??As such, the examination is relatively less sensitive. COMPARISON: 12/22/2015. There is some bandlike and more coalescent parenchymal change at the left lateral base. ??Some of this had been present 12/22/2015 but it may be a little bit worse. Fatty liver. Cholecystectomy. There is a 2 to 3 mm right ureteral stone in the midportion. ??This is associated with some dilatation of the more proximal ureter and the collecting system of the right kidney. ??The right nephrogram is perhaps not quite as dense as the left. ??There is some infiltration of perinephric fat. A 2 to 3 mm stone is seen in the lower pole calyx of the right kidney. Abdominal and pelvic adenopathy is again seen. ??In the axial plane, a node adjacent to the pancreatic head measures 5.5 x 2.8 cm. ??No significant change. ??A node near the right common iliac artery measures 2.3 cm. ??No change. ??Just medial to the right colon, in the axial plane there is a conglomeration of nodes which measures 1.8 x 4.2 cm. ??No change. ??A node between the anterior aspect of the right acetabulum and bladder measures 4 x 2 cm. ??No change. ??There is infiltration of mesenteric fat. ??No change. The prostate is prominent. ??Colonic diverticulosis is seen. There is calcification in the lower pole calyx of the left kidney measuring about 1 cm. IMPRESSION: 1. ??The acute finding, and the main new finding since 12/22/2015 is a mid ureteral stone on the right with proximal dilatation. 2. ??Abdominal and pelvic adenopathy. 3. ??Bilateral kidney stones. 4. ??Colonic diverticulosis. 5. ??Enlarged prostate. Edited by: Cadence Barnes Electronically signed by: Lance Pugh M.D. Radiologist: LANCE PUGH MD ?? Attending: ??UNKNOWN, NOTINFILE ?? Requesting: YARELIS WILLIS DO Requesting Fax: ?? Requesting ID: [id number] Attending Fax: ?? Attending ID: ?? [id number] Completed Time: ?? 04/15/2016 3:50 PM Dictated Time: ?04/15/2016 4:02 PM Transcribed Time: 04/15/2016 4:16 PM Signed by: ?LANCE PUGH. ??MD on 04/15/2016 4:23 PM Report To 1 ID: Report To 1 Name: , Report To 1 FAX: Report To 2 ID: Report To 2 Name: , Report To 2 FAX: Report To 3 ID: Report To 3 Name: , Report To 3 FAX: NextGen Order #: Procedure Note Provider, MD Ilda - 07/10/2016 CT ABDOMEN AND PELVIS WITH CONTRAST HISTORY: Abdominal pain. Nausea. Vomiting. Diarrhea. Weakness. Non-Hodgkin's lymphoma. 122 mL of Optiray 350. No oral contrast. As such, the examination is relatively less sensitive. COMPARISON: 12/22/2015. There is some bandlike and more coalescent parenchymal change at the left lateral base. Some of this had been present 12/22/2015 but it may be a little bit worse. Fatty liver. Cholecystectomy. There is a 2 to 3 mm right ureteral stone in the midportion. This is associated with some dilatation of the more proximal ureter and the collecting system of the right kidney. The right nephrogram is perhaps not quite as dense as the left. There is some infiltration of perinephric fat. A 2 to 3 mm stone is seen in the lower pole calyx of the right kidney. Abdominal and pelvic adenopathy is again seen. In the axial plane, a node adjacent to the pancreatic head measures 5.5 x 2.8 cm. No significant change. A node near the right common iliac artery measures 2.3 cm. No change. Just medial to the right colon, in the axial plane there is a conglomeration of nodes which measures 1.8 x 4.2 cm. No change. A node between the anterior aspect of the right acetabulum and bladder measures 4 x 2 cm. No change. There is infiltration of mesenteric fat. No change. The prostate is prominent. Colonic diverticulosis is seen. There is calcification in the lower pole calyx of the left kidney measuring about 1 cm. IMPRESSION: 1. The acute finding, and the main new finding since 12/22/2015 is a mid ureteral stone on the right with proximal dilatation. 2. Abdominal and pelvic adenopathy. 3. Bilateral kidney stones. 4. Colonic diverticulosis. 5. Enlarged prostate. Edited by: Cadence Barnes Electronically signed by: Lance Pugh M.D. Radiologist: LANCE PUGH MD Attending: UNKNOWN, NOTINFILE Requesting: YARELIS WILLIS DO Requesting Requesting ID: [id number] Attending Attending ID: [id number] Completed Time: 04/15/2016 3:50 PM Dictated Time: 04/15/2016 4:02 PM Transcribed Time: 04/15/2016 4:16 PM Signed by: LANCE PUGH MD on 04/15/2016 4:23 PM Report To 1 ID: Report To 1 Name: , Report To 1 FAX: Report To 2 ID: Report To 2 Name: , Report To 2 FAX: Report To 3 ID: Report To 3 Name: , Report To 3 FAX: NextGen Order #: us Historical Provider MD CODY CT PROCEDURES Final R esult * (ABNORMAL) Urinalysis (04/15/2016 2:43 PM NEEDLE MOLDER) Color, ur Yellow Colorless CDR HISTORICAL RESULTS Clarity, ur Clear Clear CDR HISTORICAL RESULTS Specific gravity, ur 1.025 1.005 - 1.030 CDR HISTORICAL RESULTS pH, ur 6.0 5.0 - 8.0 CDR HISTORICAL RESULTS Protein, ur 30(A) Negative CDR HISTORICAL RESULTS Glucose, ur Normal Normal CDR HISTORICAL RESULTS Ketones, ur 20(A) Negative CDR HISTORICAL RESULTS Bilirubin, ur Negative Negative CDR HISTORICAL RESULTS U Blood Negative Negative CDR HISTORICAL RESULTS Urobilinogen, quant, ur = or > 4(A) Normal CDR HISTORICAL RESULTS Nitrites, ur Negative Negative CDR HISTORICAL RESULTS Leukocyte esterase, ur Negative Negative CDR HISTORICAL RESULTS Urine 04/15/2016 2:43 PM NEEDLE MOLDER us Historical Provider LAB BLOOD ORDERABLES [place] l Result CDR HISTORICAL RESULTS * (ABNORMAL) Plasma comprehensive metabolic panel (04/15/2016 2:43 PM NEEDLE MOLDER) Sodium 132(L) 136 - 146 mmol/L CDR HISTORICAL RESULTS K, pl 3.9 3.3 - 4.9 mmol/L CDR HISTORICAL RESULTS CO2 26 22 - 33 mmol/L CDR HISTORICAL RESULTS BUN 16 7 - 18 mg/dl CDR HISTORICAL RESULTS Glucose 125 70 - 140 mg/dl CDR HISTORICAL RESULTS Comment: Glucose is assumed to be non-fasting. Fasting Glucose normal ranges are: Ages 0 days - 2 month: 40 - 100 mg/dL Ages 2 months - 999 years: 70 - 140 mg/dL Creatinine 1.40 0.50 - 1.50 mg/dl CDR HISTORICAL RESULTS Calcium 8.9 8.5 - 10.5 mg/dl CDR HISTORICAL RESULTS Chloride 97(L) 98 - 108 mmol/L CDR HISTORICAL RESULTS Alb 3.7 3.4 - 5.0 g/dl CDR HISTORICAL RESULTS AST 22 15 - 41 Units/L CDR HISTORICAL RESULTS ALT 26 17 - 63 Units/L CDR HISTORICAL RESULTS Alk phos 56 38 - 126 Units/L CDR HISTORICAL RESULTS Bilirubin 1.8(H) 0.1 - 1.2 mg/dl CDR HISTORICAL RESULTS Protein, pl 6.0 6.0 - 8.5 g/dl CDR HISTORICAL RESULTS A. gap 9 mmol/L CDR HISTOR ICAL RESULTS Plasma 04/15/2016 2:43 PM NEEDLE MOLDER Historical Provider LAB BLOOD ORDERABLES [place] Result CDR HISTORICAL RESULTS * Serum lipase (04/15/2016 2:43 PM NEEDLE MOLDER) Lip 13 8 - 57 Units/L CDR HISTORICAL RESULTS Serum 04/15/2016 2:43 PM NEEDLE MOLDER Historical Provider LAB BLOOD ORDERABLES [place] l Result Performing Organization Address [facility]/ZIP Co de Phone Number CDR HISTORICAL RESULTS * (ABNORMAL) Blood cell count (CBC) (04/15/2016 2:43 PM NEEDLE MOLDER) WBC 12.5(H) 3.8 - 9.9 K/cumm CDR HISTORICAL RESULTS RBC 4.46 4.30 - 5.80 M/cumm CDR HISTORICAL RESULTS Hgb 14.0 13.0 - 17.5 g/dl CDR HISTORICAL RESULTS Hct 40.6 38.9 - 50.3 % CDR HISTORICAL RESULTS MCV 91.0 81.3 - 96.4 fl CDR HISTORICAL RESULTS MCH 31.4 27.1 - 33.3 pg CDR HISTORICAL RESULTS MCHC 34.5 32.3 - 35.7 g/dl CDR HISTORICAL RESULTS Rdw 12.2 11.1 - 14.9 % CDR HISTORICAL RESULTS RDW 40.6 35.7 - 48.1 fl CDR HISTORICAL RESULTS Platelets 202 150 - 400 K/cumm CDR HISTORICAL RESULTS MPV 11.4 9.1 - 12.3 fl CDR HISTORICAL RESULTS NRBC 0.00 0.00 - 0.20 % CDR HISTORICAL RESULTS NRBC, abs 0.00 0.00 - 0.01 K/cumm CDR HISTORICAL RESULTS Blood specimen (specimen) 04/15/2016 2:43 PM NEEDLE MOLDER Historical Provider LAB BLOOD ORDERABLES [place] l Result Performing Organization Address City/[facility]/ZIP Co de Phone Number CDR HISTORICAL RESULTS * (ABNORMAL) Blood cell morphologic exam (04/15/2016 2:43 PM NEEDLE MOLDER) Neutrophils 76.2 44.0 - 80.0 % CDR HISTORICAL RESULTS Immature granulocytes 0.6 0.0 - 1.0 % CDR HISTORICAL RESULTS Lymphocytes 11.2(L) 13.0 - 44.0 % CDR HISTORICAL RESULTS Monos 11.5(H) 2.0 - 11.0 % CDR HISTORICAL RESULTS Eosinophils 0.2 0.0 - 6.0 % CDR HISTORICAL RESULTS Basophils 0.3 0.0 - 3.0 % CDR HISTORICAL RESULTS Neutrophils, abs 9.5(H) 1.7 - 6.5 K/cumm CDR HISTORICAL RESULTS Immature granulocyte, abs 0.1 0.0 - 0.1 K/cumm CDR HISTORICAL RESULTS Lymphocytes, abs 1.4 0.8 - 3.3 K/cumm CDR HISTORICAL RESULTS Monocytes, absolute 1.4(H) 0.2 - 0.8 K/cumm CDR HISTORICAL RESULTS Eosinophils, abs 0.0 0.0 - 0.5 K/cumm CDR HISTORICAL RESULTS Basophils, abs 0.0 0.0 - 0.1 K/cumm CDR HISTORICAL RESULTS Blood specimen (specimen) 04/15/2016 2:43 PM NEEDLE MOLDER us Historical Provider LAB BLOOD ORDERABLES [place] Result CDR HISTORICAL RESULTS * Serum estimated glomerular filtration rate (04/15/2016 2:43 PM NEEDLE MOLDER) [facility] eGFR 53 ml/min/1.7 3 m2 CDR HISTORICAL RESULTS Comment: Interpretive Data Reference Interval Normal ?>/= 90 mL/min/1.73m2 Mildly decreased* ? 60 - 89 mL/min/1.73m2 Mildly to moderately decreased ?45 - 59 mL/min/1.73m2 Moderately to severely decreased ??30 - 44 mL/min/1.73m2 Severely decreased ?15 - 29 mL/min/1.73m2 Kidney Failure ?< 15 ??mL/min/1.73m2 *Relative to young adult level If -Mexican multiply value by 1.16. Estimated glomerular filtration rate is determined by [...] 70. Current interpretive data was last reviewed 2015. Serum 04/15/2016 2:43 PM NEEDLE MOLDER Historical Provider LAB BLOOD ORDERABLES [place] l Result CDR HISTORICAL RESULTS * DISCHARGE LABORATORY CUMULATIVE REPORT (04/15/2016) Narrative 04/15/2016 Ordered by an unspecified provider. Historical Provider LAB BLOOD ORDERABLES [place] l Result * ELECTROCARDIOGRAPHY (ECG) (04/15/2016) Narrative 04/15/2016 Ordered by an unspecified provider. Historical Provider ECG ORDERABLES Final Res ult documented in this encounter Visit Diagnoses Diagnosis Calculus of kidney History of non-Hodgkin's lymphoma Personal history of other lymphatic and hematopoietic neoplasm Personal history of antineoplastic chemotherapy documented in this encounter Additional Health Concerns Infection Onset Date Last Indicated Resolved Time C. difficile Comment:Backloaded December 21, 2010 09/21/2010 09/21/2010 documented as of this encounter
--- OUTSIDE RECORDS SUMMARY | 2024-02-22 08:34 | XMS_ITS | Encounter Summary ---
Author Organization [facility] Facility Care Team Providers Care Reconstructive Surgeon Name Role Phone Unavailable Primary Care Provider Unavailabl e Encounter Details Date Type Department Care Team (Late st Contact Info) Description 08/06/2012 - 03/03/2013 11:59 PM FINISH PAINTER Hospital Encounter [facility] Burt Gomez MD PhD [address] DIV [employer], [address] [place] [address] Chronic lymphoid leukemia (HCC) Social History Tobacco Use Types Packs/Day Years Used Date Smoking Tobacco: Never Assessed Sex and Gender Information Value Date Recorded Sex Assigned at Not on file Legal Sex Male 9:45 AM FINISH PAINTER Gender Identity Not on file Sexual Orientation Not on file documented as of this encounter Plan of Treatment Not on file documented as of this encounter Procedures Procedure Name Priority Date/Time Associated Diagnosis Comments DISCHARGE LABORATORY CUMULATIVE REPORT Routine 03/03/2013 12:00 AM FINISH PAINTER SERUM LACTATE DEHYDROGENASE (LDH) Routine 11/06/2012 10:40 AM CDT PLASMA COMPREHENSIVE METABOLIC PANEL Routine 11/06/2012 10:40 AM CDT BLOOD CELL COUNT Routine 11/06/2012 10:3 8 AM CDT SERUM LACTATE DEHYDROGENASE (LDH) Routine 08/07/2012 10:00 AM CDT PLASMA COMPREHENSIVE METABOLIC PANEL Routine 08/07/2012 10:00 AM CDT BLOOD CELL COUNT Routine 08/07/2012 9:53 AM CDT documented in this encounter Results * Discharge Laboratory Cumulative Report (03/03/2013 12:00 AM FINISH PAINTER) 03/03/2013 Narrative HISTORICAL RESULTS - 11/06/2012 3:30 PM CDT ?[facility] ?Department of Laboratories ? [address] [facility] ?[place], [place] [address] Patient Name: ?MICHELINE OLIVO Med Rec Number: ??[id number] Fin Number: ?[id number] Date: ?1950 Sex/Age: ? Male 62 years Admit Date: ?08/06/2012 Discharge Date: ??03/03/2013 Doctor: ?Burt Dos Santos Facility: ?[facility] Location: ?[facility] Chart Printed: ?? 11/06/2012 ??15:30 ?* Abnormal ?? C Critical ?? f Footnote ?? ^ Corrected ?? L Low ?? H High ?i Interp Data ?? @ Reference Lab ? Chart Type: Periodic ? CHEMISTRY ? Standard Blood Chemistry ?Test: ? Sodium ? Plasma Potassium ??Chloride ?Reference: ??[135-145] ??[3.3-4.9] ? [97-110] ?Units: ?mmol/L ? mmol/L ?mmol/L 11/06/2012 ??10:40:00 ?142 ?4.8 ? 105 ?Test: ? Total CO2 ??Anion Gap ??BUN ? Creatinine ?Reference: ??[22-32] ?[0-16] ? [8-25] ??[0.70-1.30] ?Units: ?mmol/L ? mmol/L ? mg/dL ?? mg/dL 11/06/2012 ??10:40:00 ?30 ? 7 ?19 ?0.82 ?Test: ? Total Bilirubin ??Glucose ?? Total Calcium ?Reference: ??[0.3-1.1] ?[70-199] ??[8.6-10.3] ?Units: ?mg/dL ?mg/dL ? mg/dL 11/06/2012 ??10:40:00 ?0.4 ?115 ? 9.6 ?Test: ? Plasma Total Protein ??Albumin ?Reference: ??[6.5-8.5] ? [3.6-5.0] ?Units: ?g/dL ?g/dL 11/06/2012 ??10:40:00 ?6.7 ? 4.5 ?Test: ? Alkaline Phosphatase ??ALT ?AST ?Reference: ??[38-126] ?[7-53] ?? [11-47] ?Units: ?Units/L ? Units/L ??Units/L 11/06/2012 ??10:40:00 ?79 ?55 ??H ?25 ?Test: ? Total LD ?Reference: ??[100-250] ?Units: ?Units/L 11/06/2012 ??10:40:00 ?178 us Historical Provider MD LAB BLOOD ORDERABLES [place] l Result HISTORICAL RESULTS * (ABNORMAL) Plasma comprehensive metabolic panel (11/06/2012 10:40 AM CDT) Sodium 142 135 - 145 mmol/L HISTORICAL RESULTS K, pl 4.8 3.3 - 4.9 mmol/L HISTORICAL RESULTS Chloride 105 97 - 110 mmol/L HISTORICAL RESULTS CO2 30 22 - 32 mmol/L HISTORICAL RESULTS A. gap 7 0 - 16 mmol/L HISTORICAL RESULTS Glucose 115 70 - 199 mg/dl HISTORICAL RESULTS BUN 19 8 - 25 mg/dl HISTORICAL RESULTS Creatinine 0.82 0.70 - 1.30 mg/dl HISTORICAL RESULTS Calcium [...] 7 - 53 Units/L HISTORICAL RESULTS Plasma 11/06/2012 10:4 0 AM CDT Burt Dos Santos MD PhD LAB BLOOD ORDERABLES Final Result Performing Organization Address City/[facility] Co de Phone Number HISTORICAL RESULTS * Serum lactate dehydrogenase (LDH) (11/06/2012 10:40 AM CDT) Lactate dehydrogenase (LDH) 178 100 - 250 Units/L HISTORICAL RESULTS Serum 11/06/2012 10:4 0 AM CDT Burt Dos Santos MD PhD LAB BLOOD ORDERABLES Final Result Performing Organization Address City/[facility] de Phone Number HISTORICAL RESULTS * Blood cell count [CBC] panel, 7 CAM (11/06/2012 10:38 AM CDT) WBC 6.5 3.8 - 9.8 K/cumm HISTORICAL RESULTS RBC 4.82 4.50 - 5.70 M/cumm HISTORICAL RESULTS Hgb 15.1 13.8 - 17.2 g/dl HISTORICAL RESULTS Hct 45.5 40.7 - 50.3 % HISTORICAL RESULTS MCV 94.4 80.0 - 97.6 fl HISTORICAL RESULTS MCH 31.5 26.7 - 33.7 pg HISTORICAL RESULTS MCHC 33.3 32.7 - 35.5 g/dl HISTORICAL RESULTS Rdw 13.1 11.8 - 14.6 SD HISTORICAL RESULTS Platelets 192 140 - 440 K/cumm HISTORICAL RESULTS MPV 9.3 6.8 - 10.4 fl HISTORICAL RESULTS Neutrophils 54.4 38.7 - 74.5 % HISTORICAL RESULTS Lymphocytes 31.7 20.0 - 54.3 % HISTORICAL RESULTS Monos 12.3 4.3 - 13.5 % HISTORICAL RESULTS Eosinophils 1.2 0.0 - 6.0 % HISTORICAL RESULTS Basophils 0.4 0.0 - 3.0 % HISTORICAL RESULTS Neutrophils, abs 3.5 1.8 - 6.6 K/cumm HISTORICAL RESULTS Lymphocytes, abs 2.1 1.2 - 3.3 K/cumm HISTORICAL RESULTS Monocytes, absolute 0.8 0.2 - 1.2 K/cumm HISTORICAL RESULTS Eosinophils, abs 0.1 0.0 - 0.5 K/cumm HISTORICAL RESULTS Basophils, abs 0.0 0.0 - 0.2 K/cumm HISTORICAL RESULTS Blood specimen (specimen) 11/06/2012 10:38 AM CDT Burt Dos Santos MD PhD LAB BLOOD ORDERABLES Final Result HISTORICAL RESULTS * (ABNORMAL) Plasma comprehensive metabolic panel (08/07/2012 10:00 AM CDT) Sodium 137 135 - 145 mmol/L HISTORICAL RESULTS K, pl 5.1(H) 3.3 - 4.9 mmol/L HISTORICAL RESULTS Chloride 102 97 - 110 mmol/L HISTORICAL RESULTS CO2 29 22 - 32 mmol/L HISTORICAL RESULTS A. gap 6 0 - 16 mmol/L HISTORICAL RESULTS Glucose 101 65 - 199 mg/dl HISTORICAL RESULTS BUN 16 8 - 25 mg/dl HISTORICAL RESULTS Creatinine 0.82 0.70 - 1.30 mg/dl HISTORICAL RESULTS Calcium 9.3 8.6 - 10.3 mg/dl HISTORICAL RESULTS Protein, pl 6.4(L) 6.5 - 8.5 g/dl HISTORICAL RESULTS Alb 4.3 3.6 - 5.0 g/dl HISTORICAL RESULTS Bilirubin 0.4 0.3 - 1.1 mg/dl HISTORICAL RESULTS Alk phos 70 38 - 126 Units/L HISTORICAL RESULTS AST 27 11 - 47 Units/L HISTORICAL RESULTS ALT 50 7 - 53 Units/L HISTORICAL RESULTS Plasma 08/07/2012 10:0 0 AM CDT Burt Dos Santos MD PhD LAB BLOOD ORDERABLES Final Result Performing Organization Address [facility] de Phone Number HISTORICAL RESULTS * Serum lactate dehydrogenase (LDH) (08/07/2012 10:00 AM CDT) Lactate dehydrogenase (LDH) 190 100 - 250 Units/L HISTORICAL RESULTS Serum 08/07/2012 10:0 0 AM CDT Burt Dos Santos MD PhD LAB BLOOD ORDERABLES Final Result Performing Organization Address [facility] de Phone Number HISTORICAL RESULTS * (ABNORMAL) Blood cell count [CBC] panel, 7 CAM (08/07/2012 9:53 AM CDT) WBC 5.2 3.8 - 9.8 K/cumm HISTORICAL RESULTS MPV 10.5(H) 6.8 - 10.4 fl HISTORICAL RESULTS RBC 4.82 4.50 - 5.70 M/cumm HISTORICAL RESULTS Neutrophils 56.4 38.7 - 74.5 % HISTORICAL RESULTS Hgb 15.1 13.8 - 17.2 g/dl HISTORICAL RESULTS Lymphocytes 29.7 20.0 - 54.3 % HISTORICAL RESULTS Hct 44.5 40.7 - 50.3 % HISTORICAL RESULTS Monos 11.3 4.3 - 13.5 % HISTORICAL RESULTS MCV 92.2 80.0 - 97.6 fl HISTORICAL RESULTS Eosinophils 2.1 0.0 - 6.0 % HISTORICAL RESULTS MCH 31.3 26.7 - 33.7 pg HISTORICAL RESULTS Basophils 0.5 0.0 - 3.0 % HISTORICAL RESULTS MCHC 33.9 32.7 - 35.5 g/dl HISTORICAL RESULTS Neutrophils, abs 2.9 1.8 - 6.6 K/cumm HISTORICAL RESULTS Rdw 12.8 11.8 - 14.6 SD HISTORICAL RESULTS Lymphocytes, abs 1.6 1.2 - 3.3 K/cumm HISTORICAL RESULTS Platelets 120(L) 140 - 440 K/cumm HISTORICAL RESULTS Monocytes, absolute 0.6 0.2 - 1.2 K/cumm HISTORICAL RESULTS Eosinophils, abs 0.1 0.0 - 0.5 K/cumm HISTORICAL RESULTS Basophils, abs 0.0 0.0 - 0.2 K/cumm HISTORICAL RESULTS Blood specimen (specimen) 08/07/2012 9:53 AM CDT Burt Dos Santos MD PhD LAB BLOOD ORDERABLES Final Result HISTORICAL RESULTS documented in this encounter Visit Diagnoses Diagnosis Chronic lymphoid leukemia (HCC) documented in this encounter Additional Health Concerns Infection Onset Date Last Indicated Resolved Time C. difficile Comment:Backloaded December 21, 2010 09/21/2010 09/21/2010 documented as of this encounter
--- OUTSIDE RECORDS SUMMARY | 2024-02-22 08:34 | XMS_ITS | Encounter Summary ---
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 RED SANCHEZ M.D. FINAL REPORT The radiology attending physician has personally reviewed this study, and has reviewed and/or edited this written report and agrees with it. ACC# ??Date Time ??Exam [id number] Jun 21, 2016 09:01:[id number] Neck SoftTissue w cont EXAMINATION: ?? CT of the neck with contrast HISTORY: Chronic lymphocytic leukemia TECHNIQUE: CT of the neck was performed according to standard protocol after the uneventful administration of intravenous contrast. Contrast information: 65 mL Optiray-350 COMPARISON: 12/22/2015 FINDINGS: There is unchanged cervical lymphadenopathy. For example, a left level 2 lymph node measures 1.4 x 2.2 cm, previously 1.3 x 2.2 cm in (-121). In addition, a right supraclavicular lymph node measures 1.2 x 1.5 cm, previously 1.7 x 1.1 cm (-137). The lymphadenopathy involves all cervical stations as well as the mediastinum. ??A left thyroid nodule is unchanged. The muscles of the neck are [...] are normal. The limited view of the [place] is unremarkable. The visualized portions of the orbits are normal. The spinal canal is normal in caliber. Degenerative changes are seen in the cervical spine. Neural foramina are normal. Limited examination of the superior thorax shows no pulmonary infiltrate, suspicious nodules, or pleural effusions. IMPRESSION: ?? 1. Stable lymphadenopathy in the neck and upper chest. Requested By: BURT MCGINNIS M.D. Dictated By: ?? RED SANCHEZ M.D. ??on Jun 21 2016 ??9:46A This document has been electronically signed by: KAMINI VICTOR M.D. on Jun 21 2016 ??1:32P [id number] Procedure Note Miscellaneous, Not In File / Provider, MD Ilda - 07/27/2016 Terence LOCKETT M.D. FINAL REPORT The radiology attending physician has personally reviewed this study, and has reviewed and/or edited this written report and agrees with it. ACC# Date Time Exam [id number] Jun 21, 2016 09:01:[address] Neck SoftTissue w cont EXAMINATION: CT of the neck with contrast HISTORY: Chronic lymphocytic leukemia TECHNIQUE: CT of the neck was performed according to standard protocol after the uneventful administration of intravenous contrast. Contrast information: 65 mL Optiray-350 COMPARISON: 12/22/2015 FINDINGS: There is unchanged cervical lymphadenopathy. For example, a left level 2 lymph node measures 1.4 x 2.2 cm, previously 1.3 x 2.2 cm in (-121). In addition, a right supraclavicular lymph node measures 1.2 x 1.5 cm, previously 1.7 x 1.1 cm (-137). The lymphadenopathy involves all cervical stations as well as the mediastinum. A left thyroid nodule is unchanged. The muscles of the neck are [...] are normal. The limited view of the [place] is unremarkable. The visualized portions of the orbits are normal. The spinal canal is normal in caliber. Degenerative changes are seen in the cervical spine. Neural foramina are normal. Limited examination of the superior thorax shows no pulmonary infiltrate, suspicious nodules, or pleural effusions. IMPRESSION: 1. Stable lymphadenopathy in the neck and upper chest. Requested By: BURT MCGINNIS M.D. Dictated By: RED SANCHEZ M.D. on Jun 21 2016 9:46A This document has been electronically signed by: KAMINI VICTOR M.D. on Jun 21 2016 1:32P [id number] us Not In File Miscellaneous IMG CT PROCEDURES [place] l Result * CT Chest W Contrast (06/21/2016 2:01 PM CDT) Anatomical Region Laterality Modality Body N/A Computed Tomogra phy 06/21/2016 2:01 PM CDT Narrative 06/21/2016 2:01 PM CDT INCK HOWELL MD FINAL REPORT ACC# ??Date Time ??Exam [id number] Jun 21, 2016 09:01:[address] Abd ??and ??Pelvis with cont [id number] Jun 21, 2016 09:01:[address] Chest with contrast EXAMINATION: ?CT OF THE CHEST, ABDOMEN AND PELVIS WITH INTRAVENOUS CONTRAST HISTORY: ??65-year-old male patient with history of chronic lymphocytic leukemia. Evaluate for metastases. TECHNIQUE: ??Computed axial tomographic images of the chest, abdomen and pelvis were obtained after the intravenous administration of 100 cc of Optiray-350. There were no immediate complications after contrast injection. FINDINGS: ??Comparison is made to 12/22/2015 CT. Chest: Chronic calcified 6 mm right anterior costophrenic granuloma ( slice -265). Otherwise no suspicious pulmonary nodules. No pleural or pericardial effusion. Table 2.3 x 1.2 cm left thyroid nodule. Unremarkable right thyroid gland. No supraclavicular lymphadenopathy. Redemonstration of multiple bilateral axillary and mediastinal lymph nodes. Index right paratracheal node measures 1.8 x 1.2 cm (slice -257), previously 1.9 x 1.2 cm, unchanged. Chronic calcified mediastinal and hilar lymph nodes from prior granulomatous infection. No mild diffuse circumferential esophageal thickening may reflect reflux or inflammation. Heart and great vessels unremarkable apart from few scattered atherosclerotic vascular calcifications. Abdomen and Pelvis: Unremarkable appearance of the liver, pancreas. Previous cholecystectomy. No biliary dilatation. Chronic calcified splenic granulomata. Unchanged nonobstructing 12 mm left renal lower pole calyceal stone. No hydronephrosis. There is chronic diffuse mesenteric inflammatory stranding compatible with mesenteric panniculitis, unchanged over multiple priors. Innumerable prominent retroperitoneal, mesenteric, pelvic and inguinal lymph nodes are redemonstrated, with index left para-aortic node measuring in the one 1.4 x 2.2 cm (slice -595). A conglomeration of right-sided mesenteric nodes measures 4 x 3.2 cm (slice 625), unchanged. The right external iliac node measures 4 x 2.3 cm (slice -801), unchanged. Scattered diffuse uncomplicated colonic diverticulosis. Normal appendix. Scattered atherosclerotic vascular calcifications in the aorta and branch vessels. Retroaortic left renal vein. Chronic dystrophic calcifications in the prostate likely from previous inflammation/infection. Unremarkable urinary bladder. Degenerative changes throughout the spine. IMPRESSION: ?? 1. Since 12/22/2015, unchanged extensive lymphadenopathy above and below the diaphragm compatible with known CLL. 2. Nonobstructing left renal calyceal stone. 3. Chronic calcified granulomata within the lungs, mediastinum and spleen. Requested By: BURT MCGINNIS M.D. Dictated By: ?? NICK HOWELL MD ??on Jun 21 2016 10:07A This document has been electronically signed by: NICK HOWELL MD on Jun 21 2016 10:07A [id number] Procedure Note Miscellaneous, Not In File / Provider, MD Ilda - 07/27/2016 NICK HOWELL MD FINAL REPORT ACC# Date Time Exam [id number] Jun 21, 2016 09:01:[address] Abd and Pelvis with cont [id number] Jun 21, 2016 09:01:[address] Chest with contrast EXAMINATION: CT OF THE CHEST, ABDOMEN AND PELVIS WITH INTRAVENOUS CONTRAST HISTORY: 65-year-old male patient with history of chronic lymphocytic leukemia. Evaluate for metastases. TECHNIQUE: Computed axial tomographic images of the chest, abdomen and pelvis were obtained after the intravenous administration of 100 cc of Optiray-350. There were no immediate complications after contrast injection. FINDINGS: Comparison is made to 12/22/2015 CT. Chest: Chronic calcified 6 mm right anterior costophrenic granuloma ( slice -265). Otherwise no suspicious pulmonary nodules. No pleural or pericardial effusion. Table 2.3 x 1.2 cm left thyroid nodule. Unremarkable right thyroid gland. No supraclavicular lymphadenopathy. Redemonstration of multiple bilateral axillary and mediastinal lymph nodes. Index right paratracheal node measures 1.8 x 1.2 cm (slice -257), previously 1.9 x 1.2 cm, unchanged. Chronic calcified mediastinal and hilar lymph nodes from prior granulomatous infection. No mild diffuse circumferential esophageal thickening may reflect reflux or inflammation. Heart and great vessels unremarkable apart from few scattered atherosclerotic vascular calcifications. Abdomen and Pelvis: Unremarkable appearance of the liver, pancreas. Previous cholecystectomy. No biliary dilatation. Chronic calcified splenic granulomata. Unchanged nonobstructing 12 mm left renal lower pole calyceal stone. No hydronephrosis. There is chronic diffuse mesenteric inflammatory stranding compatible with mesenteric panniculitis, unchanged over multiple priors. Innumerable prominent retroperitoneal, mesenteric, pelvic and inguinal lymph nodes are redemonstrated, with index left para-aortic node measuring in the one 1.4 x 2.2 cm (slice -595). A conglomeration of right-sided mesenteric nodes measures 4 x 3.2 cm (slice 625), unchanged. The right external iliac node measures 4 x 2.3 cm (slice -801), unchanged. Scattered diffuse uncomplicated colonic diverticulosis. Normal appendix. Scattered atherosclerotic vascular calcifications in the aorta and branch vessels. Retroaortic left renal vein. Chronic dystrophic calcifications in the prostate likely from previous inflammation/infection. Unremarkable urinary bladder. Degenerative changes throughout the spine. IMPRESSION: 1. Since 12/22/2015, unchanged extensive lymphadenopathy above and below the diaphragm compatible with known CLL. 2. Nonobstructing left renal calyceal stone. 3. Chronic calcified granulomata within the lungs, mediastinum andspleen. Requested By: BURT MCGINNIS M.D. Dictated By: NICK HOWELL MD on Jun 21 2016 10:07A This document has been electronically signed by: NICK HOWELL MD on Jun 21 2016 10:07A [id number] us Not In File Miscellaneous IMG CT PROCEDURES [place] l Result * CT Abdomen Pelvis W Contrast (06/21/2016 2:01 PM CDT) Anatomical Region Laterality Modality Body N/A Computed Tomogra phy 06/21/2016 2:01 PM CDT Narrative 06/21/2016 2:01 PM CDT NICK HOWELL MD FINAL REPORT ACC# ??Date Time ??Exam [id number] Jun 21, 2016 09:01:[address] Abd ??and ??Pelvis with cont [id number] Jun 21, 2016 09:01:[address] Chest with contrast EXAMINATION: ?CT OF THE CHEST, ABDOMEN AND PELVIS WITH INTRAVENOUS CONTRAST HISTORY: ??65-year-old male patient with history of chronic lymphocytic leukemia. Evaluate for metastases. TECHNIQUE: ??Computed axial tomographic images of the chest, abdomen and pelvis were obtained after the intravenous administration of 100 cc of Optiray-350. There were no immediate complications after contrast injection. FINDINGS: ??Comparison is made to 12/22/2015 CT. Chest: Chronic calcified 6 mm right anterior costophrenic granuloma ( slice -265). Otherwise no suspicious pulmonary nodules. No pleural or pericardial effusion. Table 2.3 x 1.2 cm left thyroid nodule. Unremarkable right thyroid gland. No supraclavicular lymphadenopathy. Redemonstration of multiple bilateral axillary and mediastinal lymph nodes. Index right paratracheal node measures 1.8 x 1.2 cm (slice -257), previously 1.9 x 1.2 cm, unchanged. Chronic calcified mediastinal and hilar lymph nodes from prior granulomatous infection. No mild diffuse circumferential esophageal thickening may reflect reflux or inflammation. Heart and great vessels unremarkable apart from few scattered atherosclerotic vascular calcifications. Abdomen and Pelvis: Unremarkable appearance of the liver, pancreas. Previous cholecystectomy. No biliary dilatation. Chronic calcified splenic granulomata. Unchanged nonobstructing 12 mm left renal lower pole calyceal stone. No hydronephrosis. There is chronic diffuse mesenteric inflammatory stranding compatible with mesenteric panniculitis, unchanged over multiple priors. Innumerable prominent retroperitoneal, mesenteric, pelvic and inguinal lymph nodes are redemonstrated, with index left para-aortic node measuring in the one 1.4 x 2.2 cm (slice -595). A conglomeration of right-sided mesenteric nodes measures 4 x 3.2 cm (slice 625), unchanged. The right external iliac node measures 4 x 2.3 cm (slice -801), unchanged. Scattered diffuse uncomplicated colonic diverticulosis. Normal appendix. Scattered atherosclerotic vascular calcifications in the aorta and branch vessels. Retroaortic left renal vein. Chronic dystrophic calcifications in the prostate likely from previous inflammation/infection. Unremarkable urinary bladder. Degenerative changes throughout the spine. IMPRESSION: ?? 1. Since 12/22/2015, unchanged extensive lymphadenopathy above and below the diaphragm compatible with known CLL. 2. Nonobstructing left renal calyceal stone. 3. Chronic calcified granulomata within the lungs, mediastinum and spleen. Requested By: BURT MCGINNIS M.D. Dictated By: ?? NICK HOWELL MD ??on Jun 21 2016 10:07A This document has been electronically signed by: NICK HOWELL MD on Jun 21 2016 10:07A Procedure Note Miscellaneous, Not In File - 07/27/2016 NICK HOWELL MD FINAL REPORT ACC# Date Time Exam [id number] Jun 21, 2016 09:01:[address] Abd and Pelvis with cont [id number] Jun 21, 2016 09:01:[address] Chest with contrast EXAMINATION: CT OF THE CHEST, ABDOMEN AND PELVIS WITH INTRAVENOUS CONTRAST HISTORY: 65-year-old male patient with history of chronic lymphocytic leukemia. Evaluate for metastases. TECHNIQUE: Computed axial tomographic images of the chest, abdomen and pelvis were obtained after the intravenous administration of 100 cc of Optiray-350. There were no immediate complications after contrast injection. FINDINGS: Comparison is made to 12/22/2015 CT. Chest: Chronic calcified 6 mm right anterior costophrenic granuloma ( slice -265). Otherwise no suspicious pulmonary nodules. No pleural or pericardial effusion. Table 2.3 x 1.2 cm left thyroid nodule. Unremarkable right thyroid gland. No supraclavicular lymphadenopathy. Redemonstration of multiple bilateral axillary and mediastinal lymph nodes. Index right paratracheal node measures 1.8 x 1.2 cm (slice -257), previously 1.9 x 1.2 cm, unchanged. Chronic calcified mediastinal and hilar lymph nodes from prior granulomatous infection. No mild diffuse circumferential esophageal thickening may reflect reflux or inflammation. Heart and great vessels unremarkable apart from few scattered atherosclerotic vascular calcifications. Abdomen and Pelvis: Unremarkable appearance of the liver, pancreas. Previous cholecystectomy. No biliary dilatation. Chronic calcified splenic granulomata. Unchanged nonobstructing 12 mm left renal lower pole calyceal stone. No hydronephrosis. There is chronic diffuse mesenteric inflammatory stranding compatible with mesenteric panniculitis, unchanged over multiple priors. Innumerable prominent retroperitoneal, mesenteric, pelvic and inguinal lymph nodes are redemonstrated, with index left para-aortic node measuring in the one 1.4 x 2.2 cm (slice -595). A conglomeration of right-sided mesenteric nodes measures 4 x 3.2 cm (slice 625), unchanged. The right external iliac node measures 4 x 2.3 cm (slice -801), unchanged. Scattered diffuse uncomplicated colonic diverticulosis. Normal appendix. Scattered atherosclerotic vascular calcifications in the aorta and branch vessels. Retroaortic left renal vein. Chronic dystrophic calcifications in the prostate likely from previous inflammation/infection. Unremarkable urinary bladder. Degenerative changes throughout the spine. IMPRESSION: 1. Since 12/22/2015, unchanged extensive lymphadenopathy above and below the diaphragm compatible with known CLL. 2. Nonobstructing left renal calyceal stone. 3. Chronic calcified granulomata within the lungs, mediastinum andspleen. Requested By: BURT MCGINNIS M.D. Dictated By: NICK HOWELL MD on Jun 21 2016 10:07A This document has been electronically signed by: NICK HOWELL MD on Jun 21 2016 10:07A us Not In File Miscellaneous IMG CT PROCEDURES [place] l Result documented in this encounter Visit Diagnoses Not on filedocumented in this encounter Additional Health Concerns Infection Onset Date Last Indicated Resolved Time C. difficile Comment:Backloaded December 21, 2010 09/21/2010 09/21/2010 documented as of this encounter Care Teams Production [employer] Relationship Specialty Start Date End Date Lenin Ventura MD [address] [id number] PCP - General 04/27/16 07/05/16 documented as of this encounter
--- OUTSIDE RECORDS SUMMARY | 2024-02-22 08:34 | XMS_ITS | Encounter Summary ---
Author Organization [facility] Facility Care Team Providers Care Gre Tutor Name Role Phone Unavailable Primary Care Provider Unavailabl e Encounter Details Date Type Department Care Team (Late st Contact Info) Description 12/22/2015 7:41 AM CDT - 12/22/2015 11:59 PM CDT Hospital Encounter [facility] Burt Gomez MD PhD [address] DIV IM BONE [employer], [address] [place] [phone] Chronic lymphocytic leukemia of b-cell type not having achieved remission (CMS/[facility]); Encounter for examination for normal comparison or control in clinical research program Social History Tobacco Use Types Packs/Day Years Used Date Smoking Tobacco: Never Assessed Sex and Gender Information Value Date Recorded Sex Assigned at Not on file 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 FINAL REPORT The radiology attending physician has personally reviewed this study, and has reviewed and/or edited this written report and agrees with it. ACC# ??Date Time ??Exam [id number] Dec 22, 2015 08:17:[address] Neck SoftTissue w cont EXAMINATION: ?? CT of the neck with contrast HISTORY: 65-year-old male with relapsed small lymphocytic lymphoma presents for imaging followup. TECHNIQUE: CT of the neck was performed according to standard protocol after the uneventful administration of intravenous contrast. Contrast information: 60 mL Optiray-350 COMPARISON: A prior study dated 09/01/2015 is available for comparison. FINDINGS: Review of the topogram demonstrates no abnormality. There are innumerable lymph nodes in the neck and mediastinum with no significant change in size since the prior study. The largest lymph nodes are a left submandibular node measuring 1.3 x 2.2 cm on slice 56/133 and a right supraclavicular node measuring 1.1 x 1.7 cm on slice 68/133. Vessels of the neck demonstrate normal course and caliber. Fascial planes are preserved and the deep spaces of the neck are normal. The visualized airway is widely patent. The base of the skull and the temporal bones are normal. Limited views of the brain including the cerebellum and brainstem are normal. The limited view of the [place] is unremarkable. The visualized portions of the orbits are normal. Postsurgical changes of anterior cervical discectomy and fusion are seen at the C5-C6 level. Limited examination of the superior thorax shows no pulmonary infiltrate, suspicious nodules, or pleural effusions. IMPRESSION: ?? No significant change in neck and mediastinal lymphadenopathy since prior study. Requested By: Dictated By: ?? ANKIT TELLEZ M.D. ??on Dec 22 2015 10:19A This document has been electronically signed by: TAPAN LINCOLN MD, PHD on Dec 22 2015 ??2:27P [id number] Procedure Note Provider, MD Ilda - 07/10/2016 TAPAN LINCOLN MD, PHD ANKIT TELLEZ M.D. FINAL REPORT The radiology attending physician has personally reviewed this study, and has reviewed and/or edited this written report and agrees with it. ACC# Date Time Exam [id number] Dec 22, 2015 08:17:[address] Neck SoftTissue w cont EXAMINATION: CT of the neck with contrast HISTORY: 65-year-old male with relapsed small lymphocytic lymphoma presents for imaging followup. TECHNIQUE: CT of the neck was performed according to standard protocol after the uneventful administration of intravenous contrast. Contrast information: 60 mL Optiray-350 COMPARISON: A prior study dated 09/01/2015 is available for comparison. FINDINGS: Review of the topogram demonstrates no abnormality. There are innumerable lymph nodes in the neck and mediastinum with no significant change in size since the prior study. The largest lymph nodes are a left submandibular node measuring 1.3 x 2.2 cm on slice 56/133 and a right supraclavicular node measuring 1.1 x 1.7 cm on slice 68/133. Vessels of the neck demonstrate normal course and caliber. Fascial planes are preserved and the deep spaces of the neck are normal. The visualized airway is widely patent. The base of the skull and the temporal bones are normal. Limited views of the brain including the cerebellum and brainstem are normal. The limited view of the [place] is unremarkable. The visualized portions of the orbits are normal. Postsurgical changes of anterior cervical discectomy and fusion are seen at the C5-C6 level. Limited examination of the superior thorax shows no pulmonary infiltrate, suspicious nodules, or pleural effusions. IMPRESSION: No significant change in neck and mediastinal lymphadenopathy since prior study. Requested By: Dictated By: ANKIT TELLEZ M.D. on Dec 22 2015 10:19A This document has been electronically signed by: TAPAN LINCOLN MD, PHD on Dec 22 2015 2:27P [id number] Historical Provider MD CODY CT PROCEDURES Final R esult * CT Chest W Contrast (12/22/2015 8:17 AM CDT) Anatomical Region Laterality Modality Body N/A Computed Tomogra phy 12/22/2015 8:17 AM CDT Narrative 12/22/2015 3:24 PM CDT JACKY FERRARI M.D. ANGELICA JOSÉ M.D. FINAL REPORT The radiology attending physician has personally reviewed this study, and has reviewed and/or edited this written report and agrees with it. ACC# ??Date Time ??Exam [id number] Dec 22, 2015 08:17:[address] Chest with contrast [id number] Dec 22, 2015 08:17:[address] Abd & Pelvis with cont EXAMINATION: ?? CHEST, ABDOMEN AND PELVIS CT WITH CONTRAST HISTORY: Chronic lymphocytic leukemia TECHNIQUE: ??Transaxial images of the chest, abdomen and pelvis are obtained during uneventful bolus intravenous injection of 94 mL of Optiray 350. ?? FINDINGS: ??Comparison is made to prior examination dated 09/01/2015. Chest: There is mild atelectasis at the left base. No pneumothorax or pleural effusion. The heart is normal in size without pericardial effusion. No central pulmonary emboli. There are calcified mediastinal nodes. Multiple super clavicular, axillary and mediastinal lymph nodes are unchanged. For reference, a right paratracheal lymph node measures 1.9 x 1.2 cm at table position -145, unchanged. Abdomen/pelvis: There are calcified granulomas in the spleen. The liver, adrenals, pancreas, and kidneys are normal. The gallbladder surgically absent. There are numerous unchanged retroperitoneal, pelvic and mesenteric lymph nodes. For reference, a conglomeration of mesenteric lymph nodes in the right lower quadrant measures 4.1 x 2.2 cm, unchanged at table position -509. There is unchanged stranding at the root of the mesentery. The stomach and small bowel are normal. There is sigmoid diverticulosis without diverticulitis. The great vessels of the abdomen are normal in caliber with mild atherosclerosis. There is a retroaortic left renal vein. The bladder is decompressed. The prostate is present. Bone windows do not show any suspicious osseous lesions. There is mild degenerative disease lumbar spine. IMPRESSION: ?? Unchanged lymphadenopathy in the chest, abdomen and pelvis. Requested By: Dictated By: ?? ANGELICA JOSÉ M.D. ??on Dec 22 2015 ??9:38A This document has been electronically signed by: JACKY FERRARI M.D. on Dec 22 2015 ??3:24P [id number] Procedure Note Provider, MD Ilda - 07/10/2016 JACKY FERRARI M.D. ANGELICA JOSÉ M.D. FINAL REPORT The radiology attending physician has personally reviewed this study, and has reviewed and/or edited this written report and agrees with it. ACC# Date Time Exam [id number] Dec 22, 2015 08:17:[address] Chest with contrast [id number] Dec 22, 2015 08:17:[address] Abd & Pelvis with cont EXAMINATION: CHEST, ABDOMEN AND PELVIS CT WITH CONTRAST HISTORY: Chronic lymphocytic leukemia TECHNIQUE: Transaxial images of the chest, abdomen and pelvis are obtained during uneventful bolus intravenous injection of 94 mL of Optiray 350. FINDINGS: Comparison is made to prior examination dated 09/01/2015. Chest: There is mild atelectasis at the left base. No pneumothorax or pleural effusion. The heart is normal in size without pericardial effusion. No central pulmonary emboli. There are calcified mediastinal nodes. Multiple super clavicular, axillary and mediastinal lymph nodes are unchanged. For reference, a right paratracheal lymph node measures 1.9 x 1.2 cm at table position -145, unchanged. Abdomen/pelvis: There are calcified granulomas in the spleen. The liver, adrenals, pancreas, and kidneys are normal. The gallbladder surgically absent. There are numerous unchanged retroperitoneal, pelvic and mesenteric lymph nodes. For reference, a conglomeration of mesenteric lymph nodes in the right lower quadrant measures 4.1 x 2.2 cm, unchanged at table position -509. There is unchanged stranding at the root of the mesentery. The stomach and small bowel are normal. There is sigmoid diverticulosis without diverticulitis. The great vessels of the abdomen are normal in caliber with mild atherosclerosis. There is a retroaortic left renal vein. The bladder is decompressed. The prostate is present. Bone windows do not show any suspicious osseous lesions. There is mild degenerative disease lumbar spine. IMPRESSION: Unchanged lymphadenopathy in the chest, abdomen and pelvis. Requested By: Dictated By: ANGELICA JOSÉ M.D. on Dec 22 2015 9:38A This document has been electronically signed by: JACKY FERRARI M.D. on Dec 22 2015 3:24P [id number] us Historical Provider MD CODY CT PROCEDURES Final R esult * CT Abdomen Pelvis W Contrast (12/22/2015 8:17 AM CDT) Anatomical Region Laterality Modality Body N/A Computed Tomogra phy 12/22/2015 8:17 AM CDT Narrative 12/22/2015 3:24 PM CDT Terence ERVIN M.D. FINAL REPORT The radiology attending physician has personally reviewed this study, and has reviewed and/or edited this written report and agrees with it. ACC# ??Date Time ??Exam [id number] Dec 22, 2015 08:17:[address] Chest with contrast [id number] Dec 22, 2015 08:17:[address] Abd & Pelvis with cont EXAMINATION: ?? CHEST, ABDOMEN AND PELVIS CT WITH CONTRAST HISTORY: Chronic lymphocytic leukemia TECHNIQUE: ??Transaxial images of the chest, abdomen and pelvis are obtained during uneventful bolus intravenous injection of 94 mL of Optiray 350. ?? FINDINGS: ??Comparison is made to prior examination dated 09/01/2015. Chest: There is mild atelectasis at the left base. No pneumothorax or pleural effusion. The heart is normal in size without pericardial effusion. No central pulmonary emboli. There are calcified mediastinal nodes. Multiple super clavicular, axillary and mediastinal lymph nodes are unchanged. For reference, a right paratracheal lymph node measures 1.9 x 1.2 cm at table position -145, unchanged. Abdomen/pelvis: There are calcified granulomas in the spleen. The liver, adrenals, pancreas, and kidneys are normal. The gallbladder surgically absent. There are numerous unchanged retroperitoneal, pelvic and mesenteric lymph nodes. For reference, a conglomeration of mesenteric lymph nodes in the right lower quadrant measures 4.1 x 2.2 cm, unchanged at table position -509. There is unchanged stranding at the root of the mesentery. The stomach and small bowel are normal. There is sigmoid diverticulosis without diverticulitis. The great vessels of the abdomen are normal in caliber with mild atherosclerosis. There is a retroaortic left renal vein. The bladder is decompressed. The prostate is present. Bone windows do not show any suspicious osseous lesions. There is mild degenerative disease lumbar spine. IMPRESSION: ?? Unchanged lymphadenopathy in the chest, abdomen and pelvis. Requested By: Dictated By: ?? ANGELICA JOSÉ M.D. ??on Dec 22 2015 ??9:38A This document has been electronically signed by: JACKY FERRARI M.D. on Dec 22 2015 ??3:24P [id number] Procedure Note Provider, MD Ilda - 07/10/2016 JACKY FERRARI M.D. ANGELICA JOSÉ M.D. FINAL REPORT The radiology attending physician has personally reviewed this study, and has reviewed and/or edited this written report and agrees with it. ACC# Date Time Exam [id number] Dec 22, 2015 08:17:[address] Chest with contrast [id number] Dec 22, 2015 08:17:[address] Abd & Pelvis with cont EXAMINATION: CHEST, ABDOMEN AND PELVIS CT WITH CONTRAST HISTORY: Chronic lymphocytic leukemia TECHNIQUE: Transaxial images of the chest, abdomen and pelvis are obtained during uneventful bolus intravenous injection of 94 mL of Optiray 350. FINDINGS: Comparison is made to prior examination dated 09/01/2015. Chest: There is mild atelectasis at the left base. No pneumothorax or pleural effusion. The heart is normal in size without pericardial effusion. No central pulmonary emboli. There are calcified mediastinal nodes. Multiple super clavicular, axillary and mediastinal lymph nodes are unchanged. For reference, a right paratracheal lymph node measures 1.9 x 1.2 cm at table position -145, unchanged. Abdomen/pelvis: There are calcified granulomas in the spleen. The liver, adrenals, pancreas, and kidneys are normal. The gallbladder surgically absent. There are numerous unchanged retroperitoneal, pelvic and mesenteric lymph nodes. For reference, a conglomeration of mesenteric lymph nodes in the right lower quadrant measures 4.1 x 2.2 cm, unchanged at table position -509. There is unchanged stranding at the root of the mesentery. The stomach and small bowel are normal. There is sigmoid diverticulosis without diverticulitis. The great vessels of the abdomen are normal in caliber with mild atherosclerosis. There is a retroaortic left renal vein. The bladder is decompressed. The prostate is present. Bone windows do not show any suspicious osseous lesions. There is mild degenerative disease lumbar spine. IMPRESSION: Unchanged lymphadenopathy in the chest, abdomen and pelvis. Requested By: Dictated By: ANGELICA JOSÉ M.D. on Dec 22 2015 9:38A This document has been electronically signed by: JACKY FERRARI M.D. on Dec 22 2015 3:24P [id number] us Historical Provider MD CODY CT PROCEDURES Final R esult documented in this encounter Visit Diagnoses Diagnosis Chronic 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 (HCC) Encounter for examination for normal comparison or control in clinical research program documented in this encounter Additional Health Concerns Infection Onset Date Last Indicated Resolved Time C. difficile Comment:Backloaded December 21, 2010 09/21/2010 09/21/2010 documented as of this encounter
--- OUTSIDE RECORDS SUMMARY | 2024-02-22 08:34 | XMS_ITS | Encounter Summary ---
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
--- OUTSIDE RECORDS SUMMARY | 2024-02-22 08:34 | XMS_ITS | Encounter Summary ---
Author Organization 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; Disorder of esophagus Social History Tobacco Use Types Packs/Day Years Used Date Smoking Tobacco: Never Assessed Sex and Gender Information Value Date Recorded Sex Assigned at Not on file 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 Gender Identity Not on file Sexual Orientation Not on file documented as of this encounter Plan of Treatment Not on file documented as of this encounter Procedures Procedure Name Priority Date/Time Associated Diagnosis Comments DISCHARGE LABORATORY CUMULATIVE REPORT 11/26/2014 CT ABDOMEN PELVIS W CONTRAST Routine 11/25/2014 9:[address] CHEST W CONTRAST Routine 11/25/2014 9 :[address] SOFT TISSUE NECK W CONTRAST Routine 11/25/2014 9:06 AM CDT BLOOD CREATININE, POINT OF CARE Routine 11/25/2014 8:43 AM CDT documented in this encounter Results * DISCHARGE LABORATORY CUMULATIVE REPORT (11/26/2014) Narrative 11/26/2014 Ordered by an unspecified provider. us Historical Provider LAB BLOOD ORDERABLES [place] l Result * CT Chest W Contrast (11/25/2014 9:06 AM CDT) Anatomical Region Laterality Modality Body N/A Computed Tomogra phy 11/25/2014 9:06 AM CDT Narrative 11/25/2014 9:56 AM CDT JANKI GERMAIN M.D. FINAL REPORT ACC# ??Date Time ??Exam [id number] Nov 25, 2014 09:06:[id number] Chest with contrast [id number] Nov 25, 2014 09:06:[address] Abd & Pelvis with cont EXAMINATION: ?CT of the chest, abdomen and pelvis with intravenous contrast. HISTORY: ??Non-Hodgkin's lymphoma. TECHNIQUE: ??Transaxial CT images of the chest, abdomen and pelvis were obtained following the uneventful administration of 100 mL of Optiray-350 per routine protocol. FINDINGS: ??Comparison made to chest CT dated 08/23/[address] of the abdomen and pelvis dated 08/07/2012. CHEST: There are increased number and size of bilateral supraclavicular, peritracheal, mediastinal and bilateral axillary lymph nodes. For reference, there is a right subpectoral lymph node seen at slice position -313 measuring 1.5 cm in short axis, previously measuring 0.9 cm. There is a right paratracheal lymph node seen at slice position -329 measuring 1 cm short axis, previously measuring 0.6 cm. Additionally, there is a left axillary lymph node seen at slice position -341 measuring 1.9 cm in short axis, previously measuring 1.6 cm. There is a subcarinal lymph node seen on slice position -441 measuring 1.5 cm in short axis, previously measuring 1.0 cm. Heart size is normal without pericardial effusion. Coronary artery atherosclerotic calcifications are present. The thoracic aorta and main pulmonary artery are normal caliber. Lungs are clear. No focal consolidation, pleural effusion or pneumothorax. Scattered calcified granulomas are present. There are stable calcified precarinal and right hilar lymph nodes. There are 2 separate 3 mm noncalcified pulmonary nodules in the right middle lobe seen at slice position -435, new since the prior study. ABDOMEN/PELVIS: The liver is normal in size and contour. No focal hepatic lesion is identified. Cholecystectomy. No intra or extrahepatic biliary dilatation. The pancreas and adrenal glands are normal. Calcified splenic granulomas are noted. There is mild splenomegaly measuring 15 cm, previously measuring 12.5 cm. Kidneys perfuse symmetrically. No hydronephrosis. There is a stable 1.3 cm nonobstructing stone in the inferior pole collecting system of the left kidney. There are 2, 2 mm nonobstructing calculi within the right intrarenal collecting system. The abdominal aorta is normal caliber. There is diffuse retroperitoneal lymphadenopathy which has progressed since the prior study. Within the root of the mesentery there is new stranding of the mesenteric fat surrounding multiple enlarged lymph nodes. For reference, within the right lower quadrant there is an enlarged lymph node with surrounding and contour stranding measuring 4.7 cm in greatest dimension, previously measuring 3.6 cm. Additionally, within the left hemiabdomen at slice position -651 there is a lymph node measuring 2 cm in short axis, previously measuring 0.6 cm. There are enlarged lymph nodes along the bilateral iliac chains as well as bilateral inguinal lymphadenopathy which has progressed. For reference at slice position -939 there is a left inguinal lymph node measuring 1.8 cm in short axis, previously measuring 1.4 cm. There is questionable circumferential thickening of the distal esophagus which may be due to poor distention. The stomach, small intestine and colon are normal caliber. The appendix is visualized and is normal. There is mild colonic diverticulosis without CT findings of acute diverticulitis. A small fat containing umbilical hernia is noted. Bone windows demonstrate no suspicious lytic or blastic lesion. IMPRESSION: ?? 1. Progression of disease indicated by increasing number as well as size of lymph nodes within the chest, abdomen and pelvis as detailed above. There is new mild splenomegaly presumably indicating lymphomatous involvement. 2. There is new inflammatory stranding of the mesenteric fat in the root of mesentery with multiple enlarged lymph nodes compatible with lymphomas involvement. 3. Questionable circumferential thickening of the distal esophagus which may be due to poor distention, however in the proper clinical setting may indicate esophagitis. Requested By: Dictated By: ?? JANKI GERMAIN M.D. ??on Nov 25 2014 ??9:56A This document has been electronically signed by: JANKI GERMAIN M.D. on Nov 25 2014 ??9:56A [id number] Procedure Note Provider, MD Ilda - 07/03/2016 JANKI GERMAIN M.D. FINAL REPORT ACC# Date Time Exam [id number] Nov 25, 2014 09:06:[address] Chest with contrast [id number] Nov 25, 2014 09:06:[address] Abd & Pelvis with cont EXAMINATION: CT of the chest, abdomen and pelvis with intravenous contrast. HISTORY: Non-Hodgkin's lymphoma. TECHNIQUE: Transaxial CT images of the chest, abdomen and pelvis were obtained following the uneventful administration of 100 mL of Optiray-350 per routine protocol. FINDINGS: Comparison made to chest CT dated 08/23/[address] of the abdomen and pelvis dated 08/07/2012. CHEST: There are increased number and size of bilateral supraclavicular, peritracheal, mediastinal and bilateral axillary lymph nodes. For reference, there is a right subpectoral lymph node seen at slice position -313 measuring 1.5 cm in short axis, previously measuring 0.9 cm. There is a right paratracheal lymph node seen at slice position -329 measuring 1 cm short axis, previously measuring 0.6 cm. Additionally, there is a left axillary lymph node seen at slice position -341 measuring 1.9 cm in short axis, previously measuring 1.6 cm. There is a subcarinal lymph node seen on slice position -441 measuring 1.5 cm in short axis, previously measuring 1.0 cm. Heart size is normal without pericardial effusion. Coronary artery atherosclerotic calcifications are present. The thoracic aorta and main pulmonary artery are normal caliber. Lungs are clear. No focal consolidation, pleural effusion or pneumothorax. Scattered calcified granulomas are present. There are stable calcified precarinal and right hilar lymph nodes. There are 2 separate 3 mm noncalcified pulmonary nodules in the right middle lobe seen at slice position -435, new since the prior study. ABDOMEN/PELVIS: The liver is normal in size and contour. No focal hepatic lesion is identified. Cholecystectomy. No intra or extrahepatic biliary dilatation. The pancreas and adrenal glands are normal. Calcified splenic granulomas are noted. There is mild splenomegaly measuring 15 cm, previously measuring 12.5 cm. Kidneys perfuse symmetrically. No hydronephrosis. There is a stable 1.3 cm nonobstructing stone in the inferior pole collecting system of the left kidney. There are 2, 2 mm nonobstructing calculi within the right intrarenal collecting system. The abdominal aorta is normal caliber. There is diffuse retroperitoneal lymphadenopathy which has progressed since the prior study. Within the root of the mesentery there is new stranding of the mesenteric fat surrounding multiple enlarged lymph nodes. For reference, within the right lower quadrant there is an enlarged lymph node with surrounding and contour stranding measuring 4.7 cm in greatest dimension, previously measuring 3.6 cm. Additionally, within the left hemiabdomen at slice position -651 there is a lymph node measuring 2 cm in short axis, previously measuring 0.6 cm. There are enlarged lymph nodes along the bilateral iliac chains as well as bilateral inguinal lymphadenopathy which has progressed. For reference at slice position -939 there is a left inguinal lymph node measuring 1.8 cm in short axis, previously measuring 1.4 cm. There is questionable circumferential thickening of the distal esophagus which may be due to poor distention. The stomach, small intestine and colon are normal caliber. The appendix is visualized and is normal. There is mild colonic diverticulosis without CT findings of acute diverticulitis. A small fat containing umbilical hernia is noted. Bone windows demonstrate no suspicious lytic or blastic lesion. IMPRESSION: 1. Progression of disease indicated by increasing number as well as size of lymph nodes within the chest, abdomen and pelvis as detailed above. There is new mild splenomegaly presumably indicating lymphomatous involvement. 2. There is new inflammatory stranding of the mesenteric fat in the root of mesentery with multiple enlarged lymph nodes compatible with lymphomas involvement. 3. Questionable circumferential thickening of the distal esophagus which may be due to poor distention, however in the proper clinical setting may indicate esophagitis. Requested By: Dictated By: JANKI GERMAIN M.D. on Nov 25 2014 9:56A This document has been electronically signed by: JANKI GERMAIN M.D. on Nov 25 2014 9:56A [id number] us Historical Provider MD CODY CT PROCEDURES Final R esult * CT Soft Tissue Neck W Contrast (11/25/2014 9:06 AM CDT) Anatomical Region Laterality Modality Head and Neck N/A Computed Tomogra phy 11/25/2014 9:06 AM CDT Narrative 11/26/2014 6:11 PM CDT Terence ESTRADA M.D. FINAL REPORT The radiology attending physician has personally reviewed this study, and has reviewed and/or edited this written report and agrees with it. ACC# ??Date Time ??Exam [id number] Nov 25, 2014 09:06:[address] Neck SoftTissue w cont ACC# ??Date Time ??Exam [id number] Nov 25, 2014 09:06:[address] Neck SoftTissue w cont EXAMINATION: ?? CT of the neck with contrast HISTORY: Small lymphocytic lymphoma TECHNIQUE: CT of the neck was performed according to standard protocol after the uneventful administration of intravenous contrast. Contrast information: 60 mL Optiray-350 COMPARISON: None available. FINDINGS: Review of the topogram demonstrates anterior cervical discectomy and fusion at C5-C6. Pathologically enlarged lymph nodes are seen throughout the cervical chains bilaterally. The muscles of the neck are normal. Vessels of the neck demonstrate normal course and caliber. Fascial planes are preserved and the deep spaces of the neck are normal. The visualized airway is widely patent. The base of the skull and the temporal bones are normal. Limited views of the brain including the cerebellum and brainstem are normal. The limited view of the [place] is unremarkable. The visualized portions of the orbits are normal. Limited examination of the superior thorax shows no pulmonary infiltrate, suspicious nodules, or pleural effusions, please see chest CT for details. ?? IMPRESSION: Progression of disease indicated by pathologically enlarged lymph nodes throughout the bilateral cervical chains. ?? Requested By: Dictated By: ?? MAGGIE GREGORIO M.D. ??on Nov 25 2014 ??1:18P This document has been electronically signed by: NEO PUGH M.D. on Nov 26 2014 ??6:11P [id number] Procedure Note Provider, MD Ilda - 07/03/2016 MANU KEATON, M.D. MAGGIE MITYUL, M.D. FINAL REPORT The radiology attending physician has personally reviewed this study, and has reviewed and/or edited this written report and agrees with it. ACC# Date Time Exam [id number] Nov 25, 2014 09:06:[id number] Neck SoftTissue w cont ACC# Date Time Exam [id number] Nov 25, 2014 09:06:[address] Neck SoftTissue w cont EXAMINATION: CT of the neck with contrast HISTORY: Small lymphocytic lymphoma TECHNIQUE: CT of the neck was performed according to standard protocol after the uneventful administration of intravenous contrast. Contrast information: 60 mL Optiray-350 COMPARISON: None available. FINDINGS: Review of the topogram demonstrates anterior cervical discectomy and fusion at C5-C6. Pathologically enlarged lymph nodes are seen throughout the cervical chains bilaterally. The muscles of the neck are normal. Vessels of the neck demonstrate normal course and caliber. Fascial planes are preserved and the deep spaces of the neck are normal. The visualized airway is widely patent. The base of the skull and the temporal bones are normal. Limited views of the brain including the cerebellum and brainstem are normal. The limited view of the [place] is unremarkable. The visualized portions of the orbits are normal. Limited examination of the superior thorax shows no pulmonary infiltrate, suspicious nodules, or pleural effusions, please see chest CT for details. IMPRESSION: Progression of disease indicated by pathologically enlarged lymph nodes throughout the bilateral cervical chains. Requested By: Dictated By: MAGGIE GREGORIO M.D. on Nov 25 2014 1:18P This document has been electronically signed by: NEO PUGH M.D. on Nov 26 2014 6:11P [id number] us Historical Provider MD CODY CT PROCEDURES Final R esult * CT Abdomen Pelvis W Contrast (11/25/2014 9:06 AM CDT) Anatomical Region Laterality Modality Body N/A Computed Tomogra phy 11/25/2014 9:06 AM CDT Narrative 11/25/2014 9:56 AM CDT JANKI GERMAIN M.D. FINAL REPORT ACC# ??Date Time ??Exam [id number] Nov 25, 2014 09:06:[address] Chest with contrast [id number] Nov 25, 2014 09:06:[id number] Abd & Pelvis with cont EXAMINATION: ?CT of the chest, abdomen and pelvis with intravenous contrast. HISTORY: ??Non-Hodgkin's lymphoma. TECHNIQUE: ??Transaxial CT images of the chest, abdomen and pelvis were obtained following the uneventful administration of 100 mL of Optiray-350 per routine protocol. FINDINGS: ??Comparison made to chest CT dated 08/23/[address] of the abdomen and pelvis dated 08/07/2012. CHEST: There are increased number and size of bilateral supraclavicular, peritracheal, mediastinal and bilateral axillary lymph nodes. For reference, there is a right subpectoral lymph node seen at slice position -313 measuring 1.5 cm in short axis, previously measuring 0.9 cm. There is a right paratracheal lymph node seen at slice position -329 measuring 1 cm short axis, previously measuring 0.6 cm. Additionally, there is a left axillary lymph node seen at slice position -341 measuring 1.9 cm in short axis, previously measuring 1.6 cm. There is a subcarinal lymph node seen on slice position -441 measuring 1.5 cm in short axis, previously measuring 1.0 cm. Heart size is normal without pericardial effusion. Coronary artery atherosclerotic calcifications are present. The thoracic aorta and main pulmonary artery are normal caliber. Lungs are clear. No focal consolidation, pleural effusion or pneumothorax. Scattered calcified granulomas are present. There are stable calcified precarinal and right hilar lymph nodes. There are 2 separate 3 mm noncalcified pulmonary nodules in the right middle lobe seen at slice position -435, new since the prior study. ABDOMEN/PELVIS: The liver is normal in size and contour. No focal hepatic lesion is identified. Cholecystectomy. No intra or extrahepatic biliary dilatation. The pancreas and adrenal glands are normal. Calcified splenic granulomas are noted. There is mild splenomegaly measuring 15 cm, previously measuring 12.5 cm. Kidneys perfuse symmetrically. No hydronephrosis. There is a stable 1.3 cm nonobstructing stone in the inferior pole collecting system of the left kidney. There are 2, 2 mm nonobstructing calculi within the right intrarenal collecting system. The abdominal aorta is normal caliber. There is diffuse retroperitoneal lymphadenopathy which has progressed since the prior study. Within the root of the mesentery there is new stranding of the mesenteric fat surrounding multiple enlarged lymph nodes. For reference, within the right lower quadrant there is an enlarged lymph node with surrounding and contour stranding measuring 4.7 cm in greatest dimension, previously measuring 3.6 cm. Additionally, within the left hemiabdomen at slice position -651 there is a lymph node measuring 2 cm in short axis, previously measuring 0.6 cm. There are enlarged lymph nodes along the bilateral iliac chains as well as bilateral inguinal lymphadenopathy which has progressed. For reference at slice position -939 there is a left inguinal lymph node measuring 1.8 cm in short axis, previously measuring 1.4 cm. There is questionable circumferential thickening of the distal esophagus which may be due to poor distention. The stomach, small intestine and colon are normal caliber. The appendix is visualized and is normal. There is mild colonic diverticulosis without CT findings of acute diverticulitis. A small fat containing umbilical hernia is noted. Bone windows demonstrate no suspicious lytic or blastic lesion. IMPRESSION: ?? 1. Progression of disease indicated by increasing number as well as size of lymph nodes within the chest, abdomen and pelvis as detailed above. There is new mild splenomegaly presumably indicating lymphomatous involvement. 2. There is new inflammatory stranding of the mesenteric fat in the root of mesentery with multiple enlarged lymph nodes compatible with lymphomas involvement. 3. Questionable circumferential thickening of the distal esophagus which may be due to poor distention, however in the proper clinical setting may indicate esophagitis. Requested By: Dictated By: ?? JANKI GERMAIN M.D. ??on Nov 25 2014 ??9:56A This document has been electronically signed by: JANKI GERMAIN M.D. on Nov 25 2014 ??9:56A [id number] Procedure Note Provider, MD Ilda - 07/03/2016 JANKI GERMAIN M.D. FINAL REPORT ACC# Date Time Exam [id number] Nov 25, 2014 09:06:[id number] Chest with contrast [id number] Nov 25, 2014 09:06:[address] Abd & Pelvis with cont EXAMINATION: CT of the chest, abdomen and pelvis with intravenous contrast. HISTORY: Non-Hodgkin's lymphoma. TECHNIQUE: Transaxial CT images of the chest, abdomen and pelvis were obtained following the uneventful administration of 100 mL of Optiray-350 per routine protocol. FINDINGS: Comparison made to chest CT dated 08/23/[address] of the abdomen and pelvis dated 08/07/2012. CHEST: There are increased number and size of bilateral supraclavicular, peritracheal, mediastinal and bilateral axillary lymph nodes. For reference, there is a right subpectoral lymph node seen at slice position -313 measuring 1.5 cm in short axis, previously measuring 0.9 cm. There is a right paratracheal lymph node seen at slice position -329 measuring 1 cm short axis, previously measuring 0.6 cm. Additionally, there is a left axillary lymph node seen at slice position -341 measuring 1.9 cm in short axis, previously measuring 1.6 cm. There is a subcarinal lymph node seen on slice position -441 measuring 1.5 cm in short axis, previously measuring 1.0 cm. Heart size is normal without pericardial effusion. Coronary artery atherosclerotic calcifications are present. The thoracic aorta and main pulmonary artery are normal caliber. Lungs are clear. No focal consolidation, pleural effusion or pneumothorax. Scattered calcified granulomas are present. There are stable calcified precarinal and right hilar lymph nodes. There are 2 separate 3 mm noncalcified pulmonary nodules in the right middle lobe seen at slice position -435, new since the prior study. ABDOMEN/PELVIS: The liver is normal in size and contour. No focal hepatic lesion is identified. Cholecystectomy. No intra or extrahepatic biliary dilatation. The pancreas and adrenal glands are normal. Calcified splenic granulomas are noted. There is mild splenomegaly measuring 15 cm, previously measuring 12.5 cm. Kidneys perfuse symmetrically. No hydronephrosis. There is a stable 1.3 cm nonobstructing stone in the inferior pole collecting system of the left kidney. There are 2, 2 mm nonobstructing calculi within the right intrarenal collecting system. The abdominal aorta is normal caliber. There is diffuse retroperitoneal lymphadenopathy which has progressed since the prior study. Within the root of the mesentery there is new stranding of the mesenteric fat surrounding multiple enlarged lymph nodes. For reference, within the right lower quadrant there is an enlarged lymph node with surrounding and contour stranding measuring 4.7 cm in greatest dimension, previously measuring 3.6 cm. Additionally, within the left hemiabdomen at slice position -651 there is a lymph node measuring 2 cm in short axis, previously measuring 0.6 cm. There are enlarged lymph nodes along the bilateral iliac chains as well as bilateral inguinal lymphadenopathy which has progressed. For reference at slice position -939 there is a left inguinal lymph node measuring 1.8 cm in short axis, previously measuring 1.4 cm. There is questionable circumferential thickening of the distal esophagus which may be due to poor distention. The stomach, small intestine and colon are normal caliber. The appendix is visualized and is normal. There is mild colonic diverticulosis without CT findings of acute diverticulitis. A small fat containing umbilical hernia is noted. Bone windows demonstrate no suspicious lytic or blastic lesion. IMPRESSION: 1. Progression of disease indicated by increasing number as well as size of lymph nodes within the chest, abdomen and pelvis as detailed above. There is new mild splenomegaly presumably indicating lymphomatous involvement. 2. There is new inflammatory stranding of the mesenteric fat in the root of mesentery with multiple enlarged lymph nodes compatible with lymphomas involvement. 3. Questionable circumferential thickening of the distal esophagus which may be due to poor distention, however in the proper clinical setting may indicate esophagitis. Requested By: Dictated By: JANKI GERMAIN M.D. on Nov 25 2014 9:56A This document has been electronically signed by: JANKI GERMAIN M.D. 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 difficile Comment:Backloaded December 21, 2010 09/21/2010 09/21/2010 documented as of this encounter
--- OUTSIDE RECORDS SUMMARY | 2024-02-22 08:34 | XMS_ITS | Encounter Summary ---
Author Organization [facility] Facility Care Team Providers Care Electrician'S Assistant Name Role Phone Unavailable Primary Care Provider Unavailabl e Encounter Details Date Type Department Care Team (Late st Contact Info) Description 03/22/2016 9:27 AM JIG AND FIXTURE REPAIRER - 03/22/2016 11:59 PM JIG AND FIXTURE REPAIRER Hospital Encounter [facility] Burt Gomez MD PhD [address] DIV IM BONE MARROW TRANSPLANT, [address] [place], [place] [id number] Small cell B-cell lymphoma (CMS/HCC); Personal history of nicotine dependence Social History Tobacco Use Types Packs/Day Years Used Date Smoking Tobacco: Never Assessed Sex and Gender Information Value Date Recorded Sex Assigned at Not on file Legal Sex Male 9:45 AM JIG AND FIXTURE REPAIRER Gender Identity Not on file Sexual Orientation Not on file documented as of this encounter Medications at Time of Discharge fluticasone (FLONASE) 50 mcg/actuation nasal spray Administer 2 sprays into each nostril daily 03/08/2015 documented as of this encounter Plan of Treatment Not on file documented as of this encounter Procedures Procedure Name Priority Date/Time Associated Diagnosis Comments BLOOD CELL COUNT Routine 03/22/2016 9:25 AM JIG AND FIXTURE REPAIRER SERUM LACTATE DEHYDROGENASE (LDH) Routine 03/22/2016 9:14 AM JIG AND FIXTURE REPAIRER PLASMA COMPREHENSIVE METABOLIC PANEL Routine 03/22/2016 9:14 AM JIG AND FIXTURE REPAIRER DISCHARGE LABORATORY CUMULATIVE REPORT 03/22/2016 documented in this encounter Results * Blood cell count [CBC] panel, 7 CAM (03/22/2016 9:25 AM JIG AND FIXTURE REPAIRER) WBC 6.4 3.8 - 9.8 K/cumm CDR HISTORICAL RESULTS RBC 4.86 4.50 - 5.70 M/cumm CDR HISTORICAL RESULTS Hgb 15.2 13.8 - 17.2 g/dl CDR HISTORICAL RESULTS Hct 44.0 40.7 - 50.3 % CDR HISTORICAL RESULTS MCV 90.4 80.0 - 97.6 fl CDR HISTORICAL RESULTS MCH 31.2 26.7 - 33.7 pg CDR HISTORICAL RESULTS MCHC 34.5 32.7 - 35.5 g/dl CDR HISTORICAL RESULTS Rdw 13.1 11.8 - 14.6 % CDR HISTORICAL RESULTS Platelets 219 140 - 440 K/cumm CDR HISTORICAL RESULTS MPV 9.6 6.8 - 10.4 fl CDR HISTORICAL RESULTS Neutrophils 55.1 38.7 - 74.5 % CDR HISTORICAL RESULTS Lymphocytes 32.9 20.0 - 54.3 % CDR HISTORICAL RESULTS Monos 10.2 4.3 - 13.5 % CDR HISTORICAL RESULTS Eosinophils 1.3 0.0 - 6.0 % CDR HISTORICAL RESULTS Basophils 0.5 0.0 - 3.0 % CDR HISTORICAL RESULTS Neutrophils, abs 3.5 1.8 - 6.6 K/cumm CDR HISTORICAL RESULTS Lymphocytes, abs 2.1 1.2 - 3.3 K/cumm CDR HISTORICAL RESULTS Monocytes, absolute 0.7 0.2 - 1.2 K/cumm CDR HISTORICAL RESULTS Eosinophils, abs 0.1 0.0 - 0.5 K/cumm CDR HISTORICAL RESULTS Basophils, abs 0.0 0.0 - 0.2 K/cumm CDR HISTORICAL RESULTS Blood specimen (specimen) 03/22/2016 9:25 AM JIG AND FIXTURE REPAIRER Burt Dos Santos MD PhD LAB BLOOD ORDERABLES Final Result CDR HISTORICAL RESULTS * Plasma comprehensive metabolic panel (03/22/2016 9:14 AM JIG AND FIXTURE REPAIRER) Sodium 140 135 - 145 mmol/L CDR HISTORICAL RESULTS K, pl 4.9 3.3 - 4.9 mmol/L CDR HISTORICAL RESULTS CO2 30 22 - 32 mmol/L CDR HISTORICAL RESULTS BUN 20 8 - 25 mg/dl CDR HISTORICAL RESULTS Glucose 136 70 - 199 mg/dl CDR HISTORICAL RESULTS Creatinine 0.92 0.70 - 1.30 mg/dl CDR HISTORICAL RESULTS Calcium 9.9 8.5 - 10.3 mg/dl CDR HISTORICAL RESULTS Chloride 103 97 - 110 mmol/L CDR HISTORICAL RESULTS Alb 4.5 3.5 - 5.0 g/dl CDR HISTORICAL RESULTS AST 28 10 - 50 Units/L CDR HISTORICAL RESULTS ALT 48 7 - 55 Units/L CDR HISTORICAL RESULTS Alk phos 75 40 - 130 Units/L CDR HISTORICAL RESULTS Bilirubin 0.5 0.1 - 1.2 mg/dl CDR HISTORICAL RESULTS Protein, pl 6.8 6.5 - 8.5 g/dl CDR HISTORICAL RESULTS A. gap 7 2 - 15 mmol/L CDR HISTORICAL RESULTS Plasma 03/22/2016 9:14 AM JIG AND FIXTURE REPAIRER Result [facility] Burt Dos Santos MD PhD LAB BLOOD ORDERABLES Final Result Performing Organization Address [facility] de Phone Number CDR HISTORICAL RESULTS * Serum lactate dehydrogenase (LDH) (03/22/2016 9:14 AM JIG AND FIXTURE REPAIRER) Lactate dehydrogenase (LDH) 191 100 - 250 Units/L CDR HISTORICAL RESULTS Serum 03/22/2016 9:14 AM JIG AND FIXTURE REPAIRER Burt Dos Santos MD PhD LAB BLOOD ORDERABLES Final Result Performing Organization Address [facility] Co de Phone Number CDR HISTORICAL RESULTS * DISCHARGE LABORATORY CUMULATIVE REPORT (03/22/2016) Narrative 03/22/2016 Ordered by an unspecified provider. Historical Provider LAB BLOOD ORDERABLES Virginia l Result documented in this encounter Visit Diagnoses Diagnosis Small cell B-cell lymphoma (HCC) Personal history of nicotine dependence documented in this encounter Additional Health Concerns Infection Onset Date Last Indicated Resolved Time C. difficile Comment:Backloaded December 21, 2010 09/21/2010 09/21/2010 documented as of this encounter
--- OUTSIDE RECORDS SUMMARY | 2024-02-22 08:34 | XMS_ITS | Encounter Summary ---
Author Organization [facility] Facility Care Team Providers Care Hand Bulldozer Name Role Phone Unavailable Primary Care Provider Unavailabl e Encounter Details Date Type Department Care Team (Late st Contact Info) Description 08/05/2015 - 12/22/2015 11:59 PM CDT Hospital Encounter [facility] Burt Gomez MD PhD [address] DIV IM BONE MARROW TRANSPLANT, [address] [place] [address] Small cell b-cell lymphoma (CMS/HCC) Social History Tobacco Use Types Packs/Day Years Used Date Smoking Tobacco: Never Assessed Sex and Gender Information Value Date Recorded Sex Assigned at Not on file 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 Gender Identity Not on file Sexual Orientation Not on file documented as of this encounter Medications at Time of Discharge fluticasone (FLONASE) 50 mcg/actuation nasal spray Administer 2 sprays into each nostril daily 03/08/2015 documented as of this encounter Plan of Treatment Not on file documented as of this encounter Procedures Procedure Name Priority Date/Time Associated Diagnosis Comments BLOOD CELL COUNT Routine 12/22/2015 9:43 AM CDT SERUM LACTATE DEHYDROGENASE (LDH) Routine 12/22/2015 9:40 AM CDT SERUM [id number] Routine 12/22/2015 9:40 AM CDT PLASMA COMPREHENSIVE METABOLIC PANEL Routine 12/22/2015 9:40 AM CDT BLOOD CELL COUNT Routine 10/27/2015 8:43 AM CDT SERUM LACTATE DEHYDROGENASE (LDH) Routine 10/27/2015 8:40 AM CDT SERUM IGM, QUANTITATIVE Routine 10/27/2015 8:40 AM CDT SERUM IGG, QUANTITATIVE Routine 10/27/2015 8:40 AM CDT SERUM IGA, QUANTITATIVE Routine 10/27/2015 8:40 AM CDT SERUM [id number] Routine 10/27/2015 8:40 AM CDT PLASMA COMPREHENSIVE METABOLIC PANEL Routine 10/27/2015 8:40 AM CDT BONE MARROW LYMPHOCYTE POPULATION, LEUKEMIA/LYMPHOMA Routine 09/01/2015 10:15 AM CDT BLOOD CELL COUNT Routine 09/01/2015 8:43 AM CDT SERUM LACTATE DEHYDROGENASE (LDH) Routine 09/01/2015 8:35 AM CDT PLASMA COMPREHENSIVE METABOLIC PANEL Routine 09/01/2015 8:35 AM CDT SERUM [id number] Routine 09/01/2015 8:12 AM CDT SURGICAL PATHOLOGY 09/01/2015 DISCHARGE LABORATORY CUMULATIVE REPORT 08/05/2015 documented in this encounter Results * Blood cell count [CBC] panel, 7 CAM (12/22/2015 9:43 AM CDT) WBC 6.9 3.8 - 9.8 K/cumm CDR HISTORICAL RESULTS RBC 4.73 4.50 - 5.70 M/cumm CDR HISTORICAL RESULTS Hgb 14.5 13.8 - 17.2 g/dl CDR HISTORICAL RESULTS Hct 43.0 40.7 - 50.3 % CDR HISTORICAL RESULTS MCV 91.0 80.0 - 97.6 fl CDR HISTORICAL RESULTS MCH 30.7 26.7 - 33.7 pg CDR HISTORICAL RESULTS MCHC 33.8 32.7 - 35.5 g/dl CDR HISTORICAL RESULTS Rdw 13.2 11.8 - 14.6 % CDR HISTORICAL RESULTS Platelets 183 140 - 440 K/cumm CDR HISTORICAL RESULTS MPV 9.7 6.8 - 10.4 fl CDR HISTORICAL RESULTS Neutrophils 57.5 38.7 - 74.5 % CDR HISTORICAL RESULTS Lymphocytes 31.1 20.0 - 54.3 % CDR HISTORICAL RESULTS Monos 9.2 4.3 - 13.5 % CDR HISTORICAL RESULTS Eosinophils 1.4 0.0 - 6.0 % CDR HISTORICAL RESULTS Basophils 0.8 0.0 - 3.0 % CDR HISTORICAL RESULTS Neutrophils, abs 4.0 1.8 - 6.6 K/cumm CDR HISTORICAL RESULTS Lymphocytes, abs 2.1 1.2 - 3.3 K/cumm CDR HISTORICAL RESULTS Monocytes, absolute 0.6 0.2 - 1.2 K/cumm CDR HISTORICAL RESULTS Eosinophils, abs 0.1 0.0 - 0.5 K/cumm CDR HISTORICAL RESULTS Basophils, abs 0.1 0.0 - 0.2 K/cumm CDR HISTORICAL RESULTS Blood specimen (specimen) 12/22/2015 9:43 AM CDT Burt Dos Santos MD PhD LAB BLOOD ORDERABLES Final Result CDR HISTORICAL RESULTS * Plasma comprehensive metabolic panel (12/22/2015 9:40 AM CDT) Sodium 136 135 - 145 mmol/L CDR HISTORICAL RESULTS K, pl 4.8 3.3 - 4.9 mmol/L CDR HISTORICAL RESULTS Chloride 101 97 - 110 mmol/L CDR HISTORICAL RESULTS CO2 29 22 - 32 mmol/L CDR HISTORICAL RESULTS A. gap 6 2 - 15 mmol/L CDR HISTORICAL RESULTS Glucose 167 70 - 199 mg/dl CDR HISTORICAL RESULTS BUN 16 8 - 25 mg/dl CDR HISTORICAL RESULTS Creatinine 0.88 0.70 - 1.30 mg/dl CDR HISTORICAL RESULTS Calcium 9.5 8.5 - 10.3 mg/dl CDR HISTORICAL RESULTS Protein, pl 6.5 6.5 - 8.5 g/dl CDR HISTORICAL RESULTS Alb 4.4 3.5 - 5.0 g/dl CDR HISTORICAL RESULTS Bilirubin 0.4 0.1 - 1.2 mg/dl CDR HISTORICAL RESULTS Alk phos 87 40 - 130 Units/L CDR HISTORICAL RESULTS AST 25 10 - 50 Units/L CDR HISTORICAL RESULTS ALT 32 7 - 55 Units/L CDR HISTORICAL RESULTS Plasma 12/22/2015 9:40 AM CDT Burt Dos Santos MD PhD LAB BLOOD ORDERABLES Final Result Performing Organization Address [facility] de Phone Number CDR HISTORICAL RESULTS * Serum lactate dehydrogenase (LDH) (12/22/2015 9:40 AM CDT) Lactate dehydrogenase (LDH) 171 100 - 250 Units/L CDR HISTORICAL RESULTS Serum 12/22/2015 9:40 AM CDT Burt Dos Santos MD PhD LAB BLOOD ORDERABLES Final Result Performing Organization Address [facility] de Phone Number CDR HISTORICAL RESULTS * Serum [id number] (12/22/2015 9:40 AM CDT) beta-2 microglobulin 2.3 1.0 - 2.5 mg/L CDR HISTORICAL RESULTS Serum 12/22/2015 9:40 AM CDT Burt Dos Santos MD PhD LAB BLOOD ORDERABLES Final Result Performing Organization Address [facility] de Phone Number CDR HISTORICAL RESULTS * Blood cell count [CBC] panel, 7 CAM (10/27/2015 8:43 AM CDT) WBC 5.9 3.8 - 9.8 K/cumm CDR HISTORICAL RESULTS RBC 4.91 4.50 - 5.70 M/cumm CDR HISTORICAL RESULTS Hgb 14.8 13.8 - 17.2 g/dl CDR HISTORICAL RESULTS Hct 44.5 40.7 - 50.3 % CDR HISTORICAL RESULTS MCV 90.7 80.0 - 97.6 fl CDR HISTORICAL RESULTS MCH 30.2 26.7 - 33.7 pg CDR HISTORICAL RESULTS MCHC 33.3 32.7 - 35.5 g/dl CDR HISTORICAL RESULTS Rdw 13.3 11.8 - 14.6 % CDR HISTORICAL RESULTS Platelets 186 140 - 440 K/cumm CDR HISTORICAL RESULTS MPV 9.3 6.8 - 10.4 fl CDR HISTORICAL RESULTS Neutrophils 50.1 38.7 - 74.5 % CDR HISTORICAL RESULTS Lymphocytes 36.3 20.0 - 54.3 % CDR HISTORICAL RESULTS Monos 11.7 4.3 - 13.5 % CDR HISTORICAL RESULTS Eosinophils 1.1 0.0 - 6.0 % CDR HISTORICAL RESULTS Basophils 0.8 0.0 - 3.0 % CDR HISTORICAL RESULTS Neutrophils, abs 2.9 1.8 - 6.6 K/cumm CDR HISTORICAL RESULTS Lymphocytes, abs 2.1 1.2 - 3.3 K/cumm CDR HISTORICAL RESULTS Monocytes, absolute 0.7 0.2 - 1.2 K/cumm CDR HISTORICAL RESULTS Eosinophils, abs 0.1 0.0 - 0.5 K/cumm CDR HISTORICAL RESULTS Basophils, abs 0.0 0.0 - 0.2 K/cumm CDR HISTORICAL RESULTS Blood specimen (specimen) 10/27/2015 8:43 AM CDT Burt Dos Santos MD PhD LAB BLOOD ORDERABLES Final Result CDR HISTORICAL RESULTS * Plasma comprehensive metabolic panel (10/27/2015 8:40 AM CDT) Sodium 141 135 - 145 mmol/L CDR HISTORICAL RESULTS K, pl 4.7 3.3 - 4.9 mmol/L CDR HISTORICAL RESULTS Chloride 104 97 - 110 mmol/L CDR HISTORICAL RESULTS CO2 28 22 - 32 mmol/L CDR HISTORICAL RESULTS A. gap 9 2 - 15 mmol/L CDR HISTORICAL RESULTS Glucose 112 70 - 199 mg/dl CDR HISTORICAL RESULTS BUN 15 8 - 25 mg/dl CDR HISTORICAL RESULTS Creatinine 0.86 0.70 - 1.30 mg/dl CDR HISTORICAL RESULTS Calcium 9.8 8.5 - 10.3 mg/dl CDR HISTORICAL RESULTS Protein, pl 6.7 6.5 - 8.5 g/dl CDR HISTORICAL RESULTS Alb 4.4 3.5 - 5.0 g/dl CDR HISTORICAL RESULTS Bilirubin 0.5 0.1 - 1.2 mg/dl CDR HISTORICAL RESULTS Alk phos 79 40 - 130 Units/L CDR HISTORICAL RESULTS AST 23 10 - 50 Units/L CDR HISTORICAL RESULTS ALT 27 7 - 55 Units/L CDR HISTORICAL RESULTS Plasma 10/27/2015 8:40 AM CDT Burt Dos Santos MD PhD LAB BLOOD ORDERABLES Final Result Performing Organization Address [facility] Phone Number CDR HISTORICAL RESULTS * Serum lactate dehydrogenase (LDH) (10/27/2015 8:40 AM CDT) Lactate dehydrogenase (LDH) 179 100 - 250 Units/L CDR HISTORICAL RESULTS Serum 10/27/2015 8:40 AM CDT Burt Dos Santos MD PhD LAB BLOOD ORDERABLES Final Result Performing Organization Address [facility] Phone Number CDR HISTORICAL RESULTS * Serum [id number]-[id number] (10/27/2015 8:40 AM CDT) beta-2 microglobulin 2.1 1.0 - 2.5 mg/L CDR HISTORICAL RESULTS Serum 10/27/2015 8:40 AM CDT Burt Dos Santos MD PhD LAB BLOOD ORDERABLES Final Result Performing Organization Address [facility] Phone Number CDR HISTORICAL RESULTS * (ABNORMAL) Serum IgM, quantitative (10/27/2015 8:40 AM CDT) IgM <25(L) 40 - 230 mg/dl CDR HISTORICAL RESULTS Serum 10/27/2015 8:40 AM CDT Burt Dos Santos MD PhD LAB BLOOD ORDERABLES Final Result Performing Organization Address [facility] Phone Number CDR HISTORICAL RESULTS * (ABNORMAL) Serum IgG, quantitative (10/27/2015 8:40 AM CDT) IgG 402(L) 700 - 1600 mg/dl CDR HISTORICAL RESULTS Serum 10/27/2015 8:40 AM CDT Burt Dos Santos MD PhD LAB BLOOD ORDERABLES Final Result Performing Organization Address [facility] de Phone Number CDR HISTORICAL RESULTS * (ABNORMAL) Serum IgA, quantitative (10/27/2015 8:40 AM CDT) IgA <50(L) 70 - 400 mg/dl CDR HISTORICAL RESULTS Serum 10/27/2015 8:40 AM CDT Burt Dos Santos MD PhD LAB BLOOD ORDERABLES Final Result Performing Organization Address [facility] de Phone Number CDR HISTORICAL RESULTS * Bone marrow lymphocyte population, leukemia/lymphoma (09/01/2015 10:15 AM CDT) CD3 cells, bone marrow Test Completed HISTORICAL RESULTS CD19 cells, bone marrow Test Completed HISTORICAL RESULTS CD20 cells, bone marrow Test Completed HISTORICAL RESULTS CD45 cells, bone marrow Test Completed HISTORICAL RESULTS [place] cells, bone marrow Test Completed HISTORICAL RESULTS Lambda cells, bone marrow Test Completed HISTORICAL RESULTS Hernández stain, bone marrow Test Completed HISTORICAL RESULTS Leukemia/ lymphoma panel result, bone marrow See separate Surgical Pathology report HISTORICAL RESULTS Bone marrow 09/01/2015 10:1 5 AM CDT Burt Dos Santos MD PhD LAB BLOOD ORDERABLES Final Result Performing Organization Address [facility] de Phone Number HISTORICAL RESULTS * Blood cell count [CBC] panel, 7 CAM (09/01/2015 8:43 AM CDT) WBC 4.8 3.8 - 9.8 K/cumm HISTORICAL RESULTS RBC 4.78 4.50 - 5.70 M/cumm HISTORICAL RESULTS Hgb 14.8 13.8 - 17.2 g/dl HISTORICAL RESULTS Hct 43.3 40.7 - 50.3 % HISTORICAL RESULTS MCV 90.6 80.0 - 97.6 fl HISTORICAL RESULTS MCH 30.9 26.7 - 33.7 pg HISTORICAL RESULTS MCHC 34.1 32.7 - 35.5 g/dl HISTORICAL RESULTS Rdw 13.3 11.8 - 14.6 % HISTORICAL RESULTS Platelets 187 140 - 440 K/cumm HISTORICAL RESULTS MPV 10.0 6.8 - 10.4 fl HISTORICAL RESULTS Neutrophils 53.9 38.7 - 74.5 % HISTORICAL RESULTS Lymphocytes 31.1 20.0 - 54.3 % HISTORICAL RESULTS Monos 12.5 4.3 - 13.5 % HISTORICAL RESULTS Eosinophils 1.7 0.0 - 6.0 % HISTORICAL RESULTS Basophils 0.8 0.0 - 3.0 % HISTORICAL RESULTS Neutrophils, abs 2.6 1.8 - 6.6 K/cumm HISTORICAL RESULTS Lymphocytes, abs 1.5 1.2 - 3.3 K/cumm HISTORICAL RESULTS Monocytes, absolute 0.6 0.2 - 1.2 K/cumm HISTORICAL RESULTS Eosinophils, abs 0.1 0.0 - 0.5 K/cumm HISTORICAL RESULTS Basophils, abs 0.0 0.0 - 0.2 K/cumm HISTORICAL RESULTS Blood specimen (specimen) 09/01/2015 8:43 AM CDT Burt Dos Santos MD PhD LAB BLOOD ORDERABLES Final Result HISTORICAL RESULTS * (ABNORMAL) Plasma comprehensive metabolic panel (09/01/2015 8:35 AM CDT) Sodium 139 135 - 145 mmol/L HISTORICAL RESULTS K, pl 4.7 3.3 - 4.9 mmol/L HISTORICAL RESULTS Chloride 104 97 - 110 mmol/L HISTORICAL RESULTS CO2 27 22 - 32 mmol/L HISTORICAL RESULTS A. gap 8 2 - 15 mmol/L HISTORICAL RESULTS Glucose 112 70 - 199 mg/dl HISTORICAL RESULTS BUN 20 8 - 25 mg/dl HISTORICAL RESULTS Creatinine 0.82 0.70 - 1.30 mg/dl HISTORICAL RESULTS Calcium 9.7 8.5 - 10.3 mg/dl HISTORICAL RESULTS Protein, pl 6.4(L) 6.5 - 8.5 g/dl HISTORICAL RESULTS Alb 4.2 3.5 - 5.0 g/dl HISTORICAL RESULTS Bilirubin 0.4 0.1 - 1.2 mg/dl HISTORICAL RESULTS Alk phos 84 40 - 130 Units/L HISTORICAL RESULTS AST 26 10 - 50 Units/L HISTORICAL RESULTS ALT 27 7 - 55 Units/L HISTORICAL RESULTS Plasma 09/01/2015 8:35 AM CDT Result [facility] Burt Dos Santos MD PhD LAB BLOOD ORDERABLES Final Result Performing Organization Address [facility] de Phone Number HISTORICAL RESULTS * Serum lactate dehydrogenase (LDH) (09/01/2015 8:35 AM CDT) Lactate dehydrogenase (LDH) 211 100 - 250 Units/L HISTORICAL RESULTS Serum 09/01/2015 8:35 AM CDT Result [facility] Burt Dos Santos MD PhD LAB BLOOD ORDERABLES Final Result Performing Organization Address [facility] de Phone Number HISTORICAL RESULTS * Serum [id number] (09/01/2015 8:12 AM CDT) beta-2 microglobulin 2.3 1.0 - 2.5 mg/L HISTORICAL RESULTS Serum 09/01/2015 8:12 AM CDT Result [facility] Burt Dos Santos MD PhD LAB BLOOD ORDERABLES Final Result Performing Organization Address [facility] de Phone Number HISTORICAL RESULTS * Surgical pathology (09/01/2015) Narrative 09/01/2015 Ordered by an unspecified provider. Result [facility] Historical Provider LAB PATHOLOGY ORDERABLES Final Result * DISCHARGE LABORATORY CUMULATIVE REPORT (08/05/2015) Narrative 08/05/2015 Ordered by an unspecified provider. Result [facility] Historical Provider LAB BLOOD ORDERABLES [place] l Result documented in this encounter Visit Diagnoses Diagnosis Small cell B-cell lymphoma (HCC) documented in this encounter Additional Health Concerns Infection Onset Date Last Indicated Resolved Time C. difficile Comment:Backloaded December 21, 2010 09/21/2010 09/21/2010 documented as of this encounter
--- OUTSIDE RECORDS SUMMARY | 2024-02-22 08:34 | XMS_ITS | Encounter Summary ---
Author Organization [facility] Healthcare Address [address] [place] [address] Care Team Providers Care Tower Hoist Operator Name Role Phone Lenin Ventura MD Primary Care Provider [phone] Encounter Details Date Type Department Care Team (Latest Contact Info) Description 06/19/2016 3:42 PM CDT - 06/21/2016 11:59 PM CDT Hospital Encounter [facility] OP INTERIM [phone] Burt Dos Santos MD PhD [address] [facility] BONE MARROW TRANSPLANT, [address] [place] [address] Discharge Disposition: Discharge to home or self care Social History Tobacco Use Types Packs/Day Years Used Date Smoking Tobacco: Never Assessed Sex and Gender Information Value Date Recorded Sex Assigned at Not on file 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 Gender Identity Not on file Sexual Orientation [...] Diagnosis Comments LACTATE DEHYDROGENASE Routine Gen Lab 06/21/2016 9:34 AM CDT COMPREHENSIVE METABOLIC PANEL Routine Gen Lab 06/21/2016 9:34 AM CDT CBC WITH AUTO DIFFERENTIAL Routine Gen Lab 06/21/2016 9:32 AM CDT documented in this encounter Results * Comprehensive metabolic panel (06/21/2016 9:34 AM CDT) Sodium 135 135 - 145 mmol/L [facility] Potassium, pl 4.5 3.3 - 4.9 mmol/L [facility] CO2 22 22 - 32 mmol/L [facility] BUN 16 8 - 25 mg/dL [facility] Glucose 130 70 - 199 mg/dL [facility] Creatinine 0.83 0.70 - 1.30 mg/dL [facility] Calcium 9.4 8.5 - 10.3 mg/dL [facility] Chloride 102 97 - 110 mmol/L [facility] Comment:fixed result mapping Albumin 4.2 3.5 - 5.0 g/dL [facility] AST 38 10 - 50 Units/L [facility] ALT 53 7 - 55 Units/L [facility] Alk phos 65 40 - 130 Units/L [facility] Bilirubin, total 0.7 0.1 - 1.2 mg/dL [facility] Protein, pl 6.6 6.5 - 8.5 g/dL [facility] Anion gap 11 2 - 15 mmol/L [facility] Blood specimen (specimen) 06/21/2016 9:34 AM CDT 06/21/2016 9:42 AM CDT us Burt Dos Santos MD PhD LAB BLOOD ORDERABLES Final Result [facility] Department [place] [address] * Lactate dehydrogenase (LD) (06/21/2016 9:34 AM CDT) Lactate dehydrogenase (LDH) 229 100 - 250 Units/L [facility] Blood specimen (specimen) 06/21/2016 9:34 AM CDT 06/21/2016 9:42 AM CDT Burt Dos Santos MD PhD LAB BLOOD ORDERABLES Final Result [facility] Department [place] [address] * CBC with auto differential (06/21/2016 9:32 AM CDT) [facility] WBC 6.9 3.8 - 9.8 K/cumm [facility] RBC 4.71 4.50 - 5.70 M/cumm [facility] Hgb 14.3 13.8 - 17.2 g/dL [facility] Hct 43.0 40.7 - 50.3 % [facility] Mean Cellular Volume - CAM 91.2 80.0 - 97.6 fL [facility] Mean Cellular Hemoglobin - CAM 30.3 26.7 - 33.7 pg [facility] Mean Cellular Hemoglobin Concentration - CAM 33.2 32.7 - 35.5 g/dL [facility] Rdw 13.1 11.8 - 14.6 % [facility] Plt 185 140 - 440 K/cumm [facility] Mean Platelet Volume - CAM 9.9 6.8 - 10.4 fL [facility] Neutrophil pct 56.8 38.7 - 74.5 % [facility] Lymphocyte pct 30.0 20.0 - 54.3 % [facility] Monos 11.1 4.3 - 13.5 % [facility] Eosinophil pct 1.4 0.0 - 6.0 % [facility] Basophil pct 0.7 0.0 - 3.0 % [facility] Neutrophil abs 3.9 1.8 - 6.6 K/cumm [facility] Lymphocyte abs 2.1 1.2 - 3.3 K/cumm [facility] Monocyte abs 0.8 0.2 - 1.2 K/cumm [facility] Eosinophils, abs 0.1 0.0 - 0.5 K/cumm [facility] Basophil abs 0.0 0.0 - 0.2 K/cumm [facility] Blood specimen (specimen) 06/21/2016 9:32 AM CDT 06/21/2016 9:36 AM CDT Burt Dos Santos MD PhD LAB BLOOD ORDERABLES Final Result [facility] Department of Laboratories [place], [place] [id number] documented in this encounter Visit Diagnoses Not on filedocumented in this encounter Additional Health Concerns Infection Onset Date Last Indicated Resolved Time C. difficile Comment:Backloaded December 21, 2010 09/21/2010 09/21/2010 documented as of this encounter Care Teams Tower Hoist Operator Relationship Specialty Start Date End Date Lenin Ventura MD [id number] [address] PCP - General 04/27/16 07/05/16 documented as of this encounter
--- OUTSIDE RECORDS SUMMARY | 2024-02-22 08:34 | XMS_ITS | Encounter Summary ---
Author Organization [facility] Healthcare Address [address] [place] [address] Care Team Providers Care Director Patient Financial Services Name Role Phone Unavailable Primary Care Provider Unavailabl e Encounter Details Date Type Department Care Team (Latest Contact Info) Description 08/05/2015 - 12/22/2015 11:59 PM CDT Hospital Encounter [facility] OP INTER[facility] [phone] Burt Dos Santos MD PhD [address] DIV IM BONE MARROW TRANSPLANT, [address] [place] [address] Discharge Disposition: Discharge to home or self care Social History Tobacco Use Types Packs/Day Years Used Date Smoking Tobacco: Never Assessed Sex and Gender Information Value Date Recorded Sex Assigned at Not on file 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
--- OUTSIDE RECORDS SUMMARY | 2024-02-22 08:34 | XMS_ITS | Encounter Summary ---
Author Organization [facility] Facility Care Team Providers Care Pile Driving Technician Name Role Phone Unavailable Primary Care Provider Unavailabl e Encounter Details Date Type Department Care Team (Late st Contact Info) Description 09/01/2015 7:07 AM CDT - 09/01/2015 11:59 PM CDT Hospital Encounter 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 ALYSA BREEN M.D. FINAL REPORT The radiology attending physician has personally reviewed this study, and has reviewed and/or edited this written report and agrees with it. ACC# ??Date Time ??Exam [id number] Sep 01, 2015 07:54:[id number] Chest with contrast [id number] Sep 01, 2015 07:54:[id number] Abd & Pelvis with cont ACC# ??Date Time ??Exam [id number] Sep 01, 2015 07:54:[id number] Chest with contrast [id number] Sep 01, 2015 07:54:[id number] Abd & Pelvis with cont EXAMINATION: ?CT of the chest, abdomen, and pelvis with intravenous contrast HISTORY: ??65-year-old man with relapsed small lymphocytic lymphoma. TECHNIQUE: Transaxial computed tomographic images of the chest, abdomen and pelvis were obtained with intravenous contrast ( 90 mL Optiray-350 ) according to standard protocol. No immediate complications following contrast administration. FINDINGS: ??Comparison is made to prior CT of the chest, abdomen, and pelvis from February 16, 2015 Chest: There is no suspicious nodule or mass seen within the lungs. Mild dependent bilateral basilar atelectasis is present. There is no consolidation or edema. No pneumothorax or pleural effusion identified. The tracheobronchial tree is patent along its entire course. Redemonstrated is bilateral supraclavicular, axillary, subpectoral, hilar, subcarinal, and mediastinal lymphadenopathy which is not significantly changed since the prior examination. For example, there is an unchanged right subpectoral node seen at table position -25.5 which measures 2 cm x 1 cm. An unchanged left axillary node measures 2.3 cm x 1.4 cm at table position -41.5. There is an unchanged right paratracheal node measuring 1.9 cm x 1.7 cm at table position -63.5. The great vessels are normal. There is no central pulmonary embolus identified. The heart is normal in size. There is no pericardial effusion. Abdomen/pelvis: The liver is normal with no focal hepatic lesion identified. There is no intrahepatic or extrahepatic biliary ductal dilatation. The gallbladder is surgically absent. Multiple punctate calcifications are seen within the spleen indicative of old granulomatous disease. The pancreas and adrenal glands are normal. There is a nonobstructing 1.3 cm left renal stone. There is no hydronephrosis. Multiple hypoattenuating lesions are seen within both kidneys which are too small to characterize. Diverticulosis is seen within the colon without evidence of diverticulitis. The appendix is normal. The bowel is normal in course and caliber without evidence of obstruction. There is no free fluid or air seen within the abdomen and pelvis. There is unchanged stranding of the mesentery. There is unchanged in portacaval, peripancreatic, mesenteric, retroperitoneal, bilateral inguinal, and bilateral external and internal iliac chain lymphadenopathy. For example, there is a 1 cm x 2.4 cm mesenteric node along the ileocolic chain at table position -425.5 which is unchanged in size. An unchanged right external iliac node measures 4.8 cm x 2.1 cm at table position -599.5. No new lymphadenopathy is identified within the abdomen and pelvis. Calcifications are seen within the prostate gland. The bladder is normal. Bone windows do not demonstrate any suspicious lytic or blastic lesion. There is incompletely visualized spinal fusion hardware and the lower cervical spine. ?? IMPRESSION: 1. ??Unchanged widespread lymphadenopathy within the chest, abdomen, and pelvis ?? Requested By: Dictated By: ?? ALYSA BREEN M.D. ??on Sep 01 2015 ??8:40A This document has been electronically signed by: GUS JEONG M.D. on Sep 01 2015 ??9:27A [id number] Procedure Note Provider, MD Ilda - 07/03/2016 GUS JEONG M.D. ALYSA BREEN M.D. FINAL REPORT The radiology attending physician has personally reviewed this study, and has reviewed and/or edited this written report and agrees with it. ACC# Date Time Exam [id number] Sep 01, 2015 07:54:[id number] Chest with contrast [id number] Sep 01, 2015 07:54:[id number] Abd & Pelvis with cont ACC# Date Time Exam [id number] Sep 01, 2015 07:54:[id number] Chest with contrast [id number] Sep 01, 2015 07:54:[id number] Abd & Pelvis with cont EXAMINATION: CT of the chest, abdomen, and pelvis with intravenous contrast HISTORY: 65-year-old man with relapsed small lymphocytic lymphoma. TECHNIQUE: Transaxial computed tomographic images of the chest, abdomen and pelvis were obtained with intravenous contrast ( 90 mL Optiray-350 ) according to standard protocol. No immediate complications following contrast administration. FINDINGS: Comparison is made to prior CT of the chest, abdomen, and pelvis from February 16, 2015 Chest: There is no suspicious nodule or mass seen within the lungs. Mild dependent bilateral basilar atelectasis is present. There is no consolidation or edema. No pneumothorax or pleural effusion identified. The tracheobronchial tree is patent along its entire course. Redemonstrated is bilateral supraclavicular, axillary, subpectoral, hilar, subcarinal, and mediastinal lymphadenopathy which is not significantly changed since the prior examination. For example, there is an unchanged right subpectoral node seen at table position -25.5 which measures 2 cm x 1 cm. An unchanged left axillary node measures 2.3 cm x 1.4 cm at table position -41.5. There is an unchanged right paratracheal node measuring 1.9 cm x 1.7 cm at table position -63.5. The great vessels are normal. There is no central pulmonary embolus identified. The heart is normal in size. There is no pericardial effusion. Abdomen/pelvis: The liver is normal with no focal hepatic lesion identified. There is no intrahepatic or extrahepatic biliary ductal dilatation. The gallbladder is surgically absent. Multiple punctate calcifications are seen within the spleen indicative of old granulomatous disease. The pancreas and adrenal glands are normal. There is a nonobstructing 1.3 cm left renal stone. There is no hydronephrosis. Multiple hypoattenuating lesions are seen within both kidneys which are too small to characterize. Diverticulosis is seen within the colon without evidence of diverticulitis. The appendix is normal. The bowel is normal in course and caliber without evidence of obstruction. There is no free fluid or air seen within the abdomen and pelvis. There is unchanged stranding of the mesentery. There is unchanged in portacaval, peripancreatic, mesenteric, retroperitoneal, bilateral inguinal, and bilateral external and internal iliac chain lymphadenopathy. For example, there is a 1 cm x 2.4 cm mesenteric node along the ileocolic chain at table position -425.5 which is unchanged in size. An unchanged right external iliac node measures 4.8 cm x 2.1 cm at table position -599.5. No new lymphadenopathy is identified within the abdomen and pelvis. Calcifications are seen within the prostate gland. The bladder is normal. Bone windows do not demonstrate any suspicious lytic or blastic lesion. There is incompletely visualized spinal fusion hardware and the lower cervical spine. IMPRESSION: 1. Unchanged widespread lymphadenopathy within the chest, abdomen, and pelvis Requested By: Dictated By: ALYSA BREEN M.D. on Sep 01 2015 8:40A This document has been electronically signed by: GUS JEONG M.D. on Sep 01 2015 9:27A [id number] Historical Provider MD CODY CT PROCEDURES Final R esult * CT Soft Tissue Neck W Contrast (09/01/2015 7:54 AM CDT) Anatomical Region Laterality Modality Head and Neck N/A Computed Tomogra phy 09/01/2015 7:54 AM CDT Narrative 09/01/2015 2:15 PM CDT JAZMINE LOPEZ M.D. DOM CARTWRIGHT M.D. FINAL REPORT The radiology attending physician has personally reviewed this study, and has reviewed and/or edited this written report and agrees with it. ACC# ??Date Time ??Exam [id number] Sep 01, 2015 07:54:[id number] Neck SoftTissue w cont EXAMINATION: ?? CT of the neck with contrast HISTORY: Small lymphocytic lymphoma, relapsed, on chemotherapy TECHNIQUE: CT of the neck was performed according to standard protocol after the uneventful administration of intravenous contrast. Contrast information: 70 mL Optiray-350 COMPARISON: 02/16/2015 FINDINGS: The study is significantly limited by patient motion. Multiple pathologically increased and enlarged jugulodigastric,cervical chain, supraclavicular, axillary, subpectoral and mediastinal lymph nodes are seen bilaterally. The majority are not appreciably changed in number or size when comparison is made with the prior exam dated 02/16/2015. A few mediastinal lymph ??have minimally decreased in size. Anterior instrumented fusion, C5-C6, with multilevel cervical spine degenerative disc disease, is unchanged. Vessels of the neck demonstrate normal course and caliber. Fascial planes are preserved and the deep spaces of the neck are normal. The visualized airway is widely patent. The base of the skull and the temporal bones are normal. Limited views of the brain including the cerebellum and brainstem are normal.The limited view of the [place] is unremarkable. The visualized portions of the orbits are normal. Limited examination of the superior thorax shows no pulmonary infiltrate, suspicious nodules, or pleural effusions. IMPRESSION: ?? Overall unchanged appearance of diffuse lymphadenopathy, with interval minimal decrease in mediastinal in lymph node size. Requested By: Dictated By: ?? DOM CARTWRIGHT M.D. ??on Sep 01 2015 10:24A This document has been electronically signed by: JAZMINE LOPEZ M.D. on Sep 01 2015 ??2:15P [id number] Procedure Note Provider, MD Ilda - 07/03/2016 JAZMINE LOPEZ M.D. DOM CARTWRIGHT M.D. FINAL REPORT The radiology attending physician has personally reviewed this study, and has reviewed and/or edited this written report and agrees with it. ACC# Date Time Exam [id number] Sep 01, 2015 07:54:[address] Neck SoftTissue w cont EXAMINATION: CT of the neck with contrast HISTORY: Small lymphocytic lymphoma, relapsed, on chemotherapy TECHNIQUE: CT of the neck was performed according to standard protocol after the uneventful administration of intravenous contrast. Contrast information: 70 mL Optiray-350 COMPARISON: 02/16/2015 FINDINGS: The study is significantly limited by patient motion. Multiple pathologically increased and enlarged jugulodigastric,cervical chain, supraclavicular, axillary, subpectoral and mediastinal lymph nodes are seen bilaterally. The majority are not appreciably changed in number or size when comparison is made with the prior exam dated 02/16/2015. A few mediastinal lymph have minimally decreased in size. Anterior instrumented fusion, C5-C6, with multilevel cervical spine degenerative disc disease, is unchanged. Vessels of the neck demonstrate normal course and caliber. Fascial planes are preserved and the deep spaces of the neck are normal. The visualized airway is widely patent. The base of the skull and the temporal bones are normal. Limited views of the brain including the cerebellum and brainstem are normal.The limited view of the [place] is unremarkable. The visualized portions of the orbits are normal. Limited examination of the superior thorax shows no pulmonary infiltrate, suspicious nodules, or pleural effusions. IMPRESSION: Overall unchanged appearance of diffuse lymphadenopathy, with interval minimal decrease in mediastinal in lymph node size. Requested By: Dictated By: DOM CARTWRIGHT M.D. on Sep 01 2015 10:24A This document has been electronically signed by: JAZMINE LOPEZ M.D. on Sep 01 2015 2:15P [id number] us Historical Provider MD CODY CT PROCEDURES Final R esult * CT Abdomen Pelvis W Contrast (09/01/2015 7:54 AM CDT) Anatomical Region Laterality Modality Body N/A Computed Tomogra phy 09/01/2015 7:54 AM CDT Narrative 09/01/2015 9:27 AM CDT GUS JEONG M.D. ALYSA BREEN M.D. FINAL REPORT The radiology attending physician has personally reviewed this study, and has reviewed and/or edited this written report and agrees with it. 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 TECHNIQUE: Transaxial computed tomographic images of the chest, abdomen and pelvis were obtained with intravenous contrast ( 90 mL Optiray-350 ) according to standard protocol. No immediate complications following contrast administration. FINDINGS: ??Comparison is made to prior CT of the chest, abdomen, and pelvis from February 16, 2015 Chest: There is no suspicious nodule or mass seen within the lungs. Mild dependent bilateral basilar atelectasis is present. There is no consolidation or edema. No pneumothorax or pleural effusion identified. The tracheobronchial tree is patent along its entire course. Redemonstrated is bilateral supraclavicular, axillary, subpectoral, hilar, subcarinal, and mediastinal lymphadenopathy which is not significantly changed since the prior examination. For example, there is an unchanged right subpectoral node seen at table position -25.5 which measures 2 cm x 1 cm. An unchanged left axillary node measures 2.3 cm x 1.4 cm at table position -41.5. There is an unchanged right paratracheal node measuring 1.9 cm x 1.7 cm at table position -63.5. The great vessels are normal. There is no central pulmonary embolus identified. The heart is normal in size. There is no pericardial effusion. Abdomen/pelvis: The liver is normal with no focal hepatic lesion identified. There is no intrahepatic or extrahepatic biliary ductal dilatation. The gallbladder is surgically absent. Multiple punctate calcifications are seen within the spleen indicative of old granulomatous disease. The pancreas and adrenal glands are normal. There is a nonobstructing 1.3 cm left renal stone. There is no hydronephrosis. Multiple hypoattenuating lesions are seen within both kidneys which are too small to characterize. Diverticulosis is seen within the colon without evidence of diverticulitis. The appendix is normal. The bowel is normal in course and caliber without evidence of obstruction. There is no free fluid or air seen within the abdomen and pelvis. There is unchanged stranding of the mesentery. There is unchanged in portacaval, peripancreatic, mesenteric, retroperitoneal, bilateral inguinal, and bilateral external and internal iliac chain lymphadenopathy. For example, there is a 1 cm x 2.4 cm mesenteric node along the ileocolic chain at table position -425.5 which is unchanged in size. An unchanged right external iliac node measures 4.8 cm x 2.1 cm at table position -599.5. No new lymphadenopathy is identified within the abdomen and pelvis. Calcifications are seen within the prostate gland. The bladder is normal. Bone windows do not demonstrate any suspicious lytic or blastic lesion. There is incompletely visualized spinal fusion hardware and the lower cervical spine. ?? IMPRESSION: 1. ??Unchanged widespread lymphadenopathy within the chest, abdomen, and pelvis ?? Requested By: Dictated By: ?? ALYAS BREEN M.D. ??on Sep 01 2015 ??8:40A This document has been electronically signed by: GUS JEONG M.D. on Sep 01 2015 ??9:27A [id number] Procedure Note Provider, MD Ilda - 07/03/2016 GUS JEONG M.D. ALYSA BREEN M.D. FINAL REPORT The radiology attending physician has personally reviewed this study, and has reviewed and/or edited this written report and agrees with it. 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 TECHNIQUE: Transaxial computed tomographic images of the chest, abdomen and pelvis were obtained with intravenous contrast ( 90 mL Optiray-350 ) according to standard protocol. No immediate complications following contrast administration. FINDINGS: Comparison is made to prior CT of the chest, abdomen, and pelvis from February 16, 2015 Chest: There is no suspicious nodule or mass seen within the lungs. Mild dependent bilateral basilar atelectasis is present. There is no consolidation or edema. No pneumothorax or pleural effusion identified. The tracheobronchial tree is patent along its entire course. Redemonstrated is bilateral supraclavicular, axillary, subpectoral, hilar, subcarinal, and mediastinal lymphadenopathy which is not significantly changed since the prior examination. For example, there is an unchanged right subpectoral node seen at table position -25.5 which measures 2 cm x 1 cm. An unchanged left axillary node measures 2.3 cm x 1.4 cm at table position -41.5. There is an unchanged right paratracheal node measuring 1.9 cm x 1.7 cm at table position -63.5. The great vessels are normal. There is no central pulmonary embolus identified. The heart is normal in size. There is no pericardial effusion. Abdomen/pelvis: The liver is normal with no focal hepatic lesion identified. There is no intrahepatic or extrahepatic biliary ductal dilatation. The gallbladder is surgically absent. Multiple punctate calcifications are seen within the spleen indicative of old granulomatous disease. The pancreas and adrenal glands are normal. There is a nonobstructing 1.3 cm left renal stone. There is no hydronephrosis. Multiple hypoattenuating lesions are seen within both kidneys which are too small to characterize. Diverticulosis is seen within the colon without evidence of diverticulitis. The appendix is normal. The bowel is normal in course and caliber without evidence of obstruction. There is no free fluid or air seen within the abdomen and pelvis. There is unchanged stranding of the mesentery. There is unchanged in portacaval, peripancreatic, mesenteric, retroperitoneal, bilateral inguinal, and bilateral external and internal iliac chain lymphadenopathy. For example, there is a 1 cm x 2.4 cm mesenteric node along the ileocolic chain at table position -425.5 which is unchanged in size. An unchanged right external iliac node measures 4.8 cm x 2.1 cm at table position -599.5. No new lymphadenopathy is identified within the abdomen and pelvis. Calcifications are seen within the prostate gland. The bladder is normal. Bone windows do not demonstrate any suspicious lytic or blastic lesion. There is incompletely visualized spinal fusion hardware and the lower cervical spine. IMPRESSION: 1. Unchanged widespread lymphadenopathy within the chest, abdomen, and pelvis Requested By: Dictated By: ALYSA BREEN M.D. on Sep 01 2015 8:40A This document has been electronically signed by: GUS JEONG M.D. on Sep 01 2015 9:27A [id number] us Historical Provider MD CODY CT PROCEDURES Final R esult documented in this encounter Visit Diagnoses Diagnosis Chronic lymphocytic leukemia of B-cell type in relapse (HCC) Encounter for examination for normal comparison or control in clinical research program documented in this encounter Additional Health Concerns Infection Onset Date Last Indicated Resolved Time C. difficile Comment:Backloaded December 21, 2010 09/21/2010 09/21/2010 documented as of this encounter
--- OUTSIDE RECORDS SUMMARY | 2024-02-22 08:34 | XMS_ITS | Encounter Summary ---
Author Organization [facility] Facility Care Team Providers Care Data Systems Manager Name Role Phone Unavailable Primary Care Provider Unavailabl e Encounter Details Date Type Department Care Team (Late st Contact Info) Description 12/07/2014 Hospital Encounter [facility] Burt Gomez MD PhD [address] [employer] B[employer]OW [employer], [address] [place] [address] Chronic lymphocytic leukemia of b-cell type not having achieved remission (CMS/HCC); Encounter for examination for normal comparison or control in clinical research program; Anemia Social History Tobacco Use Types Packs/Day Years Used Date Smoking Tobacco: Never Assessed Sex and Gender Information Value Date Recorded Sex Assigned at Not on file Legal Sex 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 Gender Identity Not on file Sexual Orientation Not on file documented as of this encounter Plan of Treatment Not on file documented as of this encounter Procedures Procedure Name Priority Date/Time Associated Diagnosis Comments BONE MARROW LYMPHOCYTE POPULATION, LEUKEMIA/LYMPHOMA Routine 12/07/2014 11:00 AM CDT BIOPSY LYMPH NODE SUPERFICIAL Routine 12/07/2014 9:38 AM CDT US GUIDED NEEDLE PLACEMENT Routine 12/07/2014 9:38 AM CDT DISCHARGE LABORATORY CUMULATIVE REPORT 12/07/2014 SURGICAL PATHOLOGY 12/07/2014 SURGICAL PATHOLOGY 12/07/2014 documented in this encounter Results * Bone marrow lymphocyte population, leukemia/lymphoma (12/07/2014 11:00 AM CDT) CD3 cells, bone marrow Test Completed HISTORICAL RESULTS CD19 cells, bone marrow Test Completed HISTORICAL RESULTS CD20 cells, bone marrow Test Completed HISTORICAL RESULTS CD45 cells, bone marrow Test Completed HISTORICAL RESULTS [place] cells, bone marrow Test Completed HISTORICAL RESULTS Lambda cells, bone marrow Test Completed HISTORICAL RESULTS Hernández stain, bone marrow Test Completed HISTORICAL RESULTS Leukemia/ lymphoma panel result, bone marrow See separate Surgical Pathology report HISTORICAL RESULTS Bone marrow 12/07/2014 11:0 0 AM CDT Burt Dos Santos MD PhD LAB BLOOD ORDERABLES Final Result HISTORICAL RESULTS * Biopsy Lymph Node (12/07/2014 9:38 AM CDT) Anatomical Region Laterality Modality Body N/A X-Ray Angiograph y 12/07/2014 9:38 AM CDT Narrative 12/07/2014 11:03 AM CDT ANGIE CORNELIUS M.D. BROOK SHARP M.D. FINAL REPORT The radiology attending physician has personally reviewed this study, and has reviewed and/or edited this written report and agrees with it. ACC# ??Date Time ??Exam [id number] Dec 07, 2014 09:38:00 60254 Bx Lymph Nd Sprficial [id number] Dec 07, 2014 09:38:00 37265 US Needle guide EXAMINATION: ?ULTRASOUND-GUIDED CORE BIOPSY HISTORY: 64-year-old male with history of small lymphocytic lymphoma, concerning for progression of the disease FINDINGS: TECHNIQUE: The procedure for ultrasound-guided core biopsy was explained to and discussed with the patient. Risks were explained to include, but not be limited to, hemorrhage, infection, injury to adjacent organs, ?? non-diagnostic specimen and adverse reaction to medications administered. The patient voiced understanding and wished to proceed and signed the consent form. The lymph node selected for core biopsy was located in the left groin and measured 3.3 cm x 2.1 cm x 1.9 cm. ??An appropriate site was localized for core biopsy. The patient's overlying skin was prepped and draped in the usual sterile fashion. Local anesthesia was achieved via subcutaneous and deep administration with 10 mL of lidocaine 1%. Under realtime ultrasound guidance, 18 gauge core biopsy needle was advanced into the lymph node and total of 5 core specimens were obtained. ??Three core specimens were placed in formalin and hand delivered to Surgical Pathology for evaluation. Additional two core specimen in saline solution and was collected research coordinator. The patient's skin was cleaned and dressed. The patient tolerated the entire procedure well without immediate complications. Dr. Menjivar, the attending radiologist, was present from the beginning to the end of the procedure. ?? Radiology fellow, Dr. Sharp performed the biopsy. IMPRESSION: ?? 1. Successful ultrasound-guided core needle biopsy of left inguinal lymph node. 2. Please see Surgical Pathology results for final interpretation. Requested By: Dictated By: ?? BROOK SHARP M.D. ??on Dec?2014 10:15A This document has been electronically signed by: ANGIE CORNELIUS M.D. on Dec ??2014 11:03A Procedure Note Provider, MD Ilda - 07/03/2016 ANGIE CORNELIUS M.D. BROOK SHARP M.D. FINAL REPORT The radiology attending physician has personally reviewed this study, and has reviewed and/or edited this written report and agrees with it. ACC# Date Time Exam [id number] Dec 07, 2014 09:38:00 31976 Bx Lymph Nd Sprficial [id number] Dec 07, 2014 09:38:00 23264 US Needle guide EXAMINATION: ULTRASOUND-GUIDED CORE BIOPSY HISTORY: 64-year-old male with history of small lymphocytic lymphoma, concerning for progression of the disease FINDINGS: TECHNIQUE: The procedure for ultrasound-guided core biopsy was explained to and discussed with the patient. Risks were explained to include, but not be limited to, hemorrhage, infection, injury to adjacent organs, non-diagnostic specimen and adverse reaction to medications administered. The patient voiced understanding and wished to proceed and signed the consent form. The lymph node selected for core biopsy was located in the left groin and measured 3.3 cm x 2.1 cm x 1.9 cm. An appropriate site was localized for core biopsy. The patient's overlying skin was prepped and draped in the usual sterile fashion. Local anesthesia was achieved via subcutaneous and deep administration with 10 mL of lidocaine 1%. Under realtime ultrasound guidance, 18 gauge core biopsy needle was advanced into the lymph node and total of 5 core specimens were obtained. Three core specimens were placed in formalin and hand delivered to Surgical Pathology for evaluation. Additional two core specimen in saline solution and was collected research coordinator. The patient's skin was cleaned and dressed. The patient tolerated the entire procedure well without immediate complications. Dr. Menjivar, the attending radiologist, was present from the beginning to the end of the procedure. Radiology fellow, Dr. Sharp performed the biopsy. IMPRESSION: 1. Successful ultrasound-guided core needle biopsy of left inguinal lymph node. 2. Please see Surgical Pathology results for final interpretation. Requested By: Dictated By: BROOK SHARP M.D. on Dec 07 2014 10:15A This document has been electronically signed by: ANGIE CORNELIUS M.D. on Dec 07 2014 11:03A us Historical Provider MD CODY IR PROCEDURES Final R esult * US Guided Needle Placement (12/07/2014 9:38 AM CDT) Anatomical Region Laterality Modality Entire body N/A Ultrasound 12/07/2014 9:38 AM CDT Narrative 12/07/2014 11:03 AM CDT Terence JENKINS M.D. FINAL REPORT The radiology attending physician has personally reviewed this study, and has reviewed and/or edited this written report and agrees with it. ACC# ??Date Time ??Exam [id number] Dec 07, 2014 09:38:00 06543 Bx Lymph Nd Sprficial [id number] Dec 07, 2014 09:38:00 56549 US Needle guide EXAMINATION: ?ULTRASOUND-GUIDED CORE BIOPSY HISTORY: 64-year-old male with history of small lymphocytic lymphoma, concerning for progression of the disease FINDINGS: TECHNIQUE: The procedure for ultrasound-guided core biopsy was explained to and discussed with the patient. Risks were explained to include, but not be limited to, hemorrhage, infection, injury to adjacent organs, ?? non-diagnostic specimen and adverse reaction to medications administered. The patient voiced understanding and wished to proceed and signed the consent form. The lymph node selected for core biopsy was located in the left groin and measured 3.3 cm x 2.1 cm x 1.9 cm. ??An appropriate site was localized for core biopsy. The patient's overlying skin was prepped and draped in the usual sterile fashion. Local anesthesia was achieved via subcutaneous and deep administration with 10 mL of lidocaine 1%. Under realtime ultrasound guidance, 18 gauge core biopsy needle was advanced into the lymph node and total of 5 core specimens were obtained. ??Three core specimens were placed in formalin and hand delivered to Surgical Pathology for evaluation. Additional two core specimen in saline solution and was collected research coordinator. The patient's skin was cleaned and dressed. The patient tolerated the entire procedure well without immediate complications. Dr. Menjivar, the attending radiologist, was present from the beginning to the end of the procedure. ?? Radiology fellow, Dr. Sharp performed the biopsy. IMPRESSION: ?? 1. Successful ultrasound-guided core needle biopsy of left inguinal lymph node. 2. Please see Surgical Pathology results for final interpretation. Requested By: Dictated By: ?? BROOK SHARP M.D. ??on Dec ??2014 10:15A This document has been electronically signed by: ANGIE CORNELIUS M.D. on Dec ??2014 11:03A Procedure Note Provider, MD Ilda - 07/03/2016 ANGIE CORNELIUS M.D. BROOK SHARP M.D. FINAL REPORT The radiology attending physician has personally reviewed this study, and has reviewed and/or edited this written report and agrees with it. ACC# Date Time Exam [id number] Dec 07, 2014 09:38:00 52229 Bx Lymph Nd Sprficial [id number] Dec 07, 2014 09:38:00 61214 US Needle guide EXAMINATION: ULTRASOUND-GUIDED CORE BIOPSY HISTORY: 64-year-old male with history of small lymphocytic lymphoma, concerning for progression of the disease FINDINGS: TECHNIQUE: The procedure for ultrasound-guided core biopsy was explained to and discussed with the patient. Risks were explained to include, but not be limited to, hemorrhage, infection, injury to adjacent organs, non-diagnostic specimen and adverse reaction to medications administered. The patient voiced understanding and wished to proceed and signed the consent form. The lymph node selected for core biopsy was located in the left groin and measured 3.3 cm x 2.1 cm x 1.9 cm. An appropriate site was localized for core biopsy. The patient's overlying skin was prepped and draped in the usual sterile fashion. Local anesthesia was achieved via subcutaneous and deep administration with 10 mL of lidocaine 1%. Under realtime ultrasound guidance, 18 gauge core biopsy needle was advanced into the lymph node and total of 5 core specimens were obtained. Three core specimens were placed in formalin and hand delivered to Surgical Pathology for evaluation. Additional two core specimen in saline solution and was collected research coordinator. The patient's skin was cleaned and dressed. The patient tolerated the entire procedure well without immediate complications. Dr. Menjivar, the attending radiologist, was present from the beginning to the end of the procedure. Radiology fellow, Dr. Sharp performed the biopsy. IMPRESSION: 1. Successful ultrasound-guided core needle biopsy of left inguinal lymph node. 2. Please see Surgical Pathology results for final interpretation. Requested By: Dictated By: BROOK SHARP M.D. on Dec 07 2014 10:15A This document has been electronically signed by: ANGIE CORNELIUS M.D. on Dec 07 2014 11:03A Historical Provider IMG US PROCEDURES Final R esult * Surgical pathology (12/07/2014) Narrative 12/07/2014 Ordered by an unspecified provider. Historical Provider LAB PATHOLOGY ORDERABLES Final Result * Surgical pathology (12/07/2014) Narrative 12/07/2014 Ordered by an unspecified provider. Historical Provider LAB PATHOLOGY ORDERABLES Final Result * DISCHARGE LABORATORY CUMULATIVE REPORT (12/07/2014) Narrative 12/07/2014 Ordered by an unspecified provider. us Historical Provider LAB BLOOD ORDERABLES [place] l Result documented in this encounter Visit Diagnoses Diagnosis Chronic 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 (HCC) Encounter for examination for normal comparison or control in clinical research program Anemia Unspecified anemia documented in this encounter Additional Health Concerns Infection Onset Date Last Indicated Resolved Time C. difficile Comment:Backloaded December 21, 2010 09/21/2010 09/21/2010 documented as of this encounter
--- OUTSIDE RECORDS SUMMARY | 2024-02-22 08:34 | XMS_ITS | Encounter Summary ---
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 Social History Tobacco Use Types Packs/Day Years Used Date Smoking Tobacco: Never Assessed Sex and Gender Information Value Date Recorded Sex Assigned at Not on file Legal Sex Male 9:45 AM [employer] Gender Identity Not on file Sexual Orientation Not on file documented as of this encounter Plan of Treatment Not on file documented as of this encounter Procedures Procedure Name Priority Date/Time Associated Diagnosis Comments DISCHARGE LABORATORY CUMULATIVE REPORT Routine 03/03/2014 12:00 AM [facility] SERUM THYROID-STIMULATING HORMONE (TSH) Routine 10/15/2013 9:50 AM CDT SERUM LACTATE DEHYDROGENASE (LDH) Routine 10/15/2013 9:50 AM CDT PLASMA COMPREHENSIVE METABOLIC PANEL Routine 10/15/2013 9:50 AM CDT BLOOD CELL COUNT Routine 10/15/2013 9:44 AM CDT SERUM LACTATE DEHYDROGENASE (LDH) Routine 04/30/2013 10:03 AM [facility] PLASMA COMPREHENSIVE METABOLIC PANEL Routine 04/30/2013 10:03 AM [facility] BLOOD CELL COUNT Routine 04/30/2013 9:58 AM [facility] documented in this encounter Results * Discharge Laboratory Cumulative Report (03/03/2014 12:00 AM [facility]) 03/03/2014 Narrative HISTORICAL RESULTS - 10/15/2013 11:24 AM CDT ?[facility] ?Department of Laboratories ? [address] [facility] ?[place] [address] Patient Name: ?MICHELINE OLIVO Med Rec Number: ??[id number] Fin Number: ?[id number] Date: ?1950 Sex/Age: ? Male 63 years Admit Date: ?04/22/2013 Discharge Date: ??03/03/2014 Doctor: ?Burt Dos Santos Facility: ?[facility] Location: ?[facility] Chart Printed: ?? 10/15/2013 ??11:24 ?* Abnormal ?? C Critical ?? f Footnote ?? ^ Corrected ?? L Low ?? H High ?i Interp Data ?? @ Reference Lab ? Chart Type: Periodic ? CHEMISTRY ? Standard Blood Chemistry ?Test: ? Sodium ? Plasma Potassium ??Chloride ?Reference: ??[135-145] ??[3.3-4.9] ? [97-110] ?Units: ?mmol/L ? mmol/L ?mmol/L 10/15/2013 ??09:50:00 ?140 ?4.6 ? 104 ?Test: ? Total CO2 ??Anion Gap ??BUN ? Creatinine ?Reference: ??[22-32] ?[0-16] ? [8-25] ??[0.70-1.30] ?Units: ?mmol/L ? mmol/L ? mg/dL ?? mg/dL 10/15/2013 ??09:50:00 ?26 ? 10 ? 17 ?0.84 ?Test: ? Total Bilirubin ??Glucose ?? Total Calcium ?Reference: ??[0.3-1.1] ?[70-199] ??[8.6-10.3] ?Units: ?mg/dL ?mg/dL ? mg/dL 10/15/2013 ??09:50:00 ?0.4 ?128 ? 9.5 ?Test: ? Plasma Total Protein ??Albumin ?Reference: ??[6.5-8.5] ? [3.6-5.0] ?Units: ?g/dL ?g/dL 10/15/2013 ??09:50:00 ?6.4 ??L ?4.2 ?Test: ? Alkaline Phosphatase ??ALT ?AST ?Reference: ??[38-126] ?[7-53] ?? [11-47] ?Units: ?Units/L ? Units/L ??Units/L 10/15/2013 ??09:50:00 ?76 ?63 ??H ?24 ?Test: ? Total LD ?Reference: ??[100-250] ?Units: ?Units/L 10/15/2013 ??09:50:00 ?210 ? Hormones ?Test: ? TSH i ?Reference: ??[0.35-5.50] ?Units: ?mcIUnit/mL 10/15/2013 ??09:50:44 ?2.09 ? CHEMISTRY ? Hormones 10/15/2013 09:50:44 TSH: Interpretive Data Hyperthyroid: ??<0.1 mcIUnit/mL Hypothyroid: ??>12.0 mcIUnit/mL Current interpretive data was last revised on 00. ?HEMATOLOGY ?Test: ? WBC CAM ? RBC CAM ?Hgb CAM ?Reference: ?? [3.8-9.8] ??[4.50-5.70] ??[13.8-17.2] ?Units: ?K/cumm ?M/cumm ?g/dL 10/15/2013 ?? 09:44:55 ?4.4 ? 4.50 ? 14.0 ?Test: ?Hct CAM ?MCV CAM ?MCH CAM ?Reference: ?? [40.7-50.3] ??[80.0-97.6] ??[26.7-33.7] ?Units: ?% ?Cu BRODERICK ? pg 10/15/2013 ?? 09:44:55 ? 41.5 ? 92.2 ? 31.2 ?Test: ? MCHC CAM ?RDW CAM ?Platelet Ct CAM ?Reference: ?? [32.7-35.5] ??[11.8-14.6] ? [140-440] ?Units: ?% ?% ?K/mcL 10/15/2013 ?? 09:44:55 ? 33.8 ? 13.5 ?189 ?Test: ? MPV CAM ?Neutrophil, Auto CAM ?Reference: ?? [6.8-10.4] ? [38.7-74.5] ?Units: ? fL ?% 10/15/2013 ?? 09:44:55 ? 8.9 ?47.2 ?Test: ?Lymphocyte, Auto CAM ??Monocyte, Auto CAM ?Reference: ? [20.0-54.3] ? [4.3-13.5] ?Units: ?% ?% 10/15/2013 ?? 09:44:55 ? 35.7 ?14.1 ??H ?Test: ?Eosinophil, Auto CAM ??Basophil, Auto CAM ?Reference: ?[0.0-6.0] ?[0.0-3.0] ?Units: ?% ?% 10/15/2013 ?? 09:44:55 ?2.4 ?0.6 ?Test: ?Neut Abs Damien ??Lym Abs Damien ??Horry Abs Damien ?Reference: ? [1.8-6.6] ?[1.2-3.3] ?[0.2-1.2] ?Units: ?K/cumm ? K/cumm ? K/cumm 10/15/2013 ?? 09:44:55 ?2.1 ?1.6 ?0.6 ?Test: ?Eos Abs Damien ??Baso Abs Damien ?Reference: ?[0.0-0.5] ?[0.0-0.2] ?Units: ?K/cumm ? K/cumm 10/15/2013 ?? 09:44:55 ?0.1 ?0.0 us Historical Provider MD LAB BLOOD ORDERABLES [place] l Result Performing Organization Address [facility] Co de Phone Number HISTORICAL RESULTS * Serum thyroid-stimulating hormone (TSH) (10/15/2013 9:50 AM CDT) Pathologist [facility] TSH 2.09 0.35 - 5.50 mcIUnits/m l HISTORICAL RESULTS Comment: Interpretive Data Hyperthyroid: ??<0.1 mcIUnit/mL Hypothyroid: ??>12.0 mcIUnit/mL Current interpretive data was last revised on 00. Serum 10/15/2013 9:50 AM CDT Burt Dos Santos MD PhD LAB BLOOD ORDERABLES Final Result Performing Organization Address [facility] de Phone Number HISTORICAL RESULTS * (ABNORMAL) Plasma comprehensive metabolic panel (10/15/2013 9:50 AM CDT) Pathologist [facility] Sodium 140 135 - 145 mmol/L HISTORICAL RESULTS K, pl 4.6 3.3 - 4.9 mmol/L HISTORICAL RESULTS Chloride 104 97 - 110 mmol/L HISTORICAL RESULTS CO2 26 22 - 32 mmol/L HISTORICAL RESULTS A. gap 10 0 - 16 mmol/L HISTORICAL RESULTS Glucose 128 70 - 199 mg/dl HISTORICAL RESULTS BUN 17 8 - 25 mg/dl HISTORICAL RESULTS Creatinine 0.84 0.70 - 1.30 mg/dl HISTORICAL RESULTS Calcium 9.5 8.6 - 10.3 mg/dl HISTORICAL RESULTS Protein, pl 6.4(L) 6.5 - 8.5 g/dl HISTORICAL RESULTS Alb 4.2 3.6 - 5.0 g/dl HISTORICAL RESULTS Bilirubin 0.4 0.3 - 1.1 mg/dl HISTORICAL RESULTS Alk phos 76 38 - 126 Units/L HISTORICAL RESULTS AST 24 11 - 47 Units/L HISTORICAL RESULTS ALT 63(H) 7 - 53 Units/L HISTORICAL RESULTS Plasma 10/15/2013 9:50 AM CDT Burt Dos Santos MD PhD LAB BLOOD ORDERABLES Final Result Performing Organization Address [facility] de Phone Number HISTORICAL RESULTS * Serum lactate dehydrogenase (LDH) (10/15/2013 9:50 AM CDT) Pathologist [facility] Lactate dehydrogenase (LDH) 210 100 - 250 Units/L HISTORICAL RESULTS Serum 10/15/2013 9:50 AM CDT Burt Dos Santos MD PhD LAB BLOOD ORDERABLES Final Result Performing Organization Address [facility] de Phone Number HISTORICAL RESULTS * (ABNORMAL) Blood cell count [CBC] panel, 7 CAM (10/15/2013 9:44 AM CDT) WBC 4.4 3.8 - 9.8 K/cumm HISTORICAL RESULTS RBC 4.50 4.50 - 5.70 M/cumm HISTORICAL RESULTS Hgb 14.0 13.8 - 17.2 g/dl HISTORICAL RESULTS Hct 41.5 40.7 - 50.3 % HISTORICAL RESULTS MCV 92.2 80.0 - 97.6 fl HISTORICAL RESULTS MCH 31.2 26.7 - 33.7 pg HISTORICAL RESULTS MCHC 33.8 32.7 - 35.5 g/dl HISTORICAL RESULTS Rdw 13.5 11.8 - 14.6 % HISTORICAL RESULTS Platelets 189 140 - 440 K/cumm HISTORICAL RESULTS MPV 8.9 6.8 - 10.4 fl HISTORICAL RESULTS Neutrophils 47.2 38.7 - 74.5 % HISTORICAL RESULTS Lymphocytes 35.7 20.0 - 54.3 % HISTORICAL RESULTS Monos 14.1(H) 4.3 - 13.5 % HISTORICAL RESULTS Eosinophils 2.4 0.0 - 6.0 % HISTORICAL RESULTS Basophils 0.6 0.0 - 3.0 % HISTORICAL RESULTS Neutrophils, abs 2.1 1.8 - 6.6 K/cumm HISTORICAL RESULTS Lymphocytes, abs 1.6 1.2 - 3.3 K/cumm HISTORICAL RESULTS Monocytes, absolute 0.6 0.2 - 1.2 K/cumm HISTORICAL RESULTS Eosinophils, abs 0.1 0.0 - 0.5 K/cumm HISTORICAL RESULTS Basophils, abs 0.0 0.0 - 0.2 K/cumm HISTORICAL RESULTS Blood specimen (specimen) 10/15/2013 9:44 AM CDT Burt Dos Santos MD PhD LAB BLOOD ORDERABLES Final Result HISTORICAL RESULTS * (ABNORMAL) Plasma comprehensive metabolic panel (04/30/2013 10:03 AM [facility]) Pathologist [facility] Sodium 138 135 - 145 mmol/L HISTORICAL RESULTS K, pl 5.2(H) 3.3 - 4.9 mmol/L HISTORICAL RESULTS Chloride 101 97 - 110 mmol/L HISTORICAL RESULTS CO2 27 22 - 32 mmol/L HISTORICAL RESULTS A. gap 10 0 - 16 mmol/L HISTORICAL RESULTS Glucose 117 70 - 199 mg/dl HISTORICAL RESULTS BUN 16 8 - 25 mg/dl HISTORICAL RESULTS Creatinine 0.85 0.70 - 1.30 mg/dl HISTORICAL RESULTS Calcium 9.3 8.6 - 10.3 mg/dl HISTORICAL RESULTS Protein, pl 6.5 6.5 - 8.5 g/dl HISTORICAL RESULTS Alb 4.2 3.6 - 5.0 g/dl HISTORICAL RESULTS Bilirubin 0.6 0.3 - 1.1 mg/dl HISTORICAL RESULTS Alk phos 63 38 - 126 Units/L HISTORICAL RESULTS AST 35 11 - 47 Units/L HISTORICAL RESULTS ALT 69(H) 7 - 53 Units/L HISTORICAL RESULTS Plasma 04/30/2013 10:0 3 AM [facility] Burt Dos Santos MD PhD LAB BLOOD ORDERABLES Final Result HISTORICAL RESULTS * Serum lactate dehydrogenase (LDH) (04/30/2013 10:03 AM [facility]) Pathologist [facility] Lactate dehydrogenase (LDH) 233 100 - 250 Units/L HISTORICAL RESULTS Serum 04/30/2013 10:0 3 AM [facility] Burt Dos Santos MD PhD LAB BLOOD ORDERABLES Final Result HISTORICAL RESULTS * Blood cell count [CBC] panel, 7 CAM (04/30/2013 9:58 AM [facility]) Pathologist [facility] WBC 5.7 3.8 - 9.8 K/cumm HISTORICAL RESULTS RBC 4.79 4.50 - 5.70 M/cumm HISTORICAL RESULTS Hgb 14.8 13.8 - 17.2 g/dl HISTORICAL RESULTS Hct 44.1 40.7 - 50.3 % HISTORICAL RESULTS MCV 91.9 80.0 - 97.6 fl HISTORICAL RESULTS MCH 30.9 26.7 - 33.7 pg HISTORICAL RESULTS MCHC 33.7 32.7 - 35.5 g/dl HISTORICAL RESULTS Rdw 13.2 11.8 - 14.6 SD HISTORICAL RESULTS Platelets 151 140 - 440 K/cumm HISTORICAL RESULTS MPV 9.7 6.8 - 10.4 fl HISTORICAL RESULTS Neutrophils 56.6 38.7 - 74.5 % HISTORICAL RESULTS Lymphocytes 31.0 20.0 - 54.3 % HISTORICAL RESULTS Monos 10.5 4.3 - 13.5 % HISTORICAL RESULTS Eosinophils 1.4 0.0 - 6.0 % HISTORICAL RESULTS Basophils 0.5 0.0 - 3.0 % HISTORICAL RESULTS Neutrophils, abs 3.2 1.8 - 6.6 K/cumm HISTORICAL RESULTS Lymphocytes, abs 1.8 1.2 - 3.3 K/cumm HISTORICAL RESULTS Monocytes, absolute 0.6 0.2 - 1.2 K/cumm HISTORICAL RESULTS Eosinophils, abs 0.1 0.0 - 0.5 K/cumm HISTORICAL RESULTS Basophils, abs 0.0 0.0 - 0.2 K/cumm HISTORICAL RESULTS Blood specimen (specimen) 04/30/2013 9:58 AM [facility] Burt Dos Santos MD PhD LAB BLOOD ORDERABLES Final Result HISTORICAL RESULTS documented in this encounter Visit Diagnoses Diagnosis 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 difficile Comment:Backloaded December 21, 2010 09/21/2010 09/21/2010 documented as of this encounter
--- OUTSIDE RECORDS SUMMARY | 2024-02-22 08:34 | XMS_ITS | Encounter Summary ---
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); Personal history of antineoplastic chemotherapy Social History Tobacco Use Types Packs/Day Years Used Date Smoking Tobacco: Never Assessed Sex and Gender Information Value Date Recorded Sex Assigned at Not on file 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 Gender Identity Not on file Sexual Orientation Not on file documented as of this encounter Last Filed Vital Signs Vital Sign Reading Time Taken Comments Blood Pressure 135/77 01/01/2015 4:40 PM CDT Pulse 98 01/01/2015 4:40 PM CDT Temperature - - Respiratory Rate - - Oxygen Saturation 98% 01/01/2015 4:40 PM CDT Inhaled Oxygen Concentration - - Weight 142.9 kg (314 lb 15.9 oz) 01/01/2015 4:41 PM CDT Height 188 cm (6' 2 ) 01/01/2015 4:41 PM CDT Body Mass Index 40.44 01/01/2015 4:41 PM CDT documented in this encounter Plan of Treatment Not on file documented as of this encounter Procedures Procedure Name Priority Date/Time Associated Diagnosis Comments PLASMA PROTHROMBIN TIME (PT) Routine 01/01/2015 5:32 PM CDT PLASMA PARTIAL THROMBOPLASTIN TIME (PTT) Routine 01/01/2015 5:32 PM CDT PLASMA COMPREHENSIVE METABOLIC PANEL Routine 01/01/2015 5:32 PM CDT BLOOD CELL COUNT (CBC) Routine 5 5:32 PM CDT DISCHARGE LABORATORY CUMULATIVE REPORT 01/01/2015 documented in this encounter Results * (ABNORMAL) Plasma partial thromboplastin time (PTT) (01/01/2015 5:32 PM CDT) APTT 24.8(L) 25.0 - 37.0 seconds HISTORICAL RESULTS Comment: Interpretive Data Therapeutic heparin range:60.0 - 94.0 sec based on correlation with therapeutic heparin activity range of 0.3 -0.7 Units/mL. Current interpretive data was last revised on 2011. Plasma 01/01/2015 5:32 PM CDT us Payton Alfred NP LAB BLOOD ORDERABLES Final R esult HISTORICAL RESULTS * Plasma prothrombin time (PT) (01/01/2015 5:32 PM CDT) Prothrombin time (PT) 11.9 9.2 - 13.0 seconds HISTORICAL RESULTS INR 1.10 0.90 - 1.20 HISTORIC AL RESULTS Comment: Interpretive Data Inpatient therapeutic ranges* Atrial fibrillation ?2.0-3.0 INR Venous thrombo-embolism ?2.0-3.0 INR Bioprosthetic heart valve ?* Mechanical heart valve, bileaflet or tilting disk,aortic position ? 2.0-3.0 INR All other,or bileaflet or tilting disk, in mitral position ? 2.5-3.5 INR *See the pharmacy resource directory (PHRED) for an updated copy of the Tool Book at [email or web address] Current Interpretive Data was last revised 2011. Plasma 01/01/2015 5:32 PM CDT Payton Alfred PUBLIC WELFARE WORKER LAB BLOOD ORDERABLES Final R [facility] Performing Organization Address City/[facility]/ZIP Co de Phone Number HISTORICAL RESULTS * Plasma comprehensive metabolic panel (01/01/2015 5:32 PM CDT) Sodium 139 135 - 145 mmol/L HISTORICAL RESULTS K, pl 4.4 3.3 - 4.9 mmol/L HISTORICAL RESULTS Chloride 102 97 - 110 mmol/L HISTORICAL RESULTS CO2 26 22 - 32 mmol/L HISTORICAL RESULTS A. gap 11 0 - 16 mmol/L HISTORICAL RESULTS Glucose 145 70 - 199 mg/dl HISTORICAL RESULTS BUN 22 8 - 25 mg/dl HISTORICAL RESULTS Creatinine 0.95 0.70 - 1.30 mg/dl HISTORICAL RESULTS Calcium 9.2 8.6 - 10.3 mg/dl HISTORICAL RESULTS Protein, pl 6.6 6.5 - 8.5 g/dl HISTORICAL RESULTS Alb 4.2 3.6 - 5.0 g/dl HISTORICAL RESULTS Bilirubin 0.4 0.3 - 1.1 mg/dl HISTORICAL RESULTS Alk phos 96 38 - 126 Units/L HISTORICAL RESULTS AST 30 11 - 47 Units/L HISTORICAL RESULTS ALT 43 7 - 53 Units/L HISTORICAL RESULTS Plasma 01/01/2015 5:32 PM CDT Payton Alfred PUBLIC WELFARE WORKER LAB BLOOD ORDERABLES Final [facility] HISTORICAL RESULTS * (ABNORMAL) Blood cell count (CBC) (01/01/2015 5:32 PM CDT) Basophils 0.5 0.0 - 3.0 % HISTORICAL RESULTS Neutrophils, abs 3.0 1.8 - 6.6 K/cumm HISTORICAL RESULTS Lymphocytes, abs 0.8(L) 1.2 - 3.3 K/cumm HISTORICAL RESULTS Monocytes, absolute 0.4 0.2 - 1.2 K/cumm HISTORICAL RESULTS Eosinophils, abs 0.1 0.0 - 0.5 K/cumm HISTORICAL RESULTS Basophils, abs 0.0 0.0 - 0.2 K/cumm HISTORICAL RESULTS WBC 4.3 3.8 - 9.8 K/cumm HISTORICAL RESULTS RBC 4.08(L) 4.50 - 5.70 M/cumm HISTORICAL RESULTS Hgb 12.4(L) 13.8 - 17.2 g/dl HISTORICAL RESULTS Hct 38.3(L) 40.7 - 50.3 % HISTORICAL RESULTS MCV 93.8 80.0 - 97.6 fl HISTORICAL RESULTS MCH 30.4 26.7 - 33.7 pg HISTORICAL RESULTS MCHC 32.5(L) 32.7 - 35.5 g/dl HISTORICAL RESULTS Rdw 13.4 11.8 - 14.6 % HISTORICAL RESULTS Platelets 252 140 - 440 K/cumm HISTORICAL RESULTS MPV 8.5 6.8 - 10.4 fl HISTORICAL RESULTS Neutrophils 70.7 38.7 - 74.5 % HISTORICAL RESULTS Lymphocytes 18.6(L) 20.0 - 54.3 % HISTORICAL RESULTS Monos 8.8 4.3 - 13.5 % HISTORICAL RESULTS Eosinophils 1.4 0.0 - 6.0 % HISTORICAL RESULTS Blood specimen (specimen) 01/01/2015 5:32 PM CDT us Payton Alfred NP LAB BLOOD ORDERABLES Final R esult HISTORICAL RESULTS * DISCHARGE LABORATORY CUMULATIVE REPORT (01/01/2015) Narrative 01/01/2015 Ordered by an unspecified provider. us Historical Provider LAB BLOOD ORDERABLES Virginia l Result documented in this encounter Visit Diagnoses Diagnosis Cellulitis of left upper extremity Chronic lymphocytic leukemia of B-cell type in relapse (HCC) Personal history of antineoplastic chemotherapy documented in this encounter Additional Health Concerns Infection Onset Date Last Indicated Resolved Time C. difficile Comment:Backloaded December 21, 2010 09/21/2010 09/21/2010 documented as of this encounter
--- OUTSIDE RECORDS SUMMARY | 2024-02-22 08:35 | XMS_ITS | Encounter Summary ---
Author Organization [facility] Facility Care Team Providers Care Administrative Tech Name Role Phone Unavailable Primary Care Provider Unavailabl e Encounter Details Date Type Department Care Team (Latest Contact Info) Description 10/26/2008 1:03 PM CDT - 10/26/2008 11:59 PM CDT Hospital Encounter [facility] Julio Cesar King MD [address] [place] [id number] Postlaminectomy syndrome, cervical region Social History Tobacco Use Types Packs/Day Years Used Date Smoking Tobacco: Never Assessed Sex and Gender Information Value Date Recorded Sex Assigned at Not on file 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
--- OUTSIDE RECORDS SUMMARY | 2024-02-22 08:35 | XMS_ITS | Encounter Summary ---
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); Leukemia (HCC); Enlarged lymph nodes; Other malignant lymphoma of extranodal or solid organ sites Social History Tobacco Use Types Packs/Day Years Used Date Smoking Tobacco: Never Assessed Sex and Gender Information Value Date Recorded Sex Assigned at Not on file Legal Sex Male 9:45 AM CHARTER COORDINATOR Gender Identity Not on file Sexual Orientation Not on file documented as of this encounter Plan of Treatment Not on file documented as of this encounter Visit Diagnoses Diagnosis 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
--- OUTSIDE RECORDS SUMMARY | 2024-02-22 08:35 | XMS_ITS | Encounter Summary ---
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) Social History Tobacco Use Types Packs/Day Years Used Date Smoking Tobacco: Never Assessed Sex and Gender Information Value Date Recorded Sex Assigned at Not on file 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
--- OUTSIDE RECORDS SUMMARY | 2024-02-22 08:35 | XMS_ITS | Encounter Summary ---
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; Chronic lymphoid leukemia (HCC) Social History Tobacco Use Types Packs/Day Years Used Date Smoking Tobacco: Never Assessed Sex and Gender Information Value Date Recorded Sex Assigned at Not on file 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 Gender Identity Not on file Sexual Orientation Not on file documented as of this encounter Plan of Treatment Not on file documented as of this encounter Procedures Procedure Name Priority Date/Time Associated Diagnosis Comments CT ABDOMEN PELVIS W CONTRAST Routine 08/07/2012 9:[address] CHEST W CONTRAST Routine 08/07/2012 9 :37 AM CDT BLOOD CREATININE, POINT OF CARE Routine 08/07/2012 9:19 AM CDT DISCHARGE LABORATORY CUMULATIVE REPORT Routine 08/07/2012 12:00 AM CDT documented in this encounter Results * CT Abdomen Pelvis W Contrast (08/07/2012 9:37 AM CDT) Anatomical Region Laterality Modality Body N/A Computed Tomogra phy 08/07/2012 9:37 AM CDT Narrative 08/07/2012 10:58 AM CDT LAYNE OVIEDO M.D. KAYLYNN CHAVIS, FINAL REPORT The radiology attending physician has personally reviewed this study, and has reviewed and/or edited this written report and agrees with it. ACC# ??Date Time ??Exam [id number] Aug 07, 2012 09:37:[address] Abd & Pelvis with cont [id number] Aug 07, 2012 09:37:[address] Chest with contrast EXAMINATION: 1. Computed tomography scan of the chest with contrast. 2. Computed tomography scan of the abdomen and pelvis with contrast. 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 TECHNIQUE: Computed tomography scan of the chest, abdomen, and pelvis is performed after the uneventful, intravenous administration of 120 mL of Optiray 350 intravenous contrast according to the standard chest, abdomen, and pelvis protocol. COMPARISON: Comparison is made to computed tomography scan dated 08/23/2011. FINDINGS: There are multiple thyroid nodules. Redemonstrated are an increased number of left and right axillary and subpectoral lymph nodes which appear normal in morphology and size. There is no supraclavicular or hilar lymphadenopathy. There is a slightly increased number of normal appearing, nonenlarged lymph nodes within the superior aspect and subcarinal portion of the mediastinum. The heart is normal in size without pericardial effusion. There is no focal pneumonic consolidation, pleural effusion, or pneumothorax. The intrathoracic great vessels appear normal. There is no free intraperitoneal gas or fluid. The gallbladder is surgically absent and there are surgical clips in the gallbladder fossa. The liver, adrenal glands, and right kidney appear normal. The pancreas is mildly atrophic. There are multifocal calcifications within the spleen consistent with old granulomatous disease. There is a 1.4 cm nonobstructive renal stone within the inferior pole of the left kidney. The stomach, small bowel, and large bowel are normal in course and caliber without inflammation or obstruction. The appendix is well-visualized and appears normal. There is a slightly increased number of normal appearing retroperitoneal lymph nodes, unchanged from the prior exam. The intra-abdominal great vessels appear normal. There is minimal atherosclerotic calcification of the distal aorta and iliac arteries. The bladder is incompletely distended. There are prostatic calcifications. Redemonstrated is unchanged lymphadenopathy of the pelvis, obturator region, and inguinal regions bilaterally. For reference, a left inguinal node at table position -723.0 measures 1.6 x 2.3 cm, not substantially changed the prior exam. A right obturator node is present at table position -693.0 measuring 1.8 x 3.8 cm, also not substantially changed from the prior exam. There are no suspicious lytic or blastic osseous lesions. ?? IMPRESSION: 1. Increased number of nonenlarged lymph nodes throughout the axilla, subpectoral regions, and mediastinum. Unchanged pelvic and inguinal lymphadenopathy. 2. Nonobstructive inferior pole left renal stone measuring 1.3 cm, increased from the prior scans measurements of 8 mm. 3. Multiple indeterminate thyroid nodules. Recommend dedicated thyroid sonography to evaluate these for malignancy. ?? Requested By: BURT MCGINNIS M.D. Dictated By: ?? KAYLYNN CHAVIS, ?? on Aug ??2012 10:34A This document has been electronically signed by: LAYNE OVIEDO M.D. on Aug ??2012 10:58A Procedure Note Provider, MD Ilda - 07/03/2016 LAYNE OVIEDO M.D. KAYLYNN CHAVIS, FINAL REPORT The radiology attending physician has personally reviewed this study, and has reviewed and/or edited this written report and agrees with it. ACC# Date Time Exam [id number] Aug 07, 2012 09:37:[address] Abd & Pelvis with cont [id number] Aug 07, 2012 09:37:[address] Chest with contrast EXAMINATION: 1. Computed tomography scan of the chest with contrast. 2. Computed tomography scan of the abdomen and pelvis with contrast. 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 TECHNIQUE: Computed tomography scan of the chest, abdomen, and pelvis is performed after the uneventful, intravenous administration of 120 mL of Optiray 350 intravenous contrast according to the standard chest, abdomen, and pelvis protocol. COMPARISON: Comparison is made to computed tomography scan dated 08/23/2011. FINDINGS: There are multiple thyroid nodules. Redemonstrated are an increased number of left and right axillary and subpectoral lymph nodes which appear normal in morphology and size. There is no supraclavicular or hilar lymphadenopathy. There is a slightly increased number of normal appearing, nonenlarged lymph nodes within the superior aspect and subcarinal portion of the mediastinum. The heart is normal in size without pericardial effusion. There is no focal pneumonic consolidation, pleural effusion, or pneumothorax. The intrathoracic great vessels appear normal. There is no free intraperitoneal gas or fluid. The gallbladder is surgically absent and there are surgical clips in the gallbladder fossa. The liver, adrenal glands, and right kidney appear normal. The pancreas is mildly atrophic. There are multifocal calcifications within the spleen consistent with old granulomatous disease. There is a 1.4 cm nonobstructive renal stone within the inferior pole of the left kidney. The stomach, small bowel, and large bowel are normal in course and caliber without inflammation or obstruction. The appendix is well-visualized and appears normal. There is a slightly increased number of normal appearing retroperitoneal lymph nodes, unchanged from the prior exam. The intra-abdominal great vessels appear normal. There is minimal atherosclerotic calcification of the distal aorta and iliac arteries. The bladder is incompletely distended. There are prostatic calcifications. Redemonstrated is unchanged lymphadenopathy of the pelvis, obturator region, and inguinal regions bilaterally. For reference, a left inguinal node at table position -723.0 measures 1.6 x 2.3 cm, not substantially changed the prior exam. A right obturator node is present at table position -693.0 measuring 1.8 x 3.8 cm, also not substantially changed from the prior exam. There are no suspicious lytic or blastic osseous lesions. IMPRESSION: 1. Increased number of nonenlarged lymph nodes throughout the axilla, subpectoral regions, and mediastinum. Unchanged pelvic and inguinal lymphadenopathy. 2. Nonobstructive inferior pole left renal stone measuring 1.3 cm, increased from the prior scans measurements of 8 mm. 3. Multiple indeterminate thyroid nodules. Recommend dedicated thyroid sonography to evaluate these for malignancy. Requested By: BURT MCGINNIS M.D. Dictated By: KAYLYNN CHAVIS on Aug 07 2012 10:34A This document has been electronically signed by: LAYNE OVIEDO M.D. on Aug 07 2012 10:58A us Historical Provider MD CODY CT PROCEDURES Final R esult * CT Chest W Contrast (08/07/2012 9:37 AM CDT) Anatomical Region Laterality Modality Body N/A Computed Tomogra phy 08/07/2012 9:37 AM CDT Narrative 08/07/2012 10:58 AM CDT LAYNE OVIEDO M.D. KAYLYNN JINCOURT, FINAL REPORT The radiology attending physician has personally reviewed this study, and has reviewed and/or edited this written report and agrees with it. ACC# ??Date Time ??Exam [id number] Aug 07, 2012 09:37:[address] Abd & Pelvis with cont [id number] Aug 07, 2012 09:37:[address] Chest with contrast EXAMINATION: 1. Computed tomography scan of the chest with contrast. 2. Computed tomography scan of the abdomen and pelvis with contrast. 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 TECHNIQUE: Computed tomography scan of the chest, abdomen, and pelvis is performed after the uneventful, intravenous administration of 120 mL of Optiray 350 intravenous contrast according to the standard chest, abdomen, and pelvis protocol. COMPARISON: Comparison is made to computed tomography scan dated 08/23/2011. FINDINGS: There are multiple thyroid nodules. Redemonstrated are an increased number of left and right axillary and subpectoral lymph nodes which appear normal in morphology and size. There is no supraclavicular or hilar lymphadenopathy. There is a slightly increased number of normal appearing, nonenlarged lymph nodes within the superior aspect and subcarinal portion of the mediastinum. The heart is normal in size without pericardial effusion. There is no focal pneumonic consolidation, pleural effusion, or pneumothorax. The intrathoracic great vessels appear normal. There is no free intraperitoneal gas or fluid. The gallbladder is surgically absent and there are surgical clips in the gallbladder fossa. The liver, adrenal glands, and right kidney appear normal. The pancreas is mildly atrophic. There are multifocal calcifications within the spleen consistent with old granulomatous disease. There is a 1.4 cm nonobstructive renal stone within the inferior pole of the left kidney. The stomach, small bowel, and large bowel are normal in course and caliber without inflammation or obstruction. The appendix is well-visualized and appears normal. There is a slightly increased number of normal appearing retroperitoneal lymph nodes, unchanged from the prior exam. The intra-abdominal great vessels appear normal. There is minimal atherosclerotic calcification of the distal aorta and iliac arteries. The bladder is incompletely distended. There are prostatic calcifications. Redemonstrated is unchanged lymphadenopathy of the pelvis, obturator region, and inguinal regions bilaterally. For reference, a left inguinal node at table position -723.0 measures 1.6 x 2.3 cm, not substantially changed the prior exam. A right obturator node is present at table position -693.0 measuring 1.8 x 3.8 cm, also not substantially changed from the prior exam. There are no suspicious lytic or blastic osseous lesions. ?? IMPRESSION: 1. Increased number of nonenlarged lymph nodes throughout the axilla, subpectoral regions, and mediastinum. Unchanged pelvic and inguinal lymphadenopathy. 2. Nonobstructive inferior pole left renal stone measuring 1.3 cm, increased from the prior scans measurements of 8 mm. 3. Multiple indeterminate thyroid nodules. Recommend dedicated thyroid sonography to evaluate these for malignancy. ?? Requested By: BURT MCGINNIS M.D. Dictated By: ?? KAYLYNN CHAVIS, ?? on Aug ??2012 10:34A This document has been electronically signed by: LAYNE OVIEDO M.D. on Aug ??2012 10:58A Procedure Note Provider, MD Ilda - 07/03/2016 LAYNE OVIEDO M.D. KAYLYNN CHAVIS, FINAL REPORT The radiology attending physician has personally reviewed this study, and has reviewed and/or edited this written report and agrees with it. ACC# Date Time Exam [id number] Aug 07, 2012 09:37:[id number] Abd & Pelvis with cont [id number] Aug 07, 2012 09:37:[address] Chest with contrast EXAMINATION: 1. Computed tomography scan of the chest with contrast. 2. Computed tomography scan of the abdomen and pelvis with contrast. 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 TECHNIQUE: Computed tomography scan of the chest, abdomen, and pelvis is performed after the uneventful, intravenous administration of 120 mL of Optiray 350 intravenous contrast according to the standard chest, abdomen, and pelvis protocol. COMPARISON: Comparison is made to computed tomography scan dated 08/23/2011. FINDINGS: There are multiple thyroid nodules. Redemonstrated are an increased number of left and right axillary and subpectoral lymph nodes which appear normal in morphology and size. There is no supraclavicular or hilar lymphadenopathy. There is a slightly increased number of normal appearing, nonenlarged lymph nodes within the superior aspect and subcarinal portion of the mediastinum. The heart is normal in size without pericardial effusion. There is no focal pneumonic consolidation, pleural effusion, or pneumothorax. The intrathoracic great vessels appear normal. There is no free intraperitoneal gas or fluid. The gallbladder is surgically absent and there are surgical clips in the gallbladder fossa. The liver, adrenal glands, and right kidney appear normal. The pancreas is mildly atrophic. There are multifocal calcifications within the spleen consistent with old granulomatous disease. There is a 1.4 cm nonobstructive renal stone within the inferior pole of the left kidney. The stomach, small bowel, and large bowel are normal in course and caliber without inflammation or obstruction. The appendix is well-visualized and appears normal. There is a slightly increased number of normal appearing retroperitoneal lymph nodes, unchanged from the prior exam. The intra-abdominal great vessels appear normal. There is minimal atherosclerotic calcification of the distal aorta and iliac arteries. The bladder is incompletely distended. There are prostatic calcifications. Redemonstrated is unchanged lymphadenopathy of the pelvis, obturator region, and inguinal regions bilaterally. For reference, a left inguinal node at table position -723.0 measures 1.6 x 2.3 cm, not substantially changed the prior exam. A right obturator node is present at table position -693.0 measuring 1.8 x 3.8 cm, also not substantially changed from the prior exam. There are no suspicious lytic or blastic osseous lesions. IMPRESSION: 1. Increased number of nonenlarged lymph nodes throughout the axilla, subpectoral regions, and mediastinum. Unchanged pelvic and inguinal lymphadenopathy. 2. Nonobstructive inferior pole left renal stone measuring 1.3 cm, increased from the prior scans measurements of 8 mm. 3. Multiple indeterminate thyroid nodules. Recommend dedicated thyroid sonography to evaluate these for malignancy. Requested By: BURT MCGINNIS M.D. Dictated By: KAYLYNN CHAVIS on Aug 07 2012 10:34A This document has been electronically signed by: LAYNE OVIEDO M.D. on Aug 07 2012 10:58A us Historical Provider IMG CT PROCEDURES Final R esult * (ABNORMAL) Blood creatinine, point of care (08/07/2012 9:19 AM CDT) Creatinine, POC, bld 0.7(L) 0.7 - 1.3 mg/dl HISTORICAL RESULTS Blood specimen (specimen) 08/07/2012 9:19 AM CDT us Burt Fabian Mcginnis MD PhD LAB BLOOD ORDERABLES Final Result HISTORICAL RESULTS * Discharge Laboratory Cumulative Report (08/07/2012 12:00 AM CDT) 08/07/2012 Narrative HISTORICAL RESULTS - 08/07/2012 11:19 AM CDT ?[facility] ?Department of Laboratories ? [address] [facility] [address] ? [place] [address] Patient Name: ??MICHELINE OLIVO [facility] Rec Number: [id number] Fin Number: ?[id number] Date: ?1950 Sex/Age: ? Male 61 years Admit Date: ?08/07/2012 Discharge Date: 08/07/2012 Doctor: ?<Unknown> Facility: ?[facility] Location: ?[facility] Chart Printed: 08/07/2012 11:19 ?? * Abnormal ?? C Critical ?? f Footnote ?? ^ Corrected ?? L Low ?? H High ? i Interp Data ?? @ Reference Lab ?Chart Type:Cumulative ?POINT OF CARE TESTS ? Chemistry ?Test: Creat iPOC ? Reference: [0.7-1.3] ? Units: mg/dL 08/07/2012 ?? 09:19:00 ?? 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 difficile Comment:Backloaded December 21, 2010 09/21/2010 09/21/2010 documented as of this encounter
--- OUTSIDE RECORDS SUMMARY | 2024-02-22 08:35 | XMS_ITS | Encounter Summary ---
Author Organization [facility] Facility Care Team Providers Care Make Up Worker Name Role Phone Unavailable Primary Care Provider Unavailabl e Encounter Details Date Type Department Care Team (Late st Contact Info) Description 04/26/2007 5:06 PM SPECIAL NEEDS BABYSITTER - 04/30/2007 2:37 PM [facility] Hospital [facility] [address] [facility] [address] [place] [address] Pneumonia due to infectious organism; Other lymphoid leukemia; Hypotension; Anemia of other chronic disease Social History Tobacco Use Types Packs/Day Years Used Date Smoking Tobacco: Never Assessed Sex and Gender Information Value Date Recorded Sex Assigned at Not on file 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
--- OUTSIDE RECORDS SUMMARY | 2024-02-22 08:35 | XMS_ITS | Encounter Summary ---
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 difficile Comment:Backloaded December 21, 2010 09/21/2010 09/21/2010 documented as of this encounter
--- OUTSIDE RECORDS SUMMARY | 2024-02-22 08:35 | XMS_ITS | Encounter Summary ---
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
--- OUTSIDE RECORDS SUMMARY | 2024-02-22 08:35 | XMS_ITS | Encounter Summary ---
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
--- OUTSIDE RECORDS SUMMARY | 2024-02-22 08:35 | XMS_ITS | Encounter Summary ---
Author Organization [facility] Facility Care Team Providers Care Child Development Consultant Name Role Phone Unavailable Primary Care Provider Unavailabl e Encounter Details Date Type Department Care Team (Latest Contact Info) Description 12/07/2008 11:39 AM CDT - 12/07/2008 11:59 PM CDT Hospital Encounter [facility] Julio Cesar King MD [address] [place] [id number] Postlaminectomy syndrome, cervical region Social History Tobacco Use Types Packs/Day Years Used Date Smoking Tobacco: Never Assessed Sex and Gender Information Value Date Recorded Sex Assigned at Not on file 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
--- OUTSIDE RECORDS SUMMARY | 2024-02-22 08:35 | XMS_ITS | Encounter Summary ---
Author Organization [facility] Facility Care Team Providers Care Ship Fitter Name Role Phone Unavailable Primary Care Provider Unavailabl e Encounter Details Date Type Department Care Team (Late st Contact Info) Description 10/21/2008 - 10/21/2008 11:59 PM CDT Hospital Encounter [facility] Tammy aFlcon MD [address] [facility] [address] [place] [address] Lymphosarcoma, unspecified site, extranodal and solid organ sites; Other malignant lymphoma of extranodal or solid organ sites Social History Tobacco Use Types Packs/Day Years Used Date Smoking Tobacco: Never Assessed Sex and Gender Information Value Date Recorded Sex Assigned at Not on file 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
--- OUTSIDE RECORDS SUMMARY | 2024-02-22 08:35 | XMS_ITS | Encounter Summary ---
Author Organization 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
--- OUTSIDE RECORDS SUMMARY | 2024-02-22 08:35 | XMS_ITS | Encounter Summary ---
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 difficile Comment:Backloaded December 21, 2010 09/21/2010 09/21/2010 documented as of this encounter
--- OUTSIDE RECORDS SUMMARY | 2024-02-22 08:35 | XMS_ITS | Encounter Summary ---
Author Organization [facility] Facility Care Team Providers Care Rental Coordinator Name Role Phone Unavailable Primary Care Provider Unavailabl e Encounter Details Date Type Department Care Team (Latest Contact Info) Description 01/11/2009 10:17 AM GLUER - 01/11/2009 11:59 PM GLUER Hospital Encounter [facility] Julio Cesar King MD [address] [place] [id number] Postlaminectomy syndrome, cervical region Social History Tobacco Use Types Packs/Day Years Used Date Smoking Tobacco: Never Assessed Sex and Gender Information Value Date Recorded Sex Assigned at Not on file Legal Sex Male 9:45 AM GLUER Gender Identity Not on file Sexual Orientation Not on file documented as of this encounter Plan of Treatment Not on file documented as of this encounter Visit Diagnoses Diagnosis Postlaminectomy syndrome, cervical region documented in this encounter
--- OUTSIDE RECORDS SUMMARY | 2024-02-22 08:35 | XMS_ITS | Encounter Summary ---
Author Organization [facility] Facility Care Team Providers Care Bank President Name Role Phone Unavailable Primary Care Provider Unavailabl e Encounter Details Date Type Department Care Team (Late st Contact Info) Description 04/22/2008 - 03/03/2009 11:59 PM RAIL OPERATOR Hospital Encounter 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
--- OUTSIDE RECORDS SUMMARY | 2024-02-22 08:35 | XMS_ITS | Encounter Summary ---
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
--- OUTSIDE RECORDS SUMMARY | 2024-02-22 08:35 | XMS_ITS | Encounter Summary ---
Author Organization [facility] Facility Care Team Providers Care Reporting Lead Name Role Phone Unavailable Primary Care Provider Unavailabl e Encounter Details Date Type Department Care Team (Late st Contact Info) Description 03/28/2006 - 03/03/2007 11:59 PM RADIOSONDE SPECIALIST Hospital Encounter [facility] Tammy Falcon MD [address] [facility] [address] [place] [phone] Social History Tobacco Use Types Packs/Day Years Used Date Smoking Tobacco: Never Assessed Sex and Gender Information Value Date Recorded Sex Assigned at Not on file Legal Sex Male 9:45 AM RADIOSONDE SPECIALIST Gender Identity Not on file Sexual Orientation Not on file documented as of this encounter Plan of Treatment Not on file documented as of this encounter Visit Diagnoses Not on filedocumented in this encounter
--- OUTSIDE RECORDS SUMMARY | 2024-02-22 08:35 | XMS_ITS | Encounter Summary ---
Author Organization [facility] Facility Care Team Providers Care Learning Support Resource Room Teacher Name Role Phone Unavailable Primary Care Provider Unavailabl e Encounter Details Date Type Department Care Team (Late st Contact Info) Description 03/06/2007 - 03/06/2007 11:59 PM ALLIANCES CONSULTANT Hospital Encounter [facility] Tammy Falcon MD [address] [facility] [address] [place] [phone] Social History Tobacco Use Types Packs/Day Years Used Date Smoking Tobacco: Never Assessed Sex and Gender Information Value Date Recorded Sex Assigned at Not on file Legal Sex Male 9:45 AM ALLIANCES CONSULTANT Gender Identity Not on file Sexual Orientation Not on file documented as of this encounter Plan of Treatment Not on file documented as of this encounter Visit Diagnoses Not on filedocumented in this encounter
--- OUTSIDE RECORDS SUMMARY | 2024-02-22 08:35 | XMS_ITS | Encounter Summary ---
Author Organization [facility] Facility Care Team Providers Care Research Clerk Name Role Phone Unavailable Primary Care Provider Unavailabl e Encounter Details Date Type Department Care Team (Latest Contact Info) Description 09/14/2008 9:51 AM CDT - 09/14/2008 11:59 PM CDT Hospital Encounter [facility] Julio Cesar King MD [address] [place] [phone] Postlaminectomy syndrome, cervical region Social History Tobacco Use Types Packs/Day Years Used Date Smoking Tobacco: Never Assessed Sex and Gender Information Value Date Recorded Sex Assigned at Not on file 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
--- OUTSIDE RECORDS SUMMARY | 2024-02-22 08:35 | XMS_ITS | Encounter Summary ---
Author Organization [facility] Facility Care Team Providers Care Pool Servicer Name Role Phone Unavailable Primary Care Provider Unavailabl e Encounter Details Date Type Department Care Team (Late st Contact Info) Description 09/04/2007 - 09/04/2007 11:59 PM CDT Hospital Encounter [facility] Tammy Falcon MD [address] [place] [address] [place] [phone] Social History Tobacco Use Types Packs/Day Years Used Date Smoking Tobacco: Never Assessed Sex and Gender Information Value Date Recorded Sex Assigned at Not on file 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
--- OUTSIDE RECORDS SUMMARY | 2024-02-22 08:35 | XMS_ITS | Encounter Summary ---
Author Organization [facility] Facility Care Team Providers Care Housing Director Name Role Phone Unavailable Primary Care Provider Unavailabl e Encounter Details Date Type Department Care Team (Late st Contact Info) Description 08/03/2008 - 08/06/2008 12:01 AM CDT Hospital Encounter [facility] Julio Cesar King MD [address] [place] [phone] Social History Tobacco Use Types Packs/Day Years Used Date Smoking Tobacco: Never Assessed Sex and Gender Information Value Date Recorded Sex Assigned at Not on file Legal Sex Male 9:45 AM BLOWN FILM EXTRUSION OPERATOR Gender Identity Not on file Sexual Orientation Not on file documented as of this encounter Plan of Treatment Not on file documented as of this encounter Visit Diagnoses Not on filedocumented in this encounter
== END 2024-02-17 09:56 | disposition home or self-care (01) ==
PROVIDERS: PCP Family Medicine; Visit Provider Internal Medicine Gastroenterology
PROC: 0DJD8ZZ Inspection of Lower Intestinal Tract, Via Natural or Artificial Opening Endoscopic (ICD-10-PCS; CPT 45378; principal; 2024-02-17 09:00)
DX: Z12.11 Encounter for screening for malignant neoplasm of colon (principal); D12.5 Benign neoplasm of sigmoid colon; K64.8 Other hemorrhoids; C91.10 Chronic lymphocytic leukemia of B-cell type not having achieved remission; Z87.891 Personal history of nicotine dependence
CPT/HCPCS: 45385; 88305; 88342; J2003; J2704; J7120